=== PATIENT | female | born 1965 | race Caucasian/White ===

== ENCOUNTER 2016-11-09 06:09 | Day surgery (SDC) | payer OTHER ==
[2016-11-07 13:57] VITALS: BMI 31.4
[2016-11-09 06:58] VITALS: BP 113/57; PULSE 68; TEMP 98
[2016-11-09] MEDS ORDERED: ROPIVACAINE HCL 0.5% 30ML VIAL ONE (07:02)
[2016-11-09] MEDS ORDERED: MIDAZOLAM HCL 2 MG/2 ML SINGLE DOSE VIAL ONE ×2 (07:39)
--- NOTE | 2016-11-09 07:47 | HP ---
Admitting History and Physical - Primary Care Physician PCP: Derrek Patterson - Admission Chief Complaint: Left shoulder pain History of Present Illness: 51 year old female with PMHx noted below. C/o chronic left shoulder pain. Here today for elective LEFT shoulder arthroscopy/decompression. 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: Peripheral Neuropathy Cardiovascular: Yes: HTN, Hyperlipdemia Pulmonary: Yes: Asthma Gastrointestinal: Yes: GERD Renal/: Yes: Renal Failure, Hemodialysis Reproductive: Yes: Ectopic (x2) ...LMP: 12/01/14 ...: No Endocrine: Yes: Diabetes Mellitus - Past Surgical History Past Surgical History: Yes: AV Fistula/Graft (LUE), (x3) - Smoking History Smoking history: Current every day smoker Have you smoked in the past 12 months: Yes Aproximately how many cigarettes per day: 6 - Alcohol/Substance Use Hx Alcohol Use: No History of Substance Use: reports: None - Social History ADL: Independent History of Recent Travel: No Home Medications - Allergies Allergies/Adverse Reactions: Allergies Allergy/AdvReac Type Severity Reaction Status Date / Time No Known Drug Allergies Allergy Verified 11/09/16 07:05 - Home Medications Home Medications: Ambulatory Orders Clonidine HCl 0.2 mg PO TID 06/05/14 Hydralazine HCl [Apresoline -] 100 mg PO TID tablet 08/25/15 Lipase/Protease/Amylase [Maximilian Medrano 6,000 Units Capsule] 2 cap PO TIDCM capsule. 08/25/15 Bisacodyl [Dulcolax] 5 mg PO DAILY PRN #20 tablet. 10/27/15 Insulin Sliding Scale [Novolog Vial Sliding Scale -] 1 vial SQ ACHS #100 units 12/31/15 Pantoprazole Sodium [Protonix -] 40 mg PO DAILY #14 tablet.ec 01/31/16 Oxycodone HCl/Acetaminophen [Percocet 5-325 mg Tablet] 1 tab PO Q6H #120 tablet MDD 4 02/29/16 Insulin (Levemir) [Levemir Vial] 30 units SQ HS 11/07/16 Metoclopramide HCl [Reglan] 10 mg PO DAILY PRN 11/07/16 Nifedipine ER [Procardia XL -] 60 mg PO DAILY 07/17/17 Family Disease History - Family Disease History Family Disease History: CA: Father (colon cancer) Review of Systems - Review of Systems Constitutional: reports: No Symptoms Eyes: reports: No Symptoms HENT: reports: No Symptoms Neck: reports: No Symptoms Cardiovascular: reports: No Symptoms Respiratory: reports: Wheezing Gastrointestinal: reports: No Symptoms Genitourinary: reports: No Symptoms Breasts: reports: No Symptoms Reported Musculoskeletal: reports: No Symptoms Integumentary: reports: No Symptoms Neurological: reports: No Symptoms Endocrine: reports: No Symptoms Hematology/Lymphatic: reports: No Symptoms Psychiatric: reports: No Symptoms Physical Examination Vital Signs: Vital Signs Temperature 98.0 F 11/09/16 07:05 Pulse Rate 68 11/09/16 07:05 Respiratory Rate 20 11/09/16 07:05 Blood Pressure 113/57 11/09/16 07:05 O2 Sat by Pulse Oximetry (%) 98 11/09/16 07:01 Constitutional: Yes: Well Nourished, No Distress, Calm Eyes: Yes: WNL, Conjunctiva Clear, EOM Intact HENT: Yes: WNL, Atraumatic, Normocephalic Neck: Yes: WNL, Supple, Trachea Midline Cardiovascular: Yes: WNL, Regular Rate and Rhythm Respiratory: Yes: Wheezes (Expiratory; all mendez) Gastrointestinal: Yes: WNL, Normal Bowel Sounds, Soft Renal/: Yes: WNL Musculoskeletal: Yes: WNL Extremities: Yes: WNL Edema: No Peripheral Pulses WNL: Yes Integumentary: Yes: WNL, Bruising (Note: ecchymosis to lue s/p HD access av fistula) Neurological: Yes: WNL, Alert, Oriented ...Motor Strength: WNL Psychiatric: Yes: WNL, Alert, Oriented Labs: CBC, BMP 11/09/16 06:43 Problem List - Problems (1) Shoulder pain, left Assessment/Plan: PRE-OP for LEFT shoulder arthroscopy with decompression Respiratory called to administer breathing treatment at anesthesia request NPO / IVF Code(s): M25.512 - PAIN IN LEFT SHOULDER (2) Type 1 diabetes mellitus with diabetic nephropathy Code(s): E10.21 - TYPE 1 DIABETES MELLITUS WITH DIABETIC NEPHROPATHY (3) Anemia in chronic kidney disease (CKD) Code(s): N18.9 - CHRONIC KIDNEY DISEASE, UNSPECIFIED D63.1 - ANEMIA IN CHRONIC KIDNEY DISEASE (4) End stage renal disease on dialysis Code(s): N18.6 - END STAGE RENAL DISEASE Z99.2 - DEPENDENCE ON RENAL DIALYSIS
[2016-11-09] MEDS ORDERED: ALBUTEROL SO4 2.5/IPRATROPIUM 0.5 INH SOL 3 ML VIAL.NEB. NEB ONE ×2 (07:59→08:00)
== END 2016-11-09 09:00 | disposition home or self-care (01) ==
LOC: JASU-SURG 06:09
PROVIDERS: ATTEND Orthopaedic Surgery
PROC: 0RJK4ZZ Inspection of Left Shoulder Joint, Percutaneous Endoscopic Approach (ICD-10-PCS; principal; 2016-11-09)
DX: Z53.8 Procedure and treatment not carried out for other reasons (principal)
CPT/HCPCS: 36415; 84132; 94640

== ENCOUNTER 2016-12-14 08:00 | Inpatient (IN) | payer OTHER ==
[2016-12-14 08:08] VITALS: BMI 32.3
--- NOTE | 2016-12-14 09:04 | PDOC ---
History of Present Illness - General History Source: Patient Exam Limitations: No Limitations - History of Present Illness Initial Comments: 12/14/16 09:09 The patient is a 51 year old female, with a significant past medical history of ESRD (M,W,F), GERD, HTN, and DM who presents to the emergency department with elevated for blood sugar. The patient reports being scheduled for an orthopedic right shoulder surgery, and was sent to the ER by after blood work showed elevated blood sugar. The patient reports having dialysis about 2 days ago. She denies any complaints of pain. She denies recent fevers, chills, headache or dizziness. She denies recent nausea, vomit, diarrhea or constipation. She denies recent dysuria, frequency, urgency or hematuria. She denies recent chest pain or shortness of breath. Allergies: NKA Past surgical history: None reported. Social history: Nonsmoker. Denies EtOH use and recreational drug use. Primary Care Physician: Orthopedist: <Bassem Mckeon - Last Filed: 12/14/16 09:09> <Hilary Naqvi - Last Filed: 12/14/16 11:27> <Bety Kumar - Last Filed: 12/14/16 11:51> - General Chief Complaint: Revisit, Lab Variance Stated Complaint: IRREGULAR LAB Time Seen by Provider: 12/14/16 08:27 Past History <Bassem Mckeon - Last Filed: 12/14/16 09:09> <Hilary Naqvi - Last Filed: 12/14/16 11:27> - Past Medical History Anemia: Yes Asthma: Yes Cancer: No Cardiac Disorders: No CVA: No COPD: No CHF: No Dementia: No Diabetes: Yes Dialysis: Yes (m,w,f) GI Disorders: Yes (gerd gastroparesis) Disorders: No HTN: Yes Hypercholesterolemia: Yes Liver Disease: No Suicide Attempt (Hx): No Seizures: No Thyroid Disease: No - Surgical History Orthopedic Surgery: Yes (hand sx) - Immunization History Immunization Up to Date: Yes - Psycho/Social/Smoking Cessation Hx Anxiety: No Suicidal Ideation: No Smoking Status: No Smoking History: Current some day smoker Have you smoked in the past 12 months: Yes Number of Cigarettes Smoked Daily: 6 Cigars Per Day: 0 Information on smoking cessation initiated: No 'Breaking Loose' booklet given: 11/07/16 Hx Alcohol Use: No Drug/Substance Use Hx: No Substance Use Type: None Hx Substance Use Treatment: No <VirgilioelizabethBety - Last Filed: 12/14/16 11:51> - Past Medical History Allergies/Adverse Reactions: Allergies Allergy/AdvReac Type Severity Reaction Status Date / Time No Known Drug Allergies Allergy Verified 12/14/16 08:04 Home Medications: Ambulatory Orders Clonidine HCl 0.2 mg PO TID 06/05/14 Hydralazine HCl [Apresoline -] 100 mg PO TID tablet 08/25/15 Lipase/Protease/Amylase [Maximilian Medrano 6,000 Units Capsule] 2 cap PO TIDCM capsule. 08/25/15 Bisacodyl [Dulcolax] 5 mg PO DAILY PRN #20 tablet. 10/27/15 Insulin Sliding Scale [Novolog Vial Sliding Scale -] 1 vial SQ ACHS #100 units 12/31/15 Pantoprazole Sodium [Protonix -] 40 mg PO DAILY #14 tablet.ec 01/31/16 Oxycodone HCl/Acetaminophen [Percocet 5-325 mg Tablet] 1 tab PO Q6H #120 tablet MDD 4 02/29/16 Insulin (Levemir) [Levemir Vial] 30 units SQ HS 11/07/16 Metoclopramide HCl [Reglan] 10 mg PO DAILY PRN 11/07/16 Nifedipine ER [Procardia XL -] 60 mg PO DAILY 11/07/16 Review of Systems - Review of Systems Able to Perform ROS?: Yes Comments:: 12/14/16 09:09 GENERAL/CONSTITUTIONAL: No fever or chills. No weakness. HEAD, EYES, EARS, NOSE AND THROAT: No change in vision. No ear pain or discharge. No sore throat. CARDIOVASCULAR: No chest pain or shortness of breath. RESPIRATORY: No cough, wheezing, or hemoptysis. GASTROINTESTINAL: No nausea, vomiting, diarrhea or constipation. GENITOURINARY: No dysuria, frequency, or change in urination. MUSCULOSKELETAL: No joint or muscle swelling or pain. No neck or back pain. SKIN: No rash NEUROLOGIC: No headache, vertigo, loss of consciousness, or change in strength/ sensation. ENDOCRINE: No increased thirst. No abnormal weight change. HEMATOLOGIC/LYMPHATIC: No anemia, easy bleeding, or history of blood clots. ALLERGIC/IMMUNOLOGIC: No hives or skin allergy. <Bassem Mckeon - Last Filed: 12/14/16 09:09> *Physical Exam - Vital Signs Last Vital Signs Temp Pulse Resp BP Pulse Ox 98.1 F 72 20 155/81 98 12/14/16 08:04 12/14/16 08:04 12/14/16 08:04 12/14/16 08:04 12/14/16 08:04 - Physical Exam Comments: 12/14/16 09:10 GENERAL: Awake, alert, and fully oriented, drowsy but arousable. HEAD: No signs of trauma EYES: PERRLA, EOMI, sclera anicteric, conjunctiva clear ENT: Auricles normal inspection, hearing grossly normal, nares patent, oropharynx clear without exudates. Moist mucosa NECK: Normal ROM, supple, no lymphadenopathy, JVD, or masses LUNGS: Breath sounds equal, clear to auscultation bilaterally. No wheezes, and no crackles HEART: Regular rate and rhythm, normal S1 and S2, no murmurs, rubs or gallops ABDOMEN: Soft, nontender, normoactive bowel sounds. No guarding, no rebound. No masses EXTREMITIES: LUE fistula good thrill no erythema. Normal range of motion, no edema. No clubbing or cyanosis. No cords, erythema, or tenderness NEUROLOGICAL: Cranial nerves II through XII grossly intact. Normal speech, normal gait SKIN: Warm, Dry, normal turgor, no rashes or lesions noted. <Bassem Mckeon - Last Filed: 12/14/16 09:09> - Vital Signs Last Vital Signs Temp Pulse Resp BP Pulse Ox 98.1 F 72 20 155/81 98 12/14/16 08:04 12/14/16 08:04 12/14/16 08:04 12/14/16 08:04 12/14/16 08:04 <Hilary Naqvi - Last Filed: 12/14/16 11:27> - Vital Signs Last Vital Signs Temp Pulse Resp BP Pulse Ox 98.1 F 72 20 155/81 98 12/14/16 08:04 12/14/16 08:04 12/14/16 08:04 12/14/16 08:04 12/14/16 08:04 <Bety Kumar - Last Filed: 12/14/16 11:51> ED Treatment Course - LABORATORY CBC & Chemistry Diagram: 12/14/16 09:23 12/14/16 09:23 - ADDITIONAL ORDERS Additional order review: Laboratory Results 12/14/16 12/14/16 09:23 09:15 VBG pH 7.29 L POC VBG pCO2 51.4 D POC VBG pO2 42.2 Mixed VBG HCO3 23.7 Sodium 133 L Potassium 7.6 H* Chloride 100 Carbon Dioxide 24 Anion Gap 9 BUN 59 H Creatinine 7.6 H* D Creat Clearance w eGFR 5.63 Random Glucose 332 H* D Calcium 8.6 Total Bilirubin 0.5 AST 26 D ALT 60 D Alkaline Phosphatase 223 H D Total Protein 7.4 Albumin 3.6 12/14/16 09:23 RBC 2.62 L D MCV 97.6 H MCHC 32.5 RDW 14.8 D MPV 8.7 Neutrophils % 84.4 H Lymphocytes % 8.6 D Monocytes % 6.4 Eosinophils % 0.1 Basophils % 0.5 - RADIOLOGY Radiology Studies Ordered: 12/14/16 10:37 Chest X-ray Read and reviewed by Dr. Naylor Radiograph Interpretation: 12/14/16 10:38 Cardiomegaly and mild increased interstitial lung markings which may reflect CHF. <Hilary Naqvi - Last Filed: 12/14/16 11:27> - LABORATORY CBC & Chemistry Diagram: 12/14/16 09:23 12/14/16 09:23 - RADIOLOGY Radiology Studies Ordered: Category Date Time Status CHEST PA & LAT [RAD] Stat Radiology 12/14/16 08:56 Ordered <Bety Kumar - Last Filed: 12/14/16 11:51> Medical Decision Making - Medical Decision Making 12/14/16 10:43 Placed call to patient's sterilization technician, Dr. Barrios. Case discussed, Dr. Barrios requests we page Dr. Arredondo. Dr. Arredondo paged overhead in hospital. Awaiting callback. 12/14/16 10:57 Second overhead page to Dr. Arredondo. Awaiting callback. 12/14/16 11:12 Left message with patient's surgeon, Dr. Ray, with OR team. Awaiting callback. 12/14/16 11:27 Third overhead page to Dr. Arredondo. Awaiting callback. If no callback, will try cell#. <Hilary Naqvi - Last Filed: 12/14/16 11:27> - Medical Decision Making 12/14/16 08:56 51 yo F h/o DM HTN ESRD ( dialysis MWF ) scheduled for shoulder surgery today with dr ray, found to have high potassium and and high sugars. no current complaints. no n/v no f/c no sob no cp last dialysis was 2 days ago., due for dialysis today. on exam pt drowsy but arousable. lungs clear heart regular. abd soft Nt ext wwp. left upper fistula bruit. plan: differerential: hyperkalemia, hemolysis. pt felecia needs dialysis today. will d/w dr ray ( ortho surgeon) and pt sterilization technician 12/14/16 09:29 <Bety Kumar - Last Filed: 12/14/16 11:51> *DC/Admit/Observation/Transfer - Attestations Scribe Attestion: 12/14/16 09:10 Documentation prepared by Bassem Mckeon, acting as biomedical equipment support specialist for Bety Kumar MD. <Bassem Mckeon - Last Filed: 12/14/16 09:09> - Attestations Scribe Attestion: 12/14/16 10:40 Documentation prepared by Hilary Naqvi, acting as biomedical equipment support specialist for Bety Kumar MD. <Hilary Naqvi - Last Filed: 12/14/16 11:27> - Discharge Dispostion Admit: Yes <Bety Kumar - Last Filed: 12/14/16 11:51> Diagnosis at time of Disposition: Hyperkalemia, Hyperglycemia, End-stage renal disease
[2016-12-14 09:34] LABS: BASOPHIL 0.5 % (0-2.0); EOSINOPHIL 0.1 % (0-4.5); MCH 31.7 pg (25.7-33.7); MCHC 32.5 g/dl (32.0-36.0); MEAN CELL VOLUME 97.6 fl (80-96); MEAN PLT VOLUME 8.7 fl (7.5-11.1); NEUTROPHILS 84.4 % (42.8-82.8); PLATELET COUNT 218 K/MM3 (134-434); RDW 14.8 % (11.6-15.6); WHITE BLOOD COUNT 8.3 K/mm3 (4.0-10.0)
[2016-12-14 09:40] LABS: VENOUS BLOOD GAS HCO3 23.7 meq/L (19-25)
[2016-12-14 09:45] LABS: VENOUS PH 7.29 (7.32-7.42)
[2016-12-14 10:00] LABS: ALBUMIN 3.6 g/dl (3.4-5.0); ANION GAP 9 (8-16); BILIRUBIN,TOTAL 0.5 mg/dL (0.2-1.0); CALCIUM 8.6 mg/dL (8.5-10.1); CO2 24 mmol/L (21-32); SGOT/AST 26 U/L (15-37); SGPT/ALT 60 U/L (12-78); TOT PROT 7.4 g/dl (6.4-8.2)
[2016-12-14 10:06] LABS: ALK PHOS 223 U/L (45-117)
--- NOTE | 2016-12-14 10:06 | EKG ---
Test Reason : Blood Pressure : / mmHG Vent. Rate : 073 BPM Atrial Rate : 073 BPM P-R Int : 174 ms QRS Dur : 110 ms QT Int : 412 ms P-R-T Axes : 043 017 063 degrees QTc Int : 453 ms NORMAL SINUS RHYTHM CANNOT RULE OUT ANTERIOR INFARCT , AGE UNDETERMINED ABNORMAL ECG WHEN COMPARED WITH ECG OF 28-DEC-2015 06:38, VENT. RATE HAS DECREASED BY 36 BPM QRS DURATION HAS INCREASED NONSPECIFIC T WAVE ABNORMALITY NO LONGER EVIDENT IN LATERAL LEADS Confirmed by DENISSE GLASGOW MD ([id number]) on 12/14/2016 10:05:28 AM Referred By: Confirmed By:DENISSE GLASGOW MD
[2016-12-14 10:19] LABS: GLUCOSE,RANDOM 332 mg/dL (74-106)
[2016-12-14 10:20] LABS: CREATININE 7.6 mg/dL (0.55-1.02)
[2016-12-14] MEDS ORDERED: INSULIN REGULAR HUMAN 100 UNITS/ML *VIAL IVPUSH ONE (10:20)
[2016-12-14] MEDS ORDERED: CALCIUM GLUCONATE 10% - 1,000 MG/10 ML VIAL IVPB ONE (10:38)
[2016-12-14] MEDS ORDERED: ALBUTEROL SO4 0.083% IH SOL 2.5 MG/3 ML VIAL.NEB. NEB ONE ×2 (10:38→10:45)
[2016-12-14] MEDS ORDERED: INSULIN REGULAR HUMAN 100 UNITS/ML *VIAL ONE (10:45)
[2016-12-14] MEDS ORDERED: CALCIUM GLUCONATE 10% - 1,000 MG/10 ML VIAL ONE (10:45)
--- NOTE | 2016-12-14 12:14 | HP ---
CHIEF COMPLAINT: Elevated blood sugar and potassium PCP: Dr. Patterson HISTORY OF PRESENT ILLNESS: This is a 51 year old female with PMHx of HTN, IDDM, ESRD (HD M,W,F), diabetic gastroparesis who presented to the ED per Dr. Rya for hyperglycemia and hyperkalemia. Today is a dialysis day for the patient. The patient was scheduled for left shoulder elective arthoscopy/decompression this morning and with labs prior to surgery it was noted that the patient had a sugar of 409 and a potassium of 6.8. The patient came to the ED and was found to have a potassium of 7.6 and Cr of 7.6. Patient was lethargic, however had no complaints at the time. Her EKG was normal sinus rhythm with an increase in qrs interval. No peaked t-waves seem. Recent Travel: refusing to answer PAST MEDICAL HISTORY: as above PAST SURGICAL HISTORY: refusing to answer Social History: Smoking: denies Alcohol: denies Drugs: denies Family History: refusing to answer Allergies No Known Drug Allergies Allergy (Verified 12/14/16 08:04) HOME MEDICATIONS: Home Medications Medication Instructions Recorded Ammonium Lactate Cream [Lac-Hydrin] 1 applic TP BID 12/14/16 Baclofen 10 mg PO DAILY 12/14/16 Bisacodyl [Dulcolax -] 5 mg PO DAILY 12/14/16 Calcium Acetate 667 mg PO AC 12/14/16 Clonidine HCl [Catapres -] 0.4 mg PO TID 12/14/16 Dexlansoprazole [Dexilant] 60 mg PO DAILY 12/14/16 Gabapentin 600 mg PO BID 12/14/16 Hydralazine HCl 100 mg PO TID 12/14/16 Magnesium Oxide [Magnesium] 400 mg PO MOWEFR 12/14/16 Melatonin 3 mg PO HS 12/14/16 Metoclopramide HCl [Reglan -] 10 mg PO ASDIR 12/14/16 Nifedipine [Nifedipine ER] 60 mg PO DAILY 12/14/16 Quetiapine Fumarate [Seroquel -] 25 mg PO HS 12/14/16 Ramipril [Altace] 5 mg PO DAILY 12/14/16 Ranitidine [Zantac -] 150 mg PO DAILY 12/14/16 Sennosides [Senna] 2 tab PO HS 12/14/16 Vitamin E 400 unit PO DAILY 12/14/16 REVIEW OF SYSTEMS CONSTITUTIONAL: Absent: fever, chills, diaphoresis, generalized weakness, malaise, loss of appetite, weight change HEENT: Absent: rhinorrhea, nasal congestion, throat pain, throat swelling, difficulty swallowing, mouth swelling, ear pain, eye pain, visual changes CARDIOVASCULAR: Absent: chest pain, syncope, palpitations, irregular heart rate , lightheadedness, peripheral edema RESPIRATORY: Absent: cough, shortness of breath, dyspnea with exertion, orthopnea, wheezing, stridor, hemoptysis GASTROINTESTINAL:Absent: abdominal pain, abdominal distension, nausea, vomiting , diarrhea, constipation, melena, hematochezia GENITOURINARY: Absent: dysuria, frequency, urgency, hesitancy, hematuria, flank pain, genital pain MUSCULOSKELETAL: Absent: myalgia, arthralgia, joint swelling, back pain, neck pain SKIN: Absent: rash, itching, pallor HEMATOLOGIC/IMMUNOLOGIC: Absent: easy bleeding, easy bruising, lymphadenopathy, frequent infections ENDOCRINE:Absent: unexplained weight gain, unexplained weight loss, heat intolerance, cold intolerance NEUROLOGIC: Absent: headache, focal weakness or paresthesias, dizziness, unsteady gait, seizure, mental status changes, bladder or bowel incontinence PSYCHIATRIC: Absent: anxiety, depression, suicidal or homicidal ideation, hallucinations. PHYSICAL EXAMINATION GENERAL: Awake, alert, in no acute distress. HEAD: Normal with no signs of trauma. EYES: Pupils equal, round and reactive to light EARS, NOSE, THROAT: Ears normal, nares patent. Moist mucous membranes. NECK: Normal range of motion LUNGS: Breath sounds equal, clear to auscultation bilaterally. No wheezes, and no crackles. No accessory muscle use. HEART: Regular rate and rhythm, normal S1 and S2 ABDOMEN: Refused MUSCULOSKELETAL: Normal range of motion at all joints. UPPER EXTREMITIES: Refused LOWER EXTREMITIES: Refused NEUROLOGICAL: Refused PSYCHIATRIC: Good eye contact. Appropriate mood and affect. SKIN: Warm, dry, normal turgor, no rashes or lesions noted, normal capillary refill. CBCD WBC 8.3 K/mm3 (4.0-10.0) 12/14/16 09:23 RBC 2.62 M/mm3 (3.60-5.2) L D 12/14/16 09:23 Hgb 8.3 GM/dL (10.7-15.3) L D 12/14/16 09:23 Hct 25.6 % (32.4-45.2) L D 12/14/16 09:23 MCV 97.6 fl (80-96) H 12/14/16 09:23 MCHC 32.5 g/dl (32.0-36.0) 12/14/16 09:23 RDW 14.8 % (11.6-15.6) D 12/14/16 09:23 Plt Count 218 K/MM3 (134-434) 12/14/16 09:23 MPV 8.7 fl (7.5-11.1) 12/14/16 09:23 CMP Sodium 133 mmol/L (136-145) L 12/14/16 09:23 Potassium 7.6 mmol/L (3.5-5.1) H* 12/14/16 09:23 Chloride 100 mmol/L (98-107) 12/14/16 09:23 Carbon Dioxide 24 mmol/L (21-32) 12/14/16 09:23 Anion Gap 9 (8-16) 12/14/16 09:23 BUN 59 mg/dL (7-18) H 12/14/16 09:23 Creatinine 7.6 mg/dL (0.55-1.02) H* D 12/14/16 09:23 Creat Clearance w eGFR 5.63 (>60) 12/14/16 09:23 Random Glucose 332 mg/dL (74-106) H* D 12/14/16 09:23 Calcium 8.6 mg/dL (8.5-10.1) 12/14/16 09:23 Total Bilirubin 0.5 mg/dL (0.2-1.0) 12/14/16 09:23 AST 26 U/L (15-37) D 12/14/16 09:23 ALT 60 U/L (12-78) D 12/14/16 09:23 Alkaline Phosphatase 223 U/L (45-117) H D 12/14/16 09:23 Total Protein 7.4 g/dl (6.4-8.2) 12/14/16 09:23 Albumin 3.6 g/dl (3.4-5.0) 12/14/16 09:23 Assessment: This is a 51 year old female with PMHx of HTN, IDDM, ESRD (HD M,W,F) , diabetic gastroparesis who presented to the ED per Dr. Ray for hyperglycemia and hyperkalemia. Plan: 1) Hyperkalemia, elevated Cr - Received Regular insulin, calcium gluconate, albuterol - Urgent HD, tolerated it well - Monitor K - Appreciate nephrology consult 2) Ortho: - Was for left shoulder arthoscopy today - F/u ortho consult for possible rescheduling of surgery 3) Endocrine: IDDM - Unknown Levemir dose - BGM ACHS - ISS ACHS 4) Cardiology: HTN - Hydralazine 100mg po tid - Clonidine 0.4mg po tid - Nifedipine 60mg po daily 5) F/E/N: - Monitor electrolytes - Renal diet 6) Prophylaxis: - Hold all chemical DVT prophylaxis for possible surgery - OOB ambulating 7) Dispo: - Requires continued inpatient care CODE STATUS: FULL CODE Visit type - Emergency Visit Emergency Visit: Yes ED Registration Date: 12/14/16 Care time: The patient presented to the Emergency Department on the above date and was hospitalized for further evaluation of their emergent condition. - New Patient This patient is new to me today: Yes Date on this admission: 12/14/16 - Critical Care Critical Care patient: No
--- NOTE | 2016-12-14 13:48 | CONSULT ---
Consult Consult Specialty:: Nephrology Reason for Consultation:: ESRD and hyperkalemia - History of Present Illness Chief Complaint: pt presents to he ER for hyperglycemia History of Present Illness: Pt is a 51 year old female with pmhx of ESRD, DM and HTN who presents to the ER with hyperglycemia. She was scheduled for outpt orthopedic surgery today. She had bloodwork done in the ER and was found to be hyperkalemic. She denies chest pain or palpitations. She denies shortness of breath. She is awake and alert. She is agitated as she is NPO. I was called to evaluate her for HD. Today is her dialysis day. 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: Yes: Peripheral Neuropathy Cardio/Vascular: Yes: HTN, Hyperlipdemia Pulmonary: Yes: Asthma Gastrointestinal: Yes: GERD Renal/: Yes: Renal Failure, Hemodialysis ...LMP: 12/01/14 Endocrine: Yes: Diabetes Mellitus - Past Surgical History Past Surgical History: Yes: AV Fistula/Graft (LUE), (x3) - Alcohol/Substance Use Hx Alcohol Use: No History of Substance Use: reports: None - Smoking History Smoking history: Current every day smoker Have you smoked in the past 12 months: Yes Aproximately how many cigarettes per day: 6 - Social History ADL: Independent History of Recent Travel: No Home Medications - Allergies Allergies/Adverse Reactions: Allergies Allergy/AdvReac Type Severity Reaction Status Date / Time No Known Drug Allergies Allergy Verified 12/14/16 08:04 - Home Medications Home Medications: Ambulatory Orders RX: Clonidine HCl 0.2 mg PO TID 06/05/14 RX: Hydralazine HCl [Apresoline -] 100 mg PO TID tablet 08/25/15 RX: Lipase/Protease/Amylase [Maximilian Medrano 6,000 Units Capsule] 2 cap PO TIDCM capsule. 08/25/15 RX: Bisacodyl [Dulcolax] 5 mg PO DAILY PRN #20 tablet. 10/27/15 RX: Insulin Sliding Scale [Novolog Vial Sliding Scale -] 1 vial SQ ACHS #100 units 12/31/15 RX: Pantoprazole Sodium [Protonix -] 40 mg PO DAILY #14 tablet.ec 01/31/16 Oxycodone HCl/Acetaminophen [Percocet 5-325 mg Tablet] 1 tab PO Q6H #120 tablet MDD 4 02/29/16 RX: Insulin (Levemir) [Levemir Vial] 30 units SQ HS 11/07/16 RX: Metoclopramide HCl [Reglan] 10 mg PO DAILY PRN 11/07/16 RX: Nifedipine ER [Procardia XL -] 60 mg PO DAILY 11/07/16 Family Disease History - Family Disease History Family Disease History: CA: Father (colon cancer) Review of Systems - Review of Systems Constitutional: reports: No Symptoms Eyes: reports: No Symptoms HENT: reports: No Symptoms Neck: reports: No Symptoms Cardiovascular: reports: No Symptoms Respiratory: reports: No Symptoms Gastrointestinal: reports: No Symptoms Genitourinary: reports: No Symptoms Musculoskeletal: reports: Other (shoulder pain) Neurological: reports: No Symptoms Endocrine: reports: No Symptoms Hematology/Lymphatic: reports: No Symptoms Physical Exam Vital Signs: Vital Signs Temperature 97.4 F L 12/14/16 12:40 Pulse Rate 69 12/14/16 13:11 Respiratory Rate 18 12/14/16 13:11 Blood Pressure 141/82 12/14/16 13:11 O2 Sat by Pulse Oximetry (%) 97 12/14/16 12:29 Constitutional: Yes: Calm Eyes: Yes: Conjunctiva Clear HENT: Yes: Atraumatic Neck: Yes: Supple Cardiovascular: Yes: S1, S2 Respiratory: Yes: CTA Bilaterally Gastrointestinal: Yes: Soft Renal/: Yes: WNL Musculoskeletal: Yes: Other (shoulder pain) Edema: Yes Edema: LLE: 1+, RLE: 1+ Neurological: Yes: Oriented Psychiatric: Yes: Oriented Labs: Laboratory Tests 12/14/16 12/14/16 12/14/16 09:23 09:23 09:23 Hgb 8.3 L D Sodium 133 L Potassium 7.6 H* Chloride 100 Carbon Dioxide 24 Anion Gap 9 BUN 59 H Creatinine 7.6 H* D Creat Clearance w eGFR 5.63 Random Glucose 332 H* D Acetone, Qual Negative L Imaging - Results Chest X-ray: Report Reviewed Problem List - Problems (1) End stage kidney disease Code(s): N18.6 - END STAGE RENAL DISEASE (2) Hyperglycemia Code(s): R73.9 - HYPERGLYCEMIA, UNSPECIFIED (3) Hyperkalemia Code(s): E87.5 - HYPERKALEMIA (4) Anemia in chronic kidney disease (CKD) Code(s): N18.9 - CHRONIC KIDNEY DISEASE, UNSPECIFIED D63.1 - ANEMIA IN CHRONIC KIDNEY DISEASE (5) HTN (hypertension) Code(s): I10 - ESSENTIAL (PRIMARY) HYPERTENSION Qualifiers: Hypertension type: essential hypertension Qualified Code(s): I10 - Essential (primary) hypertension Assessment/Plan Impression 1. ESRD 2. DM uncontrolled 3. HTN 4. gastroparesis 5. hyperkalemia 6. anemia 7. peripheral neuropathy Plan - arranged for urgent HD - pt is currently on machine - cxr reviewed, will UF volume - pt is insisting on eating, will likely have to reschedule surgery. Call put out to ortho - renal diet - smoking cessation - discussed with ER - discussed with medical team - 1999 heparin, 2 k bath - will hold heparin on HD today for possible surgery
[2016-12-14] MEDS ORDERED: EPOETIN ALFA 3,000 UNIT/1 ML ML IVPUSH ONE (14:30)
[2016-12-14] MEDS ORDERED: PARICALCITOL 5 MCG/ML VIAL IVPUSH ONE (14:30)
[2016-12-14] MEDS ORDERED: PATIENT'S OWN MEDICATION (NON-FORMULARY) (Melatonin [Melatonin] 3 MG) PO SCH (15:30)
[2016-12-14] MEDS ORDERED: PATIENT'S OWN MEDICATION (NON-FORMULARY) (Nifedipine [Nifedipine Er] 60 MG) PO SCH (15:30)
[2016-12-14] MEDS ORDERED: RANITIDINE HCL 150 MG TABLET (FP) PO SCH (15:30)
[2016-12-14] MEDS ORDERED: PATIENT'S OWN MEDICATION (NON-FORMULARY) (Ammonium Lactate Cream 1 APPLIC) TP SCH (15:30)
[2016-12-14] MEDS ORDERED: PATIENT'S OWN MEDICATION (NON-FORMULARY) (Dexlansoprazole [Dexilant] 60 MG) PO SCH (15:30)
[2016-12-14] MEDS ORDERED: CLONIDINE HCL PO SCH (15:30)
[2016-12-14] MEDS ORDERED: GABAPENTIN 300 MG CAPSULE (FP) PO SCH (15:30)
[2016-12-14] MEDS ORDERED: MAGNESIUM OXIDE 400 MG TABLET (FP) PO SCH ×2 (15:30→17:15)
[2016-12-14] MEDS ORDERED: BACLOFEN 10 MG TABLET (FP) PO SCH (15:30)
[2016-12-14] MEDS ORDERED: PATIENT'S OWN MEDICATION (NON-FORMULARY) (Calcium Acetate [Calcium Acetate] 667 MG) PO SCH (15:30)
[2016-12-14] MEDS ORDERED: METOCLOPRAMIDE HCL 10 MG TABLET (FP) PO SCH (15:30)
[2016-12-14] MEDS ORDERED: PATIENT'S OWN MEDICATION (NON-FORMULARY) (Hydralazine Hcl [Hydralazine Hcl] 100 MG) PO SCH (15:30)
[2016-12-14 17:04] LABS: ANION GAP 8 (8-16); CALCIUM 8.2 mg/dL (8.5-10.1); CO2 30 mmol/L (21-32); CREATININE 3.1 mg/dL (0.55-1.02)
[2016-12-14] MEDS ORDERED: BISACODYL 10 MG SUPP.RECT RC PRN (17:06)
[2016-12-14 17:13] LABS: GLUCOSE,RANDOM 324 mg/dL (74-106)
[2016-12-14] MEDS ORDERED: INSULIN (NOVOLOG) ASPART 100 UNITS/ML 10ML VIAL ONE ×2 (17:29→19:11)
[2016-12-14] MEDS: INSULIN SLIDING SCALE (NOVOLOG) 1 VIAL SQ SCH ×2 (17:36→23:32)
[2016-12-14] MEDS: CALCIUM ACETATE 667 MG CAPSULE (FP) PO SCH (17:41)
[2016-12-14] MEDS ORDERED: PT OWN MED DRAWER 7, Y5N ONE (22:25)
[2016-12-14] MEDS: cloNIDine HCL 0.1 MG TABLET PO SCH (22:41)
[2016-12-14] MEDS: GABAPENTIN 300 MG CAPSULE (FP) PO SCH (22:41)
[2016-12-14] MEDS: SENNOSIDES 8.6MG TABLET (FP) PO SCH (22:42)
[2016-12-14] MEDS: hydrALAZINE HCL 50 MG TABLET (FP) PO SCH (22:43)
[2016-12-14] MEDS: MELATONIN 1 MG TABLET PO SCH (22:44)
[2016-12-14] MEDS: QUEtiapine FUMARATE 25 MG TABLET (FP) PO SCH (22:44)
[2016-12-14] MEDS ORDERED: INSULIN (NOVOLOG) ASPART 100 UNITS/ML 10ML VIAL SQ ONE (22:52)
[2016-12-15] MEDS ORDERED: INSULIN DETEMIR 100 UNITS/ML MDV SQ SCH ×4 (00:30→19:13)
[2016-12-15] MEDS: cloNIDine HCL 0.1 MG TABLET PO SCH ×3 (06:42→22:03)
[2016-12-15] MEDS: hydrALAZINE HCL 50 MG TABLET (FP) PO SCH ×3 (06:42→22:02)
[2016-12-15] MEDS: INSULIN SLIDING SCALE (NOVOLOG) 1 VIAL SQ SCH ×4 (06:45→22:05)
[2016-12-15 07:43] LABS: BASOPHIL 0.7 % (0-2.0); EOSINOPHIL 0.5 % (0-4.5); MCHC 32.8 g/dl (32.0-36.0); MEAN CELL VOLUME 97.6 fl (80-96); NEUTROPHILS 80.6 % (42.8-82.8); PLATELET COUNT 215 K/MM3 (134-434); WHITE BLOOD COUNT 10.3 K/mm3 (4.0-10.0)
[2016-12-15] MEDS: CALCIUM ACETATE 667 MG CAPSULE (FP) PO SCH ×4 (08:00→17:39)
[2016-12-15 08:03] LABS: ANION GAP 8 (8-16); CALCIUM 8.1 mg/dL (8.5-10.1); CO2 30 mmol/L (21-32); CREATININE 5.6 mg/dL (0.55-1.02)
[2016-12-15 08:22] LABS: GLUCOSE,RANDOM 311 mg/dL (74-106)
--- NOTE | 2016-12-15 08:43 | CONSULT ---
Consult - text type - Consultation Consultation Note: FULL CONSULT DICTATED IMP: RIGHT ROTATOR CUFF TEAR. PLANNED SURGERY CANCELLED DUE TO HYPERGLYCEMIA AND HYPERKALEMIA PLAN: MEDICAL OPTIMIZATION. WE WILL RESCHEDULE THE PATIENT FOR RC SURGERY AN OUTPATIENT
--- NOTE | 2016-12-15 09:14 | CONS ---
DATE OF CONSULTATION: 12/15/2016 Patient is a 51-year-old female well known to me who was supposed to have a right rotator cuff repair surgery yesterday. Upon preadmission to the surgery, patient was found to have a serum glucose of greater than 400 and a markedly elevated potassium. Patients operative intervention was cancelled, and patient was sent directly to the emergency room where she was eventually admitted to the hospital and now is in the hospital. PHYSICAL EXAMINATION: The shoulder is still bothering with marked weakness, but no evidence of any infection or erythema. No swelling. Otherwise, neurovascularly intact. IMPRESSION: Rotator cuff tear with surgery cancelled secondary to hyperglycemia and hyperkalemia. Patients medical condition will be optimized, discharged. We can schedule her surgery electively as an outpatient. LILIYA PARADA M.D. [id number]
[2016-12-15] MEDS ORDERED: PT OWN MED DRAWER 7, Y5N ONE (09:48)
[2016-12-15] MEDS: RAMIPRIL 5 MG CAPSULE (FP) PO SCH (09:51)
[2016-12-15] MEDS: NIFEdipine E.R 60 MG TABLET (UD) PO SCH (09:52)
[2016-12-15] MEDS: PANTOPRAZOLE 40 MG TABLET (FP) PO SCH (09:52)
[2016-12-15] MEDS: BACLOFEN 10 MG TABLET (FP) PO SCH (09:52)
[2016-12-15] MEDS: GABAPENTIN 300 MG CAPSULE (FP) PO SCH (09:52)
[2016-12-15] MEDS: RANITIDINE HCL 150 MG TABLET (FP) PO SCH (09:52)
[2016-12-15] MEDS: VITAMIN E 400 INTERNATIONAL-UNITS CAPSULE (FP) PO SCH (09:53)
[2016-12-15] MEDS ORDERED: HEPARIN NA (PORCINE) 5,000 UNITS/ML 1ML VIAL IVPUSH ONE (10:22)
--- NOTE | 2016-12-15 12:01 | PN ---
Physical Exam: SUBJECTIVE: Patient seen and examined. She is complaining of fatigue and L hand aches along with feeling tired. She also has trembling, which is chronic OBJECTIVE: Vital Signs Period Temp Pulse Resp BP Sys/Rivera Pulse Ox Last 24 Hr 97.4 F-99.0 F 67-89 18-20 113-174/63-93 95-99 PE Neuro: alert awake, cn 2-12intact Pulm: CTAB CV: s1 s2 rrr no mrg Abd: s nt nd +bs : cloudy yellow, foul smelling Ext: LUE AVF + thrill CBCD WBC 10.3 K/mm3 (4.0-10.0) H 12/15/16 06:00 RBC 2.59 M/mm3 (3.60-5.2) L 12/15/16 06:00 Hgb 8.3 GM/dL (10.7-15.3) L 12/15/16 06:00 Hct 25.3 % (32.4-45.2) L 12/15/16 06:00 MCV 97.6 fl (80-96) H 12/15/16 06:00 MCHC 32.8 g/dl (32.0-36.0) 12/15/16 06:00 RDW 15.0 % (11.6-15.6) 12/15/16 06:00 Plt Count 215 K/MM3 (134-434) 12/15/16 06:00 MPV 9.0 fl (7.5-11.1) 12/15/16 06:00 CMP Sodium 138 mmol/L (136-145) 12/15/16 06:00 Potassium 6.1 mmol/L (3.5-5.1) H* D 12/15/16 06:00 Chloride 100 mmol/L (98-107) 12/15/16 06:00 Carbon Dioxide 30 mmol/L (21-32) 12/15/16 06:00 Anion Gap 8 (8-16) 12/15/16 06:00 BUN 59 mg/dL (7-18) H D 12/15/16 06:00 Creatinine 5.6 mg/dL (0.55-1.02) H D 12/15/16 06:00 Creat Clearance w eGFR 5.63 (>60) 12/14/16 09:23 Calcium 8.1 mg/dL (8.5-10.1) L 12/15/16 06:00 Total Bilirubin 0.5 mg/dL (0.2-1.0) 12/14/16 09:23 AST 26 U/L (15-37) D 12/14/16 09:23 ALT 60 U/L (12-78) D 12/14/16 09:23 Alkaline Phosphatase 223 U/L (45-117) H D 12/14/16 09:23 Total Protein 7.4 g/dl (6.4-8.2) 12/14/16 09:23 Albumin 3.6 g/dl (3.4-5.0) 12/14/16 09:23 12/14/16 12:45 Hepatitis C Antibody 0.1 Active Medications Generic Name Dose Route Start Last Admin Trade Name Freq PRN Reason Stop Dose Admin Baclofen 10 mg 12/15/16 10:00 12/15/16 09:52 Lioresal - PO 10 mg DAILY [facility]AS[facility]Z Administration Bisacodyl 10 mg 12/14/16 17:06 Dulcolax Suppository - RC DAILY PRN CONSTIPATION Calcium Acetate 667 mg 12/14/16 17:30 12/15/16 08:00 Phoslo - PO 667 mg TIDCM [facility]AS[facility]Z Administration Clonidine 0.4 mg 12/14/16 22:00 12/15/16 06:42 Catapres - PO 0.4 mg TID VASQUEZ Administration Hydralazine HCl 100 mg 12/14/16 22:00 12/15/16 06:42 Apresoline - PO 100 mg TID [facility]ASQUEZ Administration Insulin Aspart 1 vial 12/14/16 16:30 12/15/16 06:45 Novolog Vial Sliding Scale - SQ 8 units ACHS [facility]Z Administration Protocol Insulin Detemir 10 units 12/15/16 00:30 12/15/16 00:32 Levemir Vial SQ 10 units HS [facility]Z Administration Insulin Detemir 25 units 12/15/16 07:00 12/15/16 06:45 Levemir Vial SQ 25 units AM [facility]ASQUEZ Administration Magnesium Oxide 400 mg 12/14/16 17:15 12/14/16 17:42 Mag-Ox - PO 400 mg MOWEFR [facility]Z Administration Melatonin 3 mg 12/14/16 22:00 12/14/16 22:44 Melatonin PO 3 mg HS [facility]Z Administration Nifedipine 60 mg 12/15/16 10:00 12/15/16 09:52 Procardia Xl - PO 60 mg DAILY [facility]AS[facility]Z Administration Pantoprazole Sodium 40 mg 12/15/16 10:00 12/15/16 09:52 Protonix - PO 40 mg DAILY [facility]ASQUEZ Administration Quetiapine Fumarate 25 mg 12/14/16 22:00 12/14/16 22:44 Seroquel - PO 25 mg HS VASQUEZ Administration Ramipril 5 mg 12/15/16 10:00 12/15/16 09:51 Altace - PO 5 mg DAILY VASQUEZ Administration Ranitidine HCl 150 mg 12/15/16 10:00 12/15/16 09:52 Zantac - PO 150 mg DAILY VASQUEZ Administration Senna 2 tab 12/14/16 22:00 12/14/16 22:42 Senna - PO 2 tab HS VASQUEZ Administration Vitamin E 400 unit 12/15/16 10:00 12/15/16 09:53 Vitamin E - PO 400 unit DAILY VASQUEZ Administration Assessment: 51 year old female with PMHx of HTN, IDDM, ESRD (HD M,W,F), diabetic gastroparesis admitted with hyperglycemia, hyperkalemia and urgent HD. Plan: 1. Hyperkalemia - Improved with HD however still elevated - For HD again today - Renal following 2. ESRD - MWF schedule - Mg ox MWF - See above 3. Rotator cuff tear, Right - To follow up as outpt for rescheduling per ortho 4. DM II - Levemir 25units qam - Levemir 10units qhs - ISS, BGM ACHS 5. HTN - Hydralazine 100mg tid - Clonidine 0.4mg tid - Nifedipine 60mg daily - Ramipril 5mg daily 6. Peripheral neuropathy - Stop gabapentin for tremors, d/w pt and Dr. Barrios 7. Psych - Continue Seroquel - Continue baclofen Visit type - Emergency Visit Emergency Visit: Yes ED Registration Date: 12/14/16 Care time: The patient presented to the Emergency Department on the above date and was hospitalized for further evaluation of their emergent condition. - New Patient This patient is new to me today: Yes Date on this admission: 12/15/16 - Critical Care Critical Care patient: No
--- NOTE | 2016-12-15 14:23 | PN ---
Progress Note, Physician History of Present Illness: Pt seen and examined at bedside. She has no complaints. - Current Medication List Current Medications: Active Medications Baclofen (Lioresal -) 10 mg PO DAILY [facility] Last Admin: 12/15/16 09:52 Dose: 10 mg Bisacodyl (Dulcolax Suppository -) 10 mg RC DAILY PRN PRN Reason: CONSTIPATION Calcium Acetate (Phoslo -) 667 mg PO TIDCM [facility] Last Admin: 12/15/16 12:31 Dose: Not Given Clonidine (Catapres -) 0.4 mg PO TID [facility] Last Admin: 12/15/16 06:42 Dose: 0.4 mg Hydralazine HCl (Apresoline -) 100 mg PO TID [facility] Last Admin: 12/15/16 06:42 Dose: 100 mg Insulin Aspart (Novolog Vial Sliding Scale -) 1 vial SQ ACHS [facility] PRN Reason: Protocol Last Admin: 12/15/16 12:31 Dose: Not Given Insulin Detemir (Levemir Vial) 10 units SQ HS [facility] Last Admin: 12/15/16 00:32 Dose: 10 units Insulin Detemir (Levemir Vial) 25 units SQ AM [facility] Last Admin: 12/15/16 06:45 Dose: 25 units Magnesium Oxide (Mag-Ox -) 400 mg PO MOWEFR [facility] Last Admin: 12/14/16 17:42 Dose: 400 mg Melatonin (Melatonin) 3 mg PO HS [facility] Last Admin: 12/14/16 22:44 Dose: 3 mg Nifedipine (Procardia Xl -) 60 mg PO DAILY [facility] Last Admin: 12/15/16 09:52 Dose: 60 mg Pantoprazole Sodium (Protonix -) 40 mg PO DAILY [facility] Last Admin: 12/15/16 09:52 Dose: 40 mg Quetiapine Fumarate (Seroquel -) 25 mg PO HS [facility] Last Admin: 12/14/16 22:44 Dose: 25 mg Ramipril (Altace -) 5 mg PO DAILY [facility] Last Admin: 12/15/16 09:51 Dose: 5 mg Ranitidine HCl (Zantac -) 150 mg PO DAILY [facility] Last Admin: 12/15/16 09:52 Dose: 150 mg Senna (Senna -) 2 tab PO HS [facility] Last Admin: 12/14/16 22:42 Dose: 2 tab Vitamin E (Vitamin E -) 400 unit PO DAILY [facility] Last Admin: 12/15/16 09:53 Dose: 400 unit - Objective Vital Signs: Vital Signs Temperature 98.0 F 12/15/16 11:20 Pulse Rate 67 12/15/16 13:55 Respiratory Rate 18 12/15/16 13:55 Blood Pressure 140/64 12/15/16 13:55 O2 Sat by Pulse Oximetry (%) 98 12/14/16 21:00 Constitutional: Yes: Calm Eyes: Yes: Conjunctiva Clear HENT: Yes: Atraumatic Cardiovascular: Yes: S1, S2 Respiratory: Yes: CTA Bilaterally Gastrointestinal: Yes: Soft Genitourinary: Yes: WNL Musculoskeletal: Yes: Other (shoulder pain) Edema: Yes Edema: LLE: Trace, RLE: Trace Neurological: Yes: Oriented Psychiatric: Yes: Oriented Labs: CBC, BMP 12/15/16 06:00 12/15/16 06:00 Problem List - Problems (1) End stage kidney disease Code(s): N18.6 - END STAGE RENAL DISEASE (2) Hyperglycemia Code(s): R73.9 - HYPERGLYCEMIA, UNSPECIFIED (3) Hyperkalemia Code(s): E87.5 - HYPERKALEMIA (4) Anemia in chronic kidney disease (CKD) Code(s): N18.9 - CHRONIC KIDNEY DISEASE, UNSPECIFIED D63.1 - ANEMIA IN CHRONIC KIDNEY DISEASE (5) HTN (hypertension) Code(s): I10 - ESSENTIAL (PRIMARY) HYPERTENSION Qualifiers: Hypertension type: essential hypertension Qualified Code(s): I10 - Essential (primary) hypertension Assessment/Plan Current Medications Generic Name Dose Route Start Last Admin Trade Name Ignacio PRN Reason Stop Dose Admin Baclofen 10 mg 12/15/16 10:00 12/15/16 09:52 Lioresal - PO 10 mg DAILY [facility]ASQUEZ Administration Bisacodyl 10 mg 12/14/16 17:06 Dulcolax Suppository - RC DAILY PRN CONSTIPATION Calcium Acetate 667 mg 12/14/16 17:30 12/15/16 12:31 Phoslo - PO Not Given TIDCM [facility]ASQUEZ Clonidine 0.4 mg 12/14/16 22:00 12/15/16 06:42 Catapres - PO 0.4 mg TID VASQUEZ Administration Hydralazine HCl 100 mg 12/14/16 22:00 12/15/16 06:42 Apresoline - PO 100 mg TID [facility]ASQUEZ Administration Insulin Aspart 1 vial 12/14/16 16:30 12/15/16 12:31 Novolog Vial Sliding Scale - SQ Not Given ACHS [facility] Protocol Insulin Detemir 10 units 12/15/16 00:30 12/15/16 00:32 Levemir Vial SQ 10 units HS [facility]Z Administration Insulin Detemir 25 units 12/15/16 07:00 12/15/16 06:45 Levemir Vial SQ 25 units AM [facility]ASQUEZ Administration Magnesium Oxide 400 mg 12/14/16 17:15 12/14/16 17:42 Mag-Ox - PO 400 mg MOWEFR [facility]ASQUEZ Administration Melatonin 3 mg 12/14/16 22:00 12/14/16 22:44 Melatonin PO 3 mg HS [facility] Administration Nifedipine 60 mg 12/15/16 10:00 12/15/16 09:52 Procardia Xl - PO 60 mg DAILY [facility]ASQUEZ Administration Pantoprazole Sodium 40 mg 12/15/16 10:00 12/15/16 09:52 Protonix - PO 40 mg DAILY [facility]ASQUEZ Administration Quetiapine Fumarate 25 mg 12/14/16 22:00 12/14/16 22:44 Seroquel - PO 25 mg HS [facility]ASQUEZ Administration Ramipril 5 mg 12/15/16 10:00 12/15/16 09:51 Altace - PO 5 mg DAILY [facility]ASQUEZ Administration Ranitidine HCl 150 mg 12/15/16 10:00 12/15/16 09:52 Zantac - PO 150 mg DAILY [facility]ASQUEZ Administration Senna 2 tab 12/14/16 22:00 12/14/16 22:42 Senna - PO 2 tab HS [facility] Administration Vitamin E 400 unit 12/15/16 10:00 12/15/16 09:53 Vitamin E - PO 400 unit DAILY VASQUEZ Administration Impression 1. ESRD 2. DM uncontrolled 3. HTN 4. gastroparesis 5. hyperkalemia 6. anemia 7. peripheral neuropathy Plan - will arrange for HD again today as she is hyperkalemic - nutrition eval for hyperkalemia - surgery will be done as outpt - pt is on a MWF schedule - dialyzing pt again today () secondary to hyperkalemia - renal diet - smoking cessation - discussed with medical team at length - 1999 heparin, 2 k bath
[2016-12-15 15:46] LABS: ANION GAP 8 (8-16); CALCIUM 8.4 mg/dL (8.5-10.1); CO2 32 mmol/L (21-32); CREATININE 2.2 mg/dL (0.55-1.02); GLUCOSE,RANDOM 268 mg/dL (74-106)
[2016-12-15] MEDS ORDERED: INSULIN (NOVOLOG) ASPART 100 UNITS/ML 10ML VIAL SQ ONE (17:26)
[2016-12-15] MEDS ORDERED: INSULIN (NOVOLOG) ASPART 100 UNITS/ML 10ML VIAL ONE ×2 (18:07→21:31)
[2016-12-15] MEDS ORDERED: INSULIN SLIDING SCALE (NOVOLOG) 1 VIAL SQ SCH (19:10)
[2016-12-15] MEDS ORDERED: ACETAMINOPHEN 325 MG TABLET (FP) PO ONE (21:14)
--- NOTE | 2016-12-15 21:49 | CONSULT ---
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 Cardio/Vascular: Yes: HTN, Hyperlipdemia Pulmonary: Yes: Asthma Gastrointestinal: Yes: GERD Renal/: Yes: Renal Failure, Hemodialysis ...LMP: 12/01/14 ...: No Endocrine: Yes: Diabetes Mellitus - Past Surgical History Past Surgical History: Yes: AV Fistula/Graft (LUE), (x3) - Alcohol/Substance Use Hx Alcohol Use: No History of Substance Use: reports: None - Smoking History Smoking history: Current every day smoker Have you smoked in the past 12 months: Yes Aproximately how many cigarettes per day: 6 - Social History ADL: Independent History of Recent Travel: No Home Medications - Allergies Allergies/Adverse Reactions: Allergies Allergy/AdvReac Type Severity Reaction Status Date / Time No Known Drug Allergies Allergy Verified 12/14/16 08:04 - Home Medications Home Medications: Ambulatory Orders Ammonium Lactate Cream [Lac-Hydrin] 1 applic TP BID 12/14/16 Baclofen 10 mg PO HS 12/14/16 Bisacodyl [Dulcolax -] 5 mg PO DAILY 12/14/16 Calcium Acetate 667 mg PO AC 12/14/16 Clonidine HCl [Catapres -] 0.4 mg PO TID 12/14/16 Dexlansoprazole [Dexilant] 60 mg PO DAILY 12/14/16 Hydralazine HCl 100 mg PO TID 12/14/16 Insulin (Levemir) 12/14/16 Magnesium Oxide [Magnesium] 400 mg PO DAILY 12/14/16 Melatonin 3 mg PO HS 12/14/16 Metoclopramide HCl [Reglan -] 10 mg PO TID 12/14/16 Nifedipine [Nifedipine ER] 60 mg PO DAILY 12/14/16 Novolog Flexpen 12/14/16 Quetiapine Fumarate [Seroquel -] 25 mg PO HS 12/14/16 Ramipril [Altace] 5 mg PO DAILY 12/14/16 Ranitidine [Zantac -] 150 mg PO DAILY 12/14/16 Sennosides [Senna] 2 tab PO HS 12/14/16 Vitamin E 400 unit PO DAILY 12/14/16 Family Disease History - Family Disease History Family Disease History: CA: Father (colon cancer) Review of Systems - Review of Systems Constitutional: reports: Lethargy, Weakness Eyes: reports: Blurred Vision HENT: reports: Throat Pain Neck: reports: No Symptoms Respiratory: reports: Exercise Intolerance, SOB on Exertion Gastrointestinal: reports: Bloating Breasts: reports: No Symptoms Reported Musculoskeletal: reports: Muscle Pain, Muscle Weakness Integumentary: reports: No Symptoms Neurological: reports: Weakness Physical Exam Vital Signs: Vital Signs Temperature 97.3 F L 12/15/16 18:00 Pulse Rate 70 12/15/16 18:00 Respiratory Rate 20 12/15/16 18:00 Blood Pressure 129/55 12/15/16 18:00 O2 Sat by Pulse Oximetry (%) 98 12/15/16 09:00 Constitutional: Yes: Anxious Eyes: Yes: EOM Intact HENT: Yes: Normocephalic Neck: Yes: Trachea Midline Cardiovascular: Yes: Regular Rate and Rhythm Respiratory: Yes: CTA Bilaterally Gastrointestinal: Yes: Normal Bowel Sounds ...Rectal Exam: Yes: Deferred Renal/: Yes: WNL Breast(s): Yes: WNL Extremities: Yes: Delayed Capillary Refill Edema: No Neurological: Yes: Alert, Oriented Labs: CBC, BMP 12/15/16 06:00 12/15/16 15:00 Problem List - Problems (1) End stage kidney disease Code(s): N18.6 - END STAGE RENAL DISEASE (2) Hyperglycemia Code(s): R73.9 - HYPERGLYCEMIA, UNSPECIFIED (3) Hyperkalemia Code(s): E87.5 - HYPERKALEMIA (4) Type 1 diabetes mellitus with diabetic nephropathy Code(s): E10.21 - TYPE 1 DIABETES MELLITUS WITH DIABETIC NEPHROPATHY (5) Anemia in chronic kidney disease (CKD) Code(s): N18.9 - CHRONIC KIDNEY DISEASE, UNSPECIFIED D63.1 - ANEMIA IN CHRONIC KIDNEY DISEASE Assessment/Plan Current Active Problems Atypical chest pain (Acute) End stage kidney disease (Acute) Hyperglycemia (Acute) Hyperkalemia (Acute) Type 1 diabetes mellitus with diabetic nephropathy (Acute) UTI (lower urinary tract infection) (Acute) Anemia in chronic kidney disease (CKD) (Chronic) Diabetes (Chronic) End stage renal disease on dialysis (Chronic) HTN (hypertension) (Chronic) Abnormal Lab Results 12/15/16 12/15/16 12/15/16 06:00 06:00 06:00 WBC 10.3 H RBC 2.59 L Hgb 8.3 L Hct 25.3 L MCV 97.6 H Potassium 6.1 H* D BUN 59 H D Creatinine 5.6 H D Random Glucose 311 H* Hemoglobin A1c % 8.4 H D Calcium 8.1 L 12/15/16 15:00 WBC RBC Hgb Hct MCV Potassium BUN 20 H D Creatinine 2.2 H D Random Glucose 268 H Hemoglobin A1c % Calcium 8.4 L plan: Current Medications Generic Name Dose Route Start Last Admin Trade Name Freq PRN Reason Stop Dose Admin Baclofen 10 mg 12/15/16 10:00 12/15/16 09:52 Lioresal - PO 10 mg DAILY [facility] Administration Bisacodyl 10 mg 12/14/16 17:06 Dulcolax Suppository - RC DAILY PRN CONSTIPATION Calcium Acetate 667 mg 12/14/16 17:30 12/15/16 17:39 Phoslo - PO 667 mg TIDCM [facility] Administration Clonidine 0.4 mg 12/14/16 22:00 12/15/16 15:30 Catapres - PO 0.4 mg TID [facility] Administration Hydralazine HCl 100 mg 12/14/16 22:00 12/15/16 15:30 Apresoline - PO 100 mg TID [facility] Administration Insulin Aspart 1 vial 12/15/16 22:00 Novolog Vial Sliding Scale - SQ ACHS [facility] Protocol Insulin Detemir 35 units 12/15/16 19:11 Levemir Vial SQ AM [facility] Insulin Detemir 20 units 12/15/16 19:13 Levemir Vial SQ HS [facility] Magnesium Oxide 400 mg 12/14/16 17:15 12/14/16 17:42 Mag-Ox - PO 400 mg MOWEFR [facility] Administration Melatonin 3 mg 12/14/16 22:00 12/14/16 22:44 Melatonin PO 3 mg HS [facility] Administration Nifedipine 60 mg 12/15/16 10:00 12/15/16 09:52 Procardia Xl - PO 60 mg DAILY [facility] Administration Pantoprazole Sodium 40 mg 12/15/16 10:00 12/15/16 09:52 Protonix - PO 40 mg DAILY [facility] Administration Quetiapine Fumarate 25 mg 12/14/16 22:00 12/14/16 22:44 Seroquel - PO 25 mg HS [facility] Administration Ramipril 5 mg 12/15/16 10:00 12/15/16 09:51 Altace - PO 5 mg DAILY [facility] Administration Ranitidine HCl 150 mg 12/15/16 10:00 12/15/16 09:52 Zantac - PO 150 mg DAILY [facility] Administration Senna 2 tab 12/14/16 22:00 12/14/16 22:42 Senna - PO 2 tab HS [facility] Administration Vitamin E 400 unit 12/15/16 10:00 12/15/16 09:53 Vitamin E - PO 400 unit DAILY [facility] Administration give coverage novolog levemir 35 am and 20 hs diet nutrition consult
[2016-12-15] MEDS: MELATONIN 1 MG TABLET PO SCH (22:04)
[2016-12-15] MEDS: SENNOSIDES 8.6MG TABLET (FP) PO SCH (22:06)
[2016-12-15] MEDS: QUEtiapine FUMARATE 25 MG TABLET (FP) PO SCH (22:06)
[2016-12-15 23:02] LABS: URINE APPEARANCE TURBID; URINE BILIRUBIN NEGATIVE (NEGATIVE); URINE BLOOD 1+ (NEGATIVE); URINE COLOR YELLOW; URINE GLUCOSE (UA) NEGATIVE (NEGATIVE); URINE KETONE NEGATIVE (NEGATIVE); URINE LEUK ESTERASE 2+ (NEGATIVE); URINE NITRITE NEGATIVE (NEGATIVE); URINE PROTEIN 2+ (NEGATIVE); URINE UROBILINOGEN NEGATIVE mg/dL (0.2-1.0)
[2016-12-15 23:10] LABS: URINE BACTERIA MANY /hpf (NONE SEEN); URINE MUCUS RARE; URINE RBC 52 /hpf (0-3); URINE WBC 323 /hpf (3-5)
[2016-12-16 00:11] LABS: HEP B SURFACE AB Non Reactive (.)
[2016-12-16] MEDS: cloNIDine HCL 0.1 MG TABLET PO SCH ×2 (06:21→15:12)
[2016-12-16] MEDS: hydrALAZINE HCL 50 MG TABLET (FP) PO SCH ×2 (06:21→15:12)
[2016-12-16] MEDS: INSULIN SLIDING SCALE (NOVOLOG) 1 VIAL SQ SCH ×2 (06:22→12:08)
[2016-12-16] MEDS ORDERED: INSULIN (NOVOLOG) ASPART 100 UNITS/ML 10ML VIAL ONE (06:57)
[2016-12-16 07:38] LABS: ANION GAP 7 (8-16); CALCIUM 8.3 mg/dL (8.5-10.1); CO2 32 mmol/L (21-32)
[2016-12-16 07:40] LABS: CREATININE 4.6 mg/dL (0.55-1.02)
[2016-12-16] MEDS: CALCIUM ACETATE 667 MG CAPSULE (FP) PO SCH ×3 (08:39→15:10)
[2016-12-16 09:16] LABS: GLUCOSE,RANDOM 350 mg/dL (74-106)
[2016-12-16] MEDS ORDERED: BISACODYL 10 MG SUPP.RECT PR ONE (09:38)
[2016-12-16] MEDS ORDERED: DOCUSATE SODIUM 100 MG CAPSULE (FP) PO SCH (10:00)
[2016-12-16] MEDS ORDERED: POLYETHYLENE GLYCOL 3350 119 GM BTL PO SCH (10:00)
[2016-12-16] MEDS ORDERED: BISACODYL 5 MG TABLET.DR (FP) PO ONE (10:15)
[2016-12-16 11:13] VITALS: TEMP 98.1
--- NOTE | 2016-12-16 14:53 | PN ---
Progress Note (short form) - Note Progress Note: RENAL Pt is currently on hemodialysis complains of not having any BM's says she has been eating a lot of avocados Last Vital Signs Temp Pulse Resp BP Pulse Ox 98.1 F 60 18 178/79 98 12/16/16 10:55 12/16/16 14:30 12/16/16 14:30 12/16/16 14:30 12/16/16 09:00 lungs clear cvs s1s2 rr abd soft ext trace edema neuro a+ox3 Current Medications Generic Name Dose Route Start Last Admin Trade Name Ignacio PRN Reason Stop Dose Admin Baclofen 10 mg 12/15/16 10:00 12/15/16 09:52 Lioresal - PO 10 mg DAILY VASQUEZ Administration Calcium Acetate 667 mg 12/14/16 17:30 12/16/16 12:09 Phoslo - PO Not Given TIDCM VASQUEZ Clonidine 0.4 mg 12/14/16 22:00 12/16/16 06:21 Catapres - PO 0.4 mg TID VASQUEZ Administration Docusate Sodium 100 mg 12/16/16 10:00 12/16/16 09:56 Colace - PO 100 mg DAILY VASQUEZ Administration Hydralazine HCl 100 mg 12/14/16 22:00 12/16/16 06:21 Apresoline - PO 100 mg TID VASQUEZ Administration Insulin Aspart 1 vial 12/15/16 22:00 12/16/16 12:08 Novolog Vial Sliding Scale - SQ Not Given ACHS VASQUEZ Protocol Insulin Detemir 35 units 12/15/16 19:11 12/16/16 06:22 Levemir Vial SQ 35 units AM VASQUEZ Administration Insulin Detemir 20 units 12/15/16 19:13 12/15/16 22:04 Levemir Vial SQ 20 units HS VASQUEZ Administration Magnesium Oxide 400 mg 12/14/16 17:15 12/14/16 17:42 Mag-Ox - PO 400 mg MOWEFR VASQUEZ Administration Melatonin 3 mg 12/14/16 22:00 12/15/16 22:04 Melatonin PO 3 mg HS VASQUEZ Administration Nifedipine 60 mg 12/15/16 10:00 12/15/16 09:52 Procardia Xl - PO 60 mg DAILY VASQUEZ Administration Pantoprazole Sodium 40 mg 12/15/16 10:00 12/15/16 09:52 Protonix - PO 40 mg DAILY VASQUEZ Administration Polyethylene Glycol 17 gm 12/16/16 10:00 12/16/16 09:56 Miralax (For Daily Use) - PO 17 grams DAILY VASQUEZ Administration Quetiapine Fumarate 25 mg 12/14/16 22:00 12/15/16 22:06 Seroquel - PO 25 mg HS VASQUEZ Administration Ramipril 5 mg 12/15/16 10:00 12/15/16 09:51 Altace - PO 5 mg DAILY VASQUEZ Administration Ranitidine HCl 150 mg 12/15/16 10:00 12/15/16 09:52 Zantac - PO 150 mg DAILY VASQUEZ Administration Senna 2 tab 12/14/16 22:00 12/15/16 22:06 Senna - PO 2 tab HS VASQUEZ Administration Vitamin E 400 unit 12/15/16 10:00 12/15/16 09:53 Vitamin E - PO 400 unit DAILY VASQUEZ Administration IMPRESSION esrd htn s/p hyperkalemia- due to food, constipation and varsha inhibitor PLAN agree with current management can be discharged from renal perspective avoid high k foods MV
[2016-12-16] MEDS ORDERED: PT OWN MED DRAWER 7, Y5N ONE (15:03)
[2016-12-16 15:09] VITALS: BP 177/81; PULSE 61
[2016-12-16] MEDS: PANTOPRAZOLE 40 MG TABLET (FP) PO SCH (15:09)
[2016-12-16] MEDS: RAMIPRIL 5 MG CAPSULE (FP) PO SCH (15:09)
[2016-12-16] MEDS: RANITIDINE HCL 150 MG TABLET (FP) PO SCH (15:09)
[2016-12-16] MEDS: VITAMIN E 400 INTERNATIONAL-UNITS CAPSULE (FP) PO SCH (15:11)
[2016-12-16] MEDS: NIFEdipine E.R 60 MG TABLET (UD) PO SCH (15:12)
[2016-12-16] MEDS: BACLOFEN 10 MG TABLET (FP) PO SCH (15:15)
--- NOTE | 2016-12-16 15:51 | DS ---
Physical Exam: SUBJECTIVE: Patient seen and examined. Tolerated HD ready to go home OBJECTIVE: Vital Signs Period Temp Pulse Resp BP Sys/Rivera Pulse Ox Last 24 Hr 97.3 F-99.2 F 60-71 16-22 129-197/48-102 98-98 PE Neuro: alert awake, cn 2-12intact Pulm: CTAB CV: s1 s2 rrr no mrg Abd: s nt nd +bs Ext: LUE AVF + thrill Laboratory Results - last 24 hr 12/14/16 12/15/16 12/15/16 12:45 12:29 17:17 Sodium Potassium Chloride Carbon Dioxide Anion Gap BUN Creatinine POC Glucometer 536 Random Glucose Calcium Urine Color Yellow Urine Appearance Turbid Urine pH 6.0 D Ur Specific [place] 1.015 Urine Protein 2+ H Urine Glucose (UA) Negative Urine Ketones Negative Urine Blood 1+ H Urine Nitrite Negative Urine Bilirubin Negative Urine Urobilinogen Negative Ur Leukocyte Esterase 2+ H Urine RBC 52 Urine WBC 323 Ur Epithelial Cells Rare Urine Bacteria Many Urine Mucus Rare Hep A IgM Ab Confirm Negative Hepatitis A Ab Total Positive H Hep Bs Antigen Negative Hep Bs Antibody Non reactive Hep B Core Total Ab Negative Hepatitis C Antibody 0.1 12/15/16 12/16/16 12/16/16 21:23 05:59 06:15 Sodium 138 Potassium 5.1 D Chloride 99 Carbon Dioxide 32 Anion Gap 7 L BUN 53 H D Creatinine 4.6 H D POC Glucometer 330 357 Random Glucose 350 H* D Calcium 8.3 L Urine Color Urine Appearance Urine pH Ur Specific [place] Urine Protein Urine Glucose (UA) Urine Ketones Urine Blood Urine Nitrite Urine Bilirubin Urine Urobilinogen Ur Leukocyte Esterase Urine RBC Urine WBC Ur Epithelial Cells Urine Bacteria Urine Mucus Hep A IgM Ab Confirm Hepatitis A Ab Total Hep Bs Antigen Hep Bs Antibody Hep B Core Total Ab Hepatitis C Antibody HOSPITAL COURSE: Date of Admission:12/14/16 Date of Discharge: 12/16/16 Minutes to complete discharge: 36 Discharge Summary Reason For Visit: HYPERGLYCEMIA, ESRD, HYPERKALEMIA Current Active Problems Atypical chest pain (Acute) End stage kidney disease (Acute) Hyperglycemia (Acute) Hyperkalemia (Acute) 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 Ray for hyperglycemia and hyperkalemia. The patient was scheduled for left shoulder elective arthoscopy/ decompression and with labs prior to surgery it was noted the patient had a sugar of 409 and a potassium of 6.8. In the ED patient was found to have a potassium of 7.6 and Cr of 7.6. Patient was lethargic, EKG was normal sinus rhythm with an increase in qrs interval. No peaked t-waves seem. Subsequent Hospital Course/Progress Note/Discharge Summary by a/p: Assessment: 51 year old female with PMHx of HTN, IDDM, ESRD (HD M,W,F), diabetic gastroparesis admitted with hyperglycemia, hyperkalemia and urgent HD. Plan: 1. Hyperkalemia - Improved with HD - HD Monday at [facility] 2. ESRD - MWF schedule - Mg ox MWF - See above 3. Rotator cuff tear, Right - To follow up as outpt for rescheduling per ortho 4. DM II - Levemir 35units qam - Levemir 20units qhs - ISS, BGM ACHS 5. HTN - Hydralazine 100mg tid - Clonidine 0.4mg tid - Nifedipine 60mg daily - Ramipril 5mg daily 6. Peripheral neuropathy - Stop gabapentin for tremors, d/w pt and Dr. Barrios 7. Psych - Continue Seroquel - Continue baclofen Dispo: - Home with above plan and meds with renal follow up - Pt aware and agrees to above plan Condition: Stable - Instructions Diet, Activity, Other Instructions: Please return to the ED for any new, persistent, or worsening symptoms. Follow up with your PCP in 1 week Resume home medications as directed Increase levemir to 35units in the morning, levemir 20units at night Keep a low potassium diet Follow up with Dr. Barrios next week Continue regular dialysis schedule at [facility] Reschedule surgery with Dr. Ray and Dr. Barrios to arrange for dialysis before surgery Referrals: Derrek Patterson MD [Staff Physician] - Deric Ray MD [Staff Physician] - Disposition: HOME - Home Medications Comprehensive Discharge Medication List: Ambulatory Orders Ammonium Lactate Cream [Lac-Hydrin 12% Cream -] 1 applic TP BID 12/14/16 Baclofen 10 mg PO HS 12/14/16 Bisacodyl [Bisacodyl -] 5 mg PO DAILY 12/14/16 Calcium Acetate 667 mg PO AC 12/14/16 Clonidine HCl [Catapres -] 0.4 mg PO TID 12/14/16 Dexlansoprazole [Dexilant] 60 mg PO DAILY 12/14/16 Hydralazine HCl 100 mg PO TID 12/14/16 Magnesium Oxide [Magnesium] 400 mg PO DAILY 12/14/16 Melatonin 3 mg PO HS 12/14/16 Metoclopramide HCl [Reglan -] 10 mg PO TID 12/14/16 Nifedipine [Nifedipine ER] 60 mg PO DAILY 12/14/16 Quetiapine Fumarate [Seroquel -] 25 mg PO HS 12/14/16 Ramipril [Altace] 5 mg PO DAILY 12/14/16 Ranitidine [Zantac -] 150 mg PO DAILY 12/14/16 Sennosides [Senna -] 2 tab PO HS 12/14/16 Vitamin E 400 unit PO DAILY 12/14/16 Insulin (Levemir) [Levemir Vial] 20 units SQ HS #1 ml 12/16/16 Insulin (Levemir) [Levemir Vial] 35 units SQ AM #1 ml 12/16/16 This patient is new to me today: No Emergency Visit: Yes ED Registration Date: 12/14/16 Care time: The patient presented to the Emergency Department on the above date and was hospitalized for further evaluation of their emergent condition. Critical Care patient: No - Discharge Referral Referred to [facility] No
== END 2016-12-16 16:01 | disposition home or self-care (01) | DRG 637 ==
LOC: JER 08:00 → JERBED 11:51 → J5S 17:10
PROVIDERS: ADMIT Internal Medicine; ATTEND Nurse Practitioner Acute Care
PROC: 5A1D60Z (ICD-10-PCS; principal; 2016-12-15)
DX: E11.65 Type 2 diabetes mellitus with hyperglycemia (principal); N18.6 End stage renal disease; I12.0 Hypertensive chronic kidney disease with stage 5 chronic kidney disease or end stage renal disease; E11.22 Type 2 diabetes mellitus with diabetic chronic kidney disease; Z99.2 Dependence on renal dialysis; E87.5 Hyperkalemia; F17.210 Nicotine dependence, cigarettes, uncomplicated; D63.1 Anemia in chronic kidney disease; K21.9 Gastro-esophageal reflux disease without esophagitis; E11.43 Type 2 diabetes mellitus with diabetic autonomic (poly)neuropathy; M75.101 Unspecified rotator cuff tear or rupture of right shoulder, not specified as traumatic; K31.84 Gastroparesis; Z79.4 Long term (current) use of insulin
CPT/HCPCS: 36415; 71020-TC; 80048; 80053; 81003; 81015; 82009; 82803; 82947; 83036; 84132; 84703; 85025; 86704; 86706; 86708; 86803; 87086; 87340; 93005; 93010; 99281-25; 99283-25; J0475; J0885; J1644

== ENCOUNTER 2017-03-08 09:12 | Day surgery (SDC) | payer OTHER ==
[2017-03-07 11:06] VITALS: BMI 31.4
[~2017-03-08 09:12] MED LIST: ACETAMINOPHEN 325 MG TABLET (FP) PO PRN
[2017-03-08] MEDS ORDERED: CIPROFLOXACIN 0.3% EYE DROPS 5 ML BOTTLE ONE (09:31)
[2017-03-08] MEDS ORDERED: TROPICAMIDE 1% OPHTH SOLN 15 ML BOTTLE ONE (09:32)
[2017-03-08] MEDS ORDERED: FLURBIPROFEN 0.03% OPHTH SOLN 2.5 ML BOTTLE ONE (09:32)
[2017-03-08] MEDS ORDERED: CYCLOPENTOLATE HCL 1% OPHTH SOLN 2 ML BOTTLE ONE (09:32)
[2017-03-08] MEDS ORDERED: PHENYLEPHRINE 2.5% OPHTH SOLN 15 ML BOTTLE ONE (09:32)
[2017-03-08] MEDS: TROPICAMIDE 1% OPHTH SOLN 15 ML BOTTLE OP SCH ×3 (09:40→09:50)
[2017-03-08] MEDS: CIPROFLOXACIN HCL 0.3% OPHTH 2.5ML BOTTLE OP SCH ×3 (09:40→09:50)
[2017-03-08] MEDS: CYCLOPENTOLATE HCL 1% OPHTH SOLN 2 ML BOTTLE OP SCH ×3 (09:40→09:50)
[2017-03-08] MEDS: PHENYLEPHRINE 2.5% OPHTH SOLN 15 ML BOTTLE OP SCH ×3 (09:40→09:50)
[2017-03-08] MEDS: FLURBIPROFEN 0.03% OPHTH SOLN 2.5 ML BOTTLE OP SCH ×3 (09:40→09:50)
[2017-03-08] MEDS ORDERED: MIDAZOLAM HCL 2 MG/2 ML SINGLE DOSE VIAL ONE (10:49)
[2017-03-08] MEDS ORDERED: TETRACAINE 0.5% OPHTH SOLN 2 ML BOTTLE ONE (11:17)
[2017-03-08] MEDS ORDERED: TETRACAINE 0.5% HCL 0.6ML DROPPER.BOTTLE OD ONE (11:18)
[2017-03-08] MEDS ORDERED: POVIDONE-IODINE 5% OPHTHALMIC PREP 30 ML SOLUTION OD ONE ×2 (11:18)
[2017-03-08] MEDS ORDERED: TETRACAINE 0.5% OPHTH SOLN 2 ML BOTTLE OD ONE (11:18)
[2017-03-08] MEDS ORDERED: CHONDROITIN SU A/HYALUR SOD 1 KIT IO ONE (11:25)
[2017-03-08] MEDS ORDERED: LIDOCAINE HCL 1% PRESERVATIVE FREE - 30ML VIAL IO ONE (11:25)
[2017-03-08] MEDS ORDERED: EPINEPHrine/PF 1 MG/1 ML (1:1,000) AMPULE IO ONE (11:25)
[2017-03-08] MEDS ORDERED: BSS (NA/CA/MG/K) BALANCED SALT SOLUTION OPHTH SOLN 15 ML BOTTLE OD ONE (11:25)
[2017-03-08] MEDS ORDERED: TRYPAN BLUE 0.5 ML DISP.SYRIN IO ONE ×2 (11:27)
[2017-03-08 12:22] VITALS: TEMP 98.4
[2017-03-08 12:54] VITALS: BP 129/94; PULSE 75
--- NOTE | 2017-03-08 16:23 | SPEC ---
DATE OF OPERATION: 03/08/2017 OPERATION: Phacoemulsification of right cataract, with capsule staining with Trypan blue, and posterior chamber intraocular lens implantation. Lens used: [id number], 20.5 diopter power, serial no. [id number]. PREOPERATIVE DIAGNOSIS: Cataract, right eye. POSTOPERATIVE DIAGNOSIS: Cataract, right eye. SURGEON: Cameron Grigsby MD ANESTHESIA: Topical MAC. COMPLICATIONS: None. PROCEDURE: The patient was brought to the operating room and correctly identified, along with the operative site, as well as correct intraocular lens plummer. The patient was then prepped and draped in the usual sterile fashion, including 5% Betadine solution in the conjunctival sac and an eyelid drape. An eyelid speculum was then placed into the operative eye. The eye was inspected and a poor red reflex was noted. A paracentesis port was created and .5 mL of intracameral preservative-free lidocaine 1% was given. Beneath an air bubble, the capsule was then stained with Trypan blue. The Trypan blue was then irrigated from the eye with balanced salt solution (BSS). Viscoelastic was injected to inflate the anterior chamber. A temporal clear corneal wound was created. A continuous circular capsulorrhexis was performed. The nucleus was then hydrodissected and hydrodelineated with BSS and removed with phacoemulsification via [id number] approach. The remaining cortical material was irrigated and aspirated from the eye. Viscoelastic was injected in the anterior chamber to inflate the capsular bag. The intraocular lens was then injected into the bag. The viscoelastic was irrigated and aspirated from the eye. All wounds were tested and found to be watertight. No suture was placed. The intraocular lens was noted to be well centered and covered by the anterior capsular border. Topical vancomycin was given. The eye was patched and shielded. The patient was discharged from the operating room in stable condition. CAMERON GRIGSBY M.D. [id number]
== END 2017-03-08 12:50 | disposition home or self-care (01) ==
LOC: JASU-SURG 09:12
PROVIDERS: ATTEND Ophthalmology
PROC: 08RJ3JZ Replacement of Right Lens with Synthetic Substitute, Percutaneous Approach (ICD-10-PCS; principal; 2017-03-08 11:00)
DX: H26.9 Unspecified cataract (principal); H57.8 Other specified disorders of eye and adnexa
CPT/HCPCS: 36415; 82947; 84132

== ENCOUNTER 2018-03-21 12:07 | Inpatient (IN) | payer OTHER ==
[2018-03-21 12:12] VITALS: BMI 32.9
--- NOTE | 2018-03-21 12:26 | PDOC ---
History of Present Illness <Priscila Taylor - Last Filed: 03/21/18 16:26> <Axel Ken - Last Filed: 03/21/18 16:35> - General Chief Complaint: Chest Pain Stated Complaint: WEAKNESS, CHEST PAIN Time Seen by Provider: 03/21/18 12:25 - History of Present Illness Initial Comments: This patient is a 52 year old female with PMHx of HTN, IDDM, ESRD (HD M,W,F), diabetic gastroparesis who presented to the ED from dialysis for epigastric/ chest pain since Monday. Patient states that on Monday she began experiencing what felt like her gastritis and felt a constant, burning, sensation that felt like its coming up. She states that the chest pain went away and then came back today while at dialysis. She was only able to tolerate about 35 mins. She states that the chest pain is also sharp, left sided, better when sitting up, worse with deep breaths. She states that she was able to receive her full dialysis session on both Monday and Monday. She states that she has been taking Mylanta with minimal relief. She also notes that she has been experiencing persistent nausea and vomiting (white sputum) since Monday. She states the last time she vomited was on Monday. She states that she did not take her medications today because she was afraid they would get flushed while at dialysis. Social Hx: smokes cigarettes PCP/Nurse Chemical Dependency: Derrek Barrios GI: Lantin 03/21/18 13:04 (Priscila Taylor) Past History <Priscila Taylor - Last Filed: 03/21/18 16:26> - Past Medical History Anemia: Yes Asthma: Yes Cancer: No Cardiac Disorders: No CVA: No COPD: Yes (asthma) CHF: No Dementia: No Diabetes: Yes Dialysis: Yes (mon) GI Disorders: Yes (gerd gastroparesis) Disorders: No HTN: Yes Hypercholesterolemia: Yes Liver Disease: No Seizures: No Thyroid Disease: No - Surgical History Orthopedic Surgery: Yes (r hand sx for broken r thumb) - Immunization History Immunization Up to Date: Yes - Suicide/Smoking/Psychosocial Hx Smoking Status: No Smoking History: Never smoked Have you smoked in the past 12 months: Yes Number of Cigarettes Smoked Daily: 6 Cigars Per Day: 0 Information on smoking cessation initiated: Yes 'Breaking Loose' booklet given: 03/08/17 Hx Alcohol Use: No Drug/Substance Use Hx: No Substance Use Type: None Hx Substance Use Treatment: No <Axel Ken - Last Filed: 03/21/18 16:35> - Past Medical History Allergies/Adverse Reactions: Allergies Allergy/AdvReac Type Severity Reaction Status Date / Time No Known Drug Allergies Allergy Verified 03/21/18 12:12 Home Medications: Ambulatory Orders Ammonium Lactate Cream [Lac-Hydrin 12% Cream -] 1 applic TP BID 12/14/16 Baclofen 10 mg PO HS 12/14/16 Bisacodyl [Bisacodyl -] 5 mg PO DAILY 12/14/16 Calcium Acetate 667 mg PO AC 12/14/16 Dexlansoprazole [Dexilant] 60 mg PO DAILY 12/14/16 Hydralazine HCl 100 mg PO TID 12/14/16 Magnesium Oxide [Magnesium] 400 mg PO DAILY 12/14/16 Melatonin 3 mg PO HS 12/14/16 Metoclopramide HCl [Reglan -] 10 mg PO TID 12/14/16 Nifedipine [Nifedipine ER] 60 mg PO DAILY 12/14/16 Quetiapine Fumarate [Seroquel -] 25 mg PO HS 12/14/16 Ramipril [Altace] 5 mg PO DAILY 12/14/16 Ranitidine [Zantac -] 150 mg PO DAILY 12/14/16 Sennosides [Senna -] 2 tab PO HS 12/14/16 Vitamin E 400 unit PO DAILY 12/14/16 cloNIDine HCL [Catapres -] 0.4 mg PO TID 12/14/16 Insulin (Levemir) [Levemir Vial] 20 units SQ HS #1 ml 12/16/16 Insulin (Levemir) [Levemir Vial] 35 units SQ AM #1 ml 12/16/16 Cardiac Specific PMH - Complaint Specific PMHX Pacemaker: No <Axel Ken - Last Filed: 03/21/18 16:35> *Physical Exam <Priscila Taylor - Last Filed: 03/21/18 16:26> <Axel Ken - Last Filed: 03/21/18 16:35> - Vital Signs Last Vital Signs Temp Pulse Resp BP Pulse Ox 97.6 F 87 18 174/63 H 99 03/21/18 12:10 03/21/18 12:10 03/21/18 12:10 03/21/18 12:10 03/21/18 12:10 - Physical Exam Comments: CONSTITUTIONAL: Well-appearing; well-nourished; in no apparent distress HEAD: Normocephalic; atraumatic EYES: PERRL; EOM intact ENMT: External appears normal; normal oropharynx NECK: Supple; nontender; no cervical lymphadenopathy CARD: Normal S1, S2; no murmurs, rubs, or gallops RESP: Normal chest excursion with respiration; breath sounds clear and equal bilaterally; no wheezes, rhonchi, or rales ABD: Soft, non-distended; epigastric tenderness to palpation; no palpable organomegaly, no palpable hernias EXT: Normal ROM in all four extremities; non-tender to palpation; distal pulses intact SKIN: Warm, dry, no rash NEURO: No focal neurological deficiencies. (Priscila Taylor) Heart Score/ECG Review - History History: Slightly suspicious - Electrocardiogram EKG: Normal - Age Age: 45-65 - Risk Factors Risk Factors Heart Score: Yes Hx Hypercholesterolemia, Yes Hx Hypertension, Yes Hx Diabetes, Yes Smoking History Based on the list above the patient has:: >/=3 risk factors or Hx atherosclerotic disease - Troponin Troponin: </= normal limit - Score Heart Score - Total: 3 <Axel Ken - Last Filed: 03/21/18 16:35> - Procedure Monitoring Vital Signs: Procedure Monitoring Vital Signs Temperature 97.6 F 03/21/18 12:10 Pulse Rate 87 03/21/18 12:10 Respiratory Rate 18 03/21/18 12:10 Blood Pressure 174/63 H 03/21/18 12:10 O2 Sat by Pulse Oximetry (%) 99 03/21/18 12:10 ED Treatment Course - LABORATORY CBC & Chemistry Diagram: 03/21/18 13:21 03/21/18 13:21 - Additional Consults Time Called: 14:39 (Paged Nephro's service) Consult/PCP: Dr. Patterson Time Called: 15:15 (Regaed Dr. Patterson's service (not in office, so they paged cell)) <Priscila Taylor - Last Filed: 03/21/18 16:26> - LABORATORY CBC & Chemistry Diagram: 03/21/18 13:21 03/21/18 13:21 <Oni Kenis - Last Filed: 03/21/18 16:35> - ADDITIONAL ORDERS Additional order review: Laboratory Results 03/21/18 03/21/18 03/21/18 13:21 13:21 13:21 PT with INR 10.60 INR 0.90 Sodium 133 L Potassium 3.9 Chloride 94 L Carbon Dioxide 26 Anion Gap 12 BUN 33 H Creatinine 6.6 H Creat Clearance w eGFR 6.60 Random Glucose 211 H Calcium 8.1 L Magnesium 3.5 H Total Bilirubin 0.3 AST 23 ALT 34 Alkaline Phosphatase 148 H Creatine Kinase 118 Troponin I 0.05 Total Protein 7.3 Albumin 3.7 Lipase 130 03/21/18 13:21 RBC 3.82 MCV 97.3 H MCHC 31.8 L RDW 14.8 MPV 9.9 Neutrophils % 82.5 Lymphocytes % 10.1 Monocytes % 6.1 Eosinophils % 0.4 Basophils % 0.9 - RADIOLOGY Radiology Studies Ordered: Category Date Time Status CHEST X-RAY PORTABLE* [RAD] Stat Radiology 03/21/18 12:45 Completed - Medications Given in the ED: ED Medications Discontinued Medications Generic Name Dose Route Start Last Admin Trade Name Ignacio PRN Reason Stop Dose Admin Acetaminophen 1,000 mg 03/21/18 13:27 03/21/18 13:56 Ofirmev Injection - IVPB 03/21/18 13:28 1,000 mg ONCE ONE Administration Al Hydroxide/Mg Hydroxide 30 ml 03/21/18 14:37 03/21/18 14:43 Mylanta Suspension - PO 03/21/18 14:38 30 ml ONCE ONE Administration Famotidine/Sodium Chloride 20 mg in 50 mls @ 100 mls/hr 03/21/18 12:46 14:37 Pepcid 20 Mg Premixed Ivpb - IVPB 03/21/18 13:15 100 mls/hr ONCE ONE Administration Metoclopramide HCl 10 mg 03/21/18 13:27 03/21/18 14:37 Reglan Injection - IVPUSH 03/21/18 13:28 10 mg ONCE ONE Administration Pantoprazole Sodium 40 mg 03/21/18 12:47 03/21/18 13:27 Protonix Iv IVPUSH 03/21/18 12:48 40 mg ONCE ONE Administration Sucralfate 1 gm 03/21/18 12:47 03/21/18 13:24 Carafate - PO 03/21/18 12:48 1 gm ONCE ONE Administration Medical Decision Making <Priscila Taylor - Last Filed: 03/21/18 16:26> <Axel Ken - Last Filed: 03/21/18 16:35> - Medical Decision Making 03/21/18 16:24 Patient is a 52-year-old female with multiple comorbidities, history of end- stage renal disease on hemodialysis, smoking and gastritis who presents with severe subxiphoid epigastric pain, substernal chest burning and pain for the past 4 days associated with multiple episodes of nonbloody nonbilious vomiting and persistent nausea. Patient reports that she's been unable to tolerate anything by mouth over the past 4 days. Epigastric pain is constant but the chest pain is intermittent. Patient was unable to undergo hemodialysis on day of arrival and last hemodialysis session was 2 days prior. In the ER, patient is mildly hypertensive with epigastric discomfort on deep palpation only. CBC/ CMP within normal limit. EKG shows no evidence of acute ischemia, prolonged QTC is noted. Potassium and magnesium are within normal limit. Patient's received H2 blockers, antiemetics and Carafate. Patient is also received several doses of Mylanta with intermittent resolution. I discussed the case with Dr. Sandoval who will evaluate the patient. Dr. Patterson of renal has not responded to initial pages at this time. There is no indication for immediate hemodialysis at this time. Will place on telemetry for serial cardiac enzymes and hemodialysis in the a.m. (Axel Ken) *DC/Admit/Observation/Transfer <Priscila Taylor - Last Filed: 03/21/18 16:26> - Discharge Dispostion Decision to Admit order: Yes <Axel Ken - Last Filed: 03/21/18 16:35> Diagnosis at time of Disposition: Epigastric pain Chest pain Qualifiers: Chest pain type: unspecified Qualified Code(s): R07.9 - Chest pain, unspecified - Discharge Dispostion Condition at time of disposition: Fair Decision to Admit order Date/Time: Decision to Admit Order Category Date Time Status Decision to Admit to Hospital Routine Admission 03/21/18 16:34 Ordered - Referrals Referrals: Katalina Sanchez [Primary Care Provider] - - Patient Instructions - Post Discharge Activity - Attestations Physician Attestion: 03/21/18 16:23 The documentation was prepared by the scribe under my direct supervision. I have reviewed the documentation which correctly represents the findings, medical decision-making and critical action taken by me. (Axel Ken)
[2018-03-21] MEDS ORDERED: FAMOTIDINE 20 MG/50 ML IVPB 20 MG/50 ML MG IVPB ONE ×2 (12:46→13:05)
[2018-03-21] MEDS ORDERED: PANTOPRAZOLE SODIUM 40 MG VIAL IVPUSH ONE (12:47)
[2018-03-21] MEDS ORDERED: SUCRALFATE 1 GM TABLET (FP) PO ONE (12:47)
[2018-03-21] MEDS ORDERED: PANTOPRAZOLE SODIUM 40 MG/100 ML BAG IVPB ONE (13:04)
[2018-03-21] MEDS ORDERED: SUCRALFATE 1 GM TABLET (FP) ONE (13:04)
[2018-03-21] MEDS ORDERED: ACETAMINOPHEN 1000 MG/100 ML VIAL (NON FORMULARY) IVPB ONE (13:27)
[2018-03-21] MEDS ORDERED: METOCLOPRAMIDE HCL INJECTION 10 MG/2 ML VIAL IVPUSH ONE (13:27)
[2018-03-21] MEDS ORDERED: ACETAMINOPHEN INJECTION 100 ML IVPB ONE (13:28)
[2018-03-21] MEDS ORDERED: METOCLOPRAMIDE HCL INJECTION 10 MG/2 ML VIAL ONE (13:28)
[2018-03-21 13:44] LABS: BASO % 0.9 % (0-2.0); EOS % 0.4 % (0-4.5); HEMATOCRIT 37.2 % (32.4-45.2); HEMOGLOBIN 11.8 GM/dL (10.7-15.3); LYMPH % 10.1 % (8-40); MCHC 31.8 g/dl (32.0-36.0); MEAN CELL VOLUME 97.3 fl (80-96); MEAN PLT VOLUME 9.9 fl (7.5-11.1); MONO % 6.1 % (3.8-10.2); NEUT % 82.5 % (42.8-82.8); PLATELET COUNT 295 K/MM3 (134-434); RBC 3.82 M/mm3 (3.60-5.2); RDW 14.8 % (11.6-15.6); WHITE BLOOD COUNT 11.5 K/mm3 (4.0-10.0)
[2018-03-21 13:54] LABS: INR 0.9 (0.83-1.09); PROTHROMBIN TIME (PATIENT) 10.6 SEC (9.7-13.0)
[2018-03-21 14:33] LABS: ALBUMIN 3.7 g/dl (3.4-5.0); ALK PHOS 148 U/L (45-117); ANION GAP 12 MMOL/L (8-16); BILIRUBIN,TOTAL 0.3 mg/dL (0.2-1); BLOOD UREA NITROGEN 33 mg/dL (7-18); CALCIUM 8.1 mg/dL (8.5-10.1); CHLORIDE 94 mmol/L (98-107); CO2 26 mmol/L (21-32); CREATININE 6.6 mg/dL (0.55-1.3); GLUCOSE,RANDOM 211 mg/dL (74-106); MAGNESIUM 3.5 mg/dL (1.8-2.4); POTASSIUM 3.9 mmol/L (3.5-5.1); SGOT/AST 23 U/L (15-37); SGPT/ALT 34 U/L (13-61); SODIUM 133 mmol/L (136-145); TOT PROT 7.3 g/dl (6.4-8.2)
[2018-03-21] MEDS ORDERED: MAG HYDROX/AL HYDROX/SIMETH -MYLANTA- ORAL SUSPENSION PO ONE ×2 (14:37→16:19)
[2018-03-21] MEDS ORDERED: MAG HYDROX/AL HYDROX/SIMETH 30 ML UNIT-DOSE CUP ONE ×3 (14:41→20:31)
[2018-03-21] MEDS ORDERED: HEPARIN NA (PORCINE) 5,000 UNITS/ML 1ML VIAL SQ SCH (18:00)
--- NOTE | 2018-03-21 18:14 | HP ---
CHIEF COMPLAINT: Nausea vomiting x 1 week PCP/Inventory Analyst: Derrek Barrios MD GI: Dr. Magno Sandoval HISTORY OF PRESENT ILLNESS: 52 year old female with a PMH significant for HTN, IDDM, ESRD (on HD), diabetic gastroparesis, and anxiety/depression presented to the ED with nausea and vomiting for the past week with very little PO intake. Patient reports a burning sensation in her epigastric region, nausea, and vomiting started on Monday the day after Thanksgiving. She would throw up white, frothy liquid, no blood. She started having intermittent, left-sided chest pain today, and the pain got so sharp, she was only able to complete approximately 35 minutes. She has had very little food since the onset of her symptoms, but she feels hungry and feels she could tolerate some broth. She used to have episodes of GI upset like this very frequently over the past 20 years, but she has not had any exacerbations for one year. She did not take her medications today. Denies syncope, seizures, SOB or hemoptysis. Upon admission to the ED, VSS. Labs notable for slightly elevated WBC of 11.5, troponin #1 negative, lipase WNL. EKG with prolonged QTc, CXR unremarkable. Patient was treated with a GI cocktail of Mylanta, Reglan, Pepcid, Sucralfate, and Protonix. Patient's GI specialist Dr. Sandoval notified patient has been admitted and he will see her tomorrow. Patient reports she feels about the same as when she was admitted to the ED, still having nausea and dry heaves. Recent Travel: No PAST MEDICAL HISTORY: HTN IDDM ESRD (HD M,W,F) diabetic gastroparesis PAST SURGICAL HISTORY: AV fistula/graft Retinal detachment repair Social History: Smoking: Current 1/2 PPD smoker Alcohol: No Drugs: No Family History: Father - colon cancer Allergies No Known Drug Allergies Allergy (Verified 03/21/18 12:12) HOME MEDICATIONS: Home Medications Medication Instructions Recorded Ammonium Lactate Cream [Lac-Hydrin 1 applic TP BID 12/14/16 12% Cream -] Baclofen 10 mg PO HS 12/14/16 Bisacodyl [Bisacodyl -] 5 mg PO DAILY 12/14/16 Calcium Acetate 667 mg PO AC 12/14/16 Dexlansoprazole [Dexilant] 60 mg PO DAILY 12/14/16 Hydralazine HCl 100 mg PO TID 12/14/16 Magnesium Oxide [Magnesium] 400 mg PO DAILY 12/14/16 Melatonin 3 mg PO HS 12/14/16 Metoclopramide HCl [Reglan -] 10 mg PO TID 12/14/16 Nifedipine [Nifedipine ER] 60 mg PO DAILY 12/14/16 Quetiapine Fumarate [Seroquel -] 25 mg PO HS 12/14/16 Ramipril [Altace] 5 mg PO DAILY 12/14/16 Ranitidine [Zantac -] 150 mg PO DAILY 12/14/16 Sennosides [Senna -] 2 tab PO HS 12/14/16 Vitamin E 400 unit PO DAILY 12/14/16 cloNIDine HCL [Catapres -] 0.4 mg PO TID 12/14/16 Insulin (Levemir) [Levemir Vial] 20 units SQ HS #1 ml 12/16/16 Insulin (Levemir) [Levemir Vial] 35 units SQ AM #1 ml 12/16/16 REVIEW OF SYSTEMS CONSTITUTIONAL: (+) generalized weakness, fever (subjective) Absent: chills, diaphoresis, , malaise, loss of appetite, weight change HEENT: (+) nasal congestion, Absent: rhinorrhea, throat pain, throat swelling, difficulty swallowing, mouth swelling, ear pain, eye pain, visual changes CARDIOVASCULAR: (+) chest pain Absent: syncope, palpitations, irregular heart rate, lightheadedness, peripheral edema RESPIRATORY: Absent: cough, shortness of breath, dyspnea with exertion, orthopnea, wheezing, stridor, hemoptysis GASTROINTESTINAL: (+) abdominal pain, nausea, vomiting Absent: , abdominal distension, diarrhea, constipation, melena, hematochezia GENITOURINARY: Absent: dysuria, frequency, urgency, hesitancy, hematuria, flank pain, genital pain MUSCULOSKELETAL: (+) myalgia Absent: arthralgia, joint swelling, back pain, neck pain SKIN: Absent: rash, itching, pallor HEMATOLOGIC/IMMUNOLOGIC: Absent: easy bleeding, easy bruising, lymphadenopathy, frequent infections ENDOCRINE: Absent: unexplained weight gain, unexplained weight loss, heat intolerance, cold intolerance NEUROLOGIC: Absent: headache, focal weakness or paresthesias, dizziness, unsteady gait, seizure, mental status changes, bladder or bowel incontinence PSYCHIATRIC: (+) anxiety, depression Absent: suicidal or homicidal ideation, hallucinations. PHYSICAL EXAMINATION Vital Signs - 24 hr 03/21/18 12:10 Temperature 97.6 F Pulse Rate 87 Respiratory 18 Rate Blood Pressure 174/63 H O2 Sat by Pulse 99 Oximetry (%) GENERAL: Lying in bed, ill-appearing, disheveled appearance, alert, and fully oriented HEAD: Normal with no signs of trauma. EYES: Pupils equal, round and reactive to light, extraocular movements intact, sclera anicteric, conjunctiva clear. No lid lag. EARS, NOSE, THROAT: Nares patent, oropharynx clear without exudates. Moist mucous membranes. NECK: Normal range of motion, supple without lymphadenopathy, JVD, or masses. LUNGS: Breath sounds equal, clear to auscultation bilaterally. No wheezes, and no crackles. No accessory muscle use. HEART: Regular rate and rhythm, normal S1 and S2 without murmur, rub or gallop. ABDOMEN: Obese, soft, diffusely tender, not distended, normoactive bowel sounds , no guarding, no rebound, no masses. No hepatomegaly or splenomegaly. MUSCULOSKELETAL: Normal range of motion at all joints. No bony deformities or tenderness. No CVA tenderness. UPPER EXTREMITIES: 2+ pulses, warm, well-perfused. No cyanosis. No clubbing. No peripheral edema. LOWER EXTREMITIES: 2+ pulses, warm, well-perfused. No calf tenderness. No peripheral edema. NEUROLOGICAL: No facial droop, tongue midline, normal speech PSYCHIATRIC: Cooperative. Good eye contact. Irritable mood and flat affect. SKIN: Warm, dry, normal turgor, no rashes or lesions noted, normal capillary refill. Laboratory Results - last 24 hr 03/21/18 03/21/18 03/21/18 13:21 13:21 13:21 WBC 11.5 H RBC 3.82 Hgb 11.8 Hct 37.2 D MCV 97.3 H MCH 31.0 MCHC 31.8 L RDW 14.8 Plt Count 295 D MPV 9.9 Absolute Neuts (auto) 9.5 H Neutrophils % 82.5 Lymphocytes % 10.1 Monocytes % 6.1 Eosinophils % 0.4 Basophils % 0.9 Nucleated RBC % 0 PT with INR 10.60 INR 0.90 Sodium 133 L Potassium 3.9 Chloride 94 L Carbon Dioxide 26 Anion Gap 12 BUN 33 H Creatinine 6.6 H Creat Clearance w eGFR 6.60 Random Glucose 211 H Calcium 8.1 L Magnesium 3.5 H Total Bilirubin 0.3 AST 23 ALT 34 Alkaline Phosphatase 148 H Creatine Kinase 118 Troponin I 0.05 Total Protein 7.3 Albumin 3.7 Lipase 03/21/18 13:21 WBC RBC Hgb Hct MCV MCH MCHC RDW Plt Count MPV Absolute Neuts (auto) Neutrophils % Lymphocytes % Monocytes % Eosinophils % Basophils % Nucleated RBC % PT with INR INR Sodium Potassium Chloride Carbon Dioxide Anion Gap BUN Creatinine Creat Clearance w eGFR Random Glucose Calcium Magnesium Total Bilirubin AST ALT Alkaline Phosphatase Creatine Kinase Troponin I Total Protein Albumin Lipase 130 EKG - Prolonged QTc, no ST or T wave changes CXR - No infiltrates or pleural effusions, cardiomegaly. ASSESSMENT/PLAN: 52 year old female with a PMH significant for HTN, IDDM, ESRD (on HD), diabetic gastroparesis, and anxiety/depression presented to the ED with nausea and vomiting for the past week with very little PO intake. Patient was treated with GI cocktail and admitted for further GI work up. Nausea/Vomiting - Patient with a 20 year history of diabetic gastroparesis - Followed by GI specialist Dr. Sandoval, he has been notified by the ED she has been admitted and will see her tomorrow - Continue home GI medications: - Bisacodyl 5 mg PO DAILY - Sennosides [Senna -] 2 tab PO HS - Metoclopramide HCl [Reglan] 10 mg PO TID - Ranitidine [Zantac] 150 mg PO DAILY - Dexlansoprazole [Dexilant] 60 mg PO DAILY - Reglan 10 mg IVP q 6 hrs PRN for nausea - Mylanta 30 mL PO 6 hrs PRN for GI upset - Clear liquid diet, advance as n/v subsides - Monitor electrolytes - Troponin #1 0.5, Troponin #2 pending HTN - Nifedipine [Nifedipine ER] 60 mg PO DAILY - Hydralazine HCl 100 mg PO TID - Ramipril [Altace] 5 mg PO DAILY - CloNIDine HCL [Catapres -] 0.4 mg PO TID - Monitor BP - Sodium restricted diet IDDM - Levemir 35 units SQ AM and 20 units SQ HS - SS with Novolog - Mointor Glucose TID - Diabetic diet ESRD - (HD M,W,F) - Due for dialysis Monday - Consult with Dr. Arredondo ordered to place order for monday - Followed OP by Dr. Derrek Barrios Anxiety/Depression - Quetiapine Fumarate [Seroquel -] 25 mg PO HS Muscle spasm - Baclofen 10 mg PO HS Supplement - Calcium Acetate 667 mg PO AC - Magnesium Oxide [Magnesium] 400 mg PO DAILY - Melatonin 3 mg PO HS - Vitamin E 400 unit PO DAILY Prophylaxis DVT: Heparin SQ GI: Ranitidine [Zantac] 150 mg PO DAILY FEN - PO intake - Replete as indicated - Clear liquid diabetic, Na restricted diet, advance when n/v subsides Disp: Patient requires further inpatient monitoring FULL CODE Visit type - Emergency Visit Emergency Visit: Yes ED Registration Date: 03/21/18 Care time: The patient presented to the Emergency Department on the above date and was hospitalized for further evaluation of their emergent condition. - New Patient This patient is new to me today: Yes Date on this admission: 03/22/18 - Critical Care Critical Care patient: No
[2018-03-21] MEDS ORDERED: HEPARIN NA (PORCINE) 5,000 UNITS/ML 1ML VIAL ONE (18:21)
[2018-03-21] MEDS ORDERED: MAG HYDROX/AL HYDROX/SIMETH 30 ML UNIT-DOSE CUP PO PRN (18:50)
[2018-03-21] MEDS ORDERED: METOCLOPRAMIDE HCL INJECTION 10 MG/2 ML VIAL IVPUSH PRN (18:50)
--- NOTE | 2018-03-21 19:11 | CON.GI ---
Consult Consult Specialty:: GI - History of Present Illness History of Present Illness: 52 y/o F with PMH of ESRD,DM,NEMI of chronic disease was asked to be seen because of epigastric pain, SHe was doing well until 5 days ago when shedeveleoped 12/01 epigastric pain associated with nausea but no vomiting.She deneis dysphagia, melena and rectal bleeding. 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 Cardio/Vascular: Yes: HTN, Hyperlipdemia Pulmonary: Yes: Asthma Gastrointestinal: Yes: GERD Renal/: Yes: Renal Failure, Hemodialysis ...LMP: 12/01/14 Endocrine: Yes: Diabetes Mellitus - Past Surgical History Past Surgical History: Yes: AV Fistula/Graft (LUE), (x3) - Alcohol/Substance Use Hx Alcohol Use: No History of Substance Use: reports: None - Smoking History Smoking history: Never smoked Have you smoked in the past 12 months: Yes Aproximately how many cigarettes per day: 6 - Social History ADL: Independent History of Recent Travel: No Home Medications - Allergies Allergies/Adverse Reactions: Allergies Allergy/AdvReac Type Severity Reaction Status Date / Time No Known Drug Allergies Allergy Verified 03/21/18 12:12 - Home Medications Home Medications: Ambulatory Orders Ammonium Lactate Cream [Lac-Hydrin 12% Cream -] 1 applic TP BID 12/14/16 Baclofen 10 mg PO HS 12/14/16 Bisacodyl [Bisacodyl -] 5 mg PO DAILY 12/14/16 Calcium Acetate 667 mg PO AC 12/14/16 Dexlansoprazole [Dexilant] 60 mg PO DAILY 12/14/16 Hydralazine HCl 100 mg PO TID 12/14/16 Magnesium Oxide [Magnesium] 400 mg PO DAILY 12/14/16 Melatonin 3 mg PO HS 12/14/16 Metoclopramide HCl [Reglan -] 10 mg PO TID 12/14/16 Nifedipine [Nifedipine ER] 60 mg PO DAILY 12/14/16 Quetiapine Fumarate [Seroquel -] 25 mg PO HS 12/14/16 Ramipril [Altace] 5 mg PO DAILY 12/14/16 Ranitidine [Zantac -] 150 mg PO DAILY 12/14/16 Sennosides [Senna -] 2 tab PO HS 12/14/16 Vitamin E 400 unit PO DAILY 12/14/16 cloNIDine HCL [Catapres -] 0.4 mg PO TID 12/14/16 Insulin (Levemir) [Levemir Vial] 20 units SQ HS #1 ml 12/16/16 Insulin (Levemir) [Levemir Vial] 35 units SQ AM #1 ml 12/16/16 Family Disease History - Family Disease History Family Disease History: CA: Father (colon cancer) Physical Exam-GI Vital Signs: Vital Signs Temperature 97.6 F 03/21/18 12:10 Pulse Rate 85 03/21/18 18:43 Respiratory Rate 15 03/21/18 18:43 Blood Pressure 167/66 03/21/18 18:43 O2 Sat by Pulse Oximetry (%) 99 03/21/18 18:43 Constitutional: Yes: No Distress Eyes: Yes: Conjunctiva Clear Neck: Yes: Supple Cardiovascular: Yes: Regular Rate and Rhythm ...Palpate: Yes: Soft, Tenderness, Epigastium. No: Firm/Rigid, Guarding, Hepatomegaly, Mass, Pulsatile Mass, Splenomegaly, Tenderness Labs: CBC, BMP 03/21/18 13:21 03/21/18 13:21 INR, PTT INR 0.90 (0.83-1.09) 03/21/18 13:21 Hepatic Panel Total Bilirubin 0.3 mg/dL (0.2-1) 03/21/18 13:21 AST 23 U/L (15-37) 03/21/18 13:21 ALT 34 U/L (13-61) 03/21/18 13:21 Alkaline Phosphatase 148 U/L (45-117) H 03/21/18 13:21 Albumin 3.7 g/dl (3.4-5.0) 03/21/18 13:21 Home Medications Medication Instructions Recorded Ammonium Lactate Cream [Lac-Hydrin 1 applic TP BID 12/14/16 12% Cream -] Baclofen 10 mg PO HS 12/14/16 Bisacodyl [Bisacodyl -] 5 mg PO DAILY 12/14/16 Calcium Acetate 667 mg PO AC 12/14/16 Dexlansoprazole [Dexilant] 60 mg PO DAILY 12/14/16 Hydralazine HCl 100 mg PO TID 12/14/16 Magnesium Oxide [Magnesium] 400 mg PO DAILY 12/14/16 Melatonin 3 mg PO HS 12/14/16 Metoclopramide HCl [Reglan -] 10 mg PO TID 12/14/16 Nifedipine [Nifedipine ER] 60 mg PO DAILY 12/14/16 Quetiapine Fumarate [Seroquel -] 25 mg PO HS 12/14/16 Ramipril [Altace] 5 mg PO DAILY 12/14/16 Ranitidine [Zantac -] 150 mg PO DAILY 12/14/16 Sennosides [Senna -] 2 tab PO HS 12/14/16 Vitamin E 400 unit PO DAILY 12/14/16 cloNIDine HCL [Catapres -] 0.4 mg PO TID 12/14/16 Insulin (Levemir) [Levemir Vial] 20 units SQ HS #1 ml 12/16/16 Insulin (Levemir) [Levemir Vial] 35 units SQ AM #1 ml 12/16/16 Assessment/Plan epigastric pain r/o peptic ulcer disease, dyspepsia, gastroparesis R>Protonix 40mg bid x 1 week then daily Reglan 5mg 30 min
[2018-03-21] MEDS: CALCIUM ACETATE 667 MG CAPSULE (FP) PO SCH (19:23)
[2018-03-21] MEDS ORDERED: METOCLOPRAMIDE HCL 10 MG TABLET (FP) PO ONE (20:31)
[2018-03-21] MEDS: METOCLOPRAMIDE HCL 10 MG TABLET (FP) PO SCH (20:44)
[2018-03-21] MEDS ORDERED: METOCLOPRAMIDE HCL 10 MG TABLET (FP) PO SCH (22:00)
[2018-03-21] MEDS ORDERED: INSULIN (LEVEMIR) 100 UNITS/ML UNITS SQ ONE (23:39)
[2018-03-21] MEDS: HEPARIN NA (PORCINE) 5,000 UNITS/ML 1ML VIAL SQ SCH (23:52)
[2018-03-21] MEDS: cloNIDine HCL 0.1 MG TABLET PO SCH (23:52)
[2018-03-21] MEDS: hydrALAZINE HCL 50 MG TABLET (FP) PO SCH (23:52)
[2018-03-21] MEDS: SENNOSIDES 8.6MG TABLET (FP) PO SCH (23:53)
[2018-03-21] MEDS: QUEtiapine FUMARATE 25 MG TABLET (FP) PO SCH (23:53)
[2018-03-21] MEDS: INSULIN (LEVEMIR) 100 UNITS/ML UNITS SQ SCH (23:53)
[2018-03-21] MEDS: BACLOFEN 10 MG TABLET (FP) PO SCH (23:53)
[2018-03-21] MEDS: MELATONIN 1 MG TABLET PO SCH (23:53)
[2018-03-21] MEDS: AMMONIUM LACTATE 12% LOTION 225 GM BOTTLE TP SCH (23:54)
[2018-03-22] MEDS: INSULIN (LEVEMIR) 100 UNITS/ML UNITS SQ SCH ×3 (07:00→22:02)
[2018-03-22 07:17] LABS: HEMATOCRIT 35.5 % (32.4-45.2); HEMOGLOBIN 12.2 GM/dL (10.7-15.3); MCHC 34.3 g/dl (32.0-36.0); MEAN CELL VOLUME 96.3 fl (80-96); MEAN PLT VOLUME 9.9 fl (7.5-11.1); PLATELET COUNT 292 K/MM3 (134-434); RBC 3.69 M/mm3 (3.60-5.2); RDW 14.8 % (11.6-15.6); WHITE BLOOD COUNT 9.8 K/mm3 (4.0-10.0)
[2018-03-22] MEDS ORDERED: HEMOQUE TEST 1 EACH EACH ONE ×2 (07:49→08:00)
[2018-03-22 08:06] LABS: ANION GAP 11 MMOL/L (8-16); BLOOD UREA NITROGEN 38 mg/dL (7-18); CALCIUM 8.1 mg/dL (8.5-10.1); CHLORIDE 96 mmol/L (98-107); CO2 27 mmol/L (21-32); GLUCOSE,RANDOM 72 mg/dL (74-106); POTASSIUM 4.3 mmol/L (3.5-5.1); SODIUM 134 mmol/L (136-145)
[2018-03-22 08:12] LABS: CREATININE 7.7 mg/dL (0.55-1.3)
[2018-03-22] MEDS: HEPARIN NA (PORCINE) 5,000 UNITS/ML 1ML VIAL SQ SCH ×3 (08:25→22:01)
[2018-03-22] MEDS: cloNIDine HCL 0.1 MG TABLET PO SCH ×3 (08:25→22:01)
[2018-03-22] MEDS: hydrALAZINE HCL 50 MG TABLET (FP) PO SCH ×3 (08:25→22:00)
[2018-03-22] MEDS: INSULIN SLIDING SCALE (NOVOLOG) 1 VIAL SQ SCH ×3 (08:26→19:01)
[2018-03-22] MEDS: METOCLOPRAMIDE HCL 10 MG TABLET (FP) PO SCH ×3 (08:27→19:01)
[2018-03-22] MEDS: CALCIUM ACETATE 667 MG CAPSULE (FP) PO SCH ×3 (08:27→19:01)
[2018-03-22] MEDS ORDERED: PT OWN MED DRAWER 7, Y5N ONE ×2 (10:23→22:13)
[2018-03-22] MEDS: RAMIPRIL 5 MG CAPSULE (FP) PO SCH (10:25)
[2018-03-22] MEDS: BISACODYL 5 MG TABLET.DR (FP) PO SCH (10:25)
[2018-03-22] MEDS: AMMONIUM LACTATE 12% LOTION 225 GM BOTTLE TP SCH ×2 (10:26→22:02)
[2018-03-22] MEDS: MAGNESIUM OXIDE 400 MG TABLET (FP) PO SCH (10:26)
[2018-03-22] MEDS: RANITIDINE HCL 150 MG TABLET (FP) PO SCH (10:27)
[2018-03-22] MEDS: VITAMIN E 400 INTERNATIONAL-UNITS CAPSULE (FP) PO SCH (10:27)
[2018-03-22] MEDS: NIFEdipine E.R 60 MG TABLET (UD) PO SCH (10:27)
[2018-03-22] MEDS: PANTOPRAZOLE 40 MG TABLET (FP) PO SCH (10:27)
[2018-03-22] MEDS ORDERED: METOCLOPRAMIDE HCL 10 MG TABLET (FP) PO ONE (11:22)
[2018-03-22] MEDS ORDERED: INSULIN (LEVEMIR) 100 UNITS/ML UNITS SQ ONE (11:25)
--- NOTE | 2018-03-22 12:02 | PN ---
Progress Note, Physician Chief Complaint: patient admitted for nausea vomiting she missed her HD yesterday bc of nausea she tolerated liquid idet no more nausea no chest pain no vomitting - Current Medication List Current Medications: Active Medications Al Hydroxide/Mg Hydroxide (Mylanta Oral Suspension -) 30 ml PO Q6H PRN PRN Reason: DYSPEPSIA Last Admin: 03/21/18 20:44 Dose: 30 ml Baclofen (Lioresal -) 10 mg PO [facility] Last Admin: 03/21/18 23:53 Dose: 10 mg Bisacodyl (Dulcolax -) 5 mg PO DAILY [facility] Last Admin: 03/22/18 10:25 Dose: 5 mg Calcium Acetate (Phoslo -) 667 mg PO TIDCM [facility] Last Admin: 03/22/18 08:27 Dose: 667 mg Clonidine (Catapres -) 0.4 mg PO TID [facility] Last Admin: 03/22/18 08:25 Dose: 0.4 mg Heparin Sodium (Porcine) (Heparin -) 5,000 unit SQ TID [facility] Last Admin: 03/22/18 08:25 Dose: 5,000 unit Hydralazine HCl (Apresoline -) 100 mg PO TID [facility] Last Admin: 03/22/18 08:25 Dose: 100 mg Insulin Aspart (Novolog Vial Sliding Scale -) [facility] Protocol Last Admin: 03/22/18 11:31 Dose: Not Given Insulin Detemir (Levemir Vial) 20 units SQ HS [facility] Last Admin: 03/21/18 23:53 Dose: 20 units Insulin Detemir (Levemir Vial) 35 units SQ AM [facility] Last Admin: 03/22/18 07:00 Dose: Not Given Lactic Acid (Lac-Hydrin 12) 1 applic TP BID [facility] Last Admin: 03/22/18 10:26 Dose: 1 applic Magnesium Oxide (Mag-Ox -) 400 mg PO DAILY [facility] Last Admin: 03/22/18 10:26 Dose: 400 mg Melatonin (Melatonin) 3 mg PO [facility] Last Admin: 03/21/18 23:53 Dose: 3 mg Metoclopramide HCl (Reglan -) 5 mg PO TIDAC [facility] Last Admin: 03/22/18 11:23 Dose: 5 mg Nifedipine (Procardia Xl -) 60 mg PO DAILY [facility] Last Admin: 03/22/18 10:27 Dose: 60 mg Pantoprazole Sodium (Protonix -) 40 mg PO DAILY [facility] Last Admin: 03/22/18 10:27 Dose: 40 mg Quetiapine Fumarate (Seroquel -) 25 mg PO [facility] Last Admin: 03/21/18 23:53 Dose: 25 mg Ramipril (Altace -) 5 mg PO DAILY [facility] Last Admin: 03/22/18 10:25 Dose: 5 mg Ranitidine HCl (Zantac -) 150 mg PO DAILY [facility] Last Admin: 03/22/18 10:27 Dose: 150 mg Senna (Senna -) 2 tab PO [facility] Last Admin: 03/21/18 23:53 Dose: 2 tab Vitamin E (Vitamin E -) 400 unit PO DAILY [facility] Last Admin: 03/22/18 10:27 Dose: 400 unit - Objective Vital Signs: Vital Signs Temperature 97.6 F 03/22/18 11:05 Pulse Rate 73 03/22/18 11:05 Respiratory Rate 18 03/22/18 11:05 Blood Pressure 140/69 03/22/18 11:05 O2 Sat by Pulse Oximetry (%) 98 03/22/18 11:05 Constitutional: Yes: Calm Cardiovascular: Yes: Regular Rate and Rhythm, S1, S2 Respiratory: Yes: CTA Bilaterally Gastrointestinal: Yes: Normal Bowel Sounds, Soft Edema: No Neurological: Yes: Alert, Oriented Labs: CBC, BMP 03/22/18 06:15 03/22/18 06:00 INR, PTT INR 0.90 (0.83-1.09) 03/21/18 13:21 Problem List - Problems (1) Epigastric pain Assessment/Plan: ppi seen by GI Code(s): R10.13 - EPIGASTRIC PAIN (2) End stage kidney disease Assessment/Plan: HD per renal missed HD yesterday MWF needs HD today Code(s): N18.6 - END STAGE RENAL DISEASE (3) Gastroparesis Assessment/Plan: reglan AC meals Code(s): K31.84 - GASTROPARESIS (4) Diabetes Assessment/Plan: bgm sliding scale levemir hgb a1c Code(s): E11.9 - TYPE 2 DIABETES MELLITUS WITHOUT COMPLICATIONS Qualifiers: Diabetes mellitus type: type 2 Diabetes mellitus alf insulin use: with long term care administrator use Diabetes mellitus complication status: with skin complications Diabetes mellitus complication detail: with foot ulcer Qualified Code(s): E11.621 - Type 2 diabetes mellitus with foot ulcer (5) HTN (hypertension) Code(s): I10 - ESSENTIAL (PRIMARY) HYPERTENSION Qualifiers: Hypertension type: essential hypertension Qualified Code(s): I10 - Essential (primary) hypertension
[2018-03-22] MEDS ORDERED: SODIUM CHLORIDE 250 ML IV PRN (14:44)
[2018-03-22] MEDS ORDERED: HEPARIN NA (PORCINE) 5,000 UNITS/ML 1ML VIAL IVPUSH ONE (15:00)
--- NOTE | 2018-03-22 17:36 | CONSULT ---
Consult Consult Specialty:: Nephrology Reason for Consultation:: ESRD - History of Present Illness Chief Complaint: nausea and vomiting History of Present Illness: Pt is a 52 year old female with pmhx of HTN. ESRD and DM who presents with nausea and vomiting. She says she had a few episodes of vomiting. I was called to evaluate as she is on HD. She last went to HD on Monday. SHe denies shortness of breath. She denies chest pain although she did have it a few days ago. she denies fevers or chills. 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 Cardio/Vascular: Yes: HTN, Hyperlipdemia Pulmonary: Yes: Asthma Gastrointestinal: Yes: GERD Renal/: Yes: Renal Failure, Hemodialysis ...LMP: 12/01/14 Endocrine: Yes: Diabetes Mellitus - Past Surgical History Past Surgical History: Yes: AV Fistula/Graft (LUE), (x3) - Alcohol/Substance Use Hx Alcohol Use: No History of Substance Use: reports: None - Smoking History Smoking history: Never smoked Have you smoked in the past 12 months: Yes Aproximately how many cigarettes per day: 6 - Social History ADL: Independent History of Recent Travel: No Home Medications - Allergies Allergies/Adverse Reactions: Allergies Allergy/AdvReac Type Severity Reaction Status Date / Time No Known Drug Allergies Allergy Verified 03/21/18 12:12 - Home Medications Home Medications: Ambulatory Orders Ammonium Lactate Cream [Lac-Hydrin 12% Cream -] 1 applic TP BID 12/14/16 Baclofen 10 mg PO HS 12/14/16 Bisacodyl [Bisacodyl -] 5 mg PO DAILY 12/14/16 Calcium Acetate 667 mg PO AC 12/14/16 Dexlansoprazole [Dexilant] 60 mg PO DAILY 12/14/16 Hydralazine HCl 100 mg PO TID 12/14/16 Magnesium Oxide [Magnesium] 400 mg PO DAILY 12/14/16 Melatonin 3 mg PO HS 12/14/16 Metoclopramide HCl [Reglan -] 10 mg PO TID 12/14/16 Nifedipine [Nifedipine ER] 60 mg PO DAILY 12/14/16 Quetiapine Fumarate [Seroquel -] 25 mg PO HS 12/14/16 Ramipril [Altace] 5 mg PO DAILY 12/14/16 Ranitidine [Zantac -] 150 mg PO DAILY 12/14/16 Sennosides [Senna -] 2 tab PO HS 12/14/16 Vitamin E 400 unit PO DAILY 12/14/16 cloNIDine HCL [Catapres -] 0.4 mg PO TID 12/14/16 Insulin (Levemir) [Levemir Vial] 20 units SQ HS #1 ml 12/16/16 Insulin (Levemir) [Levemir Vial] 35 units SQ AM #1 ml 12/16/16 Family Disease History - Family Disease History Family Disease History: CA: Father (colon cancer) Review of Systems - Review of Systems Constitutional: reports: Malaise. denies: Chills, Fever Eyes: reports: No Symptoms HENT: reports: No Symptoms Neck: reports: No Symptoms Cardiovascular: reports: No Symptoms Respiratory: reports: No Symptoms Gastrointestinal: reports: Nausea Genitourinary: reports: No Symptoms Musculoskeletal: reports: No Symptoms Integumentary: reports: No Symptoms Neurological: reports: No Symptoms Endocrine: reports: No Symptoms, Unexplained Weight Gain Psychiatric: reports: No Symptoms Physical Exam Vital Signs: Vital Signs Temperature 98.0 F 03/22/18 15:20 Pulse Rate 77 03/22/18 15:25 Respiratory Rate 18 03/22/18 15:25 Blood Pressure 148/92 03/22/18 15:25 O2 Sat by Pulse Oximetry (%) 98 03/22/18 11:05 Constitutional: Yes: Calm, Poor Hygeine Eyes: Yes: Conjunctiva Clear Neck: Yes: Supple Cardiovascular: Yes: S1, S2 Respiratory: Yes: CTA Bilaterally Gastrointestinal: Yes: Soft Renal/: Yes: WNL Musculoskeletal: Yes: WNL Edema: No Neurological: Yes: Oriented Psychiatric: Yes: Oriented Labs: CBC, BMP 03/22/18 06:15 03/22/18 06:00 Laboratory Tests 03/21/18 03/22/18 03/22/18 13:21 06:00 06:15 WBC 11.5 H 9.8 Hgb 12.2 Plt Count 292 Sodium 134 L Potassium 4.3 Chloride 96 L Carbon Dioxide 27 BUN 38 H Creatinine 7.7 H* Imaging - Results Chest X-ray: Report Reviewed Problem List - Problems (1) Abdominal pain Code(s): R10.9 - UNSPECIFIED ABDOMINAL PAIN (2) End stage kidney disease Code(s): N18.6 - END STAGE RENAL DISEASE (3) GERD (gastroesophageal reflux disease) Code(s): K21.9 - GASTRO-ESOPHAGEAL REFLUX DISEASE WITHOUT ESOPHAGITIS (4) Gastroparesis Code(s): K31.84 - GASTROPARESIS Assessment/Plan Current Medications Generic Name Dose Route Start Last Admin Trade Name Freq PRN Reason Stop Dose Admin Al Hydroxide/Mg Hydroxide 30 ml 03/21/18 18:50 03/21/18 20:44 Mylanta Oral Suspension - PO 30 ml Q6H PRN Administration DYSPEPSIA Baclofen 10 mg 03/21/18 22:00 03/21/18 23:53 Lioresal - PO 10 mg HS [facility] Administration Bisacodyl 5 mg 03/22/18 10:00 03/22/18 10:25 Dulcolax - PO 5 mg DAILY [facility] Administration Calcium Acetate 667 mg 03/21/18 17:45 03/22/18 12:49 Phoslo - PO 667 mg TIDCM [facility] Administration Clonidine 0.4 mg 03/21/18 22:00 03/22/18 08:25 Catapres - PO 0.4 mg TID [facility] Administration Heparin Sodium (Porcine) 5,000 unit 03/21/18 22:00 03/22/18 08:25 Heparin - SQ 5,000 unit TID [facility] Administration Hydralazine HCl 100 mg 03/21/18 22:00 03/22/18 08:25 Apresoline - PO 100 mg TID [facility] Administration Sodium Chloride 250 mls @ 3,000 mls/hr 03/22/18 14:44 Normal Saline - IV 03/23/18 14:44 PRN PRN Hypotension during Dialysis Insulin Aspart 1 vial 03/22/18 07:00 03/22/18 11:31 Novolog Vial Sliding Scale - SQ Not Given [facility] Protocol Insulin Detemir 20 units 03/21/18 22:00 03/21/18 23:53 Levemir Vial SQ 20 units HS [facility] Administration Insulin Detemir 35 units 03/22/18 07:00 03/22/18 07:00 Levemir Vial SQ Not Given AM [facility] Lactic Acid 1 applic 03/21/18 22:00 03/22/18 10:26 Lac-Hydrin 12 TP 1 applic BID [facility] Administration Magnesium Oxide 400 mg 03/22/18 10:00 03/22/18 10:26 Mag-Ox - PO 400 mg DAILY [facility] Administration Melatonin 3 mg 03/21/18 22:00 03/21/18 23:53 Melatonin PO 3 mg HS [facility] Administration Metoclopramide HCl 5 mg 03/21/18 19:15 03/22/18 11:23 Reglan - PO 5 mg TIDAC [facility] Administration Nifedipine 60 mg 03/22/18 10:00 03/22/18 10:27 Procardia Xl - PO 60 mg DAILY [facility] Administration Pantoprazole Sodium 40 mg 03/22/18 10:00 03/22/18 10:27 Protonix - PO 40 mg DAILY [facility] Administration Quetiapine Fumarate 25 mg 03/21/18 22:00 03/21/18 23:53 Seroquel - PO 25 mg HS [facility] Administration Ramipril 5 mg 03/22/18 10:00 03/22/18 10:25 Altace - PO 5 mg DAILY [facility] Administration Ranitidine HCl 150 mg 03/22/18 10:00 03/22/18 10:27 Zantac - PO 150 mg DAILY [facility] Administration Senna 2 tab 03/21/18 22:00 03/21/18 23:53 Senna - PO 2 tab HS [facility] Administration Vitamin E 400 unit 03/22/18 10:00 03/22/18 10:27 Vitamin E - PO 400 unit DAILY [facility] Administration Impression 1. ESRD 2. DM 3. HTN 4. gastroparesis 5. nausea 6. anemia 7. peripheral neuropathy Plan - will arrange for HD tody - will not if volume as she appears dehydrated - pt usually dialyzes for 3 30 but only wants 3 hrs today - monitor bp - will follow Dr Arredondo
[2018-03-22] MEDS: HEPARIN NA (PORCINE) 5,000 UNITS/ML 1ML VIAL IVPUSH SCH ×3 (19:00→19:03)
[2018-03-22] MEDS: SENNOSIDES 8.6MG TABLET (FP) PO SCH (22:03)
[2018-03-22] MEDS: BACLOFEN 10 MG TABLET (FP) PO SCH (22:03)
[2018-03-22] MEDS: QUEtiapine FUMARATE 25 MG TABLET (FP) PO SCH (22:04)
[2018-03-22] MEDS: MELATONIN 1 MG TABLET PO SCH (22:56)
[2018-03-23] MEDS ORDERED: ACETAMINOPHEN 325 MG TABLET (FP) PO ONE (01:15)
[2018-03-23] MEDS ORDERED: ALBUTEROL SO4 2.5/IPRATROPIUM 0.5 INH SOL 3 ML VIAL.NEB. NEB ONE (04:10)
[2018-03-23] MEDS: METOCLOPRAMIDE HCL 10 MG TABLET (FP) PO SCH ×3 (06:51→17:58)
[2018-03-23] MEDS: HEPARIN NA (PORCINE) 5,000 UNITS/ML 1ML VIAL SQ SCH ×3 (06:51→21:59)
[2018-03-23] MEDS: hydrALAZINE HCL 50 MG TABLET (FP) PO SCH ×3 (06:53→21:54)
[2018-03-23] MEDS: cloNIDine HCL 0.1 MG TABLET PO SCH ×3 (06:53→21:54)
[2018-03-23] MEDS: INSULIN (LEVEMIR) 100 UNITS/ML UNITS SQ SCH ×2 (06:54→21:57)
[2018-03-23] MEDS: INSULIN SLIDING SCALE (NOVOLOG) 1 VIAL SQ SCH ×3 (06:55→17:58)
[2018-03-23] MEDS: CALCIUM ACETATE 667 MG CAPSULE (FP) PO SCH ×3 (08:20→17:58)
[2018-03-23 08:26] LABS: BASO % 0.6 % (0-2.0); HEMOGLOBIN 10.9 GM/dL (10.7-15.3); LYMPH % 14.9 % (8-40); MCH 31.7 pg (25.7-33.7); MCHC 32.2 g/dl (32.0-36.0); MEAN CELL VOLUME 98.5 fl (80-96); MEAN PLT VOLUME 9.4 fl (7.5-11.1); MONO % 8.7 % (3.8-10.2); NEUT % 74.8 % (42.8-82.8); PLATELET COUNT 256 K/MM3 (134-434); RBC 3.45 M/mm3 (3.60-5.2); WHITE BLOOD COUNT 9.4 K/mm3 (4.0-10.0)
[2018-03-23 09:05] LABS: ALBUMIN 3.2 g/dl (3.4-5.0); ALK PHOS 183 U/L (45-117); ANION GAP 9 MMOL/L (8-16); BILIRUBIN,TOTAL 0.4 mg/dL (0.2-1); BLOOD UREA NITROGEN 40 mg/dL (7-18); CALCIUM 7.8 mg/dL (8.5-10.1); CHLORIDE 100 mmol/L (98-107); CO2 26 mmol/L (21-32); CREATININE 5.9 mg/dL (0.55-1.3); GLUCOSE,RANDOM 130 mg/dL (74-106); POTASSIUM 4.7 mmol/L (3.5-5.1); SGOT/AST 35 U/L (15-37); SGPT/ALT 39 U/L (13-61); SODIUM 136 mmol/L (136-145); TOT PROT 6.7 g/dl (6.4-8.2)
[2018-03-23] MEDS ORDERED: SODIUM CHLORIDE 250 ML IV PRN (10:00)
[2018-03-23] MEDS ORDERED: PT OWN MED DRAWER 7, Y5N ONE ×2 (10:53→21:51)
[2018-03-23] MEDS: RANITIDINE HCL 150 MG TABLET (FP) PO SCH (11:01)
[2018-03-23] MEDS: BISACODYL 5 MG TABLET.DR (FP) PO SCH (11:01)
[2018-03-23] MEDS: NIFEdipine E.R 60 MG TABLET (UD) PO SCH (11:01)
[2018-03-23] MEDS: RAMIPRIL 5 MG CAPSULE (FP) PO SCH (11:06)
[2018-03-23] MEDS: MAGNESIUM OXIDE 400 MG TABLET (FP) PO SCH (11:06)
[2018-03-23] MEDS: VITAMIN E 400 INTERNATIONAL-UNITS CAPSULE (FP) PO SCH (11:07)
[2018-03-23] MEDS: PANTOPRAZOLE 40 MG TABLET (FP) PO SCH (11:07)
[2018-03-23] MEDS: AMMONIUM LACTATE 12% LOTION 225 GM BOTTLE TP SCH ×2 (11:08→22:01)
--- NOTE | 2018-03-23 13:33 | PN ---
Progress Note, Physician Chief Complaint: AWAKE ALERT EVENTS AND NOTES REVIEWED - Current Medication List Current Medications: Active Medications Acetaminophen (Tylenol -) 650 mg PO Q6H PRN PRN Reason: PAIN LEVEL 1-5 Al Hydroxide/Mg Hydroxide (Mylanta Oral Suspension -) 30 ml PO Q6H PRN PRN Reason: DYSPEPSIA Last Admin: 03/21/18 20:44 Dose: 30 ml Baclofen (Lioresal -) 10 mg PO [facility] Last Admin: 03/22/18 22:03 Dose: 10 mg Bisacodyl (Dulcolax -) 5 mg PO DAILY [facility] Last Admin: 03/23/18 11:01 Dose: 5 mg Calcium Acetate (Phoslo -) 667 mg PO TIDCM [facility] Last Admin: 03/23/18 12:21 Dose: 667 mg Clonidine (Catapres -) 0.4 mg PO TID [facility] Last Admin: 03/23/18 06:53 Dose: 0.4 mg Heparin Sodium (Porcine) (Heparin -) 5,000 unit SQ TID [facility] Last Admin: 03/23/18 06:51 Dose: 5,000 unit Hydralazine HCl (Apresoline -) 100 mg PO TID [facility] Last Admin: 03/23/18 06:53 Dose: 100 mg Sodium Chloride (Normal Saline -) 250 mls @ 3,000 mls/hr IV PRN PRN PRN Reason: Hypotension during Dialysis Stop: 03/23/18 14:44 Insulin Aspart (Novolog Vial Sliding Scale -) [facility] Protocol Last Admin: 03/23/18 12:20 Dose: 4 units Insulin Detemir (Levemir Vial) 20 units SQ HS [facility] Last Admin: 03/22/18 22:02 Dose: 20 units Insulin Detemir (Levemir Vial) 35 units SQ AM [facility] Last Admin: 03/23/18 06:54 Dose: Not Given Lactic Acid (Lac-Hydrin 12) 1 applic TP BID [facility] Last Admin: 03/23/18 11:08 Dose: 1 applic Magnesium Oxide (Mag-Ox -) 400 mg PO DAILY [facility] Last Admin: 03/23/18 11:06 Dose: 400 mg Melatonin (Melatonin) 3 mg PO [facility] Last Admin: 03/22/18 22:56 Dose: 3 mg Metoclopramide HCl (Reglan -) 5 mg PO TIDAC [facility] Last Admin: 03/23/18 11:01 Dose: 5 mg Nifedipine (Procardia Xl -) 60 mg PO DAILY [facility] Last Admin: 03/23/18 11:01 Dose: 60 mg Pantoprazole Sodium (Protonix -) 40 mg PO DAILY [facility] Last Admin: 03/23/18 11:07 Dose: 40 mg Quetiapine Fumarate (Seroquel -) 25 mg PO HS [facility] Last Admin: 03/22/18 22:04 Dose: 25 mg Ramipril (Altace -) 5 mg PO DAILY [facility] Last Admin: 03/23/18 11:06 Dose: 5 mg Ranitidine HCl (Zantac -) 150 mg PO DAILY [facility] Last Admin: 03/23/18 11:01 Dose: 150 mg Senna (Senna -) 2 tab PO [facility] Last Admin: 03/22/18 22:03 Dose: 2 tab Vitamin E (Vitamin E -) 400 unit PO DAILY [facility] Last Admin: 03/23/18 11:07 Dose: 400 unit - Objective Vital Signs: Vital Signs Temperature 98.2 F 03/23/18 06:00 Pulse Rate 79 03/23/18 06:00 Respiratory Rate 18 03/23/18 06:00 Blood Pressure 152/77 03/23/18 06:00 O2 Sat by Pulse Oximetry (%) 98 03/22/18 22:00 Constitutional: Yes: No Distress Eyes: Yes: WNL HENT: Yes: WNL Neck: Yes: WNL Cardiovascular: Yes: WNL Respiratory: Yes: WNL Gastrointestinal: Yes: WNL Genitourinary: Yes: WNL Musculoskeletal: Yes: WNL Extremities: Yes: WNL Peripheral Pulses WNL: Yes Integumentary: Yes: WNL Wound/Incision: Yes: Clean/Dry Neurological: Yes: WNL ...Motor Strength: WNL Psychiatric: Yes: WNL Labs: CBC, BMP 03/23/18 07:10 03/23/18 07:10 INR, PTT INR 0.90 (0.83-1.09) 03/21/18 13:21 Problem List - Problems (1) Epigastric pain Code(s): R10.13 - EPIGASTRIC PAIN (2) Abdominal pain Code(s): R10.9 - UNSPECIFIED ABDOMINAL PAIN (3) End stage kidney disease Code(s): N18.6 - END STAGE RENAL DISEASE (4) GERD (gastroesophageal reflux disease) Code(s): K21.9 - GASTRO-ESOPHAGEAL REFLUX DISEASE WITHOUT ESOPHAGITIS (5) Gastroparesis Code(s): K31.84 - GASTROPARESIS (6) Type 1 diabetes mellitus with diabetic chronic kidney disease Code(s): E10.22 - TYPE 1 DIABETES MELLITUS W DIABETIC CHRONIC KIDNEY DISEASE; N18.9 - CHRONIC KIDNEY DISEASE, UNSPECIFIED (7) Type 1 diabetes mellitus with diabetic nephropathy Code(s): E10.21 - TYPE 1 DIABETES MELLITUS WITH DIABETIC NEPHROPATHY (8) Vomiting Code(s): R11.10 - VOMITING, UNSPECIFIED Qualifiers: (9) Anemia in chronic kidney disease (CKD) Code(s): N18.9 - CHRONIC KIDNEY DISEASE, UNSPECIFIED; D63.1 - ANEMIA IN CHRONIC KIDNEY DISEASE (10) End stage renal disease on dialysis Code(s): N18.6 - END STAGE RENAL DISEASE; Z99.2 - DEPENDENCE ON RENAL DIALYSIS (11) HTN (hypertension) Code(s): I10 - ESSENTIAL (PRIMARY) HYPERTENSION Qualifiers: Hypertension type: essential hypertension Qualified Code(s): I10 - Essential (primary) hypertension Assessment/Plan ESRD ON HD PAIN CONTROL PPI OKSANA WHITMORE TO CHAIR
--- NOTE | 2018-03-23 14:09 | PN ---
Progress Note, Physician History of Present Illness: Pt seen and examined at bedside. She is awake and alert. She is tolerating diet. - Current Medication List Current Medications: Active Medications Acetaminophen (Tylenol -) 650 mg PO Q6H PRN PRN Reason: PAIN LEVEL 1-5 Al Hydroxide/Mg Hydroxide (Mylanta Oral Suspension -) 30 ml PO Q6H PRN PRN Reason: DYSPEPSIA Last Admin: 03/21/18 20:44 Dose: 30 ml Baclofen (Lioresal -) 10 mg PO HS [facility] Last Admin: 03/22/18 22:03 Dose: 10 mg Bisacodyl (Dulcolax -) 5 mg PO DAILY [facility] Last Admin: 03/23/18 11:01 Dose: 5 mg Calcium Acetate (Phoslo -) 667 mg PO TIDCM [facility] Last Admin: 03/23/18 12:21 Dose: 667 mg Clonidine (Catapres -) 0.4 mg PO TID [facility] Last Admin: 03/23/18 06:53 Dose: 0.4 mg Heparin Sodium (Porcine) (Heparin -) 5,000 unit SQ TID [facility] Last Admin: 03/23/18 06:51 Dose: 5,000 unit Hydralazine HCl (Apresoline -) 100 mg PO TID [facility] Last Admin: 03/23/18 06:53 Dose: 100 mg Sodium Chloride (Normal Saline -) 250 mls @ 3,000 mls/hr IV PRN PRN PRN Reason: Hypotension during Dialysis Stop: 03/23/18 14:44 Insulin Aspart (Novolog Vial Sliding Scale -) 1 vial SQ TIDAC [facility]; Protocol Last Admin: 03/23/18 12:20 Dose: 4 units Insulin Detemir (Levemir Vial) 20 units SQ HS [facility] Last Admin: 03/22/18 22:02 Dose: 20 units Insulin Detemir (Levemir Vial) 35 units SQ AM [facility] Last Admin: 03/23/18 06:54 Dose: Not Given Lactic Acid (Lac-Hydrin 12) 1 applic TP BID [facility] Last Admin: 03/23/18 11:08 Dose: 1 applic Magnesium Oxide (Mag-Ox -) 400 mg PO DAILY [facility] Last Admin: 03/23/18 11:06 Dose: 400 mg Melatonin (Melatonin) 3 mg PO [facility] Last Admin: 03/22/18 22:56 Dose: 3 mg Metoclopramide HCl (Reglan -) 5 mg PO TIDAC [facility] Last Admin: 03/23/18 11:01 Dose: 5 mg Nifedipine (Procardia Xl -) 60 mg PO DAILY [facility] Last Admin: 03/23/18 11:01 Dose: 60 mg Pantoprazole Sodium (Protonix -) 40 mg PO DAILY [facility] Last Admin: 03/23/18 11:07 Dose: 40 mg Quetiapine Fumarate (Seroquel -) 25 mg PO HS [facility] Last Admin: 03/22/18 22:04 Dose: 25 mg Ramipril (Altace -) 5 mg PO DAILY [facility] Last Admin: 03/23/18 11:06 Dose: 5 mg Ranitidine HCl (Zantac -) 150 mg PO DAILY [facility] Last Admin: 03/23/18 11:01 Dose: 150 mg Senna (Senna -) 2 tab PO [facility] Last Admin: 03/22/18 22:03 Dose: 2 tab Vitamin E (Vitamin E -) 400 unit PO DAILY [facility] Last Admin: 03/23/18 11:07 Dose: 400 unit - Objective Vital Signs: Vital Signs Temperature 98.2 F 03/23/18 06:00 Pulse Rate 79 03/23/18 06:00 Respiratory Rate 18 03/23/18 06:00 Blood Pressure 152/77 03/23/18 06:00 O2 Sat by Pulse Oximetry (%) 98 03/22/18 22:00 Constitutional: Yes: Calm Eyes: Yes: Conjunctiva Clear HENT: Yes: Atraumatic Cardiovascular: Yes: S1, S2 Respiratory: Yes: CTA Bilaterally Gastrointestinal: Yes: Soft Genitourinary: Yes: WNL Musculoskeletal: Yes: WNL Edema: No Neurological: Yes: Oriented Psychiatric: Yes: Oriented Labs: CBC, BMP 03/23/18 07:10 03/23/18 07:10 INR, PTT INR 0.90 (0.83-1.09) 03/21/18 13:21 Problem List - Problems (1) Abdominal pain Code(s): R10.9 - UNSPECIFIED ABDOMINAL PAIN (2) End stage kidney disease Code(s): N18.6 - END STAGE RENAL DISEASE (3) GERD (gastroesophageal reflux disease) Code(s): K21.9 - GASTRO-ESOPHAGEAL REFLUX DISEASE WITHOUT ESOPHAGITIS (4) Gastroparesis Code(s): K31.84 - GASTROPARESIS Assessment/Plan Current Medications Generic Name Dose Route Start Last Admin Trade Name Ignacio PRN Reason Stop Dose Admin Acetaminophen 650 mg 03/23/18 11:18 Tylenol - PO Q6H PRN PAIN LEVEL 1-5 Al Hydroxide/Mg Hydroxide 30 ml 03/21/18 18:50 03/21/18 20:44 Mylanta Oral Suspension - PO 30 ml Q6H PRN Administration DYSPEPSIA Baclofen 10 mg 03/21/18 22:00 03/22/18 22:03 Lioresal - PO 10 mg HS [facility] Administration Bisacodyl 5 mg 03/22/18 10:00 03/23/18 11:01 Dulcolax - PO 5 mg DAILY [facility] Administration Calcium Acetate 667 mg 03/21/18 17:45 03/23/18 12:21 Phoslo - PO 667 mg TIDCM [facility] Administration Clonidine 0.4 mg 03/21/18 22:00 03/23/18 06:53 Catapres - PO 0.4 mg TID [facility] Administration Heparin Sodium (Porcine) 5,000 unit 03/21/18 22:00 03/23/18 06:51 Heparin - SQ 5,000 unit TID [facility] Administration Hydralazine HCl 100 mg 03/21/18 22:00 03/23/18 06:53 Apresoline - PO 100 mg TID [facility] Administration Sodium Chloride 250 mls @ 3,000 mls/hr 03/22/18 14:44 Normal Saline - IV 03/23/18 14:44 PRN PRN Hypotension during Dialysis Insulin Aspart 1 vial 03/22/18 07:00 03/23/18 12:20 Novolog Vial Sliding Scale - SQ 4 units TIDAC [facility] Administration Protocol Insulin Detemir 20 units 03/21/18 22:00 03/22/18 22:02 Levemir Vial SQ 20 units HS [facility] Administration Insulin Detemir 35 units 03/22/18 07:00 03/23/18 06:54 Levemir Vial SQ Not Given AM [facility] Lactic Acid 1 applic 03/21/18 22:00 03/23/18 11:08 Lac-Hydrin 12 TP 1 applic BID [facility] Administration Magnesium Oxide 400 mg 03/22/18 10:00 03/23/18 11:06 Mag-Ox - PO 400 mg DAILY [facility] Administration Melatonin 3 mg 03/21/18 22:00 03/22/18 22:56 Melatonin PO 3 mg HS [facility] Administration Metoclopramide HCl 5 mg 03/21/18 19:15 03/23/18 11:01 Reglan - PO 5 mg TIDAC [facility] Administration Nifedipine 60 mg 03/22/18 10:00 03/23/18 11:01 Procardia Xl - PO 60 mg DAILY [facility] Administration Pantoprazole Sodium 40 mg 03/22/18 10:00 03/23/18 11:07 Protonix - PO 40 mg DAILY [facility] Administration Quetiapine Fumarate 25 mg 03/21/18 22:00 03/22/18 22:04 Seroquel - PO 25 mg HS [facility] Administration Ramipril 5 mg 03/22/18 10:00 03/23/18 11:06 Altace - PO 5 mg DAILY [facility] Administration Ranitidine HCl 150 mg 03/22/18 10:00 03/23/18 11:01 Zantac - PO 150 mg DAILY [facility] Administration Senna 2 tab 03/21/18 22:00 03/22/18 22:03 Senna - PO 2 tab HS [facility] Administration Vitamin E 400 unit 03/22/18 10:00 03/23/18 11:07 Vitamin E - PO 400 unit DAILY [facility] Administration Impression 1. ESRD 2. DM 3. HTN 4. gastroparesis 5. nausea 6. anemia 7. peripheral neuropathy Plan - will order HD for tomorrow - pt is on a MWF schedule and should be dialyzed on Monday if she is still here - HD time 330 400 abf 2000 heparin - monitor bp - will follow Dr Arredondo
[2018-03-23] MEDS ORDERED: ONDANSETRON *ODT* 4 MG TABLET SL PRN (15:56)
[2018-03-23] MEDS: ALBUTEROL SO4 2.5/IPRATROPIUM 0.5 INH SOL 3 ML VIAL.NEB. NEB PRN (17:04)
[2018-03-23] MEDS: QUEtiapine FUMARATE 25 MG TABLET (FP) PO SCH (21:54)
[2018-03-23] MEDS: SENNOSIDES 8.6MG TABLET (FP) PO SCH (21:55)
[2018-03-23] MEDS: MELATONIN 1 MG TABLET PO SCH (21:55)
[2018-03-23] MEDS: BACLOFEN 10 MG TABLET (FP) PO SCH (21:55)
[2018-03-24] MEDS: ACETAMINOPHEN 325 MG TABLET (FP) PO PRN ×3 (01:26→23:22)
[2018-03-24] MEDS: ALBUTEROL SO4 2.5/IPRATROPIUM 0.5 INH SOL 3 ML VIAL.NEB. NEB PRN ×3 (01:35→21:47)
[2018-03-24 05:22] LABS: HBSAG SCREEN Negative (Negative); HEP B CORE AB, TOT Negative (Negative)
[2018-03-24] MEDS: HEPARIN NA (PORCINE) 5,000 UNITS/ML 1ML VIAL SQ SCH ×3 (06:05→21:21)
[2018-03-24] MEDS: INSULIN (LEVEMIR) 100 UNITS/ML UNITS SQ SCH ×2 (06:06→21:22)
[2018-03-24] MEDS: INSULIN SLIDING SCALE (NOVOLOG) 1 VIAL SQ SCH ×3 (06:08→16:44)
[2018-03-24] MEDS: cloNIDine HCL 0.1 MG TABLET PO SCH ×3 (06:10→21:21)
[2018-03-24] MEDS: hydrALAZINE HCL 50 MG TABLET (FP) PO SCH ×3 (06:10→21:21)
[2018-03-24] MEDS: METOCLOPRAMIDE HCL 10 MG TABLET (FP) PO SCH ×3 (06:11→16:39)
[2018-03-24] MEDS: CALCIUM ACETATE 667 MG CAPSULE (FP) PO SCH ×2 (08:00→13:45)
[2018-03-24 09:18] LABS: HEMATOCRIT 30.7 % (32.4-45.2); HEMOGLOBIN 10.8 GM/dL (10.7-15.3); MCH 33.6 pg (25.7-33.7); MCHC 35.1 g/dl (32.0-36.0); MEAN CELL VOLUME 95.8 fl (80-96); MEAN PLT VOLUME 9.3 fl (7.5-11.1); PLATELET COUNT 278 K/MM3 (134-434); RBC 3.21 M/mm3 (3.60-5.2); WHITE BLOOD COUNT 8.4 K/mm3 (4.0-10.0)
[2018-03-24 09:54] LABS: ALBUMIN 3.3 g/dl (3.4-5.0); ALK PHOS 179 U/L (45-117); ANION GAP 11 MMOL/L (8-16); BILIRUBIN,TOTAL 0.3 mg/dL (0.2-1); BLOOD UREA NITROGEN 59 mg/dL (7-18); CALCIUM 8.4 mg/dL (8.5-10.1); CHLORIDE 103 mmol/L (98-107); CO2 25 mmol/L (21-32); CREATININE 7.2 mg/dL (0.55-1.3); GLUCOSE,RANDOM 64 mg/dL (74-106); POTASSIUM 4.2 mmol/L (3.5-5.1); SGOT/AST 33 U/L (15-37); SGPT/ALT 47 U/L (13-61); SODIUM 139 mmol/L (136-145); TOT PROT 6.8 g/dl (6.4-8.2)
[2018-03-24] MEDS: HEPARIN NA (PORCINE) 5,000 UNITS/ML 1ML VIAL IVPUSH SCH ×3 (10:00→13:49)
[2018-03-24] MEDS: AMMONIUM LACTATE 12% LOTION 225 GM BOTTLE TP SCH ×2 (10:00→21:22)
[2018-03-24] MEDS ORDERED: HEPARIN NA (PORCINE) 5,000 UNITS/ML 1ML VIAL IVPUSH ONE (10:00)
[2018-03-24] MEDS: PANTOPRAZOLE 40 MG TABLET (FP) PO SCH (13:44)
[2018-03-24] MEDS: RAMIPRIL 5 MG CAPSULE (FP) PO SCH (13:45)
[2018-03-24] MEDS: RANITIDINE HCL 150 MG TABLET (FP) PO SCH (13:45)
[2018-03-24] MEDS: BISACODYL 5 MG TABLET.DR (FP) PO SCH (13:45)
[2018-03-24] MEDS: MAGNESIUM OXIDE 400 MG TABLET (FP) PO SCH (13:45)
[2018-03-24] MEDS: NIFEdipine E.R 60 MG TABLET (UD) PO SCH (13:47)
[2018-03-24] MEDS: VITAMIN E 400 INTERNATIONAL-UNITS CAPSULE (FP) PO SCH (13:48)
--- NOTE | 2018-03-24 15:06 | PN ---
Progress Note (short form) - Note Progress Note: covering dr amado seen in dialysis treatment is uneventful Problems 1. ESRD 2. DM 3. HTN 4. gastroparesis 5. nausea 6. anemia 7. peripheral neuropathy Current Medications Acetaminophen (Tylenol -) 650 mg PO Q6H PRN PRN Reason: PAIN LEVEL 1-5 Last Admin: 03/24/18 01:26 Dose: 650 mg Al Hydroxide/Mg Hydroxide (Mylanta Oral Suspension -) 30 ml PO Q6H PRN PRN Reason: DYSPEPSIA Last Admin: 03/21/18 20:44 Dose: 30 ml Albuterol/Ipratropium (Duoneb -) 1 amp NEB Q6H PRN PRN Reason: SHORTNESS OF BREATH Last Admin: 03/24/18 13:45 Dose: 1 amp Baclofen (Lioresal -) 10 mg PO HS [facility] Last Admin: 03/23/18 21:55 Dose: 10 mg Bisacodyl (Dulcolax -) 5 mg PO DAILY [facility] Last Admin: 03/24/18 13:45 Dose: 5 mg Calcium Acetate (Phoslo -) 667 mg PO TIDCM [facility] Last Admin: 03/24/18 13:45 Dose: 667 mg Clonidine (Catapres -) 0.4 mg PO TID [facility] Last Admin: 03/24/18 13:46 Dose: 0.4 mg Heparin Sodium (Porcine) (Heparin -) 5,000 unit SQ TID [facility] Last Admin: 03/24/18 13:44 Dose: 5,000 unit Hydralazine HCl (Apresoline -) 100 mg PO TID [facility] Last Admin: 03/24/18 13:45 Dose: 100 mg Insulin Aspart (Novolog Vial Sliding Scale -) 1 vial SQ TIDAC [facility]; Protocol Last Admin: 03/24/18 06:08 Dose: 6 units Insulin Detemir (Levemir Vial) 20 units SQ HS [facility] Last Admin: 03/23/18 21:57 Dose: 20 units Insulin Detemir (Levemir Vial) 35 units SQ AM [facility] Last Admin: 03/24/18 06:06 Dose: 35 units Lactic Acid (Lac-Hydrin 12) 1 applic TP BID [facility] Last Admin: 03/24/18 10:00 Dose: 1 applic Magnesium Oxide (Mag-Ox -) 400 mg PO DAILY [facility] Last Admin: 03/24/18 13:45 Dose: 400 mg Melatonin (Melatonin) 3 mg PO HS [facility] Last Admin: 03/23/18 21:55 Dose: 3 mg Metoclopramide HCl (Reglan -) 5 mg PO TIDAC [facility] Last Admin: 03/24/18 13:49 Dose: 5 mg Nifedipine (Procardia Xl -) 60 mg PO DAILY [facility] Last Admin: 03/24/18 13:47 Dose: 60 mg Ondansetron HCl (Zofran Odt -) 4 mg SL Q6H PRN PRN Reason: NAUSEA AND/OR VOMITING Pantoprazole Sodium (Protonix -) 40 mg PO DAILY [facility] Last Admin: 03/24/18 13:44 Dose: 40 mg Quetiapine Fumarate (Seroquel -) 25 mg PO HS [facility] Last Admin: 03/23/18 21:54 Dose: 25 mg Ramipril (Altace -) 5 mg PO DAILY [facility] Last Admin: 03/24/18 13:45 Dose: 5 mg Ranitidine HCl (Zantac -) 150 mg PO DAILY [facility] Last Admin: 03/24/18 13:45 Dose: 150 mg Senna (Senna -) 2 tab PO HS [facility] Last Admin: 03/23/18 21:55 Dose: 2 tab Vitamin E (Vitamin E -) 400 unit PO DAILY [facility] Last Admin: 03/24/18 13:48 Dose: 400 unit Last Vital Signs Temp Pulse Resp BP Pulse Ox 98.4 F 80 18 191/93 H 98 03/24/18 08:50 03/24/18 12:40 03/24/18 12:40 03/24/18 12:40 03/23/18 21:00 CBC, BMP 03/24/18 09:00 03/24/18 09:00 Plan - will order HD for tomorrow - pt is on a MWF schedule and should be dialyzed on Monday if she is still here - HD time 330 400 abf 2000 heparin - monitor bp - will follow
[2018-03-24] MEDS: QUEtiapine FUMARATE 25 MG TABLET (FP) PO SCH (21:21)
[2018-03-24] MEDS: SENNOSIDES 8.6MG TABLET (FP) PO SCH (21:21)
[2018-03-24] MEDS: BACLOFEN 10 MG TABLET (FP) PO SCH (21:22)
[2018-03-24] MEDS: MELATONIN 1 MG TABLET PO SCH (23:43)
[2018-03-25] MEDS: ALBUTEROL SO4 2.5/IPRATROPIUM 0.5 INH SOL 3 ML VIAL.NEB. NEB PRN ×2 (03:54→15:58)
[2018-03-25] MEDS: hydrALAZINE HCL 50 MG TABLET (FP) PO SCH ×3 (06:43→22:31)
[2018-03-25] MEDS: METOCLOPRAMIDE HCL 10 MG TABLET (FP) PO SCH ×3 (06:43→17:07)
[2018-03-25] MEDS: HEPARIN NA (PORCINE) 5,000 UNITS/ML 1ML VIAL SQ SCH ×3 (06:44→22:31)
[2018-03-25] MEDS: cloNIDine HCL 0.1 MG TABLET PO SCH ×3 (06:44→22:31)
[2018-03-25] MEDS: INSULIN (LEVEMIR) 100 UNITS/ML UNITS SQ SCH ×2 (06:45→22:33)
[2018-03-25] MEDS: INSULIN SLIDING SCALE (NOVOLOG) 1 VIAL SQ SCH ×3 (06:48→17:08)
--- NOTE | 2018-03-25 08:19 | PN ---
Progress Note, Physician Chief Complaint: IN HD BP ELEVATED AND HYPOGLYCEMIC FIVEN JUICE AND A MEAL WITH GOOD RESPONSE - Current Medication List Current Medications: Active Medications Acetaminophen (Tylenol -) 650 mg PO Q6H PRN PRN Reason: PAIN LEVEL 1-5 Last Admin: 03/24/18 23:22 Dose: 650 mg Al Hydroxide/Mg Hydroxide (Mylanta Oral Suspension -) 30 ml PO Q6H PRN PRN Reason: DYSPEPSIA Last Admin: 03/21/18 20:44 Dose: 30 ml Albuterol/Ipratropium (Duoneb -) 1 amp NEB Q6H PRN PRN Reason: SHORTNESS OF BREATH Last Admin: 03/25/18 03:54 Dose: 1 amp Baclofen (Lioresal -) 10 mg PO [facility] Last Admin: 03/24/18 21:22 Dose: 10 mg Bisacodyl (Dulcolax -) 5 mg PO DAILY [facility] Last Admin: 03/24/18 13:45 Dose: 5 mg Calcium Acetate (Phoslo -) 667 mg PO TIDCM [facility] Last Admin: 03/24/18 13:45 Dose: 667 mg Clonidine (Catapres -) 0.4 mg PO TID [facility] Last Admin: 03/25/18 06:44 Dose: 0.4 mg Heparin Sodium (Porcine) (Heparin -) 5,000 unit SQ TID [facility] Last Admin: 03/25/18 06:44 Dose: 5,000 unit Hydralazine HCl (Apresoline -) 100 mg PO TID [facility] Last Admin: 03/25/18 06:43 Dose: 100 mg Insulin Aspart (Novolog Vial Sliding Scale -) 1 vial SQ TIDAC [facility]; Protocol Last Admin: 03/25/18 06:48 Dose: 4 units Insulin Detemir (Levemir Vial) 20 units SQ HS [facility] Last Admin: 03/24/18 21:22 Dose: 20 units Insulin Detemir (Levemir Vial) 35 units SQ AM [facility] Last Admin: 03/25/18 06:45 Dose: 35 units Lactic Acid (Lac-Hydrin 12) 1 applic TP BID [facility] Last Admin: 03/24/18 21:22 Dose: 1 applic Magnesium Oxide (Mag-Ox -) 400 mg PO DAILY [facility] Last Admin: 03/24/18 13:45 Dose: 400 mg Melatonin (Melatonin) 3 mg PO [facility] Last Admin: 03/24/18 23:43 Dose: 3 mg Metoclopramide HCl (Reglan -) 5 mg PO TIDAC [facility] Last Admin: 03/25/18 06:43 Dose: 5 mg Nifedipine (Procardia Xl -) 60 mg PO DAILY [facility] Last Admin: 03/24/18 13:47 Dose: 60 mg Ondansetron HCl (Zofran Odt -) 4 mg SL Q6H PRN PRN Reason: NAUSEA AND/OR VOMITING Pantoprazole Sodium (Protonix -) 40 mg PO DAILY [facility] Last Admin: 03/24/18 13:44 Dose: 40 mg Quetiapine Fumarate (Seroquel -) 25 mg PO HS [facility] Last Admin: 03/24/18 21:21 Dose: 25 mg Ramipril (Altace -) 5 mg PO DAILY [facility] Last Admin: 03/24/18 13:45 Dose: 5 mg Ranitidine HCl (Zantac -) 150 mg PO DAILY [facility] Last Admin: 03/24/18 13:45 Dose: 150 mg Senna (Senna -) 2 tab PO [facility] Last Admin: 03/24/18 21:21 Dose: 2 tab Vitamin E (Vitamin E -) 400 unit PO DAILY [facility] Last Admin: 03/24/18 13:48 Dose: 400 unit - Objective Vital Signs: Vital Signs Temperature 98.3 F 03/25/18 06:00 Pulse Rate 90 03/25/18 06:00 Respiratory Rate 20 03/25/18 06:00 Blood Pressure 168/76 03/25/18 06:00 O2 Sat by Pulse Oximetry (%) 98 03/24/18 22:00 Constitutional: Yes: Mild Distress Eyes: Yes: WNL HENT: Yes: WNL Neck: Yes: WNL Cardiovascular: Yes: WNL Respiratory: Yes: WNL Gastrointestinal: Yes: WNL Genitourinary: Yes: Other Musculoskeletal: Yes: WNL Extremities: Yes: WNL Edema: No Peripheral Pulses WNL: Yes Integumentary: Yes: WNL Wound/Incision: Yes: Clean/Dry Neurological: Yes: WNL ...Motor Strength: WNL Psychiatric: Yes: WNL Labs: CBC, BMP 03/24/18 09:00 03/24/18 09:00 INR, PTT INR 0.90 (0.83-1.09) 03/21/18 13:21 Problem List - Problems (1) Epigastric pain Code(s): R10.13 - EPIGASTRIC PAIN (2) Abdominal pain Code(s): R10.9 - UNSPECIFIED ABDOMINAL PAIN (3) End stage kidney disease Code(s): N18.6 - END STAGE RENAL DISEASE (4) GERD (gastroesophageal reflux disease) Code(s): K21.9 - GASTRO-ESOPHAGEAL REFLUX DISEASE WITHOUT ESOPHAGITIS (5) Gastroparesis Code(s): K31.84 - GASTROPARESIS (6) Type 1 diabetes mellitus with diabetic chronic kidney disease Code(s): E10.22 - TYPE 1 DIABETES MELLITUS W DIABETIC CHRONIC KIDNEY DISEASE; N18.9 - CHRONIC KIDNEY DISEASE, UNSPECIFIED (7) Type 1 diabetes mellitus with diabetic nephropathy Code(s): E10.21 - TYPE 1 DIABETES MELLITUS WITH DIABETIC NEPHROPATHY (8) Vomiting Code(s): R11.10 - VOMITING, UNSPECIFIED Qualifiers: (9) Anemia in chronic kidney disease (CKD) Code(s): N18.9 - CHRONIC KIDNEY DISEASE, UNSPECIFIED; D63.1 - ANEMIA IN CHRONIC KIDNEY DISEASE (10) End stage renal disease on dialysis Code(s): N18.6 - END STAGE RENAL DISEASE; Z99.2 - DEPENDENCE ON RENAL DIALYSIS (11) HTN (hypertension) Code(s): I10 - ESSENTIAL (PRIMARY) HYPERTENSION Qualifiers: Hypertension type: essential hypertension Qualified Code(s): I10 - Essential (primary) hypertension (12) Hypoglycemia Code(s): E16.2 - HYPOGLYCEMIA, UNSPECIFIED (13) Malignant hypertension Code(s): I10 - ESSENTIAL (PRIMARY) HYPERTENSION Assessment/Plan INCREASE BP MEDS, D/W NURSE MONITOR BGM PAIN CONTROL HD PER RENAL CHECK LABS
--- NOTE | 2018-03-25 08:21 | PN ---
Progress Note (short form) - Note Progress Note: THE NOTE FROM 03/25/18 AT 8:20 AM WAS FOR 03/24/18. I MISDATED THE DRAFT. I WILL WRITE DISCHARGE ORDERS AND DISCHARGE SUMMARY FOR TODAY 03/25/18 Problem List - Problems (1) Epigastric pain Code(s): R10.13 - EPIGASTRIC PAIN (2) Abdominal pain Code(s): R10.9 - UNSPECIFIED ABDOMINAL PAIN (3) End stage kidney disease Code(s): N18.6 - END STAGE RENAL DISEASE (4) GERD (gastroesophageal reflux disease) Code(s): K21.9 - GASTRO-ESOPHAGEAL REFLUX DISEASE WITHOUT ESOPHAGITIS (5) Gastroparesis Code(s): K31.84 - GASTROPARESIS (6) Type 1 diabetes mellitus with diabetic chronic kidney disease Code(s): E10.22 - TYPE 1 DIABETES MELLITUS W DIABETIC CHRONIC KIDNEY DISEASE; N18.9 - CHRONIC KIDNEY DISEASE, UNSPECIFIED (7) Type 1 diabetes mellitus with diabetic nephropathy Code(s): E10.21 - TYPE 1 DIABETES MELLITUS WITH DIABETIC NEPHROPATHY (8) Vomiting Code(s): R11.10 - VOMITING, UNSPECIFIED Qualifiers: (9) Anemia in chronic kidney disease (CKD) Code(s): N18.9 - CHRONIC KIDNEY DISEASE, UNSPECIFIED; D63.1 - ANEMIA IN CHRONIC KIDNEY DISEASE (10) End stage renal disease on dialysis Code(s): N18.6 - END STAGE RENAL DISEASE; Z99.2 - DEPENDENCE ON RENAL DIALYSIS (11) HTN (hypertension) Code(s): I10 - ESSENTIAL (PRIMARY) HYPERTENSION Qualifiers: Hypertension type: essential hypertension Qualified Code(s): I10 - Essential (primary) hypertension (12) Hypoglycemia Code(s): E16.2 - HYPOGLYCEMIA, UNSPECIFIED (13) Malignant hypertension Code(s): I10 - ESSENTIAL (PRIMARY) HYPERTENSION
[2018-03-25] MEDS: CALCIUM ACETATE 667 MG CAPSULE (FP) PO SCH ×4 (08:35→17:07)
[2018-03-25] MEDS: RANITIDINE HCL 150 MG TABLET (FP) PO SCH (10:05)
[2018-03-25] MEDS: PANTOPRAZOLE 40 MG TABLET (FP) PO SCH (10:05)
[2018-03-25] MEDS: RAMIPRIL 5 MG CAPSULE (FP) PO SCH (10:05)
[2018-03-25] MEDS: MAGNESIUM OXIDE 400 MG TABLET (FP) PO SCH (10:05)
[2018-03-25] MEDS: NIFEdipine E.R 60 MG TABLET (UD) PO SCH (10:05)
[2018-03-25] MEDS: BISACODYL 5 MG TABLET.DR (FP) PO SCH (10:05)
[2018-03-25] MEDS: VITAMIN E 400 INTERNATIONAL-UNITS CAPSULE (FP) PO SCH (10:06)
[2018-03-25] MEDS ORDERED: SODIUM CHLORIDE NASAL SPRAY 44 ML BOTTLE NS PRN (12:23)
[2018-03-25] MEDS ORDERED: guaiFENesin/CODEINE 5 ML UNIT-DOSE CUPS PO PRN (12:23)
--- NOTE | 2018-03-25 12:26 | PN ---
Progress Note, Physician Chief Complaint: AWAKE ALERT C/O COUGH - Current Medication List Current Medications: Active Medications Acetaminophen (Tylenol -) 650 mg PO Q6H PRN PRN Reason: PAIN LEVEL 1-5 Last Admin: 03/24/18 23:22 Dose: 650 mg Al Hydroxide/Mg Hydroxide (Mylanta Oral Suspension -) 30 ml PO Q6H PRN PRN Reason: DYSPEPSIA Last Admin: 03/21/18 20:44 Dose: 30 ml Albuterol/Ipratropium (Duoneb -) 1 amp NEB Q6H PRN PRN Reason: SHORTNESS OF BREATH Last Admin: 03/25/18 03:54 Dose: 1 amp Baclofen (Lioresal -) 10 mg PO [facility] Last Admin: 03/24/18 21:22 Dose: 10 mg Bisacodyl (Dulcolax -) 5 mg PO DAILY [facility] Last Admin: 03/25/18 10:05 Dose: 5 mg Calcium Acetate (Phoslo -) 667 mg PO TIDCM [facility] Last Admin: 03/25/18 10:04 Dose: Not Given Clonidine (Catapres -) 0.4 mg PO TID [facility] Last Admin: 03/25/18 06:44 Dose: 0.4 mg Fluticasone Propionate (Flonase -) 2 spray NS DAILY [facility] Heparin Sodium (Porcine) (Heparin -) 5,000 unit SQ TID [facility] Last Admin: 03/25/18 06:44 Dose: 5,000 unit Hydralazine HCl (Apresoline -) 100 mg PO TID [facility] Last Admin: 03/25/18 06:43 Dose: 100 mg Insulin Aspart (Novolog Vial Sliding Scale -) 1 vial SQ TIDAC [facility]; Protocol Last Admin: 03/25/18 06:48 Dose: 4 units Insulin Detemir (Levemir Vial) 20 units SQ HS [facility] Last Admin: 03/24/18 21:22 Dose: 20 units Insulin Detemir (Levemir Vial) 35 units SQ AM [facility] Last Admin: 03/25/18 06:45 Dose: 35 units Lactic Acid (Lac-Hydrin 12) 1 applic TP BID [facility] Last Admin: 03/24/18 21:22 Dose: 1 applic Loratadine (Claritin -) 10 mg PO DAILY [facility] Magnesium Oxide (Mag-Ox -) 400 mg PO DAILY [facility] Last Admin: 03/25/18 10:05 Dose: 400 mg Melatonin (Melatonin) 3 mg PO HS [facility] Last Admin: 03/24/18 23:43 Dose: 3 mg Metoclopramide HCl (Reglan -) 5 mg PO TIDAC [facility] Last Admin: 03/25/18 06:43 Dose: 5 mg Nifedipine (Procardia Xl -) 60 mg PO DAILY [facility] Last Admin: 03/25/18 10:05 Dose: 60 mg Ondansetron HCl (Zofran Odt -) 4 mg SL Q6H PRN PRN Reason: NAUSEA AND/OR VOMITING Pantoprazole Sodium (Protonix -) 40 mg PO DAILY [facility] Last Admin: 03/25/18 10:05 Dose: 40 mg Quetiapine Fumarate (Seroquel -) 25 mg PO HS [facility] Last Admin: 03/24/18 21:21 Dose: 25 mg Ramipril (Altace -) 5 mg PO DAILY [facility] Last Admin: 03/25/18 10:05 Dose: 5 mg Ranitidine HCl (Zantac -) 150 mg PO DAILY [facility] Last Admin: 03/25/18 10:05 Dose: 150 mg Senna (Senna -) 2 tab PO HS [facility] Last Admin: 03/24/18 21:21 Dose: 2 tab Sodium Chloride ([place] Nasal [place] -) 2 spray NS TID PRN PRN Reason: NASAL CONGESTION Vitamin E (Vitamin E -) 400 unit PO DAILY [facility] Last Admin: 03/25/18 10:06 Dose: 400 unit - Objective Vital Signs: Vital Signs Temperature 98.4 F 03/25/18 09:00 Pulse Rate 84 03/25/18 09:00 Respiratory Rate 16 03/25/18 09:00 Blood Pressure 155/80 03/25/18 09:00 O2 Sat by Pulse Oximetry (%) 98 03/25/18 09:00 Constitutional: Yes: Mild Distress Eyes: Yes: WNL HENT: Yes: Nasal Congestion Neck: Yes: WNL Cardiovascular: Yes: WNL Respiratory: Yes: WNL Gastrointestinal: Yes: WNL Genitourinary: Yes: Other Musculoskeletal: Yes: Muscle Weakness Extremities: Yes: WNL Edema: No Peripheral Pulses WNL: Yes Integumentary: Yes: WNL Wound/Incision: Yes: Clean/Dry Neurological: Yes: WNL ...Motor Strength: WNL Psychiatric: Yes: WNL Labs: CBC, BMP 03/24/18 09:00 03/24/18 09:00 INR, PTT INR 0.90 (0.83-1.09) 03/21/18 13:21 Problem List - Problems (1) Epigastric pain Code(s): R10.13 - EPIGASTRIC PAIN (2) Abdominal pain Code(s): R10.9 - UNSPECIFIED ABDOMINAL PAIN (3) End stage kidney disease Code(s): N18.6 - END STAGE RENAL DISEASE (4) GERD (gastroesophageal reflux disease) Code(s): K21.9 - GASTRO-ESOPHAGEAL REFLUX DISEASE WITHOUT ESOPHAGITIS (5) Gastroparesis Code(s): K31.84 - GASTROPARESIS (6) Type 1 diabetes mellitus with diabetic chronic kidney disease Code(s): E10.22 - TYPE 1 DIABETES MELLITUS W DIABETIC CHRONIC KIDNEY DISEASE; N18.9 - CHRONIC KIDNEY DISEASE, UNSPECIFIED (7) Type 1 diabetes mellitus with diabetic nephropathy Code(s): E10.21 - TYPE 1 DIABETES MELLITUS WITH DIABETIC NEPHROPATHY (8) Vomiting Code(s): R11.10 - VOMITING, UNSPECIFIED Qualifiers: (9) Anemia in chronic kidney disease (CKD) Code(s): N18.9 - CHRONIC KIDNEY DISEASE, UNSPECIFIED; D63.1 - ANEMIA IN CHRONIC KIDNEY DISEASE (10) End stage renal disease on dialysis Code(s): N18.6 - END STAGE RENAL DISEASE; Z99.2 - DEPENDENCE ON RENAL DIALYSIS (11) HTN (hypertension) Code(s): I10 - ESSENTIAL (PRIMARY) HYPERTENSION Qualifiers: Hypertension type: essential hypertension Qualified Code(s): I10 - Essential (primary) hypertension (12) Hypoglycemia Code(s): E16.2 - HYPOGLYCEMIA, UNSPECIFIED (13) Malignant hypertension Code(s): I10 - ESSENTIAL (PRIMARY) HYPERTENSION Assessment/Plan CLARITON/NASAL SPRAY ROBITUSSIN AC INCREASE BP MEDS, D/W NURSE MONITOR BGM PAIN CONTROL HD PER RENAL CHECK LABS
[2018-03-25] MEDS: FLUTICASONE PROP 0.05% 16 GM NASAL SPRAY NS SCH (13:25)
[2018-03-25] MEDS: AMMONIUM LACTATE 12% LOTION 225 GM BOTTLE TP SCH ×2 (13:28→22:37)
[2018-03-25] MEDS: ACETAMINOPHEN 325 MG TABLET (FP) PO PRN (17:14)
--- NOTE | 2018-03-25 21:22 | PN ---
Progress Note (short form) - Note Progress Note: covering dr amado Problems 1. ESRD 2. DM 3. HTN 4. gastroparesis 5. nausea 6. anemia 7. peripheral neuropathy Current Medications Acetaminophen (Tylenol -) 650 mg PO Q6H PRN PRN Reason: PAIN LEVEL 1-5 Last Admin: 03/25/18 17:14 Dose: 650 mg Al Hydroxide/Mg Hydroxide (Mylanta Oral Suspension -) 30 ml PO Q6H PRN PRN Reason: DYSPEPSIA Last Admin: 03/21/18 20:44 Dose: 30 ml Albuterol/Ipratropium (Duoneb -) 1 amp NEB Q6H PRN PRN Reason: SHORTNESS OF BREATH Last Admin: 03/25/18 15:58 Dose: 1 amp Baclofen (Lioresal -) 10 mg PO HS [facility] Last Admin: 03/24/18 21:22 Dose: 10 mg Bisacodyl (Dulcolax -) 5 mg PO DAILY [facility] Last Admin: 03/25/18 10:05 Dose: 5 mg Calcium Acetate (Phoslo -) 667 mg PO TIDCM [facility] Last Admin: 03/25/18 17:07 Dose: 667 mg Clonidine (Catapres -) 0.4 mg PO TID [facility] Last Admin: 03/25/18 13:24 Dose: 0.4 mg Fluticasone Propionate (Flonase -) 2 spray NS DAILY [facility] Last Admin: 03/25/18 13:25 Dose: Not Given Guaifenesin/Codeine Phosphate (Robitussin Ac -) 5 ml PO Q8H PRN PRN Reason: COUGH Heparin Sodium (Porcine) (Heparin -) 5,000 unit SQ TID [facility] Last Admin: 03/25/18 13:25 Dose: 5,000 unit Hydralazine HCl (Apresoline -) 100 mg PO TID [facility] Last Admin: 03/25/18 13:27 Dose: 100 mg Insulin Aspart (Novolog Vial Sliding Scale -) 1 vial SQ TIDAC [facility]; Protocol Last Admin: 03/25/18 17:08 Dose: Not Given Insulin Detemir (Levemir Vial) 20 units SQ HS [facility] Last Admin: 03/24/18 21:22 Dose: 20 units Insulin Detemir (Levemir Vial) 35 units SQ AM [facility] Last Admin: 03/25/18 06:45 Dose: 35 units Lactic Acid (Lac-Hydrin 12) 1 applic TP BID [facility] Last Admin: 03/25/18 13:28 Dose: 1 applic Loratadine (Claritin -) 10 mg PO DAILY [facility] Magnesium Oxide (Mag-Ox -) 400 mg PO DAILY [facility] Last Admin: 03/25/18 10:05 Dose: 400 mg Melatonin (Melatonin) 3 mg PO HS [facility] Last Admin: 03/24/18 23:43 Dose: 3 mg Metoclopramide HCl (Reglan -) 5 mg PO TIDAC [facility] Last Admin: 03/25/18 17:07 Dose: 5 mg Nifedipine (Procardia Xl -) 60 mg PO DAILY [facility] Last Admin: 03/25/18 10:05 Dose: 60 mg Ondansetron HCl (Zofran Odt -) 4 mg SL Q6H PRN PRN Reason: NAUSEA AND/OR VOMITING Pantoprazole Sodium (Protonix -) 40 mg PO DAILY [facility] Last Admin: 03/25/18 10:05 Dose: 40 mg Quetiapine Fumarate (Seroquel -) 25 mg PO HS [facility] Last Admin: 03/24/18 21:21 Dose: 25 mg Ramipril (Altace -) 5 mg PO DAILY [facility] Last Admin: 03/25/18 10:05 Dose: 5 mg Ranitidine HCl (Zantac -) 150 mg PO DAILY [facility] Last Admin: 03/25/18 10:05 Dose: 150 mg Senna (Senna -) 2 tab PO HS [facility] Last Admin: 03/24/18 21:21 Dose: 2 tab Sodium Chloride ([place] Nasal [place] -) 2 spray NS Q8H PRN PRN Reason: NASAL CONGESTION Vitamin E (Vitamin E -) 400 unit PO DAILY [facility] Last Admin: 03/25/18 10:06 Dose: 400 unit Last Vital Signs Temp Pulse Resp BP Pulse Ox 98.7 F 95 H 20 151/66 98 03/25/18 16:30 03/25/18 16:30 03/25/18 16:30 03/25/18 16:30 03/25/18 09:00 alert in nad Lungs clear Heart reg Abd soft Ext no edema CBC, BMP 03/24/18 09:00 03/24/18 09:00 Plan- Monday (MW)
[2018-03-25] MEDS ORDERED: SODIUM CHLORIDE 250 ML IV PRN (21:24)
[2018-03-25] MEDS ORDERED: PT OWN MED DRAWER 7, Y5N ONE ×2 (22:14→22:55)
[2018-03-25] MEDS: QUEtiapine FUMARATE 25 MG TABLET (FP) PO SCH (22:31)
[2018-03-25] MEDS: BACLOFEN 10 MG TABLET (FP) PO SCH (22:31)
[2018-03-25] MEDS: SENNOSIDES 8.6MG TABLET (FP) PO SCH (22:31)
[2018-03-25] MEDS: MELATONIN 1 MG TABLET PO SCH (22:32)
[2018-03-26] MEDS: hydrALAZINE HCL 50 MG TABLET (FP) PO SCH ×2 (06:00→15:32)
[2018-03-26] MEDS: HEPARIN NA (PORCINE) 5,000 UNITS/ML 1ML VIAL SQ SCH ×2 (06:00→15:32)
[2018-03-26] MEDS: cloNIDine HCL 0.1 MG TABLET PO SCH ×2 (06:00→15:31)
[2018-03-26] MEDS ORDERED: PT OWN MED DRAWER 7, Y5N ONE ×5 (06:18→10:41)
[2018-03-26] MEDS: METOCLOPRAMIDE HCL 10 MG TABLET (FP) PO SCH ×2 (06:42→12:27)
[2018-03-26] MEDS: ACETAMINOPHEN 325 MG TABLET (FP) PO PRN (06:43)
[2018-03-26] MEDS: INSULIN SLIDING SCALE (NOVOLOG) 1 VIAL SQ SCH ×2 (07:01→12:27)
[2018-03-26] MEDS: INSULIN (LEVEMIR) 100 UNITS/ML UNITS SQ SCH (07:02)
[2018-03-26] MEDS ORDERED: INSULIN (NOVOLOG) ASPART 100 UNITS/ML 10ML VIAL ONE (07:16)
[2018-03-26] MEDS ORDERED: INSULIN (LEVEMIR) 100 UNITS/ML UNITS SQ ONE (07:17)
[2018-03-26] MEDS: ALBUTEROL SO4 2.5/IPRATROPIUM 0.5 INH SOL 3 ML VIAL.NEB. NEB PRN (07:28)
[2018-03-26] MEDS: CALCIUM ACETATE 667 MG CAPSULE (FP) PO SCH ×2 (08:15→12:26)
[2018-03-26] MEDS: BISACODYL 5 MG TABLET.DR (FP) PO SCH (09:14)
[2018-03-26] MEDS: NIFEdipine E.R 60 MG TABLET (UD) PO SCH (09:14)
[2018-03-26] MEDS: PANTOPRAZOLE 40 MG TABLET (FP) PO SCH (09:14)
[2018-03-26] MEDS: RANITIDINE HCL 150 MG TABLET (FP) PO SCH (09:14)
[2018-03-26] MEDS: MAGNESIUM OXIDE 400 MG TABLET (FP) PO SCH (09:14)
[2018-03-26] MEDS: RAMIPRIL 5 MG CAPSULE (FP) PO SCH (09:15)
[2018-03-26] MEDS: AMMONIUM LACTATE 12% LOTION 225 GM BOTTLE TP SCH (09:16)
[2018-03-26] MEDS: VITAMIN E 400 INTERNATIONAL-UNITS CAPSULE (FP) PO SCH (09:16)
[2018-03-26] MEDS: FLUTICASONE PROP 0.05% 16 GM NASAL SPRAY NS SCH (09:19)
[2018-03-26] MEDS ORDERED: LORATADINE 10 MG TABLET PO SCH (10:00)
[2018-03-26 10:59] LABS: HEMATOCRIT 28.2 % (32.4-45.2); HEMOGLOBIN 9.7 GM/dL (10.7-15.3); MCH 32.9 pg (25.7-33.7); MCHC 34.5 g/dl (32.0-36.0); MEAN CELL VOLUME 95.3 fl (80-96); MEAN PLT VOLUME 9.4 fl (7.5-11.1); PLATELET COUNT 249 K/MM3 (134-434); RBC 2.96 M/mm3 (3.60-5.2); RDW 15.1 % (11.6-15.6); WHITE BLOOD COUNT 6.2 K/mm3 (4.0-10.0)
[2018-03-26 11:42] LABS: ALK PHOS 219 U/L (45-117); ANION GAP 9 MMOL/L (8-16); BILIRUBIN,TOTAL 0.3 mg/dL (0.2-1); BLOOD UREA NITROGEN 45 mg/dL (7-18); CALCIUM 8.8 mg/dL (8.5-10.1); CHLORIDE 102 mmol/L (98-107); CO2 27 mmol/L (21-32); CREATININE 4.8 mg/dL (0.55-1.3); GLUCOSE,RANDOM 179 mg/dL (74-106); PHOSPHOROUS 2.9 mg/dL (2.5-4.9); POTASSIUM 3.7 mmol/L (3.5-5.1); SGOT/AST 37 U/L (15-37); SGPT/ALT 60 U/L (13-61); SODIUM 138 mmol/L (136-145); TOT PROT 6.4 g/dl (6.4-8.2)
[2018-03-26] MEDS ORDERED: BISACODYL 5 MG TABLET.DR (FP) PO SCH (12:51)
--- NOTE | 2018-03-26 12:54 | DS ---
Physical Examination Vital Signs: Vital Signs Temperature 97.8 F 03/26/18 10:05 Pulse Rate 77 03/26/18 12:10 Respiratory Rate 18 03/26/18 12:10 Blood Pressure 125/61 03/26/18 12:10 O2 Sat by Pulse Oximetry (%) 98 03/26/18 09:00 Constitutional: Yes: Calm Cardiovascular: Yes: Regular Rate and Rhythm, S1, S2 Respiratory: Yes: CTA Bilaterally Gastrointestinal: Yes: Normal Bowel Sounds, Soft Neurological: Yes: Alert, Oriented Labs: CBC, BMP 03/26/18 10:15 03/26/18 10:15 Discharge Summary Reason For Visit: ATYPICAL CHEST PAIN Current Active Problems Chest pain (Acute) Epigastric pain (Acute) Hypoglycemia (Acute) Malignant hypertension (Acute) Hospital Course: CHIEF COMPLAINT: Nausea vomiting x 1 week PCP/Industrial Engineering Analyst: Derrek Barrios MD GI: Dr. Magno Sandoval HISTORY OF PRESENT ILLNESS: 52 year old female with a PMH significant for HTN, IDDM, ESRD (on HD), diabetic gastroparesis, and anxiety/depression presented to the ED with nausea and vomiting for the past week with very little PO intake. Patient reports a burning sensation in her epigastric region, nausea, and vomiting started on Monday the day after Thanksgiving. She would throw up white, frothy liquid, no blood. She started having intermittent, left-sided chest pain today, and the pain got so sharp, she was only able to complete approximately 35 minutes. She has had very little food since the onset of her symptoms, but she feels hungry and feels she could tolerate some broth. She used to have episodes of GI upset like this very frequently over the past 20 years, but she has not had any exacerbations for one year. She did not take her medications today. Denies syncope, seizures, SOB or hemoptysis. Upon admission to the ED, VSS. Labs notable for slightly elevated WBC of 11.5, troponin #1 negative, lipase WNL. EKG with prolonged QTc, CXR unremarkable. Patient was treated with a GI cocktail of Mylanta, Reglan, Pepcid, Sucralfate, and Protonix. Patient's GI specialist Dr. Sandoval notified patient has been admitted and he will see her tomorrow. Patient reports she feels about the same as when she was admitted to the ED, still having nausea and dry heaves. patient seen in ER started on reglan and protonix now much better ready for DC home Condition: Fair - Instructions Referrals: Katalina Sanchez [Primary Care Provider] - Disposition: HOME - Home Medications Comprehensive Discharge Medication List: Ambulatory Orders Ammonium Lactate Cream [Lac-Hydrin 12% Cream -] 1 applic TP BID 12/14/16 Baclofen 10 mg PO HS 12/14/16 Bisacodyl [Bisacodyl -] 5 mg PO DAILY 12/14/16 Calcium Acetate 667 mg PO AC 12/14/16 Dexlansoprazole [Dexilant] 60 mg PO DAILY 12/14/16 Hydralazine HCl 100 mg PO TID 12/14/16 Magnesium Oxide [Magnesium] 400 mg PO DAILY 12/14/16 Melatonin 3 mg PO HS 12/14/16 Metoclopramide HCl [Reglan -] 10 mg PO TID 12/14/16 Nifedipine [Nifedipine ER] 60 mg PO DAILY 12/14/16 Quetiapine Fumarate [Seroquel -] 25 mg PO HS 12/14/16 Ramipril [Altace] 5 mg PO DAILY 12/14/16 Ranitidine [Zantac -] 150 mg PO DAILY 12/14/16 Sennosides [Senna -] 2 tab PO HS 12/14/16 Vitamin E 400 unit PO DAILY 12/14/16 cloNIDine HCL [Catapres -] 0.4 mg PO TID 12/14/16 Insulin (Levemir) [Levemir Vial] 20 units SQ HS #1 ml 12/16/16 Insulin (Levemir) [Levemir Vial] 35 units SQ AM #1 ml 12/16/16
--- NOTE | 2018-03-26 14:02 | PN ---
Progress Note, Physician History of Present Illness: Pt seen and examined at bedside. She is tolerating HD. - Current Medication List Current Medications: Active Medications Acetaminophen (Tylenol -) 650 mg PO Q6H PRN PRN Reason: PAIN LEVEL 1-5 Last Admin: 03/26/18 06:43 Dose: 650 mg Al Hydroxide/Mg Hydroxide (Mylanta Oral Suspension -) 30 ml PO Q6H PRN PRN Reason: DYSPEPSIA Last Admin: 03/21/18 20:44 Dose: 30 ml Albuterol/Ipratropium (Duoneb -) 1 amp NEB Q6H PRN PRN Reason: SHORTNESS OF BREATH Last Admin: 03/26/18 07:28 Dose: 1 amp Baclofen (Lioresal -) 10 mg PO [facility] Last Admin: 03/25/18 22:31 Dose: 10 mg Bisacodyl (Dulcolax -) 15 mg PO DAILY [facility] Calcium Acetate (Phoslo -) 667 mg PO TIDCM [facility] Last Admin: 03/26/18 12:26 Dose: Not Given Clonidine (Catapres -) 0.4 mg PO TID [facility] Last Admin: 03/26/18 06:00 Dose: 0.4 mg Fluticasone Propionate (Flonase -) 2 spray NS DAILY [facility] Last Admin: 03/26/18 09:19 Dose: Not Given Guaifenesin/Codeine Phosphate (Robitussin Ac -) 5 ml PO Q8H PRN PRN Reason: COUGH Heparin Sodium (Porcine) (Heparin -) 5,000 unit SQ TID [facility] Last Admin: 03/26/18 06:00 Dose: 5,000 unit Hydralazine HCl (Apresoline -) 100 mg PO TID [facility] Last Admin: 03/26/18 06:00 Dose: 100 mg Sodium Chloride (Normal Saline -) 250 mls @ 3,000 mls/hr IV PRN PRN PRN Reason: Hypotension during Dialysis Stop: 03/26/18 21:24 Insulin Aspart (Novolog Vial Sliding Scale -) 1 vial SQ TIDAC [facility]; Protocol Last Admin: 03/26/18 12:27 Dose: Not Given Insulin Detemir (Levemir Vial) 20 units SQ HS [facility] Last Admin: 03/25/18 22:33 Dose: 20 units Insulin Detemir (Levemir Vial) 35 units SQ AM [facility] Last Admin: 03/26/18 07:02 Dose: 35 units Lactic Acid (Lac-Hydrin 12) 1 applic TP BID [facility] Last Admin: 03/26/18 09:16 Dose: 1 applic Loratadine (Claritin -) 10 mg PO DAILY [facility] Last Admin: 03/26/18 09:15 Dose: 10 mg Melatonin (Melatonin) 3 mg PO HS [facility] Last Admin: 03/25/18 22:32 Dose: 3 mg Metoclopramide HCl (Reglan -) 5 mg PO TIDAC [facility] Last Admin: 03/26/18 12:27 Dose: Not Given Nifedipine (Procardia Xl -) 60 mg PO DAILY [facility] Last Admin: 03/26/18 09:14 Dose: 60 mg Ondansetron HCl (Zofran Odt -) 4 mg SL Q6H PRN PRN Reason: NAUSEA AND/OR VOMITING Pantoprazole Sodium (Protonix -) 40 mg PO DAILY [facility] Last Admin: 03/26/18 09:14 Dose: 40 mg Quetiapine Fumarate (Seroquel -) 25 mg PO HS [facility] Last Admin: 03/25/18 22:31 Dose: 25 mg Ramipril (Altace -) 5 mg PO DAILY [facility] Last Admin: 03/26/18 09:15 Dose: 5 mg Ranitidine HCl (Zantac -) 150 mg PO DAILY [facility] Last Admin: 03/26/18 09:14 Dose: 150 mg Senna (Senna -) 2 tab PO HS [facility] Last Admin: 03/25/18 22:31 Dose: 2 tab Sodium Chloride ([place] Nasal [place] -) 2 spray NS Q8H PRN PRN Reason: NASAL CONGESTION Last Admin: 03/26/18 09:16 Dose: 2 spray Vitamin E (Vitamin E -) 400 unit PO DAILY [facility] Last Admin: 03/26/18 09:16 Dose: 400 unit - Objective Vital Signs: Vital Signs Temperature 97.8 F 03/26/18 10:05 Pulse Rate 73 03/26/18 13:10 Respiratory Rate 18 03/26/18 13:10 Blood Pressure 134/67 03/26/18 13:10 O2 Sat by Pulse Oximetry (%) 98 03/26/18 09:00 Constitutional: Yes: Calm Eyes: Yes: Conjunctiva Clear HENT: Yes: Atraumatic Cardiovascular: Yes: S1, S2 Respiratory: Yes: CTA Bilaterally Gastrointestinal: Yes: Soft Genitourinary: Yes: WNL Musculoskeletal: Yes: WNL Edema: No Neurological: Yes: Oriented Psychiatric: Yes: Oriented Labs: CBC, BMP 03/26/18 10:15 03/26/18 10:15 INR, PTT INR 0.90 (0.83-1.09) 03/21/18 13:21 Problem List - Problems (1) Abdominal pain Code(s): R10.9 - UNSPECIFIED ABDOMINAL PAIN (2) End stage kidney disease Code(s): N18.6 - END STAGE RENAL DISEASE (3) GERD (gastroesophageal reflux disease) Code(s): K21.9 - GASTRO-ESOPHAGEAL REFLUX DISEASE WITHOUT ESOPHAGITIS (4) Gastroparesis Code(s): K31.84 - GASTROPARESIS Assessment/Plan Current Medications Generic Name Dose Route Start Last Admin Trade Name Freq PRN Reason Stop Dose Admin Acetaminophen 650 mg 03/23/18 11:18 03/26/18 06:43 Tylenol - PO 650 mg Q6H PRN Administration PAIN LEVEL 1-5 Al Hydroxide/Mg Hydroxide 30 ml 03/21/18 18:50 03/21/18 20:44 Mylanta Oral Suspension - PO 30 ml Q6H PRN Administration DYSPEPSIA Albuterol/Ipratropium 1 amp 03/23/18 15:54 03/26/18 07:28 Duoneb - NEB 1 amp Q6H PRN Administration SHORTNESS OF BREATH Baclofen 10 mg 03/21/18 22:00 03/25/18 22:31 Lioresal - PO 10 mg HS [facility] Administration Bisacodyl 15 mg 03/26/18 12:51 Dulcolax - PO DAILY [facility] Calcium Acetate 667 mg 03/21/18 17:45 03/26/18 12:26 Phoslo - PO Not Given TIDCM [facility] Clonidine 0.4 mg 03/21/18 22:00 03/26/18 06:00 Catapres - PO 0.4 mg TID [facility] Administration Fluticasone Propionate 2 spray 03/25/18 12:30 03/26/18 09:19 Flonase - NS Not Given DAILY [facility] Guaifenesin/Codeine Phosphate 5 ml 03/25/18 12:23 Robitussin Ac - PO Q8H PRN COUGH Heparin Sodium (Porcine) 5,000 unit 03/21/18 22:00 03/26/18 06:00 Heparin - SQ 5,000 unit TID [facility] Administration Hydralazine HCl 100 mg 03/21/18 22:00 03/26/18 06:00 Apresoline - PO 100 mg TID [facility] Administration Sodium Chloride 250 mls @ 3,000 mls/hr 03/25/18 21:24 Normal Saline - IV 03/26/18 21:24 PRN PRN Hypotension during Dialysis Insulin Aspart 1 vial 03/22/18 07:00 03/26/18 12:27 Novolog Vial Sliding Scale - SQ Not Given TIDAC [facility] Protocol Insulin Detemir 20 units 03/21/18 22:00 03/25/18 22:33 Levemir Vial SQ 20 units HS [facility] Administration Insulin Detemir 35 units 03/22/18 07:00 03/26/18 07:02 Levemir Vial SQ 35 units AM [facility] Administration Lactic Acid 1 applic 03/21/18 22:00 03/26/18 09:16 Lac-Hydrin 12 TP 1 applic BID [facility] Administration Loratadine 10 mg 03/26/18 10:00 03/26/18 09:15 Claritin - PO 10 mg DAILY [facility] Administration Melatonin 3 mg 03/21/18 22:00 03/25/18 22:32 Melatonin PO 3 mg HS [facility] Administration Metoclopramide HCl 5 mg 03/21/18 19:15 03/26/18 12:27 Reglan - PO Not Given TIDAC [facility] Nifedipine 60 mg 03/22/18 10:00 03/26/18 09:14 Procardia Xl - PO 60 mg DAILY [facility] Administration Ondansetron HCl 4 mg 03/23/18 15:56 Zofran Odt - SL Q6H PRN NAUSEA AND/OR VOMITING Pantoprazole Sodium 40 mg 03/22/18 10:00 03/26/18 09:14 Protonix - PO 40 mg DAILY [facility] Administration Quetiapine Fumarate 25 mg 03/21/18 22:00 03/25/18 22:31 Seroquel - PO 25 mg HS [facility] Administration Ramipril 5 mg 03/22/18 10:00 03/26/18 09:15 Altace - PO 5 mg DAILY [facility] Administration Ranitidine HCl 150 mg 03/22/18 10:00 03/26/18 09:14 Zantac - PO 150 mg DAILY [facility] Administration Senna 2 tab 03/21/18 22:00 03/25/18 22:31 Senna - PO 2 tab HS [facility] Administration Sodium Chloride 2 spray 03/25/18 12:23 03/26/18 09:16 [place] Nasal [place] - NS 2 spray Q8H PRN Administration NASAL CONGESTION Vitamin E 400 unit 03/22/18 10:00 03/26/18 09:16 Vitamin E - PO 400 unit DAILY [facility] Administration Impression 1. ESRD 2. DM 3. HTN 4. gastroparesis 5. nausea 6. anemia 7. peripheral neuropathy Plan - HD today - pt is back on her MWF schedule - she has HD set up as outpt - HD time 330 400 abf 2000 heparin - monitor bp - will follow Dr Arredondo
[2018-03-26 15:20] VITALS: BP 133/60; PULSE 80; TEMP 98.2
--- NOTE | 2018-06-08 20:33 | EKG ---
Test Reason : Blood Pressure : / mmHG Vent. Rate : 083 BPM Atrial Rate : 083 BPM P-R Int : 138 ms QRS Dur : 084 ms QT Int : 440 ms P-R-T Axes : 034 006 061 degrees QTc Int : 517 ms NORMAL SINUS RHYTHM POSSIBLE ANTERIOR INFARCT (CITED ON OR BEFORE 14-DEC-2016) PROLONGED QT ABNORMAL ECG WHEN COMPARED WITH ECG OF 14-DEC-2016 08:20, T WAVE INVERSION NOW EVIDENT IN LATERAL LEADS QT HAS LENGTHENED Confirmed by PEE BARNETT, DENISSE ([id number] on 06/08/2018 8:33:41 PM Referred By: Confirmed By:DENISSE GLASGOW MD
== END 2018-03-26 15:59 | disposition home or self-care (01) | DRG 73 ==
LOC: JER 12:07 → JERBED 16:34 → J8W 03-22 11:51 → OBSVTOIN 03-23 13:33
PROVIDERS: ADMIT Internal Medicine; ATTEND Family Medicine
PROC: 5A1D70Z Performance of Urinary Filtration, Intermittent, Less than 6 Hours Per Day (ICD-10-PCS; principal; 2018-03-22)
DX: E11.43 Type 2 diabetes mellitus with diabetic autonomic (poly)neuropathy (principal); N18.6 End stage renal disease; I12.0 Hypertensive chronic kidney disease with stage 5 chronic kidney disease or end stage renal disease; E11.22 Type 2 diabetes mellitus with diabetic chronic kidney disease; Z99.2 Dependence on renal dialysis; F41.9 Anxiety disorder, unspecified; F32.9 Major depressive disorder, single episode, unspecified; Z79.4 Long term (current) use of insulin; K31.84 Gastroparesis; M62.838 Other muscle spasm; K21.9 Gastro-esophageal reflux disease without esophagitis; E11.21 Type 2 diabetes mellitus with diabetic nephropathy; D63.1 Anemia in chronic kidney disease; E11.42 Type 2 diabetes mellitus with diabetic polyneuropathy; R07.89 Other chest pain
CPT/HCPCS: 36415; 71045-TC-FY; 80048; 80053; 82550; 82962; 83036; 83690; 83735; 84100; 84484; 85025; 85027; 85610; 86704; 86706; 86708; 86803; 87340; 93005; 93010; 94150; 94640; 99285-25; G0378; J0131; J0475; J0735; J1644

== ENCOUNTER 2018-07-15 23:32 | Inpatient (IN) | payer OTHER ==
[2018-07-15 23:44] VITALS: BMI 33.0
[2018-07-16] MEDS ORDERED: methylPREDNISolone NA SUCC 125 MG/2 ML VIAL IVPUSH ONE (00:15)
[2018-07-16] MEDS ORDERED: ALBUTEROL SO4 2.5/IPRATROPIUM 0.5 INH SOL 3 ML VIAL.NEB. NEB ONE ×2 (00:15→00:48)
[2018-07-16] MEDS ORDERED: NITROGLYCERIN SUBLINGUAL 1/200 0.3 MG BTL SL ONE (00:16)
[2018-07-16] MEDS ORDERED: ASPIRIN 81 MG CHEWABLE TABLETS PO ONE (00:16)
--- NOTE | 2018-07-16 00:21 | PDOC ---
History of Present Illness - General Chief Complaint: Chest Pain Stated Complaint: CHEST PAIN Time Seen by Provider: 07/16/18 00:03 - History of Present Illness Initial Comments: 07/16/18 00:18 52 yo F with h/o IDDM, HTN, HLD, anxiety, depression, ESRD ( MWF), who p/w SOB, and chest pain. Patient endorses acute onset of left sided chest pressure at rest , beginning this evening, while watching television at approximately 1000 PM. States that she was sitting on side of bed, and felt sudden onset left sided chest pressure, non radiating, non-pleuritic, now slightly improved. Also endorses SOB at rest beginning this evening. No home O2 requirements. SOB not improved with home duoneb. Denies h/o similar chest pain intensity. Recovered from recent viral URI type illness. Last dialysis this past Monday07-13-18. Patient denies [place], vision change, palpitations, cough, wheezing, orthopena, PND , leg swelling/pain, N/V, F,C, urinary complaints, hematuria, BPR, abdominal pain, diarrhea, constipation, lightheadedness, weakness, sensory changes. PMHx: as noted above. Denies h/o ACS/NH, stent placement, CABG, PE/DVT ROS: as noted SHx: Denies IVDA. 1/2 ppd 20 + years tobacco use. Allergies: NKDA Nephrology: Dr. Barrios Past History - Past Medical History Allergies/Adverse Reactions: Allergies Allergy/AdvReac Type Severity Reaction Status Date / Time No Known Drug Allergies Allergy Verified 07/15/18 23:44 Home Medications: Ambulatory Orders Ammonium Lactate Cream [Lac-Hydrin 12% Cream -] 1 applic TP BID 12/14/16 Baclofen 10 mg PO HS 12/14/16 Bisacodyl [Bisacodyl -] 5 mg PO DAILY 12/14/16 Calcium Acetate 667 mg PO AC 12/14/16 Dexlansoprazole [Dexilant] 60 mg PO DAILY 12/14/16 Hydralazine HCl 100 mg PO TID 12/14/16 Melatonin 3 mg PO HS 12/14/16 Metoclopramide HCl [Reglan -] 10 mg PO TID 12/14/16 Nifedipine [Nifedipine ER] 60 mg PO DAILY 12/14/16 Quetiapine Fumarate [Seroquel -] 25 mg PO HS 12/14/16 Ramipril [Altace] 5 mg PO DAILY 12/14/16 Ranitidine [Zantac -] 150 mg PO DAILY 12/14/16 Sennosides [Senna -] 2 tab PO HS 12/14/16 Vitamin E 400 unit PO DAILY 12/14/16 cloNIDine HCL [Catapres -] 0.4 mg PO TID 12/14/16 Insulin (Levemir) [Levemir Vial] 20 units SQ HS #1 ml 12/16/16 Insulin (Levemir) [Levemir Vial] 35 units SQ AM #1 ml 12/16/16 Anemia: Yes Asthma: Yes COPD: Yes (asthma) Diabetes: Yes Dialysis: Yes (mon) GI Disorders: Yes (gerd gastroparesis) Disorders: Yes (HEMODIALYSIS) HTN: Yes Hypercholesterolemia: Yes - Surgical History Orthopedic Surgery: Yes (r hand sx for broken r thumb) - Immunization History Immunization Up to Date: Yes - Suicide/Smoking/Psychosocial Hx Smoking Status: No Smoking History: Unknown if ever smoked Have you smoked in the past 12 months: No Number of Cigarettes Smoked Daily: 6 Cigars Per Day: 0 Information on smoking cessation initiated: No 'Breaking Loose' booklet given: 03/08/17 Hx Alcohol Use: No Drug/Substance Use Hx: No Substance Use Type: None Hx Substance Use Treatment: No Review of Systems - Review of Systems Comments:: 07/16/18 00:31 GENERAL/CONSTITUTIONAL: No fever or chills. No weakness. HEAD, EYES, EARS, NOSE AND THROAT: No change in vision. No ear pain or discharge. No sore throat. CARDIOVASCULAR:+ chest pain and shortness of breath RESPIRATORY: + wheezing. No cough, or hemoptysis. GASTROINTESTINAL: No nausea, vomiting, diarrhea or constipation. GENITOURINARY: No dysuria, frequency, or change in urination. MUSCULOSKELETAL: No joint or muscle swelling or pain. No neck or back pain. SKIN: No rash NEUROLOGIC: No headache, vertigo, loss of consciousness, or change in strength/ sensation. ENDOCRINE: No increased thirst. No abnormal weight change HEMATOLOGIC/LYMPHATIC: No anemia, easy bleeding, or history of blood clots. ALLERGIC/IMMUNOLOGIC: No hives or skin allergy. *Physical Exam - Vital Signs Last Vital Signs Temp Pulse Resp BP Pulse Ox 98.2 F 105 H 16 183/91 H 90 L 07/15/18 23:39 07/15/18 23:39 07/15/18 23:39 07/15/18 23:39 07/15/18 23:39 - Physical Exam Comments: 07/16/18 00:31 GENERAL: Awake, alert, and fully oriented, in no acute distress HEAD: No signs of trauma, normocephalic, atraumatic EYES: PERRLA, EOMI, sclera anicteric, conjunctiva clear ENT: Auricles normal inspection, hearing grossly normal, nares patent, oropharynx clear without exudates. Moist mucosa NECK: Normal ROM, supple, no lymphadenopathy, JVD, or masses LUNGS: Slightly diminished BL lung bases. No distress, speaks full sentences. HEART: Irregular rate and nml rhythm, normal S1 and S2, no murmurs, rubs or gallops, peripheral pulses normal and equal bilaterally. ABDOMEN: Soft, nontender, normoactive bowel sounds. No guarding, no rebound. No masses EXTREMITIES : Normal inspection, Normal range of motion, no edema. No clubbing or cyanosis. NEUROLOGICAL: Cranial nerves II through XII grossly intact. Normal speech, normal gait, no focal sensorimotor deficits SKIN: Warm, Dry, normal turgor, no rashes or lesions noted Moderate Sedation - Procedure Monitoring Vital Signs: Procedure Monitoring Vital Signs Temperature 98.2 F 07/15/18 23:39 Pulse Rate 105 H 07/15/18 23:39 Respiratory Rate 16 07/15/18 23:39 Blood Pressure 183/91 H 07/15/18 23:39 O2 Sat by Pulse Oximetry (%) 90 L 07/15/18 23:39 ED Treatment Course - LABORATORY CBC & Chemistry Diagram: 07/16/18 00:45 07/16/18 00:45 Medical Decision Making - Medical Decision Making 07/16/18 00:28 52 yo F with h/o IDDM, HTN, HLD, anxiety, depression, ESRD ( MWF), who p/w acute onset of left sided chest pressure at rest ,and SOB beginning this evening 1000 PM. HR 105, O2 90% O2 mask 10 L, RR 16, BP 183/91, AF A&Ox3. ACS/ NH r/o. Will consider PNA, volume/fluid overload 2/2 ESRD, CHF, asthma/COPD, pleural effusion. Low risk PE based on Weils criteria. Will assess for cardiac dysarrythmias, hypoglycemia, electrolyte abnml, metabolic and toxic derangements , acid-base disturbances, infection. ED Course: Duoneb 3 amp, methylpred, nitroglycerin SL 07/16/18 01:01 EKG: Sinus tachcyardia HR 103, with absent MERCY. + peaked t waves. Normal axis and duration intervals. Nml R wave progression. 07/16/18 01:40 Laboratory Tests 07/16/18 07/16/18 07/16/18 00:45 00:45 00:45 WBC 8.6 Hgb 10.1 L Hct 29.1 L Plt Count 320 D Sodium 133 L Potassium 6.1 H* BUN 62 H Creatinine 8.2 H* Random Glucose 278 H AST 45 H ALT 105 H Alkaline Phosphatase 458 H Troponin I 0.09 H 07/16/18 01:41 Sodium bicarb, calcium gluconate, IV insulin 6 U, D25 07/16/18 02:13 Nitro 0.4 Ml SL for cont'd chest pain Plan to admit for elevated heart score, chest pain at rest, acute on chronic kidney injury, hypoxia, hyperkalemia, volume overload 07/16/18 02:[address] Patterson answering service. Dr. Arredondo bulk station operator Patient endorsed and accepted by Dr. lucero 07/16/18 02:[address] Arredondo admit to tele with dialysis bed, give 80 mg IV lasix, kaexylate. *DC/Admit/Observation/Transfer Diagnosis at time of Disposition: FRANNIE (acute kidney injury), Hyperkalemia, Chest pain at rest - Discharge Dispostion Condition at time of disposition: Stable Decision to Admit order: Yes - Referrals - Patient Instructions - Post Discharge Activity
[2018-07-16] MEDS ORDERED: ASPIRIN 81 MG CHEWABLE TABLETS ONE (00:48)
[2018-07-16] MEDS ORDERED: methylPREDNISolone NA SUCC 125 MG/2 ML VIAL ONE (00:49)
[2018-07-16] MEDS ORDERED: NITROGLYCERIN SUBLINGUAL 1/150 0.4 MG TAB SL ONE ×2 (00:50→02:13)
[2018-07-16] MEDS ORDERED: NITROGLYCERIN SUBLINGUAL 1/150 0.4 MG TAB ONE (00:52)
[2018-07-16 01:23] LABS: ALBUMIN 3.3 g/dl (3.4-5.0); ALK PHOS 458 U/L (45-117); ANION GAP 7 MMOL/L (8-16); BILIRUBIN,TOTAL 0.4 mg/dL (0.2-1); BLOOD UREA NITROGEN 62 mg/dL (7-18); CALCIUM 8.9 mg/dL (8.5-10.1); CHLORIDE 100 mmol/L (98-107); CO2 26 mmol/L (21-32); GLUCOSE,RANDOM 278 mg/dL (74-106); SGOT/AST 45 U/L (15-37); SGPT/ALT 105 U/L (13-61); SODIUM 133 mmol/L (136-145); TOT PROT 7.5 g/dl (6.4-8.2)
[2018-07-16 01:26] LABS: CREATININE 8.2 mg/dL (0.55-1.3); POTASSIUM 6.1 mmol/L (3.5-5.1)
[2018-07-16 01:27] LABS: BASO % 0.9 % (0-2.0); EOS % 2.2 % (0-4.5); HEMATOCRIT 29.1 % (32.4-45.2); HEMOGLOBIN 10.1 GM/dL (10.7-15.3); LYMPH % 14.1 % (8-40); MCH 33.8 pg (25.7-33.7); MCHC 34.6 g/dl (32.0-36.0); MEAN CELL VOLUME 97.5 fl (80-96); MEAN PLT VOLUME 8.9 fl (7.5-11.1); MONO % 7.1 % (3.8-10.2); NEUT % 75.7 % (42.8-82.8); PLATELET COUNT 320 K/MM3 (134-434); RBC 2.98 M/mm3 (3.60-5.2); RDW 14.8 % (11.6-15.6); WHITE BLOOD COUNT 8.6 K/mm3 (4.0-10.0)
[2018-07-16 01:29] LABS: MAGNESIUM 2.9 mg/dL (1.8-2.4)
[2018-07-16] MEDS ORDERED: INSULIN REGULAR HUMAN 100 UNITS/ML *VIAL IVPUSH ONE (01:39)
[2018-07-16] MEDS ORDERED: SODIUM BICARBONATE 4.2% 5 MEQ/10 ML DISP.SYRIN IVPUSH ONE ×3 (01:39→01:53)
[2018-07-16] MEDS ORDERED: CALCIUM GLUCONATE 10% - 1,000 MG/10 ML VIAL IVPUSH ONE ×2 (01:39→09:56)
[2018-07-16 01:41] LABS: INR 0.96 (0.83-1.09); PROTHROMBIN TIME (PATIENT) 11.3 SEC (9.7-13.0)
[2018-07-16] MEDS ORDERED: CALCIUM GLUCONATE 10% - 1,000 MG/10 ML VIAL ONE (01:43)
[2018-07-16] MEDS ORDERED: INSULIN REGULAR HUMAN 100 UNITS/ML *VIAL ONE (01:44)
[2018-07-16] MEDS ORDERED: SODIUM BICARBONATE 8.4% 50 MEQ/50 ML DISP.SYRIN IVPUSH ONE ×2 (01:49→09:56)
[2018-07-16] MEDS ORDERED: DEXTROSE 50%-WATER - 25 GM/50 ML VIAL IVPUSH ONE (01:53)
[2018-07-16] MEDS ORDERED: DEXTROSE 50%-WATER - 25 GM/50 ML VIAL ONE (02:17)
[2018-07-16] MEDS ORDERED: ACETAMINOPHEN 325 MG TABLET (FP) PO ONE (02:26)
[2018-07-16] MEDS ORDERED: ACETAMINOPHEN 325 MG TABLET (FP) ONE (02:29)
[2018-07-16] MEDS ORDERED: SODIUM POLYSTYRENE SULFONATE 15 GM/60 ML BOTTLE PO ONE (02:32)
[2018-07-16] MEDS ORDERED: FUROSEMIDE 40 MG/4 ML INJECTABLE VIAL IVPUSH ONE (02:35)
[2018-07-16] MEDS ORDERED: FUROSEMIDE 40 MG/4 ML INJECTABLE VIAL ONE (02:39)
[2018-07-16] MEDS ORDERED: SODIUM POLYSTYRENE SULFONATE 15 GM/60 ML BOTTLE ONE (02:49)
--- NOTE | 2018-07-16 02:56 | PDOC ---
Attending Attestation - Resident Resident Name: Margarito Minaya - ED Attending Attestation I have performed the following: I have examined & evaluated the patient, The case was reviewed & discussed with the resident, I agree w/resident's findings & plan, Exceptions are as noted - HPI HPI: 07/16/18 02:55 agree with resident HPI - Physicial Exam PE: 07/16/18 02:55 agree with resident exam - Medical Decision Making 07/16/18 02:15 Potassium elevated, pt s/p treatment Dr. Arredondo aware, will dialyze Pt admitted to Dr. Hernandez by Dr. Minaya Case discussed in detail with admitting physician including history, physical exam and ancillary studies. Admitting physician has assumed care for the patient, will follow all pending diagnostics and will complete the evaluation and treatment. Heart Score/ECG Review #1 07/16/18 04:02 Twelve-lead EKG was performed and reviewed by me. Sinus tachycardia, rate 103. Normal axis. Peaked T waves in V2 to V5.
--- NOTE | 2018-07-16 05:27 | HP ---
<Deric Rivera - Last Filed: 07/16/18 07:30> CHIEF COMPLAINT: Shortness of breath PCP: HISTORY OF PRESENT ILLNESS: Pt. is a 52 y.o. F presenting for sudden onset shortness of breath that started last night ~10pm. Pt. states that it "feels like breathing through a straw." Pt. endorses chest tightness that started at the same time. Pt. endorses headache that started at this time. Pt. endorses 2 months of "periods" despite being in menopause since 4 years ago. Pt. recently had endometrial biopsy and is awaiting results. Pt. endorses vaginal discharge without fever or chills but does note that she was on antibiotics recently. Pt. endorses intermittent pains form her peripheral neuropathy. Pt. denies any changes in bowel or urinary habits. ER course was notable for: (1)Lasix 80mg, Tylenol 650mg, Nitrostat x 3, ASA 162mg, Calcium Gluconate 1, 000mg, Na Bicarb 8.4% 50meq, D50W 25gm, Kayexalate 45 gm, Solumedrol 125mg, Albuterol x 3 amps (2)Discussed w/ Dr. Arredondo (3)EKG, Trop, labs Recent Travel: No PAST MEDICAL HISTORY: NIDDM(15+ years), GERD, Gastroparesis, HTN, Neuropathy, Anxiety/Depression PAST SURGICAL HISTORY: x 3, 2 ectopic pregnancies, Myomectomy Social History: Smokin/2 PPD since 15 Alcohol: denies Drugs: denies Family History: Grand father DM, Brother-bone cancer, Grand father-colon cancer ( @ 90) Allergies No Known Drug Allergies Allergy (Verified 07/15/18 23:44) HOME MEDICATIONS: Home Medications Medication Instructions Recorded Ammonium Lactate Cream [Lac-Hydrin 1 applic TP BID 12/14/16 12% Cream -] Baclofen 10 mg PO HS 12/14/16 Bisacodyl [Bisacodyl -] 5 mg PO DAILY 12/14/16 Calcium Acetate 667 mg PO AC 12/14/16 Dexlansoprazole [Dexilant] 60 mg PO DAILY 12/14/16 Hydralazine HCl 100 mg PO TID 12/14/16 Melatonin 3 mg PO HS 12/14/16 Metoclopramide HCl [Reglan -] 10 mg PO TID 12/14/16 Nifedipine [Nifedipine ER] 60 mg PO DAILY 12/14/16 Quetiapine Fumarate [Seroquel -] 25 mg PO HS 12/14/16 Ramipril [Altace] 5 mg PO DAILY 12/14/16 Ranitidine [Zantac -] 150 mg PO DAILY 12/14/16 Sennosides [Senna -] 2 tab PO HS 12/14/16 Vitamin E 400 unit PO DAILY 12/14/16 cloNIDine HCL [Catapres -] 0.4 mg PO TID 12/14/16 Insulin (Levemir) [Levemir Vial] 20 units SQ HS #1 ml 12/16/16 Insulin (Levemir) [Levemir Vial] 35 units SQ AM #1 ml 12/16/16 REVIEW OF SYSTEMS CONSTITUTIONAL: Absent: fever, chills, diaphoresis, generalized weakness, malaise, loss of appetite, weight change HEENT: Absent: rhinorrhea, nasal congestion, throat pain, throat swelling, difficulty swallowing, mouth swelling, ear pain, eye pain, visual changes CARDIOVASCULAR: Absent: chest pain, syncope, palpitations, irregular heart rate, lightheadedness , peripheral edema RESPIRATORY: Absent: cough, shortness of breath, dyspnea with exertion, orthopnea, wheezing, stridor, hemoptysis GASTROINTESTINAL: Absent: abdominal pain, abdominal distension, nausea, vomiting, diarrhea, constipation, melena, hematochezia GENITOURINARY: Absent: dysuria, frequency, urgency, hesitancy, hematuria, flank pain, genital pain MUSCULOSKELETAL: Absent: myalgia, arthralgia, joint swelling, back pain, neck pain SKIN: Absent: rash, itching, pallor HEMATOLOGIC/IMMUNOLOGIC: Absent: easy bleeding, easy bruising, lymphadenopathy, frequent infections ENDOCRINE: Absent: unexplained weight gain, unexplained weight loss, heat intolerance, cold intolerance NEUROLOGIC: Absent: headache, focal weakness or paresthesias, dizziness, unsteady gait, seizure, mental status changes, bladder or bowel incontinence PSYCHIATRIC: Absent: anxiety, depression, suicidal or homicidal ideation, hallucinations. PHYSICAL EXAMINATION Vital Signs - 24 hr 07/15/18 07/16/18 07/16/18 23:39 01:10 02:13 Temperature 98.2 F Pulse Rate 105 H Pulse Rate [ 98 H 118 H Apical] Respiratory 16 22 H 24 H Rate Blood Pressure 183/91 H Blood Pressure 155/66 156/87 [Right Arm] O2 Sat by Pulse 90 L 100 98 Oximetry (%) 07/16/18 03:06 Temperature Pulse Rate Pulse Rate [ 104 H Apical] Respiratory 26 H Rate Blood Pressure Blood Pressure 173/83 H [Right Arm] O2 Sat by Pulse 99 Oximetry (%) GENERAL: Awake, alert, and fully oriented, in no acute distress. HEAD: Normal with no signs of trauma. EYES: Pupils equal, round and reactive to light, extraocular movements intact, sclera anicteric, conjunctiva clear. EARS, NOSE, THROAT: Ears normal, nares patent, oropharynx clear without exudates. Moist mucous membranes. NECK: Normal range of motion, supple LUNGS: diffuse decreased BS and crackles, No accessory muscle use. HEART: Tachycardic regular rate and rhythm, normal S1 and S2 without murmur ABDOMEN: Soft, nontender, not distended, bowel sounds sluggish, no guarding, no rebound, no masses. MUSCULOSKELETAL: Normal range of motion at all joints. No bony deformities or tenderness. No CVA tenderness. UPPER EXTREMITIES: 2+ radial pulses, warm, well-perfused. No cyanosis. No clubbing. No peripheral edema. LUE AVF-thrills and frills present LOWER EXTREMITIES: warm, well-perfused. No calf tenderness. 2+ edema. NEUROLOGICAL: Normal speech. PSYCHIATRIC: Anxious SKIN: Warm, dry, normal turgor, no rashes or lesions noted, normal capillary refill. Laboratory Results - last 24 hr 07/16/18 07/16/18 07/16/18 00:45 00:45 00:45 WBC 8.6 RBC 2.98 L Hgb 10.1 L Hct 29.1 L MCV 97.5 H MCH 33.8 H MCHC 34.6 RDW 14.8 Plt Count 320 D MPV 8.9 Absolute Neuts (auto) 6.5 Neutrophils % 75.7 Lymphocytes % 14.1 Monocytes % 7.1 Eosinophils % 2.2 D Basophils % 0.9 Nucleated RBC % 0 PT with INR INR PTT (Actin FS) 38.4 H Sodium 133 L Potassium 6.1 H* Chloride 100 Carbon Dioxide 26 Anion Gap 7 L BUN 62 H Creatinine 8.2 H* Creat Clearance w eGFR 5.14 Random Glucose 278 H Calcium 8.9 Magnesium Total Bilirubin 0.4 AST 45 H ALT 105 H Alkaline Phosphatase 458 H Troponin I Total Protein 7.5 Albumin 3.3 L 07/16/18 07/16/18 00:45 00:45 WBC RBC Hgb Hct MCV MCH MCHC RDW Plt Count MPV Absolute Neuts (auto) Neutrophils % Lymphocytes % Monocytes % Eosinophils % Basophils % Nucleated RBC % PT with INR 11.30 INR 0.96 PTT (Actin FS) Sodium Potassium Chloride Carbon Dioxide Anion Gap BUN Creatinine Creat Clearance w eGFR Random Glucose Calcium Magnesium 2.9 H Total Bilirubin AST ALT Alkaline Phosphatase Troponin I 0.09 H Total Protein Albumin ASSESSMENT/PLAN: Pt. is a 52 y.o. F w/ NIDDM(15+ years), GERD, Gastroparesis, HTN, Neuropathy, Anxiety/Depression presenting for sudden onset shortness of breath that started last night ~10pm. #Volume overload 2/2 ESRD Consult w/ Dr. Arredondo( Nephrology) HD MWF given Solumedrol #Hyperkalemia 2/2 ESRD HD given Kayexalate in ED given 3 amps Albuterol #Chest Tightness f/u Echo given Nitrostat x 3 given 162mg given Tylenol 650 Trop 0.09, trend #ESRD on HD given Kayexalate in ED given Calcium Gluconate in ED given Na HCO3 in ED given D50W in ED Pt. for HD today #Suspected Yeast infection Given Fluconazole 150mg ( Can give 100% of Abx. dose on HD days according to Uptodate) f/u UA #Hypertensive Emergency Pt. endorses headache f/u Head CT Elevated LFTs, previous admission was normal f/u Abd. US f/u GGT given elevated ALP GI consult appreciated ( Dr. Sandoval) c/w home medications Pt. endorses Nifedipine 60mg, Hydralazine 100mg TID, and Coreg 3.125( Pt. states 4mg?) BID Reconcile medications with Pharmacy, attempted but Pharmacy closed #NIDDM now IDDM- uncontrolled ISS TIDAC BGM TIDAC Last A1c: 5.4%( 03/23/18) f/u Rpt. A1C #FEN encourage PO intake monitor electrolytes and replete as needed, Pt. currently has hyperkalemia, for HD on Monday Na/cholesterol restricted diet #DVT Ppx. Heparin SQ Visit type - Emergency Visit Emergency Visit: Yes ED Registration Date: 07/16/18 Care time: The patient presented to the Emergency Department on the above date and was hospitalized for further evaluation of their emergent condition. - New Patient This patient is new to me today: Yes Date on this admission: 07/16/18 - Critical Care Critical Care patient: No <Jovani Hernandez - Last Filed: 08/13/18 21:55> Seen and examined; agree with above aside from what is supplemented in my own documentation. Repeated all peña parts of exam, supervised all vital parts of patient care.
[2018-07-16] MEDS ORDERED: FLUCONAZOLE 100 MG TABLET (UD) PO ONE ×2 (05:30→05:35)
--- NOTE | 2018-07-16 06:05 | PN ---
Teaching Attending Note Name of Resident: Deric Rivera ATTENDING PHYSICIAN STATEMENT I saw and evaluated the patient. I reviewed the resident's note and discussed the case with the resident. I agree with the resident's findings and plan as documented. SUBJECTIVE: Seen and examined; please refer to resident note for further historical information. SOB sudden onset last night at ~5PM with associated headache, nonspecific whole body pain/headache. She denies zaynab chest pain, persay, but appears quite uncomfortable and does endorse some amount of tightness. She has had similar sx with fluid overload; she is on MWF HD with Dr. Arredondo via LUE AVF. . In the ER she was noted to have elevated K . Mentioned 2 weeks ago blurry vision, saw optho (hx retinal detachment) and it has been improving since. She complains of vaginal discharge consistent with a yeast infection after completing a course of OP abx for a UTI (no sx now, just stereotyped yeast infection). She is hypertensive to 170s-180s. She tells us her clonidine was recently discontinued. ER was concerned peaked T waves. Does have risks for ACS. CXR shows fluid overload. 10 sys ROS done and negative aside from HPI PMH, PSH, Social hx, Family hx reviewed Medication list reviewed; pending reconciliation OBJECTIVE: VS, labs, imaging reviewed NAD, AAO, resting in bed NC AT EOMI PERRLA RRR to mild tachycardia s1/2 no mgr NT ND +BS CN2-12 wnl, no fnd Normal mood, appropriate affect CXR shows fluid overload EKG reviewed ASSESSMENT AND PLAN: 1) Shortness of Breath/Fluid Overload -Likely multifactorial; suspect fluid overload that was potentially driven by hypertensive emergency but we need to r/o any 2) Hyperkalemia -ED concerns noted; EKG personally reviewed. 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 Dialyzing, giving kayexalate. Dr. Arredondo aware. 3) Chest Tightness with Troponemia -Monitor on tele, trend troponins, trend tele. Consider cardiology consultation in AM. Also, given mild tachycardia, we will consider PE on the differential as well. Consider VQ scan if sx not improved after HD 4) ESRD on HD -Nephrology is aware; HD this morning. Fluid removal, K bath, etc. per nephro service 6) Hypertensive Emergency -Elevated troponin would qualify; checking CT head and monitoring. No red flag symptoms, etc. She states she had med changes and no longer takes clonidine but takes "4" of coreg (old clonidine dose .4); will continue home meds as reconciled for now but as soon as they open we will confirm with her pharmacy and continue. -Expected to improve with HD, as well. Nephrology following. Consider CV in AM. 7) Transaminitis -Newly discovered; could be due to overload but will also consider primary GI causes. Trend CMP, check GGT, get RUQ us. Check lipase. Consider GI consultation in the AM. Differential remains broad at this point. Will also consider meds, etc.
[2018-07-16] MEDS ORDERED: FLUCONAZOLE 100 MG TABLET (UD) ONE (06:06)
[2018-07-16] MEDS ORDERED: METOCLOPRAMIDE HCL 10 MG TABLET (FP) PO ONE (06:07)
[2018-07-16] MEDS ORDERED: hydrALAZINE HCL 25 MG TABLET (FP) ONE (06:07)
[2018-07-16] MEDS ORDERED: morphine CARPU-JECT 2 MG/1 ML DISP.SYRIN IVPUSH ONE (06:34)
[2018-07-16] MEDS ORDERED: MORPHINE SULFATE 2 MG/ML VIAL ONE (06:36)
[2018-07-16] MEDS: METOCLOPRAMIDE HCL 10 MG TABLET (FP) PO SCH ×3 (06:40→19:20)
[2018-07-16] MEDS: hydrALAZINE HCL 50 MG TABLET (FP) PO SCH ×3 (06:40→22:26)
[2018-07-16] MEDS ORDERED: SODIUM CHLORIDE 250 ML IV PRN (07:33)
[2018-07-16 07:41] LABS: GAMMA GLUTAMYL TRANSPEPTIDASE 228 U/L (5-85); LIPASE 177 U/L (73-393)
[2018-07-16 08:49] LABS: ANION GAP 13 MMOL/L (8-16); BLOOD UREA NITROGEN 64 mg/dL (7-18); CALCIUM 8.7 mg/dL (8.5-10.1); CHLORIDE 98 mmol/L (98-107); CO2 20 mmol/L (21-32); POTASSIUM 5.8 mmol/L (3.5-5.1); SODIUM 131 mmol/L (136-145)
[2018-07-16 08:58] LABS: GLUCOSE,RANDOM 537 mg/dL (74-106)
[2018-07-16] MEDS ORDERED: ALBUTEROL SO4 0.5 % INH SOLN 2.5 MG/0.5 ML VIAL.NEB. NEB ONE ×2 (09:56→09:57)
[2018-07-16] MEDS ORDERED: HEPARIN NA (PORCINE) 5,000 UNITS/ML 1ML VIAL SQ SCH (10:00)
--- NOTE | 2018-07-16 10:08 | EKG ---
Test Reason : Blood Pressure : / mmHG Vent. Rate : 106 BPM Atrial Rate : 106 BPM P-R Int : 148 ms QRS Dur : 082 ms QT Int : 358 ms P-R-T Axes : 058 000 051 degrees QTc Int : 475 ms SINUS TACHYCARDIA POSSIBLE LEFT ATRIAL ENLARGEMENT ANTERIOR INFARCT , AGE UNDETERMINED ABNORMAL ECG WHEN COMPARED WITH ECG OF 16-JUL-2018 00:21, NO SIGNIFICANT CHANGE WAS FOUND Confirmed by BENNY BRASWELL MD ([id number]) on 07/16/2018 10:08:19 AM Referred By: Confirmed By:BENNY BRASWELL MD
[2018-07-16] MEDS ORDERED: ALBUTEROL SO4 0.083% IH SOL 2.5 MG/3 ML VIAL.NEB. NEB ONE (10:11)
--- NOTE | 2018-07-16 10:11 | EKG ---
Test Reason : Blood Pressure : / mmHG Vent. Rate : 103 BPM Atrial Rate : 103 BPM P-R Int : 146 ms QRS Dur : 082 ms QT Int : 362 ms P-R-T Axes : 063 031 074 degrees QTc Int : 474 ms SINUS TACHYCARDIA POSSIBLE LEFT ATRIAL ENLARGEMENT NONSPECIFIC ST ABNORMALITY ABNORMAL ECG WHEN COMPARED WITH ECG OF 21-MAR-2018 12:15, NO SIGNIFICANT CHANGE WAS FOUND Confirmed by BENNY BRASWELL MD ([id number]) on 07/16/2018 10:10:53 AM Referred By: Confirmed By:BENNY BRASWELL MD
[2018-07-16] MEDS ORDERED: RANITIDINE HCL 150 MG TABLET (FP) ONE (10:12)
[2018-07-16] MEDS ORDERED: PANTOPRAZOLE SODIUM 40 MG VIAL ONE (10:12)
--- NOTE | 2018-07-16 10:21 | PN ---
Teaching Attending Note Name of Resident: Cris Chavez ATTENDING PHYSICIAN STATEMENT I saw and evaluated the patient. I reviewed the resident's note and discussed the case with the resident. I agree with the resident's findings and plan as documented. SUBJECTIVE: Ms Mckeon says she is very short of breath and is having chest pain. No abd pain or nausea but breathing rapidly OBJECTIVE: Last Vital Signs Temp Pulse Resp BP Pulse Ox 36.8 C 104 H 26 H 173/83 H 100 07/15/18 23:39 07/16/18 03:06 07/16/18 03:06 07/16/18 03:06 07/16/18 07:15 Gen: obese, in acute distress Pulm: tachypnea but ctab w/o w/r/r CV: tachycardic but regular w/o m/r/g Abd: +bs, s/nt/nd Ext: no c/c/e CBC, BMP 07/16/18 00:45 07/16/18 08:00 37 minutes in critical care time spent on this patient Problem List - Problems (1) Hyperkalemia Assessment/Plan: -case d/w Dr Arredondo -will need HD -will give albuterol, calcium gluconate, sodium bicarbonate currently -planning for HD soon Code(s): E87.5 - HYPERKALEMIA (2) Tachypnea Assessment/Plan: -concern for fluid overload -emergent HD -check CT scan with PE protocol as well -start on heparin gtt Code(s): R06.82 - TACHYPNEA, NOT ELSEWHERE CLASSIFIED (3) End stage renal disease on dialysis Assessment/Plan: -HD as above Code(s): N18.6 - END STAGE RENAL DISEASE; Z99.2 - DEPENDENCE ON RENAL DIALYSIS (4) Type 1 diabetes mellitus with diabetic nephropathy Assessment/Plan: -received solumedrol for SOB, now with rising glucose -not in DKA -diabetic diet -start on home insulin regimen -FSBS and SSI Code(s): E10.21 - TYPE 1 DIABETES MELLITUS WITH DIABETIC NEPHROPATHY (5) Malignant hypertension Assessment/Plan: -continue hydralazine and procardia -planning for HD Code(s): I10 - ESSENTIAL (PRIMARY) HYPERTENSION (6) Atypical chest pain Assessment/Plan: -slightly elevated troponing, but to be expected in ESRD -chest pain reproducible -will trend and monitor Code(s): R07.89 - OTHER CHEST PAIN (7) Anemia in chronic kidney disease (CKD) Assessment/Plan: -at baseline Code(s): N18.9 - CHRONIC KIDNEY DISEASE, UNSPECIFIED; D63.1 - ANEMIA IN CHRONIC KIDNEY DISEASE Qualifiers: Chronic kidney disease stage: on chronic dialysis Qualified Code(s): N18.6 - End stage renal disease; D63.1 - Anemia in chronic kidney disease; Z99.2 - Dependence on renal dialysis
[2018-07-16] MEDS ORDERED: HEPARIN NA (PORCINE) 5,000 UNITS/ML 1ML VIAL ONE (10:25)
[2018-07-16] MEDS: BISACODYL 5 MG TABLET.DR (FP) PO SCH (10:25)
[2018-07-16] MEDS: PANTOPRAZOLE 40 MG TABLET (FP) PO SCH (10:26)
[2018-07-16] MEDS: NIFEdipine E.R 60 MG TABLET (UD) PO SCH (10:26)
[2018-07-16] MEDS: RANITIDINE HCL 150 MG TABLET (FP) PO SCH (10:26)
[2018-07-16] MEDS: AMMONIUM LACTATE 12% LOTION 225 GM BOTTLE TP SCH ×2 (10:26→22:27)
[2018-07-16] MEDS ORDERED: INSULIN (NOVOLOG) ASPART 100 UNITS/ML 10ML VIAL SQ ONE (10:39)
[2018-07-16 10:45] LABS: BASO % 0.3 % (0-2.0); HEMATOCRIT 29.3 % (32.4-45.2); LYMPH % 4.8 % (8-40); MCH 33.5 pg (25.7-33.7); MCHC 34.2 g/dl (32.0-36.0); MEAN PLT VOLUME 9.2 fl (7.5-11.1); MONO % 0.8 % (3.8-10.2); NEUT % 94.1 % (42.8-82.8); PLATELET COUNT 313 K/MM3 (134-434); RBC 2.99 M/mm3 (3.60-5.2); RDW 14.6 % (11.6-15.6); WHITE BLOOD COUNT 8.4 K/mm3 (4.0-10.0)
[2018-07-16 11:22] LABS: ALBUMIN 3.5 g/dl (3.4-5.0); ALK PHOS 445 U/L (45-117); ANION GAP 12 MMOL/L (8-16); BILIRUBIN,TOTAL 0.4 mg/dL (0.2-1); BLOOD UREA NITROGEN 65 mg/dL (7-18); CALCIUM 8.7 mg/dL (8.5-10.1); CHLORIDE 96 mmol/L (98-107); CO2 23 mmol/L (21-32); MAGNESIUM 2.6 mg/dL (1.8-2.4); PHOSPHOROUS 4.6 mg/dL (2.5-4.9); SGOT/AST 35 U/L (15-37); SGPT/ALT 99 U/L (13-61); SODIUM 131 mmol/L (136-145); TOT PROT 7.9 g/dl (6.4-8.2)
[2018-07-16 11:43] LABS: GLUCOSE,RANDOM 546 mg/dL (74-106)
[2018-07-16 11:45] LABS: ANISOCYTOSIS 0; MACROCYTOSIS 1+; PLATELET ESTIMATE NORMAL
[2018-07-16] MEDS ORDERED: HEPARIN NA (PORCINE) 5,000 UNITS/ML 1ML VIAL IVPUSH PRN ×2 (12:00→12:01)
--- NOTE | 2018-07-16 12:13 | CONSULT ---
Consult Consult Specialty:: Nephrology Reason for Consultation:: ESRD - History of Present Illness Chief Complaint: shortness of breath History of Present Illness: Pt is a 52 year old female with pmhx of ESRD, HTN, DM, anxiety, and depression who presents to the ER with shortness of breath last night. I was called to evaluate her for HD as she is on HD MWF. Her last HD was on Monday. She was found to be hyperkalemic with ECG changes. She denies chest pain or palpitations. Upon further history she says that the shortness of breath began suddenly. She says that she was sitting watching TV when she suddenly developed shortness of breath. She denies lower ext swelling. She denies recent travel. She did recently have an URI. 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 Cardio/Vascular: Yes: HTN, Hyperlipdemia Pulmonary: Yes: Asthma Gastrointestinal: Yes: GERD Renal/: Yes: Renal Failure, Hemodialysis ...LMP: 12/01/14 Endocrine: Yes: Diabetes Mellitus - Past Surgical History Past Surgical History: Yes: AV Fistula/Graft (LUE), (x3) - Alcohol/Substance Use Hx Alcohol Use: No History of Substance Use: reports: None - Smoking History Smoking history: Unknown if ever smoked Have you smoked in the past 12 months: No Aproximately how many cigarettes per day: 6 - Social History ADL: Independent History of Recent Travel: No Home Medications - Allergies Allergies/Adverse Reactions: Allergies Allergy/AdvReac Type Severity Reaction Status Date / Time No Known Drug Allergies Allergy Verified 07/15/18 23:44 - Home Medications Home Medications: Ambulatory Orders Ammonium Lactate Cream [Lac-Hydrin 12% Cream -] 1 applic TP BID 12/14/16 Baclofen 10 mg PO HS 12/14/16 Bisacodyl [Bisacodyl -] 5 mg PO DAILY 12/14/16 Calcium Acetate 667 mg PO AC 12/14/16 Dexlansoprazole [Dexilant] 60 mg PO DAILY 12/14/16 Hydralazine HCl 100 mg PO TID 12/14/16 Melatonin 3 mg PO HS 12/14/16 Metoclopramide HCl [Reglan -] 10 mg PO TID 12/14/16 Nifedipine [Nifedipine ER] 60 mg PO DAILY 12/14/16 Quetiapine Fumarate [Seroquel -] 25 mg PO HS 12/14/16 Ramipril [Altace] 5 mg PO DAILY 12/14/16 Ranitidine [Zantac -] 150 mg PO DAILY 12/14/16 Sennosides [Senna -] 2 tab PO HS 12/14/16 Vitamin E 400 unit PO DAILY 12/14/16 Insulin (Levemir) [Levemir Vial] 20 units SQ HS #1 ml 12/16/16 Insulin (Levemir) [Levemir Vial] 35 units SQ AM #1 ml 12/16/16 Family Disease History - Family Disease History Family Disease History: CA: Father (colon cancer) Review of Systems - Review of Systems Constitutional: reports: Malaise. denies: Chills, Fever Eyes: reports: No Symptoms HENT: reports: No Symptoms Neck: reports: No Symptoms Cardiovascular: reports: Edema, Shortness of Breath Respiratory: reports: Cough, SOB, SOB on Exertion Gastrointestinal: reports: No Symptoms Genitourinary: reports: No Symptoms Musculoskeletal: reports: No Symptoms Neurological: reports: No Symptoms Endocrine: reports: No Symptoms Hematology/Lymphatic: reports: No Symptoms Psychiatric: reports: No Symptoms Physical Exam Vital Signs: Vital Signs Temperature 98.6 F 07/16/18 11:21 Pulse Rate 113 H 07/16/18 11:21 Respiratory Rate 23 H 07/16/18 11:21 Blood Pressure 150/88 07/16/18 11:21 O2 Sat by Pulse Oximetry (%) 98 07/16/18 11:21 Constitutional: Yes: Anxious Eyes: Yes: Conjunctiva Clear HENT: Yes: Atraumatic Neck: Yes: Supple Cardiovascular: Yes: Tachycardia, S1, S2 Respiratory: Yes: On Nasal O2, Tachypnea Gastrointestinal: Yes: Soft, Abdomen, Obese Renal/: Yes: WNL Musculoskeletal: Yes: WNL Edema: Yes Edema: LLE: Trace, RLE: Trace Neurological: Yes: Oriented Psychiatric: Yes: Oriented Labs: CBC, BMP 07/16/18 10:20 07/16/18 10:20 Imaging - Results Chest X-ray: Report Reviewed (mild congestion) Problem List - Problems (1) Shortness of breath Code(s): R06.02 - SHORTNESS OF BREATH (2) Hyperkalemia Code(s): E87.5 - HYPERKALEMIA (3) Tachypnea Code(s): R06.82 - TACHYPNEA, NOT ELSEWHERE CLASSIFIED (4) End stage kidney disease Code(s): N18.6 - END STAGE RENAL DISEASE Assessment/Plan Current Medications Generic Name Dose Route Start Last Admin Trade Name Freq PRN Reason Stop Dose Admin Baclofen 10 mg 07/16/18 22:00 Lioresal - PO HS VASQUEZ Bisacodyl 5 mg 07/16/18 10:00 07/16/18 10:25 Dulcolax - PO 5 mg DAILY VASQUEZ Administration Heparin Sodium (Porcine) 5,000 unit 07/16/18 10:00 07/16/18 10:26 Heparin - SQ 5,000 unit BID VASQUEZ Administration Heparin Sodium (Porcine) 1,000 unit 07/16/18 12:00 Heparin - IVPUSH PRN PRN Heparin Heparin Sodium (Porcine) 5,000 unit 07/16/18 12:01 Heparin - IVPUSH PRN PRN Heparin Hydralazine HCl 100 mg 07/16/18 06:00 07/16/18 06:40 Apresoline - PO 100 mg TID VASQUEZ Administration Sodium Chloride 250 mls @ 3,000 mls/hr 07/16/18 07:33 Normal Saline - IV 07/17/18 07:33 PRN PRN Hypotension during Dialysis Heparin Sodium (Porcine) 25, 500 mls @ 20 mls/hr 07/16/18 12:30 000 unit/ Sodium Chloride IV TITR VASQUEZ Protocol 1,000 UNIT/HR Lactic Acid 1 applic 07/16/18 10:00 07/16/18 10:26 Lac-Hydrin 12 TP Not Given BID VASQUEZ Melatonin 3 mg 07/16/18 22:00 Melatonin PO HS VASQUEZ Metoclopramide HCl 10 mg 07/16/18 07:00 07/16/18 11:19 Reglan - PO 10 mg TIDAC VASQUEZ Administration Nifedipine 60 mg 07/16/18 10:00 07/16/18 10:26 Procardia Xl - PO 60 mg DAILY VASQUEZ Administration Pantoprazole Sodium 40 mg 07/16/18 10:00 07/16/18 10:26 Protonix - PO 40 mg DAILY VASQUEZ Administration Ranitidine HCl 150 mg 07/16/18 10:00 07/16/18 10:26 Zantac - PO 150 mg DAILY VASQUEZ Administration Senna 2 tab 07/16/18 22:00 Senna - PO HS VASQUEZ Impression 1. ESRD 2. DM 3. HTN 4. gastroparesis 5. nausea 6. anemia 7. peripheral neuropathy 8. sudden onset shortness of breath Plan - HD today, pending pt getting to a tele bed - will need to rule out PE with sudden onset shortness of breath while resting - lower ext doppler - will arrange for HD before CT angio as pt is uncomfortable and can not lay flat. she also has elevated potassium with ecg changes - heparin to be started - discussed with pulmonary - discussed with medical team - there is congestion on cxr but it was read as mild - pt has 99 percent pulse ox - HD time 330 400 abf 2000 heparin - monitor bp - will follow Dr Arredondo
[2018-07-16] MEDS ORDERED: HEPARIN - 25,000 UNIT in SODIUM CHLORIDE 495 ML IV SCH (12:30)
[2018-07-16 12:33] LABS: ALLENS TEST POSITIVE
[2018-07-16 12:36] LABS: ARTERIAL BLD GAS O2 SATURATION 97.6 % (95-98); ARTERIAL BLOOD GAS BASE EXCESS -1.6 meq/l (-2-2); ARTERIAL BLOOD GAS PCO2 34.8 mmHg (35-45); ARTERIAL BLOOD GAS PO2 125 mmHg (80-105); ARTERIAL BLOOD GAS pH 7.42 (7.35-7.45)
[2018-07-16] MEDS ORDERED: HEPARIN INFUSION - 25,000 UNITS/500 ML INFUS.BAG IVPB ONE (12:54)
--- NOTE | 2018-07-16 13:17 | ECHO ---
Name: ANA LUISA CONNOLLY Exam:Adult Echocardiogram Study Date: 07/16/2018 10:50 AM Age: 52 yrs Reason For Study: CHF Height: 66 in Weight: 205 lb BSA: 2.0 m2 MMode/2D Measurements & Calculations IVSd: 1.2 cm Ao root diam: 2.7 cm LVIDd: 5.2 cm LA dimension: 4.5 cm LVIDs: 2.7 cm LVPWd: 1.3 cm EDV(Teich): 127.2 ml LVOT diam: 2.0 cm ESV(Teich): 27.5 ml LAV (MOD-bp): 92.5 ml Doppler Measurements & Calculations MV E max kwame: 222.0 cm/sec Ao V2 max: 275.8 cm/sec MV dec time: 0.10 sec Ao max P.4 mmHg LA(V,D): 1.5 cm2 LV V1 max P.7 mmHg MR max kwame: 548.4 cm/sec LV V1 max: 138.7 cm/sec MR max P.4 mmHg TR max kwame: 363.5 cm/sec PA V2 max: 212.7 cm/sec TR max P.8 mmHg PA max P.1 mmHg Med Peak E' Kwame: 13.6 cm/sec PI Vmax: 253.4 cm/sec Med E/e': 16.3 Lat Peak E' Kwame: 14.8 cm/sec Lat E/e': 15.0 Procedure A complete two-dimensional transthoracic echocardiogram was performed (2D, M-mode, Doppler and color flow Doppler). Left Ventricle The left ventricle is normal in size. There is mild concentric left ventricular hypertrophy. Left deborah tricular systolic function is normal. Ejection Fraction = 65-70%. No regional wall motion abnormalities noted. Right Ventricle The right ventricle is normal size. The right ventricular systolic function is normal. Atria The left atrium is moderately dilated. LA volume index is 46 ml/m2. Right atrial size is normal. Mitral Valve The mitral valve is normal in structure and function. There is mild to moderate mitral regurgitation. Tricuspid Valve The tricuspid valve is normal in structure and function. There is mild to moderate tricuspid regurgit ation. Pulmonary artery systolic pressure is at least 61 mmHg assuming RA pressure of 8 mmHg. Aortic Valve The aortic valve is normal in structure and function. No aortic regurgitation is present. Pulmonic Valve The pulmonic valve is not well visualized. Mild pulmonic valvular regurgitation. Great Vessels The aortic root is normal size. Pericardium/Pleura There is no pericardial effusion. Interpretation Summary The left ventricle is normal in size. There is mild concentric left ventricular hypertrophy. Left ventricular systolic function is normal. No regional wall motion abnormalities noted. Ejection Fraction = 65-70%. The right ventricular systolic function is normal. The left atrium is moderately dilated. Right atrial size is normal. There is mild to moderate mitral regurgitation. There is mild to moderate tricuspid regurgitation. Pulmonary artery systolic pressure is at least 61 mmHg assuming RA pressure of 8 mmHg Mild pulmonic valvular regurgitation. There is no pericardial effusion. Previous study is not available for comparison Tobias Salazar MD 07/16/2018 01:16 PM
--- NOTE | 2018-07-16 13:24 | CON.PULM ---
Consult Consult Specialty:: PULMONARY Referred by:: Dr Arredondo Reason for Consultation:: shortness of breath - History of Present Illness Chief Complaint: shortness of breath History of Present Illness: 52yo female with h/o HTN, DM, ESRD on HD, anxiety who presented with sudden onset shortness of breath and chest pain. Chest pain described as squeezing sensation, started while watching TV. No fevers, chills or sweats. Was treated for acute bronchitis last week with antibiotics. Found to be hyperkalemic on bloodwork. Denies missing HD sessions and reports compliance with diet and medications. She is a smoker 1/2 PPD but denies history of asthma or COPD. 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 Cardio/Vascular: Yes: HTN, Hyperlipdemia Pulmonary: Yes: Asthma Gastrointestinal: Yes: GERD Renal/: Yes: Renal Failure, Hemodialysis ...LMP: 12/01/14 Endocrine: Yes: Diabetes Mellitus - Past Surgical History Past Surgical History: Yes: AV Fistula/Graft (LUE), (x3) - Alcohol/Substance Use Hx Alcohol Use: No History of Substance Use: reports: None - Smoking History Smoking history: Unknown if ever smoked Have you smoked in the past 12 months: No Aproximately how many cigarettes per day: 6 - Social History ADL: Independent History of Recent Travel: No Home Medications - Allergies Allergies/Adverse Reactions: Allergies Allergy/AdvReac Type Severity Reaction Status Date / Time No Known Drug Allergies Allergy Verified 07/15/18 23:44 - Home Medications Home Medications: Ambulatory Orders Ammonium Lactate Cream [Lac-Hydrin 12% Cream -] 1 applic TP BID 12/14/16 Baclofen 10 mg PO HS 12/14/16 Bisacodyl [Bisacodyl -] 5 mg PO DAILY 12/14/16 Calcium Acetate 667 mg PO AC 12/14/16 Dexlansoprazole [Dexilant] 60 mg PO DAILY 12/14/16 Hydralazine HCl 100 mg PO TID 12/14/16 Melatonin 3 mg PO HS 12/14/16 Metoclopramide HCl [Reglan -] 10 mg PO TID 12/14/16 Nifedipine [Nifedipine ER] 60 mg PO DAILY 12/14/16 Quetiapine Fumarate [Seroquel -] 25 mg PO HS 12/14/16 Ramipril [Altace] 5 mg PO DAILY 12/14/16 Ranitidine [Zantac -] 150 mg PO DAILY 12/14/16 Sennosides [Senna -] 2 tab PO HS 12/14/16 Vitamin E 400 unit PO DAILY 12/14/16 Insulin (Levemir) [Levemir Vial] 20 units SQ HS #1 ml 12/16/16 Insulin (Levemir) [Levemir Vial] 35 units SQ AM #1 ml 12/16/16 Family Disease History - Family Disease History Family Disease History: CA: Father (colon cancer) Review of Systems - Review of Systems Constitutional: reports: Weakness. denies: Chills, Fever Eyes: denies: Recent Change in Vision HENT: denies: Nasal Congestion, Throat Pain Neck: denies: Stiffness, Tenderness Cardiovascular: reports: Chest Pain, Shortness of Breath. denies: Edema, Palpitations Respiratory: reports: SOB on Exertion. denies: Hemoptysis, Wheezing Gastrointestinal: denies: Abdominal Pain, Nausea, Vomiting Genitourinary: denies: Dysuria, Hematuria Neurological: denies: Dizziness, Headache Endocrine: denies: Unexplained Weight Loss Physical Exam Vital Sings: Vital Signs Temperature 98.6 F 07/16/18 11:21 Pulse Rate 113 H 07/16/18 11:21 Respiratory Rate 23 H 07/16/18 11:21 Blood Pressure 150/88 07/16/18 11:21 O2 Sat by Pulse Oximetry (%) 98 07/16/18 11:21 Constitutional: Yes: Anxious, Mild Distress Eyes: Yes: Conjunctiva Clear, EOM Intact HENT: Yes: Atraumatic, Normocephalic Neck: Yes: Supple, Trachea Midline Cardiovascular: Yes: Regular Rate and Rhythm Respiratory: Yes: Diminished (distant breath sounds). No: Wheezes ...Clubbing: No Gastrointestinal: Yes: Normal Bowel Sounds, Soft. No: Tenderness Edema: Yes (trace) Labs: CBC, BMP 07/16/18 10:20 07/16/18 10:20 ABG Results ABG pH 7.42 (7.35-7.45) 07/16/18 12:20 ABG pCO2 at Pt Temp 34.8 mmHg (35-45) L 07/16/18 12:20 ABG pO2 at Pt Temp 125 mmHg (80-105) H 07/16/18 12:20 ABG HCO3 22.1 mmol/L (22-27) 07/16/18 12:20 ABG O2 Sat (Measured) 97.6 % (95-98) 07/16/18 12:20 ABG O2 Content 12.5 % vol (15-22) L 07/16/18 12:20 ABG Base Excess -1.6 meq/l (-2-2) 07/16/18 12:20 Imaging - Results Chest X-ray: Report Reviewed, Image Reviewed (pulmonary vascular congestion) Problem List - Problems (1) Chest pain at rest Code(s): R07.9 - CHEST PAIN, UNSPECIFIED (2) End stage kidney disease Code(s): N18.6 - END STAGE RENAL DISEASE (3) Diabetes Code(s): E11.9 - TYPE 2 DIABETES MELLITUS WITHOUT COMPLICATIONS Qualifiers: Diabetes mellitus type: type 2 Diabetes mellitus longterm insulin use: with longterm use Diabetes mellitus complication status: with skin complications Diabetes mellitus complication detail: with foot ulcer Qualified Code(s): E11.621 - Type 2 diabetes mellitus with foot ulcer (4) End stage renal disease on dialysis Code(s): N18.6 - END STAGE RENAL DISEASE; Z99.2 - DEPENDENCE ON RENAL DIALYSIS (5) HTN (hypertension) Code(s): I10 - ESSENTIAL (PRIMARY) HYPERTENSION Qualifiers: Hypertension type: essential hypertension Qualified Code(s): I10 - Essential (primary) hypertension Assessment/Plan Chest Pain ESRD on HD Acute Diastolic Heart Failure Volume Overload +Troponins likely Demand Ischemia Pulmonary HTN r/o PE Hyperkalemia HTN DM - HD per renal with ultrafiltration - monitor lytes - agree with empiric anticoagulation - CTA chest when able to lie flat - LE dopplers - O2 to keep Spo2 >90% - smoking cessation discussed - will follow Thank you for this consult Reuben Willams MD
[2018-07-16] MEDS ORDERED: INSULIN SLIDING SCALE (NOVOLOG) 1 VIAL SQ SCH (16:30)
--- NOTE | 2018-07-16 18:15 | PN ---
Physical Exam: SUBJECTIVE: Patient seen and examined; sitting up in bed; clenching chest; has pain with palpation. Denies n/v/murphy/blurry vision, jaw pain, numbness, tingling OBJECTIVE: Vital Signs Period Temp Pulse Resp BP Sys/Rivera Pulse Ox Last 24 Hr 97.8 F-99.4 F 18-118 16-26 118-183/58-91 90-100 GENERAL: The patient is obese and anxious. NECK: Trachea midline, full range of motion, supple. LUNGS: decreased breath sounds HEART:tachy and reg rhythm, S1, S2 without murmur, rub or gallop. ABDOMEN: Soft, nontender, nondistended, normoactive bowel sounds, no guarding, no rebound, no hepatosplenomegaly, no masses. EXTREMITIES: 2+ pulses, warm, well-perfused, no edema. NEUROLOGICAL: Cranial nerves II through XII grossly intact. Normal speech, gait not observed. PSYCH: Normal mood, normal affect. Laboratory Results - last 24 hr 07/16/18 07/16/18 07/16/18 00:45 00:45 00:45 WBC 8.6 RBC 2.98 L Hgb 10.1 L Hct 29.1 L MCV 97.5 H MCH 33.8 H MCHC 34.6 RDW 14.8 Plt Count 320 D MPV 8.9 Absolute Neuts (auto) 6.5 Neutrophils % 75.7 Neutrophils % (Manual) Band Neutrophils % Lymphocytes % 14.1 Lymphocytes % (Manual) Monocytes % 7.1 Monocytes % (Manual) Eosinophils % 2.2 D Eosinophils % (Manual) Basophils % 0.9 Basophils % (Manual) Myelocytes % (Man) Promyelocytes % (Man) Blast Cells % (Manual) Nucleated RBC % 0 Metamyelocytes Hypochromia Platelet Estimate Polychromasia Poikilocytosis Anisocytosis Microcytosis Macrocytosis PT with INR INR PTT (Actin FS) 38.4 H Anticoagulation Therapy Puncture Site ABG pH ABG pCO2 at Pt Temp ABG pO2 at Pt Temp ABG HCO3 ABG O2 Sat (Measured) ABG O2 Content ABG Base Excess Jono Test O2 Delivery Device Oxygen Flow Rate Vent Mode Vent Rate Mechanical Rate Pressure Support Vent Sodium 133 L Potassium 6.1 H* Chloride 100 Carbon Dioxide 26 Anion Gap 7 L BUN 62 H Creatinine 8.2 H* Creat Clearance w eGFR 5.14 POC Glucometer Random Glucose 278 H Hemoglobin A1c % Calcium 8.9 Phosphorus Magnesium Total Bilirubin 0.4 GGT AST 45 H ALT 105 H Alkaline Phosphatase 458 H Creatine Kinase Troponin I Total Protein 7.5 Albumin 3.3 L Lipase Acetone, Qual Influenza A (Rapid) Influenza B (Rapid) 07/16/18 07/16/18 07/16/18 00:45 00:45 06:20 WBC RBC Hgb Hct MCV MCH MCHC RDW Plt Count MPV Absolute Neuts (auto) Neutrophils % Neutrophils % (Manual) Band Neutrophils % Lymphocytes % Lymphocytes % (Manual) Monocytes % Monocytes % (Manual) Eosinophils % Eosinophils % (Manual) Basophils % Basophils % (Manual) Myelocytes % (Man) Promyelocytes % (Man) Blast Cells % (Manual) Nucleated RBC % Metamyelocytes Hypochromia Platelet Estimate Polychromasia Poikilocytosis Anisocytosis Microcytosis Macrocytosis PT with INR 11.30 INR 0.96 PTT (Actin FS) Anticoagulation Therapy Puncture Site ABG pH ABG pCO2 at Pt Temp ABG pO2 at Pt Temp ABG HCO3 ABG O2 Sat (Measured) ABG O2 Content ABG Base Excess Jono Test O2 Delivery Device Oxygen Flow Rate Vent Mode Vent Rate Mechanical Rate Pressure Support Vent Sodium Potassium Chloride Carbon Dioxide Anion Gap BUN Creatinine Creat Clearance w eGFR POC Glucometer Random Glucose Hemoglobin A1c % Calcium Phosphorus Magnesium 2.9 H Total Bilirubin GGT 228 H AST ALT Alkaline Phosphatase Creatine Kinase Troponin I 0.09 H Total Protein Albumin Lipase 177 Acetone, Qual Influenza A (Rapid) Influenza B (Rapid) 07/16/18 07/16/18 07/16/18 06:20 06:45 08:00 WBC RBC Hgb Hct MCV MCH MCHC RDW Plt Count MPV Absolute Neuts (auto) Neutrophils % Neutrophils % (Manual) Band Neutrophils % Lymphocytes % Lymphocytes % (Manual) Monocytes % Monocytes % (Manual) Eosinophils % Eosinophils % (Manual) Basophils % Basophils % (Manual) Myelocytes % (Man) Promyelocytes % (Man) Blast Cells % (Manual) Nucleated RBC % Metamyelocytes Hypochromia Platelet Estimate Polychromasia Poikilocytosis Anisocytosis Microcytosis Macrocytosis PT with INR INR PTT (Actin FS) Anticoagulation Therapy Puncture Site ABG pH ABG pCO2 at Pt Temp ABG pO2 at Pt Temp ABG HCO3 ABG O2 Sat (Measured) ABG O2 Content ABG Base Excess Jono Test O2 Delivery Device Oxygen Flow Rate Vent Mode Vent Rate Mechanical Rate Pressure Support Vent Sodium 131 L Potassium 5.8 H Chloride 98 Carbon Dioxide 20 L Anion Gap 13 BUN 64 H Creatinine 9.0 H* Creat Clearance w eGFR 4.61 POC Glucometer Random Glucose 537 H* Hemoglobin A1c % Calcium 8.7 Phosphorus Magnesium Total Bilirubin GGT AST ALT Alkaline Phosphatase Creatine Kinase Troponin I 0.11 H Total Protein Albumin Lipase Acetone, Qual Influenza A (Rapid) Negative Influenza B (Rapid) Negative 07/16/18 07/16/18 07/16/18 10:20 10:20 10:20 WBC 8.4 RBC 2.99 L Hgb 10.0 L Hct 29.3 L MCV 98.0 H MCH 33.5 MCHC 34.2 RDW 14.6 Plt Count 313 MPV 9.2 Absolute Neuts (auto) 7.9 Neutrophils % 94.1 H D Neutrophils % (Manual) 93.9 H Band Neutrophils % 1.0 Lymphocytes % 4.8 L D Lymphocytes % (Manual) 4.1 L Monocytes % 0.8 L D Monocytes % (Manual) 0 L Eosinophils % 0.0 D Eosinophils % (Manual) 0.0 Basophils % 0.3 Basophils % (Manual) 1.0 Myelocytes % (Man) 0 Promyelocytes % (Man) 0 Blast Cells % (Manual) 0 Nucleated RBC % 0 Metamyelocytes 0 Hypochromia 0 Platelet Estimate Normal Polychromasia 0 Poikilocytosis 0 Anisocytosis 0 Microcytosis 0 Macrocytosis 1+ PT with INR INR PTT (Actin FS) Anticoagulation Therapy Puncture Site ABG pH ABG pCO2 at Pt Temp ABG pO2 at Pt Temp ABG HCO3 ABG O2 Sat (Measured) ABG O2 Content ABG Base Excess Jono Test O2 Delivery Device Oxygen Flow Rate Vent Mode Vent Rate Mechanical Rate Pressure Support Vent Sodium 131 L Potassium 6.0 H Chloride 96 L Carbon Dioxide 23 Anion Gap 12 BUN 65 H Creatinine 9.0 H* Creat Clearance w eGFR 4.61 POC Glucometer Random Glucose 546 H* Hemoglobin A1c % 6.8 H Calcium 8.7 Phosphorus 4.6 Magnesium 2.6 H Total Bilirubin 0.4 GGT AST 35 ALT 99 H Alkaline Phosphatase 445 H Creatine Kinase Troponin I Total Protein 7.9 Albumin 3.5 Lipase Acetone, Qual Influenza A (Rapid) Influenza B (Rapid) 07/16/18 07/16/18 07/16/18 10:20 10:34 11:50 WBC RBC Hgb Hct MCV MCH MCHC RDW Plt Count MPV Absolute Neuts (auto) Neutrophils % Neutrophils % (Manual) Band Neutrophils % Lymphocytes % Lymphocytes % (Manual) Monocytes % Monocytes % (Manual) Eosinophils % Eosinophils % (Manual) Basophils % Basophils % (Manual) Myelocytes % (Man) Promyelocytes % (Man) Blast Cells % (Manual) Nucleated RBC % Metamyelocytes Hypochromia Platelet Estimate Polychromasia Poikilocytosis Anisocytosis Microcytosis Macrocytosis PT with INR INR PTT (Actin FS) Anticoagulation Therapy Puncture Site ABG pH ABG pCO2 at Pt Temp ABG pO2 at Pt Temp ABG HCO3 ABG O2 Sat (Measured) ABG O2 Content ABG Base Excess Jono Test O2 Delivery Device Oxygen Flow Rate Vent Mode Vent Rate Mechanical Rate Pressure Support Vent Sodium Potassium Chloride Carbon Dioxide Anion Gap BUN Creatinine Creat Clearance w eGFR POC Glucometer 538 Random Glucose Hemoglobin A1c % Calcium Phosphorus Magnesium Total Bilirubin GGT AST ALT Alkaline Phosphatase Creatine Kinase 98 Troponin I 0.12 H Total Protein Albumin Lipase Acetone, Qual Negative L Influenza A (Rapid) Influenza B (Rapid) 07/16/18 07/16/18 12:20 16:56 WBC RBC Hgb Hct MCV MCH MCHC RDW Plt Count MPV Absolute Neuts (auto) Neutrophils % Neutrophils % (Manual) Band Neutrophils % Lymphocytes % Lymphocytes % (Manual) Monocytes % Monocytes % (Manual) Eosinophils % Eosinophils % (Manual) Basophils % Basophils % (Manual) Myelocytes % (Man) Promyelocytes % (Man) Blast Cells % (Manual) Nucleated RBC % Metamyelocytes Hypochromia Platelet Estimate Polychromasia Poikilocytosis Anisocytosis Microcytosis Macrocytosis PT with INR INR PTT (Actin FS) Anticoagulation Therapy No Result Required. Puncture Site Right radial ABG pH 7.42 ABG pCO2 at Pt Temp 34.8 L ABG pO2 at Pt Temp 125 H ABG HCO3 22.1 ABG O2 Sat (Measured) 97.6 ABG O2 Content 12.5 L ABG Base Excess -1.6 Jono Test Positive O2 Delivery Device Nasal Oxygen Flow Rate 2 1/2 l Vent Mode No Result Required. Vent Rate No Result Required. Mechanical Rate No Result Required. Pressure Support Vent No Result Required. Sodium Potassium Chloride Carbon Dioxide Anion Gap BUN Creatinine Creat Clearance w eGFR POC Glucometer 207 Random Glucose Hemoglobin A1c % Calcium Phosphorus Magnesium Total Bilirubin GGT AST ALT Alkaline Phosphatase Creatine Kinase Troponin I Total Protein Albumin Lipase Acetone, Qual Influenza A (Rapid) Influenza B (Rapid) Active Medications Generic Name Dose Route Start Last Admin Trade Name Freq PRN Reason Stop Dose Admin Baclofen 10 mg 07/16/18 22:00 Lioresal - PO HS [facility] Bisacodyl 5 mg 07/16/18 10:00 07/16/18 10:25 Dulcolax - PO 5 mg DAILY [facility] Administration Heparin Sodium (Porcine) 1,000 unit 07/16/18 12:00 Heparin - IVPUSH PRN PRN Heparin Heparin Sodium (Porcine) 5,000 unit 07/16/18 12:01 Heparin - IVPUSH PRN PRN Heparin Hydralazine HCl 100 mg 07/16/18 06:00 07/16/18 06:40 Apresoline - PO 100 mg TID [facility] Administration Sodium Chloride 250 mls @ 3,000 mls/hr 07/16/18 07:33 Normal Saline - IV 07/17/18 07:33 PRN PRN Hypotension during Dialysis Heparin Sodium (Porcine) 25, 500 mls @ 20 mls/hr 07/16/18 12:30 07/16/18 12: 59 000 unit/ Sodium Chloride IV 1,000 unit/hr TITR [facility] 20 mls/hr Administration Protocol 1,000 UNIT/HR Insulin Aspart 1 vial 07/16/18 16:30 Novolog Vial Sliding Scale - SQ ACHS [facility] Protocol Insulin Detemir 18 units 07/16/18 22:00 Levemir Vial SQ HS [facility] Lactic Acid 1 applic 07/16/18 10:00 07/16/18 10:26 Lac-Hydrin 12 TP Not Given BID [facility] Melatonin 3 mg 07/16/18 22:00 Melatonin PO HS [facility] Metoclopramide HCl 10 mg 07/16/18 07:00 07/16/18 11:19 Reglan - PO 10 mg TIDAC [facility] Administration Nifedipine 60 mg 07/16/18 10:00 07/16/18 10:26 Procardia Xl - PO 60 mg DAILY [facility] Administration Pantoprazole Sodium 40 mg 07/16/18 10:00 07/16/18 10:26 Protonix - PO 40 mg DAILY [facility] Administration Ranitidine HCl 150 mg 07/16/18 10:00 07/16/18 10:26 Zantac - PO 150 mg DAILY [facility] Administration Senna 2 tab 07/16/18 22:00 Senna - PO HS [facility] ASSESSMENT/PLAN: 52yo female with h/o HTN, DM, ESRD on HD, anxiety who presented with sudden onset shortness of breath and chest pain. Chest pain described as squeezing sensation, started while watching TV. No fevers, chills or sweats. #Chest pain with troponemia -most likely atypical due to reproducible ; -troponins may be secondary to CKD or demand ischemia from tachycardia -ECHO; with pulm HTN; tricuspid regurg -will order CTA to r/o PE; -start hep ggt for now -trend trops #ESRD: on HD-stat HD today -monitor bmp #hyperkalemia; s/p insulin , bicarb, albuterol, kayex; and HD -trend K #HTN: stable -hydralaizine #DM: -insulin ss -levemir wt based; increase prn VTE: hep ggt GI: protonix Disposition: monitor tele Hyperkalemia HTN DM - HD per renal with ultrafiltration - monitor lytes - agree with empiric anticoagulation - CTA chest when able to lie flat - LE dopplers - O2 to keep Spo2 >90% - smoking cessation discussed today, pending pt getting to a tele bed - will need to rule out PE with sudden onset shortness of breath while resting - lower ext doppler - will arrange for HD before CT angio as pt is uncomfortable and can not lay flat. she also has elevated potassium with ecg changes - heparin to be started - discussed with pulmonary - discussed with medical team Visit type - Emergency Visit Emergency Visit: Yes ED Registration Date: 07/16/18 Care time: The patient presented to the Emergency Department on the above date and was hospitalized for further evaluation of their emergent condition. - New Patient This patient is new to me today: Yes Date on this admission: 07/16/18 - Critical Care Critical Care patient: No
[2018-07-16 21:38] LABS: POTASSIUM 4.1 mmol/L (3.5-5.1)
[2018-07-16] MEDS ORDERED: INSULIN (LEVEMIR) 100 UNITS/ML UNITS SQ SCH (22:00)
[2018-07-16] MEDS ORDERED: BACLOFEN 10 MG TABLET (FP) PO SCH (22:00)
[2018-07-16] MEDS ORDERED: SENNOSIDES 8.6MG TABLET (FP) PO SCH (22:00)
[2018-07-16] MEDS ORDERED: MELATONIN 1 MG TABLET PO SCH (22:00)
[2018-07-16] MEDS: INSULIN SLIDING SCALE (NOVOLOG) 1 VIAL SQ SCH (22:28)
[2018-07-17] MEDS ORDERED: ACETAMINOPHEN 1000 MG/100 ML VIAL (NON FORMULARY) IVPB ONE (00:02)
[2018-07-17] MEDS ORDERED: IBUPROFEN 400 MG TABLET (FP) PO ONE (00:30)
[2018-07-17] MEDS ORDERED: ALBUTEROL SO4 0.083% IH SOL 2.5 MG/3 ML VIAL.NEB. NEB ONE (04:34)
[2018-07-17] MEDS: METOCLOPRAMIDE HCL 10 MG TABLET (FP) PO SCH ×2 (06:01→10:49)
[2018-07-17] MEDS: hydrALAZINE HCL 50 MG TABLET (FP) PO SCH (06:01)
[2018-07-17] MEDS: INSULIN SLIDING SCALE (NOVOLOG) 1 VIAL SQ SCH ×2 (06:01→12:26)
[2018-07-17] MEDS ORDERED: ALBUTEROL SO4 0.083% IH SOL 2.5 MG/3 ML VIAL.NEB. NEB PRN (07:33)
[2018-07-17 08:14] LABS: BASO % 0.8 % (0-2.0); HEMATOCRIT 27.2 % (32.4-45.2); HEMOGLOBIN 9.4 GM/dL (10.7-15.3); MCH 33.6 pg (25.7-33.7); MCHC 34.8 g/dl (32.0-36.0); MEAN CELL VOLUME 96.7 fl (80-96); MONO % 7.9 % (3.8-10.2); NEUT % 68.3 % (42.8-82.8); PLATELET COUNT 303 K/MM3 (134-434); RBC 2.81 M/mm3 (3.60-5.2); RDW 14.8 % (11.6-15.6)
[2018-07-17] MEDS: ALBUTEROL SO4 2.5/IPRATROPIUM 0.5 INH SOL 3 ML VIAL.NEB. NEB SCH ×2 (08:30→15:03)
[2018-07-17 08:46] LABS: ANION GAP 10 MMOL/L (8-16); BLOOD UREA NITROGEN 39 mg/dL (7-18); CALCIUM 8.7 mg/dL (8.5-10.1); CHLORIDE 101 mmol/L (98-107); CO2 29 mmol/L (21-32); CREATININE 5.1 mg/dL (0.55-1.3); GLUCOSE,RANDOM 114 mg/dL (74-106); MAGNESIUM 2.4 mg/dL (1.8-2.4); PHOSPHOROUS 5.6 mg/dL (2.5-4.9); POTASSIUM 4.2 mmol/L (3.5-5.1); SODIUM 140 mmol/L (136-145)
[2018-07-17] MEDS ORDERED: methylPREDNISolone NA SUCC 40 MG/1 ML VIAL IVPUSH SCH (10:00)
[2018-07-17] MEDS: PANTOPRAZOLE 40 MG TABLET (FP) PO SCH (10:48)
[2018-07-17] MEDS: NICOTINE 7 MG/24 HOURS TOPICAL PATCH TD SCH ×2 (10:48→10:56)
[2018-07-17] MEDS: AMMONIUM LACTATE 12% LOTION 225 GM BOTTLE TP SCH (10:48)
[2018-07-17] MEDS: BISACODYL 5 MG TABLET.DR (FP) PO SCH (10:48)
[2018-07-17] MEDS: NIFEdipine E.R 60 MG TABLET (UD) PO SCH (10:49)
[2018-07-17] MEDS: RANITIDINE HCL 150 MG TABLET (FP) PO SCH (10:49)
--- NOTE | 2018-07-17 11:39 | PN ---
Progress Note, Physician History of Present Illness: PULMONARY ALERT,FEELING BETTER,LESS DYSPNEIC,-CP. CHEST CTA -PE - Current Medication List Current Medications: Active Medications Albuterol Sulfate (Ventolin 0.083% Nebulizer Soln -) 1 amp NEB Q1H PRN PRN Reason: SHORT OF BREATH/WHEEZING Albuterol/Ipratropium (Duoneb -) 1 amp NEB RTID [facility] Last Admin: 07/17/18 08:30 Dose: 1 amp Baclofen (Lioresal -) 10 mg PO HS [facility] Last Admin: 07/16/18 22:27 Dose: 10 mg Bisacodyl (Dulcolax -) 5 mg PO DAILY [facility] Last Admin: 07/17/18 10:48 Dose: 5 mg Heparin Sodium (Porcine) (Heparin -) 5,000 unit SQ TID [facility] Hydralazine HCl (Apresoline -) 100 mg PO TID [facility] Last Admin: 07/17/18 06:01 Dose: 100 mg Sodium Chloride (Normal Saline -) 250 mls @ 3,000 mls/hr IV PRN PRN PRN Reason: Hypotension during Dialysis Stop: 07/17/18 07:33 Insulin Aspart (Novolog Vial Sliding Scale -) 1 vial SQ [facility]; Protocol Last Admin: 07/17/18 06:01 Dose: Not Given Insulin Detemir (Levemir Vial) 18 units SQ [facility] Last Admin: 07/16/18 22:27 Dose: 18 units Lactic Acid (Lac-Hydrin 12) 1 applic TP BID [facility] Last Admin: 07/17/18 10:48 Dose: 1 applic Melatonin (Melatonin) 3 mg PO [facility] Last Admin: 07/16/18 22:28 Dose: 3 mg Methylprednisolone Sodium Succinate (Solu-Medrol -) 40 mg IVPUSH DAILY [facility] Last Admin: 07/17/18 10:48 Dose: 40 mg Metoclopramide HCl (Reglan -) 10 mg PO TIDAC [facility] Last Admin: 07/17/18 10:49 Dose: 10 mg Nicotine (Nicoderm Patch -) 7 mg TD DAILY [facility] Last Admin: 07/17/18 10:56 Dose: Not Given Nifedipine (Procardia Xl -) 60 mg PO DAILY [facility] Last Admin: 07/17/18 10:49 Dose: 60 mg Pantoprazole Sodium (Protonix -) 40 mg PO DAILY [facility] Last Admin: 07/17/18 10:48 Dose: 40 mg Ranitidine HCl (Zantac -) 150 mg PO DAILY [facility] Last Admin: 07/17/18 10:49 Dose: 150 mg Senna (Senna -) 2 tab PO HS [facility] Last Admin: 07/16/18 22:27 Dose: 2 tab - Objective Vital Signs: Vital Signs Temperature 98.6 F 07/17/18 09:00 Pulse Rate 101 H 07/17/18 09:00 Respiratory Rate 20 07/17/18 09:00 Blood Pressure 160/76 07/17/18 09:00 O2 Sat by Pulse Oximetry (%) 97 07/16/18 21:00 Constitutional: Yes: Well Nourished, Calm Eyes: Yes: WNL HENT: Yes: WNL Neck: Yes: WNL Cardiovascular: Yes: Regular Rate and Rhythm, S1, S2 Respiratory: Yes: CTA Bilaterally Gastrointestinal: Yes: Normal Bowel Sounds, Soft Extremities: Yes: WNL Edema: No Labs: CBC, BMP 07/17/18 06:50 07/17/18 06:50 INR, PTT INR 0.96 (0.83-1.09) 07/16/18 00:45 - ....Imaging Cat Scan: Report Reviewed, Image Reviewed Assessment/Plan Problem List - Problems (1) Chest pain at rest Code(s): R07.9 - CHEST PAIN, UNSPECIFIED (2) End stage kidney disease Code(s): N18.6 - END STAGE RENAL DISEASE (3) Diabetes Code(s): E11.9 - TYPE 2 DIABETES MELLITUS WITHOUT COMPLICATIONS Qualifiers: Diabetes mellitus type: type 2 Diabetes mellitus manager long term care insulin use: with long-term use Diabetes mellitus complication status: with skin complications Diabetes mellitus complication detail: with foot ulcer Qualified Code(s): E11.621 - Type 2 diabetes mellitus with foot ulcer (4) End stage renal disease on dialysis Code(s): N18.6 - END STAGE RENAL DISEASE; Z99.2 - DEPENDENCE ON RENAL DIALYSIS (5) HTN (hypertension) Code(s): I10 - ESSENTIAL (PRIMARY) HYPERTENSION Qualifiers: Hypertension type: essential hypertension Qualified Code(s): I10 - Essential (primary) hypertension Assessment/Plan Dyspnea Chest Pain ESRD on HD Acute Diastolic Heart Failure Volume Overload +Troponins likely Demand Ischemia Pulmonary HTN Hyperkalemia HTN DM - HD per renal with ultrafiltration - monitor lytes - anticoagulation - O2 to keep Spo2 >90% - smoking cessation discussed - duplex lower extremities DR PALUMBO
--- NOTE | 2018-07-17 12:50 | PN ---
Progress Note, Physician History of Present Illness: Pt seen and examined at bedside. She is awake and alert. She says she feels better and is eager to go home. She denies shortness of breath. - Current Medication List Current Medications: Active Medications Albuterol Sulfate (Ventolin 0.083% Nebulizer Soln -) 1 amp NEB Q1H PRN PRN Reason: SHORT OF BREATH/WHEEZING Albuterol/Ipratropium (Duoneb -) 1 amp NEB RTID [facility] Last Admin: 07/17/18 08:30 Dose: 1 amp Baclofen (Lioresal -) 10 mg PO HS [facility] Last Admin: 07/16/18 22:27 Dose: 10 mg Bisacodyl (Dulcolax -) 5 mg PO DAILY [facility] Last Admin: 07/17/18 10:48 Dose: 5 mg Heparin Sodium (Porcine) (Heparin -) 5,000 unit SQ TID [facility] Hydralazine HCl (Apresoline -) 100 mg PO TID [facility] Last Admin: 07/17/18 06:01 Dose: 100 mg Sodium Chloride (Normal Saline -) 250 mls @ 3,000 mls/hr IV PRN PRN PRN Reason: Hypotension during Dialysis Stop: 07/17/18 07:33 Insulin Aspart (Novolog Vial Sliding Scale -) 1 vial SQ [facility]; Protocol Last Admin: 07/17/18 12:26 Dose: 4 units Insulin Detemir (Levemir Vial) 18 units SQ [facility] Last Admin: 07/16/18 22:27 Dose: 18 units Lactic Acid (Lac-Hydrin 12) 1 applic TP BID [facility] Last Admin: 07/17/18 10:48 Dose: 1 applic Melatonin (Melatonin) 3 mg PO [facility] Last Admin: 07/16/18 22:28 Dose: 3 mg Methylprednisolone Sodium Succinate (Solu-Medrol -) 40 mg IVPUSH DAILY [facility] Last Admin: 07/17/18 10:48 Dose: 40 mg Metoclopramide HCl (Reglan -) 10 mg PO TIDAC [facility] Last Admin: 07/17/18 10:49 Dose: 10 mg Nicotine (Nicoderm Patch -) 7 mg TD DAILY [facility] Last Admin: 07/17/18 10:56 Dose: Not Given Nifedipine (Procardia Xl -) 60 mg PO DAILY [facility] Last Admin: 07/17/18 10:49 Dose: 60 mg Pantoprazole Sodium (Protonix -) 40 mg PO DAILY [facility] Last Admin: 07/17/18 10:48 Dose: 40 mg Ranitidine HCl (Zantac -) 150 mg PO DAILY [facility] Last Admin: 07/17/18 10:49 Dose: 150 mg Senna (Senna -) 2 tab PO HS [facility] Last Admin: 07/16/18 22:27 Dose: 2 tab - Objective Vital Signs: Vital Signs Temperature 98.6 F 07/17/18 09:00 Pulse Rate 101 H 07/17/18 09:00 Respiratory Rate 20 07/17/18 09:00 Blood Pressure 160/76 07/17/18 09:00 O2 Sat by Pulse Oximetry (%) 97 07/17/18 09:00 Constitutional: Yes: Calm Eyes: Yes: Conjunctiva Clear HENT: Yes: Atraumatic Neck: Yes: Supple Cardiovascular: Yes: S1, S2 Respiratory: Yes: CTA Bilaterally Gastrointestinal: Yes: Soft Genitourinary: Yes: WNL Musculoskeletal: Yes: WNL Edema: No Neurological: Yes: Oriented Psychiatric: Yes: Oriented Labs: CBC, BMP 07/17/18 06:50 07/17/18 06:50 INR, PTT INR 0.96 (0.83-1.09) 07/16/18 00:45 Problem List - Problems (1) Shortness of breath Code(s): R06.02 - SHORTNESS OF BREATH (2) Hyperkalemia Code(s): E87.5 - HYPERKALEMIA (3) Tachypnea Code(s): R06.82 - TACHYPNEA, NOT ELSEWHERE CLASSIFIED (4) End stage kidney disease Code(s): N18.6 - END STAGE RENAL DISEASE Assessment/Plan Current Medications Generic Name Dose Route Start Last Admin Trade Name Freq PRN Reason Stop Dose Admin Albuterol Sulfate 1 amp 07/17/18 07:33 Ventolin 0.083% Nebulizer Soln - NEB Q1H PRN SHORT OF BREATH/WHEEZING Albuterol/Ipratropium 1 amp 07/17/18 08:00 07/17/18 08:30 Duoneb - NEB 1 amp RTID [facility] Administration Baclofen 10 mg 07/16/18 22:00 07/16/18 22:27 Lioresal - PO 10 mg HS [facility] Administration Bisacodyl 5 mg 07/16/18 10:00 07/17/18 10:48 Dulcolax - PO 5 mg DAILY [facility] Administration Heparin Sodium (Porcine) 5,000 unit 07/17/18 14:00 Heparin - SQ TID [facility] Hydralazine HCl 100 mg 07/16/18 06:00 07/17/18 06:01 Apresoline - PO 100 mg TID [facility] Administration Sodium Chloride 250 mls @ 3,000 mls/hr 07/16/18 07:33 Normal Saline - IV 07/17/18 07:33 PRN PRN Hypotension during Dialysis Insulin Aspart 1 vial 07/16/18 18:37 07/17/18 12:26 Novolog Vial Sliding Scale - SQ 4 units ACHS [facility] Administration Protocol Insulin Detemir 18 units 07/16/18 22:00 07/16/18 22:27 Levemir Vial SQ 18 units HS [facility] Administration Lactic Acid 1 applic 07/16/18 10:00 07/17/18 10:48 Lac-Hydrin 12 TP 1 applic BID [facility] Administration Melatonin 3 mg 07/16/18 22:00 07/16/18 22:28 Melatonin PO 3 mg HS [facility] Administration Methylprednisolone Sodium Succinate 40 mg 07/17/18 10:00 07/17/18 10:48 Solu-Medrol - IVPUSH 40 mg DAILY [facility] Administration Metoclopramide HCl 10 mg 07/16/18 07:00 07/17/18 10:49 Reglan - PO 10 mg TIDAC [facility] Administration Nicotine 7 mg 07/17/18 10:00 07/17/18 10:56 Nicoderm Patch - TD Not Given DAILY [facility] Nifedipine 60 mg 07/16/18 10:00 07/17/18 10:49 Procardia Xl - PO 60 mg DAILY [facility] Administration Pantoprazole Sodium 40 mg 07/16/18 10:00 07/17/18 10:48 Protonix - PO 40 mg DAILY [facility] Administration Ranitidine HCl 150 mg 07/16/18 10:00 07/17/18 10:49 Zantac - PO 150 mg DAILY [facility] Administration Senna 2 tab 07/16/18 22:00 07/16/18 22:27 Senna - PO 2 tab HS [facility] Administration Impression 1. ESRD 2. DM 3. HTN 4. gastroparesis 5. nausea 6. anemia 7. peripheral neuropathy 8. sudden onset shortness of breath Plan - pt tolerated HD - ct neg for PE - she has HD set up as outpt tomorrow - volume status improved - discussed with pt and Dr Patterson, should increase HD time to 3:45 - HD time 330 400 abf 2000 heparin - monitor bp - will follow Dr Arredondo
[2018-07-17] MEDS ORDERED: HEPARIN NA (PORCINE) 5,000 UNITS/ML 1ML VIAL SQ SCH (14:00)
--- NOTE | 2018-07-17 14:51 | DS ---
Physical Exam: SUBJECTIVE: Patient seen and examined; shortness of breath improved; off NC; OBJECTIVE: Vital Signs Period Temp Pulse Resp BP Sys/Rivera Pulse Ox Last 24 Hr 97.8 F-98.6 F 60-104 18-22 118-182/56-87 97-97 PHYSICAL EXAM GENERAL: The patient is awake, alert, and fully oriented, in no acute distress. LUNGS: decreased breath sounds, no wheezes, no crackles, no accessory muscle use. HEART: Regular rate and rhythm, S1, S2 without murmur, rub or gallop. ABDOMEN: Soft, nontender, nondistended, normoactive bowel sounds, no guarding, no rebound, no hepatosplenomegaly, no masses. EXTREMITIES: 2+ pulses, warm, well-perfused, no edema. NEUROLOGICAL: Cranial nerves II through XII grossly intact. Normal speech, gait not observed. PSYCH:anxious SKIN: Warm, dry, normal turgor, no rashes or lesions noted. 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 log copper plate lithographer/ml Cancelled HCV RNA (PCR) IUs/ml Cancelled HCV RNA PCR w/Genot Rflx Cancelled Liver Fibrosis Interp Cancelled 07/16/18 07/16/18 07/17/18 20:30 22:25 05:08 WBC RBC Hgb Hct MCV MCH MCHC RDW Plt Count MPV Absolute Neuts (auto) Neutrophils % Lymphocytes % Monocytes % Eosinophils % Basophils % Nucleated RBC % PTT (Actin FS) Sodium Potassium 4.1 Chloride Carbon Dioxide Anion Gap BUN Creatinine Creat Clearance w eGFR POC Glucometer 349 116 Random Glucose Calcium Phosphorus Magnesium Troponin I 0.12 H Hep C Ab Diagnostic Hepatitis C RNA HCV RNA PCR log copper plate lithographer/ml HCV RNA (PCR) IUs/ml HCV RNA PCR w/Genot Rflx Liver Fibrosis Interp 07/17/18 07/17/18 07/17/18 06:50 06:50 06:50 WBC 8.0 RBC 2.81 L Hgb 9.4 L Hct 27.2 L MCV 96.7 H MCH 33.6 MCHC 34.8 RDW 14.8 Plt Count 303 MPV 9.0 Absolute Neuts (auto) 5.4 Neutrophils % 68.3 D Lymphocytes % 22.0 D Monocytes % 7.9 D Eosinophils % 1.0 D Basophils % 0.8 Nucleated RBC % 0 PTT (Actin FS) 38.9 H Sodium 140 Potassium 4.2 Chloride 101 Carbon Dioxide 29 Anion Gap 10 BUN 39 H Creatinine 5.1 H Creat Clearance w eGFR 8.88 POC Glucometer Random Glucose 114 H Calcium 8.7 Phosphorus 5.6 H Magnesium 2.4 Troponin I 0.13 H Hep C Ab Diagnostic Hepatitis C RNA HCV RNA PCR log copper plate lithographer/ml HCV RNA (PCR) IUs/ml HCV RNA PCR w/Genot Rflx Liver Fibrosis Interp 07/17/18 12:06 WBC RBC Hgb Hct MCV MCH MCHC RDW Plt Count MPV Absolute Neuts (auto) Neutrophils % Lymphocytes % Monocytes % Eosinophils % Basophils % Nucleated RBC % PTT (Actin FS) Sodium Potassium Chloride Carbon Dioxide Anion Gap BUN Creatinine Creat Clearance w eGFR POC Glucometer 231 Random Glucose Calcium Phosphorus Magnesium Troponin I Hep C Ab Diagnostic Hepatitis C RNA HCV RNA PCR log copper plate lithographer/ml HCV RNA (PCR) IUs/ml HCV [facility] HOSPITAL COURSE: Date of Admission:07/16/18 Date of Discharge: 07/17/18 This is a 52 year old female with h/o HTN, DM, ESRD on HD, anxiety who presented with sudden onset shortness of breath and chest pain. Chest pain described as squeezing sensation, started while watching TV. No fevers, chills or sweats. Worl up for ACS and pulmonary embolism were negative. Shortness of breath was attributed to volume overload secondary to ESRD. She received HD and symptoms improved. She was also medically treated for hyperkalemia on arrival. PLan to follow upw [facility] pulmonary for pulmonary function testing due to her current smoking history. Minutes to complete discharge: 35 Discharge Summary Reason For Visit: ACUTE KIDNEY INJURY,END STAGE RENAL FAILURE ON Current Active Problems FRANNIE (acute kidney injury) (Acute) Chest pain at rest (Acute) Hyperkalemia (Acute) Shortness of breath (Acute) Tachypnea (Acute) Condition: Fair - Instructions Diet, Activity, Other Instructions: Ms. Mckeon you have been treated for shortness of breath related to volume overload from your kidney disease. Please follow up with you inductor tester and hemodialysis regularly. We also recommend you visit a primer waterproofing machine operator due to you smoking history, while your shortness of breath can also be related to this. We advise you to quit smoking. When you are ready you can talk to your primary about options. If you experience any worsening of symptoms, please return to the emergency room. Referrals: Dennis Cordero MD [Staff Physician] - Derrek Patterson MD [Staff Physician] - Disposition: HOME - Home Medications Comprehensive Discharge Medication List: Ambulatory Orders Ammonium Lactate Cream [Lac-Hydrin 12% Cream -] 1 applic TP BID 12/14/16 Baclofen 10 mg PO HS 12/14/16 Bisacodyl [Bisacodyl -] 5 mg PO DAILY 12/14/16 Calcium Acetate 667 mg PO AC 12/14/16 Dexlansoprazole [Dexilant] 60 mg PO DAILY 12/14/16 Hydralazine HCl 100 mg PO TID 12/14/16 Melatonin 3 mg PO HS 12/14/16 Metoclopramide HCl [Reglan -] 10 mg PO TID 12/14/16 Nifedipine [Nifedipine ER] 60 mg PO DAILY 12/14/16 Quetiapine Fumarate [Seroquel -] 25 mg PO HS 12/14/16 Ramipril [Altace] 5 mg PO DAILY 12/14/16 Ranitidine [Zantac -] 150 mg PO DAILY 12/14/16 Sennosides [Senna -] 2 tab PO HS 12/14/16 Vitamin E 400 unit PO DAILY 12/14/16 Insulin (Levemir) [Levemir Vial] 20 units SQ HS #1 ml 12/16/16 Insulin (Levemir) [Levemir Vial] 35 units SQ AM #1 ml 12/16/16 This patient is new to me today: No Emergency Visit: Yes ED Registration Date: 07/16/18 Care time: The patient presented to the Emergency Department on the above date and was hospitalized for further evaluation of their emergent condition. Critical Care patient: No - Discharge Referral Referred to [facility] Med [facility].C.: No
[2018-07-17 14:52] VITALS: BP 163/69; PULSE 99; TEMP 98
[2018-07-18 04:12] LABS: HBSAG SCREEN Negative (Negative); HEP B CORE AB, TOT Negative (Negative)
== END 2018-07-17 15:50 | disposition home or self-care (01) | DRG 682 ==
LOC: JER 23:32 → JERBED 07-16 02:11 → OBSVTOIN 07-16 07:18 → J4W 07-16 13:59
PROVIDERS: ADMIT Internal Medicine; ATTEND Internal Medicine
PROC: 5A1D70Z Performance of Urinary Filtration, Intermittent, Less than 6 Hours Per Day (ICD-10-PCS; principal; 2018-07-16)
DX: I12.0 Hypertensive chronic kidney disease with stage 5 chronic kidney disease or end stage renal disease (principal); N18.6 End stage renal disease; I24.8 Other forms of acute ischemic heart disease; I16.1 Hypertensive emergency; Z99.2 Dependence on renal dialysis; E87.5 Hyperkalemia; I27.20 Pulmonary hypertension, unspecified; E11.22 Type 2 diabetes mellitus with diabetic chronic kidney disease; R06.02 Shortness of breath; E87.70 Fluid overload, unspecified; E11.42 Type 2 diabetes mellitus with diabetic polyneuropathy; R07.89 Other chest pain; D63.1 Anemia in chronic kidney disease; K21.9 Gastro-esophageal reflux disease without esophagitis; R74.0 Nonspecific elevation of levels of transaminase and lactic acid dehydrogenase [LDH]; E11.65 Type 2 diabetes mellitus with hyperglycemia
CPT/HCPCS: 36415; 36600; 71045-TC-FY; 71275-TC; 76705-TC; 80048; 80053; 82009; 82550; 82803; 82962; 82977; 83036; 83690; 83735; 84100; 84132; 84484; 85025; 85610; 85730; 86704; 86706; 86708; 86803; 87340; 87804; 93005; 93010; 93306-TC; 94640; 99285-25; G0378; J0475; J1644

== ENCOUNTER 2018-07-17 22:53 | Inpatient (IN) | payer OTHER ==
--- NOTE | 2018-07-17 23:27 | PDOC ---
Attending Attestation - HPI HPI: 07/17/18 23:43 Patient is a 52 year old female with a significant past medical history of NIDDM (15+ years), GERD, Gastroparesis, HTN, Neuropathy, Anxiety/Depression, who presents to the ED with complaints of difficulty breathing that began just prior to ED arrival. As per patient's sister, patient began to experience sudden difficulty breathing this evening while at home, prompting her to call EMS to have her brought to the ED for further evaluation. As per EMS patient was given x2 treatments of nitroglycerin, x4 baby aspirin, and 1 nebulizer treatment on route to the ED. Denies nausea, vomiting. Denies contact with sick individuals, out of state travelling. Denies dysuria, hematuria. Denies constipation, diarrhea. Allergies: None Social history: Current smoker. No illicit drugs. No alcohol. Surgical history: x 3, 2 ectopic pregnancies, Myomectomy PMD: None Nephrology: Dr. Patterson - Physicial Exam PE: 07/17/18 23:43 Admitted yesterday for shortness of breath <Cal Calle - Last Filed: 07/17/18 23:43> - Resident Resident Name: Gagandeep Eden - ED Attending Attestation I have performed the following: I have examined & evaluated the patient, The case was reviewed & discussed with the resident, I agree w/resident's findings & plan - Critical Care Time Total Critical Care Time: 75 Critical Care Statement: The care of this patient involved high complexity decision making to prevent further life threatening deterioration of the patient 's condition and/or to evaluate & treat vital organ system(s) failure or risk of failure. - Medical Decision Making 07/18/18 00:44 52-year-old female with difficulty breathing and anxiety Chest x-ray consistent with pulmonary edema that appears acute when compared to previous EKG 1 day ago Labs consistent with diabetic hyperglycemia without DKA Nitro drip and BiPAP started on arrival due to extreme respiratory distress and accessory muscle use Consultation with nephrology <Madonna Barahona - Last Filed: 07/18/18 00:58>
[2018-07-17 23:32] VITALS: BMI 33.0
[2018-07-17 23:35] LABS: BASO % 0.7 % (0-2.0); HEMATOCRIT 28.9 % (32.4-45.2); HEMOGLOBIN 9.8 GM/dL (10.7-15.3); MCH 33.2 pg (25.7-33.7); MCHC 33.9 g/dl (32.0-36.0); MEAN CELL VOLUME 97.9 fl (80-96); MEAN PLT VOLUME 9.3 fl (7.5-11.1); MONO % 7.5 % (3.8-10.2); NEUT % 83.8 % (42.8-82.8); PLATELET COUNT 321 K/MM3 (134-434); RBC 2.96 M/mm3 (3.60-5.2); RDW 14.9 % (11.6-15.6); WHITE BLOOD COUNT 9.4 K/mm3 (4.0-10.0)
[2018-07-17 23:36] LABS: ARTERIAL BLD GAS O2 SATURATION 95.8 % (95-98); ARTERIAL BLOOD GAS BASE EXCESS 0.6 meq/l (-2-2); ARTERIAL BLOOD GAS PCO2 38.8 mmHg (35-45); ARTERIAL BLOOD GAS PO2 98.1 mmHg (80-105); ARTERIAL BLOOD GAS pH 7.42 (7.35-7.45)
[2018-07-17] MEDS ORDERED: NITROGLYCERIN 50MG/D5W 250ML 50 MG/250 ML ML IVPB SCH (23:45)
[2018-07-17] MEDS ORDERED: FUROSEMIDE 40 MG/4 ML INJECTABLE VIAL IVPUSH ONE (23:59)
[2018-07-18] MEDS ORDERED: INSULIN REGULAR HUMAN 100 UNITS/ML *VIAL SQ ONE (00:03)
[2018-07-18 00:18] LABS: ALBUMIN 3.5 g/dl (3.4-5.0); ALK PHOS 390 U/L (45-117); ANION GAP 14 MMOL/L (8-16); BILIRUBIN,TOTAL 0.4 mg/dL (0.2-1); BLOOD UREA NITROGEN 57 mg/dL (7-18); CALCIUM 8.9 mg/dL (8.5-10.1); CHLORIDE 97 mmol/L (98-107); CO2 24 mmol/L (21-32); CREATININE 6.3 mg/dL (0.55-1.3); MAGNESIUM 2.3 mg/dL (1.8-2.4); N-TERMINAL BNP 40466.7 pg/ml (5-125); POTASSIUM 4.6 mmol/L (3.5-5.1); SGOT/AST 27 U/L (15-37); SGPT/ALT 73 U/L (13-61); SODIUM 135 mmol/L (136-145); TOT PROT 7.8 g/dl (6.4-8.2)
[2018-07-18 00:20] LABS: GLUCOSE,RANDOM 482 mg/dL (74-106)
[2018-07-18] MEDS ORDERED: FUROSEMIDE 40 MG/4 ML INJECTABLE VIAL ONE (00:20)
[2018-07-18] MEDS ORDERED: INSULIN REGULAR HUMAN 100 UNITS/ML *VIAL ONE (00:21)
[2018-07-18] MEDS ORDERED: SODIUM CHLORIDE 250 ML IV PRN ×2 (00:22→10:01)
[2018-07-18] MEDS ORDERED: HEPARIN NA (PORCINE) 5,000 UNITS/ML 1ML VIAL IVPUSH ONE ×2 (00:22→10:01)
[2018-07-18] MEDS ORDERED: hydrALAZINE HCL 50 MG TABLET (FP) PO ONE ×3 (00:28→04:46)
[2018-07-18 00:34] LABS: INR 0.97 (0.83-1.09); PROTHROMBIN TIME (PATIENT) 11.4 SEC (9.7-13.0)
[2018-07-18 00:37] LABS: ACTIVATED PTT 31.2 SECONDS (25.2-36.5)
--- NOTE | 2018-07-18 00:43 | PDOC ---
History of Present Illness - General Chief Complaint: Shortness of Breath Stated Complaint: DIFF. BREATHING Time Seen by Provider: 07/17/18 23:27 History Source: Patient Exam Limitations: Clinical Condition - History of Present Illness Initial Comments: 07/18/18 00:44 Patient is a 52F with history of IDDM, HTN, HLD, anxiety, depression, ESRD (MWF , last done yesterday in hospital) here today with respiratory distress. Patient arrived via EMS in tripod position, extremely tachypneic. Patient was given nitro 1, aspirin x4, and a duoneb in the field. CPAP was failed. Patient was able to speak single word sentences. Patient was discharged today after extensive workup including ACS rule out and negative CTA. Patient reports last taking her medicine today in the hospital, nothing since getting home. Reports chest pain. 07/18/18 00:49 Past History - Past Medical History Allergies/Adverse Reactions: Allergies Allergy/AdvReac Type Severity Reaction Status Date / Time No Known Allergies Allergy Verified 07/17/18 23:20 Home Medications: Ambulatory Orders Ammonium Lactate Cream [Lac-Hydrin 12% Cream -] 1 applic TP BID 12/14/16 Baclofen 10 mg PO HS 12/14/16 Bisacodyl [Bisacodyl -] 5 mg PO DAILY 12/14/16 Calcium Acetate 667 mg PO AC 12/14/16 Dexlansoprazole [Dexilant] 60 mg PO DAILY 12/14/16 Hydralazine HCl 100 mg PO TID 12/14/16 Melatonin 3 mg PO HS 12/14/16 Metoclopramide HCl [Reglan -] 10 mg PO TID 12/14/16 Nifedipine [Nifedipine ER] 60 mg PO DAILY 12/14/16 Quetiapine Fumarate [Seroquel -] 25 mg PO HS 12/14/16 Ramipril [Altace] 5 mg PO DAILY 12/14/16 Ranitidine [Zantac -] 150 mg PO DAILY 12/14/16 Sennosides [Senna -] 2 tab PO HS 12/14/16 Vitamin E 400 unit PO DAILY 12/14/16 Insulin (Levemir) [Levemir Vial] 20 units SQ HS #1 ml 12/16/16 Insulin (Levemir) [Levemir Vial] 35 units SQ AM #1 ml 08/25/17 Anemia: Yes Asthma: Yes COPD: Yes (asthma) Diabetes: Yes Dialysis: Yes ([facility]) GI Disorders: Yes (gerd gastroparesis) Disorders: Yes (HEMODIALYSIS) HTN: Yes Hypercholesterolemia: Yes - Surgical History Orthopedic Surgery: Yes (r hand sx for broken r thumb) - Immunization History Immunization Up to Date: Yes - Suicide/Smoking/Psychosocial Hx Smoking Status: No Smoking History: Never smoked Have you smoked in the past 12 months: No Number of Cigarettes Smoked Daily: 6 Cigars Per Day: 0 Information on smoking cessation initiated: No 'Breaking Loose' booklet given: 07/16/18 Hx Alcohol Use: No Drug/Substance Use Hx: No Substance Use Type: None Hx Substance Use Treatment: No Review of Systems - Review of Systems Able to Perform ROS?: No (2/2 clinical condition) *Physical Exam - Vital Signs Last Vital Signs Temp Pulse Resp BP Pulse Ox 98.8 F 105 H 20 184/88 H 98 07/17/18 22:53 07/18/18 00:34 07/18/18 00:34 07/18/18 00:34 07/18/18 00:34 - Physical Exam Comments: 07/18/18 00:47 GENERAL: Awake, alert, in tripod position, ill-appearing HEAD: No signs of trauma, normocephalic, atraumatic EYES: PERRLA, EOMI, sclera anicteric, conjunctiva clear ENT: Auricles normal inspection, hearing grossly normal, nares patent, oropharynx clear without exudates. Moist mucosa NECK: Normal ROM, supple, no lymphadenopathy, JVD, or masses LUNGS: In distress, coarse breath sounds bilaterally, equal bilaterally HEART: Tachycardic ABDOMEN: Soft, nontender, normoactive bowel sounds. No guarding, no rebound. No masses EXTREMITIES: Normal inspection, Normal range of motion, 2+ edema. No clubbing or cyanosis. NEUROLOGICAL: Cranial nerves II through XII grossly intact. Normal speech, no focal sensorimotor deficits SKIN: Warm, Dry, normal turgor, no rashes or lesions noted. ED Treatment Course - LABORATORY CBC & Chemistry Diagram: 07/17/18 23:21 07/17/18 23:21 - ADDITIONAL ORDERS Additional order review: Laboratory Results 07/17/18 07/17/18 07/17/18 23:30 23:21 23:21 PT with INR INR PTT (Actin FS) Anticoagulation Therapy Puncture Site ABG pH ABG pCO2 at Pt Temp ABG pO2 at Pt Temp ABG HCO3 ABG O2 Sat (Measured) ABG O2 Content ABG Base Excess Jono Test O2 Delivery Device Oxygen Flow Rate Vent Mode Vent Rate Mechanical Rate Pressure Support Vent Sodium Potassium Chloride Carbon Dioxide Anion Gap BUN Creatinine Creat Clearance w eGFR Random Glucose Lactic Acid 3.1 H* Calcium Magnesium Total Bilirubin AST ALT Alkaline Phosphatase Creatine Kinase 118 Troponin I 0.14 H B-Natriuretic Peptide Total Protein Albumin Acetone, Qual Negative L 07/17/18 07/17/18 07/17/18 23:21 23:21 23:21 PT with INR 11.40 INR 0.97 PTT (Actin FS) 31.2 Anticoagulation Therapy No Result Required. Puncture Site No Result Required. ABG pH 7.42 ABG pCO2 at Pt Temp 38.8 ABG pO2 at Pt Temp 98.1 ABG HCO3 24.6 ABG O2 Sat (Measured) 95.8 ABG O2 Content 11.2 L ABG Base Excess 0.6 Jono Test No Result Required. O2 Delivery Device No Result Required. Oxygen Flow Rate No Result Required. Vent Mode No Result Required. Vent Rate No Result Required. Mechanical Rate No Result Required. Pressure Support Vent No Result Required. Sodium 135 L Potassium 4.6 Chloride 97 L Carbon Dioxide 24 Anion Gap 14 BUN 57 H Creatinine 6.3 H Creat Clearance w eGFR 6.96 Random Glucose 482 H* Lactic Acid Calcium 8.9 Magnesium 2.3 Total Bilirubin 0.4 AST 27 ALT 73 H Alkaline Phosphatase 390 H Creatine Kinase Troponin I B-Natriuretic Peptide 61509.7 H Total Protein 7.8 Albumin 3.5 Acetone, Qual 07/17/18 23:21 RBC 2.96 L MCV 97.9 H MCHC 33.9 RDW 14.9 MPV 9.3 Neutrophils % 83.8 H D Lymphocytes % 8.0 D Monocytes % 7.5 Eosinophils % 0.0 D Basophils % 0.7 Medical Decision Making - Medical Decision Making 07/18/18 00:49 Patient is 52F with history of IDDM, HTN, HLD, anxiety, depression, ESRD (MWF, last done yesterday in hospital here today with respiratory distress. Vitals notable for tachycardia, tachypnea, hypertension. Exam notable for coarse breath sounds, B-lines on POCUS, diaphoresis. Intubation considered for respiratory distress, bipap attempted first and patient stabilized. Started on nitro drip, goal BP with systolics in 150s-160s, titrated to 40mcg/min. Patient improving, broad workup initiated. EKG shows sinus tachycardia with rate fo 107. No st elevations. Normal axis. Normal intervals. Diffuse small ST depressions. Suspect demand related. CXR shows pulmonary edema. CBC shows anemia, baseline. CMP shows hyperglycemia, given 10U sq insulin Trop at baseline BNP 40K Lactate 3.1, do not suspect infection at this time. Fluid overload vs cardiac process most likely. Dr Arredondo contacted, will dialyze patient once ICU bed available. Will give home med hydralazine that was missed today in attempt to wean off nitro drip. Given 100mg lasix. Will admit to ICU. 07/18/18 02:[address] Rivera and Dr Russ, accepted to ICU. *DC/Admit/Observation/Transfer Diagnosis at time of Disposition: Acute pulmonary edema - Discharge Dispostion Condition at time of disposition: Guarded Decision to Admit order: Yes - Referrals - Patient Instructions - Post Discharge Activity
[2018-07-18] MEDS ORDERED: hydrALAZINE HCL 25 MG TABLET (FP) ONE ×3 (01:02→06:51)
[2018-07-18] MEDS ORDERED: FAMOTIDINE 20 MG/50 ML IVPB 20 MG/50 ML MG IVPB ONE ×2 (01:16→01:19)
[2018-07-18] MEDS ORDERED: ACETAMINOPHEN 1000 MG/100 ML VIAL (NON FORMULARY) IVPB ONE (01:16)
[2018-07-18] MEDS ORDERED: ACETAMINOPHEN INJECTION 100 ML IVPB ONE (01:19)
--- NOTE | 2018-07-18 02:19 | HP ---
CHIEF COMPLAINT: Shortness of Breath PCP: See Last Note HISTORY OF PRESENT ILLNESS: Pt. is 52 y.o. F presenting with acute onset shortness of breath that started at 9pm last night. Pt. states that she was sitting down watching TV when it started. Pt. believes she had a panic attack and that this caused her to feel short of breath. Pt. denies taking any of her medications after discharge. Pt. states that she feels the same way that she felt during her last hospital admission. Pt. endorses nausea, abdominal pain, constipation since Monday and chest pain(reproducible on palpation). Pt. denies vomiting, headache, blurry vision, blood in the stool, or numbness/tingling in extremities. Pt. endorses chest pain that is similar to the pain yesterday. Recent Travel: No PAST MEDICAL HISTORY: NIDDM (15+ years), GERD, Gastroparesis, HTN, Neuropathy, Anxiety/Depression PAST SURGICAL HISTORY: x 3, 2 ectopic pregnancies, Myomectomy Social History: Smokin/2 PPD since Alcohol: denies Drugs: denies Family History: Grand father DM, Brother-bone cancer, Grand father-colon cancer ( @ 90) Allergies No Known Allergies Allergy (Verified 07/17/18 23:20) HOME MEDICATIONS: Home Medications Medication Instructions Recorded Ammonium Lactate Cream [Lac-Hydrin 1 applic TP BID 12/14/16 12% Cream -] Baclofen 10 mg PO HS 12/14/16 Bisacodyl [Bisacodyl -] 5 mg PO DAILY 12/14/16 Calcium Acetate 667 mg PO AC 12/14/16 Dexlansoprazole [Dexilant] 60 mg PO DAILY 12/14/16 Hydralazine HCl 100 mg PO TID 12/14/16 Melatonin 3 mg PO HS 12/14/16 Metoclopramide HCl [Reglan -] 10 mg PO TID 12/14/16 Nifedipine [Nifedipine ER] 60 mg PO DAILY 12/14/16 Quetiapine Fumarate [Seroquel -] 25 mg PO HS 12/14/16 Ramipril [Altace] 5 mg PO DAILY 12/14/16 Ranitidine [Zantac -] 150 mg PO DAILY 12/14/16 Sennosides [Senna -] 2 tab PO HS 12/14/16 Vitamin E 400 unit PO DAILY 12/14/16 Insulin (Levemir) [Levemir Vial] 20 units SQ HS #1 ml 12/16/16 Insulin (Levemir) [Levemir Vial] 35 units SQ AM #1 ml 12/16/16 REVIEW OF SYSTEMS CONSTITUTIONAL: generalized weakness Absent: fever, chills, diaphoresis, malaise, loss of appetite, weight change HEENT: Absent: rhinorrhea, nasal congestion, throat pain, throat swelling, difficulty swallowing, mouth swelling, ear pain, eye pain, visual changes CARDIOVASCULAR: Absent: chest pain, syncope, palpitations, irregular heart rate, lightheadedness , peripheral edema RESPIRATORY: shortness of breath, dyspnea with exertion, orthopnea Absent: cough, wheezing, stridor, hemoptysis GASTROINTESTINAL: abdominal pain, constipation Absent: abdominal distension, nausea, vomiting, diarrhea, melena, hematochezia GENITOURINARY: Absent: dysuria, frequency, urgency, hesitancy, hematuria, flank pain, genital pain MUSCULOSKELETAL: Absent: myalgia, arthralgia, joint swelling, back pain, neck pain SKIN: Absent: rash, itching, pallor HEMATOLOGIC/IMMUNOLOGIC: Absent: easy bleeding, easy bruising, lymphadenopathy, frequent infections ENDOCRINE: Absent: unexplained weight gain, unexplained weight loss, heat intolerance, cold intolerance NEUROLOGIC: Absent: headache, focal weakness or paresthesias, dizziness, unsteady gait, seizure, mental status changes, bladder or bowel incontinence PSYCHIATRIC: anxiety Absent: , depression, suicidal or homicidal ideation, hallucinations. PHYSICAL EXAMINATION Vital Signs - 24 hr 07/17/18 07/17/18 07/17/18 22:53 23:45 23:47 Temperature 98.8 F Pulse Rate 117 H 107 H Pulse Rate [ Left] Respiratory 32 H Rate Blood Pressure 187/100 H Blood Pressure [Right Arm] O2 Sat by Pulse 99 98 97 Oximetry (%) 07/18/18 07/18/18 00:34 01:46 Temperature Pulse Rate Pulse Rate [ 105 H 104 H Left] Respiratory 20 20 Rate Blood Pressure Blood Pressure 184/88 H 198/103 H [Right Arm] O2 Sat by Pulse 98 98 Oximetry (%) GENERAL: Awake, alert, and fully oriented, in mild distress. HEAD: Normal with no signs of trauma. EYES: Pupils equal, round and reactive to light, extraocular movements intact, sclera anicteric, conjunctiva clear. No lid lag. EARS, NOSE, THROAT: Ears normal, nares patent, oropharynx clear without exudates. Moist mucous membranes. NECK: Normal range of motion, supple without lymphadenopathy, JVD, or masses. LUNGS: Diffuse crackles and wheezing, No accessory muscle use. HEART: Regular rate and rhythm, normal S1 and S2 without murmur, rub or gallop. ABDOMEN: Soft, diffuse tenderness to palpation, not distended, normoactive bowel sounds MUSCULOSKELETAL: Normal range of motion at all joints. No bony deformities or tenderness. No CVA tenderness. UPPER EXTREMITIES: 2+ radial pulses, warm, well-perfused. No cyanosis. No clubbing. No peripheral edema. LOWER EXTREMITIES: 2+ dorsal pedal, pulses, warm, well-perfused. No calf tenderness. No peripheral edema. NEUROLOGICAL: Labored speech. PSYCHIATRIC: Anxiety. Good eye contact. Poor Insight. SKIN: Warm, dry, normal turgor, normal capillary refill. Laboratory Results - last 24 hr 07/17/18 07/17/18 07/17/18 23:21 23:21 23:21 WBC 9.4 RBC 2.96 L Hgb 9.8 L Hct 28.9 L MCV 97.9 H MCH 33.2 MCHC 33.9 RDW 14.9 Plt Count 321 MPV 9.3 Absolute Neuts (auto) 7.8 Neutrophils % 83.8 H D Lymphocytes % 8.0 D Monocytes % 7.5 Eosinophils % 0.0 D Basophils % 0.7 Nucleated RBC % 0 PT with INR 11.40 INR 0.97 PTT (Actin FS) 31.2 Anticoagulation Therapy No Result Required. Puncture Site No Result Required. ABG pH 7.42 ABG pCO2 at Pt Temp 38.8 ABG pO2 at Pt Temp 98.1 ABG HCO3 24.6 ABG O2 Sat (Measured) 95.8 ABG O2 Content 11.2 L ABG Base Excess 0.6 Jono Test No Result Required. O2 Delivery Device No Result Required. Oxygen Flow Rate No Result Required. Vent Mode No Result Required. Vent Rate No Result Required. Mechanical Rate No Result Required. Pressure Support Vent No Result Required. Sodium Potassium Chloride Carbon Dioxide Anion Gap BUN Creatinine Creat Clearance w eGFR Random Glucose Lactic Acid Calcium Magnesium Total Bilirubin AST ALT Alkaline Phosphatase Creatine Kinase Troponin I B-Natriuretic Peptide Total Protein Albumin Acetone, Qual 07/17/18 07/17/18 07/17/18 23:21 23:21 23:21 WBC RBC Hgb Hct MCV MCH MCHC RDW Plt Count MPV Absolute Neuts (auto) Neutrophils % Lymphocytes % Monocytes % Eosinophils % Basophils % Nucleated RBC % PT with INR INR PTT (Actin FS) Anticoagulation Therapy Puncture Site ABG pH ABG pCO2 at Pt Temp ABG pO2 at Pt Temp ABG HCO3 ABG O2 Sat (Measured) ABG O2 Content ABG Base Excess Jono Test O2 Delivery Device Oxygen Flow Rate Vent Mode Vent Rate Mechanical Rate Pressure Support Vent Sodium 135 L Potassium 4.6 Chloride 97 L Carbon Dioxide 24 Anion Gap 14 BUN 57 H Creatinine 6.3 H Creat Clearance w eGFR 6.96 Random Glucose 482 H* Lactic Acid 3.1 H* Calcium 8.9 Magnesium 2.3 Total Bilirubin 0.4 AST 27 ALT 73 H Alkaline Phosphatase 390 H Creatine Kinase 118 Troponin I 0.14 H B-Natriuretic Peptide 44340.7 H Total Protein 7.8 Albumin 3.5 Acetone, Qual 07/17/18 23:30 WBC RBC Hgb Hct MCV MCH MCHC RDW Plt Count MPV Absolute Neuts (auto) Neutrophils % Lymphocytes % Monocytes % Eosinophils % Basophils % Nucleated RBC % PT with INR INR PTT (Actin FS) Anticoagulation Therapy Puncture Site ABG pH ABG pCO2 at Pt Temp ABG pO2 at Pt Temp ABG HCO3 ABG O2 Sat (Measured) ABG O2 Content ABG Base Excess Jono Test O2 Delivery Device Oxygen Flow Rate Vent Mode Vent Rate Mechanical Rate Pressure Support Vent Sodium Potassium Chloride Carbon Dioxide Anion Gap BUN Creatinine Creat Clearance w eGFR Random Glucose Lactic Acid Calcium Magnesium Total Bilirubin AST ALT Alkaline Phosphatase Creatine Kinase Troponin I B-Natriuretic Peptide Total Protein Albumin Acetone, Qual Negative L ASSESSMENT/PLAN: Pt. is a 52 y.o. F w/ NIDDM(15+ years), GERD, Gastroparesis, HTN, Neuropathy, Anxiety/Depression presenting for sudden onset shortness of breath that started last night ~9pm. #Shortness of Breath 2/2 pulmonary edema 2/2 hypertensive emergency Consult w/ Dr. Arredondo (Nephrology) HD MWF BNP: 40,466.7 CXR: pulmonary edema ABG: pH: 7.42, pCO2: 38.8, HCO3: 24.6 c/w home medications, consider nicardipine drip if Pt. still hypertensive despite AM meds early s/p BiPAP #Chest Tightness Echo(07/17/18): mild concentric LVH, EF 65-70%, pulm. artery pressure 61mmHg, mild-mod MR +TR, LA mildly dilated, pulmonic regurg given Nitroglycerin drip in ED, has stopped Trop 0.14, trend (likely elevated d/t decreased clearance given ESRD) EKG: unremarkable unchanged from prior #ESRD on HD HD MWF Nephrology consult c/w home meds #NIDDM now IDDM- uncontrolled ISS TIDAC BGM TIDAC BGM Q1H Last A1c: 6.8%(07/17/18) c/w Reglan #GERD c/w home meds #FEN encourage PO intake monitor electrolytes and replete as needed, for HD on Monday Na/cholesterol restricted diet #DVT Ppx. Heparin SQ Visit type - Emergency Visit Emergency Visit: Yes ED Registration Date: 07/18/18 Care time: The patient presented to the Emergency Department on the above date and was hospitalized for further evaluation of their emergent condition. - New Patient This patient is new to me today: Yes Date on this admission: 07/18/18 - Critical Care Critical Care patient: No
--- NOTE | 2018-07-18 04:09 | PN ---
Teaching Attending Note Name of Resident: Deric Rivera ATTENDING PHYSICIAN STATEMENT I saw and evaluated the patient. I reviewed the resident's note and discussed the case with the resident. I agree with the resident's findings and plan as documented. SUBJECTIVE: Seen and examined; please refer to resident note for further historical information. Briefly, this is a 52 y/o female who I just admitted 24 hours ago. She was treated appropriately as per DCS and she was then sent home. She got AM medications in the hospital then didn't take any else including insulin for the rest of the day. At 9PM she experienced severe anxiety and had difficulty breathing. She was taken in by EMS and found to have SBP ~200 and glucose in 400s. She was SOB was placed on NTG drip and given hydralazine by ER. They called nephrology who recommended lasix. She was weaned off NC; giving AM meds early. She is due for HD. Monitoring on telemetry. Per DCS: "This is a 52 year old female with h/o HTN, DM, ESRD on HD, anxiety who presented with sudden onset shortness of breath and chest pain. Chest pain described as squeezing sensation, started while watching TV. No fevers, chills or sweats. Worl up for ACS and pulmonary embolism were negative. Shortness of breath was attributed to volume overload secondary to ESRD. She received HD and symptoms improved. She was also medically treated for hyperkalemia on arrival. PLan to follow upw ith pulmonary for pulmonary function testing due to her current smoking history.' 10 sys ROS done and negative aside from HPI PMH, PSH, Family hx, Social hx reviewed Medication list reviewed; pending reconciliation Home Medications Medication Instructions Recorded Ammonium Lactate Cream [Lac-Hydrin 1 applic TP BID 12/14/16 12% Cream -] Baclofen 10 mg PO HS 12/14/16 Bisacodyl [Bisacodyl -] 5 mg PO DAILY 12/14/16 Calcium Acetate 667 mg PO AC 12/14/16 Dexlansoprazole [Dexilant] 60 mg PO DAILY 12/14/16 Hydralazine HCl 100 mg PO TID 12/14/16 Melatonin 3 mg PO HS 12/14/16 Metoclopramide HCl [Reglan -] 10 mg PO TID 12/14/16 Nifedipine [Nifedipine ER] 60 mg PO DAILY 12/14/16 Quetiapine Fumarate [Seroquel -] 25 mg PO HS 12/14/16 Ramipril [Altace] 5 mg PO DAILY 12/14/16 Ranitidine [Zantac -] 150 mg PO DAILY 12/14/16 Sennosides [Senna -] 2 tab PO HS 12/14/16 Vitamin E 400 unit PO DAILY 12/14/16 Insulin (Levemir) [Levemir Vial] 20 units SQ HS #1 ml 12/16/16 Insulin (Levemir) [Levemir Vial] 35 units SQ AM #1 ml 12/16/16 OBJECTIVE: VS, labs, imaging reviewed NAD, AAO, resting comfortably in bed NC AT EOMI PERRLA RRR to tachycardic, s1/2, no new mgr Lungs with crackles, w/ sym exp NT ND +BS CN2-12 wnl, no fnd Normal mood, appropriate behavior ASSESSMENT AND PLAN: Patient presents after not taking her medications at home after DC; she is hyperglycemic and in hypertensive emergency with concern for flash pulm edema but completely normal ABG. Did endorse panic attack. 1) Hypertensive Emergency -Giving home meds; ER started a nitro drip which we will wean off. Giving AM dose now; if BP improved can avoid ICU admit (was called by ER). -Monitor for improvement; yesterday's echo noted. Troponin 0.01 up from yesterday with worsening Cr in the setting of ESRD. -Should she decompensate and need bipap again or have uncontrolled BP despite PO tx will likely need to be brought to unit on nicardipine drip and have aggressive BP med adjustments -Monitor tele; PRN hydralazine. Dr. Arredondo to see. 2) Pulmonary Edema -Fluid removal with HD; got lasix in ER -ABG normal; monitor. She is now weaned off BiPap and is saturating well on NC 3) DM with hyperglycemia -Q1h fsg until improved from 400; she didn't take her home insulin after leaving hospital. Place on SSI and continue home dose. 4) ESRD on HD -Nephrology to manage; appreciate expert input. 5) Transaminitis -No new symptoms; followup CMP as OP Full Code
[2018-07-18] MEDS ORDERED: NIFEdipine E.R 60 MG TABLET (UD) PO ONE (04:47)
[2018-07-18] MEDS ORDERED: NIFEdipine E.R. 30 MG TABLET (FP) ONE (05:01)
[2018-07-18] MEDS ORDERED: hydrALAZINE HCL 50 MG TABLET (FP) PO SCH ×2 (06:00→14:00)
[2018-07-18] MEDS ORDERED: HEPARIN NA (PORCINE) 5,000 UNITS/ML 1ML VIAL SQ SCH (06:00)
[2018-07-18 06:13] LABS: HEMOGLOBIN 9.1 GM/dL (10.7-15.3); MCH 32.5 pg (25.7-33.7); MCHC 33.8 g/dl (32.0-36.0); MEAN PLT VOLUME 8.9 fl (7.5-11.1); PLATELET COUNT 283 K/MM3 (134-434); RBC 2.82 M/mm3 (3.60-5.2); RDW 14.7 % (11.6-15.6); WHITE BLOOD COUNT 9.1 K/mm3 (4.0-10.0)
[2018-07-18 06:24] LABS: ANION GAP 10 MMOL/L (8-16); BLOOD UREA NITROGEN 63 mg/dL (7-18); CALCIUM 9.1 mg/dL (8.5-10.1); CHLORIDE 100 mmol/L (98-107); CO2 28 mmol/L (21-32); CREATININE 6.3 mg/dL (0.55-1.3); GLUCOSE,RANDOM 197 mg/dL (74-106); MAGNESIUM 2.5 mg/dL (1.8-2.4); PHOSPHOROUS 6.2 mg/dL (2.5-4.9); POTASSIUM 4.2 mmol/L (3.5-5.1); SODIUM 137 mmol/L (136-145)
[2018-07-18] MEDS ORDERED: INSULIN SLIDING SCALE (NOVOLOG) 1 VIAL SQ SCH ×3 (07:00→11:00)
[2018-07-18] MEDS ORDERED: METOCLOPRAMIDE HCL 10 MG TABLET (FP) PO SCH (07:00)
[2018-07-18] MEDS ORDERED: NICARDIPINE 25 MG in DEXTROSE 5%-WATER - 240 ML IVPB SCH (07:00)
[2018-07-18] MEDS ORDERED: METOCLOPRAMIDE HCL 10 MG TABLET (FP) PO ONE (07:20)
[2018-07-18] MEDS ORDERED: CALCIUM ACETATE 667 MG CAPSULE (FP) PO SCH (08:00)
--- NOTE | 2018-07-18 08:11 | CONSULT ---
Consultation: REQUESTING PROVIDER: Dr. Hernandez CONSULT REQUEST: We have been asked to medically evaluate this patient for hypertensive emergency. HISTORY OF PRESENT ILLNESS: Patient is a 52 year old female with a PMHx of HTN, NIDDMII with neuropathy and gastroparesis, HLD, ESRD on dialysis, GERD, anxiety and depression who presented last night for acute onset of shortness of breath after being discharged from this hospital yesterday for volume overload secondary to ESRD. Patient received dialysis with improved symptoms and discharged. Patient last night returned due to shortness of breath and admitted to not taking any of her medications yesterday. States she was forced to come back to the hospital by her sister for further evaluation. Patient however denied chest pain, acute vision changes, abdominal pain, loss of consciousness. Patient did not provide any further history as she was shouting and threatening to leave AMA. REVIEW OF SYSTEMS: CONSTITUTIONAL: Absent: fever, chills, diaphoresis, generalized weakness, malaise, loss of appetite, weight change HEENT: Absent: rhinorrhea, nasal congestion, throat pain, throat swelling, difficulty swallowing, mouth swelling, ear pain, eye pain, visual changes CARDIOVASCULAR: Absent: chest pain, syncope, palpitations, irregular heart rate, lightheadedness , peripheral edema RESPIRATORY: shortness of breath, dyspnea with exertion, orthopnea Absent: cough, wheezing, stridor, hemoptysis GASTROINTESTINAL: Absent: abdominal pain, abdominal distension, nausea, vomiting, diarrhea, constipation, melena, hematochezia GENITOURINARY: Absent: dysuria, frequency, urgency, hesitancy, hematuria, flank pain, genital pain MUSCULOSKELETAL: Absent: myalgia, arthralgia, joint swelling, back pain, neck pain SKIN: Absent: rash, itching, pallor HEMATOLOGIC/IMMUNOLOGIC: Absent: easy bleeding, easy bruising, lymphadenopathy, frequent infections ENDOCRINE: Absent: unexplained weight gain, unexplained weight loss, heat intolerance, cold intolerance NEUROLOGIC: Absent: headache, focal weakness or paresthesias, dizziness, unsteady gait, seizure, mental status changes, bladder or bowel incontinence PSYCHIATRIC: Absent: anxiety, depression, suicidal or homicidal ideation, hallucinations. PHYSICAL EXAMINATION Vital Signs 07/18/18 07/18/18 06:30 06:49 Temperature Pulse Rate Pulse Rate [ 106 H Left] Respiratory 20 Rate Blood Pressure Blood Pressure 215/95 H [Right Arm] O2 Sat by Pulse 97 100 Oximetry (%) GENERAL: Awake, alert, anxious, and fully oriented HEAD: Normal with no signs of trauma. EYES: Sclera anicteric, conjunctiva clear. EARS, NOSE, THROAT: Unable to assess as patient has Bipap on LUNGS: Crackles throughout lung bases L>R. On Bipap HEART: Regular rate and rhythm, normal S1 and S2 without murmur, rub or gallop. ABDOMEN: Soft, nontender, not distended, normoactive bowel sounds, no guarding, no rebound, no masses. MUSCULOSKELETAL: Normal range of motion at all joints. No bony deformities or tenderness. No CVA tenderness. EXTREMITIES: No peripheral edema. NEUROLOGICAL: Normal speech. No facial droop. PSYCHIATRIC: Anxious, shouting at the staff Laboratory Results 07/18/18 05:25 07/18/18 05:25 07/17/18 07/17/18 07/18/18 23:21 23:21 05:25 Phosphorus 6.2 H Magnesium 2.5 H AST 27 ALT 73 H Alkaline Phosphatase 390 H Troponin I 0.14 H Active Medications Generic Name Dose Route Start Last Admin Trade Name Freq PRN Reason Stop Dose Admin Bisacodyl 5 mg 07/18/18 10:00 Dulcolax - PO DAILY [facility] Calcium Acetate 667 mg 07/18/18 08:00 Phoslo - PO TIDCM VASQUEZ Epoetin Jaya 4,000 unit 07/18/18 00:22 Epogen - IVPUSH 07/18/18 00:23 ONCE ONE Heparin Sodium (Porcine) 1,000 unit 07/18/18 00:22 Heparin - IVPUSH 07/18/18 00:23 ONCE ONE Heparin Sodium (Porcine) 500 unit 07/18/18 00:30 Heparin - IVPUSH 07/18/18 02:31 Q1H VASQUEZ Heparin Sodium (Porcine) 5,000 unit 07/18/18 06:00 07/18/18 07:05 Heparin - SQ 5,000 unit TID VASQUEZ Administration Hydralazine HCl 100 mg 07/18/18 06:00 07/18/18 07:05 Apresoline - PO 100 mg TID VASQUEZ Administration Sodium Chloride 250 mls @ 3,000 mls/hr 07/18/18 00:22 Normal Saline - IV 07/19/18 00:22 PRN PRN Hypotension during Dialysis Nicardipine HCl 25 mg/ 250 mls @ 25 mls/hr 07/18/18 07:00 Dextrose IVPB TITR VASQUEZ Protocol 2.5 MG/HR Insulin Aspart 1 vial 07/18/18 07:00 07/18/18 07:06 Novolog Vial Sliding Scale - SQ Not Given TIDAC [facility] Protocol Lactic Acid 1 applic 07/18/18 10:00 Lac-Hydrin 12 TP BID VASQUEZ Melatonin 3 mg 07/18/18 22:00 Melatonin PO HS VASQUEZ Metoclopramide HCl 10 mg 07/18/18 07:00 07/18/18 07:15 Reglan - PO 10 mg TIDAC [facility] Administration Pantoprazole Sodium 40 mg 07/18/18 10:00 Protonix - PO DAILY [facility] Quetiapine Fumarate 25 mg 07/18/18 22:00 Seroquel - PO HS VASQUEZ Ramipril 5 mg 07/18/18 10:00 Altace - PO DAILY [facility] Ranitidine HCl 150 mg 07/18/18 10:00 Zantac - PO DAILY [facility] Senna 2 tab 07/18/18 22:00 Senna - PO HS [facility] Vitamin E 400 unit 07/18/18 10:00 Vitamin E - PO DAILY [facility] ASSESSMENT/PLAN: Patient is a 52 year old female who presented for acute shortness of breath and was found to have HTN emergency with volume overload, requiring dialysis. Patient admitted for further monitoring and management. Acute Onset of Shortness of Breath HTN Emergency ESRD on HD Volume Overload +Troponins likely Demand Ischemia Pulmonary HTN NIDDMII Gastroparesis Peripheral Neuropathy Anemia of Chronic Disease -Patient scheduled to have dialysis every M,, at 0530. Presents for shortness of breath likely secondary to volume overload, requiring dialysis. Dialysis set ordered, as per renal -Nicardipine drip ordered but patient pulled IV and refused Nicardipine. On my examination, patient's BP was 170's/80's. -Patient currently on Bipap saturating 100% -Keep Spo2 >90% -Patient may be monitored on Telemetry as she is tolerating bipap and saturating at 100%. Will need dialysis to remove excess volume, and will likely improve shortness of breath. Patient also not requiring Nicardipine drip for BP after taking her morning anti-htn medications. If patient desaturates or decompensates, she may be transferred to the ICU Dispo: We will continue to follow the patient. Thank you for this consultative opportunity. Visit type - Emergency Visit Emergency Visit: Yes ED Registration Date: 07/18/18 Care time: The patient presented to the Emergency Department on the above date and was hospitalized for further evaluation of their emergent condition. - New Patient This patient is new to me today: Yes Date on this admission: 07/18/18 - Critical Care Critical Care patient: No
[2018-07-18] MEDS ORDERED: ALBUTEROL SO4 0.083% IH SOL 2.5 MG/3 ML VIAL.NEB. NEB PRN (08:16)
--- NOTE | 2018-07-18 09:35 | EKG ---
Test Reason : Blood Pressure : / mmHG Vent. Rate : 107 BPM Atrial Rate : 107 BPM P-R Int : 140 ms QRS Dur : 086 ms QT Int : 358 ms P-R-T Axes : 055 018 063 degrees QTc Int : 477 ms POOR DATA QUALITY, INTERPRETATION MAY BE ADVERSELY AFFECTED SINUS TACHYCARDIA POSSIBLE LEFT ATRIAL ENLARGEMENT NONSPECIFIC ST ABNORMALITY ABNORMAL ECG WHEN COMPARED WITH ECG OF 16-JUL-2018 04:27, NONSPECIFIC T WAVE ABNORMALITY NOW EVIDENT IN LATERAL LEADS Confirmed by PEE BARNETT, DENISSE ([id number]) on 07/18/2018 9:34:41 AM Referred By: Confirmed By:DENISSE GLASGOW MD
--- NOTE | 2018-07-18 09:54 | CON.CARD ---
Consult Consult Specialty:: Cardiology Referred by:: Hospitalist Medicine Reason for Consultation:: Chest pain, dyspnea - History of Present Illness Chief Complaint: Chest pain, dyspnea History of Present Illness: 52yo female with h/o HTN, DM, ESRD on HD, anxiety who presented with shortness of breath, squeezing chest pain, orthopnea in context of SBP > 200, BGT 400s in context of medication noncompliance. Started on NTG gtt, hydralazine and IV Lasix, placed on NIPPV, now undergoing HD with improvement of sxs. She is a smoker 1/2 PPD but denies history of asthma or COPD, w/u for PE was negative. 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: Peripheral Neuropathy Cardio/Vascular: Yes: HTN, Hyperlipdemia Pulmonary: Yes: Asthma Gastrointestinal: Yes: GERD Renal/: Yes: Renal Failure, Hemodialysis ...LMP: 12/01/14 ...: No Endocrine: Yes: Diabetes Mellitus - Past Surgical History Past Surgical History: Yes: AV Fistula/Graft (LUE), (x3) - Alcohol/Substance Use Hx Alcohol Use: No History of Substance Use: reports: None - Smoking History Smoking history: Never smoked Have you smoked in the past 12 months: No Aproximately how many cigarettes per day: 6 - Social History ADL: Independent History of Recent Travel: No Home Medications - Allergies Allergies/Adverse Reactions: Allergies Allergy/AdvReac Type Severity Reaction Status Date / Time No Known Allergies Allergy Verified 07/17/18 23:20 - Home Medications Home Medications: Ambulatory Orders Ammonium Lactate Cream [Lac-Hydrin 12% Cream -] 1 applic TP BID 12/14/16 Baclofen 10 mg PO HS 12/14/16 Bisacodyl [Bisacodyl -] 5 mg PO DAILY 12/14/16 Calcium Acetate 667 mg PO AC 12/14/16 Dexlansoprazole [Dexilant] 60 mg PO DAILY 12/14/16 Hydralazine HCl 100 mg PO TID 12/14/16 Melatonin 3 mg PO HS 12/14/16 Metoclopramide HCl [Reglan -] 10 mg PO TID 12/14/16 Nifedipine [Nifedipine ER] 60 mg PO DAILY 12/14/16 Quetiapine Fumarate [Seroquel -] 25 mg PO HS 12/14/16 Ramipril [Altace] 5 mg PO DAILY 12/14/16 Ranitidine [Zantac -] 150 mg PO DAILY 12/14/16 Sennosides [Senna -] 2 tab PO HS 12/14/16 Vitamin E 400 unit PO DAILY 12/14/16 Insulin (Levemir) [Levemir Vial] 20 units SQ HS #1 ml 12/16/16 Insulin (Levemir) [Levemir Vial] 35 units SQ AM #1 ml 12/16/16 Family Disease History - Family Disease History Family Disease History: CA: Father (colon cancer) Review of Systems - Review of Systems Cardiovascular: reports: Chest Pain, Shortness of Breath Respiratory: reports: Orthopnea Vital Signs: Vital Signs Temperature 98.0 F 07/18/18 09:35 Pulse Rate 98 H 07/18/18 09:35 Respiratory Rate 28 H 07/18/18 09:35 Blood Pressure 160/75 07/18/18 09:35 O2 Sat by Pulse Oximetry (%) 100 07/18/18 08:55 Constitutional: Yes: No Distress, Calm Neck: Yes: Supple Respiratory: Yes: Regular, Diminished, On BiPap Gastrointestinal: Yes: Soft, Hypoactive Bowel Sounds Cardiovascular: Yes: Regular Rate and Rhythm JVD: No Carotid Bruit: No Heart Sounds: Yes: S1, S2 Murmur: Yes: Systolic Murmur, Grade 1 Edema: Yes Edema: LLE: Trace, RLE: Trace - Other Data Labs, Other Data: CBC, BMP 07/18/18 05:25 07/18/18 05:25 INR, PTT INR 0.97 (0.83-1.09) 07/17/18 23:21 Troponin, BNP 07/17/18 07/17/18 23:21 23:21 Troponin I 0.14 H B-Natriuretic Peptide 69704.7 H Troponin, BNP 07/17/18 07/17/18 23:21 23:21 Troponin I 0.14 H B-Natriuretic Peptide 35494.7 H ST @ 107 nonspec T changes Imaging - Results Chest X-ray: Report Reviewed (CHF) Problem List - Problems (1) Hypertensive heart disease Code(s): I11.9 - HYPERTENSIVE HEART DISEASE WITHOUT HEART FAILURE Qualifiers: Heart failure presence: with heart failure Heart failure type: diastolic Heart failure chronicity: acute on chronic Qualified Code(s): I11.0 - Hypertensive heart disease with heart failure; I50.33 - Acute on chronic diastolic (congestive) heart failure (2) Demand ischemia Code(s): I24.8 - OTHER FORMS OF ACUTE ISCHEMIC HEART DISEASE (3) Acute pulmonary edema Code(s): J81.0 - ACUTE PULMONARY EDEMA (4) Chest pain Code(s): R07.9 - CHEST PAIN, UNSPECIFIED Qualifiers: Chest pain type: precordial pain Qualified Code(s): R07.2 - Precordial pain (5) Anemia in chronic kidney disease (CKD) Code(s): N18.9 - CHRONIC KIDNEY DISEASE, UNSPECIFIED; D63.1 - ANEMIA IN CHRONIC KIDNEY DISEASE Qualifiers: Chronic kidney disease stage: on chronic dialysis Qualified Code(s): N18.6 - End stage renal disease; D63.1 - Anemia in chronic kidney disease; Z99.2 - Dependence on renal dialysis (6) Diabetes Code(s): E11.9 - TYPE 2 DIABETES MELLITUS WITHOUT COMPLICATIONS Qualifiers: Diabetes mellitus type: type 2 Diabetes mellitus intermediate accountant insulin use: with intermediate accountant use Diabetes mellitus complication status: with skin complications Diabetes mellitus complication detail: with foot ulcer Qualified Code(s): E11.621 - Type 2 diabetes mellitus with foot ulcer (7) End stage renal disease on dialysis Code(s): N18.6 - END STAGE RENAL DISEASE; Z99.2 - DEPENDENCE ON RENAL DIALYSIS Assessment/Plan 07/16/2018 Echo: Normal LV size with mild cLVH and normal LV fn LVEF 65-70%, normal RV fxn, mild LAE, mild-mod MR, TR, mild TN RVSP 61 mmHg 1. Dsypnea and chest pain referable to acute on chronic recurrent diastolic heart failure 2. ESRD on HD with hyperkalemia 3. +Troponins likely Demand Ischemia 4. Pulmonary HTN 5. Hypertensive heart disease 6. Type 2 DM 7. Anemia of CKD P: 1. Volume removal via HD, trend trops to document peak, check TSH and lipid panel 2. Start carvedilol 6.25 bid with uptitration as tolerated, change ramipril 5 qd to losartan 50 qd as hyperkalemia resolved, procardia XL 60 qd 3. Addressed importance of medication, diet and HD compliance 4. Outpatient CV evaluation given recurrent DCHF 5. Thank you for consultative opportunity
[2018-07-18] MEDS ORDERED: RAMIPRIL 5 MG CAPSULE (FP) PO SCH (10:00)
[2018-07-18] MEDS ORDERED: PANTOPRAZOLE 40 MG TABLET (FP) PO SCH (10:00)
[2018-07-18] MEDS ORDERED: BISACODYL 5 MG TABLET.DR (FP) PO SCH (10:00)
[2018-07-18] MEDS ORDERED: NIFEdipine E.R 60 MG TABLET (UD) PO SCH (10:00)
[2018-07-18] MEDS ORDERED: AMMONIUM LACTATE 12% LOTION 225 GM BOTTLE TP SCH (10:00)
[2018-07-18] MEDS ORDERED: VITAMIN E 400 INTERNATIONAL-UNITS CAPSULE (FP) PO SCH (10:00)
[2018-07-18] MEDS ORDERED: RANITIDINE HCL 150 MG TABLET (FP) PO SCH (10:00)
[2018-07-18] MEDS ORDERED: EPOETIN ALFA 2,000 UNIT/1 ML VIAL IVPUSH ONE ×3 (10:00→10:30)
[2018-07-18] MEDS: LOSARTAN POTASSIUM 50 MG TABLET (FP) PO SCH (10:44)
[2018-07-18] MEDS: BISACODYL 5 MG TABLET.DR (FP) PO SCH (10:44)
[2018-07-18] MEDS: METOCLOPRAMIDE HCL 10 MG TABLET (FP) PO SCH ×2 (10:44→16:58)
[2018-07-18] MEDS: CARVEDILOL 6.25 MG TABLET (FP) PO SCH ×2 (10:44→21:53)
[2018-07-18] MEDS: HEPARIN NA (PORCINE) 5,000 UNITS/ML 1ML VIAL IVPUSH SCH ×3 (10:50→12:40)
[2018-07-18] MEDS: CALCIUM ACETATE 667 MG CAPSULE (FP) PO SCH ×2 (11:42→16:58)
--- NOTE | 2018-07-18 13:32 | CONSULT ---
Consult Consult Specialty:: Nephrology Reason for Consultation:: ESRD - History of Present Illness Chief Complaint: shortness of breath History of Present Illness: Pt is a 52 year old female with pmhx of ESRD and HTN who presents last night with shortness of breath. She was discharged yesterday. She is very anxious today. She denies chest pain. She is getting HD at the moment. Her blood pressure was also elevated. 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: Peripheral Neuropathy Cardio/Vascular: Yes: HTN, Hyperlipdemia Pulmonary: Yes: Asthma Gastrointestinal: Yes: GERD Renal/: Yes: Renal Failure, Hemodialysis ...LMP: 12/01/14 ...: No Endocrine: Yes: Diabetes Mellitus - Past Surgical History Past Surgical History: Yes: AV Fistula/Graft (LUE), (x3) - Alcohol/Substance Use Hx Alcohol Use: No History of Substance Use: reports: None - Smoking History Smoking history: Never smoked Have you smoked in the past 12 months: No Aproximately how many cigarettes per day: 6 - Social History ADL: Independent History of Recent Travel: No Home Medications - Allergies Allergies/Adverse Reactions: Allergies Allergy/AdvReac Type Severity Reaction Status Date / Time No Known Allergies Allergy Verified 07/17/18 23:20 - Home Medications Home Medications: Ambulatory Orders Ammonium Lactate Cream [Lac-Hydrin 12% Cream -] 1 applic TP BID 12/14/16 Baclofen 10 mg PO HS 12/14/16 Bisacodyl [Bisacodyl -] 5 mg PO DAILY 12/14/16 Calcium Acetate 667 mg PO AC 12/14/16 Dexlansoprazole [Dexilant] 60 mg PO DAILY 12/14/16 Hydralazine HCl 100 mg PO TID 12/14/16 Melatonin 3 mg PO HS 12/14/16 Metoclopramide HCl [Reglan -] 10 mg PO TID 12/14/16 Nifedipine [Nifedipine ER] 60 mg PO DAILY 12/14/16 Quetiapine Fumarate [Seroquel -] 25 mg PO HS 12/14/16 Ramipril [Altace] 5 mg PO DAILY 12/14/16 Ranitidine [Zantac -] 150 mg PO DAILY 12/14/16 Sennosides [Senna -] 2 tab PO HS 12/14/16 Vitamin E 400 unit PO DAILY 12/14/16 Insulin (Levemir) [Levemir Vial] 20 units SQ HS #1 ml 12/16/16 Insulin (Levemir) [Levemir Vial] 35 units SQ AM #1 ml 12/16/16 Family Disease History - Family Disease History Family Disease History: CA: Father (colon cancer) Review of Systems - Review of Systems Constitutional: reports: Malaise Eyes: reports: No Symptoms HENT: reports: No Symptoms Neck: reports: No Symptoms Cardiovascular: reports: Shortness of Breath Respiratory: reports: SOB Gastrointestinal: reports: No Symptoms Genitourinary: reports: No Symptoms Musculoskeletal: reports: No Symptoms Integumentary: reports: No Symptoms Neurological: reports: No Symptoms Endocrine: reports: No Symptoms Hematology/Lymphatic: reports: No Symptoms Psychiatric: reports: No Symptoms Physical Exam Vital Signs: Vital Signs Temperature 98.3 F 07/18/18 09:45 Pulse Rate 95 H 07/18/18 12:20 Respiratory Rate 18 07/18/18 12:20 Blood Pressure 166/78 07/18/18 12:20 O2 Sat by Pulse Oximetry (%) 100 07/18/18 09:53 Constitutional: Yes: Anxious Eyes: Yes: Conjunctiva Clear Cardiovascular: Yes: S1, S2 Respiratory: Yes: On Nasal O2 Gastrointestinal: Yes: Soft Renal/: Yes: WNL Edema: No Neurological: Yes: Oriented Psychiatric: Yes: Agitated Labs: CBC, BMP 07/18/18 05:25 07/18/18 05:25 Imaging - Results Chest X-ray: Report Reviewed Problem List - Problems (1) End stage kidney disease Code(s): N18.6 - END STAGE RENAL DISEASE Assessment/Plan Current Medications Generic Name Dose Route Start Last Admin Trade Name Freq PRN Reason Stop Dose Admin Albuterol Sulfate 1 amp 07/18/18 08:16 Ventolin 0.083% Nebulizer Soln - NEB Q1H PRN SHORT OF BREATH/WHEEZING Albuterol/Ipratropium 1 amp 07/18/18 14:00 Duoneb - NEB RTID VASQUEZ Bisacodyl 20 mg 07/18/18 10:00 07/18/18 10:44 Dulcolax - PO 20 mg DAILY VASQUEZ Administration Calcium Acetate 667 mg 07/18/18 12:00 07/18/18 11:42 Phoslo - PO 667 mg TIDCM VASQUEZ Administration Carvedilol 6.25 mg 07/18/18 10:15 07/18/18 10:44 Coreg - PO 6.25 mg BID VASQUEZ Administration Heparin Sodium (Porcine) 5,000 unit 07/18/18 14:00 Heparin - SQ TID VASQUEZ Sodium Chloride 250 mls @ 3,000 mls/hr 07/18/18 10:01 Normal Saline - IV 07/19/18 00:22 PRN PRN Hypotension during Dialysis Insulin Aspart 1 vial 07/18/18 11:00 07/18/18 12:00 Novolog Vial Sliding Scale - SQ 4 units TIDAC VASQUEZ Administration Protocol Insulin Detemir 15 units 07/18/18 22:00 Levemir Vial SQ HS VASQUEZ Lactic Acid 1 applic 07/18/18 22:00 Lac-Hydrin 12 TP BID [facility] Losartan Potassium 50 mg 07/18/18 10:15 07/18/18 10:44 Cozaar - PO 50 mg DAILY [facility]Z Administration Melatonin 3 mg 07/18/18 22:00 Melatonin PO HS VASQUEZ Metoclopramide HCl 10 mg 07/18/18 11:00 07/18/18 10:44 Reglan - PO 10 mg TIDAC [facility]AS[facility]Z Administration Pantoprazole Sodium 40 mg 07/19/18 10:00 Protonix - PO DAILY [facility] Quetiapine Fumarate 25 mg 07/18/18 22:00 Seroquel - PO HS [facility] Ranitidine HCl 150 mg 07/19/18 10:00 Zantac - PO DAILY [facility] Senna 2 tab 07/18/18 22:00 Senna - PO HS [facility] Vitamin E 400 unit 07/19/18 10:00 Vitamin E - PO DAILY [facility] Impression 1. ESRD 2. DM 3. HTN 4. gastroparesis 5. nausea 6. anemia 7. peripheral neuropathy 8. sudden onset shortness of breath Plan - HD today - bp meds adjsuted - will dialyze again tomorrow - am cxr - recommend that she is not discharged today, spoke to pt and she agrees to stay - psych eval for anxiety - discussed with pt and Dr Patterson, should increase HD time to 3:45 - HD time 330 400 abf 2000 heparin - monitor bp - will follow Dr Arredondo
[2018-07-18] MEDS ORDERED: ALBUTEROL SO4 2.5/IPRATROPIUM 0.5 INH SOL 3 ML VIAL.NEB. NEB SCH (14:00)
--- NOTE | 2018-07-18 14:21 | PN ---
Progress Note (short form) - Note Progress Note: PULMONARY CONSULTATION DICTATED 07/18/18 IMP ACUTE RESPIRATORY FAILURE VOLUME OVERLOAD ESRD ON HD HTN DM ASTHMA NEUROPATHY GASTROPARESIS GERD TOBACCO ABUSE + TROPONIN PLAN O2 HD PER RENAL INHALED BRONCHODILATORS PRN F/U CHEST X-RAY COMPLIANCE WITH MEDS SMOKING CESSATION COUNSELED PFTS OUTPATIENT DAILY WT TREND TROPONIN DR PALUMBO Problem List - Problems (1) Acute pulmonary edema Code(s): J81.0 - ACUTE PULMONARY EDEMA (2) Hypertensive heart disease Code(s): I11.9 - HYPERTENSIVE HEART DISEASE WITHOUT HEART FAILURE Qualifiers: Heart failure presence: with heart failure Heart failure type: diastolic Heart failure chronicity: acute on chronic Qualified Code(s): I11.0 - Hypertensive heart disease with heart failure; I50.33 - Acute on chronic diastolic (congestive) heart failure (3) End stage kidney disease Code(s): N18.6 - END STAGE RENAL DISEASE (4) GERD (gastroesophageal reflux disease) Code(s): K21.9 - GASTRO-ESOPHAGEAL REFLUX DISEASE WITHOUT ESOPHAGITIS (5) Gastroparesis Code(s): K31.84 - GASTROPARESIS (6) Shortness of breath Code(s): R06.02 - SHORTNESS OF BREATH (7) Type 1 diabetes mellitus with diabetic chronic kidney disease Code(s): E10.22 - TYPE 1 DIABETES MELLITUS W DIABETIC CHRONIC KIDNEY DISEASE; N18.9 - CHRONIC KIDNEY DISEASE, UNSPECIFIED (8) Type 1 diabetes mellitus with diabetic nephropathy Code(s): E10.21 - TYPE 1 DIABETES MELLITUS WITH DIABETIC NEPHROPATHY (9) End stage renal disease on dialysis Code(s): N18.6 - END STAGE RENAL DISEASE; Z99.2 - DEPENDENCE ON RENAL DIALYSIS (10) HTN (hypertension) Code(s): I10 - ESSENTIAL (PRIMARY) HYPERTENSION Qualifiers: Hypertension type: essential hypertension Qualified Code(s): I10 - Essential (primary) hypertension (11) Smoking greater than 20 pack years Code(s): F17.210 - NICOTINE DEPENDENCE, CIGARETTES, UNCOMPLICATED
[2018-07-18] MEDS: HEPARIN NA (PORCINE) 5,000 UNITS/ML 1ML VIAL SQ SCH ×2 (14:27→21:54)
--- NOTE | 2018-07-18 14:41 | PN ---
Teaching Attending Note Name of Resident: Cris Chavez ATTENDING PHYSICIAN STATEMENT I saw and evaluated the patient. I reviewed the resident's note and discussed the case with the resident. I agree with the resident's findings and plan as documented with exceptions below. SUBJECTIVE: Patient seen and examined. On Bipap, getting HD. Breathing better. Agrees to comply with medications. OBJECTIVE: Vital Signs Period Temp Pulse Resp BP Sys/Rivera Pulse Ox Last 24 Hr 98.0 F-98.8 F 94-117 18-32 154-215/75-114 93-100 Intake & Output 07/15/18 07/16/18 07/17/18 07/18/18 23:59 23:59 23:59 23:59 Intake Total 120 Balance 120 Weight 205 lb 205 lb General: sitting in bed on bipap, getting HD Neck: neck veins distension, unable to appreciate clear JVD, exam limited Chest: Distant breath sounds, no rales or wheezing, decreased air entry Abdomen: soft, obese, NT Extremities: 1+ pedal edema Home Medications Medication Instructions Recorded Ammonium Lactate Cream [Lac-Hydrin 1 applic TP BID 12/14/16 12% Cream -] Baclofen 10 mg PO HS 12/14/16 Bisacodyl [Bisacodyl -] 5 mg PO DAILY 12/14/16 Calcium Acetate 667 mg PO AC 12/14/16 Dexlansoprazole [Dexilant] 60 mg PO DAILY 12/14/16 Hydralazine HCl 100 mg PO TID 12/14/16 Melatonin 3 mg PO HS 12/14/16 Metoclopramide HCl [Reglan -] 10 mg PO TID 12/14/16 Nifedipine [Nifedipine ER] 60 mg PO DAILY 12/14/16 Quetiapine Fumarate [Seroquel -] 25 mg PO HS 12/14/16 Ramipril [Altace] 5 mg PO DAILY 12/14/16 Ranitidine [Zantac -] 150 mg PO DAILY 12/14/16 Sennosides [Senna -] 2 tab PO HS 12/14/16 Vitamin E 400 unit PO DAILY 12/14/16 Insulin (Levemir) [Levemir Vial] 20 units SQ HS #1 ml 12/16/16 Insulin (Levemir) [Levemir Vial] 35 units SQ AM #1 ml 12/16/16 Active Medications Albuterol Sulfate (Ventolin 0.083% Nebulizer Soln -) 1 amp NEB Q1H PRN PRN Reason: SHORT OF BREATH/WHEEZING Albuterol/Ipratropium (Duoneb -) 1 amp NEB RTID [facility] Last Admin: 07/18/18 14:30 Dose: 1 amp Bisacodyl (Dulcolax -) 20 mg PO DAILY [facility] Last Admin: 07/18/18 10:44 Dose: 20 mg Calcium Acetate (Phoslo -) 667 mg PO TIDCM [facility] Last Admin: 07/18/18 11:42 Dose: 667 mg Carvedilol (Coreg -) 6.25 mg PO BID [facility] Last Admin: 07/18/18 10:44 Dose: 6.25 mg Heparin Sodium (Porcine) (Heparin -) 5,000 unit SQ TID [facility] Hydralazine HCl (Apresoline -) 100 mg PO TID [facility] Sodium Chloride (Normal Saline -) 250 mls @ 3,000 mls/hr IV PRN PRN PRN Reason: Hypotension during Dialysis Stop: 07/19/18 00:22 Insulin Aspart (Novolog Vial Sliding Scale -) 1 vial SQ [facility]; Protocol Insulin Detemir (Levemir Vial) 15 units SQ HS [facility] Lactic Acid (Lac-Hydrin 12) 1 applic TP BID [facility] Losartan Potassium (Cozaar -) 50 mg PO DAILY [facility] Last Admin: 07/18/18 10:44 Dose: 50 mg Melatonin (Melatonin) 3 mg PO HS [facility] Metoclopramide HCl (Reglan -) 10 mg PO TIDAC [facility] Last Admin: 07/18/18 10:44 Dose: 10 mg Nifedipine (Procardia Xl -) 60 mg PO DAILY [facility] Pantoprazole Sodium (Protonix -) 40 mg PO DAILY [facility] Quetiapine Fumarate (Seroquel -) 25 mg PO HS [facility] Ranitidine HCl (Zantac -) 150 mg PO DAILY [facility] Senna (Senna -) 2 tab PO HS [facility] Vitamin E (Vitamin E -) 400 unit PO DAILY [facility] Laboratory Results - last 24 hr 07/17/18 07/17/18 07/17/18 23:21 23:21 23:21 WBC 9.4 RBC 2.96 L Hgb 9.8 L Hct 28.9 L MCV 97.9 H MCH 33.2 MCHC 33.9 RDW 14.9 Plt Count 321 MPV 9.3 Absolute Neuts (auto) 7.8 Neutrophils % 83.8 H D Lymphocytes % 8.0 D Monocytes % 7.5 Eosinophils % 0.0 D Basophils % 0.7 Nucleated RBC % 0 PT with INR 11.40 INR 0.97 PTT (Actin FS) 31.2 Anticoagulation Therapy No Result Required. Puncture Site No Result Required. ABG pH 7.42 ABG pCO2 at Pt Temp 38.8 ABG pO2 at Pt Temp 98.1 ABG HCO3 24.6 ABG O2 Sat (Measured) 95.8 ABG O2 Content 11.2 L ABG Base Excess 0.6 Jono Test No Result Required. O2 Delivery Device No Result Required. Oxygen Flow Rate No Result Required. Vent Mode No Result Required. Vent Rate No Result Required. Mechanical Rate No Result Required. Pressure Support Vent No Result Required. Sodium Potassium Chloride Carbon Dioxide Anion Gap BUN Creatinine Creat Clearance w eGFR POC Glucometer Random Glucose Lactic Acid Calcium Phosphorus Magnesium Total Bilirubin AST ALT Alkaline Phosphatase Creatine Kinase Troponin I B-Natriuretic Peptide Total Protein Albumin Acetone, Qual 07/17/18 07/17/18 07/17/18 23:21 23:21 23:21 WBC RBC Hgb Hct MCV MCH MCHC RDW Plt Count MPV Absolute Neuts (auto) Neutrophils % Lymphocytes % Monocytes % Eosinophils % Basophils % Nucleated RBC % PT with INR INR PTT (Actin FS) Anticoagulation Therapy Puncture Site ABG pH ABG pCO2 at Pt Temp ABG pO2 at Pt Temp ABG HCO3 ABG O2 Sat (Measured) ABG O2 Content ABG Base Excess Jono Test O2 Delivery Device Oxygen Flow Rate Vent Mode Vent Rate Mechanical Rate Pressure Support Vent Sodium 135 L Potassium 4.6 Chloride 97 L Carbon Dioxide 24 Anion Gap 14 BUN 57 H Creatinine 6.3 H Creat Clearance w eGFR 6.96 POC Glucometer Random Glucose 482 H* Lactic Acid 3.1 H* Calcium 8.9 Phosphorus Magnesium 2.3 Total Bilirubin 0.4 AST 27 ALT 73 H Alkaline Phosphatase 390 H Creatine Kinase 118 Troponin I 0.14 H B-Natriuretic Peptide 84390.7 H Total Protein 7.8 Albumin 3.5 Acetone, Qual 07/17/18 07/18/18 07/18/18 23:30 04:57 05:25 WBC 9.1 RBC 2.82 L Hgb 9.1 L Hct 27.0 L MCV 96.0 MCH 32.5 MCHC 33.8 RDW 14.7 Plt Count 283 MPV 8.9 Absolute Neuts (auto) Neutrophils % Lymphocytes % Monocytes % Eosinophils % Basophils % Nucleated RBC % PT with INR INR PTT (Actin FS) Anticoagulation Therapy Puncture Site ABG pH ABG pCO2 at Pt Temp ABG pO2 at Pt Temp ABG HCO3 ABG O2 Sat (Measured) ABG O2 Content ABG Base Excess Jono Test O2 Delivery Device Oxygen Flow Rate Vent Mode Vent Rate Mechanical Rate Pressure Support Vent Sodium Potassium Chloride Carbon Dioxide Anion Gap BUN Creatinine Creat Clearance w eGFR POC Glucometer 226 Random Glucose Lactic Acid Calcium Phosphorus Magnesium Total Bilirubin AST ALT Alkaline Phosphatase Creatine Kinase Troponin I B-Natriuretic Peptide Total Protein Albumin Acetone, Qual Negative L 07/18/18 07/18/18 07/18/18 05:25 07:00 09:12 WBC RBC Hgb Hct MCV MCH MCHC RDW Plt Count MPV Absolute Neuts (auto) Neutrophils % Lymphocytes % Monocytes % Eosinophils % Basophils % Nucleated RBC % PT with INR INR PTT (Actin FS) Anticoagulation Therapy Puncture Site ABG pH ABG pCO2 at Pt Temp ABG pO2 at Pt Temp ABG HCO3 ABG O2 Sat (Measured) ABG O2 Content ABG Base Excess Jono Test O2 Delivery Device Oxygen Flow Rate Vent Mode Vent Rate Mechanical Rate Pressure Support Vent Sodium 137 Potassium 4.2 Chloride 100 Carbon Dioxide 28 Anion Gap 10 BUN 63 H Creatinine 6.3 H Creat Clearance w eGFR 6.96 POC Glucometer 116 Random Glucose 197 H Lactic Acid 1.0 Calcium 9.1 Phosphorus 6.2 H Magnesium 2.5 H Total Bilirubin AST ALT Alkaline Phosphatase Creatine Kinase Troponin I B-Natriuretic Peptide Total Protein Albumin Acetone, Qual 07/18/18 07/18/18 09:12 11:32 WBC RBC Hgb Hct MCV MCH MCHC RDW Plt Count MPV Absolute Neuts (auto) Neutrophils % Lymphocytes % Monocytes % Eosinophils % Basophils % Nucleated RBC % PT with INR INR PTT (Actin FS) Anticoagulation Therapy Puncture Site ABG pH ABG pCO2 at Pt Temp ABG pO2 at Pt Temp ABG HCO3 ABG O2 Sat (Measured) ABG O2 Content ABG Base Excess Jono Test O2 Delivery Device Oxygen Flow Rate Vent Mode Vent Rate Mechanical Rate Pressure Support Vent Sodium Potassium Chloride Carbon Dioxide Anion Gap BUN Creatinine Creat Clearance w eGFR POC Glucometer 216 Random Glucose Lactic Acid Calcium Phosphorus Magnesium Total Bilirubin AST ALT Alkaline Phosphatase Creatine Kinase Troponin I 0.60 H B-Natriuretic Peptide Total Protein Albumin Acetone, Qual ASSESSMENT AND PLAN: 52 yof with PMHx of IDDM, ESRD on HD, HTN, anxiety, admitted yesterday, with HTN when d/en after HD, non compliant with her meds re-admitted with Hypertensive emergency/Flash pulmonary edema -Hypertensive emergency, suspect from medication non compliance -Acute flash pulmonary edema, likely from above -Acute hypoxic respiratory failure -Acute diastolic Heart failure exacerbation -ESRD on HD -IDDM -Anxiety disorder Plan: Emergent HD today. S/p Nitro drip in ED, d/en now. Trial off bipap once off HD. Cardiology/nephrology input noted. Coreg started. Resume nifedipine/hydralazine. ACei changed to ARB. Psychiatry input noted. Buspar bid started. seroquel d/en. Need for compliance stressed with patient. ISS, diabetic diet. Agree with starting levemir at lower dose and titrate up once respiratory status improved. DVTPPX heparin Dispo pending clinical improvement. Plan discussed with patient and nursing in detail, all questions answered.
[2018-07-18] MEDS ORDERED: hydrALAZINE HCL 25 MG TABLET (FP) PO SCH (14:45)
--- NOTE | 2018-07-18 15:02 | CON.PSY ---
Psychiatry Consult Chief Complaint: 52 year old femle with copd, esrd seen for Psych consult. complians of anxiety, insomnia. No previous psych illness. Symptoms: reports: Anxiety - Previous Psychiatric Treatment Outpatient: None Inpatient: None - Previous Substance Abuse Treatment Outpatient: None Inpatient: None - Current Medications Current Medications: Active Medications Albuterol Sulfate (Ventolin 0.083% Nebulizer Soln -) 1 amp NEB Q1H PRN PRN Reason: SHORT OF BREATH/WHEEZING Albuterol/Ipratropium (Duoneb -) 1 amp NEB RTID [facility] Last Admin: 07/18/18 14:30 Dose: 1 amp Bisacodyl (Dulcolax -) 20 mg PO DAILY [facility] Last Admin: 07/18/18 10:44 Dose: 20 mg Buspirone HCl (Buspar -) 10 mg PO BID [facility] Calcium Acetate (Phoslo -) 667 mg PO TIDCM [facility] Last Admin: 07/18/18 11:42 Dose: 667 mg Carvedilol (Coreg -) 6.25 mg PO BID [facility] Last Admin: 07/18/18 10:44 Dose: 6.25 mg Heparin Sodium (Porcine) (Heparin -) 5,000 unit SQ TID [facility] Hydralazine HCl (Apresoline -) 100 mg PO TID [facility] Sodium Chloride (Normal Saline -) 250 mls @ 3,000 mls/hr IV PRN PRN PRN Reason: Hypotension during Dialysis Stop: 07/19/18 00:22 Insulin Aspart (Novolog Vial Sliding Scale -) 1 vial SQ [facility]; Protocol Insulin Detemir (Levemir Vial) 15 units SQ HS [facility] Lactic Acid (Lac-Hydrin 12) 1 applic TP BID [facility] Losartan Potassium (Cozaar -) 50 mg PO DAILY [facility] Last Admin: 07/18/18 10:44 Dose: 50 mg Melatonin (Melatonin) 3 mg PO HS [facility] Metoclopramide HCl (Reglan -) 10 mg PO TIDAC [facility] Last Admin: 07/18/18 10:44 Dose: 10 mg Nifedipine (Procardia Xl -) 60 mg PO DAILY [facility] Pantoprazole Sodium (Protonix -) 40 mg PO DAILY [facility] Ranitidine HCl (Zantac -) 150 mg PO DAILY [facility] Senna (Senna -) 2 tab PO HS [facility] Vitamin E (Vitamin E -) 400 unit PO DAILY [facility] - Allergies Allergies: Allergies Allergy/AdvReac Type Severity Reaction Status Date / Time No Known Allergies Allergy Verified 07/17/18 23:20 - Current Living Status Usual Living Arrangement: With Child - Current Mental Status Evaluation Appearance: Well Groomed Attitude: Cooperative - Affect Affect: Expansive Appropriateness: Appropriate to Content - Mood Mood: Anxious - Speech/Language Expressive: Coherent - Psychomotor Activity Psychomotor Activity: Hyperactive - Thought Process Thought Process: Intact - Thought Content Hallucinations: Absent Delusions: Absent - Self Perception Self Perception: No Impairment - Cognition Attention: Alert Orientation: Time Memory, Immediate Recall: Intact Memory, Short Term: 2/3 Memory, Remote with Promptin/3 - Concentration Serial Sevens Intact: No Simple Calculations Intact: Yes - Abstraction Proverb Interpretation: Intact Judgement: Intact - Insight Insight: Intact - Impulse Control Impulse Control: Good Control - Suicidal Ideation Suicidal Ideation: No - Homicidal Ideation Homicidal Ideation: No Assessment/Plan 1) Buspar 10mg po bid.d/c seroquel
--- NOTE | 2018-07-18 15:43 | CONS ---
DATE OF CONSULTATION: 07/18/2018 PULMONARY CONSULTATION REFERRING PHYSICIAN: Dr. Earl The patient is a 52-year-old female with an extensive past medical history which includes diabetes mellitus, hypertension, neuropathy, gastroparesis, end- stage renal disease on hemodialysis 3 times weekly, GERD, anxiety, depression, hyperlipidemia, asthma, longstanding history of tobacco use, currently still smoking, admitted to [facility] with acute onset of shortness of breath. Patient was hospitalized and discharged on day of admission after being treated for acute pulmonary edema secondary to fluid overload. She received hemodialysis, felt better, and discharged home. Last night, she developed acute onset of shortness of breath as well as chest tightness. Denied any nausea, vomiting, diaphoresis. She was forced by her sister to come back to the emergency room. Patient was discharged and did not take any of her medications since being discharged. She denies any fevers, chills, nausea, or hemoptysis. PAST MEDICAL HISTORY: Again includes diabetes mellitus, peripheral neuropathy, hypertension, GERD, end-stage renal disease on hemodialysis, hypertension, depression, and gastroparesis. REVIEW OF SYSTEMS: Positive dyspnea. Positive orthopnea. Positive chest tightness. No nausea. No vomiting. No fever. No chills. No hemoptysis. No lower extremity edema. CURRENT MEDICATIONS: Include Cozaar, heparin, Seroquel, albuterol, DuoNeb, Coreg, Dulcolax, senna, normal saline, p.r.n. Zantac, NovoLog, Levemir, melatonin, PhosLo, Reglan, Protonix, and vitamin E. PHYSICAL EXAMINATION: General: Patient is a well-developed, well-nourished female currently awake in no acute distress. Vital Signs: She is afebrile, blood pressure is 154/81, respiratory rate is 18 , and O2 saturation is 96% on 2 L. HEENT: Exam is normocephalic, atraumatic. Neck: Supple. Heart: Regular, S1, S2. Chest: Has a few bibasilar crackles. Abdomen: Soft. Bowel sounds positive. Extremities: No cyanosis. Edema. LABORATORIES: WBC is 9.1, hemoglobin 9.1, hematocrit 27, platelet count 51,000 to 83,000. Blood gas pH 7.42, PCO2 of 38, PO2 of 98, a bicarbonate of 24, and a saturation of 95, an unknown quantity of oxygen. Chemistry: BUN 63, creatinine 6.3. Troponin 0.60. Chest x-ray reveals bilateral pulmonary vascular congestion. IMPRESSION: Acute respiratory failure secondary to: 1. Volume overload. 2. End-stage renal disease on hemodialysis. 3. Hypertension. 4. Diabetes. 5. Asthma. 6. Neuropathy. 7. Gastroparesis. 8. Gastroesophageal reflux disease. 9. Tobacco abuse. PLAN: Supplemental O2. Hemodialysis as per Renal. Inhaled bronchodilators p.r.n. Obtain followup chest x-ray. Stress compliance of medication. Smoking cessation counseled. PFTs as outpatient. Daily weights. Trend troponins. LATOYA PALUMBO M.D. [id number] MTDD
[2018-07-18] MEDS: INSULIN SLIDING SCALE (NOVOLOG) 1 VIAL SQ SCH ×2 (16:58→21:54)
--- NOTE | 2018-07-18 17:27 | PN ---
Physical Exam: SUBJECTIVE: Patient seen and examined; on BIPAP: wanting to leave; talked her into staying OBJECTIVE: Vital Signs Period Temp Pulse Resp BP Sys/Rivera Pulse Ox Last 24 Hr 98.0 F-98.8 F 94-117 18-32 154-215/75-114 93-100 GENERAL: The patient is awake, alert, and fully oriented, in no acute distress. LUNGS:decreased breath sounds; chest tightness HEART: Regular rate and rhythm, S1, S2 without murmur, rub or gallop. ABDOMEN: Soft, nontender, nondistended, normoactive bowel sounds, no guarding, no rebound, no hepatosplenomegaly, no masses. EXTREMITIES: 2+ pulses, warm, well-perfused, no edema. NEUROLOGICAL: Cranial nerves II through XII grossly intact. Normal speech, gait not observed. PSYCH: anxious SKIN: Warm, dry, normal turgor, no rashes or lesions noted Laboratory Results - last 24 hr 07/17/18 07/17/18 07/17/18 23:21 23:21 23:21 WBC 9.4 RBC 2.96 L Hgb 9.8 L Hct 28.9 L MCV 97.9 H MCH 33.2 MCHC 33.9 RDW 14.9 Plt Count 321 MPV 9.3 Absolute Neuts (auto) 7.8 Neutrophils % 83.8 H D Lymphocytes % 8.0 D Monocytes % 7.5 Eosinophils % 0.0 D Basophils % 0.7 Nucleated RBC % 0 PT with INR 11.40 INR 0.97 PTT (Actin FS) 31.2 Anticoagulation Therapy No Result Required. Puncture Site No Result Required. ABG pH 7.42 ABG pCO2 at Pt Temp 38.8 ABG pO2 at Pt Temp 98.1 ABG HCO3 24.6 ABG O2 Sat (Measured) 95.8 ABG O2 Content 11.2 L ABG Base Excess 0.6 Jono Test No Result Required. O2 Delivery Device No Result Required. Oxygen Flow Rate No Result Required. Vent Mode No Result Required. Vent Rate No Result Required. Mechanical Rate No Result Required. Pressure Support Vent No Result Required. Sodium Potassium Chloride Carbon Dioxide Anion Gap BUN Creatinine Creat Clearance w eGFR POC Glucometer Random Glucose Lactic Acid Calcium Phosphorus Magnesium Total Bilirubin AST ALT Alkaline Phosphatase Creatine Kinase Troponin I B-Natriuretic Peptide Total Protein Albumin Acetone, Qual 03/07/17/18 07/17/18 23:21 23:21 23:21 WBC RBC Hgb Hct MCV MCH MCHC RDW Plt Count MPV Absolute Neuts (auto) Neutrophils % Lymphocytes % Monocytes % Eosinophils % Basophils % Nucleated RBC % PT with INR INR PTT (Actin FS) Anticoagulation Therapy Puncture Site ABG pH ABG pCO2 at Pt Temp ABG pO2 at Pt Temp ABG HCO3 ABG O2 Sat (Measured) ABG O2 Content ABG Base Excess Jono Test O2 Delivery Device Oxygen Flow Rate Vent Mode Vent Rate Mechanical Rate Pressure Support Vent Sodium 135 L Potassium 4.6 Chloride 97 L Carbon Dioxide 24 Anion Gap 14 BUN 57 H Creatinine 6.3 H Creat Clearance w eGFR 6.96 POC Glucometer Random Glucose 482 H* Lactic Acid 3.1 H* Calcium 8.9 Phosphorus Magnesium 2.3 Total Bilirubin 0.4 AST 27 ALT 73 H Alkaline Phosphatase 390 H Creatine Kinase 118 Troponin I 0.14 H B-Natriuretic Peptide 62717.7 H Total Protein 7.8 Albumin 3.5 Acetone, Qual 07/17/18 07/18/18 07/18/18 23:30 04:57 05:25 WBC 9.1 RBC 2.82 L Hgb 9.1 L Hct 27.0 L MCV 96.0 MCH 32.5 MCHC 33.8 RDW 14.7 Plt Count 283 MPV 8.9 Absolute Neuts (auto) Neutrophils % Lymphocytes % Monocytes % Eosinophils % Basophils % Nucleated RBC % PT with INR INR PTT (Actin FS) Anticoagulation Therapy Puncture Site ABG pH ABG pCO2 at Pt Temp ABG pO2 at Pt Temp ABG HCO3 ABG O2 Sat (Measured) ABG O2 Content ABG Base Excess Jono Test O2 Delivery Device Oxygen Flow Rate Vent Mode Vent Rate Mechanical Rate Pressure Support Vent Sodium Potassium Chloride Carbon Dioxide Anion Gap BUN Creatinine Creat Clearance w eGFR POC Glucometer 226 Random Glucose Lactic Acid Calcium Phosphorus Magnesium Total Bilirubin AST ALT Alkaline Phosphatase Creatine Kinase Troponin I B-Natriuretic Peptide Total Protein Albumin Acetone, Qual Negative L 07/18/18 07/18/18 07/18/18 05:25 07:00 09:12 WBC RBC Hgb Hct MCV MCH MCHC RDW Plt Count MPV Absolute Neuts (auto) Neutrophils % Lymphocytes % Monocytes % Eosinophils % Basophils % Nucleated RBC % PT with INR INR PTT (Actin FS) Anticoagulation Therapy Puncture Site ABG pH ABG pCO2 at Pt Temp ABG pO2 at Pt Temp ABG HCO3 ABG O2 Sat (Measured) ABG O2 Content ABG Base Excess Jono Test O2 Delivery Device Oxygen Flow Rate Vent Mode Vent Rate Mechanical Rate Pressure Support Vent Sodium 137 Potassium 4.2 Chloride 100 Carbon Dioxide 28 Anion Gap 10 BUN 63 H Creatinine 6.3 H Creat Clearance w eGFR 6.96 POC Glucometer 116 Random Glucose 197 H Lactic Acid 1.0 Calcium 9.1 Phosphorus 6.2 H Magnesium 2.5 H Total Bilirubin AST ALT Alkaline Phosphatase Creatine Kinase Troponin I B-Natriuretic Peptide Total Protein Albumin Acetone, Qual 07/18/18 07/18/18 07/18/18 09:12 11:32 16:51 WBC RBC Hgb Hct MCV MCH MCHC RDW Plt Count MPV Absolute Neuts (auto) Neutrophils % Lymphocytes % Monocytes % Eosinophils % Basophils % Nucleated RBC % PT with INR INR PTT (Actin FS) Anticoagulation Therapy Puncture Site ABG pH ABG pCO2 at Pt Temp ABG pO2 at Pt Temp ABG HCO3 ABG O2 Sat (Measured) ABG O2 Content ABG Base Excess Jono Test O2 Delivery Device Oxygen Flow Rate Vent Mode Vent Rate Mechanical Rate Pressure Support Vent Sodium Potassium Chloride Carbon Dioxide Anion Gap BUN Creatinine Creat Clearance w eGFR POC Glucometer 216 231 Random Glucose Lactic Acid Calcium Phosphorus Magnesium Total Bilirubin AST ALT Alkaline Phosphatase Creatine Kinase Troponin I 0.60 H B-Natriuretic Peptide Total Protein Albumin Acetone, Qual Active Medications Generic Name Dose Route Start Last Admin Trade Name Freq PRN Reason Stop Dose Admin Albuterol Sulfate 1 amp 07/18/18 08:16 Ventolin 0.083% Nebulizer Soln - NEB Q1H PRN SHORT OF BREATH/WHEEZING Bisacodyl 20 mg 07/18/18 10:00 07/18/18 10:44 Dulcolax - PO 20 mg DAILY [facility] Administration Buspirone HCl 10 mg 07/18/18 22:00 Buspar - PO BID [facility] Calcium Acetate 667 mg 07/18/18 12:00 07/18/18 16:58 Phoslo - PO 667 mg TIDCM [facility] Administration Carvedilol 6.25 mg 07/18/18 10:15 07/18/18 10:44 Coreg - PO 6.25 mg BID [facility] Administration Heparin Sodium (Porcine) 5,000 unit 07/18/18 14:00 07/18/18 14:27 Heparin - SQ 5,000 unit TID [facility] Administration Hydralazine HCl 100 mg 07/18/18 14:45 07/18/18 15:26 Apresoline - PO 100 mg TID [facility] Administration Sodium Chloride 250 mls @ 3,000 mls/hr 07/18/18 10:01 Normal Saline - IV 07/19/18 00:22 PRN PRN Hypotension during Dialysis Insulin Aspart 1 vial 07/18/18 16:30 07/18/18 16:58 Novolog Vial Sliding Scale - SQ 4 units ACHS [facility] Administration Protocol Insulin Detemir 15 units 07/18/18 22:00 Levemir Vial SQ HS [facility] Lactic Acid 1 applic 07/18/18 22:00 Lac-Hydrin 12 TP BID [facility] Losartan Potassium 50 mg 07/18/18 10:15 07/18/18 10:44 Cozaar - PO 50 mg DAILY [facility] Administration Melatonin 3 mg 07/18/18 22:00 Melatonin PO HS [facility] Metoclopramide HCl 10 mg 07/18/18 11:00 07/18/18 16:58 Reglan - PO 10 mg TIDAC [facility] Administration Nifedipine 60 mg 07/19/18 10:00 Procardia Xl - PO DAILY [facility] Pantoprazole Sodium 40 mg 07/19/18 10:00 Protonix - PO DAILY [facility] Ranitidine HCl 150 mg 07/19/18 10:00 Zantac - PO DAILY [facility] Senna 2 tab 07/18/18 22:00 Senna - PO HS [facility] Vitamin E 400 unit 07/19/18 10:00 Vitamin E - PO DAILY [facility] ASSESSMENT/PLAN: 52yo female with h/o HTN, DM, ESRD on HD, anxiety who present with shortness of breath and chest pain after recent discharge for volume overload. #shortness of breath due to vol overload; dchf; HTN #hypertensive emergency: -was on nifedipine drip; now off meds adjust ed as per cardio -carvedilol 6.25 po bid uptitrate as needed -losartan 50mg po daily -procardia 60mg po daily #Chest pain with troponemia -troponins; trend; with ecg; may be secondary to CKD or demand ischemia from tachycardia -ECHO; with pulm HTN; tricuspid regurg; diastolic chf; LV EF 65-70% -CTA negative #asthma: inhaled broncodilaotrs prn -outpatient pulm function test #ESRD: on HD-stat HD today -monitor bmp #anemia: sec to CKD; -s/p epogen; monitor cbc; iron stores #HTN #DM: -insulin ss -levemir wt based; increase prn #constipation: duculax VTE: hep ggt GI pplx: zantac Visit type - Emergency Visit Emergency Visit: Yes ED Registration Date: 07/18/18 Care time: The patient presented to the Emergency Department on the above date and was hospitalized for further evaluation of their emergent condition. - New Patient This patient is new to me today: Yes Date on this admission: 07/18/18 - Critical Care Critical Care patient: No
[2018-07-18] MEDS: MELATONIN 1 MG TABLET PO SCH (21:52)
[2018-07-18] MEDS: hydrALAZINE HCL 50 MG TABLET (FP) PO SCH (21:53)
[2018-07-18] MEDS: SENNOSIDES 8.6MG TABLET (FP) PO SCH (21:53)
[2018-07-18] MEDS: AMMONIUM LACTATE 12% LOTION 225 GM BOTTLE TP SCH (22:00)
[2018-07-18] MEDS ORDERED: MELATONIN 1 MG TABLET PO SCH (22:00)
[2018-07-18] MEDS ORDERED: QUEtiapine FUMARATE 25 MG TABLET (FP) PO SCH ×2 (22:00)
[2018-07-18] MEDS ORDERED: INSULIN (LEVEMIR) 100 UNITS/ML UNITS SQ SCH ×2 (22:00)
[2018-07-18] MEDS ORDERED: SENNOSIDES 8.6MG TABLET (FP) PO SCH (22:00)
[2018-07-18] MEDS: busPIRone HCL 10 MG TABLET (FP) PO SCH (22:32)
[2018-07-19] MEDS: HEPARIN NA (PORCINE) 5,000 UNITS/ML 1ML VIAL SQ SCH ×3 (06:08→21:47)
[2018-07-19] MEDS: INSULIN SLIDING SCALE (NOVOLOG) 1 VIAL SQ SCH ×4 (06:09→21:47)
[2018-07-19] MEDS: hydrALAZINE HCL 50 MG TABLET (FP) PO SCH ×3 (06:10→21:46)
[2018-07-19] MEDS: METOCLOPRAMIDE HCL 10 MG TABLET (FP) PO SCH ×3 (06:10→17:11)
[2018-07-19] MEDS ORDERED: SODIUM CHLORIDE 250 ML IV PRN (07:41)
[2018-07-19] MEDS ORDERED: HEPARIN NA (PORCINE) 5,000 UNITS/ML 1ML VIAL IVPUSH ONE (07:41)
[2018-07-19 07:50] LABS: ANION GAP 8 MMOL/L (8-16); BLOOD UREA NITROGEN 34 mg/dL (7-18); CALCIUM 9.2 mg/dL (8.5-10.1); CHLORIDE 102 mmol/L (98-107); CHOLESTEROL 177 mg/dL (50-200); CO2 30 mmol/L (21-32); CREATININE 4.6 mg/dL (0.55-1.3); GLUCOSE,RANDOM 221 mg/dL (74-106); HDL CHOLESTEROL 55 mg/dL (40-60); POTASSIUM 4.3 mmol/L (3.5-5.1); SODIUM 139 mmol/L (136-145); TRIGLYCERIDES 135 mg/dL (0-150)
[2018-07-19] MEDS: HEPARIN NA (PORCINE) 5,000 UNITS/ML 1ML VIAL IVPUSH SCH ×3 (09:30→11:05)
[2018-07-19] MEDS ORDERED: RAMIPRIL 5 MG CAPSULE (FP) PO SCH (10:00)
--- NOTE | 2018-07-19 10:23 | PN ---
Progress Note, Physician History of Present Illness: 52yo female with h/o HTN, DM, ESRD on HD, anxiety who presented with shortness of breath, squeezing chest pain, orthopnea in context of SBP > 200, BGT 400s in context of medication noncompliance. Started on NTG gtt, hydralazine and IV Lasix, placed on NIPPV, now undergoing HD with improvement of sxs. She is a smoker 1/2 PPD but denies history of asthma or COPD, w/u for PE was negative. - Current Medication List Current Medications: Active Medications Albuterol Sulfate (Ventolin 0.083% Nebulizer Soln -) 1 amp NEB Q1H PRN PRN Reason: SHORT OF BREATH/WHEEZING Bisacodyl (Dulcolax -) 20 mg PO DAILY [facility] Last Admin: 07/18/18 10:44 Dose: 20 mg Buspirone HCl (Buspar -) 10 mg PO BID [facility] Last Admin: 07/18/18 22:32 Dose: 10 mg Calcium Acetate (Phoslo -) 667 mg PO TIDCM [facility] Last Admin: 07/18/18 16:58 Dose: 667 mg Carvedilol (Coreg -) 6.25 mg PO BID [facility] Last Admin: 07/18/18 21:53 Dose: 6.25 mg Heparin Sodium (Porcine) (Heparin -) 5,000 unit SQ TID [facility] Last Admin: 07/19/18 06:08 Dose: 5,000 unit Hydralazine HCl (Apresoline -) 100 mg PO TID [facility] Last Admin: 07/19/18 06:10 Dose: 100 mg Sodium Chloride (Normal Saline -) 250 mls @ 3,000 mls/hr IV PRN PRN PRN Reason: Hypotension during Dialysis Stop: 07/20/18 07:42 Insulin Aspart (Novolog Vial Sliding Scale -) 1 vial SQ ACHS [facility]; Protocol Last Admin: 07/19/18 06:09 Dose: 4 units Insulin Detemir (Levemir Vial) 15 units SQ HS [facility] Last Admin: 07/18/18 21:54 Dose: Not Given Lactic Acid (Lac-Hydrin 12) 1 applic TP BID [facility] Last Admin: 07/18/18 22:00 Dose: 1 applic Losartan Potassium (Cozaar -) 50 mg PO DAILY [facility] Last Admin: 07/18/18 10:44 Dose: 50 mg Melatonin (Melatonin) 3 mg PO HS [facility] Last Admin: 07/18/18 21:52 Dose: 3 mg Metoclopramide HCl (Reglan -) 10 mg PO TIDAC [facility] Last Admin: 07/19/18 06:10 Dose: 10 mg Nifedipine (Procardia Xl -) 60 mg PO DAILY [facility] Pantoprazole Sodium (Protonix -) 40 mg PO DAILY [facility] Polyethylene Glycol (Miralax (For Daily Use) -) 17 gm PO DAILY [facility] Ranitidine HCl (Zantac -) 150 mg PO DAILY [facility] Senna (Senna -) 2 tab PO HS [facility] Last Admin: 07/18/18 21:53 Dose: 2 tab Vitamin E (Vitamin E -) 400 unit PO DAILY [facility] - Objective Vital Signs: Vital Signs Temperature 98.3 F 07/19/18 08:25 Pulse Rate 96 H 07/19/18 10:00 Respiratory Rate 18 07/19/18 10:00 Blood Pressure 165/92 07/19/18 10:00 O2 Sat by Pulse Oximetry (%) 100 07/19/18 07:28 Constitutional: Yes: No Distress, Calm Neck: Yes: Supple Cardiovascular: Yes: Regular Rate and Rhythm Respiratory: Yes: Regular, Diminished, On Nasal O2 Gastrointestinal: Yes: Normal Bowel Sounds, Soft Edema: No Labs: CBC, BMP 07/18/18 05:25 07/19/18 05:30 INR, PTT INR 0.97 (0.83-1.09) 07/17/18 23:21 - ....Imaging EKG: Report Reviewed (Tele: NSR) Problem List - Problems (1) Hypertensive heart disease Code(s): I11.9 - HYPERTENSIVE HEART DISEASE WITHOUT HEART FAILURE Qualifiers: Heart failure presence: with heart failure Heart failure type: diastolic Heart failure chronicity: acute on chronic Qualified Code(s): I11.0 - Hypertensive heart disease with heart failure; I50.33 - Acute on chronic diastolic (congestive) heart failure (2) Demand ischemia Code(s): I24.8 - OTHER FORMS OF ACUTE ISCHEMIC HEART DISEASE (3) Acute pulmonary edema Code(s): J81.0 - ACUTE PULMONARY EDEMA (4) Chest pain Code(s): R07.9 - CHEST PAIN, UNSPECIFIED Qualifiers: Chest pain type: precordial pain Qualified Code(s): R07.2 - Precordial pain (5) Anemia in chronic kidney disease (CKD) Code(s): N18.9 - CHRONIC KIDNEY DISEASE, UNSPECIFIED; D63.1 - ANEMIA IN CHRONIC KIDNEY DISEASE Qualifiers: Chronic kidney disease stage: on chronic dialysis Qualified Code(s): N18.6 - End stage renal disease; D63.1 - Anemia in chronic kidney disease; Z99.2 - Dependence on renal dialysis (6) Diabetes Code(s): E11.9 - TYPE 2 DIABETES MELLITUS WITHOUT COMPLICATIONS Qualifiers: Diabetes mellitus type: type 2 Diabetes mellitus long-term insulin use: with long-term use Diabetes mellitus complication status: with skin complications Diabetes mellitus complication detail: with foot ulcer Qualified Code(s): E11.621 - Type 2 diabetes mellitus with foot ulcer (7) End stage renal disease on dialysis Code(s): N18.6 - END STAGE RENAL DISEASE; Z99.2 - DEPENDENCE ON RENAL DIALYSIS Assessment/Plan 07/16/2018 Echo: Normal LV size with mild cLVH and normal LV fn LVEF 65-70%, normal RV fxn, mild LAE, mild-mod MR, TR, mild [place] RVSP 61 mmHg 1. Dsypnea and chest pain referable to acute on chronic recurrent diastolic heart failure 2. ESRD on HD with hyperkalemia 3. +Troponins likely Demand Ischemia 4. Pulmonary HTN 5. Hypertensive heart disease 6. Type 2 DM 7. Anemia of CKD P: 1. Volume removal via HD, trops are downtrending 2. Increase carvedilol 12.5 bid with uptitration as tolerated, losartan 50 qd as hyperkalemia resolved, procardia XL 60 qd 3. Addressed importance of medication, diet and HD compliance 4. Outpatient CV evaluation given recurrent DCHF
[2018-07-19] MEDS ORDERED: PT OWN MED DRAWER 7, Y5N ONE ×2 (12:16→20:50)
--- NOTE | 2018-07-19 12:54 | PN ---
Progress Note (short form) - Note Progress Note: PULMONARY s/p HD this AM with improvement in her breathing. No significant cough. Vital Signs Period Temp Pulse Resp BP Sys/Rivera Pulse Ox Last 24 Hr 97.3 F-98.5 F 85-103 16-21 154-174/76-96 95-100 Intake & Output 07/16/18 07/17/18 07/18/18 07/19/18 23:59 23:59 23:59 23:59 Intake Total 720 120 Balance 720 120 Weight 92.986 kg 92.986 kg Gen: NAD, anxious Heart: RRR Lung: decreased breath sounds at the bases Abd: soft, nontender Ext: no edema CBC, BMP 07/18/18 05:25 07/19/18 05:30 Active Medications Albuterol Sulfate (Ventolin 0.083% Nebulizer Soln -) 1 amp NEB Q1H PRN PRN Reason: SHORT OF BREATH/WHEEZING Bisacodyl (Dulcolax -) 20 mg PO DAILY [facility] Last Admin: 07/18/18 10:44 Dose: 20 mg Buspirone HCl (Buspar -) 10 mg PO BID [facility] Last Admin: 07/18/18 22:32 Dose: 10 mg Calcium Acetate (Phoslo -) 667 mg PO TIDCM [facility] Last Admin: 07/18/18 16:58 Dose: 667 mg Carvedilol (Coreg -) 12.5 mg PO BID [facility] Heparin Sodium (Porcine) (Heparin -) 5,000 unit SQ TID [facility] Last Admin: 07/19/18 06:08 Dose: 5,000 unit Hydralazine HCl (Apresoline -) 100 mg PO TID [facility] Last Admin: 07/19/18 06:10 Dose: 100 mg Sodium Chloride (Normal Saline -) 250 mls @ 3,000 mls/hr IV PRN PRN PRN Reason: Hypotension during Dialysis Stop: 07/20/18 07:42 Insulin Aspart (Novolog Vial Sliding Scale -) 1 vial SQ [facility]; Protocol Last Admin: 07/19/18 12:07 Dose: 2 units Insulin Detemir (Levemir Vial) 15 units SQ HS [facility] Last Admin: 07/18/18 21:54 Dose: Not Given Lactic Acid (Lac-Hydrin 12) 1 applic TP BID [facility] Last Admin: 07/18/18 22:00 Dose: 1 applic Losartan Potassium (Cozaar -) 50 mg PO DAILY [facility] Last Admin: 07/18/18 10:44 Dose: 50 mg Melatonin (Melatonin) 3 mg PO HS [facility] Last Admin: 07/18/18 21:52 Dose: 3 mg Metoclopramide HCl (Reglan -) 10 mg PO TIDAC [facility] Last Admin: 07/19/18 06:10 Dose: 10 mg Nifedipine (Procardia Xl -) 60 mg PO DAILY [facility] Pantoprazole Sodium (Protonix -) 40 mg PO DAILY [facility] Polyethylene Glycol (Miralax (For Daily Use) -) 17 gm PO DAILY [facility] Ranitidine HCl (Zantac -) 150 mg PO DAILY [facility] Senna (Senna -) 2 tab PO HS [facility] Last Admin: 07/18/18 21:53 Dose: 2 tab Vitamin E (Vitamin E -) 400 unit PO DAILY [facility] A/P Acute on Chronic Diastolic Heart Failure Volume Overload ESRD on HD +Troponins likely Demand Ischemia Pulmonary HTN HTN DM - HD per renal with ultrafiltration - O2 to keep SpO2 >90% - daily weights - encourage fluid restriction and diet compliance - DVT prophylaxis
[2018-07-19] MEDS: CALCIUM ACETATE 667 MG CAPSULE (FP) PO SCH ×2 (12:59→17:11)
[2018-07-19] MEDS: busPIRone HCL 10 MG TABLET (FP) PO SCH ×2 (13:00→21:49)
[2018-07-19] MEDS: LOSARTAN POTASSIUM 50 MG TABLET (FP) PO SCH (13:01)
[2018-07-19] MEDS: BISACODYL 5 MG TABLET.DR (FP) PO SCH (13:02)
[2018-07-19] MEDS: NIFEdipine E.R 60 MG TABLET (UD) PO SCH (13:03)
[2018-07-19] MEDS: POLYETHYLENE GLYCOL 3350 119 GM BTL PO SCH (13:03)
[2018-07-19] MEDS: RANITIDINE HCL 150 MG TABLET (FP) PO SCH (13:04)
[2018-07-19] MEDS: PANTOPRAZOLE 40 MG TABLET (FP) PO SCH (13:04)
[2018-07-19] MEDS: VITAMIN E 400 INTERNATIONAL-UNITS CAPSULE (FP) PO SCH (13:05)
[2018-07-19] MEDS: CARVEDILOL 6.25 MG TABLET (FP) PO SCH ×2 (13:06→21:47)
[2018-07-19] MEDS: AMMONIUM LACTATE 12% LOTION 225 GM BOTTLE TP SCH ×2 (13:25→21:49)
--- NOTE | 2018-07-19 13:48 | PN ---
Teaching Attending Note Name of Resident: Cris Chavez ATTENDING PHYSICIAN STATEMENT I saw and evaluated the patient. I reviewed the resident's note and discussed the case with the resident. I agree with the resident's findings and plan as documented with exceptions below. SUBJECTIVE: Patient seen and examined. Still with dyspnea. No chest pain, abdominal or urinary symptoms. OBJECTIVE: Vital Signs Period Temp Pulse Resp BP Sys/Rivera Pulse Ox Last 24 Hr 97.3 F-98.5 F 85-103 16-21 154-174/76-96 95-100 Intake & Output 07/16/18 07/17/18 07/18/18 07/19/18 23:59 23:59 23:59 23:59 Intake Total 720 120 Balance 720 120 Weight 205 lb 205 lb General: sitting in bed, mild tachypnea Chest: decreased air entry, bibasilar rales Abdomen:Soft, obese, NT Extremities: pedal edema Home Medications Medication Instructions Recorded Ammonium Lactate Cream [Lac-Hydrin 1 applic TP BID 12/14/16 12% Cream -] Baclofen 10 mg PO HS 12/14/16 Bisacodyl [Bisacodyl -] 5 mg PO DAILY 12/14/16 Calcium Acetate 667 mg PO AC 12/14/16 Dexlansoprazole [Dexilant] 60 mg PO DAILY 12/14/16 Hydralazine HCl 100 mg PO TID 12/14/16 Melatonin 3 mg PO HS 12/14/16 Metoclopramide HCl [Reglan -] 10 mg PO TID 12/14/16 Nifedipine [Nifedipine ER] 60 mg PO DAILY 12/14/16 Quetiapine Fumarate [Seroquel -] 25 mg PO HS 12/14/16 Ramipril [Altace] 5 mg PO DAILY 12/14/16 Ranitidine [Zantac -] 150 mg PO DAILY 12/14/16 Sennosides [Senna -] 2 tab PO HS 12/14/16 Vitamin E 400 unit PO DAILY 12/14/16 Insulin (Levemir) [Levemir Vial] 20 units SQ HS #1 ml 12/16/16 Insulin (Levemir) [Levemir Vial] 35 units SQ AM #1 ml 12/16/16 Active Medications Albuterol Sulfate (Ventolin 0.083% Nebulizer Soln -) 1 amp NEB Q1H PRN PRN Reason: SHORT OF BREATH/WHEEZING Bisacodyl (Dulcolax -) 20 mg PO DAILY [facility] Last Admin: 07/19/18 13:02 Dose: 20 mg Buspirone HCl (Buspar -) 10 mg PO BID [facility] Last Admin: 07/19/18 13:00 Dose: 10 mg Calcium Acetate (Phoslo -) 667 mg PO TIDCM [facility] Last Admin: 07/19/18 12:59 Dose: 667 mg Carvedilol (Coreg -) 12.5 mg PO BID [facility] Last Admin: 07/19/18 13:06 Dose: 12.5 mg Heparin Sodium (Porcine) (Heparin -) 5,000 unit SQ TID [facility] Last Admin: 07/19/18 13:08 Dose: 5,000 unit Hydralazine HCl (Apresoline -) 100 mg PO TID [facility] Last Admin: 07/19/18 13:07 Dose: 100 mg Sodium Chloride (Normal Saline -) 250 mls @ 3,000 mls/hr IV PRN PRN PRN Reason: Hypotension during Dialysis Stop: 07/20/18 07:42 Insulin Aspart (Novolog Vial Sliding Scale -) 1 vial SQ [facility]; Protocol Last Admin: 07/19/18 12:07 Dose: 2 units Insulin Detemir (Levemir Vial) 15 units SQ [facility] Last Admin: 07/18/18 21:54 Dose: Not Given Lactic Acid (Lac-Hydrin 12) 1 applic TP BID [facility] Last Admin: 07/19/18 13:25 Dose: 1 applic Losartan Potassium (Cozaar -) 50 mg PO DAILY [facility] Last Admin: 07/19/18 13:01 Dose: 50 mg Melatonin (Melatonin) 3 mg PO HS [facility] Last Admin: 07/18/18 21:52 Dose: 3 mg Metoclopramide HCl (Reglan -) 10 mg PO TIDAC [facility] Last Admin: 07/19/18 11:05 Dose: 10 mg Nifedipine (Procardia Xl -) 60 mg PO DAILY [facility] Last Admin: 07/19/18 13:03 Dose: 60 mg Pantoprazole Sodium (Protonix -) 40 mg PO DAILY [facility] Last Admin: 07/19/18 13:04 Dose: 40 mg Polyethylene Glycol (Miralax (For Daily Use) -) 17 gm PO DAILY [facility] Last Admin: 07/19/18 13:03 Dose: Not Given Ranitidine HCl (Zantac -) 150 mg PO DAILY [facility] Last Admin: 07/19/18 13:04 Dose: 150 mg Senna (Senna -) 2 tab PO HS [facility] Last Admin: 07/18/18 21:53 Dose: 2 tab Vitamin E (Vitamin E -) 400 unit PO DAILY [facility] Last Admin: 07/19/18 13:05 Dose: 400 unit Laboratory Results - last 24 hr 07/18/18 07/18/18 07/18/18 16:51 20:30 21:20 Sodium Potassium Chloride Carbon Dioxide Anion Gap BUN Creatinine Creat Clearance w eGFR POC Glucometer 231 185 Random Glucose Calcium Troponin I 0.92 H* Triglycerides Cholesterol Total LDL Cholesterol HDL Cholesterol TSH 07/19/18 07/19/18 07/19/18 02:00 05:30 05:55 Sodium 139 Potassium 4.3 Chloride 102 Carbon Dioxide 30 Anion Gap 8 BUN 34 H Creatinine 4.6 H Creat Clearance w eGFR 10.01 POC Glucometer 218 Random Glucose 221 H Calcium 9.2 Troponin I 0.82 H* 0.69 H* Triglycerides 135 Cholesterol 177 Total LDL Cholesterol 97 HDL Cholesterol 55 TSH 2.73 07/19/18 12:05 Sodium Potassium Chloride Carbon Dioxide Anion Gap BUN Creatinine Creat Clearance w eGFR POC Glucometer 171 Random Glucose Calcium Troponin I Triglycerides Cholesterol Total LDL Cholesterol HDL Cholesterol TSH Microbiology 07/18/18 04:20 Blood - Arterial Blood Culture - Preliminary NO GROWTH OBTAINED AFTER 24 HOURS, INCUBATION TO CONTINUE FOR 4 DAYS. 07/17/18 23:21 Blood - Arterial Blood Culture - Preliminary NO GROWTH OBTAINED AFTER 24 HOURS, INCUBATION TO CONTINUE FOR 4 DAYS. ASSESSMENT AND PLAN: 52 yof with PMHx of IDDM, ESRD on HD, HTN, anxiety, admitted yesterday, with HTN when d/en after HD, non compliant with her meds re-admitted with Hypertensive emergency/Flash pulmonary edema -Hypertensive emergency, suspect from medication non compliance -Acute flash pulmonary edema, likely from above -Acute hypoxic respiratory failure -Acute diastolic Heart failure exacerbation -ESRD on HD -IDDM -Anxiety disorder Plan: repeat HD today with plan for fluid removal. S/p Nitro drip in ED, d/en now. Off bipap, doing well. Cardiology/nephrology input noted. Coreg increased. Continue nifedipine/hydralazine. ACei changed to ARB. Psychiatry input noted. Buspar bid started. seroquel d/en. Need for compliance stressed with patient. ISS, diabetic diet. Titrate levemir based on blood sugars and PO intake. DVTPPX heparin Dispo pending clinical improvement. Plan discussed with patient and nursing in detail, all questions answered.
--- NOTE | 2018-07-19 14:25 | PN ---
Physical Exam: SUBJECTIVE: Patient seen and examined; HD today; sob; anxious; trops trended down. OBJECTIVE: Vital Signs Period Temp Pulse Resp BP Sys/Rivera Pulse Ox Last 24 Hr 97.3 F-98.5 F 85-103 16-21 154-174/76-96 95-100 GENERAL: The patient is awake, alert, and fully oriented, getting HD LUNGS: Breath sounds equal, clear to auscultation bilaterally, no wheezes, no crackles, no accessory muscle use. HEART: Regular rate and rhythm, S1, S2 without murmur, rub or gallop. ABDOMEN: Soft, nontender, nondistended, normoactive bowel sounds, no guarding, no rebound, no hepatosplenomegaly, no masses. EXTREMITIES: 2+ pulses, warm, well-perfused, no edema. NEUROLOGICAL: anxious Laboratory Results - last 24 hr 07/18/18 07/18/18 07/18/18 16:51 20:30 21:20 Sodium Potassium Chloride Carbon Dioxide Anion Gap BUN Creatinine Creat Clearance w eGFR POC Glucometer 231 185 Random Glucose Calcium Troponin I 0.92 H* Triglycerides Cholesterol Total LDL Cholesterol HDL Cholesterol TSH 07/19/18 07/19/18 07/19/18 02:00 05:30 05:55 Sodium 139 Potassium 4.3 Chloride 102 Carbon Dioxide 30 Anion Gap 8 BUN 34 H Creatinine 4.6 H Creat Clearance w eGFR 10.01 POC Glucometer 218 Random Glucose 221 H Calcium 9.2 Troponin I 0.82 H* 0.69 H* Triglycerides 135 Cholesterol 177 Total LDL Cholesterol 97 HDL Cholesterol 55 TSH 2.73 07/19/18 12:05 Sodium Potassium Chloride Carbon Dioxide Anion Gap BUN Creatinine Creat Clearance w eGFR POC Glucometer 171 Random Glucose Calcium Troponin I Triglycerides Cholesterol Total LDL Cholesterol HDL Cholesterol TSH Active Medications Generic Name Dose Route Start Last Admin Trade Name Freq PRN Reason Stop Dose Admin Albuterol Sulfate 1 amp 07/18/18 08:16 Ventolin 0.083% Nebulizer Soln - NEB Q1H PRN SHORT OF BREATH/WHEEZING Bisacodyl 20 mg 07/18/18 10:00 07/19/18 13:02 Dulcolax - PO 20 mg DAILY VASQUEZ Administration Buspirone HCl 10 mg 07/18/18 22:00 07/19/18 13:00 Buspar - PO 10 mg BID VAS[facility]Z Administration Calcium Acetate 667 mg 07/18/18 12:00 07/19/18 12:59 Phoslo - PO 667 mg TIDCM VASQUEZ Administration Carvedilol 12.5 mg 07/19/18 12:00 07/19/18 13:06 Coreg - PO 12.5 mg BID [facility]Z Administration Heparin Sodium (Porcine) 5,000 unit 07/18/18 14:00 07/19/18 13:08 Heparin - SQ 5,000 unit TID [facility]AS[facility]Z Administration Hydralazine HCl 100 mg 07/18/18 22:00 07/19/18 13:07 Apresoline - PO 100 mg TID [facility]Z Administration Sodium Chloride 250 mls @ 3,000 mls/hr 07/19/18 07:41 Normal Saline - IV 07/20/18 07:42 PRN PRN Hypotension during Dialysis Insulin Aspart 1 vial 07/18/18 16:30 07/19/18 12:07 Novolog Vial Sliding Scale - SQ 2 units ACHS VASQUEZ Administration Protocol Insulin Detemir 15 units 07/18/18 22:00 07/18/18 21:54 Levemir Vial SQ Not Given HS VASQUEZ Lactic Acid 1 applic 07/18/18 22:00 07/19/18 13:25 Lac-Hydrin 12 TP 1 applic BID [facility]AS[facility]Z Administration Losartan Potassium 50 mg 07/18/18 10:15 07/19/18 13:01 Cozaar - PO 50 mg DAILY [facility] Administration Melatonin 3 mg 07/18/18 22:00 07/18/18 21:52 Melatonin PO 3 mg HS [facility] Administration Metoclopramide HCl 10 mg 07/18/18 11:00 07/19/18 11:05 Reglan - PO 10 mg TIDAC [facility] Administration Nifedipine 60 mg 07/19/18 10:00 07/19/18 13:03 Procardia Xl - PO 60 mg DAILY [facility] Administration Pantoprazole Sodium 40 mg 07/19/18 10:00 07/19/18 13:04 Protonix - PO 40 mg DAILY [facility] Administration Polyethylene Glycol 17 gm 07/19/18 10:00 07/19/18 13:03 Miralax (For Daily Use) - PO Not Given DAILY [facility] Ranitidine HCl 150 mg 07/19/18 10:00 07/19/18 13:04 Zantac - PO 150 mg DAILY [facility] Administration Senna 2 tab 07/18/18 22:00 07/18/18 21:53 Senna - PO 2 tab HS [facility] Administration Vitamin E 400 unit 07/19/18 10:00 07/19/18 13:05 Vitamin E - PO 400 unit DAILY [facility] Administration ASSESSMENT/PLAN: This is a 52 year old female with h/o HTN, DM, ESRD on HD, anxiety who present with shortness of breath and chest pain after recent discharge for volume overload. #shortness of breath due to vol overload; dchf; HTN #hypertensive emergency: -was on nifedipine drip; now off meds adjust ed as per cardio -carvedilol increased to 12 po bid uptitrate as needed -losartan 50mg po daily -procardia 60mg po daily -hydralazine; 100mg tid #Chest pain with troponemia; trending down -troponins; trend; with ecg; may be secondary to CKD or demand ischemia from tachycardia -ECHO; with pulm HTN; tricuspid regurg; diastolic chf; LV EF 65-70% -CTA negative #asthma: inhaled broncodilaotrs prn -outpatient pulm function test #ESRD: on HD- HD today -monitor bmp #anemia: sec to CKD; -s/p epogen; monitor cbc; iron stores #HTN #DM: -insulin ss -levemir HS increased to 20HS; due to high morning glucose levels #constipation: duculax VTE: hep ggt GI pplx: zantac Visit type - Emergency Visit Emergency Visit: Yes ED Registration Date: 07/18/18 Care time: The patient presented to the Emergency Department on the above date and was hospitalized for further evaluation of their emergent condition. - New Patient This patient is new to me today: No - Critical Care Critical Care patient: No
--- NOTE | 2018-07-19 14:27 | PN ---
Progress Note, Physician History of Present Illness: Pt seen and examined at bedside. She is awake and alert. She tolerated HD today. - Current Medication List Current Medications: Active Medications Albuterol Sulfate (Ventolin 0.083% Nebulizer Soln -) 1 amp NEB Q1H PRN PRN Reason: SHORT OF BREATH/WHEEZING Bisacodyl (Dulcolax -) 20 mg PO DAILY [facility] Last Admin: 07/19/18 13:02 Dose: 20 mg Buspirone HCl (Buspar -) 10 mg PO BID [facility] Last Admin: 07/19/18 13:00 Dose: 10 mg Calcium Acetate (Phoslo -) 667 mg PO TIDCM [facility] Last Admin: 07/19/18 12:59 Dose: 667 mg Carvedilol (Coreg -) 12.5 mg PO BID [facility] Last Admin: 07/19/18 13:06 Dose: 12.5 mg Heparin Sodium (Porcine) (Heparin -) 5,000 unit SQ TID [facility] Last Admin: 07/19/18 13:08 Dose: 5,000 unit Hydralazine HCl (Apresoline -) 100 mg PO TID [facility] Last Admin: 07/19/18 13:07 Dose: 100 mg Sodium Chloride (Normal Saline -) 250 mls @ 3,000 mls/hr IV PRN PRN PRN Reason: Hypotension during Dialysis Stop: 07/20/18 07:42 Insulin Aspart (Novolog Vial Sliding Scale -) 1 vial SQ [facility]; Protocol Last Admin: 07/19/18 12:07 Dose: 2 units Insulin Detemir (Levemir Vial) 15 units SQ [facility] Last Admin: 07/18/18 21:54 Dose: Not Given Lactic Acid (Lac-Hydrin 12) 1 applic TP BID [facility] Last Admin: 07/19/18 13:25 Dose: 1 applic Losartan Potassium (Cozaar -) 50 mg PO DAILY [facility] Last Admin: 07/19/18 13:01 Dose: 50 mg Melatonin (Melatonin) 3 mg PO HS [facility] Last Admin: 07/18/18 21:52 Dose: 3 mg Metoclopramide HCl (Reglan -) 10 mg PO TIDAC [facility] Last Admin: 07/19/18 11:05 Dose: 10 mg Nifedipine (Procardia Xl -) 60 mg PO DAILY [facility] Last Admin: 07/19/18 13:03 Dose: 60 mg Pantoprazole Sodium (Protonix -) 40 mg PO DAILY [facility] Last Admin: 07/19/18 13:04 Dose: 40 mg Polyethylene Glycol (Miralax (For Daily Use) -) 17 gm PO DAILY [facility] Last Admin: 07/19/18 13:03 Dose: Not Given Ranitidine HCl (Zantac -) 150 mg PO DAILY [facility] Last Admin: 07/19/18 13:04 Dose: 150 mg Senna (Senna -) 2 tab PO HS [facility] Last Admin: 07/18/18 21:53 Dose: 2 tab Vitamin E (Vitamin E -) 400 unit PO DAILY [facility] Last Admin: 07/19/18 13:05 Dose: 400 unit - Objective Vital Signs: Vital Signs Temperature 97.8 F 07/19/18 10:00 Pulse Rate 93 H 07/19/18 11:50 Respiratory Rate 18 07/19/18 11:50 Blood Pressure 163/90 07/19/18 11:50 O2 Sat by Pulse Oximetry (%) 98 07/19/18 09:00 Constitutional: Yes: Anxious Eyes: Yes: Conjunctiva Clear HENT: Yes: Atraumatic Cardiovascular: Yes: S1, S2 Respiratory: Yes: CTA Bilaterally Gastrointestinal: Yes: Soft Genitourinary: Yes: WNL Musculoskeletal: Yes: WNL Edema: No Neurological: Yes: Oriented Psychiatric: Yes: Oriented Labs: CBC, BMP 07/18/18 05:25 07/19/18 05:30 INR, PTT INR 0.97 (0.83-1.09) 07/17/18 23:21 Problem List - Problems (1) End stage kidney disease Code(s): N18.6 - END STAGE RENAL DISEASE Assessment/Plan Current Medications Generic Name Dose Route Start Last Admin Trade Name Freq PRN Reason Stop Dose Admin Albuterol Sulfate 1 amp 07/18/18 08:16 Ventolin 0.083% Nebulizer Soln - NEB Q1H PRN SHORT OF BREATH/WHEEZING Bisacodyl 20 mg 07/18/18 10:00 07/19/18 13:02 Dulcolax - PO 20 mg DAILY [facility] Administration Buspirone HCl 10 mg 07/18/18 22:00 07/19/18 13:00 Buspar - PO 10 mg BID [facility] Administration Calcium Acetate 667 mg 07/18/18 12:00 07/19/18 12:59 Phoslo - PO 667 mg TIDCM [facility] Administration Carvedilol 12.5 mg 07/19/18 12:00 07/19/18 13:06 Coreg - PO 12.5 mg BID [facility] Administration Heparin Sodium (Porcine) 5,000 unit 07/18/18 14:00 07/19/18 13:08 Heparin - SQ 5,000 unit TID [facility] Administration Hydralazine HCl 100 mg 07/18/18 22:00 07/19/18 13:07 Apresoline - PO 100 mg TID [facility] Administration Sodium Chloride 250 mls @ 3,000 mls/hr 07/19/18 07:41 Normal Saline - IV 07/20/18 07:42 PRN PRN Hypotension during Dialysis Insulin Aspart 1 vial 07/18/18 16:30 07/19/18 12:07 Novolog Vial Sliding Scale - SQ 2 units ACHS [facility]Z Administration Protocol Insulin Detemir 20 units 07/19/18 14:25 Levemir Vial SQ HS [facility]Z Lactic Acid 1 applic 07/18/18 22:00 07/19/18 13:25 Lac-Hydrin 12 TP 1 applic BID [facility] Administration Losartan Potassium 50 mg 07/18/18 10:15 07/19/18 13:01 Cozaar - PO 50 mg DAILY [facility] Administration Melatonin 3 mg 07/18/18 22:00 07/18/18 21:52 Melatonin PO 3 mg HS [facility] Administration Metoclopramide HCl 10 mg 07/18/18 11:00 07/19/18 11:05 Reglan - PO 10 mg TIDAC [facility] Administration Nifedipine 60 mg 07/19/18 10:00 07/19/18 13:03 Procardia Xl - PO 60 mg DAILY [facility] Administration Pantoprazole Sodium 40 mg 07/19/18 10:00 07/19/18 13:04 Protonix - PO 40 mg DAILY [facility] Administration Polyethylene Glycol 17 gm 07/19/18 10:00 07/19/18 13:03 Miralax (For Daily Use) - PO Not Given DAILY [facility]Z Ranitidine HCl 150 mg 07/19/18 10:00 07/19/18 13:04 Zantac - PO 150 mg DAILY [facility] Administration Senna 2 tab 07/18/18 22:00 07/18/18 21:53 Senna - PO 2 tab HS [facility] Administration Vitamin E 400 unit 07/19/18 10:00 07/19/18 13:05 Vitamin E - PO 400 unit DAILY [facility] Administration Impression 1. ESRD 2. DM 3. HTN 4. gastroparesis 5. nausea 6. anemia 7. peripheral neuropathy 8. sudden onset shortness of breath Plan - monitor bp - coreg increased - will arrange for HD again tomorrow - am cxr - cardo input appreciated - HD time 330 400 abf 2000 heparin - monitor bp - will follow Dr Arredondo
[2018-07-19] MEDS: SENNOSIDES 8.6MG TABLET (FP) PO SCH (21:47)
[2018-07-19] MEDS: INSULIN (LEVEMIR) 100 UNITS/ML UNITS SQ SCH (21:48)
[2018-07-19] MEDS: MELATONIN 1 MG TABLET PO SCH (21:50)
[2018-07-20] MEDS: METOCLOPRAMIDE HCL 10 MG TABLET (FP) PO SCH ×3 (06:09→17:35)
[2018-07-20] MEDS: HEPARIN NA (PORCINE) 5,000 UNITS/ML 1ML VIAL SQ SCH ×3 (06:09→22:25)
[2018-07-20] MEDS: hydrALAZINE HCL 50 MG TABLET (FP) PO SCH ×3 (06:09→22:24)
[2018-07-20] MEDS: INSULIN SLIDING SCALE (NOVOLOG) 1 VIAL SQ SCH ×4 (06:10→22:25)
[2018-07-20] MEDS ORDERED: SODIUM CHLORIDE 250 ML IV PRN (06:49)
[2018-07-20] MEDS ORDERED: HEPARIN NA (PORCINE) 5,000 UNITS/ML 1ML VIAL IVPUSH ONE (07:00)
[2018-07-20] MEDS: CALCIUM ACETATE 667 MG CAPSULE (FP) PO SCH ×3 (07:54→17:35)
[2018-07-20] MEDS ORDERED: EPOETIN ALFA 2,000 UNIT/1 ML VIAL IVPUSH ONE (08:00)
[2018-07-20] MEDS: HEPARIN NA (PORCINE) 5,000 UNITS/ML 1ML VIAL IVPUSH SCH ×2 (08:00→09:00)
[2018-07-20 08:32] LABS: HEMATOCRIT 28.4 % (32.4-45.2); HEMOGLOBIN 9.2 GM/dL (10.7-15.3); MCH 31.2 pg (25.7-33.7); MCHC 32.3 g/dl (32.0-36.0); MEAN CELL VOLUME 96.6 fl (80-96); MEAN PLT VOLUME 9.5 fl (7.5-11.1); PLATELET COUNT 266 K/MM3 (134-434); RBC 2.94 M/mm3 (3.60-5.2); RDW 14.4 % (11.6-15.6); WHITE BLOOD COUNT 6.8 K/mm3 (4.0-10.0)
[2018-07-20] MEDS ORDERED: PT OWN MED DRAWER 7, Y5N ONE ×2 (09:00→18:57)
--- NOTE | 2018-07-20 10:01 | PN ---
Progress Note, Physician History of Present Illness: Resting on NIPPV undergoing HD. - Current Medication List Current Medications: Active Medications Albuterol Sulfate (Ventolin 0.083% Nebulizer Soln -) 1 amp NEB Q1H PRN PRN Reason: SHORT OF BREATH/WHEEZING Bisacodyl (Dulcolax -) 20 mg PO DAILY [facility] Last Admin: 07/19/18 13:02 Dose: 20 mg Buspirone HCl (Buspar -) 10 mg PO BID [facility] Last Admin: 07/19/18 21:49 Dose: 10 mg Calcium Acetate (Phoslo -) 667 mg PO TIDCM [facility] Last Admin: 07/20/18 07:54 Dose: 667 mg Carvedilol (Coreg -) 25 mg PO BID [facility] Heparin Sodium (Porcine) (Heparin -) 5,000 unit SQ TID [facility] Last Admin: 07/20/18 06:09 Dose: 5,000 unit Heparin Sodium (Porcine) (Heparin -) 500 unit IVPUSH Q1H [facility] Stop: 07/20/18 10:01 Last Admin: 07/20/18 09:00 Dose: 500 unit Hydralazine HCl (Apresoline -) 100 mg PO TID [facility] Last Admin: 07/20/18 06:09 Dose: 100 mg Sodium Chloride (Normal Saline -) 250 mls @ 3,000 mls/hr IV PRN PRN PRN Reason: Hypotension during Dialysis Stop: 07/20/18 15:00 Insulin Aspart (Novolog Vial Sliding Scale -) 1 vial SQ [facility]; Protocol Last Admin: 07/20/18 06:10 Dose: Not Given Insulin Detemir (Levemir Vial) 20 units SQ HS [facility] Last Admin: 07/19/18 21:48 Dose: 20 units Lactic Acid (Lac-Hydrin 12) 1 applic TP BID [facility] Last Admin: 07/19/18 21:49 Dose: Not Given Losartan Potassium (Cozaar -) 50 mg PO DAILY [facility] Last Admin: 07/19/18 13:01 Dose: 50 mg Melatonin (Melatonin) 3 mg PO HS [facility] Last Admin: 07/19/18 21:50 Dose: 3 mg Metoclopramide HCl (Reglan -) 10 mg PO TIDAC [facility] Last Admin: 07/20/18 06:09 Dose: 10 mg Nifedipine (Procardia Xl -) 60 mg PO DAILY [facility] Last Admin: 07/19/18 13:03 Dose: 60 mg Pantoprazole Sodium (Protonix -) 40 mg PO DAILY [facility] Last Admin: 07/19/18 13:04 Dose: 40 mg Polyethylene Glycol (Miralax (For Daily Use) -) 17 gm PO DAILY [facility] Last Admin: 07/19/18 13:03 Dose: Not Given Ranitidine HCl (Zantac -) 150 mg PO DAILY [facility] Last Admin: 07/19/18 13:04 Dose: 150 mg Senna (Senna -) 2 tab PO HS [facility] Last Admin: 07/19/18 21:47 Dose: 2 tab Vitamin E (Vitamin E -) 400 unit PO DAILY [facility] Last Admin: 07/19/18 13:05 Dose: 400 unit - Objective Vital Signs: Vital Signs Temperature 98.3 F 07/20/18 06:00 Pulse Rate 92 H 07/20/18 08:55 Respiratory Rate 18 07/20/18 08:55 Blood Pressure 170/84 07/20/18 08:55 O2 Sat by Pulse Oximetry (%) 96 07/20/18 07:30 Constitutional: Yes: No Distress, Calm Neck: Yes: Supple Cardiovascular: Yes: Regular Rate and Rhythm Respiratory: Yes: Regular, Diminished, On BiPap Gastrointestinal: Yes: Normal Bowel Sounds, Soft, Abdomen, Obese Edema: No Labs: CBC, BMP 07/20/18 07:00 07/19/18 05:30 INR, PTT INR 0.97 (0.83-1.09) 07/17/18 23:21 - ....Imaging Chest X-ray: Report Reviewed (Improving congestion) EKG: Report Reviewed (Tele: NSR) Problem List - Problems (1) Hypertensive heart disease Code(s): I11.9 - HYPERTENSIVE HEART DISEASE WITHOUT HEART FAILURE Qualifiers: Heart failure presence: with heart failure Heart failure type: diastolic Heart failure chronicity: acute on chronic Qualified Code(s): I11.0 - Hypertensive heart disease with heart failure; I50.33 - Acute on chronic diastolic (congestive) heart failure (2) Demand ischemia Code(s): I24.8 - OTHER FORMS OF ACUTE ISCHEMIC HEART DISEASE (3) Acute pulmonary edema Code(s): J81.0 - ACUTE PULMONARY EDEMA (4) Chest pain Code(s): R07.9 - CHEST PAIN, UNSPECIFIED Qualifiers: Chest pain type: precordial pain Qualified Code(s): R07.2 - Precordial pain (5) Anemia in chronic kidney disease (CKD) Code(s): N18.9 - CHRONIC KIDNEY DISEASE, UNSPECIFIED; D63.1 - ANEMIA IN CHRONIC KIDNEY DISEASE Qualifiers: Chronic kidney disease stage: on chronic dialysis Qualified Code(s): N18.6 - End stage renal disease; D63.1 - Anemia in chronic kidney disease; Z99.2 - Dependence on renal dialysis (6) Diabetes Code(s): E11.9 - TYPE 2 DIABETES MELLITUS WITHOUT COMPLICATIONS Qualifiers: Diabetes mellitus type: type 2 Diabetes mellitus vermin exterminator insulin use: with vermin exterminator use Diabetes mellitus complication status: with skin complications Diabetes mellitus complication detail: with foot ulcer Qualified Code(s): E11.621 - Type 2 diabetes mellitus with foot ulcer (7) End stage renal disease on dialysis Code(s): N18.6 - END STAGE RENAL DISEASE; Z99.2 - DEPENDENCE ON RENAL DIALYSIS Assessment/Plan 07/16/2018 Echo: Normal LV size with mild cLVH and normal LV fn LVEF 65-70%, normal RV fxn, mild LAE, mild-mod MR, TR, mild OK RVSP 61 mmHg 1. Dsypnea and chest pain referable to acute on chronic recurrent diastolic heart failure improving 2. ESRD on HD with resolved hyperkalemia 3. +Troponins referable to Demand Ischemia 4. Pulmonary HTN 5. 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 Anemia of CKD P: 1. Volume removal via HD, trops are downtrending 2. Increase carvedilol 25 bid, losartan 100 qd as hyperkalemia resolved, procardia XL 60 qd on hydralazine 3. Addressed importance of medication, diet and HD compliance 4. Outpatient CV evaluation given recurrent DCHF
[2018-07-20] MEDS ORDERED: LOSARTAN POTASSIUM 50 MG TABLET (FP) PO SCH (10:05)
--- NOTE | 2018-07-20 11:19 | PN ---
Progress Note, Physician History of Present Illness: pulmonary alert,on nasal cannula,less dyspneic. pt currently on hd - Current Medication List Current Medications: Active Medications Albuterol Sulfate (Ventolin 0.083% Nebulizer Soln -) 1 amp NEB Q1H PRN PRN Reason: SHORT OF BREATH/WHEEZING Bisacodyl (Dulcolax -) [address] [facility] Last Admin: 07/19/18 13:02 Dose: 20 mg Buspirone HCl (Buspar -) [address] [facility] Last Admin: 07/19/18 21:49 Dose: 10 mg Calcium Acetate (Phoslo -) [address] [facility] Last Admin: 07/20/18 07:54 Dose: 667 mg Carvedilol (Coreg -) [address] [facility] Heparin Sodium (Porcine) (Heparin -) 5,[address] [facility] Last Admin: 07/20/18 06:09 Dose: 5,000 unit Hydralazine HCl (Apresoline -) [address] [facility] Last Admin: 07/20/18 06:09 Dose: 100 mg Sodium Chloride (Normal Saline -) 250 mls @ 3,000 mls/hr IV PRN PRN PRN Reason: Hypotension during Dialysis Stop: 07/20/18 15:00 Insulin Aspart (Novolog Vial Sliding Scale -) 1 vial SQ [facility]; Protocol Last Admin: 07/20/18 06:10 Dose: Not Given Insulin Detemir (Levemir Vial) [address] [facility] Last Admin: 07/19/18 21:48 Dose: 20 units Lactic Acid (Lac-Hydrin 12) [address] [facility] Last Admin: 07/19/18 21:49 Dose: Not Given Losartan Potassium (Cozaar -) [address] [facility] Melatonin (Melatonin) [address] [facility] Last Admin: 07/19/18 21:50 Dose: 3 mg Metoclopramide HCl (Reglan -) [address] [facility] Last Admin: 07/20/18 06:09 Dose: 10 mg Nifedipine (Procardia Xl -) [address] [facility] Last Admin: 07/19/18 13:03 Dose: 60 mg Pantoprazole Sodium (Protonix -) [address] [facility] Last Admin: 07/19/18 13:04 Dose: 40 mg Polyethylene Glycol (Miralax (For Daily Use) -) [address] [facility] Last Admin: 07/19/18 13:03 Dose: Not Given Ranitidine HCl (Zantac -) [address] [facility] Last Admin: 07/19/18 13:04 Dose: 150 mg Senna (Senna -) [address] [facility] Last Admin: 07/19/18 21:47 Dose: 2 tab Vitamin E (Vitamin E -) [address] [facility] Last Admin: 07/19/18 13:05 Dose: 400 unit - Objective Vital Signs: Vital Signs Temperature 98.0 F 07/20/18 10:00 Pulse Rate 95 H 07/20/18 10:55 Respiratory Rate 18 07/20/18 10:55 Blood Pressure 166/77 07/20/18 10:55 O2 Sat by Pulse Oximetry (%) 96 07/20/18 09:00 Constitutional: Yes: Well Nourished, Calm Eyes: Yes: WNL HENT: Yes: WNL Neck: Yes: WNL Cardiovascular: Yes: Regular Rate and Rhythm, S1, S2 Respiratory: Yes: Diminished Gastrointestinal: Yes: Normal Bowel Sounds, Soft Extremities: Yes: WNL Edema: Yes Labs: - ....Imaging Chest X-ray: Report Reviewed, Image Reviewed (less congestion) Problem List - Problems (1) Acute pulmonary edema Code(s): J81.0 - ACUTE PULMONARY EDEMA (2) Hypertensive heart disease Code(s): I11.9 - HYPERTENSIVE HEART DISEASE WITHOUT HEART FAILURE Qualifiers: Heart failure presence: with heart failure Heart failure type: diastolic Heart failure chronicity: acute on chronic Qualified Code(s): I11.0 - Hypertensive heart disease with heart failure; I50.33 - Acute on chronic diastolic (congestive) heart failure (3) End stage kidney disease Code(s): N18.6 - END STAGE RENAL DISEASE (4) GERD (gastroesophageal reflux disease) Code(s): K21.9 - GASTRO-ESOPHAGEAL REFLUX DISEASE WITHOUT ESOPHAGITIS (5) Gastroparesis Code(s): K31.84 - GASTROPARESIS (6) Shortness of breath Code(s): R06.02 - SHORTNESS OF BREATH (7) Type 1 diabetes mellitus with diabetic chronic kidney disease Code(s): E10.22 - TYPE 1 DIABETES MELLITUS W DIABETIC CHRONIC KIDNEY DISEASE; N18.9 - CHRONIC KIDNEY DISEASE, UNSPECIFIED (8) Type 1 diabetes mellitus with diabetic nephropathy Code(s): E10.21 - TYPE 1 DIABETES MELLITUS WITH DIABETIC NEPHROPATHY (9) End stage renal disease on dialysis Code(s): N18.6 - END STAGE RENAL DISEASE; Z99.2 - DEPENDENCE ON RENAL DIALYSIS (10) HTN (hypertension) Code(s): I10 - ESSENTIAL (PRIMARY) HYPERTENSION Qualifiers: Hypertension type: essential hypertension Qualified Code(s): I10 - Essential (primary) hypertension (11) Smoking greater than 20 pack years Code(s): F17.210 - NICOTINE DEPENDENCE, CIGARETTES, UNCOMPLICATED Assessment/Plan IMP ACUTE RESPIRATORY FAILURE IMPROVED VOLUME OVERLOAD ESRD ON HD HTN DM ASTHMA NEUROPATHY GASTROPARESIS GERD TOBACCO ABUSE + TROPONIN PULMONARY HTN PLAN O2 HD PER RENAL INHALED BRONCHODILATORS PRN F/U CHEST X-RAY COMPLIANCE WITH MEDS SMOKING CESSATION COUNSELED PFTS OUTPATIENT DAILY WT DR [place]UMBO Problem List - Problems (1) Acute pulmonary edema Code(s): J81.0 - ACUTE PULMONARY EDEMA (2) Hypertensive heart disease Code(s): I11.9 - HYPERTENSIVE HEART DISEASE WITHOUT HEART FAILURE Qualifiers: Heart failure presence: with heart failure Heart failure type: diastolic Heart failure chronicity: acute on chronic Qualified Code(s): I11.0 - Hypertensive heart disease with heart failure; I50.33 - Acute on chronic diastolic (congestive) heart failure (3) End stage kidney disease Code(s): N18.6 - END STAGE RENAL DISEASE (4) GERD (gastroesophageal reflux disease) Code(s): K21.9 - GASTRO-ESOPHAGEAL REFLUX DISEASE WITHOUT ESOPHAGITIS (5) Gastroparesis Code(s): K31.84 - GASTROPARESIS (6) Shortness of breath Code(s): R06.02 - SHORTNESS OF BREATH (7) Type 1 diabetes mellitus with diabetic chronic kidney disease Code(s): E10.22 - TYPE 1 DIABETES MELLITUS W DIABETIC CHRONIC KIDNEY DISEASE; N18.9 - CHRONIC KIDNEY DISEASE, UNSPECIFIED (8) Type 1 diabetes mellitus with diabetic nephropathy Code(s): E10.21 - TYPE 1 DIABETES MELLITUS WITH DIABETIC NEPHROPATHY (9) End stage renal disease on dialysis Code(s): N18.6 - END STAGE RENAL DISEASE; Z99.2 - DEPENDENCE ON RENAL DIALYSIS (10) HTN (hypertension) Code(s): I10 - ESSENTIAL (PRIMARY) HYPERTENSION Qualifiers: Hypertension type: essential hypertension Qualified Code(s): I10 - Essential (primary) hypertension (11) Smoking greater than 20 pack years Code(s): F17.210 - NICOTINE DEPENDENCE, CIGARETTES, UNCOMPLICATED
[2018-07-20] MEDS: BISACODYL 5 MG TABLET.DR (FP) PO SCH (12:10)
[2018-07-20] MEDS: RANITIDINE HCL 150 MG TABLET (FP) PO SCH (12:11)
[2018-07-20] MEDS: CARVEDILOL 25 MG TABLET (FP) PO SCH ×2 (12:11→22:24)
[2018-07-20] MEDS: POLYETHYLENE GLYCOL 3350 119 GM BTL PO SCH (12:12)
[2018-07-20] MEDS: PANTOPRAZOLE 40 MG TABLET (FP) PO SCH (12:12)
[2018-07-20] MEDS: busPIRone HCL 10 MG TABLET (FP) PO SCH ×2 (12:13→22:30)
[2018-07-20] MEDS: VITAMIN E 400 INTERNATIONAL-UNITS CAPSULE (FP) PO SCH (12:13)
[2018-07-20] MEDS: AMMONIUM LACTATE 12% LOTION 225 GM BOTTLE TP SCH ×2 (12:14→22:25)
[2018-07-20] MEDS: NIFEdipine E.R 60 MG TABLET (UD) PO SCH (12:14)
--- NOTE | 2018-07-20 15:07 | PN ---
Progress Note, Physician History of Present Illness: Pt seen and examined at bedside. She tolerated HD today. - Current Medication List Current Medications: Active Medications Albuterol Sulfate (Ventolin 0.083% Nebulizer Soln -) 1 amp NEB Q1H PRN PRN Reason: SHORT OF BREATH/WHEEZING Bisacodyl (Dulcolax -) 20 mg PO DAILY [facility] Last Admin: 07/20/18 12:10 Dose: 20 mg Buspirone HCl (Buspar -) 10 mg PO BID [facility] Last Admin: 07/20/18 12:13 Dose: 10 mg Calcium Acetate (Phoslo -) 667 mg PO TIDCM [facility] Last Admin: 07/20/18 12:10 Dose: 667 mg Carvedilol (Coreg -) 25 mg PO BID [facility] Last Admin: 07/20/18 12:11 Dose: 25 mg Heparin Sodium (Porcine) (Heparin -) 5,000 unit SQ TID [facility] Last Admin: 07/20/18 14:09 Dose: 5,000 unit Hydralazine HCl (Apresoline -) 100 mg PO TID [facility] Last Admin: 07/20/18 14:09 Dose: 100 mg Insulin Aspart (Novolog Vial Sliding Scale -) 1 vial SQ [facility]; Protocol Last Admin: 07/20/18 12:17 Dose: 2 units Insulin Detemir (Levemir Vial) 20 units SQ [facility] Last Admin: 07/19/18 21:48 Dose: 20 units Lactic Acid (Lac-Hydrin 12) 1 applic TP BID [facility] Last Admin: 07/20/18 12:14 Dose: 1 applic Losartan Potassium (Cozaar -) 100 mg PO DAILY [facility] Melatonin (Melatonin) 3 mg PO HS [facility] Last Admin: 07/19/18 21:50 Dose: 3 mg Metoclopramide HCl (Reglan -) 10 mg PO TIDAC [facility] Last Admin: 07/20/18 12:10 Dose: 10 mg Nifedipine (Procardia Xl -) 60 mg PO DAILY [facility] Last Admin: 07/20/18 12:14 Dose: 60 mg Pantoprazole Sodium (Protonix -) 40 mg PO DAILY [facility] Last Admin: 07/20/18 12:12 Dose: 40 mg Polyethylene Glycol (Miralax (For Daily Use) -) 17 gm PO DAILY [facility] Last Admin: 07/20/18 12:12 Dose: 17 grams Ranitidine HCl (Zantac -) 150 mg PO DAILY [facility] Last Admin: 07/20/18 12:11 Dose: 150 mg Senna (Senna -) 2 tab PO HS [facility] Last Admin: 07/19/18 21:47 Dose: 2 tab Vitamin E (Vitamin E -) 400 unit PO DAILY [facility] Last Admin: 07/20/18 12:13 Dose: 400 unit - Objective Vital Signs: Vital Signs Temperature 98.0 F 07/20/18 10:00 Pulse Rate 95 H 07/20/18 11:40 Respiratory Rate 18 07/20/18 11:40 Blood Pressure 169/85 07/20/18 11:40 O2 Sat by Pulse Oximetry (%) 96 07/20/18 09:00 Constitutional: Yes: Anxious Eyes: Yes: Conjunctiva Clear Cardiovascular: Yes: S1, S2 Respiratory: Yes: CTA Bilaterally Gastrointestinal: Yes: Soft, Abdomen, Obese Genitourinary: Yes: WNL Musculoskeletal: Yes: WNL Edema: No Neurological: Yes: Oriented Psychiatric: Yes: Oriented Labs: CBC, BMP 07/20/18 07:00 07/19/18 05:30 INR, PTT INR 0.97 (0.83-1.09) 07/17/18 23:21 Problem List - Problems (1) End stage kidney disease Code(s): N18.6 - END STAGE RENAL DISEASE Assessment/Plan Current Medications Generic Name Dose Route Start Last Admin Trade Name Freq PRN Reason Stop Dose Admin Albuterol Sulfate 1 amp 07/18/18 08:16 Ventolin 0.083% Nebulizer Soln - NEB Q1H PRN SHORT OF BREATH/WHEEZING Bisacodyl 20 mg 07/18/18 10:00 07/20/18 12:10 Dulcolax - PO 20 mg DAILY [facility] Administration Buspirone HCl 10 mg 07/18/18 22:00 07/20/18 12:13 Buspar - PO 10 mg BID [facility] Administration Calcium Acetate 667 mg 07/18/18 12:00 07/20/18 12:10 Phoslo - PO 667 mg TIDCM [facility] Administration Carvedilol 25 mg 07/20/18 10:00 07/20/18 12:11 Coreg - PO 25 mg BID [facility] Administration Heparin Sodium (Porcine) 5,000 unit 07/18/18 14:00 07/20/18 14:09 Heparin - SQ 5,000 unit TID [facility] Administration Hydralazine HCl 100 mg 07/18/18 22:00 07/20/18 14:09 Apresoline - PO 100 mg TID [facility] Administration Insulin Aspart 1 vial 07/18/18 16:30 07/20/18 12:17 Novolog Vial Sliding Scale - SQ 2 units ACHS [facility] Administration Protocol Insulin Detemir 20 units 07/19/18 14:25 07/19/18 21:48 Levemir Vial SQ 20 units HS [facility] Administration Lactic Acid 1 applic 07/18/18 22:00 07/20/18 12:14 Lac-Hydrin 12 TP 1 applic BID [facility] Administration Losartan Potassium 100 mg 07/20/18 10:05 Cozaar - PO DAILY [facility] Melatonin 3 mg 07/18/18 22:00 07/19/18 21:50 Melatonin PO 3 mg HS [facility] Administration Metoclopramide HCl 10 mg 07/18/18 11:00 07/20/18 12:10 Reglan - PO 10 mg TIDAC [facility] Administration Nifedipine 60 mg 07/19/18 10:00 07/20/18 12:14 Procardia Xl - PO 60 mg DAILY [facility] Administration Pantoprazole Sodium 40 mg 07/19/18 10:00 07/20/18 12:12 Protonix - PO 40 mg DAILY [facility] Administration Polyethylene Glycol 17 gm 07/19/18 10:00 07/20/18 12:12 Miralax (For Daily Use) - PO 17 grams DAILY [facility] Administration Ranitidine HCl 150 mg 07/19/18 10:00 07/20/18 12:11 Zantac - PO 150 mg DAILY [facility] Administration Senna 2 tab 07/18/18 22:00 07/19/18 21:47 Senna - PO 2 tab HS [facility] Administration Vitamin E 400 unit 07/19/18 10:00 07/20/18 12:13 Vitamin E - PO 400 unit DAILY [facility] Administration Impression 1. ESRD 2. DM 3. HTN 4. gastroparesis 5. nausea 6. anemia 7. peripheral neuropathy 8. sudden onset shortness of breath Plan - pt tolerated HD - cxr reviewed, improved - bp is not optimal - monitor bp as meds adjusted - HD time 330 400 abf 2000 heparin - monitor bp - will follow Dr Arredondo
--- NOTE | 2018-07-20 15:17 | PN ---
Teaching Attending Note Name of Resident: Cris Chavez ATTENDING PHYSICIAN STATEMENT I saw and evaluated the patient. I reviewed the resident's note and discussed the case with the resident. I agree with the resident's findings and plan as documented with exceptions below. SUBJECTIVE: Patient seen and examined. on NIPPV getting HD. Breathing better, no new complaints. OBJECTIVE: Vital Signs Period Temp Pulse Resp BP Sys/Rivera Pulse Ox Last 24 Hr 98.0 F-99.3 F 60-95 18-20 146-194/68-107 96-99 Intake & Output 07/17/18 07/18/18 07/19/18 07/20/18 23:59 23:59 23:59 23:59 Intake Total 720 840 240 Balance 720 840 240 Weight 205 lb 205 lb General: sitting on bipap in bed, more comfortable than yesterday Chest: decreased air entry all over, no rales or wheezing Abdomen:Soft obese NT Extremities: trace pedal edema Home Medications Medication Instructions Recorded Ammonium Lactate Cream [Lac-Hydrin 1 applic TP BID 12/14/16 12% Cream -] Baclofen 10 mg PO HS 12/14/16 Bisacodyl [Bisacodyl -] 5 mg PO DAILY 12/14/16 Calcium Acetate 667 mg PO AC 12/14/16 Dexlansoprazole [Dexilant] 60 mg PO DAILY 12/14/16 Hydralazine HCl 100 mg PO TID 12/14/16 Melatonin 3 mg PO HS 12/14/16 Metoclopramide HCl [Reglan -] 10 mg PO TID 12/14/16 Nifedipine [Nifedipine ER] 60 mg PO DAILY 12/14/16 Quetiapine Fumarate [Seroquel -] 25 mg PO HS 12/14/16 Ramipril [Altace] 5 mg PO DAILY 12/14/16 Ranitidine [Zantac -] 150 mg PO DAILY 12/14/16 Sennosides [Senna -] 2 tab PO HS 12/14/16 Vitamin E 400 unit PO DAILY 12/14/16 Insulin (Levemir) [Levemir Vial] 20 units SQ HS #1 ml 12/16/16 Insulin (Levemir) [Levemir Vial] 35 units SQ AM #1 ml 12/16/16 Active Medications Albuterol Sulfate (Ventolin 0.083% Nebulizer Soln -) 1 amp NEB Q1H PRN PRN Reason: SHORT OF BREATH/WHEEZING Bisacodyl (Dulcolax -) 20 mg PO DAILY [facility] Last Admin: 07/20/18 12:10 Dose: 20 mg Buspirone HCl (Buspar -) 10 mg PO BID [facility] Last Admin: 07/20/18 12:13 Dose: 10 mg Calcium Acetate (Phoslo -) 667 mg PO TIDCM [facility] Last Admin: 07/20/18 12:10 Dose: 667 mg Carvedilol (Coreg -) 25 mg PO BID [facility] Last Admin: 07/20/18 12:11 Dose: 25 mg Heparin Sodium (Porcine) (Heparin -) 5,000 unit SQ TID [facility] Last Admin: 07/20/18 14:09 Dose: 5,000 unit Hydralazine HCl (Apresoline -) 100 mg PO TID [facility] Last Admin: 07/20/18 14:09 Dose: 100 mg Insulin Aspart (Novolog Vial Sliding Scale -) 1 vial SQ [facility]; Protocol Last Admin: 07/20/18 12:17 Dose: 2 units Insulin Detemir (Levemir Vial) 20 units SQ [facility] Last Admin: 07/19/18 21:48 Dose: 20 units Lactic Acid (Lac-Hydrin 12) 1 applic TP BID [facility] Last Admin: 07/20/18 12:14 Dose: 1 applic Losartan Potassium (Cozaar -) 100 mg PO DAILY [facility] Melatonin (Melatonin) 3 mg PO [facility] Last Admin: 07/19/18 21:50 Dose: 3 mg Metoclopramide HCl (Reglan -) 10 mg PO TIDAC [facility] Last Admin: 07/20/18 12:10 Dose: 10 mg Nifedipine (Procardia Xl -) 60 mg PO DAILY [facility] Last Admin: 07/20/18 12:14 Dose: 60 mg Pantoprazole Sodium (Protonix -) 40 mg PO DAILY [facility] Last Admin: 07/20/18 12:12 Dose: 40 mg Polyethylene Glycol (Miralax (For Daily Use) -) 17 gm PO DAILY [facility] Last Admin: 07/20/18 12:12 Dose: 17 grams Ranitidine HCl (Zantac -) 150 mg PO DAILY [facility] Last Admin: 07/20/18 12:11 Dose: 150 mg Senna (Senna -) 2 tab PO [facility] Last Admin: 07/19/18 21:47 Dose: 2 tab Vitamin E (Vitamin E -) 400 unit PO DAILY [facility] Last Admin: 07/20/18 12:13 Dose: 400 unit Laboratory Results - last 24 hr 07/19/18 07/19/18 07/20/18 17:04 21:42 01:14 WBC RBC Hgb Hct MCV MCH MCHC RDW Plt Count MPV POC Glucometer 264 256 138 07/20/18 07/20/18 07/20/18 05:13 07:00 12:09 WBC 6.8 RBC 2.94 L Hgb 9.2 L Hct 28.4 L MCV 96.6 H MCH 31.2 MCHC 32.3 RDW 14.4 Plt Count 266 MPV 9.5 POC Glucometer 83 178 ASSESSMENT AND PLAN: 52 yof with PMHx of IDDM, ESRD on HD, HTN, anxiety, admitted yesterday, with HTN when d/en after HD, non compliant with her meds re-admitted with Hypertensive emergency/Flash pulmonary edema -Hypertensive emergency, suspect from medication non compliance -Acute flash pulmonary edema, likely from above -Acute hypoxic respiratory failure -Acute diastolic Heart failure exacerbation -ESRD on HD -IDDM -Anxiety disorder Plan: Daily HD for now for fluid removal. Still BP high. Increase coreg to 25 mg BID. Continue nifedipine/hydralazine. ACEi changed to ARB. S/p Nitro drip in ED, d/en now. Bipap prn. Cardiology/nephrology input noted. Psychiatry input noted. Buspar bid started. seroquel d/en. Need for compliance stressed with patient. ISS, diabetic diet. Titrate levemir based on blood sugars and PO intake. DVTPPX heparin Dispo pending clinical improvement, improved BP and volume status. Plan discussed with patient and nursing in detail, all questions answered.
--- NOTE | 2018-07-20 19:15 | PN ---
Physical Exam: SUBJECTIVE: Patient seen and examined OBJECTIVE: Vital Signs Period Temp Pulse Resp BP Sys/Rivera Pulse Ox Last 24 Hr 98.0 F-99.3 F 60-95 17-20 146-194/68-107 96-99 GENERAL: The patient is awake, alert, and fully oriented, in no acute distress. HEAD: Normal with no signs of trauma. EYES: PERRL, extraocular movements intact, sclera anicteric, conjunctiva clear. No ptosis. ENT: Ears normal, nares patent, oropharynx clear without exudates, moist mucous membranes. NECK: Trachea midline, full range of motion, supple. LUNGS: Breath sounds equal, clear to auscultation bilaterally, no wheezes, no crackles, no accessory muscle use. HEART: Regular rate and rhythm, S1, S2 without murmur, rub or gallop. ABDOMEN: Soft, nontender, nondistended, normoactive bowel sounds, no guarding, no rebound, no hepatosplenomegaly, no masses. EXTREMITIES: 2+ pulses, warm, well-perfused, no edema. NEUROLOGICAL: Cranial nerves II through XII grossly intact. Normal speech, gait not observed. PSYCH: Normal mood, normal affect. SKIN: Warm, dry, normal turgor, no rashes or lesions noted Laboratory Results - last 24 hr 07/19/18 07/20/18 07/20/18 21:42 01:14 05:13 WBC RBC Hgb Hct MCV MCH MCHC RDW Plt Count MPV POC Glucometer 256 138 83 07/20/18 07/20/18 07/20/18 07:00 12:09 17:29 WBC 6.8 RBC 2.94 L Hgb 9.2 L Hct 28.4 L MCV 96.6 H MCH 31.2 MCHC 32.3 RDW 14.4 Plt Count 266 MPV 9.5 POC Glucometer 178 248 Active Medications Generic Name Dose Route Start Last Admin Trade Name Freq PRN Reason Stop Dose Admin Albuterol Sulfate 1 amp 07/18/18 08:16 Ventolin 0.083% Nebulizer Soln - NEB Q1H PRN SHORT OF BREATH/WHEEZING Bisacodyl 20 mg 07/18/18 10:00 07/20/18 12:10 Dulcolax - PO 20 mg DAILY [facility] Administration Buspirone HCl 10 mg 07/18/18 22:00 07/20/18 12:13 Buspar - PO 10 mg BID [facility] Administration Calcium Acetate 667 mg 07/18/18 12:00 07/20/18 17:35 Phoslo - PO 667 mg TIDCM [facility] Administration Carvedilol 25 mg 07/20/18 10:00 07/20/18 12:11 Coreg - PO 25 mg BID [facility] Administration Heparin Sodium (Porcine) 5,000 unit 07/18/18 14:00 07/20/18 14:09 Heparin - SQ 5,000 unit TID [facility] Administration Hydralazine HCl 100 mg 07/18/18 22:00 07/20/18 14:09 Apresoline - PO 100 mg TID [facility] Administration Insulin Aspart 1 vial 07/18/18 16:30 07/20/18 17:34 Novolog Vial Sliding Scale - SQ 4 units ACHS [facility] Administration Protocol Insulin Detemir 20 units 07/19/18 14:25 07/19/18 21:48 Levemir Vial SQ 20 units HS [facility] Administration Lactic Acid 1 applic 07/18/18 22:00 07/20/18 12:14 Lac-Hydrin 12 TP 1 applic BID [facility] Administration Losartan Potassium 100 mg 07/20/18 10:05 Cozaar - PO DAILY [facility] Melatonin 3 mg 07/18/18 22:00 07/19/18 21:50 Melatonin PO 3 mg HS [facility] Administration Metoclopramide HCl 10 mg 07/18/18 11:00 07/20/18 17:35 Reglan - PO 10 mg TIDAC [facility] Administration Nifedipine 60 mg 07/19/18 10:00 07/20/18 12:14 Procardia Xl - PO 60 mg DAILY [facility] Administration Pantoprazole Sodium 40 mg 07/19/18 10:00 07/20/18 12:12 Protonix - PO 40 mg DAILY [facility] Administration Polyethylene Glycol 17 gm 07/19/18 10:00 07/20/18 12:12 Miralax (For Daily Use) - PO 17 grams DAILY [facility] Administration Ranitidine HCl 150 mg 07/19/18 10:00 07/20/18 12:11 Zantac - PO 150 mg DAILY [facility] Administration Senna 2 tab 07/18/18 22:00 07/19/18 21:47 Senna - PO 2 tab HS [facility] Administration Vitamin E 400 unit 07/19/18 10:00 07/20/18 12:13 Vitamin E - PO 400 unit DAILY [facility] Administration ASSESSMENT/PLAN: This is a 52 year old female with h/o HTN, DM, ESRD on HD, anxiety who present with shortness of breath and chest pain after recent discharge for volume overload. #shortness of breath due to vol overload; dchf; HTN #hypertensive emergency: -was on nifedipine drip; now off meds adjust ed as per cardio -carvedilol increased to 25bid bid uptitrate as needed -losartan 50mg po daily -procardia 60mg po daily -hydralazine; 100mg tid #Chest pain with troponemia; trending down -troponins; trend; with ecg; may be secondary to CKD or demand ischemia from tachycardia -ECHO; with pulm HTN; tricuspid regurg; diastolic chf; LV EF 65-70% -CTA negative #asthma: inhaled broncodilaotrs prn -outpatient pulm function test #ESRD: on HD- HD today -monitor bmp #anemia: sec to CKD; -s/p epogen; monitor cbc; iron stores #psych; dc seroqul; start buspar #HTN #DM: -insulin ss -levemir HS increased to 20HS; due to high morning glucose levels #constipation: duculax VTE: hep ggt GI pplx: zantac Visit type - Emergency Visit Emergency Visit: Yes ED Registration Date: 07/18/18 Care time: The patient presented to the Emergency Department on the above date and was hospitalized for further evaluation of their emergent condition. - New Patient This patient is new to me today: Yes Date on this admission: 07/20/18 - Critical Care Critical Care patient: No
[2018-07-20] MEDS: SENNOSIDES 8.6MG TABLET (FP) PO SCH (22:24)
[2018-07-20] MEDS: MELATONIN 1 MG TABLET PO SCH (22:24)
[2018-07-20] MEDS: INSULIN (LEVEMIR) 100 UNITS/ML UNITS SQ SCH (22:25)
[2018-07-21] MEDS: INSULIN SLIDING SCALE (NOVOLOG) 1 VIAL SQ SCH ×4 (06:16→22:18)
[2018-07-21] MEDS: hydrALAZINE HCL 50 MG TABLET (FP) PO SCH ×3 (06:27→22:15)
[2018-07-21] MEDS: HEPARIN NA (PORCINE) 5,000 UNITS/ML 1ML VIAL SQ SCH ×3 (06:27→22:14)
[2018-07-21] MEDS: METOCLOPRAMIDE HCL 10 MG TABLET (FP) PO SCH ×3 (06:28→16:49)
[2018-07-21] MEDS: CALCIUM ACETATE 667 MG CAPSULE (FP) PO SCH ×3 (08:15→16:49)
[2018-07-21 08:32] LABS: BASO % 1.4 % (0-2.0); EOS % 1.8 % (0-4.5); HEMATOCRIT 30.9 % (32.4-45.2); HEMOGLOBIN 10.3 GM/dL (10.7-15.3); LYMPH % 23.4 % (8-40); MCH 32.3 pg (25.7-33.7); MCHC 33.4 g/dl (32.0-36.0); MEAN CELL VOLUME 96.9 fl (80-96); MEAN PLT VOLUME 9.6 fl (7.5-11.1); MONO % 8.4 % (3.8-10.2); PLATELET COUNT 295 K/MM3 (134-434); RBC 3.19 M/mm3 (3.60-5.2); RDW 14.4 % (11.6-15.6); WHITE BLOOD COUNT 6.5 K/mm3 (4.0-10.0)
[2018-07-21 08:58] LABS: ANION GAP 8 MMOL/L (8-16); BLOOD UREA NITROGEN 30 mg/dL (7-18); CALCIUM 9.2 mg/dL (8.5-10.1); CHLORIDE 101 mmol/L (98-107); CO2 28 mmol/L (21-32); CREATININE 4.3 mg/dL (0.55-1.3); GLUCOSE,RANDOM 87 mg/dL (74-106); SODIUM 137 mmol/L (136-145)
[2018-07-21] MEDS ORDERED: PT OWN MED DRAWER 7, Y5N ONE ×2 (09:34→21:08)
[2018-07-21] MEDS: RANITIDINE HCL 150 MG TABLET (FP) PO SCH (09:37)
[2018-07-21] MEDS: PANTOPRAZOLE 40 MG TABLET (FP) PO SCH (09:37)
[2018-07-21] MEDS: CARVEDILOL 25 MG TABLET (FP) PO SCH ×2 (09:38→22:15)
[2018-07-21] MEDS: BISACODYL 5 MG TABLET.DR (FP) PO SCH (09:39)
[2018-07-21] MEDS: NIFEdipine E.R 60 MG TABLET (UD) PO SCH (09:40)
[2018-07-21] MEDS: busPIRone HCL 10 MG TABLET (FP) PO SCH ×2 (09:41→22:16)
[2018-07-21] MEDS: VITAMIN E 400 INTERNATIONAL-UNITS CAPSULE (FP) PO SCH (09:42)
[2018-07-21] MEDS: AMMONIUM LACTATE 12% LOTION 225 GM BOTTLE TP SCH ×2 (09:45→22:21)
--- NOTE | 2018-07-21 09:51 | PN ---
Physical Exam: SUBJECTIVE: Patient seen and examined, on bipap, breathing improved, no new concerns. OBJECTIVE: Vital Signs Period Temp Pulse Resp BP Sys/Rivera Pulse Ox Last 24 Hr 97.8 F-99.0 F 73-95 17-20 133-195/55-100 96-99 Intake & Output 07/18/18 07/19/18 07/20/18 07/21/18 23:59 23:59 23:59 23:59 Intake Total 720 840 940 Balance 720 840 940 Weight 205 lb GENERAL: The patient is awake, alert, and fully oriented, on NIPPV, looks comfortable HEAD: Normal with no signs of trauma. EYES: PERRL, extraocular movements intact, sclera anicteric, conjunctiva clear. No ptosis. ENT: Ears normal, nares patent, oropharynx clear without exudates, moist mucous membranes. NECK: soft, supple, no JVD LUNGS: Improved air entry today, few basilar rales, no wheezing HEART: Regular rate and rhythm, S1, S2 ABDOMEN: Soft, obese, nontender, nondistended, normoactive bowel sounds, no guarding, no rebound EXTREMITIES: trace pedal edema, improved PSYCH: Normal mood, normal affect. SKIN: Warm, dry, normal turgor, no rashes or lesions noted Laboratory Results - last 24 hr 07/20/18 07/20/18 07/20/18 12:09 17:29 22:20 WBC RBC Hgb Hct MCV MCH MCHC RDW Plt Count MPV Absolute Neuts (auto) Neutrophils % Lymphocytes % Monocytes % Eosinophils % Basophils % Nucleated RBC % Sodium Potassium Chloride Carbon Dioxide Anion Gap BUN Creatinine Creat Clearance w eGFR POC Glucometer 178 248 210 Random Glucose Calcium 07/21/18 07/21/18 07/21/18 01:58 06:15 06:15 WBC 6.5 RBC 3.19 L Hgb 10.3 L Hct 30.9 L MCV 96.9 H MCH 32.3 MCHC 33.4 RDW 14.4 Plt Count 295 MPV 9.6 Absolute Neuts (auto) 4.2 Neutrophils % 65.0 D Lymphocytes % 23.4 D Monocytes % 8.4 Eosinophils % 1.8 D Basophils % 1.4 Nucleated RBC % 0 Sodium 137 Potassium 4.0 Chloride 101 Carbon Dioxide 28 Anion Gap 8 BUN 30 H Creatinine 4.3 H Creat Clearance w eGFR 10.82 POC Glucometer 153 Random Glucose 87 Calcium 9.2 07/21/18 06:15 WBC RBC Hgb Hct MCV MCH MCHC RDW Plt Count MPV Absolute Neuts (auto) Neutrophils % Lymphocytes % Monocytes % Eosinophils % Basophils % Nucleated RBC % Sodium Potassium Chloride Carbon Dioxide Anion Gap BUN Creatinine Creat Clearance w eGFR POC Glucometer 89 Random Glucose Calcium Active Medications Generic Name Dose Route Start Last Admin Trade Name Freq PRN Reason Stop Dose Admin Albuterol Sulfate 1 amp 07/18/18 08:16 Ventolin 0.083% Nebulizer Soln - NEB Q1H PRN SHORT OF BREATH/WHEEZING Bisacodyl 20 mg 07/18/18 10:00 07/21/18 09:39 Dulcolax - PO 20 mg DAILY [facility] Administration Buspirone HCl 10 mg 07/18/18 22:00 07/21/18 09:41 Buspar - PO 10 mg BID [facility] Administration Calcium Acetate 667 mg 07/18/18 12:00 07/21/18 08:15 Phoslo - PO 667 mg TIDCM [facility] Administration Carvedilol 25 mg 07/21/18 09:47 Coreg - PO Q12H [facility] Heparin Sodium (Porcine) 5,000 unit 07/18/18 14:00 07/21/18 06:27 Heparin - SQ 5,000 unit TID [facility] Administration Hydralazine HCl 100 mg 07/18/18 22:00 07/21/18 06:27 Apresoline - PO 100 mg TID [facility] Administration Insulin Aspart 1 vial 07/18/18 16:30 07/21/18 06:16 Novolog Vial Sliding Scale - SQ Not Given [facility] Protocol Insulin Detemir 20 units 07/19/18 14:25 07/20/18 22:25 Levemir Vial SQ 20 units HS [facility] Administration Lactic Acid 1 applic 07/18/18 22:00 07/21/18 09:45 Lac-Hydrin 12 TP 1 applic BID [facility] Administration Losartan Potassium 100 mg 07/22/18 08:00 Cozaar - PO DAILY [facility] Melatonin 3 mg 07/18/18 22:00 07/20/18 22:24 Melatonin PO 3 mg HS [facility] Administration Metoclopramide HCl 10 mg 07/18/18 11:00 07/21/18 06:28 Reglan - PO 10 mg TIDAC [facility] Administration Nifedipine 60 mg 07/19/18 10:00 07/21/18 09:40 Procardia Xl - PO 60 mg DAILY [facility] Administration Pantoprazole Sodium 40 mg 07/19/18 10:00 07/21/18 09:37 Protonix - PO 40 mg DAILY [facility] Administration Polyethylene Glycol 17 gm 07/19/18 10:00 07/20/18 12:12 Miralax (For Daily Use) - PO 17 grams DAILY [facility] Administration Ranitidine HCl 150 mg 07/19/18 10:00 07/21/18 09:37 Zantac - PO 150 mg DAILY [facility] Administration Senna 2 tab 07/18/18 22:00 07/20/18 22:24 Senna - PO 2 tab HS [facility] Administration Vitamin E 400 unit 07/19/18 10:00 07/21/18 09:42 Vitamin E - PO 400 unit DAILY [facility] Administration ASSESSMENT/PLAN: 52 yof with PMHx of IDDM, ESRD on HD, HTN, anxiety, admitted yesterday, with HTN when d/en after HD, non compliant with her meds re-admitted with Hypertensive emergency/Flash pulmonary edema -Hypertensive emergency, suspect from medication non compliance -Acute flash pulmonary edema, likely from above -Acute hypoxic respiratory failure -Acute diastolic Heart failure exacerbation -ESRD on HD -IDDM -Anxiety disorder Plan: Volume status/overalll BP range improved. AM hypertension, change coreg/losartan to be given early. Continue hydralazine. S/p Nitro drip in ED, d/en now. Bipap prn. (per nursing, patient requesting for comfort) Cardiology/nephrology input noted. Psychiatry input noted. Buspar bid started. seroquel d/en. Need for compliance stressed with patient. ISS, diabetic diet. Titrate levemir based on blood sugars and PO intake. DVTPPX heparin Dispo anticipate dc Monday post HD if BP and volume status continue to improve. Plan discussed with patient and nursing in detail, all questions answered. Visit type - Emergency Visit Emergency Visit: Yes ED Registration Date: 07/18/18 Care time: The patient presented to the Emergency Department on the above date and was hospitalized for further evaluation of their emergent condition. - New Patient This patient is new to me today: No - Critical Care Critical Care patient: No - Discharge Referral Referred to [facility] Med [facility] No
--- NOTE | 2018-07-21 10:28 | PN ---
Progress Note (short form) - Note Progress Note: RENAL Pt is awake and alert using BiPap and feels better worried about her panic attack CBC, BMP 07/21/18 06:15 07/21/18 06:15 Current Medications Generic Name Dose Route Start Last Admin Trade Name Freq PRN Reason Stop Dose Admin Albuterol Sulfate 1 amp 07/18/18 08:16 Ventolin 0.083% Nebulizer Soln - NEB Q1H PRN SHORT OF BREATH/WHEEZING Bisacodyl 20 mg 07/18/18 10:00 07/21/18 09:39 Dulcolax - PO 20 mg DAILY [facility] Administration Buspirone HCl 10 mg 07/18/18 22:00 07/21/18 09:41 Buspar - PO 10 mg BID [facility] Administration Calcium Acetate 667 mg 07/18/18 12:00 07/21/18 08:15 Phoslo - PO 667 mg TIDCM [facility] Administration Carvedilol 25 mg 07/21/18 22:00 Coreg - PO BID [facility] Heparin Sodium (Porcine) 5,000 unit 07/18/18 14:00 07/21/18 06:27 Heparin - SQ 5,000 unit TID [facility] Administration Hydralazine HCl 100 mg 07/18/18 22:00 07/21/18 06:27 Apresoline - PO 100 mg TID [facility] Administration Insulin Aspart 1 vial 07/18/18 16:30 07/21/18 06:16 Novolog Vial Sliding Scale - SQ Not Given ACHS [facility] Protocol Insulin Detemir 20 units 07/19/18 14:25 07/20/18 22:25 Levemir Vial SQ 20 units HS [facility] Administration Lactic Acid 1 applic 07/18/18 22:00 07/21/18 09:45 Lac-Hydrin 12 TP 1 applic BID [facility] Administration Losartan Potassium 100 mg 07/22/18 08:00 Cozaar - PO DAILY@0800 [facility] Melatonin 3 mg 07/18/18 22:00 07/20/18 22:24 Melatonin PO 3 mg HS [facility] Administration Metoclopramide HCl 10 mg 07/18/18 11:00 07/21/18 06:28 Reglan - PO 10 mg TIDAC [facility] Administration Nifedipine 60 mg 07/19/18 10:00 07/21/18 09:40 Procardia Xl - PO 60 mg DAILY [facility] Administration Pantoprazole Sodium 40 mg 07/19/18 10:00 07/21/18 09:37 Protonix - PO 40 mg DAILY [facility] Administration Polyethylene Glycol 17 gm 07/19/18 10:00 07/20/18 12:12 Miralax (For Daily Use) - PO 17 grams DAILY [facility] Administration Ranitidine HCl 150 mg 07/19/18 10:00 07/21/18 09:37 Zantac - PO 150 mg DAILY [facility] Administration Senna 2 tab 07/18/18 22:00 07/20/18 22:24 Senna - PO 2 tab HS [facility] Administration Vitamin E 400 unit 07/19/18 10:00 07/21/18 09:42 Vitamin E - PO 400 unit DAILY [facility] Administration Last Vital Signs Temp Pulse Resp BP Pulse Ox 98.1 F 88 20 195/93 H 99 07/21/18 05:47 07/21/18 05:47 07/21/18 05:47 07/21/18 05:47 07/21/18 00:06 lungs clear cvs s1s2 rr abd soft ext no edema neuro a+ox3 Impression 1. ESRD 2. DM 3. HTN 4. gastroparesis 5. nausea 6. anemia 7. peripheral neuropathy 8. sudden onset shortness of breath PLAN increase nifedipine to 90 daily re HD in 2 days perhaps needs a stronger anxiolytic to control BP MV
--- NOTE | 2018-07-21 11:15 | PN ---
Progress Note, Physician History of Present Illness: Dyspnea on exertion improved to baseline. - Current Medication List Current Medications: Active Medications Albuterol Sulfate (Ventolin 0.083% Nebulizer Soln -) 1 amp NEB Q1H PRN PRN Reason: SHORT OF BREATH/WHEEZING Bisacodyl (Dulcolax -) 20 mg PO DAILY [facility] Last Admin: 07/21/18 09:39 Dose: 20 mg Buspirone HCl (Buspar -) 10 mg PO BID [facility] Last Admin: 07/21/18 09:41 Dose: 10 mg Calcium Acetate (Phoslo -) 667 mg PO TIDCM [facility] Last Admin: 07/21/18 11:09 Dose: 667 mg Carvedilol (Coreg -) 25 mg PO BID [facility] Heparin Sodium (Porcine) (Heparin -) 5,000 unit SQ TID [facility] Last Admin: 07/21/18 06:27 Dose: 5,000 unit Hydralazine HCl (Apresoline -) 100 mg PO TID [facility] Last Admin: 07/21/18 06:27 Dose: 100 mg Insulin Aspart (Novolog Vial Sliding Scale -) 1 vial SQ [facility]; Protocol Last Admin: 07/21/18 11:08 Dose: 4 units Insulin Detemir (Levemir Vial) 20 units SQ HS [facility] Last Admin: 07/20/18 22:25 Dose: 20 units Lactic Acid (Lac-Hydrin 12) 1 applic TP BID [facility] Last Admin: 07/21/18 09:45 Dose: 1 applic Losartan Potassium (Cozaar -) 100 mg PO DAILY@0800 [facility] Melatonin (Melatonin) 3 mg PO HS [facility] Last Admin: 07/20/18 22:24 Dose: 3 mg Metoclopramide HCl (Reglan -) 10 mg PO TIDAC [facility] Last Admin: 07/21/18 11:09 Dose: 10 mg Nifedipine (Procardia Xl -) 90 mg PO DAILY [facility] Pantoprazole Sodium (Protonix -) 40 mg PO DAILY [facility] Last Admin: 07/21/18 09:37 Dose: 40 mg Polyethylene Glycol (Miralax (For Daily Use) -) 17 gm PO DAILY [facility] Last Admin: 07/20/18 12:12 Dose: 17 grams Ranitidine HCl (Zantac -) 150 mg PO DAILY [facility] Last Admin: 07/21/18 09:37 Dose: 150 mg Senna (Senna -) 2 tab PO HS [facility] Last Admin: 07/20/18 22:24 Dose: 2 tab Vitamin E (Vitamin E -) 400 unit PO DAILY [facility] Last Admin: 07/21/18 09:42 Dose: 400 unit - Objective Vital Signs: Vital Signs Temperature 98.5 F 07/21/18 10:00 Pulse Rate 87 07/21/18 10:00 Respiratory Rate 20 07/21/18 10:00 Blood Pressure 172/82 H 07/21/18 10:00 O2 Sat by Pulse Oximetry (%) 99 07/21/18 00:06 Constitutional: Yes: No Distress, Calm Neck: Yes: Supple Cardiovascular: Yes: Regular Rate and Rhythm Respiratory: Yes: Regular, Diminished, On Nasal O2 Gastrointestinal: Yes: Normal Bowel Sounds, Soft Edema: No Labs: CBC, BMP 07/21/18 06:15 07/21/18 06:15 INR, PTT INR 0.97 (0.83-1.09) 07/17/18 23:21 - ....Imaging Chest X-ray: Report Reviewed (Decreased congestion) Problem List - Problems (1) Hypertensive heart disease Code(s): I11.9 - HYPERTENSIVE HEART DISEASE WITHOUT HEART FAILURE Qualifiers: Heart failure presence: with heart failure Heart failure type: diastolic Heart failure chronicity: acute on chronic Qualified Code(s): I11.0 - Hypertensive heart disease with heart failure; I50.33 - Acute on chronic diastolic (congestive) heart failure (2) Demand ischemia Code(s): I24.8 - OTHER FORMS OF ACUTE ISCHEMIC HEART DISEASE (3) Acute pulmonary edema Code(s): J81.0 - ACUTE PULMONARY EDEMA (4) Chest pain Code(s): R07.9 - CHEST PAIN, UNSPECIFIED Qualifiers: Chest pain type: precordial pain Qualified Code(s): R07.2 - Precordial pain (5) Anemia in chronic kidney disease (CKD) Code(s): N18.9 - CHRONIC KIDNEY DISEASE, UNSPECIFIED; D63.1 - ANEMIA IN CHRONIC KIDNEY DISEASE Qualifiers: Chronic kidney disease stage: on chronic dialysis Qualified Code(s): N18.6 - End stage renal disease; D63.1 - Anemia in chronic kidney disease; Z99.2 - Dependence on renal dialysis (6) Diabetes Code(s): E11.9 - TYPE 2 DIABETES MELLITUS WITHOUT COMPLICATIONS Qualifiers: Diabetes mellitus type: type 2 Diabetes mellitus shelter insulin use: with ferry terminal agent use Diabetes mellitus complication status: with skin complications Diabetes mellitus complication detail: with foot ulcer Qualified Code(s): E11.621 - Type 2 diabetes mellitus with foot ulcer (7) End stage renal disease on dialysis Code(s): N18.6 - END STAGE RENAL DISEASE; Z99.2 - DEPENDENCE ON RENAL DIALYSIS Assessment/Plan 07/16/2018 Echo: Normal LV size with mild cLVH and normal LV fn LVEF 65-70%, normal RV fxn, mild LAE, mild-mod MR, TR, mild MS RVSP 61 mmHg 1. Dsypnea and chest pain referable to acute on chronic recurrent diastolic heart failure improving 2. ESRD on HD with resolved hyperkalemia 3. +Troponins referable to Demand Ischemia 4. Pulmonary HTN 5. 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 Anemia of CKD P: 1. Volume removal via HD, trops are downtrending 2. Increased carvedilol 25 bid, losartan 100 qd as hyperkalemia resolved, procardia XL 90 qd on hydralazine 3. Addressed importance of medication, diet and HD compliance 4. Outpatient CV evaluation given recurrent DCHF
--- NOTE | 2018-07-21 14:37 | PN ---
Progress Note (short form) - Note Progress Note: In the atrium. Feels overall better. Did use NIPPV overnight. Intake & Output 07/18/18 07/19/18 07/20/18 07/21/18 23:59 23:59 23:59 23:59 Intake Total 720 840 940 Balance 720 840 940 Weight 205 lb Last Vital Signs Temp Pulse Resp BP Pulse Ox 98.7 F 89 20 129/64 97 07/21/18 14:28 07/21/18 14:28 07/21/18 14:28 07/21/18 14:28 07/21/18 09:00 Active Medications Albuterol Sulfate (Ventolin 0.083% Nebulizer Soln -) 1 amp NEB Q1H PRN PRN Reason: SHORT OF BREATH/WHEEZING Bisacodyl (Dulcolax -) 20 mg PO DAILY [facility] Last Admin: 07/21/18 09:39 Dose: 20 mg Buspirone HCl (Buspar -) 10 mg PO BID [facility] Last Admin: 07/21/18 09:41 Dose: 10 mg Calcium Acetate (Phoslo -) 667 mg PO TIDCM [facility] Last Admin: 07/21/18 11:09 Dose: 667 mg Carvedilol (Coreg -) 25 mg PO BID [facility] Heparin Sodium (Porcine) (Heparin -) 5,000 unit SQ TID [facility] Last Admin: 07/21/18 14:02 Dose: 5,000 unit Hydralazine HCl (Apresoline -) 100 mg PO TID [facility] Last Admin: 07/21/18 14:01 Dose: 100 mg Insulin Aspart (Novolog Vial Sliding Scale -) 1 vial SQ [facility]; Protocol Last Admin: 07/21/18 11:08 Dose: 4 units Insulin Detemir (Levemir Vial) 20 units SQ [facility] Last Admin: 07/20/18 22:25 Dose: 20 units Lactic Acid (Lac-Hydrin 12) 1 applic TP BID [facility] Last Admin: 07/21/18 09:45 Dose: 1 applic Losartan Potassium (Cozaar -) 100 mg PO DAILY@0800 [facility] Melatonin (Melatonin) 3 mg PO [facility] Last Admin: 07/20/18 22:24 Dose: 3 mg Metoclopramide HCl (Reglan -) 10 mg PO TIDAC [facility] Last Admin: 07/21/18 11:09 Dose: 10 mg Nifedipine (Procardia Xl -) 90 mg PO DAILY [facility] Pantoprazole Sodium (Protonix -) 40 mg PO DAILY [facility] Last Admin: 07/21/18 09:37 Dose: 40 mg Polyethylene Glycol (Miralax (For Daily Use) -) 17 gm PO DAILY [facility] Last Admin: 07/20/18 12:12 Dose: 17 grams Ranitidine HCl (Zantac -) 150 mg PO DAILY [facility] Last Admin: 07/21/18 09:37 Dose: 150 mg Senna (Senna -) 2 tab PO HS [facility] Last Admin: 07/20/18 22:24 Dose: 2 tab Vitamin E (Vitamin E -) 400 unit PO DAILY [facility] Last Admin: 07/21/18 09:42 Dose: 400 unit Constitutional: Yes: Well Nourished, NAD Eyes: Yes: WNL HENT: Yes: WNL Neck: Yes: WNL Cardiovascular: Yes: Regular Rate and Rhythm, S1, S2 Respiratory: Yes: Clear, Diminished at the bases Gastrointestinal: Yes: Normal Bowel Sounds, Soft Extremities: Yes: WNL Edema: Yes Labs: Laboratory Results - last 24 hr 07/20/18 07/20/18 07/21/18 17:29 22:20 01:58 WBC RBC Hgb Hct MCV MCH MCHC RDW Plt Count MPV Absolute Neuts (auto) Neutrophils % Lymphocytes % Monocytes % Eosinophils % Basophils % Nucleated RBC % Sodium Potassium Chloride Carbon Dioxide Anion Gap BUN Creatinine Creat Clearance w eGFR POC Glucometer 248 210 153 Random Glucose Calcium 07/21/18 07/21/18 07/21/18 06:15 06:15 06:15 WBC 6.5 RBC 3.19 L Hgb 10.3 L Hct 30.9 L MCV 96.9 H MCH 32.3 MCHC 33.4 RDW 14.4 Plt Count 295 MPV 9.6 Absolute Neuts (auto) 4.2 Neutrophils % 65.0 D Lymphocytes % 23.4 D Monocytes % 8.4 Eosinophils % 1.8 D Basophils % 1.4 Nucleated RBC % 0 Sodium 137 Potassium 4.0 Chloride 101 Carbon Dioxide 28 Anion Gap 8 BUN 30 H Creatinine 4.3 H Creat Clearance w eGFR 10.82 POC Glucometer 89 Random Glucose 87 Calcium 9.2 07/21/18 11:03 WBC RBC Hgb Hct MCV MCH MCHC RDW Plt Count MPV Absolute Neuts (auto) Neutrophils % Lymphocytes % Monocytes % Eosinophils % Basophils % Nucleated RBC % Sodium Potassium Chloride Carbon Dioxide Anion Gap BUN Creatinine Creat Clearance w eGFR POC Glucometer 206 Random Glucose Calcium Problem List - Problems (1) Acute pulmonary edema Code(s): J81.0 - ACUTE PULMONARY EDEMA (2) Hypertensive heart disease Code(s): I11.9 - HYPERTENSIVE HEART DISEASE WITHOUT HEART FAILURE Qualifiers: Heart failure presence: with heart failure Heart failure type: diastolic Heart failure chronicity: acute on chronic Qualified Code(s): I11.0 - Hypertensive heart disease with heart failure; I50.33 - Acute on chronic diastolic (congestive) heart failure (3) End stage kidney disease Code(s): N18.6 - END STAGE RENAL DISEASE (4) GERD (gastroesophageal reflux disease) Code(s): K21.9 - GASTRO-ESOPHAGEAL REFLUX DISEASE WITHOUT ESOPHAGITIS (5) Gastroparesis Code(s): K31.84 - GASTROPARESIS (6) Shortness of breath Code(s): R06.02 - SHORTNESS OF BREATH (7) Type 1 diabetes mellitus with diabetic chronic kidney disease Code(s): E10.22 - TYPE 1 DIABETES MELLITUS W DIABETIC CHRONIC KIDNEY DISEASE; N18.9 - CHRONIC KIDNEY DISEASE, UNSPECIFIED (8) Type 1 diabetes mellitus with diabetic nephropathy Code(s): E10.21 - TYPE 1 DIABETES MELLITUS WITH DIABETIC NEPHROPATHY (9) End stage renal disease on dialysis Code(s): N18.6 - END STAGE RENAL DISEASE; Z99.2 - DEPENDENCE ON RENAL DIALYSIS (10) HTN (hypertension) Code(s): I10 - ESSENTIAL (PRIMARY) HYPERTENSION Qualifiers: Hypertension type: essential hypertension Qualified Code(s): I10 - Essential (primary) hypertension (11) Smoking greater than 20 pack years Code(s): F17.210 - NICOTINE DEPENDENCE, CIGARETTES, UNCOMPLICATED Assessment/Plan IMP ACUTE RESPIRATORY FAILURE IMPROVED VOLUME OVERLOAD ESRD ON HD HTN DM ASTHMA NEUROPATHY GASTROPARESIS GERD TOBACCO ABUSE + TROPONIN PULMONARY HTN PLAN O2 HD PER RENAL INHALED BRONCHODILATORS PRN COMPLIANCE WITH MEDS SMOKING CESSATION COUNSELED PFTS OUTPATIENT DAILY WT DR BRANDON
[2018-07-21] MEDS: POLYETHYLENE GLYCOL 3350 119 GM BTL PO SCH (16:05)
[2018-07-21] MEDS: SENNOSIDES 8.6MG TABLET (FP) PO SCH (22:14)
[2018-07-21] MEDS: INSULIN (LEVEMIR) 100 UNITS/ML UNITS SQ SCH (22:17)
[2018-07-21] MEDS: MELATONIN 1 MG TABLET PO SCH (22:21)
[2018-07-22] MEDS ORDERED: ACETAMINOPHEN 325 MG TABLET (FP) PO ONE (04:12)
[2018-07-22] MEDS ORDERED: ACETAMINOPHEN 325 MG TABLET (FP) ONE (04:14)
[2018-07-22] MEDS: HEPARIN NA (PORCINE) 5,000 UNITS/ML 1ML VIAL SQ SCH ×3 (06:48→22:37)
[2018-07-22] MEDS: hydrALAZINE HCL 50 MG TABLET (FP) PO SCH ×3 (06:48→22:36)
[2018-07-22] MEDS: METOCLOPRAMIDE HCL 10 MG TABLET (FP) PO SCH ×3 (06:48→16:45)
[2018-07-22] MEDS: INSULIN SLIDING SCALE (NOVOLOG) 1 VIAL SQ SCH ×4 (06:49→22:54)
[2018-07-22] MEDS: CALCIUM ACETATE 667 MG CAPSULE (FP) PO SCH ×3 (08:19→16:45)
[2018-07-22] MEDS: LOSARTAN POTASSIUM 50 MG TABLET (FP) PO SCH (08:20)
[2018-07-22 08:24] LABS: ANION GAP 10 MMOL/L (8-16); BLOOD UREA NITROGEN 51 mg/dL (7-18); CALCIUM 8.5 mg/dL (8.5-10.1); CHLORIDE 100 mmol/L (98-107); CO2 28 mmol/L (21-32); CREATININE 6.9 mg/dL (0.55-1.3); GLUCOSE,RANDOM 116 mg/dL (74-106); POTASSIUM 4.1 mmol/L (3.5-5.1); SODIUM 138 mmol/L (136-145)
[2018-07-22] MEDS ORDERED: PT OWN MED DRAWER 7, Y5N ONE (09:18)
[2018-07-22] MEDS ORDERED: INSULIN (LEVEMIR) 100 UNITS/ML UNITS SQ ONE (10:10)
--- NOTE | 2018-07-22 10:13 | PN ---
Physical Exam: SUBJECTIVE: Patient seen and examined, denies any headache, dyspnea or chest pain. Eager to go home. OBJECTIVE: Vital Signs Period Temp Pulse Resp BP Sys/Rivera Pulse Ox Last 24 Hr 97.8 F-98.7 F 75-89 18-21 129-160/64-78 96-99 GENERAL: The patient is awake, alert, and fully oriented, in no acute distress. HEAD: Normal with no signs of trauma. EYES: PERRL, extraocular movements intact, sclera anicteric, conjunctiva clear. No ptosis. ENT: Ears normal, nares patent, oropharynx clear without exudates, moist mucous membranes. NECK: Trachea midline, full range of motion, supple. LUNGS: CTAB today, no rales or wheezing, good air entry HEART: Regular rate and rhythm, S1, S2 ABDOMEN: Soft, nontender, nondistended, normoactive bowel sounds, no guarding, no rebound EXTREMITIES: trace pedal edema, improved PSYCH: Normal mood, normal affect. SKIN: Warm, dry, normal turgor, no rashes or lesions noted Laboratory Results - last 24 hr 07/21/18 07/21/18 07/21/18 11:03 16:34 22:13 Sodium Potassium Chloride Carbon Dioxide Anion Gap BUN Creatinine Creat Clearance w eGFR POC Glucometer 206 207 380 Random Glucose Calcium 07/22/18 07/22/18 05:30 06:47 Sodium 138 Potassium 4.1 Chloride 100 Carbon Dioxide 28 Anion Gap 10 BUN 51 H Creatinine 6.9 H Creat Clearance w eGFR 6.27 POC Glucometer 120 Random Glucose 116 H Calcium 8.5 Active Medications Generic Name Dose Route Start Last Admin Trade Name Freq PRN Reason Stop Dose Admin Albuterol Sulfate 1 amp 07/18/18 08:16 Ventolin 0.083% Nebulizer Soln - NEB Q1H PRN SHORT OF BREATH/WHEEZING Bisacodyl 20 mg 07/18/18 10:00 07/21/18 09:39 Dulcolax - PO 20 mg DAILY [facility] Administration Buspirone HCl 10 mg 07/18/18 22:00 07/21/18 22:16 Buspar - PO 10 mg BID [facility] Administration Calcium Acetate 667 mg 07/18/18 12:00 07/22/18 08:19 Phoslo - PO 667 mg TIDCM [facility] Administration Carvedilol 25 mg 07/21/18 22:00 07/21/18 22:15 Coreg - PO 25 mg BID [facility] Administration Heparin Sodium (Porcine) 5,000 unit 07/18/18 14:00 07/22/18 06:48 Heparin - SQ 5,000 unit TID [facility] Administration Hydralazine HCl 100 mg 07/18/18 22:00 07/22/18 06:48 Apresoline - PO 100 mg TID [facility] Administration Insulin Aspart 1 vial 07/18/18 16:30 07/22/18 06:49 Novolog Vial Sliding Scale - SQ Not Given ACHS [facility] Protocol Insulin Detemir 20 units 07/19/18 14:25 07/21/18 22:17 Levemir Vial SQ 20 units HS [facility] Administration Insulin Detemir 10 units 07/23/18 07:00 Levemir Vial SQ AM [facility] Insulin Detemir 10 units 07/22/18 10:10 Levemir Vial SQ 07/22/18 10:11 ONCE ONE Lactic Acid 1 applic 07/18/18 22:00 07/21/18 22:21 Lac-Hydrin 12 TP 1 applic BID [facility] Administration Losartan Potassium 100 mg 07/22/18 08:00 07/22/18 08:20 Cozaar - PO 100 mg DAILY@0800 [facility] Administration Melatonin 3 mg 07/18/18 22:00 07/21/18 22:21 Melatonin PO 3 mg HS [facility] Administration Metoclopramide HCl 10 mg 07/18/18 11:00 07/22/18 06:48 Reglan - PO 10 mg TIDAC [facility] Administration Nifedipine 90 mg 07/21/18 10:29 Procardia Xl - PO DAILY [facility] Pantoprazole Sodium 40 mg 07/19/18 10:00 07/21/18 09:37 Protonix - PO 40 mg DAILY [facility] Administration Polyethylene Glycol 17 gm 07/19/18 10:00 07/21/18 16:05 Miralax (For Daily Use) - PO Not Given DAILY [facility] Ranitidine HCl 150 mg 07/19/18 10:00 07/21/18 09:37 Zantac - PO 150 mg DAILY [facility] Administration Senna 2 tab 07/18/18 22:00 07/21/18 22:14 Senna - PO 2 tab HS [facility] Administration Vitamin E 400 unit 07/19/18 10:00 07/21/18 09:42 Vitamin E - PO 400 unit DAILY [facility] Administration ASSESSMENT/PLAN: 52 yof with PMHx of IDDM, ESRD on HD, HTN, anxiety, admitted yesterday, with HTN when d/en after HD, non compliant with her meds re-admitted with Hypertensive emergency/Flash pulmonary edema -Hypertensive emergency, suspect from medication non compliance -Acute flash pulmonary edema, likely from above -Acute hypoxic respiratory failure -Acute diastolic Heart failure exacerbation -ESRD on HD -IDDM -Anxiety disorder Plan: Volume status/overalll BP continue to improve. Coreg/nifedipine increased. ACEi changed to losartan. Continue hydralazine. S/p Nitro drip in ED, d/en now. Bipap prn. (per nursing, patient requesting for comfort) Cardiology/nephrology input noted. Psychiatry input noted. Buspar bid started. seroquel d/en. Need for compliance stressed with patient. ISS, diabetic diet. resume AM levemir 10 units. Continue 10 units HS. DVTPPX heparin Dispo plan for d/c after HD tomorrow if continues to improve. Plan discussed with patient and nursing in detail, all questions answered. Visit type - Emergency Visit Emergency Visit: Yes ED Registration Date: 07/18/18 Care time: The patient presented to the Emergency Department on the above date and was hospitalized for further evaluation of their emergent condition. - New Patient This patient is new to me today: No - Critical Care Critical Care patient: No - Discharge Referral Referred to [facility] Med P.C.: No
--- NOTE | 2018-07-22 10:29 | PN ---
Progress Note (short form) - Note Progress Note: RENAL Pt is awake and alert using BiPap and feels better wants to go home Last Vital Signs Temp Pulse Resp BP Pulse Ox 98.1 F 80 20 160/72 96 07/22/18 08:25 07/22/18 08:25 07/22/18 08:26 07/22/18 08:25 07/22/18 08:26 lungs clear cvs s1s2 rr abd soft ext no edema neuro a+ox3 CBC, BMP 07/21/18 06:15 07/22/18 05:30 Current Medications Generic Name Dose Route Start Last Admin Trade Name Freq PRN Reason Stop Dose Admin Albuterol Sulfate 1 amp 07/18/18 08:16 Ventolin 0.083% Nebulizer Soln - NEB Q1H PRN SHORT OF BREATH/WHEEZING Bisacodyl 20 mg 07/18/18 10:00 07/21/18 09:39 Dulcolax - PO 20 mg DAILY [facility] Administration Buspirone HCl 10 mg 07/18/18 22:00 07/21/18 22:16 Buspar - PO 10 mg BID [facility] Administration Calcium Acetate 667 mg 07/18/18 12:00 07/22/18 08:19 Phoslo - PO 667 mg TIDCM [facility] Administration Carvedilol 25 mg 07/21/18 22:00 07/21/18 22:15 Coreg - PO 25 mg BID [facility] Administration Heparin Sodium (Porcine) 5,000 unit 07/18/18 14:00 07/22/18 06:48 Heparin - SQ 5,000 unit TID [facility] Administration Hydralazine HCl 100 mg 07/18/18 22:00 07/22/18 06:48 Apresoline - PO 100 mg TID [facility] Administration Insulin Aspart 1 vial 07/18/18 16:30 07/22/18 06:49 Novolog Vial Sliding Scale - SQ Not Given ACHS [facility] Protocol Insulin Detemir 20 units 07/19/18 14:25 07/21/18 22:17 Levemir Vial SQ 20 units HS [facility] Administration Insulin Detemir 10 units 07/23/18 07:00 Levemir Vial SQ AM [facility] Lactic Acid 1 applic 07/18/18 22:00 07/21/18 22:21 Lac-Hydrin 12 TP 1 applic BID [facility] Administration Losartan Potassium 100 mg 07/22/18 08:00 07/22/18 08:20 Cozaar - PO 100 mg DAILY@0800 [facility] Administration Melatonin 3 mg 07/18/18 22:00 07/21/18 22:21 Melatonin PO 3 mg HS [facility] Administration Metoclopramide HCl 10 mg 07/18/18 11:00 07/22/18 06:48 Reglan - PO 10 mg TIDAC [facility] Administration Nifedipine 90 mg 07/21/18 10:29 Procardia Xl - PO DAILY [facility] Pantoprazole Sodium 40 mg 07/19/18 10:00 07/21/18 09:37 Protonix - PO 40 mg DAILY [facility] Administration Polyethylene Glycol 17 gm 07/19/18 10:00 07/21/18 16:05 Miralax (For Daily Use) - PO Not Given DAILY [facility] Ranitidine HCl 150 mg 07/19/18 10:00 07/21/18 09:37 Zantac - PO 150 mg DAILY [facility] Administration Senna 2 tab 07/18/18 22:00 07/21/18 22:14 Senna - PO 2 tab HS [facility] Administration Vitamin E 400 unit 07/19/18 10:00 07/21/18 09:42 Vitamin E - PO 400 unit DAILY [facility] Administration Impression 1. ESRD 2. DM 3. HTN 4. gastroparesis 5. nausea 6. anemia 7. peripheral neuropathy 8. sudden onset shortness of breath PLAN no objection to dc psych to follow will dialyze tomorrow can continue same BP meds MV
[2018-07-22] MEDS ORDERED: SODIUM CHLORIDE 250 ML IV PRN (10:30)
[2018-07-22] MEDS: BISACODYL 5 MG TABLET.DR (FP) PO SCH (11:00)
[2018-07-22] MEDS: NIFEdipine E.R. 30 MG TABLET (FP) PO SCH (11:00)
[2018-07-22] MEDS: POLYETHYLENE GLYCOL 3350 119 GM BTL PO SCH (11:01)
[2018-07-22] MEDS: PANTOPRAZOLE 40 MG TABLET (FP) PO SCH (11:01)
[2018-07-22] MEDS: CARVEDILOL 25 MG TABLET (FP) PO SCH ×2 (11:01→22:37)
[2018-07-22] MEDS: RANITIDINE HCL 150 MG TABLET (FP) PO SCH (11:01)
[2018-07-22] MEDS: AMMONIUM LACTATE 12% LOTION 225 GM BOTTLE TP SCH ×2 (11:02→22:42)
[2018-07-22] MEDS: busPIRone HCL 10 MG TABLET (FP) PO SCH ×2 (11:02→22:37)
[2018-07-22] MEDS: VITAMIN E 400 INTERNATIONAL-UNITS CAPSULE (FP) PO SCH (11:02)
--- NOTE | 2018-07-22 12:46 | PN ---
Progress Note (short form) - Note Progress Note: Feels overall better. Comfortable on RA. Did use NIPPV overnight. Intake & Output 07/19/18 07/20/18 07/21/18 07/22/18 23:59 23:59 23:59 23:59 Intake Total 712 508 7103 120 Balance 516 175 4598 120 Last Vital Signs Temp Pulse Resp BP Pulse Ox 98.1 F 80 20 160/72 96 07/22/18 08:25 07/22/18 08:25 07/22/18 08:26 07/22/18 08:25 07/22/18 08:26 Active Medications Albuterol Sulfate (Ventolin 0.083% Nebulizer Soln -) 1 amp NEB Q1H PRN PRN Reason: SHORT OF BREATH/WHEEZING Bisacodyl (Dulcolax -) 20 mg PO DAILY [facility] Last Admin: 07/22/18 11:00 Dose: 20 mg Buspirone HCl (Buspar -) 10 mg PO BID [facility] Last Admin: 07/22/18 11:02 Dose: 10 mg Calcium Acetate (Phoslo -) 667 mg PO TIDCM [facility] Last Admin: 07/22/18 11:06 Dose: 667 mg Carvedilol (Coreg -) 25 mg PO BID [facility] Last Admin: 07/22/18 11:01 Dose: 25 mg Heparin Sodium (Porcine) (Heparin -) 5,000 unit SQ TID [facility] Last Admin: 07/22/18 06:48 Dose: 5,000 unit Hydralazine HCl (Apresoline -) 100 mg PO TID [facility] Last Admin: 07/22/18 06:48 Dose: 100 mg Sodium Chloride (Normal Saline -) 250 mls @ 3,000 mls/hr IV PRN PRN PRN Reason: Hypotension during Dialysis Stop: 07/23/18 10:30 Insulin Aspart (Novolog Vial Sliding Scale -) 1 vial SQ ACHS [facility]; Protocol Last Admin: 07/22/18 11:18 Dose: Not Given Insulin Detemir (Levemir Vial) 20 units SQ HS [facility] Last Admin: 07/21/18 22:17 Dose: 20 units Insulin Detemir (Levemir Vial) 10 units SQ AM [facility] Lactic Acid (Lac-Hydrin 12) 1 applic TP BID [facility] Last Admin: 03/31/19 11:02 Dose: 1 applic Losartan Potassium (Cozaar -) 100 mg PO DAILY@0800 [facility] Last Admin: 07/22/18 08:20 Dose: 100 mg Melatonin (Melatonin) 3 mg PO HS [facility] Last Admin: 07/21/18 22:21 Dose: 3 mg Metoclopramide HCl (Reglan -) 10 mg PO TIDAC [facility] Last Admin: 07/22/18 11:06 Dose: 10 mg Nifedipine (Procardia Xl -) 90 mg PO DAILY [facility] Last Admin: 07/22/18 11:00 Dose: 90 mg Pantoprazole Sodium (Protonix -) 40 mg PO DAILY [facility] Last Admin: 07/22/18 11:01 Dose: 40 mg Polyethylene Glycol (Miralax (For Daily Use) -) 17 gm PO DAILY [facility] Last Admin: 07/22/18 11:01 Dose: 17 grams Ranitidine HCl (Zantac -) 150 mg PO DAILY [facility] Last Admin: 07/22/18 11:01 Dose: 150 mg Senna (Senna -) 2 tab PO [facility] Last Admin: 07/21/18 22:14 Dose: 2 tab Vitamin E (Vitamin E -) 400 unit PO DAILY [facility] Last Admin: 07/22/18 11:02 Dose: 400 unit Constitutional: Yes: Well Nourished, NAD Eyes: Yes: WNL HENT: Yes: WNL Neck: Yes: WNL Cardiovascular: Yes: Regular Rate and Rhythm, S1, S2 Respiratory: Yes: Clear, Diminished at the bases Gastrointestinal: Yes: Normal Bowel Sounds, Soft Extremities: Yes: WNL Edema: Yes Labs: Laboratory Results - last 24 hr 07/21/18 07/21/18 07/22/18 16:34 22:13 05:30 Sodium 138 Potassium 4.1 Chloride 100 Carbon Dioxide 28 Anion Gap 10 BUN 51 H Creatinine 6.9 H Creat Clearance w eGFR 6.27 POC Glucometer 207 380 Random Glucose 116 H Calcium 8.5 07/22/18 07/22/18 06:47 11:10 Sodium Potassium Chloride Carbon Dioxide Anion Gap BUN Creatinine Creat Clearance w eGFR POC Glucometer 120 165 Random Glucose Calcium Problem List - Problems (1) Acute pulmonary edema Code(s): J81.0 - ACUTE PULMONARY EDEMA (2) Hypertensive heart disease Code(s): I11.9 - HYPERTENSIVE HEART DISEASE WITHOUT HEART FAILURE Qualifiers: Heart failure presence: with heart failure Heart failure type: diastolic Heart failure chronicity: acute on chronic Qualified Code(s): I11.0 - Hypertensive heart disease with heart failure; I50.33 - Acute on chronic diastolic (congestive) heart failure (3) End stage kidney disease Code(s): N18.6 - END STAGE RENAL DISEASE (4) GERD (gastroesophageal reflux disease) Code(s): K21.9 - GASTRO-ESOPHAGEAL REFLUX DISEASE WITHOUT ESOPHAGITIS (5) Gastroparesis Code(s): K31.84 - GASTROPARESIS (6) Shortness of breath Code(s): R06.02 - SHORTNESS OF BREATH (7) Type 1 diabetes mellitus with diabetic chronic kidney disease Code(s): E10.22 - TYPE 1 DIABETES MELLITUS W DIABETIC CHRONIC KIDNEY DISEASE; N18.9 - CHRONIC KIDNEY DISEASE, UNSPECIFIED (8) Type 1 diabetes mellitus with diabetic nephropathy Code(s): E10.21 - TYPE 1 DIABETES MELLITUS WITH DIABETIC NEPHROPATHY (9) End stage renal disease on dialysis Code(s): N18.6 - END STAGE RENAL DISEASE; Z99.2 - DEPENDENCE ON RENAL DIALYSIS (10) HTN (hypertension) Code(s): I10 - ESSENTIAL (PRIMARY) HYPERTENSION Qualifiers: Hypertension type: essential hypertension Qualified Code(s): I10 - Essential (primary) hypertension (11) Smoking greater than 20 pack years Code(s): F17.210 - NICOTINE DEPENDENCE, CIGARETTES, UNCOMPLICATED Assessment/Plan IMP ACUTE RESPIRATORY FAILURE IMPROVED VOLUME OVERLOAD ESRD ON HD HTN DM ASTHMA NEUROPATHY GASTROPARESIS GERD TOBACCO ABUSE + TROPONIN PULMONARY HTN PLAN HD PER RENAL INHALED BRONCHODILATORS PRN COMPLIANCE WITH MEDS SMOKING CESSATION COUNSELED PFTS OUTPATIENT NO PULMONARY CONTRAINDICATION FOR D/C DR BRANDON
[2018-07-22] MEDS: MELATONIN 1 MG TABLET PO SCH (22:37)
[2018-07-22] MEDS: SENNOSIDES 8.6MG TABLET (FP) PO SCH (22:37)
[2018-07-22] MEDS: INSULIN (LEVEMIR) 100 UNITS/ML UNITS SQ SCH (22:54)
[2018-07-23 05:54] VITALS: TEMP 97.9
[2018-07-23] MEDS: hydrALAZINE HCL 50 MG TABLET (FP) PO SCH (06:44)
[2018-07-23] MEDS: METOCLOPRAMIDE HCL 10 MG TABLET (FP) PO SCH ×2 (06:45→11:54)
[2018-07-23] MEDS: INSULIN SLIDING SCALE (NOVOLOG) 1 VIAL SQ SCH ×2 (06:45→12:02)
[2018-07-23] MEDS: HEPARIN NA (PORCINE) 5,000 UNITS/ML 1ML VIAL SQ SCH (06:50)
[2018-07-23] MEDS ORDERED: INSULIN (LEVEMIR) 100 UNITS/ML UNITS SQ SCH (07:00)
[2018-07-23 09:44] LABS: ANION GAP 12 MMOL/L (8-16); BLOOD UREA NITROGEN 69 mg/dL (7-18); CALCIUM 8.6 mg/dL (8.5-10.1); CHLORIDE 98 mmol/L (98-107); CO2 25 mmol/L (21-32); GLUCOSE,RANDOM 170 mg/dL (74-106); MAGNESIUM 2.3 mg/dL (1.8-2.4); SODIUM 135 mmol/L (136-145)
[2018-07-23 10:08] LABS: CREATININE 8.5 mg/dL (0.55-1.3)
--- NOTE | 2018-07-23 10:16 | PN ---
Progress Note, Physician History of Present Illness: Dyspnea on exertion improved to baseline. BP with improved control. - Current Medication List Current Medications: Active Medications Bisacodyl (Dulcolax -) 20 mg PO DAILY [facility] Last Admin: 07/22/18 11:00 Dose: 20 mg Buspirone HCl (Buspar -) 10 mg PO BID [facility] Last Admin: 07/22/18 22:37 Dose: 10 mg Calcium Acetate (Phoslo -) 667 mg PO TIDCM [facility] Last Admin: 07/22/18 16:45 Dose: 667 mg Carvedilol (Coreg -) 25 mg PO BID [facility] Last Admin: 07/22/18 22:37 Dose: 25 mg Heparin Sodium (Porcine) (Heparin -) 5,000 unit SQ TID [facility] Last Admin: 07/23/18 06:50 Dose: 5,000 unit Hydralazine HCl (Apresoline -) 100 mg PO TID [facility] Last Admin: 07/23/18 06:44 Dose: Not Given Sodium Chloride (Normal Saline -) 250 mls @ 3,000 mls/hr IV PRN PRN PRN Reason: Hypotension during Dialysis Stop: 07/23/18 10:30 Insulin Aspart (Novolog Vial Sliding Scale -) 1 vial SQ [facility]; Protocol Last Admin: 07/23/18 06:45 Dose: Not Given Insulin Detemir (Levemir Vial) 20 units SQ HS [facility] Last Admin: 07/22/18 22:54 Dose: 20 units Insulin Detemir (Levemir Vial) 10 units SQ AM [facility] Last Admin: 07/23/18 06:44 Dose: Not Given Lactic Acid (Lac-Hydrin 12) 1 applic TP BID [facility] Last Admin: 07/22/18 22:42 Dose: 1 applic Losartan Potassium (Cozaar -) 100 mg PO DAILY@0800 [facility] Last Admin: 07/22/18 08:20 Dose: 100 mg Melatonin (Melatonin) 3 mg PO HS [facility] Last Admin: 07/22/18 22:37 Dose: 3 mg Metoclopramide HCl (Reglan -) 10 mg PO TIDAC [facility] Last Admin: 07/23/18 06:45 Dose: Not Given Nifedipine (Procardia Xl -) 90 mg PO DAILY [facility] Last Admin: 07/22/18 11:00 Dose: 90 mg Pantoprazole Sodium (Protonix -) 40 mg PO DAILY [facility] Last Admin: 07/22/18 11:01 Dose: 40 mg Polyethylene Glycol (Miralax (For Daily Use) -) 17 gm PO DAILY [facility] Last Admin: 07/22/18 11:01 Dose: 17 grams Ranitidine HCl (Zantac -) 150 mg PO DAILY [facility] Last Admin: 07/22/18 11:01 Dose: 150 mg Senna (Senna -) 2 tab PO HS [facility] Last Admin: 07/22/18 22:37 Dose: 2 tab Vitamin E (Vitamin E -) 400 unit PO DAILY [facility] Last Admin: 07/22/18 11:02 Dose: 400 unit - Objective Vital Signs: Vital Signs Temperature 97.9 F 07/23/18 05:52 Pulse Rate 80 07/23/18 09:00 Respiratory Rate 18 07/23/18 09:00 Blood Pressure 148/66 07/23/18 09:00 O2 Sat by Pulse Oximetry (%) 97 07/23/18 07:37 Constitutional: Yes: No Distress, Calm Neck: Yes: Supple Cardiovascular: Yes: Regular Rate and Rhythm Respiratory: Yes: Regular, Diminished, On Nasal O2 Gastrointestinal: Yes: Normal Bowel Sounds, Soft, Abdomen, Obese Edema: No Labs: CBC, BMP 07/21/18 06:15 07/23/18 07:00 INR, PTT INR 0.97 (0.83-1.09) 07/17/18 23:21 Problem List - Problems (1) Hypertensive heart disease Code(s): I11.9 - HYPERTENSIVE HEART DISEASE WITHOUT HEART FAILURE Qualifiers: Heart failure presence: with heart failure Heart failure type: diastolic Heart failure chronicity: acute on chronic Qualified Code(s): I11.0 - Hypertensive heart disease with heart failure; I50.33 - Acute on chronic diastolic (congestive) heart failure (2) Demand ischemia Code(s): I24.8 - OTHER FORMS OF ACUTE ISCHEMIC HEART DISEASE (3) Acute pulmonary edema Code(s): J81.0 - ACUTE PULMONARY EDEMA (4) Chest pain Code(s): R07.9 - CHEST PAIN, UNSPECIFIED Qualifiers: Chest pain type: precordial pain Qualified Code(s): R07.2 - Precordial pain (5) Anemia in chronic kidney disease (CKD) Code(s): N18.9 - CHRONIC KIDNEY DISEASE, UNSPECIFIED; D63.1 - ANEMIA IN CHRONIC KIDNEY DISEASE Qualifiers: Chronic kidney disease stage: on chronic dialysis Qualified Code(s): N18.6 - End stage renal disease; D63.1 - Anemia in chronic kidney disease; Z99.2 - Dependence on renal dialysis (6) Diabetes Code(s): E11.9 - TYPE 2 DIABETES MELLITUS WITHOUT COMPLICATIONS Qualifiers: Diabetes mellitus type: type 2 Diabetes mellitus chcf insulin use: with chcf use Diabetes mellitus complication status: with skin complications Diabetes mellitus complication detail: with foot ulcer Qualified Code(s): E11.621 - Type 2 diabetes mellitus with foot ulcer (7) End stage renal disease on dialysis Code(s): N18.6 - END STAGE RENAL DISEASE; Z99.2 - DEPENDENCE ON RENAL DIALYSIS Assessment/Plan 07/16/2018 Echo: Normal LV size with mild cLVH and normal LV fn LVEF 65-70%, normal RV fxn, mild LAE, mild-mod MR, TR, mild NE RVSP 61 mmHg 1. Dsypnea and chest pain referable to acute on chronic recurrent diastolic heart failure resolved 2. ESRD on HD with resolved hyperkalemia 3. +Troponins referable to Demand Ischemia 4. Pulmonary HTN 5. 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 Anemia of CKD P: 1. Volume removal via HD, trops are downtrending 2. Continue carvedilol 25 bid, losartan 100 qd as hyperkalemia resolved, procardia XL 90 qd on hydralazine 3. Addressed importance of medication, diet and HD compliance 4. Outpatient CV evaluation in office given recurrent DCHF
--- NOTE | 2018-07-23 10:43 | DS ---
Physical Exam: SUBJECTIVE: Patient seen and examined, getting HD, no complaints. OBJECTIVE: Vital Signs Period Temp Pulse Resp BP Sys/Rivera Pulse Ox Last 24 Hr 96.8 F-98.2 F 62-80 17-19 115-159/49-75 96-97 Intake & Output 07/20/18 07/21/18 07/22/18 07/23/18 23:59 23:59 23:59 23:59 Intake Total 940 1310 1080 360 Balance 940 1310 1080 360 PHYSICAL EXAM GENERAL: The patient is awake, alert, and fully oriented, in no acute distress, getting HD. HEAD: Normal with no signs of trauma. EYES: PERRL, extraocular movements intact, sclera anicteric, conjunctiva clear. No ptosis. ENT: Ears normal, nares patent, oropharynx clear without exudates, moist mucous membranes. NECK: Trachea midline, full range of motion, supple. LUNGS: CTAB today, no rales or wheezing, good air entry HEART: Regular rate and rhythm, S1, S2 ABDOMEN: Soft, nontender, nondistended, normoactive bowel sounds, no guarding, no rebound EXTREMITIES: trace pedal edema, improved PSYCH: Normal mood, normal affect. SKIN: Warm, dry, normal turgor, no rashes or lesions noted LABS Laboratory Results - last 24 hr 07/22/18 07/22/18 07/22/18 11:10 16:44 22:35 Sodium Potassium Chloride Carbon Dioxide Anion Gap BUN Creatinine Creat Clearance w eGFR POC Glucometer 165 215 432 Random Glucose Calcium Phosphorus Magnesium 07/23/18 07/23/18 05:19 07:00 Sodium 135 L Potassium 4.0 Chloride 98 Carbon Dioxide 25 Anion Gap 12 BUN 69 H Creatinine 8.5 H* Creat Clearance w eGFR 4.93 POC Glucometer 179 Random Glucose 170 H Calcium 8.6 Phosphorus 6.0 H Magnesium 2.3 HOSPITAL COURSE: Date of Admission:07/18/18 Date of Discharge: 07/23/18 Minutes to complete discharge: 40 Discharge Summary Reason For Visit: ACUTE PULMONARY EDEMA Current Active Problems Acute pulmonary edema (Acute) Demand ischemia (Acute) Hypertensive heart disease (Acute) Hospital Course: 52 yof with PMHx of IDDM, ESRD on HD, HTN, anxiety, admitted day prior to admission with hypertensive urgency, when was dialyzed and resumed on her medications with improvement, discharged home came back with hypertensive emergency and flash pulmonary edema in the setting of not taking her BP medications, also with hyperglycemia in the setting of not taking her insulin. She was transiently placed on nitro drip in the ED and received hydralazine. She was seen by nephrology and received multiple sessions of hemodialysis with improvement in her volume status. She was taper off Bipap with no concerns. Cardiology was consulted. Her home medications have been changed as below and compliance was stressed on multiple occasions. Her ramipril was dc.ed and she was started on losartan. Her nifedipine was increased to 90 mg daily, was started on coreg that was titrated up to 25 mg BID and continued on her hydralazine. Her BP improved. She had a 2D echo on recent admission, so was not repeated. She was seen by psychiatry Dr. Cortes and her seroquel was discontinued and placed on buspirone. She will be discharged in stable condition with outpatient HD and follow up. Condition: Stable - Instructions Diet, Activity, Other Instructions: You were admitted with high blood pressure and fluid overload. Your received multiple rounds of dialysis and your BP medications have been changed. You were also seen by psychiatrist and your medications have been changed. MEDICATIONS: Stop these medications: Ramipril (5 mg daily) Nifedipine ER (60 mg daily) Seroquel(25 mg at bedtime) Start these medications: Coreg 25 mg twice daily Losartan 100 mg daily Nifedipine ER (90 mg daily) Continue other medications including insulin as before INSTRUCTIONS: It is very important that you take all your BP medications as instructed and regularly follow up with your doctor and maintain a low salt diet. Weigh yourself daily, and notify your doctor right away if weight gain > 3 lbs in 2 days Also please check your blood sugars before meals and at bedtime and maintain a diary. Notify your doctor if < 75 or persistently >200 or any reading >350 noted. FOLLOW UP: With Dr. Patterson in 2 Days for dialysis and further management [employer] Dr. Muniz in [address] Cortes in 2-3 weeks If you notice any new headache, chest pain, trouble breathing, vision changes or any new concerns, please call 911 or come to the ED> Referrals: Verona Cortes MD [Staff Physician] - Chavez Muniz MD [Staff Physician] - 2 Weeks Derrek Patterson MD [Staff Physician] - 1 Week Disposition: HOME - Home Medications Comprehensive Discharge Medication List: Ambulatory Orders Ammonium Lactate Cream [Lac-Hydrin 12% Cream -] 1 applic TP BID 12/14/16 Baclofen 10 mg PO HS 12/14/16 Bisacodyl [Bisacodyl -] 5 mg PO DAILY 12/14/16 Calcium Acetate 667 mg PO AC 12/14/16 Dexlansoprazole [Dexilant] 60 mg PO DAILY 12/14/16 Hydralazine HCl 100 mg PO TID 12/14/16 Melatonin 3 mg PO HS 12/14/16 Metoclopramide HCl [Reglan -] 10 mg PO TID 12/14/16 Ranitidine [Zantac -] 150 mg PO DAILY 12/14/16 Sennosides [Senna -] 2 tab PO HS 12/14/16 Vitamin E 400 unit PO DAILY 12/14/16 Insulin (Levemir) [Levemir Vial] 20 units SQ HS #1 ml 12/16/16 Insulin (Levemir) [Levemir Vial] 35 units SQ AM #1 ml 12/16/16 Buspirone HCl [Buspar -] 10 mg PO BID 30 Days #60 tablet 07/23/18 Carvedilol [Coreg -] 25 mg PO BID 30 Days #60 tablet 07/23/18 Losartan Potassium 100 mg PO DAILY #30 tablet 07/23/18 Nifedipine ER [Procardia XL -] 90 mg PO DAILY #30 tab.er.24 07/23/18 This patient is new to me today: No Emergency Visit: Yes ED Registration Date: 07/18/18 Care time: The patient presented to the Emergency Department on the above date and was hospitalized for further evaluation of their emergent condition. Critical Care patient: No - Discharge Referral Referred to [facility] No
[2018-07-23 11:29] VITALS: BP 156/73; PULSE 72
[2018-07-23] MEDS: RANITIDINE HCL 150 MG TABLET (FP) PO SCH (11:52)
[2018-07-23] MEDS: busPIRone HCL 10 MG TABLET (FP) PO SCH (11:52)
[2018-07-23] MEDS: VITAMIN E 400 INTERNATIONAL-UNITS CAPSULE (FP) PO SCH (11:53)
[2018-07-23] MEDS: CARVEDILOL 25 MG TABLET (FP) PO SCH (11:54)
[2018-07-23] MEDS: LOSARTAN POTASSIUM 50 MG TABLET (FP) PO SCH (11:54)
[2018-07-23] MEDS: PANTOPRAZOLE 40 MG TABLET (FP) PO SCH (11:54)
[2018-07-23] MEDS: NIFEdipine E.R. 30 MG TABLET (FP) PO SCH (11:54)
[2018-07-23] MEDS: BISACODYL 5 MG TABLET.DR (FP) PO SCH (11:55)
[2018-07-23] MEDS: CALCIUM ACETATE 667 MG CAPSULE (FP) PO SCH (11:55)
[2018-07-23] MEDS: POLYETHYLENE GLYCOL 3350 119 GM BTL PO SCH (12:02)
[2018-07-23] MEDS: AMMONIUM LACTATE 12% LOTION 225 GM BOTTLE TP SCH (12:02)
--- NOTE | 2018-07-23 12:14 | PN ---
Progress Note, Physician History of Present Illness: Pt seen and examined at bedside. She is awake and alert. She tolerated HD. - Current Medication List Current Medications: Active Medications Bisacodyl (Dulcolax -) 20 mg PO DAILY [facility] Last Admin: 07/23/18 11:55 Dose: 20 mg Buspirone HCl (Buspar -) 10 mg PO BID [facility] Last Admin: 07/23/18 11:52 Dose: 10 mg Calcium Acetate (Phoslo -) 667 mg PO TIDCM [facility] Last Admin: 07/23/18 11:55 Dose: 667 mg Carvedilol (Coreg -) 25 mg PO BID [facility] Last Admin: 07/23/18 11:54 Dose: 25 mg Heparin Sodium (Porcine) (Heparin -) 5,000 unit SQ TID [facility] Last Admin: 07/23/18 06:50 Dose: 5,000 unit Hydralazine HCl (Apresoline -) 100 mg PO TID [facility] Last Admin: 07/23/18 06:44 Dose: Not Given Insulin Aspart (Novolog Vial Sliding Scale -) 1 vial SQ [facility]; Protocol Last Admin: 07/23/18 12:02 Dose: Not Given Insulin Detemir (Levemir Vial) 20 units SQ HS [facility] Last Admin: 07/22/18 22:54 Dose: 20 units Insulin Detemir (Levemir Vial) 10 units SQ AM [facility] Last Admin: 07/23/18 06:44 Dose: Not Given Lactic Acid (Lac-Hydrin 12) 1 applic TP BID [facility] Last Admin: 07/23/18 12:02 Dose: Not Given Losartan Potassium (Cozaar -) 100 mg PO DAILY@0800 [facility] Last Admin: 07/23/18 11:54 Dose: 100 mg Melatonin (Melatonin) 3 mg PO HS [facility] Last Admin: 07/22/18 22:37 Dose: 3 mg Metoclopramide HCl (Reglan -) 10 mg PO TIDAC [facility] Last Admin: 07/23/18 11:54 Dose: 10 mg Nifedipine (Procardia Xl -) 90 mg PO DAILY [facility] Last Admin: 07/23/18 11:54 Dose: 90 mg Pantoprazole Sodium (Protonix -) 40 mg PO DAILY [facility] Last Admin: 07/23/18 11:54 Dose: 40 mg Polyethylene Glycol (Miralax (For Daily Use) -) 17 gm PO DAILY [facility] Last Admin: 07/23/18 12:02 Dose: Not Given Ranitidine HCl (Zantac -) 150 mg PO DAILY [facility] Last Admin: 07/23/18 11:52 Dose: 150 mg Senna (Senna -) 2 tab PO HS [facility] Last Admin: 07/22/18 22:37 Dose: 2 tab Vitamin E (Vitamin E -) 400 unit PO DAILY [facility] Last Admin: 07/23/18 11:53 Dose: 400 unit - Objective Vital Signs: Vital Signs Temperature 97.9 F 07/23/18 05:52 Pulse Rate 72 07/23/18 11:28 Respiratory Rate 18 07/23/18 11:28 Blood Pressure 156/73 07/23/18 11:28 O2 Sat by Pulse Oximetry (%) 97 07/23/18 07:37 Constitutional: Yes: Calm Eyes: Yes: Conjunctiva Clear HENT: Yes: Atraumatic Neck: Yes: Supple Cardiovascular: Yes: S1, S2 Respiratory: Yes: CTA Bilaterally Gastrointestinal: Yes: Soft, Abdomen, Obese Genitourinary: Yes: WNL Musculoskeletal: Yes: WNL Edema: No Neurological: Yes: Oriented Psychiatric: Yes: Oriented Labs: CBC, BMP 07/21/18 06:15 07/23/18 07:00 INR, PTT INR 0.97 (0.83-1.09) 07/17/18 23:21 Problem List - Problems (1) End stage kidney disease Code(s): N18.6 - END STAGE RENAL DISEASE Assessment/Plan Current Medications Generic Name Dose Route Start Last Admin Trade Name Ignacio PRN Reason Stop Dose Admin Bisacodyl 20 mg 07/18/18 10:00 07/23/18 11:55 Dulcolax - PO 20 mg DAILY [facility] Administration Buspirone HCl 10 mg 07/18/18 22:00 07/23/18 11:52 Buspar - PO 10 mg BID [facility] Administration Calcium Acetate 667 mg 07/18/18 12:00 07/23/18 11:55 Phoslo - PO 667 mg TIDCM [facility] Administration Carvedilol 25 mg 07/21/18 22:00 07/23/18 11:54 Coreg - PO 25 mg BID [facility] Administration Heparin Sodium (Porcine) 5,000 unit 07/18/18 14:00 07/23/18 06:50 Heparin - SQ 5,000 unit TID [facility] Administration Hydralazine HCl 100 mg 07/18/18 22:00 07/23/18 06:44 Apresoline - PO Not Given TID [facility] Insulin Aspart 1 vial 07/18/18 16:30 07/23/18 12:02 Novolog Vial Sliding Scale - SQ Not Given ACHS [facility] Protocol Insulin Detemir 20 units 07/19/18 14:25 07/22/18 22:54 Levemir Vial SQ 20 units HS [facility] Administration Insulin Detemir 10 units 07/23/18 07:00 07/23/18 06:44 Levemir Vial SQ Not Given AM [facility] Lactic Acid 1 applic 07/18/18 22:00 07/23/18 12:02 Lac-Hydrin 12 TP Not Given BID [facility] Losartan Potassium 100 mg 07/22/18 08:00 07/23/18 11:54 Cozaar - PO 100 mg DAILY@0800 [facility] Administration Melatonin 3 mg 07/18/18 22:00 07/22/18 22:37 Melatonin PO 3 mg HS [facility] Administration Metoclopramide HCl 10 mg 07/18/18 11:00 07/23/18 11:54 Reglan - PO 10 mg TIDAC [facility] Administration Nifedipine 90 mg 07/21/18 10:29 07/23/18 11:54 Procardia Xl - PO 90 mg DAILY [facility] Administration Pantoprazole Sodium 40 mg 07/19/18 10:00 07/23/18 11:54 Protonix - PO 40 mg DAILY [facility] Administration Polyethylene Glycol 17 gm 07/19/18 10:00 07/23/18 12:02 Miralax (For Daily Use) - PO Not Given DAILY [facility] Ranitidine HCl 150 mg 07/19/18 10:00 07/23/18 11:52 Zantac - PO 150 mg DAILY [facility] Administration Senna 2 tab 07/18/18 22:00 07/22/18 22:37 Senna - PO 2 tab HS [facility] Administration Vitamin E 400 unit 07/19/18 10:00 07/23/18 11:53 Vitamin E - PO 400 unit DAILY [facility] Administration Impression 1. ESRD 2. DM 3. HTN 4. gastroparesis 5. nausea 6. anemia 7. peripheral neuropathy 8. sudden onset shortness of breath Plan - pt tolerated HD - bp is improving - discussed renal diet and fluid intake - should be on 3:45 for HD, she agrees - HD time 345 400 abf 1999 heparin - monitor bp - will follow Dr Arredondo
--- NOTE | 2018-07-23 12:32 | PN ---
Progress Note (short form) - Note Progress Note: Feels overall better. Comfortable on RA. Intake & Output 07/20/18 07/21/18 07/22/18 07/23/18 23:59 23:59 23:59 23:59 Intake Total 940 1310 1080 360 Balance 940 1310 1080 360 Last Vital Signs Temp Pulse Resp BP Pulse Ox 97.9 F 72 18 156/73 97 07/23/18 05:52 07/23/18 11:28 07/23/18 11:28 07/23/18 11:28 07/23/18 07:37 Active Medications Bisacodyl (Dulcolax -) 20 mg PO DAILY [facility] Last Admin: 07/23/18 11:55 Dose: 20 mg Buspirone HCl (Buspar -) 10 mg PO BID [facility] Last Admin: 07/23/18 11:52 Dose: 10 mg Calcium Acetate (Phoslo -) 667 mg PO TIDCM [facility] Last Admin: 07/23/18 11:55 Dose: 667 mg Carvedilol (Coreg -) 25 mg PO BID [facility] Last Admin: 07/23/18 11:54 Dose: 25 mg Heparin Sodium (Porcine) (Heparin -) 5,000 unit SQ TID [facility] Last Admin: 07/23/18 06:50 Dose: 5,000 unit Hydralazine HCl (Apresoline -) 100 mg PO TID [facility] Last Admin: 07/23/18 06:44 Dose: Not Given Insulin Aspart (Novolog Vial Sliding Scale -) 1 vial SQ [facility]; Protocol Last Admin: 07/23/18 12:02 Dose: Not Given Insulin Detemir (Levemir Vial) 20 units SQ HS [facility] Last Admin: 07/22/18 22:54 Dose: 20 units Insulin Detemir (Levemir Vial) 10 units SQ AM [facility] Last Admin: 07/23/18 06:44 Dose: Not Given Lactic Acid (Lac-Hydrin 12) 1 applic TP BID [facility] Last Admin: 07/23/18 12:02 Dose: Not Given Losartan Potassium (Cozaar -) 100 mg PO DAILY@0800 [facility] Last Admin: 07/23/18 11:54 Dose: 100 mg Melatonin (Melatonin) 3 mg PO [facility] Last Admin: 07/22/18 22:37 Dose: 3 mg Metoclopramide HCl (Reglan -) 10 mg PO TIDAC [facility] Last Admin: 07/23/18 11:54 Dose: 10 mg Nifedipine (Procardia Xl -) 90 mg PO DAILY [facility] Last Admin: 07/23/18 11:54 Dose: 90 mg Pantoprazole Sodium (Protonix -) 40 mg PO DAILY [facility] Last Admin: 07/23/18 11:54 Dose: 40 mg Polyethylene Glycol (Miralax (For Daily Use) -) 17 gm PO DAILY [facility] Last Admin: 07/23/18 12:02 Dose: Not Given Ranitidine HCl (Zantac -) 150 mg PO DAILY [facility] Last Admin: 07/23/18 11:52 Dose: 150 mg Senna (Senna -) 2 tab PO HS [facility] Last Admin: 07/22/18 22:37 Dose: 2 tab Vitamin E (Vitamin E -) 400 unit PO DAILY [facility] Last Admin: 07/23/18 11:53 Dose: 400 unit Constitutional: Yes: Well Nourished, NAD Eyes: Yes: WNL HENT: Yes: WNL Neck: Yes: WNL Cardiovascular: Yes: Regular Rate and Rhythm, S1, S2 Respiratory: Yes: Clear, Diminished at the bases Gastrointestinal: Yes: Normal Bowel Sounds, Soft Extremities: Yes: WNL Edema: Yes Labs: Laboratory Results - last 24 hr 07/22/18 07/22/18 07/23/18 16:44 22:35 05:19 Sodium Potassium Chloride Carbon Dioxide Anion Gap BUN Creatinine Creat Clearance w eGFR POC Glucometer 215 432 179 Random Glucose Calcium Phosphorus Magnesium 07/23/18 07:00 Sodium 135 L Potassium 4.0 Chloride 98 Carbon Dioxide 25 Anion Gap 12 BUN 69 H Creatinine 8.5 H* Creat Clearance w eGFR 4.93 POC Glucometer Random Glucose 170 H Calcium 8.6 Phosphorus 6.0 H Magnesium 2.3 Problem List - Problems (1) Acute pulmonary edema Code(s): J81.0 - ACUTE PULMONARY EDEMA (2) Hypertensive heart disease Code(s): I11.9 - HYPERTENSIVE HEART DISEASE WITHOUT HEART FAILURE Qualifiers: Heart failure presence: with heart failure Heart failure type: diastolic Heart failure chronicity: acute on chronic Qualified Code(s): I11.0 - Hypertensive heart disease with heart failure; I50.33 - Acute on chronic diastolic (congestive) heart failure (3) End stage kidney disease Code(s): N18.6 - END STAGE RENAL DISEASE (4) GERD (gastroesophageal reflux disease) Code(s): K21.9 - GASTRO-ESOPHAGEAL REFLUX DISEASE WITHOUT ESOPHAGITIS (5) Gastroparesis Code(s): K31.84 - GASTROPARESIS (6) Shortness of breath Code(s): R06.02 - SHORTNESS OF BREATH (7) Type 1 diabetes mellitus with diabetic chronic kidney disease Code(s): E10.22 - TYPE 1 DIABETES MELLITUS W DIABETIC CHRONIC KIDNEY DISEASE; N18.9 - CHRONIC KIDNEY DISEASE, UNSPECIFIED (8) Type 1 diabetes mellitus with diabetic nephropathy Code(s): E10.21 - TYPE 1 DIABETES MELLITUS WITH DIABETIC NEPHROPATHY (9) End stage renal disease on dialysis Code(s): N18.6 - END STAGE RENAL DISEASE; Z99.2 - DEPENDENCE ON RENAL DIALYSIS (10) HTN (hypertension) Code(s): I10 - ESSENTIAL (PRIMARY) HYPERTENSION Qualifiers: Hypertension type: essential hypertension Qualified Code(s): I10 - Essential (primary) hypertension (11) Smoking greater than 20 pack years Code(s): F17.210 - NICOTINE DEPENDENCE, CIGARETTES, UNCOMPLICATED Assessment/Plan IMP ACUTE RESPIRATORY FAILURE IMPROVED VOLUME OVERLOAD ESRD ON HD HTN DM ASTHMA NEUROPATHY GASTROPARESIS GERD TOBACCO ABUSE + TROPONIN PULMONARY HTN PLAN HD PER RENAL INHALED BRONCHODILATORS PRN COMPLIANCE WITH MEDS SMOKING CESSATION COUNSELED PFTS OUTPATIENT NO PULMONARY CONTRAINDICATION FOR D/C DR BRANDON
== END 2018-07-23 12:30 | disposition home or self-care (01) | DRG 291 ==
LOC: JER 22:53 → INTOOBSV 07-18 02:05 → JERBED 07-18 02:05 → J4W 07-18 08:37 → OBSVTOIN 07-18 14:34
PROVIDERS: ADMIT Internal Medicine; ATTEND Hospitalist
PROC: 5A1D70Z Performance of Urinary Filtration, Intermittent, Less than 6 Hours Per Day (ICD-10-PCS; principal; 2018-07-18)
DX: I13.2 Hypertensive heart and chronic kidney disease with heart failure and with stage 5 chronic kidney disease, or end stage renal disease (principal); I50.33 Acute on chronic diastolic (congestive) heart failure; N18.6 End stage renal disease; J96.01 Acute respiratory failure with hypoxia; I16.1 Hypertensive emergency; I24.8 Other forms of acute ischemic heart disease; K21.9 Gastro-esophageal reflux disease without esophagitis; F32.9 Major depressive disorder, single episode, unspecified; F41.9 Anxiety disorder, unspecified; E11.22 Type 2 diabetes mellitus with diabetic chronic kidney disease; Z99.2 Dependence on renal dialysis; E11.65 Type 2 diabetes mellitus with hyperglycemia; R74.0 Nonspecific elevation of levels of transaminase and lactic acid dehydrogenase [LDH]; I27.20 Pulmonary hypertension, unspecified; E11.42 Type 2 diabetes mellitus with diabetic polyneuropathy; D63.1 Anemia in chronic kidney disease; E87.5 Hyperkalemia; Z91.14 Patient's other noncompliance with medication regimen; F17.200 Nicotine dependence, unspecified, uncomplicated; E11.43 Type 2 diabetes mellitus with diabetic autonomic (poly)neuropathy; K31.84 Gastroparesis; K59.00 Constipation, unspecified; Z79.4 Long term (current) use of insulin
CPT/HCPCS: 36415; 36600; 71045-TC-FY; 80048; 80053; 80061; 82009; 82550; 82803; 82962; 83605; 83721; 83735; 83880; 84100; 84443; 84484; 85025; 85027; 85610; 85730; 87040; 93005; 93010; 94640; 94660; 99285-25; G0378; J0131; J0885; J1644

== ENCOUNTER 2019-04-02 17:36 | Inpatient (IN) | payer OTHER ==
[2019-04-02] MEDS ORDERED: morphine CARPU-JECT 4 MG/1 ML DISP.SYRIN IVPUSH ONE (18:32)
[2019-04-02] MEDS ORDERED: CLINDAMYCIN 600MG PREMIX IVPB 600 MG/50 ML BAG IVPB ONE ×2 (18:32→18:52)
--- NOTE | 2019-04-02 18:43 | PDOC ---
History of Present Illness - General Chief Complaint: Wound Stated Complaint: L FOOT INFECTION Time Seen by Provider: 04/02/19 18:30 History Source: Patient - History of Present Illness Occurred: reports: other Severity: Yes: severe Lower Extremity Pain Location: left: 5th toe, foot, ankle, leg Past History - Past Medical History Allergies/Adverse Reactions: Allergies Allergy/AdvReac Type Severity Reaction Status Date / Time No Known Allergies Allergy Verified 04/02/19 17:46 Home Medications: Ambulatory Orders Ammonium Lactate Cream [Lac-Hydrin 12% Cream -] 1 applic TP BID 12/14/16 Baclofen 10 mg PO HS 12/14/16 Bisacodyl [Bisacodyl -] 5 mg PO DAILY 12/14/16 Calcium Acetate 667 mg PO AC 12/14/16 Dexlansoprazole [Dexilant] 60 mg PO DAILY 12/14/16 Hydralazine HCl 100 mg PO TID 12/14/16 Melatonin 3 mg PO HS 12/14/16 Metoclopramide HCl [Reglan -] 10 mg PO TID 12/14/16 Ranitidine [Zantac -] 150 mg PO DAILY 12/14/16 Sennosides [Senna -] 2 tab PO HS 12/14/16 Vitamin E 400 unit PO DAILY 12/14/16 Insulin (Levemir) [Levemir Vial] 20 units SQ HS #1 ml 12/16/16 Insulin (Levemir) [Levemir Vial] 35 units SQ AM #1 ml 12/16/16 Buspirone HCl [Buspar -] 10 mg PO BID 30 Days #60 tablet 07/23/18 Carvedilol [Coreg -] 25 mg PO BID 30 Days #60 tablet 07/23/18 Losartan Potassium 100 mg PO DAILY #30 tablet 07/23/18 Nifedipine ER [Procardia XL -] 90 mg PO DAILY #30 tab.er.24 07/23/18 Anemia: Yes Asthma: Yes COPD: No Diabetes: Yes Dialysis: Yes ([facility]) GI Disorders: Yes (GASTRITIS,CONSTIPATION,ACID REFLUX) Disorders: Yes (HEMODIALYSIS) HTN: Yes Hypercholesterolemia: Yes - Surgical History Orthopedic Surgery: Yes (r hand sx for broken r thumb) - Immunization History Immunization Up to Date: Yes - Psycho Social/Smoking Cessation Hx Smoking Status: No Smoking History: Never smoked Have you smoked in the past 12 months: No Number of Cigarettes Smoked Daily: 6 Cigars Per Day: 0 Information on smoking cessation initiated: No 'Breaking Loose' booklet given: 07/16/18 Hx Alcohol Use: No Drug/Substance Use Hx: No Substance Use Type: None Hx Substance Use Treatment: No Review of Systems - Review of Systems Constitutional: No: Chills, Fever Integumentary: Yes: Erythema *Physical Exam - Vital Signs Last Vital Signs Temp Pulse Resp BP Pulse Ox 98.1 F 78 20 160/68 97 04/02/19 17:38 04/02/19 17:38 04/02/19 17:38 04/02/19 17:38 04/02/19 17:38 - Physical Exam General Appearance: Yes: Appropriately Dressed, Severe Distress HEENT: positive: Normal Voice Neck: positive: Supple Respiratory/Chest: negative: Respiratory Distress Extremity: positive: Other (draining ulcer to L 5th toe w/ diffuse erythema/ edema/ttp to L foot extending into ankle/leg, no blisters or crepitus) Integumentary: positive: Dry, Warm Neurologic: positive: Fully Oriented, Alert, Normal Mood/Affect ED Treatment Course - RADIOLOGY Radiology Studies Ordered: Category Date Time Status CHEST PA & LAT [RAD] Stat Radiology 04/02/19 18:34 Ordered FOOT-LEFT [RAD] Stat Radiology 04/02/19 18:35 Ordered Medical Decision Making - Medical Decision Making 04/02/19 18:38 53-year-old female, h/o anxiety, HTN< IDDM< ESRD on HD (M/W/F), last dialyzed yesterday, LE cellulitis, here w/ pain, redness and swelling of LLE. Patient states 2 weeks ago noticed wound to L 5th toe and since then has had progressive symptoms. For unclear reasons did not go to the ER or go see her vascular doctor, Dr. Mcclain. Denies any fever or chills see exam LLE cellulitis No systemic sxs Stable here w/ draining ulcer to L 5th toe w/ diffuse erythema/swelling/ttp extending into foot and ankle -pain control -abx (prior wound cx reviewed) -Labs -XR -c/w vasc and renal -admit 04/02/19 19:00 Signed out to night ROSS pending work-up and admission Discharge - Discharge Information Problems reviewed: Yes Clinical Impression/Diagnosis: Cellulitis of left lower extremity Condition: Fair - Admission Yes - Follow up/Referral Referrals: Chalino Mcclain MD [Primary Care Provider] - - Patient Discharge Instructions - Post Discharge Activity
[2019-04-02] MEDS ORDERED: morphine SULFATE 4 MG/ML VIAL ONE (19:23)
[2019-04-02 19:26] LABS: BASO % 0.8 % (0-2.0); EOS % 0.2 % (0-4.5); HEMATOCRIT 29.2 % (32.4-45.2); HEMOGLOBIN 9.6 GM/dL (10.7-15.3); LYMPH % 11.3 % (8-40); MCH 31.3 pg (25.7-33.7); MCHC 32.9 g/dl (32.0-36.0); MEAN CELL VOLUME 95.2 fl (80-96); MEAN PLT VOLUME 10.1 fl (7.5-11.1); MONO % 9.4 % (3.8-10.2); NEUT % 78.3 % (42.8-82.8); PLATELET COUNT 316 K/MM3 (134-434); RBC 3.07 M/mm3 (3.60-5.2); RDW 14.6 % (11.6-15.6)
--- NOTE | 2019-04-02 19:46 | PDOC ---
*Physical Exam - Vital Signs Last Vital Signs Temp Pulse Resp BP Pulse Ox 98.1 F 78 20 160/68 97 04/02/19 17:38 04/02/19 17:38 04/02/19 17:38 04/02/19 17:38 04/02/19 17:38 - Physical Exam Integumentary: positive: Other (5th toe is draining serosangious drainage, erythema extending to the the foot, foot is warm to touch no streaking) Neurologic: positive: Fully Oriented, Alert ED Treatment Course - LABORATORY CBC & Chemistry Diagram: 04/02/19 19:00 04/02/19 20:24 - ADDITIONAL ORDERS Additional order review: Laboratory Results 04/02/19 19:00 Anti-A Titer Cancelled Blood Type Cancelled Antibody Screen Cancelled 04/02/19 19:00 RBC 3.07 L MCV 95.2 MCHC 32.9 RDW 14.6 MPV 10.1 Neutrophils % 78.3 D Lymphocytes % 11.3 D Monocytes % 9.4 Eosinophils % 0.2 D Basophils % 0.8 Medical Decision Making - Medical Decision Making 04/02/19 22:43 patient signed out to hospitalist team. vancomycin added 04/03/19 00:10 Discharge - Discharge Information Problems reviewed: Yes Clinical Impression/Diagnosis: Cellulitis of left lower extremity Condition: Fair - Admission Yes - Follow up/Referral - Patient Discharge Instructions - Post Discharge Activity
[2019-04-02 19:47] LABS: INR 1.04 (0.83-1.09); PROTHROMBIN TIME (PATIENT) 12.3 SEC (9.7-13.0)
[2019-04-02 22:24] LABS: ALBUMIN 3.1 g/dl (3.4-5.0); BILIRUBIN,TOTAL 0.5 mg/dL (0.2-1); BLOOD UREA NITROGEN 34.8 mg/dL (7-18); CALCIUM 8.6 mg/dL (8.5-10.1); CREATININE 6.6 mg/dL (0.55-1.3); POTASSIUM 4.4 mmol/L (3.5-5.1); TOT PROT 7.5 g/dl (6.4-8.2)
[2019-04-02] MEDS ORDERED: VANCOMYCIN 1 GM in D5W (PRE-DOCKED) 1,000 MG/250 ML IVPB ONE (22:32)
[2019-04-02] MEDS ORDERED: ACETAMINOPHEN 325 MG TABLET (FP) PO ONE (22:33)
--- NOTE | 2019-04-02 22:36 | PN ---
Teaching Attending Note Name of Resident: Gricelda Oviedo ATTENDING PHYSICIAN STATEMENT I saw and evaluated the patient. I reviewed the resident's note and discussed the case with the resident. I agree with the resident's findings and plan as documented. SUBJECTIVE: Patient is a 53 year old woman with PMH of Depression, Anxiety, HTN, IDDM, ESRD on HD (M/W/F), last dialyzed yesterday, GERD, Gastroparesis, Neuropathy, LE cellulitis, here with pain, redness and swelling of LLE. Patient states 2 weeks ago noticed wound to left 5th toe and since then has had progressive symptoms. For unclear reasons did not go to the ER or go see her vascular doctor, Dr. Mcclain. Denies any fever, chills, nausea, vomiting, chest pain, abdominal pain, diarrhea, dysuria or headache. Denies tobacco, alcohol or illicit drug use. No recent travel or sick contacts. Has FH of bone cancer, colon cnacer and DM. OBJECTIVE: Alert Vital Signs Period Temp Pulse Resp BP Sys/Rivera Pulse Ox Last 24 Hr 98.1 F 78 20 160/68 97 HEENT: No Jaundice, eye redness or discharge, PERRLA, EOMI. Normocephalic, atraumatic. External ears are normal and hearing is grossly intact. No nasal discharge. Neck: Supple, nontender. No palpable adenopathy or thyromegaly. No JVD Chest: Good effort. Clear to auscultation and percussion. Heart: Regular. No S3, rub or murmur Abdomen: Not distended, soft, nontender and no HSM. No rebound or guarding. Normal bowel sounds. Ext: Peripheral pulses intact. No leg edema. Left 5th toe ulcer with drainage; surrounded by erythema. Swollen and tenderness extending into foot and ankle. LUE AV fistula. Skin: Warm and dry. No petechiae, rash or ecchymosis. Neuro: Alert. Oriented x3. CN 2-12 grossly intact. Sensation grossly intact in all four extremities and DTR are symmetric. Psych: Appropriate mood and affect. Good insight. Home Medications Medication Instructions Recorded Ammonium Lactate Cream [Lac-Hydrin 1 applic TP BID 12/14/16 12% Cream -] Baclofen 10 mg PO HS 12/14/16 Bisacodyl [Bisacodyl -] 5 mg PO DAILY 12/14/16 Calcium Acetate 667 mg PO AC 12/14/16 Dexlansoprazole [Dexilant] 60 mg PO DAILY 12/14/16 Hydralazine HCl 100 mg PO TID 12/14/16 Melatonin 3 mg PO HS 12/14/16 Metoclopramide HCl [Reglan -] 10 mg PO TID 12/14/16 Ranitidine [Zantac -] 150 mg PO DAILY 12/14/16 Sennosides [Senna -] 2 tab PO HS 12/14/16 Vitamin E 400 unit PO DAILY 12/14/16 Insulin (Levemir) [Levemir Vial] 20 units SQ HS #1 ml 12/16/16 Insulin (Levemir) [Levemir Vial] 35 units SQ AM #1 ml 12/16/16 Buspirone HCl [Buspar -] 10 mg PO BID 30 Days #60 tablet 07/23/18 Carvedilol [Coreg -] 25 mg PO BID 30 Days #60 tablet 07/23/18 Losartan Potassium 100 mg PO DAILY #30 tablet 07/23/18 Nifedipine ER [Procardia XL -] 90 mg PO DAILY #30 tab.er.24 07/23/18 Abnormal Lab Results 04/02/19 04/02/19 04/02/19 19:00 19:00 19:00 WBC 13.0 H RBC 3.07 L Hgb 9.6 L Hct 29.2 L Absolute Neuts (auto) 10.2 H ESR 101 H Sodium Chloride BUN Creatinine Random Glucose Alkaline Phosphatase C-Reactive Protein 18.8 H Albumin 04/02/19 20:24 WBC RBC Hgb Hct Absolute Neuts (auto) ESR Sodium 128 L Chloride 94 L BUN 34.8 H Creatinine 6.6 H Random Glucose 334 H Alkaline Phosphatase 167 H C-Reactive Protein Albumin 3.1 L ASSESSMENT AND PLAN: 1. Diabetic foot infection and cellulitis - Foot xray and CXR didnot reveal any abnormality. Will treat with IV Zosyn and Vancomycin - adjusted for GFR. Will get MRI of left foot, consult ID and Podiatry. EKG shows NSR with no significant ST-T wave changes. Will continue comprehensive care for all of patients comorbid conditions. 2. Hypoalbuminemia - Possibly due to combined effects of malnutrition and inflammation associated with comorbid chronic conditions. Will ensure adequate dietary protein intake and also consult aircraft structural fitter. 3. DM For now, we will hold the home diabetes drugs and implement sliding scale insulin regimen. Provide comprehensive diabetes care with patient teaching and counseling about the importance of adherence to prescribed diabetes regimen, euglycemia, eye care and foot care. 4. ESRD - Will consult nephrology for hemodialysis. Continue to avoid nephrotoxic agents such as NSAIDS, aminoglycosides, contrast dyes and certain Alternative medicine products. 5. Anemia - Likely mainly due to CKD. Will do basic anemia work up including serial stool guaiacs, reticulocyte count and iron studies. Ensure adequate iron stores to optimize response to Procrit. 6. Obesity Counseled on the risks associated with obesity. Will provide patient all the necessary assistance, counseling and positive reinforcement to facilitate weight loss. Consult aircraft structural fitter. 7. Hypertension - Restart suitable outpatient antihypertensive drugs when clinically appropriate. Revise regimen to ensure [id number] excellent BP control and claims counsel patient on the injurious effects of uncontrolled hypertension. Nonpharmacologic measures to control hypertension like weight loss , salt restriction and exercise discussed. Importance of adherence to treatment regimen and attainment of normotension emphasized. 8. DVT prophylaxis - Heparin 5000u sq tid. 9. Advance directives - Full code
[2019-04-02] MEDS ORDERED: VANCOMYCIN 1 GRAM (PRE-DOCKED) 1,000 MG/250 ML BAG IVPB ONE (23:37)
[2019-04-03] MEDS ORDERED: ACETAMINOPHEN 325 MG TABLET (FP) PO PRN (00:02)
--- NOTE | 2019-04-03 00:28 | HP ---
CHIEF COMPLAINT:left 5th toe wound PCP:Dr. Patterson HISTORY OF PRESENT ILLNESS: Patient is a 53 year old female with past medical history of ESRD on HD (MWF), HTN, Type 2 DM (on insulin), GERD, Gastroparesis, Neuropathy, Anxiety/ Depression presented to the ED due to worsening left 5th toe wound that started about 2 weeks ago. Patient reported she has decreased sensation on both feet, and initially reported a blister on her left 5th toe that ruptured after a few days. This was then followed by drainage of blood and pus from the wound. Today , patient reported severe pain, with worsening of the wound now with surrounding erythema and swelling. She called Dr. Mcclain, who advised her to come to the ED for further evaluation. Patient reported subjective fevers and chills, but denies any headache, nausea, vomiting, chest pain, SOB, abdominal pain, diarrhea. ER course was notable for: (1)IV Clindamycin, Vancomycin and Levaquin given (2) (3) Recent Travel:denies PAST MEDICAL HISTORY: ESRD HTN T2DM GERD Gastroparesis Neuropathy Anxiety/Depression PAST SURGICAL HISTORY: x 3 2 ectopic pregnancies Myomectomy Family History: Grand father DM, Brother-bone cancer, Grand father-colon cancer( @ 90) Social History: Smokin/2 ppd >30years Alcohol:denies Drugs: denies Allergies No Known Allergies Allergy (Verified 04/02/19 17:46) HOME MEDICATIONS: Home Medications Medication Instructions Recorded Ammonium Lactate Cream [Lac-Hydrin 1 applic TP BID 12/14/16 12% Cream -] Baclofen 10 mg PO HS 12/14/16 Bisacodyl [Bisacodyl -] 5 mg PO DAILY 12/14/16 Calcium Acetate 667 mg PO AC 12/14/16 Dexlansoprazole [Dexilant] 60 mg PO DAILY 12/14/16 Hydralazine HCl 100 mg PO TID 12/14/16 Melatonin 3 mg PO HS 12/14/16 Metoclopramide HCl [Reglan -] 10 mg PO TID 12/14/16 Ranitidine [Zantac -] 150 mg PO DAILY 12/14/16 Sennosides [Senna -] 2 tab PO HS 12/14/16 Vitamin E 400 unit PO DAILY 12/14/16 Insulin (Levemir) [Levemir Vial] 20 units SQ HS #1 ml 12/16/16 Insulin (Levemir) [Levemir Vial] 35 units SQ AM #1 ml 12/16/16 Buspirone HCl [Buspar -] 10 mg PO BID 30 Days #60 tablet 07/23/18 Carvedilol [Coreg -] 25 mg PO BID 30 Days #60 tablet 07/23/18 Losartan Potassium 100 mg PO DAILY #30 tablet 07/23/18 Nifedipine ER [Procardia XL -] 90 mg PO DAILY #30 tab.er.24 07/23/18 REVIEW OF SYSTEMS CONSTITUTIONAL: Absent: fever, chills, diaphoresis, generalized weakness, malaise, loss of appetite, weight change HEENT: Absent: rhinorrhea, nasal congestion, throat pain, throat swelling, difficulty swallowing, mouth swelling, ear pain, eye pain, visual changes CARDIOVASCULAR: Absent: chest pain, syncope, palpitations, irregular heart rate, lightheadedness , peripheral edema RESPIRATORY: Absent: cough, shortness of breath, dyspnea with exertion, orthopnea, wheezing, stridor, hemoptysis GASTROINTESTINAL: Absent: abdominal pain, abdominal distension, nausea, vomiting, diarrhea, constipation, melena, hematochezia GENITOURINARY: Absent: dysuria, frequency, urgency, hesitancy, hematuria, flank pain, genital pain MUSCULOSKELETAL: Absent: myalgia, arthralgia, joint swelling, back pain, neck pain SKIN: Absent: rash, itching, pallor HEMATOLOGIC/IMMUNOLOGIC: Absent: easy bleeding, easy bruising, lymphadenopathy, frequent infections ENDOCRINE: Absent: unexplained weight gain, unexplained weight loss, heat intolerance, cold intolerance NEUROLOGIC: Absent: headache, focal weakness or paresthesias, dizziness, unsteady gait, seizure, mental status changes, bladder or bowel incontinence PSYCHIATRIC: Absent: anxiety, depression, suicidal or homicidal ideation, hallucinations. PHYSICAL EXAMINATION Vital Signs - 24 hr 04/02/19 04/02/19 17:38 23:07 Temperature 98.1 F 98.9 F Pulse Rate 78 Pulse Rate [ 71 Right Brachial] Respiratory 20 18 Rate Blood Pressure 160/68 Blood Pressure 167/55 L [Right Arm] O2 Sat by Pulse 97 98 Oximetry (%) GENERAL: Awake, alert, and fully oriented, in no acute distress. HEAD: Normal with no signs of trauma. EYES: PERRLA, EOMI, sclera anicteric, conjunctiva clear. EARS, NOSE, THROAT: Moist mucous membranes. NECK: Normal range of motion, supple without lymphadenopathy. LUNGS: Breath sounds equal, clear to auscultation bilaterally. HEART: Regular rate and rhythm, normal S1 and S2 without murmur, rub or gallop. ABDOMEN: Soft, nontender, not distended, normoactive bowel sounds. MUSCULOSKELETAL: Normal range of motion at all joints. LOWER EXTREMITIES: 2+ pulses, warm, well-perfused. No peripheral edema. LLE: + 1cm wound with serosanguinous drainage at the left 5th digit, with surrounding erythema, edema and tenderness NEUROLOGICAL: Cranial nerves II-XII intact. Normal speech. Normal gait. PSYCHIATRIC: Cooperative. Good eye contact. Appropriate mood and affect. Laboratory Results - last 24 hr 04/02/19 04/02/19 04/02/19 19:00 19:00 19:00 WBC 13.0 H RBC 3.07 L Hgb 9.6 L Hct 29.2 L MCV 95.2 MCH 31.3 MCHC 32.9 RDW 14.6 Plt Count 316 MPV 10.1 Absolute Neuts (auto) 10.2 H Neutrophils % 78.3 D Lymphocytes % 11.3 D Monocytes % 9.4 Eosinophils % 0.2 D Basophils % 0.8 Nucleated RBC % 0 ESR 101 H PT with INR INR Sodium Cancelled Potassium Cancelled Chloride Cancelled Carbon Dioxide Cancelled Anion Gap Cancelled BUN Cancelled Creatinine Cancelled Est GFR (CKD-EPI)AfAm Cancelled Est GFR (CKD-EPI)NonAf Cancelled Random Glucose Cancelled Calcium Cancelled Total Bilirubin Cancelled AST Cancelled ALT Cancelled Alkaline Phosphatase Cancelled C-Reactive Protein 18.8 H Total Protein Cancelled Albumin Cancelled Anti-A Titer Blood Type Antibody Screen 04/02/19 04/02/19 04/02/19 19:00 19:00 20:00 WBC RBC Hgb Hct MCV MCH MCHC RDW Plt Count MPV Absolute Neuts (auto) Neutrophils % Lymphocytes % Monocytes % Eosinophils % Basophils % Nucleated RBC % ESR PT with INR 12.30 INR 1.04 Sodium Potassium Chloride Carbon Dioxide Anion Gap BUN Creatinine Est GFR (CKD-EPI)AfAm Est GFR (CKD-EPI)NonAf Random Glucose Calcium Total Bilirubin AST ALT Alkaline Phosphatase C-Reactive Protein Total Protein Albumin Anti-A Titer Cancelled Blood Type Cancelled O POSITIVE Antibody Screen Cancelled Negative 04/02/19 20:24 WBC RBC Hgb Hct MCV MCH MCHC RDW Plt Count MPV Absolute Neuts (auto) Neutrophils % Lymphocytes % Monocytes % Eosinophils % Basophils % Nucleated RBC % ESR PT with INR INR Sodium 128 L Potassium 4.4 Chloride 94 L Carbon Dioxide 24 Anion Gap 10 BUN 34.8 H Creatinine 6.6 H Est GFR (CKD-EPI)AfAm 7.61 Est GFR (CKD-EPI)NonAf 6.56 Random Glucose 334 H Calcium 8.6 Total Bilirubin 0.5 AST 27 ALT 33 Alkaline Phosphatase 167 H C-Reactive Protein Total Protein 7.5 Albumin 3.1 L Anti-A Titer Blood Type Antibody Screen ASSESSMENT/PLAN: Patient is a 53 year old female with past medical history of ESRD on HD (MWF), HTN, Type 2 DM (on insulin),GERD, Gastroparesis, Neuropathy, Anxiety/Depression presented to the ED due to worsening left 5th toe wound that started about 2 weeks ago. #Diabetic foot, Left 5th toe cellulitis -Left foot xray done, and did not show any abnormality as per my read -ESR, CRP elevated, will order MRI to rule out osteomyelitis -Levaquin, Clindamycin and Vancomycin given at the ED -Will continue empiric coverage with IV Vancomycin and Zosyn, renally dosed -Surgery (Dr. Mcclain) consulted. -Podiatry (Dr. Stroud) consulted. -ID (Dr. Downing) consulted. #ESRD on HD -On HD MWF -Nephrology (Dr. Patterson) consulted. #Hypertension -Continue home meds Nifedipine 90mg, Coreg 25mg bid, Losartan 100mg daily #DM -Continue home insulin Levemir regimen BID, 30u HS and 35u AM -Insulin sliding scale implemented -BGM ACHS #FEN -Not on any standing fluids -Routine bmp monitoring -Renal diet #Prophylaxis -Heparin 5000u sq tid #Disposition -full code -admit to med surg Visit type - Emergency Visit Emergency Visit: Yes ED Registration Date: 04/02/19 Care time: The patient presented to the Emergency Department on the above date and was hospitalized for further evaluation of their emergent condition. - New Patient This patient is new to me today: Yes Date on this admission: 04/02/19 - Critical Care Critical Care patient: No ATTENDING PHYSICIAN STATEMENT I saw and evaluated the patient. I reviewed the resident's note and discussed the case with the resident. I agree with the resident's findings and plan as documented. SUBJECTIVE: OBJECTIVE: ASSESSMENT AND PLAN:
[2019-04-03] MEDS ORDERED: PIPERACILLIN/TAZOB 2.25 GM 2.25 GM/50 ML BAG IVPB ONE ×2 (02:16→11:55)
[2019-04-03] MEDS ORDERED: INSULIN (LEVEMIR) 100 UNITS/ML UNITS SQ ONE (02:16)
[2019-04-03] MEDS: PIPERACILLIN/TAZOB 2.25 GM 2.25 GM in DEXTROSE 5%-WATER - 50 ML IVPB SCH ×4 (02:28→18:06)
[2019-04-03] MEDS ORDERED: ACETAMINOPHEN 325 MG TABLET (FP) ONE ×2 (02:45→16:44)
[2019-04-03] MEDS ORDERED: ONDANSETRON 4 MG/2 ML VIAL IVPUSH ONE (03:29)
[2019-04-03] MEDS ORDERED: ONDANSETRON 4 MG/2 ML VIAL ONE (03:29)
[2019-04-03] MEDS ORDERED: HEPARIN NA (PORCINE) 5,000 UNITS/ML 1ML VIAL ONE (06:47)
[2019-04-03] MEDS: HEPARIN NA (PORCINE) 5,000 UNITS/ML 1ML VIAL SQ SCH ×2 (06:48→16:22)
[2019-04-03] MEDS: hydrALAZINE HCL 50 MG TABLET (FP) PO SCH ×3 (07:01→23:58)
[2019-04-03] MEDS ORDERED: METOCLOPRAMIDE HCL 10 MG TABLET (FP) PO ONE ×2 (07:04→17:49)
[2019-04-03] MEDS: METOCLOPRAMIDE HCL 10 MG TABLET (FP) PO SCH ×3 (07:09→18:01)
[2019-04-03 07:35] LABS: BASO % 0.4 % (0-2.0); EOS % 0.3 % (0-4.5); HEMATOCRIT 29.6 % (32.4-45.2); LYMPH % 9.7 % (8-40); MCH 32.2 pg (25.7-33.7); MCHC 33.8 g/dl (32.0-36.0); MEAN CELL VOLUME 95.1 fl (80-96); MEAN PLT VOLUME 9.4 fl (7.5-11.1); MONO % 9.2 % (3.8-10.2); NEUT % 80.4 % (42.8-82.8); PLATELET COUNT 269 K/MM3 (134-434); RBC 3.12 M/mm3 (3.60-5.2); WHITE BLOOD COUNT 11.8 K/mm3 (4.0-10.0)
[2019-04-03] MEDS: INSULIN SLIDING SCALE (NOVOLOG) 1 VIAL SQ SCH ×3 (07:57→18:06)
[2019-04-03] MEDS: CALCIUM ACETATE 667 MG CAPSULE (FP) PO SCH ×3 (08:10→18:38)
[2019-04-03 08:15] LABS: BILIRUBIN,TOTAL 0.5 mg/dL (0.2-1); BLOOD UREA NITROGEN 43.5 mg/dL (7-18); CALCIUM 8.6 mg/dL (8.5-10.1); CREATININE 7.3 mg/dL (0.55-1.3); MAGNESIUM 2.8 mg/dL (1.8-2.4); PHOSPHOROUS 5.5 mg/dL (2.5-4.9); POTASSIUM 4.3 mmol/L (3.5-5.1); TOT PROT 7.2 g/dl (6.4-8.2)
[2019-04-03 08:33] LABS: PH,URINE 7.5 (5.0-8.0); URINE APPEARANCE TURBID; URINE BILIRUBIN NEGATIVE (NEGATIVE); URINE COLOR YELLOW; URINE GLUCOSE (UA) 2+ (NEGATIVE); URINE KETONE NEGATIVE (NEGATIVE); URINE LEUK ESTERASE 3+ (NEGATIVE); URINE NITRITE NEGATIVE (NEGATIVE); URINE PROTEIN 3+ (NEGATIVE); URINE UROBILINOGEN 0.2 mg/dL (0.2-1.0)
--- NOTE | 2019-04-03 10:12 | EKG ---
Test Reason : Blood Pressure : / mmHG Vent. Rate : 072 BPM Atrial Rate : 072 BPM P-R Int : 146 ms QRS Dur : 086 ms QT Int : 424 ms P-R-T Axes : 041 014 051 degrees QTc Int : 464 ms NORMAL SINUS RHYTHM NORMAL ECG WHEN COMPARED WITH ECG OF 17-JUL-2018 23:23, VENT. RATE HAS DECREASED BY 35 BPM Confirmed by DENISSE GLASGOW MD ([id number]) on 04/03/2019 10:12:27 AM Referred By: Confirmed By:DENISSE GLASGOW MD
[2019-04-03] MEDS ORDERED: DEXTROSE 50%-WATER - 25 GM/50 ML VIAL IVPUSH ONE (10:50)
[2019-04-03] MEDS ORDERED: DEXTROSE 50%-WATER 25 GM/50 ML DISP.SYRIN ONE (11:01)
--- NOTE | 2019-04-03 11:03 | PN ---
Physical Exam: SUBJECTIVE: Patient seen and examined at bedside in ER. C/o left lower leg and foot pain. OBJECTIVE: Vital Signs Period Temp Pulse Resp BP Sys/Rivera Pulse Ox Last 24 Hr 98.1 F-98.9 F 71-82 15-20 120-167/55-68 97-98 GENERAL: NAD HEAD: AT/NC EYES: EOMI Sclera Clear ENT: MMM. NECK: Trachea midline, full range of motion, supple. LUNGS: CTA b/l. HEART: RRR S1S2. Radiation from AVF heard. ABDOMEN: Soft NDNT rebound, no hepatosplenomegaly, no masses. EXTREMITIES: LLE pinky toe dark blue some discharge from toe. Sensation decreased in left toe. DP 2+ bilaterally. Surrounding erythema dorsal aspect of left foot. AVF in LUE, patent bruit audible. NEUROLOGICAL: Cranial nerves II through XII grossly intact. PSYCH: Normal mood, normal affect. SKIN: Warm, dry, normal turgor, no rashes or lesions noted Laboratory Results - last 24 hr 04/02/19 04/02/19 04/02/19 19:00 19:00 19:00 WBC 13.0 H RBC 3.07 L Hgb 9.6 L Hct 29.2 L MCV 95.2 MCH 31.3 MCHC 32.9 RDW 14.6 Plt Count 316 MPV 10.1 Absolute Neuts (auto) 10.2 H Neutrophils % 78.3 D Lymphocytes % 11.3 D Monocytes % 9.4 Eosinophils % 0.2 D Basophils % 0.8 Nucleated RBC % 0 ESR 101 H Retic Count PT with INR INR Sodium Cancelled Potassium Cancelled Chloride Cancelled Carbon Dioxide Cancelled Anion Gap Cancelled BUN Cancelled Creatinine Cancelled Est GFR (CKD-EPI)AfAm Cancelled Est GFR (CKD-EPI)NonAf Cancelled POC Glucometer Random Glucose Cancelled Calcium Cancelled Phosphorus Magnesium Iron TIBC Iron Saturation Unsaturated IBC Ferritin Total Bilirubin Cancelled AST Cancelled ALT Cancelled Alkaline Phosphatase Cancelled C-Reactive Protein 18.8 H Total Protein Cancelled Albumin Cancelled TSH Urine Color Urine Appearance Urine pH Ur Specific [place] Urine Protein Urine Glucose (UA) Urine Ketones Urine Blood Urine Nitrite Urine Bilirubin Urine Urobilinogen Ur Leukocyte Esterase Random Vancomycin Anti-A Titer Blood Type Antibody Screen 04/02/19 04/02/19 04/02/19 19:00 19:00 20:00 WBC RBC Hgb Hct MCV MCH MCHC RDW Plt Count MPV Absolute Neuts (auto) Neutrophils % Lymphocytes % Monocytes % Eosinophils % Basophils % Nucleated RBC % ESR Retic Count PT with INR 12.30 INR 1.04 Sodium Potassium Chloride Carbon Dioxide Anion Gap BUN Creatinine Est GFR (CKD-EPI)AfAm Est GFR (CKD-EPI)NonAf POC Glucometer Random Glucose Calcium Phosphorus Magnesium Iron TIBC Iron Saturation Unsaturated IBC Ferritin Total Bilirubin AST ALT Alkaline Phosphatase C-Reactive Protein Total Protein Albumin TSH Urine Color Urine Appearance Urine pH Ur Specific [place] Urine Protein Urine Glucose (UA) Urine Ketones Urine Blood Urine Nitrite Urine Bilirubin Urine Urobilinogen Ur Leukocyte Esterase Random Vancomycin Anti-A Titer Cancelled Blood Type Cancelled O POSITIVE Antibody Screen Cancelled Negative 04/02/19 04/03/19 04/03/19 20:24 01:55 03:33 WBC RBC Hgb Hct MCV MCH MCHC RDW Plt Count MPV Absolute Neuts (auto) Neutrophils % Lymphocytes % Monocytes % Eosinophils % Basophils % Nucleated RBC % ESR Retic Count PT with INR INR Sodium 128 L Potassium 4.4 Chloride 94 L Carbon Dioxide 24 Anion Gap 10 BUN 34.8 H Creatinine 6.6 H Est GFR (CKD-EPI)AfAm 7.61 Est GFR (CKD-EPI)NonAf 6.56 POC Glucometer 412 394 Random Glucose 334 H Calcium 8.6 Phosphorus Magnesium Iron TIBC Iron Saturation Unsaturated IBC Ferritin Total Bilirubin 0.5 AST 27 ALT 33 Alkaline Phosphatase 167 H C-Reactive Protein Total Protein 7.5 Albumin 3.1 L TSH Urine Color Urine Appearance Urine pH Ur Specific [place] Urine Protein Urine Glucose (UA) Urine Ketones Urine Blood Urine Nitrite Urine Bilirubin Urine Urobilinogen Ur Leukocyte Esterase Random Vancomycin Anti-A Titer Blood Type Antibody Screen 04/03/19 04/03/19 04/03/19 06:20 06:20 06:20 WBC 11.8 H RBC 3.12 L Hgb 10.0 L Hct 29.6 L MCV 95.1 MCH 32.2 MCHC 33.8 RDW 14.0 Plt Count 269 MPV 9.4 Absolute Neuts (auto) 9.5 H Neutrophils % 80.4 Lymphocytes % 9.7 Monocytes % 9.2 Eosinophils % 0.3 Basophils % 0.4 Nucleated RBC % 0 ESR Retic Count PT with INR INR Sodium 129 L Potassium 4.3 Chloride 94 L Carbon Dioxide 27 Anion Gap 9 BUN 43.5 H Creatinine 7.3 H Est GFR (CKD-EPI)AfAm 6.73 Est GFR (CKD-EPI)NonAf 5.81 POC Glucometer Random Glucose 332 H Calcium 8.6 Phosphorus 5.5 H Magnesium 2.8 H Iron TIBC Iron Saturation Unsaturated IBC Ferritin Total Bilirubin 0.5 AST 10 L ALT 27 Alkaline Phosphatase 158 H C-Reactive Protein Total Protein 7.2 Albumin 3.0 L TSH 1.88 Urine Color Urine Appearance Urine pH Ur Specific [place] Urine Protein Urine Glucose (UA) Urine Ketones Urine Blood Urine Nitrite Urine Bilirubin Urine Urobilinogen Ur Leukocyte Esterase Random Vancomycin 15.3 L Anti-A Titer Blood Type Antibody Screen 04/03/19 04/03/19 04/03/19 06:20 06:20 07:08 WBC RBC Hgb Hct MCV MCH MCHC RDW Plt Count MPV Absolute Neuts (auto) Neutrophils % Lymphocytes % Monocytes % Eosinophils % Basophils % Nucleated RBC % ESR Retic Count 1.08 D PT with INR INR Sodium Potassium Chloride Carbon Dioxide Anion Gap BUN Creatinine Est GFR (CKD-EPI)AfAm Est GFR (CKD-EPI)NonAf POC Glucometer 267 Random Glucose Calcium Phosphorus Magnesium Iron 45 L TIBC 129 L Iron Saturation 34 Unsaturated IBC 84 L Ferritin 1705.3 H Total Bilirubin AST ALT Alkaline Phosphatase C-Reactive Protein Total Protein Albumin TSH Urine Color Urine Appearance Urine pH Ur Specific [place] Urine Protein Urine Glucose (UA) Urine Ketones Urine Blood Urine Nitrite Urine Bilirubin Urine Urobilinogen Ur Leukocyte Esterase Random Vancomycin Anti-A Titer Blood Type Antibody Screen 04/03/19 04/03/19 07:15 10:58 WBC RBC Hgb Hct MCV MCH MCHC RDW Plt Count MPV Absolute Neuts (auto) Neutrophils % Lymphocytes % Monocytes % Eosinophils % Basophils % Nucleated RBC % ESR Retic Count PT with INR INR Sodium Potassium Chloride Carbon Dioxide Anion Gap BUN Creatinine Est GFR (CKD-EPI)AfAm Est GFR (CKD-EPI)NonAf POC Glucometer 46 Random Glucose Calcium Phosphorus Magnesium Iron TIBC Iron Saturation Unsaturated IBC Ferritin Total Bilirubin AST ALT Alkaline Phosphatase C-Reactive Protein Total Protein Albumin TSH Urine Color Yellow Urine Appearance Turbid Urine pH 7.5 D Ur Specific [place] 1.018 Urine Protein 3+ H Urine Glucose (UA) 2+ H Urine Ketones Negative Urine Blood 2+ H Urine Nitrite Negative Urine Bilirubin Negative Urine Urobilinogen 0.2 Ur Leukocyte Esterase 3+ H Random Vancomycin Anti-A Titer Blood Type Antibody Screen Active Medications Generic Name Dose Route Start Last Admin Trade Name Freq PRN Reason Stop Dose Admin Acetaminophen 650 mg 04/03/19 09:20 Tylenol - PO Q6H PRN PAIN LEVEL 1 - 3 Baclofen 10 mg 04/03/19 22:00 Lioresal - PO HS [facility] Bisacodyl 5 mg 04/03/19 10:00 Dulcolax - PO DAILY [facility] Buspirone HCl 10 mg 04/03/19 10:00 Buspar - PO BID [facility] Calcium Acetate 667 mg 04/03/19 08:00 04/03/19 08:10 Phoslo - PO 667 mg TIDCM [facility] Administration Carvedilol 25 mg 04/03/19 10:00 Coreg - PO BID [facility] Famotidine 20 mg 04/03/19 10:00 Pepcid - PO DAILY [facility] Heparin Sodium (Porcine) 5,000 unit 04/03/19 06:00 04/03/19 06:48 Heparin - SQ 5,000 unit TID [facility] Administration Hydralazine HCl 100 mg 04/03/19 06:00 04/03/19 07:01 Apresoline - PO Not Given TID [facility] Piperacillin Sod/Tazobactam 50 mls @ 100 mls/hr 04/03/19 02:00 04/03/19 02:28 Sod 2.25 gm/ Dextrose IVPB 04/03/19 18:29 100 mls/hr Q8H-IV [facility] Administration Protocol Piperacillin Sod/Tazobactam 50 mls @ 100 mls/hr 04/04/19 02:00 Sod 2.25 gm/ Dextrose IVPB Q8H-IV [facility] Protocol Insulin Aspart 1 vial 04/03/19 07:00 04/03/19 07:57 Novolog Vial Sliding Scale - SQ 6 units ACHS [facility] Administration Protocol Insulin Detemir 30 units 04/03/19 22:00 Levemir Vial SQ HS [facility] Insulin Detemir 35 units 04/03/19 10:00 Levemir Vial SQ DAILY [facility] Losartan Potassium 100 mg 04/03/19 10:00 Cozaar - PO DAILY [facility] Melatonin 3 mg 04/03/19 22:00 Melatonin PO HS [facility] Metoclopramide HCl 10 mg 04/03/19 07:00 04/03/19 07:09 Reglan - PO 10 mg TIDAC [facility] Administration Morphine Sulfate 2 mg 04/03/19 09:20 Morphine Sulfate IVPUSH Q6H PRN PAIN LEVEL 7 - 10 Nifedipine 90 mg 04/03/19 10:00 Procardia Xl - PO DAILY [facility] Oxycodone HCl 5 mg 04/03/19 09:20 Roxicodone - PO Q6H PRN PAIN LEVEL 4 - 6 Pantoprazole Sodium 40 mg 04/03/19 10:00 Protonix - PO DAILY [facility] Senna 2 tab 04/03/19 22:00 Senna - PO HS [facility] ASSESSMENT/PLAN: Patient is a 53 year old female with past medical history of ESRD on HD (MWF), HTN, Type 2 DM (on insulin),GERD, Gastroparesis, Neuropathy, Anxiety/Depression presented to the ED due to worsening left 5th toe wound that started about 2 weeks ago. #Diabetic foot, Left 5th toe cellulites -Left foot xray done--No Osteomyelitis or Subcutaneous Emphysema -ESR, CRP elevated, will order MRI to rule out osteomyelitis -Levaquin, Clindamycin and Vancomycin given at the ED -Will continue empiric coverage with IV Vancomycin and Zosyn, renally dosed -Surgery (Dr. Mcclain) consulted. -Podiatry (Dr. Stroud) consulted. -ID (Dr. Downing) consulted. -Morphine 2mg Q6H PRN 7-10 pain scale. Oxycodone 5 mg Q6H prn pain 4-6. Tylenol 1-3 #ESRD on HD -On HD MWF. Plan to receive HD today 04/03/2019. -Nephrology (Dr. Patterson) consulted. #Hypertension -Continue home meds Nifedipine 90mg, Coreg 25mg bid, Losartan 100mg daily #DM -Continue home insulin Levemir regimen BID, 30u HS and 35u AM -Insulin sliding scale implemented -BGM ACHS #FEN -Not on any standing fluids -Routine bmp monitoring -Renal diet #Prophylaxis -Heparin 5000u sq tid #Disposition -full code -Med surg Visit type - Emergency Visit Emergency Visit: Yes ED Registration Date: 04/02/19 Care time: The patient presented to the Emergency Department on the above date and was hospitalized for further evaluation of their emergent condition. - New Patient This patient is new to me today: Yes Date on this admission: 04/03/19 - Critical Care Critical Care patient: No - Discharge Referral Referred to [facility] No ATTENDING PHYSICIAN STATEMENT I saw and evaluated the patient. I reviewed the resident's note and discussed the case with the resident. I agree with the resident's findings and plan as documented. SUBJECTIVE: OBJECTIVE: ASSESSMENT AND PLAN:
[2019-04-03] MEDS: INSULIN (LEVEMIR) 100 UNITS/ML UNITS SQ SCH (11:10)
[2019-04-03] MEDS: FAMOTIDINE 20 MG TABLET PO SCH (11:30)
[2019-04-03] MEDS: BISACODYL 5 MG TABLET.DR (FP) PO SCH (11:30)
[2019-04-03] MEDS: LOSARTAN POTASSIUM 50 MG TABLET (FP) PO SCH (11:30)
[2019-04-03] MEDS: busPIRone HCL 10 MG TABLET (FP) PO SCH ×2 (11:30→23:59)
[2019-04-03] MEDS: CARVEDILOL 25 MG TABLET (FP) PO SCH (11:30)
[2019-04-03] MEDS: PANTOPRAZOLE 40 MG TABLET (FP) PO SCH (11:30)
[2019-04-03] MEDS: NIFEdipine E.R. 90 MG TABLET (FP) PO SCH (11:30)
--- NOTE | 2019-04-03 11:36 | PN ---
Teaching Attending Note Name of Resident: Kervin Larson ATTENDING PHYSICIAN STATEMENT I saw and evaluated the patient. I reviewed the resident's note and discussed the case with the resident. I agree with the resident's findings and plan as documented. SUBJECTIVE: Patient complains of pain in her left 5th toe, left foot, and lower left leg. OBJECTIVE: Vital Signs Period Temp Pulse Resp BP Sys/Rivera Pulse Ox Last 24 Hr 97.2 F-98.9 F 71-82 15-20 120-167/55-68 97-100 HEART: S1S2, RRR LUNGS: Clear ABDOMEN: Soft, non-tender, non-distended, normal BS EXTREMITIES: Left 5th toe swollen and dusky. Left foot swollen. Ulcer of dorsal surface of left 5th toe with purulent drainage. Erythema of left 5th toe extending to dorsal surface of left foot. No left calf swelling, erythema, or tenderness. Laboratory Results - last 24 hr 04/02/19 04/02/19 04/02/19 19:00 19:00 19:00 WBC 13.0 H RBC 3.07 L Hgb 9.6 L Hct 29.2 L MCV 95.2 MCH 31.3 MCHC 32.9 RDW 14.6 Plt Count 316 MPV 10.1 Absolute Neuts (auto) 10.2 H Neutrophils % 78.3 D Lymphocytes % 11.3 D Monocytes % 9.4 Eosinophils % 0.2 D Basophils % 0.8 Nucleated RBC % 0 ESR 101 H Retic Count PT with INR INR Sodium Cancelled Potassium Cancelled Chloride Cancelled Carbon Dioxide Cancelled Anion Gap Cancelled BUN Cancelled Creatinine Cancelled Est GFR (CKD-EPI)AfAm Cancelled Est GFR (CKD-EPI)NonAf Cancelled POC Glucometer Random Glucose Cancelled Calcium Cancelled Phosphorus Magnesium Iron TIBC Iron Saturation Unsaturated IBC Ferritin Total Bilirubin Cancelled AST Cancelled ALT Cancelled Alkaline Phosphatase Cancelled C-Reactive Protein 18.8 H Total Protein Cancelled Albumin Cancelled TSH Urine Color Urine Appearance Urine pH Ur Specific [place] Urine Protein Urine Glucose (UA) Urine Ketones Urine Blood Urine Nitrite Urine Bilirubin Urine Urobilinogen Ur Leukocyte Esterase Random Vancomycin Anti-A Titer Blood Type Antibody Screen 04/02/19 04/02/19 04/02/19 19:00 19:00 20:00 WBC RBC Hgb Hct MCV MCH MCHC RDW Plt Count MPV Absolute Neuts (auto) Neutrophils % Lymphocytes % Monocytes % Eosinophils % Basophils % Nucleated RBC % ESR Retic Count PT with INR 12.30 INR 1.04 Sodium Potassium Chloride Carbon Dioxide Anion Gap BUN Creatinine Est GFR (CKD-EPI)AfAm Est GFR (CKD-EPI)NonAf POC Glucometer Random Glucose Calcium Phosphorus Magnesium Iron TIBC Iron Saturation Unsaturated IBC Ferritin Total Bilirubin AST ALT Alkaline Phosphatase C-Reactive Protein Total Protein Albumin TSH Urine Color Urine Appearance Urine pH Ur Specific [place] Urine Protein Urine Glucose (UA) Urine Ketones Urine Blood Urine Nitrite Urine Bilirubin Urine Urobilinogen Ur Leukocyte Esterase Random Vancomycin Anti-A Titer Cancelled Blood Type Cancelled O POSITIVE Antibody Screen Cancelled Negative 04/02/19 04/03/19 04/03/19 20:24 01:55 03:33 WBC RBC Hgb Hct MCV MCH MCHC RDW Plt Count MPV Absolute Neuts (auto) Neutrophils % Lymphocytes % Monocytes % Eosinophils % Basophils % Nucleated RBC % ESR Retic Count PT with INR INR Sodium 128 L Potassium 4.4 Chloride 94 L Carbon Dioxide 24 Anion Gap 10 BUN 34.8 H Creatinine 6.6 H Est GFR (CKD-EPI)AfAm 7.61 Est GFR (CKD-EPI)NonAf 6.56 POC Glucometer 412 394 Random Glucose 334 H Calcium 8.6 Phosphorus Magnesium Iron TIBC Iron Saturation Unsaturated IBC Ferritin Total Bilirubin 0.5 AST 27 ALT 33 Alkaline Phosphatase 167 H C-Reactive Protein Total Protein 7.5 Albumin 3.1 L TSH Urine Color Urine Appearance Urine pH Ur Specific [place] Urine Protein Urine Glucose (UA) Urine Ketones Urine Blood Urine Nitrite Urine Bilirubin Urine Urobilinogen Ur Leukocyte Esterase Random Vancomycin Anti-A Titer Blood Type Antibody Screen 04/03/19 04/03/19 04/03/19 06:20 06:20 06:20 WBC 11.8 H RBC 3.12 L Hgb 10.0 L Hct 29.6 L MCV 95.1 MCH 32.2 MCHC 33.8 RDW 14.0 Plt Count 269 MPV 9.4 Absolute Neuts (auto) 9.5 H Neutrophils % 80.4 Lymphocytes % 9.7 Monocytes % 9.2 Eosinophils % 0.3 Basophils % 0.4 Nucleated RBC % 0 ESR Retic Count PT with INR INR Sodium 129 L Potassium 4.3 Chloride 94 L Carbon Dioxide 27 Anion Gap 9 BUN 43.5 H Creatinine 7.3 H Est GFR (CKD-EPI)AfAm 6.73 Est GFR (CKD-EPI)NonAf 5.81 POC Glucometer Random Glucose 332 H Calcium 8.6 Phosphorus 5.5 H Magnesium 2.8 H Iron TIBC Iron Saturation Unsaturated IBC Ferritin Total Bilirubin 0.5 AST 10 L ALT 27 Alkaline Phosphatase 158 H C-Reactive Protein Total Protein 7.2 Albumin 3.0 L TSH 1.88 Urine Color Urine Appearance Urine pH Ur Specific [place] Urine Protein Urine Glucose (UA) Urine Ketones Urine Blood Urine Nitrite Urine Bilirubin Urine Urobilinogen Ur Leukocyte Esterase Random Vancomycin 15.3 L Anti-A Titer Blood Type Antibody Screen 04/03/19 04/03/19 04/03/19 06:20 06:20 07:08 WBC RBC Hgb Hct MCV MCH MCHC RDW Plt Count MPV Absolute Neuts (auto) Neutrophils % Lymphocytes % Monocytes % Eosinophils % Basophils % Nucleated RBC % ESR Retic Count 1.08 D PT with INR INR Sodium Potassium Chloride Carbon Dioxide Anion Gap BUN Creatinine Est GFR (CKD-EPI)AfAm Est GFR (CKD-EPI)NonAf POC Glucometer 267 Random Glucose Calcium Phosphorus Magnesium Iron 45 L TIBC 129 L Iron Saturation 34 Unsaturated IBC 84 L Ferritin 1705.3 H Total Bilirubin AST ALT Alkaline Phosphatase C-Reactive Protein Total Protein Albumin TSH Urine Color Urine Appearance Urine pH Ur Specific [place] Urine Protein Urine Glucose (UA) Urine Ketones Urine Blood Urine Nitrite Urine Bilirubin Urine Urobilinogen Ur Leukocyte Esterase Random Vancomycin Anti-A Titer Blood Type Antibody Screen 04/03/19 04/03/19 04/03/19 07:15 10:58 11:02 WBC RBC Hgb Hct MCV MCH MCHC RDW Plt Count MPV Absolute Neuts (auto) Neutrophils % Lymphocytes % Monocytes % Eosinophils % Basophils % Nucleated RBC % ESR Retic Count PT with INR INR Sodium Potassium Chloride Carbon Dioxide Anion Gap BUN Creatinine Est GFR (CKD-EPI)AfAm Est GFR (CKD-EPI)NonAf POC Glucometer 46 46 Random Glucose Calcium Phosphorus Magnesium Iron TIBC Iron Saturation Unsaturated IBC Ferritin Total Bilirubin AST ALT Alkaline Phosphatase C-Reactive Protein Total Protein Albumin TSH Urine Color Yellow Urine Appearance Turbid Urine pH 7.5 D Ur Specific [place] 1.018 Urine Protein 3+ H Urine Glucose (UA) 2+ H Urine Ketones Negative Urine Blood 2+ H Urine Nitrite Negative Urine Bilirubin Negative Urine Urobilinogen 0.2 Ur Leukocyte Esterase 3+ H Random Vancomycin Anti-A Titer Blood Type Antibody Screen Current Medications Generic Name Dose Route Start Last Admin Trade Name Freq PRN Reason Stop Dose Admin Acetaminophen 650 mg 04/03/19 09:20 Tylenol - PO Q6H PRN PAIN LEVEL 1 - 3 Baclofen 10 mg 04/03/19 22:00 Lioresal - PO HS [facility] Bisacodyl 5 mg 04/03/19 10:00 Dulcolax - PO DAILY [facility] Buspirone HCl 10 mg 04/03/19 10:00 Buspar - PO BID [facility] Calcium Acetate 667 mg 04/03/19 08:00 04/03/19 08:10 Phoslo - PO 667 mg TIDCM [facility] Administration Carvedilol 25 mg 04/03/19 10:00 Coreg - PO BID [facility] Famotidine 20 mg 04/03/19 10:00 Pepcid - PO DAILY [facility] Heparin Sodium (Porcine) 5,000 unit 04/03/19 06:00 04/03/19 06:48 Heparin - SQ 5,000 unit TID [facility] Administration Hydralazine HCl 100 mg 04/03/19 06:00 04/03/19 07:01 Apresoline - PO Not Given TID [facility] Piperacillin Sod/Tazobactam 50 mls @ 100 mls/hr 04/03/19 02:00 04/03/19 02:28 Sod 2.25 gm/ Dextrose IVPB 04/03/19 18:29 100 mls/hr Q8H-IV [facility] Administration Protocol Piperacillin Sod/Tazobactam 50 mls @ 100 mls/hr 04/04/19 02:00 Sod 2.25 gm/ Dextrose IVPB Q8H-IV [facility] Protocol Insulin Aspart 1 vial 04/03/19 07:00 04/03/19 07:57 Novolog Vial Sliding Scale - SQ 6 units ACHS [facility] Administration Protocol Insulin Detemir 30 units 04/03/19 22:00 Levemir Vial SQ HS [facility] Insulin Detemir 35 units 04/03/19 10:00 04/03/19 11:10 Levemir Vial SQ Not Given DAILY [facility] Losartan Potassium 100 mg 04/03/19 10:00 Cozaar - PO DAILY [facility] Melatonin 3 mg 04/03/19 22:00 Melatonin PO HS [facility] Metoclopramide HCl 10 mg 04/03/19 07:00 04/03/19 07:09 Reglan - PO 10 mg TIDAC [facility] Administration Morphine Sulfate 2 mg 04/03/19 09:20 Morphine Sulfate IVPUSH Q6H PRN PAIN LEVEL 7 - 10 Nifedipine 90 mg 04/03/19 10:00 Procardia Xl - PO DAILY [facility] Oxycodone HCl 5 mg 04/03/19 09:20 Roxicodone - PO Q6H PRN PAIN LEVEL 4 - 6 Pantoprazole Sodium 40 mg 04/03/19 10:00 Protonix - PO DAILY [facility] Senna 2 tab 04/03/19 22:00 Senna - PO HS [facility] ASSESSMENT AND PLAN: This is a 53 year old woman with a history of ESRD, HTN, type 2 DM, GERD, gastroparesis, neuropathy, anxiety, depression who presented to the ED with left foot pain. 1. Infected left 5th toe ulcer with cellulitis of left 5th toe and left foot - Levaquin, Clindamycin, Vancomycin given in ED - On Zosyn - Wound culture pending - MRI of left foot to evaluate for osteomyelitis pending 2. ESRD - Nephrology consult for HD - Continue PhosLo 3. HTN - Continue Nifedipine, Coreg, Cozaar, Hydralazine 4. Type 2 DM - Continue Levemir, Novolog sliding scale 5. Diabetic peripheral neuropathy 6. Diabetic gastroparesis - Continue Reglan 7. GERD - Continue Pepcid, Protonix 8. Depression with anxiety - Continue BuSpar
--- NOTE | 2019-04-03 11:42 | CONSULT ---
Consult - text type - Consultation Consultation Note: Podiatry Consultation: 53 year old poorly controlled diabetic female presents to the ED for admission for left fifth toe diabetic infection. Patient endorses a 2+ week history of infection that started as a blister. She notes increased pain/swelling to the foot which prompted admission. She is afebrile. PMHx: ESRD on HD (MWF), HTN, Type 2 DM (on insulin), GERD, Gastroparesis, Neuropathy, Anxiety/Depression Meds: noted ALL: NKMA ABNER: L foot: pedal pulses nonpalpable, TG warm-warm, CFT absent to fifth digit. There is fluctuance, duskiness and ischemic changes to the left fifth digit. There is a diabetic ulcer dorsolater PIPJ with fibrotic base, significant tenderness to palpation, scant purulence, surrounding erythema to the 5th MTPJ, some streaking dorsally, no soft tissue crepitus. L foot XR: no subcutaneous emphysema identified Blood CX: pending Imp: 53 year old diabetic female with left fifth digit diabetic infection 1. IV abx 2. Discussed case with Dr. Mcclain who recommended ordered CTA to evaluate for peripheral vascular disease. May need revascularization. 3. MRI left foot to evaluate for 5th digit osteomyelitis 4. I recommended amputation of the fifth digit and patient is strongly refusing currently 5. Will follow while inpatient. Thank you for the courtesy of this consultation. Nuris Stroud DPM
--- NOTE | 2019-04-03 12:35 | CONSULT ---
Consult Consult Specialty:: Nephrology Reason for Consultation:: ESRD - History of Present Illness Chief Complaint: sent in for foot infection History of Present Illness: Pt is a 53 year old female with pmhx of esrd, htn, dm, gerd, anxiety, and neuropathy who was sent in for left fifth toe infection. She is due for HD today so I was called to evaluate her. She denies shortness of breath. She complains of generalized malaise. She had a blister on her toe that ruptured. She has had worsening erythema. - History Source History Provided By: Patient - Past Medical History PROGRAM/MUSIC DIRECTOR: Yes: Peripheral Neuropathy Cardio/Vascular: Yes: HTN, Hyperlipdemia Pulmonary: Yes: Asthma Gastrointestinal: Yes: GERD Renal/: Yes: Renal Failure, Hemodialysis ...LMP: 12/01/14 Endocrine: Yes: Diabetes Mellitus - Past Surgical History Past Surgical History: Yes: AV Fistula/Graft (LUE), (x3) - Alcohol/Substance Use Hx Alcohol Use: No History of Substance Use: reports: None - Smoking History Smoking history: Never smoked Have you smoked in the past 12 months: No Aproximately how many cigarettes per day: 6 - Social History Usual Living Arrangement: With Child ADL: Independent History of Recent Travel: No Home Medications - Allergies Allergies/Adverse Reactions: Allergies Allergy/AdvReac Type Severity Reaction Status Date / Time No Known Allergies Allergy Verified 04/02/19 17:46 - Home Medications Home Medications: Ambulatory Orders Baclofen 10 mg PO HS 12/14/16 Bisacodyl [Bisacodyl -] 5 mg PO DAILY 12/14/16 Calcium Acetate 667 mg PO AC 12/14/16 Dexlansoprazole [Dexilant] 60 mg PO DAILY 12/14/16 Hydralazine HCl 100 mg PO TID 12/14/16 Melatonin 3 mg PO HS 12/14/16 Metoclopramide HCl [Reglan -] 10 mg PO TID 12/14/16 Vitamin E 400 unit PO DAILY 12/14/16 Buspirone HCl [Buspar -] 10 mg PO BID 30 Days #60 tablet 07/23/18 Losartan Potassium 100 mg PO DAILY #30 tablet 07/23/18 Nifedipine ER [Procardia XL -] 90 mg PO DAILY #30 tab.er.24 07/23/18 Insulin (LOG) Aspart [NovoLOG -] 10 units SQ AM 04/03/19 Insulin (Levemir) [Levemir Vial] 30 units SQ HS 04/03/19 Family Medical History Family History: Denies Review of Systems - Review of Systems Constitutional: reports: Malaise Eyes: reports: No Symptoms HENT: reports: No Symptoms Neck: reports: No Symptoms Cardiovascular: reports: No Symptoms Gastrointestinal: reports: No Symptoms Musculoskeletal: reports: Other (left toe inection) Neurological: reports: No Symptoms Endocrine: reports: No Symptoms Hematology/Lymphatic: reports: No Symptoms Psychiatric: reports: No Symptoms Physical Exam Vital Signs: Vital Signs Temperature 97.2 F L 04/03/19 11:15 Pulse Rate 76 04/03/19 11:14 Respiratory Rate 18 04/03/19 11:14 Blood Pressure 156/63 04/03/19 11:14 O2 Sat by Pulse Oximetry (%) 100 04/03/19 11:14 Constitutional: Yes: Calm Eyes: Yes: Conjunctiva Clear HENT: Yes: Atraumatic Neck: Yes: Supple Cardiovascular: Yes: S1, S2 Respiratory: Yes: CTA Bilaterally Gastrointestinal: Yes: Soft Renal/: Yes: WNL Edema: Yes Edema: LLE: Trace, RLE: Trace Neurological: Yes: Oriented Psychiatric: Yes: Oriented Labs: CBC, BMP 04/03/19 06:20 04/03/19 06:20 Imaging - Results Chest X-ray: Report Reviewed Problem List - Problems (1) Cellulitis of left lower extremity Code(s): L03.116 - CELLULITIS OF LEFT LOWER LIMB (2) End stage renal disease on dialysis Code(s): N18.6 - END STAGE RENAL DISEASE; Z99.2 - DEPENDENCE ON RENAL DIALYSIS Assessment/Plan Current Medications Generic Name Dose Route Start Last Admin Trade Name Freq PRN Reason Stop Dose Admin Acetaminophen 650 mg 04/03/19 09:20 Tylenol - PO Q6H PRN PAIN LEVEL 1 - 3 Baclofen 10 mg 04/03/19 22:00 Lioresal - PO HS [facility]AS[facility]Z Bisacodyl 5 mg 04/03/19 10:00 04/03/19 11:30 Dulcolax - PO 5 mg DAILY [facility] Administration Buspirone HCl 10 mg 04/03/19 10:00 04/03/19 11:30 Buspar - PO 10 mg BID [facility] Administration Calcium Acetate 667 mg 04/03/19 08:00 04/03/19 11:40 Phoslo - PO 667 mg TIDCM [facility] Administration Carvedilol 25 mg 04/03/19 10:00 04/03/19 11:30 Coreg - PO 25 mg BID [facility] Administration Famotidine 20 mg 04/03/19 10:00 04/03/19 11:30 Pepcid - PO 20 mg DAILY [facility] Administration Heparin Sodium (Porcine) 5,000 unit 04/03/19 06:00 04/03/19 06:48 Heparin - SQ 5,000 unit TID [facility] Administration Hydralazine HCl 100 mg 04/03/19 06:00 04/03/19 07:01 Apresoline - PO Not Given TID [facility] Piperacillin Sod/Tazobactam 50 mls @ 100 mls/hr 04/03/19 11:45 04/03/19 12:00 Sod 2.25 gm/ Dextrose IVPB 100 mls/hr Q8H-IV [facility] Administration Protocol Insulin Aspart 1 vial 04/03/19 07:00 04/03/19 12:01 Novolog Vial Sliding Scale - SQ Not Given ACHS [facility] Protocol Insulin Detemir 30 units 04/03/19 22:00 Levemir Vial SQ HS [facility] Insulin Detemir 35 units 04/03/19 10:00 04/03/19 11:10 Levemir Vial SQ Not Given DAILY [facility] Losartan Potassium 100 mg 04/03/19 10:00 04/03/19 11:30 Cozaar - PO 100 mg DAILY [facility] Administration Melatonin 3 mg 04/03/19 22:00 Melatonin PO HS [facility] Metoclopramide HCl 10 mg 04/03/19 07:00 04/03/19 11:30 Reglan - PO 10 mg TIDAC [facility] Administration Morphine Sulfate 2 mg 04/03/19 09:20 Morphine Sulfate IVPUSH Q6H PRN PAIN LEVEL 7 - 10 Nifedipine 90 mg 04/03/19 10:00 04/03/19 11:30 Procardia Xl - PO 90 mg DAILY [facility] Administration Oxycodone HCl 5 mg 04/03/19 09:20 Roxicodone - PO Q6H PRN PAIN LEVEL 4 - 6 Pantoprazole Sodium 40 mg 04/03/19 10:00 04/03/19 11:30 Protonix - PO 40 mg DAILY [facility] Administration Senna 2 tab 04/03/19 22:00 Senna - PO HS VASQUEZ Impression 1. ESRD 2. DM 3. HTN 4. gastroparesis 5. nausea 6. anemia 7. peripheral neuropathy 8. foot infection/cellulitis - HD today - abx per ID - vascular eval - HD time 345 400 abf 2000 heparin bolus 500 maintenance - monitor bp - will follow Dr Arredondo
--- NOTE | 2019-04-03 12:39 | CONSULT ---
- Consultation REQUESTING PROVIDER: CONSULT REQUEST: We have been asked to surgically evaluate this patient for ( specify). PCP:Jose Aviles HISTORY OF PRESENT ILLNESS: 53 y/o F w/ PMHx ESRD on HD (MWF), HTN, Type 2 DM ( on insulin), GERD, Gastroparesis, Neuropathy, Anxiety/Depression now presenting to ED with worsening L 5th toe ulcer. Pt reports ulcer began as a blister 2 weeks ago. States it ruptured on its own after a few days. Has been applying gauze changed daily and notes blood and pus from the wound. States glucose is usually in 200s at home. Pt reports worsening of pain since yesterday making it hard for her to walk. Pt called wound care and was told to come to ED. Has not seen PCP/urgent care or any other medical professional for trtmt for current foot wound. Endorses subjective fevers and chills, denies any headache, nausea, vomiting, chest pain, SOB, abdominal pain, diarrhea. Has h/o tobacco abuse 1/2 ppd x many years. PMHx: as above PSHx: x 3 2 ectopic pregnancies Myomectomy Home Medications Medication Instructions Recorded Baclofen 10 mg PO HS 12/14/16 Bisacodyl [Bisacodyl -] 5 mg PO DAILY 12/14/16 Calcium Acetate 667 mg PO AC 12/14/16 Dexlansoprazole [Dexilant] 60 mg PO DAILY 12/14/16 Hydralazine HCl 100 mg PO TID 12/14/16 Melatonin 3 mg PO HS 12/14/16 Metoclopramide HCl [Reglan -] 10 mg PO TID 12/14/16 Vitamin E 400 unit PO DAILY 12/14/16 Buspirone HCl [Buspar -] 10 mg PO BID 30 Days #60 tablet 07/23/18 Losartan Potassium 100 mg PO DAILY #30 tablet 07/23/18 Nifedipine ER [Procardia XL -] 90 mg PO DAILY #30 tab.er.24 07/23/18 Insulin (LOG) Aspart [NovoLOG -] 10 units SQ AM 04/03/19 Insulin (Levemir) [Levemir Vial] 30 units SQ HS 04/03/19 Allergies Allergy/AdvReac Type Severity Reaction Status Date / Time No Known Allergies Allergy Verified 04/02/19 17:46 REVIEW OF SYSTEMS: CONSTITUTIONAL: + fever, chills CARDIOVASCULAR: Absent: chest pain RESPIRATORY: Absent: cough, shortness of breath GASTROINTESTINAL: Absent: abdominal pain PHYSICAL EXAM: GENERAL: Awake, alert, and fully oriented, in no acute distress. HEAD: Normal with no signs of trauma. LOWER EXTREMITIES: L foot with 2+ pitting edema to ankle. L 5th toe swollen, gangrenous with open ulcer at lateral aspect of toe. + bloody purulent drainage expressed. + erythema extending to forefoot. +ttp. mild erythema tracking along plantar surface Vasc: 2+ dp/pt right foot, l foot 2+ pt, palpable dp (pt doesn't tolerate pulse exam well due to pain), pulses rechecked with doppler, triphasic Vital Signs Temperature 97.2 F L 04/03/19 11:15 Pulse Rate 76 04/03/19 11:14 Respiratory Rate 18 04/03/19 11:14 Blood Pressure 156/63 04/03/19 11:14 O2 Sat by Pulse Oximetry (%) 100 04/03/19 11:14 Lab Results WBC 11.8 K/mm3 (4.0-10.0) H 04/03/19 06:20 RBC 3.12 M/mm3 (3.60-5.2) L 04/03/19 06:20 Hgb 10.0 GM/dL (10.7-15.3) L 04/03/19 06:20 Hct 29.6 % (32.4-45.2) L 04/03/19 06:20 MCV 95.1 fl (80-96) 04/03/19 06:20 MCHC 33.8 g/dl (32.0-36.0) 04/03/19 06:20 RDW 14.0 % (11.6-15.6) 04/03/19 06:20 Plt Count 269 K/MM3 (134-434) 04/03/19 06:20 Sodium 129 mmol/L (136-145) L 04/03/19 06:20 Potassium 4.3 mmol/L (3.5-5.1) 04/03/19 06:20 Chloride 94 mmol/L (98-107) L 04/03/19 06:20 Carbon Dioxide 27 mmol/L (21-32) 04/03/19 06:20 Anion Gap 9 MMOL/L (8-16) 04/03/19 06:20 BUN 43.5 mg/dL (7-18) H 04/03/19 06:20 Creatinine 7.3 mg/dL (0.55-1.3) H 04/03/19 06:20 Random Glucose 332 mg/dL (74-106) H 04/03/19 06:20 Calcium 8.6 mg/dL (8.5-10.1) 04/03/19 06:20 Blood Type O POSITIVE 04/02/19 20:00 Antibody Screen Negative 04/02/19 20:00 INR 1.04 (0.83-1.09) 04/02/19 19:00 A/P: 53 y/o F w/ PMHx ESRD on HD (MWF), HTN, Type 2 DM (on insulin), GERD, Gastroparesis, Neuropathy, Anxiety/Depression now presenting to ED with worsening L 5th toe ulcer. afebrile, +leukocytosis to 13k L 5th toe infection spreading to forefoot Palpable pulses, triphasic signals -OR and wound care per podiatry -No acute vascular intervention at this time -ABX per ID d/w attending Dr Mcclain
[2019-04-03] MEDS ORDERED: HEPARIN NA (PORCINE) 5,000 UNITS/ML 1ML VIAL IVPUSH ONE (13:00)
[2019-04-03] MEDS ORDERED: SODIUM CHLORIDE 250 ML IV PRN (13:01)
--- NOTE | 2019-04-03 13:31 | PN ---
Progress Note (short form) - Note Progress Note: ID consult dictated-- imp/reccd diabetic foot infection esrd/hd continue vancomycin by level continue zosyn vascular surgery eval for PVD podiatry MRI no constance Problem List - Problems (1) Diabetic infection of left foot Code(s): E11.628 - TYPE 2 DIABETES MELLITUS WITH OTHER SKIN COMPLICATIONS; L08.9 - LOCAL INFECTION OF THE SKIN AND SUBCUTANEOUS TISSUE, UNSP (2) End stage renal disease on dialysis Code(s): N18.6 - END STAGE RENAL DISEASE; Z99.2 - DEPENDENCE ON RENAL DIALYSIS
[2019-04-03] MEDS ORDERED: VANCOMYCIN 1 GRAM (PRE-DOCKED) 1,000 MG/250 ML BAG IVPB ONE (14:00)
--- NOTE | 2019-04-03 16:27 | CONS ---
INFECTIOUS DISEASE CONSULTATION DATE OF CONSULTATION: DATE OF DICTATION: 04/03/2019 REQUESTED BY: The hospitalist service. HISTORY OF PRESENT ILLNESS: This is a 53-year-old woman. She reports, two weeks ago, she had a blister on the little toe of her left foot, it progressed, became cellulitic. She has end-stage renal disease. She has been going to dialysis. She denies any fevers and chills. She did not seek care over the last 2 weeks for her foot. She has not put any topicals or taken any antibiotics for the foot, as well. She came to Emergency yesterday with progressive pain and swelling of the leg and was admitted. PAST MEDICAL HISTORY: Notable for hypertension, insulin-dependent diabetes which she says she has had for 20 years, end-stage renal disease on dialysis. She has a history of anxiety and depression. SURGICAL HISTORY: Notable for myomectomy, x3, and two ectopic pregnancies. FAMILY HISTORY: Notable for diabetes in her grandfather, brother with bone cancer, and grandfather with colon cancer. SOCIAL HISTORY: She smokes a 1/2 pack per day. No history of alcohol or substance use. ALLERGIES: She has no known drug allergies. MEDICATIONS: At home include Lac-Hydrin cream, Baclofen, calcium acetate, Dexilant, hydralazine, melatonin, Reglan, Zantac, senna, vitamin E, insulin, BuSpar, Coreg, losartan, and nifedipine. She identifies her primary care doctor as Dr. Patterson, her produce inspector. REVIEW OF SYSTEMS: Notable for no nausea, vomiting, diarrhea or dysuria. She has no chest pain or cough. She did report some subjective fevers and chills at home, prior to admission, and progressive swelling of the leg. PHYSICAL EXAMINATION: General: She is awake and alert. Vital Signs: Temperature is 98.4. She has had no fever since admission. Pulse is 70, blood pressure 132/61, respiratory rate of 18. HEENT: She is normocephalic. Her eyes are anicteric. Neck: Supple. Lungs: Clear to auscultation. Heart: Regular rate and rhythm. Abdomen: Soft. Nontender. Extremities: Notable for an AV fistula with a good thrill. Her left 5th toe notable for pulses that I cannot appreciate. There is fluctuance, ischemia, and duskiness of the left 5th toe. There is an open ulcer that is tender with a little bit of purulent discharge. She has some swelling of the dorsum of the foot and some pain on the plantar surface of the foot. X-ray of the foot; there is no air identified and no definite signs of osteomyelitis. LABORATORIES: Notable admission white count was 13, hemoglobin 9.6, sedimentation rate of 101, CRP is 18.8, alkaline phosphatase of 158, her BUN and creatinine are 43 and 7.3. Random vancomycin level is 15. In summary, this is a 53-year-old with a diabetic foot infection in the setting of end-stage renal disease on dialysis. Cultures have been sent. Would continue vancomycin by levels and Zosyn adjusted for her renal failure. She is to be seen by Vascular, as well as Podiatry. MRI without gadolinium has been ordered, as well, to evaluate her foot. She has elevated inflammatory markers. I suspect she has osteomyelitis of the 5th toe. Further recommendations to follow. Domingo ROSE/[id number]
[2019-04-03] MEDS ORDERED: oxyCODONE HCL 5 MG TABLET ONE (16:41)
[2019-04-03] MEDS: ACETAMINOPHEN 325 MG TABLET (FP) PO PRN (16:45)
[2019-04-03] MEDS: oxyCODONE HCL 5 MG TABLET PO PRN (16:45)
[2019-04-03] MEDS ORDERED: PIPERACILLIN/TAZOB 2.25 GM 2.25 GM in DEXTROSE 5%-WATER - 50 ML IVPB SCH (18:00)
[2019-04-03] MEDS ORDERED: POLYETHYLENE GLYCOL 3350 119 GM BTL PO ONE (20:16)
[2019-04-03] MEDS: DOCUSATE SODIUM 100 MG CAPSULE (FP) PO SCH (23:59)
[2019-04-04] MEDS: HEPARIN NA (PORCINE) 5,000 UNITS/ML 1ML VIAL SQ SCH ×4 (00:01→22:56)
[2019-04-04] MEDS: MORPHINE SULFATE 2 MG/ML VIAL IVPUSH PRN ×4 (00:08→22:53)
[2019-04-04] MEDS: INSULIN (LEVEMIR) 100 UNITS/ML UNITS SQ SCH ×3 (00:15→23:01)
[2019-04-04] MEDS: INSULIN SLIDING SCALE (NOVOLOG) 1 VIAL SQ SCH ×5 (00:16→23:02)
[2019-04-04] MEDS: PIPERACILLIN/TAZOB 2.25 GM 2.25 GM in DEXTROSE 5%-WATER - 50 ML IVPB SCH ×3 (02:55→17:09)
[2019-04-04] MEDS ORDERED: PIPERACILLIN/TAZOBACTAM 2.25 GM VIAL IVPB ONE ×3 (03:27→16:25)
[2019-04-04] MEDS ORDERED: DEXTROSE 5%-WATER - 50 ML IVPB ONE ×3 (03:27→16:25)
[2019-04-04] MEDS: hydrALAZINE HCL 50 MG TABLET (FP) PO SCH ×3 (06:27→22:57)
[2019-04-04] MEDS: METOCLOPRAMIDE HCL 10 MG TABLET (FP) PO SCH ×3 (06:28→16:28)
[2019-04-04] MEDS: FAMOTIDINE 20 MG TABLET PO SCH (09:04)
[2019-04-04] MEDS: CALCIUM ACETATE 667 MG CAPSULE (FP) PO SCH ×3 (09:04→16:31)
[2019-04-04] MEDS: busPIRone HCL 10 MG TABLET (FP) PO SCH ×2 (09:05→23:00)
[2019-04-04] MEDS: NIFEdipine E.R. 90 MG TABLET (FP) PO SCH (09:05)
[2019-04-04] MEDS: CARVEDILOL 25 MG TABLET (FP) PO SCH ×3 (09:05→22:57)
[2019-04-04] MEDS: LOSARTAN POTASSIUM 50 MG TABLET (FP) PO SCH (09:05)
[2019-04-04] MEDS: BISACODYL 5 MG TABLET.DR (FP) PO SCH (09:05)
[2019-04-04] MEDS: PANTOPRAZOLE 40 MG TABLET (FP) PO SCH (09:05)
[2019-04-04 09:47] LABS: HEMATOCRIT 27.1 % (32.4-45.2); HEMOGLOBIN 9.2 GM/dL (10.7-15.3); MCH 31.8 pg (25.7-33.7); MCHC 33.9 g/dl (32.0-36.0); MEAN PLT VOLUME 9.3 fl (7.5-11.1); PLATELET COUNT 273 K/MM3 (134-434); RBC 2.88 M/mm3 (3.60-5.2); WHITE BLOOD COUNT 12.9 K/mm3 (4.0-10.0)
--- NOTE | 2019-04-04 09:48 | PN ---
Physical Exam: SUBJECTIVE: Patient seen and examined at bedside. Endorsing left lower extremity pain. OBJECTIVE: Vital Signs Period Temp Pulse Resp BP Sys/Rivera Pulse Ox Last 24 Hr 97.2 F-100.3 F 67-88 16-22 132-179/59-93 98-100 GENERAL: NAD HEAD: Atraumatic/Normocephalic EYES: EOMI Sclera Clear ENT: MMM NECK: Trachea midline, full range of motion, supple. LUNGS: CTAB HEART: RRR S1S2 ABDOMEN: NDNT EXTREMITIES: Left 5th toe dark blue, decreased sensation. DP 2+. Surrounding erythema by 5th toe. FROM. NEUROLOGICAL: Cranial nerves II through XII grossly intact. Normal speech. Laboratory Results - last 24 hr 04/03/19 04/03/19 04/03/19 10:58 11:02 11:42 POC Glucometer 46 46 168 04/03/19 04/03/19 04/04/19 16:32 18:01 06:25 POC Glucometer 240 339 114 04/04/19 07:25 POC Glucometer 76 Active Medications Generic Name Dose Route Start Last Admin Trade Name Freq PRN Reason Stop Dose Admin Acetaminophen 650 mg 04/03/19 09:20 04/03/19 16:45 Tylenol - PO 650 mg Q6H PRN Administration PAIN LEVEL 1 - 3 Baclofen 10 mg 04/03/19 22:00 04/04/19 00:00 Lioresal - PO 10 mg HS [facility]QUEZ Administration Bisacodyl 5 mg 04/03/19 10:00 04/04/19 09:05 Dulcolax - PO 5 mg DAILY [facility] Administration Buspirone HCl 10 mg 04/03/19 10:00 04/04/19 09:05 Buspar - PO 10 mg BID [facility] Administration Calcium Acetate 667 mg 04/03/19 08:00 04/04/19 09:04 Phoslo - PO 667 mg TIDCM [facility] Administration Carvedilol 25 mg 04/03/19 10:00 04/04/19 09:05 Coreg - PO Not Given BID [facility] Docusate Sodium 300 mg 04/03/19 22:00 04/03/19 23:59 Colace - PO 300 mg HS [facility] Administration Famotidine 20 mg 04/03/19 10:00 04/04/19 09:04 Pepcid - PO 20 mg DAILY [facility] Administration Heparin Sodium (Porcine) 5,000 unit 04/03/19 06:00 04/04/19 06:28 Heparin - SQ 5,000 unit TID [facility] Administration Heparin Sodium (Porcine) 500 unit 04/04/19 12:45 Heparin - IVPUSH 04/04/19 14:46 Q1H [facility] Hydralazine HCl 100 mg 04/03/19 06:00 04/04/19 06:27 Apresoline - PO 100 mg TID [facility] Administration Piperacillin Sod/Tazobactam 50 mls @ 100 mls/hr 04/03/19 11:45 04/04/19 09:05 Sod 2.25 gm/ Dextrose IVPB 100 mls/hr Q8H-IV [facility] Administration Protocol Sodium Chloride 250 mls @ 3,000 mls/hr 04/03/19 13:01 Normal Saline - IV 04/04/19 13:00 PRN PRN Hypotension during Dialysis Insulin Aspart 1 vial 04/03/19 07:00 04/04/19 06:28 Novolog Vial Sliding Scale - SQ Not Given ACHS [facility] Protocol Insulin Detemir 30 units 04/03/19 22:00 04/04/19 00:15 Levemir Vial SQ 30 units HS [facility] Administration Insulin Detemir 35 units 04/03/19 10:00 04/04/19 09:04 Levemir Vial SQ Not Given DAILY [facility] Losartan Potassium 100 mg 04/03/19 10:00 04/04/19 09:05 Cozaar - PO Not Given DAILY [facility] Melatonin 3 mg 04/03/19 22:00 04/04/19 00:00 Melatonin PO 3 mg HS [facility] Administration Metoclopramide HCl 10 mg 04/03/19 07:00 04/04/19 06:28 Reglan - PO 10 mg TIDAC [facility] Administration Morphine Sulfate 2 mg 04/03/19 09:20 04/04/19 09:10 Morphine Sulfate IVPUSH 2 mg Q6H PRN Administration PAIN LEVEL 7 - 10 Nifedipine 90 mg 04/03/19 10:00 04/04/19 09:05 Procardia Xl - PO Not Given DAILY [facility] Oxycodone HCl 5 mg 04/03/19 09:20 04/03/19 16:45 Roxicodone - PO 5 mg Q6H PRN Administration PAIN LEVEL 4 - 6 Pantoprazole Sodium 40 mg 04/03/19 10:00 04/04/19 09:05 Protonix - PO 40 mg DAILY [facility] Administration Senna 2 tab 04/03/19 22:00 04/04/19 00:00 Senna - PO 2 tab HS [facility] Administration ASSESSMENT/PLAN: Patient is a 53 year old female with past medical history of ESRD on HD (MWF), HTN, Type 2 DM (on insulin),GERD, Gastroparesis, Neuropathy, Anxiety/Depression presented to the ED due to worsening left 5th toe wound that started about 2 weeks ago. #Diabetic foot, Left 5th toe cellulites -Left foot xray done---> No Osteomyelitis or Subcutaneous Emphysema -ESR, CRP elevated, MRI ---> osteomyelitis -Levaquin, Clindamycin and Vancomycin given at the ED -C/w Zosyn. D/C Vanco as no MRSA. -Surgery (Dr. Mcclain) consulted. Plan for CTA tomorrow before HD -Podiatry on board--> suggests Toe amputation. Pt reluctant. -ID on board. -Morphine 2mg Q6H PRN 7-10 pain scale. Oxycodone 5 mg Q6H prn pain 4-6. Tylenol 1-3 #ESRD on HD -On HD MWF. HD 04/03/2019. -Nephrology on board. #Hypertension -Continue home meds Nifedipine 90mg, Coreg 25mg bid, Losartan 100mg daily #DM -Continue home insulin Levemir regimen BID, 30u HS and 35u AM -Insulin sliding scale implemented -BGM ACHS -Will add on 5 Units Aspart before Lunch and Dinner. #FEN -Not on any standing fluids -Routine bmp monitoring -Renal diet #Prophylaxis -Heparin 5000u sq tid #Disposition -full code -Med surg Visit type - Emergency Visit Emergency Visit: Yes ED Registration Date: 04/02/19 Care time: The patient presented to the Emergency Department on the above date and was hospitalized for further evaluation of their emergent condition. - New Patient This patient is new to me today: No - Critical Care Critical Care patient: No - Discharge Referral Referred to [facility] No ATTENDING PHYSICIAN STATEMENT I saw and evaluated the patient. I reviewed the resident's note and discussed the case with the resident. I agree with the resident's findings and plan as documented. SUBJECTIVE: OBJECTIVE: ASSESSMENT AND PLAN:
[2019-04-04 10:22] LABS: ALBUMIN 2.6 g/dl (3.4-5.0); BILIRUBIN,TOTAL 0.5 mg/dL (0.2-1); BLOOD UREA NITROGEN 28.5 mg/dL (7-18); CALCIUM 8.7 mg/dL (8.5-10.1); CREATININE 5.4 mg/dL (0.55-1.3); PHOSPHOROUS 4.8 mg/dL (2.5-4.9); POTASSIUM 3.6 mmol/L (3.5-5.1); TOT PROT 6.6 g/dl (6.4-8.2)
--- NOTE | 2019-04-04 10:52 | PN ---
Progress Note (short form) - Note Progress Note: 53 year old poorly controlled diabetic female presents to the ED for admission for left fifth toe diabetic infection. Patient seend by my partner Dr. Stroud yesterday; out of room today during exam. Was refusing amputation as of yesterday even though recc'd given infection and gangrenous changes to the digit. PMHx: ESRD on HD (MWF), HTN, Type 2 DM (on insulin), GERD, Gastroparesis, Neuropathy, Anxiety/Depression Meds: noted ALL: NKMA ABNER: L foot: pedal pulses nonpalpable, TG warm-warm, CFT absent to fifth digit. There is fluctuance, duskiness and ischemic changes to the left fifth digit. There is a diabetic ulcer dorsolater PIPJ with fibrotic base, significant tenderness to palpation, scant purulence, surrounding erythema to the 5th MTPJ, some streaking dorsally, no soft tissue crepitus. L foot XR: no subcutaneous emphysema identified Imp: 53 year old diabetic female with left fifth digit diabetic infection Evaluated labs and reviewed Patient out of room at this time Pending CTA Pending MRI Would still Recc amputation but refusing at this time Will f/u after MR/CTA is completed If continued refusal will need termite inspector abx
[2019-04-04] MEDS ORDERED: INSULIN (NOVOLOG) ASPART 100 UNITS/ML 10ML VIAL SQ SCH ×2 (11:00→13:42)
--- NOTE | 2019-04-04 12:29 | PN ---
Progress Note (short form) - Note Progress Note: Vascular Surgery Pt seen and examined. Left fifth toe discoloration for over 2 weeks. AFter she removed a callus. CTA ordered to look at runoff. Pt does not have any palpable pulses in left foot. CTA cooridinated with YANNA Mcclain DO
[2019-04-04] MEDS ORDERED: HEPARIN NA (PORCINE) 5,000 UNITS/ML 1ML VIAL IVPUSH SCH (12:45)
--- NOTE | 2019-04-04 12:56 | PN ---
Teaching Attending Note Name of Resident: Kervin Larson ATTENDING PHYSICIAN STATEMENT I saw and evaluated the patient. I reviewed the resident's note and discussed the case with the resident. I agree with the resident's findings and plan as documented. 53 F h/o uncontrolled T2DM, ESRD on HD, HTN, DM neuropathy and gastroparesis with L 5th toe osteomyelitis 2/2 diabetic foot infection. Patient seen at bedside today, endorsed she does not want a toe amputation which was recommendation as per podiatry. Awaiting CT-A of lower extremities which will be done tomorrow prior to HD. Currently denies fever and chills, endorses some pain from the L 5th toe. PE VS noted GA comfortable, NAD, speaks in full sentences, AAox3 HEENT NC/AT, EOMI, neck supple CHEST: faint wheezing bilaterally, no crackles CVS: S1, S2+, RRR, no m/r/g Abdomen: Soft, NT, ND, BS+ Extremities: L foot pedal pulses not palpable, fluctuance+, duskiness with mild ischemic changes to L 5th digit, tenderness to palpation, trace purulence, surrounding erythema to 5th digit, no soft tissue crepitus R foot palpable pulse, no visible ulcers, wounds or discoloration. No LE edema, no calf tenderness Last Vital Signs Temp Pulse Resp BP Pulse Ox 98.0 F 79 18 96/49 L 97 04/04/19 09:00 04/04/19 09:00 04/04/19 09:00 04/04/19 09:00 04/04/19 09:00 Microbiology 04/02/19 19:20 Gram Stain - Final Toe - Left Fifth Wound Culture - Preliminary Presumptive Mssa (Pbp2a Neg) Strep Agalactiae Group B Pending Organism 04/02/19 20:00 Blood Culture - Preliminary Blood - Peripheral Venous NO GROWTH OBTAINED AFTER 24 HOURS, INCUBATION TO CONTINUE FOR 4 DAYS. 04/02/19 20:00 Blood Culture - Preliminary Blood - Peripheral Venous NO GROWTH OBTAINED AFTER 24 HOURS, INCUBATION TO CONTINUE FOR 4 DAYS. Laboratory Results - last 24 hr 04/04/19 04/04/19 04/04/19 07:25 09:15 09:15 WBC 12.9 H RBC 2.88 L Hgb 9.2 L Hct 27.1 L MCV 94.0 MCH 31.8 MCHC 33.9 RDW 14.0 Plt Count 273 MPV 9.3 Sodium 133 L Potassium 3.6 Chloride 95 L Carbon Dioxide 29 Anion Gap 9 BUN 28.5 H Creatinine 5.4 H Est GFR (CKD-EPI)AfAm 9.70 Est GFR (CKD-EPI)NonAf 8.37 POC Glucometer 76 Random Glucose 239 H Calcium 8.7 Phosphorus 4.8 Magnesium 2.0 Total Bilirubin 0.5 AST 13 L ALT 26 Alkaline Phosphatase 156 H Total Protein 6.6 Albumin 2.6 L L 5th toe osteomyelitis Spoke with ID, will await CT-A for now, no bone biopsy needed at this time, cultures are adequate Obtained collateral from podiatry service, patient firmly refusing amputation which are current recommendations at this time, they will await CT-A for further management of her osteomyelitis Vascular waiting for CT-A results to assess for revascularization Continue Zosyn, culture noted DC Vancomycin, pain control with Percocet PRN and IV morphine for breakthrough pain Strict glycemic control T2DM Uncontrolled, not taking Novolog at home supposed to be on 10u TID AC Start 5u before lunch and dinner, titrate to keep F/S 140-180mg/dL, watch for hypoglycemia if AM hypoglycemia occurs go down on nighttime Levemir dose ESRD HD given yesterday, electrolytes stable Resume Mon/Mon/Mon schedule, for HD tomorrow will get CT-A of lower extremity prior to HD session HTN Continue home BP meds Anxiety Disorder Continue home psych meds Major depressive disorder Continue home meds GERD Continue Protonix Bowel regimen with Senna, Docusate, supplement with Miralax daily DVT ppx: Heparin 5000u SQ Q8H FEN: no IVF needed, Chem 10 daily, Renal and diabetic low calorie diet
--- NOTE | 2019-04-04 15:45 | PN ---
Progress Note, Physician History of Present Illness: Pt seen and examined at bedside. She denies fevers or chills. She is awake and alert. - Current Medication List Current Medications: Active Medications Acetaminophen (Tylenol -) 650 mg PO Q6H PRN PRN Reason: PAIN LEVEL 1 - 3 Last Admin: 04/03/19 16:45 Dose: 650 mg Baclofen (Lioresal -) 10 mg PO [facility] Last Admin: 04/04/19 00:00 Dose: 10 mg Bisacodyl (Dulcolax -) 5 mg PO DAILY [facility] Last Admin: 04/04/19 09:05 Dose: 5 mg Buspirone HCl (Buspar -) 10 mg PO BID [facility] Last Admin: 04/04/19 09:05 Dose: 10 mg Calcium Acetate (Phoslo -) 667 mg PO TIDCM [facility] Last Admin: 04/04/19 11:26 Dose: 667 mg Carvedilol (Coreg -) 25 mg PO BID [facility] Last Admin: 04/04/19 09:05 Dose: Not Given Docusate Sodium (Colace -) 300 mg PO [facility] Last Admin: 04/03/19 23:59 Dose: 300 mg Famotidine (Pepcid -) 20 mg PO DAILY [facility] Last Admin: 04/04/19 09:04 Dose: 20 mg Heparin Sodium (Porcine) (Heparin -) 5,000 unit SQ TID [facility] Last Admin: 04/04/19 13:48 Dose: 5,000 unit Hydralazine HCl (Apresoline -) 100 mg PO TID [facility] Last Admin: 04/04/19 13:48 Dose: 100 mg Piperacillin Sod/Tazobactam (Sod 2.25 gm/ Dextrose) 50 mls @ 100 mls/hr IVPB Q8H-IV [facility]; Protocol Last Admin: 04/04/19 09:05 Dose: 100 mls/hr Insulin Aspart (Novolog Vial Sliding Scale -) 1 vial SQ ACHS [facility]; Protocol Last Admin: 04/04/19 11:28 Dose: 8 units Insulin Aspart (Novolog Vial) 5 units SQ BIDWM [facility] Insulin Detemir (Levemir Vial) 30 units SQ [facility] Last Admin: 04/04/19 00:15 Dose: 30 units Insulin Detemir (Levemir Vial) 35 units SQ DAILY [facility] Last Admin: 04/04/19 09:04 Dose: Not Given Losartan Potassium (Cozaar -) 100 mg PO DAILY [facility] Last Admin: 04/04/19 09:05 Dose: Not Given Melatonin (Melatonin) 3 mg PO HS [facility] Last Admin: 04/04/19 00:00 Dose: 3 mg Metoclopramide HCl (Reglan -) 10 mg PO TIDAC [facility] Last Admin: 04/04/19 11:26 Dose: 10 mg Morphine Sulfate (Morphine Sulfate) 2 mg IVPUSH Q6H PRN PRN Reason: PAIN LEVEL 7 - 10 Last Admin: 04/04/19 09:10 Dose: 2 mg Nifedipine (Procardia Xl -) 90 mg PO DAILY [facility] Oxycodone HCl (Roxicodone -) 5 mg PO Q6H PRN PRN Reason: PAIN LEVEL 4 - 6 Last Admin: 04/03/19 16:45 Dose: 5 mg Pantoprazole Sodium (Protonix -) 40 mg PO DAILY [facility] Last Admin: 04/04/19 09:05 Dose: 40 mg Senna (Senna -) 2 tab PO HS [facility] Last Admin: 04/04/19 00:00 Dose: 2 tab - Objective Vital Signs: Vital Signs Temperature 99.8 F H 04/04/19 14:29 Pulse Rate 94 H 04/04/19 14:29 Respiratory Rate 18 04/04/19 14:29 Blood Pressure 164/73 04/04/19 14:29 O2 Sat by Pulse Oximetry (%) 97 04/04/19 09:00 Constitutional: Yes: Calm Eyes: Yes: Conjunctiva Clear HENT: Yes: Atraumatic Neck: Yes: Supple Cardiovascular: Yes: S1, S2 Respiratory: Yes: CTA Bilaterally Gastrointestinal: Yes: Soft Edema: No Integumentary: Yes: Erythema Wound/Incision: Yes: Open to air Neurological: Yes: Oriented Psychiatric: Yes: Oriented Labs: CBC, BMP 04/04/19 09:15 04/04/19 09:15 INR, PTT INR 1.04 (0.83-1.09) 04/02/19 19:00 Problem List - Problems (1) Cellulitis of left lower extremity Code(s): L03.116 - CELLULITIS OF LEFT LOWER LIMB (2) End stage renal disease on dialysis Code(s): N18.6 - END STAGE RENAL DISEASE; Z99.2 - DEPENDENCE ON RENAL DIALYSIS Assessment/Plan Current Medications Generic Name Dose Route Start Last Admin Trade Name Ignacio PRN Reason Stop Dose Admin Acetaminophen 650 mg 04/03/19 09:20 04/03/19 16:45 Tylenol - PO 650 mg Q6H PRN Administration PAIN LEVEL 1 - 3 Baclofen 10 mg 04/03/19 22:00 04/04/19 00:00 Lioresal - PO 10 mg HS [facility] Administration Bisacodyl 5 mg 04/03/19 10:00 04/04/19 09:05 Dulcolax - PO 5 mg DAILY [facility] Administration Buspirone HCl 10 mg 04/03/19 10:00 04/04/19 09:05 Buspar - PO 10 mg BID [facility] Administration Calcium Acetate 667 mg 04/03/19 08:00 04/04/19 11:26 Phoslo - PO 667 mg TIDCM [facility] Administration Carvedilol 25 mg 04/03/19 10:00 04/04/19 09:05 Coreg - PO Not Given BID [facility] Docusate Sodium 300 mg 04/03/19 22:00 04/03/19 23:59 Colace - PO 300 mg HS [facility] Administration Famotidine 20 mg 04/03/19 10:00 04/04/19 09:04 Pepcid - PO 20 mg DAILY [facility] Administration Heparin Sodium (Porcine) 5,000 unit 04/03/19 06:00 04/04/19 13:48 Heparin - SQ 5,000 unit TID [facility] Administration Hydralazine HCl 100 mg 04/04/19 13:39 04/04/19 13:48 Apresoline - PO 100 mg TID [facility] Administration Piperacillin Sod/Tazobactam 50 mls @ 100 mls/hr 04/03/19 11:45 04/04/19 09:05 Sod 2.25 gm/ Dextrose IVPB 100 mls/hr Q8H-IV [facility] Administration Protocol Insulin Aspart 1 vial 04/03/19 07:00 04/04/19 11:28 Novolog Vial Sliding Scale - SQ 8 units ACHS [facility] Administration Protocol Insulin Aspart 5 units 04/04/19 17:30 Novolog Vial SQ BIDWM [facility] Insulin Detemir 30 units 04/03/19 22:00 04/04/19 00:15 Levemir Vial SQ 30 units HS [facility] Administration Insulin Detemir 35 units 04/03/19 10:00 04/04/19 09:04 Levemir Vial SQ Not Given DAILY [facility] Losartan Potassium 100 mg 04/03/19 10:00 04/04/19 09:05 Cozaar - PO Not Given DAILY [facility] Melatonin 3 mg 04/03/19 22:00 04/04/19 00:00 Melatonin PO 3 mg HS [facility] Administration Metoclopramide HCl 10 mg 04/03/19 07:00 04/04/19 11:26 Reglan - PO 10 mg TIDAC [facility] Administration Morphine Sulfate 2 mg 04/03/19 09:20 04/04/19 09:10 Morphine Sulfate IVPUSH 2 mg Q6H PRN Administration PAIN LEVEL 7 - 10 Nifedipine 90 mg 04/04/19 13:39 Procardia Xl - PO DAILY [facility] Oxycodone HCl 5 mg 04/03/19 09:20 04/03/19 16:45 Roxicodone - PO 5 mg Q6H PRN Administration PAIN LEVEL 4 - 6 Pantoprazole Sodium 40 mg 04/03/19 10:00 04/04/19 09:05 Protonix - PO 40 mg DAILY [facility] Administration Senna 2 tab 04/03/19 22:00 04/04/19 00:00 Senna - PO 2 tab HS [facility] Administration Impression 1. ESRD 2. DM 3. HTN 4. gastroparesis 5. nausea 6. anemia 7. peripheral neuropathy 8. foot infection/cellulitis Plan - HD tomorrow - ct scan before HD - abx per ID - vascular follow up - HD time 345 400 abf 2000 heparin bolus 500 maintenance - monitor bp - will follow Dr Arredondo
--- NOTE | 2019-04-04 16:25 | PN ---
Progress Note (short form) - Note Progress Note: alert now considering amputation of the toe for cta in am to evaluate blood flow to the foot Vital Signs Period Temp Pulse Resp BP Sys/Rivera Pulse Ox Last 24 Hr 98.0 F-100.3 F 71-94 16-22 96-164/49-93 97-100 cor-rrr lungs clear abd soft,nt ext +purulent drainage from the toe which is darkened CBC, BMP 04/04/19 09:15 04/04/19 09:15 Microbiology 04/02/19 19:20 Toe - Left Fifth Gram Stain - Final 04/02/19 19:20 Toe - Left Fifth Wound Culture - Preliminary Presumptive Mssa (Pbp2a Neg) Strep Agalactiae Group B Pending Organism 04/02/19 20:00 Blood - Peripheral Venous Blood Culture - Preliminary NO GROWTH OBTAINED AFTER 24 HOURS, INCUBATION TO CONTINUE FOR 4 DAYS. 04/02/19 20:00 Blood - Peripheral Venous Blood Culture - Preliminary NO GROWTH OBTAINED AFTER 24 HOURS, INCUBATION TO CONTINUE FOR 4 DAYS. imp/reccd diabetic foot infection- osteomyelitis by MRI with clinical abscess of the toe with purulent drainage noted esrd/hd ?PVD for CTA tomorrow she is thinking about surgery/toe amputation d/c vancomycin no MRSA continue zosyn until cultures are back d/w hospitalist Problem List - Problems (1) Diabetic infection of left foot Code(s): E11.628 - TYPE 2 DIABETES MELLITUS WITH OTHER SKIN COMPLICATIONS; L08.9 - LOCAL INFECTION OF THE SKIN AND SUBCUTANEOUS TISSUE, UNSP (2) End stage renal disease on dialysis Code(s): N18.6 - END STAGE RENAL DISEASE; Z99.2 - DEPENDENCE ON RENAL DIALYSIS
[2019-04-04] MEDS: INSULIN (NOVOLOG) ASPART 100 UNITS/ML 10ML VIAL SQ SCH (16:31)
[2019-04-04] MEDS ORDERED: PT OWN MED DRAWER 7, Y5N ONE (17:37)
[2019-04-04] MEDS: DOCUSATE SODIUM 100 MG CAPSULE (FP) PO SCH (22:56)
[2019-04-04] MEDS: SENNOSIDES 8.6MG TABLET (FP) PO SCH ×2 (22:57)
[2019-04-04] MEDS: BACLOFEN 10 MG TABLET (FP) PO SCH ×2 (23:00)
[2019-04-04] MEDS: MELATONIN 1 MG TABLET PO SCH ×2 (23:03)
[2019-04-04] MEDS: ACETAMINOPHEN 325 MG TABLET (FP) PO PRN (23:36)
[2019-04-05] MEDS ORDERED: PIPERACILLIN/TAZOBACTAM 2.25 GM VIAL IVPB ONE ×3 (01:30→18:27)
[2019-04-05] MEDS ORDERED: DEXTROSE 5%-WATER - 50 ML IVPB ONE ×3 (01:31→18:28)
[2019-04-05] MEDS: PIPERACILLIN/TAZOB 2.25 GM 2.25 GM in DEXTROSE 5%-WATER - 50 ML IVPB SCH ×3 (01:53→18:32)
[2019-04-05] MEDS: oxyCODONE HCL 5 MG TABLET PO PRN ×2 (02:57→14:08)
[2019-04-05] MEDS ORDERED: INSULIN (NOVOLOG) ASPART 100 UNITS/ML 10ML VIAL ONE ×2 (05:51→20:12)
[2019-04-05] MEDS: hydrALAZINE HCL 50 MG TABLET (FP) PO SCH ×3 (05:59→21:09)
[2019-04-05] MEDS: METOCLOPRAMIDE HCL 10 MG TABLET (FP) PO SCH ×3 (05:59→16:48)
[2019-04-05] MEDS: INSULIN SLIDING SCALE (NOVOLOG) 1 VIAL SQ SCH ×4 (06:00→21:07)
[2019-04-05] MEDS: HEPARIN NA (PORCINE) 5,000 UNITS/ML 1ML VIAL SQ SCH ×3 (06:00→21:08)
[2019-04-05] MEDS ORDERED: SODIUM CHLORIDE 250 ML IV PRN (09:07)
[2019-04-05] MEDS: INSULIN (NOVOLOG) ASPART 100 UNITS/ML 10ML VIAL SQ SCH ×2 (09:07→16:50)
[2019-04-05] MEDS: CALCIUM ACETATE 667 MG CAPSULE (FP) PO SCH ×3 (09:09→18:34)
[2019-04-05] MEDS ORDERED: HEPARIN NA (PORCINE) 5,000 UNITS/ML 1ML VIAL IVPUSH ONE (09:15)
[2019-04-05] MEDS: HEPARIN NA (PORCINE) 5,000 UNITS/ML 1ML VIAL IVPUSH SCH ×3 (09:15→11:15)
[2019-04-05 09:45] LABS: HEMATOCRIT 27.8 % (32.4-45.2); HEMOGLOBIN 9.4 GM/dL (10.7-15.3); MCH 31.8 pg (25.7-33.7); MCHC 33.7 g/dl (32.0-36.0); MEAN CELL VOLUME 94.4 fl (80-96); MEAN PLT VOLUME 9.1 fl (7.5-11.1); PLATELET COUNT 317 K/MM3 (134-434); RBC 2.95 M/mm3 (3.60-5.2); WHITE BLOOD COUNT 13.3 K/mm3 (4.0-10.0)
[2019-04-05 10:02] LABS: CALCIUM 9.1 mg/dL (8.5-10.1); POTASSIUM 3.8 mmol/L (3.5-5.1)
[2019-04-05 10:20] LABS: CREATININE 7.4 mg/dL (0.55-1.3)
[2019-04-05] MEDS ORDERED: METOCLOPRAMIDE HCL INJECTION 10 MG/2 ML VIAL IVPUSH ONE (13:13)
[2019-04-05] MEDS: LOSARTAN POTASSIUM 50 MG TABLET (FP) PO SCH (13:18)
[2019-04-05] MEDS: CARVEDILOL 25 MG TABLET (FP) PO SCH ×2 (13:20→21:09)
[2019-04-05] MEDS: PANTOPRAZOLE 40 MG TABLET (FP) PO SCH (13:20)
[2019-04-05] MEDS: FAMOTIDINE 20 MG TABLET PO SCH (13:20)
[2019-04-05] MEDS: BISACODYL 5 MG TABLET.DR (FP) PO SCH (13:20)
[2019-04-05] MEDS: NIFEdipine E.R. 90 MG TABLET (FP) PO SCH (13:21)
[2019-04-05] MEDS: INSULIN (LEVEMIR) 100 UNITS/ML UNITS SQ SCH ×2 (13:21→21:08)
[2019-04-05] MEDS: busPIRone HCL 10 MG TABLET (FP) PO SCH ×2 (13:25→21:52)
[2019-04-05 13:41] LABS: BLOOD UREA NITROGEN 11.8 mg/dL (7-18); CREATININE 2.5 mg/dL (0.55-1.3)
[2019-04-05] MEDS: MORPHINE SULFATE 2 MG/ML VIAL IVPUSH PRN ×2 (14:53→20:34)
--- NOTE | 2019-04-05 17:33 | PN ---
Progress Note, Physician History of Present Illness: Pt seen and examined at bedside. She tolerated HD today. She denies shortness of breath. - Current Medication List Current Medications: Active Medications Acetaminophen (Tylenol -) 650 mg PO Q6H PRN PRN Reason: PAIN LEVEL 1 - 3 Last Admin: 04/04/19 23:36 Dose: 650 mg Baclofen (Lioresal -) 10 mg PO HS [facility] Last Admin: 04/04/19 23:00 Dose: 10 mg Bisacodyl (Dulcolax -) 5 mg PO DAILY [facility] Last Admin: 04/05/19 13:20 Dose: 5 mg Buspirone HCl (Buspar -) 10 mg PO BID [facility] Last Admin: 04/05/19 13:25 Dose: 10 mg Calcium Acetate (Phoslo -) 667 mg PO TIDCM [facility] Last Admin: 04/05/19 13:22 Dose: 667 mg Carvedilol (Coreg -) 25 mg PO BID [facility] Last Admin: 04/05/19 13:20 Dose: 25 mg Docusate Sodium (Colace -) 300 mg PO HS [facility] Last Admin: 04/04/19 22:56 Dose: 300 mg Famotidine (Pepcid -) 20 mg PO DAILY [facility] Last Admin: 04/05/19 13:20 Dose: 20 mg Heparin Sodium (Porcine) (Heparin -) 5,000 unit SQ TID [facility] Last Admin: 04/05/19 15:59 Dose: Not Given Hydralazine HCl (Apresoline -) 100 mg PO TID [facility] Last Admin: 04/05/19 13:19 Dose: 100 mg Piperacillin Sod/Tazobactam (Sod 2.25 gm/ Dextrose) 50 mls @ 100 mls/hr IVPB Q8H-IV [facility]; Protocol Last Admin: 04/05/19 12:58 Dose: 100 mls/hr Insulin Aspart (Novolog Vial Sliding Scale -) 1 vial SQ ACHS [facility]; Protocol Last Admin: 04/05/19 16:48 Dose: 6 units Insulin Aspart (Novolog Vial) 5 units SQ BIDWM [facility] Last Admin: 04/05/19 16:50 Dose: 5 units Insulin Detemir (Levemir Vial) 30 units SQ HS [facility] Last Admin: 04/04/19 23:01 Dose: 30 units Insulin Detemir (Levemir Vial) 35 units SQ DAILY [facility] Last Admin: 04/05/19 13:21 Dose: Not Given Losartan Potassium (Cozaar -) 100 mg PO DAILY [facility] Last Admin: 04/05/19 13:18 Dose: 100 mg Melatonin (Melatonin) 3 mg PO HS [facility] Last Admin: 04/04/19 23:03 Dose: 3 mg Metoclopramide HCl (Reglan -) 10 mg PO TIDAC [facility] Last Admin: 04/05/19 16:48 Dose: 10 mg Morphine Sulfate (Morphine Sulfate) 2 mg IVPUSH Q6H PRN PRN Reason: PAIN LEVEL 7 - 10 Last Admin: 04/05/19 14:53 Dose: 2 mg Nifedipine (Procardia Xl -) 90 mg PO DAILY [facility] Last Admin: 04/05/19 13:21 Dose: 90 mg Oxycodone HCl (Roxicodone -) 5 mg PO Q6H PRN PRN Reason: PAIN LEVEL 4 - 6 Last Admin: 04/05/19 14:08 Dose: 5 mg Pantoprazole Sodium (Protonix -) 40 mg PO DAILY [facility] Last Admin: 04/05/19 13:20 Dose: 40 mg Senna (Senna -) 2 tab PO HS [facility] Last Admin: 04/04/19 22:57 Dose: 2 tab - Objective Vital Signs: Vital Signs Temperature 99.7 F H 04/05/19 15:14 Pulse Rate 88 04/05/19 15:14 Respiratory Rate 18 04/05/19 15:14 Blood Pressure 144/68 04/05/19 15:14 O2 Sat by Pulse Oximetry (%) 99 04/04/19 19:30 Constitutional: Yes: Calm Eyes: Yes: Conjunctiva Clear HENT: Yes: Atraumatic Neck: Yes: Supple Cardiovascular: Yes: S1, S2 Respiratory: Yes: CTA Bilaterally Gastrointestinal: Yes: Soft Genitourinary: Yes: WNL Musculoskeletal: Yes: WNL Edema: No Wound/Incision: Yes: Open to air Labs: CBC, BMP 04/05/19 09:00 04/05/19 12:45 INR, PTT INR 1.04 (0.83-1.09) 04/02/19 19:00 Problem List - Problems (1) Cellulitis of left lower extremity Code(s): L03.116 - CELLULITIS OF LEFT LOWER LIMB (2) End stage renal disease on dialysis Code(s): N18.6 - END STAGE RENAL DISEASE; Z99.2 - DEPENDENCE ON RENAL DIALYSIS Assessment/Plan Current Medications Generic Name Dose Route Start Last Admin Trade Name Ignaico PRN Reason Stop Dose Admin Acetaminophen 650 mg 04/03/19 09:20 04/04/19 23:36 Tylenol - PO 650 mg Q6H PRN Administration PAIN LEVEL 1 - 3 Baclofen 10 mg 04/03/19 22:00 04/04/19 23:00 Lioresal - PO 10 mg HS [facility] Administration Bisacodyl 5 mg 04/03/19 10:00 04/05/19 13:20 Dulcolax - PO 5 mg DAILY [facility] Administration Buspirone HCl 10 mg 04/03/19 10:00 04/05/19 13:25 Buspar - PO 10 mg BID [facility] Administration Calcium Acetate 667 mg 04/03/19 08:00 04/05/19 13:22 Phoslo - PO 667 mg TIDCM [facility] Administration Carvedilol 25 mg 04/03/19 10:00 04/05/19 13:20 Coreg - PO 25 mg BID [facility] Administration Docusate Sodium 300 mg 04/03/19 22:00 04/04/19 22:56 Colace - PO 300 mg HS [facility] Administration Famotidine 20 mg 04/03/19 10:00 04/05/19 13:20 Pepcid - PO 20 mg DAILY [facility] Administration Heparin Sodium (Porcine) 5,000 unit 04/03/19 06:00 04/05/19 15:59 Heparin - SQ Not Given TID [facility] Hydralazine HCl 100 mg 04/04/19 13:39 04/05/19 13:19 Apresoline - PO 100 mg TID [facility] Administration Piperacillin Sod/Tazobactam 50 mls @ 100 mls/hr 04/03/19 11:45 04/05/19 12:58 Sod 2.25 gm/ Dextrose IVPB 100 mls/hr Q8H-IV [facility] Administration Protocol Insulin Aspart 1 vial 04/03/19 07:00 04/05/19 16:48 Novolog Vial Sliding Scale - SQ 6 units ACHS [facility] Administration Protocol Insulin Aspart 5 units 04/04/19 17:30 04/05/19 16:50 Novolog Vial SQ 5 units BIDWM [facility] Administration Insulin Detemir 30 units 04/03/19 22:00 04/04/19 23:01 Levemir Vial SQ 30 units HS [facility] Administration Insulin Detemir 35 units 04/03/19 10:00 04/05/19 13:21 Levemir Vial SQ Not Given DAILY [facility] Losartan Potassium 100 mg 04/03/19 10:00 04/05/19 13:18 Cozaar - PO 100 mg DAILY [facility] Administration Melatonin 3 mg 04/03/19 22:00 04/04/19 23:03 Melatonin PO 3 mg HS [facility] Administration Metoclopramide HCl 10 mg 04/03/19 07:00 04/05/19 16:48 Reglan - PO 10 mg TIDAC [facility] Administration Morphine Sulfate 2 mg 04/03/19 09:20 04/05/19 14:53 Morphine Sulfate IVPUSH 2 mg Q6H PRN Administration PAIN LEVEL 7 - 10 Nifedipine 90 mg 04/04/19 13:39 04/05/19 13:21 Procardia Xl - PO 90 mg DAILY [facility] Administration Oxycodone HCl 5 mg 04/03/19 09:20 04/05/19 14:08 Roxicodone - PO 5 mg Q6H PRN Administration PAIN LEVEL 4 - 6 Pantoprazole Sodium 40 mg 04/03/19 10:00 04/05/19 13:20 Protonix - PO 40 mg DAILY [facility] Administration Senna 2 tab 04/03/19 22:00 04/04/19 22:57 Senna - PO 2 tab HS [facility] Administration Impression 1. ESRD 2. DM 3. HTN 4. gastroparesis 5. nausea 6. anemia 7. peripheral neuropathy 8. foot infection/cellulitis Plan - Pt tolerated HD - follow up ct results - vascular follow up - abx per ID - HD time 345 400 abf 2000 heparin bolus [address] Arredondo
--- NOTE | 2019-04-05 18:05 | PN ---
Progress Note (short form) - Note Progress Note: 53 F h/o uncontrolled T2DM, ESRD on HD, HTN, DM neuropathy and gastroparesis with L 5th toe osteomyelitis 2/2 diabetic foot infection. Patient seen at bedside today, still hesitant about toe amputation wants to await CT-A results first. CT-A completed waiting on interpretation from radiologist. L 5th toe expressing pus and serosanguinous fluid, antibiotics to be continued. Patient denies fever, chills, SOB, cough. Vital Signs (72 hours) 04/02/19 04/03/19 04/03/19 23:07 03:57 06:30 Temperature 98.9 F 98.5 F Pulse Rate Pulse Rate [ 71 82 Right Brachial] Respiratory 18 15 Rate Blood Pressure Blood Pressure 167/55 L 120/66 [Right Arm] O2 Sat by Pulse 98 98 98 Oximetry (%) 04/03/19 04/03/19 04/03/19 10:02 11:14 11:15 Temperature 97.2 F L Pulse Rate Pulse Rate [ 76 Right Brachial] Respiratory 18 Rate Blood Pressure Blood Pressure 156/63 [Right Arm] O2 Sat by Pulse 98 100 Oximetry (%) 04/03/19 04/03/19 04/03/19 12:30 12:35 13:05 Temperature 98.4 F Pulse Rate 70 72 67 Pulse Rate [ Right Brachial] Respiratory 18 18 18 Rate Blood Pressure 132/61 151/78 167/74 Blood Pressure [Right Arm] O2 Sat by Pulse Oximetry (%) 04/03/19 04/03/19 04/03/19 13:35 14:05 14:35 Temperature Pulse Rate 69 71 73 Pulse Rate [ Right Brachial] Respiratory 18 18 18 Rate Blood Pressure 172/68 H 173/71 H 161/77 Blood Pressure [Right Arm] O2 Sat by Pulse Oximetry (%) 04/03/19 04/03/19 04/03/19 15:05 15:35 16:05 Temperature Pulse Rate 75 78 81 Pulse Rate [ Right Brachial] Respiratory 18 18 18 Rate Blood Pressure 160/69 171/77 H 179/64 H Blood Pressure [Right Arm] O2 Sat by Pulse Oximetry (%) 04/03/19 04/03/19 04/03/19 16:19 16:40 20:01 Temperature 99.1 F Pulse Rate 79 Pulse Rate [ 84 80 Right Brachial] Respiratory 18 16 22 H Rate Blood Pressure 174/81 H Blood Pressure 133/59 L 132/93 [Right Arm] O2 Sat by Pulse 100 99 Oximetry (%) 04/03/19 04/04/19 04/04/19 23:33 02:00 06:00 Temperature 100.3 F H 99.3 F 99.9 F H Pulse Rate 88 78 71 Pulse Rate [ Right Brachial] Respiratory 18 18 18 Rate Blood Pressure 149/60 145/74 140/64 Blood Pressure [Right Arm] O2 Sat by Pulse 100 Oximetry (%) 04/04/19 04/04/19 04/04/19 09:00 14:29 17:43 Temperature 98.0 F 99.8 F H 97.8 F Pulse Rate 79 94 H 95 H Pulse Rate [ Right Brachial] Respiratory 18 18 18 Rate Blood Pressure 96/49 L 164/73 156/75 Blood Pressure [Right Arm] O2 Sat by Pulse 97 Oximetry (%) 04/04/19 04/04/19 04/05/19 19:30 23:00 03:04 Temperature 100.1 F H 99 F Pulse Rate 94 H Pulse Rate [ Right Brachial] Respiratory 17 Rate Blood Pressure 155/73 Blood Pressure [Right Arm] O2 Sat by Pulse 99 Oximetry (%) 04/05/19 04/05/19 04/05/19 06:12 08:55 09:00 Temperature 98.8 F 98.4 F Pulse Rate 90 76 72 Pulse Rate [ Right Brachial] Respiratory 18 18 18 Rate Blood Pressure 150/71 178/75 H 178/75 H Blood Pressure [Right Arm] O2 Sat by Pulse Oximetry (%) 04/05/19 04/05/19 04/05/19 09:30 10:00 10:30 Temperature Pulse Rate 71 71 72 Pulse Rate [ Right Brachial] Respiratory 18 18 18 Rate Blood Pressure 161/87 146/71 170/84 Blood Pressure [Right Arm] O2 Sat by Pulse Oximetry (%) 04/05/19 04/05/19 04/05/19 11:00 11:30 12:00 Temperature Pulse Rate 70 80 81 Pulse Rate [ Right Brachial] Respiratory 18 18 18 Rate Blood Pressure 147/81 174/84 H 175/79 H Blood Pressure [Right Arm] O2 Sat by Pulse Oximetry (%) 04/05/19 04/05/19 04/05/19 12:30 12:45 12:58 Temperature Pulse Rate 82 80 82 Pulse Rate [ Right Brachial] Respiratory 18 18 18 Rate Blood Pressure 193/103 H 180/96 H 183/88 H Blood Pressure [Right Arm] O2 Sat by Pulse Oximetry (%) 04/05/19 15:14 Temperature 99.7 F H Pulse Rate 88 Pulse Rate [ Right Brachial] Respiratory 18 Rate Blood Pressure 144/68 Blood Pressure [Right Arm] O2 Sat by Pulse Oximetry (%) PE VS stable. GA comfortable, NAD, speaks in full sentences, AAox3 HEENT NC/AT, EOMI, neck supple CHEST: CTAB, no crackles or wheezing CVS: S1, S2+, RRR, no m/r/g Abdomen: Soft, NT, ND, BS+ Extremities: L foot pedal pulses not palpable, fluctuance+ with pus and serosanguinous discharge, duskiness with mild ischemic changes to L 5th digit, tenderness to palpation, surrounding erythema to 5th digit, no soft tissue crepitus R foot palpable pulse, no visible ulcers, wounds or discoloration. No LE edema, no calf tenderness Laboratory Results - last 24 hr 04/03/19 04/04/19 04/04/19 12:35 22:58 22:59 WBC RBC Hgb Hct MCV MCH MCHC RDW Plt Count MPV Sodium Potassium Chloride Carbon Dioxide Anion Gap BUN Creatinine Est GFR (CKD-EPI)AfAm Est GFR (CKD-EPI)NonAf POC Glucometer 403 350 Random Glucose Calcium Hep Bs Antigen Negative Hep C Ab Diagnostic 0.1 04/05/19 04/05/19 04/05/19 05:55 08:47 09:00 WBC RBC Hgb Hct MCV MCH MCHC RDW Plt Count MPV Sodium 127 L Potassium 3.8 Chloride 92 L Carbon Dioxide 26 Anion Gap 9 BUN 44.0 H Creatinine 7.4 H* Est GFR (CKD-EPI)AfAm 6.63 Est GFR (CKD-EPI)NonAf 5.72 POC Glucometer 102 87 Random Glucose 95 Calcium 9.1 Hep Bs Antigen Hep C Ab Diagnostic 04/05/19 04/05/19 04/05/19 09:00 12:41 12:45 WBC 13.3 H RBC 2.95 L Hgb 9.4 L Hct 27.8 L MCV 94.4 MCH 31.8 MCHC 33.7 RDW 14.0 Plt Count 317 MPV 9.1 Sodium Potassium Chloride Carbon Dioxide Anion Gap BUN 11.8 Creatinine 2.5 H Est GFR (CKD-EPI)AfAm 24.60 Est GFR (CKD-EPI)NonAf 21.23 POC Glucometer 120 Random Glucose Calcium Hep Bs Antigen Hep C Ab Diagnostic 04/05/19 16:44 WBC RBC Hgb Hct MCV MCH MCHC RDW Plt Count MPV Sodium Potassium Chloride Carbon Dioxide Anion Gap BUN Creatinine Est GFR (CKD-EPI)AfAm Est GFR (CKD-EPI)NonAf POC Glucometer 291 Random Glucose Calcium Hep Bs Antigen Hep C Ab Diagnostic Microbiology 04/02/19 19:20 Gram Stain - Final Toe - Left Fifth Wound Culture - Preliminary Staphylococcus Aureus Strep Agalactiae Group B 04/02/19 20:00 Blood Culture - Preliminary Blood - Peripheral Venous NO GROWTH OBTAINED AFTER 48 HOURS, INCUBATION TO CONTINUE FOR 3 DAYS. 04/02/19 20:00 Blood Culture - Preliminary Blood - Peripheral Venous NO GROWTH OBTAINED AFTER 48 HOURS, INCUBATION TO CONTINUE FOR 3 DAYS. A/P: 53 F ESRD on HD, uncontrolled DM 2, HTN, HLD, ?PVD, admitted for L 5th toe osteomyelitis awaiting CT-A results. L 5th toe osteomyelitis Continue current antibiotics, follow cultures, ID consult appreciated. Awaiting CT-A interpretation by radiologist, will evaluate the need for revascularization prior to possible amputation as this will affect healing outcome Vascular waiting for CT-A results Continue Zosyn, culture noted DC Vancomycin, pain control with Percocet PRN and IV morphine for breakthrough pain Strict glycemic control T2DM Improving F/S, Cont. Novolog 5u before lunch and dinner and supplement with sliding scale ESRD HD schedule as per renal, electrolytes stable received HD today, tolerated well, control BP after HD HTN Continue home BP meds Anxiety Disorder Continue home psych meds Major depressive disorder Continue home meds GERD Continue Protonix Bowel regimen with Senna, Docusate, supplement with Miralax daily DVT ppx: Heparin SC Visit type - Emergency Visit Emergency Visit: Yes ED Registration Date: 04/02/19 Care time: The patient presented to the Emergency Department on the above date and was hospitalized for further evaluation of their emergent condition. - New Patient This patient is new to me today: No - Critical Care Critical Care patient: No - Discharge Referral Referred to [facility] Med P.C.: No
[2019-04-05] MEDS ORDERED: PT OWN MED DRAWER 7, Y5N ONE (20:11)
[2019-04-05] MEDS: ACETAMINOPHEN 325 MG TABLET (FP) PO PRN (20:33)
[2019-04-05] MEDS: DOCUSATE SODIUM 100 MG CAPSULE (FP) PO SCH (21:08)
[2019-04-05] MEDS: SENNOSIDES 8.6MG TABLET (FP) PO SCH (21:09)
[2019-04-05] MEDS: BACLOFEN 10 MG TABLET (FP) PO SCH (21:09)
[2019-04-05] MEDS: MELATONIN 1 MG TABLET PO SCH (21:52)
[2019-04-06] MEDS ORDERED: ONDANSETRON 4 MG TABLET PO ONE (00:59)
[2019-04-06] MEDS ORDERED: PIPERACILLIN/TAZOBACTAM 2.25 GM VIAL IVPB ONE ×2 (01:11→08:23)
[2019-04-06] MEDS ORDERED: DEXTROSE 5%-WATER - 50 ML IVPB ONE ×3 (01:11→13:28)
[2019-04-06] MEDS: PIPERACILLIN/TAZOB 2.25 GM 2.25 GM in DEXTROSE 5%-WATER - 50 ML IVPB SCH ×2 (01:16→09:04)
[2019-04-06] MEDS: hydrALAZINE HCL 50 MG TABLET (FP) PO SCH ×3 (05:55→21:57)
[2019-04-06] MEDS: HEPARIN NA (PORCINE) 5,000 UNITS/ML 1ML VIAL SQ SCH ×3 (05:55→21:59)
[2019-04-06] MEDS ORDERED: PT OWN MED DRAWER 7, Y5N ONE ×3 (05:58→21:39)
[2019-04-06] MEDS: METOCLOPRAMIDE HCL 10 MG TABLET (FP) PO SCH ×3 (06:26→17:18)
[2019-04-06] MEDS: INSULIN SLIDING SCALE (NOVOLOG) 1 VIAL SQ SCH ×4 (06:27→21:58)
[2019-04-06] MEDS: CALCIUM ACETATE 667 MG CAPSULE (FP) PO SCH ×3 (09:04→17:18)
[2019-04-06] MEDS: busPIRone HCL 10 MG TABLET (FP) PO SCH ×2 (09:05→21:57)
[2019-04-06] MEDS: CARVEDILOL 25 MG TABLET (FP) PO SCH ×2 (09:05→21:57)
[2019-04-06] MEDS: BISACODYL 5 MG TABLET.DR (FP) PO SCH (09:06)
[2019-04-06] MEDS: LOSARTAN POTASSIUM 50 MG TABLET (FP) PO SCH (09:06)
[2019-04-06] MEDS: FAMOTIDINE 20 MG TABLET PO SCH (09:07)
[2019-04-06] MEDS: PANTOPRAZOLE 40 MG TABLET (FP) PO SCH (09:07)
[2019-04-06] MEDS: NIFEdipine E.R. 90 MG TABLET (FP) PO SCH (09:07)
[2019-04-06] MEDS: INSULIN (NOVOLOG) ASPART 100 UNITS/ML 10ML VIAL SQ SCH ×2 (09:29→17:25)
[2019-04-06] MEDS: INSULIN (LEVEMIR) 100 UNITS/ML UNITS SQ SCH ×2 (09:31→21:58)
--- NOTE | 2019-04-06 11:46 | PN ---
Progress Note (short form) - Note Progress Note: alert now considering amputation of the toe cta results pending fever to 101 last night noted she is asymptomatic no diarrhea, no cough, no abdominal pain Vital Signs Period Temp Pulse Resp BP Sys/Rivera Pulse Ox Last 24 Hr 98.5 F-101.0 F 80-88 18-20 133-193/54-103 97 cor-rrr lungs clear abd soft,nt ext foot with draining abscess minimal erythema or pain CBC, BMP 04/05/19 09:00 04/05/19 12:45 Microbiology 04/02/19 19:20 Toe - Left Fifth Gram Stain - Final 04/02/19 19:20 Toe - Left Fifth Wound Culture - Final Staphylococcus Aureus Strep Agalactiae Group B 04/02/19 20:00 Blood - Peripheral Venous Blood Culture - Preliminary NO GROWTH OBTAINED AFTER 72 HOURS, INCUBATION TO CONTINUE FOR 2 DAYS. 04/02/19 20:00 Blood - Peripheral Venous Blood Culture - Preliminary NO GROWTH OBTAINED AFTER 72 HOURS, INCUBATION TO CONTINUE FOR 2 DAYS. imp/reccd fever reculture diabetic foot infection- osteomyelitis by MRI with clinical abscess of the toe with purulent drainage noted esrd/hd ?PVD awaiting vascular and podiatry f/u will reculture switch to ancef and flagyl Problem List - Problems (1) Diabetic infection of left foot Code(s): E11.628 - TYPE 2 DIABETES MELLITUS WITH OTHER SKIN COMPLICATIONS; L08.9 - LOCAL INFECTION OF THE SKIN AND SUBCUTANEOUS TISSUE, UNSP (2) End stage renal disease on dialysis Code(s): N18.6 - END STAGE RENAL DISEASE; Z99.2 - DEPENDENCE ON RENAL DIALYSIS
[2019-04-06] MEDS ORDERED: ceFAZolin SODIUM 1 GM VIAL ONE (13:28)
[2019-04-06] MEDS: CEFAZOLIN 1 GM in DEXTROSE 5%-WATER - 50 ML IVPB SCH (14:57)
[2019-04-06] MEDS: metroNIDAZOLE 250 MG TABLET PO SCH ×2 (14:58→21:57)
--- NOTE | 2019-04-06 16:19 | PN ---
Progress Note (short form) - Note Progress Note: [facility] CT[facility] reviewed. Runoff looks good. No areas of stenosis found. The CTA is not read officially by radiology as of yet. If CTA is WNL, cleared for podiatry intervention for toe amputation. Talon Mcclain DO
[2019-04-06] MEDS: oxyCODONE HCL 5 MG TABLET PO PRN (17:18)
[2019-04-06] MEDS: ACETAMINOPHEN 325 MG TABLET (FP) PO PRN (17:19)
--- NOTE | 2019-04-06 18:54 | PN ---
Progress Note, Physician History of Present Illness: Pt seen and examined at bedside. She is awake and alert. She denies shortness of breath. - Current Medication List Current Medications: Active Medications Acetaminophen (Tylenol -) 650 mg PO Q6H PRN PRN Reason: PAIN LEVEL 1 - 3 Last Admin: 04/06/19 17:19 Dose: 650 mg Baclofen (Lioresal -) 10 mg PO HS [facility] Last Admin: 04/05/19 21:09 Dose: 10 mg Bisacodyl (Dulcolax -) 5 mg PO DAILY [facility] Last Admin: 04/06/19 09:06 Dose: 5 mg Buspirone HCl (Buspar -) 10 mg PO BID [facility] Last Admin: 04/06/19 09:05 Dose: 10 mg Calcium Acetate (Phoslo -) 667 mg PO TIDCM [facility] Last Admin: 04/06/19 17:18 Dose: 667 mg Carvedilol (Coreg -) 25 mg PO BID [facility] Last Admin: 04/06/19 09:05 Dose: 25 mg Docusate Sodium (Colace -) 300 mg PO HS [facility] Last Admin: 04/05/19 21:08 Dose: 300 mg Famotidine (Pepcid -) 20 mg PO DAILY [facility] Last Admin: 04/06/19 09:07 Dose: 20 mg Heparin Sodium (Porcine) (Heparin -) 5,000 unit SQ TID [facility] Last Admin: 04/06/19 14:58 Dose: 5,000 unit Hydralazine HCl (Apresoline -) 100 mg PO TID [facility] Last Admin: 04/06/19 14:58 Dose: 100 mg Cefazolin Sodium 1 gm/ (Dextrose) 50 mls @ 100 mls/hr IVPB DAILY [facility] Last Admin: 04/06/19 14:57 Dose: 100 mls/hr Insulin Aspart (Novolog Vial Sliding Scale -) 1 vial SQ ACHS [facility]; Protocol Last Admin: 04/06/19 17:25 Dose: Not Given Insulin Aspart (Novolog Vial) 5 units SQ BIDWM [facility] Last Admin: 04/06/19 17:25 Dose: 5 units Insulin Detemir (Levemir Vial) 30 units SQ HS [facility] Last Admin: 04/05/19 21:08 Dose: 30 units Insulin Detemir (Levemir Vial) 35 units SQ DAILY [facility] Last Admin: 04/06/19 09:31 Dose: 35 units Losartan Potassium (Cozaar -) 100 mg PO DAILY [facility] Last Admin: 04/06/19 09:06 Dose: 100 mg Melatonin (Melatonin) 3 mg PO HS [facility] Last Admin: 04/05/19 21:52 Dose: 3 mg Metoclopramide HCl (Reglan -) 10 mg PO TIDAC [facility] Last Admin: 04/06/19 17:18 Dose: 10 mg Metronidazole (Flagyl -) 500 mg PO TID [facility] Last Admin: 04/06/19 14:58 Dose: 500 mg Nifedipine (Procardia Xl -) 90 mg PO DAILY [facility] Last Admin: 04/06/19 09:07 Dose: 90 mg Oxycodone HCl (Roxicodone -) 5 mg PO Q6H PRN PRN Reason: PAIN LEVEL 6-10 Last Admin: 04/06/19 17:18 Dose: 5 mg Pantoprazole Sodium (Protonix -) 40 mg PO DAILY [facility] Last Admin: 04/06/19 09:07 Dose: 40 mg Senna (Senna -) 2 tab PO HS [facility] Last Admin: 04/05/19 21:09 Dose: 2 tab - Objective Vital Signs: Vital Signs Temperature 98.6 F 04/06/19 14:36 Pulse Rate 72 04/06/19 14:36 Respiratory Rate 20 04/06/19 14:36 Blood Pressure 147/63 04/06/19 14:36 O2 Sat by Pulse Oximetry (%) 97 04/06/19 09:00 Constitutional: Yes: Calm Eyes: Yes: Conjunctiva Clear HENT: Yes: Atraumatic Cardiovascular: Yes: S1, S2 Respiratory: Yes: CTA Bilaterally Gastrointestinal: Yes: Normal Bowel Sounds, Soft Genitourinary: Yes: WNL Musculoskeletal: Yes: WNL Edema: No Neurological: Yes: Oriented Psychiatric: Yes: Oriented Labs: CBC, BMP 04/05/19 09:00 04/05/19 12:45 INR, PTT INR 1.04 (0.83-1.09) 04/02/19 19:00 Problem List - Problems (1) Cellulitis of left lower extremity Code(s): L03.116 - CELLULITIS OF LEFT LOWER LIMB (2) End stage renal disease on dialysis Code(s): N18.6 - END STAGE RENAL DISEASE; Z99.2 - DEPENDENCE ON RENAL DIALYSIS Assessment/Plan Current Medications Generic Name Dose Route Start Last Admin Trade Name Ignacio PRN Reason Stop Dose Admin Acetaminophen 650 mg 04/03/19 09:20 04/06/19 17:19 Tylenol - PO 650 mg Q6H PRN Administration PAIN LEVEL 1 - 3 Baclofen 10 mg 04/03/19 22:00 04/05/19 21:09 Lioresal - PO 10 mg HS [facility] Administration Bisacodyl 5 mg 04/03/19 10:00 04/06/19 09:06 Dulcolax - PO 5 mg DAILY [facility] Administration Buspirone HCl 10 mg 04/03/19 10:00 04/06/19 09:05 Buspar - PO 10 mg BID [facility] Administration Calcium Acetate 667 mg 04/03/19 08:00 04/06/19 17:18 Phoslo - PO 667 mg TIDCM [facility] Administration Carvedilol 25 mg 04/03/19 10:00 04/06/19 09:05 Coreg - PO 25 mg BID [facility] Administration Docusate Sodium 300 mg 04/03/19 22:00 04/05/19 21:08 Colace - PO 300 mg HS [facility] Administration Famotidine 20 mg 04/03/19 10:00 04/06/19 09:07 Pepcid - PO 20 mg DAILY [facility] Administration Heparin Sodium (Porcine) 5,000 unit 04/03/19 06:00 04/06/19 14:58 Heparin - SQ 5,000 unit TID [facility] Administration Hydralazine HCl 100 mg 04/04/19 13:39 04/06/19 14:58 Apresoline - PO 100 mg TID [facility] Administration Cefazolin Sodium 1 gm/ 50 mls @ 100 mls/hr 04/06/19 12:00 04/06/19 14:57 Dextrose IVPB 100 mls/hr DAILY [facility] Administration Insulin Aspart 1 vial 04/03/19 07:00 04/06/19 17:25 Novolog Vial Sliding Scale - SQ Not Given [facility] Protocol Insulin Aspart 5 units 04/04/19 17:30 04/06/19 17:25 Novolog Vial SQ 5 units BIDWM [facility] Administration Insulin Detemir 30 units 04/03/19 22:00 04/05/19 21:08 Levemir Vial SQ 30 units HS [facility] Administration Insulin Detemir 35 units 04/03/19 10:00 04/06/19 09:31 Levemir Vial SQ 35 units DAILY [facility] Administration Losartan Potassium 100 mg 04/03/19 10:00 04/06/19 09:06 Cozaar - PO 100 mg DAILY [facility] Administration Melatonin 3 mg 04/03/19 22:00 04/05/19 21:52 Melatonin PO 3 mg HS [facility] Administration Metoclopramide HCl 10 mg 04/03/19 07:00 04/06/19 17:18 Reglan - PO 10 mg TIDAC [facility] Administration Metronidazole 500 mg 04/06/19 14:00 04/06/19 14:58 Flagyl - PO 500 mg TID [facility] Administration Nifedipine 90 mg 04/04/19 13:39 04/06/19 09:07 Procardia Xl - PO 90 mg DAILY [facility] Administration Oxycodone HCl 5 mg 04/06/19 17:02 04/06/19 17:18 Roxicodone - PO 5 mg Q6H PRN Administration PAIN LEVEL 6-10 Pantoprazole Sodium 40 mg 04/03/19 10:00 04/06/19 09:07 Protonix - PO 40 mg DAILY [facility] Administration Senna 2 tab 04/03/19 22:00 04/05/19 21:09 Senna - PO 2 tab HS [facility] Administration Impression 1. ESRD 2. DM 3. HTN 4. gastroparesis 5. nausea 6. anemia 7. peripheral neuropathy 8. foot infection/cellulitis Plan - next HD Monday - vascular follow up - follow cta - abx per ID - HD time 345 400 abf 2000 heparin bolus [address] Arredondo
--- NOTE | 2019-04-06 19:08 | PN ---
Progress Note, Physician History of Present Illness: seen and examined at bedside. States she gets nauseous and vomits from morphine. Pain controlled with oxycodone/tylenol. Febrile at 2230 last night. No cultures sent but sent this AM by ID. Abx changed to ancef and flagyl by ID. CTA wet read by vascular noted. final read pending. Patient doesnt want amputation now and says she wants it to dry and fall off on its own because shes worried amputation will make it spread. I explained that it is actually the opposite. States she will think about it and speak with Dr. Mcclain. Denies fever chills at this time vomiting nausea chest pain or SOB. Denies diarrhea. - Current Medication List Current Medications: Active Medications Acetaminophen (Tylenol -) 650 mg PO Q6H PRN PRN Reason: PAIN LEVEL 1 - 3 Last Admin: 04/06/19 17:19 Dose: 650 mg Baclofen (Lioresal -) 10 mg PO [facility] Last Admin: 04/05/19 21:09 Dose: 10 mg Bisacodyl (Dulcolax -) 5 mg PO DAILY [facility] Last Admin: 04/06/19 09:06 Dose: 5 mg Buspirone HCl (Buspar -) 10 mg PO BID [facility] Last Admin: 04/06/19 09:05 Dose: 10 mg Calcium Acetate (Phoslo -) 667 mg PO TIDCM [facility] Last Admin: 04/06/19 17:18 Dose: 667 mg Carvedilol (Coreg -) 25 mg PO BID [facility] Last Admin: 04/06/19 09:05 Dose: 25 mg Docusate Sodium (Colace -) 300 mg PO [facility] Last Admin: 04/05/19 21:08 Dose: 300 mg Famotidine (Pepcid -) 20 mg PO DAILY [facility] Last Admin: 04/06/19 09:07 Dose: 20 mg Heparin Sodium (Porcine) (Heparin -) 5,000 unit SQ TID [facility] Last Admin: 04/06/19 14:58 Dose: 5,000 unit Hydralazine HCl (Apresoline -) 100 mg PO TID [facility] Last Admin: 04/06/19 14:58 Dose: 100 mg Cefazolin Sodium 1 gm/ (Dextrose) 50 mls @ 100 mls/hr IVPB DAILY [facility] Last Admin: 04/06/19 14:57 Dose: 100 mls/hr Insulin Aspart (Novolog Vial Sliding Scale -) 1 vial SQ [facility]; Protocol Last Admin: 04/06/19 17:25 Dose: Not Given Insulin Aspart (Novolog Vial) 5 units SQ BIDWM [facility] Last Admin: 04/06/19 17:25 Dose: 5 units Insulin Detemir (Levemir Vial) 30 units SQ [facility] Last Admin: 04/05/19 21:08 Dose: 30 units Insulin Detemir (Levemir Vial) 35 units SQ DAILY [facility] Last Admin: 04/06/19 09:31 Dose: 35 units Losartan Potassium (Cozaar -) 100 mg PO DAILY [facility] Last Admin: 04/06/19 09:06 Dose: 100 mg Melatonin (Melatonin) 3 mg PO [facility] Last Admin: 04/05/19 21:52 Dose: 3 mg Metoclopramide HCl (Reglan -) 10 mg PO TIDAC [facility] Last Admin: 04/06/19 17:18 Dose: 10 mg Metronidazole (Flagyl -) 500 mg PO TID [facility] Last Admin: 04/06/19 14:58 Dose: 500 mg Nifedipine (Procardia Xl -) 90 mg PO DAILY [facility] Last Admin: 04/06/19 09:07 Dose: 90 mg Oxycodone HCl (Roxicodone -) 5 mg PO Q6H PRN PRN Reason: PAIN LEVEL 6-10 Last Admin: 04/06/19 17:18 Dose: 5 mg Pantoprazole Sodium (Protonix -) 40 mg PO DAILY [facility] Last Admin: 04/06/19 09:07 Dose: 40 mg Senna (Senna -) 2 tab PO [facility] Last Admin: 04/05/19 21:09 Dose: 2 tab - Objective Vital Signs: Vital Signs Temperature 98.6 F 04/06/19 14:36 Pulse Rate 72 04/06/19 14:36 Respiratory Rate 20 04/06/19 14:36 Blood Pressure 147/63 04/06/19 14:36 O2 Sat by Pulse Oximetry (%) 97 04/06/19 09:00 Constitutional: Yes: Well Nourished, No Distress, Calm Eyes: Yes: EOM Intact Neck: Yes: Supple Cardiovascular: Yes: Regular Rate and Rhythm Respiratory: Yes: Other (right side clear and left side has crackles and wheezing) Gastrointestinal: Yes: Normal Bowel Sounds, Soft, Abdomen, Obese. No: Tenderness, Tenderness, Rebound Extremities: Yes: Other (left foot 5th toe is dressed and patient would not let me see it because it is now dressed) Edema: No Wound/Incision: Yes: Other (left foot 5th toe is dressed and patient would not let me see it because it is now dressed) Labs: CBC, BMP 04/05/19 09:00 04/05/19 12:45 INR, PTT INR 1.04 (0.83-1.09) 04/02/19 19:00 - ....Imaging Chest X-ray: Report Reviewed (from admission) Impression/Plan Impression/Plan: 53 F ESRD on HD, uncontrolled DM2, HTN, HLD, likely PVD, admitted for L 5th toe osteomyelitis awaiting CTA results. Left 5th toe osteomyelitis/sepsis/fever Abx changed to ancef and flagyl by ID f/u cultures repeat CXR if spikes again as patient has crackles and wheezing on left only although she is a smoker to r/o new PNA f/u CTA possible amputation if has good flow and patient agrees CBC in AM DM2 Continue lantus BID as prescribed and sliding scale ESRD HD monday per nephrology HTN Continue current antihypertensives needs better control-will discuss with nephrology Anxiety Disorder Continue home psych meds Major depressive disorder Continue buspar Smoker-active counselled on importqance of quitting and she is not interested Constipation Bowel regimen with Senna, Docusate, supplement with Miralax daily as needed GERD Continue Protonix DVT PPx: Heparin SC GI PPx: PPI Visit type - Emergency Visit Emergency Visit: Yes ED Registration Date: 04/02/19 Care time: The patient presented to the Emergency Department on the above date and was hospitalized for further evaluation of their emergent condition. - New Patient This patient is new to me today: Yes Date on this admission: 04/06/19 - Critical Care Critical Care patient: No
[2019-04-06] MEDS ORDERED: INSULIN (NOVOLOG) ASPART 100 UNITS/ML 10ML VIAL ONE (21:52)
[2019-04-06] MEDS: DOCUSATE SODIUM 100 MG CAPSULE (FP) PO SCH (21:57)
[2019-04-06] MEDS: SENNOSIDES 8.6MG TABLET (FP) PO SCH (21:57)
[2019-04-06] MEDS: BACLOFEN 10 MG TABLET (FP) PO SCH (21:57)
[2019-04-06] MEDS: MELATONIN 1 MG TABLET PO SCH (22:05)
[2019-04-07] MEDS: oxyCODONE HCL 5 MG TABLET PO PRN ×2 (04:12→16:08)
[2019-04-07] MEDS: HEPARIN NA (PORCINE) 5,000 UNITS/ML 1ML VIAL SQ SCH ×3 (05:09→21:26)
[2019-04-07] MEDS: hydrALAZINE HCL 50 MG TABLET (FP) PO SCH ×3 (05:09→21:25)
[2019-04-07] MEDS: metroNIDAZOLE 250 MG TABLET PO SCH ×3 (05:09→21:26)
[2019-04-07] MEDS: METOCLOPRAMIDE HCL 10 MG TABLET (FP) PO SCH ×3 (06:26→17:21)
[2019-04-07] MEDS: INSULIN SLIDING SCALE (NOVOLOG) 1 VIAL SQ SCH ×4 (06:29→21:27)
[2019-04-07 08:27] LABS: BASO % 0.8 % (0-2.0); EOS % 3.1 % (0-4.5); HEMATOCRIT 28.9 % (32.4-45.2); HEMOGLOBIN 9.7 GM/dL (10.7-15.3); LYMPH % 13.9 % (8-40); MCHC 33.6 g/dl (32.0-36.0); MEAN CELL VOLUME 95.3 fl (80-96); MEAN PLT VOLUME 9.2 fl (7.5-11.1); MONO % 10.9 % (3.8-10.2); NEUT % 71.3 % (42.8-82.8); PLATELET COUNT 395 K/MM3 (134-434); RBC 3.04 M/mm3 (3.60-5.2); WHITE BLOOD COUNT 11.1 K/mm3 (4.0-10.0)
[2019-04-07] MEDS: CALCIUM ACETATE 667 MG CAPSULE (FP) PO SCH ×3 (08:34→17:21)
[2019-04-07] MEDS: INSULIN (NOVOLOG) ASPART 100 UNITS/ML 10ML VIAL SQ SCH ×2 (08:34→17:21)
[2019-04-07] MEDS ORDERED: DEXTROSE 5%-WATER - 50 ML IVPB ONE (09:19)
[2019-04-07] MEDS ORDERED: ceFAZolin SODIUM 1 GM VIAL ONE (09:19)
[2019-04-07] MEDS: CEFAZOLIN 1 GM in DEXTROSE 5%-WATER - 50 ML IVPB SCH (11:08)
[2019-04-07] MEDS: CARVEDILOL 25 MG TABLET (FP) PO SCH ×2 (11:09→21:26)
[2019-04-07] MEDS: busPIRone HCL 10 MG TABLET (FP) PO SCH ×2 (11:09→21:25)
[2019-04-07] MEDS: LOSARTAN POTASSIUM 50 MG TABLET (FP) PO SCH (11:09)
[2019-04-07] MEDS: INSULIN (LEVEMIR) 100 UNITS/ML UNITS SQ SCH ×2 (11:10→21:26)
[2019-04-07] MEDS: BISACODYL 5 MG TABLET.DR (FP) PO SCH (11:10)
[2019-04-07] MEDS: PANTOPRAZOLE 40 MG TABLET (FP) PO SCH (11:11)
[2019-04-07] MEDS: FAMOTIDINE 20 MG TABLET PO SCH (11:12)
[2019-04-07] MEDS: NIFEdipine E.R. 90 MG TABLET (FP) PO SCH (11:12)
--- NOTE | 2019-04-07 11:24 | PN ---
Progress Note (short form) - Note Progress Note: 53 year old poorly controlled diabetic female presents to the ED for admission for left fifth toe diabetic infection. Patent s/p angio. Refusing any amputations. PMHx: ESRD on HD (MWF), HTN, Type 2 DM (on insulin), GERD, Gastroparesis, Neuropathy, Anxiety/Depression Meds: noted ALL: NKMA ABNER: L foot: pedal pulses nonpalpable, TG warm-warm, CFT absent to fifth digit. There is fluctuance, duskiness and ischemic changes to the left fifth digit. There is a diabetic ulcer dorsolater PIPJ with fibrotic base, significant tenderness to palpation, scant purulence, surrounding erythema to the 5th MTPJ, some streaking dorsally, no soft tissue crepitus, further soft tissue destruction and wasting of the 5th digit noted. L foot XR: no subcutaneous emphysema identified Imp: 53 year old diabetic female with left fifth digit diabetic infection Evaluated labs and reviewed patient adamantly refusing amputation at this time. Thinks that if it is amputated it will cause spread to the others, discussed this is not the case rather w/o amputation risk further spreading of infection continued refusal Podiatry recc is amputation of the 5th digit and MT head resection For now will be on hold unless anything changes If continued refusal will have to treat with correction IV abx. prognosis of foot w/o amputation poor.
--- NOTE | 2019-04-07 14:32 | PN ---
Progress Note, Physician History of Present Illness: seen and examined at bedside. Pain controlled with oxycodone/tylenol. Afebrile for last 24 hours. Seen by system engineer today and patient does not want amputation. Thinks amputation will make infection spread but both I and podiatrisy explained this is not the case and increased risk if she does not amputate. Will not agree to anything until she speaks with Dr. Mcclain. Denies fever chills at this time vomiting nausea chest pain or SOB. Denies diarrhea. Having bowel movements. - Current Medication List Current Medications: Active Medications Acetaminophen (Tylenol -) 650 mg PO Q6H PRN PRN Reason: PAIN LEVEL 1 - 3 Last Admin: 04/06/19 17:19 Dose: 650 mg Baclofen (Lioresal -) 10 mg PO [facility] Last Admin: 04/06/19 21:57 Dose: 10 mg Bisacodyl (Dulcolax -) [address] [facility] Last Admin: 04/07/19 11:10 Dose: Not Given Buspirone HCl (Buspar -) [address] [facility] Last Admin: 04/07/19 11:09 Dose: 10 mg Calcium Acetate (Phoslo -) [address] [facility] Last Admin: 04/07/19 11:13 Dose: 667 mg Carvedilol (Coreg -) [address] [facility] Last Admin: 04/07/19 11:09 Dose: 25 mg Docusate Sodium (Colace -) [address] [facility] Last Admin: 04/06/19 21:57 Dose: 300 mg Famotidine (Pepcid -) [address] [facility] Last Admin: 04/07/19 11:12 Dose: 20 mg Heparin Sodium (Porcine) (Heparin -) 5,[address] [facility] Last Admin: 04/07/19 14:00 Dose: 5,000 unit Hydralazine HCl (Apresoline -) [address] [facility] Last Admin: 04/07/19 13:59 Dose: 100 mg Cefazolin Sodium 1 gm/ (Dextrose) 50 mls @ 100 mls/hr IVPB DAILY [facility] Last Admin: 04/07/19 11:08 Dose: 100 mls/hr Insulin Aspart (Novolog Vial Sliding Scale -) 1 vial SQ [facility]; Protocol Last Admin: 04/07/19 11:21 Dose: Not Given Insulin Aspart (Novolog Vial) [address] [facility] Last Admin: 04/07/19 08:34 Dose: 5 units Insulin Detemir (Levemir Vial) 30 units SQ [facility] Last Admin: 04/06/19 21:58 Dose: 30 units Insulin Detemir (Levemir Vial) [address] [facility] Last Admin: 04/07/19 11:10 Dose: Not Given Losartan Potassium (Cozaar -) [address] [facility] Last Admin: 04/07/19 11:09 Dose: 100 mg Melatonin (Melatonin) 3 mg PO [facility] Last Admin: 04/06/19 22:05 Dose: 3 mg Metoclopramide HCl (Reglan -) [address] [facility] Last Admin: 04/07/19 11:14 Dose: 10 mg Metronidazole (Flagyl -) [address] [facility] Last Admin: 04/07/19 13:59 Dose: 500 mg Nifedipine (Procardia Xl -) [address] [facility] Last Admin: 04/07/19 11:12 Dose: 90 mg Oxycodone HCl (Roxicodone -) 5 mg PO Q6H PRN PRN Reason: PAIN LEVEL 6-10 Last Admin: 04/07/19 04:12 Dose: 5 mg Pantoprazole Sodium (Protonix -) [address] [facility] Last Admin: 04/07/19 11:11 Dose: 40 mg Senna (Senna -) 2 tab PO [facility] Last Admin: 04/06/19 21:57 Dose: 2 tab - Objective Vital Signs: Vital Signs Temperature 98.2 F 04/07/19 05:08 Pulse Rate 70 04/07/19 05:08 Respiratory Rate 18 04/07/19 05:08 Blood Pressure 144/56 L 04/07/19 05:08 O2 Sat by Pulse Oximetry (%) 98 04/06/19 21:00 PE: Constitutional: Yes: Well Nourished, No Distress, Calm Eyes: Yes: EOM Intact Neck: Yes: Supple Cardiovascular: Yes: Regular Rate and Rhythm Respiratory: Yes: Other ( has crackles and occasional diffuse wheezing bilaterally) Gastrointestinal: Yes: Normal Bowel Sounds, Soft, Abdomen, Obese. No: Tenderness, Tenderness, Rebound Extremities: Yes: Other (left foot 5th toe is dressed and patient would not let me see it because system engineer already dressed it and she is too tired) Edema: No Wound/Incision: Yes: Other (left foot 5th toe is dressed and patient would not let me see it because system engineer already dressed it and she is too tired) Labs: CBC, BMP 04/07/19 07:55 04/05/19 12:45 INR, PTT INR 1.04 (0.83-1.09) 04/02/19 19:00 Impression/Plan Impression/Plan: 53 F ESRD on HD, uncontrolled DM2, HTN, HLD, likely PVD, admitted for L 5th toe osteomyelitis awaiting CTA results. Left 5th toe osteomyelitis/sepsis/fever Abx changed to ancef and flagyl by ID f/u cultures f/u CTA with run off-read still pending possible amputation if has good flow and patient agrees afebrile leukocytosis improved DM2 Continue lantus BID as prescribed and sliding scale ESRD HD monday per nephrology HTN Continue current antihypertensives Anxiety Disorder Continue home psych meds Major depressive disorder Continue buspar Smoker-active counselled on importance of quitting and she is not interested Constipation Bowel regimen with Senna, Docusate, supplement with Miralax daily as needed GERD Continue Protonix DVT PPx: Heparin SC GI PPx: PPI Visit type - Emergency Visit Emergency Visit: Yes ED Registration Date: 04/02/19 Care time: The patient presented to the Emergency Department on the above date and was hospitalized for further evaluation of their emergent condition. - New Patient This patient is new to me today: No - Critical Care Critical Care patient: No
[2019-04-07] MEDS ORDERED: ONDANSETRON 4 MG/2 ML VIAL IVPB PRN (16:00)
[2019-04-07] MEDS ORDERED: SODIUM CHLORIDE 250 ML IV PRN (20:17)
--- NOTE | 2019-04-07 20:17 | PN ---
Progress Note, Physician History of Present Illness: Pt seen and examined at bedside. She is awake and alert. She denies shortness of breath. - Current Medication List Current Medications: Active Medications Acetaminophen (Tylenol -) 650 mg PO Q6H PRN PRN Reason: PAIN LEVEL 1 - 3 Last Admin: 04/06/19 17:19 Dose: 650 mg Baclofen (Lioresal -) 10 mg PO HS [facility] Last Admin: 04/06/19 21:57 Dose: 10 mg Bisacodyl (Dulcolax -) 5 mg PO DAILY [facility] Last Admin: 04/07/19 11:10 Dose: Not Given Buspirone HCl (Buspar -) 10 mg PO BID [facility] Last Admin: 04/07/19 11:09 Dose: 10 mg Calcium Acetate (Phoslo -) 667 mg PO TIDCM [facility] Last Admin: 04/07/19 17:21 Dose: 667 mg Carvedilol (Coreg -) 25 mg PO BID [facility] Last Admin: 04/07/19 11:09 Dose: 25 mg Docusate Sodium (Colace -) 300 mg PO HS [facility] Last Admin: 04/06/19 21:57 Dose: 300 mg Famotidine (Pepcid -) 20 mg PO DAILY [facility] Last Admin: 04/07/19 11:12 Dose: 20 mg Heparin Sodium (Porcine) (Heparin -) 5,000 unit SQ TID [facility] Last Admin: 04/07/19 14:00 Dose: 5,000 unit Hydralazine HCl (Apresoline -) 100 mg PO TID [facility] Last Admin: 04/07/19 13:59 Dose: 100 mg Cefazolin Sodium 1 gm/ (Dextrose) 50 mls @ 100 mls/hr IVPB DAILY [facility] Last Admin: 04/07/19 11:08 Dose: 100 mls/hr Insulin Aspart (Novolog Vial Sliding Scale -) 1 vial SQ ACHS [facility]; Protocol Last Admin: 04/07/19 17:21 Dose: 4 units Insulin Aspart (Novolog Vial) 5 units SQ BIDWM [facility] Last Admin: 04/07/19 17:21 Dose: 5 units Insulin Detemir (Levemir Vial) 30 units SQ HS [facility] Last Admin: 04/06/19 21:58 Dose: 30 units Insulin Detemir (Levemir Vial) 35 units SQ DAILY [facility] Last Admin: 04/07/19 11:10 Dose: Not Given Losartan Potassium (Cozaar -) 100 mg PO DAILY [facility] Last Admin: 04/07/19 11:09 Dose: 100 mg Melatonin (Melatonin) 3 mg PO HS [facility] Last Admin: 04/06/19 22:05 Dose: 3 mg Metoclopramide HCl (Reglan -) 10 mg PO TIDAC [facility] Last Admin: 04/07/19 17:21 Dose: 10 mg Metronidazole (Flagyl -) 500 mg PO TID [facility] Last Admin: 04/07/19 13:59 Dose: 500 mg Nifedipine (Procardia Xl -) 90 mg PO DAILY [facility] Last Admin: 04/07/19 11:12 Dose: 90 mg Ondansetron HCl (Zofran Injection) 4 mg IVPB Q8H PRN PRN Reason: NAUSEA Oxycodone HCl (Roxicodone -) 5 mg PO Q6H PRN PRN Reason: PAIN LEVEL 6-10 Last Admin: 04/07/19 16:08 Dose: 5 mg Pantoprazole Sodium (Protonix -) 40 mg PO DAILY [facility] Last Admin: 04/07/19 11:11 Dose: 40 mg Senna (Senna -) 2 tab PO [facility] Last Admin: 04/06/19 21:57 Dose: 2 tab - Objective Vital Signs: Vital Signs Temperature 97.2 F L 04/07/19 16:15 Pulse Rate 71 04/07/19 16:15 Respiratory Rate 20 04/07/19 16:15 Blood Pressure 147/43 L 04/07/19 16:15 O2 Sat by Pulse Oximetry (%) 96 04/07/19 09:00 Constitutional: Yes: Calm Eyes: Yes: Conjunctiva Clear HENT: Yes: Atraumatic Neck: Yes: Supple Cardiovascular: Yes: S1, S2 Respiratory: Yes: CTA Bilaterally Gastrointestinal: Yes: Soft Genitourinary: Yes: WNL Musculoskeletal: Yes: WNL Edema: LLE: Trace, RLE: Trace Neurological: Yes: Oriented Psychiatric: Yes: Oriented Labs: CBC, BMP 04/07/19 07:55 04/05/19 12:45 INR, PTT INR 1.04 (0.83-1.09) 04/02/19 19:00 Problem List - Problems (1) Cellulitis of left lower extremity Code(s): L03.116 - CELLULITIS OF LEFT LOWER LIMB (2) End stage renal disease on dialysis Code(s): N18.6 - END STAGE RENAL DISEASE; Z99.2 - DEPENDENCE ON RENAL DIALYSIS Assessment/Plan Current Medications Generic Name Dose Route Start Last Admin Trade Name Freq PRN Reason Stop Dose Admin Acetaminophen 650 mg 04/03/19 09:20 04/06/19 17:19 Tylenol - PO 650 mg Q6H PRN Administration PAIN LEVEL 1 - 3 Baclofen 10 mg 04/03/19 22:00 04/06/19 21:57 Lioresal - PO 10 mg HS [facility] Administration Bisacodyl 5 mg 04/03/19 10:00 04/07/19 11:10 Dulcolax - PO Not Given DAILY [facility] Buspirone HCl 10 mg 04/03/19 10:00 04/07/19 11:09 Buspar - PO 10 mg BID [facility] Administration Calcium Acetate 667 mg 04/03/19 08:00 04/07/19 17:21 Phoslo - PO 667 mg TIDCM [facility] Administration Carvedilol 25 mg 04/03/19 10:00 04/07/19 11:09 Coreg - PO 25 mg BID [facility] Administration Docusate Sodium 300 mg 04/03/19 22:00 04/06/19 21:57 Colace - PO 300 mg HS [facility] Administration Famotidine 20 mg 04/03/19 10:00 04/07/19 11:12 Pepcid - PO 20 mg DAILY [facility] Administration Heparin Sodium (Porcine) 5,000 unit 04/03/19 06:00 04/07/19 14:00 Heparin - SQ 5,000 unit TID [facility] Administration Hydralazine HCl 100 mg 04/04/19 13:39 04/07/19 13:59 Apresoline - PO 100 mg TID [facility] Administration Cefazolin Sodium 1 gm/ 50 mls @ 100 mls/hr 04/06/19 12:00 04/07/19 11:08 Dextrose IVPB 100 mls/hr DAILY [facility] Administration Insulin Aspart 1 vial 04/03/19 07:00 04/07/19 17:21 Novolog Vial Sliding Scale - SQ 4 units ACHS [facility] Administration Protocol Insulin Aspart 5 units 04/04/19 17:30 04/07/19 17:21 Novolog Vial SQ 5 units BIDWM [facility] Administration Insulin Detemir 30 units 04/03/19 22:00 04/06/19 21:58 Levemir Vial SQ 30 units HS [facility] Administration Insulin Detemir 35 units 04/03/19 10:00 04/07/19 11:10 Levemir Vial SQ Not Given DAILY [facility] Losartan Potassium 100 mg 04/03/19 10:00 04/07/19 11:09 Cozaar - PO 100 mg DAILY [facility] Administration Melatonin 3 mg 04/03/19 22:00 04/06/19 22:05 Melatonin PO 3 mg HS [facility] Administration Metoclopramide HCl 10 mg 04/03/19 07:00 04/07/19 17:21 Reglan - PO 10 mg TIDAC [facility] Administration Metronidazole 500 mg 04/06/19 14:00 04/07/19 13:59 Flagyl - PO 500 mg TID [facility] Administration Nifedipine 90 mg 04/04/19 13:39 04/07/19 11:12 Procardia Xl - PO 90 mg DAILY [facility] Administration Ondansetron HCl 4 mg 04/07/19 16:00 Zofran Injection IVPB Q8H PRN NAUSEA Oxycodone HCl 5 mg 04/06/19 17:02 04/07/19 16:08 Roxicodone - PO 5 mg Q6H PRN Administration PAIN LEVEL 6-10 Pantoprazole Sodium 40 mg 04/03/19 10:00 04/07/19 11:11 Protonix - PO 40 mg DAILY [facility] Administration Senna 2 tab 04/03/19 22:00 04/06/19 21:57 Senna - PO 2 tab HS [facility] Administration Impression 1. ESRD 2. DM 3. HTN 4. gastroparesis 5. nausea 6. anemia 7. peripheral neuropathy 8. foot infection/cellulitis Plan - HD tomorrow - vascular follow up - follow cta - abx per ID - HD time 345 400 abf 2000 heparin bolus 500 maintenance - cont wound care Dr Arredondo
[2019-04-07] MEDS ORDERED: INSULIN (NOVOLOG) ASPART 100 UNITS/ML 10ML VIAL ONE (21:06)
[2019-04-07] MEDS: DOCUSATE SODIUM 100 MG CAPSULE (FP) PO SCH (21:26)
[2019-04-07] MEDS: SENNOSIDES 8.6MG TABLET (FP) PO SCH (21:27)
[2019-04-07] MEDS: BACLOFEN 10 MG TABLET (FP) PO SCH (21:27)
[2019-04-07] MEDS: MELATONIN 1 MG TABLET PO SCH (21:27)
[2019-04-08] MEDS: ACETAMINOPHEN 325 MG TABLET (FP) PO PRN ×2 (00:55→09:40)
[2019-04-08] MEDS: oxyCODONE HCL 5 MG TABLET PO PRN ×2 (00:58→09:39)
[2019-04-08] MEDS: INSULIN SLIDING SCALE (NOVOLOG) 1 VIAL SQ SCH ×4 (06:08→22:46)
[2019-04-08] MEDS: HEPARIN NA (PORCINE) 5,000 UNITS/ML 1ML VIAL SQ SCH ×3 (06:08→22:46)
[2019-04-08] MEDS: hydrALAZINE HCL 50 MG TABLET (FP) PO SCH ×3 (06:08→22:45)
[2019-04-08] MEDS: metroNIDAZOLE 250 MG TABLET PO SCH ×3 (06:08→22:45)
[2019-04-08] MEDS: METOCLOPRAMIDE HCL 10 MG TABLET (FP) PO SCH ×3 (06:09→17:33)
[2019-04-08] MEDS: CALCIUM ACETATE 667 MG CAPSULE (FP) PO SCH ×3 (09:13→17:33)
[2019-04-08] MEDS: INSULIN (LEVEMIR) 100 UNITS/ML UNITS SQ SCH ×2 (09:20→22:47)
[2019-04-08] MEDS: INSULIN (NOVOLOG) ASPART 100 UNITS/ML 10ML VIAL SQ SCH ×2 (09:20→17:39)
[2019-04-08] MEDS ORDERED: EPOETIN ALFA 2,000 UNIT/1 ML VIAL IVPUSH ONE (11:00)
[2019-04-08] MEDS ORDERED: HEPARIN NA (PORCINE) 5,000 UNITS/ML 1ML VIAL IVPUSH ONE (11:00)
[2019-04-08 11:07] LABS: HEMOGLOBIN 8.6 GM/dL (10.7-15.3); MCH 31.8 pg (25.7-33.7); MCHC 33.3 g/dl (32.0-36.0); MEAN CELL VOLUME 95.6 fl (80-96); MEAN PLT VOLUME 9.1 fl (7.5-11.1); PLATELET COUNT 382 K/MM3 (134-434); RBC 2.72 M/mm3 (3.60-5.2); WHITE BLOOD COUNT 8.6 K/mm3 (4.0-10.0)
[2019-04-08] MEDS ORDERED: ceFAZolin SODIUM 1 GM VIAL ONE (12:14)
[2019-04-08] MEDS ORDERED: DEXTROSE 5%-WATER - 50 ML IVPB ONE (12:14)
[2019-04-08 12:40] LABS: ALBUMIN 2.7 g/dl (3.4-5.0); BILIRUBIN,TOTAL 0.2 mg/dL (0.2-1); CALCIUM 8.6 mg/dL (8.5-10.1); PHOSPHOROUS 7.2 mg/dL (2.5-4.9); POTASSIUM 3.9 mmol/L (3.5-5.1); TOT PROT 6.9 g/dl (6.4-8.2)
[2019-04-08 12:45] LABS: CREATININE 9.6 mg/dL (0.55-1.3)
[2019-04-08] MEDS: HEPARIN NA (PORCINE) 5,000 UNITS/ML 1ML VIAL IVPUSH SCH ×2 (12:48→12:49)
[2019-04-08] MEDS: CEFAZOLIN 1 GM in DEXTROSE 5%-WATER - 50 ML IVPB SCH (12:49)
--- NOTE | 2019-04-08 13:13 | PN ---
Progress Note (short form) - Note Progress Note: Podiatry Brief Note: 53 year old diabetic female with left 5th digit ischemic changes with diabetic foot infection. I have advised amputation of the left fifth digit, assuming she has normal CTA. Discussed case with Dr. Mcclain. Patient is refusing surgery until she speaks with Dr. Mcclain. Assuming she is amenable to surgery, we can plan for tomorrow. Will be on standby if the patient continues to refuse. Nuris Stroud DPM
[2019-04-08] MEDS: PANTOPRAZOLE 40 MG TABLET (FP) PO SCH (14:22)
[2019-04-08] MEDS: BISACODYL 5 MG TABLET.DR (FP) PO SCH (14:22)
[2019-04-08] MEDS: FAMOTIDINE 20 MG TABLET PO SCH (14:23)
[2019-04-08] MEDS: NIFEdipine E.R. 90 MG TABLET (FP) PO SCH (14:24)
[2019-04-08] MEDS ORDERED: PT OWN MED DRAWER 7, Y5N ONE ×2 (14:29→20:23)
[2019-04-08] MEDS: busPIRone HCL 10 MG TABLET (FP) PO SCH ×2 (14:30→22:47)
[2019-04-08] MEDS: CARVEDILOL 25 MG TABLET (FP) PO SCH ×2 (14:44→22:45)
[2019-04-08] MEDS: LOSARTAN POTASSIUM 50 MG TABLET (FP) PO SCH (14:46)
[2019-04-08] MEDS ORDERED: LORazepam 0.5 MG TABLET PO ONE (15:23)
--- NOTE | 2019-04-08 16:20 | PN ---
Progress Note, Physician History of Present Illness: Pt seen and examined at bedside. She is tolerating HD. She denies shortness of breath. - Current Medication List Current Medications: Active Medications Acetaminophen (Tylenol -) 650 mg PO Q6H PRN PRN Reason: PAIN LEVEL 1 - 3 Last Admin: 04/08/19 09:40 Dose: 650 mg Baclofen (Lioresal -) 10 mg PO [facility] Last Admin: 04/07/19 21:27 Dose: 10 mg Bisacodyl (Dulcolax -) 5 mg PO DAILY [facility] Last Admin: 04/08/19 14:22 Dose: 5 mg Buspirone HCl (Buspar -) 10 mg PO BID [facility] Last Admin: 04/08/19 14:30 Dose: 10 mg Calcium Acetate (Phoslo -) 667 mg PO TIDCM [facility] Last Admin: 04/08/19 14:20 Dose: 667 mg Carvedilol (Coreg -) 25 mg PO BID [facility] Last Admin: 04/08/19 14:44 Dose: 25 mg Docusate Sodium (Colace -) 300 mg PO [facility] Last Admin: 04/07/19 21:26 Dose: 300 mg Famotidine (Pepcid -) 20 mg PO DAILY [facility] Last Admin: 04/08/19 14:23 Dose: 20 mg Heparin Sodium (Porcine) (Heparin -) 5,000 unit SQ TID [facility] Last Admin: 04/08/19 15:07 Dose: Not Given Hydralazine HCl (Apresoline -) 100 mg PO TID [facility] Last Admin: 04/08/19 14:21 Dose: 100 mg Cefazolin Sodium 1 gm/ (Dextrose) 50 mls @ 100 mls/hr IVPB DAILY [facility] Last Admin: 04/08/19 12:49 Dose: 100 mls/hr Sodium Chloride (Normal Saline -) 250 mls @ 3,000 mls/hr IV PRN PRN PRN Reason: Hypotension during Dialysis Stop: 04/08/19 20:17 Insulin Aspart (Novolog Vial Sliding Scale -) 1 vial SQ [facility]; Protocol Last Admin: 04/08/19 12:21 Dose: Not Given Insulin Aspart (Novolog Vial) 5 units SQ BIDWM [facility] Last Admin: 04/08/19 09:20 Dose: 5 units Insulin Detemir (Levemir Vial) 30 units SQ [facility] Last Admin: 04/07/19 21:26 Dose: 30 units Insulin Detemir (Levemir Vial) 35 units SQ DAILY [facility] Last Admin: 04/08/19 09:20 Dose: 35 units Losartan Potassium (Cozaar -) 100 mg PO DAILY [facility] Last Admin: 04/08/19 14:46 Dose: 100 mg Melatonin (Melatonin) 3 mg PO HS [facility] Last Admin: 04/07/19 21:27 Dose: 3 mg Metoclopramide HCl (Reglan -) 10 mg PO TIDAC [facility] Last Admin: 04/08/19 14:23 Dose: 10 mg Metronidazole (Flagyl -) 500 mg PO TID [facility] Last Admin: 04/08/19 14:20 Dose: 500 mg Nifedipine (Procardia Xl -) 90 mg PO DAILY [facility] Last Admin: 04/08/19 14:24 Dose: 90 mg Ondansetron HCl (Zofran Injection) 4 mg IVPB Q8H PRN PRN Reason: NAUSEA Oxycodone HCl (Roxicodone -) 5 mg PO Q6H PRN PRN Reason: PAIN LEVEL 6-10 Last Admin: 04/08/19 00:58 Dose: 5 mg Pantoprazole Sodium (Protonix -) 40 mg PO DAILY [facility] Last Admin: 04/08/19 14:22 Dose: 40 mg Senna (Senna -) 2 tab PO [facility] Last Admin: 04/07/19 21:27 Dose: 2 tab - Objective Vital Signs: Vital Signs Temperature 97.5 F L 04/08/19 14:30 Pulse Rate 74 04/08/19 14:30 Respiratory Rate 18 04/08/19 14:30 Blood Pressure 175/67 H 04/08/19 14:30 O2 Sat by Pulse Oximetry (%) 97 04/08/19 08:37 Constitutional: Yes: Calm Eyes: Yes: Conjunctiva Clear HENT: Yes: Atraumatic Neck: Yes: Supple Cardiovascular: Yes: S1, S2 Respiratory: Yes: CTA Bilaterally Gastrointestinal: Yes: Soft Genitourinary: Yes: WNL Extremities: Yes: WNL Edema: No Neurological: Yes: Oriented Labs: CBC, BMP 04/08/19 10:00 04/08/19 10:00 INR, PTT INR 1.04 (0.83-1.09) 04/02/19 19:00 Problem List - Problems (1) Cellulitis of left lower extremity Code(s): L03.116 - CELLULITIS OF LEFT LOWER LIMB (2) End stage renal disease on dialysis Code(s): N18.6 - END STAGE RENAL DISEASE; Z99.2 - DEPENDENCE ON RENAL DIALYSIS Assessment/Plan Current Medications Generic Name Dose Route Start Last Admin Trade Name Freq PRN Reason Stop Dose Admin Acetaminophen 650 mg 04/03/19 09:20 04/08/19 09:40 Tylenol - PO 650 mg Q6H PRN Administration PAIN LEVEL 1 - 3 Baclofen 10 mg 04/03/19 22:00 04/07/19 21:27 Lioresal - PO 10 mg HS [facility] Administration Bisacodyl 5 mg 04/03/19 10:00 04/08/19 14:22 Dulcolax - PO 5 mg DAILY [facility] Administration Buspirone HCl 10 mg 04/03/19 10:00 04/08/19 14:30 Buspar - PO 10 mg BID [facility] Administration Calcium Acetate 667 mg 04/03/19 08:00 04/08/19 14:20 Phoslo - PO 667 mg TIDCM [facility] Administration Carvedilol 25 mg 04/03/19 10:00 04/08/19 14:44 Coreg - PO 25 mg BID [facility] Administration Docusate Sodium 300 mg 04/03/19 22:00 04/07/19 21:26 Colace - PO 300 mg HS [facility] Administration Famotidine 20 mg 04/03/19 10:00 04/08/19 14:23 Pepcid - PO 20 mg DAILY [facility] Administration Heparin Sodium (Porcine) 5,000 unit 04/03/19 06:00 04/08/19 15:07 Heparin - SQ Not Given TID [facility] Hydralazine HCl 100 mg 04/04/19 13:39 04/08/19 14:21 Apresoline - PO 100 mg TID [facility] Administration Cefazolin Sodium 1 gm/ 50 mls @ 100 mls/hr 04/06/19 12:00 04/08/19 12:49 Dextrose IVPB 100 mls/hr DAILY [facility] Administration Sodium Chloride 250 mls @ 3,000 mls/hr 04/07/19 20:17 Normal Saline - IV 04/08/19 20:17 PRN PRN Hypotension during Dialysis Insulin Aspart 1 vial 04/03/19 07:00 04/08/19 12:21 Novolog Vial Sliding Scale - SQ Not Given ACHS [facility] Protocol Insulin Aspart 5 units 04/04/19 17:30 04/08/19 09:20 Novolog Vial SQ 5 units BIDWM [facility] Administration Insulin Detemir 30 units 04/03/19 22:00 04/07/19 21:26 Levemir Vial SQ 30 units HS [facility] Administration Insulin Detemir 35 units 04/03/19 10:00 04/08/19 09:20 Levemir Vial SQ 35 units DAILY [facility] Administration Losartan Potassium 100 mg 04/03/19 10:00 04/08/19 14:46 Cozaar - PO 100 mg DAILY [facility] Administration Melatonin 3 mg 04/03/19 22:00 04/07/19 21:27 Melatonin PO 3 mg HS [facility] Administration Metoclopramide HCl 10 mg 04/03/19 07:00 04/08/19 14:23 Reglan - PO 10 mg TIDAC [facility] Administration Metronidazole 500 mg 04/06/19 14:00 04/08/19 14:20 Flagyl - PO 500 mg TID [facility] Administration Nifedipine 90 mg 04/04/19 13:39 04/08/19 14:24 Procardia Xl - PO 90 mg DAILY [facility] Administration Ondansetron HCl 4 mg 04/07/19 16:00 Zofran Injection IVPB Q8H PRN NAUSEA Oxycodone HCl 5 mg 04/06/19 17:02 04/08/19 00:58 Roxicodone - PO 5 mg Q6H PRN Administration PAIN LEVEL 6-10 Pantoprazole Sodium 40 mg 04/03/19 10:00 04/08/19 14:22 Protonix - PO 40 mg DAILY [facility] Administration Senna 2 tab 04/03/19 22:00 04/07/19 21:27 Senna - PO 2 tab HS [facility] Administration Impression 1. ESRD 2. DM 3. HTN 4. gastroparesis 5. nausea 6. anemia 7. peripheral neuropathy 8. foot infection/cellulitis Plan - HD today - vascular follow up for cta - abx per ID - HD time 345 400 abf 2000 heparin bolus 500 maintenance - cont wound care Dr Arredondo
--- NOTE | 2019-04-08 17:25 | PN ---
Progress Note (short form) - Note Progress Note: Vascular Surgery Pt seen and examined today. DRessing changed. Pt has gangrene of left fifth toe. Pt has a palpable DP pulse. Pt has triphasic DP and PT signals in foot. Pt has DP and PT runoff on CTA. Spoke to pt and brother at length. Best course of action is to do amputation of fifth toe, before the infection spreads to the rest of the foot. Brother understands. Pt understands. Will think about it. Talon Mcclain DO
[2019-04-08] MEDS: MELATONIN 1 MG TABLET PO SCH (22:45)
[2019-04-08] MEDS: DOCUSATE SODIUM 100 MG CAPSULE (FP) PO SCH (22:45)
[2019-04-08] MEDS: BACLOFEN 10 MG TABLET (FP) PO SCH (22:45)
[2019-04-08] MEDS: SENNOSIDES 8.6MG TABLET (FP) PO SCH (22:46)
[2019-04-09] MEDS: ACETAMINOPHEN 325 MG TABLET (FP) PO PRN ×3 (02:31→23:01)
[2019-04-09] MEDS: metroNIDAZOLE 250 MG TABLET PO SCH ×3 (06:35→21:44)
[2019-04-09] MEDS: hydrALAZINE HCL 50 MG TABLET (FP) PO SCH ×3 (06:35→21:44)
[2019-04-09] MEDS: HEPARIN NA (PORCINE) 5,000 UNITS/ML 1ML VIAL SQ SCH ×2 (06:35→21:45)
[2019-04-09] MEDS: INSULIN SLIDING SCALE (NOVOLOG) 1 VIAL SQ SCH ×4 (06:36→21:45)
[2019-04-09] MEDS: METOCLOPRAMIDE HCL 10 MG TABLET (FP) PO SCH ×3 (06:36→16:02)
--- NOTE | 2019-04-09 07:15 | PN ---
Progress Note, Physician History of Present Illness: Seen and examined; no new complaints. Stable symptoms without any new issues. she has onging pain and was tearful, refusing toe amputation until she spoke with Dr. henley in Vascular. Brother came and nurse messaged me threatening to call an overhead condition if he was not promptly updated. No new issues or complaints noted. She is stable. 10 sys ROS done and negative aside from HPI - Current Medication List Current Medications: Active Medications Acetaminophen (Tylenol -) 650 mg PO Q6H PRN PRN Reason: PAIN LEVEL 1 - 3 Last Admin: 04/09/19 02:31 Dose: 650 mg Baclofen (Lioresal -) 10 mg PO HS [facility] Last Admin: 04/08/19 22:45 Dose: 10 mg Bisacodyl (Dulcolax -) 5 mg PO DAILY [facility] Last Admin: 04/08/19 14:22 Dose: 5 mg Buspirone HCl (Buspar -) 10 mg PO BID [facility] Last Admin: 04/08/19 22:47 Dose: 10 mg Calcium Acetate (Phoslo -) 667 mg PO TIDCM [facility] Last Admin: 04/08/19 17:33 Dose: 667 mg Carvedilol (Coreg -) 25 mg PO BID [facility] Last Admin: 04/08/19 22:45 Dose: 25 mg Docusate Sodium (Colace -) 300 mg PO HS [facility] Last Admin: 04/08/19 22:45 Dose: 300 mg Famotidine (Pepcid -) 20 mg PO DAILY [facility] Last Admin: 04/08/19 14:23 Dose: 20 mg Heparin Sodium (Porcine) (Heparin -) 5,000 unit SQ TID [facility] Last Admin: 04/09/19 06:35 Dose: Not Given Hydralazine HCl (Apresoline -) 100 mg PO TID [facility] Last Admin: 04/09/19 06:35 Dose: Not Given Cefazolin Sodium 1 gm/ (Dextrose) 50 mls @ 100 mls/hr IVPB DAILY [facility] Last Admin: 04/08/19 12:49 Dose: 100 mls/hr Insulin Aspart (Novolog Vial Sliding Scale -) 1 vial SQ ACHS [facility]; Protocol Last Admin: 04/09/19 06:36 Dose: Not Given Insulin Aspart (Novolog Vial) 5 units SQ BIDWM [facility] Last Admin: 04/08/19 17:39 Dose: 5 units Insulin Detemir (Levemir Vial) 30 units SQ HS [facility] Last Admin: 04/08/19 22:47 Dose: 30 units Insulin Detemir (Levemir Vial) 35 units SQ DAILY [facility] Last Admin: 04/08/19 09:20 Dose: 35 units Losartan Potassium (Cozaar -) 100 mg PO DAILY [facility] Last Admin: 04/08/19 14:46 Dose: 100 mg Melatonin (Melatonin) 3 mg PO HS [facility] Last Admin: 04/08/19 22:45 Dose: 3 mg Metoclopramide HCl (Reglan -) 10 mg PO TIDAC [facility] Last Admin: 04/09/19 06:36 Dose: Not Given Metronidazole (Flagyl -) 500 mg PO TID [facility] Last Admin: 04/09/19 06:35 Dose: Not Given Nifedipine (Procardia Xl -) 90 mg PO DAILY [facility] Last Admin: 04/08/19 14:24 Dose: 90 mg Ondansetron HCl (Zofran Injection) 4 mg IVPB Q8H PRN PRN Reason: NAUSEA Oxycodone HCl (Roxicodone -) 5 mg PO Q6H PRN PRN Reason: PAIN LEVEL 6-10 Last Admin: 04/08/19 00:58 Dose: 5 mg Pantoprazole Sodium (Protonix -) 40 mg PO DAILY [facility] Last Admin: 04/08/19 14:22 Dose: 40 mg Senna (Senna -) 2 tab PO [facility] Last Admin: 04/08/19 22:46 Dose: 2 tab - Objective Vital Signs: Vital Signs Temperature 98.5 F 04/09/19 06:04 Pulse Rate 72 04/09/19 06:04 Respiratory Rate 20 04/09/19 06:04 Blood Pressure 143/65 04/09/19 06:04 O2 Sat by Pulse Oximetry (%) 97 04/08/19 21:00 Constitutional: Yes: Well Nourished, No Distress, Anxious, Mild Distress Eyes: Yes: WNL, Conjunctiva Clear, EOM Intact HENT: Yes: WNL, Atraumatic, Normocephalic Neck: Yes: WNL, Supple, Trachea Midline Cardiovascular: Yes: WNL, Regular Rate and Rhythm Respiratory: Yes: WNL, Regular, CTA Bilaterally Gastrointestinal: Yes: WNL, Normal Bowel Sounds, Soft, Abdomen, Obese ...Rectal Exam: Yes: Deferred Genitourinary: No: CVA Tenderness - Left, CVA Tenderness - Right, Musculoskeletal: Yes: WNL, Joint Swelling Extremities: Yes: Deformity, Delayed Capillary Refill, Other (L 5th digit with persisting changes) Peripheral Pulses: Left Radial: 2+, Right Radial: 2+, Left Doralis Pedis: 1+, Right Dorsalis Pedis: 1+ Integumentary: Yes: WNL Neurological: Yes: WNL, Alert, Oriented, Cran Nerves II-XII Intact ...Motor Strength: WNL Psychiatric: Yes: WNL, Alert, Oriented Labs: CBC, BMP 04/08/19 10:00 04/08/19 10:00 INR, PTT INR 1.04 (0.83-1.09) 04/02/19 19:00 Impression/Plan Impression/Plan: Presents with 5th digit (left sided) infection with purulent drainage -DM foot ulcer (5th toe likely needs amputation; patient is considering procedure and is demamndiong to speak with vascular and her brotheer. We have already updated them twice. Anxiety is playing a role in this. Johny Medina following. She is concerned about losing the whole foot and I assured her that following her specioalist's instructions would be the most vital in preventing her from doing do. -PAD (FU CTA to fully elucidate procedural approach) -ESRD on HD -IDDM w/ gastroparesis and diabetic neuropathy -Acute aniety/likely adjustment disorder with chronic underlying psychaitric issues -Hx HTN, uncontrolled, improved -Chronic anemia (XF per guidelines, no further issues Visit type - Emergency Visit Emergency Visit: Yes ED Registration Date: 04/02/19 Care time: The patient presented to the Emergency Department on the above date and was hospitalized for further evaluation of their emergent condition. - New Patient This patient is new to me today: Yes Date on this admission: 04/09/19 - Critical Care Critical Care patient: No
[2019-04-09] MEDS: INSULIN (NOVOLOG) ASPART 100 UNITS/ML 10ML VIAL SQ SCH ×2 (08:00→16:39)
[2019-04-09] MEDS: CALCIUM ACETATE 667 MG CAPSULE (FP) PO SCH ×3 (08:01→16:40)
[2019-04-09] MEDS ORDERED: DEXTROSE 5%-WATER - 50 ML IVPB ONE (08:33)
[2019-04-09] MEDS ORDERED: ceFAZolin SODIUM 1 GM VIAL ONE (08:33)
[2019-04-09 11:09] LABS: EOS % 2.4 % (0-4.5); HEMATOCRIT 29.2 % (32.4-45.2); HEMOGLOBIN 9.9 GM/dL (10.7-15.3); LYMPH % 18.8 % (8-40); MCH 32.1 pg (25.7-33.7); MCHC 33.8 g/dl (32.0-36.0); MEAN PLT VOLUME 8.9 fl (7.5-11.1); MONO % 9.8 % (3.8-10.2); PLATELET COUNT 452 K/MM3 (134-434); RBC 3.07 M/mm3 (3.60-5.2); RDW 14.2 % (11.6-15.6); WHITE BLOOD COUNT 10.6 K/mm3 (4.0-10.0)
[2019-04-09] MEDS: CARVEDILOL 25 MG TABLET (FP) PO SCH ×2 (11:25→21:44)
[2019-04-09] MEDS: INSULIN (LEVEMIR) 100 UNITS/ML UNITS SQ SCH ×2 (11:25→21:46)
[2019-04-09] MEDS: busPIRone HCL 10 MG TABLET (FP) PO SCH ×2 (11:25→21:44)
[2019-04-09] MEDS: CEFAZOLIN 1 GM in DEXTROSE 5%-WATER - 50 ML IVPB SCH (11:25)
[2019-04-09 11:42] LABS: CALCIUM 8.9 mg/dL (8.5-10.1); POTASSIUM 4.2 mmol/L (3.5-5.1)
[2019-04-09 12:22] VITALS: BMI 30.4
[2019-04-09] MEDS ORDERED: MIDAZOLAM HCL 2 MG/2 ML SINGLE DOSE VIAL ONE ×2 (13:46→14:09)
[2019-04-09] MEDS ORDERED: PROPOFOL 20 ML ONE (13:46)
[2019-04-09] MEDS ORDERED: SUCCINYLCHOLINE CHLORIDE 200 MG/10 ML SYRINGE ONE (13:46)
[2019-04-09] MEDS ORDERED: LIDOCAINE HCL 1%, 10 MG/ML (20ML VIAL) INF ONE (13:58)
--- NOTE | 2019-04-09 14:03 | PN ---
Progress Note (short form) - Note Progress Note: Hospitalist Medicine Did not want to be disturbed this AM. Resting in bed. Procedure at noon (L 5th digit amputation; gangrene with cellulitis; osteomyelitis left fifth digit) Vitals 04/09/19 08:47 Temperature 97.7 F Respiratory 20 Rate Blood Pressure 176/78 H Blood Pressure 121 Mean Physical Exam refused Laboratory Tests 04/09/19 04/09/19 04/09/19 10:05 10:05 11:27 WBC 10.6 H Hgb 9.9 L Hct 29.2 L Plt Count 452 H Sodium 140 Potassium 4.2 Chloride 98 Carbon Dioxide 30 BUN 40.0 H Creatinine 6.0 H POC Glucometer 94 Microbiology 04/02/19 20:00 Blood - Peripheral Venous Blood Culture - Final NO GROWTH AFTER 5 DAYS INCUBATION 04/02/19 20:00 Blood - Peripheral Venous Blood Culture - Final NO GROWTH AFTER 5 DAYS INCUBATION 04/02/19 19:20 Toe - Left Fifth Gram Stain - Final 04/02/19 19:20 Toe - Left Fifth Wound Culture - Final Staphylococcus Aureus Strep Agalactiae Group B 04/06/19 14:39 Blood - Peripheral Venous Blood Culture - Preliminary NO GROWTH OBTAINED AFTER 72 HOURS, INCUBATION TO CONTINUE FOR 2 DAYS. 04/06/19 14:35 Blood - Peripheral Venous Blood Culture - Preliminary NO GROWTH OBTAINED AFTER 72 HOURS, INCUBATION TO CONTINUE FOR 2 DAYS. Imaging 04/02/19 CXR: no active pulm dz . cardiomegaly, lungs well aerated 04/02/19: L foot XR: no subcutnaeous emphysema, no definite signs of osteomyelitis 04/02/19: MRI LE w/o contrast: cellulitis of the foot. no soft tissue abscess. osteo of 5th toe involving the phalanges w suspicion of osteo of head of fifth metatarsal 04/05/19: CTA w/ runoff: infrapopliteal dz. multifocal high grade stenoses vs short segmental occlusions in the right TP trunk, APPLIED PS[employer]CHOLOGY CHAIR and peroneal artery w reconstitution of flow in plantar artery. predominant flow to the R foot via the JOSEFINA with patent dp artery. occluded L peroneal artery. multifocal dz in L [employer] CH[employer] with multifocal high grade stenoses. patent L josefina with focal high grade stenosis in range of 70-90% of the distal JOSEFINA with patent proximal dp artery which occludes at the level of the midfoot. focal mid R SFA moderate stenosis in the range of 50-70%. nonobstructing right renal stones. prominent CBD 7mm; nonspecific. bilateral adrenal gland hyperplasia. 1.6cm right and 2.5cm left adnexal cyst. Assessment/Plan 53 year old woman with a history of ESRD, HTN, type 2 DM, GERD, gastroparesis, neuropathy, anxiety, depression who presented to the ED with left foot pain. Found to have osteomyelitis of the L fifth toe. s/p amputation- PO day 0. #L 5th toe osteomyelitis, s/p amputation- PO Day 0 -toe gram stain, cx: staph aureus, strep B - on cefazolin (04/06), flagyl (04/06 ) -f/u blood cx (-) thus far -c/w wound care -on roxicodone 5mg PO q6h PRN, tylenol PRN for pain -cont bowel regimen; senna, colace, dulcolax -ID on board: Dr. Downing -Podiatry: Dr. Stroud -Vascular: Dr. Mcclain #ESRD on HD -for HD tomorrow (04/10) -c/w phoslo -Nephro: Dr. Arredondo #IDDM w/ gastroparesis, diabetic neuropathy -c/w levemir 30u sq HS, 35u in AM -ISS, BGM ACHS -maintain controlled BGM < 180 to aid wound healing -c/w reglan #Anxiety -can give small dose of ativan PO when needed -c/w buspar -on melatonin #HTN -c/w coreg, hydralazine, procardia, losartan #PPX DVT: on hep 5k sq tid GI: on protonix #F/E/N no IVF at this time continue to follow lytes renal diet #Dispo monitoring on med-surg on IV abx for HD tomorrow <Hermelnida Radford - Last Filed: 04/09/19 17:05> - Note Progress Note: Seen and examined; please refer to resident note for further historical information. I agree with the aforementioned assessment and plan and historical information aside from as supplemented by myself. Independently verified all peña exam findings and diagnostics. I discussed the case at length with the resident and agree with the plan as outlined. Sleepy; seen postop. Limited ROS secondarily. 10 sys ROS done and negative aside from HPI VS, labs, imaging reviewed NAD AAO resting in bed NC AT EOMI PERRLA HR wnl, s1/2+ NT ND +BS CN2-12 wnl, no fnd Dressing cdi A/P: POD #0 Left foot 5th digit amputation -DM ulcer with underlying OM/cellulitis and gangrene (s/p / amputation 5th digit) - ESRD on HD - HTN (resume meds when appropriate postop) - Type 2 DM; Continue Levemir, Novolog with SSI. Suboptimal coverage and this contributed to her presenting illness. Continue to monitor fsg. - Diabetic peripheral neuropathy. Can uptitrate meds as needed given persisting neuropathic symptoms. - Diabetic gastroparesis - GERD (determiine why on H2 jarret and PPI prior to DC?) - Depression with anxiety - Anemia secondary to chronic illness/CKD Full Code <Jovani Hernandez - Last Filed: 04/13/19 04:31>
--- NOTE | 2019-04-09 15:04 | OP ---
Operative Note - Note: Operative Date: 04/09/19 Pre-Operative Diagnosis: gangrene with cellulitis; osteomyelitis left fifth digit Operation: left fifth digit amputation Findings: see operative note Post-Operative Diagnosis: Same as Pre-op Surgeon: Jose Maria Stroud Glass Setter: Karishma Goetz MD Anesthesia: Local, MAC Specimens Removed: left fifth digit bone and soft tissue Estimated Blood Loss (mls): 25 Operative Report Dictated: Yes
[2019-04-09] MEDS ORDERED: ONDANSETRON 4 MG/2 ML VIAL IVPB PRN (15:09)
[2019-04-09] MEDS: NIFEdipine E.R. 90 MG TABLET (FP) PO SCH ×2 (16:01→16:25)
[2019-04-09] MEDS: LOSARTAN POTASSIUM 50 MG TABLET (FP) PO SCH ×2 (16:01→16:25)
[2019-04-09] MEDS: PANTOPRAZOLE 40 MG TABLET (FP) PO SCH ×2 (16:01→16:26)
[2019-04-09] MEDS ORDERED: SODIUM CHLORIDE 250 ML IV PRN (16:03)
--- NOTE | 2019-04-09 16:03 | PN ---
Progress Note, Physician History of Present Illness: Pt seen and examined at bedside. She denies shortness of breath. She is s/p left fifth digit amputation. - Current Medication List Current Medications: Active Medications Acetaminophen (Tylenol -) 650 mg PO Q6H PRN PRN Reason: PAIN LEVEL 1 - 3 Baclofen (Lioresal -) 10 mg PO HS [facility] Bisacodyl (Dulcolax -) 5 mg PO DAILY [facility] Buspirone HCl (Buspar -) 10 mg PO BID [facility] Calcium Acetate (Phoslo -) 667 mg PO TIDCM [facility] Carvedilol (Coreg -) 25 mg PO BID [facility] Docusate Sodium (Colace -) 300 mg PO HS [facility] Famotidine (Pepcid -) 20 mg PO DAILY [facility] Heparin Sodium (Porcine) (Heparin -) 5,000 unit SQ TID [facility] Hydralazine HCl (Apresoline -) 100 mg PO TID [facility] Cefazolin Sodium 1 gm/ (Dextrose) 50 mls @ 100 mls/hr IVPB DAILY [facility] Insulin Aspart (Novolog Vial) 5 units SQ BIDWM [facility] Insulin Aspart (Novolog Vial Sliding Scale -) 1 vial SQ ACHS [facility]; Protocol Insulin Detemir (Levemir Vial) 30 units SQ HS [facility] Insulin Detemir (Levemir Vial) 35 units SQ 0700 [facility] Losartan Potassium (Cozaar -) 100 mg PO DAILY [facility] Melatonin (Melatonin) 3 mg PO HS [facility] Metoclopramide HCl (Reglan -) 10 mg PO TIDAC [facility] Metronidazole (Flagyl -) 500 mg PO TID [facility] Nifedipine (Procardia Xl -) 90 mg PO DAILY [facility] Ondansetron HCl (Zofran Injection) 4 mg IVPB Q8H PRN PRN Reason: NAUSEA Oxycodone HCl (Roxicodone -) 5 mg PO Q6H PRN PRN Reason: PAIN LEVEL 6-10 Pantoprazole Sodium (Protonix -) 40 mg PO DAILY [facility] Senna (Senna -) 2 tab PO HS [facility] - Objective Vital Signs: Vital Signs Temperature 97.8 F 04/09/19 15:45 Pulse Rate 77 04/09/19 15:45 Respiratory Rate 18 04/09/19 15:45 Blood Pressure 161/70 04/09/19 15:45 O2 Sat by Pulse Oximetry (%) 96 04/09/19 15:45 Constitutional: Yes: Calm Eyes: Yes: Conjunctiva Clear HENT: Yes: Atraumatic Cardiovascular: Yes: S1, S2 Respiratory: Yes: CTA Bilaterally Gastrointestinal: Yes: Soft Genitourinary: Yes: WNL Edema: No Wound/Incision: Yes: Dressing Dry and Intact Labs: CBC, BMP 04/09/19 10:05 04/09/19 10:05 INR, PTT INR 1.04 (0.83-1.09) 04/02/19 19:00 Problem List - Problems (1) Cellulitis of left lower extremity Code(s): L03.116 - CELLULITIS OF LEFT LOWER LIMB (2) End stage renal disease on dialysis Code(s): N18.6 - END STAGE RENAL DISEASE; Z99.2 - DEPENDENCE ON RENAL DIALYSIS Assessment/Plan Current Medications Generic Name Dose Route Start Last Admin Trade Name Freq PRN Reason Stop Dose Admin Acetaminophen 650 mg 04/09/19 15:09 Tylenol - PO Q6H PRN PAIN LEVEL 1 - 3 Baclofen 10 mg 04/09/19 22:00 Lioresal - PO HS [facility] Bisacodyl 5 mg 04/10/19 10:00 Dulcolax - PO DAILY [facility] Buspirone HCl 10 mg 04/09/19 22:00 Buspar - PO BID [facility] Calcium Acetate 667 mg 04/09/19 17:30 Phoslo - PO TIDCM [facility] Carvedilol 25 mg 04/09/19 22:00 Coreg - PO BID [facility] Docusate Sodium 300 mg 04/09/19 22:00 Colace - PO HS [facility] Famotidine 20 mg 04/10/19 10:00 Pepcid - PO DAILY [facility] Heparin Sodium (Porcine) 5,000 unit 04/09/19 22:00 Heparin - SQ TID [facility] Hydralazine HCl 100 mg 04/09/19 22:00 Apresoline - PO TID [facility] Cefazolin Sodium 1 gm/ 50 mls @ 100 mls/hr 04/10/19 10:00 Dextrose IVPB DAILY [facility] Insulin Aspart 5 units 04/09/19 17:30 Novolog Vial SQ BIDWM [facility] Insulin Aspart 1 vial 04/09/19 16:30 Novolog Vial Sliding Scale - SQ ACHS [facility] Protocol Insulin Detemir 30 units 04/09/19 22:00 Levemir Vial SQ HS [facility] Insulin Detemir 35 units 04/10/19 07:00 Levemir Vial SQ 0700 [facility] Losartan Potassium 100 mg 04/09/19 16:00 Cozaar - PO DAILY [facility] Melatonin 3 mg 04/09/19 22:00 Melatonin PO HS [facility] Metoclopramide HCl 10 mg 04/09/19 16:30 Reglan - PO TIDAC [facility] Metronidazole 500 mg 04/09/19 22:00 Flagyl - PO TID [facility] Nifedipine 90 mg 04/09/19 16:00 Procardia Xl - PO DAILY [facility] Ondansetron HCl 4 mg 04/09/19 15:09 Zofran Injection IVPB Q8H PRN NAUSEA Oxycodone HCl 5 mg 04/09/19 15:09 Roxicodone - PO Q6H PRN PAIN LEVEL 6-10 Pantoprazole Sodium 40 mg 04/09/19 16:00 Protonix - PO DAILY [facility] Senna 2 tab 04/09/19 22:00 Senna - PO HS [facility] Impression 1. ESRD 2. DM 3. HTN 4. gastroparesis 5. nausea 6. anemia 7. peripheral neuropathy 8. foot infection/cellulitis 9. left foot fifth digit amputation Plan - HD tomorrow - wound care - abx per ID - HD time 345 400 abf 2000 heparin bolus 500 maintenance - cont wound care Dr Arredondo
[2019-04-09] MEDS: BISACODYL 5 MG TABLET.DR (FP) PO SCH (16:25)
[2019-04-09] MEDS: FAMOTIDINE 20 MG TABLET PO SCH (16:25)
[2019-04-09] MEDS: oxyCODONE HCL 5 MG TABLET PO PRN ×2 (17:46→23:01)
[2019-04-09] MEDS ORDERED: PT OWN MED DRAWER 7, Y5N ONE (20:08)
[2019-04-09] MEDS: MELATONIN 1 MG TABLET PO SCH (21:43)
[2019-04-09] MEDS: DOCUSATE SODIUM 100 MG CAPSULE (FP) PO SCH (21:44)
[2019-04-09] MEDS: BACLOFEN 10 MG TABLET (FP) PO SCH (21:45)
[2019-04-09] MEDS: SENNOSIDES 8.6MG TABLET (FP) PO SCH (21:50)
[2019-04-10] MEDS: hydrALAZINE HCL 50 MG TABLET (FP) PO SCH ×3 (06:43→22:53)
[2019-04-10] MEDS: METOCLOPRAMIDE HCL 10 MG TABLET (FP) PO SCH ×3 (06:43→16:20)
[2019-04-10] MEDS: metroNIDAZOLE 250 MG TABLET PO SCH ×3 (06:43→22:52)
[2019-04-10] MEDS: INSULIN (LEVEMIR) 100 UNITS/ML UNITS SQ SCH ×2 (06:43→23:01)
[2019-04-10] MEDS: HEPARIN NA (PORCINE) 5,000 UNITS/ML 1ML VIAL SQ SCH ×3 (06:43→22:53)
[2019-04-10] MEDS: INSULIN SLIDING SCALE (NOVOLOG) 1 VIAL SQ SCH ×4 (06:44→23:06)
[2019-04-10] MEDS ORDERED: EPOETIN ALFA 3,000 UNIT/1 ML ML IVPUSH ONE (08:00)
[2019-04-10] MEDS ORDERED: HEPARIN NA (PORCINE) 5,000 UNITS/ML 1ML VIAL IVPUSH ONE (08:00)
[2019-04-10] MEDS: INSULIN (NOVOLOG) ASPART 100 UNITS/ML 10ML VIAL SQ SCH ×2 (08:53→16:56)
[2019-04-10] MEDS: CALCIUM ACETATE 667 MG CAPSULE (FP) PO SCH ×3 (08:53→16:57)
[2019-04-10] MEDS ORDERED: ceFAZolin SODIUM 1 GM VIAL ONE (08:58)
[2019-04-10] MEDS ORDERED: DEXTROSE 5%-WATER - 50 ML IVPB ONE (08:58)
[2019-04-10 09:18] LABS: BASO % 0.9 % (0-2.0); EOS % 3.1 % (0-4.5); HEMATOCRIT 25.5 % (32.4-45.2); HEMOGLOBIN 8.5 GM/dL (10.7-15.3); LYMPH % 14.3 % (8-40); MCH 32.4 pg (25.7-33.7); MCHC 33.3 g/dl (32.0-36.0); MEAN CELL VOLUME 97.3 fl (80-96); MEAN PLT VOLUME 9.1 fl (7.5-11.1); MONO % 10.2 % (3.8-10.2); NEUT % 71.5 % (42.8-82.8); PLATELET COUNT 370 K/MM3 (134-434); RBC 2.62 M/mm3 (3.60-5.2); RDW 14.3 % (11.6-15.6); WHITE BLOOD COUNT 10.4 K/mm3 (4.0-10.0)
[2019-04-10 09:45] LABS: CALCIUM 8.6 mg/dL (8.5-10.1); CREATININE 7.1 mg/dL (0.55-1.3); MAGNESIUM 2.6 mg/dL (1.8-2.4); PHOSPHOROUS 7.1 mg/dL (2.5-4.9); POTASSIUM 4.1 mmol/L (3.5-5.1)
[2019-04-10] MEDS: HEPARIN NA (PORCINE) 5,000 UNITS/ML 1ML VIAL IVPUSH SCH (10:18)
[2019-04-10] MEDS: CEFAZOLIN 1 GM in DEXTROSE 5%-WATER - 50 ML IVPB SCH (10:39)
--- NOTE | 2019-04-10 12:32 | PN ---
Teaching Attending Note Name of Resident: Hermelinda Radford ATTENDING PHYSICIAN STATEMENT I saw and evaluated the patient. I reviewed the resident's note and discussed the case with the resident. I agree with the resident's findings and plan as documented. SUBJECTIVE: Patient seen at HD. Sleeping but easily aroused. She has no complaints. OBJECTIVE: Vital Signs Period Temp Pulse Resp BP Sys/Rivera Pulse Ox Last 24 Hr 97.5 F-98.9 F 70-90 12-22 118-188/59-80 95-97 HEART: S1S2, RRR LUNGS: Clear ABDOMEN: Soft, non-tender, non-distended, normal BS EXTREMITIES: No edema, left foot wrapped Laboratory Results - last 24 hr 04/09/19 04/09/19 04/10/19 16:37 21:42 00:45 WBC RBC Hgb Hct MCV MCH MCHC RDW Plt Count MPV Absolute Neuts (auto) Neutrophils % Lymphocytes % Monocytes % Eosinophils % Basophils % Nucleated RBC % Sodium Potassium Chloride Carbon Dioxide Anion Gap BUN Creatinine Est GFR (CKD-EPI)AfAm Est GFR (CKD-EPI)NonAf POC Glucometer 186 384 216 Random Glucose Calcium Phosphorus Magnesium 04/10/19 04/10/19 04/10/19 06:41 08:45 08:45 WBC 10.4 H RBC 2.62 L Hgb 8.5 L Hct 25.5 L MCV 97.3 H MCH 32.4 MCHC 33.3 RDW 14.3 Plt Count 370 MPV 9.1 Absolute Neuts (auto) 7.4 Neutrophils % 71.5 Lymphocytes % 14.3 D Monocytes % 10.2 Eosinophils % 3.1 Basophils % 0.9 Nucleated RBC % 0 Sodium 139 Potassium 4.1 Chloride 101 Carbon Dioxide 28 Anion Gap 10 BUN 50.0 H Creatinine 7.1 H Est GFR (CKD-EPI)AfAm 6.96 Est GFR (CKD-EPI)NonAf 6.01 POC Glucometer 114 Random Glucose 193 H Calcium 8.6 Phosphorus 7.1 H Magnesium 2.6 H Current Medications Generic Name Dose Route Start Last Admin Trade Name Freq PRN Reason Stop Dose Admin Acetaminophen 650 mg 04/09/19 15:09 04/09/19 23:01 Tylenol - PO 650 mg Q6H PRN Administration PAIN LEVEL 1 - 3 Baclofen 10 mg 04/09/19 22:00 04/09/19 21:45 Lioresal - PO 10 mg HS [facility] Administration Bisacodyl 5 mg 04/10/19 10:00 Dulcolax - PO DAILY [facility] Buspirone HCl 10 mg 04/09/19 22:00 04/09/19 21:44 Buspar - PO 10 mg BID [facility] Administration Calcium Acetate 667 mg 04/09/19 17:30 04/10/19 08:53 Phoslo - PO Not Given TIDCM [facility] Carvedilol 25 mg 04/09/19 22:00 04/09/19 21:44 Coreg - PO 25 mg BID [facility] Administration Docusate Sodium 300 mg 04/09/19 22:00 04/09/19 21:44 Colace - PO 300 mg HS [facility] Administration Famotidine 20 mg 04/10/19 10:00 Pepcid - PO DAILY [facility] Heparin Sodium (Porcine) 5,000 unit 04/09/19 22:00 04/10/19 06:43 Heparin - SQ 5,000 unit TID [facility] Administration Hydralazine HCl 100 mg 04/09/19 22:00 04/10/19 06:43 Apresoline - PO 100 mg TID [facility] Administration Cefazolin Sodium 1 gm/ 50 mls @ 100 mls/hr 04/10/19 10:00 04/10/19 10:39 Dextrose IVPB 100 mls/hr DAILY [facility] Administration Sodium Chloride 250 mls @ 3,000 mls/hr 04/09/19 16:03 Normal Saline - IV 04/10/19 16:03 PRN PRN Hypotension during Dialysis Insulin Aspart 5 units 04/09/19 17:30 04/10/19 08:53 Novolog Vial SQ Not Given BIDWM [facility] Insulin Aspart 1 vial 04/09/19 16:30 04/10/19 11:48 Novolog Vial Sliding Scale - SQ Not Given ACHS [facility] Protocol Insulin Detemir 30 units 04/09/19 22:00 04/09/19 21:46 Levemir Vial SQ 30 units HS [facility] Administration Insulin Detemir 35 units 04/10/19 07:00 04/10/19 06:43 Levemir Vial SQ 35 unit 0700 [facility] Administration Losartan Potassium 100 mg 04/09/19 16:00 04/09/19 16:01 Cozaar - PO 100 mg DAILY [facility] Administration Melatonin 3 mg 04/09/19 22:00 04/09/19 21:43 Melatonin PO 3 mg HS [facility] Administration Metoclopramide HCl 10 mg 04/09/19 16:30 04/10/19 06:43 Reglan - PO 10 mg TIDAC [facility] Administration Metronidazole 500 mg 04/09/19 22:00 04/10/19 06:43 Flagyl - PO 500 mg TID [facility] Administration Nifedipine 90 mg 04/09/19 16:00 04/09/19 16:01 Procardia Xl - PO 90 mg DAILY [facility] Administration Ondansetron HCl 4 mg 04/09/19 15:09 04/10/19 00:49 Zofran Injection IVPB 4 mg Q8H PRN Administration NAUSEA Oxycodone HCl 5 mg 04/09/19 15:09 04/09/19 23:01 Roxicodone - PO 5 mg Q6H PRN Administration PAIN LEVEL 6-10 Pantoprazole Sodium 40 mg 04/09/19 16:00 04/09/19 16:01 Protonix - PO 40 mg DAILY [facility] Administration Senna 2 tab 04/09/19 22:00 04/09/19 21:50 Senna - PO 2 tab HS [facility] Administration ASSESSMENT AND PLAN: This is a 53 year old woman with a history of ESRD, HTN, type 2 DM, GERD, gastroparesis, neuropathy, anxiety, depression who presented to the ED with left foot pain. 1. Infected left 5th toe ulcer with osteomyelitis, cellulitis, and gangrene of left 5th toe - s/p left 5th toe amputation 04/09 - Wound culture (04/02) growing MSSA, group B Strep - Bone culture pending - Pain control - Wound care - Continue Ancef, Flagyl 2. ESRD - Continue HD - Continue PhosLo 3. HTN - Continue Procardia XL, Coreg, Cozaar, Hydralazine 4. Type 2 DM - Continue Levemir, Novolog 5. Diabetic peripheral neuropathy 6. Diabetic gastroparesis - Continue Reglan 7. GERD - Continue Pepcid, Protonix 8. Depression with anxiety - Continue BuSpar 9. Anemia secondary to chronic illness/CKD - Procrit with HD
--- NOTE | 2019-04-10 12:41 | PN ---
Progress Note (short form) - Note Progress Note: Podiatry F/U: Seen/evaluated at bedside NAD. Pain controlled, denies F/V/N/C/SOB/CP. AFebrile. S/p left fifth digit amputation POD#1. ABNER: L foot: pedal pulses 1/4, TG wnl, CFT brisk to remaining toes. Sutures well coapted, packing in place. No purulent drainage, no fluctuance, no active bleeding, no streaking cellulitis, no signs of active infection. Mild tenderness to palpation. No ischemic changes. OR Cx: pending Imp: 53 year old diabetic female s/p left fifth digit amputation 1. IV abx per ID 2. Packing removed at bedside in HD; dry sterile dressing applied to the left foot 3. Partial WB L heel with surgical shoe 4. F/u cultures 5. Will follow Nuris Stroud DPM
--- NOTE | 2019-04-10 13:20 | PN ---
Progress Note, Physician History of Present Illness: Pt seen and examined at bedside. She is tolerating HD. She denies shortness of breath. - Current Medication List Current Medications: Active Medications Acetaminophen (Tylenol -) 650 mg PO Q6H PRN PRN Reason: PAIN LEVEL 1 - 3 Last Admin: 04/09/19 23:01 Dose: 650 mg Baclofen (Lioresal -) 10 mg PO HS [facility] Last Admin: 04/09/19 21:45 Dose: 10 mg Bisacodyl (Dulcolax -) 5 mg PO DAILY [facility] Buspirone HCl (Buspar -) 10 mg PO BID [facility] Last Admin: 04/09/19 21:44 Dose: 10 mg Calcium Acetate (Phoslo -) 667 mg PO TIDCM [facility] Last Admin: 04/10/19 08:53 Dose: Not Given Carvedilol (Coreg -) 25 mg PO BID [facility] Last Admin: 04/09/19 21:44 Dose: 25 mg Docusate Sodium (Colace -) 300 mg PO [facility] Last Admin: 04/09/19 21:44 Dose: 300 mg Famotidine (Pepcid -) 20 mg PO DAILY [facility] Heparin Sodium (Porcine) (Heparin -) 5,000 unit SQ TID [facility] Last Admin: 04/10/19 06:43 Dose: 5,000 unit Hydralazine HCl (Apresoline -) 100 mg PO TID [facility] Last Admin: 04/10/19 06:43 Dose: 100 mg Cefazolin Sodium 1 gm/ (Dextrose) 50 mls @ 100 mls/hr IVPB DAILY [facility] Last Admin: 04/10/19 10:39 Dose: 100 mls/hr Sodium Chloride (Normal Saline -) 250 mls @ 3,000 mls/hr IV PRN PRN PRN Reason: Hypotension during Dialysis Stop: 04/10/19 16:03 Insulin Aspart (Novolog Vial) 5 units SQ BIDWM [facility] Last Admin: 04/10/19 08:53 Dose: Not Given Insulin Aspart (Novolog Vial Sliding Scale -) 1 vial SQ ACHS [facility]; Protocol Last Admin: 04/10/19 11:48 Dose: Not Given Insulin Detemir (Levemir Vial) 30 units SQ HS [facility] Last Admin: 04/09/19 21:46 Dose: 30 units Insulin Detemir (Levemir Vial) 35 units SQ 0700 [facility] Last Admin: 04/10/19 06:43 Dose: 35 unit Losartan Potassium (Cozaar -) 100 mg PO DAILY [facility] Last Admin: 04/09/19 16:01 Dose: 100 mg Melatonin (Melatonin) 3 mg PO HS [facility] Last Admin: 04/09/19 21:43 Dose: 3 mg Metoclopramide HCl (Reglan -) 10 mg PO TIDAC [facility] Last Admin: 04/10/19 06:43 Dose: 10 mg Metronidazole (Flagyl -) 500 mg PO TID [facility] Last Admin: 04/10/19 06:43 Dose: 500 mg Nifedipine (Procardia Xl -) 90 mg PO DAILY [facility] Last Admin: 04/09/19 16:01 Dose: 90 mg Ondansetron HCl (Zofran Injection) 4 mg IVPB Q8H PRN PRN Reason: NAUSEA Last Admin: 04/10/19 00:49 Dose: 4 mg Oxycodone HCl (Roxicodone -) 5 mg PO Q6H PRN PRN Reason: PAIN LEVEL 6-10 Last Admin: 04/09/19 23:01 Dose: 5 mg Pantoprazole Sodium (Protonix -) 40 mg PO DAILY [facility] Last Admin: 04/09/19 16:01 Dose: 40 mg Senna (Senna -) 2 tab PO HS [facility] Last Admin: 04/09/19 21:50 Dose: 2 tab - Objective Vital Signs: Vital Signs Temperature 97.6 F 04/10/19 08:40 Pulse Rate 74 04/10/19 12:30 Respiratory Rate 18 04/10/19 12:30 Blood Pressure 142/67 04/10/19 12:30 O2 Sat by Pulse Oximetry (%) 95 04/10/19 08:10 Constitutional: Yes: Calm Eyes: Yes: Conjunctiva Clear HENT: Yes: Atraumatic Neck: Yes: Supple Cardiovascular: Yes: S1, S2 Respiratory: Yes: CTA Bilaterally Gastrointestinal: Yes: Soft Genitourinary: Yes: WNL Musculoskeletal: Yes: WNL Edema: No Wound/Incision: Yes: Dressing Dry and Intact Neurological: Yes: Oriented Psychiatric: Yes: Oriented Labs: CBC, BMP 04/10/19 08:45 04/10/19 08:45 INR, PTT INR 1.04 (0.83-1.09) 04/02/19 19:00 Problem List - Problems (1) Cellulitis of left lower extremity Code(s): L03.116 - CELLULITIS OF LEFT LOWER LIMB (2) End stage renal disease on dialysis Code(s): N18.6 - END STAGE RENAL DISEASE; Z99.2 - DEPENDENCE ON RENAL DIALYSIS Assessment/Plan Current Medications Generic Name Dose Route Start Last Admin Trade Name Freq PRN Reason Stop Dose Admin Acetaminophen 650 mg 04/09/19 15:09 04/09/19 23:01 Tylenol - PO 650 mg Q6H PRN Administration PAIN LEVEL 1 - 3 Baclofen 10 mg 04/09/19 22:00 04/09/19 21:45 Lioresal - PO 10 mg HS [facility] Administration Bisacodyl 5 mg 04/10/19 10:00 Dulcolax - PO DAILY [facility] Buspirone HCl 10 mg 04/09/19 22:00 04/09/19 21:44 Buspar - PO 10 mg BID [facility] Administration Calcium Acetate 667 mg 04/09/19 17:30 04/10/19 08:53 Phoslo - PO Not Given TIDCM [facility] Carvedilol 25 mg 04/09/19 22:00 04/09/19 21:44 Coreg - PO 25 mg BID [facility] Administration Docusate Sodium 300 mg 04/09/19 22:00 04/09/19 21:44 Colace - PO 300 mg HS [facility] Administration Famotidine 20 mg 04/10/19 10:00 Pepcid - PO DAILY [facility] Heparin Sodium (Porcine) 5,000 unit 04/09/19 22:00 04/10/19 06:43 Heparin - SQ 5,000 unit TID [facility] Administration Hydralazine HCl 100 mg 04/09/19 22:00 04/10/19 06:43 Apresoline - PO 100 mg TID [facility] Administration Cefazolin Sodium 1 gm/ 50 mls @ 100 mls/hr 04/10/19 10:00 04/10/19 10:39 Dextrose IVPB 100 mls/hr DAILY [facility] Administration Sodium Chloride 250 mls @ 3,000 mls/hr 04/09/19 16:03 Normal Saline - IV 04/10/19 16:03 PRN PRN Hypotension during Dialysis Insulin Aspart 5 units 04/09/19 17:30 04/10/19 08:53 Novolog Vial SQ Not Given BIDWM [facility] Insulin Aspart 1 vial 04/09/19 16:30 04/10/19 11:48 Novolog Vial Sliding Scale - SQ Not Given ACHS [facility] Protocol Insulin Detemir 30 units 04/09/19 22:00 04/09/19 21:46 Levemir Vial SQ 30 units HS [facility] Administration Insulin Detemir 35 units 04/10/19 07:00 04/10/19 06:43 Levemir Vial SQ 35 unit 0700 [facility] Administration Losartan Potassium 100 mg 04/09/19 16:00 04/09/19 16:01 Cozaar - PO 100 mg DAILY [facility] Administration Melatonin 3 mg 04/09/19 22:00 04/09/19 21:43 Melatonin PO 3 mg HS [facility] Administration Metoclopramide HCl 10 mg 04/09/19 16:30 04/10/19 06:43 Reglan - PO 10 mg TIDAC [facility] Administration Metronidazole 500 mg 04/09/19 22:00 04/10/19 06:43 Flagyl - PO 500 mg TID [facility] Administration Nifedipine 90 mg 04/09/19 16:00 04/09/19 16:01 Procardia Xl - PO 90 mg DAILY [facility] Administration Ondansetron HCl 4 mg 04/09/19 15:09 04/10/19 00:49 Zofran Injection IVPB 4 mg Q8H PRN Administration NAUSEA Oxycodone HCl 5 mg 04/09/19 15:09 04/09/19 23:01 Roxicodone - PO 5 mg Q6H PRN Administration PAIN LEVEL 6-10 Pantoprazole Sodium 40 mg 04/09/19 16:00 04/09/19 16:01 Protonix - PO 40 mg DAILY [facility] Administration Senna 2 tab 04/09/19 22:00 04/09/19 21:50 Senna - PO 2 tab HS [facility] Administration Impression 1. ESRD 2. DM 3. HTN 4. gastroparesis 5. nausea 6. anemia 7. peripheral neuropathy 8. foot infection/cellulitis 9. left foot fifth digit amputation Plan - HD today - cont wound care - podiatry follow up - abx per ID - HD time 345 400 abf 2000 heparin bolus [address] Arredondo
[2019-04-10] MEDS: oxyCODONE HCL 5 MG TABLET PO PRN ×2 (13:35→22:52)
[2019-04-10] MEDS: CARVEDILOL 25 MG TABLET (FP) PO SCH ×2 (13:36→22:53)
[2019-04-10] MEDS: PANTOPRAZOLE 40 MG TABLET (FP) PO SCH (13:37)
[2019-04-10] MEDS: busPIRone HCL 10 MG TABLET (FP) PO SCH ×2 (13:37→22:53)
[2019-04-10] MEDS: BISACODYL 5 MG TABLET.DR (FP) PO SCH (13:38)
[2019-04-10] MEDS: LOSARTAN POTASSIUM 50 MG TABLET (FP) PO SCH (13:38)
--- NOTE | 2019-04-10 13:38 | PN ---
Progress Note (short form) - Note Progress Note: Hospitalist Medicine In good spirits. Resting. Went for HD today Vitals 04/10/19 12:30 Pulse Rate 74 Respiratory 18 Rate Blood Pressure 142/67 Physical Exam general: resting in bed, in NAD. HEENT: NCAT, PERRLA cardio: S1, S2 RRR. no r/m/g pulm: CTA b/l abdomen: obese, nontender, nondistended LE: 1+ pulses LLE. w/ packing, no drainage. no erythema Laboratory Tests 04/10/19 04/10/19 08:45 08:45 WBC 10.4 H Hgb 8.5 L Hct 25.5 L Plt Count 370 Sodium 139 Potassium 4.1 Chloride 101 Carbon Dioxide 28 BUN 50.0 H Creatinine 7.1 H Random Glucose 193 H Phosphorus 7.1 H Magnesium 2.6 H Microbiology 04/02/19 20:00 Blood - Peripheral Venous Blood Culture - Final NO GROWTH AFTER 5 DAYS INCUBATION 04/02/19 20:00 Blood - Peripheral Venous Blood Culture - Final NO GROWTH AFTER 5 DAYS INCUBATION 04/02/19 19:20 Toe - Left Fifth Gram Stain - Final 04/02/19 19:20 Toe - Left Fifth Wound Culture - Final Staphylococcus Aureus Strep Agalactiae Group B 04/06/19 14:39 Blood - Peripheral Venous Blood Culture - Preliminary NO GROWTH OBTAINED AFTER 72 HOURS, INCUBATION TO CONTINUE FOR 2 DAYS. 04/06/19 14:35 Blood - Peripheral Venous Blood Culture - Preliminary NO GROWTH OBTAINED AFTER 72 HOURS, INCUBATION TO CONTINUE FOR 2 DAYS. Imaging 04/02/19 CXR: no active pulm dz . cardiomegaly, lungs well aerated 04/02/19: L foot XR: no subcutnaeous emphysema, no definite signs of osteomyelitis 04/02/19: MRI LE w/o contrast: cellulitis of the foot. no soft tissue abscess. osteo of 5th toe involving the phalanges w suspicion of osteo of head of fifth metatarsal 04/05/19: CTA w/ runoff: infrapopliteal dz. multifocal high grade stenoses vs short segmental occlusions in the right TP trunk, [employer] and peroneal artery w reconstitution of flow in plantar artery. predominant flow to the R foot via the JOSEFINA with patent dp artery. occluded L peroneal artery. multifocal dz in L [employer] with multifocal high grade stenoses. patent L josefina with focal high grade stenosis in range of 70-90% of the distal JOSEFINA with patent proximal dp artery which occludes at the level of the midfoot. focal mid R SFA moderate stenosis in the range of 50-70%. nonobstructing right renal stones. prominent CBD 7mm; nonspecific. bilateral adrenal gland hyperplasia. 1.6cm right and 2.5cm left adnexal cyst. Assessment/Plan 53 year old woman with a history of ESRD, HTN, type 2 DM, GERD, gastroparesis, neuropathy, anxiety, depression who presented to the ED with left foot pain. Found to have osteomyelitis of the L fifth toe. s/p amputation. #L 5th toe osteomyelitis, s/p amputation- PO Day 1 -toe gram stain, cx: staph aureus, strep B - on cefazolin (04/06), flagyl (04/06 ) -f/u blood cx (-) thus far -c/w wound care -on roxicodone 5mg PO q6h PRN, tylenol PRN for pain -cont bowel regimen; senna, colace, dulcolax -per podiatry, partial weight bearing L heel, surgical shoe -ID on board: Dr. Downing -Podiatry: Dr. Stroud -Vascular: Dr. Mcclain #ESRD on HD -completed HD tday (04/10) -c/w phoslo -Nephro: Dr. Arredondo #IDDM w/ gastroparesis, diabetic neuropathy -c/w levemir 30u sq HS, 35u in AM -ISS, BGM ACHS -maintain controlled BGM < 180 to aid wound healing -c/w reglan #Anxiety -can give small dose of ativan PO PRN -c/w buspar -on melatonin #HTN -c/w coreg, hydralazine, procardia, losartan #PPX DVT: on hep 5k sq tid GI: on protonix #F/E/N no IVF at this time continue to follow lytes renal diet #Dispo monitoring on med-surg on IV abx
[2019-04-10] MEDS: FAMOTIDINE 20 MG TABLET PO SCH (13:39)
[2019-04-10] MEDS: NIFEdipine E.R. 90 MG TABLET (FP) PO SCH (13:39)
[2019-04-10] MEDS: ACETAMINOPHEN 325 MG TABLET (FP) PO PRN (13:47)
[2019-04-10] MEDS ORDERED: PT OWN MED DRAWER 7, Y5N ONE (22:08)
[2019-04-10] MEDS: DOCUSATE SODIUM 100 MG CAPSULE (FP) PO SCH (22:51)
[2019-04-10] MEDS: BACLOFEN 10 MG TABLET (FP) PO SCH (22:52)
[2019-04-10] MEDS: SENNOSIDES 8.6MG TABLET (FP) PO SCH (22:52)
[2019-04-10] MEDS: MELATONIN 1 MG TABLET PO SCH (22:52)
--- NOTE | 2019-04-11 00:31 | OP ---
DATE OF OPERATION: 04/09/2019 PREOPERATIVE DIAGNOSIS: Left fifth toe gangrene, cellulitis and osteomyelitis. POSTOPERATIVE DIAGNOSIS: Left fifth toe gangrene, cellulitis and osteomyelitis. PROCEDURE: Left fifth toe amputation. SURGEON: Jose Maria Stroud DPM REPLENISHMENT ANALYST: None. ANESTHESIA: IV sedation with local. HEMOSTASIS: Surgical dissection. PATHOLOGY: Left fifth toe, left fifth metatarsal head. COMPLICATIONS: None. DESCRIPTION OF PROCEDURE: Patient was brought to the operating room and placed on the operating table in a supine position. Following induction of IV sedation, local anesthesia was achieved using 10 mL of 2% lidocaine plain. The left foot was scrubbed, prepped, and draped in the usual sterile fashion Attention was directed to the left 5th toe, where a gangrenous 5th toe with streaking cellulitis was visualized and appreciated. I began by performing a 4-cm linear longitudinal incision over the 4th metatarsal. The incision was carried distally and circumferentially about the 5th toe at the level of the 5th metatarsophalangeal joint. Incision was deepened using sharp and blunt dissection taking care to retract vital neural and vascular structures. All bleeders were cauterized and ligated as needed. Next, the 5th digit, which was noted to be wet and gangrenous, was disarticulated at the level of the metatarsophalangeal joint. The 5th toe was removed and sent to pathology for analysis. There was underlying vascular tissue, which was removed. However, the remaining tissue was bleeding well. Next, I performed a linear capsulotomy dorsally over the 5th metatarsal head. All deep capsular and periosteal structures were reflected from the 5th metatarsal head. The 5th metatarsal head was resected using the sagittal saw. A portion of the bone was sectioned for bone culture and proximal bone pathology. A wound culture was also obtained. The surgical site was copiously irrigated with sterile saline. The surgical site was loosely packed with 1/4-inch iodoform packing. The remaining incision was coapted and maintained using 3-0 nylon in a simple interrupted suture fashion. Following conclusion of the procedure, the surgical site was covered with Xeroform, and a sterile compressive dressing was applied to the left foot, consisting of sterile gauze, Kevin, Kerlix, and Isauro wrap. Patient tolerated the procedure and anesthesia well without complications. She was transferred from the operating room to the recovery unit with vital signs stable and neural vasculature intact to the left foot. NAHID LAGUERRE/[id number]
[2019-04-11] MEDS: INSULIN SLIDING SCALE (NOVOLOG) 1 VIAL SQ SCH ×4 (06:20→22:06)
[2019-04-11] MEDS: INSULIN (LEVEMIR) 100 UNITS/ML UNITS SQ SCH ×2 (06:27→21:54)
[2019-04-11] MEDS: HEPARIN NA (PORCINE) 5,000 UNITS/ML 1ML VIAL SQ SCH ×3 (06:28→21:52)
[2019-04-11] MEDS: hydrALAZINE HCL 50 MG TABLET (FP) PO SCH ×3 (06:28→21:52)
[2019-04-11] MEDS: metroNIDAZOLE 250 MG TABLET PO SCH ×3 (06:28→21:53)
[2019-04-11] MEDS: METOCLOPRAMIDE HCL 10 MG TABLET (FP) PO SCH ×3 (06:28→16:45)
--- NOTE | 2019-04-11 07:33 | PN ---
Progress Note (short form) - Note Progress Note: Dr Robert Bennett Seen at bedside in NAD Afebrile VSS Dressing CDI Wound well coapted NO signs of purulence Edema and erythema decreased Clinically stable Impression Satisfactory healing s/p 5th toe amputation Plan: IVABX Picc line d/c planning dressing change performed F/u at [facility] on outpt basis
[2019-04-11 07:51] LABS: BASO % 0.9 % (0-2.0); EOS % 2.5 % (0-4.5); HEMATOCRIT 24.9 % (32.4-45.2); HEMOGLOBIN 8.4 GM/dL (10.7-15.3); MCH 32.2 pg (25.7-33.7); MCHC 33.6 g/dl (32.0-36.0); MEAN PLT VOLUME 8.6 fl (7.5-11.1); MONO % 16.4 % (3.8-10.2); NEUT % 63.2 % (42.8-82.8); PLATELET COUNT 399 K/MM3 (134-434); RBC 2.59 M/mm3 (3.60-5.2); RDW 14.1 % (11.6-15.6); WHITE BLOOD COUNT 8.1 K/mm3 (4.0-10.0)
[2019-04-11 08:22] LABS: BLOOD UREA NITROGEN 34.3 mg/dL (7-18); CALCIUM 8.5 mg/dL (8.5-10.1); CREATININE 5.1 mg/dL (0.55-1.3); POTASSIUM 3.8 mmol/L (3.5-5.1)
[2019-04-11] MEDS ORDERED: PT OWN MED DRAWER 7, Y5N ONE ×2 (09:19→11:51)
[2019-04-11] MEDS ORDERED: ceFAZolin SODIUM 1 GM VIAL ONE (09:20)
[2019-04-11] MEDS ORDERED: DEXTROSE 5%-WATER - 50 ML IVPB ONE (09:20)
[2019-04-11] MEDS: LOSARTAN POTASSIUM 50 MG TABLET (FP) PO SCH (09:26)
[2019-04-11] MEDS: CEFAZOLIN 1 GM in DEXTROSE 5%-WATER - 50 ML IVPB SCH (09:27)
[2019-04-11] MEDS: FAMOTIDINE 20 MG TABLET PO SCH (09:27)
[2019-04-11] MEDS: NIFEdipine E.R. 90 MG TABLET (FP) PO SCH (09:28)
[2019-04-11] MEDS: CALCIUM ACETATE 667 MG CAPSULE (FP) PO SCH ×3 (09:29→16:45)
[2019-04-11] MEDS: PANTOPRAZOLE 40 MG TABLET (FP) PO SCH (09:29)
[2019-04-11] MEDS: BISACODYL 5 MG TABLET.DR (FP) PO SCH (09:30)
[2019-04-11] MEDS: CARVEDILOL 25 MG TABLET (FP) PO SCH ×2 (09:30→21:52)
[2019-04-11] MEDS: INSULIN (NOVOLOG) ASPART 100 UNITS/ML 10ML VIAL SQ SCH (09:31)
[2019-04-11] MEDS: ACETAMINOPHEN 325 MG TABLET (FP) PO PRN ×3 (09:51→20:24)
--- NOTE | 2019-04-11 10:53 | PN ---
Progress Note (short form) - Note Progress Note: s/p fifth toe amputation 04/09 Vital Signs Period Temp Pulse Resp BP Sys/Rivera Pulse Ox Last 24 Hr 98 F-98.3 F 68-95 18-18 118-155/67-89 99-99 cor-rrr lungs decreased bs at bases abd soft,nt ext sutures intact, no drainage, no erythema of the foot CBC, BMP 04/11/19 07:10 04/11/19 07:10 Microbiology 04/09/19 17:00 Bone Gram Stain - Final 04/09/19 17:00 Bone Tissue Culture - Preliminary NO AEROBIC GROWTH, 24 HRS 04/09/19 17:00 Toe - Left Fifth Gram Stain - Final 04/09/19 17:00 Toe - Left Fifth Wound Culture - Preliminary NO GROWTH OBTAINED AFTER 24 HOURS INCUBATION, REINCUBATED. 04/06/19 14:35 Blood - Peripheral Venous Blood Culture - Preliminary NO GROWTH OBTAINED AFTER 96 HOURS, INCUBATION TO CONTINUE FOR 1 DAYS. 04/06/19 14:39 Blood - Peripheral Venous Blood Culture - Preliminary NO GROWTH OBTAINED AFTER 96 HOURS, INCUBATION TO CONTINUE FOR 1 DAYS. 04/02/19 20:00 Blood - Peripheral Venous Blood Culture - Final NO GROWTH AFTER 5 DAYS INCUBATION 04/02/19 20:00 Blood - Peripheral Venous Blood Culture - Final NO GROWTH AFTER 5 DAYS INCUBATION 04/02/19 19:20 Toe - Left Fifth Gram Stain - Final 04/02/19 19:20 Toe - Left Fifth Wound Culture - Final Staphylococcus Aureus Strep Agalactiae Group B imp/reccd diabetic foot infection- osteomyelitis by MRI with clinical abscess of the toe with purulent drainage noted esrd/hd continue ancef and po flagyl f/u operative cultures and pathology hoping to avoid PICC line and treat at HD once final cultures are back esr/crp in am Problem List - Problems (1) Diabetic infection of left foot Code(s): E11.628 - TYPE 2 DIABETES MELLITUS WITH OTHER SKIN COMPLICATIONS; L08.9 - LOCAL INFECTION OF THE SKIN AND SUBCUTANEOUS TISSUE, UNSP (2) End stage renal disease on dialysis Code(s): N18.6 - END STAGE RENAL DISEASE; Z99.2 - DEPENDENCE ON RENAL DIALYSIS
[2019-04-11] MEDS ORDERED: DEXTROSE 50%-WATER - 25 GM/50 ML VIAL IVPUSH ONE ×3 (11:40→14:45)
--- NOTE | 2019-04-11 11:42 | PN ---
Progress Note (short form) - Note Progress Note: Hospitalist Medicine Without complaint, eating breakfast this AM. Pending op cultures, path in order to determine IV abx on d/c Vitals 04/11/19 10:09 Temperature 98 F Pulse Rate 82 Respiratory 18 Rate Blood Pressure 155/89 Physical Exam refused this AM Laboratory Tests 04/11/19 04/11/19 04/11/19 05:56 07:10 07:10 WBC 8.1 Hgb 8.4 L Hct 24.9 L Plt Count 399 Sodium 139 Potassium 3.8 Chloride 101 Carbon Dioxide 29 BUN 34.3 H Creatinine 5.1 H POC Glucometer 121 Random Glucose 153 H Calcium 8.5 Microbiology 04/09/19 17:00 Toe - Left Fifth Gram Stain - Final 04/09/19 17:00 Bone Gram Stain - Final 04/02/19 20:00 Blood - Peripheral Venous Blood Culture - Final NO GROWTH AFTER 5 DAYS INCUBATION 04/02/19 20:00 Blood - Peripheral Venous Blood Culture - Final NO GROWTH AFTER 5 DAYS INCUBATION 04/02/19 19:20 Toe - Left Fifth Gram Stain - Final 04/02/19 19:20 Toe - Left Fifth Wound Culture - Final Staphylococcus Aureus Strep Agalactiae Group B 04/09/19 17:00 Toe - Left Fifth Wound Culture - Preliminary NO GROWTH OBTAINED AFTER 24 HOURS INCUBATION, REINCUBATED. 04/09/19 17:00 Bone Tissue Culture - Preliminary NO AEROBIC GROWTH, 24 HRS 04/06/19 14:39 Blood - Peripheral Venous Blood Culture - Preliminary NO GROWTH OBTAINED AFTER 96 HOURS, INCUBATION TO CONTINUE FOR 1 DAYS. 04/06/19 14:35 Blood - Peripheral Venous Blood Culture - Preliminary NO GROWTH OBTAINED AFTER 96 HOURS, INCUBATION TO CONTINUE FOR 1 DAYS. Imaging 04/02/19 CXR: no active pulm dz . cardiomegaly, lungs well aerated 04/02/19: L foot XR: no subcutnaeous emphysema, no definite signs of osteomyelitis 04/02/19: MRI LE w/o contrast: cellulitis of the foot. no soft tissue abscess. osteo of 5th toe involving the phalanges w suspicion of osteo of head of fifth metatarsal 04/05/19: CTA w/ runoff: infrapopliteal dz. multifocal high grade stenoses vs short segmental occlusions in the right TP trunk, [employer] and peroneal artery w reconstitution of flow in plantar artery. predominant flow to the R foot via the JOSEFINA with patent dp artery. occluded L peroneal artery. multifocal dz in L [employer] with multifocal high grade stenoses. patent L josefina with focal high grade stenosis in range of 70-90% of the distal JOSEFINA with patent proximal dp artery which occludes at the level of the midfoot. focal mid R SFA moderate stenosis in the range of 50-70%. nonobstructing right renal stones. prominent CBD 7mm; nonspecific. bilateral adrenal gland hyperplasia. 1.6cm right and 2.5cm left adnexal cyst. Assessment/Plan 53 year old woman with a history of ESRD, HTN, type 2 DM, GERD, gastroparesis, neuropathy, anxiety, depression who presented to the ED with left foot pain. Found to have osteomyelitis of the L fifth toe. s/p amputation. #L 5th toe osteomyelitis, s/p amputation -toe gram stain, cx: staph aureus, strep B - on cefazolin (04/06), PO flagyl -cx (-) thus far , awaiting path -c/w wound care -on roxicodone 5mg PO q6h PRN, tylenol PRN for pain -cont bowel regimen; senna, colace, dulcolax -may receive IV abx during dialysis, pending above -per podiatry, partial weight bearing L heel, surgical shoe -ID on board: Dr. Downing -Podiatry: Dr. Stroud -Vascular: Dr. Mcclain #ESRD on HD -c/w phoslo -Nephro: Dr. Arredondo #IDDM w/ gastroparesis, diabetic neuropathy -c/w levemir 30u sq HS, 35u in AM -ISS, BGM ACHS -maintain controlled BGM < 180 to aid wound healing -c/w reglan #Anxiety -can give small dose of ativan PO PRN -c/w buspar -on melatonin #HTN -c/w coreg, hydralazine, procardia, losartan #PPX DVT: on hep 5k sq tid GI: on protonix #F/E/N no IVF at this time continue to follow lytes renal diet #Dispo monitoring on med-surg on IV abx ; pending op cx, path to determine IV abx course and whether PICC is needed vs. abx during dialysis <Malina,Hermelinda - Last Filed: 04/11/19 16:30> - Note Progress Note: Seen and examined; please refer to resident note for further historical information. I agree with the aforementioned assessment and plan and historical information aside from as supplemented by myself. Independently verified all peña exam findings and diagnostics. I discussed the case at length with the resident and agree with the plan as outlined. No further new complaints but states she has ongoing neuropathy that has not improved postop. No CP, SOB 10 sys ROS done and negative aside from HPI VS, labs, imaging reviewed NAD AAO resting in bed NC AT EOMI PERRLA HR wnl, s1/2+ NT ND +BS CN2-12 wnl, no fnd Normal mood, appropriate behavior. Not psychotic appearing but did endorse legs changing color with gangrene? Patient presents with DM ulcer with underlying OM/cellulitis and gangrene of the L-fifth digit with underlying PAD. HD per nephro, lytes stable. Doing well postop; some neuropathy. Can uptitrate if not improved. -DM ulcer with underlying OM/cellulitis and gangrene (s/p 04/09 amputation 5th digit) - ESRD on HD - HTN - Type 2 DM; Continue Levemir, Novolog with SSI. Suboptimal coverage and this contributed to her presenting illness. Continue to monitor fsg. - Diabetic peripheral neuropathy. Can uptitrate meds as needed given persisting neuropathic symptoms. - Diabetic gastroparesis - GERD (determiine why on H2 jarret and PPI prior to DC?) - Depression with anxiety - Anemia secondary to chronic illness/CK <Jovani Hernandez - Last Filed: 04/13/19 04:29>
[2019-04-11] MEDS: busPIRone HCL 10 MG TABLET (FP) PO SCH ×2 (12:32→23:04)
[2019-04-11] MEDS ORDERED: DEXTROSE 50%-WATER 25 GM/50 ML DISP.SYRIN ONE (14:53)
--- NOTE | 2019-04-11 20:33 | PN ---
Progress Note, Physician History of Present Illness: Pt seen and examined at bedside. She is awake and alert. She denies shortness of breath. - Current Medication List Current Medications: Active Medications Acetaminophen (Tylenol -) 650 mg PO Q6H PRN PRN Reason: PAIN LEVEL 1 - 3 Last Admin: 04/11/19 20:24 Dose: 650 mg Baclofen (Lioresal -) [address] [facility] Last Admin: 04/10/19 22:52 Dose: 10 mg Bisacodyl (Dulcolax -) 5 mg PO DAILY [facility] Last Admin: 04/11/19 09:30 Dose: 5 mg Buspirone HCl (Buspar -) 10 mg PO BID [facility] Last Admin: 04/11/19 12:32 Dose: 10 mg Calcium Acetate (Phoslo -) 667 mg PO TIDCM [facility] Last Admin: 04/11/19 16:45 Dose: 667 mg Carvedilol (Coreg -) 25 mg PO BID [facility] Last Admin: 04/11/19 09:30 Dose: 25 mg Docusate Sodium (Colace -) [address] [facility] Last Admin: 04/10/19 22:51 Dose: 300 mg Famotidine (Pepcid -) 20 mg PO DAILY [facility] Last Admin: 04/11/19 09:27 Dose: 20 mg Heparin Sodium (Porcine) (Heparin -) 5,000 unit SQ TID [facility] Last Admin: 04/11/19 15:07 Dose: 5,000 unit Hydralazine HCl (Apresoline -) 100 mg PO TID [facility] Last Admin: 04/11/19 15:05 Dose: 100 mg Cefazolin Sodium 1 gm/ (Dextrose) 50 mls @ 100 mls/hr IVPB DAILY [facility] Last Admin: 04/11/19 09:27 Dose: 100 mls/hr Insulin Aspart (Novolog Vial Sliding Scale -) 1 vial SQ [facility]; Protocol Last Admin: 04/11/19 16:45 Dose: Not Given Insulin Detemir (Levemir Vial) [address] [facility] Last Admin: 04/10/19 23:01 Dose: 30 units Insulin Detemir (Levemir Vial) 35 units SQ 0700 [facility] Last Admin: 04/11/19 06:27 Dose: 35 unit Losartan Potassium (Cozaar -) 100 mg PO DAILY [facility] Last Admin: 04/11/19 09:26 Dose: 100 mg Melatonin (Melatonin) 3 mg PO HS [facility] Last Admin: 04/10/19 22:52 Dose: 3 mg Metoclopramide HCl (Reglan -) 10 mg PO TIDAC [facility] Last Admin: 04/11/19 16:45 Dose: 10 mg Metronidazole (Flagyl -) 500 mg PO TID [facility] Last Admin: 04/11/19 15:05 Dose: 500 mg Nifedipine (Procardia Xl -) 90 mg PO DAILY [facility] Last Admin: 04/11/19 09:28 Dose: 90 mg Ondansetron HCl (Zofran Injection) 4 mg IVPB Q8H PRN PRN Reason: NAUSEA Last Admin: 04/10/19 00:49 Dose: 4 mg Oxycodone HCl (Roxicodone -) 5 mg PO Q6H PRN PRN Reason: PAIN LEVEL 6-10 Last Admin: 04/10/19 22:52 Dose: 5 mg Pantoprazole Sodium (Protonix -) 40 mg PO DAILY [facility] Last Admin: 04/11/19 09:29 Dose: 40 mg Senna (Senna -) [address] [facility] Last Admin: 04/10/19 22:52 Dose: 2 tab - Objective Vital Signs: Vital Signs Temperature 97.7 F 04/11/19 14:17 Pulse Rate 75 04/11/19 14:17 Respiratory Rate 18 04/11/19 14:17 Blood Pressure 150/77 04/11/19 14:17 O2 Sat by Pulse Oximetry (%) 99 04/11/19 07:49 Constitutional: Yes: Calm Eyes: Yes: Conjunctiva Clear HENT: Yes: Atraumatic Neck: Yes: Supple Cardiovascular: Yes: S1, S2 Respiratory: Yes: CTA Bilaterally Gastrointestinal: Yes: Normal Bowel Sounds, Soft Genitourinary: Yes: WNL Musculoskeletal: Yes: WNL Edema: Yes Edema: LLE: Trace, RLE: Trace Wound/Incision: Yes: Other Psychiatric: Yes: Oriented Labs: CBC, BMP 04/11/19 07:10 04/11/19 07:10 INR, PTT INR 1.04 (0.83-1.09) 04/02/19 19:00 Problem List - Problems (1) Cellulitis of left lower extremity Code(s): L03.116 - CELLULITIS OF LEFT LOWER LIMB (2) End stage renal disease on dialysis Code(s): N18.6 - END STAGE RENAL DISEASE; Z99.2 - DEPENDENCE ON RENAL DIALYSIS Assessment/Plan Current Medications Generic Name Dose Route Start Last Admin Trade Name Frereshma PRN Reason Stop Dose Admin Acetaminophen 650 mg 04/09/19 15:09 04/11/19 20:24 Tylenol - PO 650 mg Q6H PRN Administration PAIN LEVEL 1 - 3 Baclofen 10 mg 04/09/19 22:00 04/10/19 22:52 Lioresal - PO 10 mg HS [facility] Administration Bisacodyl 5 mg 04/10/19 10:00 04/11/19 09:30 Dulcolax - PO 5 mg DAILY [facility] Administration Buspirone HCl 10 mg 04/09/19 22:00 04/11/19 12:32 Buspar - PO 10 mg BID [facility] Administration Calcium Acetate 667 mg 04/09/19 17:30 04/11/19 16:45 Phoslo - PO 667 mg TIDCM [facility] Administration Carvedilol 25 mg 04/09/19 22:00 04/11/19 09:30 Coreg - PO 25 mg BID [facility] Administration Docusate Sodium 300 mg 04/09/19 22:00 04/10/19 22:51 Colace - PO 300 mg HS [facility] Administration Famotidine 20 mg 04/10/19 10:00 04/11/19 09:27 Pepcid - PO 20 mg DAILY [facility] Administration Heparin Sodium (Porcine) 5,000 unit 04/09/19 22:00 04/11/19 15:07 Heparin - SQ 5,000 unit TID [facility] Administration Hydralazine HCl 100 mg 04/09/19 22:00 04/11/19 15:05 Apresoline - PO 100 mg TID [facility] Administration Cefazolin Sodium 1 gm/ 50 mls @ 100 mls/hr 04/10/19 10:00 04/11/19 09:27 Dextrose IVPB 100 mls/hr DAILY [facility] Administration Insulin Aspart 1 vial 04/09/19 16:30 04/11/19 16:45 Novolog Vial Sliding Scale - SQ Not Given ACHS [facility] Protocol Insulin Detemir 30 units 04/09/19 22:00 04/10/19 23:01 Levemir Vial SQ 30 units HS [facility] Administration Insulin Detemir 35 units 04/10/19 07:00 04/11/19 06:27 Levemir Vial SQ 35 unit 0700 [facility] Administration Losartan Potassium 100 mg 04/09/19 16:00 04/11/19 09:26 Cozaar - PO 100 mg DAILY [facility] Administration Melatonin 3 mg 04/09/19 22:00 04/10/19 22:52 Melatonin PO 3 mg HS [facility] Administration Metoclopramide HCl 10 mg 04/09/19 16:30 04/11/19 16:45 Reglan - PO 10 mg TIDAC [facility] Administration Metronidazole 500 mg 04/09/19 22:00 04/11/19 15:05 Flagyl - PO 500 mg TID [facility] Administration Nifedipine 90 mg 04/09/19 16:00 04/11/19 09:28 Procardia Xl - PO 90 mg DAILY [facility] Administration Ondansetron HCl 4 mg 04/09/19 15:09 04/10/19 00:49 Zofran Injection IVPB 4 mg Q8H PRN Administration NAUSEA Oxycodone HCl 5 mg 04/09/19 15:09 04/10/19 22:52 Roxicodone - PO 5 mg Q6H PRN Administration PAIN LEVEL 6-10 Pantoprazole Sodium 40 mg 04/09/19 16:00 04/11/19 09:29 Protonix - PO 40 mg DAILY [facility] Administration Senna 2 tab 04/09/19 22:00 04/10/19 22:52 Senna - PO 2 tab HS [facility] Administration Impression 1. ESRD 2. DM 3. HTN 4. gastroparesis 5. nausea 6. anemia 7. peripheral neuropathy 8. foot infection/cellulitis 9. left foot fifth digit amputation Plan - next HD tomorrow - podiatry follow up - wound care - abx per ID - HD time 345 400 abf 2000 heparin bolus [address] Arredondo
[2019-04-11] MEDS ORDERED: INSULIN (NOVOLOG) ASPART 100 UNITS/ML 10ML VIAL ONE (21:26)
[2019-04-11] MEDS: SENNOSIDES 8.6MG TABLET (FP) PO SCH (21:51)
[2019-04-11] MEDS: DOCUSATE SODIUM 100 MG CAPSULE (FP) PO SCH (21:51)
[2019-04-11] MEDS: MELATONIN 1 MG TABLET PO SCH (21:52)
[2019-04-11] MEDS: BACLOFEN 10 MG TABLET (FP) PO SCH (21:54)
[2019-04-12] MEDS ORDERED: LORazepam 0.5 MG TABLET PO ONE (03:53)
[2019-04-12] MEDS: METOCLOPRAMIDE HCL 10 MG TABLET (FP) PO SCH ×3 (06:08→16:49)
[2019-04-12] MEDS: HEPARIN NA (PORCINE) 5,000 UNITS/ML 1ML VIAL SQ SCH ×3 (06:08→22:22)
[2019-04-12] MEDS: hydrALAZINE HCL 50 MG TABLET (FP) PO SCH ×3 (06:08→22:22)
[2019-04-12] MEDS: metroNIDAZOLE 250 MG TABLET PO SCH ×3 (06:08→22:22)
[2019-04-12] MEDS: INSULIN (LEVEMIR) 100 UNITS/ML UNITS SQ SCH ×2 (06:09→22:21)
[2019-04-12] MEDS: INSULIN SLIDING SCALE (NOVOLOG) 1 VIAL SQ SCH ×4 (06:10→22:21)
[2019-04-12] MEDS ORDERED: ceFAZolin SODIUM 1 GM VIAL ONE (08:51)
[2019-04-12] MEDS ORDERED: DEXTROSE 5%-WATER - 50 ML IVPB ONE (08:51)
[2019-04-12] MEDS: CALCIUM ACETATE 667 MG CAPSULE (FP) PO SCH ×3 (09:10→16:49)
[2019-04-12] MEDS: BISACODYL 5 MG TABLET.DR (FP) PO SCH (09:11)
[2019-04-12] MEDS: LOSARTAN POTASSIUM 50 MG TABLET (FP) PO SCH (09:11)
[2019-04-12] MEDS: busPIRone HCL 10 MG TABLET (FP) PO SCH ×2 (09:11→22:22)
[2019-04-12] MEDS: CARVEDILOL 25 MG TABLET (FP) PO SCH ×2 (09:11→22:22)
[2019-04-12] MEDS: CEFAZOLIN 1 GM in DEXTROSE 5%-WATER - 50 ML IVPB SCH (09:11)
[2019-04-12] MEDS: FAMOTIDINE 20 MG TABLET PO SCH (09:12)
[2019-04-12] MEDS: PANTOPRAZOLE 40 MG TABLET (FP) PO SCH (09:12)
[2019-04-12] MEDS: NIFEdipine E.R. 90 MG TABLET (FP) PO SCH (09:12)
[2019-04-12] MEDS ORDERED: HEPARIN NA (PORCINE) 5,000 UNITS/ML 1ML VIAL IVPUSH ONE (10:30)
[2019-04-12] MEDS ORDERED: SODIUM CHLORIDE 250 ML IV PRN ×2 (10:30→16:13)
--- NOTE | 2019-04-12 10:50 | PN ---
Progress Note (short form) - Note Progress Note: s/p fifth toe amputation 04/09 reports bleeding after walking yesterday Vital Signs Period Temp Pulse Resp BP Sys/Rivera Pulse Ox Last 24 Hr 97.6 F-98.3 F 73-81 18-20 144-160/66-79 98-99 cor-rrr lungs clear abd soft, nt ext- ulcer is clean, dried blood on dressing _sutures Microbiology 04/06/19 14:35 Blood - Peripheral Venous Blood Culture - Final NO GROWTH AFTER 5 DAYS INCUBATION 04/06/19 14:39 Blood - Peripheral Venous Blood Culture - Final NO GROWTH AFTER 5 DAYS INCUBATION 04/09/19 17:00 Bone Gram Stain - Final 04/09/19 17:00 Bone Tissue Culture - Preliminary NO AEROBIC GROWTH, 24 HRS 04/09/19 17:00 Toe - Left Fifth Gram Stain - Final 04/09/19 17:00 Toe - Left Fifth Wound Culture - Preliminary NO GROWTH OBTAINED AFTER 24 HOURS INCUBATION, REINCUBATED. 04/02/19 20:00 Blood - Peripheral Venous Blood Culture - Final NO GROWTH AFTER 5 DAYS INCUBATION 04/02/19 20:00 Blood - Peripheral Venous Blood Culture - Final NO GROWTH AFTER 5 DAYS INCUBATION 04/02/19 19:20 Toe - Left Fifth Gram Stain - Final 04/02/19 19:20 Toe - Left Fifth Wound Culture - Final Staphylococcus Aureus Strep Agalactiae Group B imp/reccd pod #3 for toe amputation diabetic foot infection- osteomyelitis by MRI with clinical abscess of the toe with purulent drainage noted-s/p amputation of the toe- cultures and pathology pending spoke to pathology will not be back until Monday can continue cefazolin plan to switch to cefazolin with HD when results are back esrd/hd f/u esr/crp with HD Problem List - Problems (1) Diabetic infection of left foot Code(s): E11.628 - TYPE 2 DIABETES MELLITUS WITH OTHER SKIN COMPLICATIONS; L08.9 - LOCAL INFECTION OF THE SKIN AND SUBCUTANEOUS TISSUE, UNSP (2) End stage renal disease on dialysis Code(s): N18.6 - END STAGE RENAL DISEASE; Z99.2 - DEPENDENCE ON RENAL DIALYSIS
[2019-04-12 10:59] LABS: HEMATOCRIT 24.7 % (32.4-45.2); HEMOGLOBIN 8.1 GM/dL (10.7-15.3); MCH 31.5 pg (25.7-33.7); MCHC 32.9 g/dl (32.0-36.0); MEAN CELL VOLUME 95.8 fl (80-96); MEAN PLT VOLUME 8.5 fl (7.5-11.1); PLATELET COUNT 428 K/MM3 (134-434); RBC 2.58 M/mm3 (3.60-5.2); RDW 14.6 % (11.6-15.6); WHITE BLOOD COUNT 7.5 K/mm3 (4.0-10.0)
[2019-04-12 11:36] LABS: BLOOD UREA NITROGEN 44.7 mg/dL (7-18); CALCIUM 8.6 mg/dL (8.5-10.1); POTASSIUM 3.8 mmol/L (3.5-5.1)
[2019-04-12 11:49] LABS: ERYTHROCYTE SEDIMENTATION RATE 105 mm/hr (0-30)
[2019-04-12] MEDS ORDERED: EPOETIN ALFA 2,000 UNIT/1 ML VIAL IVPUSH ONE (12:00)
[2019-04-12] MEDS: HEPARIN NA (PORCINE) 5,000 UNITS/ML 1ML VIAL IVPUSH SCH ×2 (14:20→14:21)
--- NOTE | 2019-04-12 14:28 | CON.PSY ---
Psychiatry Consult Chief Complaint: I am very anxious and fearful that the Gangrene is going to spread all over my body.. I am scared. I dont vhave any psych isswues. Symptoms: reports: Anxiety, Panic Attacks - Previous Psychiatric Treatment Outpatient: None Inpatient: None - Previous Substance Abuse Treatment Outpatient: None Inpatient: None - Current Medications Current Medications: Active Medications Acetaminophen (Tylenol -) 650 mg PO Q6H PRN PRN Reason: PAIN LEVEL 1 - 3 Last Admin: 04/11/19 20:24 Dose: 650 mg Baclofen (Lioresal -) 10 mg PO HS [facility] Last Admin: 04/11/19 21:54 Dose: 10 mg Bisacodyl (Dulcolax -) 5 mg PO DAILY [facility] Last Admin: 04/12/19 09:11 Dose: 5 mg Buspirone HCl (Buspar -) 10 mg PO BID [facility] Last Admin: 04/12/19 09:11 Dose: 10 mg Calcium Acetate (Phoslo -) 667 mg PO TIDCM [facility] Last Admin: 04/12/19 12:13 Dose: Not Given Carvedilol (Coreg -) 25 mg PO BID [facility] Last Admin: 04/12/19 09:11 Dose: 25 mg Docusate Sodium (Colace -) 300 mg PO HS [facility] Last Admin: 04/11/19 21:51 Dose: 300 mg Famotidine (Pepcid -) 20 mg PO DAILY [facility] Last Admin: 04/12/19 09:12 Dose: 20 mg Heparin Sodium (Porcine) (Heparin -) 5,000 unit SQ TID [facility] Last Admin: 04/12/19 06:08 Dose: 5,000 unit Hydralazine HCl (Apresoline -) 100 mg PO TID [facility] Last Admin: 04/12/19 06:08 Dose: 100 mg Insulin Aspart (Novolog Vial Sliding Scale -) 1 vial SQ [facility]; Protocol Last Admin: 04/12/19 11:43 Dose: Not Given Insulin Detemir (Levemir Vial) 30 units SQ [facility] Last Admin: 04/11/19 21:54 Dose: 30 units Insulin Detemir (Levemir Vial) 35 units SQ 0700 [facility] Last Admin: 04/12/19 06:09 Dose: 35 unit Losartan Potassium (Cozaar -) 100 mg PO DAILY [facility] Last Admin: 04/12/19 09:11 Dose: 100 mg Melatonin (Melatonin) 3 mg PO HS [facility] Last Admin: 04/11/19 21:52 Dose: 3 mg Metoclopramide HCl (Reglan -) 10 mg PO TIDAC [facility] Last Admin: 04/12/19 11:43 Dose: Not Given Metronidazole (Flagyl -) 500 mg PO TID [facility] Last Admin: 04/12/19 06:08 Dose: 500 mg Nifedipine (Procardia Xl -) 90 mg PO DAILY [facility] Last Admin: 04/12/19 09:12 Dose: 90 mg Ondansetron HCl (Zofran Injection) 4 mg IVPB Q8H PRN PRN Reason: NAUSEA Last Admin: 04/10/19 00:49 Dose: 4 mg Oxycodone HCl (Roxicodone -) 5 mg PO Q6H PRN PRN Reason: PAIN LEVEL 6-10 Last Admin: 04/10/19 22:52 Dose: 5 mg Pantoprazole Sodium (Protonix -) 40 mg PO DAILY [facility] Last Admin: 04/12/19 09:12 Dose: 40 mg Senna (Senna -) 2 tab PO [facility] Last Admin: 04/11/19 21:51 Dose: 2 tab - Allergies Allergies: Allergies Allergy/AdvReac Type Severity Reaction Status Date / Time No Known Allergies Allergy Verified 04/02/19 17:46 - Current Living Status Usual Living Arrangement: Alone - Current Mental Status Evaluation Appearance: Disheveled Attitude: Guarded - Affect Affect: Constrictive Appropriateness: Appropriate to Content - Mood Mood: Anxious - Speech/Language Expressive: Coherent - Psychomotor Activity Psychomotor Activity: Hyperactive - Thought Process Thought Process: Intact - Thought Content Hallucinations: Absent Delusions: Absent - Self Perception Self Perception: No Impairment - Cognition Attention: Alert Orientation: Time Memory, Immediate Recall: Intact Memory, Short Term: 2/3 Memory, Remote with Promptin/3 - Concentration Serial Sevens Intact: No Simple Calculations Intact: Yes - Abstraction Proverb Interpretation: Intact Judgement: Intact - Insight Insight: Intact - Impulse Control Impulse Control: Minimally Impaired - Suicidal Ideation Suicidal Ideation: No - Homicidal Ideation Homicidal Ideation: No Assessment/Plan 1) Ativan 1mg po bid for anxiety.
--- NOTE | 2019-04-12 16:13 | PN ---
Progress Note, Physician History of Present Illness: Pt seen and examined at bedside. She is awake and alert. She tolerated HD today. - Current Medication List Current Medications: Active Medications Acetaminophen (Tylenol -) 650 mg PO Q6H PRN PRN Reason: PAIN LEVEL 1 - 3 Last Admin: 04/11/19 20:24 Dose: 650 mg Baclofen (Lioresal -) 10 mg PO [facility] Last Admin: 04/11/19 21:54 Dose: 10 mg Bisacodyl (Dulcolax -) 5 mg PO DAILY [facility] Last Admin: 04/12/19 09:11 Dose: 5 mg Buspirone HCl (Buspar -) 10 mg PO BID [facility] Last Admin: 04/12/19 09:11 Dose: 10 mg Calcium Acetate (Phoslo -) 667 mg PO TIDCM [facility] Last Admin: 04/12/19 12:13 Dose: Not Given Carvedilol (Coreg -) 25 mg PO BID [facility] Last Admin: 04/12/19 09:11 Dose: 25 mg Docusate Sodium (Colace -) 300 mg PO HS [facility] Last Admin: 04/11/19 21:51 Dose: 300 mg Famotidine (Pepcid -) 20 mg PO DAILY [facility] Last Admin: 04/12/19 09:12 Dose: 20 mg Heparin Sodium (Porcine) (Heparin -) 5,000 unit SQ TID [facility] Last Admin: 04/12/19 15:22 Dose: 5,000 unit Hydralazine HCl (Apresoline -) 100 mg PO TID [facility] Last Admin: 04/12/19 15:22 Dose: 100 mg Insulin Aspart (Novolog Vial Sliding Scale -) 1 vial SQ [facility]; Protocol Last Admin: 04/12/19 11:43 Dose: Not Given Insulin Detemir (Levemir Vial) 30 units SQ [facility] Last Admin: 04/11/19 21:54 Dose: 30 units Insulin Detemir (Levemir Vial) 35 units SQ 0700 [facility] Last Admin: 04/12/19 06:09 Dose: 35 unit Lorazepam (Ativan -) 1 mg PO BID [facility] Losartan Potassium (Cozaar -) 100 mg PO DAILY [facility] Last Admin: 04/12/19 09:11 Dose: 100 mg Melatonin (Melatonin) 3 mg PO [facility] Last Admin: 04/11/19 21:52 Dose: 3 mg Metoclopramide HCl (Reglan -) 10 mg PO TIDAC [facility] Last Admin: 04/12/19 11:43 Dose: Not Given Metronidazole (Flagyl -) 500 mg PO TID [facility] Last Admin: 04/12/19 15:22 Dose: 500 mg Nifedipine (Procardia Xl -) 90 mg PO DAILY [facility] Last Admin: 04/12/19 09:12 Dose: 90 mg Ondansetron HCl (Zofran Injection) 4 mg IVPB Q8H PRN PRN Reason: NAUSEA Last Admin: 04/10/19 00:49 Dose: 4 mg Pantoprazole Sodium (Protonix -) 40 mg PO DAILY [facility] Last Admin: 04/12/19 09:12 Dose: 40 mg Senna (Senna -) 2 tab PO HS [facility] Last Admin: 04/11/19 21:51 Dose: 2 tab - Objective Vital Signs: Vital Signs Temperature 98.4 F 04/12/19 10:20 Pulse Rate 69 04/12/19 14:52 Respiratory Rate 18 04/12/19 14:52 Blood Pressure 143/70 04/12/19 14:52 O2 Sat by Pulse Oximetry (%) 98 04/12/19 08:35 Constitutional: Yes: Calm Eyes: Yes: Conjunctiva Clear HENT: Yes: Atraumatic Cardiovascular: Yes: S1, S2 Respiratory: Yes: CTA Bilaterally Gastrointestinal: Yes: Normal Bowel Sounds, Soft Genitourinary: Yes: WNL Musculoskeletal: Yes: WNL Edema: No Wound/Incision: Yes: Dressing Dry and Intact Neurological: Yes: Oriented Psychiatric: Yes: Oriented Labs: CBC, BMP 04/12/19 10:30 04/12/19 10:30 INR, PTT INR 1.04 (0.83-1.09) 04/02/19 19:00 Problem List - Problems (1) Cellulitis of left lower extremity Code(s): L03.116 - CELLULITIS OF LEFT LOWER LIMB (2) End stage renal disease on dialysis Code(s): N18.6 - END STAGE RENAL DISEASE; Z99.2 - DEPENDENCE ON RENAL DIALYSIS Assessment/Plan Current Medications Generic Name Dose Route Start Last Admin Trade Name Freq PRN Reason Stop Dose Admin Acetaminophen 650 mg 04/09/19 15:09 04/11/19 20:24 Tylenol - PO 650 mg Q6H PRN Administration PAIN LEVEL 1 - 3 Baclofen 10 mg 12/17/19 22:00 04/11/19 21:54 Lioresal - PO 10 mg HS [facility] Administration Bisacodyl 5 mg 04/10/19 10:00 04/12/19 09:11 Dulcolax - PO 5 mg DAILY [facility] Administration Buspirone HCl 10 mg 04/09/19 22:00 04/12/19 09:11 Buspar - PO 10 mg BID [facility] Administration Calcium Acetate 667 mg 04/09/19 17:30 04/12/19 12:13 Phoslo - PO Not Given TIDCM [facility] Carvedilol 25 mg 04/09/19 22:00 04/12/19 09:11 Coreg - PO 25 mg BID [facility] Administration Docusate Sodium 300 mg 04/09/19 22:00 04/11/19 21:51 Colace - PO 300 mg HS [facility] Administration Famotidine 20 mg 04/10/19 10:00 04/12/19 09:12 Pepcid - PO 20 mg DAILY [facility] Administration Heparin Sodium (Porcine) 5,000 unit 04/09/19 22:00 04/12/19 15:22 Heparin - SQ 5,000 unit TID [facility] Administration Hydralazine HCl 100 mg 04/09/19 22:00 04/12/19 15:22 Apresoline - PO 100 mg TID [facility] Administration Insulin Aspart 1 vial 04/09/19 16:30 04/12/19 11:43 Novolog Vial Sliding Scale - SQ Not Given ACHS [facility] Protocol Insulin Detemir 30 units 04/09/19 22:00 04/11/19 21:54 Levemir Vial SQ 30 units HS [facility] Administration Insulin Detemir 35 units 04/10/19 07:00 04/12/19 06:09 Levemir Vial SQ 35 unit 0700 [facility] Administration Lorazepam 1 mg 04/12/19 22:00 Ativan - PO BID [facility] Losartan Potassium 100 mg 04/09/19 16:00 04/12/19 09:11 Cozaar - PO 100 mg DAILY [facility] Administration Melatonin 3 mg 04/09/19 22:00 04/11/19 21:52 Melatonin PO 3 mg HS [facility] Administration Metoclopramide HCl 10 mg 04/09/19 16:30 04/12/19 11:43 Reglan - PO Not Given TIDAC [facility] Metronidazole 500 mg 04/09/19 22:00 04/12/19 15:22 Flagyl - PO 500 mg TID [facility] Administration Nifedipine 90 mg 04/09/19 16:00 04/12/19 09:12 Procardia Xl - PO 90 mg DAILY [facility] Administration Ondansetron HCl 4 mg 04/09/19 15:09 04/10/19 00:49 Zofran Injection IVPB 4 mg Q8H PRN Administration NAUSEA Pantoprazole Sodium 40 mg 04/09/19 16:00 04/12/19 09:12 Protonix - PO 40 mg DAILY [facility] Administration Senna 2 tab 04/09/19 22:00 04/11/19 21:51 Senna - PO 2 tab HS [facility] Administration Impression 1. ESRD 2. DM 3. HTN 4. gastroparesis 5. nausea 6. anemia 7. peripheral neuropathy 8. foot infection/cellulitis 9. left foot fifth digit amputation Plan - HD today - next HD Monday (holiday schedule) - cont wound care - abx per ID - HD time 345 400 abf 2000 heparin bolus [address] Arredondo
[2019-04-12] MEDS: ACETAMINOPHEN 325 MG TABLET (FP) PO PRN (17:38)
--- NOTE | 2019-04-12 17:52 | PATH ---
Surgical Pathology Report Patient Name: ANA LUISA CONNOLLY Med. Rec. #: [id number] /Age/Gender: 1965 (Age: 53) / F Account: [id number] Location: [facility] MED/SURG Taken: 04/09/2019 Received: 04/10/2019 Reported: 04/12/2019 Physicians: Jose Maria Stroud DPM Specimen(s) Received A: LEFT 5TH TOE B: PROXIMAL BONE,LEFT 5TH TOE Clinical History Gangrene, osteomyelitis left fifth toe Final Diagnosis A. LEFT FIFTH TOE, AMPUTATION: PORTION OF TOE SHOWING GANGRENOUS NECROSIS WITH ABSCESS FORMATION INVOLVING SKIN AND SUBCUTANEOUS SOFT TISSUE MARGIN. BONE WITH ACUTE OSTEOMYELITIS. ACUTE AND CHRONIC OSTEOMYELITIS PRESENT AT THE BONE MARGIN. B. PROXIMAL BONE, LEFT FIFTH TOE, EXCISION: PORTION OF BONE WITH FOCAL ACUTE AND CHRONIC OSTEOMYELITIS. ADJACENT FIBROUS TISSUE WITH FOCAL ACUTE INFLAMMATION. Electronically Signed Wong Alonzo M.D. Gross Description A. Received in formalin labeled "left fifth toe," is a 4.8 x 3.0 x 1.6 cm toe amputation. The entire epidermal surface displays a black green, ulcerated lesion involving the skin and soft tissue margin. The lesion extends to and involves the underlying bone. [employer] sections are submitted in 3 cassettes as follows: 1-lesion with underlying bone, following decalcification; 2-bone margin, following decalcification; 3-skin and soft tissue margin. B. Received in formalin labeled "proximal bone left fifth toe," is a 1.2 x 1.1 x 1.1 cm masterson-yellow portion of bone. A medical field representative full-thickness section is submitted in one cassette, following decalcification. 04/11/201904/11/2019
--- NOTE | 2019-04-12 18:35 | PN ---
Progress Note (short form) - Note Progress Note: Hospitalist Medicine C/o discomfort in L foot and bleeding. Also worried that her "legs are changing colors from gangrene." Emotional support given Vitals 04/12/19 14:52 Pulse Rate 69 Respiratory 18 Rate Blood Pressure 143/70 Physical Exam general: resting in bed, anxious HEENT: NCAT, PERRLA cardio: +tachy rate. no r/m/g pulm: CTA b/l abdomen: obese, nontender, nondistended LE: 1+ pulses LLE. dressing w/ blood. sutures intact Laboratory Tests 04/12/19 04/12/19 10:30 10:30 WBC 7.5 Hgb 8.1 L Hct 24.7 L Plt Count 428 Sodium 135 L Potassium 3.8 Chloride 99 Carbon Dioxide 27 BUN 44.7 H Creatinine 7.0 H Random Glucose 70 L Calcium 8.6 C-Reactive Protein 2.9 H Microbiology 04/09/19 17:00 Toe - Left Fifth Gram Stain - Final 04/09/19 17:00 Bone Gram Stain - Final 04/09/19 17:00 Bone Anaerobic Culture - Final NO GROWTH OF AEROBIC ORGANISMS AFTER 48 HOURS INCUBATION NO ANAEROBES WERE ISOLATED 04/06/19 14:39 Blood - Peripheral Venous Blood Culture - Final NO GROWTH AFTER 5 DAYS INCUBATION 04/06/19 14:35 Blood - Peripheral Venous Blood Culture - Final NO GROWTH AFTER 5 DAYS INCUBATION 04/02/19 20:00 Blood - Peripheral Venous Blood Culture - Final NO GROWTH AFTER 5 DAYS INCUBATION 04/02/19 20:00 Blood - Peripheral Venous Blood Culture - Final NO GROWTH AFTER 5 DAYS INCUBATION 04/02/19 19:20 Toe - Left Fifth Gram Stain - Final 04/02/19 19:20 Toe - Left Fifth Wound Culture - Final Staphylococcus Aureus Strep Agalactiae Group B 04/09/19 17:00 Toe - Left Fifth Wound Culture - Preliminary Imaging 04/02/19 CXR: no active pulm dz . cardiomegaly, lungs well aerated 04/02/19: L foot XR: no subcutnaeous emphysema, no definite signs of osteomyelitis 04/02/19: MRI LE w/o contrast: cellulitis of the foot. no soft tissue abscess. osteo of 5th toe involving the phalanges w suspicion of osteo of head of fifth metatarsal 04/05/19: CTA w/ runoff: infrapopliteal dz. multifocal high grade stenoses vs short segmental occlusions in the right TP trunk, TAPE WEAVER and peroneal artery w reconstitution of flow in plantar artery. predominant flow to the R foot via the JOSEFINA with patent dp artery. occluded L peroneal artery. multifocal dz in L TAPE WEAVER with multifocal high grade stenoses. patent L josefina with focal high grade stenosis in range of 70-90% of the distal JOSEFINA with patent proximal dp artery which occludes at the level of the midfoot. focal mid R SFA moderate stenosis in the range of 50-70%. nonobstructing right renal stones. prominent CBD 7mm; nonspecific. bilateral adrenal gland hyperplasia. 1.6cm right and 2.5cm left adnexal cyst. Assessment/Plan 53 year old woman with a history of ESRD, HTN, type 2 DM, GERD, gastroparesis, neuropathy, anxiety, depression who presented to the ED with left foot pain. Found to have osteomyelitis of the L fifth toe. s/p amputation. #L 5th toe osteomyelitis, s/p amputation -toe gram stain, cx: staph aureus, strep B -currently on flagyl (04/06) -will switch to cefazolin w/ HD when path results return per ID -cx (-) thus far , awaiting path . -c/w wound care -on roxicodone 5mg PO q6h PRN, tylenol PRN for pain -cont bowel regimen; senna, colace, dulcolax -per podiatry, partial weight bearing L heel, surgical shoe -ID on board: Dr. Downing -Podiatry: Dr. Stroud -Vascular: Dr. Mcclain #ESRD on HD -next HD is 04/14 -follow ESR, CRP w/ dialysis -c/w phoslo -Nephro: Dr. Arredondo #IDDM w/ gastroparesis, diabetic neuropathy -c/w levemir 30u sq HS, 35u in AM -ISS, BGM ACHS -maintain controlled BGM < 180 to aid wound healing -c/w reglan #Anxiety -seen by psych, started on ativan 1mg PO BID -c/w buspar -on melatonin #HTN -c/w coreg, hydralazine, procardia, losartan #PPX DVT: on hep 5k sq tid GI: on protonix #F/E/N no IVF at this time continue to follow lytes renal diet #Dispo monitoring on med-surg pending path <MalinaHermelinda - Last Filed: 04/12/19 18:26> - Note Progress Note: Seen and examined; please refer to resident note for further historical information. I agree with the aforementioned assessment and plan and historical information aside from as supplemented by myself. Independently verified all peña exam findings and diagnostics. I discussed the case at length with the resident and agree with the plan as outlined. Potential hallucinations; FU with psych. 10 sys ROS done and negative aside from HPI VS, labs, imaging reviewed NAD AAO resting in bed NC AT EOMI PERRLA HR wnl, s1/2+ NT ND +BS CN2-12 wnl, no fnd Normal mood, appropriate behavior. Not psychotic appearing but did endorse legs changing color with gangrene? Patient presents with DM ulcer with underlying OM/cellulitis and gangrene of the L-fifth digit with underlying PAD. HD per nephro, lytes stable. Doing well postop but now with potential psych concern (hallucination vs. acute exacerbation on preexisting depression/anxiety). She doesn't appear psychotic and denies SI and HI. Psych consulted; abx continued per Id. Continuing wound care and DC planning. -DM ulcer with underlying OM/cellulitis and gangrene (s/p 04/09 amputation 5th digit) - ESRD on HD - HTN - Continue Procardia XL, Coreg, Cozaar, Hydralazine - Type 2 DM; Continue Levemir, Novolog with SSI. Suboptimal coverage and this contributed to her presenting illness. Continue to monitor fsg. - Diabetic peripheral neuropathy. Can uptitrate meds as needed given persisting neuropathic symptoms. - Diabetic gastroparesis - GERD (determiine why on H2 jarret and PPI prior to DC?) - Depression with anxiety - Continue BuSpar - Anemia secondary to chronic illness/CKD - Procrit with HD <Jovani Hernandez - Last Filed: 04/13/19 04:27>
[2019-04-12] MEDS ORDERED: PT OWN MED DRAWER 7, Y5N ONE (20:49)
[2019-04-12] MEDS: LORazepam 1 MG TABLET PO SCH (22:22)
[2019-04-12] MEDS: BACLOFEN 10 MG TABLET (FP) PO SCH (22:22)
[2019-04-12] MEDS: DOCUSATE SODIUM 100 MG CAPSULE (FP) PO SCH (22:22)
[2019-04-12] MEDS: SENNOSIDES 8.6MG TABLET (FP) PO SCH (22:22)
[2019-04-12] MEDS: MELATONIN 1 MG TABLET PO SCH (23:31)
[2019-04-13] MEDS: INSULIN SLIDING SCALE (NOVOLOG) 1 VIAL SQ SCH ×4 (06:40→21:36)
[2019-04-13] MEDS: hydrALAZINE HCL 50 MG TABLET (FP) PO SCH ×3 (06:40→21:34)
[2019-04-13] MEDS: metroNIDAZOLE 250 MG TABLET PO SCH ×3 (06:40→21:33)
[2019-04-13] MEDS: METOCLOPRAMIDE HCL 10 MG TABLET (FP) PO SCH ×4 (06:40→18:06)
[2019-04-13] MEDS: INSULIN (LEVEMIR) 100 UNITS/ML UNITS SQ SCH ×2 (06:40→21:35)
[2019-04-13] MEDS: HEPARIN NA (PORCINE) 5,000 UNITS/ML 1ML VIAL SQ SCH ×3 (06:40→21:34)
[2019-04-13 09:09] LABS: BASO % 1.1 % (0-2.0); EOS % 2.1 % (0-4.5); HEMATOCRIT 26.7 % (32.4-45.2); HEMOGLOBIN 8.8 GM/dL (10.7-15.3); LYMPH % 19.9 % (8-40); MEAN PLT VOLUME 8.5 fl (7.5-11.1); MONO % 15.7 % (3.8-10.2); NEUT % 61.2 % (42.8-82.8); PLATELET COUNT 434 K/MM3 (134-434); RBC 2.76 M/mm3 (3.60-5.2); RDW 14.7 % (11.6-15.6); WHITE BLOOD COUNT 7.7 K/mm3 (4.0-10.0)
[2019-04-13] MEDS: FAMOTIDINE 20 MG TABLET PO SCH (09:19)
[2019-04-13] MEDS: ACETAMINOPHEN 325 MG TABLET (FP) PO PRN ×2 (09:19→19:11)
[2019-04-13 09:20] LABS: BLOOD UREA NITROGEN 35.6 mg/dL (7-18); CALCIUM 8.9 mg/dL (8.5-10.1); MAGNESIUM 2.5 mg/dL (1.8-2.4); POTASSIUM 4.2 mmol/L (3.5-5.1)
[2019-04-13] MEDS: CARVEDILOL 25 MG TABLET (FP) PO SCH ×2 (09:20→21:34)
[2019-04-13] MEDS: CALCIUM ACETATE 667 MG CAPSULE (FP) PO SCH ×4 (09:20→19:07)
[2019-04-13] MEDS: LOSARTAN POTASSIUM 50 MG TABLET (FP) PO SCH (09:20)
[2019-04-13] MEDS: LORazepam 1 MG TABLET PO SCH ×2 (09:21→21:34)
[2019-04-13] MEDS: NIFEdipine E.R. 90 MG TABLET (FP) PO SCH (09:21)
[2019-04-13] MEDS: PANTOPRAZOLE 40 MG TABLET (FP) PO SCH (09:21)
[2019-04-13] MEDS: BISACODYL 5 MG TABLET.DR (FP) PO SCH (09:22)
[2019-04-13] MEDS ORDERED: PT OWN MED DRAWER 7, Y5N ONE (09:44)
[2019-04-13] MEDS: busPIRone HCL 10 MG TABLET (FP) PO SCH ×2 (09:46→21:34)
[2019-04-13 12:04] LABS: ANISOCYTOSIS 1+; MACROCYTOSIS 0; PLATELET ESTIMATE NORMAL
--- NOTE | 2019-04-13 12:15 | PN ---
Progress Note, Physician Chief Complaint: feeling slightly sob, othrwise no pain, doing well, except feels sob off and on , - Current Medication List Current Medications: Active Medications Acetaminophen (Tylenol -) 650 mg PO Q6H PRN PRN Reason: PAIN LEVEL 1 - 3 Last Admin: 04/13/19 09:19 Dose: 650 mg Albuterol/Ipratropium (Duoneb -) 1 amp NEB Q6H PRN PRN Reason: SHORTNESS OF BREATH Baclofen (Lioresal -) 10 mg PO HS [facility] Last Admin: 04/12/19 22:22 Dose: 10 mg Bisacodyl (Dulcolax -) 5 mg PO DAILY [facility] Last Admin: 04/13/19 09:22 Dose: 5 mg Buspirone HCl (Buspar -) 10 mg PO BID [facility] Last Admin: 04/13/19 09:46 Dose: 10 mg Calcium Acetate (Phoslo -) 667 mg PO TIDCM [facility] Last Admin: 04/13/19 09:20 Dose: 667 mg Carvedilol (Coreg -) 25 mg PO BID [facility] Last Admin: 04/13/19 09:20 Dose: 25 mg Docusate Sodium (Colace -) 300 mg PO [facility] Last Admin: 04/12/19 22:22 Dose: 300 mg Epoetin Jaya (Epogen -) 8,000 unit IVPUSH ONCE ONE Stop: 04/14/19 16:14 Famotidine (Pepcid -) 20 mg PO DAILY [facility] Last Admin: 04/13/19 09:19 Dose: 20 mg Heparin Sodium (Porcine) (Heparin -) 5,000 unit SQ TID [facility] Last Admin: 04/13/19 06:40 Dose: 5,000 unit Heparin Sodium (Porcine) (Heparin -) 2,000 unit IVPUSH ONCE ONE Stop: 04/14/19 16:14 Heparin Sodium (Porcine) (Heparin -) 500 unit IVPUSH Q1H [facility] Stop: 04/14/19 18:16 Hydralazine HCl (Apresoline -) 100 mg PO TID [facility] Last Admin: 04/13/19 06:40 Dose: 100 mg Sodium Chloride (Normal Saline -) 250 mls @ 3,000 mls/hr IV PRN PRN PRN Reason: Hypotension during Dialysis Stop: 04/13/19 16:13 Insulin Aspart (Novolog Vial Sliding Scale -) 1 vial SQ [facility]; Protocol Last Admin: 04/13/19 06:40 Dose: Not Given Insulin Detemir (Levemir Vial) 30 units SQ HS [facility] Last Admin: 04/12/19 22:21 Dose: 30 units Insulin Detemir (Levemir Vial) 35 units SQ 0700 [facility] Last Admin: 04/13/19 06:40 Dose: Not Given Lorazepam (Ativan -) 1 mg PO BID [facility] Last Admin: 04/13/19 09:21 Dose: 1 mg Losartan Potassium (Cozaar -) 100 mg PO DAILY [facility] Last Admin: 04/13/19 09:20 Dose: 100 mg Melatonin (Melatonin) 3 mg PO HS [facility] Last Admin: 04/12/19 23:31 Dose: 3 mg Metoclopramide HCl (Reglan -) 10 mg PO TIDAC [facility] Last Admin: 04/13/19 06:40 Dose: 10 mg Metronidazole (Flagyl -) 500 mg PO TID [facility] Last Admin: 04/13/19 06:40 Dose: 500 mg Nifedipine (Procardia Xl -) 90 mg PO DAILY [facility] Last Admin: 04/13/19 09:21 Dose: 90 mg Ondansetron HCl (Zofran Injection) 4 mg IVPB Q8H PRN PRN Reason: NAUSEA Last Admin: 04/10/19 00:49 Dose: 4 mg Pantoprazole Sodium (Protonix -) 40 mg PO DAILY [facility] Last Admin: 04/13/19 09:21 Dose: 40 mg Senna (Senna -) 2 tab PO [facility] Last Admin: 04/12/19 22:22 Dose: 2 tab - Objective Vital Signs: Vital Signs Temperature 98.6 F 04/13/19 06:32 Pulse Rate 76 04/13/19 06:32 Respiratory Rate 20 04/13/19 07:46 Blood Pressure 158/74 04/13/19 06:32 O2 Sat by Pulse Oximetry (%) 98 04/13/19 07:46 Constitutional: Yes: Well Nourished, Calm Eyes: Yes: EOM Intact HENT: Yes: Normocephalic Neck: Yes: Supple, Trachea Midline Cardiovascular: Yes: Regular Rate and Rhythm Respiratory: Yes: Regular, CTA Bilaterally Gastrointestinal: Yes: Normal Bowel Sounds Extremities: Yes: Amputation (L little toe, with sutures, clean wound, and no dc , no swelling,), Other Edema: No ...Motor Strength: WNL Labs: CBC, BMP 04/13/19 06:55 04/13/19 06:55 INR, PTT INR 1.04 (0.83-1.09) 04/02/19 19:00 Impression/Plan Impression/Plan: Assessment/Plan 53 year old woman with a history of ESRD, HTN, type 2 DM, GERD, gastroparesis, neuropathy, anxiety, depression who presented to the ED with left foot pain. Found to have osteomyelitis of the L fifth toe. s/p amputation. #L 5th toe osteomyelitis, s/p amputation on 04/09/19. -toe gram stain, cx: staph aureus, strep B -currently on flagyl (04/06) prelim report of wound is negative, -will switch to cefazolin w/ HD as per ID on roxicodone 5mg PO q6h PRN, tylenol PRN for pain -per podiatry, partial weight bearing L heel, surgical shoe #ESRD on HD -next HD is 04/14 -follow ESR, CRP w/ dialysis #IDDM w/ gastroparesis, diabetic neuropathy controlled. -c/w levemir 30u sq HS, 35u in AM -ISS, BGM ACHS -c/w reglan #Anxiety -seen by psych, started on ativan 1mg PO BID -c/w buspar -on melatonin #HTN -c/w coreg, hydralazine, procardia, losartan #PPX DVT: on hep 5k sq tid GI: on protonix Visit type - Emergency Visit Emergency Visit: No - New Patient This patient is new to me today: Yes Date on this admission: 04/13/19 - Critical Care Critical Care patient: No - Discharge Referral Referred to [facility] Med [facility] No
[2019-04-13] MEDS: ALBUTEROL SO4 2.5/IPRATROPIUM 0.5 INH SOL 3 ML VIAL.NEB. NEB PRN ×2 (12:27→22:00)
--- NOTE | 2019-04-13 18:27 | PN ---
Progress Note (short form) - Note Progress Note: 1. ESRD 2. DM 3. HTN 4. gastroparesis 5. nausea 6. anemia 7. peripheral neuropathy 8. foot infection/cellulitis 9. left foot fifth digit amputation Current Medications Acetaminophen (Tylenol -) 650 mg PO Q6H PRN PRN Reason: PAIN LEVEL 1 - 3 Last Admin: 04/13/19 09:19 Dose: 650 mg Albuterol/Ipratropium (Duoneb -) 1 amp NEB Q6H PRN PRN Reason: SHORTNESS OF BREATH Last Admin: 04/13/19 12:27 Dose: 1 amp Baclofen (Lioresal -) 10 mg PO HS [facility] Last Admin: 04/12/19 22:22 Dose: 10 mg Bisacodyl (Dulcolax -) 5 mg PO DAILY [facility] Last Admin: 04/13/19 09:22 Dose: 5 mg Buspirone HCl (Buspar -) 10 mg PO BID [facility] Last Admin: 04/13/19 09:46 Dose: 10 mg Calcium Acetate (Phoslo -) 667 mg PO TIDCM [facility] Last Admin: 04/13/19 13:58 Dose: Not Given Carvedilol (Coreg -) 25 mg PO BID [facility] Last Admin: 04/13/19 09:20 Dose: 25 mg Docusate Sodium (Colace -) 300 mg PO HS [facility] Last Admin: 04/12/19 22:22 Dose: 300 mg Epoetin Jaya (Epogen -) 8,000 unit IVPUSH ONCE ONE Stop: 04/14/19 16:14 Famotidine (Pepcid -) 20 mg PO DAILY [facility] Last Admin: 04/13/19 09:19 Dose: 20 mg Heparin Sodium (Porcine) (Heparin -) 5,000 unit SQ TID [facility] Last Admin: 04/13/19 13:58 Dose: Not Given Heparin Sodium (Porcine) (Heparin -) 2,000 unit IVPUSH ONCE ONE Stop: 04/14/19 16:14 Heparin Sodium (Porcine) (Heparin -) 500 unit IVPUSH Q1H [facility] Stop: 04/14/19 18:16 Hydralazine HCl (Apresoline -) 100 mg PO TID [facility] Last Admin: 04/13/19 15:34 Dose: 100 mg Sodium Chloride (Normal Saline -) 250 mls @ 3,000 mls/hr IV PRN PRN PRN Reason: Hypotension during Dialysis Stop: 04/13/19 16:13 Insulin Aspart (Novolog Vial Sliding Scale -) 1 vial SQ [facility]; Protocol Last Admin: 04/13/19 18:05 Dose: Not Given Insulin Detemir (Levemir Vial) 30 units SQ HS [facility] Last Admin: 04/12/19 22:21 Dose: 30 units Insulin Detemir (Levemir Vial) 35 units SQ 0700 [facility] Last Admin: 04/13/19 06:40 Dose: Not Given Lorazepam (Ativan -) 1 mg PO BID [facility] Last Admin: 04/13/19 09:21 Dose: 1 mg Losartan Potassium (Cozaar -) 100 mg PO DAILY [facility] Last Admin: 04/13/19 09:20 Dose: 100 mg Melatonin (Melatonin) 3 mg PO HS [facility] Last Admin: 04/12/19 23:31 Dose: 3 mg Metoclopramide HCl (Reglan -) 10 mg PO TIDAC [facility] Last Admin: 04/13/19 18:06 Dose: Not Given Metronidazole (Flagyl -) 500 mg PO TID [facility] Last Admin: 04/13/19 15:34 Dose: 500 mg Nifedipine (Procardia Xl -) 90 mg PO DAILY [facility] Last Admin: 04/13/19 09:21 Dose: 90 mg Ondansetron HCl (Zofran Injection) 4 mg IVPB Q8H PRN PRN Reason: NAUSEA Last Admin: 04/10/19 00:49 Dose: 4 mg Pantoprazole Sodium (Protonix -) 40 mg PO DAILY [facility] Last Admin: 04/13/19 09:21 Dose: 40 mg Senna (Senna -) 2 tab PO [facility] Last Admin: 04/12/19 22:22 Dose: 2 tab Last Vital Signs Temp Pulse Resp BP Pulse Ox 98.6 F 76 20 158/74 98 04/13/19 06:32 04/13/19 06:32 04/13/19 07:46 04/13/19 06:32 04/13/19 07:46 lungs clear heart reg abd soft nontender ext no edema CBC, BMP 04/13/19 06:55 04/13/19 06:55 esrd for hd on monday
[2019-04-13] MEDS: BACLOFEN 10 MG TABLET (FP) PO SCH (21:34)
[2019-04-13] MEDS: SENNOSIDES 8.6MG TABLET (FP) PO SCH (21:34)
[2019-04-13] MEDS: DOCUSATE SODIUM 100 MG CAPSULE (FP) PO SCH (21:35)
[2019-04-13] MEDS: MELATONIN 1 MG TABLET PO SCH (22:45)
[2019-04-14] MEDS ORDERED: LORazepam 0.5 MG TABLET PO ONE (04:20)
[2019-04-14] MEDS: ACETAMINOPHEN 325 MG TABLET (FP) PO PRN ×2 (04:31→15:01)
[2019-04-14] MEDS: metroNIDAZOLE 250 MG TABLET PO SCH ×3 (05:10→22:04)
[2019-04-14] MEDS: hydrALAZINE HCL 50 MG TABLET (FP) PO SCH ×3 (05:15→22:04)
[2019-04-14] MEDS: HEPARIN NA (PORCINE) 5,000 UNITS/ML 1ML VIAL SQ SCH ×3 (05:15→22:05)
[2019-04-14] MEDS: METOCLOPRAMIDE HCL 10 MG TABLET (FP) PO SCH ×3 (06:29→17:30)
[2019-04-14] MEDS: INSULIN SLIDING SCALE (NOVOLOG) 1 VIAL SQ SCH ×4 (06:30→22:21)
[2019-04-14] MEDS: INSULIN (LEVEMIR) 100 UNITS/ML UNITS SQ SCH ×2 (06:30→22:21)
[2019-04-14] MEDS ORDERED: HEPARIN NA (PORCINE) 5,000 UNITS/ML 1ML VIAL IVPUSH ONE (07:15)
[2019-04-14] MEDS: HEPARIN NA (PORCINE) 5,000 UNITS/ML 1ML VIAL IVPUSH SCH ×3 (07:35→09:35)
[2019-04-14] MEDS ORDERED: EPOETIN ALFA 2,000 UNIT/1 ML VIAL IVPUSH ONE ×2 (07:45→16:13)
--- NOTE | 2019-04-14 10:54 | PN ---
Progress Note (short form) - Note Progress Note: Complaining of shortness of breath mostly at nighttime when she lies down also she is complaining of wheezing. She is still active smoker she denies any nausea vomiting or chest pressure. Patient wanted take shower so badly. 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 HEENT NAD Supple neck Lungs bilateral expiratory wheeze no bronchial breathing Heart S1-S2 positive loud S4 Abdomen soft nontender extremities negative cyanosis clubbing edema and left foot is in the dressing and wound is oozing Neurologically she is alert and awake and oriented nonfocal. CBC, BMP 04/13/19 06:55 04/13/19 06:55 Assessment and plan 53 year old woman with a history of ESRD, HTN, type 2 DM, GERD, gastroparesis, neuropathy, anxiety, depression who presented to the ED with left foot pain. Found to have osteomyelitis of the L fifth toe. s/p amputation. Shortness of breath. Rule out cause due to COPD or congestive heart failure. She is already on albuterol inhaler as needed. Will order an echocardiogram to look for cardiac function. Also start patient on Spiriva HandiHaler 2 puffs daily. #L 5th toe osteomyelitis, s/p amputation on 04/09/19. -toe gram stain, cx: staph aureus, strep B -currently on flagyl (04/06) prelim report of wound is negative, -will switch to cefazolin w/ HD as per ID on roxicodone 5mg PO q6h PRN, tylenol PRN for pain -per podiatry, partial weight bearing L heel, surgical shoe #ESRD on HD -next HD is 04/14 -follow ESR, CRP w/ dialysis #IDDM w/ gastroparesis, diabetic neuropathy controlled. -c/w levemir 30u sq HS, 35u in AM -ISS, BGM ACHS -c/w reglan #Anxiety -seen by psych, started on ativan 1mg PO BID -c/w buspar -on melatonin #HTN -c/w coreg, hydralazine, procardia, losartan #PPX DVT: on hep 5k sq tid GI: on protonix Visit type - Emergency Visit Emergency Visit: Yes ED Registration Date: 04/02/19 Care time: The patient presented to the Emergency Department on the above date and was hospitalized for further evaluation of their emergent condition. - New Patient This patient is new to me today: Yes Date on this admission: 04/14/19 - Critical Care Critical Care patient: No - Discharge Referral Referred to [facility] Med P.C.: No
[2019-04-14] MEDS ORDERED: PT OWN MED DRAWER 7, Y5N ONE ×2 (11:34→21:50)
[2019-04-14] MEDS: LORazepam 1 MG TABLET PO SCH ×2 (11:51→22:03)
[2019-04-14] MEDS: NIFEdipine E.R. 90 MG TABLET (FP) PO SCH (11:52)
[2019-04-14] MEDS: CARVEDILOL 25 MG TABLET (FP) PO SCH ×2 (11:53→22:04)
[2019-04-14] MEDS: CALCIUM ACETATE 667 MG CAPSULE (FP) PO SCH ×3 (11:53→17:29)
[2019-04-14] MEDS: PANTOPRAZOLE 40 MG TABLET (FP) PO SCH (11:53)
[2019-04-14] MEDS: FAMOTIDINE 20 MG TABLET PO SCH (11:54)
[2019-04-14] MEDS: BISACODYL 5 MG TABLET.DR (FP) PO SCH (11:54)
[2019-04-14] MEDS: LOSARTAN POTASSIUM 50 MG TABLET (FP) PO SCH (11:54)
[2019-04-14] MEDS: busPIRone HCL 10 MG TABLET (FP) PO SCH ×2 (11:55→22:04)
[2019-04-14] MEDS: TIOTROPIUM BROMIDE 2.5 MCG (SPIRIVA) RESPIMAT INHALER IH SCH (11:56)
--- NOTE | 2019-04-14 18:45 | PN ---
Progress Note (short form) - Note Progress Note: 1. ESRD 2. DM 3. HTN 4. gastroparesis 5. nausea 6. anemia 7. peripheral neuropathy 8. foot infection/cellulitis 9. left foot fifth digit amputation Current Medications Acetaminophen (Tylenol -) 650 mg PO Q6H PRN PRN Reason: PAIN LEVEL 1 - 3 Last Admin: 04/14/19 15:01 Dose: 650 mg Albuterol/Ipratropium (Duoneb -) 1 amp NEB Q6H PRN PRN Reason: SHORTNESS OF BREATH Last Admin: 04/13/19 22:00 Dose: 1 amp Baclofen (Lioresal -) 10 mg PO [facility] Last Admin: 04/13/19 21:34 Dose: 10 mg Bisacodyl (Dulcolax -) 5 mg PO DAILY [facility] Last Admin: 04/14/19 11:54 Dose: 5 mg Buspirone HCl (Buspar -) 10 mg PO BID [facility] Last Admin: 04/14/19 11:55 Dose: 10 mg Calcium Acetate (Phoslo -) 667 mg PO TIDCM [facility] Last Admin: 04/14/19 17:29 Dose: 667 mg Carvedilol (Coreg -) 25 mg PO BID [facility] Last Admin: 04/14/19 11:53 Dose: 25 mg Docusate Sodium (Colace -) 300 mg PO [facility] Last Admin: 04/13/19 21:35 Dose: 300 mg Famotidine (Pepcid -) 20 mg PO DAILY [facility] Last Admin: 04/14/19 11:54 Dose: 20 mg Heparin Sodium (Porcine) (Heparin -) 5,000 unit SQ TID [facility] Last Admin: 04/14/19 14:46 Dose: 5,000 unit Hydralazine HCl (Apresoline -) 100 mg PO TID [facility] Last Admin: 04/14/19 14:45 Dose: 100 mg Sodium Chloride (Normal Saline -) 250 mls @ 3,000 mls/hr IV PRN PRN PRN Reason: Hypotension during Dialysis Stop: 04/15/19 18:40 Insulin Aspart (Novolog Vial Sliding Scale -) 1 vial SQ [facility]; Protocol Last Admin: 04/14/19 17:30 Dose: 2 units Insulin Detemir (Levemir Vial) 30 units SQ [facility] Last Admin: 04/13/19 21:35 Dose: 30 units Insulin Detemir (Levemir Vial) 35 units SQ 0700 [facility] Last Admin: 04/14/19 06:30 Dose: Not Given Lorazepam (Ativan -) 1 mg PO BID [facility] Last Admin: 04/14/19 11:51 Dose: 1 mg Losartan Potassium (Cozaar -) 100 mg PO DAILY [facility] Last Admin: 04/14/19 11:54 Dose: 100 mg Melatonin (Melatonin) 3 mg PO HS [facility] Last Admin: 04/13/19 22:45 Dose: 3 mg Metoclopramide HCl (Reglan -) 10 mg PO TIDAC [facility] Last Admin: 04/14/19 17:30 Dose: 10 mg Metronidazole (Flagyl -) 500 mg PO TID [facility] Last Admin: 04/14/19 14:45 Dose: 500 mg Nifedipine (Procardia Xl -) 90 mg PO DAILY [facility] Last Admin: 04/14/19 11:52 Dose: 90 mg Ondansetron HCl (Zofran Injection) 4 mg IVPB Q8H PRN PRN Reason: NAUSEA Last Admin: 04/10/19 00:49 Dose: 4 mg Pantoprazole Sodium (Protonix -) 40 mg PO DAILY [facility] Last Admin: 04/14/19 11:53 Dose: 40 mg Senna (Senna -) 2 tab PO HS [facility] Last Admin: 04/13/19 21:34 Dose: 2 tab Tiotropium [place] (Spiriva Respimat) 2 puff IH DAILY [facility] Last Admin: 04/14/19 11:56 Dose: 2 puff Last Vital Signs Temp Pulse Resp BP Pulse Ox 98.0 F 77 20 169/76 99 04/14/19 02:08 04/14/19 13:24 04/14/19 13:24 04/14/19 13:24 04/14/19 08:20 lungs clear heart reg abd soft nontender ext no edema CBC, BMP 04/13/19 06:55 04/13/19 06:55 esrd for hd on tomorrow
[2019-04-14] MEDS: SENNOSIDES 8.6MG TABLET (FP) PO SCH (22:04)
[2019-04-14] MEDS: BACLOFEN 10 MG TABLET (FP) PO SCH (22:04)
[2019-04-14] MEDS: MELATONIN 1 MG TABLET PO SCH (22:04)
[2019-04-14] MEDS: DOCUSATE SODIUM 100 MG CAPSULE (FP) PO SCH (22:04)
[2019-04-15] MEDS: metroNIDAZOLE 250 MG TABLET PO SCH ×3 (06:45→22:23)
[2019-04-15] MEDS: METOCLOPRAMIDE HCL 10 MG TABLET (FP) PO SCH ×3 (06:46→17:18)
[2019-04-15] MEDS: HEPARIN NA (PORCINE) 5,000 UNITS/ML 1ML VIAL SQ SCH ×3 (06:46→22:24)
[2019-04-15] MEDS: ACETAMINOPHEN 325 MG TABLET (FP) PO PRN ×2 (06:46→20:06)
[2019-04-15] MEDS: hydrALAZINE HCL 50 MG TABLET (FP) PO SCH ×3 (06:46→22:23)
[2019-04-15] MEDS: INSULIN SLIDING SCALE (NOVOLOG) 1 VIAL SQ SCH ×4 (06:53→22:36)
[2019-04-15] MEDS: INSULIN (LEVEMIR) 100 UNITS/ML UNITS SQ SCH ×2 (07:01→22:35)
[2019-04-15 07:47] LABS: HEMATOCRIT 25.4 % (32.4-45.2); HEMOGLOBIN 8.4 GM/dL (10.7-15.3); MCH 32.2 pg (25.7-33.7); MEAN CELL VOLUME 97.5 fl (80-96); MEAN PLT VOLUME 8.5 fl (7.5-11.1); PLATELET COUNT 380 K/MM3 (134-434); RDW 15.5 % (11.6-15.6); WHITE BLOOD COUNT 6.6 K/mm3 (4.0-10.0)
[2019-04-15] MEDS: LORazepam 1 MG TABLET PO SCH ×2 (09:10→22:26)
[2019-04-15] MEDS: CARVEDILOL 25 MG TABLET (FP) PO SCH ×2 (09:10→22:24)
[2019-04-15] MEDS: BISACODYL 5 MG TABLET.DR (FP) PO SCH (09:10)
[2019-04-15] MEDS: NIFEdipine E.R. 90 MG TABLET (FP) PO SCH (09:10)
[2019-04-15] MEDS: PANTOPRAZOLE 40 MG TABLET (FP) PO SCH (09:10)
[2019-04-15] MEDS: CALCIUM ACETATE 667 MG CAPSULE (FP) PO SCH ×3 (09:10→17:19)
[2019-04-15] MEDS: busPIRone HCL 10 MG TABLET (FP) PO SCH ×2 (09:11→22:26)
[2019-04-15] MEDS: LOSARTAN POTASSIUM 50 MG TABLET (FP) PO SCH (09:11)
[2019-04-15] MEDS: FAMOTIDINE 20 MG TABLET PO SCH (09:12)
[2019-04-15] MEDS: TIOTROPIUM BROMIDE 2.5 MCG (SPIRIVA) RESPIMAT INHALER IH SCH (09:12)
[2019-04-15 09:16] LABS: ALBUMIN 2.8 g/dl (3.4-5.0); BILIRUBIN,TOTAL 0.3 mg/dL (0.2-1); BLOOD UREA NITROGEN 40.8 mg/dL (7-18); CALCIUM 9.1 mg/dL (8.5-10.1); CREATININE 5.2 mg/dL (0.55-1.3); POTASSIUM 4.3 mmol/L (3.5-5.1); TOT PROT 7.1 g/dl (6.4-8.2)
--- NOTE | 2019-04-15 12:48 | PN ---
Teaching Attending Note Name of Resident: Hermelinda Radford ATTENDING PHYSICIAN STATEMENT I saw and evaluated the patient. I reviewed the resident's note and discussed the case with the resident. I agree with the resident's findings and plan as documented. Seen and examined; please see resident note for further discussion. Independently verified all peña historical and PE info as well as diagnostics. 10 sys ROS done and negative aside from HPI Echo 06/2018: mild to mod MR/TR, normal lvef ASSESSMENT AND PLAN: Patient presents for 5th digit OM and is s/p amputation and is on IV abx per ID. Problems include: -SOB over the weekend (echo was ordered by Dr. Brown; reveals: - -DM ulcer with underlying OM/cellulitis and gangrene (s/p 04/09 amputation 5th digit) - ESRD on HD - HTN - Continue Procardia XL, Coreg, Cozaar, Hydralazine - Type 2 DM; Continue Levemir, Novolog with SSI. Suboptimal coverage and this contributed to her presenting illness. Continue to monitor fsg. - Diabetic peripheral neuropathy. Can uptitrate meds as needed given persisting neuropathic symptoms. - Diabetic gastroparesis - GERD (determiine why on H2 jarret and PPI prior to DC?) - Depression with anxiety - Continue BuSpar - Anemia secondary to chronic illness/CKD - Procrit with HD -Mild to mod MR/TR Full Code
--- NOTE | 2019-04-15 15:08 | PN ---
Progress Note, Physician History of Present Illness: Pt seen and examined at bedside. SHe is awake and alert. SHe denies shortness of breath. - Current Medication List Current Medications: Active Medications Acetaminophen (Tylenol -) 650 mg PO Q6H PRN PRN Reason: PAIN LEVEL 1 - 3 Last Admin: 04/15/19 06:46 Dose: 650 mg Albuterol/Ipratropium (Duoneb -) 1 amp NEB Q6H PRN PRN Reason: SHORTNESS OF BREATH Last Admin: 04/13/19 22:00 Dose: 1 amp Baclofen (Lioresal -) [address] [facility] Last Admin: 04/14/19 22:04 Dose: 10 mg Bisacodyl (Dulcolax -) 5 mg PO DAILY [facility] Last Admin: 04/15/19 09:10 Dose: 5 mg Buspirone HCl (Buspar -) 10 mg PO BID [facility] Last Admin: 04/15/19 09:11 Dose: 10 mg Calcium Acetate (Phoslo -) 667 mg PO TIDCM [facility] Last Admin: 04/15/19 11:40 Dose: 667 mg Carvedilol (Coreg -) 25 mg PO BID [facility] Last Admin: 04/15/19 09:10 Dose: 25 mg Docusate Sodium (Colace -) [address] [facility] Last Admin: 04/14/19 22:04 Dose: 300 mg Famotidine (Pepcid -) 20 mg PO DAILY [facility] Last Admin: 04/15/19 09:12 Dose: 20 mg Heparin Sodium (Porcine) (Heparin -) 5,000 unit SQ TID [facility] Last Admin: 04/15/19 14:05 Dose: 5,000 unit Hydralazine HCl (Apresoline -) 100 mg PO TID [facility] Last Admin: 04/15/19 14:05 Dose: 100 mg Sodium Chloride (Normal Saline -) 250 mls @ 3,000 mls/hr IV PRN PRN PRN Reason: Hypotension during Dialysis Stop: 04/15/19 18:40 Insulin Aspart (Novolog Vial Sliding Scale -) 1 vial SQ [facility]; Protocol Last Admin: 04/15/19 11:40 Dose: Not Given Insulin Detemir (Levemir Vial) [address] [facility] Last Admin: 04/14/19 22:21 Dose: 30 units Insulin Detemir (Levemir Vial) 35 units SQ 0700 [facility] Last Admin: 04/15/19 07:01 Dose: 35 unit Lorazepam (Ativan -) 1 mg PO BID [facility] Last Admin: 04/15/19 09:10 Dose: 1 mg Losartan Potassium (Cozaar -) 100 mg PO DAILY [facility] Last Admin: 04/15/19 09:11 Dose: 100 mg Melatonin (Melatonin) 3 mg PO HS [facility] Last Admin: 04/14/19 22:04 Dose: 3 mg Metoclopramide HCl (Reglan -) 10 mg PO TIDAC [facility] Last Admin: 04/15/19 11:40 Dose: 10 mg Metronidazole (Flagyl -) 500 mg PO TID [facility] Last Admin: 04/15/19 14:05 Dose: 500 mg Nifedipine (Procardia Xl -) 90 mg PO DAILY [facility] Last Admin: 04/15/19 09:10 Dose: 90 mg Ondansetron HCl (Zofran Injection) 4 mg IVPB Q8H PRN PRN Reason: NAUSEA Last Admin: 04/10/19 00:49 Dose: 4 mg Pantoprazole Sodium (Protonix -) 40 mg PO DAILY [facility] Last Admin: 04/15/19 09:10 Dose: 40 mg Senna (Senna -) 2 tab PO HS [facility] Last Admin: 04/14/19 22:04 Dose: 2 tab Tiotropium [place] (Spiriva Respimat) 2 puff IH DAILY [facility] Last Admin: 04/15/19 09:12 Dose: 2 puff - Objective Vital Signs: Vital Signs Temperature 98.5 F 04/15/19 14:22 Pulse Rate 71 04/15/19 14:22 Respiratory Rate 20 04/15/19 14:22 Blood Pressure 152/72 04/15/19 14:22 O2 Sat by Pulse Oximetry (%) 98 04/15/19 09:00 Constitutional: Yes: Calm Eyes: Yes: Conjunctiva Clear HENT: Yes: Atraumatic Neck: Yes: Supple Cardiovascular: Yes: S1, S2 Respiratory: Yes: CTA Bilaterally Gastrointestinal: Yes: Normal Bowel Sounds, Soft Genitourinary: Yes: WNL Musculoskeletal: Yes: WNL Edema: No Wound/Incision: Yes: Dressing Dry and Intact Neurological: Yes: Oriented Labs: CBC, BMP 04/15/19 07:15 04/15/19 07:15 INR, PTT INR 1.04 (0.83-1.09) 04/02/19 19:00 Problem List - Problems (1) Cellulitis of left lower extremity Code(s): L03.116 - CELLULITIS OF LEFT LOWER LIMB (2) End stage renal disease on dialysis Code(s): N18.6 - END STAGE RENAL DISEASE; Z99.2 - DEPENDENCE ON RENAL DIALYSIS Assessment/Plan Current Medications Generic Name Dose Route Start Last Admin Trade Name Freq PRN Reason Stop Dose Admin Acetaminophen 650 mg 04/09/19 15:09 04/15/19 06:46 Tylenol - PO 650 mg Q6H PRN Administration PAIN LEVEL 1 - 3 Albuterol/Ipratropium 1 amp 04/13/19 11:51 04/13/19 22:00 Duoneb - NEB 1 amp Q6H PRN Administration SHORTNESS OF BREATH Baclofen 10 mg 04/09/19 22:00 04/14/19 22:04 Lioresal - PO 10 mg HS [facility] Administration Bisacodyl 5 mg 04/10/19 10:00 04/15/19 09:10 Dulcolax - PO 5 mg DAILY [facility] Administration Buspirone HCl 10 mg 04/09/19 22:00 04/15/19 09:11 Buspar - PO 10 mg BID [facility] Administration Calcium Acetate 667 mg 04/09/19 17:30 04/15/19 11:40 Phoslo - PO 667 mg TIDCM [facility] Administration Carvedilol 25 mg 04/09/19 22:00 04/15/19 09:10 Coreg - PO 25 mg BID [facility] Administration Docusate Sodium 300 mg 04/09/19 22:00 04/14/19 22:04 Colace - PO 300 mg HS [facility] Administration Famotidine 20 mg 04/10/19 10:00 04/15/19 09:12 Pepcid - PO 20 mg DAILY [facility] Administration Heparin Sodium (Porcine) 5,000 unit 04/09/19 22:00 04/15/19 14:05 Heparin - SQ 5,000 unit TID [facility] Administration Hydralazine HCl 100 mg 04/09/19 22:00 04/15/19 14:05 Apresoline - PO 100 mg TID [facility] Administration Sodium Chloride 250 mls @ 3,000 mls/hr 04/14/19 18:40 Normal Saline - IV 04/15/19 18:40 PRN PRN Hypotension during Dialysis Insulin Aspart 1 vial 04/09/19 16:30 04/15/19 11:40 Novolog Vial Sliding Scale - SQ Not Given ACHS [facility] Protocol Insulin Detemir 30 units 04/09/19 22:00 04/14/19 22:21 Levemir Vial SQ 30 units HS [facility] Administration Insulin Detemir 35 units 04/10/19 07:00 04/15/19 07:01 Levemir Vial SQ 35 unit 0700 [facility] Administration Lorazepam 1 mg 04/12/19 22:00 04/15/19 09:10 Ativan - PO 1 mg BID [facility] Administration Losartan Potassium 100 mg 04/09/19 16:00 04/15/19 09:11 Cozaar - PO 100 mg DAILY [facility] Administration Melatonin 3 mg 04/09/19 22:00 04/14/19 22:04 Melatonin PO 3 mg HS [facility] Administration Metoclopramide HCl 10 mg 04/09/19 16:30 04/15/19 11:40 Reglan - PO 10 mg TIDAC [facility] Administration Metronidazole 500 mg 04/09/19 22:00 04/15/19 14:05 Flagyl - PO 500 mg TID [facility] Administration Nifedipine 90 mg 04/09/19 16:00 04/15/19 09:10 Procardia Xl - PO 90 mg DAILY [facility] Administration Ondansetron HCl 4 mg 04/09/19 15:09 04/10/19 00:49 Zofran Injection IVPB 4 mg Q8H PRN Administration NAUSEA Pantoprazole Sodium 40 mg 04/09/19 16:00 04/15/19 09:10 Protonix - PO 40 mg DAILY [facility] Administration Senna 2 tab 04/09/19 22:00 04/14/19 22:04 Senna - PO 2 tab HS [facility] Administration Tiotropium [place] 2 puff 04/14/19 11:00 04/15/19 09:12 Spiriva Respimat IH 2 puff DAILY [facility] Administration Impression 1. ESRD 2. DM 3. HTN 4. gastroparesis 5. nausea 6. anemia 7. peripheral neuropathy 8. foot infection/cellulitis 9. left foot fifth digit amputation Plan - HD tomorrow - orders written - cont wound care - abx per ID per ID - HD time 345 400 abf 2000 heparin bolus [address] Arredondo
--- NOTE | 2019-04-15 15:27 | PN ---
Progress Note (short form) - Note Progress Note: Hospitalist Medicine Without complaint today. Sitting in bed Vitals 04/15/19 14:22 Temperature 98.5 F Pulse Rate 71 Respiratory 20 Rate Blood Pressure 152/72 Physical Exam general: resting in bed HEENT: NCAT, PERRLA cardio: S1, S2 RRR. no r/m/g pulm: CTA b/l abdomen: obese, nontender, nondistended LE: 1+ pulses LLE. dressing c/d/i Laboratory Tests 04/15/19 04/15/19 07:15 07:15 WBC 6.6 Hct 25.4 L MCV 97.5 H Plt Count 380 Sodium 137 Potassium 4.3 Chloride 99 Carbon Dioxide 27 BUN 40.8 H Creatinine 5.2 H Random Glucose 194 H Alkaline Phosphatase 253 H C-Reactive Protein 1.6 H Albumin 2.8 L Microbiology 04/09/19 17:00 Toe - Left Fifth Gram Stain - Final 04/09/19 17:00 Bone Gram Stain - Final 04/09/19 17:00 Bone Anaerobic Culture - Final NO GROWTH OF AEROBIC ORGANISMS AFTER 48 HOURS INCUBATION NO ANAEROBES WERE ISOLATED 04/06/19 14:39 Blood - Peripheral Venous Blood Culture - Final NO GROWTH AFTER 5 DAYS INCUBATION 04/06/19 14:35 Blood - Peripheral Venous Blood Culture - Final NO GROWTH AFTER 5 DAYS INCUBATION 04/02/19 20:00 Blood - Peripheral Venous Blood Culture - Final NO GROWTH AFTER 5 DAYS INCUBATION 04/02/19 20:00 Blood - Peripheral Venous Blood Culture - Final NO GROWTH AFTER 5 DAYS INCUBATION 04/02/19 19:20 Toe - Left Fifth Gram Stain - Final 04/02/19 19:20 Toe - Left Fifth Wound Culture - Final Staphylococcus Aureus Strep Agalactiae Group B 04/09/19 17:00 Toe - Left Fifth Wound Culture - Preliminary Beta Hemolytic Strep Staphylococcus Coagulase Neg Imaging 04/02/19 CXR: no active pulm dz . cardiomegaly, lungs well aerated 04/02/19: L foot XR: no subcutnaeous emphysema, no definite signs of osteomyelitis 04/02/19: MRI LE w/o contrast: cellulitis of the foot. no soft tissue abscess. osteo of 5th toe involving the phalanges w suspicion of osteo of head of fifth metatarsal 04/05/19: CTA w/ runoff: infrapopliteal dz. multifocal high grade stenoses vs short segmental occlusions in the right TP trunk, EVALUATION ASSISTANT and peroneal artery w reconstitution of flow in plantar artery. predominant flow to the R foot via the JOSEFINA with patent dp artery. occluded L peroneal artery. multifocal dz in L EVALUATION ASSISTANT with multifocal high grade stenoses. patent L josefina with focal high grade stenosis in range of 70-90% of the distal JOSEFINA with patent proximal dp artery which occludes at the level of the midfoot. focal mid R SFA moderate stenosis in the range of 50-70%. nonobstructing right renal stones. prominent CBD 7mm; nonspecific. bilateral adrenal gland hyperplasia. 1.6cm right and 2.5cm left adnexal cyst. Assessment/Plan 53 year old woman with a history of ESRD, HTN, type 2 DM, GERD, gastroparesis, neuropathy, anxiety, depression who presented to the ED with left foot pain. Found to have osteomyelitis of the L fifth toe. s/p amputation. #L 5th toe osteomyelitis, s/p amputation -toe gram stain, cx: staph aureus, strep B -currently on flagyl (04/06) -will switch to cefazolin w/ HD when path results return per ID -cx (+) b hemolytic strep, staph coag (-) -c/w wound care -on roxicodone 5mg PO q6h PRN, tylenol PRN for pain -cont bowel regimen; senna, colace, dulcolax -per podiatry, partial weight bearing L heel, surgical shoe -ID on board: Dr. Downing -Podiatry: Dr. Stroud -Vascular: Dr. Mcclain #SOB possible 2/2 overload -for dialysis tomorrow -no longer symptomatic today -however f/u ECHO #ESRD on HD -next HD is tomorrow (04/16) -follow ESR, CRP w/ dialysis -c/w phoslo -Nephro: Dr. Arredondo #IDDM w/ gastroparesis, diabetic neuropathy -c/w levemir 30u sq HS, 35u in AM -ISS, BGM ACHS -maintain controlled BGM < 180 to aid wound healing -c/w reglan #Anxiety -seen by psych, started on ativan 1mg PO BID -c/w buspar -on melatonin #HTN -c/w coreg, hydralazine, procardia, losartan #PPX DVT: on hep 5k sq tid GI: on protonix #F/E/N no IVF at this time continue to follow lytes renal diet #Dispo monitoring on med-surg pending path, ID recs <Terrie Radfordavna - Last Filed: 04/15/19 17:16> - Note Progress Note: Seen and examined; please refer to resident note for further historical information. I agree with the aforementioned assessment and plan and historical information aside from as supplemented by myself. Independently verified all peña exam findings and diagnostics. I discussed the case at length with the resident and agree with the plan as outlined. Sleepy; seen postop. Limited ROS secondarily. 10 sys ROS done and negative aside from HPI VS, labs, imaging reviewed NAD AAO resting in bed NC AT EOMI PERRLA HR wnl, s1/2+ NT ND +BS CN2-12 wnl, no fnd <Jovani Hernandez - Last Filed: 04/16/19 15:18>
--- NOTE | 2019-04-15 16:54 | ECHO ---
Name: DELMY CONNOLLYYA Exam:Adult Echocardiogram Study Date: 04/15/2019 10:05 AM Age: 53 yrs Height: 66 in Weight: 189 lb BSA: 2.0 m2 MMode/2D Measurements & Calculations IVSd: 1.1 cm Ao root diam: 2.8 cm LVIDd: 4.7 cm LA dimension: 4.7 cm LVIDs: 3.2 cm LVPWd: 1.1 cm LVPWs: 1.4 cm EDV(Teich): 102.2 ml ESV(Teich): 40.8 ml LVOT diam: 1.9 cm LAV (MOD-bp): 93.2 ml RV S Kwame: 13.3 cm/sec Doppler Measurements & Calculations MV E max kwame: 151.0 cm/sec Ao V2 max: 215.5 cm/sec MV A max kwame: 134.0 cm/sec Ao max P.6 mmHg MV E/A: 1.1 Ao V2 mean: 131.3 cm/sec MV dec time: 0.19 sec Ao mean P.9 mmHg Ao V2 VTI: 47.6 cm LA(V,D): 1.4 cm2 LV V1 max P.8 mmHg MR max kwame: 466.1 cm/sec LV V1 max: 109.6 cm/sec MR max P.9 mmHg TR max kwame: 263.1 cm/sec PA V2 max: 124.1 cm/sec TR max P.9 mmHg PA max P.2 mmHg Med Peak E' Kwame: 7.8 cm/sec Med E/e': 19.3 Lat Peak E' Kwame: 10.2 cm/sec Lat E/e': 14.8 Procedure A complete two-dimensional transthoracic echocardiogram was performed (2D, M-mode, Doppler and color flow Doppler). Left Ventricle The left ventricle is normal in size. Left ventricular systolic function is normal. Ejection Fraction = 60- 65%. No regional wall motion abnormalities noted. Right Ventricle The right ventricle is normal size. The right ventricular systolic function is normal. RV systolic TD I is 13 cm/s. Atria The left atrium is moderately dilated. Right atrial size is normal. Mitral Valve The mitral valve is normal in structure and function. There is mild mitral regurgitation. Tricuspid Valve The tricuspid valve is normal in structure and function. There is mild tricuspid regurgitation. Pulmo nary artery systolic pressure is at least 37 mmHg if RA pressure is assumed 3 mmHg. Aortic Valve The aortic valve is normal in structure and function. No aortic regurgitation is present. Pulmonic Valve The pulmonic valve is not well visualized. Great Vessels The aortic root is normal size. Pericardium/Pleura There is no pericardial effusion. Interpretation Summary The left ventricle is normal in size. Left ventricular systolic function is normal. No regional wall motion abnormalities noted. Ejection Fraction = 60-65%. The right ventricular systolic function is normal. The left atrium is moderately dilated. Right atrial size is normal. There is mild mitral regurgitation. There is mild tricuspid regurgitation. Pulmonary artery systolic pressure is at least 37 mmHg if RA pressure is assumed 3 mmHg There is no pericardial effusion. Tobias Salazar MD 04/15/2019 04:54 PM
--- NOTE | 2019-04-15 16:59 | PN ---
Progress Note, Physician History of Present Illness: AWAKE, ALERT IN BED NO COMPLAINTS AFEBRILE WBC WNL SURGICAL PATH REVEALS INFECTED BONE AT RESECTION MARGIN - Current Medication List Current Medications: Active Medications Acetaminophen (Tylenol -) 650 mg PO Q6H PRN PRN Reason: PAIN LEVEL 1 - 3 Last Admin: 04/15/19 06:46 Dose: 650 mg Albuterol/Ipratropium (Duoneb -) 1 amp NEB Q6H PRN PRN Reason: SHORTNESS OF BREATH Last Admin: 04/13/19 22:00 Dose: 1 amp Baclofen (Lioresal -) 10 mg PO [facility] Last Admin: 04/14/19 22:04 Dose: 10 mg Bisacodyl (Dulcolax -) 5 mg PO DAILY [facility] Last Admin: 04/15/19 09:10 Dose: 5 mg Buspirone HCl (Buspar -) 10 mg PO BID [facility] Last Admin: 04/15/19 09:11 Dose: 10 mg Calcium Acetate (Phoslo -) 667 mg PO TIDCM [facility] Last Admin: 04/15/19 11:40 Dose: 667 mg Carvedilol (Coreg -) 25 mg PO BID [facility] Last Admin: 04/15/19 09:10 Dose: 25 mg Docusate Sodium (Colace -) 300 mg PO [facility] Last Admin: 04/14/19 22:04 Dose: 300 mg Famotidine (Pepcid -) 20 mg PO DAILY [facility] Last Admin: 04/15/19 09:12 Dose: 20 mg Heparin Sodium (Porcine) (Heparin -) 5,000 unit SQ TID [facility] Last Admin: 04/15/19 14:05 Dose: 5,000 unit Hydralazine HCl (Apresoline -) 100 mg PO TID [facility] Last Admin: 04/15/19 14:05 Dose: 100 mg Sodium Chloride (Normal Saline -) 250 mls @ 3,000 mls/hr IV PRN PRN PRN Reason: Hypotension during Dialysis Stop: 04/15/19 18:40 Insulin Aspart (Novolog Vial Sliding Scale -) 1 vial SQ [facility]; Protocol Last Admin: 04/15/19 11:40 Dose: Not Given Insulin Detemir (Levemir Vial) 30 units SQ [facility] Last Admin: 04/14/19 22:21 Dose: 30 units Insulin Detemir (Levemir Vial) 35 units SQ 0700 [facility] Last Admin: 04/15/19 07:01 Dose: 35 unit Lorazepam (Ativan -) 1 mg PO BID [facility] Last Admin: 04/15/19 09:10 Dose: 1 mg Losartan Potassium (Cozaar -) 100 mg PO DAILY [facility] Last Admin: 04/15/19 09:11 Dose: 100 mg Melatonin (Melatonin) 3 mg PO HS [facility] Last Admin: 04/14/19 22:04 Dose: 3 mg Metoclopramide HCl (Reglan -) 10 mg PO TIDAC [facility] Last Admin: 04/15/19 11:40 Dose: 10 mg Metronidazole (Flagyl -) 500 mg PO TID [facility] Last Admin: 04/15/19 14:05 Dose: 500 mg Nifedipine (Procardia Xl -) 90 mg PO DAILY [facility] Last Admin: 04/15/19 09:10 Dose: 90 mg Ondansetron HCl (Zofran Injection) 4 mg IVPB Q8H PRN PRN Reason: NAUSEA Last Admin: 04/10/19 00:49 Dose: 4 mg Pantoprazole Sodium (Protonix -) 40 mg PO DAILY [facility] Last Admin: 04/15/19 09:10 Dose: 40 mg Senna (Senna -) 2 tab PO HS [facility] Last Admin: 04/14/19 22:04 Dose: 2 tab Tiotropium [place] (Spiriva Respimat) 2 puff IH DAILY [facility] Last Admin: 04/15/19 09:12 Dose: 2 puff - Objective Vital Signs: Vital Signs Temperature 98.5 F 04/15/19 14:22 Pulse Rate 71 04/15/19 14:22 Respiratory Rate 20 04/15/19 14:22 Blood Pressure 152/72 04/15/19 14:22 O2 Sat by Pulse Oximetry (%) 98 04/15/19 09:00 Constitutional: Yes: No Distress Eyes: Yes: Conjunctiva Clear Cardiovascular: Yes: Regular Rate and Rhythm, S1, S2 Respiratory: Yes: CTA Bilaterally Gastrointestinal: Yes: Normal Bowel Sounds, Soft. No: Tenderness Extremities: Yes: Other (AMPUTATION SITE L 5TH TOE WITH SUTURES INTACT. NO DRAINAGE) Labs: CBC, BMP 04/15/19 07:15 04/15/19 07:15 INR, PTT INR 1.04 (0.83-1.09) 04/02/19 19:00 Assessment/Plan S/P AMPUTATION L 5TH TOE OSTEOMYELITIS L 5TH TOE CONTINUE CEFAZOLIN DOSED AT EACH HD FOR ADDITIONAL 5WEEKS ( CEFAZOLIN 2GM MON, 2GM WED, 3GM FRI)
--- NOTE | 2019-04-15 18:18 | PN ---
Progress Note (short form) - Note Progress Note: Discussed case with nurse . Continue local wound care F/U at wound care center at [facility] PT to call with any questions concerns prior to wound care center appointment Home nursing dressing changes wet to dry ABX as per infectious disease
[2019-04-15] MEDS: DOCUSATE SODIUM 100 MG CAPSULE (FP) PO SCH (22:23)
[2019-04-15] MEDS: SENNOSIDES 8.6MG TABLET (FP) PO SCH (22:23)
[2019-04-15] MEDS: BACLOFEN 10 MG TABLET (FP) PO SCH (22:24)
[2019-04-15] MEDS: MELATONIN 1 MG TABLET PO SCH (22:24)
[2019-04-16] MEDS: ACETAMINOPHEN 325 MG TABLET (FP) PO PRN (01:39)
[2019-04-16] MEDS: ALBUTEROL SO4 2.5/IPRATROPIUM 0.5 INH SOL 3 ML VIAL.NEB. NEB PRN (02:12)
[2019-04-16] MEDS ORDERED: traZODone HCL 50 MG TABLET (FP) PO ONE (02:48)
[2019-04-16] MEDS: hydrALAZINE HCL 50 MG TABLET (FP) PO SCH (05:53)
[2019-04-16] MEDS: metroNIDAZOLE 250 MG TABLET PO SCH (05:53)
[2019-04-16] MEDS: HEPARIN NA (PORCINE) 5,000 UNITS/ML 1ML VIAL SQ SCH (05:53)
[2019-04-16] MEDS: INSULIN (LEVEMIR) 100 UNITS/ML UNITS SQ SCH (07:07)
[2019-04-16] MEDS: INSULIN SLIDING SCALE (NOVOLOG) 1 VIAL SQ SCH (07:08)
[2019-04-16] MEDS: METOCLOPRAMIDE HCL 10 MG TABLET (FP) PO SCH ×2 (07:10→13:23)
[2019-04-16 07:31] LABS: BASO % 0.9 % (0-2.0); EOS % 3.9 % (0-4.5); HEMATOCRIT 25.1 % (32.4-45.2); HEMOGLOBIN 8.4 GM/dL (10.7-15.3); LYMPH % 19.3 % (8-40); MCH 32.7 pg (25.7-33.7); MCHC 33.6 g/dl (32.0-36.0); MEAN CELL VOLUME 97.5 fl (80-96); MEAN PLT VOLUME 8.5 fl (7.5-11.1); MONO % 9.5 % (3.8-10.2); NEUT % 66.4 % (42.8-82.8); PLATELET COUNT 392 K/MM3 (134-434); RBC 2.58 M/mm3 (3.60-5.2); RDW 15.5 % (11.6-15.6)
[2019-04-16 07:50] LABS: BLOOD UREA NITROGEN 58.1 mg/dL (7-18); CALCIUM 8.8 mg/dL (8.5-10.1); CREATININE 6.8 mg/dL (0.55-1.3); MAGNESIUM 2.6 mg/dL (1.8-2.4); PHOSPHOROUS 5.8 mg/dL (2.5-4.9); POTASSIUM 4.6 mmol/L (3.5-5.1)
[2019-04-16] MEDS ORDERED: CEFAZOLIN 2 GM/D5W 2 GM/50 ML ML IVPB ONE (08:45)
[2019-04-16] MEDS ORDERED: SODIUM CHLORIDE 250 ML IV PRN (08:45)
[2019-04-16] MEDS ORDERED: EPOETIN ALFA 10,000 UNIT/1 ML VIAL IVPUSH ONE (10:15)
[2019-04-16] MEDS: BISACODYL 5 MG TABLET.DR (FP) PO SCH (13:21)
[2019-04-16] MEDS: CALCIUM ACETATE 667 MG CAPSULE (FP) PO SCH ×2 (13:21)
[2019-04-16] MEDS: LORazepam 1 MG TABLET PO SCH (13:21)
[2019-04-16] MEDS: busPIRone HCL 10 MG TABLET (FP) PO SCH (13:22)
[2019-04-16] MEDS: CARVEDILOL 25 MG TABLET (FP) PO SCH (13:22)
[2019-04-16] MEDS: LOSARTAN POTASSIUM 50 MG TABLET (FP) PO SCH (13:22)
[2019-04-16] MEDS: FAMOTIDINE 20 MG TABLET PO SCH (13:23)
[2019-04-16] MEDS: NIFEdipine E.R. 90 MG TABLET (FP) PO SCH (13:23)
[2019-04-16] MEDS: PANTOPRAZOLE 40 MG TABLET (FP) PO SCH (13:23)
[2019-04-16 14:38] VITALS: BP 146/59; PULSE 78; TEMP 99
--- NOTE | 2019-04-16 15:40 | PN ---
Progress Note, Physician History of Present Illness: Pt seen and examined at bedside. She is awake and alert. She tolerated HD today. - Current Medication List Current Medications: Active Medications Acetaminophen (Tylenol -) 650 mg PO Q6H PRN PRN Reason: PAIN LEVEL 1 - 3 Last Admin: 04/16/19 01:39 Dose: 650 mg Albuterol/Ipratropium (Duoneb -) 1 amp NEB Q6H PRN PRN Reason: SHORTNESS OF BREATH Last Admin: 04/16/19 02:12 Dose: 1 amp Baclofen (Lioresal -) 10 mg PO HS [facility] Last Admin: 04/15/19 22:24 Dose: 10 mg Bisacodyl (Dulcolax -) 5 mg PO DAILY [facility] Last Admin: 04/16/19 13:21 Dose: 5 mg Buspirone HCl (Buspar -) 10 mg PO BID [facility] Last Admin: 04/16/19 13:22 Dose: 10 mg Calcium Acetate (Phoslo -) 667 mg PO TIDCM [facility] Last Admin: 04/16/19 13:21 Dose: 667 mg Carvedilol (Coreg -) 25 mg PO BID [facility] Last Admin: 04/16/19 13:22 Dose: 25 mg Docusate Sodium (Colace -) 300 mg PO HS [facility] Last Admin: 04/15/19 22:23 Dose: 300 mg Famotidine (Pepcid -) 20 mg PO DAILY [facility] Last Admin: 04/16/19 13:23 Dose: 20 mg Hydralazine HCl (Apresoline -) 100 mg PO TID [facility] Last Admin: 04/16/19 05:53 Dose: Not Given Sodium Chloride (Normal Saline -) 250 mls @ 3,000 mls/hr IV PRN PRN PRN Reason: Hypotension during Dialysis Insulin Aspart (Novolog Vial Sliding Scale -) 1 vial SQ [facility]; Protocol Last Admin: 04/16/19 07:08 Dose: Not Given Insulin Detemir (Levemir Vial) 30 units SQ HS [facility] Last Admin: 04/15/19 22:35 Dose: 30 units Insulin Detemir (Levemir Vial) 35 units SQ 0700 [facility] Last Admin: 04/16/19 07:07 Dose: Not Given Lorazepam (Ativan -) 1 mg PO BID [facility] Last Admin: 04/16/19 13:21 Dose: 1 mg Losartan Potassium (Cozaar -) 100 mg PO DAILY [facility] Last Admin: 04/16/19 13:22 Dose: 100 mg Melatonin (Melatonin) 3 mg PO HS [facility] Last Admin: 04/15/19 22:24 Dose: 3 mg Metoclopramide HCl (Reglan -) 10 mg PO TIDAC [facility] Last Admin: 04/16/19 13:23 Dose: 10 mg Metronidazole (Flagyl -) 500 mg PO TID [facility] Last Admin: 04/16/19 05:53 Dose: 500 mg Nifedipine (Procardia Xl -) 90 mg PO DAILY [facility] Last Admin: 04/16/19 13:23 Dose: 90 mg Pantoprazole Sodium (Protonix -) 40 mg PO DAILY [facility] Last Admin: 04/16/19 13:23 Dose: 40 mg Senna (Senna -) 2 tab PO HS [facility] Last Admin: 04/15/19 22:23 Dose: 2 tab - Objective Vital Signs: Vital Signs Temperature 99.0 F 04/16/19 14:37 Pulse Rate 78 04/16/19 14:37 Respiratory Rate 20 04/16/19 14:37 Blood Pressure 146/59 L 04/16/19 14:37 O2 Sat by Pulse Oximetry (%) 98 04/15/19 21:00 Constitutional: Yes: Calm Eyes: Yes: Conjunctiva Clear HENT: Yes: Atraumatic Neck: Yes: Supple Cardiovascular: Yes: S1, S2 Respiratory: Yes: CTA Bilaterally Gastrointestinal: Yes: Soft Genitourinary: Yes: WNL Musculoskeletal: Yes: WNL Edema: No Wound/Incision: Yes: Dressing Dry and Intact Psychiatric: Yes: Oriented Labs: CBC, BMP 04/16/19 06:55 04/16/19 06:55 INR, PTT INR 1.04 (0.83-1.09) 04/02/19 19:00 Problem List - Problems (1) Cellulitis of left lower extremity Code(s): L03.116 - CELLULITIS OF LEFT LOWER LIMB (2) End stage renal disease on dialysis Code(s): N18.6 - END STAGE RENAL DISEASE; Z99.2 - DEPENDENCE ON RENAL DIALYSIS Assessment/Plan Current Medications Generic Name Dose Route Start Last Admin Trade Name Freq PRN Reason Stop Dose Admin Acetaminophen 650 mg 04/09/19 15:09 04/16/19 01:39 Tylenol - PO 650 mg Q6H PRN Administration PAIN LEVEL 1 - 3 Albuterol/Ipratropium 1 amp 04/13/19 11:51 04/16/19 02:12 Duoneb - NEB 1 amp Q6H PRN Administration SHORTNESS OF BREATH Baclofen 10 mg 04/09/19 22:00 04/15/19 22:24 Lioresal - PO 10 mg HS [facility] Administration Bisacodyl 5 mg 04/10/19 10:00 04/16/19 13:21 Dulcolax - PO 5 mg DAILY [facility] Administration Buspirone HCl 10 mg 04/09/19 22:00 04/16/19 13:22 Buspar - PO 10 mg BID [facility] Administration Calcium Acetate 667 mg 04/09/19 17:30 04/16/19 13:21 Phoslo - PO 667 mg TIDCM [facility] Administration Carvedilol 25 mg 04/09/19 22:00 04/16/19 13:22 Coreg - PO 25 mg BID [facility] Administration Docusate Sodium 300 mg 04/09/19 22:00 04/15/19 22:23 Colace - PO 300 mg HS [facility] Administration Famotidine 20 mg 04/10/19 10:00 04/16/19 13:23 Pepcid - PO 20 mg DAILY [facility] Administration Hydralazine HCl 100 mg 04/09/19 22:00 04/16/19 05:53 Apresoline - PO Not Given TID [facility] Sodium Chloride 250 mls @ 3,000 mls/hr 04/16/19 08:45 Normal Saline - IV PRN PRN Hypotension during Dialysis Insulin Aspart 1 vial 04/09/19 16:30 04/16/19 07:08 Novolog Vial Sliding Scale - SQ Not Given ACHS [facility] Protocol Insulin Detemir 30 units 04/09/19 22:00 04/15/19 22:35 Levemir Vial SQ 30 units HS [facility] Administration Insulin Detemir 35 units 04/10/19 07:00 04/16/19 07:07 Levemir Vial SQ Not Given 0700 [facility] Lorazepam 1 mg 04/12/19 22:00 04/16/19 13:21 Ativan - PO 1 mg BID [facility] Administration Losartan Potassium 100 mg 04/09/19 16:00 04/16/19 13:22 Cozaar - PO 100 mg DAILY [facility] Administration Melatonin 3 mg 04/09/19 22:00 04/15/19 22:24 Melatonin PO 3 mg HS [facility] Administration Metoclopramide HCl 10 mg 04/09/19 16:30 04/16/19 13:23 Reglan - PO 10 mg TIDAC [facility] Administration Metronidazole 500 mg 04/09/19 22:00 04/16/19 05:53 Flagyl - PO 500 mg TID [facility] Administration Nifedipine 90 mg 04/09/19 16:00 04/16/19 13:23 Procardia Xl - PO 90 mg DAILY [facility] Administration Pantoprazole Sodium 40 mg 04/09/19 16:00 04/16/19 13:23 Protonix - PO 40 mg DAILY [facility] Administration Senna 2 tab 04/09/19 22:00 04/15/19 22:23 Senna - PO 2 tab HS [facility] Administration Impression 1. ESRD 2. DM 3. HTN 4. gastroparesis 5. nausea 6. anemia 7. peripheral neuropathy 8. foot infection/cellulitis 9. left foot fifth digit amputation Plan - pt tolerated HD - cefazoline 2 2 3 gm for 5 more weeks per ID - HD today - cont wound care - HD time 345 400 abf 2000 heparin bolus [address] Arredondo
--- NOTE | 2019-04-16 18:10 | DS ---
Physical Exam: SUBJECTIVE: Patient seen and examined at bedside. Ambulating by bedside. Ready to go home. All questions answered. OBJECTIVE: Vital Signs Period Temp Pulse Resp BP Sys/Rivera Pulse Ox Last 24 Hr 98 F-99.0 F 67-81 18-20 114-187/48-98 98 Physical Exam general: ambulating in room HEENT: NCAT, PERRLA cardio: S1, S2 RRR. no r/m/g pulm: CTA b/l abdomen: obese, nontender, nondistended LE: 1+ pulses LLE. dressing c/d/i LABS Laboratory Results - last 24 hr 04/16/19 04/16/19 04/16/19 06:49 06:55 06:55 WBC 8.0 RBC 2.58 L Hgb 8.4 L Hct 25.1 L MCV 97.5 H MCH 32.7 MCHC 33.6 RDW 15.5 Plt Count 392 MPV 8.5 Absolute Neuts (auto) 5.3 Neutrophils % 66.4 Lymphocytes % 19.3 Monocytes % 9.5 Eosinophils % 3.9 D Basophils % 0.9 Nucleated RBC % 0 Sodium 135 L Potassium 4.6 Chloride 100 Carbon Dioxide 26 Anion Gap 9 BUN 58.1 H Creatinine 6.8 H Est GFR (CKD-EPI)AfAm 7.34 Est GFR (CKD-EPI)NonAf 6.33 POC Glucometer 94 Random Glucose 96 Calcium 8.8 Phosphorus 5.8 H Magnesium 2.6 H 04/02/19 04/03/19 04/04/19 19:00 06:20 09:15 WBC 13.0 H 11.8 H 12.9 H Hgb 9.6 L 10.0 L 9.2 L Hct 29.2 L 29.6 L 27.1 L MCV Plt Count 316 269 273 04/05/19 04/07/19 04/08/19 09:00 07:55 10:00 WBC 13.3 H 11.1 H Hgb 9.4 L 9.7 L 8.6 L Hct 27.8 L 28.9 L 26.0 L MCV Plt Count 317 395 D 382 04/02/19 04/02/19 04/03/19 19:00 20:24 06:20 Sodium Est GFR (CKD-EPI)AfAm POC Glucometer Random Glucose 332 H Calcium 8.6 Iron Unsaturated IBC Ferritin Total Bilirubin 0.5 AST 10 L ALT 27 Alkaline Phosphatase 167 H 158 H C-Reactive Protein 18.8 H Total Protein 7.5 7.2 Albumin 3.1 L 3.0 L TSH 1.88 04/03/19 04/05/19 04/05/19 06:20 09:00 12:45 Sodium BUN 44.0 H 11.8 Creatinine 7.4 H* 2.5 H Est GFR (CKD-EPI)AfAm 6.63 24.60 Est GFR (CKD-EPI)NonAf 5.72 21.23 POC Glucometer Random Glucose Calcium Iron 45 L TIBC 129 L Iron Saturation 34 Unsaturated IBC 84 L Ferritin 1705.3 H Total Bilirubin TSH 04/08/19 04/09/19 04/09/19 10:00 10:05 16:37 Sodium BUN 67.0 H 40.0 H Creatinine 9.6 H* 6.0 H Est GFR (CKD-EPI)AfAm Est GFR (CKD-EPI)NonAf POC Glucometer 186 Random Glucose Total Bilirubin AST 12 L ALT 14 Alkaline Phosphatase 185 H C-Reactive Protein Total Protein 6.9 Albumin 2.7 L TSH 04/10/19 04/10/19 04/12/19 08:45 16:17 10:30 Sodium BUN 50.0 H 44.7 H Creatinine 7.1 H 7.0 H Est GFR (CKD-EPI)AfAm 7.09 POC Glucometer 209 Random Glucose 193 H Calcium 04/13/19 04/15/19 04/16/19 06:55 07:15 06:55 Sodium 135 L BUN 35.6 H 40.8 H 58.1 H Creatinine 5.0 H 5.2 H Est GFR (CKD-EPI)AfAm Microbiology 04/09/19 17:00 Toe - Left Fifth Gram Stain - Final 04/09/19 17:00 Toe - Left Fifth Wound Culture - Final Staphylococcus Epidermidis 04/09/19 17:00 Bone Gram Stain - Final 04/09/19 17:00 Bone Anaerobic Culture - Final NO GROWTH OF AEROBIC ORGANISMS AFTER 48 HOURS INCUBATION NO ANAEROBES WERE ISOLATED 04/06/19 14:39 Blood - Peripheral Venous Blood Culture - Final NO GROWTH AFTER 5 DAYS INCUBATION 04/06/19 14:35 Blood - Peripheral Venous Blood Culture - Final NO GROWTH AFTER 5 DAYS INCUBATION 04/02/19 20:00 Blood - Peripheral Venous Blood Culture - Final NO GROWTH AFTER 5 DAYS INCUBATION 04/02/19 20:00 Blood - Peripheral Venous Blood Culture - Final NO GROWTH AFTER 5 DAYS INCUBATION 04/02/19 19:20 Toe - Left Fifth Gram Stain - Final 04/02/19 19:20 Toe - Left Fifth Wound Culture - Final Staphylococcus Aureus Strep Agalactiae Group B Imaging 04/02/19 CXR: no active pulm dz . cardiomegaly, lungs well aerated 04/02/19: L foot XR: no subcutnaeous emphysema, no definite signs of osteomyelitis 04/02/19: MRI LE w/o contrast: cellulitis of the foot. no soft tissue abscess. osteo of 5th toe involving the phalanges w suspicion of osteo of head of fifth metatarsal 04/05/19: CTA w/ runoff: infrapopliteal dz. multifocal high grade stenoses vs short segmental occlusions in the right TP trunk, [employer] and peroneal artery w reconstitution of flow in plantar artery. predominant flow to the R foot via the JOSEFINA with patent dp artery. occluded L peroneal artery. multifocal dz in L [employer]INE [employer] with multifocal high grade stenoses. patent L josefina with focal high grade stenosis in range of 70-90% of the distal JOSEFINA with patent proximal dp artery which occludes at the level of the midfoot. focal mid R SFA moderate stenosis in the range of 50-70%. nonobstructing right renal stones. prominent CBD 7mm; nonspecific. bilateral adrenal gland hyperplasia. 1.6cm right and 2.5cm left adnexal cyst. HOSPITAL COURSE: Date of Admission:04/02/19 Date of Discharge: 04/16/19 53 year old woman with a history of ESRD, HTN, type 2 DM, GERD, gastroparesis, neuropathy, anxiety, depression who presented to the ED with left foot pain. Found to have osteomyelitis of the L fifth toe. s/p amputation. #L 5th toe osteomyelitis, s/p amputation -toe gram stain, cx: staph aureus, strep B -was on flagyl previously, to c/w cefazolin after HD M, W, F with 2g, 2g and 3g respectively x 5 weeks -health technical writer d/w [facility] and pt at length -cx (+) b hemolytic strep, staph coag (-) -surgical path reveals infected bone at resection margin. -c/w wound care -on roxicodone 5mg PO q6h PRN, tylenol PRN for pain -cont bowel regimen; senna, colace, dulcolax -per podiatry, partial weight bearing L heel, surgical shoe #SOB possible 2/2 overload -for dialysis tomorrow -no longer symptomatic today #ESRD on HD -follow ESR, CRP w/ dialysis -c/w phoslo -Nephro: Dr. Arredondo #IDDM w/ gastroparesis, diabetic neuropathy -c/w levemir 30u sq HS, 35u in AM -ISS, BGM ACHS -maintain controlled BGM < 180 to aid wound healing -c/w reglan #Anxiety -seen by psych, started on ativan 1mg PO BID -d/w psych today- not to d/c home on ativan. pt needs psych f/u to establish care. discussed at length w/ pt, agreeable to plan. -c/w buspar -on melatonin #HTN -c/w coreg, hydralazine, procardia, losartan Minutes to complete discharge: 45 <Hermelinda Radford - Last Filed: 04/16/19 18:10> Physical Exam: Seen and examined; please see resident note for further historical information. I personally verified all peña historical information and exam findings. Personally interpreted all imaging and diagnostics and reviewed appropriate consults. I reviewed all labs and vital signs as per resident note and EMR as documented. I agree with the above assessment and plan unless supplemented by myself in the following. 10 item review of systems completed and is negative aside from as discussed in the subjective data in my own/the resident documentation. Seen by podiatry who asked directed 3 times weekly dressing changes and hyperbaric therapy. Follow-up in 1 week with podiatry. Exam with good pedal pulses and continued neuropathic findings with decreased sensation noted to the pedal surface of the left foot. Postsurgical amputation site noted. Agree with rest of discharge planning as documented. <Jovani Hernandez - Last Filed: 05/05/19 18:58> Discharge Summary Problems reviewed: Yes Reason For Visit: CELLULITIS OF LEFT LOWER EXTREMITY - Home Medications Comprehensive Discharge Medication List: Ambulatory Orders Baclofen 10 mg PO HS 12/14/16 Bisacodyl [Bisacodyl -] 5 mg PO DAILY 12/14/16 Calcium Acetate 667 mg PO AC 12/14/16 Dexlansoprazole [Dexilant] 60 mg PO DAILY 12/14/16 Hydralazine HCl 100 mg PO TID 12/14/16 Melatonin 3 mg PO HS 12/14/16 Metoclopramide HCl [Reglan -] 10 mg PO TID 12/14/16 Vitamin E 400 unit PO DAILY 12/14/16 Buspirone HCl [Buspar -] 10 mg PO BID 30 Days #60 tablet 07/23/18 Losartan Potassium 100 mg PO DAILY #30 tablet 07/23/18 Nifedipine ER [Procardia XL -] 90 mg PO DAILY #30 tab.er.24 07/23/18 Insulin (Levemir) [Levemir Vial] 30 units SQ HS 04/03/19 Acetaminophen [Tylenol .Regular Strength -] 650 mg PO Q6H PRN #20 tablet Carvedilol [Coreg -] 25 mg PO BID tablet 04/16/19 Insulin (Levemir) [Levemir Vial] 30 units SQ HS units 04/16/19 Insulin (Levemir) [Levemir Vial] 35 units SQ 0700 units 04/16/19 <Hermelinda Radford - Last Filed: 04/16/19 18:10> - Home Medications Comprehensive Discharge Medication List: Ambulatory Orders Baclofen 10 mg PO HS 12/14/16 Bisacodyl [Bisacodyl -] 5 mg PO DAILY 12/14/16 Calcium Acetate 667 mg PO AC 12/14/16 Dexlansoprazole [Dexilant] 60 mg PO DAILY 12/14/16 Hydralazine HCl 100 mg PO TID 12/14/16 Melatonin 3 mg PO HS 12/14/16 Metoclopramide HCl [Reglan -] 10 mg PO TID 12/14/16 Vitamin E 400 unit PO DAILY 12/14/16 Buspirone HCl [Buspar -] 10 mg PO BID 30 Days #60 tablet 07/23/18 Losartan Potassium 100 mg PO DAILY #30 tablet 07/23/18 Nifedipine ER [Procardia XL -] 90 mg PO DAILY #30 tab.er.24 07/23/18 Insulin (Levemir) [Levemir Vial] 30 units SQ HS 04/03/19 Acetaminophen [Tylenol .Regular Strength -] 650 mg PO Q6H PRN #20 tablet Carvedilol [Coreg -] 25 mg PO BID tablet 04/16/19 Insulin (Levemir) [Levemir Vial] 30 units SQ HS units 04/16/19 Insulin (Levemir) [Levemir Vial] 35 units SQ 0700 units 04/16/19 Cefazolin 2 G/100 ml-0.9% NaCl 2 gm IV ASDIR 04/30/19 <Jovani Hernandez - Last Filed: 05/05/19 18:58> Condition: Fair - Instructions Diet, Activity, Other Instructions: You were in the hospital because you had a bone infection of your left fifth toe. You underwent an amputation. You were treated with IV antibiotics. You will continue with IV antibiotics after your dialysis sessions at [facility]. This has already been set up. You are to continue with: cefazolin 2gm on Monday, 2gm Monday, 3g Monday ( after dialysis). This is an IV antibiotic. You are not being sent home on oral antibiotics This has been discussed with [facility] Hem[facility]ialysis: [phone] You will need to have your ESR, CRP checked at these sessions, and weekly CBC, BMP testing. These are specific instructions for the dialysis center. Medications 1. You may take tylenol 650mg every six hours as needed for pain. 2. Continue with your bowel regimen 3. Continue your other home medications. [facility] nursing dressing changes wet to dry. Continue to use your boot ; partial weight bearing L heel, surgical shoe Follow-up visits Please follow with your: -primary care physician -Dr. Patterson - 1 week to discuss your visit -infectious disease doctor, Dr. Pavon - 1 week to monitor your progress on antibiotics -a psychiatrist, Dr. Cortes, who saw you in the hospital - 1 week; he will determine whether you will continue ativan for your anxiety, as we discussed together upon your discharge. -a rn tele/ foot doctor, Dr. Stroud - 1 week Referrals: Alfonso Pavon MD [Staff Physician] - 1 Week Jose Maria Stroud MD [Staff Physician] - 1 Week Verona Cortes MD [Staff Physician] - 1 Month Derrek Patterson MD [Staff Physician] - 1 Week Disposition: HOME This patient is new to me today: No Emergency Visit: No Critical Care patient: No - Discharge Referral Referred to [facility] No <Hermelinda Radford - Last Filed: 04/16/19 18:10> ATTENDING PHYSICIAN STATEMENT I saw and evaluated the patient. I reviewed the resident's note and discussed the case with the resident. I agree with the resident's findings and plan as documented. SUBJECTIVE: OBJECTIVE: ASSESSMENT AND PLAN: <Jovani Hernandez - Last Filed: 05/05/19 18:58>
== END 2019-04-16 17:12 | disposition home or self-care (01) | DRG 255 ==
LOC: JER 17:36 → JERBED 18:43 → J7W 04-03 20:24
PROVIDERS: ADMIT Internal Medicine; ATTEND Internal Medicine
PROC: 5A1D70Z Performance of Urinary Filtration, Intermittent, Less than 6 Hours Per Day (ICD-10-PCS; 2019-04-04)
PROC: 0QBP0ZZ Excision of Left Metatarsal, Open Approach (ICD-10-PCS; 2019-04-09)
PROC: 0Y6Y0Z0 Detachment at Left 5th Toe, Complete, Open Approach (ICD-10-PCS; principal; 2019-04-09 10:30)
DX: E11.52 Type 2 diabetes mellitus with diabetic peripheral angiopathy with gangrene (principal); N18.6 End stage renal disease; I12.0 Hypertensive chronic kidney disease with stage 5 chronic kidney disease or end stage renal disease; L03.116 Cellulitis of left lower limb; M86.8X7 Other osteomyelitis, ankle and foot; I96 Gangrene, not elsewhere classified; E13.69 Other specified diabetes mellitus with other specified complication; E11.22 Type 2 diabetes mellitus with diabetic chronic kidney disease; E11.42 Type 2 diabetes mellitus with diabetic polyneuropathy; E11.65 Type 2 diabetes mellitus with hyperglycemia; E11.40 Type 2 diabetes mellitus with diabetic neuropathy, unspecified; E11.43 Type 2 diabetes mellitus with diabetic autonomic (poly)neuropathy; F32.9 Major depressive disorder, single episode, unspecified; K21.9 Gastro-esophageal reflux disease without esophagitis; E88.09 Other disorders of plasma-protein metabolism, not elsewhere classified; D63.1 Anemia in chronic kidney disease; Z99.2 Dependence on renal dialysis; E66.9 Obesity, unspecified; Z79.4 Long term (current) use of insulin; L97.529 Non-pressure chronic ulcer of other part of left foot with unspecified severity; K31.84 Gastroparesis; F17.210 Nicotine dependence, cigarettes, uncomplicated; K59.00 Constipation, unspecified; F43.22 Adjustment disorder with anxiety; I34.0 Nonrheumatic mitral (valve) insufficiency
CPT/HCPCS: 36415; 71046-TC-FY; 73630-TC-LT; 73718-TC-LT; 75635-TC; 80048; 80053; 81003; 82565; 82728; 82962; 83540; 83550; 83735; 84100; 84443; 84520; 85025; 85027; 85044; 85610; 85651; 86140; 86803; 86850; 86900; 86901; 87040; 87070; 87075; 87077; 87186; 87205; 87340; 88305-TC; 88311-TC; 93005; 93010; 93306-TC; 94640; 94760; 97116-GP; 97161-GP; 99285-25; G0480; J0475; J0885; J1644

== ENCOUNTER 2019-05-16 09:44 | Inpatient (IN) | payer OTHER ==
[2019-05-16 10:17] VITALS: BMI 30.7
--- NOTE | 2019-05-16 10:33 | PDOC ---
History of Present Illness - General Chief Complaint: Vaginal Sxs Stated Complaint: VAGINAL BURNING Time Seen by Provider: 05/16/19 10:31 History Source: Patient Exam Limitations: No Limitations - History of Present Illness Initial Comments: 05/16/19 10:32 Tayler Mckeon is a 53F with PMH poorly controlled IDDM c/b ESRD with MWF HD and left foot 5th toe amputation for gangrene presenting with vaginal burning for 4 days. Patient reports that she began having vaginal burning 4 days ago that has progressed to labial swelling and tenderness. Denies vaginal bleeding but has some clear/white discharge. Saw her PMD Dr. Barrios 2 days ago and prescribed fluconazole 150mg 2x an clotrimazole cream, patient has taken both and has not had any improvements, said her pain is worse now. Has had yeast infections in the past, this feels similar but worse than priors. Denies abdominal pain, diarrhea, rectal pain, fever/chills, nausea/vomiting. Does say she was dizzy this morning after being in the shower and feeling the burning from the water on her labia, denies syncope or fall. Last sexual intercourse 7 days ago prior to symptom onset, one male partner for last 10 years, used oil-based lubrication that she has used in the past, asymptomatic immediately after. No urinary symptoms, makes little urine, gets MWF HD and missed yesterday due to vaginal burning. Denies chest pain, SOB, abdominal pain. 2 weeks 2/p amputation of left 5th digit for gangrene, no other foot symptoms. Past History - Past Medical History Allergies/Adverse Reactions: Allergies Allergy/AdvReac Type Severity Reaction Status Date / Time No Known Allergies Allergy Verified 05/16/19 14:07 Home Medications: Ambulatory Orders Baclofen 10 mg PO HS 12/14/16 Bisacodyl [Bisacodyl -] 5 mg PO DAILY 12/14/16 Calcium Acetate 667 mg PO AC 12/14/16 Dexlansoprazole [Dexilant] 60 mg PO DAILY 12/14/16 Hydralazine HCl 100 mg PO TID 12/14/16 Melatonin 3 mg PO HS 12/14/16 Metoclopramide HCl [Reglan -] 10 mg PO TID 12/14/16 Buspirone HCl [Buspar -] 10 mg PO BID 30 Days #60 tablet 07/23/18 Losartan Potassium 100 mg PO DAILY #30 tablet 07/23/18 Nifedipine ER [Procardia XL -] 90 mg PO DAILY #30 tab.er.24 07/23/18 Acetaminophen [Tylenol .Regular Strength -] 650 mg PO Q6H PRN #20 tablet Carvedilol [Coreg -] 25 mg PO BID tablet 04/16/19 Insulin (Levemir) [Levemir Vial] 30 units SQ HS units 04/16/19 Insulin (Levemir) [Levemir Vial] 35 units SQ 0700 units 04/16/19 Fluconazole 150 mg PO ONCE #3 tablet 05/16/19 Nystatin/Triamcin [Nystatin-Triamcinolone Cream] 30 gm VG BID #1 cream..g. 05/16 metroNIDAZOLE [Flagyl -] 500 mg PO BID #14 tablet 05/16/19 Anemia: Yes Asthma: Yes Cancer: No Cardiac Disorders: No CVA: No COPD: No CHF: No Dementia: No Diabetes: Yes Dialysis: Yes (M,W,F) GI Disorders: Yes (GASTRITIS,CONSTIPATION,ACID REFLUX) Disorders: Yes (HEMODIALYSIS) HTN: Yes Hypercholesterolemia: Yes Liver Disease: No Seizures: No Thyroid Disease: No - Surgical History Abdominal Surgery: Yes Appendectomy: No Cardiac Surgery: No Cholecystectomy: No Lung Surgery: No Neurologic Surgery: No Orthopedic Surgery: Yes (r hand sx for broken r thumb) - Immunization History Immunization Up to Date: Yes - Psycho Social/Smoking Cessation Hx Smoking Status: No Smoking History: Current every day smoker Have you smoked in the past 12 months: Yes Number of Cigarettes Smoked Daily: 10 Cigars Per Day: 0 Information on smoking cessation initiated: No 'Breaking Loose' booklet given: 07/16/18 Hx Alcohol Use: No Drug/Substance Use Hx: No Substance Use Type: None Hx Substance Use Treatment: No Review of Systems - Review of Systems Able to Perform ROS?: Yes Constitutional: No: Chills, Fever, Weakness HEENTM: No: Symptoms Reported Respiratory: No: Cough, Shortness of Breath Cardiac (ROS): No: Chest Pain, Irregular Heart Rate, Syncope ABD/GI: No: Constipated, Diarrhea, Nausea, Vomiting : Yes: Burning, Discharge. No: Hematuria Musculoskeletal: Yes: Symptoms Reported Integumentary: Yes: Erythema, Rash, Other (pruritis/burning to labia) Neurological: Yes: Symptoms reported Endocrine: Yes: Symptoms Reported Hematologic/Lymphatic: Yes: Symptoms Reported All Other Systems: Reviewed and Negative *Physical Exam - Vital Signs Last Vital Signs Temp Pulse Resp BP Pulse Ox 98.1 F 71 16 128/59 L 100 05/16/19 10:12 05/16/19 10:12 05/16/19 10:12 05/16/19 10:12 05/16/19 10:12 - Physical Exam General Appearance: Yes: Nourished, Appropriately Dressed, Moderate Distress, Other (cannot sit still in chair) HEENT: positive: EOMI, CLAIRE, Normal ENT Inspection, Normal Voice, Pharynx Normal. negative: Scleral Icterus (R), Scleral Icterus (L), Muffled/Hoarse voice, Pharyngeal Erythema, Tonsillar Exudate, Tonsillar Erythema Neck: positive: Trachea midline, Normal Thyroid, Supple. negative: Tender, Lymphadenopathy (R), Lymphadenopathy (L), Tender lateral, Tender midline Respiratory/Chest: positive: Lungs Clear, Normal Breath Sounds. negative: Chest Tender, Respiratory Distress, Decreased Breath Sounds, Crackles, Rales, Rhonchi, Stridor, Wheezing Cardiovascular: positive: Regular Rhythm, Regular Rate. negative: Murmur Female Pelvic Exam: negative: normal external exam (labia erythematous and swollen with erythema extension from the clitoral mcclure to perineum, tender to light touch, speculum exam reveals large amout of clotrimazole cream with serous yellow and white discharge without bleeding, os closed, vaginal vault erythematous, no CMT or adnexal tenderness.) Gastrointestinal/Abdominal: positive: Normal Bowel Sounds, Flat, Soft, Guarding. negative: Tender, Pulsatile Mass, Rebound Musculoskeletal: positive: Normal Inspection. negative: CVA Tenderness Extremity: positive: Normal Capillary Refill, Normal Inspection, Normal Range of Motion. negative: Tender Integumentary: positive: Normal Color, Dry, Warm, Erythema, Rash, Swelling, Other Neurologic: positive: Fully Oriented, Alert, Normal Mood/Affect, Normal Response , Motor Strength 5/5. negative: Numbness, Sensory Deficit ED Treatment Course - LABORATORY CBC & Chemistry Diagram: 05/16/19 12:15 05/16/19 12:15 Medical Decision Making - Medical Decision Making 05/16/19 12:19 Patient is a 53F with PMH IDDM, ESRD and prior yeast infections presenting with labial erythema and burning consistent with yeast infection. Has been treated outpatient with fluconazole already, here for symptoms without improvement. exam consistent with vulvovaginal candidiasis vs. labial cellulitis given lack of response to fluconazole. No systemic symptoms. Has missed dialysis for one day due to symptoms, possibility exists of skipping tomorrow as well due to symptoms. - CMP/CBC for eval of lytes given ESRD with no HD - 150mg PO fluconazole for treatment of presumed noemy infection - sending GC swab for eval of GC as cause of labial infection - UA/UC if possible given low urine output for eval UTI 05/16/19 13:47 Labs notable for: - Cr 10, consistent with ESRD - K 6.1 slightly hemolyzed ECG ordered for hyperkalemia, shows NSR at HR 69 normal QRS 94 with peaked T waves Giving 1000mg calcium gluconate for cardiac protection and calling renal for evaluation Auto Bumper Straightener is Dr. Patterson 05/16/19 14:[address] Arredondo, who will admit patient for dialysis today. Would like Med-Surg bed for dialysis and [facility] admission. Patient agrees to be admitted. Triamcinolone/Nystatin cream, 150mg Diflucan, and 500mg BID Flagyl sent to patient's pharmacy already for treatment should she be discharged home. Has gotten 150mg Diflucan in ED today. 05/16/19 15:03 Labs notable for K 6.1, ECG ordered. ECG shows NSR with HR 69, QRS 94, QTc 450 with peaked T waves, no ischemic changes. Given 1g calcium gluconate for cardiac protection. Renal consulted, Dr. Arredondo evaluated patient and she agrees to be admitted for dialysis today, would like Med-Surg admission for dialysis. Spoke to Dr. Duque for admission, accepts under his service. Patient sent to dialysis. Discharge - Discharge Information Problems reviewed: Yes Clinical Impression/Diagnosis: Vulvovaginitis, End stage renal disease on dialysis, Hyperkalemia Condition: Stable Disposition: HOME - Admission Yes - Additional Discharge Information - Follow up/Referral - Patient Discharge Instructions - Post Discharge Activity
[2019-05-16] MEDS ORDERED: FLUCONAZOLE 150 MG TABLET PO ONE ×2 (11:24→11:35)
--- NOTE | 2019-05-16 11:50 | PDOC ---
Documentation entered by Rosemary Bernard SCRIBE, acting as scribe for Reyes Guerrero MD. Reyes Guerrero MD: This documentation has been prepared by the Joana henao Brenda, SCRIBE, under my direction and personally reviewed by me in its entirety. I confirm that the documentation accurately reflects all work, treatment, procedures, and medical decision making performed by me. Attending Attestation - Resident Resident Name: RomaMark - ED Attending Attestation I have performed the following: I have examined & evaluated the patient, The case was reviewed & discussed with the resident, I agree w/resident's findings & plan, Exceptions are as noted - HPI HPI: 05/16/19 10:59 The patient is a 53 year old female with a significant PMH of anxiety, HTN, poorly controled IDDM s/p toe amputation, ESRD on HD (M/W/F) who presents to the ED for evaluation of swelling and burning of her vagina. Patient reports pain during urination, as well as redness and swelling to the labia. She states that she gets recurrent yeast infections, and this feels similar. Notes seeing her PCP on Monday (05/14/2019) who prescribed a dose of diflucan and clotrimazole cream, which she has been applying. Patient notes missing her dialysis yesterday due to pain/burning and difficulty sitting. The patient denies chest pain, shortness of breath, headache and dizziness. Denies fever, chills, nausea, vomiting, diarrhea and constipation. Allergies: NKA Past surgical history: Social history:Current everyday smoker (1 pack per 3 days) PCP: Denis - Physicial Exam PE: 05/16/19 11:20 GENERAL: Awake, alert, and fully oriented, in no acute distress. HEAD: No signs of trauma EYES: PERRLA, EOMI, sclera anicteric, conjunctiva clear ENT: Auricles normal inspection, hearing grossly normal, nares patent, oropharynx clear without exudates. Moist mucosa NECK: Nontender, no stepoffs, Normal ROM, supple, no lymphadenopathy, JVD, or masses LUNGS: Breath sounds equal, clear to auscultation bilaterally. No wheezes, and no crackles HEART: Regular rate and rhythm, normal S1 and S2, no murmurs, rubs or gallops ABDOMEN: Soft, nontender, normoactive bowel sounds. No guarding, no rebound. No masses EXTREMITIES: Normal range of motion, no edema. No clubbing or cyanosis. No cords, erythema, or tenderness NEUROLOGICAL: Cranial nerves II through XII intact. 5/5 strength and sensation in all extremities, Normal speech, normal gait, normal cerebellar function SKIN: Warm, Dry, normal turgor, no rashes or lesions noted. : + copious white discharge, with erythema and tenderness throughout vaginal canal - Medical Decision Making 05/16/19 11:53 53 F with likely noemy vulvovaginitis. Will check labs due to missed HD yesterday. - Labs - Diflucan 150mg PO - Topical steroids + antifungal cream 05/16/19 14:15 Labs notable for K 6, with mild hemolysis Dr. Arredondo in ED to evaluate pt, will dialyze her today.
[2019-05-16 12:41] LABS: EOS % 3.1 % (0-4.5); LYMPH % 11.6 % (8-40); MCHC 33.2 g/dl (32.0-36.0); MEAN CELL VOLUME 99.4 fl (80-96); MEAN PLT VOLUME 9.2 fl (7.5-11.1); MONO % 8.3 % (3.8-10.2); PLATELET COUNT 234 K/MM3 (134-434); RBC 3.62 M/mm3 (3.60-5.2); RDW 14.7 % (11.6-15.6); WHITE BLOOD COUNT 10.2 K/mm3 (4.0-10.0)
[2019-05-16 13:20] LABS: ALBUMIN 3.6 g/dl (3.4-5.0); BILIRUBIN,TOTAL 0.3 mg/dL (0.2-1); CALCIUM 8.9 mg/dL (8.5-10.1); TOT PROT 8.4 g/dl (6.4-8.2)
[2019-05-16 13:23] LABS: CREATININE 10.7 mg/dL (0.55-1.3); POTASSIUM 6.2 mmol/L (3.5-5.1)
[2019-05-16] MEDS ORDERED: CALCIUM GLUCONATE 10% - 1,000 MG/10 ML VIAL IVPUSH ONE (13:45)
[2019-05-16] MEDS ORDERED: CALCIUM GLUCONATE 10% - 1,000 MG/10 ML VIAL ONE (13:57)
[2019-05-16] MEDS ORDERED: SODIUM CHLORIDE 250 ML IV PRN (15:16)
[2019-05-16] MEDS ORDERED: HEPARIN NA (PORCINE) 5,000 UNITS/ML 1ML VIAL IVPUSH ONE (15:16)
--- NOTE | 2019-05-16 15:21 | CONSULT ---
Consult Consult Specialty:: Nephrology Reason for Consultation:: ESRD - History of Present Illness Chief Complaint: vaginal burning History of Present Illness: Pt is a 53 year old female with pmhx of esrd, dm, htn, and gastroparesis who presents to the ER with vaginal burning and itching. SHe missed her HD yesterday. She was found to be hyperkalemic and I was called to evaluate her. She was going to sign out AMA but she has reconsidered. She agrees to stay for HD today. She denies shortness of breath or palpitations. She denies fevers or chills. 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 Cardio/Vascular: Yes: HTN, Hyperlipdemia Pulmonary: Yes: Asthma Gastrointestinal: Yes: GERD Renal/: Yes: Renal Failure, Hemodialysis ...LMP: 12/01/14 Endocrine: Yes: Diabetes Mellitus - Past Surgical History Past Surgical History: Yes: AV Fistula/Graft (LUE), (x3) - Alcohol/Substance Use Hx Alcohol Use: No History of Substance Use: reports: None - Smoking History Smoking history: Current every day smoker Have you smoked in the past 12 months: Yes Aproximately how many cigarettes per day: 10 - Social History Usual Living Arrangement: Alone ADL: Independent History of Recent Travel: No Home Medications - Allergies Allergies/Adverse Reactions: Allergies Allergy/AdvReac Type Severity Reaction Status Date / Time No Known Allergies Allergy Verified 05/16/19 14:07 - Home Medications Home Medications: Ambulatory Orders Baclofen 10 mg PO HS 12/14/16 Bisacodyl [Bisacodyl -] 5 mg PO DAILY 12/14/16 Calcium Acetate 667 mg PO AC 12/14/16 Dexlansoprazole [Dexilant] 60 mg PO DAILY 12/14/16 Hydralazine HCl 100 mg PO TID 12/14/16 Melatonin 3 mg PO HS 12/14/16 Metoclopramide HCl [Reglan -] 10 mg PO TID 12/14/16 Buspirone HCl [Buspar -] 10 mg PO BID 30 Days #60 tablet 07/23/18 Losartan Potassium 100 mg PO DAILY #30 tablet 07/23/18 Nifedipine ER [Procardia XL -] 90 mg PO DAILY #30 tab.er.24 07/23/18 Acetaminophen [Tylenol .Regular Strength -] 650 mg PO Q6H PRN #20 tablet Carvedilol [Coreg -] 25 mg PO BID tablet 04/16/19 Insulin (Levemir) [Levemir Vial] 30 units SQ HS units 04/16/19 Insulin (Levemir) [Levemir Vial] 35 units SQ 0700 units 04/16/19 Fluconazole 150 mg PO ONCE #3 tablet 05/16/19 Nystatin/Triamcin [Nystatin-Triamcinolone Cream] 30 gm VG BID #1 cream..g. 05/16 Family Medical History Family History: Denies Review of Systems - Review of Systems Constitutional: reports: Malaise Eyes: reports: No Symptoms HENT: reports: No Symptoms Neck: reports: No Symptoms Cardiovascular: reports: No Symptoms Respiratory: reports: No Symptoms Gastrointestinal: reports: No Symptoms Genitourinary: reports: Burning Musculoskeletal: reports: No Symptoms Integumentary: reports: No Symptoms Neurological: reports: No Symptoms Endocrine: reports: No Symptoms Hematology/Lymphatic: reports: No Symptoms Psychiatric: reports: No Symptoms Physical Exam Vital Signs: Vital Signs Temperature 98.1 F 05/16/19 10:12 Pulse Rate 71 05/16/19 10:12 Respiratory Rate 16 05/16/19 10:12 Blood Pressure 128/59 L 05/16/19 10:12 O2 Sat by Pulse Oximetry (%) 100 05/16/19 10:12 Constitutional: Yes: Calm Eyes: Yes: Conjunctiva Clear HENT: Yes: Atraumatic Neck: Yes: Supple Cardiovascular: Yes: S1, S2 Respiratory: Yes: CTA Bilaterally Gastrointestinal: Yes: Soft Renal/: Yes: WNL Musculoskeletal: Yes: WNL Edema: Yes Edema: LLE: 1+, RLE: 1+ Neurological: Yes: Oriented Psychiatric: Yes: Oriented Labs: CBC, BMP 05/16/19 12:15 05/16/19 12:15 Laboratory Tests 05/16/19 05/16/19 12:15 12:15 WBC 10.2 H Hgb 12.0 Sodium 136 Potassium 6.2 H* BUN 63.0 H Creatinine 10.7 H* Assessment/Plan Current Medications Generic Name Dose Route Start Last Admin Trade Name Freq PRN Reason Stop Dose Admin Heparin Sodium (Porcine) 2,000 unit 05/16/19 15:16 Heparin - IVPUSH 05/16/19 15:17 ONCE ONE Heparin Sodium (Porcine) 500 unit 05/16/19 15:30 Heparin - IVPUSH 05/16/19 17:31 Q1H VASQUEZ Sodium Chloride 250 mls @ 3,000 mls/hr 05/16/19 15:16 Normal Saline - IV 05/17/19 15:16 PRN PRN Hypotension during Dialysis Impression 1. ESRD 2. DM 3. HTN 4. gastroparesis 5. vaginal infection 6. anemia 7. peripheral neuropathy 8. s/p left foot fifth digit amputation 9. hyperkalemia Plan - HD today - pt received diflucan in er - she has HD set up as outpt - will treat potassium with HD - HD time 345 400 abf 2000 heparin bolus [address] Arredondo
[2019-05-16] MEDS: HEPARIN NA (PORCINE) 5,000 UNITS/ML 1ML VIAL IVPUSH SCH ×2 (15:30→16:30)
[2019-05-16 15:35] VITALS: TEMP 98.4
--- NOTE | 2019-05-16 18:03 | HP ---
CHIEF COMPLAINT: vaginal itching and burning PCP: Dr. Arredondo 53 F h/o ESRD on HD (MWF), HTN, Type 2 DM (on insulin), GERD, L 5th toe amputation, Gastroparesis, Neuropathy, Anxiety/Depression/?Bipolar disorder, presents to ER with chief ocmplaint of vaginal itching and burning x4 days. Patient was treated for candidal vulvovaginitis w/ Diflucan but she complains burning, erythema and itching got worse. Not a/w fever/chills/SOB/CP. Endorses similar yeast infection in the past but this was worse. Patient found to have ARF in ED, w/ hyperkalemia and some peaked T waves on EKG, received 1g ca gluconate and sent for HD as per renal recommendations. Patient however comfortable during exam, in her normal clothes, asking for turkey sandwich, speaking in full sentences. Recent Travel: denies PAST MEDICAL HISTORY: as above PAST SURGICAL HISTORY: L 5th toe amputation Social History: Smoking:+ Alcohol:denies Drugs: denies Allergies No Known Allergies Allergy (Verified 05/16/19 14:07) HOME MEDICATIONS: Home Medications Medication Instructions Recorded Baclofen 10 mg PO HS 12/14/16 Bisacodyl [Bisacodyl -] 5 mg PO DAILY 12/14/16 Calcium Acetate 667 mg PO AC 12/14/16 Dexlansoprazole [Dexilant] 60 mg PO DAILY 12/14/16 Hydralazine HCl 100 mg PO TID 12/14/16 Melatonin 3 mg PO HS 12/14/16 Metoclopramide HCl [Reglan -] 10 mg PO TID 12/14/16 Buspirone HCl [Buspar -] 10 mg PO BID 30 Days #60 tablet 07/23/18 Losartan Potassium 100 mg PO DAILY #30 tablet 07/23/18 Nifedipine ER [Procardia XL -] 90 mg PO DAILY #30 tab.er.24 07/23/18 Acetaminophen [Tylenol .Regular 650 mg PO Q6H PRN #20 tablet 04/16/19 Strength -] Carvedilol [Coreg -] 25 mg PO BID tablet 04/16/19 Insulin (Levemir) [Levemir Vial] 30 units SQ HS units 04/16/19 Insulin (Levemir) [Levemir Vial] 35 units SQ 0700 units 04/16/19 Fluconazole 150 mg PO ONCE #3 tablet 05/16/19 Nystatin/Triamcin 30 gm VG BID #1 cream..g. 05/16/19 [Nystatin-Triamcinolone Cream] metroNIDAZOLE [Flagyl -] 500 mg PO BID #14 tablet 05/16/19 PHYSICAL EXAMINATION Vital Signs - 24 hr 05/16/19 05/16/19 05/16/19 10:12 10:45 15:00 Temperature 98.1 F 98.6 F Pulse Rate 71 Pulse Rate [ 92 H Right Radial] Respiratory 16 18 Rate Blood Pressure 128/59 L Blood Pressure 148/64 [Right Arm] O2 Sat by Pulse 100 99 99 Oximetry (%) 05/16/19 05/16/19 05/16/19 15:15 15:20 15:50 Temperature 98.4 F Pulse Rate 82 80 66 Pulse Rate [ Right Radial] Respiratory 18 18 18 Rate Blood Pressure 170/90 177/96 H 178/95 H Blood Pressure [Right Arm] O2 Sat by Pulse Oximetry (%) 05/16/19 05/16/19 05/16/19 16:20 16:50 17:20 Temperature Pulse Rate 71 77 80 Pulse Rate [ Right Radial] Respiratory 18 18 18 Rate Blood Pressure 195/104 H 171/85 H 162/83 Blood Pressure [Right Arm] O2 Sat by Pulse Oximetry (%) 05/16/19 17:50 Temperature Pulse Rate 73 Pulse Rate [ Right Radial] Respiratory 18 Rate Blood Pressure 156/83 Blood Pressure [Right Arm] O2 Sat by Pulse Oximetry (%) PE GA comfortable, AAox3 speaking in full sentences, NAD HEENT NC/AT, EOMI, no oral thrush, No JVD, neck supple Chest CTAB, no crackles or wheezing CVS S1, S2+, RRR Abd Soft, NT, ND, no guarding Ext No LE edema, no calf tenderness (as per resident) swollen/erythematous labia majora w/ cottage cheese like discharge Laboratory Results - last 24 hr 05/16/19 05/16/19 12:15 12:15 WBC 10.2 H RBC 3.62 Hgb 12.0 Hct 36.0 D MCV 99.4 H MCH 33.0 MCHC 33.2 RDW 14.7 Plt Count 234 D MPV 9.2 Absolute Neuts (auto) 7.7 Neutrophils % 76.0 Lymphocytes % 11.6 D Monocytes % 8.3 Eosinophils % 3.1 Basophils % 1.0 Nucleated RBC % 0 Sodium 136 Potassium 6.2 H* Chloride 102 Carbon Dioxide 23 Anion Gap 11 BUN 63.0 H Creatinine 10.7 H* Est GFR (CKD-EPI)AfAm 4.24 Est GFR (CKD-EPI)NonAf 3.66 Random Glucose 173 H Calcium 8.9 Total Bilirubin 0.3 AST 28 ALT 9 L Alkaline Phosphatase 213 H Total Protein 8.4 H Albumin 3.6 ASSESSMENT/PLAN: 53 F h/o uncontrolled DM 2, w/ ESRD on HD (MWF), GERD, L 5th toe gangrene s/p amputation, DM gastroparesis, neuropathy, mood disorder, presents w/ complaints of vulvovaginitis, and found to be in worsening renal failure w/ hyperkalemia requiring urgent HD. ESRD on HD missed HD yesterday now with hyperkalemia, aggressive treatment for hyperK, early HD, give 1g calcium gluconate reinforced compliance w/ HD schedule, known to [facility] w/ similar presentations Renal consult: Dr Arredondo (patient known to his service) Uncontrolled T2Dm ISS, basal coverage as needed for glucose control Renal/DM diet, reinforce diet/exercise/weight loss Carin vulvovaginitis treatment likely failed d/t uncontrolled diabetes, will resume treatment with PO Diflucan, start Flagyl PO, consult Software Development Analyst service, send STD workup GERD restart PPI DM gastroparesis not in acute exacerbation, reinforced small frequent meals Reglan PRN Anxiety/depression/?Bipolar disorder Mood stable, denies SI/HI DVT ppx: Heparin SC Admit to med-surg [place] in AM Visit type - Emergency Visit Emergency Visit: Yes ED Registration Date: 05/16/19 Care time: The patient presented to the Emergency Department on the above date and was hospitalized for further evaluation of their emergent condition. - New Patient This patient is new to me today: Yes Date on this admission: 05/16/19 - Critical Care Critical Care patient: No
[2019-05-16] MEDS ORDERED: ACETAMINOPHEN 325 MG TABLET (FP) PO PRN (18:26)
[2019-05-16 18:42] VITALS: BP 160/98; PULSE 80
[2019-05-16 19:59] LABS: BLOOD UREA NITROGEN 19.8 mg/dL (7-18); CALCIUM 8.3 mg/dL (8.5-10.1); CREATININE 4.2 mg/dL (0.55-1.3); POTASSIUM 3.7 mmol/L (3.5-5.1)
[2019-05-16] MEDS ORDERED: INSULIN SLIDING SCALE (NOVOLOG) 1 VIAL SQ SCH (22:00)
[2019-05-16] MEDS ORDERED: CARVEDILOL 25 MG TABLET (FP) PO SCH (22:00)
[2019-05-16] MEDS ORDERED: MELATONIN 1 MG TABLET PO SCH (22:00)
[2019-05-16] MEDS ORDERED: HEPARIN NA (PORCINE) 5,000 UNITS/ML 1ML VIAL SQ SCH (22:00)
[2019-05-16] MEDS ORDERED: INSULIN (LEVEMIR) 100 UNITS/ML UNITS SQ SCH (22:00)
[2019-05-16] MEDS ORDERED: busPIRone HCL 10 MG TABLET (FP) PO SCH (22:00)
[2019-05-16] MEDS ORDERED: hydrALAZINE HCL 50 MG TABLET (FP) PO SCH (22:00)
[2019-05-17] MEDS ORDERED: NIFEdipine E.R. 90 MG TABLET PO SCH (10:00)
[2019-05-17] MEDS ORDERED: PANTOPRAZOLE 40 MG TABLET PO SCH (10:00)
--- NOTE | 2019-05-17 14:08 | EKG ---
Test Reason : Blood Pressure : / mmHG Vent. Rate : 069 BPM Atrial Rate : 069 BPM P-R Int : 150 ms QRS Dur : 094 ms QT Int : 420 ms P-R-T Axes : 036 039 025 degrees QTc Int : 450 ms NORMAL SINUS RHYTHM WITH SINUS ARRHYTHMIA NORMAL ECG WHEN COMPARED WITH ECG OF 02-APR-2019 21:44, NO SIGNIFICANT CHANGE WAS FOUND Confirmed by MEET PEDROZA MD ([id number]) on 05/17/2019 2:07:53 PM Referred By: Confirmed By:MEET PEDROZA MD
== END 2019-05-16 19:35 | disposition left against medical advice (07) | DRG 640 ==
LOC: JER 09:44 → SUPCPDRO 09:44 → JERBED 14:18 → J5S 18:41
PROC: 5A1D70Z Performance of Urinary Filtration, Intermittent, Less than 6 Hours Per Day (ICD-10-PCS; principal; 2019-05-16)
DX: E87.5 Hyperkalemia (principal); N18.6 End stage renal disease; N17.9 Acute kidney failure, unspecified; I12.0 Hypertensive chronic kidney disease with stage 5 chronic kidney disease or end stage renal disease; E11.65 Type 2 diabetes mellitus with hyperglycemia; E11.43 Type 2 diabetes mellitus with diabetic autonomic (poly)neuropathy; K31.84 Gastroparesis; K21.9 Gastro-esophageal reflux disease without esophagitis; N76.0 Acute vaginitis; F41.8 Other specified anxiety disorders; E11.40 Type 2 diabetes mellitus with diabetic neuropathy, unspecified; E11.22 Type 2 diabetes mellitus with diabetic chronic kidney disease; Z99.2 Dependence on renal dialysis; F17.210 Nicotine dependence, cigarettes, uncomplicated
CPT/HCPCS: 11042; 15275; 36415; 80048; 80053; 82962; 85025; 86803; 87340; 87491; 87591; 93005; 93010; 93990-TC; 99284-25; G0277; J1644; Q4196

== ENCOUNTER 2019-07-17 18:55 | Emergency (ER) | payer OTHER ==
[2019-07-17 19:17] VITALS: BMI 30.7
--- NOTE | 2019-07-17 19:26 | PDOC ---
History of Present Illness - General Chief Complaint: Nausea/Vomiting Stated Complaint: CHEST PAIN Time Seen by Provider: 07/17/19 19:26 - History of Present Illness Initial Comments: 53F 07/17/19 19:26 Past History - Past Medical History Allergies/Adverse Reactions: Allergies Allergy/AdvReac Type Severity Reaction Status Date / Time No Known Allergies Allergy Verified 07/17/19 19:09 Home Medications: Ambulatory Orders Baclofen 10 mg PO HS 12/14/16 Bisacodyl [Bisacodyl -] 5 mg PO DAILY 12/14/16 Calcium Acetate 667 mg PO AC 12/14/16 Dexlansoprazole [Dexilant] 60 mg PO DAILY 12/14/16 Hydralazine HCl 100 mg PO TID 12/14/16 Melatonin 3 mg PO HS 12/14/16 Metoclopramide HCl [Reglan -] 10 mg PO TID 12/14/16 Buspirone HCl [Buspar -] 10 mg PO BID 30 Days #60 tablet 07/23/18 Losartan Potassium 100 mg PO DAILY #30 tablet 07/23/18 Nifedipine ER [Procardia XL -] 90 mg PO DAILY #30 tab.er.24 07/23/18 Acetaminophen [Tylenol .Regular Strength -] 650 mg PO Q6H PRN #20 tablet 04/16/19 Carvedilol [Coreg -] 25 mg PO BID tablet 04/16/19 Insulin (Levemir) [Levemir Vial] 30 units SQ HS units 04/16/19 Insulin (Levemir) [Levemir Vial] 35 units SQ 0700 units 04/16/19 Fluconazole 150 mg PO ONCE #3 tablet 05/16/19 Nystatin/Triamcin [Nystatin-Triamcinolone Cream] 30 gm VG BID #1 cream..g. 05/16/19 Ammonium Lactate Cream [Lac-Hydrin 12% Cream -] 1 applic TP DAILY #1 tube 06/24/19 Anemia: Yes Asthma: Yes Cancer: No Cardiac Disorders: No CVA: No COPD: No CHF: No Dementia: No Diabetes: Yes Dialysis: Yes (M,W,F) GI Disorders: Yes (GASTRITIS,CONSTIPATION,ACID REFLUX) Disorders: Yes (HEMODIALYSIS) HTN: Yes Hypercholesterolemia: Yes Liver Disease: No Seizures: No Thyroid Disease: No - Surgical History Abdominal Surgery: Yes Appendectomy: No Cardiac Surgery: No Cholecystectomy: No Lung Surgery: No Neurologic Surgery: No Orthopedic Surgery: Yes (r hand sx for broken r thumb) - Immunization History Immunization Up to Date: Yes - Psycho Social/Smoking Cessation Hx Smoking Status: No Smoking History: Never smoked Have you smoked in the past 12 months: Yes Number of Cigarettes Smoked Daily: 10 Cigars Per Day: 0 'Breaking Loose' booklet given: 07/16/18 Hx Alcohol Use: No Drug/Substance Use Hx: No Substance Use Type: None Hx Substance Use Treatment: No *Physical Exam - Vital Signs Last Vital Signs Temp Pulse Resp BP Pulse Ox 97.8 F 85 18 192/85 H 99 07/17/19 19:04 07/17/19 19:04 07/17/19 19:04 07/17/19 19:04 07/17/19 19:04 Discharge - Follow up/Referral Referrals: Derrek Patterson MD [Primary Care Provider] - - Patient Discharge Instructions - Post Discharge Activity
--- NOTE | 2019-07-17 19:34 | PDOC ---
History of Present Illness - General Chief Complaint: Nausea/Vomiting Stated Complaint: CHEST PAIN Time Seen by Provider: 07/17/19 19:26 - History of Present Illness Initial Comments: 07/17/19 19:48 53 y/o F hx of HTN, HLD, DM, Gastritis, HD (MWF) HLD, Asthma presents to the ED with 2 days of epigastric pain. She reports pain radiates to center of chest and left shoulder. She reports taking Gaviscon and 1500mg of tylenol about 4-5 hrs ago which has not relieved her pain. She has had 3-4 episodes of NBNB emesis. She denies any fevers, chills, diarrhea, bloody stool, sick contacts, dysuria, hematuria, flank pain. Past History - Past Medical History Allergies/Adverse Reactions: Allergies Allergy/AdvReac Type Severity Reaction Status Date / Time No Known Allergies Allergy Verified 07/17/19 19:09 Home Medications: Ambulatory Orders Baclofen 10 mg PO HS 12/14/16 Bisacodyl [Bisacodyl -] 5 mg PO DAILY 12/14/16 Calcium Acetate 667 mg PO AC 12/14/16 Dexlansoprazole [Dexilant] 60 mg PO DAILY 12/14/16 Hydralazine HCl 100 mg PO TID 12/14/16 Melatonin 3 mg PO HS 12/14/16 Metoclopramide HCl [Reglan -] 10 mg PO TID 12/14/16 Buspirone HCl [Buspar -] 10 mg PO BID 30 Days #60 tablet 07/23/18 Losartan Potassium 100 mg PO DAILY #30 tablet 07/23/18 Nifedipine ER [Procardia XL -] 90 mg PO DAILY #30 tab.er.24 07/23/18 Acetaminophen [Tylenol .Regular Strength -] 650 mg PO Q6H PRN #20 tablet 04/16/19 Carvedilol [Coreg -] 25 mg PO BID tablet 04/16/19 Insulin (Levemir) [Levemir Vial] 30 units SQ HS units 04/16/19 Insulin (Levemir) [Levemir Vial] 35 units SQ 0700 units 04/16/19 Fluconazole 150 mg PO ONCE #3 tablet 05/16/19 Nystatin/Triamcin [Nystatin-Triamcinolone Cream] 30 gm VG BID #1 cream..g. 05/16/19 Ammonium Lactate Cream [Lac-Hydrin 12% Cream -] 1 applic TP DAILY #1 tube 06/24/19 Anemia: Yes Asthma: Yes Cancer: No Cardiac Disorders: No CVA: No COPD: No CHF: No Dementia: No Diabetes: Yes Dialysis: Yes (M,W,F) GI Disorders: Yes (GASTRITIS,CONSTIPATION,ACID REFLUX) Disorders: Yes (HEMODIALYSIS) HTN: Yes Hypercholesterolemia: Yes Liver Disease: No Seizures: No Thyroid Disease: No - Surgical History Abdominal Surgery: Yes Appendectomy: No Cardiac Surgery: No Cholecystectomy: No Lung Surgery: No Neurologic Surgery: No Orthopedic Surgery: Yes (r hand sx for broken r thumb) - Immunization History Immunization Up to Date: Yes - Psycho Social/Smoking Cessation Hx Smoking Status: No Smoking History: Never smoked Have you smoked in the past 12 months: Yes Number of Cigarettes Smoked Daily: 10 Cigars Per Day: 0 'Breaking Loose' booklet given: 07/16/18 Hx Alcohol Use: No Drug/Substance Use Hx: No Substance Use Type: None Hx Substance Use Treatment: No Review of Systems - Review of Systems Comments:: 07/17/19 20:07 GENERAL/CONSTITUTIONAL: No fever or chills. No weakness. HEAD, EYES, EARS, NOSE AND THROAT: No change in vision. No ear pain or discharge. No sore throat. CARDIOVASCULAR: + chest pain no shortness of breath RESPIRATORY: No cough, wheezing, or hemoptysis. GASTROINTESTINAL: no diarrhea GENITOURINARY: No dysuria, frequency, or change in urination. MUSCULOSKELETAL: No joint or muscle swelling or pain. No neck or back pain. SKIN: No rash NEUROLOGIC: No headache, vertigo, loss of consciousness, or change in strength/sensation. ENDOCRINE: No increased thirst. No abnormal weight change HEMATOLOGIC/LYMPHATIC: No anemia, easy bleeding, or history of blood clots. ALLERGIC/IMMUNOLOGIC: No hives or skin allergy. *Physical Exam - Vital Signs Last Vital Signs Temp Pulse Resp BP Pulse Ox 97.8 F 85 18 192/85 H 99 07/17/19 19:04 07/17/19 19:04 07/17/19 19:04 07/17/19 19:04 07/17/19 19:04 - Physical Exam 07/17/19 20:06 GENERAL: Awake, alert, and fully oriented uncomfortable. HEAD: No signs of trauma, normocephalic, atraumatic EYES: PERRLA, EOMI, sclera anicteric, conjunctiva clear ENT: Auricles normal inspection, hearing grossly normal, nares patent, oropharynx clear without exudates. Moist mucosa NECK: Normal ROM, supple, no lymphadenopathy, JVD, or masses LUNGS: No distress, speaks full sentences, clear to auscultation bilaterally HEART: Regular rate and rhythm, normal S1 and S2, no murmurs, rubs or gallops, peripheral pulses normal and equal bilaterally. ABDOMEN: Soft, epigastric tenderness. no flank tendernsess normoactive bowel sounds. No guarding, no rebound. No masses EXTREMITIES : Normal inspection, Normal range of motion, no edema. No clubbing or cyanosis NEUROLOGICAL: Cranial nerves II through XII grossly intact. Normal speech, normal gait, no focal sensorimotor deficits 07/17/19 20:08 07/17/19 21:02 07/17/19 22:08 ED Treatment Course - LABORATORY CBC & Chemistry Diagram: 07/17/19 21:14 07/17/19 21:14 Medical Decision Making - Medical Decision Making 07/17/19 21:03 53 y/o F hx of HTN, HLD, DM, Gastritis, HD (MWF) HLD, Asthma presents to the ED with 2 days of epigastric pain ddx: gastritis/ulcer, pancreatitis, acs, cholelithiasis, cholecystitis, gastroenteritis, heart score : 3 without troponin level workup cbc, cmp, pt/inr, ptt, ekg, lipase, troponin meds: fluids, pepcid, reglan. ekg;left atrial enlargement, NSR, no St elevations 07/17/19 22:09 Pt signed out to Dr. Chong Discharge - Follow up/Referral Referrals: Derrek Patterson MD [Primary Care Provider] - - Patient Discharge Instructions - Post Discharge Activity
[2019-07-17] MEDS ORDERED: METOCLOPRAMIDE HCL INJECTION 10 MG/2 ML VIAL IVPB ONE (19:45)
[2019-07-17] MEDS ORDERED: FAMOTIDINE 20 MG/50 ML IVPB 20 MG/50 ML MG IVPB ONE ×2 (19:45→20:43)
[2019-07-17] MEDS ORDERED: SODIUM CHLORIDE 0.9% 500 ML INFUS.BAG IV ONE (19:45)
[2019-07-17] MEDS ORDERED: SODIUM CHLORIDE 0.9% 1000 ML INFUS.BAG IV ONE (20:01)
--- NOTE | 2019-07-17 20:23 | PDOC ---
Documentation entered by Alfonso Pimentel SCRIBE, acting as scribe for Benita Cramer DO. Benita Cramer DO: This documentation has been prepared by the Margarito henao Daniel, SCRIBE, under my direction and personally reviewed by me in its entirety. I confirm that the documentation accurately reflects all work, treatment, procedures, and medical decision making performed by me. Attending Attestation - Resident Resident Name: CodeyGus - ED Attending Attestation I have performed the following: I have examined & evaluated the patient, The case was reviewed & discussed with the resident, I agree w/resident's findings & plan, Exceptions are as noted - HPI HPI: 07/17/19 19:59 The patient is a 53 year old female with a past medical history of HTN, HLD, diabetes, gastritis, HD (MWF, last round today), and asthma here today for evaluation of epigastric pain. The patient reports that she has had 2 days of epigastric pain that radiates to her left shoulder and is described as a burning pain similar to her gastritis pain. She states that she has taken tylenol and gaviscon without relief. She also notes 3-4 episodes of vomiting. Patient denies headache, lightheadedness. Denies fever, chills. Denies chest pain, shortness of breath. Denies diarrhea. Allergies: NKA PCP: Derrek Patterson - Physicial Exam PE: 07/17/19 20:11 Constitutional: +acutely in pain, uncomfortable appearing. Awake, alert, oriented. Head: Normocephalic. Atraumatic Eyes: PERRL. EOMI. Conjunctivae are not pale. ENT: Mucous membranes are moist and intact. Posterior pharynx without exudates or erythema. Uvula midline. Neck: Supple. Full ROM. No lymphadenopathy. Cardiovascular: Regular rate. Regular rhythm. S1, S2 regular. Distal pulses are 2+ and symmetric. Pulmonary/Chest: No evidence of respiratory distress. Clear to auscultation bilaterally No wheezing, rales or rhonchi. Abdominal: +epigastric tenderness. Soft and non-distended. No rebound, guarding or rigidity. No organomegaly. No palpable masses. Good bowel sounds. Back: No CVA tenderness. Musculoskeletal: +left upper extremity AV fistula with bruit and thrill. No edema. No cyanosis. No clubbing. Full range of motion in all extremities. No calf tenderness. Radial/pedal pulses are intact and 2+ bilaterally Skin: Skin is warm and dry. No petechiae. No purpura. Neurological: Alert and oriented to person, place, and time. Cranial nerves II-XII are grossly intact. Normal speech. Strength is grossly symmetric. No sensory deficits. Psychiatric: Good eye contact. Normal interaction, affect and behavior. - Medical Decision Making 07/17/19 20:20 I, Dr. Benita Cramer, DO, attest that this document has been prepared under my direction and personally reviewed by me in its entirety. I further attest, that it accurately reflects all work, treatment, procedures and medical decision-making performed by me. a/p: 53yo female with epigastric abd pain assoc with n/v today -pt states sharp pain to the L chest also -pt states multiple episodes of n/v since HD today -ate rice, beans, steak last night, drank coffee and cake this am and a granola bar this afternoon with vomiting after each meal -hx of gastritis -pt states she tried meds at home earlier without relief -will send labs, ekg, cxr, meds iv -will monitor and reassess 07/17/19 22:47 cxr clear no elevated wbc 07/18/19 01:53 labs reviewed and stable pt signed out pending re-eval after medication Heart Score/ECG Review - ECG Intrepretation Comment:: 07/17/19 20:55 sinus at 72, nl axis, nl interval, q waves v1-2, no acute st/t wave findings Discharge - Discharge Information Problems reviewed: Yes Clinical Impression/Diagnosis: GERD (gastroesophageal reflux disease), Atypical chest pain, Epigastric pain - Follow up/Referral Referrals: Derrek Patterson MD [Primary Care Provider] - - Patient Discharge Instructions - Post Discharge Activity
[2019-07-17] MEDS ORDERED: METOCLOPRAMIDE HCL INJECTION 10 MG/2 ML VIAL ONE (20:43)
[2019-07-17 21:58] LABS: EOS % 0.4 % (0-4.5); HEMATOCRIT 44.4 % (32.4-45.2); HEMOGLOBIN 14.9 GM/dL (10.7-15.3); LYMPH % 23.5 % (8-40); MCH 32.2 pg (25.7-33.7); MCHC 33.7 g/dl (32.0-36.0); MEAN CELL VOLUME 95.5 fl (80-96); MEAN PLT VOLUME 9.6 fl (7.5-11.1); MONO % 9.2 % (3.8-10.2); NEUT % 65.9 % (42.8-82.8); PLATELET COUNT 326 K/MM3 (134-434); RBC 4.64 M/mm3 (3.60-5.2); RDW 15.2 % (11.6-15.6); WHITE BLOOD COUNT 6.3 K/mm3 (4.0-10.0)
[2019-07-17 22:09] LABS: INR 0.96 (0.83-1.09); PROTHROMBIN TIME (PATIENT) 11.3 SEC (9.7-13.0)
[2019-07-17 22:12] LABS: ACTIVATED PTT 38.5 SECONDS (25.2-36.5)
[2019-07-17 23:43] LABS: ALBUMIN 3.5 g/dl (3.4-5.0); BILIRUBIN,TOTAL 0.4 mg/dL (0.2-1); CALCIUM 8.9 mg/dL (8.5-10.1); CREATININE 5.2 mg/dL (0.55-1.3); POTASSIUM 4.5 mmol/L (3.5-5.1); TOT PROT 7.9 g/dl (6.4-8.2)
[2019-07-18] MEDS ORDERED: SUCRALFATE 1 GM TABLET (FP) PO ONE (00:05)
[2019-07-18] MEDS ORDERED: MAG HYDROX/AL HYDROX/SIMETH 30 ML UNIT-DOSE CUP PO ONE (00:05)
[2019-07-18] MEDS ORDERED: ONDANSETRON 4 MG/2 ML VIAL IVPUSH ONE ×3 (00:05→01:14)
[2019-07-18] MEDS ORDERED: ACETAMINOPHEN 1000 MG/100 ML VIAL (NON FORMULARY) IVPB ONE (00:06)
[2019-07-18] MEDS ORDERED: SUCRALFATE 1 GM TABLET (FP) ONE (00:31)
[2019-07-18] MEDS ORDERED: ACETAMINOPHEN INJECTION 100 ML IVPB ONE (00:32)
[2019-07-18] MEDS ORDERED: MAG HYDROX/AL HYDROX/SIMETH 30 ML UNIT-DOSE CUP ONE (00:32)
[2019-07-18] MEDS ORDERED: ONDANSETRON 4 MG/2 ML VIAL ONE (01:07)
[2019-07-18 01:26] VITALS: BP 168/78; PULSE 68; TEMP 97
--- NOTE | 2019-07-18 02:18 | PDOC ---
*Physical Exam - Vital Signs Last Vital Signs Temp Pulse Resp BP Pulse Ox 97 F L 68 18 168/78 100 07/18/19 01:25 07/18/19 01:25 07/18/19 01:25 07/18/19 01:25 07/18/19 01:25 ED Treatment Course - LABORATORY CBC & Chemistry Diagram: 07/17/19 21:14 07/17/19 23:00 - ADDITIONAL ORDERS Additional order review: Laboratory Results 07/17/19 07/17/19 07/17/19 23:00 21:14 21:14 PT with INR 11.30 INR 0.96 PTT (Actin FS) 38.5 H Sodium 132 L Cancelled Potassium 4.5 Cancelled Chloride 95 L Cancelled Carbon Dioxide 27 Cancelled Anion Gap 10 Cancelled BUN 28.0 H Cancelled Creatinine 5.2 H Cancelled Est GFR (CKD-EPI)AfAm 10.15 Cancelled Est GFR (CKD-EPI)NonAf 8.76 Cancelled Random Glucose 206 H Cancelled Calcium 8.9 Cancelled Total Bilirubin 0.4 Cancelled AST 13 L Cancelled ALT 18 Cancelled Alkaline Phosphatase 118 H Cancelled Creatine Kinase 59 Cancelled Troponin I 0.05 Cancelled Total Protein 7.9 Cancelled Albumin 3.5 Cancelled Lipase 74 Cancelled 07/17/19 21:14 RBC 4.64 MCV 95.5 MCHC 33.7 RDW 15.2 MPV 9.6 Neutrophils % 65.9 Lymphocytes % 23.5 D Monocytes % 9.2 Eosinophils % 0.4 D Basophils % 1.0 - Medications Given in the ED: ED Medications Discontinued Medications Generic Name Dose Route Start Last Admin Trade Name Ignacio PRN Reason Stop Dose Admin Acetaminophen 1,000 mg 07/18/19 00:06 07/18/19 01:10 Ofirmev Injection - IVPB 07/18/19 00:07 1,000 mg ONCE ONE Administration Al Hydroxide/Mg Hydroxide 30 ml 07/18/19 00:05 07/18/19 01:10 Mylanta Oral Suspension - PO 07/18/19 00:06 30 ml ONCE ONE Administration Famotidine/Sodium Chloride 20 mg in 50 mls @ 100 mls/hr 07/17/19 19:45 07/17/19 21:39 Pepcid 20 Mg Premixed Ivpb - IVPB 07/17/19 20:14 100 mls/hr ONCE ONE Administration Metoclopramide HCl 10 mg 07/17/19 19:45 07/17/19 21:38 Reglan Injection - IVPB 07/17/19 19:46 10 mg ONCE ONE Administration Ondansetron HCl 4 mg 07/18/19 00:05 07/18/19 01:10 Zofran Injection IVPUSH 07/18/19 00:06 4 mg ONCE ONE Administration Ondansetron HCl 4 mg 07/18/19 00:49 07/18/19 01:45 Zofran Injection IVPUSH 07/18/19 00:50 Not Given ONCE ONE Ondansetron HCl 4 mg 07/18/19 01:14 07/18/19 01:00 Zofran Injection IVPUSH 07/18/19 01:15 4 mg ONCE ONE Administration Sodium Chloride 1,000 ml 07/17/19 19:45 07/17/19 21:40 Normal Saline - IV 07/17/19 19:46 Not Given ONCE ONE Sodium Chloride 250 ml 07/17/19 20:01 07/17/19 21:39 Normal Saline - IV 07/17/19 20:02 250 ml ONCE ONE Administration Sucralfate 1 gm 07/18/19 00:05 07/18/19 01:10 Carafate - PO 07/18/19 00:06 1 gm ONCE ONE Administration Medical Decision Making - Medical Decision Making Patient signed out by Dr. Dana Srivastava 53 y/o F hx of HTN, HLD, DM, Gastritis, HD (MWF) HLD, Asthma presents to the ED with 2 days of epigastric pain. Received pepcid, reglan, ofirmev, fluids CBC WBC 6.3 K/mm3 (4.0-10.0) 07/17/19 21:14 RBC 4.64 M/mm3 (3.60-5.2) 07/17/19 21:14 Hgb 14.9 GM/dL (10.7-15.3) 07/17/19 21:14 Hct 44.4 % (32.4-45.2) D 07/17/19 21:14 MCV 95.5 fl (80-96) 07/17/19 21:14 MCH 32.2 pg (25.7-33.7) 07/17/19 21:14 MCHC 33.7 g/dl (32.0-36.0) 07/17/19 21:14 RDW 15.2 % (11.6-15.6) 07/17/19 21:14 Plt Count 326 K/MM3 (134-434) D 07/17/19 21:14 MPV 9.6 fl (7.5-11.1) 07/17/19 21:14 Absolute Neuts (auto) 4.2 K/mm3 (1.5-8.0) 07/17/19 21:14 Neutrophils % 65.9 % (42.8-82.8) 07/17/19 21:14 Lymphocytes % 23.5 % (8-40) D 07/17/19 21:14 Monocytes % 9.2 % (3.8-10.2) 07/17/19 21:14 Eosinophils % 0.4 % (0-4.5) D 07/17/19 21:14 Basophils % 1.0 % (0-2.0) 07/17/19 21:14 Nucleated RBC % 0 % (0-0) 07/17/19 21:14 No leukocytosis or anemia CMP Sodium 132 mmol/L (136-145) L 07/17/19 23:00 Potassium 4.5 mmol/L (3.5-5.1) 07/17/19 23:00 Chloride 95 mmol/L (98-107) L 07/17/19 23:00 Carbon Dioxide 27 mmol/L (21-32) 07/17/19 23:00 Anion Gap 10 MMOL/L (8-16) 07/17/19 23:00 BUN 28.0 mg/dL (7-18) H 07/17/19 23:00 Creatinine 5.2 mg/dL (0.55-1.3) H 07/17/19 23:00 Est GFR (CKD-EPI)AfAm 10.15 07/17/19 23:00 Est GFR (CKD-EPI)NonAf 8.76 07/17/19 23:00 Random Glucose 206 mg/dL (74-106) H 07/17/19 23:00 Calcium 8.9 mg/dL (8.5-10.1) 07/17/19 23:00 Total Bilirubin 0.4 mg/dL (0.2-1) 07/17/19 23:00 AST 13 U/L (15-37) L 07/17/19 23:00 ALT 18 U/L (13-61) 07/17/19 23:00 Alkaline Phosphatase 118 U/L (45-117) H 07/17/19 23:00 Creatine Kinase 59 U/L (26-192) 07/17/19 23:00 Troponin I 0.05 ng/ml (0.00-0.05) 07/17/19 23:00 Total Protein 7.9 g/dl (6.4-8.2) 07/17/19 23:00 Albumin 3.5 g/dl (3.4-5.0) 07/17/19 23:00 Lipase 74 U/L (73-393) 07/17/19 23:00 Electrolytes unremarkable Cr elevated, as expected for this ESRD patient No transaminitis Normal Lipase Given Zofran, carafate, mylanta Patient still complaining of symptoms, however, is observed sleeping in vertical area with no acute distress Patient tolerated po intake with ice water Likely experiencing significant reflux Zofran odt prescribed To follow up her GI specialist, Dr. Sandoval; may benefit from fundoplication procedure Last endoscopy was about one year ago Return precautions Stable for discharge 07/18/19 02:16 Nurse Neha cannot find the patient Patient left with IV still in place Nurse Neha called the patient who did not answer The patient called the department but hung up without speaking with a provider Per the patient's sister, the patient went home [facility] department notified 07/18/19 03:00 Discharge - Discharge Information Problems reviewed: Yes Clinical Impression/Diagnosis: Atypical chest pain, Epigastric pain GERD (gastroesophageal reflux disease) Qualifiers: Esophagitis presence: esophagitis presence not specified Qualified Code(s): K21.9 - Gastro-esophageal reflux disease without esophagitis Condition: Stable Disposition: ELOPED - Additional Discharge Information Prescriptions: Ondansetron [Zofran Odt -] 4 mg SL TID #21 od.tablet - Follow up/Referral Referrals: Derrek Patterson MD [Primary Care Provider] - - Patient Discharge Instructions Patient Printed Discharge Instructions: DI for Gastroesophageal Reflux Disease (GERD) Additional Instructions: You came into the emergency department for abdominal pain, nausea, and vomiting. Our workup did not indicate acute pathology. Prescription for anti-nausea medicine sent to your pharmacy. Take as instructed. Follow-up with your GI doctor or primary care provider within 72 hours to disc uss this ED visit and to further evaluate your symptoms. Your workup is not complete until you do so. Call and make an appointment at the number provided. Immediate medical attention is required if you develop: worsening pain, high fevers, persistent nausea, vomiting, or any new or concerning symptoms. If you think you are having an emergency, call for emergency medical services or present to the emergency department right away. - Post Discharge Activity
--- NOTE | 2019-07-18 09:58 | EKG ---
Test Reason : Blood Pressure : / mmHG Vent. Rate : 072 BPM Atrial Rate : 072 BPM P-R Int : 154 ms QRS Dur : 082 ms QT Int : 426 ms P-R-T Axes : 060 020 065 degrees QTc Int : 466 ms NORMAL SINUS RHYTHM POSSIBLE LEFT ATRIAL ENLARGEMENT BORDERLINE ECG WHEN COMPARED WITH ECG OF 16-MAY-2019 13:43, NONSPECIFIC T WAVE ABNORMALITY NOW EVIDENT IN LATERAL LEADS Confirmed by AVA BARNETT, JOSE ([id number]) on 07/18/2019 9:58:07 AM Referred By: Confirmed By:JOSE ESCALANTE MD
--- NOTE | 2019-07-19 10:55 | EKG ---
Test Reason : Blood Pressure : / mmHG Vent. Rate : 075 BPM Atrial Rate : 075 BPM P-R Int : 138 ms QRS Dur : 080 ms QT Int : 416 ms P-R-T Axes : 054 040 070 degrees QTc Int : 464 ms NORMAL SINUS RHYTHM CANNOT RULE OUT SEPTAL INFARCT , AGE UNDETERMINED Confirmed by MEET PEDROZA MD ([id number]) on 07/19/2019 10:54:50 AM Referred By: Confirmed By:MEET PEDROZA MD
== END 2019-07-18 02:30 | disposition left against medical advice (07) ==
LOC: JER 18:55
DX: K21.9 Gastro-esophageal reflux disease without esophagitis (principal); R07.9 Chest pain, unspecified
CPT/HCPCS: 36415; 71046-TC-FY; 80053; 82550; 83690; 84484; 85025; 85610; 85730; 93005; 93010; 99285-25; J0131; J7030

== ENCOUNTER 2020-04-06 10:15 | Emergency (ER) | payer OTHER ==
[2020-04-06 10:21] VITALS: BP 133/64; PULSE 70; TEMP 98.1; BMI 29.8
[2020-04-06 11:54] LABS: BASO % 1.4 % (0-2.0); EOS % 3.4 % (0-4.5); HEMATOCRIT 26.6 % (32.4-45.2); HEMOGLOBIN 8.8 GM/dL (10.7-15.3); LYMPH % 24.9 % (8-40); MEAN CELL VOLUME 97.2 fl (80-96); MEAN PLT VOLUME 8.9 fl (7.5-11.1); MONO % 9.8 % (3.8-10.2); NEUT % 60.5 % (42.8-82.8); PLATELET COUNT 259 K/MM3 (134-434); RBC 2.74 M/mm3 (3.60-5.2); RDW 14.9 % (11.6-15.6)
[2020-04-06 12:11] LABS: POTASSIUM 5.3 mmol/L (3.5-5.1)
[2020-04-06 12:13] LABS: CALCIUM 8.9 mg/dL (8.5-10.1)
[2020-04-06 12:14] LABS: ALBUMIN 3.7 g/dl (3.4-5.0); BLOOD UREA NITROGEN 11.6 mg/dL (7-18)
[2020-04-06 12:17] LABS: CREATININE 3.6 mg/dL (0.55-1.3)
[2020-04-06 12:19] LABS: BILIRUBIN,TOTAL 0.5 mg/dL (0.2-1); TOT PROT 7.7 g/dl (6.4-8.2)
[2020-04-06 12:21] LABS: INR 0.96 (0.83-1.09); PROTHROMBIN TIME (PATIENT) 11.6 SEC (9.7-13.0)
[2020-04-06 13:36] LABS: POTASSIUM 4.7 mmol/L (3.5-5.1)
[2020-04-06 13:38] LABS: CALCIUM 8.9 mg/dL (8.5-10.1)
[2020-04-06 13:39] LABS: ALBUMIN 3.6 g/dl (3.4-5.0); BLOOD UREA NITROGEN 10.9 mg/dL (7-18)
[2020-04-06 13:42] LABS: CREATININE 3.7 mg/dL (0.55-1.3)
[2020-04-06 13:44] LABS: BILIRUBIN,TOTAL 0.4 mg/dL (0.2-1); TOT PROT 7.6 g/dl (6.4-8.2)
== END 2020-04-06 15:53 | disposition home or self-care (01) ==
LOC: JER 10:15
PROC: 0H9FXZZ Drainage of Right Hand Skin, External Approach (ICD-10-PCS; principal; 2020-04-06)
DX: L02.511 Cutaneous abscess of right hand (principal)
CPT/HCPCS: 36415; 76882-TC-RT-FY; 80053; 85025; 85610; 86850; 86900; 86901; 99284-25

== ENCOUNTER 2020-08-03 11:44 | Inpatient (IN) | payer OTHER ==
[2020-08-03] MEDS ORDERED: METOCLOPRAMIDE HCL INJECTION 10 MG/2 ML VIAL IVPB ONE (12:42)
[2020-08-03] MEDS ORDERED: SODIUM CHLORIDE 0.9% 500 ML INFUS.BAG IV ONE (12:42)
[2020-08-03] MEDS ORDERED: MAG HYDROX/AL HYDROX/SIMETH 30 ML UNIT-DOSE CUP PO ONE ×2 (12:43→12:48)
[2020-08-03] MEDS ORDERED: FAMOTIDINE 20 MG/50 ML IVPB 20 MG/50 ML MG IVPB ONE ×4 (12:46→19:20)
[2020-08-03] MEDS ORDERED: METOCLOPRAMIDE HCL INJECTION 10 MG/2 ML VIAL ONE (13:20)
[2020-08-03] MEDS ORDERED: MAG HYDROX/AL HYDROX/SIMETH 30 ML UNIT-DOSE CUP ONE (13:20)
[2020-08-03 14:00] LABS: BASO % 0.3 % (0-2.0); EOS % 1.4 % (0-4.5); HEMATOCRIT 37.3 % (32.4-45.2); HEMOGLOBIN 12.7 GM/dL (10.7-15.3); LYMPH % 23.7 % (8-40); MCH 32.5 pg (25.7-33.7); MEAN CELL VOLUME 95.4 fl (80-96); MEAN PLT VOLUME 8.9 fl (7.5-11.1); MONO % 9.7 % (3.8-10.2); NEUT % 64.9 % (42.8-82.8); PLATELET COUNT 250 K/MM3 (134-434); RBC 3.91 M/mm3 (3.60-5.2); RDW 15.1 % (11.6-15.6); WHITE BLOOD COUNT 5.7 K/mm3 (4.0-10.0)
[2020-08-03 14:22] LABS: CALCIUM 9.7 mg/dL (8.5-10.1)
[2020-08-03 14:27] LABS: BILIRUBIN,TOTAL 0.6 mg/dL (0.2-1); TOT PROT 7.8 g/dl (6.4-8.2)
[2020-08-03] MEDS ORDERED: ASPIRIN 81 MG CHEWABLE TABLETS PO ONE (15:17)
[2020-08-03] MEDS ORDERED: ASPIRIN 81 MG CHEWABLE TABLETS ONE (15:19)
[2020-08-03] MEDS ORDERED: MAGNESIUM SULF 50% (8.12 MEQ/2 ML-1 GM VIAL) IVPB ONE (16:15)
[2020-08-03] MEDS ORDERED: ATORVASTATIN CA 40 MG TABLET (FP) ONE (17:14)
[2020-08-03] MEDS ORDERED: PANTOPRAZOLE 40 MG TABLET ONE (17:14)
[2020-08-03] MEDS ORDERED: MAGNESIUM 1GM/D5W - 1 GM/100 ML IVPB IVPB ONE (17:14)
[2020-08-03] MEDS: PANTOPRAZOLE 40 MG TABLET PO SCH (17:15)
[2020-08-03] MEDS: ATORVASTATIN CA 40 MG TABLET (FP) PO SCH (17:15)
[2020-08-03 19:30] LABS: EPI CELLS >36 /uL (0-25.1); HYALINE CASTS 2 /uL (0-3.1); PH,URINE >= 9.0 (5.0-8.0); URINE APPEARANCE CLEAR; URINE BACTERIA 225 /uL (0-1359); URINE BILIRUBIN NEGATIVE (NEGATIVE); URINE COLOR YELLOW; URINE GLUCOSE (UA) 1+ (NEGATIVE); URINE KETONE NEGATIVE (NEGATIVE); URINE LEUK ESTERASE 1+ (NEGATIVE); URINE NITRITE NEGATIVE (NEGATIVE); URINE PROTEIN 3+ (NEGATIVE); URINE RBC 9 /uL (0-23.9); URINE UROBILINOGEN 0.2 mg/dL (0.2-1.0); URINE WBC 139 /uL (0-25.8)
[2020-08-03 20:04] LABS: URINE AMPHETAMINES NEGATIVE ng/ml (CUTOFF=500)
[2020-08-03 20:05] LABS: METHADONE, UR NEGATIVE ng/ml (CUTOFF=300); OPIATES, URI NEGATIVE ng/ml (CUTOFF=300); PHENCYCLIDINE,URINE NEGATIVE ng/ml (CUTOFF=25); URINE BARBITURATES NEGATIVE ng/ml (CUTOFF=200); URINE BENZODIAZEPINES NEGATIVE ng/ml (CUTOFF=200)
[2020-08-03] MEDS ORDERED: LOSARTAN POTASSIUM 50 MG TABLET ONE (20:06)
[2020-08-03] MEDS: LOSARTAN POTASSIUM 50 MG TABLET PO SCH (20:10)
[2020-08-03 20:11] LABS: COCAINE, UR NEGATIVE ng/ml (CUTOFF=300)
[2020-08-03] MEDS ORDERED: MAG HYDROX/AL HYDROX/SIMETH -MYLANTA- ORAL SUSPENSION PO SCH (22:00)
[2020-08-04] MEDS: hydrALAZINE HCL 50 MG TABLET (FP) PO SCH ×4 (00:57→21:22)
[2020-08-04] MEDS: HEPARIN NA (PORCINE) 5,000 UNITS/ML 1ML VIAL SQ SCH ×4 (01:01→21:23)
[2020-08-04] MEDS ORDERED: MAG HYDROX/AL HYDROX/SIMETH 30 ML UNIT-DOSE CUP PO PRN (01:37)
[2020-08-04] MEDS: INSULIN SLIDING SCALE (NOVOLOG) 1 VIAL SQ SCH ×4 (06:16→21:27)
[2020-08-04] MEDS: INSULIN (LEVEMIR) 100 UNITS/ML UNITS SQ SCH (06:34)
[2020-08-04] MEDS ORDERED: INSULIN SLIDING SCALE (NOVOLOG) 1 VIAL SQ SCH (07:00)
[2020-08-04] MEDS ORDERED: LORazepam 2 MG/ML SDV VIAL ONE (07:08)
[2020-08-04] MEDS ORDERED: LORazepam 2 MG/ML SDV VIAL IVPUSH ONE (07:15)
[2020-08-04 07:32] LABS: BASO % 1.3 % (0-2.0); EOS % 0.8 % (0-4.5); HEMATOCRIT 35.5 % (32.4-45.2); HEMOGLOBIN 11.7 GM/dL (10.7-15.3); MCH 32.7 pg (25.7-33.7); MCHC 32.9 g/dl (32.0-36.0); MEAN CELL VOLUME 99.2 fl (80-96); MONO % 8.9 % (3.8-10.2); PLATELET COUNT 241 K/MM3 (134-434); RBC 3.58 M/mm3 (3.60-5.2); RDW 15.3 % (11.6-15.6); WHITE BLOOD COUNT 5.8 K/mm3 (4.0-10.0)
[2020-08-04 07:40] LABS: CHLORIDE 93 mmol/L (98-107); SODIUM 131 mmol/L (136-145)
[2020-08-04 07:50] LABS: CALCIUM 9.3 mg/dL (8.5-10.1)
[2020-08-04 07:51] LABS: SGOT/AST 13 U/L (15-37)
[2020-08-04 07:53] LABS: BLOOD UREA NITROGEN 24.5 mg/dL (7-18); TOT PROT 7.1 g/dl (6.4-8.2)
[2020-08-04 07:54] LABS: ALBUMIN 3.4 g/dl (3.4-5.0); ANION GAP 8 MMOL/L (8-16); CO2 30 mmol/L (21-32)
[2020-08-04 07:56] LABS: CHOLESTEROL 197 mg/dL (50-200); MAGNESIUM 3.4 mg/dL (1.8-2.4)
[2020-08-04 07:57] LABS: LDL CHOLESTEROL (ONLY SJRH) 117 mg/dL (5-100); PHOSPHOROUS 4.8 mg/dL (2.5-4.9)
[2020-08-04 07:58] LABS: BILIRUBIN,TOTAL 0.4 mg/dL (0.2-1); HDL CHOLESTEROL 39 mg/dL (40-60)
[2020-08-04 07:59] LABS: TRIGLYCERIDES 182 mg/dL (0-150)
[2020-08-04 08:00] LABS: SGPT/ALT 13 U/L (13-61)
[2020-08-04] MEDS ORDERED: NIFEdipine E.R. 90 MG TABLET PO ONE (08:16)
[2020-08-04] MEDS ORDERED: CARVEDILOL 25 MG TABLET (FP) PO ONE (08:16)
[2020-08-04] MEDS ORDERED: LOSARTAN POTASSIUM 50 MG TABLET PO ONE (08:17)
[2020-08-04 08:26] LABS: ALK PHOS 183 U/L (45-117)
[2020-08-04] MEDS ORDERED: LIDOCAINE 5% TOPICAL PATCH TP ONE (09:09)
[2020-08-04] MEDS: PANTOPRAZOLE 40 MG TABLET PO SCH (09:12)
[2020-08-04] MEDS: ATORVASTATIN CA 40 MG TABLET (FP) PO SCH (09:12)
[2020-08-04] MEDS: DULoxetine HCL 30 MG CAPSULE.DR PO SCH (09:12)
[2020-08-04 09:53] LABS: GLUCOSE,RANDOM 613 mg/dL (74-106)
[2020-08-04] MEDS ORDERED: ASPIRIN COATED 81 MG TABLET.EC PO SCH (10:00)
[2020-08-04] MEDS ORDERED: SODIUM CHLORIDE 250 ML IV PRN (18:31)
[2020-08-04] MEDS: ACETAMINOPHEN 325 MG TABLET (FP) PO PRN (21:04)
[2020-08-04] MEDS: CARVEDILOL 25 MG TABLET (FP) PO SCH (21:56)
[2020-08-04] MEDS ORDERED: LIDOCAINE PATCH REMOVAL MC ONE (22:00)
[2020-08-04] MEDS: DOCUSATE SODIUM 100 MG CAPSULE (FP) PO PRN (23:42)
[2020-08-05] MEDS: HEPARIN NA (PORCINE) 5,000 UNITS/ML 1ML VIAL SQ SCH ×3 (05:30→21:51)
[2020-08-05] MEDS: hydrALAZINE HCL 50 MG TABLET (FP) PO SCH ×3 (06:00→21:51)
[2020-08-05] MEDS: INSULIN SLIDING SCALE (NOVOLOG) 1 VIAL SQ SCH ×4 (06:15→21:55)
[2020-08-05] MEDS: INSULIN (LEVEMIR) 100 UNITS/ML UNITS SQ SCH (06:15)
[2020-08-05] MEDS ORDERED: ASPIRIN 325 MG TABLET ONE (07:32)
[2020-08-05] MEDS ORDERED: MORPHINE SULFATE 2 MG/ML VIAL ONE (07:32)
[2020-08-05] MEDS ORDERED: ASPIRIN 81 MG CHEWABLE TABLETS PO SCH (07:32)
[2020-08-05] MEDS: MORPHINE SULFATE 2 MG/ML VIAL IVPUSH ONE ×2 (07:44→09:03)
[2020-08-05] MEDS ORDERED: ASPIRIN 325 MG TABLET PO SCH (07:45)
[2020-08-05] MEDS ORDERED: CARVEDILOL 25 MG TABLET (FP) PO ONE (07:46)
[2020-08-05] MEDS: METOPROLOL TARTRATE 5 MG/5 ML VIAL IVPUSH ONE ×2 (07:51→09:02)
[2020-08-05] MEDS ORDERED: ASPIRIN 325 MG TABLET PO ONE (07:54)
[2020-08-05 08:22] LABS: BASO % 1.1 % (0-2.0); EOS % 3.5 % (0-4.5); HEMATOCRIT 33.7 % (32.4-45.2); HEMOGLOBIN 11.2 GM/dL (10.7-15.3); LYMPH % 23.9 % (8-40); MCH 32.3 pg (25.7-33.7); MCHC 33.2 g/dl (32.0-36.0); MEAN CELL VOLUME 97.1 fl (80-96); MEAN PLT VOLUME 9.9 fl (7.5-11.1); MONO % 7.5 % (3.8-10.2); PLATELET COUNT 232 K/MM3 (134-434); RBC 3.47 M/mm3 (3.60-5.2); RDW 15.4 % (11.6-15.6); WHITE BLOOD COUNT 5.8 K/mm3 (4.0-10.0)
[2020-08-05 08:48] LABS: CHLORIDE 98 mmol/L (98-107); SODIUM 133 mmol/L (136-145)
[2020-08-05 08:50] LABS: CALCIUM 8.9 mg/dL (8.5-10.1); MAGNESIUM 3.7 mg/dL (1.8-2.4)
[2020-08-05 08:52] LABS: GLUCOSE,RANDOM 304 mg/dL (74-106); PHOSPHOROUS 5.3 mg/dL (2.5-4.9)
[2020-08-05 08:53] LABS: ALBUMIN 3.4 g/dl (3.4-5.0); ANION GAP 9 MMOL/L (8-16); CO2 26 mmol/L (21-32); SGPT/ALT 14 U/L (13-61)
[2020-08-05 08:54] LABS: SGOT/AST 13 U/L (15-37)
[2020-08-05 08:55] LABS: BILIRUBIN,TOTAL 0.4 mg/dL (0.2-1); TOT PROT 6.9 g/dl (6.4-8.2)
[2020-08-05 08:59] LABS: ALK PHOS 152 U/L (45-117)
[2020-08-05 09:23] LABS: CREATININE 7.7 mg/dL (0.55-1.3)
[2020-08-05] MEDS: NIFEdipine E.R. 90 MG TABLET PO SCH (10:44)
[2020-08-05] MEDS: ATORVASTATIN CA 40 MG TABLET (FP) PO SCH (10:45)
[2020-08-05] MEDS: DOCUSATE SODIUM 100 MG CAPSULE (FP) PO PRN (10:45)
[2020-08-05] MEDS: DULoxetine HCL 30 MG CAPSULE.DR PO SCH (10:45)
[2020-08-05] MEDS: PANTOPRAZOLE 40 MG TABLET PO SCH (10:45)
[2020-08-05] MEDS: LOSARTAN POTASSIUM 50 MG TABLET PO SCH (10:45)
[2020-08-05] MEDS ORDERED: BISACODYL 5 MG TABLET.DR (FP) PO ONE (20:35)
[2020-08-05] MEDS: CARVEDILOL 25 MG TABLET (FP) PO SCH (21:51)
[2020-08-06] MEDS: ACETAMINOPHEN 325 MG TABLET (FP) PO PRN ×2 (02:39→23:54)
[2020-08-06] MEDS: INSULIN SLIDING SCALE (NOVOLOG) 1 VIAL SQ SCH ×4 (06:46→21:44)
[2020-08-06] MEDS: INSULIN (LEVEMIR) 100 UNITS/ML UNITS SQ SCH (06:47)
[2020-08-06] MEDS: HEPARIN NA (PORCINE) 5,000 UNITS/ML 1ML VIAL SQ SCH ×3 (06:47→21:41)
[2020-08-06] MEDS: hydrALAZINE HCL 50 MG TABLET (FP) PO SCH ×3 (06:48→21:40)
[2020-08-06 07:43] LABS: EOS % 3.2 % (0-4.5); HEMATOCRIT 34.2 % (32.4-45.2); HEMOGLOBIN 11.2 GM/dL (10.7-15.3); MCH 32.1 pg (25.7-33.7); MCHC 32.7 g/dl (32.0-36.0); MEAN CELL VOLUME 97.9 fl (80-96); MEAN PLT VOLUME 10.3 fl (7.5-11.1); MONO % 8.4 % (3.8-10.2); NEUT % 70.4 % (42.8-82.8); PLATELET COUNT 231 K/MM3 (134-434); RBC 3.49 M/mm3 (3.60-5.2); RDW 15.2 % (11.6-15.6)
[2020-08-06 07:58] LABS: CHLORIDE 96 mmol/L (98-107); SODIUM 132 mmol/L (136-145)
[2020-08-06 08:11] LABS: CALCIUM 9.1 mg/dL (8.5-10.1)
[2020-08-06 08:12] LABS: ALBUMIN 3.5 g/dl (3.4-5.0); ANION GAP 9 MMOL/L (8-16); BLOOD UREA NITROGEN 60.7 mg/dL (7-18); CO2 28 mmol/L (21-32); GLUCOSE,RANDOM 300 mg/dL (74-106); MAGNESIUM 3.9 mg/dL (1.8-2.4)
[2020-08-06 08:15] LABS: SGOT/AST 50 U/L (15-37)
[2020-08-06 08:17] LABS: BILIRUBIN,TOTAL 0.5 mg/dL (0.2-1); SGPT/ALT 39 U/L (13-61); TOT PROT 7.3 g/dl (6.4-8.2)
[2020-08-06 08:18] LABS: ALK PHOS 190 U/L (45-117)
[2020-08-06 08:23] LABS: CREATININE 8.1 mg/dL (0.55-1.3)
[2020-08-06] MEDS: PANTOPRAZOLE 40 MG TABLET PO SCH (09:56)
[2020-08-06] MEDS: ATORVASTATIN CA 40 MG TABLET (FP) PO SCH (09:56)
[2020-08-06] MEDS: ASPIRIN COATED 81 MG TABLET.EC PO SCH (09:56)
[2020-08-06] MEDS: DULoxetine HCL 30 MG CAPSULE.DR PO SCH (09:56)
[2020-08-06] MEDS ORDERED: busPIRone HCL 10 MG TABLET (FP) PO SCH (10:15)
[2020-08-06] MEDS ORDERED: SODIUM CHLORIDE 250 ML IV PRN (10:43)
[2020-08-06] MEDS: busPIRone HCL 10 MG TABLET (FP) PO SCH ×2 (10:51→21:40)
[2020-08-06] MEDS ORDERED: ACETAMINOPHEN 1000 MG/100 ML VIAL (NON FORMULARY) IVPB ONE (11:58)
[2020-08-06] MEDS ORDERED: MECLIZINE HCL 12.5 MG TABLET PO PRN (12:13)
[2020-08-06] MEDS ORDERED: BISACODYL 5 MG TABLET.DR (FP) PO ONE (12:31)
[2020-08-06] MEDS: CARVEDILOL 25 MG TABLET (FP) PO SCH ×2 (14:50→21:41)
[2020-08-06] MEDS: NIFEdipine E.R. 90 MG TABLET PO SCH (14:51)
[2020-08-06] MEDS: LOSARTAN POTASSIUM 50 MG TABLET PO SCH (14:51)
[2020-08-06 16:21] VITALS: BMI 29.3
[2020-08-07] MEDS: hydrALAZINE HCL 50 MG TABLET (FP) PO SCH ×2 (06:32→14:53)
[2020-08-07] MEDS: HEPARIN NA (PORCINE) 5,000 UNITS/ML 1ML VIAL SQ SCH ×2 (06:32→14:53)
[2020-08-07] MEDS: INSULIN (LEVEMIR) 100 UNITS/ML UNITS SQ SCH (06:42)
[2020-08-07] MEDS: INSULIN SLIDING SCALE (NOVOLOG) 1 VIAL SQ SCH ×2 (06:43→12:26)
[2020-08-07 07:07] LABS: BASO % 1.1 % (0-2.0); EOS % 2.9 % (0-4.5); HEMATOCRIT 33.4 % (32.4-45.2); HEMOGLOBIN 11.2 GM/dL (10.7-15.3); LYMPH % 18.1 % (8-40); MCH 32.5 pg (25.7-33.7); MCHC 33.6 g/dl (32.0-36.0); MEAN CELL VOLUME 96.7 fl (80-96); MEAN PLT VOLUME 9.8 fl (7.5-11.1); MONO % 8.4 % (3.8-10.2); NEUT % 69.5 % (42.8-82.8); PLATELET COUNT 220 K/MM3 (134-434); RBC 3.46 M/mm3 (3.60-5.2); RDW 14.9 % (11.6-15.6); WHITE BLOOD COUNT 5.3 K/mm3 (4.0-10.0)
[2020-08-07 07:41] LABS: ALBUMIN 3.5 g/dl (3.4-5.0); BLOOD UREA NITROGEN 44.9 mg/dL (7-18); MAGNESIUM 2.8 mg/dL (1.8-2.4)
[2020-08-07 07:44] LABS: CREATININE 6.6 mg/dL (0.55-1.3)
[2020-08-07 07:45] LABS: BILIRUBIN,TOTAL 0.6 mg/dL (0.2-1)
[2020-08-07] MEDS: ACETAMINOPHEN 325 MG TABLET (FP) PO PRN (07:55)
[2020-08-07] MEDS: LOSARTAN POTASSIUM 50 MG TABLET PO SCH (09:56)
[2020-08-07] MEDS: NIFEdipine E.R. 90 MG TABLET PO SCH (09:56)
[2020-08-07] MEDS: PANTOPRAZOLE 40 MG TABLET PO SCH (09:56)
[2020-08-07] MEDS: ATORVASTATIN CA 40 MG TABLET (FP) PO SCH (09:56)
[2020-08-07] MEDS: busPIRone HCL 10 MG TABLET (FP) PO SCH (09:56)
[2020-08-07] MEDS: ASPIRIN COATED 81 MG TABLET.EC PO SCH (09:56)
[2020-08-07] MEDS: CARVEDILOL 25 MG TABLET (FP) PO SCH (09:56)
[2020-08-07] MEDS: DULoxetine HCL 30 MG CAPSULE.DR PO SCH (09:56)
[2020-08-07] MEDS ORDERED: INSULIN (NOVOLOG) ASPART 100 UNITS/ML 10ML VIAL ONE (12:26)
[2020-08-07] MEDS ORDERED: oxyCODONE HCL 5 MG TABLET PO ONE (12:30)
[2020-08-07] MEDS ORDERED: ACETAMINOPHEN 325 MG TABLET (FP) PO ONE (12:30)
[2020-08-07 14:02] VITALS: BP 131/58; PULSE 68; TEMP 97.8
== END 2020-08-07 16:24 | disposition home or self-care (01) | DRG 291 ==
LOC: JER 11:44 → JERBED 15:19 → OBSVTOIN 16:06 → J4W 08-04 00:29
PROVIDERS: ATTEND Nurse Practitioner Family
PROC: 5A1D70Z Performance of Urinary Filtration, Intermittent, Less than 6 Hours Per Day (ICD-10-PCS; principal; 2020-08-04)
DX: I13.2 Hypertensive heart and chronic kidney disease with heart failure and with stage 5 chronic kidney disease, or end stage renal disease (principal); N18.6 End stage renal disease; I24.8 Other forms of acute ischemic heart disease; I16.0 Hypertensive urgency; E11.22 Type 2 diabetes mellitus with diabetic chronic kidney disease; Z99.2 Dependence on renal dialysis; E78.5 Hyperlipidemia, unspecified; Z79.4 Long term (current) use of insulin; K21.9 Gastro-esophageal reflux disease without esophagitis; Z89.422 Acquired absence of other left toe(s); E11.40 Type 2 diabetes mellitus with diabetic neuropathy, unspecified; I25.10 Atherosclerotic heart disease of native coronary artery without angina pectoris; E11.65 Type 2 diabetes mellitus with hyperglycemia; F39 Unspecified mood [affective] disorder; E11.43 Type 2 diabetes mellitus with diabetic autonomic (poly)neuropathy; K31.84 Gastroparesis; D63.1 Anemia in chronic kidney disease; F41.8 Other specified anxiety disorders
CPT/HCPCS: 36415; 71045-TC-FY; 76705-TC; 80053; 80061; 80307; 81003; 82550; 82962; 83036; 83690; 83721; 83735; 84100; 84484; 85025; 86803; 87340; 93005; 93010; 93306-TC; 93970-TC; 97116-GP; 97161-GP; 99285-25; C9803; G0378; J1644; U0003; U0005

== ENCOUNTER 2020-08-29 14:32 | Inpatient (IN) | payer OTHER ==
[2020-08-29] MEDS ORDERED: ACETAMINOPHEN 1000 MG/100 ML VIAL (NON FORMULARY) IVPB ONE ×2 (15:14→20:04)
[2020-08-29] MEDS ORDERED: LACTATED RINGERS SOLUTION 1000 ML INFUS.BAG IV ONE (15:14)
[2020-08-29] MEDS ORDERED: METOCLOPRAMIDE HCL INJECTION 10 MG/2 ML VIAL IVPB ONE ×2 (15:14→20:05)
[2020-08-29] MEDS ORDERED: FAMOTIDINE 20 MG/50 ML IVPB 20 MG/50 ML MG IVPB ONE ×2 (15:14→15:44)
[2020-08-29] MEDS ORDERED: METOCLOPRAMIDE HCL INJECTION 10 MG/2 ML VIAL ONE ×2 (15:43→20:20)
[2020-08-29] MEDS ORDERED: ACETAMINOPHEN INJECTION 100 ML IVPB ONE ×2 (15:44→20:20)
[2020-08-29 15:52] LABS: BASO % 2.2 % (0-2.0); EOS % 0.8 % (0-4.5); HEMATOCRIT 34.7 % (32.4-45.2); HEMOGLOBIN 11.8 GM/dL (10.7-15.3); LYMPH % 17.2 % (8-40); MCH 31.6 pg (25.7-33.7); MEAN CELL VOLUME 93.2 fl (80-96); MONO % 6.4 % (3.8-10.2); NEUT % 73.4 % (42.8-82.8); PLATELET COUNT 241 K/MM3 (134-434); RBC 3.73 M/mm3 (3.60-5.2); RDW 14.2 % (11.6-15.6); WHITE BLOOD COUNT 5.2 K/mm3 (4.0-10.0)
[2020-08-29 15:59] LABS: INR 1.03 (0.83-1.09); PROTHROMBIN TIME (PATIENT) 12.6 SEC (9.7-13.0)
[2020-08-29 16:01] LABS: ACTIVATED PTT 33.1 SECONDS (25.2-36.5)
[2020-08-29 16:12] LABS: CALCIUM 9.8 mg/dL (8.5-10.1)
[2020-08-29 16:13] LABS: ALBUMIN 4.3 g/dl (3.4-5.0); BLOOD UREA NITROGEN 28.7 mg/dL (7-18)
[2020-08-29 16:16] LABS: CREATININE 5.7 mg/dL (0.55-1.3)
[2020-08-29 16:17] LABS: BILIRUBIN,TOTAL 0.6 mg/dL (0.2-1); TOT PROT 8.7 g/dl (6.4-8.2)
[2020-08-29] MEDS ORDERED: MAG HYDROX/AL HYDROX/SIMETH 30 ML UNIT-DOSE CUP PO ONE (17:36)
[2020-08-29] MEDS ORDERED: hydrALAZINE HCL 25 MG TABLET (FP) ONE (17:38)
[2020-08-29] MEDS ORDERED: LIDOCAINE VISCOUS 2% ORAL/TOP 20 ML UNIT-DOSE CUP MM ONE (17:38)
[2020-08-29] MEDS ORDERED: LOSARTAN POTASSIUM 50 MG TABLET ONE (17:39)
[2020-08-29] MEDS ORDERED: NIFEdipine E.R. 30 MG TABLET ONE (17:39)
[2020-08-29] MEDS ORDERED: MAG HYDROX/AL HYDROX/SIMETH 30 ML UNIT-DOSE CUP ONE (17:47)
[2020-08-29] MEDS ORDERED: hydrALAZINE HCL 50 MG TABLET (FP) PO ONE (18:29)
[2020-08-29] MEDS ORDERED: LOSARTAN POTASSIUM 50 MG TABLET PO ONE (18:30)
[2020-08-29] MEDS ORDERED: NIFEdipine E.R. 90 MG TABLET PO ONE (18:32)
[2020-08-29] MEDS ORDERED: dilTIAZem HCL 50 MG/10 ML - 10 ML VIAL IVPUSH ONE (20:06)
[2020-08-29] MEDS ORDERED: morphine CARPU-JECT 4 MG/1 ML DISP.SYRIN IVPUSH ONE (20:13)
[2020-08-29] MEDS ORDERED: MORPHINE SULFATE 2 MG/ML VIAL ONE ×2 (20:20→22:22)
[2020-08-29] MEDS: DILTIAZEM INJECTION 125 MG in SODIUM CHLORIDE 100 ML IVPB SCH (20:58)
[2020-08-29] MEDS ORDERED: MORPHINE SULFATE 2 MG/ML VIAL IM PRN (21:55)
[2020-08-29] MEDS ORDERED: METOCLOPRAMIDE HCL INJECTION 10 MG/2 ML VIAL IVPUSH PRN (21:55)
[2020-08-29] MEDS ORDERED: HEPARIN NA (PORCINE) 5,000 UNITS/ML 1ML VIAL ONE (22:22)
[2020-08-29] MEDS ORDERED: PANTOPRAZOLE SODIUM 40 MG VIAL ONE (22:23)
[2020-08-29] MEDS: HEPARIN NA (PORCINE) 5,000 UNITS/ML 1ML VIAL SQ SCH (22:38)
[2020-08-29] MEDS: INSULIN SLIDING SCALE (NOVOLOG) 1 VIAL SQ SCH (22:41)
[2020-08-29] MEDS: PANTOPRAZOLE SODIUM 40 MG VIAL IVPUSH SCH (22:41)
[2020-08-30] MEDS: HEPARIN NA (PORCINE) 5,000 UNITS/ML 1ML VIAL SQ SCH ×3 (06:06→21:23)
[2020-08-30] MEDS: INSULIN SLIDING SCALE (NOVOLOG) 1 VIAL SQ SCH ×4 (06:07→21:26)
[2020-08-30 07:35] LABS: BASO % 1.3 % (0-2.0); EOS % 1.8 % (0-4.5); HEMATOCRIT 29.5 % (32.4-45.2); HEMOGLOBIN 10.2 GM/dL (10.7-15.3); LYMPH % 29.5 % (8-40); MCHC 34.5 g/dl (32.0-36.0); MEAN CELL VOLUME 92.9 fl (80-96); MEAN PLT VOLUME 10.3 fl (7.5-11.1); MONO % 9.8 % (3.8-10.2); NEUT % 57.6 % (42.8-82.8); PLATELET COUNT 226 K/MM3 (134-434); RBC 3.18 M/mm3 (3.60-5.2); RDW 14.2 % (11.6-15.6); WHITE BLOOD COUNT 6.3 K/mm3 (4.0-10.0)
[2020-08-30 07:42] LABS: CALCIUM 9.4 mg/dL (8.5-10.1)
[2020-08-30 07:43] LABS: BLOOD UREA NITROGEN 36.3 mg/dL (7-18); MAGNESIUM 2.9 mg/dL (1.8-2.4)
[2020-08-30 07:45] LABS: CREATININE 6.6 mg/dL (0.55-1.3)
[2020-08-30 07:46] LABS: BILIRUBIN,TOTAL 0.5 mg/dL (0.2-1); PHOSPHOROUS 5.1 mg/dL (2.5-4.9)
[2020-08-30 07:47] LABS: TOT PROT 7.1 g/dl (6.4-8.2)
[2020-08-30 07:50] LABS: ALBUMIN 3.4 g/dl (3.4-5.0)
[2020-08-30] MEDS: PANTOPRAZOLE SODIUM 40 MG VIAL IVPUSH SCH (09:30)
[2020-08-30] MEDS: NICOTINE 14 MG/24 HOURS TOPICAL PATCH TD SCH (09:31)
[2020-08-30] MEDS: METOCLOPRAMIDE HCL INJECTION 10 MG/2 ML VIAL IVPUSH SCH ×2 (09:31→21:23)
[2020-08-30 12:30] VITALS: BMI 28.0
[2020-08-30] MEDS ORDERED: SODIUM CHLORIDE 250 ML IV PRN (12:41)
[2020-08-30] MEDS ORDERED: PATIENT'S OWN MEDICATION (NON-FORMULARY) (Isosorbide Mononitrate [Isosorbide Mononitrate E PO SCH (14:15)
[2020-08-30] MEDS: busPIRone HCL 10 MG TABLET (FP) PO SCH ×2 (14:22→21:23)
[2020-08-30] MEDS: DULoxetine HCL 30 MG CAPSULE.DR PO SCH (14:22)
[2020-08-30] MEDS ORDERED: cloNIDine-TTS 0.1 MG/24 HRS PATCH.TDWK TD SCH (14:30)
[2020-08-30] MEDS ORDERED: ACETAMINOPHEN 325 MG TABLET (FP) PO ONE (18:24)
[2020-08-30] MEDS ORDERED: NIFEdipine E.R. 90 MG TABLET PO ONE (18:30)
[2020-08-30] MEDS: DILTIAZEM INJECTION 125 MG in SODIUM CHLORIDE 100 ML IVPB SCH (20:15)
[2020-08-30] MEDS: hydrALAZINE HCL 50 MG TABLET (FP) PO SCH (21:22)
[2020-08-30] MEDS: PANTOPRAZOLE 40 MG TABLET PO SCH (21:23)
[2020-08-30] MEDS ORDERED: FAMOTIDINE 20 MG TABLET PO SCH (22:00)
[2020-08-31] MEDS: hydrALAZINE HCL 50 MG TABLET (FP) PO SCH ×3 (05:43→21:59)
[2020-08-31] MEDS: INSULIN SLIDING SCALE (NOVOLOG) 1 VIAL SQ SCH ×4 (06:33→21:59)
[2020-08-31] MEDS: HEPARIN NA (PORCINE) 5,000 UNITS/ML 1ML VIAL SQ SCH ×3 (06:33→21:59)
[2020-08-31 08:03] LABS: BASO % 1.1 % (0-2.0); EOS % 3.2 % (0-4.5); HEMATOCRIT 28.2 % (32.4-45.2); HEMOGLOBIN 9.8 GM/dL (10.7-15.3); LYMPH % 37.5 % (8-40); MCH 32.5 pg (25.7-33.7); MCHC 34.7 g/dl (32.0-36.0); MEAN CELL VOLUME 93.5 fl (80-96); MEAN PLT VOLUME 10.2 fl (7.5-11.1); MONO % 6.5 % (3.8-10.2); NEUT % 51.7 % (42.8-82.8); PLATELET COUNT 217 K/MM3 (134-434); RBC 3.02 M/mm3 (3.60-5.2); RDW 14.1 % (11.6-15.6); WHITE BLOOD COUNT 4.9 K/mm3 (4.0-10.0)
[2020-08-31 08:22] LABS: CHLORIDE 96 mmol/L (98-107); SODIUM 134 mmol/L (136-145)
[2020-08-31 08:28] LABS: ALBUMIN 3.5 g/dl (3.4-5.0); ANION GAP 8 MMOL/L (8-16); BLOOD UREA NITROGEN 49.4 mg/dL (7-18); CALCIUM 8.8 mg/dL (8.5-10.1); CO2 29 mmol/L (21-32); MAGNESIUM 3.3 mg/dL (1.8-2.4)
[2020-08-31 08:29] LABS: GLUCOSE,RANDOM 309 mg/dL (74-106)
[2020-08-31 08:31] LABS: BILIRUBIN,TOTAL 0.4 mg/dL (0.2-1); SGPT/ALT 27 U/L (13-61); TOT PROT 6.9 g/dl (6.4-8.2)
[2020-08-31 08:32] LABS: SGOT/AST 12 U/L (15-37)
[2020-08-31 08:33] LABS: ALK PHOS 209 U/L (45-117)
[2020-08-31 08:34] LABS: CREATININE 8.5 mg/dL (0.55-1.3)
[2020-08-31] MEDS ORDERED: EPOETIN ALFA-EPBX 3,000 UNIT/ML VIAL IVPUSH ONE (09:00)
[2020-08-31] MEDS ORDERED: PT OWN MED DRAWER 7, Y5N ONE (11:07)
[2020-08-31] MEDS: PANTOPRAZOLE 40 MG TABLET PO SCH ×2 (11:08→21:59)
[2020-08-31] MEDS: busPIRone HCL 10 MG TABLET (FP) PO SCH ×2 (11:08→21:59)
[2020-08-31] MEDS: DULoxetine HCL 30 MG CAPSULE.DR PO SCH (11:09)
[2020-08-31] MEDS: ISOSORBIDE MONONITRATE 30 MG TAB.SR.24H (FP) PO SCH (11:09)
[2020-08-31] MEDS: NIFEdipine E.R. 90 MG TABLET PO SCH (11:09)
[2020-08-31] MEDS: LOSARTAN POTASSIUM 50 MG TABLET PO SCH (11:10)
[2020-08-31] MEDS: SUCRALFATE 1 GM/10 ML UNIT DOSE CUPS PO SCH ×3 (11:11→21:59)
[2020-08-31] MEDS: NICOTINE 14 MG/24 HOURS TOPICAL PATCH TD SCH ×2 (11:11→11:59)
[2020-08-31] MEDS: METOCLOPRAMIDE HCL 10 MG TABLET (FP) PO SCH ×2 (11:27→16:24)
[2020-08-31] MEDS ORDERED: LACTULOSE 20 GM/30 ML UDC (FOR ORAL USE ONLY) PO SCH (14:30)
[2020-08-31] MEDS: BISACODYL 5 MG TABLET.DR (FP) PO SCH (15:16)
[2020-08-31] MEDS: POLYETHYLENE GLYCOL 3350 119 GM BTL PO SCH (22:20)
[2020-09-01] MEDS: hydrALAZINE HCL 50 MG TABLET (FP) PO SCH ×2 (06:09→13:40)
[2020-09-01] MEDS: HEPARIN NA (PORCINE) 5,000 UNITS/ML 1ML VIAL SQ SCH ×2 (06:09→13:40)
[2020-09-01] MEDS: METOCLOPRAMIDE HCL 10 MG TABLET (FP) PO SCH ×2 (06:09→11:30)
[2020-09-01] MEDS: SUCRALFATE 1 GM/10 ML UNIT DOSE CUPS PO SCH ×2 (06:09→11:31)
[2020-09-01] MEDS: INSULIN SLIDING SCALE (NOVOLOG) 1 VIAL SQ SCH ×3 (06:12→16:55)
[2020-09-01 08:05] LABS: BASO % 1.7 % (0-2.0); EOS % 3.2 % (0-4.5); HEMATOCRIT 27.9 % (32.4-45.2); HEMOGLOBIN 9.5 GM/dL (10.7-15.3); MCH 31.7 pg (25.7-33.7); MCHC 34.1 g/dl (32.0-36.0); MEAN PLT VOLUME 9.8 fl (7.5-11.1); MONO % 9.9 % (3.8-10.2); NEUT % 48.2 % (42.8-82.8); PLATELET COUNT 216 K/MM3 (134-434); RDW 14.4 % (11.6-15.6); WHITE BLOOD COUNT 4.8 K/mm3 (4.0-10.0)
[2020-09-01 08:27] LABS: CALCIUM 9.4 mg/dL (8.5-10.1)
[2020-09-01 08:28] LABS: ALBUMIN 3.6 g/dl (3.4-5.0); BLOOD UREA NITROGEN 29.5 mg/dL (7-18); MAGNESIUM 3.4 mg/dL (1.8-2.4)
[2020-09-01 08:31] LABS: CREATININE 5.5 mg/dL (0.55-1.3); PHOSPHOROUS 5.2 mg/dL (2.5-4.9)
[2020-09-01 08:32] LABS: BILIRUBIN,TOTAL 0.5 mg/dL (0.2-1); TOT PROT 7.3 g/dl (6.4-8.2)
[2020-09-01] MEDS: busPIRone HCL 10 MG TABLET (FP) PO SCH (09:14)
[2020-09-01] MEDS: LOSARTAN POTASSIUM 50 MG TABLET PO SCH (09:14)
[2020-09-01] MEDS: DULoxetine HCL 30 MG CAPSULE.DR PO SCH (09:15)
[2020-09-01] MEDS: BISACODYL 5 MG TABLET.DR (FP) PO SCH (09:15)
[2020-09-01] MEDS: ISOSORBIDE MONONITRATE 30 MG TAB.SR.24H (FP) PO SCH (09:15)
[2020-09-01] MEDS: NIFEdipine E.R. 90 MG TABLET PO SCH (09:16)
[2020-09-01] MEDS: POLYETHYLENE GLYCOL 3350 119 GM BTL PO SCH (09:16)
[2020-09-01] MEDS: PANTOPRAZOLE 40 MG TABLET PO SCH (09:17)
[2020-09-01] MEDS ORDERED: BISACODYL 5 MG TABLET.DR (FP) PO ONE (09:43)
[2020-09-01] MEDS ORDERED: POLYETHYLENE GLYCOL 3350 119 GM BTL PO SCH ×2 (09:46→10:00)
[2020-09-01] MEDS ORDERED: DOCUSATE SODIUM 100 MG CAPSULE (FP) PO SCH (10:00)
[2020-09-01] MEDS: NICOTINE 14 MG/24 HOURS TOPICAL PATCH TD SCH (10:12)
[2020-09-01] MEDS ORDERED: PT OWN MED DRAWER 7, Y5N ONE (11:28)
[2020-09-01] MEDS ORDERED: GLYCERIN 1 RECTAL SUPPOSITORY, ADULT RC ONE (12:15)
[2020-09-01] MEDS ORDERED: SODIUM CHLORIDE 250 ML IV PRN (14:22)
[2020-09-01 15:20] VITALS: PULSE 83; TEMP 98
[2020-09-01 15:31] VITALS: BP 151/88
[2020-09-01 17:07] LABS: HEP B CORE AB, TOT Negative (Negative)
[2020-09-02] MEDS ORDERED: BISACODYL 5 MG TABLET.DR (FP) PO SCH (10:00)
[2020-09-02] MEDS ORDERED: EPOETIN ALFA-EPBX 4,000 UNIT/ML VIAL SQ ONE (14:22)
[2020-09-06] MEDS ORDERED: cloNIDine-TTS 0.1 MG/24 HRS PATCH.TDWK TD SCH (10:00)
== END 2020-09-01 16:55 | disposition home health service (06) | DRG 73 ==
LOC: JER 14:32 → JERBED 18:30 → J4W 08-30 01:39
PROVIDERS: ADMIT Internal Medicine; ATTEND Internal Medicine
PROC: 5A1D70Z Performance of Urinary Filtration, Intermittent, Less than 6 Hours Per Day (ICD-10-PCS; principal; 2020-08-31)
DX: E11.43 Type 2 diabetes mellitus with diabetic autonomic (poly)neuropathy (principal); N18.6 End stage renal disease; I50.32 Chronic diastolic (congestive) heart failure; I24.8 Other forms of acute ischemic heart disease; I13.2 Hypertensive heart and chronic kidney disease with heart failure and with stage 5 chronic kidney disease, or end stage renal disease; K31.84 Gastroparesis; E11.40 Type 2 diabetes mellitus with diabetic neuropathy, unspecified; I16.0 Hypertensive urgency; K21.9 Gastro-esophageal reflux disease without esophagitis; R11.2 Nausea with vomiting, unspecified; K59.00 Constipation, unspecified; Z99.2 Dependence on renal dialysis; F17.210 Nicotine dependence, cigarettes, uncomplicated
CPT/HCPCS: 36415; 71045-TC-FY; 74176-TC; 80053; 82962; 83690; 83735; 84100; 84484; 85025; 85610; 85730; 86704; 86706; 86707; 86708; 86709; 86803; 86850; 86900; 86901; 87340; 93005; 93010; 99285-25; C9803; J0131; J1644; Q5106; U0003; U0005

== ENCOUNTER 2020-09-06 14:37 | Emergency (ER) | payer OTHER ==
[2020-09-06 14:49] VITALS: BMI 28.2
[2020-09-06] MEDS ORDERED: METOCLOPRAMIDE HCL INJECTION 10 MG/2 ML VIAL IVPUSH ONE (15:18)
[2020-09-06] MEDS ORDERED: FAMOTIDINE 20 MG/50 ML IVPB 20 MG/50 ML MG IVPB ONE ×4 (15:19→18:33)
[2020-09-06] MEDS ORDERED: ACETAMINOPHEN 1000 MG/100 ML BAG IVPB ONE (15:23)
[2020-09-06] MEDS ORDERED: MAG HYDROX/AL HYDROX/SIMETH 30 ML UNIT-DOSE CUP PO ONE (15:51)
[2020-09-06] MEDS ORDERED: LIDOCAINE VISCOUS 2% ORAL/TOP 15 ML UNIT-DOSE CUP MM ONE (15:51)
[2020-09-06] MEDS ORDERED: LIDOCAINE VISCOUS 2% ORAL/TOP 15 ML UNIT-DOSE CUP ONE (15:55)
[2020-09-06] MEDS ORDERED: METOCLOPRAMIDE HCL INJECTION 10 MG/2 ML VIAL ONE (15:55)
[2020-09-06] MEDS ORDERED: MAG HYDROX/AL HYDROX/SIMETH 30 ML UNIT-DOSE CUP ONE (15:55)
[2020-09-06] MEDS ORDERED: ACETAMINOPHEN INJECTION 100 ML IVPB ONE (15:55)
[2020-09-06 16:00] LABS: BASO % 0.9 % (0-2.0); EOS % 1.8 % (0-4.5); HEMOGLOBIN 9.7 GM/dL (10.7-15.3); LYMPH % 21.2 % (8-40); MCH 31.4 pg (25.7-33.7); MCHC 33.5 g/dl (32.0-36.0); MEAN CELL VOLUME 93.6 fl (80-96); MEAN PLT VOLUME 9.3 fl (7.5-11.1); MONO % 11.9 % (3.8-10.2); NEUT % 64.2 % (42.8-82.8); PLATELET COUNT 235 K/MM3 (134-434); RDW 14.8 % (11.6-15.6); WHITE BLOOD COUNT 6.1 K/mm3 (4.0-10.0)
[2020-09-06 16:36] LABS: CALCIUM 9.3 mg/dL (8.5-10.1)
[2020-09-06 16:37] LABS: ALBUMIN 3.5 g/dl (3.4-5.0); BLOOD UREA NITROGEN 31.8 mg/dL (7-18)
[2020-09-06 16:39] LABS: CREATININE 7.1 mg/dL (0.55-1.3)
[2020-09-06 16:41] LABS: BILIRUBIN,TOTAL 0.5 mg/dL (0.2-1); TOT PROT 7.3 g/dl (6.4-8.2)
[2020-09-06] MEDS ORDERED: ISOSORBIDE MONONITRATE 30 MG TAB.SR.24H (FP) PO STA (17:52)
[2020-09-06] MEDS ORDERED: LOSARTAN POTASSIUM 50 MG TABLET PO ONE (17:52)
[2020-09-06] MEDS ORDERED: NIFEdipine E.R. 90 MG TABLET PO STA (17:52)
[2020-09-06] MEDS ORDERED: CARVEDILOL 25 MG TABLET (FP) PO STA (17:52)
[2020-09-06] MEDS ORDERED: hydrALAZINE HCL 50 MG TABLET (FP) PO STA (17:52)
[2020-09-06] MEDS ORDERED: CARVEDILOL 12.5 MG TABLET (FP) ONE (18:03)
[2020-09-06] MEDS ORDERED: NIFEdipine E.R. 30 MG TABLET ONE (18:03)
[2020-09-06] MEDS ORDERED: hydrALAZINE HCL 25 MG TABLET (FP) ONE (18:03)
[2020-09-06] MEDS ORDERED: ISOSORBIDE MONONITRATE 60 MG TAB.SR.24H (FP) PO ONE (18:03)
[2020-09-06] MEDS ORDERED: LOSARTAN POTASSIUM 50 MG TABLET ONE (18:04)
[2020-09-06 19:01] VITALS: BP 136/105; PULSE 70; TEMP 97.8
== END 2020-09-06 19:28 | disposition home or self-care (01) ==
LOC: JER 14:37
PROC: 3E033NZ Introduction of Analgesics, Hypnotics, Sedatives into Peripheral Vein, Percutaneous Approach (ICD-10-PCS; principal; 2020-09-06)
PROC: 3E033GC Introduction of Other Therapeutic Substance into Peripheral Vein, Percutaneous Approach (ICD-10-PCS; 2020-09-06)
DX: K31.84 Gastroparesis (principal); I10 Essential (primary) hypertension
CPT/HCPCS: 36415; 71045-TC-FY; 76705-TC; 80053; 82550; 83690; 83735; 84484; 85025; 93005; 93010; 96365; 96375; 99285-25; C9803; J0131; U0003; U0005

== ENCOUNTER 2020-09-09 17:59 | Emergency (ER) | payer OTHER ==
[2020-09-09 18:15] VITALS: TEMP 98.3; BMI 29.0
[2020-09-09] MEDS ORDERED: ACETAMINOPHEN 1000 MG/100 ML VIAL (NON FORMULARY) IVPB ONE (18:57)
[2020-09-09] MEDS ORDERED: FAMOTIDINE 20 MG/50 ML IVPB 20 MG/50 ML MG IVPB ONE ×2 (18:57→19:39)
[2020-09-09] MEDS ORDERED: LACTATED RINGERS SOLUTION 1000 ML INFUS.BAG IV ONE (18:57)
[2020-09-09] MEDS ORDERED: METOCLOPRAMIDE HCL INJECTION 10 MG/2 ML VIAL IVPB ONE (18:57)
[2020-09-09] MEDS ORDERED: MAG HYDROX/AL HYDROX/SIMETH 30 ML UNIT-DOSE CUP PO ONE ×2 (18:58→21:57)
[2020-09-09] MEDS ORDERED: LIDOCAINE VISCOUS 2% ORAL/TOP 20 ML UNIT-DOSE CUP MM ONE (18:58)
[2020-09-09] MEDS ORDERED: LIDOCAINE VISCOUS 2% ORAL/TOP 20 ML UNIT-DOSE CUP ONE (19:38)
[2020-09-09] MEDS ORDERED: METOCLOPRAMIDE HCL INJECTION 10 MG/2 ML VIAL ONE (19:38)
[2020-09-09] MEDS ORDERED: ACETAMINOPHEN INJECTION 100 ML IVPB ONE (19:39)
[2020-09-09] MEDS ORDERED: MAG HYDROX/AL HYDROX/SIMETH 30 ML UNIT-DOSE CUP ONE ×2 (19:39→22:00)
[2020-09-09 21:25] LABS: BASO % 1.3 % (0-2.0); EOS % 1.8 % (0-4.5); HEMATOCRIT 30.2 % (32.4-45.2); HEMOGLOBIN 10.2 GM/dL (10.7-15.3); LYMPH % 19.1 % (8-40); MCH 31.5 pg (25.7-33.7); MCHC 33.9 g/dl (32.0-36.0); MEAN CELL VOLUME 93.2 fl (80-96); MEAN PLT VOLUME 9.6 fl (7.5-11.1); MONO % 9.1 % (3.8-10.2); NEUT % 68.7 % (42.8-82.8); PLATELET COUNT 261 K/MM3 (134-434); RBC 3.24 M/mm3 (3.60-5.2); RDW 15.2 % (11.6-15.6); WHITE BLOOD COUNT 4.7 K/mm3 (4.0-10.0)
[2020-09-09 21:52] VITALS: BP 152/70; PULSE 84
[2020-09-09 22:01] LABS: CALCIUM 9.2 mg/dL (8.5-10.1)
[2020-09-09 22:02] LABS: ALBUMIN 3.8 g/dl (3.4-5.0); BLOOD UREA NITROGEN 19.6 mg/dL (7-18)
[2020-09-09 22:05] LABS: CREATININE 4.2 mg/dL (0.55-1.3)
[2020-09-09 22:06] LABS: BILIRUBIN,TOTAL 0.7 mg/dL (0.2-1)
== END 2020-09-09 22:14 | disposition left against medical advice (07) ==
LOC: JER 17:59
PROC: 3E0333Z Introduction of Anti-inflammatory into Peripheral Vein, Percutaneous Approach (ICD-10-PCS; principal; 2020-09-09)
PROC: 3E033GC Introduction of Other Therapeutic Substance into Peripheral Vein, Percutaneous Approach (ICD-10-PCS; 2020-09-09)
PROC: 3E033GC Introduction of Other Therapeutic Substance into Peripheral Vein, Percutaneous Approach (ICD-10-PCS; 2020-09-09)
DX: R10.13 Epigastric pain (principal); R11.2 Nausea with vomiting, unspecified
CPT/HCPCS: 36415; 71045-TC-FY; 80053; 83690; 84484; 85025; 93005; 93010; 96374; 96375; 99285-25; C9803; J0131; U0003; U0005

== ENCOUNTER 2020-09-14 05:08 | Day surgery (SDC) | payer OTHER ==
[2020-09-11 15:05] VITALS: BMI 29.0
[2020-09-14 14:00] VITALS: TEMP 97.7
[2020-09-14 15:00] VITALS: BP 168/62; PULSE 64
== END 2020-09-14 14:50 | disposition home or self-care (01) ==
LOC: JASU-ENDO 05:08
PROVIDERS: ATTEND Internal Medicine Gastroenterology
PROC: 0DB78ZX Excision of Stomach, Pylorus, Via Natural or Artificial Opening Endoscopic, Diagnostic (ICD-10-PCS; principal; 2020-09-14 12:30)
DX: K29.60 Other gastritis without bleeding (principal); R10.13 Epigastric pain
CPT/HCPCS: 36415; 82962; 84132; 88305-TC; 88342-TC

== ENCOUNTER 2020-10-23 13:20 | Inpatient (IN) | payer OTHER ==
[2020-10-23] MEDS ORDERED: SODIUM CHLORIDE 0.9% 500 ML INFUS.BAG IV ONE (13:46)
[2020-10-23] MEDS ORDERED: ACETAMINOPHEN 1000 MG/100 ML VIAL (NON FORMULARY) IVPB ONE ×3 (14:02→22:04)
[2020-10-23 14:22] LABS: BASO % 0.6 % (0-2.0); HEMATOCRIT 37.1 % (32.4-45.2); HEMOGLOBIN 11.9 GM/dL (10.7-15.3); MCH 30.1 pg (25.7-33.7); MCHC 32.1 g/dl (32.0-36.0); MEAN CELL VOLUME 93.8 fl (80-96); MEAN PLT VOLUME 9.8 fl (7.5-11.1); MONO % 4.8 % (3.8-10.2); NEUT % 86.6 % (42.8-82.8); PLATELET COUNT 262 10^3/uL (134-434); RBC 3.95 M/mm3 (3.60-5.2); RDW 16.3 % (11.6-15.6); WHITE BLOOD COUNT 11.8 K/mm3 (4.0-10.0)
[2020-10-23] MEDS ORDERED: ACETAMINOPHEN INJECTION 100 ML IVPB ONE ×2 (14:23→19:55)
[2020-10-23 14:24] LABS: VENOUS BASE EXCESS 3.4 mmol/L (-2-2); VENOUS O2 SATURATION 70.1 % (70-80); VENOUS PH 7.426 (7.310-7.410)
[2020-10-23] MEDS: ALBUTEROL SO4 2.5/IPRATROPIUM 0.5 INH SOL 3 ML VIAL.NEB. NEB SCH ×3 (14:27→17:03)
[2020-10-23 14:28] LABS: INR 1.03 (0.83-1.09); PROTHROMBIN TIME (PATIENT) 12.5 SEC (9.7-13.0)
[2020-10-23 14:31] LABS: ACTIVATED PTT 28.1 SECONDS (25.2-36.5)
[2020-10-23] MEDS ORDERED: VANCOMYCIN 1 GM in D5W (PRE-DOCKED) 1,000 MG/250 ML IVPB ONE (14:32)
[2020-10-23] MEDS ORDERED: MIDAZOLAM HCL 2 MG/2 ML SINGLE DOSE VIAL IVPUSH ONE ×2 (14:33→15:16)
[2020-10-23] MEDS ORDERED: ALBUTEROL SO4 2.5/IPRATROPIUM 0.5 INH SOL 3 ML VIAL.NEB. NEB ONE ×2 (14:45→16:55)
[2020-10-23] MEDS ORDERED: MIDAZOLAM HCL 2 MG/2 ML SINGLE DOSE VIAL ONE ×2 (14:45→15:17)
[2020-10-23 14:46] LABS: CHLORIDE 89 mmol/L (98-107); SODIUM 129 mmol/L (136-145)
[2020-10-23 14:48] LABS: CALCIUM 10.7 mg/dL (8.5-10.1)
[2020-10-23 14:49] LABS: ALBUMIN 4.5 g/dl (3.4-5.0); ANION GAP 13 MMOL/L (8-16); BLOOD UREA NITROGEN 44.9 mg/dL (7-18); CO2 26 mmol/L (21-32)
[2020-10-23 14:52] LABS: SGOT/AST 11 U/L (15-37); SGPT/ALT 17 U/L (13-61)
[2020-10-23 14:53] LABS: BILIRUBIN,TOTAL 0.6 mg/dL (0.2-1)
[2020-10-23 14:54] LABS: TOT PROT 8.7 g/dl (6.4-8.2)
[2020-10-23 14:55] LABS: ALK PHOS 199 U/L (45-117)
[2020-10-23] MEDS ORDERED: HALOPERIDOL LACTATE 5 MG/ML IM ONE ×2 (14:57→19:42)
[2020-10-23 14:58] LABS: CREATININE 7.4 mg/dL (0.55-1.3); GLUCOSE,RANDOM 682 mg/dL (74-106)
[2020-10-23] MEDS ORDERED: HALOPERIDOL LACTATE 5 MG/ML ONE ×2 (14:59→19:55)
[2020-10-23] MEDS: MIDAZOLAM HCL 2 MG/2 ML SINGLE DOSE VIAL IVPUSH PRN (15:10)
[2020-10-23] MEDS ORDERED: KETAMINE HCL 200 MG/20 ML VIAL IVPUSH ONE ×3 (15:29→16:52)
[2020-10-23] MEDS ORDERED: KETAMINE HCL 200 MG/20 ML VIAL ONE (15:30)
[2020-10-23] MEDS ORDERED: PIPERACILLIN/TAZOB 4.5 GM 4.5 GM in DEXTROSE 5%-WATER 100 ML IVPB ONE (16:15)
[2020-10-23] MEDS ORDERED: ONDANSETRON 4 MG/2 ML VIAL IVPB ONE (16:54)
[2020-10-23] MEDS ORDERED: PIPERACILLIN/TAZOB 4.5 GM 4.5 GM/100 ML BAG IVPB ONE (17:10)
[2020-10-23] MEDS ORDERED: ONDANSETRON 4 MG/2 ML VIAL ONE (17:10)
[2020-10-23] MEDS ORDERED: VANCOMYCIN 1 GRAM (PRE-DOCKED) 1,000 MG/250 ML BAG IVPB ONE (17:10)
[2020-10-23 19:05] LABS: URINE AMPHETAMINES NEGATIVE (NEGATIVE); URINE BENZODIAZEPINES NEGATIVE (NEGATIVE)
[2020-10-23 19:06] LABS: OPIATES, URI NEGATIVE (NEGATIVE); PHENCYCLIDINE,URINE NEGATIVE (NEGATIVE)
[2020-10-23] MEDS ORDERED: LORazepam 2 MG/ML SDV VIAL IVPUSH ONE (19:26)
[2020-10-23] MEDS ORDERED: LORazepam 2 MG/ML SDV VIAL ONE (19:27)
[2020-10-23 19:28] LABS: COCAINE, UR NEGATIVE (NEGATIVE); METHADONE, UR NEGATIVE (NEGATIVE); URINE BARBITURATES NEGATIVE (NEGATIVE)
[2020-10-23] MEDS ORDERED: INSULIN REGULAR HUMAN 100 UNITS/ML *VIAL IVPUSH ONE (19:44)
[2020-10-23 20:21] LABS: EPI CELLS >36 /uL (0-25.1); HYALINE CASTS 12 /uL (0-3.1); PH,URINE 6.5 (5.0-8.0); URINE APPEARANCE CLOUDY; URINE BACTERIA >9,000 /uL (0-1359); URINE BILIRUBIN NEGATIVE (NEGATIVE); URINE COLOR YELLOW; URINE GLUCOSE (UA) 3+ (NEGATIVE); URINE KETONE NEGATIVE (NEGATIVE); URINE LEUK ESTERASE 1+ (NEGATIVE); URINE NITRITE NEGATIVE (NEGATIVE); URINE PROTEIN 4+ (NEGATIVE); URINE RBC 22 /uL (0-23.9); URINE UROBILINOGEN 0.2 mg/dL (0.2-1.0); URINE WBC 647 /uL (0-25.8)
[2020-10-23 20:37] LABS: ARTERIAL BLD GAS O2 SATURATION 97.5 mmHg (95-98); ARTERIAL BLOOD GAS BASE EXCESS -2.4 mmol/L (-2-2); ARTERIAL BLOOD GAS PO2 102.4 mmHg (80-100); ARTERIAL BLOOD GAS pH 7.366 (7.350-7.450)
[2020-10-23] MEDS ORDERED: ACETAMINOPHEN 325 MG TABLET (FP) PO PRN (21:50)
[2020-10-23] MEDS ORDERED: INSULIN DRIP - PLEASE ORDER UNDER SETS NR ONE (21:56)
[2020-10-23] MEDS ORDERED: LABETALOL HCL 5 MG/1 ML (100MG/20 ML VIAL) IVPUSH ONE (21:59)
[2020-10-23] MEDS ORDERED: PIPERACILLIN/TAZOB 3.375 GM 3.375 GM in DEXTROSE 5%-WATER - 50 ML IVPB ONE (21:59)
[2020-10-23] MEDS ORDERED: PANTOPRAZOLE SODIUM 40 MG VIAL IVPUSH SCH (22:00)
[2020-10-23] MEDS ORDERED: SODIUM CHLORIDE 1,000 ML IV SCH ×2 (22:00→22:28)
[2020-10-23] MEDS ORDERED: HEPARIN NA (PORCINE) 5,000 UNITS/ML 1ML VIAL SQ SCH (22:00)
[2020-10-23] MEDS ORDERED: INSULIN REGULAR HUMAN 100 UNITS/ML *VIAL* (FOR IVP) IVPUSH ONE (22:22)
[2020-10-23] MEDS ORDERED: INSULIN REGULAR 100 UNITS in SODIUM CHLORIDE 99 ML IVPB SCH ×2 (22:30→22:57)
[2020-10-23] MEDS ORDERED: PANTOPRAZOLE SODIUM 40 MG/100 ML BAG IVPB ONE (22:36)
[2020-10-23] MEDS ORDERED: HEPARIN NA (PORCINE) 5,000 UNITS/ML 1ML VIAL ONE (22:37)
[2020-10-23 23:18] LABS: BASO % 0.5 % (0-2.0); HEMATOCRIT 32.2 % (32.4-45.2); HEMOGLOBIN 10.8 GM/dL (10.7-15.3); LYMPH % 7.5 % (8-40); MCH 31.1 pg (25.7-33.7); MCHC 33.6 g/dl (32.0-36.0); MEAN CELL VOLUME 92.6 fl (80-96); MEAN PLT VOLUME 9.6 fl (7.5-11.1); MONO % 6.8 % (3.8-10.2); NEUT % 85.2 % (42.8-82.8); PLATELET COUNT 205 10^3/uL (134-434); RBC 3.48 M/mm3 (3.60-5.2); RDW 16.4 % (11.6-15.6); WHITE BLOOD COUNT 10.1 K/mm3 (4.0-10.0)
[2020-10-23 23:20] LABS: INR 1.08 (0.83-1.09)
[2020-10-23 23:22] LABS: ACTIVATED PTT 28.1 SECONDS (25.2-36.5)
[2020-10-23 23:24] LABS: CHLORIDE 92 mmol/L (98-107); SODIUM 128 mmol/L (136-145)
[2020-10-23 23:26] LABS: CALCIUM 9.5 mg/dL (8.5-10.1)
[2020-10-23 23:27] LABS: ANION GAP 13 MMOL/L (8-16); BLOOD UREA NITROGEN 50.5 mg/dL (7-18); CO2 23 mmol/L (21-32); MAGNESIUM 2.5 mg/dL (1.8-2.4)
[2020-10-23 23:29] LABS: SGPT/ALT 17 U/L (13-61)
[2020-10-23 23:30] LABS: SGOT/AST 19 U/L (15-37)
[2020-10-23 23:31] LABS: BILIRUBIN,TOTAL 0.5 mg/dL (0.2-1); PHOSPHOROUS 4.7 mg/dL (2.5-4.9); TOT PROT 7.6 g/dl (6.4-8.2)
[2020-10-24] MEDS ORDERED: PIPERACILLIN/TAZOB 2.25 GM 2.25 GM in DEXTROSE 5%-WATER - 50 ML IVPB SCH
[2020-10-24] MEDS ORDERED: PIPERACILLIN/TAZOB 3.375 GM 3.375 GM in DEXTROSE 5%-WATER - 50 ML IVPB ONE (00:02)
[2020-10-24 00:03] LABS: ALK PHOS 165 U/L (45-117); CREATININE 7.7 mg/dL (0.55-1.3); GLUCOSE,RANDOM 588 mg/dL (74-106)
[2020-10-24] MEDS ORDERED: HALOPERIDOL LACTATE 5 MG/ML IM ONE (00:14)
[2020-10-24] MEDS ORDERED: PIPERACILLIN/TAZOBACTAM 2.25 GM VIAL IVPB ONE (00:25)
[2020-10-24] MEDS ORDERED: DEXTROSE 5%-WATER - 50 ML IVPB ONE (00:25)
[2020-10-24 01:02] LABS: ARTERIAL BLD GAS O2 SATURATION 97.7 mmHg (95-98); ARTERIAL BLOOD GAS BASE EXCESS -4.4 mmol/L (-2-2); ARTERIAL BLOOD GAS PO2 102.9 mmHg (80-100); ARTERIAL BLOOD GAS pH 7.381 (7.350-7.450)
[2020-10-24 01:04] LABS: ALLENS TEST POSITIVE; PT'S TEMP 102.6
[2020-10-24 01:05] LABS: CHLORIDE 94 mmol/L (98-107); SODIUM 128 mmol/L (136-145)
[2020-10-24 01:07] LABS: CALCIUM 9.3 mg/dL (8.5-10.1)
[2020-10-24 01:08] LABS: ANION GAP 14 MMOL/L (8-16); BLOOD UREA NITROGEN 56.2 mg/dL (7-18); CO2 19 mmol/L (21-32)
[2020-10-24 01:11] LABS: SGOT/AST 17 U/L (15-37); SGPT/ALT 18 U/L (13-61)
[2020-10-24 01:13] LABS: BILIRUBIN,TOTAL 0.5 mg/dL (0.2-1); TOT PROT 7.7 g/dl (6.4-8.2)
[2020-10-24 01:14] LABS: ALK PHOS 167 U/L (45-117)
[2020-10-24 01:19] LABS: GLUCOSE,RANDOM 452 mg/dL (74-106)
[2020-10-24] MEDS: PROPOFOL 1,000,000 MCG/100 ML VIAL IVPB SCH ×5 (02:00→20:57)
[2020-10-24] MEDS ORDERED: ROCURONIUM BROMIDE 100 MG/10 ML VIAL IV ONE (02:02)
[2020-10-24] MEDS ORDERED: ETOMIDATE 20 MG/10 ML AMPUL IVPUSH ONE (02:02)
[2020-10-24] MEDS ORDERED: PROPOFOL 200 MG/20 ML VIAL IVPUSH ONE (02:03)
[2020-10-24] MEDS: FENTANYL IVPB 500 MCG/100 ML BAG IVPB SCH ×3 (02:40→19:18)
[2020-10-24] MEDS: MUPIROCIN 2% TOPICAL OINTMENT FOR DECOLONIZATION NS SCH ×3 (03:13→21:03)
[2020-10-24] MEDS: CHLORHEXIDINE GLUCONATE 4% CLEANSER FOR DECOLONIZATION TP SCH ×2 (03:13→21:03)
[2020-10-24] MEDS: PANTOPRAZOLE SODIUM 40 MG VIAL IVPUSH SCH ×3 (03:44→21:03)
[2020-10-24 03:49] LABS: ARTERIAL BLD GAS O2 SATURATION 98.2 mmHg (95-98); ARTERIAL BLOOD GAS BASE EXCESS -4.6 mmol/L (-2-2); ARTERIAL BLOOD GAS PO2 124.9 mmHg (80-100); ARTERIAL BLOOD GAS pH 7.311 (7.350-7.450)
[2020-10-24 03:51] LABS: ALLENS TEST POSITIVE; VENT MODE A/C; VENT RATE 14
[2020-10-24] MEDS: NICARDIPINE 25 MG in DEXTROSE 5%-WATER - 240 ML IVPB SCH (03:54)
[2020-10-24 08:08] LABS: CHLORIDE 95 mmol/L (98-107); SODIUM 130 mmol/L (136-145)
[2020-10-24 08:10] LABS: CALCIUM 9.7 mg/dL (8.5-10.1)
[2020-10-24 08:11] LABS: ANION GAP 14 MMOL/L (8-16); BLOOD UREA NITROGEN 59.1 mg/dL (7-18); CO2 21 mmol/L (21-32); GLUCOSE,RANDOM 313 mg/dL (74-106)
[2020-10-24 08:14] LABS: SGOT/AST 28 U/L (15-37); SGPT/ALT 28 U/L (13-61)
[2020-10-24 08:15] LABS: BILIRUBIN,TOTAL 0.6 mg/dL (0.2-1)
[2020-10-24 08:17] LABS: ALK PHOS 169 U/L (45-117)
[2020-10-24 08:33] LABS: CREATININE 8.4 mg/dL (0.55-1.3)
[2020-10-24] MEDS ORDERED: SODIUM CHLORIDE 250 ML IV PRN (08:49)
[2020-10-24] MEDS ORDERED: HEPARIN NA (PORCINE) 5,000 UNITS/ML 1ML VIAL IVPUSH ONE (09:45)
[2020-10-24] MEDS ORDERED: VANCOMYCIN 1 GM in D5W (PRE-DOCKED) 1,000 MG/250 ML IVPB SCH (10:00)
[2020-10-24] MEDS ORDERED: VANCOMYCIN 1 GRAM (PRE-DOCKED) 1,000 MG/250 ML BAG IVPB ONE (10:00)
[2020-10-24] MEDS ORDERED: PIPERACILLIN/TAZOB 3.375 GM 3.375 GM in DEXTROSE 5%-WATER - 50 ML IVPB SCH (10:00)
[2020-10-24 10:36] LABS: HIV INTERPRETATION NEGATIVE (NEGATIVE)
[2020-10-24] MEDS ORDERED: CEFEPIME 1 GM in DEXTROSE 5%-WATER 1 GM/100 ML BAG IVPB SCH (15:00)
[2020-10-24] MEDS ORDERED: DEXTROSE 5%-WATER 100 ML IVPB ONE (15:32)
[2020-10-24] MEDS ORDERED: CEFEPIME HCL 1 GM VIAL (RESTRICTED TO ID) ONE (15:32)
[2020-10-24] MEDS ORDERED: PT OWN MED DRAWER 7, Y5N ONE (15:33)
[2020-10-24 17:01] LABS: CSF APPEARANCE CLEAR
[2020-10-24 17:03] LABS: CSF COLOR COLORLESS; CSF WBC 93
[2020-10-24 17:04] LABS: BF GLUCOSE (CSF ONLY) 156 mg/dL (40-70)
[2020-10-24] MEDS ORDERED: AMPICILLIN SODIUM 250 MG VIAL IVPUSH SCH (17:45)
[2020-10-24] MEDS: AMPICILLIN - 2 GM in SODIUM CHLORIDE 100 ML IVPB SCH (17:59)
[2020-10-24] MEDS ORDERED: ACYCLOVIR 1000 MG (50MG/ML) VIAL IVPB SCH (18:00)
[2020-10-24] MEDS: DEXTROSE 5% IVPB SCH (19:17)
[2020-10-24] MEDS: ACYCLOVIR IVPB SCH (19:17)
[2020-10-24] MEDS: WATER IVPB SCH (19:17)
[2020-10-24] MEDS ORDERED: INSULIN SLIDING SCALE (NOVOLOG) 1 VIAL SQ SCH (19:45)
[2020-10-24] MEDS: PIPERACILLIN/TAZOB 2.25 GM 2.25 GM in DEXTROSE 5%-WATER - 50 ML IVPB SCH (20:49)
[2020-10-24] MEDS: INSULIN SLIDING SCALE (NOVOLOG) 1 VIAL SQ SCH (20:56)
[2020-10-24 22:00] LABS: METHADONE, UR NEGATIVE (NEGATIVE); OPIATES, URI NEGATIVE (NEGATIVE); URINE AMPHETAMINES NEGATIVE (NEGATIVE); URINE BARBITURATES NEGATIVE (NEGATIVE)
[2020-10-24 22:01] LABS: PHENCYCLIDINE,URINE NEGATIVE (NEGATIVE)
[2020-10-24 22:02] LABS: COCAINE, UR NEGATIVE (NEGATIVE); URINE BENZODIAZEPINES POSITIVE (NEGATIVE)
[2020-10-25] MEDS: INSULIN SLIDING SCALE (NOVOLOG) 1 VIAL SQ SCH ×6 (00:04→21:50)
[2020-10-25] MEDS: NICARDIPINE 25 MG in DEXTROSE 5%-WATER - 240 ML IVPB SCH (01:36)
[2020-10-25] MEDS ORDERED: DEXTROSE 5%-WATER 100 ML IVPB ONE ×2 (03:52→16:58)
[2020-10-25] MEDS: FENTANYL IVPB 500 MCG/100 ML BAG IVPB SCH (04:55)
[2020-10-25] MEDS: PROPOFOL 1,000,000 MCG/100 ML VIAL IVPB SCH (04:55)
[2020-10-25] MEDS: CEFTRIAXONE 2 GM in DEXTROSE 5%-WATER 2 GM/100 ML BAG IVPB SCH ×2 (05:13→17:02)
[2020-10-25] MEDS: AMPICILLIN - 2 GM in SODIUM CHLORIDE 100 ML IVPB SCH ×2 (06:43→17:03)
[2020-10-25 07:16] LABS: CHLORIDE 96 mmol/L (98-107); SODIUM 134 mmol/L (136-145)
[2020-10-25 07:21] LABS: CALCIUM 8.8 mg/dL (8.5-10.1)
[2020-10-25 07:22] LABS: ANION GAP 9 MMOL/L (8-16); CO2 29 mmol/L (21-32); GLUCOSE,RANDOM 133 mg/dL (74-106); MAGNESIUM 2.1 mg/dL (1.8-2.4)
[2020-10-25 07:24] LABS: BILIRUBIN,DIRECT 0.2 mg/dL (0.0-0.2); SGOT/AST 19 U/L (15-37); SGPT/ALT 18 U/L (13-61)
[2020-10-25 07:25] LABS: BILIRUBIN,TOTAL 0.5 mg/dL (0.2-1); PHOSPHOROUS 4.6 mg/dL (2.5-4.9); TOT PROT 6.2 g/dl (6.4-8.2)
[2020-10-25 08:35] LABS: BASO % 0.9 % (0-2.0); EOS % 1.3 % (0-4.5); HEMATOCRIT 33.6 % (32.4-45.2); LYMPH % 15.6 % (8-40); MCH 30.5 pg (25.7-33.7); MCHC 32.7 g/dl (32.0-36.0); MEAN CELL VOLUME 93.2 fl (80-96); MEAN PLT VOLUME 9.2 fl (7.5-11.1); MONO % 8.9 % (3.8-10.2); NEUT % 73.3 % (42.8-82.8); PLATELET COUNT 190 10^3/uL (134-434); RBC 3.61 M/mm3 (3.60-5.2); RDW 16.5 % (11.6-15.6)
[2020-10-25 08:45] LABS: ALBUMIN 2.9 g/dl (3.4-5.0); ALK PHOS 112 U/L (45-117); BLOOD UREA NITROGEN 23.1 mg/dL (7-18)
[2020-10-25] MEDS ORDERED: PT OWN MED DRAWER 7, Y5N ONE ×2 (09:41→16:57)
[2020-10-25] MEDS: PANTOPRAZOLE SODIUM 40 MG VIAL IVPUSH SCH ×2 (10:06→21:41)
[2020-10-25] MEDS: MUPIROCIN 2% TOPICAL OINTMENT FOR DECOLONIZATION NS SCH ×2 (10:07→21:41)
[2020-10-25] MEDS ORDERED: SODIUM CHLORIDE 250 ML IV PRN (10:10)
[2020-10-25 14:50] VITALS: BMI 28.8
[2020-10-25] MEDS: WATER IVPB SCH (17:03)
[2020-10-25] MEDS: DEXTROSE 5% IVPB SCH (17:03)
[2020-10-25] MEDS: ACYCLOVIR IVPB SCH (17:03)
[2020-10-25] MEDS ORDERED: DEXTROSE 50%-WATER 25 GM/50 ML DISP.SYRIN ONE (17:16)
[2020-10-25] MEDS ORDERED: DEXTROSE 50%-WATER - 25 GM/50 ML VIAL IVPUSH ONE (17:17)
[2020-10-25] MEDS: LIPASE/PROTEASE/AMYLASE 36,000 UNIT CAPSULE PO SCH (21:09)
[2020-10-25] MEDS: CHLORHEXIDINE GLUCONATE 4% CLEANSER FOR DECOLONIZATION TP SCH (21:41)
[2020-10-26] MEDS: INSULIN SLIDING SCALE (NOVOLOG) 1 VIAL SQ SCH ×6 (00:45→20:45)
[2020-10-26] MEDS ORDERED: DEXTROSE 5%-WATER 100 ML IVPB ONE ×2 (04:01→16:06)
[2020-10-26] MEDS: CEFTRIAXONE 2 GM in DEXTROSE 5%-WATER 2 GM/100 ML BAG IVPB SCH ×2 (05:52→16:14)
[2020-10-26] MEDS: AMPICILLIN - 2 GM in SODIUM CHLORIDE 100 ML IVPB SCH ×2 (06:55→18:09)
[2020-10-26 06:59] LABS: CALCIUM 8.1 mg/dL (8.5-10.1)
[2020-10-26 07:00] LABS: BLOOD UREA NITROGEN 34.7 mg/dL (7-18); MAGNESIUM 2.4 mg/dL (1.8-2.4)
[2020-10-26 07:03] LABS: CREATININE 6.2 mg/dL (0.55-1.3); PHOSPHOROUS 6.4 mg/dL (2.5-4.9)
[2020-10-26 08:08] LABS: HEMATOCRIT 36.9 % (32.4-45.2); HEMOGLOBIN 12.1 GM/dL (10.7-15.3); MCH 30.5 pg (25.7-33.7); MCHC 32.7 g/dl (32.0-36.0); MEAN CELL VOLUME 93.1 fl (80-96); MEAN PLT VOLUME 9.6 fl (7.5-11.1); PLATELET COUNT 187 10^3/uL (134-434); RBC 3.97 M/mm3 (3.60-5.2); WHITE BLOOD COUNT 5.3 K/mm3 (4.0-10.0)
[2020-10-26] MEDS: NICARDIPINE 25 MG in DEXTROSE 5%-WATER - 240 ML IVPB SCH (10:00)
[2020-10-26] MEDS: LIPASE/PROTEASE/AMYLASE 36,000 UNIT CAPSULE PO SCH ×3 (10:17→16:47)
[2020-10-26] MEDS: MUPIROCIN 2% TOPICAL OINTMENT FOR DECOLONIZATION NS SCH ×2 (11:20→21:26)
[2020-10-26] MEDS: PANTOPRAZOLE SODIUM 40 MG VIAL IVPUSH SCH ×2 (11:20→21:11)
[2020-10-26] MEDS: FENTANYL IVPB 500 MCG/100 ML BAG IVPB SCH ×2 (11:30→11:32)
[2020-10-26] MEDS: PROPOFOL 1,000,000 MCG/100 ML VIAL IVPB SCH ×2 (13:46→21:05)
[2020-10-26] MEDS: NYSTATIN 500,000 UNITS/5 ML SUSPENSION PO SCH (17:58)
[2020-10-26] MEDS: WATER IVPB SCH (18:55)
[2020-10-26] MEDS: ACYCLOVIR IVPB SCH (18:55)
[2020-10-26] MEDS ORDERED: VANCOMYCIN 500 MG in DEXTROSE 5%-WATER 100 ML IVPB ONE (18:55)
[2020-10-26] MEDS: DEXTROSE 5% IVPB SCH (18:55)
[2020-10-26] MEDS ORDERED: PT OWN MED DRAWER 7, Y5N ONE (21:04)
[2020-10-26] MEDS: HEPARIN NA (PORCINE) 5,000 UNITS/ML 1ML VIAL SQ SCH (21:11)
[2020-10-26] MEDS: CHLORHEXIDINE GLUCONATE 4% CLEANSER FOR DECOLONIZATION TP SCH (21:26)
[2020-10-27] MEDS: NYSTATIN 500,000 UNITS/5 ML SUSPENSION PO SCH ×4 (00:07→17:53)
[2020-10-27] MEDS: INSULIN SLIDING SCALE (NOVOLOG) 1 VIAL SQ SCH ×6 (00:17→21:35)
[2020-10-27] MEDS ORDERED: DEXTROSE 5%-WATER 100 ML IVPB ONE ×4 (03:58→21:18)
[2020-10-27] MEDS: CEFTRIAXONE 2 GM in DEXTROSE 5%-WATER 2 GM/100 ML BAG IVPB SCH ×2 (04:02→16:23)
[2020-10-27] MEDS: FENTANYL IVPB 500 MCG/100 ML BAG IVPB SCH (04:23)
[2020-10-27] MEDS: PROPOFOL 1,000,000 MCG/100 ML VIAL IVPB SCH (04:23)
[2020-10-27] MEDS: NICARDIPINE 25 MG in DEXTROSE 5%-WATER - 240 ML IVPB SCH ×2 (05:05→21:30)
[2020-10-27] MEDS: AMPICILLIN - 2 GM in SODIUM CHLORIDE 100 ML IVPB SCH ×2 (05:07→17:53)
[2020-10-27] MEDS: MUPIROCIN 2% TOPICAL OINTMENT FOR DECOLONIZATION NS SCH ×2 (09:49→21:37)
[2020-10-27] MEDS: LIPASE/PROTEASE/AMYLASE 36,000 UNIT CAPSULE PO SCH ×3 (09:49→17:53)
[2020-10-27] MEDS: PANTOPRAZOLE SODIUM 40 MG VIAL IVPUSH SCH ×2 (10:30→21:34)
[2020-10-27] MEDS ORDERED: LABETALOL HCL 5 MG/1 ML (100MG/20 ML VIAL) IVPUSH ONE ×2 (12:18→13:30)
[2020-10-27 12:27] LABS: HEMATOCRIT 34.5 % (32.4-45.2); HEMOGLOBIN 11.3 GM/dL (10.7-15.3); MCH 30.5 pg (25.7-33.7); MCHC 32.7 g/dl (32.0-36.0); MEAN CELL VOLUME 93.3 fl (80-96); MEAN PLT VOLUME 9.2 fl (7.5-11.1); PLATELET COUNT 202 10^3/uL (134-434); RDW 17.4 % (11.6-15.6); WHITE BLOOD COUNT 8.3 K/mm3 (4.0-10.0)
[2020-10-27 12:54] LABS: CALCIUM 8.9 mg/dL (8.5-10.1)
[2020-10-27 12:55] LABS: BLOOD UREA NITROGEN 20.4 mg/dL (7-18); MAGNESIUM 2.5 mg/dL (1.8-2.4)
[2020-10-27 12:58] LABS: CREATININE 4.6 mg/dL (0.55-1.3); PHOSPHOROUS 6.8 mg/dL (2.5-4.9)
[2020-10-27 12:59] LABS: BILIRUBIN,TOTAL 0.4 mg/dL (0.2-1)
[2020-10-27] MEDS ORDERED: cloNIDine-TTS 0.1 MG/24 HRS PATCH.TDWK TD SCH ×2 (13:30→13:39)
[2020-10-27] MEDS ORDERED: NICARDIPINE 25 MG in DEXTROSE 5%-WATER - 240 ML IVPB SCH (13:30)
[2020-10-27] MEDS ORDERED: DOXYCYCLINE HYCLATE 100 MG VIAL ONE ×2 (14:38→21:17)
[2020-10-27] MEDS ORDERED: PT OWN MED DRAWER 7, Y5N ONE ×2 (14:38→16:42)
[2020-10-27] MEDS: DOXYCYCLINE INJECTION 100 MG in DEXTROSE 5%-WATER 100 ML IVPB SCH ×2 (14:43→21:34)
[2020-10-27] MEDS: HEPARIN NA (PORCINE) 5,000 UNITS/ML 1ML VIAL SQ SCH ×2 (14:45→21:34)
[2020-10-27] MEDS ORDERED: hydrALAZINE HCL 20 MG/ML VIAL IVPUSH ONE (16:26)
[2020-10-27] MEDS ORDERED: ONDANSETRON 4 MG/2 ML VIAL IVPUSH ONE (16:55)
[2020-10-27] MEDS: ACYCLOVIR IVPB SCH (17:08)
[2020-10-27] MEDS: DEXTROSE 5% IVPB SCH (17:08)
[2020-10-27] MEDS: WATER IVPB SCH (17:08)
[2020-10-27] MEDS: CHLORHEXIDINE GLUCONATE 4% CLEANSER FOR DECOLONIZATION TP SCH (21:35)
[2020-10-28] MEDS: NYSTATIN 500,000 UNITS/5 ML SUSPENSION PO SCH ×4 (00:12→18:15)
[2020-10-28] MEDS ORDERED: DEXTROSE 5%-WATER 100 ML IVPB ONE ×4 (04:29→21:12)
[2020-10-28] MEDS: PROPOFOL 1,000,000 MCG/100 ML VIAL IVPB SCH (04:30)
[2020-10-28] MEDS: FENTANYL IVPB 500 MCG/100 ML BAG IVPB SCH (04:30)
[2020-10-28] MEDS: CEFTRIAXONE 2 GM in DEXTROSE 5%-WATER 2 GM/100 ML BAG IVPB SCH ×2 (04:31→18:18)
[2020-10-28] MEDS: HEPARIN NA (PORCINE) 5,000 UNITS/ML 1ML VIAL SQ SCH ×3 (06:04→21:15)
[2020-10-28] MEDS: INSULIN SLIDING SCALE (NOVOLOG) 1 VIAL SQ SCH ×4 (06:06→21:18)
[2020-10-28 06:47] LABS: BASO % 0.6 % (0-2.0); EOS % 1.1 % (0-4.5); HEMATOCRIT 32.3 % (32.4-45.2); HEMOGLOBIN 10.6 GM/dL (10.7-15.3); LYMPH % 10.1 % (8-40); MCH 30.4 pg (25.7-33.7); MCHC 32.8 g/dl (32.0-36.0); MEAN CELL VOLUME 92.7 fl (80-96); MEAN PLT VOLUME 9.2 fl (7.5-11.1); MONO % 10.4 % (3.8-10.2); NEUT % 77.8 % (42.8-82.8); PLATELET COUNT 190 10^3/uL (134-434); RBC 3.48 M/mm3 (3.60-5.2); RDW 16.4 % (11.6-15.6); WHITE BLOOD COUNT 8.8 K/mm3 (4.0-10.0)
[2020-10-28 06:57] LABS: ALBUMIN 3.3 g/dl (3.4-5.0); BLOOD UREA NITROGEN 27.4 mg/dL (7-18); CALCIUM 9.2 mg/dL (8.5-10.1); MAGNESIUM 2.7 mg/dL (1.8-2.4)
[2020-10-28 06:58] LABS: TOT PROT 7.2 g/dl (6.4-8.2)
[2020-10-28 07:00] LABS: CREATININE 5.7 mg/dL (0.55-1.3)
[2020-10-28 07:01] LABS: BILIRUBIN,TOTAL 0.8 mg/dL (0.2-1); PHOSPHOROUS 6.2 mg/dL (2.5-4.9)
[2020-10-28] MEDS: LIPASE/PROTEASE/AMYLASE 36,000 UNIT CAPSULE PO SCH ×3 (08:52→18:15)
[2020-10-28] MEDS ORDERED: DOXYCYCLINE HYCLATE 100 MG VIAL ONE ×2 (09:32→21:12)
[2020-10-28] MEDS: MUPIROCIN 2% TOPICAL OINTMENT FOR DECOLONIZATION NS SCH (09:42)
[2020-10-28] MEDS: DOXYCYCLINE INJECTION 100 MG in DEXTROSE 5%-WATER 100 ML IVPB SCH ×2 (09:49→21:15)
[2020-10-28] MEDS ORDERED: PT OWN MED DRAWER 7, Y5N ONE ×3 (09:55→18:36)
[2020-10-28] MEDS: PANTOPRAZOLE SODIUM 40 MG VIAL IVPUSH SCH ×2 (10:03→21:15)
[2020-10-28] MEDS ORDERED: niCARdipine HCL 25 MG/10 ML AMPUL IVPB ONE (11:46)
[2020-10-28] MEDS: NICARDIPINE 25 MG in DEXTROSE 5%-WATER - 240 ML IVPB SCH ×4 (12:00→21:14)
[2020-10-28 16:12] LABS: MYCOPLASMA PNEUMONIAE,IG G AB <100 U/mL (0-99); MYCOPLASMA PNEUMONIAE,IGM AB <770 U/mL (0-769)
[2020-10-28] MEDS: DEXTROSE 5% IVPB SCH (18:15)
[2020-10-28] MEDS: WATER IVPB SCH (18:15)
[2020-10-28] MEDS: ACYCLOVIR IVPB SCH (18:15)
[2020-10-28] MEDS: CHLORHEXIDINE GLUCONATE 4% CLEANSER FOR DECOLONIZATION TP SCH (21:15)
[2020-10-29] MEDS: NYSTATIN 500,000 UNITS/5 ML SUSPENSION PO SCH ×4 (01:30→17:28)
[2020-10-29] MEDS: CEFTRIAXONE 2 GM in DEXTROSE 5%-WATER 2 GM/100 ML BAG IVPB SCH ×2 (06:05→17:33)
[2020-10-29 07:09] LABS: BASO % 0.7 % (0-2.0); EOS % 1.4 % (0-4.5); HEMOGLOBIN 8.6 GM/dL (10.7-15.3); LYMPH % 12.6 % (8-40); MCH 31.3 pg (25.7-33.7); MCHC 33.1 g/dl (32.0-36.0); MEAN CELL VOLUME 94.8 fl (80-96); MEAN PLT VOLUME 9.2 fl (7.5-11.1); MONO % 6.3 % (3.8-10.2); RBC 2.74 M/mm3 (3.60-5.2); RDW 16.4 % (11.6-15.6); WHITE BLOOD COUNT 3.8 K/mm3 (4.0-10.0)
[2020-10-29 07:15] LABS: PLATELET COUNT 29 10^3/uL (134-434)
[2020-10-29 07:24] LABS: ALBUMIN 3.3 g/dl (3.4-5.0); CALCIUM 9.6 mg/dL (8.5-10.1)
[2020-10-29] MEDS: INSULIN SLIDING SCALE (NOVOLOG) 1 VIAL SQ SCH ×4 (07:24→22:16)
[2020-10-29 07:25] LABS: BLOOD UREA NITROGEN 10.6 mg/dL (7-18); MAGNESIUM 2.2 mg/dL (1.8-2.4)
[2020-10-29 07:28] LABS: CREATININE 3.8 mg/dL (0.55-1.3); PHOSPHOROUS 4.5 mg/dL (2.5-4.9)
[2020-10-29 07:29] LABS: BILIRUBIN,TOTAL 0.6 mg/dL (0.2-1); TOT PROT 7.7 g/dl (6.4-8.2)
[2020-10-29] MEDS: PROPOFOL 1,000,000 MCG/100 ML VIAL IVPB SCH (07:44)
[2020-10-29] MEDS: LIPASE/PROTEASE/AMYLASE 36,000 UNIT CAPSULE PO SCH ×3 (08:57→17:28)
[2020-10-29] MEDS ORDERED: DOXYCYCLINE HYCLATE 100 MG VIAL ONE (09:26)
[2020-10-29] MEDS ORDERED: DEXTROSE 5%-WATER 100 ML IVPB ONE ×2 (09:27→17:32)
[2020-10-29] MEDS ORDERED: PT OWN MED DRAWER 7, Y5N ONE ×3 (09:27→17:32)
[2020-10-29] MEDS: PANTOPRAZOLE SODIUM 40 MG VIAL IVPUSH SCH ×2 (09:48→21:59)
[2020-10-29] MEDS: KCL 10 MEQ IVPB 10 MEQ/100 ML INFUS.BAG IVPB SCH ×2 (09:49→11:00)
[2020-10-29] MEDS: DOXYCYCLINE INJECTION 100 MG in DEXTROSE 5%-WATER 100 ML IVPB SCH (09:49)
[2020-10-29 10:30] LABS: BASO % 0.7 % (0-2.0); EOS % 1.3 % (0-4.5); HEMATOCRIT 34.2 % (32.4-45.2); HEMOGLOBIN 11.4 GM/dL (10.7-15.3); LYMPH % 8.9 % (8-40); MCH 30.8 pg (25.7-33.7); MCHC 33.4 g/dl (32.0-36.0); MEAN CELL VOLUME 92.1 fl (80-96); MONO % 7.8 % (3.8-10.2); NEUT % 81.3 % (42.8-82.8); PLATELET COUNT 219 10^3/uL (134-434); RBC 3.71 M/mm3 (3.60-5.2); WHITE BLOOD COUNT 7.9 K/mm3 (4.0-10.0)
[2020-10-29 10:39] LABS: INR 1.04 (0.83-1.09); PROTHROMBIN TIME (PATIENT) 12.6 SEC (9.7-13.0)
[2020-10-29 10:42] LABS: ACTIVATED PTT 28.1 SECONDS (25.2-36.5)
[2020-10-29] MEDS: VANCOMYCIN 250 MG/5 ML ORAL SOLUTION PO SCH ×2 (11:32→17:28)
[2020-10-29] MEDS: CARVEDILOL 25 MG TABLET (FP) PO SCH ×2 (13:49→21:58)
[2020-10-29] MEDS: ISOSORBIDE MONONITRATE 30 MG TAB.SR.24H (FP) PO SCH (13:49)
[2020-10-29] MEDS: LOSARTAN POTASSIUM 50 MG TABLET PO SCH (13:49)
[2020-10-29 15:08] LABS: WEST NILE VIRUS AB SERUM,IGM Negative (Negative)
[2020-10-29] MEDS: DEXTROSE 5% IVPB SCH (17:28)
[2020-10-29] MEDS: ACYCLOVIR IVPB SCH (17:28)
[2020-10-29] MEDS: WATER IVPB SCH (17:28)
[2020-10-29] MEDS: CHLORHEXIDINE GLUCONATE 4% CLEANSER FOR DECOLONIZATION TP SCH (21:58)
[2020-10-30] MEDS: NYSTATIN 500,000 UNITS/5 ML SUSPENSION PO SCH ×4 (00:11→17:24)
[2020-10-30] MEDS: VANCOMYCIN 250 MG/5 ML ORAL SOLUTION PO SCH ×4 (00:11→17:24)
[2020-10-30] MEDS ORDERED: DEXTROSE 5%-WATER 100 ML IVPB ONE ×2 (06:10→16:01)
[2020-10-30] MEDS: CEFTRIAXONE 2 GM in DEXTROSE 5%-WATER 2 GM/100 ML BAG IVPB SCH ×2 (06:19→16:05)
[2020-10-30] MEDS: INSULIN SLIDING SCALE (NOVOLOG) 1 VIAL SQ SCH ×4 (06:26→22:14)
[2020-10-30] MEDS: LIPASE/PROTEASE/AMYLASE 36,000 UNIT CAPSULE PO SCH ×3 (08:45→17:24)
[2020-10-30] MEDS: CARVEDILOL 25 MG TABLET (FP) PO SCH ×2 (10:00→22:14)
[2020-10-30] MEDS: LOSARTAN POTASSIUM 50 MG TABLET PO SCH (10:00)
[2020-10-30] MEDS: ISOSORBIDE MONONITRATE 30 MG TAB.SR.24H (FP) PO SCH (10:00)
[2020-10-30] MEDS: MIDAZOLAM HCL 2 MG/2 ML SINGLE DOSE VIAL IVPUSH PRN (10:01)
[2020-10-30] MEDS: PANTOPRAZOLE SODIUM 40 MG VIAL IVPUSH SCH ×2 (10:01→22:15)
[2020-10-30] MEDS ORDERED: PT OWN MED DRAWER 7, Y5N ONE ×5 (10:50→18:59)
[2020-10-30] MEDS ORDERED: SODIUM CHLORIDE 250 ML IV PRN ×2 (13:20→13:21)
[2020-10-30] MEDS ORDERED: EPOETIN ALFA-EPBX 4,000 UNIT/ML VIAL SQ ONE (13:30)
[2020-10-30] MEDS: WATER IVPB SCH (17:23)
[2020-10-30] MEDS: DEXTROSE 5% IVPB SCH (17:23)
[2020-10-30] MEDS: ACYCLOVIR IVPB SCH (17:23)
[2020-10-30] MEDS ORDERED: MIDAZOLAM HCL 2 MG/2 ML SINGLE DOSE VIAL IVPUSH PRN (21:08)
[2020-10-30] MEDS ORDERED: CHLORHEXIDINE GLUCONATE 4% CLEANSER FOR DECOLONIZATION TP SCH (22:00)
[2020-10-31] MEDS: VANCOMYCIN 250 MG/5 ML ORAL SOLUTION PO SCH ×4 (00:27→17:22)
[2020-10-31] MEDS: NYSTATIN 500,000 UNITS/5 ML SUSPENSION PO SCH ×4 (00:27→17:21)
[2020-10-31] MEDS ORDERED: ACETAMINOPHEN 1000 MG/100 ML VIAL (NON FORMULARY) IVPB ONE (02:08)
[2020-10-31] MEDS ORDERED: LIDOCAINE HCL 2% JELLY (5 ML/TUBE) TP PRN (02:13)
[2020-10-31] MEDS ORDERED: DEXTROSE 5%-WATER 100 ML IVPB ONE ×2 (06:12→17:13)
[2020-10-31] MEDS: CEFTRIAXONE 2 GM in DEXTROSE 5%-WATER 2 GM/100 ML BAG IVPB SCH ×2 (06:16→17:21)
[2020-10-31] MEDS: INSULIN SLIDING SCALE (NOVOLOG) 1 VIAL SQ SCH ×4 (06:17→21:31)
[2020-10-31 09:29] LABS: BASO % 0.9 % (0-2.0); EOS % 2.4 % (0-4.5); HEMATOCRIT 34.6 % (32.4-45.2); HEMOGLOBIN 11.3 GM/dL (10.7-15.3); LYMPH % 23.5 % (8-40); MCH 30.6 pg (25.7-33.7); MCHC 32.8 g/dl (32.0-36.0); MEAN CELL VOLUME 93.5 fl (80-96); MEAN PLT VOLUME 8.9 fl (7.5-11.1); MONO % 14.1 % (3.8-10.2); NEUT % 59.1 % (42.8-82.8); PLATELET COUNT 262 10^3/uL (134-434); RDW 16.4 % (11.6-15.6); WHITE BLOOD COUNT 5.6 K/mm3 (4.0-10.0)
[2020-10-31 10:01] LABS: ALBUMIN 2.8 g/dl (3.4-5.0); BLOOD UREA NITROGEN 8.8 mg/dL (7-18)
[2020-10-31 10:02] LABS: MAGNESIUM 2.1 mg/dL (1.8-2.4)
[2020-10-31 10:03] LABS: CREATININE 4.3 mg/dL (0.55-1.3)
[2020-10-31 10:05] LABS: BILIRUBIN,TOTAL 0.4 mg/dL (0.2-1); CALCIUM 9.5 mg/dL (8.5-10.1); TOT PROT 6.4 g/dl (6.4-8.2)
[2020-10-31] MEDS ORDERED: PT OWN MED DRAWER 7, Y5N ONE ×3 (10:38→17:13)
[2020-10-31] MEDS: CARVEDILOL 25 MG TABLET (FP) PO SCH ×2 (10:40→21:30)
[2020-10-31] MEDS: ISOSORBIDE MONONITRATE 30 MG TAB.SR.24H (FP) PO SCH (10:40)
[2020-10-31] MEDS: LIPASE/PROTEASE/AMYLASE 36,000 UNIT CAPSULE PO SCH ×3 (10:40→17:21)
[2020-10-31] MEDS: LOSARTAN POTASSIUM 50 MG TABLET PO SCH (10:40)
[2020-10-31] MEDS: PANTOPRAZOLE SODIUM 40 MG VIAL IVPUSH SCH ×2 (10:41→21:31)
[2020-10-31 17:10] LABS: MUMPS AB IGG CSF < 5.0 AU/mL (<=10.9); TOXOPLASMA IGG,CSF < 3.0 IU/mL (.)
[2020-10-31] MEDS: DEXTROSE 5% IVPB SCH (17:21)
[2020-10-31] MEDS: ACYCLOVIR IVPB SCH (17:21)
[2020-10-31] MEDS: WATER IVPB SCH (17:21)
[2020-10-31] MEDS ORDERED: POTASSIUM CHLORIDE TABS 20 MEQ TABLET.ER (FP) PO ONE (17:45)
[2020-11-01] MEDS: NYSTATIN 500,000 UNITS/5 ML SUSPENSION PO SCH ×5 (00:06→23:05)
[2020-11-01] MEDS: VANCOMYCIN 250 MG/5 ML ORAL SOLUTION PO SCH ×5 (00:06→23:05)
[2020-11-01] MEDS ORDERED: DEXTROSE 5%-WATER 100 ML IVPB ONE ×2 (04:08→15:32)
[2020-11-01] MEDS: CEFTRIAXONE 2 GM in DEXTROSE 5%-WATER 2 GM/100 ML BAG IVPB SCH ×2 (04:09→16:09)
[2020-11-01] MEDS: hydrALAZINE HCL 20 MG/ML VIAL IVPUSH PRN ×2 (05:52→06:50)
[2020-11-01] MEDS: INSULIN SLIDING SCALE (NOVOLOG) 1 VIAL SQ SCH ×4 (06:11→22:19)
[2020-11-01 08:50] LABS: BASO % 1.1 % (0-2.0); EOS % 2.8 % (0-4.5); HEMATOCRIT 33.6 % (32.4-45.2); MCH 30.7 pg (25.7-33.7); MCHC 32.9 g/dl (32.0-36.0); MEAN CELL VOLUME 93.4 fl (80-96); MEAN PLT VOLUME 8.4 fl (7.5-11.1); NEUT % 51.1 % (42.8-82.8); PLATELET COUNT 291 10^3/uL (134-434); RBC 3.59 M/mm3 (3.60-5.2); RDW 16.9 % (11.6-15.6); WHITE BLOOD COUNT 6.1 K/mm3 (4.0-10.0)
[2020-11-01 09:08] LABS: BLOOD UREA NITROGEN 13.8 mg/dL (7-18); CALCIUM 9.4 mg/dL (8.5-10.1)
[2020-11-01 09:09] LABS: MAGNESIUM 2.2 mg/dL (1.8-2.4)
[2020-11-01 09:12] LABS: CREATININE 5.9 mg/dL (0.55-1.3)
[2020-11-01 09:13] LABS: BILIRUBIN,TOTAL 0.4 mg/dL (0.2-1); TOT PROT 6.8 g/dl (6.4-8.2)
[2020-11-01] MEDS: LIPASE/PROTEASE/AMYLASE 36,000 UNIT CAPSULE PO SCH ×4 (09:17→18:10)
[2020-11-01] MEDS ORDERED: PT OWN MED DRAWER 7, Y5N ONE ×3 (09:28→15:36)
[2020-11-01] MEDS: CARVEDILOL 25 MG TABLET (FP) PO SCH ×2 (09:35→22:19)
[2020-11-01] MEDS: ISOSORBIDE MONONITRATE 30 MG TAB.SR.24H (FP) PO SCH (09:35)
[2020-11-01] MEDS: PANTOPRAZOLE SODIUM 40 MG VIAL IVPUSH SCH ×2 (09:35→22:19)
[2020-11-01] MEDS: LOSARTAN POTASSIUM 50 MG TABLET PO SCH (09:35)
[2020-11-01] MEDS ORDERED: SODIUM CHLORIDE 250 ML IV PRN ×2 (13:08)
[2020-11-01] MEDS: ACYCLOVIR IVPB SCH (18:12)
[2020-11-01] MEDS: DEXTROSE 5% IVPB SCH (18:12)
[2020-11-01] MEDS: WATER IVPB SCH (18:12)
[2020-11-01] MEDS: hydrALAZINE HCL 10 MG TABLET PO SCH (22:19)
[2020-11-02] MEDS ORDERED: DEXTROSE 5%-WATER 100 ML IVPB ONE ×2 (04:43→17:10)
[2020-11-02] MEDS: CEFTRIAXONE 2 GM in DEXTROSE 5%-WATER 2 GM/100 ML BAG IVPB SCH ×2 (04:49→17:19)
[2020-11-02] MEDS: NYSTATIN 500,000 UNITS/5 ML SUSPENSION PO SCH ×4 (05:47→23:27)
[2020-11-02] MEDS: VANCOMYCIN 250 MG/5 ML ORAL SOLUTION PO SCH ×4 (05:47→23:27)
[2020-11-02] MEDS: INSULIN SLIDING SCALE (NOVOLOG) 1 VIAL SQ SCH ×4 (06:00→21:36)
[2020-11-02] MEDS: hydrALAZINE HCL 10 MG TABLET PO SCH ×3 (06:40→21:35)
[2020-11-02] MEDS: LIPASE/PROTEASE/AMYLASE 36,000 UNIT CAPSULE PO SCH ×3 (08:30→17:19)
[2020-11-02] MEDS ORDERED: PT OWN MED DRAWER 7, Y5N ONE ×3 (08:39→17:10)
[2020-11-02 10:11] LABS: BASO % 1.1 % (0-2.0); EOS % 3.3 % (0-4.5); HEMOGLOBIN 11.1 GM/dL (10.7-15.3); LYMPH % 25.6 % (8-40); MCH 30.7 pg (25.7-33.7); MCHC 32.7 g/dl (32.0-36.0); MEAN CELL VOLUME 93.8 fl (80-96); MEAN PLT VOLUME 8.5 fl (7.5-11.1); MONO % 11.9 % (3.8-10.2); NEUT % 58.1 % (42.8-82.8); PLATELET COUNT 272 10^3/uL (134-434); RBC 3.63 M/mm3 (3.60-5.2); RDW 17.1 % (11.6-15.6); WHITE BLOOD COUNT 6.1 K/mm3 (4.0-10.0)
[2020-11-02 10:28] LABS: ALBUMIN 2.9 g/dl (3.4-5.0); BLOOD UREA NITROGEN 15.2 mg/dL (7-18); CALCIUM 9.5 mg/dL (8.5-10.1); MAGNESIUM 2.1 mg/dL (1.8-2.4)
[2020-11-02 10:31] LABS: CREATININE 5.9 mg/dL (0.55-1.3); PHOSPHOROUS 4.5 mg/dL (2.5-4.9)
[2020-11-02 10:33] LABS: BILIRUBIN,TOTAL 0.5 mg/dL (0.2-1); TOT PROT 6.9 g/dl (6.4-8.2)
[2020-11-02] MEDS: ZINC OXIDE/PANTHENOL/VITAMIN E 56 GM TUBE TP SCH ×2 (12:43→21:35)
[2020-11-02] MEDS: PANTOPRAZOLE SODIUM 40 MG VIAL IVPUSH SCH ×2 (12:43→21:36)
[2020-11-02] MEDS: CARVEDILOL 25 MG TABLET (FP) PO SCH ×2 (12:44→21:35)
[2020-11-02] MEDS: LOSARTAN POTASSIUM 50 MG TABLET PO SCH (12:44)
[2020-11-02] MEDS: ISOSORBIDE MONONITRATE 30 MG TAB.SR.24H (FP) PO SCH (16:09)
[2020-11-02] MEDS: WATER IVPB SCH (17:19)
[2020-11-02] MEDS: DEXTROSE 5% IVPB SCH (17:19)
[2020-11-02] MEDS: ACYCLOVIR IVPB SCH (17:19)
[2020-11-02 19:07] LABS: HERPES SIMPLEX TYPE 1 IGM 0.13 IV (<=0.89)
[2020-11-02] MEDS: HEPARIN NA (PORCINE) 5,000 UNITS/ML 1ML VIAL SQ SCH (21:35)
[2020-11-02] MEDS: TETRAHYDROZOLINE HCL EYE DROPS OU SCH (21:36)
[2020-11-03] MEDS ORDERED: DEXTROSE 5%-WATER 100 ML IVPB ONE ×2 (04:40→16:59)
[2020-11-03] MEDS: CEFTRIAXONE 2 GM in DEXTROSE 5%-WATER 2 GM/100 ML BAG IVPB SCH ×2 (05:02→17:03)
[2020-11-03] MEDS ORDERED: hydrALAZINE HCL 20 MG/ML VIAL IVPUSH ONE (05:57)
[2020-11-03] MEDS: NYSTATIN 500,000 UNITS/5 ML SUSPENSION PO SCH ×3 (06:19→18:04)
[2020-11-03] MEDS: VANCOMYCIN 250 MG/5 ML ORAL SOLUTION PO SCH ×3 (06:19→18:05)
[2020-11-03] MEDS: INSULIN SLIDING SCALE (NOVOLOG) 1 VIAL SQ SCH ×4 (06:25→22:11)
[2020-11-03] MEDS ORDERED: PT OWN MED DRAWER 7, Y5N ONE ×3 (08:22→17:00)
[2020-11-03] MEDS: LIPASE/PROTEASE/AMYLASE 36,000 UNIT CAPSULE PO SCH ×3 (08:30→18:05)
[2020-11-03] MEDS: CARVEDILOL 25 MG TABLET (FP) PO SCH ×2 (09:04→21:03)
[2020-11-03] MEDS: hydrALAZINE HCL 10 MG TABLET PO SCH ×2 (09:05→21:03)
[2020-11-03] MEDS: ISOSORBIDE MONONITRATE 30 MG TAB.SR.24H (FP) PO SCH (09:05)
[2020-11-03] MEDS: PANTOPRAZOLE SODIUM 40 MG VIAL IVPUSH SCH (09:06)
[2020-11-03] MEDS: LOSARTAN POTASSIUM 50 MG TABLET PO SCH (09:06)
[2020-11-03] MEDS: HEPARIN NA (PORCINE) 5,000 UNITS/ML 1ML VIAL SQ SCH ×2 (09:18→21:03)
[2020-11-03] MEDS: TETRAHYDROZOLINE HCL EYE DROPS OU SCH ×2 (09:18→22:58)
[2020-11-03 09:29] LABS: BASO % 1.3 % (0-2.0); EOS % 3.4 % (0-4.5); HEMATOCRIT 34.7 % (32.4-45.2); HEMOGLOBIN 11.3 GM/dL (10.7-15.3); LYMPH % 28.4 % (8-40); MCH 30.6 pg (25.7-33.7); MCHC 32.5 g/dl (32.0-36.0); MEAN CELL VOLUME 94.2 fl (80-96); MEAN PLT VOLUME 8.4 fl (7.5-11.1); MONO % 13.1 % (3.8-10.2); NEUT % 53.8 % (42.8-82.8); PLATELET COUNT 305 10^3/uL (134-434); RBC 3.69 M/mm3 (3.60-5.2); RDW 17.1 % (11.6-15.6); WHITE BLOOD COUNT 5.7 K/mm3 (4.0-10.0)
[2020-11-03 10:17] LABS: CALCIUM 9.8 mg/dL (8.5-10.1)
[2020-11-03 10:18] LABS: BLOOD UREA NITROGEN 11.2 mg/dL (7-18); MAGNESIUM 2.2 mg/dL (1.8-2.4)
[2020-11-03 10:21] LABS: CREATININE 5.6 mg/dL (0.55-1.3)
[2020-11-03 10:22] LABS: BILIRUBIN,TOTAL 0.4 mg/dL (0.2-1)
[2020-11-03] MEDS: ZINC OXIDE/PANTHENOL/VITAMIN E 56 GM TUBE TP SCH (11:50)
[2020-11-03] MEDS ORDERED: cloNIDine-TTS 0.1 MG/24 HRS PATCH.TDWK TD SCH (13:39)
[2020-11-03 16:08] LABS: ALPHA-1-GLOBULIN,CSF 3.9 % (1.1-6.6); BETA GLOBULIN,CSF 12.3 % (7.3-17.9); GAMMA GLOBULIN,CSF 12.6 % (3.0-13.0); M-SPIKE CSF Not Observed % (Not Observed); PRE-ALBUMIN CSF 1.6 % (2.2-7.1)
[2020-11-03] MEDS ORDERED: SODIUM CHLORIDE 250 ML IV PRN (16:14)
[2020-11-03] MEDS: WATER IVPB SCH (18:32)
[2020-11-03] MEDS: ACYCLOVIR IVPB SCH (18:32)
[2020-11-03] MEDS: DEXTROSE 5% IVPB SCH (18:32)
[2020-11-03] MEDS: PANTOPRAZOLE 40 MG TABLET PO SCH (21:03)
[2020-11-04] MEDS: VANCOMYCIN 250 MG/5 ML ORAL SOLUTION PO SCH ×5 (00:57→23:09)
[2020-11-04] MEDS: NYSTATIN 500,000 UNITS/5 ML SUSPENSION PO SCH ×2 (00:58→05:56)
[2020-11-04] MEDS: ZINC OXIDE/PANTHENOL/VITAMIN E 56 GM TUBE TP SCH ×3 (00:59→22:19)
[2020-11-04] MEDS ORDERED: DEXTROSE 5%-WATER 100 ML IVPB ONE ×2 (03:12→16:56)
[2020-11-04] MEDS: CEFTRIAXONE 2 GM in DEXTROSE 5%-WATER 2 GM/100 ML BAG IVPB SCH ×2 (04:55→17:01)
[2020-11-04] MEDS: INSULIN SLIDING SCALE (NOVOLOG) 1 VIAL SQ SCH ×4 (06:01→22:19)
[2020-11-04] MEDS: LIPASE/PROTEASE/AMYLASE 36,000 UNIT CAPSULE PO SCH ×3 (08:41→18:09)
[2020-11-04] MEDS: CARVEDILOL 25 MG TABLET (FP) PO SCH ×2 (09:48→22:18)
[2020-11-04] MEDS: LOSARTAN POTASSIUM 50 MG TABLET PO SCH (09:48)
[2020-11-04] MEDS: hydrALAZINE HCL 10 MG TABLET PO SCH ×2 (09:48→22:19)
[2020-11-04] MEDS: PANTOPRAZOLE 40 MG TABLET PO SCH ×2 (09:48→22:19)
[2020-11-04] MEDS: ISOSORBIDE MONONITRATE 30 MG TAB.SR.24H (FP) PO SCH (09:48)
[2020-11-04] MEDS: TETRAHYDROZOLINE HCL EYE DROPS OU SCH ×2 (09:50→22:20)
[2020-11-04] MEDS: HEPARIN NA (PORCINE) 5,000 UNITS/ML 1ML VIAL SQ SCH ×2 (09:55→22:19)
[2020-11-04 11:49] LABS: BASO % 1.1 % (0-2.0); EOS % 3.7 % (0-4.5); HEMATOCRIT 33.5 % (32.4-45.2); HEMOGLOBIN 10.9 GM/dL (10.7-15.3); LYMPH % 26.2 % (8-40); MCH 31.1 pg (25.7-33.7); MCHC 32.6 g/dl (32.0-36.0); MEAN CELL VOLUME 95.1 fl (80-96); MEAN PLT VOLUME 8.3 fl (7.5-11.1); MONO % 10.2 % (3.8-10.2); NEUT % 58.8 % (42.8-82.8); PLATELET COUNT 305 10^3/uL (134-434); RBC 3.52 M/mm3 (3.60-5.2); RDW 17.9 % (11.6-15.6); WHITE BLOOD COUNT 5.1 K/mm3 (4.0-10.0)
[2020-11-04 12:13] LABS: BLOOD UREA NITROGEN 18.1 mg/dL (7-18); CALCIUM 9.6 mg/dL (8.5-10.1)
[2020-11-04 12:14] LABS: MAGNESIUM 2.3 mg/dL (1.8-2.4)
[2020-11-04 12:16] LABS: CREATININE 7.3 mg/dL (0.55-1.3)
[2020-11-04 12:18] LABS: BILIRUBIN,TOTAL 0.4 mg/dL (0.2-1); TOT PROT 6.8 g/dl (6.4-8.2)
[2020-11-04] MEDS ORDERED: PT OWN MED DRAWER 7, Y5N ONE ×2 (12:52→22:22)
[2020-11-04] MEDS: CLOTRIMAZOLE 10 MG TROCHE PO SCH ×3 (13:52→22:22)
[2020-11-04] MEDS: ACYCLOVIR IVPB SCH (18:29)
[2020-11-04] MEDS: WATER IVPB SCH (18:29)
[2020-11-04] MEDS: DEXTROSE 5% IVPB SCH (18:29)
[2020-11-05] MEDS ORDERED: DEXTROSE 5%-WATER 100 ML IVPB ONE ×2 (05:14→17:40)
[2020-11-05] MEDS: CEFTRIAXONE 2 GM in DEXTROSE 5%-WATER 2 GM/100 ML BAG IVPB SCH ×2 (05:19→17:59)
[2020-11-05] MEDS: CLOTRIMAZOLE 10 MG TROCHE PO SCH ×5 (05:23→21:49)
[2020-11-05] MEDS: VANCOMYCIN 250 MG/5 ML ORAL SOLUTION PO SCH ×4 (06:13→23:14)
[2020-11-05] MEDS: INSULIN SLIDING SCALE (NOVOLOG) 1 VIAL SQ SCH ×4 (06:14→21:49)
[2020-11-05 08:54] LABS: BASO % 1.5 % (0-2.0); EOS % 2.8 % (0-4.5); HEMATOCRIT 34.3 % (32.4-45.2); HEMOGLOBIN 11.2 GM/dL (10.7-15.3); LYMPH % 26.2 % (8-40); MCH 30.9 pg (25.7-33.7); MCHC 32.6 g/dl (32.0-36.0); MEAN CELL VOLUME 94.8 fl (80-96); MONO % 9.8 % (3.8-10.2); NEUT % 59.7 % (42.8-82.8); PLATELET COUNT 321 10^3/uL (134-434); RBC 3.62 M/mm3 (3.60-5.2); RDW 18.1 % (11.6-15.6)
[2020-11-05 09:21] LABS: CALCIUM 9.4 mg/dL (8.5-10.1)
[2020-11-05 09:22] LABS: BLOOD UREA NITROGEN 10.2 mg/dL (7-18)
[2020-11-05 09:25] LABS: CREATININE 4.8 mg/dL (0.55-1.3)
[2020-11-05 09:26] LABS: BILIRUBIN,TOTAL 0.3 mg/dL (0.2-1)
[2020-11-05 09:27] LABS: TOT PROT 7.1 g/dl (6.4-8.2)
[2020-11-05] MEDS ORDERED: PT OWN MED DRAWER 7, Y5N ONE ×6 (09:50→18:34)
[2020-11-05] MEDS: PANTOPRAZOLE 40 MG TABLET PO SCH ×2 (10:12→21:48)
[2020-11-05] MEDS: LOSARTAN POTASSIUM 50 MG TABLET PO SCH (10:12)
[2020-11-05] MEDS: LIPASE/PROTEASE/AMYLASE 36,000 UNIT CAPSULE PO SCH ×3 (10:12→17:59)
[2020-11-05] MEDS: ISOSORBIDE MONONITRATE 30 MG TAB.SR.24H (FP) PO SCH (10:12)
[2020-11-05] MEDS: hydrALAZINE HCL 10 MG TABLET PO SCH ×2 (10:12→21:48)
[2020-11-05] MEDS: CARVEDILOL 25 MG TABLET (FP) PO SCH ×2 (10:12→21:48)
[2020-11-05] MEDS: TETRAHYDROZOLINE HCL EYE DROPS OU SCH ×2 (10:13→21:50)
[2020-11-05] MEDS: HEPARIN NA (PORCINE) 5,000 UNITS/ML 1ML VIAL SQ SCH ×2 (10:14→21:48)
[2020-11-05] MEDS: ZINC OXIDE/PANTHENOL/VITAMIN E 56 GM TUBE TP SCH ×2 (10:14→21:49)
[2020-11-05] MEDS ORDERED: SODIUM CHLORIDE 250 ML IV PRN (10:54)
[2020-11-05] MEDS ORDERED: EPOETIN ALFA-EPBX 4,000 UNIT/ML VIAL SQ ONE (10:54)
[2020-11-05] MEDS: ACETAMINOPHEN 325 MG TABLET (FP) PO PRN (15:29)
[2020-11-05] MEDS: WATER IVPB SCH (18:57)
[2020-11-05] MEDS: ACYCLOVIR IVPB SCH (18:57)
[2020-11-05] MEDS: DEXTROSE 5% IVPB SCH (18:57)
[2020-11-06] MEDS ORDERED: DEXTROSE 5%-WATER 100 ML IVPB ONE ×2 (03:40→17:01)
[2020-11-06] MEDS: CEFTRIAXONE 2 GM in DEXTROSE 5%-WATER 2 GM/100 ML BAG IVPB SCH ×2 (04:30→17:15)
[2020-11-06] MEDS: VANCOMYCIN 250 MG/5 ML ORAL SOLUTION PO SCH ×3 (06:19→18:05)
[2020-11-06] MEDS: CLOTRIMAZOLE 10 MG TROCHE PO SCH ×5 (06:19→21:25)
[2020-11-06] MEDS: INSULIN SLIDING SCALE (NOVOLOG) 1 VIAL SQ SCH ×4 (06:19→21:36)
[2020-11-06] MEDS ORDERED: PT OWN MED DRAWER 7, Y5N ONE ×5 (09:21→21:28)
[2020-11-06] MEDS: HEPARIN NA (PORCINE) 5,000 UNITS/ML 1ML VIAL SQ SCH ×2 (09:26→21:25)
[2020-11-06] MEDS: CARVEDILOL 25 MG TABLET (FP) PO SCH ×2 (09:28→21:25)
[2020-11-06] MEDS: hydrALAZINE HCL 10 MG TABLET PO SCH ×2 (09:28→21:25)
[2020-11-06] MEDS: LIPASE/PROTEASE/AMYLASE 36,000 UNIT CAPSULE PO SCH ×3 (09:28→17:15)
[2020-11-06] MEDS: LOSARTAN POTASSIUM 50 MG TABLET PO SCH (09:28)
[2020-11-06] MEDS: ISOSORBIDE MONONITRATE 30 MG TAB.SR.24H (FP) PO SCH (09:28)
[2020-11-06] MEDS: TETRAHYDROZOLINE HCL EYE DROPS OU SCH ×2 (09:29→21:29)
[2020-11-06] MEDS: PANTOPRAZOLE 40 MG TABLET PO SCH ×2 (09:29→21:25)
[2020-11-06] MEDS: ZINC OXIDE/PANTHENOL/VITAMIN E 56 GM TUBE TP SCH ×2 (09:31→21:29)
[2020-11-06 09:32] LABS: BASO % 1.1 % (0-2.0); EOS % 3.3 % (0-4.5); HEMATOCRIT 34.9 % (32.4-45.2); HEMOGLOBIN 11.3 GM/dL (10.7-15.3); LYMPH % 29.4 % (8-40); MCHC 32.5 g/dl (32.0-36.0); MEAN CELL VOLUME 95.4 fl (80-96); MEAN PLT VOLUME 8.2 fl (7.5-11.1); MONO % 10.4 % (3.8-10.2); NEUT % 55.8 % (42.8-82.8); PLATELET COUNT 308 10^3/uL (134-434); RBC 3.66 M/mm3 (3.60-5.2); WHITE BLOOD COUNT 5.8 K/mm3 (4.0-10.0)
[2020-11-06 09:50] LABS: CALCIUM 9.6 mg/dL (8.5-10.1)
[2020-11-06 09:51] LABS: BLOOD UREA NITROGEN 15.7 mg/dL (7-18); MAGNESIUM 2.3 mg/dL (1.8-2.4)
[2020-11-06 09:52] LABS: CREATININE 6.4 mg/dL (0.55-1.3)
[2020-11-06 09:55] LABS: BILIRUBIN,TOTAL 0.7 mg/dL (0.2-1)
[2020-11-06] MEDS: DEXTROSE 5% IVPB SCH (18:06)
[2020-11-06] MEDS: WATER IVPB SCH (18:06)
[2020-11-06] MEDS: ACYCLOVIR IVPB SCH (18:06)
[2020-11-06] MEDS: busPIRone HCL 10 MG TABLET (FP) PO SCH (21:25)
[2020-11-07] MEDS ORDERED: PT OWN MED DRAWER 7, Y5N ONE ×3 (06:07→17:44)
[2020-11-07] MEDS: VANCOMYCIN 250 MG/5 ML ORAL SOLUTION PO SCH ×5 (06:11→23:34)
[2020-11-07] MEDS: CLOTRIMAZOLE 10 MG TROCHE PO SCH ×5 (06:11→21:16)
[2020-11-07] MEDS: INSULIN SLIDING SCALE (NOVOLOG) 1 VIAL SQ SCH ×4 (06:13→21:24)
[2020-11-07] MEDS: LOSARTAN POTASSIUM 50 MG TABLET PO SCH ×2 (08:42→09:03)
[2020-11-07] MEDS: hydrALAZINE HCL 10 MG TABLET PO SCH ×2 (08:42→09:03)
[2020-11-07] MEDS: PANTOPRAZOLE 40 MG TABLET PO SCH ×3 (08:42→21:14)
[2020-11-07] MEDS: CARVEDILOL 25 MG TABLET (FP) PO SCH ×3 (08:42→21:15)
[2020-11-07] MEDS: busPIRone HCL 10 MG TABLET (FP) PO SCH ×3 (08:43→21:14)
[2020-11-07] MEDS: HEPARIN NA (PORCINE) 5,000 UNITS/ML 1ML VIAL SQ SCH ×3 (08:43→21:15)
[2020-11-07] MEDS: ISOSORBIDE MONONITRATE 30 MG TAB.SR.24H (FP) PO SCH ×2 (08:43→09:03)
[2020-11-07] MEDS: TETRAHYDROZOLINE HCL EYE DROPS OU SCH ×3 (08:44→21:16)
[2020-11-07] MEDS: ZINC OXIDE/PANTHENOL/VITAMIN E 56 GM TUBE TP SCH ×3 (08:46→21:15)
[2020-11-07] MEDS: LIPASE/PROTEASE/AMYLASE 36,000 UNIT CAPSULE PO SCH ×3 (09:00→17:36)
[2020-11-07] MEDS: DULoxetine HCL 30 MG CAPSULE.DR PO SCH (09:00)
[2020-11-07 09:37] LABS: BASO % 1.1 % (0-2.0); EOS % 2.7 % (0-4.5); HEMATOCRIT 33.5 % (32.4-45.2); HEMOGLOBIN 10.7 GM/dL (10.7-15.3); LYMPH % 29.3 % (8-40); MCH 30.8 pg (25.7-33.7); MEAN PLT VOLUME 8.4 fl (7.5-11.1); MONO % 9.3 % (3.8-10.2); NEUT % 57.6 % (42.8-82.8); PLATELET COUNT 311 10^3/uL (134-434); RBC 3.48 M/mm3 (3.60-5.2); RDW 18.3 % (11.6-15.6); WHITE BLOOD COUNT 5.6 K/mm3 (4.0-10.0)
[2020-11-07 09:57] LABS: CHLORIDE 103 mmol/L (98-107); SODIUM 144 mmol/L (136-145)
[2020-11-07 09:59] LABS: CALCIUM 9.2 mg/dL (8.5-10.1)
[2020-11-07 10:00] LABS: ANION GAP 8 MMOL/L (8-16); BLOOD UREA NITROGEN 12.8 mg/dL (7-18); CO2 34 mmol/L (21-32); MAGNESIUM 2.1 mg/dL (1.8-2.4)
[2020-11-07 10:03] LABS: ALBUMIN 2.9 g/dl (3.4-5.0); CREATININE 4.6 mg/dL (0.55-1.3); SGOT/AST 10 U/L (15-37); SGPT/ALT 10 U/L (13-61)
[2020-11-07 10:04] LABS: BILIRUBIN,TOTAL 0.3 mg/dL (0.2-1)
[2020-11-07 10:05] LABS: ALK PHOS 98 U/L (45-117)
[2020-11-07 10:07] LABS: GLUCOSE,RANDOM 46 mg/dL (74-106)
[2020-11-07] MEDS ORDERED: hydrALAZINE HCL 25 MG TABLET (FP) PO ONE (12:25)
[2020-11-07] MEDS ORDERED: hydrALAZINE HCL 10 MG TABLET PO SCH ×2 (12:27→12:30)
[2020-11-07] MEDS: hydrALAZINE HCL 25 MG TABLET (FP) PO SCH ×2 (13:11→21:14)
[2020-11-08] MEDS: hydrALAZINE HCL 25 MG TABLET (FP) PO SCH ×3 (05:57→21:10)
[2020-11-08] MEDS: CLOTRIMAZOLE 10 MG TROCHE PO SCH ×5 (05:58→23:36)
[2020-11-08] MEDS: VANCOMYCIN 250 MG/5 ML ORAL SOLUTION PO SCH ×4 (05:58→23:33)
[2020-11-08] MEDS: INSULIN SLIDING SCALE (NOVOLOG) 1 VIAL SQ SCH ×4 (06:04→21:40)
[2020-11-08 08:40] LABS: BASO % 2.3 % (0-2.0); EOS % 3.8 % (0-4.5); HEMOGLOBIN 10.4 GM/dL (10.7-15.3); LYMPH % 34.9 % (8-40); MCH 31.4 pg (25.7-33.7); MCHC 32.5 g/dl (32.0-36.0); MEAN CELL VOLUME 96.4 fl (80-96); MEAN PLT VOLUME 8.6 fl (7.5-11.1); MONO % 8.6 % (3.8-10.2); NEUT % 50.4 % (42.8-82.8); PLATELET COUNT 286 10^3/uL (134-434); RBC 3.31 M/mm3 (3.60-5.2); RDW 18.4 % (11.6-15.6); WHITE BLOOD COUNT 4.7 K/mm3 (4.0-10.0)
[2020-11-08 09:03] LABS: BLOOD UREA NITROGEN 20.2 mg/dL (7-18)
[2020-11-08 09:04] LABS: CALCIUM 9.5 mg/dL (8.5-10.1); MAGNESIUM 2.2 mg/dL (1.8-2.4)
[2020-11-08 09:06] LABS: CREATININE 6.1 mg/dL (0.55-1.3)
[2020-11-08 09:07] LABS: BILIRUBIN,TOTAL 0.5 mg/dL (0.2-1)
[2020-11-08 09:08] LABS: TOT PROT 7.1 g/dl (6.4-8.2)
[2020-11-08] MEDS ORDERED: PT OWN MED DRAWER 7, Y5N ONE ×4 (09:21→23:35)
[2020-11-08] MEDS: LOSARTAN POTASSIUM 50 MG TABLET PO SCH (09:44)
[2020-11-08] MEDS: LIPASE/PROTEASE/AMYLASE 36,000 UNIT CAPSULE PO SCH ×3 (09:44→16:31)
[2020-11-08] MEDS: CARVEDILOL 25 MG TABLET (FP) PO SCH ×2 (09:45→21:10)
[2020-11-08] MEDS: PANTOPRAZOLE 40 MG TABLET PO SCH ×2 (09:46→21:10)
[2020-11-08] MEDS: busPIRone HCL 10 MG TABLET (FP) PO SCH ×2 (09:46→21:10)
[2020-11-08] MEDS: ISOSORBIDE MONONITRATE 30 MG TAB.SR.24H (FP) PO SCH (09:46)
[2020-11-08] MEDS: ZINC OXIDE/PANTHENOL/VITAMIN E 56 GM TUBE TP SCH ×2 (09:46→21:11)
[2020-11-08] MEDS: DULoxetine HCL 30 MG CAPSULE.DR PO SCH (09:52)
[2020-11-08] MEDS: TETRAHYDROZOLINE HCL EYE DROPS OU SCH ×2 (09:53→23:33)
[2020-11-08] MEDS: HEPARIN NA (PORCINE) 5,000 UNITS/ML 1ML VIAL SQ SCH ×2 (09:53→21:11)
[2020-11-08] MEDS ORDERED: hydrALAZINE HCL 20 MG/ML VIAL IVPB ONE (17:15)
[2020-11-08] MEDS ORDERED: MELATONIN 5 MG TABLETS PO PRN (20:52)
[2020-11-08] MEDS: ACETAMINOPHEN 325 MG TABLET (FP) PO PRN (23:58)
[2020-11-09] MEDS ORDERED: ONDANSETRON 4 MG/2 ML VIAL IVPUSH ONE (00:17)
[2020-11-09] MEDS: VANCOMYCIN 250 MG/5 ML ORAL SOLUTION PO SCH ×3 (06:01→17:49)
[2020-11-09] MEDS: hydrALAZINE HCL 25 MG TABLET (FP) PO SCH ×2 (06:02→16:40)
[2020-11-09] MEDS: CLOTRIMAZOLE 10 MG TROCHE PO SCH ×4 (06:02→17:49)
[2020-11-09] MEDS: INSULIN SLIDING SCALE (NOVOLOG) 1 VIAL SQ SCH ×3 (06:08→17:44)
[2020-11-09] MEDS ORDERED: PT OWN MED DRAWER 7, Y5N ONE (10:05)
[2020-11-09] MEDS: LIPASE/PROTEASE/AMYLASE 36,000 UNIT CAPSULE PO SCH ×3 (10:08→16:40)
[2020-11-09] MEDS: PANTOPRAZOLE 40 MG TABLET PO SCH (10:09)
[2020-11-09] MEDS: CARVEDILOL 25 MG TABLET (FP) PO SCH (10:09)
[2020-11-09] MEDS: DULoxetine HCL 30 MG CAPSULE.DR PO SCH (10:09)
[2020-11-09] MEDS: LOSARTAN POTASSIUM 50 MG TABLET PO SCH (10:09)
[2020-11-09] MEDS: busPIRone HCL 10 MG TABLET (FP) PO SCH (10:09)
[2020-11-09] MEDS: ISOSORBIDE MONONITRATE 30 MG TAB.SR.24H (FP) PO SCH (10:09)
[2020-11-09] MEDS: HEPARIN NA (PORCINE) 5,000 UNITS/ML 1ML VIAL SQ SCH (10:11)
[2020-11-09] MEDS: ZINC OXIDE/PANTHENOL/VITAMIN E 56 GM TUBE TP SCH (10:11)
[2020-11-09] MEDS: TETRAHYDROZOLINE HCL EYE DROPS OU SCH (10:11)
[2020-11-09 11:28] LABS: BASO % 0.6 % (0-2.0); EOS % 3.5 % (0-4.5); HEMOGLOBIN 11.2 GM/dL (10.7-15.3); LYMPH % 35.8 % (8-40); MCH 30.2 pg (25.7-33.7); MCHC 31.1 g/dl (32.0-36.0); MEAN CELL VOLUME 97.3 fl (80-96); MEAN PLT VOLUME 9.7 fl (7.5-11.1); MONO % 6.4 % (3.8-10.2); NEUT % 53.7 % (42.8-82.8); PLATELET COUNT 230 10^3/uL (134-434); RBC 3.71 M/mm3 (3.60-5.2); RDW 18.5 % (11.6-15.6); WHITE BLOOD COUNT 5.2 K/mm3 (4.0-10.0)
[2020-11-09 11:30] LABS: CHLORIDE 99 mmol/L (98-107); SODIUM 137 mmol/L (136-145)
[2020-11-09 11:36] LABS: CALCIUM 9.9 mg/dL (8.5-10.1)
[2020-11-09 11:37] LABS: ALBUMIN 3.4 g/dl (3.4-5.0); ANION GAP 11 MMOL/L (8-16); BLOOD UREA NITROGEN 35.4 mg/dL (7-18); CO2 26 mmol/L (21-32); GLUCOSE,RANDOM 114 mg/dL (74-106); MAGNESIUM 2.5 mg/dL (1.8-2.4)
[2020-11-09 11:40] LABS: SGOT/AST 18 U/L (15-37)
[2020-11-09 11:41] LABS: ALK PHOS 100 U/L (45-117); BILIRUBIN,TOTAL 0.4 mg/dL (0.2-1); TOT PROT 7.7 g/dl (6.4-8.2)
[2020-11-09 11:42] LABS: SGPT/ALT 15 U/L (13-61)
[2020-11-09 11:49] LABS: CREATININE 7.6 mg/dL (0.55-1.3)
[2020-11-09 18:09] VITALS: BP 182/72; PULSE 64; TEMP 98.5
== END 2020-11-09 19:02 | disposition home health service (06) | DRG 871 ==
LOC: JER 13:20 → JERBED 22:12 → JICU 23:54 → J5S 10-30 20:50
PROVIDERS: ADMIT Internal Medicine Pulmonary Disease; ATTEND Nurse Practitioner Acute Care
PROC: 0CHY7BZ Insertion of Airway into Mouth and Throat, Via Natural or Artificial Opening (ICD-10-PCS; principal; 2020-10-24)
PROC: 5A1945Z Respiratory Ventilation, 24-96 Consecutive Hours (ICD-10-PCS; 2020-10-24)
PROC: 009U3ZZ Drainage of Spinal Canal, Percutaneous Approach (ICD-10-PCS; 2020-10-24)
PROC: 5A1D70Z Performance of Urinary Filtration, Intermittent, Less than 6 Hours Per Day (ICD-10-PCS; 2020-11-04)
PROC: 5A1D70Z Performance of Urinary Filtration, Intermittent, Less than 6 Hours Per Day (ICD-10-PCS; 2020-11-06)
PROC: 5A1D70Z Performance of Urinary Filtration, Intermittent, Less than 6 Hours Per Day (ICD-10-PCS; 2020-11-09)
DX: A41.89 Other specified sepsis (principal); E11.00 Type 2 diabetes mellitus with hyperosmolarity without nonketotic hyperglycemic-hyperosmolar coma (NKHHC); N18.6 End stage renal disease; G93.41 Metabolic encephalopathy; A39.81 Meningococcal encephalitis; I13.2 Hypertensive heart and chronic kidney disease with heart failure and with stage 5 chronic kidney disease, or end stage renal disease; I50.32 Chronic diastolic (congestive) heart failure; A04.72 Enterocolitis due to Clostridium difficile, not specified as recurrent; N39.0 Urinary tract infection, site not specified; I24.8 Other forms of acute ischemic heart disease; R00.0 Tachycardia, unspecified; K21.9 Gastro-esophageal reflux disease without esophagitis; R50.9 Fever, unspecified; E78.5 Hyperlipidemia, unspecified; F41.8 Other specified anxiety disorders; F39 Unspecified mood [affective] disorder; R19.5 Other fecal abnormalities; E11.22 Type 2 diabetes mellitus with diabetic chronic kidney disease; K59.09 Other constipation; Z99.2 Dependence on renal dialysis; E11.43 Type 2 diabetes mellitus with diabetic autonomic (poly)neuropathy; K31.84 Gastroparesis; E27.8 Other specified disorders of adrenal gland; N20.0 Calculus of kidney; R25.9 Unspecified abnormal involuntary movements; E11.42 Type 2 diabetes mellitus with diabetic polyneuropathy; E11.65 Type 2 diabetes mellitus with hyperglycemia; I80.8 Phlebitis and thrombophlebitis of other sites; Z89.422 Acquired absence of other left toe(s)
CPT/HCPCS: 20550; 31500; 36415; 36600; 70450-TC; 70470-TC; 71045-TC-FY; 71275-TC; 74018-TC-FY; 74177-TC; 74230-TC-FY; 76604-TC; 76942; 80048; 80053; 80076; 80307; 81003; 82010; 82140; 82272; 82550; 82693; 82728; 82803; 82945; 82962; 83036; 83605; 83735; 83880; 84100; 84157; 84166; 84436; 84439; 84443; 84484; 84540; 85025; 85027; 85384; 85610; 85651; 85730; 86022; 86140; 86592; 86617; 86618; 86694; 86735; 86738; 86765; 86777; 86780; 86787; 86788; 86789; 86790; 86803; 86850; 86900; 86901; 87040; 87070; 87086; 87102; 87116; 87186; 87205; 87206; 87210; 87252; 87324; 87340; 87389; 87449; 87529; 87899; 92611-GN; 93005; 93010; 93970-TC; 94002; 95816; 97116-GP; 97162-GP; 99291; 99292; C9803; G0463-25; G0480; J0131; J1644; Q5106; Q9967; U0003; U0005

== ENCOUNTER 2021-01-08 19:20 | Inpatient (IN) | payer OTHER ==
[2021-01-08] MEDS ORDERED: METOCLOPRAMIDE HCL INJECTION 10 MG/2 ML VIAL IVPUSH ONE (20:28)
[2021-01-08] MEDS ORDERED: ACETAMINOPHEN 1000 MG/100 ML VIAL (NON FORMULARY) IVPB ONE (20:28)
[2021-01-08] MEDS ORDERED: FAMOTIDINE 20 MG/50 ML IVPB 20 MG/50 ML MG IVPB ONE ×2 (20:28→21:14)
[2021-01-08] MEDS ORDERED: ALBUTEROL SO4 HFA INHALER IH ONE ×2 (20:55→20:57)
[2021-01-08] MEDS ORDERED: METOCLOPRAMIDE HCL INJECTION 10 MG/2 ML VIAL ONE (21:14)
[2021-01-08] MEDS ORDERED: ACETAMINOPHEN INJECTION 100 ML IVPB ONE (21:14)
[2021-01-08 21:23] LABS: BASO % 0.8 % (0-2.0); EOS % 0.3 % (0-4.5); HEMOGLOBIN 7.9 GM/dL (10.7-15.3); LYMPH % 12.6 % (8-40); MCHC 34.4 g/dl (32.0-36.0); MEAN CELL VOLUME 93.1 fl (80-96); MEAN PLT VOLUME 8.6 fl (7.5-11.1); MONO % 5.7 % (3.8-10.2); NEUT % 80.6 % (42.8-82.8); PLATELET COUNT 171 10^3/uL (134-434); RBC 2.47 M/mm3 (3.60-5.2); RDW 16.3 % (11.6-15.6); WHITE BLOOD COUNT 5.3 K/mm3 (4.0-10.0)
[2021-01-08] MEDS ORDERED: MAG HYDROX/AL HYDROX/SIMETH -MYLANTA- ORAL SUSPENSION PO ONE (21:32)
[2021-01-08] MEDS ORDERED: MAG HYDROX/AL HYDROX/SIMETH 30 ML UNIT-DOSE CUP ONE (21:39)
[2021-01-08 21:41] LABS: ALBUMIN 3.9 g/dl (3.4-5.0); CALCIUM 10.6 mg/dL (8.5-10.1)
[2021-01-08 21:42] LABS: BLOOD UREA NITROGEN 40.6 mg/dL (7-18)
[2021-01-08 21:45] LABS: CREATININE 5.6 mg/dL (0.55-1.3)
[2021-01-08 21:46] LABS: BILIRUBIN,TOTAL 0.5 mg/dL (0.2-1); TOT PROT 8.4 g/dl (6.4-8.2)
[2021-01-08] MEDS ORDERED: diazePAM 5 MG TABLET PO ONE (23:58)
[2021-01-09] MEDS ORDERED: diazePAM 5 MG TABLET ONE (00:11)
[2021-01-09] MEDS ORDERED: MIDAZOLAM HCL 5 MG/1 ML Single Dose Vial IM ONE (01:02)
[2021-01-09] MEDS ORDERED: MIDAZOLAM HCL 2 MG/2 ML SINGLE DOSE VIAL ONE (01:13)
[2021-01-09] MEDS ORDERED: ALPRAZolam 0.25 MG TABLET PO PRN (03:30)
[2021-01-09] MEDS ORDERED: PROCHLORPERAZINE INJECTION 10 MG/2 ML VIAL IVPB PRN (03:42)
[2021-01-09] MEDS ORDERED: MAG HYDROX/AL HYDROX/SIMETH 30 ML UNIT-DOSE CUP PO PRN (03:43)
[2021-01-09] MEDS: ACETAMINOPHEN 1000 MG/100 ML VIAL (NON FORMULARY) IVPB SCH ×4 (04:44→23:10)
[2021-01-09] MEDS ORDERED: LABETALOL HCL 5 MG/1 ML (100MG/20 ML VIAL) IVPUSH PRN (06:51)
[2021-01-09] MEDS ORDERED: LACTATED RINGERS SOLUTION 1,000 ML/1,000 ML INFUS.BAG IV SCH (07:00)
[2021-01-09 07:17] LABS: EOS % 0.7 % (0-4.5); HEMATOCRIT 23.1 % (32.4-45.2); HEMOGLOBIN 7.9 GM/dL (10.7-15.3); LYMPH % 19.4 % (8-40); MCH 31.8 pg (25.7-33.7); MEAN CELL VOLUME 93.6 fl (80-96); MEAN PLT VOLUME 8.9 fl (7.5-11.1); NEUT % 69.9 % (42.8-82.8); PLATELET COUNT 165 10^3/uL (134-434); RBC 2.47 M/mm3 (3.60-5.2); RDW 16.3 % (11.6-15.6); WHITE BLOOD COUNT 5.6 K/mm3 (4.0-10.0)
[2021-01-09 07:34] LABS: CALCIUM 9.9 mg/dL (8.5-10.1)
[2021-01-09 07:35] LABS: ALBUMIN 3.7 g/dl (3.4-5.0); BLOOD UREA NITROGEN 46.5 mg/dL (7-18); MAGNESIUM 3.1 mg/dL (1.8-2.4)
[2021-01-09 07:38] LABS: CREATININE 6.2 mg/dL (0.55-1.3); PHOSPHOROUS 4.8 mg/dL (2.5-4.9)
[2021-01-09 07:39] LABS: BILIRUBIN,TOTAL 0.5 mg/dL (0.2-1); TOT PROT 7.8 g/dl (6.4-8.2)
[2021-01-09] MEDS ORDERED: PANTOPRAZOLE SODIUM 40 MG VIAL IVPUSH SCH (10:00)
[2021-01-09] MEDS ORDERED: LORazepam 1 MG TABLET PO ONE ×2 (11:01→20:09)
[2021-01-09] MEDS: HEPARIN NA (PORCINE) 5,000 UNITS/ML 1ML VIAL SQ SCH ×3 (11:04→21:01)
[2021-01-09] MEDS ORDERED: SODIUM CHLORIDE 250 ML IV PRN (11:08)
[2021-01-09] MEDS: DULoxetine HCL 30 MG CAPSULE.DR PO SCH (11:10)
[2021-01-09] MEDS: CARVEDILOL 25 MG TABLET (FP) PO SCH ×2 (11:10→21:01)
[2021-01-09] MEDS: ISOSORBIDE MONONITRATE 30 MG TAB.SR.24H (FP) PO SCH (11:10)
[2021-01-09] MEDS: PANTOPRAZOLE 40 MG TABLET PO SCH ×2 (11:10→21:01)
[2021-01-09] MEDS: hydrALAZINE HCL 50 MG TABLET (FP) PO SCH ×2 (11:11→21:01)
[2021-01-09] MEDS: LOSARTAN POTASSIUM 50 MG TABLET PO SCH (11:12)
[2021-01-09 11:30] VITALS: BMI 27.0
[2021-01-09] MEDS: INSULIN SLIDING SCALE (NOVOLOG) 1 VIAL SQ SCH ×3 (11:39→21:00)
[2021-01-09] MEDS ORDERED: INSULIN (NOVOLOG) ASPART 100 UNITS/ML 10ML VIAL ONE (11:39)
[2021-01-09] MEDS ORDERED: cloNIDine-TTS 0.2 MG/24 HOURS PATCH.TDWK TD SCH (13:30)
[2021-01-09] MEDS ORDERED: ALBUTEROL SO4 0.5 % INH SOLN 2.5 MG/0.5 ML VIAL.NEB. NEB PRN (17:22)
[2021-01-09] MEDS: LIPASE/PROTEASE/AMYLASE 36,000 UNIT CAPSULE PO SCH (17:45)
[2021-01-10] MEDS: ACETAMINOPHEN 1000 MG/100 ML VIAL (NON FORMULARY) IVPB SCH ×2 (03:51→09:38)
[2021-01-10] MEDS: hydrALAZINE HCL 50 MG TABLET (FP) PO SCH ×2 (05:58→13:29)
[2021-01-10] MEDS: HEPARIN NA (PORCINE) 5,000 UNITS/ML 1ML VIAL SQ SCH ×2 (06:02→15:00)
[2021-01-10] MEDS: INSULIN SLIDING SCALE (NOVOLOG) 1 VIAL SQ SCH ×3 (06:15→12:30)
[2021-01-10] MEDS ORDERED: PT OWN MED DRAWER 7, Y5N ONE (09:28)
[2021-01-10] MEDS: LIPASE/PROTEASE/AMYLASE 36,000 UNIT CAPSULE PO SCH (09:38)
[2021-01-10] MEDS: PANTOPRAZOLE 40 MG TABLET PO SCH (09:38)
[2021-01-10] MEDS: LOSARTAN POTASSIUM 50 MG TABLET PO SCH (09:38)
[2021-01-10] MEDS: CARVEDILOL 25 MG TABLET (FP) PO SCH (09:38)
[2021-01-10] MEDS: DULoxetine HCL 30 MG CAPSULE.DR PO SCH (09:39)
[2021-01-10] MEDS: ISOSORBIDE MONONITRATE 30 MG TAB.SR.24H (FP) PO SCH (09:39)
[2021-01-10] MEDS ORDERED: ONDANSETRON 4 MG/2 ML VIAL ONE (13:32)
[2021-01-10] MEDS ORDERED: SODIUM CHLORIDE 250 ML IV PRN (14:28)
[2021-01-10] MEDS ORDERED: ONDANSETRON 4 MG/2 ML VIAL IVPB ONE (14:30)
[2021-01-10 15:03] LABS: BASO % 1.4 % (0-2.0); EOS % 0.8 % (0-4.5); HEMATOCRIT 25.6 % (32.4-45.2); HEMOGLOBIN 8.9 GM/dL (10.7-15.3); LYMPH % 15.1 % (8-40); MCH 32.6 pg (25.7-33.7); MCHC 34.9 g/dl (32.0-36.0); MEAN CELL VOLUME 93.6 fl (80-96); MEAN PLT VOLUME 9.9 fl (7.5-11.1); MONO % 6.3 % (3.8-10.2); NEUT % 76.4 % (42.8-82.8); PLATELET COUNT 159 10^3/uL (134-434); RBC 2.73 M/mm3 (3.60-5.2); RDW 16.5 % (11.6-15.6); WHITE BLOOD COUNT 5.2 K/mm3 (4.0-10.0)
[2021-01-10 15:22] LABS: ALBUMIN 3.6 g/dl (3.4-5.0); BLOOD UREA NITROGEN 32.5 mg/dL (7-18); CALCIUM 9.6 mg/dL (8.5-10.1)
[2021-01-10 15:27] VITALS: BP 197/90; PULSE 65; TEMP 98.4
[2021-01-10 15:27] LABS: BILIRUBIN,TOTAL 0.7 mg/dL (0.2-1); TOT PROT 7.6 g/dl (6.4-8.2)
[2021-01-11] MEDS ORDERED: HEPARIN NA (PORCINE) 5,000 UNITS/ML 1ML VIAL IVPUSH ONE (14:28)
[2021-01-11] MEDS ORDERED: EPOETIN ALFA-EPBX 10,000 UNIT/ML VIAL SQ ONE (14:28)
== END 2021-01-10 17:46 | disposition home or self-care (01) | DRG 73 ==
LOC: JER 19:20 → JERBED 01-09 03:24 → J6S 01-09 10:25
PROVIDERS: ADMIT Internal Medicine; ATTEND Internal Medicine
PROC: 5A1D70Z Performance of Urinary Filtration, Intermittent, Less than 6 Hours Per Day (ICD-10-PCS; principal; 2021-01-09)
DX: E11.43 Type 2 diabetes mellitus with diabetic autonomic (poly)neuropathy (principal); N18.6 End stage renal disease; I13.2 Hypertensive heart and chronic kidney disease with heart failure and with stage 5 chronic kidney disease, or end stage renal disease; I50.32 Chronic diastolic (congestive) heart failure; I24.8 Other forms of acute ischemic heart disease; K31.84 Gastroparesis; E11.22 Type 2 diabetes mellitus with diabetic chronic kidney disease; K21.9 Gastro-esophageal reflux disease without esophagitis; E78.5 Hyperlipidemia, unspecified; F41.8 Other specified anxiety disorders; K59.09 Other constipation; E11.42 Type 2 diabetes mellitus with diabetic polyneuropathy; I16.0 Hypertensive urgency; D63.1 Anemia in chronic kidney disease; H90.5 Unspecified sensorineural hearing loss; Z99.2 Dependence on renal dialysis; Z89.422 Acquired absence of other left toe(s)
CPT/HCPCS: 36415; 36430; 36511; 71046-TC-FY; 74176-TC; 80048; 80053; 82272; 82962; 83605; 83690; 83735; 84100; 84484; 85025; 86803; 86850; 86900; 86901; 86922; 87340; 93005; 93010; 99285-25; C9803; J0131; P9038; P9058; U0003; U0005

== ENCOUNTER 2021-02-05 04:35 | Day surgery (SDC) | payer OTHER ==
[2021-02-01 12:58] VITALS: BMI 24.8
[2021-02-05] MEDS ORDERED: KETAMINE HCL 200 MG/20 ML VIAL ONE (07:12)
[2021-02-05] MEDS ORDERED: DEXTROSE 5%-LACTATED RINGERS 1,000 ML IV SCH (08:30)
[2021-02-05 09:02] LABS: BASO % 1.3 % (0-2.0); EOS % 2.1 % (0-4.5); HEMATOCRIT 23.8 % (32.4-45.2); HEMOGLOBIN 8.2 GM/dL (10.7-15.3); LYMPH % 27.3 % (8-40); MCH 32.6 pg (25.7-33.7); MCHC 34.3 g/dl (32.0-36.0); MEAN CELL VOLUME 94.9 fl (80-96); MEAN PLT VOLUME 9.2 fl (7.5-11.1); MONO % 14.2 % (3.8-10.2); NEUT % 55.1 % (42.8-82.8); PLATELET COUNT 200 10^3/uL (134-434); RBC 2.51 M/mm3 (3.60-5.2); RDW 16.8 % (11.6-15.6); WHITE BLOOD COUNT 4.1 K/mm3 (4.0-10.0)
[2021-02-05 09:31] LABS: CALCIUM 9.3 mg/dL (8.5-10.1)
[2021-02-05 09:32] LABS: BLOOD UREA NITROGEN 45.3 mg/dL (7-18)
[2021-02-05 09:35] LABS: CREATININE 6.5 mg/dL (0.55-1.3)
[2021-02-05 11:19] VITALS: TEMP 96.9
[2021-02-05 12:07] VITALS: BP 160/67; PULSE 64
== END 2021-02-05 12:30 | disposition home or self-care (01) ==
LOC: JASU-ENDO 04:35
PROVIDERS: ATTEND Internal Medicine Gastroenterology
PROC: 0DB98ZX Excision of Duodenum, Via Natural or Artificial Opening Endoscopic, Diagnostic (ICD-10-PCS; 2021-02-05)
PROC: 0DB68ZX Excision of Stomach, Via Natural or Artificial Opening Endoscopic, Diagnostic (ICD-10-PCS; 2021-02-05)
PROC: 0DB48ZX Excision of Esophagogastric Junction, Via Natural or Artificial Opening Endoscopic, Diagnostic (ICD-10-PCS; 2021-02-05)
PROC: 0DJD8ZZ Inspection of Lower Intestinal Tract, Via Natural or Artificial Opening Endoscopic (ICD-10-PCS; principal; 2021-02-05 10:38)
DX: Z12.11 Encounter for screening for malignant neoplasm of colon (principal); Z86.010 Personal history of colon polyps; D50.9 Iron deficiency anemia, unspecified; K22.10 Ulcer of esophagus without bleeding; K44.9 Diaphragmatic hernia without obstruction or gangrene; K29.50 Unspecified chronic gastritis without bleeding; E11.9 Type 2 diabetes mellitus without complications
CPT/HCPCS: 43239; G0105; 36415; 80048; 82962; 85025; 88305-TC; 88342-TC

== ENCOUNTER 2021-02-19 20:25 | Inpatient (IN) | payer OTHER ==
[2021-02-19] MEDS ORDERED: ALBUTEROL SO4 2.5/IPRATROPIUM 0.5 INH SOL 3 ML VIAL.NEB. NEB ONE ×2 (20:53→21:07)
[2021-02-19] MEDS ORDERED: DEXAMETHASONE SOD PHOSPHATE 10 MG/1 ML VIAL IVPUSH ONE (20:53)
[2021-02-19] MEDS ORDERED: DEXAMETHASONE SOD PHOSPHATE 10 MG/1 ML VIAL ONE (21:07)
[2021-02-19 22:17] LABS: VENOUS BASE EXCESS 6.8 mmol/L (-2-2); VENOUS O2 SATURATION 61.9 % (70-80); VENOUS PCO2 44.1 mmHg (38-52); VENOUS PH 7.468 (7.310-7.410)
[2021-02-19 22:32] LABS: BASO % 1.3 % (0-2.0); EOS % 0.3 % (0-4.5); HEMATOCRIT 24.1 % (32.4-45.2); HEMOGLOBIN 8.3 GM/dL (10.7-15.3); LYMPH % 12.8 % (8-40); MCH 32.3 pg (25.7-33.7); MCHC 34.4 g/dl (32.0-36.0); MEAN PLT VOLUME 8.3 fl (7.5-11.1); MONO % 7.6 % (3.8-10.2); PLATELET COUNT 173 10^3/uL (134-434); RBC 2.57 M/mm3 (3.60-5.2); RDW 16.2 % (11.6-15.6); WHITE BLOOD COUNT 4.9 K/mm3 (4.0-10.0)
[2021-02-19 22:44] LABS: BLOOD UREA NITROGEN 37.8 mg/dL (7-18); CALCIUM 9.6 mg/dL (8.5-10.1)
[2021-02-19 22:48] LABS: CREATININE 6.6 mg/dL (0.55-1.3)
[2021-02-19 22:49] LABS: BILIRUBIN,TOTAL 0.6 mg/dL (0.2-1); TOT PROT 8.3 g/dl (6.4-8.2)
[2021-02-19] MEDS ORDERED: hydrALAZINE HCL 20 MG/ML VIAL IVPUSH ONE (23:20)
[2021-02-19] MEDS ORDERED: hydrALAZINE HCL 20 MG/ML VIAL ONE (23:29)
[2021-02-19 23:31] LABS: ERYTHROCYTE SEDIMENTATION RATE 112 mm/hr (0-30)
[2021-02-19] MEDS ORDERED: VANCOMYCIN 1,000 MG in DEXTROSE 5%-WATER - 250 ML IVPB ONE (23:50)
[2021-02-19] MEDS ORDERED: CEFTRIAXONE 1 GM in DEXTROSE 5%-WATER - 100 ML IVPB ONE (23:50)
[2021-02-20] MEDS ORDERED: CEFTRIAXONE 1 GM/50 ML BAG ONE (00:56)
[2021-02-20] MEDS ORDERED: VANCOMYCIN 1 GRAM (PRE-DOCKED) 1,000 MG/250 ML BAG IVPB ONE (00:56)
[2021-02-20] MEDS ORDERED: FUROSEMIDE 40 MG/4 ML INJECTABLE VIAL IVPUSH ONE ×2 (02:26)
[2021-02-20] MEDS: ALBUTEROL SO4 2.5/IPRATROPIUM 0.5 INH SOL 3 ML VIAL.NEB. NEB SCH ×5 (02:46→20:10)
[2021-02-20] MEDS: methylPREDNISolone NA SUCC 40 MG/1 ML VIAL IVPUSH SCH ×2 (03:10→10:45)
[2021-02-20] MEDS: HEPARIN NA (PORCINE) 5,000 UNITS/ML 1ML VIAL SQ SCH ×4 (03:10→22:36)
[2021-02-20] MEDS: INSULIN SLIDING SCALE (NOVOLOG) 1 VIAL SQ SCH ×4 (07:02→22:36)
[2021-02-20] MEDS: LIPASE/PROTEASE/AMYLASE 36,000 UNIT CAPSULE PO SCH ×3 (08:00→18:10)
[2021-02-20 08:13] VITALS: BMI 25.9
[2021-02-20] MEDS ORDERED: SODIUM CHLORIDE 250 ML IV PRN ×2 (09:54→09:55)
[2021-02-20] MEDS ORDERED: PATIENT'S OWN MEDICATION (NON-FORMULARY) (Losartan Potassium [Cozaar] 100 MG Tablet) PO SCH (10:00)
[2021-02-20] MEDS ORDERED: LOSARTAN POTASSIUM 100 MG TABLET PO SCH (10:00)
[2021-02-20] MEDS ORDERED: methylPREDNISolone NA SUCC 40 MG/1 ML VIAL IVPUSH SCH (10:00)
[2021-02-20] MEDS ORDERED: VANCOMYCIN 1 GM in D5W (PRE-DOCKED) 1,000 MG/250 ML IVPB SCH (10:00)
[2021-02-20] MEDS ORDERED: ISOSORBIDE MONONITRATE 30 MG TAB.SR.24H (FP) PO SCH (10:00)
[2021-02-20] MEDS ORDERED: PIPERACILLIN/TAZOB 2.25 GM 2.25 GM in DEXTROSE 5%-WATER - 50 ML IVPB SCH (10:00)
[2021-02-20] MEDS ORDERED: PATIENT'S OWN MEDICATION (NON-FORMULARY) (Nifedipine [Nifedipine Er] 60 MG Tab.Er.24) PO SCH (10:00)
[2021-02-20 10:18] LABS: BASO % 0.4 % (0-2.0); HEMATOCRIT 23.7 % (32.4-45.2); HEMOGLOBIN 8.2 GM/dL (10.7-15.3); LYMPH % 19.6 % (8-40); MCH 32.5 pg (25.7-33.7); MCHC 34.7 g/dl (32.0-36.0); MEAN CELL VOLUME 93.6 fl (80-96); MEAN PLT VOLUME 8.5 fl (7.5-11.1); MONO % 3.6 % (3.8-10.2); NEUT % 76.4 % (42.8-82.8); PLATELET COUNT 169 10^3/uL (134-434); RBC 2.53 M/mm3 (3.60-5.2); RDW 16.2 % (11.6-15.6); WHITE BLOOD COUNT 3.8 K/mm3 (4.0-10.0)
[2021-02-20 10:34] LABS: ALBUMIN 3.6 g/dl (3.4-5.0); BLOOD UREA NITROGEN 46.6 mg/dL (7-18); CALCIUM 9.2 mg/dL (8.5-10.1)
[2021-02-20 10:38] LABS: CREATININE 7.3 mg/dL (0.55-1.3); PHOSPHOROUS 3.7 mg/dL (2.5-4.9); TOT PROT 7.9 g/dl (6.4-8.2)
[2021-02-20 10:39] LABS: BILIRUBIN,TOTAL 0.5 mg/dL (0.2-1)
[2021-02-20] MEDS ORDERED: EPOETIN ALFA-EPBX 10,000 UNIT/ML VIAL IVPUSH ONE (11:30)
[2021-02-20] MEDS ORDERED: PIPERACILLIN/TAZOBACTAM 2.25 GM VIAL IVPB ONE (16:24)
[2021-02-20] MEDS ORDERED: DEXTROSE 5%-WATER - 50 ML IVPB ONE (16:24)
[2021-02-20] MEDS: hydrALAZINE HCL 50 MG TABLET (FP) PO SCH ×2 (17:05→22:36)
[2021-02-20] MEDS: PIPERACILLIN/TAZOB 2.25 GM 2.25 GM in DEXTROSE 5%-WATER - 50 ML IVPB SCH (17:06)
[2021-02-20] MEDS: NIFEdipine E.R 60 MG TABLET PO SCH (17:06)
[2021-02-20] MEDS: PANTOPRAZOLE 40 MG TABLET PO SCH (17:08)
[2021-02-20] MEDS: ISOSORBIDE MONONITRATE 30 MG TAB.SR.24H (FP) PO SCH (17:09)
[2021-02-20] MEDS: INSULIN (LEVEMIR) 100 UNITS/ML UNITS SQ SCH (22:35)
[2021-02-20] MEDS: MELATONIN 5 MG TABLETS PO PRN (22:48)
[2021-02-21] MEDS ORDERED: ACETAMINOPHEN 325 MG TABLET (FP) PO PRN (00:06)
[2021-02-21] MEDS: ALBUTEROL SO4 2.5/IPRATROPIUM 0.5 INH SOL 3 ML VIAL.NEB. NEB SCH ×4 (00:32→20:10)
[2021-02-21] MEDS ORDERED: PIPERACILLIN/TAZOBACTAM 2.25 GM VIAL IVPB ONE ×2 (00:40→09:28)
[2021-02-21] MEDS ORDERED: DEXTROSE 5%-WATER - 50 ML IVPB ONE ×2 (00:41→09:28)
[2021-02-21] MEDS: PIPERACILLIN/TAZOB 2.25 GM 2.25 GM in DEXTROSE 5%-WATER - 50 ML IVPB SCH (01:36)
[2021-02-21] MEDS ORDERED: VANCOMYCIN 1 GM in D5W (PRE-DOCKED) 1,000 MG/250 ML IVPB SCH (02:00)
[2021-02-21] MEDS: hydrALAZINE HCL 50 MG TABLET (FP) PO SCH ×3 (06:12→21:08)
[2021-02-21] MEDS: HEPARIN NA (PORCINE) 5,000 UNITS/ML 1ML VIAL SQ SCH ×3 (06:12→21:08)
[2021-02-21] MEDS: INSULIN SLIDING SCALE (NOVOLOG) 1 VIAL SQ SCH ×4 (06:13→21:09)
[2021-02-21] MEDS: methylPREDNISolone NA SUCC 40 MG/1 ML VIAL IVPUSH SCH ×2 (10:24→21:13)
[2021-02-21] MEDS: ISOSORBIDE MONONITRATE 30 MG TAB.SR.24H (FP) PO SCH (10:24)
[2021-02-21] MEDS: NIFEdipine E.R 60 MG TABLET PO SCH (10:24)
[2021-02-21] MEDS: PANTOPRAZOLE 40 MG TABLET PO SCH (10:24)
[2021-02-21] MEDS: LOSARTAN POTASSIUM 50 MG TABLET PO SCH (10:25)
[2021-02-21] MEDS: LIPASE/PROTEASE/AMYLASE 36,000 UNIT CAPSULE PO SCH ×3 (10:25→17:01)
[2021-02-21] MEDS ORDERED: INSULIN (NOVOLOG) ASPART 100 UNITS/ML 10ML VIAL ONE ×2 (11:00→20:39)
[2021-02-21] MEDS ORDERED: cloNIDine-TTS 0.2 MG/24 HOURS PATCH.TDWK TD SCH (11:00)
[2021-02-21] MEDS: BACITRACIN 15 GM TUBE TOPICAL OINTMENT TP SCH ×2 (11:07→21:09)
[2021-02-21] MEDS: DULoxetine HCL 30 MG CAPSULE.DR PO SCH (11:07)
[2021-02-21] MEDS: DOXYCYCLINE HYCLATE 100 MG CAPSULE PO SCH ×2 (11:07→17:10)
[2021-02-21] MEDS ORDERED: traZODone HCL 50 MG TABLET (FP) PO PRN (12:27)
[2021-02-21] MEDS ORDERED: SODIUM CHLORIDE 250 ML IV PRN (13:03)
[2021-02-21] MEDS ORDERED: ALBUTEROL SO4 HFA INHALER IH ONE (14:28)
[2021-02-21] MEDS: busPIRone HCL 10 MG TABLET (FP) PO SCH (21:09)
[2021-02-21] MEDS: MELATONIN 5 MG TABLETS PO PRN (21:09)
[2021-02-21] MEDS: INSULIN (LEVEMIR) 100 UNITS/ML UNITS SQ SCH (21:10)
[2021-02-22] MEDS: ALBUTEROL SO4 2.5/IPRATROPIUM 0.5 INH SOL 3 ML VIAL.NEB. NEB SCH ×6 (04:00→20:10)
[2021-02-22] MEDS: INSULIN SLIDING SCALE (NOVOLOG) 1 VIAL SQ SCH ×4 (06:34→22:22)
[2021-02-22] MEDS: hydrALAZINE HCL 50 MG TABLET (FP) PO SCH ×3 (06:34→22:21)
[2021-02-22] MEDS: HEPARIN NA (PORCINE) 5,000 UNITS/ML 1ML VIAL SQ SCH ×3 (06:35→22:21)
[2021-02-22] MEDS ORDERED: PT OWN MED DRAWER 7, Y5N ONE (08:04)
[2021-02-22] MEDS: LIPASE/PROTEASE/AMYLASE 36,000 UNIT CAPSULE PO SCH ×3 (08:32→18:11)
[2021-02-22] MEDS ORDERED: EPOETIN ALFA-EPBX 10,000 UNIT/ML VIAL IVPUSH ONE (09:15)
[2021-02-22 10:28] LABS: HEMATOCRIT 24.3 % (32.4-45.2); HEMOGLOBIN 8.3 GM/dL (10.7-15.3); MCH 32.7 pg (25.7-33.7); MEAN CELL VOLUME 96.1 fl (80-96); MEAN PLT VOLUME 8.9 fl (7.5-11.1); PLATELET COUNT 230 10^3/uL (134-434); RBC 2.53 M/mm3 (3.60-5.2); RDW 16.4 % (11.6-15.6); WHITE BLOOD COUNT 5.7 K/mm3 (4.0-10.0)
[2021-02-22 10:45] LABS: CALCIUM 9.3 mg/dL (8.5-10.1)
[2021-02-22 10:46] LABS: BLOOD UREA NITROGEN 57.5 mg/dL (7-18)
[2021-02-22 10:49] LABS: CREATININE 6.1 mg/dL (0.55-1.3); PHOSPHOROUS 3.3 mg/dL (2.5-4.9)
[2021-02-22] MEDS: LOSARTAN POTASSIUM 50 MG TABLET PO SCH (11:44)
[2021-02-22] MEDS: NIFEdipine E.R 60 MG TABLET PO SCH (11:44)
[2021-02-22] MEDS: ISOSORBIDE MONONITRATE 30 MG TAB.SR.24H (FP) PO SCH (11:44)
[2021-02-22] MEDS: predniSONE 20 MG TABLET (UD) PO SCH (14:09)
[2021-02-22] MEDS: DULoxetine HCL 30 MG CAPSULE.DR PO SCH (14:09)
[2021-02-22] MEDS: DOXYCYCLINE HYCLATE 100 MG CAPSULE PO SCH ×2 (14:09→18:18)
[2021-02-22] MEDS: PANTOPRAZOLE 40 MG TABLET PO SCH (14:09)
[2021-02-22] MEDS: busPIRone HCL 10 MG TABLET (FP) PO SCH ×2 (14:10→22:32)
[2021-02-22] MEDS: BACITRACIN 15 GM TUBE TOPICAL OINTMENT TP SCH ×2 (18:05→22:21)
[2021-02-22] MEDS ORDERED: DOCUSATE SODIUM 100 MG CAPSULE (FP) PO ONE ×2 (19:58)
[2021-02-22] MEDS: POLYETHYLENE GLYCOL (HEALTHYLAX) 3350 17 GM PACKET PO SCH (20:34)
[2021-02-22] MEDS: INSULIN (LEVEMIR) 100 UNITS/ML UNITS SQ SCH (22:23)
[2021-02-22] MEDS ORDERED: FAMOTIDINE 20 MG TABLET PO ONE (23:48)
[2021-02-23] MEDS ORDERED: Insulin (LOG) Aspart 100 UNITS/ML VIAL SQ ONE (00:48)
[2021-02-23] MEDS ORDERED: hydrALAZINE HCL 50 MG TABLET (FP) PO ONE (00:53)
[2021-02-23] MEDS: ALBUTEROL SO4 2.5/IPRATROPIUM 0.5 INH SOL 3 ML VIAL.NEB. NEB SCH ×5 (04:00→15:40)
[2021-02-23] MEDS ORDERED: INSULIN (NOVOLOG) ASPART 100 UNITS/ML 10ML VIAL ONE ×4 (06:35→06:58)
[2021-02-23] MEDS: hydrALAZINE HCL 50 MG TABLET (FP) PO SCH ×2 (06:41→14:14)
[2021-02-23] MEDS: HEPARIN NA (PORCINE) 5,000 UNITS/ML 1ML VIAL SQ SCH ×2 (06:42→14:23)
[2021-02-23] MEDS: INSULIN SLIDING SCALE (NOVOLOG) 1 VIAL SQ SCH ×3 (06:42→17:36)
[2021-02-23] MEDS ORDERED: INSULIN (LEVEMIR) 100 UNITS/ML UNITS SQ ONE (06:59)
[2021-02-23 09:11] LABS: HEMATOCRIT 26.5 % (32.4-45.2); MCH 32.3 pg (25.7-33.7); MCHC 33.8 g/dl (32.0-36.0); MEAN CELL VOLUME 95.4 fl (80-96); MEAN PLT VOLUME 8.7 fl (7.5-11.1); PLATELET COUNT 259 10^3/uL (134-434); RBC 2.77 M/mm3 (3.60-5.2); RDW 16.6 % (11.6-15.6); WHITE BLOOD COUNT 7.4 K/mm3 (4.0-10.0)
[2021-02-23 09:16] LABS: CALCIUM 9.6 mg/dL (8.5-10.1)
[2021-02-23 09:17] LABS: BLOOD UREA NITROGEN 39.8 mg/dL (7-18)
[2021-02-23 09:20] LABS: PHOSPHOROUS 2.7 mg/dL (2.5-4.9)
[2021-02-23 09:22] LABS: CREATININE 4.5 mg/dL (0.55-1.3); MAGNESIUM 2.8 mg/dL (1.8-2.4)
[2021-02-23] MEDS ORDERED: BISACODYL 5 MG TABLET.DR (FP) PO ONE (09:45)
[2021-02-23] MEDS ORDERED: PT OWN MED DRAWER 7, Y5N ONE (09:47)
[2021-02-23] MEDS: DOXYCYCLINE HYCLATE 100 MG CAPSULE PO SCH ×2 (09:56→17:44)
[2021-02-23] MEDS: LIPASE/PROTEASE/AMYLASE 36,000 UNIT CAPSULE PO SCH ×3 (09:57→17:39)
[2021-02-23] MEDS: POLYETHYLENE GLYCOL (HEALTHYLAX) 3350 17 GM PACKET PO SCH (09:57)
[2021-02-23] MEDS: predniSONE 20 MG TABLET (UD) PO SCH (09:57)
[2021-02-23] MEDS: busPIRone HCL 10 MG TABLET (FP) PO SCH (09:57)
[2021-02-23] MEDS: PANTOPRAZOLE 40 MG TABLET PO SCH (09:57)
[2021-02-23] MEDS: ISOSORBIDE MONONITRATE 30 MG TAB.SR.24H (FP) PO SCH (09:57)
[2021-02-23] MEDS: BACITRACIN 15 GM TUBE TOPICAL OINTMENT TP SCH (09:57)
[2021-02-23] MEDS: DULoxetine HCL 30 MG CAPSULE.DR PO SCH (09:57)
[2021-02-23] MEDS: NIFEdipine E.R 60 MG TABLET PO SCH (09:57)
[2021-02-23] MEDS ORDERED: EPOETIN ALFA-EPBX 4,000 UNIT/ML VIAL SQ ONE (10:33)
[2021-02-23] MEDS ORDERED: SODIUM CHLORIDE 250 ML IV PRN (10:33)
[2021-02-23] MEDS ORDERED: NIFEdipine E.R 60 MG TABLET PO SCH (10:44)
[2021-02-23] MEDS ORDERED: NIFEdipine E.R. 30 MG TABLET PO ONE (10:45)
[2021-02-23] MEDS ORDERED: cloNIDine-TTS 0.3 MG /24 HRS PATCH.TDWK TD SCH (10:45)
[2021-02-23] MEDS: LOSARTAN POTASSIUM 50 MG TABLET PO SCH (14:15)
[2021-02-23 15:57] VITALS: BP 145/75; PULSE 95; TEMP 98.3
[2021-02-24] MEDS ORDERED: NIFEdipine E.R. 90 MG TABLET PO SCH (10:00)
== END 2021-02-23 18:20 | disposition home or self-care (01) | DRG 190 ==
LOC: JER 20:25 → JERBED 02-20 00:03 → J8W 02-20 05:08
PROVIDERS: ATTEND Internal Medicine
PROC: 5A1D70Z Performance of Urinary Filtration, Intermittent, Less than 6 Hours Per Day (ICD-10-PCS; principal; 2021-02-20)
PROC: 5A1D70Z Performance of Urinary Filtration, Intermittent, Less than 6 Hours Per Day (ICD-10-PCS; 2021-02-22)
DX: J44.1 Chronic obstructive pulmonary disease with (acute) exacerbation (principal); N18.6 End stage renal disease; J96.01 Acute respiratory failure with hypoxia; I13.2 Hypertensive heart and chronic kidney disease with heart failure and with stage 5 chronic kidney disease, or end stage renal disease; I50.32 Chronic diastolic (congestive) heart failure; I16.9 Hypertensive crisis, unspecified; L97.508 Non-pressure chronic ulcer of other part of unspecified foot with other specified severity; J45.909 Unspecified asthma, uncomplicated; E11.621 Type 2 diabetes mellitus with foot ulcer; K21.9 Gastro-esophageal reflux disease without esophagitis; F41.8 Other specified anxiety disorders; E11.40 Type 2 diabetes mellitus with diabetic neuropathy, unspecified; E11.43 Type 2 diabetes mellitus with diabetic autonomic (poly)neuropathy; E11.22 Type 2 diabetes mellitus with diabetic chronic kidney disease; S90.415A Abrasion, left lesser toe(s), initial encounter; E87.70 Fluid overload, unspecified; I16.0 Hypertensive urgency; K59.00 Constipation, unspecified; D64.9 Anemia, unspecified; G47.00 Insomnia, unspecified; R41.82 Altered mental status, unspecified; Z89.422 Acquired absence of other left toe(s); Z99.2 Dependence on renal dialysis
CPT/HCPCS: 36415; 70450-TC; 71045-TC-FY; 73630-TC-LT; 80048; 80053; 80061; 82550; 82803; 82962; 83036; 83735; 84100; 84443; 84484; 85025; 85027; 85651; 86140; 86803; 87040; 87070; 87075; 87205; 87340; 87804; 93005; 93010; 94640; 94761; 99285-25; C9803; J1100; J1644; Q5106; U0003; U0005

== ENCOUNTER 2021-03-05 18:30 | Inpatient (IN) | payer OTHER ==
[2021-03-05 19:12] VITALS: BMI 28.3
[2021-03-05] MEDS ORDERED: DEXAMETHASONE SOD PHOSPHATE 10 MG/1 ML VIAL IVPUSH ONE (19:24)
[2021-03-05] MEDS ORDERED: DEXAMETHASONE SOD PHOSPHATE 10 MG/1 ML VIAL ONE (19:40)
[2021-03-05] MEDS ORDERED: ALBUTEROL SO4 2.5/IPRATROPIUM 0.5 INH SOL 3 ML VIAL.NEB. NEB ONE (19:40)
[2021-03-05] MEDS ORDERED: NITROGLYCERIN SUBLINGUAL 1/150 0.4 MG TAB SL ONE ×3 (19:46→20:05)
[2021-03-05] MEDS: ALBUTEROL SO4 2.5/IPRATROPIUM 0.5 INH SOL 3 ML VIAL.NEB. NEB SCH (19:58)
[2021-03-05] MEDS ORDERED: hydrALAZINE HCL 50 MG TABLET (FP) PO ONE (20:16)
[2021-03-05] MEDS ORDERED: CARVEDILOL 25 MG TABLET (FP) PO ONE (20:17)
[2021-03-05 20:18] LABS: BASO % 1.6 % (0-2.0); EOS % 1.5 % (0-4.5); HEMATOCRIT 25.8 % (32.4-45.2); HEMOGLOBIN 8.8 GM/dL (10.7-15.3); MCH 32.7 pg (25.7-33.7); MCHC 34.2 g/dl (32.0-36.0); MEAN CELL VOLUME 95.7 fl (80-96); MEAN PLT VOLUME 8.7 fl (7.5-11.1); MONO % 5.8 % (3.8-10.2); NEUT % 80.1 % (42.8-82.8); PLATELET COUNT 231 10^3/uL (134-434); RDW 17.7 % (11.6-15.6); WHITE BLOOD COUNT 7.5 K/mm3 (4.0-10.0)
[2021-03-05 20:21] LABS: VENOUS BASE EXCESS -4.4 mmol/L (-2-2); VENOUS O2 SATURATION 98.7 % (70-80); VENOUS PCO2 33.8 mmHg (38-52); VENOUS PH 7.389 (7.310-7.410)
[2021-03-05] MEDS ORDERED: CARVEDILOL 12.5 MG TABLET (FP) ONE (20:35)
[2021-03-05 20:42] LABS: ALBUMIN 3.6 g/dl (3.4-5.0); BLOOD UREA NITROGEN 61.9 mg/dL (7-18); CALCIUM 9.4 mg/dL (8.5-10.1)
[2021-03-05 20:43] LABS: MAGNESIUM 2.9 mg/dL (1.8-2.4)
[2021-03-05] MEDS ORDERED: NITROGLYCERIN 25MG/D5W 250ML 25 MG/250 ML ML IVPB SCH (20:45)
[2021-03-05 20:46] LABS: CREATININE 6.9 mg/dL (0.55-1.3); PHOSPHOROUS 5.1 mg/dL (2.5-4.9)
[2021-03-05 20:47] LABS: BILIRUBIN,TOTAL 0.9 mg/dL (0.2-1); TOT PROT 8.3 g/dl (6.4-8.2)
[2021-03-05] MEDS ORDERED: NITROGLYCERIN 25MG/D5W 250ML 25 MG/250 ML ML IVPB ONE (21:00)
[2021-03-05] MEDS: NITROGLYCERIN 25MG/D5W 250ML 25 MG/250 ML ML IVPB SCH (21:40)
[2021-03-05] MEDS ORDERED: DALBAVANCIN HCL 1,125 MG in DEXTROSE 5%-WATER - 500 ML IVPB ONE (21:49)
[2021-03-05] MEDS ORDERED: VANCOMYCIN 1 GM in D5W (PRE-DOCKED) 1,000 MG/250 ML IVPB ONE (22:53)
[2021-03-05] MEDS ORDERED: PIPERACILLIN/TAZOB 3.375 GM 3.375 GM in DEXTROSE 5%-WATER - 50 ML IVPB ONE (22:53)
[2021-03-05] MEDS ORDERED: AZITHROMYCIN IVPB 500 MG in DEXTROSE 5%-WATER - 250 ML IVPB ONE (22:54)
[2021-03-05] MEDS ORDERED: VANCOMYCIN 1 GRAM (PRE-DOCKED) 1,000 MG/250 ML BAG IVPB ONE (23:03)
[2021-03-05] MEDS ORDERED: AZITHROMYCIN IVPB 500 MG/250 ML BAG IVPB ONE (23:03)
[2021-03-06] MEDS ORDERED: ACETAMINOPHEN 1000 MG/100 ML VIAL IVPB ONE (01:21)
[2021-03-06] MEDS ORDERED: ACETAMINOPHEN INJECTION 100 ML IVPB ONE (01:25)
[2021-03-06 03:42] LABS: ANION GAP 9 MMOL/L (8-16); BLOOD UREA NITROGEN 67.5 mg/dL (7-18); CALCIUM 9.2 mg/dL (8.5-10.1); CHLORIDE 101 mmol/L (98-107); CO2 22 mmol/L (21-32); CREATININE 7.2 mg/dL (0.55-1.3); GLUCOSE,RANDOM 286 mg/dL (74-106); SODIUM 132 mmol/L (136-145)
[2021-03-06] MEDS: NITROGLYCERIN 25MG/D5W 250ML 25 MG/250 ML ML IVPB SCH (05:00)
[2021-03-06] MEDS ORDERED: EPOETIN ALFA-EPBX 4,000 UNIT/ML VIAL SQ ONE (05:39)
[2021-03-06] MEDS ORDERED: EPOETIN ALFA-EPBX 2,000 UNIT, EPOETIN ALFA-EPBX 3,000 UNIT SQ ONE (08:00)
[2021-03-06] MEDS ORDERED: EPOETIN ALFA-EPBX 2,000 UNIT, EPOETIN ALFA-EPBX 3,000 UNIT IVPUSH ONE (08:00)
[2021-03-06] MEDS ORDERED: SODIUM CHLORIDE 250 ML IV PRN (08:00)
[2021-03-06] MEDS: HEPARIN NA (PORCINE) 5,000 UNITS/ML 1ML VIAL SQ SCH ×3 (08:01→22:23)
[2021-03-06 08:08] LABS: BASO % 0.5 % (0-2.0); HEMOGLOBIN 8.2 GM/dL (10.7-15.3); LYMPH % 10.9 % (8-40); MCH 32.7 pg (25.7-33.7); MCHC 33.1 g/dl (32.0-36.0); MEAN PLT VOLUME 9.6 fl (7.5-11.1); MONO % 2.3 % (3.8-10.2); NEUT % 86.3 % (42.8-82.8); PLATELET COUNT 206 10^3/uL (134-434); RBC 2.52 M/mm3 (3.60-5.2); RDW 17.7 % (11.6-15.6); WHITE BLOOD COUNT 3.8 K/mm3 (4.0-10.0)
[2021-03-06 08:16] LABS: ANION GAP 12 MMOL/L (8-16); CREATININE 7.5 mg/dL (0.55-1.3)
[2021-03-06 08:23] LABS: BLOOD UREA NITROGEN 73.2 mg/dL (7-18); CALCIUM 9.1 mg/dL (8.5-10.1); CHLORIDE 103 mmol/L (98-107); CO2 21 mmol/L (21-32); GLUCOSE,RANDOM 311 mg/dL (74-106); SODIUM 135 mmol/L (136-145)
[2021-03-06] MEDS: ALBUTEROL SO4 2.5/IPRATROPIUM 0.5 INH SOL 3 ML VIAL.NEB. NEB SCH ×3 (08:33→20:10)
[2021-03-06] MEDS ORDERED: LOSARTAN POTASSIUM 100 MG TABLET PO SCH (12:45)
[2021-03-06] MEDS ORDERED: cloNIDine-TTS 0.2 MG/24 HOURS PATCH.TDWK TD SCH (12:45)
[2021-03-06] MEDS: NIFEdipine E.R 60 MG TABLET PO SCH (13:44)
[2021-03-06] MEDS: methylPREDNISolone NA SUCC 125 MG/2 ML VIAL IVPUSH SCH ×2 (13:44→22:24)
[2021-03-06] MEDS: DULoxetine HCL 30 MG CAPSULE.DR PO SCH (13:44)
[2021-03-06] MEDS: hydrALAZINE HCL 50 MG TABLET (FP) PO SCH ×2 (13:44→22:22)
[2021-03-06] MEDS: SODIUM ZIRCONIUM CYCLOSILICATE (LOKELMA) 5 GM PACKET PO SCH (13:44)
[2021-03-06] MEDS: LIPASE/PROTEASE/AMYLASE 36,000 UNIT CAPSULE PO SCH (13:59)
[2021-03-06] MEDS ORDERED: INSULIN SLIDING SCALE (NOVOLOG) 1 VIAL SQ SCH (14:00)
[2021-03-06] MEDS ORDERED: VANCOMYCIN/WATER FOR INJ (PEG) 750 MG/150 ML BAG IVPB ONE (14:00)
[2021-03-06] MEDS: LOSARTAN POTASSIUM 50 MG TABLET PO SCH (14:34)
[2021-03-06] MEDS: INSULIN SLIDING SCALE (NOVOLOG) 1 VIAL SQ SCH (18:44)
[2021-03-06] MEDS ORDERED: INSULIN (LEVEMIR) 100 UNITS/ML UNITS SQ SCH (22:00)
[2021-03-06] MEDS: busPIRone HCL 10 MG TABLET (FP) PO SCH (22:22)
[2021-03-07] MEDS ORDERED: AZITHROMYCIN IVPB 500 MG/250 ML BAG IVPB SCH
[2021-03-07] MEDS: LIPASE/PROTEASE/AMYLASE 36,000 UNIT CAPSULE PO SCH ×4 (00:15→21:50)
[2021-03-07] MEDS ORDERED: PT OWN MED DRAWER 7, Y5N ONE ×4 (03:59→21:47)
[2021-03-07] MEDS: hydrALAZINE HCL 50 MG TABLET (FP) PO SCH ×3 (06:43→21:43)
[2021-03-07] MEDS: HEPARIN NA (PORCINE) 5,000 UNITS/ML 1ML VIAL SQ SCH ×3 (06:45→21:41)
[2021-03-07] MEDS: INSULIN SLIDING SCALE (NOVOLOG) 1 VIAL SQ SCH ×3 (07:16→17:26)
[2021-03-07] MEDS: ALBUTEROL SO4 2.5/IPRATROPIUM 0.5 INH SOL 3 ML VIAL.NEB. NEB SCH ×3 (07:43→19:54)
[2021-03-07] MEDS ORDERED: INSULIN (LEVEMIR) 100 UNITS/ML UNITS SQ ONE (08:16)
[2021-03-07] MEDS: cloNIDine-TTS 0.2 MG/24 HOURS PATCH.TDWK TD SCH (10:21)
[2021-03-07] MEDS: DULoxetine HCL 30 MG CAPSULE.DR PO SCH (10:22)
[2021-03-07] MEDS: LOSARTAN POTASSIUM 50 MG TABLET PO SCH (10:22)
[2021-03-07] MEDS: AZITHROMYCIN 250 MG TABLET PO SCH (10:22)
[2021-03-07] MEDS: ISOSORBIDE MONONITRATE 30 MG TAB.SR.24H (FP) PO SCH (10:22)
[2021-03-07] MEDS: busPIRone HCL 10 MG TABLET (FP) PO SCH ×2 (10:23→21:43)
[2021-03-07] MEDS: methylPREDNISolone NA SUCC 125 MG/2 ML VIAL IVPUSH SCH ×2 (10:23→21:36)
[2021-03-07] MEDS: SODIUM ZIRCONIUM CYCLOSILICATE (LOKELMA) 5 GM PACKET PO SCH (10:23)
[2021-03-07] MEDS: PANTOPRAZOLE 40 MG TABLET PO SCH (10:23)
[2021-03-07] MEDS: NIFEdipine E.R 60 MG TABLET PO SCH (10:23)
[2021-03-07 11:30] LABS: HEMATOCRIT 25.3 % (32.4-45.2); HEMOGLOBIN 8.4 GM/dL (10.7-15.3); MCH 33.1 pg (25.7-33.7); MCHC 33.2 g/dl (32.0-36.0); MEAN CELL VOLUME 99.6 fl (80-96); MEAN PLT VOLUME 9.2 fl (7.5-11.1); PLATELET COUNT 217 10^3/uL (134-434); RBC 2.54 M/mm3 (3.60-5.2); RDW 18.1 % (11.6-15.6); WHITE BLOOD COUNT 6.9 K/mm3 (4.0-10.0)
[2021-03-07 11:47] LABS: CALCIUM 9.1 mg/dL (8.5-10.1)
[2021-03-07 11:48] LABS: BLOOD UREA NITROGEN 64.1 mg/dL (7-18); MAGNESIUM 2.5 mg/dL (1.8-2.4)
[2021-03-07 11:51] LABS: CREATININE 5.6 mg/dL (0.55-1.3); PHOSPHOROUS 4.8 mg/dL (2.5-4.9)
[2021-03-07] MEDS: INSULIN (LEVEMIR) 100 UNITS/ML UNITS SQ SCH (17:19)
[2021-03-07] MEDS: Insulin (LOG) Aspart 100 UNITS/ML VIAL SQ SCH (17:26)
[2021-03-07] MEDS: MELATONIN 5 MG TABLETS PO PRN (21:43)
[2021-03-08] MEDS ORDERED: SENNOSIDES 8.6MG TABLET (FP) PO ONE (01:30)
[2021-03-08] MEDS ORDERED: POLYETHYLENE GLYCOL (HEALTHYLAX) 3350 17 GM PACKET PO ONE (02:34)
[2021-03-08] MEDS ORDERED: MAG HYDROX/AL HYDROX/SIMETH 30 ML UNIT-DOSE CUP PO ONE ×2 (03:06→05:11)
[2021-03-08] MEDS ORDERED: ACETAMINOPHEN 1000 MG/100 ML VIAL IVPB ONE (03:42)
[2021-03-08] MEDS ORDERED: METOCLOPRAMIDE HCL INJECTION 10 MG/2 ML VIAL IVPUSH ONE (06:06)
[2021-03-08] MEDS: INSULIN (LEVEMIR) 100 UNITS/ML UNITS SQ SCH ×2 (06:30→16:39)
[2021-03-08] MEDS: HEPARIN NA (PORCINE) 5,000 UNITS/ML 1ML VIAL SQ SCH ×3 (06:34→21:13)
[2021-03-08] MEDS: LIPASE/PROTEASE/AMYLASE 36,000 UNIT CAPSULE PO SCH ×3 (06:35→21:13)
[2021-03-08] MEDS: hydrALAZINE HCL 50 MG TABLET (FP) PO SCH ×4 (06:35→21:13)
[2021-03-08] MEDS: INSULIN SLIDING SCALE (NOVOLOG) 1 VIAL SQ SCH ×3 (06:35→17:10)
[2021-03-08] MEDS: Insulin (LOG) Aspart 100 UNITS/ML VIAL SQ SCH ×3 (06:46→17:09)
[2021-03-08] MEDS ORDERED: SODIUM CHLORIDE 250 ML IV PRN (06:52)
[2021-03-08] MEDS ORDERED: methylPREDNISolone NA SUCC 40 MG/1 ML VIAL IVPUSH SCH (07:59)
[2021-03-08] MEDS: ALBUTEROL SO4 2.5/IPRATROPIUM 0.5 INH SOL 3 ML VIAL.NEB. NEB SCH ×3 (08:20→20:21)
[2021-03-08] MEDS ORDERED: FAMOTIDINE 20 MG TABLET PO ONE (08:30)
[2021-03-08] MEDS ORDERED: BENZOCAINE/MENTH/CETYLPYRD CL 1 EACH LOZENGE MM PRN (08:36)
[2021-03-08] MEDS ORDERED: BENZOIN 118 ML SPRAY.PUMP TP ONE (09:08)
[2021-03-08] MEDS ORDERED: LIDOCAINE 5% TOPICAL PATCH TP ONE (09:15)
[2021-03-08] MEDS ORDERED: FAMOTIDINE 20 MG/50 ML IVPB 20 MG/50 ML MG IVPB ONE (09:15)
[2021-03-08] MEDS ORDERED: POVIDONE-IODINE 10% SOLN 118 ML BOTTLE TP ONE (09:30)
[2021-03-08] MEDS: SODIUM ZIRCONIUM CYCLOSILICATE (LOKELMA) 5 GM PACKET PO SCH (09:53)
[2021-03-08] MEDS: NIFEdipine E.R 60 MG TABLET PO SCH (09:53)
[2021-03-08] MEDS: AZITHROMYCIN 250 MG TABLET PO SCH (09:53)
[2021-03-08] MEDS: busPIRone HCL 10 MG TABLET (FP) PO SCH (09:53)
[2021-03-08] MEDS: DULoxetine HCL 30 MG CAPSULE.DR PO SCH (09:53)
[2021-03-08] MEDS: ISOSORBIDE MONONITRATE 30 MG TAB.SR.24H (FP) PO SCH (09:53)
[2021-03-08] MEDS ORDERED: PROCHLORPERAZINE INJECTION 10 MG/2 ML VIAL IVPB ONE (10:00)
[2021-03-08] MEDS ORDERED: EPOETIN ALFA-EPBX 4,000 UNIT/ML VIAL IVPUSH ONE (10:00)
[2021-03-08] MEDS ORDERED: TETRACAINE/BENZOCAINE/BUTAMBEN 20 GM SPR TP ONE (10:15)
[2021-03-08] MEDS: PANTOPRAZOLE 40 MG TABLET PO SCH (10:30)
[2021-03-08] MEDS: LOSARTAN POTASSIUM 50 MG TABLET PO SCH (10:31)
[2021-03-08] MEDS ORDERED: PT OWN MED DRAWER 7, Y5N ONE ×3 (11:41→21:06)
[2021-03-08 12:40] LABS: HEMATOCRIT 23.7 % (32.4-45.2); HEMOGLOBIN 8.1 GM/dL (10.7-15.3); MCH 33.4 pg (25.7-33.7); MEAN CELL VOLUME 98.3 fl (80-96); MEAN PLT VOLUME 9.5 fl (7.5-11.1); PLATELET COUNT 236 10^3/uL (134-434); RBC 2.41 M/mm3 (3.60-5.2); RDW 18.5 % (11.6-15.6); WHITE BLOOD COUNT 6.1 K/mm3 (4.0-10.0)
[2021-03-08 12:54] LABS: CALCIUM 9.4 mg/dL (8.5-10.1)
[2021-03-08 12:55] LABS: BLOOD UREA NITROGEN 85.4 mg/dL (7-18); MAGNESIUM 2.7 mg/dL (1.8-2.4)
[2021-03-08 12:58] LABS: CREATININE 7.1 mg/dL (0.55-1.3); PHOSPHOROUS 5.1 mg/dL (2.5-4.9)
[2021-03-08] MEDS: methylPREDNISolone NA SUCC 40 MG/1 ML VIAL IVPUSH SCH ×2 (15:30→17:14)
[2021-03-08] MEDS: POLYETHYLENE GLYCOL (HEALTHYLAX) 3350 17 GM PACKET PO SCH (16:21)
[2021-03-08] MEDS: DOCUSATE SODIUM 100 MG CAPSULE (FP) PO SCH (16:21)
[2021-03-08] MEDS ORDERED: PROCHLORPERAZINE INJECTION 10 MG/2 ML VIAL IVPB PRN (16:27)
[2021-03-08] MEDS ORDERED: LIDOCAINE PATCH REMOVAL MC ONE (22:00)
[2021-03-09] MEDS: methylPREDNISolone NA SUCC 40 MG/1 ML VIAL IVPUSH SCH ×3 (01:09→17:34)
[2021-03-09] MEDS ORDERED: PT OWN MED DRAWER 7, Y5N ONE ×5 (02:16→21:05)
[2021-03-09] MEDS: cloNIDine-TTS 0.2 MG/24 HOURS PATCH.TDWK TD SCH (02:17)
[2021-03-09] MEDS: LIPASE/PROTEASE/AMYLASE 36,000 UNIT CAPSULE PO SCH ×3 (06:03→21:06)
[2021-03-09] MEDS: HEPARIN NA (PORCINE) 5,000 UNITS/ML 1ML VIAL SQ SCH ×3 (06:03→21:08)
[2021-03-09] MEDS: hydrALAZINE HCL 50 MG TABLET (FP) PO SCH ×3 (06:03→21:06)
[2021-03-09] MEDS: Insulin (LOG) Aspart 100 UNITS/ML VIAL SQ SCH ×3 (06:20→16:56)
[2021-03-09] MEDS: INSULIN (LEVEMIR) 100 UNITS/ML UNITS SQ SCH ×2 (06:20→17:34)
[2021-03-09] MEDS: INSULIN SLIDING SCALE (NOVOLOG) 1 VIAL SQ SCH ×4 (06:20→22:20)
[2021-03-09] MEDS: ALBUTEROL SO4 2.5/IPRATROPIUM 0.5 INH SOL 3 ML VIAL.NEB. NEB SCH ×4 (08:15→20:29)
[2021-03-09 09:13] LABS: HEMATOCRIT 26.2 % (32.4-45.2); HEMOGLOBIN 8.7 GM/dL (10.7-15.3); MCH 33.1 pg (25.7-33.7); MCHC 33.1 g/dl (32.0-36.0); MEAN CELL VOLUME 99.7 fl (80-96); MEAN PLT VOLUME 9.5 fl (7.5-11.1); PLATELET COUNT 241 10^3/uL (134-434); RBC 2.63 M/mm3 (3.60-5.2); RDW 19.1 % (11.6-15.6)
[2021-03-09] MEDS: LOSARTAN POTASSIUM 50 MG TABLET PO SCH (09:19)
[2021-03-09] MEDS: POLYETHYLENE GLYCOL (HEALTHYLAX) 3350 17 GM PACKET PO SCH (09:19)
[2021-03-09] MEDS: PANTOPRAZOLE 40 MG TABLET PO SCH (09:20)
[2021-03-09] MEDS: CARVEDILOL 25 MG TABLET (FP) PO SCH ×2 (09:20→21:06)
[2021-03-09] MEDS: DOCUSATE SODIUM 100 MG CAPSULE (FP) PO SCH (09:20)
[2021-03-09] MEDS: DULoxetine HCL 30 MG CAPSULE.DR PO SCH (09:20)
[2021-03-09] MEDS: ISOSORBIDE MONONITRATE 30 MG TAB.SR.24H (FP) PO SCH (09:20)
[2021-03-09] MEDS: SODIUM ZIRCONIUM CYCLOSILICATE (LOKELMA) 5 GM PACKET PO SCH (09:21)
[2021-03-09] MEDS: NIFEdipine E.R 60 MG TABLET PO SCH (09:21)
[2021-03-09] MEDS: AZITHROMYCIN 250 MG TABLET PO SCH (09:21)
[2021-03-09 09:36] LABS: CALCIUM 9.2 mg/dL (8.5-10.1); MAGNESIUM 2.6 mg/dL (1.8-2.4)
[2021-03-09 09:39] LABS: CREATININE 4.8 mg/dL (0.55-1.3); PHOSPHOROUS 4.6 mg/dL (2.5-4.9)
[2021-03-09 09:41] LABS: BLOOD UREA NITROGEN 47.6 mg/dL (7-18)
[2021-03-09] MEDS ORDERED: predniSONE 20 MG TABLET (UD) PO SCH (10:00)
[2021-03-09] MEDS ORDERED: NIFEdipine E.R 60 MG TABLET PO SCH (11:08)
[2021-03-09] MEDS ORDERED: SODIUM CHLORIDE 250 ML IV PRN (11:13)
[2021-03-09] MEDS ORDERED: NIFEdipine E.R. 30 MG TABLET PO ONE (11:30)
[2021-03-09] MEDS: MELATONIN 5 MG TABLETS PO PRN (21:12)
[2021-03-10] MEDS: methylPREDNISolone NA SUCC 40 MG/1 ML VIAL IVPUSH SCH (01:17)
[2021-03-10] MEDS: HEPARIN NA (PORCINE) 5,000 UNITS/ML 1ML VIAL SQ SCH ×3 (05:31→21:21)
[2021-03-10] MEDS: hydrALAZINE HCL 50 MG TABLET (FP) PO SCH ×3 (05:31→21:20)
[2021-03-10] MEDS: LIPASE/PROTEASE/AMYLASE 36,000 UNIT CAPSULE PO SCH ×3 (05:32→21:20)
[2021-03-10] MEDS: INSULIN (LEVEMIR) 100 UNITS/ML UNITS SQ SCH ×2 (06:22→16:35)
[2021-03-10] MEDS: INSULIN SLIDING SCALE (NOVOLOG) 1 VIAL SQ SCH ×4 (06:23→21:21)
[2021-03-10] MEDS: Insulin (LOG) Aspart 100 UNITS/ML VIAL SQ SCH ×3 (06:25→16:36)
[2021-03-10] MEDS: DULoxetine HCL 30 MG CAPSULE.DR PO SCH (09:05)
[2021-03-10] MEDS: LOSARTAN POTASSIUM 50 MG TABLET PO SCH (09:05)
[2021-03-10] MEDS: NIFEdipine E.R. 90 MG TABLET PO SCH (09:05)
[2021-03-10] MEDS: DOCUSATE SODIUM 100 MG CAPSULE (FP) PO SCH (09:05)
[2021-03-10] MEDS: CARVEDILOL 25 MG TABLET (FP) PO SCH ×2 (09:05→21:20)
[2021-03-10] MEDS: ISOSORBIDE MONONITRATE 30 MG TAB.SR.24H (FP) PO SCH (09:05)
[2021-03-10] MEDS: POLYETHYLENE GLYCOL (HEALTHYLAX) 3350 17 GM PACKET PO SCH (09:05)
[2021-03-10] MEDS: PANTOPRAZOLE 40 MG TABLET PO SCH (09:05)
[2021-03-10] MEDS: predniSONE 20 MG TABLET (UD) PO SCH (09:05)
[2021-03-10] MEDS: ALBUTEROL SO4 2.5/IPRATROPIUM 0.5 INH SOL 3 ML VIAL.NEB. NEB SCH ×3 (09:32→20:31)
[2021-03-10] MEDS ORDERED: cloNIDine-TTS 0.3 MG /24 HRS PATCH.TDWK TD SCH (10:00)
[2021-03-10] MEDS: SODIUM ZIRCONIUM CYCLOSILICATE (LOKELMA) 5 GM PACKET PO SCH (10:30)
[2021-03-10 10:48] LABS: HEMATOCRIT 24.4 % (32.4-45.2); HEMOGLOBIN 8.1 GM/dL (10.7-15.3); MCH 33.1 pg (25.7-33.7); MCHC 33.4 g/dl (32.0-36.0); MEAN CELL VOLUME 99.2 fl (80-96); MEAN PLT VOLUME 9.4 fl (7.5-11.1); PLATELET COUNT 224 10^3/uL (134-434); RBC 2.46 M/mm3 (3.60-5.2); RDW 19.1 % (11.6-15.6); WHITE BLOOD COUNT 4.6 K/mm3 (4.0-10.0)
[2021-03-10 11:19] LABS: MAGNESIUM 2.6 mg/dL (1.8-2.4)
[2021-03-10 11:22] LABS: BLOOD UREA NITROGEN 79.2 mg/dL (7-18); CREATININE 6.6 mg/dL (0.55-1.3); PHOSPHOROUS 4.7 mg/dL (2.5-4.9)
[2021-03-10] MEDS ORDERED: PT OWN MED DRAWER 7, Y5N ONE (14:29)
[2021-03-10] MEDS ORDERED: INSULIN (NOVOLOG) ASPART 100 UNITS/ML 10ML VIAL ONE (21:19)
[2021-03-10] MEDS: MELATONIN 5 MG TABLETS PO PRN (21:20)
[2021-03-11] MEDS: LIPASE/PROTEASE/AMYLASE 36,000 UNIT CAPSULE PO SCH ×2 (05:27→13:23)
[2021-03-11] MEDS: hydrALAZINE HCL 50 MG TABLET (FP) PO SCH ×2 (05:27→13:13)
[2021-03-11] MEDS: HEPARIN NA (PORCINE) 5,000 UNITS/ML 1ML VIAL SQ SCH ×2 (05:28→13:13)
[2021-03-11] MEDS: INSULIN SLIDING SCALE (NOVOLOG) 1 VIAL SQ SCH ×2 (06:28→11:20)
[2021-03-11] MEDS: INSULIN (LEVEMIR) 100 UNITS/ML UNITS SQ SCH (06:28)
[2021-03-11] MEDS: Insulin (LOG) Aspart 100 UNITS/ML VIAL SQ SCH ×2 (06:30→11:19)
[2021-03-11 08:43] VITALS: TEMP 98.3
[2021-03-11] MEDS: ALBUTEROL SO4 2.5/IPRATROPIUM 0.5 INH SOL 3 ML VIAL.NEB. NEB SCH ×2 (08:46→13:36)
[2021-03-11] MEDS ORDERED: PT OWN MED DRAWER 7, Y5N ONE ×2 (09:12→13:21)
[2021-03-11] MEDS: ISOSORBIDE MONONITRATE 30 MG TAB.SR.24H (FP) PO SCH (10:04)
[2021-03-11] MEDS: PANTOPRAZOLE 40 MG TABLET PO SCH (10:04)
[2021-03-11] MEDS: NIFEdipine E.R. 90 MG TABLET PO SCH (10:04)
[2021-03-11] MEDS: DOCUSATE SODIUM 100 MG CAPSULE (FP) PO SCH (10:04)
[2021-03-11] MEDS: predniSONE 20 MG TABLET (UD) PO SCH (10:04)
[2021-03-11] MEDS: SODIUM ZIRCONIUM CYCLOSILICATE (LOKELMA) 5 GM PACKET PO SCH (10:04)
[2021-03-11] MEDS: LOSARTAN POTASSIUM 50 MG TABLET PO SCH (10:05)
[2021-03-11] MEDS: CARVEDILOL 25 MG TABLET (FP) PO SCH (10:05)
[2021-03-11] MEDS: DULoxetine HCL 30 MG CAPSULE.DR PO SCH (10:05)
[2021-03-11] MEDS: POLYETHYLENE GLYCOL (HEALTHYLAX) 3350 17 GM PACKET PO SCH (10:20)
[2021-03-11 11:38] LABS: HEMATOCRIT 24.7 % (32.4-45.2); HEMOGLOBIN 8.2 GM/dL (10.7-15.3); MCH 33.2 pg (25.7-33.7); MEAN CELL VOLUME 100.7 fl (80-96); PLATELET COUNT 206 10^3/uL (134-434); RBC 2.45 M/mm3 (3.60-5.2); RDW 19.6 % (11.6-15.6); WHITE BLOOD COUNT 4.4 K/mm3 (4.0-10.0)
[2021-03-11 12:08] LABS: CALCIUM 8.9 mg/dL (8.5-10.1)
[2021-03-11 12:09] LABS: BLOOD UREA NITROGEN 58.2 mg/dL (7-18); MAGNESIUM 2.5 mg/dL (1.8-2.4)
[2021-03-11 12:12] LABS: BILIRUBIN,TOTAL 0.4 mg/dL (0.2-1); PHOSPHOROUS 4.9 mg/dL (2.5-4.9)
[2021-03-11] MEDS ORDERED: ISOSORBIDE MONONITRATE 60 MG TAB.SR.24H (FP) PO SCH (12:41)
[2021-03-11 14:56] VITALS: BP 176/84; PULSE 89
== END 2021-03-11 15:32 | disposition home or self-care (01) | DRG 190 ==
LOC: JER 18:30 → JERBED 19:47 → J4W 03-06 04:07
PROVIDERS: ADMIT Internal Medicine; ATTEND Internal Medicine
PROC: 5A1D70Z Performance of Urinary Filtration, Intermittent, Less than 6 Hours Per Day (ICD-10-PCS; principal; 2021-03-10)
DX: J44.1 Chronic obstructive pulmonary disease with (acute) exacerbation (principal); J96.01 Acute respiratory failure with hypoxia; N18.6 End stage renal disease; I13.2 Hypertensive heart and chronic kidney disease with heart failure and with stage 5 chronic kidney disease, or end stage renal disease; I50.32 Chronic diastolic (congestive) heart failure; I16.9 Hypertensive crisis, unspecified; E11.65 Type 2 diabetes mellitus with hyperglycemia; E11.621 Type 2 diabetes mellitus with foot ulcer; E11.22 Type 2 diabetes mellitus with diabetic chronic kidney disease; L08.9 Local infection of the skin and subcutaneous tissue, unspecified; E87.5 Hyperkalemia; I16.0 Hypertensive urgency; F17.210 Nicotine dependence, cigarettes, uncomplicated; K21.9 Gastro-esophageal reflux disease without esophagitis; F41.8 Other specified anxiety disorders; E87.70 Fluid overload, unspecified; Z99.2 Dependence on renal dialysis
CPT/HCPCS: 36415; 71045-TC-FY; 71250-TC; 80048; 80053; 82550; 82803; 82962; 83605; 83735; 84100; 84484; 85025; 85027; 87040; 87804; 93005; 93010; 93922; 93926-TC; 94640; 94660; 94761; 97597; 99285-25; C9803; J0131; J0875; J1100; J1644; Q5106; U0003; U0005

== ENCOUNTER 2021-06-14 17:07 | Observation (INO) | payer OTHER ==
[2021-06-14] MEDS ORDERED: MAG HYDROX/AL HYDROX/SIMETH 30 ML UNIT-DOSE CUP PO ONE (19:12)
[2021-06-14] MEDS ORDERED: METOCLOPRAMIDE HCL INJECTION 10 MG/2 ML VIAL IVPB ONE (19:12)
[2021-06-14] MEDS ORDERED: ONDANSETRON 4 MG/2 ML VIAL IVPUSH ONE (19:12)
[2021-06-14] MEDS ORDERED: FAMOTIDINE 20 MG/50 ML IVPB 20 MG/50 ML MG IVPB ONE ×2 (19:12→19:28)
[2021-06-14] MEDS ORDERED: CALCIUM GLUCONATE 10% - 1,000 MG/10 ML VIAL IVPUSH ONE ×2 (19:21→21:31)
[2021-06-14] MEDS ORDERED: INSULIN REGULAR HUMAN 100 UNITS/ML *VIAL IVPUSH ONE (19:21)
[2021-06-14] MEDS ORDERED: DEXTROSE 50%-WATER - 25 GM/50 ML VIAL IVPUSH ONE (19:22)
[2021-06-14] MEDS ORDERED: METOCLOPRAMIDE HCL INJECTION 10 MG/2 ML VIAL ONE (19:28)
[2021-06-14] MEDS ORDERED: CALCIUM GLUCONATE 10% - 1,000 MG/10 ML VIAL ONE ×2 (19:28→22:28)
[2021-06-14] MEDS ORDERED: MAG HYDROX/AL HYDROX/SIMETH 30 ML UNIT-DOSE CUP ONE (20:00)
[2021-06-14] MEDS ORDERED: NIFEdipine E.R. 90 MG TABLET PO ONE (20:10)
[2021-06-14] MEDS ORDERED: LOSARTAN POTASSIUM 50 MG TABLET PO ONE (20:10)
[2021-06-14] MEDS ORDERED: ACETAMINOPHEN 1000 MG/100 ML BAG IVPB ONE (20:11)
[2021-06-14 20:19] LABS: EOS % 0.4 % (0-4.5); HEMOGLOBIN 11.3 GM/dL (10.7-15.3); LYMPH % 17.9 % (8-40); MCH 31.6 pg (25.7-33.7); MCHC 34.2 g/dl (32.0-36.0); MEAN CELL VOLUME 92.3 fl (80-96); MEAN PLT VOLUME 8.6 fl (7.5-11.1); MONO % 6.4 % (3.8-10.2); NEUT % 74.3 % (42.8-82.8); PLATELET COUNT 211 10^3/uL (134-434); RBC 3.58 M/mm3 (3.60-5.2); RDW 16.1 % (11.6-15.6); WHITE BLOOD COUNT 4.2 K/mm3 (4.0-10.0)
[2021-06-14 20:25] LABS: INR 1.03 (0.83-1.09); PROTHROMBIN TIME (PATIENT) 11.9 SEC (9.7-13.0)
[2021-06-14 20:34] LABS: CHLORIDE 96 mmol/L (98-107); SODIUM 130 mmol/L (136-145)
[2021-06-14 20:36] LABS: BLOOD UREA NITROGEN 43.1 mg/dL (7-18); CALCIUM 9.9 mg/dL (8.5-10.1); CO2 29 mmol/L (21-32); GLUCOSE,RANDOM 188 mg/dL (74-106)
[2021-06-14 20:37] LABS: ALBUMIN 3.9 g/dl (3.4-5.0); MAGNESIUM 2.5 mg/dL (1.8-2.4)
[2021-06-14 20:39] LABS: SGOT/AST 70 U/L (15-37)
[2021-06-14 20:40] LABS: PHOSPHOROUS 5.1 mg/dL (2.5-4.9)
[2021-06-14 20:41] LABS: BILIRUBIN,TOTAL 0.4 mg/dL (0.2-1); TOT PROT 8.4 g/dl (6.4-8.2)
[2021-06-14 20:42] LABS: ALK PHOS 296 U/L (45-117)
[2021-06-14 20:46] LABS: ANION GAP 5 MMOL/L (8-16); SGPT/ALT 29 U/L (13-61)
[2021-06-14] MEDS ORDERED: ASPIRIN 81 MG CHEWABLE TABLETS PO ONE (21:04)
[2021-06-14] MEDS ORDERED: ASPIRIN 81 MG CHEWABLE TABLETS ONE (21:12)
[2021-06-14] MEDS ORDERED: LOSARTAN POTASSIUM 50 MG TABLET ONE (21:13)
[2021-06-14] MEDS ORDERED: NIFEdipine E.R. 30 MG TABLET ONE (21:13)
[2021-06-14] MEDS ORDERED: ACETAMINOPHEN INJECTION 100 ML IVPB ONE ×2 (21:13→22:59)
[2021-06-14 22:50] LABS: ALBUMIN 3.7 g/dl (3.4-5.0); BLOOD UREA NITROGEN 41.2 mg/dL (7-18); CALCIUM 9.6 mg/dL (8.5-10.1)
[2021-06-14 22:53] LABS: CREATININE 5.3 mg/dL (0.55-1.3)
[2021-06-14 22:55] LABS: BILIRUBIN,TOTAL 0.4 mg/dL (0.2-1); TOT PROT 7.7 g/dl (6.4-8.2)
[2021-06-15] MEDS ORDERED: ONDANSETRON 4 MG/2 ML VIAL IVPUSH PRN (01:27)
[2021-06-15] MEDS ORDERED: ALBUTEROL SO4 2.5/IPRATROPIUM 0.5 INH SOL 3 ML VIAL.NEB. NEB PRN (02:00)
[2021-06-15] MEDS ORDERED: ONDANSETRON 4 MG/2 ML VIAL ONE (02:15)
[2021-06-15] MEDS ORDERED: hydrALAZINE HCL 25 MG TABLET (FP) PO ONE (04:32)
[2021-06-15] MEDS ORDERED: HEPARIN NA (PORCINE) 5,000 UNITS/ML 1ML VIAL ONE ×2 (06:06→15:26)
[2021-06-15] MEDS ORDERED: hydrALAZINE HCL 25 MG TABLET (FP) ONE (06:06)
[2021-06-15] MEDS: BISACODYL 5 MG TABLET.DR (FP) PO SCH ×3 (06:11→23:21)
[2021-06-15] MEDS: HEPARIN NA (PORCINE) 5,000 UNITS/ML 1ML VIAL SQ SCH ×3 (06:11→23:21)
[2021-06-15] MEDS: INSULIN SLIDING SCALE (NOVOLOG) 1 VIAL SQ SCH ×4 (07:01→23:22)
[2021-06-15 09:06] LABS: BASO % 1.4 % (0-2.0); EOS % 1.1 % (0-4.5); HEMATOCRIT 32.1 % (32.4-45.2); HEMOGLOBIN 11.2 GM/dL (10.7-15.3); MCH 32.6 pg (25.7-33.7); MCHC 34.9 g/dl (32.0-36.0); MEAN CELL VOLUME 93.3 fl (80-96); MEAN PLT VOLUME 8.4 fl (7.5-11.1); MONO % 9.8 % (3.8-10.2); NEUT % 55.7 % (42.8-82.8); PLATELET COUNT 221 10^3/uL (134-434); RBC 3.44 M/mm3 (3.60-5.2); RDW 15.7 % (11.6-15.6); WHITE BLOOD COUNT 4.3 K/mm3 (4.0-10.0)
[2021-06-15 09:28] LABS: CALCIUM 9.5 mg/dL (8.5-10.1)
[2021-06-15 09:29] LABS: ALBUMIN 3.8 g/dl (3.4-5.0); BLOOD UREA NITROGEN 51.7 mg/dL (7-18); MAGNESIUM 2.8 mg/dL (1.8-2.4)
[2021-06-15 09:32] LABS: CREATININE 6.1 mg/dL (0.55-1.3)
[2021-06-15 09:33] LABS: BILIRUBIN,TOTAL 0.5 mg/dL (0.2-1); TOT PROT 7.7 g/dl (6.4-8.2)
[2021-06-15] MEDS ORDERED: PANTOPRAZOLE 40 MG TABLET ONE (09:36)
[2021-06-15] MEDS ORDERED: ISOSORBIDE MONONITRATE 60 MG TAB.SR.24H (FP) PO ONE (09:36)
[2021-06-15] MEDS: CARVEDILOL 25 MG TABLET (FP) PO SCH ×2 (09:50→22:38)
[2021-06-15] MEDS: NIFEdipine E.R 60 MG TABLET PO SCH (09:50)
[2021-06-15] MEDS: PANTOPRAZOLE 40 MG TABLET PO SCH (09:50)
[2021-06-15] MEDS: ISOSORBIDE MONONITRATE 60 MG TAB.SR.24H (FP) PO SCH (09:50)
[2021-06-15] MEDS ORDERED: cloNIDine-TTS 0.3 MG /24 HRS PATCH.TDWK TD SCH (10:00)
[2021-06-15] MEDS ORDERED: SODIUM CHLORIDE 250 ML IV PRN (17:29)
[2021-06-15] MEDS ORDERED: MECLIZINE HCL 12.5 MG TABLET PO PRN (23:48)
[2021-06-16 05:02] VITALS: BMI 27.1
[2021-06-16] MEDS ORDERED: hydrALAZINE HCL 50 MG TABLET (FP) PO ONE (05:54)
[2021-06-16] MEDS: BISACODYL 5 MG TABLET.DR (FP) PO SCH ×2 (06:30→13:45)
[2021-06-16] MEDS: INSULIN SLIDING SCALE (NOVOLOG) 1 VIAL SQ SCH ×2 (06:30→11:58)
[2021-06-16] MEDS: HEPARIN NA (PORCINE) 5,000 UNITS/ML 1ML VIAL SQ SCH ×2 (06:30→13:45)
[2021-06-16 08:06] LABS: EOS % 2.7 % (0-4.5); HEMATOCRIT 28.1 % (32.4-45.2); HEMOGLOBIN 9.2 GM/dL (10.7-15.3); LYMPH % 27.1 % (8-40); MCHC 32.5 g/dl (32.0-36.0); MEAN CELL VOLUME 95.2 fl (80-96); MEAN PLT VOLUME 8.9 fl (7.5-11.1); MONO % 12.2 % (3.8-10.2); PLATELET COUNT 191 10^3/uL (134-434); RBC 2.95 M/mm3 (3.60-5.2); WHITE BLOOD COUNT 4.9 K/mm3 (4.0-10.0)
[2021-06-16 08:14] LABS: INR 1.02 (0.83-1.09); PROTHROMBIN TIME (PATIENT) 11.7 SEC (9.7-13.0)
[2021-06-16 08:17] LABS: ACTIVATED PTT 32.5 SECONDS (25.2-36.5)
[2021-06-16 08:21] LABS: CHLORIDE 101 mmol/L (98-107); SODIUM 137 mmol/L (136-145)
[2021-06-16 08:24] LABS: ALBUMIN 3.5 g/dl (3.4-5.0); ANION GAP 12 MMOL/L (8-16); CO2 24 mmol/L (21-32); GLUCOSE,RANDOM 165 mg/dL (74-106)
[2021-06-16 08:25] LABS: MAGNESIUM 2.9 mg/dL (1.8-2.4)
[2021-06-16 08:27] LABS: SGOT/AST 26 U/L (15-37); SGPT/ALT 27 U/L (13-61)
[2021-06-16 08:28] LABS: BILIRUBIN,TOTAL 0.3 mg/dL (0.2-1); TOT PROT 7.1 g/dl (6.4-8.2)
[2021-06-16 08:30] LABS: ALK PHOS 278 U/L (45-117)
[2021-06-16 08:35] LABS: BLOOD UREA NITROGEN 83.3 mg/dL (7-18); CREATININE 7.6 mg/dL (0.55-1.3)
[2021-06-16] MEDS: ISOSORBIDE MONONITRATE 60 MG TAB.SR.24H (FP) PO SCH (11:49)
[2021-06-16] MEDS: PANTOPRAZOLE 40 MG TABLET PO SCH (11:49)
[2021-06-16] MEDS: NIFEdipine E.R 60 MG TABLET PO SCH (11:49)
[2021-06-16] MEDS: CARVEDILOL 25 MG TABLET (FP) PO SCH (11:49)
[2021-06-16] MEDS ORDERED: ACETAMINOPHEN 1000 MG/100 ML BAG IVPB ONE (12:03)
[2021-06-16 14:25] VITALS: BP 185/78
[2021-06-16 15:21] VITALS: PULSE 60; TEMP 98.8
== END 2021-06-16 16:10 | disposition home or self-care (01) ==
LOC: JER 17:07 → UNDOADMOB 06-15 00:08 → JERBED 06-15 00:08 → INTOOBSV 06-15 00:08 → JERBED 06-15 01:27 → J4S 06-15 20:45
PROVIDERS: ADMIT Hospitalist; ATTEND Internal Medicine
PROC: 3E033NZ Introduction of Analgesics, Hypnotics, Sedatives into Peripheral Vein, Percutaneous Approach (ICD-10-PCS; principal; 2021-06-15)
PROC: 3E033GC Introduction of Other Therapeutic Substance into Peripheral Vein, Percutaneous Approach (ICD-10-PCS; 2021-06-15)
PROC: 3E023GC Introduction of Other Therapeutic Substance into Muscle, Percutaneous Approach (ICD-10-PCS; 2021-06-15)
PROC: 3E013VG Introduction of Insulin into Subcutaneous Tissue, Percutaneous Approach (ICD-10-PCS; 2021-06-15)
DX: I13.11 Hypertensive heart and chronic kidney disease without heart failure, with stage 5 chronic kidney disease, or end stage renal disease (principal); E11.40 Type 2 diabetes mellitus with diabetic neuropathy, unspecified; E11.22 Type 2 diabetes mellitus with diabetic chronic kidney disease; K21.9 Gastro-esophageal reflux disease without esophagitis; Z91.15 Patient's noncompliance with renal dialysis; J44.9 Chronic obstructive pulmonary disease, unspecified; R10.13 Epigastric pain; N18.6 End stage renal disease; Z99.2 Dependence on renal dialysis; Z88.8 Allergy status to other drugs, medicaments and biological substances
CPT/HCPCS: 36415; 71046-TC-FY; 80053; 82962; 83690; 83735; 84100; 84484; 85025; 85610; 85730; 86803; 87340; 93005; 93010; 96365; 96372; 96375; 96376; 99285-25; C9803; G0378; J1644; U0003; U0005

== ENCOUNTER 2021-08-27 12:08 | Inpatient (IN) | payer OTHER ==
[2021-08-27 12:26] VITALS: BMI 27.1
[2021-08-27] MEDS ORDERED: ACETAMINOPHEN 500 MG TABLET (FP) PO ONE (12:34)
[2021-08-27] MEDS ORDERED: ASPIRIN 81 MG CHEWABLE TABLETS PO ONE (12:34)
[2021-08-27] MEDS ORDERED: ACETAMINOPHEN 325 MG TABLET (FP) ONE (12:53)
[2021-08-27] MEDS ORDERED: ASPIRIN 81 MG CHEWABLE TABLETS ONE (12:53)
[2021-08-27 13:21] LABS: BASO % 1.4 % (0-2.0); EOS % 3.7 % (0-4.5); HEMATOCRIT 25.3 % (32.4-45.2); HEMOGLOBIN 8.6 GM/dL (10.7-15.3); MCH 32.4 pg (25.7-33.7); MEAN CELL VOLUME 95.5 fl (80-96); MEAN PLT VOLUME 9.8 fl (7.5-11.1); MONO % 8.6 % (3.8-10.2); NEUT % 65.3 % (42.8-82.8); PLATELET COUNT 165 10^3/uL (134-434); RBC 2.65 M/mm3 (3.60-5.2); RDW 15.2 % (11.6-15.6); WHITE BLOOD COUNT 3.7 K/mm3 (4.0-10.0)
[2021-08-27 13:28] LABS: INR 1.13 (0.83-1.09)
[2021-08-27 13:30] LABS: ACTIVATED PTT 33.9 SECONDS (25.2-36.5)
[2021-08-27 13:38] LABS: MAGNESIUM 2.5 mg/dL (1.8-2.4)
[2021-08-27 13:42] LABS: PHOSPHOROUS 4.5 mg/dL (2.5-4.9)
[2021-08-27] MEDS ORDERED: NITROGLYCERIN 2% OINTMENT - 1GM PACKET TD ONE ×3 (13:45→13:50)
[2021-08-27 13:51] LABS: CHLORIDE 100 mmol/L (98-107); SODIUM 134 mmol/L (136-145)
[2021-08-27 13:53] LABS: CALCIUM 8.9 mg/dL (8.5-10.1); GLUCOSE,RANDOM 222 mg/dL (74-106)
[2021-08-27 13:54] LABS: ALBUMIN 3.5 g/dl (3.4-5.0); BLOOD UREA NITROGEN 38.3 mg/dL (7-18); CO2 29 mmol/L (21-32)
[2021-08-27 13:57] LABS: CREATININE 5.6 mg/dL (0.55-1.3); SGOT/AST 78 U/L (15-37)
[2021-08-27 13:58] LABS: BILIRUBIN,TOTAL 0.7 mg/dL (0.2-1)
[2021-08-27 13:59] LABS: TOT PROT 7.6 g/dl (6.4-8.2)
[2021-08-27 14:00] LABS: ALK PHOS 394 U/L (45-117)
[2021-08-27 14:02] LABS: N-TERMINAL BNP 30376.9 pg/ml (5-125)
[2021-08-27 14:04] LABS: ANION GAP 6 MMOL/L (8-16); SGPT/ALT 55 U/L (13-61)
[2021-08-27 15:19] LABS: ALBUMIN 3.5 g/dl (3.4-5.0); CALCIUM 9.1 mg/dL (8.5-10.1)
[2021-08-27 15:20] LABS: BLOOD UREA NITROGEN 37.3 mg/dL (7-18)
[2021-08-27 15:22] LABS: CREATININE 5.5 mg/dL (0.55-1.3)
[2021-08-27 15:24] LABS: BILIRUBIN,TOTAL 0.6 mg/dL (0.2-1)
[2021-08-27] MEDS ORDERED: SODIUM CHLORIDE 250 ML IV PRN (18:22)
[2021-08-27] MEDS ORDERED: EPOETIN ALFA-EPBX 4,000 UNIT/ML VIAL SQ ONE (18:30)
[2021-08-27] MEDS ORDERED: AZITHROMYCIN IVPB 500 MG in DEXTROSE 5%-WATER - 250 ML IVPB SCH (21:15)
[2021-08-27] MEDS: INSULIN SLIDING SCALE (NOVOLOG) 1 VIAL SQ SCH (21:46)
[2021-08-27] MEDS ORDERED: cefTRIAXone SODIUM 1 GM VIAL ONE (21:47)
[2021-08-27] MEDS ORDERED: DEXTROSE 5%-WATER - 50 ML IVPB ONE (21:47)
[2021-08-27] MEDS: CEFTRIAXONE 1 GM in DEXTROSE 5%-WATER - 50 ML IVPB SCH (21:58)
[2021-08-28] MEDS: INSULIN SLIDING SCALE (NOVOLOG) 1 VIAL SQ SCH ×3 (06:02→12:05)
[2021-08-28 07:23] LABS: ALBUMIN 3.4 g/dl (3.4-5.0); BLOOD UREA NITROGEN 25.1 mg/dL (7-18); CALCIUM 8.9 mg/dL (8.5-10.1); MAGNESIUM 2.3 mg/dL (1.8-2.4)
[2021-08-28 07:25] LABS: CREATININE 4.3 mg/dL (0.55-1.3)
[2021-08-28 07:26] LABS: PHOSPHOROUS 4.4 mg/dL (2.5-4.9)
[2021-08-28 07:27] LABS: BILIRUBIN,TOTAL 0.8 mg/dL (0.2-1)
[2021-08-28 07:28] VITALS: BP 182/85; PULSE 71; TEMP 98.6
[2021-08-28 07:49] LABS: BASO % 1.7 % (0-2.0); EOS % 3.3 % (0-4.5); HEMATOCRIT 25.3 % (32.4-45.2); HEMOGLOBIN 8.4 GM/dL (10.7-15.3); LYMPH % 19.6 % (8-40); MCH 32.1 pg (25.7-33.7); MCHC 33.1 g/dl (32.0-36.0); MEAN CELL VOLUME 96.9 fl (80-96); MEAN PLT VOLUME 9.7 fl (7.5-11.1); MONO % 7.9 % (3.8-10.2); NEUT % 67.5 % (42.8-82.8); PLATELET COUNT 150 10^3/uL (134-434); RBC 2.61 M/mm3 (3.60-5.2)
[2021-08-28] MEDS ORDERED: cefTRIAXone SODIUM 1 GM VIAL ONE (09:31)
[2021-08-28] MEDS ORDERED: DEXTROSE 5%-WATER - 50 ML IVPB ONE (09:32)
[2021-08-28] MEDS ORDERED: NIFEdipine E.R. 90 MG TABLET PO SCH (10:00)
[2021-08-28] MEDS ORDERED: LOSARTAN POTASSIUM 50 MG TABLET PO SCH (10:00)
[2021-08-28] MEDS: CEFTRIAXONE 1 GM in DEXTROSE 5%-WATER - 50 ML IVPB SCH (10:04)
[2021-08-28] MEDS ORDERED: CARVEDILOL 25 MG TABLET (FP) PO SCH (12:30)
[2021-08-28] MEDS ORDERED: cloNIDine-TTS 0.3 MG /24 HRS PATCH.TDWK TD SCH (12:30)
[2021-08-28] MEDS ORDERED: ALBUTEROL SO4 HFA INHALER IH PRN (12:44)
[2021-08-28] MEDS ORDERED: ALBUTEROL SO4 0.042% IH SOL 1.25 MG/3 ML VIAL.NEB NEB PRN (12:46)
[2021-08-28] MEDS ORDERED: ALBUTEROL SO4 0.083% IH SOL 2.5 MG/3 ML VIAL.NEB. NEB ONE (12:54)
[2021-08-28] MEDS ORDERED: hydrALAZINE HCL 50 MG TABLET (FP) PO SCH (14:00)
== END 2021-08-28 14:00 | disposition left against medical advice (07) | DRG 444 ==
LOC: JER 12:08 → JERBED 14:08 → J4W 17:37
PROVIDERS: ADMIT Internal Medicine; ATTEND Internal Medicine
DX: K81.0 Acute cholecystitis (principal); N18.6 End stage renal disease; I50.33 Acute on chronic diastolic (congestive) heart failure; I13.2 Hypertensive heart and chronic kidney disease with heart failure and with stage 5 chronic kidney disease, or end stage renal disease; I50.32 Chronic diastolic (congestive) heart failure; E11.40 Type 2 diabetes mellitus with diabetic neuropathy, unspecified; J44.9 Chronic obstructive pulmonary disease, unspecified; E11.22 Type 2 diabetes mellitus with diabetic chronic kidney disease; Z99.2 Dependence on renal dialysis; F32.A Depression, unspecified; F41.9 Anxiety disorder, unspecified; K21.9 Gastro-esophageal reflux disease without esophagitis; Z79.4 Long term (current) use of insulin; D64.9 Anemia, unspecified; R16.0 Hepatomegaly, not elsewhere classified; Z53.29 Procedure and treatment not carried out because of patient's decision for other reasons
CPT/HCPCS: 36415; 71045-TC-FY; 76705-TC; 80053; 82962; 83735; 83880; 84100; 84484; 85025; 85610; 85730; 86803; 87340; 93005; 93010; 94640; 94660; 99285-25; C9803-CS; Q5106; U0003; U0005

== ENCOUNTER 2021-10-07 11:04 | Observation (INO) | payer OTHER ==
[2021-10-07 11:34] VITALS: BMI 18.7
[2021-10-07] MEDS ORDERED: ONDANSETRON 4 MG/2 ML VIAL IVPB ONE ×2 (13:21→13:30)
[2021-10-07] MEDS ORDERED: ACETAMINOPHEN 1000 MG/100 ML BAG IVPB ONE (13:21)
[2021-10-07] MEDS ORDERED: FAMOTIDINE 20 MG/50 ML IVPB 20 MG/50 ML MG IVPB ONE ×2 (13:21→14:38)
[2021-10-07] MEDS ORDERED: ACETAMINOPHEN INJECTION 100 ML IVPB ONE (14:37)
[2021-10-07] MEDS ORDERED: ONDANSETRON 4 MG/2 ML VIAL ONE (14:38)
[2021-10-07 14:41] LABS: BASO % 3.2 % (0-2.0); EOS % 3.8 % (0-4.5); HEMATOCRIT 29.1 % (32.4-45.2); HEMOGLOBIN 9.9 GM/dL (10.7-15.3); LYMPH % 16.8 % (8-40); MCH 31.6 pg (25.7-33.7); MCHC 33.9 g/dl (32.0-36.0); MEAN CELL VOLUME 93.1 fl (80-96); MEAN PLT VOLUME 9.1 fl (7.5-11.1); MONO % 8.7 % (3.8-10.2); NEUT % 67.5 % (42.8-82.8); PLATELET COUNT 240 10^3/uL (134-434); RBC 3.12 M/mm3 (3.60-5.2); RDW 15.7 % (11.6-15.6); WHITE BLOOD COUNT 4.9 K/mm3 (4.0-10.0)
[2021-10-07 15:08] LABS: CHLORIDE 96 mmol/L (98-107); SODIUM 135 mmol/L (136-145)
[2021-10-07 15:10] LABS: CALCIUM 9.6 mg/dL (8.5-10.1)
[2021-10-07 15:11] LABS: ALBUMIN 3.5 g/dl (3.4-5.0); BLOOD UREA NITROGEN 26.5 mg/dL (7-18); GLUCOSE,RANDOM 148 mg/dL (74-106); LIPASE 69 U/L (73-393); MAGNESIUM 2.7 mg/dL (1.8-2.4)
[2021-10-07 15:13] LABS: ANION GAP 12 MMOL/L (8-16); CO2 28 mmol/L (21-32)
[2021-10-07 15:14] LABS: CREATININE 4.7 mg/dL (0.55-1.3); SGOT/AST 33 U/L (15-37)
[2021-10-07 15:15] LABS: BILIRUBIN,TOTAL 0.6 mg/dL (0.2-1)
[2021-10-07 15:16] LABS: ALK PHOS 468 U/L (45-117)
[2021-10-07 15:17] LABS: SGPT/ALT 37 U/L (13-61)
[2021-10-07 15:19] LABS: N-TERMINAL BNP 34469.5 pg/ml (5-125)
[2021-10-07] MEDS ORDERED: hydrALAZINE HCL 50 MG TABLET (FP) PO ONE (15:45)
[2021-10-07] MEDS ORDERED: FUROSEMIDE 40 MG TABLET (FP) PO ONE (15:45)
[2021-10-07] MEDS ORDERED: hydrALAZINE HCL 50 MG TABLET (FP) ONE (15:50)
[2021-10-07] MEDS ORDERED: FUROSEMIDE 40 MG TABLET (FP) ONE (15:50)
[2021-10-07] MEDS ORDERED: NIFEdipine 10 MG CAPSULE (FP) PO ONE (17:47)
[2021-10-07] MEDS ORDERED: LABETALOL HCL 100 MG TABLET (FP) PO ONE (17:47)
[2021-10-07] MEDS ORDERED: NIFEdipine E.R. 90 MG TABLET PO ONE (19:00)
[2021-10-07] MEDS ORDERED: LABETALOL HCL 100 MG TABLET (FP) ONE (19:39)
[2021-10-07] MEDS ORDERED: NIFEdipine E.R. 30 MG TABLET ONE (19:39)
[2021-10-07] MEDS ORDERED: NIFEdipine E.R 60 MG TABLET ONE (19:40)
[2021-10-07] MEDS ORDERED: ONDANSETRON 4 MG TABLET PO ONE (20:33)
[2021-10-07] MEDS ORDERED: SUCRALFATE 1 GM TABLET (FP) PO ONE (20:36)
[2021-10-07] MEDS ORDERED: ONDANSETRON *ODT* 4 MG TABLET ONE (21:11)
[2021-10-07] MEDS ORDERED: SUCRALFATE 1 GM TABLET (FP) ONE (21:11)
[2021-10-08] MEDS ORDERED: TRIMETHOBENZAMIDE HCL 200MG/2ML INJ IM PRN (01:07)
[2021-10-08] MEDS ORDERED: hydrALAZINE HCL 20 MG/ML VIAL IVPUSH ONE ×2 (04:46→06:16)
[2021-10-08] MEDS: HEPARIN NA (PORCINE) 5,000 UNITS/ML 1ML VIAL SQ SCH ×2 (05:45→14:30)
[2021-10-08] MEDS ORDERED: HEPARIN NA (PORCINE) 5,000 UNITS/ML 1ML VIAL ONE (05:50)
[2021-10-08] MEDS ORDERED: ALBUTEROL SO4 2.5/IPRATROPIUM 0.5 INH SOL 3 ML VIAL.NEB. NEB PRN (06:13)
[2021-10-08] MEDS ORDERED: PATIENT'S OWN MEDICATION (NON-FORMULARY) (Hydralazine Hcl [Hydralazine Hcl] 100 MG Tablet) PO SCH (06:15)
[2021-10-08 06:51] LABS: EOS % 5.2 % (0-4.5); HEMATOCRIT 30.3 % (32.4-45.2); HEMOGLOBIN 10.1 GM/dL (10.7-15.3); LYMPH % 18.3 % (8-40); MCH 31.4 pg (25.7-33.7); MCHC 33.3 g/dl (32.0-36.0); MEAN CELL VOLUME 94.4 fl (80-96); MEAN PLT VOLUME 9.2 fl (7.5-11.1); MONO % 11.3 % (3.8-10.2); NEUT % 63.2 % (42.8-82.8); PLATELET COUNT 220 10^3/uL (134-434); RBC 3.21 M/mm3 (3.60-5.2); RDW 15.6 % (11.6-15.6); WHITE BLOOD COUNT 4.7 K/mm3 (4.0-10.0)
[2021-10-08 07:06] LABS: ALBUMIN 3.2 g/dl (3.4-5.0); CALCIUM 8.9 mg/dL (8.5-10.1)
[2021-10-08 07:07] LABS: BLOOD UREA NITROGEN 36.5 mg/dL (7-18)
[2021-10-08 07:09] LABS: MAGNESIUM 3.1 mg/dL (1.8-2.4)
[2021-10-08 07:10] LABS: PHOSPHOROUS 4.5 mg/dL (2.5-4.9)
[2021-10-08 07:11] LABS: BILIRUBIN,TOTAL 0.4 mg/dL (0.2-1)
[2021-10-08 07:12] LABS: CREATININE 5.8 mg/dL (0.55-1.3)
[2021-10-08 07:13] LABS: TOT PROT 7.2 g/dl (6.4-8.2)
[2021-10-08] MEDS ORDERED: hydrALAZINE HCL 20 MG/ML VIAL ONE (07:29)
[2021-10-08] MEDS: INSULIN SLIDING SCALE (NOVOLOG) 1 VIAL SQ SCH ×3 (08:15→17:30)
[2021-10-08] MEDS ORDERED: hydrALAZINE HCL 50 MG TABLET (FP) ONE (08:17)
[2021-10-08] MEDS: hydrALAZINE HCL 50 MG TABLET (FP) PO SCH ×2 (08:20→14:40)
[2021-10-08 08:21] LABS: RETICULOCYTES 1.25 % (0.5-1.5)
[2021-10-08] MEDS ORDERED: ISOSORBIDE MONONITRATE 60 MG TAB.SR.24H (FP) PO ONE (09:24)
[2021-10-08] MEDS ORDERED: POLYETHYLENE GLYCOL (HEALTHYLAX) 3350 17 GM PACKET ONE (09:24)
[2021-10-08] MEDS ORDERED: NIFEdipine E.R. 30 MG TABLET ONE (09:24)
[2021-10-08] MEDS ORDERED: PANTOPRAZOLE SODIUM 40 MG VIAL ONE (09:25)
[2021-10-08] MEDS ORDERED: NICOTINE 14 MG/24 HOURS TOPICAL PATCH TD ONE (09:44)
[2021-10-08] MEDS ORDERED: POLYETHYLENE GLYCOL (HEALTHYLAX) 3350 17 GM PACKET PO SCH (10:00)
[2021-10-08] MEDS ORDERED: BUDESONIDE/FORMETEROL FUMARATE 160/4.5 mcg INHALER IH SCH (10:00)
[2021-10-08] MEDS ORDERED: NICOTINE 14 MG/24 HOURS TOPICAL PATCH TD SCH (10:00)
[2021-10-08] MEDS ORDERED: ISOSORBIDE MONONITRATE 60 MG TAB.SR.24H (FP) PO SCH (10:00)
[2021-10-08] MEDS ORDERED: NIFEdipine E.R. 30 MG TABLET PO SCH (10:00)
[2021-10-08] MEDS ORDERED: PANTOPRAZOLE SODIUM 40 MG VIAL IVPUSH SCH (10:00)
[2021-10-08] MEDS ORDERED: DEXTROSE 50%-WATER - 25 GM/50 ML VIAL IVPUSH PRN (11:00)
[2021-10-08] MEDS ORDERED: DEXTROSE 50%-WATER 25 GM/50 ML DISP.SYRIN ONE (11:47)
[2021-10-08] MEDS ORDERED: SODIUM CHLORIDE 250 ML IV PRN (14:45)
[2021-10-08] MEDS ORDERED: EPOETIN ALFA-EPBX 3,000 UNIT/ML VIAL IVPUSH ONE (15:30)
[2021-10-08 17:54] VITALS: PULSE 72
[2021-10-08 18:55] VITALS: TEMP 99.2
[2021-10-08 19:22] VITALS: BP 163/66
[2021-10-14] MEDS ORDERED: cloNIDine-TTS 0.2 MG/24 HOURS PATCH.TDWK TD ONE (17:47)
== END 2021-10-08 21:27 | disposition home or self-care (01) ==
LOC: JER 11:04 → UNDOADMOB 18:58 → JERBED 18:58 → INTOOBSV 18:58 → JERBED 10-08 13:16
PROVIDERS: ADMIT Internal Medicine; ATTEND Internal Medicine
PROC: 3E033NZ Introduction of Analgesics, Hypnotics, Sedatives into Peripheral Vein, Percutaneous Approach (ICD-10-PCS; principal; 2021-10-08)
PROC: 3E0337Z Introduction of Electrolytic and Water Balance Substance into Peripheral Vein, Percutaneous Approach (ICD-10-PCS; 2021-10-08)
PROC: 3E033GC Introduction of Other Therapeutic Substance into Peripheral Vein, Percutaneous Approach (ICD-10-PCS; 2021-10-08)
DX: I13.2 Hypertensive heart and chronic kidney disease with heart failure and with stage 5 chronic kidney disease, or end stage renal disease (principal); I50.30 Unspecified diastolic (congestive) heart failure; Z79.4 Long term (current) use of insulin; F41.8 Other specified anxiety disorders; K21.9 Gastro-esophageal reflux disease without esophagitis; E11.22 Type 2 diabetes mellitus with diabetic chronic kidney disease; K31.84 Gastroparesis; Z99.2 Dependence on renal dialysis; Z88.8 Allergy status to other drugs, medicaments and biological substances; Z91.09 Other allergy status, other than to drugs and biological substances; Z89.422 Acquired absence of other left toe(s); R63.4 Abnormal weight loss; F17.210 Nicotine dependence, cigarettes, uncomplicated
CPT/HCPCS: 0241U-QW; 36415; 71045-TC-FY; 74176-TC; 78226-TC; 80053; 80061; 82272; 82728; 82962; 83540; 83550; 83605; 83690; 83735; 83880; 84100; 84443; 84484; 85025; 85045; 86803; 86850; 86900; 86901; 87340; 93005; 93010; 96361; 96365; 96375; 96376; 99285-25; A9537; G0378; J1644; Q5106

== ENCOUNTER 2021-12-29 14:35 | Inpatient (IN) | payer OTHER ==
[2021-12-29 14:43] VITALS: BMI 25.8
[2021-12-29 16:23] LABS: VENOUS BASE EXCESS 2.9 mmol/L (-2-2); VENOUS O2 SATURATION 75.4 % (70-80); VENOUS PCO2 40.2 mmHg (38-52); VENOUS PH 7.447 (7.310-7.410)
[2021-12-29 16:28] LABS: BASO % 1.7 % (0-2.0); EOS % 2.9 % (0-4.5); HEMATOCRIT 34.1 % (32.4-45.2); HEMOGLOBIN 11.4 GM/dL (10.7-15.3); LYMPH % 22.9 % (8-40); MCH 32.1 pg (25.7-33.7); MCHC 33.3 g/dl (32.0-36.0); MEAN CELL VOLUME 96.3 fl (80-96); MEAN PLT VOLUME 9.5 fl (7.5-11.1); MONO % 12.9 % (3.8-10.2); NEUT % 59.6 % (42.8-82.8); PLATELET COUNT 146 10^3/uL (134-434); RBC 3.54 M/mm3 (3.60-5.2); WHITE BLOOD COUNT 3.4 K/mm3 (4.0-10.0)
[2021-12-29 16:39] LABS: CHLORIDE 98 mmol/L (98-107); SODIUM 136 mmol/L (136-145)
[2021-12-29 16:41] LABS: ALBUMIN 3.4 g/dl (3.4-5.0); ANION GAP 9 MMOL/L (8-16); BLOOD UREA NITROGEN 20.9 mg/dL (7-18); CALCIUM 8.8 mg/dL (8.5-10.1); CO2 28 mmol/L (21-32); GLUCOSE,RANDOM 150 mg/dL (74-106); MAGNESIUM 2.3 mg/dL (1.8-2.4)
[2021-12-29 16:44] LABS: CREATININE 3.6 mg/dL (0.55-1.3); SGOT/AST 47 U/L (15-37); SGPT/ALT 37 U/L (13-61)
[2021-12-29 16:46] LABS: BILIRUBIN,TOTAL 0.7 mg/dL (0.2-1); TOT PROT 7.7 g/dl (6.4-8.2)
[2021-12-29 16:47] LABS: ALK PHOS 576 U/L (45-117)
[2021-12-29] MEDS ORDERED: MAGNESIUM SULF 50% (8.12 MEQ/2 ML-1 GM VIAL) IVPB ONE (17:55)
[2021-12-29 18:05] LABS: CALCIUM 9.1 mg/dL (8.5-10.1)
[2021-12-29 18:09] LABS: CREATININE 3.8 mg/dL (0.55-1.3)
[2021-12-29] MEDS ORDERED: POTASSIUM CHLORIDE TABS 10 MEQ TABLET.ER (FP) PO ONE (18:37)
[2021-12-29] MEDS ORDERED: POTASSIUM CHLORIDE TABS 10 MEQ TABLET.ER (FP) ONE (19:23)
[2021-12-29] MEDS ORDERED: MAGNESIUM SULFATE IN WATER 2 GM/50 ML IVPB IVPB ONE (19:23)
[2021-12-29] MEDS ORDERED: LABETALOL HCL 100 MG TABLET (FP) PO SCH (22:45)
[2021-12-30] MEDS ORDERED: LABETALOL HCL 100 MG TABLET (FP) ONE ×2 (00:42→21:56)
[2021-12-30] MEDS ORDERED: HEPARIN NA (PORCINE) 5,000 UNITS/ML 1ML VIAL ONE ×3 (07:31→21:57)
[2021-12-30 07:33] LABS: BASO % 1.3 % (0-2.0); EOS % 2.2 % (0-4.5); HEMATOCRIT 35.1 % (32.4-45.2); HEMOGLOBIN 11.8 GM/dL (10.7-15.3); LYMPH % 15.6 % (8-40); MCH 32.5 pg (25.7-33.7); MCHC 33.7 g/dl (32.0-36.0); MEAN CELL VOLUME 96.6 fl (80-96); MONO % 10.9 % (3.8-10.2); PLATELET COUNT 136 10^3/uL (134-434); RBC 3.63 M/mm3 (3.60-5.2); RDW 16.8 % (11.6-15.6); WHITE BLOOD COUNT 4.3 K/mm3 (4.0-10.0)
[2021-12-30] MEDS: HEPARIN NA (PORCINE) 5,000 UNITS/ML 1ML VIAL SQ SCH ×3 (07:37→22:05)
[2021-12-30] MEDS: NIFEdipine E.R 60 MG TABLET PO SCH (07:37)
[2021-12-30] MEDS ORDERED: LABETALOL HCL 100 MG TABLET (FP) PO SCH (07:45)
[2021-12-30 07:55] LABS: ALBUMIN 3.6 g/dl (3.4-5.0); CALCIUM 9.2 mg/dL (8.5-10.1)
[2021-12-30 07:56] LABS: BLOOD UREA NITROGEN 30.7 mg/dL (7-18); MAGNESIUM 2.8 mg/dL (1.8-2.4)
[2021-12-30 07:58] LABS: CREATININE 4.8 mg/dL (0.55-1.3)
[2021-12-30 07:59] LABS: PHOSPHOROUS 4.1 mg/dL (2.5-4.9)
[2021-12-30 08:00] LABS: BILIRUBIN,TOTAL 0.7 mg/dL (0.2-1); TOT PROT 7.8 g/dl (6.4-8.2)
[2021-12-30] MEDS: INSULIN SLIDING SCALE (NOVOLOG) 1 VIAL SQ SCH ×4 (08:43→22:18)
[2021-12-30] MEDS ORDERED: NICOTINE POLACRILEX 2 MG GUM BUC PRN (09:02)
[2021-12-30] MEDS ORDERED: ALBUTEROL SO4 HFA INHALER IH PRN (09:02)
[2021-12-30] MEDS ORDERED: NICOTINE 14 MG/24 HOURS TOPICAL PATCH TD ONE (09:08)
[2021-12-30] MEDS ORDERED: ISOSORBIDE MONONITRATE 30 MG TAB.SR.24H (FP) PO ONE (09:08)
[2021-12-30] MEDS: NICOTINE 14 MG/24 HOURS TOPICAL PATCH TD SCH (09:16)
[2021-12-30] MEDS: ISOSORBIDE MONONITRATE 30 MG TAB.SR.24H (FP) PO SCH (09:16)
[2021-12-30] MEDS: KETOCONAZOLE 2% TOPICAL CREAM 15 GM TUBE TP SCH (09:52)
[2021-12-30] MEDS ORDERED: NIFEdipine E.R 60 MG TABLET PO SCH (10:00)
[2021-12-30] MEDS ORDERED: SODIUM CHLORIDE 250 ML IV PRN ×2 (11:26→11:27)
[2021-12-30] MEDS ORDERED: ALBUTEROL SO4 2.5/IPRATROPIUM 0.5 INH SOL 3 ML VIAL.NEB. NEB PRN (17:43)
[2021-12-30] MEDS ORDERED: busPIRone HCL 5 MG TABLET ONE (21:56)
[2021-12-30] MEDS ORDERED: MIRTAZAPINE 15 MG TABLET (FP) ONE (21:57)
[2021-12-30] MEDS ORDERED: hydrALAZINE HCL 50 MG TABLET (FP) ONE (21:57)
[2021-12-30] MEDS: busPIRone HCL 10 MG TABLET (FP) PO SCH (22:05)
[2021-12-30] MEDS: LABETALOL HCL 100 MG TABLET (FP) PO SCH (22:05)
[2021-12-30] MEDS: hydrALAZINE HCL 50 MG TABLET (FP) PO SCH (22:05)
[2021-12-30] MEDS: MIRTAZAPINE 15 MG TABLET (FP) PO SCH (22:05)
[2021-12-30] MEDS: BUDESONIDE/FORMETEROL FUMARATE 160/4.5 mcg INHALER IH SCH (22:06)
[2021-12-31] MEDS ORDERED: hydrALAZINE HCL 50 MG TABLET (FP) ONE ×2 (06:45→15:00)
[2021-12-31] MEDS ORDERED: HEPARIN NA (PORCINE) 5,000 UNITS/ML 1ML VIAL ONE ×2 (06:46→15:00)
[2021-12-31] MEDS: HEPARIN NA (PORCINE) 5,000 UNITS/ML 1ML VIAL SQ SCH ×3 (06:50→22:12)
[2021-12-31] MEDS: hydrALAZINE HCL 50 MG TABLET (FP) PO SCH ×3 (06:50→22:13)
[2021-12-31 06:52] LABS: HEMATOCRIT 35.3 % (32.4-45.2); HEMOGLOBIN 11.6 GM/dL (10.7-15.3); MCH 31.6 pg (25.7-33.7); MCHC 32.7 g/dl (32.0-36.0); MEAN CELL VOLUME 96.6 fl (80-96); MEAN PLT VOLUME 9.6 fl (7.5-11.1); PLATELET COUNT 136 10^3/uL (134-434); RBC 3.66 M/mm3 (3.60-5.2)
[2021-12-31 07:09] LABS: ALBUMIN 3.4 g/dl (3.4-5.0); CALCIUM 8.6 mg/dL (8.5-10.1); MAGNESIUM 2.5 mg/dL (1.8-2.4)
[2021-12-31 07:13] LABS: CREATININE 6.3 mg/dL (0.55-1.3); PHOSPHOROUS 5.5 mg/dL (2.5-4.9)
[2021-12-31 07:14] LABS: BILIRUBIN,TOTAL 0.8 mg/dL (0.2-1); TOT PROT 7.5 g/dl (6.4-8.2)
[2021-12-31] MEDS: INSULIN SLIDING SCALE (NOVOLOG) 1 VIAL SQ SCH ×4 (08:50→23:31)
[2021-12-31] MEDS: BUDESONIDE/FORMETEROL FUMARATE 160/4.5 mcg INHALER IH SCH (09:15)
[2021-12-31] MEDS: NICOTINE 14 MG/24 HOURS TOPICAL PATCH TD SCH (09:20)
[2021-12-31] MEDS ORDERED: FAMOTIDINE 10 MG TABLET ONE (09:31)
[2021-12-31] MEDS ORDERED: LOSARTAN POTASSIUM 50 MG TABLET ONE (09:51)
[2021-12-31] MEDS ORDERED: ISOSORBIDE MONONITRATE 30 MG TAB.SR.24H (FP) PO ONE (09:51)
[2021-12-31] MEDS ORDERED: LABETALOL HCL 100 MG TABLET (FP) ONE (09:51)
[2021-12-31] MEDS ORDERED: NIFEdipine E.R 60 MG TABLET ONE (09:52)
[2021-12-31] MEDS: KETOCONAZOLE 2% TOPICAL CREAM 15 GM TUBE TP SCH (09:53)
[2021-12-31] MEDS: FAMOTIDINE 10 MG TABLET PO SCH (09:54)
[2021-12-31] MEDS: LIPASE/PROTEASE/AMYLASE 36,000 UNIT CAPSULE PO SCH ×3 (09:54→18:00)
[2021-12-31] MEDS: busPIRone HCL 10 MG TABLET (FP) PO SCH ×2 (09:54→22:12)
[2021-12-31] MEDS ORDERED: ONDANSETRON 4 MG TABLET PO SCH (10:00)
[2021-12-31] MEDS ORDERED: PATIENT'S OWN MEDICATION (NON-FORMULARY) (Famotidine [Pepcid] 40 MG Tablet) PO SCH (10:00)
[2021-12-31] MEDS: NIFEdipine E.R 60 MG TABLET PO SCH (12:43)
[2021-12-31] MEDS: LOSARTAN POTASSIUM 50 MG TABLET PO SCH (14:10)
[2021-12-31] MEDS: LABETALOL HCL 100 MG TABLET (FP) PO SCH ×2 (14:10→22:13)
[2021-12-31] MEDS: ISOSORBIDE MONONITRATE 30 MG TAB.SR.24H (FP) PO SCH (15:10)
[2021-12-31] MEDS: POLYETHYLENE GLYCOL (HEALTHYLAX) 3350 17 GM PACKET PO SCH (16:30)
[2021-12-31] MEDS: DOCUSATE SODIUM 100 MG CAPSULE (FP) PO SCH (16:30)
[2021-12-31] MEDS: MIRTAZAPINE 15 MG TABLET (FP) PO SCH (22:14)
[2021-12-31] MEDS: SENNOSIDES 8.6MG TABLET (FP) PO SCH (22:14)
[2022-01-01] MEDS: hydrALAZINE HCL 50 MG TABLET (FP) PO SCH ×3 (06:12→22:07)
[2022-01-01] MEDS: HEPARIN NA (PORCINE) 5,000 UNITS/ML 1ML VIAL SQ SCH ×3 (06:13→22:05)
[2022-01-01] MEDS: BUDESONIDE/FORMETEROL FUMARATE 160/4.5 mcg INHALER IH SCH ×3 (06:13→22:16)
[2022-01-01] MEDS: INSULIN SLIDING SCALE (NOVOLOG) 1 VIAL SQ SCH ×4 (06:14→22:07)
[2022-01-01 08:23] LABS: HEMATOCRIT 35.8 % (32.4-45.2); HEMOGLOBIN 11.6 GM/dL (10.7-15.3); MCH 31.4 pg (25.7-33.7); MCHC 32.5 g/dl (32.0-36.0); MEAN CELL VOLUME 96.6 fl (80-96); MEAN PLT VOLUME 9.8 fl (7.5-11.1); PLATELET COUNT 143 10^3/uL (134-434); RBC 3.71 M/mm3 (3.60-5.2); RDW 16.4 % (11.6-15.6); WHITE BLOOD COUNT 4.2 K/mm3 (4.0-10.0)
[2022-01-01 08:45] LABS: ALBUMIN 3.5 g/dl (3.4-5.0); MAGNESIUM 2.1 mg/dL (1.8-2.4)
[2022-01-01 08:46] LABS: BLOOD UREA NITROGEN 44.8 mg/dL (7-18)
[2022-01-01 08:48] LABS: CREATININE 5.2 mg/dL (0.55-1.3)
[2022-01-01 08:50] LABS: PHOSPHOROUS 4.9 mg/dL (2.5-4.9)
[2022-01-01] MEDS: LIPASE/PROTEASE/AMYLASE 36,000 UNIT CAPSULE PO SCH ×3 (08:50→17:21)
[2022-01-01] MEDS: LOSARTAN POTASSIUM 50 MG TABLET PO SCH ×2 (08:50→09:04)
[2022-01-01] MEDS: LABETALOL HCL 100 MG TABLET (FP) PO SCH ×2 (08:51→09:05)
[2022-01-01] MEDS: ISOSORBIDE MONONITRATE 30 MG TAB.SR.24H (FP) PO SCH ×2 (08:51→09:04)
[2022-01-01] MEDS: DOCUSATE SODIUM 100 MG CAPSULE (FP) PO SCH ×2 (08:52→09:04)
[2022-01-01] MEDS: POLYETHYLENE GLYCOL (HEALTHYLAX) 3350 17 GM PACKET PO SCH ×2 (08:52→09:04)
[2022-01-01] MEDS: FAMOTIDINE 10 MG TABLET PO SCH ×2 (08:52→09:03)
[2022-01-01] MEDS: NIFEdipine E.R 60 MG TABLET PO SCH ×2 (08:52→09:05)
[2022-01-01] MEDS: busPIRone HCL 10 MG TABLET (FP) PO SCH ×3 (08:52→22:06)
[2022-01-01] MEDS: NICOTINE 14 MG/24 HOURS TOPICAL PATCH TD SCH (09:05)
[2022-01-01] MEDS: KETOCONAZOLE 2% TOPICAL CREAM 15 GM TUBE TP SCH (09:49)
[2022-01-01] MEDS ORDERED: NIFEdipine E.R. 30 MG TABLET PO ONE (13:30)
[2022-01-01] MEDS: CARVEDILOL 25 MG TABLET (FP) PO SCH ×2 (14:50→22:06)
[2022-01-01] MEDS: SENNOSIDES 8.6MG TABLET (FP) PO SCH (22:06)
[2022-01-01] MEDS: MIRTAZAPINE 15 MG TABLET (FP) PO SCH (22:16)
[2022-01-02] MEDS: HEPARIN NA (PORCINE) 5,000 UNITS/ML 1ML VIAL SQ SCH ×3 (05:50→21:38)
[2022-01-02] MEDS: hydrALAZINE HCL 50 MG TABLET (FP) PO SCH ×3 (05:50→21:38)
[2022-01-02] MEDS: INSULIN SLIDING SCALE (NOVOLOG) 1 VIAL SQ SCH ×4 (06:58→21:43)
[2022-01-02 07:29] LABS: BASO % 1.5 % (0-2.0); EOS % 3.4 % (0-4.5); HEMATOCRIT 35.9 % (32.4-45.2); HEMOGLOBIN 11.6 GM/dL (10.7-15.3); LYMPH % 20.1 % (8-40); MCH 31.4 pg (25.7-33.7); MCHC 32.4 g/dl (32.0-36.0); MEAN CELL VOLUME 96.9 fl (80-96); MEAN PLT VOLUME 10.1 fl (7.5-11.1); MONO % 11.3 % (3.8-10.2); NEUT % 63.7 % (42.8-82.8); PLATELET COUNT 129 10^3/uL (134-434); RDW 15.9 % (11.6-15.6); WHITE BLOOD COUNT 3.6 K/mm3 (4.0-10.0)
[2022-01-02 07:40] LABS: CALCIUM 9.1 mg/dL (8.5-10.1)
[2022-01-02 07:41] LABS: ALBUMIN 3.4 g/dl (3.4-5.0); MAGNESIUM 2.4 mg/dL (1.8-2.4)
[2022-01-02 07:44] LABS: PHOSPHOROUS 5.6 mg/dL (2.5-4.9)
[2022-01-02 07:45] LABS: BILIRUBIN,TOTAL 0.9 mg/dL (0.2-1); TOT PROT 7.5 g/dl (6.4-8.2)
[2022-01-02] MEDS: LIPASE/PROTEASE/AMYLASE 36,000 UNIT CAPSULE PO SCH ×3 (07:48→16:56)
[2022-01-02] MEDS: LOSARTAN POTASSIUM 50 MG TABLET PO SCH (09:04)
[2022-01-02] MEDS: busPIRone HCL 10 MG TABLET (FP) PO SCH ×2 (09:05→21:38)
[2022-01-02] MEDS: FAMOTIDINE 10 MG TABLET PO SCH (09:05)
[2022-01-02] MEDS: CARVEDILOL 25 MG TABLET (FP) PO SCH ×2 (09:05→21:38)
[2022-01-02] MEDS: ISOSORBIDE MONONITRATE 30 MG TAB.SR.24H (FP) PO SCH (09:05)
[2022-01-02] MEDS: DOCUSATE SODIUM 100 MG CAPSULE (FP) PO SCH (09:05)
[2022-01-02] MEDS: POLYETHYLENE GLYCOL (HEALTHYLAX) 3350 17 GM PACKET PO SCH (09:05)
[2022-01-02] MEDS: KETOCONAZOLE 2% TOPICAL CREAM 15 GM TUBE TP SCH (09:06)
[2022-01-02] MEDS: BUDESONIDE/FORMETEROL FUMARATE 160/4.5 mcg INHALER IH SCH ×2 (09:06→21:43)
[2022-01-02] MEDS: NIFEdipine E.R. 90 MG TABLET PO SCH (09:09)
[2022-01-02] MEDS: NICOTINE 14 MG/24 HOURS TOPICAL PATCH TD SCH (09:22)
[2022-01-02] MEDS ORDERED: SODIUM CHLORIDE 250 ML IV PRN (12:15)
[2022-01-02] MEDS: SENNOSIDES 8.6MG TABLET (FP) PO SCH (21:39)
[2022-01-02] MEDS: MIRTAZAPINE 15 MG TABLET (FP) PO SCH (21:39)
[2022-01-02] MEDS ORDERED: LABETALOL HCL 200 MG TABLET (FP) PO SCH (22:00)
[2022-01-03] MEDS: hydrALAZINE HCL 50 MG TABLET (FP) PO SCH ×3 (06:42→21:22)
[2022-01-03] MEDS: HEPARIN NA (PORCINE) 5,000 UNITS/ML 1ML VIAL SQ SCH ×3 (06:42→21:25)
[2022-01-03] MEDS: INSULIN SLIDING SCALE (NOVOLOG) 1 VIAL SQ SCH ×4 (06:42→21:24)
[2022-01-03 07:24] LABS: BASO % 1.5 % (0-2.0); EOS % 3.5 % (0-4.5); HEMATOCRIT 33.8 % (32.4-45.2); HEMOGLOBIN 11.4 GM/dL (10.7-15.3); LYMPH % 19.5 % (8-40); MCH 32.3 pg (25.7-33.7); MCHC 33.7 g/dl (32.0-36.0); MEAN PLT VOLUME 10.3 fl (7.5-11.1); MONO % 11.2 % (3.8-10.2); NEUT % 64.3 % (42.8-82.8); PLATELET COUNT 128 10^3/uL (134-434); RBC 3.52 M/mm3 (3.60-5.2); RDW 16.3 % (11.6-15.6); WHITE BLOOD COUNT 4.2 K/mm3 (4.0-10.0)
[2022-01-03 07:34] LABS: CHLORIDE 98 mmol/L (98-107); SODIUM 140 mmol/L (136-145)
[2022-01-03 07:36] LABS: CALCIUM 8.6 mg/dL (8.5-10.1)
[2022-01-03 07:37] LABS: ALBUMIN 3.4 g/dl (3.4-5.0); ANION GAP 13 MMOL/L (8-16); CO2 28 mmol/L (21-32); GLUCOSE,RANDOM 266 mg/dL (74-106); MAGNESIUM 2.3 mg/dL (1.8-2.4)
[2022-01-03 07:40] LABS: SGOT/AST 39 U/L (15-37); SGPT/ALT 47 U/L (13-61)
[2022-01-03 07:41] LABS: BILIRUBIN,TOTAL 0.9 mg/dL (0.2-1); TOT PROT 7.6 g/dl (6.4-8.2)
[2022-01-03 07:43] LABS: ALK PHOS 556 U/L (45-117)
[2022-01-03 07:44] LABS: BLOOD UREA NITROGEN 99.6 mg/dL (7-18); CREATININE 8.3 mg/dL (0.55-1.3)
[2022-01-03] MEDS: LIPASE/PROTEASE/AMYLASE 36,000 UNIT CAPSULE PO SCH ×3 (08:54→17:13)
[2022-01-03] MEDS: FAMOTIDINE 10 MG TABLET PO SCH (09:39)
[2022-01-03] MEDS: NICOTINE 14 MG/24 HOURS TOPICAL PATCH TD SCH (09:39)
[2022-01-03] MEDS: CARVEDILOL 25 MG TABLET (FP) PO SCH ×2 (09:39→21:22)
[2022-01-03] MEDS: NIFEdipine E.R. 90 MG TABLET PO SCH (09:39)
[2022-01-03] MEDS: ISOSORBIDE MONONITRATE 30 MG TAB.SR.24H (FP) PO SCH (09:39)
[2022-01-03] MEDS: LOSARTAN POTASSIUM 50 MG TABLET PO SCH (09:39)
[2022-01-03] MEDS: busPIRone HCL 10 MG TABLET (FP) PO SCH ×2 (09:39→21:22)
[2022-01-03] MEDS: DOCUSATE SODIUM 100 MG CAPSULE (FP) PO SCH (09:40)
[2022-01-03] MEDS: POLYETHYLENE GLYCOL (HEALTHYLAX) 3350 17 GM PACKET PO SCH (09:40)
[2022-01-03] MEDS: KETOCONAZOLE 2% TOPICAL CREAM 15 GM TUBE TP SCH (09:40)
[2022-01-03] MEDS: BUDESONIDE/FORMETEROL FUMARATE 160/4.5 mcg INHALER IH SCH ×2 (09:40→21:24)
[2022-01-03] MEDS ORDERED: ISOSORBIDE MONONITRATE 30 MG TAB.SR.24H (FP) PO ONE (16:16)
[2022-01-03] MEDS: MIRTAZAPINE 15 MG TABLET (FP) PO SCH (21:22)
[2022-01-03] MEDS: SENNOSIDES 8.6MG TABLET (FP) PO SCH (21:22)
[2022-01-03] MEDS: cloNIDine HCL 0.1 MG TABLET PO SCH (21:23)
[2022-01-04] MEDS: hydrALAZINE HCL 50 MG TABLET (FP) PO SCH ×3 (06:07→21:56)
[2022-01-04] MEDS: HEPARIN NA (PORCINE) 5,000 UNITS/ML 1ML VIAL SQ SCH ×3 (06:08→21:55)
[2022-01-04] MEDS: INSULIN SLIDING SCALE (NOVOLOG) 1 VIAL SQ SCH ×4 (06:08→21:56)
[2022-01-04 07:13] LABS: HEMOGLOBIN 11.3 GM/dL (10.7-15.3); MCH 32.2 pg (25.7-33.7); MCHC 33.3 g/dl (32.0-36.0); MEAN CELL VOLUME 96.7 fl (80-96); MEAN PLT VOLUME 10.2 fl (7.5-11.1); PLATELET COUNT 131 10^3/uL (134-434); RBC 3.52 M/mm3 (3.60-5.2); RDW 16.4 % (11.6-15.6); WHITE BLOOD COUNT 3.6 K/mm3 (4.0-10.0)
[2022-01-04 07:45] LABS: BILIRUBIN,TOTAL 1.1 mg/dL (0.2-1); TOT PROT 7.9 g/dl (6.4-8.2)
[2022-01-04 07:46] LABS: CALCIUM 9.4 mg/dL (8.5-10.1)
[2022-01-04 07:47] LABS: ALBUMIN 3.7 g/dl (3.4-5.0); CREATININE 5.8 mg/dL (0.55-1.3); MAGNESIUM 2.5 mg/dL (1.8-2.4); PHOSPHOROUS 5.4 mg/dL (2.5-4.9)
[2022-01-04 07:48] LABS: BLOOD UREA NITROGEN 66.1 mg/dL (7-18)
[2022-01-04] MEDS: NICOTINE 14 MG/24 HOURS TOPICAL PATCH TD SCH (09:43)
[2022-01-04] MEDS: POLYETHYLENE GLYCOL (HEALTHYLAX) 3350 17 GM PACKET PO SCH (09:43)
[2022-01-04] MEDS: cloNIDine HCL 0.1 MG TABLET PO SCH ×2 (09:44→21:56)
[2022-01-04] MEDS: ISOSORBIDE MONONITRATE 60 MG TAB.SR.24H (FP) PO SCH (09:44)
[2022-01-04] MEDS: FAMOTIDINE 10 MG TABLET PO SCH (09:44)
[2022-01-04] MEDS: NIFEdipine E.R. 90 MG TABLET PO SCH (09:44)
[2022-01-04] MEDS: busPIRone HCL 10 MG TABLET (FP) PO SCH ×2 (09:44→21:56)
[2022-01-04] MEDS: LOSARTAN POTASSIUM 50 MG TABLET PO SCH (09:44)
[2022-01-04] MEDS: DOCUSATE SODIUM 100 MG CAPSULE (FP) PO SCH (09:44)
[2022-01-04] MEDS: LIPASE/PROTEASE/AMYLASE 36,000 UNIT CAPSULE PO SCH ×3 (09:45→17:33)
[2022-01-04] MEDS: BUDESONIDE/FORMETEROL FUMARATE 160/4.5 mcg INHALER IH SCH ×2 (09:45→22:01)
[2022-01-04] MEDS: KETOCONAZOLE 2% TOPICAL CREAM 15 GM TUBE TP SCH (09:45)
[2022-01-04] MEDS ORDERED: cloNIDine-TTS 0.2 MG/24 HOURS PATCH.TDWK TD SCH (10:00)
[2022-01-04] MEDS ORDERED: SODIUM CHLORIDE 250 ML IV PRN (12:24)
[2022-01-04] MEDS: SENNOSIDES 8.6MG TABLET (FP) PO SCH (21:56)
[2022-01-04] MEDS: MIRTAZAPINE 15 MG TABLET (FP) PO SCH (21:56)
[2022-01-05] MEDS: hydrALAZINE HCL 50 MG TABLET (FP) PO SCH ×2 (06:41→14:32)
[2022-01-05] MEDS: HEPARIN NA (PORCINE) 5,000 UNITS/ML 1ML VIAL SQ SCH ×2 (06:41→14:32)
[2022-01-05 07:40] LABS: HEMATOCRIT 33.5 % (32.4-45.2); HEMOGLOBIN 10.9 GM/dL (10.7-15.3); MCH 31.3 pg (25.7-33.7); MCHC 32.6 g/dl (32.0-36.0); MEAN CELL VOLUME 95.8 fl (80-96); MEAN PLT VOLUME 10.5 fl (7.5-11.1); PLATELET COUNT 143 10^3/uL (134-434); RBC 3.49 M/mm3 (3.60-5.2); RDW 15.7 % (11.6-15.6); WHITE BLOOD COUNT 4.5 K/mm3 (4.0-10.0)
[2022-01-05 08:07] LABS: CALCIUM 9.1 mg/dL (8.5-10.1)
[2022-01-05 08:08] LABS: ALBUMIN 3.5 g/dl (3.4-5.0); BLOOD UREA NITROGEN 87.1 mg/dL (7-18); MAGNESIUM 2.4 mg/dL (1.8-2.4)
[2022-01-05 08:11] LABS: CREATININE 7.2 mg/dL (0.55-1.3); PHOSPHOROUS 6.5 mg/dL (2.5-4.9)
[2022-01-05 08:12] LABS: BILIRUBIN,TOTAL 0.9 mg/dL (0.2-1)
[2022-01-05 08:13] LABS: TOT PROT 7.7 g/dl (6.4-8.2)
[2022-01-05] MEDS: LIPASE/PROTEASE/AMYLASE 36,000 UNIT CAPSULE PO SCH ×2 (08:57→14:32)
[2022-01-05] MEDS: FAMOTIDINE 10 MG TABLET PO SCH (09:00)
[2022-01-05] MEDS: INSULIN SLIDING SCALE (NOVOLOG) 1 VIAL SQ SCH ×2 (09:00→11:36)
[2022-01-05] MEDS ORDERED: LABETALOL HCL 100 MG TABLET (FP) PO SCH (10:00)
[2022-01-05] MEDS: ISOSORBIDE MONONITRATE 60 MG TAB.SR.24H (FP) PO SCH (12:10)
[2022-01-05] MEDS: DOCUSATE SODIUM 100 MG CAPSULE (FP) PO SCH (12:10)
[2022-01-05] MEDS: LOSARTAN POTASSIUM 50 MG TABLET PO SCH (12:10)
[2022-01-05] MEDS: NIFEdipine E.R. 90 MG TABLET PO SCH (12:11)
[2022-01-05] MEDS: busPIRone HCL 10 MG TABLET (FP) PO SCH (12:11)
[2022-01-05] MEDS: POLYETHYLENE GLYCOL (HEALTHYLAX) 3350 17 GM PACKET PO SCH (14:31)
[2022-01-05] MEDS: NICOTINE 14 MG/24 HOURS TOPICAL PATCH TD SCH (14:31)
[2022-01-05] MEDS: BUDESONIDE/FORMETEROL FUMARATE 160/4.5 mcg INHALER IH SCH (14:31)
[2022-01-05] MEDS: KETOCONAZOLE 2% TOPICAL CREAM 15 GM TUBE TP SCH (14:31)
[2022-01-05 16:06] VITALS: BP 182/86; PULSE 71; RESP 20; TEMP 98.6
== END 2022-01-05 17:43 | disposition home or self-care (01) | DRG 304 ==
LOC: JER 14:35 → JERBED 18:25 → J4W 12-31 17:32 → OBSVTOIN 01-04 13:29 → J4W 01-04 22:46
PROVIDERS: ADMIT Internal Medicine; ATTEND Internal Medicine
PROC: 5A1D70Z Performance of Urinary Filtration, Intermittent, Less than 6 Hours Per Day (ICD-10-PCS; principal; 2022-01-05)
DX: I16.0 Hypertensive urgency (principal); N18.6 End stage renal disease; I50.32 Chronic diastolic (congestive) heart failure; I24.8 Other forms of acute ischemic heart disease; I13.2 Hypertensive heart and chronic kidney disease with heart failure and with stage 5 chronic kidney disease, or end stage renal disease; E11.22 Type 2 diabetes mellitus with diabetic chronic kidney disease; Z99.2 Dependence on renal dialysis; F41.8 Other specified anxiety disorders; D69.6 Thrombocytopenia, unspecified; I25.10 Atherosclerotic heart disease of native coronary artery without angina pectoris; E78.5 Hyperlipidemia, unspecified; E87.6 Hypokalemia; B35.1 Tinea unguium; K21.9 Gastro-esophageal reflux disease without esophagitis; K25.9 Gastric ulcer, unspecified as acute or chronic, without hemorrhage or perforation; E11.40 Type 2 diabetes mellitus with diabetic neuropathy, unspecified; E11.43 Type 2 diabetes mellitus with diabetic autonomic (poly)neuropathy; K63.5 Polyp of colon; K31.84 Gastroparesis; M72.2 Plantar fascial fibromatosis; S90.122A Contusion of left lesser toe(s) without damage to nail, initial encounter; Z89.422 Acquired absence of other left toe(s); W19.XXXA Unspecified fall, initial encounter; Y92.098 Other place in other non-institutional residence as the place of occurrence of the external cause; M77.52 Other enthesopathy of left foot and ankle
CPT/HCPCS: 36415; 71046-TC-FY; 73630-TC-LT; 76775-TC; 80048; 80053; 82803; 82962; 83735; 83880; 84100; 84484; 85025; 85027; 86803; 87340; 93005; 93010; 93306-TC; 99285-25; C9803-CS; G0378; J1644; U0003; U0005

== ENCOUNTER 2022-06-02 21:20 | Observation (INO) | payer OTHER ==
[2022-06-02 21:59] VITALS: BMI 25.3
[2022-06-02] MEDS ORDERED: FAMOTIDINE 20 MG/50 ML IVPB 20 MG/50 ML MG IVPB ONE ×2 (22:02→22:08)
[2022-06-02] MEDS ORDERED: MAG HYDROX/AL HYDROX/SIMETH 30 ML UNIT-DOSE CUP PO ONE (22:02)
[2022-06-02] MEDS ORDERED: ONDANSETRON 4 MG/2 ML VIAL IVPUSH ONE (22:02)
[2022-06-02] MEDS ORDERED: ONDANSETRON 4 MG/2 ML VIAL ONE (22:08)
[2022-06-02] MEDS ORDERED: MAG HYDROX/AL HYDROX/SIMETH 30 ML UNIT-DOSE CUP ONE (22:08)
[2022-06-02] MEDS ORDERED: morphine CARPU-JECT 4 MG/1 ML DISP.SYRIN IVPUSH ONE (23:44)
[2022-06-02] MEDS ORDERED: morphine SULFATE 4 MG/ML VIAL ONE (23:44)
[2022-06-02 23:57] LABS: EOS % 1.7 % (0-4.5); HEMATOCRIT 34.4 % (32.4-45.2); HEMOGLOBIN 11.4 GM/dL (10.7-15.3); LYMPH % 17.7 % (8-40); MCH 32.1 pg (25.7-33.7); MCHC 33.1 g/dl (32.0-36.0); MEAN CELL VOLUME 96.9 fl (80-96); MEAN PLT VOLUME 9.6 fl (7.5-11.1); MONO % 10.3 % (3.8-10.2); NEUT % 69.3 % (42.8-82.8); PLATELET COUNT 175 10^3/uL (134-434); RBC 3.55 M/mm3 (3.60-5.2); RDW 14.1 % (11.6-15.6); WHITE BLOOD COUNT 6.4 K/mm3 (4.0-10.0)
[2022-06-03 00:04] LABS: INR 1.08 (0.83-1.09); PROTHROMBIN TIME (PATIENT) 12.5 SEC (9.7-13.0)
[2022-06-03 00:07] LABS: ACTIVATED PTT 34.5 SECONDS (25.2-36.5)
[2022-06-03 00:21] LABS: CHLORIDE 98 mmol/L (98-107); SODIUM 132 mmol/L (136-145)
[2022-06-03 00:23] LABS: CALCIUM 10.4 mg/dL (8.5-10.1)
[2022-06-03] MEDS ORDERED: LACTATED RINGERS SOLUTION 1000 ML INFUS.BAG IV ONE (00:23)
[2022-06-03 00:24] LABS: ANION GAP 7 MMOL/L (8-16); BLOOD UREA NITROGEN 40.3 mg/dL (7-18); CO2 27 mmol/L (21-32); GLUCOSE,RANDOM 144 mg/dL (74-106); LIPASE 106 U/L (73-393)
[2022-06-03 00:27] LABS: CREATININE 4.9 mg/dL (0.55-1.3); SGOT/AST 32 U/L (15-37); SGPT/ALT 31 U/L (13-61)
[2022-06-03 00:28] LABS: BILIRUBIN,TOTAL 0.7 mg/dL (0.2-1); TOT PROT 8.8 g/dl (6.4-8.2)
[2022-06-03 00:30] LABS: ALK PHOS 525 U/L (45-117)
[2022-06-03] MEDS ORDERED: LORazepam 2 MG/ML SDV VIAL IVPUSH ONE (01:05)
[2022-06-03] MEDS ORDERED: ALBUTEROL SO4 HFA INHALER IH PRN (05:32)
[2022-06-03] MEDS ORDERED: ALBUTEROL SO4 2.5/IPRATROPIUM 0.5 INH SOL 3 ML VIAL.NEB. NEB PRN (05:32)
[2022-06-03 07:15] LABS: CHLORIDE 101 mmol/L (98-107); SODIUM 133 mmol/L (136-145)
[2022-06-03 07:20] LABS: ALBUMIN 3.7 g/dl (3.4-5.0); CALCIUM 9.9 mg/dL (8.5-10.1); CO2 26 mmol/L (21-32); GLUCOSE,RANDOM 175 mg/dL (74-106); MAGNESIUM 2.6 mg/dL (1.8-2.4)
[2022-06-03 07:21] LABS: BLOOD UREA NITROGEN 44.3 mg/dL (7-18)
[2022-06-03 07:23] LABS: CREATININE 5.2 mg/dL (0.55-1.3); PHOSPHOROUS 3.8 mg/dL (2.5-4.9); SGOT/AST 24 U/L (15-37); SGPT/ALT 26 U/L (13-61)
[2022-06-03 07:24] LABS: BILIRUBIN,TOTAL 0.6 mg/dL (0.2-1)
[2022-06-03 07:26] LABS: ALK PHOS 453 U/L (45-117); ANION GAP 6 MMOL/L (8-16)
[2022-06-03] MEDS ORDERED: hydrALAZINE HCL 50 MG TABLET (FP) ONE (07:26)
[2022-06-03] MEDS: INSULIN (NOVOLOG) ASPART 100 UNITS/ML 10ML VIAL SQ SCH ×4 (07:29→22:08)
[2022-06-03] MEDS: hydrALAZINE HCL 50 MG TABLET (FP) PO SCH ×4 (07:29→22:41)
[2022-06-03] MEDS: HEPARIN NA (PORCINE) 5,000 UNITS/ML 1ML VIAL SQ SCH ×3 (07:29→22:41)
[2022-06-03] MEDS ORDERED: HEPARIN NA (PORCINE) 5,000 UNITS/ML 1ML VIAL ONE ×2 (07:30→13:32)
[2022-06-03 07:34] LABS: BASO % 1.9 % (0-2.0); EOS % 1.1 % (0-4.5); HEMATOCRIT 33.2 % (32.4-45.2); LYMPH % 15.7 % (8-40); MCH 32.2 pg (25.7-33.7); MEAN CELL VOLUME 97.4 fl (80-96); MEAN PLT VOLUME 9.3 fl (7.5-11.1); MONO % 9.5 % (3.8-10.2); NEUT % 71.8 % (42.8-82.8); PLATELET COUNT 145 10^3/uL (134-434); RBC 3.41 M/mm3 (3.60-5.2); RDW 14.4 % (11.6-15.6); WHITE BLOOD COUNT 5.5 K/mm3 (4.0-10.0)
[2022-06-03] MEDS ORDERED: cloNIDine-TTS 0.2 MG/24 HOURS PATCH.TDWK TD SCH (10:00)
[2022-06-03] MEDS ORDERED: SODIUM CHLORIDE 250 ML IV PRN (10:50)
[2022-06-03] MEDS ORDERED: LABETALOL HCL 100 MG TABLET (FP) ONE (10:59)
[2022-06-03] MEDS ORDERED: NIFEdipine E.R 60 MG TABLET PO ONE (10:59)
[2022-06-03] MEDS: NIFEdipine E.R 60 MG TABLET PO SCH ×2 (11:00→22:41)
[2022-06-03] MEDS: LABETALOL HCL 100 MG TABLET (FP) PO SCH ×2 (11:00→22:41)
[2022-06-03] MEDS: busPIRone HCL 10 MG TABLET (FP) PO SCH ×2 (11:00→22:40)
[2022-06-03] MEDS: SEVELAMER CARBONATE 2.4 GM POWDER PACKET PO SCH (11:01)
[2022-06-03] MEDS: ISOSORBIDE MONONITRATE 60 MG TAB.SR.24H (FP) PO SCH (11:12)
[2022-06-03] MEDS: NICOTINE 14 MG/24 HOURS TOPICAL PATCH TD SCH (11:12)
[2022-06-03] MEDS: BUDESONIDE/FORMETEROL FUMARATE 160/4.5 mcg INHALER IH SCH (11:12)
[2022-06-03] MEDS ORDERED: hydrALAZINE HCL 25 MG TABLET (FP) ONE (13:32)
[2022-06-03] MEDS ORDERED: cloNIDine HCL 0.1 MG TABLET ONE (13:32)
[2022-06-03] MEDS ORDERED: DULoxetine HCL 30 MG CAPSULE.DR PO ONE (13:32)
[2022-06-03] MEDS: cloNIDine HCL 0.1 MG TABLET PO SCH ×2 (13:34→22:40)
[2022-06-03] MEDS: DULoxetine HCL 30 MG CAPSULE.DR PO SCH (13:34)
[2022-06-03] MEDS: SODIUM ZIRCONIUM CYCLOSILICATE (LOKELMA) 10 GM PACKET PO SCH (13:34)
[2022-06-03] MEDS: PANTOPRAZOLE 40 MG TABLET PO SCH (22:41)
[2022-06-04] MEDS: BUDESONIDE/FORMETEROL FUMARATE 160/4.5 mcg INHALER IH SCH ×3 (00:45→21:18)
[2022-06-04 05:40] VITALS: RESP 20
[2022-06-04] MEDS: HEPARIN NA (PORCINE) 5,000 UNITS/ML 1ML VIAL SQ SCH ×3 (05:43→21:10)
[2022-06-04] MEDS: hydrALAZINE HCL 50 MG TABLET (FP) PO SCH ×3 (05:44→21:09)
[2022-06-04] MEDS: INSULIN (NOVOLOG) ASPART 100 UNITS/ML 10ML VIAL SQ SCH ×4 (06:08→21:15)
[2022-06-04 08:13] LABS: INR 1.18 (0.83-1.09); PROTHROMBIN TIME (PATIENT) 13.7 SEC (9.7-13.0)
[2022-06-04] MEDS ORDERED: METOCLOPRAMIDE HCL INJECTION 10 MG/2 ML VIAL IVPUSH PRN (08:23)
[2022-06-04] MEDS: SEVELAMER CARBONATE 2.4 GM POWDER PACKET PO SCH ×3 (08:30→17:35)
[2022-06-04 08:33] LABS: ALBUMIN 3.4 g/dl (3.4-5.0); BLOOD UREA NITROGEN 30.7 mg/dL (7-18); CALCIUM 9.3 mg/dL (8.5-10.1)
[2022-06-04 08:35] LABS: BILIRUBIN,DIRECT 0.2 mg/dL (0.0-0.2)
[2022-06-04 08:36] LABS: CREATININE 4.3 mg/dL (0.55-1.3)
[2022-06-04 08:38] LABS: BILIRUBIN,TOTAL 0.6 mg/dL (0.2-1); TOT PROT 7.4 g/dl (6.4-8.2)
[2022-06-04] MEDS ORDERED: BISACODYL 5 MG TABLET.DR (FP) PO PRN (09:00)
[2022-06-04] MEDS: SODIUM ZIRCONIUM CYCLOSILICATE (LOKELMA) 10 GM PACKET PO SCH (10:06)
[2022-06-04] MEDS: NICOTINE 14 MG/24 HOURS TOPICAL PATCH TD SCH (10:06)
[2022-06-04] MEDS: busPIRone HCL 10 MG TABLET (FP) PO SCH ×2 (10:06→21:10)
[2022-06-04] MEDS: ISOSORBIDE MONONITRATE 60 MG TAB.SR.24H (FP) PO SCH (10:06)
[2022-06-04] MEDS: POLYETHYLENE GLYCOL (HEALTHYLAX) 3350 17 GM PACKET PO SCH ×2 (10:06→21:10)
[2022-06-04] MEDS: cloNIDine HCL 0.1 MG TABLET PO SCH ×2 (10:06→21:09)
[2022-06-04] MEDS: DULoxetine HCL 30 MG CAPSULE.DR PO SCH (10:06)
[2022-06-04] MEDS: LABETALOL HCL 100 MG TABLET (FP) PO SCH ×2 (10:07→21:10)
[2022-06-04] MEDS: NIFEdipine E.R 60 MG TABLET PO SCH ×2 (10:07→21:09)
[2022-06-04] MEDS: PANTOPRAZOLE 40 MG TABLET PO SCH ×2 (10:07→21:10)
[2022-06-05 01:37] VITALS: BP 148/76; PULSE 59; TEMP 98.6
[2022-06-05] MEDS ORDERED: BISACODYL 5 MG TABLET.DR (FP) PO SCH (10:00)
[2022-06-07 23:06] LABS: ALPHA 2 MACROGLOBULINS,QN 118 mg/dL (110-276); ALT(SGPT)P5P 22 IU/L (0-40); APOLIPOPROTEIN A-1. 133 mg/dL (116-209); CHOLESTEROL TOTAL 168 mg/dL (100-199); FIBROSIS SCORE 0.15 (0.00-0.21); GLUCOSE SERUM 195 mg/dL (70-99); HEIGHT 64 in (.); WEIGHT- 147 LBS (.)
== END 2022-06-05 05:10 | disposition left against medical advice (07) ==
LOC: JER 21:20 → JERBED 06-03 01:46 → J4W 06-03 17:56
PROVIDERS: ADMIT Internal Medicine; ATTEND Internal Medicine
PROC: 3E023GC Introduction of Other Therapeutic Substance into Muscle, Percutaneous Approach (ICD-10-PCS; principal; 2022-06-03)
PROC: 3E013VG Introduction of Insulin into Subcutaneous Tissue, Percutaneous Approach (ICD-10-PCS; 2022-06-03)
PROC: 3E0337Z Introduction of Electrolytic and Water Balance Substance into Peripheral Vein, Percutaneous Approach (ICD-10-PCS; 2022-06-03)
PROC: 3E033NZ Introduction of Analgesics, Hypnotics, Sedatives into Peripheral Vein, Percutaneous Approach (ICD-10-PCS; 2022-06-03)
PROC: 3E033GC Introduction of Other Therapeutic Substance into Peripheral Vein, Percutaneous Approach (ICD-10-PCS; 2022-06-03)
DX: E11.22 Type 2 diabetes mellitus with diabetic chronic kidney disease (principal); I12.0 Hypertensive chronic kidney disease with stage 5 chronic kidney disease or end stage renal disease; N18.6 End stage renal disease; Z99.2 Dependence on renal dialysis; J45.909 Unspecified asthma, uncomplicated; Z79.4 Long term (current) use of insulin; Z88.8 Allergy status to other drugs, medicaments and biological substances
CPT/HCPCS: 0241U-QW; 36415; 71045-TC-FY; 74176-TC; 80053; 80076; 82105; 82172; 82247; 82465; 82784; 82947; 82962; 82977; 83010; 83036; 83516; 83615; 83690; 83735; 83883; 84080; 84100; 84155; 84165; 84450; 84460; 84478; 84484; 85025; 85610; 85730; 86038; 86140; 86301; 86334; 86803; 87340; 93005; 93010; 96361; 96365; 96372; 96375; 99285-25; G0378; J1644

== ENCOUNTER 2022-08-15 10:24 | Observation (INO) | payer OTHER ==
[2022-08-15 10:42] VITALS: BMI 24.0
[2022-08-15] MEDS ORDERED: FAMOTIDINE 20 MG/50 ML IVPB 20 MG in PREMIX 50 IVPB ONE (11:36)
[2022-08-15] MEDS ORDERED: MAG HYDROX/AL HYDROX/SIMETH -MYLANTA- ORAL SUSPENSION PO ONE (11:36)
[2022-08-15] MEDS ORDERED: ONDANSETRON 4 MG/2 ML VIAL IVPB ONE (11:56)
[2022-08-15] MEDS ORDERED: ONDANSETRON 4 MG/2 ML VIAL ONE ×2 (12:20→12:58)
[2022-08-15] MEDS ORDERED: FAMOTIDINE 20 MG/50 ML IVPB 20 MG/50 ML MG IVPB ONE (12:20)
[2022-08-15 12:27] LABS: BASO % 2.1 % (0-2.0); EOS % 2.6 % (0-4.5); HEMOGLOBIN 10.2 GM/dL (10.7-15.3); LYMPH % 11.6 % (8-40); MCH 32.4 pg (25.7-33.7); MEAN CELL VOLUME 92.6 fl (80-96); MEAN PLT VOLUME 9.2 fl (7.5-11.1); MONO % 11.6 % (3.8-10.2); NEUT % 72.1 % (42.8-82.8); PLATELET COUNT 413 10^3/uL (134-434); RBC 3.14 M/mm3 (3.60-5.2); RDW 16.7 % (11.6-15.6); WHITE BLOOD COUNT 7.1 K/mm3 (4.0-10.0)
[2022-08-15 12:46] LABS: CALCIUM 9.1 mg/dL (8.5-10.1)
[2022-08-15 12:47] LABS: ALBUMIN 3.4 g/dl (3.4-5.0); BLOOD UREA NITROGEN 72.9 mg/dL (7-18); MAGNESIUM 2.4 mg/dL (1.8-2.4)
[2022-08-15 12:50] LABS: CREATININE 6.6 mg/dL (0.55-1.3)
[2022-08-15 12:51] LABS: BILIRUBIN,TOTAL 0.6 mg/dL (0.2-1)
[2022-08-15 12:52] LABS: TOT PROT 8.5 g/dl (6.4-8.2)
[2022-08-15] MEDS ORDERED: morphine CARPU-JECT 4 MG/1 ML DISP.SYRIN IVPUSH ONE (13:47)
[2022-08-15] MEDS ORDERED: MECLIZINE HCL 25 MG TABLET (FP) PO ONE (13:47)
[2022-08-15] MEDS ORDERED: morphine SULFATE 4 MG/ML VIAL ONE (13:57)
[2022-08-15] MEDS ORDERED: SODIUM CHLORIDE 250 ML IV PRN (15:40)
[2022-08-15] MEDS ORDERED: EPOETIN ALFA-EPBX 2,000 UNIT/ML VIAL SQ ONE (16:10)
[2022-08-15] MEDS ORDERED: ALBUTEROL SO4 2.5/IPRATROPIUM 0.5 INH SOL 3 ML VIAL.NEB. NEB PRN (16:59)
[2022-08-15] MEDS ORDERED: ALBUTEROL SO4 HFA INHALER IH PRN (16:59)
[2022-08-15] MEDS ORDERED: ACETAMINOPHEN 500 MG TABLET (FP) PO PRN (20:31)
[2022-08-15] MEDS: NIFEdipine E.R 60 MG TABLET PO SCH (21:13)
[2022-08-15] MEDS: hydrALAZINE HCL 50 MG TABLET (FP) PO SCH (21:13)
[2022-08-15] MEDS: LABETALOL HCL 100 MG TABLET (FP) PO SCH (21:13)
[2022-08-15] MEDS: METOCLOPRAMIDE HCL INJECTION 10 MG/2 ML VIAL IVPUSH SCH ×2 (21:14→22:02)
[2022-08-15] MEDS: HEPARIN NA (PORCINE) 5,000 UNITS/ML 1ML VIAL SQ SCH (21:14)
[2022-08-15] MEDS: LACTULOSE 20 GM/30 ML UDC (FOR ORAL USE ONLY) PO SCH (21:14)
[2022-08-15] MEDS: INSULIN (LEVEMIR) 100 UNITS/ML UNITS SQ SCH (21:16)
[2022-08-15] MEDS: INSULIN SLIDING SCALE (NOVOLOG) 1 VIAL SQ SCH (21:20)
[2022-08-15] MEDS: BUDESONIDE/FORMETEROL FUMARATE 160/4.5 mcg INHALER IH SCH (22:02)
[2022-08-15] MEDS: busPIRone HCL 10 MG TABLET (FP) PO SCH (23:28)
[2022-08-16] MEDS: hydrALAZINE HCL 50 MG TABLET (FP) PO SCH ×3 (05:43→21:34)
[2022-08-16] MEDS: LACTULOSE 20 GM/30 ML UDC (FOR ORAL USE ONLY) PO SCH ×3 (05:43→21:35)
[2022-08-16] MEDS: HEPARIN NA (PORCINE) 5,000 UNITS/ML 1ML VIAL SQ SCH ×3 (05:44→21:34)
[2022-08-16] MEDS: INSULIN (LEVEMIR) 100 UNITS/ML UNITS SQ SCH ×2 (06:11→21:35)
[2022-08-16] MEDS: INSULIN SLIDING SCALE (NOVOLOG) 1 VIAL SQ SCH ×4 (06:11→22:03)
[2022-08-16] MEDS ORDERED: FAMOTIDINE 20 MG TABLET PO SCH (10:00)
[2022-08-16] MEDS ORDERED: FUROSEMIDE 40 MG TABLET (FP) PO SCH (10:00)
[2022-08-16] MEDS ORDERED: PANTOPRAZOLE 40 MG TABLET PO SCH (10:00)
[2022-08-16] MEDS: SEVELAMER CARBONATE 2.4 GM POWDER PACKET PO SCH ×5 (10:39→17:18)
[2022-08-16] MEDS: NIFEdipine E.R 60 MG TABLET PO SCH ×2 (10:40→21:34)
[2022-08-16] MEDS: SENNOSIDES 8.6MG TABLET (FP) PO SCH (10:40)
[2022-08-16] MEDS: LABETALOL HCL 100 MG TABLET (FP) PO SCH ×2 (10:40→21:33)
[2022-08-16] MEDS: DOCUSATE SODIUM 100 MG CAPSULE (FP) PO SCH (10:41)
[2022-08-16] MEDS: FAMOTIDINE 20 MG TABLET PO SCH (10:41)
[2022-08-16] MEDS: ISOSORBIDE MONONITRATE 60 MG TAB.SR.24H (FP) PO SCH (10:41)
[2022-08-16] MEDS: DULoxetine HCL 30 MG CAPSULE.DR PO SCH (10:41)
[2022-08-16] MEDS: POLYETHYLENE GLYCOL (HEALTHYLAX) 3350 17 GM PACKET PO SCH (10:41)
[2022-08-16] MEDS: busPIRone HCL 10 MG TABLET (FP) PO SCH ×2 (10:42→21:35)
[2022-08-16] MEDS: BUDESONIDE/FORMETEROL FUMARATE 160/4.5 mcg INHALER IH SCH ×2 (10:43→21:36)
[2022-08-16] MEDS: NICOTINE 14 MG/24 HOURS TOPICAL PATCH TD SCH (10:44)
[2022-08-16] MEDS: METOCLOPRAMIDE HCL INJECTION 10 MG/2 ML VIAL IVPUSH SCH ×2 (10:45→21:35)
[2022-08-16] MEDS: cloNIDine HCL 0.1 MG TABLET PO SCH ×2 (11:10→21:34)
[2022-08-16 11:32] LABS: BASO % 1.2 % (0-2.0); EOS % 1.3 % (0-4.5); HEMATOCRIT 29.2 % (32.4-45.2); HEMOGLOBIN 10.2 GM/dL (10.7-15.3); LYMPH % 9.3 % (8-40); MCH 32.5 pg (25.7-33.7); MCHC 34.8 g/dl (32.0-36.0); MEAN CELL VOLUME 93.5 fl (80-96); MEAN PLT VOLUME 8.3 fl (7.5-11.1); MONO % 11.3 % (3.8-10.2); NEUT % 76.9 % (42.8-82.8); PLATELET COUNT 336 10^3/uL (134-434); RBC 3.12 M/mm3 (3.60-5.2); RDW 16.5 % (11.6-15.6)
[2022-08-16 12:29] LABS: ALBUMIN 3.4 g/dl (3.4-5.0)
[2022-08-16 12:30] LABS: CALCIUM 9.1 mg/dL (8.5-10.1); MAGNESIUM 2.3 mg/dL (1.8-2.4)
[2022-08-16 12:32] LABS: CREATININE 4.6 mg/dL (0.55-1.3)
[2022-08-16 12:33] LABS: TOT PROT 8.4 g/dl (6.4-8.2)
[2022-08-16 12:34] LABS: BILIRUBIN,TOTAL 0.5 mg/dL (0.2-1)
[2022-08-16 12:44] LABS: BLOOD UREA NITROGEN 33.9 mg/dL (7-18)
[2022-08-16] MEDS ORDERED: SODIUM CHLORIDE 250 ML IV PRN (17:34)
[2022-08-17] MEDS: HEPARIN NA (PORCINE) 5,000 UNITS/ML 1ML VIAL SQ SCH ×2 (05:07→13:30)
[2022-08-17] MEDS: LACTULOSE 20 GM/30 ML UDC (FOR ORAL USE ONLY) PO SCH ×2 (05:07→13:31)
[2022-08-17] MEDS: hydrALAZINE HCL 50 MG TABLET (FP) PO SCH ×2 (05:07→13:30)
[2022-08-17] MEDS ORDERED: INSULIN (LEVEMIR) 100 UNITS/ML UNITS SQ ONE (06:13)
[2022-08-17] MEDS ORDERED: INSULIN (NOVOLOG) ASPART 100 UNITS/ML 10ML VIAL ONE ×2 (06:13→16:54)
[2022-08-17] MEDS: INSULIN SLIDING SCALE (NOVOLOG) 1 VIAL SQ SCH ×3 (06:17→17:04)
[2022-08-17] MEDS: INSULIN (LEVEMIR) 100 UNITS/ML UNITS SQ SCH (07:37)
[2022-08-17] MEDS ORDERED: EPOETIN ALFA-EPBX 3,000 UNIT/ML VIAL IVPUSH ONE (08:30)
[2022-08-17] MEDS: SEVELAMER CARBONATE 2.4 GM POWDER PACKET PO SCH ×2 (08:53→12:11)
[2022-08-17] MEDS: NICOTINE 14 MG/24 HOURS TOPICAL PATCH TD SCH (09:53)
[2022-08-17] MEDS: METOCLOPRAMIDE HCL INJECTION 10 MG/2 ML VIAL IVPUSH SCH (09:53)
[2022-08-17] MEDS: busPIRone HCL 10 MG TABLET (FP) PO SCH (09:53)
[2022-08-17] MEDS: FAMOTIDINE 20 MG TABLET PO SCH (09:54)
[2022-08-17] MEDS: BUDESONIDE/FORMETEROL FUMARATE 160/4.5 mcg INHALER IH SCH (09:54)
[2022-08-17] MEDS: DULoxetine HCL 30 MG CAPSULE.DR PO SCH (09:54)
[2022-08-17] MEDS: cloNIDine HCL 0.1 MG TABLET PO SCH (09:54)
[2022-08-17] MEDS: DOCUSATE SODIUM 100 MG CAPSULE (FP) PO SCH (09:54)
[2022-08-17] MEDS: LABETALOL HCL 100 MG TABLET (FP) PO SCH (09:54)
[2022-08-17] MEDS: NIFEdipine E.R 60 MG TABLET PO SCH (09:54)
[2022-08-17] MEDS: POLYETHYLENE GLYCOL (HEALTHYLAX) 3350 17 GM PACKET PO SCH (09:54)
[2022-08-17] MEDS: ISOSORBIDE MONONITRATE 60 MG TAB.SR.24H (FP) PO SCH (09:54)
[2022-08-17] MEDS: SENNOSIDES 8.6MG TABLET (FP) PO SCH (09:54)
[2022-08-17 10:12] LABS: HEMATOCRIT 25.9 % (32.4-45.2); MCH 32.7 pg (25.7-33.7); MCHC 34.7 g/dl (32.0-36.0); MEAN CELL VOLUME 94.2 fl (80-96); MEAN PLT VOLUME 9.1 fl (7.5-11.1); PLATELET COUNT 283 10^3/uL (134-434); RBC 2.75 M/mm3 (3.60-5.2); RDW 16.8 % (11.6-15.6); WHITE BLOOD COUNT 6.4 K/mm3 (4.0-10.0)
[2022-08-17 10:39] LABS: BLOOD UREA NITROGEN 47.1 mg/dL (7-18); CALCIUM 8.9 mg/dL (8.5-10.1)
[2022-08-17 10:40] LABS: ALBUMIN 3.2 g/dl (3.4-5.0); MAGNESIUM 2.5 mg/dL (1.8-2.4)
[2022-08-17 10:43] LABS: CREATININE 5.4 mg/dL (0.55-1.3); PHOSPHOROUS 4.7 mg/dL (2.5-4.9)
[2022-08-17 10:44] LABS: TOT PROT 7.9 g/dl (6.4-8.2)
[2022-08-17 10:49] LABS: BILIRUBIN,TOTAL 0.5 mg/dL (0.2-1)
[2022-08-17 11:33] VITALS: RESP 18
[2022-08-17 14:36] VITALS: BP 158/80; PULSE 77; TEMP 98.2
[2022-08-17] MEDS ORDERED: BISACODYL 5 MG TABLET.DR (FP) PO ONE (16:31)
[2022-08-22] MEDS ORDERED: cloNIDine-TTS 0.2 MG/24 HOURS PATCH.TDWK TD SCH (10:00)
== END 2022-08-17 18:25 | disposition home or self-care (01) ==
LOC: JER 10:24 → JERBED 13:56 → J6S 19:42
PROVIDERS: ADMIT Internal Medicine; ATTEND Internal Medicine
PROC: 3E023GC Introduction of Other Therapeutic Substance into Muscle, Percutaneous Approach (ICD-10-PCS; principal; 2022-08-15)
PROC: 3E033GC Introduction of Other Therapeutic Substance into Peripheral Vein, Percutaneous Approach (ICD-10-PCS; 2022-08-15)
PROC: 3E033GC Introduction of Other Therapeutic Substance into Peripheral Vein, Percutaneous Approach (ICD-10-PCS; 2022-08-15)
DX: I25.119 Atherosclerotic heart disease of native coronary artery with unspecified angina pectoris (principal); I11.0 Hypertensive heart disease with heart failure; E87.5 Hyperkalemia; I13.2 Hypertensive heart and chronic kidney disease with heart failure and with stage 5 chronic kidney disease, or end stage renal disease; R10.13 Epigastric pain; R07.89 Other chest pain; R77.8 Other specified abnormalities of plasma proteins; E11.22 Type 2 diabetes mellitus with diabetic chronic kidney disease; R11.10 Vomiting, unspecified; Z99.2 Dependence on renal dialysis; J45.909 Unspecified asthma, uncomplicated; Z91.041 Radiographic dye allergy status; D64.9 Anemia, unspecified; E11.42 Type 2 diabetes mellitus with diabetic polyneuropathy; K31.84 Gastroparesis; Z88.8 Allergy status to other drugs, medicaments and biological substances; Z89.422 Acquired absence of other left toe(s); Z91.158 Patient's noncompliance with renal dialysis for other reason; R11.2 Nausea with vomiting, unspecified
CPT/HCPCS: 0241U-QW; 36415; 71046-TC-FY; 80053; 82962; 83690; 83735; 84100; 84484; 85025; 85027; 86803; 87340; 93005; 93010; 93975; 96365; 96372; 96375; 99285-25; G0378; J1644; Q5106

== ENCOUNTER 2022-09-12 15:33 | Inpatient (IN) | payer OTHER ==
[2022-09-12 15:56] VITALS: BMI 24.9
[2022-09-12] MEDS ORDERED: ACETAMINOPHEN 1000 MG/100 ML BAG IVPB ONE (16:33)
[2022-09-12] MEDS ORDERED: FAMOTIDINE 20 MG/50 ML IVPB 20 MG/50 ML MG IVPB ONE (16:33)
[2022-09-12] MEDS ORDERED: ACETAMINOPHEN INJECTION 100 ML IVPB ONE (16:48)
[2022-09-12] MEDS ORDERED: FAMOTIDINE 10 MG/ML VIAL IVPB ONE (16:48)
[2022-09-12 17:28] LABS: BASO % 2.2 % (0-2.0); EOS % 2.6 % (0-4.5); HEMATOCRIT 33.1 % (32.4-45.2); LYMPH % 18.8 % (8-40); MCH 32.1 pg (25.7-33.7); MCHC 33.3 g/dl (32.0-36.0); MEAN CELL VOLUME 96.3 fl (80-96); MEAN PLT VOLUME 8.2 fl (7.5-11.1); MONO % 10.5 % (3.8-10.2); NEUT % 65.9 % (42.8-82.8); PLATELET COUNT 199 10^3/uL (134-434); RBC 3.44 M/mm3 (3.60-5.2); RDW 16.2 % (11.6-15.6)
[2022-09-12 19:26] LABS: INR 1.18 (0.83-1.09); PROTHROMBIN TIME (PATIENT) 13.7 SEC (9.7-13.0)
[2022-09-12 19:28] LABS: ACTIVATED PTT 33.1 SECONDS (25.2-36.5)
[2022-09-12 19:55] LABS: POTASSIUM 4.3 mmol/L (3.5-5.1)
[2022-09-12 19:57] LABS: ALBUMIN 3.4 g/dl (3.4-5.0); BLOOD UREA NITROGEN 29.1 mg/dL (7-18); CALCIUM 9.1 mg/dL (8.5-10.1); MAGNESIUM 2.3 mg/dL (1.8-2.4)
[2022-09-12 20:01] LABS: CREATININE 3.6 mg/dL (0.55-1.3)
[2022-09-12 20:02] LABS: BILIRUBIN,TOTAL 0.6 mg/dL (0.2-1); TOT PROT 7.8 g/dl (6.4-8.2)
[2022-09-12] MEDS ORDERED: ALBUTEROL SO4 HFA INHALER IH PRN (23:45)
[2022-09-12] MEDS ORDERED: ALBUTEROL SO4 2.5/IPRATROPIUM 0.5 INH SOL 3 ML VIAL.NEB. NEB PRN (23:45)
[2022-09-13] MEDS ORDERED: FUROSEMIDE 40 MG TABLET (FP) PO SCH (06:00)
[2022-09-13] MEDS: LACTULOSE 20 GM/30 ML UDC (FOR ORAL USE ONLY) PO SCH ×3 (06:12→21:10)
[2022-09-13] MEDS ORDERED: INSULIN (NOVOLOG) ASPART 100 UNITS/ML 10ML VIAL ONE ×3 (06:13→21:02)
[2022-09-13] MEDS: INSULIN SLIDING SCALE (NOVOLOG) 1 VIAL SQ SCH ×5 (06:14→22:00)
[2022-09-13] MEDS: busPIRone HCL 10 MG TABLET (FP) PO SCH ×3 (06:24→21:10)
[2022-09-13] MEDS ORDERED: POLYETHYLENE GLYCOL (HEALTHYLAX) 3350 17 GM PACKET PO SCH (10:00)
[2022-09-13] MEDS ORDERED: busPIRone HCL 10 MG TABLET (FP) PO SCH (10:00)
[2022-09-13] MEDS: SEVELAMER CARBONATE 2.4 GM POWDER PACKET PO SCH ×3 (10:06→16:55)
[2022-09-13] MEDS ORDERED: PHYTONADIONE 10 MG/1 ML AMP IVPB ONE (10:08)
[2022-09-13] MEDS: FAMOTIDINE 20 MG TABLET PO SCH (10:13)
[2022-09-13] MEDS: cloNIDine HCL 0.1 MG TABLET PO SCH ×2 (10:14→21:09)
[2022-09-13] MEDS: PANTOPRAZOLE 40 MG TABLET PO SCH (10:14)
[2022-09-13] MEDS: DULoxetine HCL 30 MG CAPSULE.DR PO SCH (10:14)
[2022-09-13] MEDS: DOCUSATE SODIUM 100 MG CAPSULE (FP) PO SCH (10:14)
[2022-09-13] MEDS: LABETALOL HCL 100 MG TABLET (FP) PO SCH ×2 (10:14→21:09)
[2022-09-13] MEDS: NIFEdipine E.R. 90 MG TABLET PO SCH ×2 (10:14→21:09)
[2022-09-13 10:49] LABS: BASO % 1.8 % (0-2.0); EOS % 2.4 % (0-4.5); HEMATOCRIT 33.1 % (32.4-45.2); HEMOGLOBIN 11.3 GM/dL (10.7-15.3); LYMPH % 14.5 % (8-40); MCH 32.9 pg (25.7-33.7); MEAN CELL VOLUME 96.6 fl (80-96); MEAN PLT VOLUME 9.2 fl (7.5-11.1); MONO % 9.6 % (3.8-10.2); NEUT % 71.7 % (42.8-82.8); PLATELET COUNT 218 10^3/uL (134-434); RBC 3.43 M/mm3 (3.60-5.2); RDW 15.9 % (11.6-15.6); WHITE BLOOD COUNT 5.4 K/mm3 (4.0-10.0)
[2022-09-13] MEDS: BUDESONIDE/FORMETEROL FUMARATE 160/4.5 mcg INHALER IH SCH ×2 (10:59→21:20)
[2022-09-13 11:07] LABS: POTASSIUM 4.9 mmol/L (3.5-5.1)
[2022-09-13 11:10] LABS: CALCIUM 9.5 mg/dL (8.5-10.1)
[2022-09-13 11:11] LABS: ALBUMIN 3.6 g/dl (3.4-5.0); BLOOD UREA NITROGEN 39.3 mg/dL (7-18); MAGNESIUM 2.5 mg/dL (1.8-2.4)
[2022-09-13 11:15] LABS: BILIRUBIN,TOTAL 0.7 mg/dL (0.2-1); CREATININE 4.8 mg/dL (0.55-1.3); TOT PROT 8.2 g/dl (6.4-8.2)
[2022-09-13] MEDS: POLYETHYLENE GLYCOL (HEALTHYLAX) 3350 17 GM PACKET PO SCH ×2 (15:03→21:10)
[2022-09-13 16:05] LABS: BF WBC & OTHER NUCLEATED CELLS 422 /mm3
[2022-09-13 18:19] LABS: BODY FLUID MACROPHAGES 79 %; BODY FLUID MESOTHELIAL 16 %
[2022-09-13] MEDS: hydrALAZINE HCL 50 MG TABLET (FP) PO SCH (21:09)
[2022-09-13] MEDS: HEPARIN NA (PORCINE) 5,000 UNITS/ML 1ML VIAL SQ SCH (21:10)
[2022-09-13] MEDS ORDERED: SENNOSIDES 8.6MG TABLET (FP) PO SCH (22:00)
[2022-09-14] MEDS: hydrALAZINE HCL 50 MG TABLET (FP) PO SCH ×3 (05:06→21:14)
[2022-09-14] MEDS: POLYETHYLENE GLYCOL (HEALTHYLAX) 3350 17 GM PACKET PO SCH ×3 (05:06→21:15)
[2022-09-14] MEDS: LACTULOSE 20 GM/30 ML UDC (FOR ORAL USE ONLY) PO SCH ×3 (05:06→21:14)
[2022-09-14] MEDS: INSULIN SLIDING SCALE (NOVOLOG) 1 VIAL SQ SCH ×4 (06:01→21:15)
[2022-09-14 08:37] LABS: BASO % 1.8 % (0-2.0); EOS % 2.6 % (0-4.5); HEMATOCRIT 33.6 % (32.4-45.2); HEMOGLOBIN 11.2 GM/dL (10.7-15.3); LYMPH % 16.3 % (8-40); MCH 32.5 pg (25.7-33.7); MCHC 33.3 g/dl (32.0-36.0); MEAN CELL VOLUME 97.4 fl (80-96); MEAN PLT VOLUME 8.8 fl (7.5-11.1); NEUT % 67.3 % (42.8-82.8); PLATELET COUNT 196 10^3/uL (134-434); RBC 3.45 M/mm3 (3.60-5.2); RDW 16.4 % (11.6-15.6); WHITE BLOOD COUNT 5.6 K/mm3 (4.0-10.0)
[2022-09-14 08:40] LABS: INR 1.21 (0.83-1.09)
[2022-09-14 09:03] LABS: POTASSIUM 5.6 mmol/L (3.5-5.1)
[2022-09-14 09:08] LABS: CALCIUM 9.4 mg/dL (8.5-10.1)
[2022-09-14 09:09] LABS: ALBUMIN 3.4 g/dl (3.4-5.0); BLOOD UREA NITROGEN 58.4 mg/dL (7-18); MAGNESIUM 2.5 mg/dL (1.8-2.4)
[2022-09-14 09:12] LABS: CREATININE 5.9 mg/dL (0.55-1.3)
[2022-09-14 09:13] LABS: BILIRUBIN,TOTAL 0.6 mg/dL (0.2-1); TOT PROT 7.8 g/dl (6.4-8.2)
[2022-09-14] MEDS ORDERED: SODIUM ZIRCONIUM CYCLOSILICATE (LOKELMA) 5 GM PACKET PO ONE (09:22)
[2022-09-14] MEDS: ISOSORBIDE MONONITRATE 60 MG TAB.SR.24H (FP) PO SCH (10:42)
[2022-09-14] MEDS: DOCUSATE SODIUM 100 MG CAPSULE (FP) PO SCH (10:42)
[2022-09-14] MEDS: cloNIDine HCL 0.1 MG TABLET PO SCH ×2 (10:42→21:14)
[2022-09-14] MEDS: busPIRone HCL 10 MG TABLET (FP) PO SCH ×2 (10:42→21:17)
[2022-09-14] MEDS: DULoxetine HCL 30 MG CAPSULE.DR PO SCH (10:42)
[2022-09-14] MEDS: SEVELAMER CARBONATE 2.4 GM POWDER PACKET PO SCH ×3 (10:42→17:01)
[2022-09-14] MEDS: PANTOPRAZOLE 40 MG TABLET PO SCH (10:43)
[2022-09-14] MEDS: NIFEdipine E.R. 90 MG TABLET PO SCH ×2 (10:43→21:14)
[2022-09-14] MEDS: LABETALOL HCL 100 MG TABLET (FP) PO SCH ×2 (10:43→21:14)
[2022-09-14] MEDS: FAMOTIDINE 20 MG TABLET PO SCH (10:43)
[2022-09-14] MEDS: BUDESONIDE/FORMETEROL FUMARATE 160/4.5 mcg INHALER IH SCH ×2 (10:57→21:16)
[2022-09-14] MEDS ORDERED: EPOETIN ALFA-EPBX 4,000 UNIT/ML VIAL SQ ONE ×2 (11:30→14:00)
[2022-09-14] MEDS ORDERED: SODIUM CHLORIDE 250 ML IV PRN (11:30)
[2022-09-14] MEDS ORDERED: BISACODYL 5 MG TABLET.DR (FP) PO ONE ×2 (11:34→17:02)
[2022-09-14] MEDS ORDERED: INSULIN (NOVOLOG) ASPART 100 UNITS/ML 10ML VIAL ONE ×2 (11:38→16:58)
[2022-09-14] MEDS: HEPARIN NA (PORCINE) 5,000 UNITS/ML 1ML VIAL SQ SCH ×2 (11:50→21:15)
[2022-09-14 17:03] VITALS: RESP 18
[2022-09-14] MEDS: ACETAMINOPHEN 1000 MG/100 ML BAG IVPB ONE ×2 (21:13→22:47)
[2022-09-14] MEDS ORDERED: ACETAMINOPHEN 325 MG TABLET (FP) PO ONE (22:50)
[2022-09-15] MEDS: POLYETHYLENE GLYCOL (HEALTHYLAX) 3350 17 GM PACKET PO SCH ×2 (05:07→15:43)
[2022-09-15] MEDS: hydrALAZINE HCL 50 MG TABLET (FP) PO SCH ×2 (05:07→15:42)
[2022-09-15] MEDS: LACTULOSE 20 GM/30 ML UDC (FOR ORAL USE ONLY) PO SCH ×2 (05:07→15:42)
[2022-09-15] MEDS: INSULIN SLIDING SCALE (NOVOLOG) 1 VIAL SQ SCH ×2 (06:04→12:15)
[2022-09-15] MEDS: SEVELAMER CARBONATE 2.4 GM POWDER PACKET PO SCH ×2 (07:56→12:17)
[2022-09-15 08:22] LABS: EOS % 2.4 % (0-4.5); HEMATOCRIT 33.1 % (32.4-45.2); HEMOGLOBIN 11.2 GM/dL (10.7-15.3); LYMPH % 21.3 % (8-40); MCH 32.6 pg (25.7-33.7); MCHC 33.7 g/dl (32.0-36.0); MEAN CELL VOLUME 96.7 fl (80-96); MEAN PLT VOLUME 8.8 fl (7.5-11.1); MONO % 12.1 % (3.8-10.2); NEUT % 62.2 % (42.8-82.8); PLATELET COUNT 195 10^3/uL (134-434); RBC 3.42 M/mm3 (3.60-5.2); RDW 15.7 % (11.6-15.6); WHITE BLOOD COUNT 5.3 K/mm3 (4.0-10.0)
[2022-09-15 08:42] LABS: POTASSIUM 4.9 mmol/L (3.5-5.1)
[2022-09-15 09:18] LABS: CALCIUM 8.9 mg/dL (8.5-10.1); MAGNESIUM 2.2 mg/dL (1.8-2.4)
[2022-09-15 09:19] LABS: BLOOD UREA NITROGEN 37.7 mg/dL (7-18)
[2022-09-15 09:22] LABS: CREATININE 4.4 mg/dL (0.55-1.3)
[2022-09-15 09:23] LABS: BILIRUBIN,TOTAL 0.5 mg/dL (0.2-1); TOT PROT 7.1 g/dl (6.4-8.2)
[2022-09-15] MEDS ORDERED: traMADol HCL 50 MG TABLET PO ONE (10:05)
[2022-09-15] MEDS: busPIRone HCL 10 MG TABLET (FP) PO SCH (10:34)
[2022-09-15] MEDS: HEPARIN NA (PORCINE) 5,000 UNITS/ML 1ML VIAL SQ SCH (10:34)
[2022-09-15] MEDS: DULoxetine HCL 30 MG CAPSULE.DR PO SCH (10:34)
[2022-09-15] MEDS: ISOSORBIDE MONONITRATE 60 MG TAB.SR.24H (FP) PO SCH (10:34)
[2022-09-15] MEDS: cloNIDine HCL 0.1 MG TABLET PO SCH (10:34)
[2022-09-15] MEDS: LABETALOL HCL 100 MG TABLET (FP) PO SCH (10:34)
[2022-09-15] MEDS: NIFEdipine E.R. 90 MG TABLET PO SCH (10:34)
[2022-09-15] MEDS: PANTOPRAZOLE 40 MG TABLET PO SCH (10:34)
[2022-09-15] MEDS: BUDESONIDE/FORMETEROL FUMARATE 160/4.5 mcg INHALER IH SCH (10:35)
[2022-09-15] MEDS ORDERED: INSULIN (NOVOLOG) ASPART 100 UNITS/ML 10ML VIAL ONE (12:12)
[2022-09-15 12:36] LABS: HEPATITIS B SURFACE AG MATERN NON-REACTIVE (NONREACTIVE)
[2022-09-15 16:09] VITALS: BP 139/65; PULSE 60; TEMP 97.3
== END 2022-09-15 16:13 | disposition home health service (06) | DRG 947 ==
LOC: JER 15:33 → JERBED 19:58 → J8W 23:46
PROVIDERS: ADMIT Internal Medicine; ATTEND Nurse Practitioner Family
PROC: 0W9G3ZX Drainage of Peritoneal Cavity, Percutaneous Approach, Diagnostic (ICD-10-PCS; principal; 2022-09-13)
PROC: 5A1D70Z Performance of Urinary Filtration, Intermittent, Less than 6 Hours Per Day (ICD-10-PCS; 2022-09-14)
DX: R18.8 Other ascites (principal); N18.6 End stage renal disease; I13.2 Hypertensive heart and chronic kidney disease with heart failure and with stage 5 chronic kidney disease, or end stage renal disease; I50.32 Chronic diastolic (congestive) heart failure; D64.9 Anemia, unspecified; E11.43 Type 2 diabetes mellitus with diabetic autonomic (poly)neuropathy; E11.22 Type 2 diabetes mellitus with diabetic chronic kidney disease; E11.42 Type 2 diabetes mellitus with diabetic polyneuropathy; K21.9 Gastro-esophageal reflux disease without esophagitis; Z99.2 Dependence on renal dialysis
CPT/HCPCS: 0241U-QW; 36415; 71045-TC-FY; 71250-TC; 73630-TC-RT-FY; 74176-TC; 76705-TC; 76942-TC; 80053; 82042; 82105; 82150; 82465; 82945; 82962; 82977; 83036; 83605; 83615; 83690; 83735; 83986; 84100; 84157; 84478; 85025; 85610; 85730; 86140; 86480; 86704; 86803; 86850; 86900; 86901; 87070; 87075; 87102; 87116; 87205; 87206; 87210; 87340; 87517; 88108; 88305-TC; 93005; 93010; 93306-TC; 93975; 94761; 99285-25; J1644; Q5106

== ENCOUNTER 2022-10-06 10:12 | Inpatient (IN) | payer OTHER ==
[2022-10-06 11:30] LABS: VENOUS BASE EXCESS 1.8 mmol/L (-2-2); VENOUS O2 SATURATION 91.6 % (70-80); VENOUS PCO2 38.3 mmHg (38-52); VENOUS PH 7.447 (7.310-7.410)
[2022-10-06 11:33] LABS: BASO % 1.5 % (0-2.0); EOS % 1.5 % (0-4.5); HEMATOCRIT 34.9 % (32.4-45.2); HEMOGLOBIN 11.5 GM/dL (10.7-15.3); LYMPH % 17.4 % (8-40); MCH 32.4 pg (25.7-33.7); MCHC 32.9 g/dl (32.0-36.0); MEAN CELL VOLUME 98.6 fl (80-96); MEAN PLT VOLUME 9.4 fl (7.5-11.1); MONO % 11.9 % (3.8-10.2); NEUT % 67.7 % (42.8-82.8); PLATELET COUNT 189 10^3/uL (134-434); RBC 3.54 M/mm3 (3.60-5.2); RDW 14.5 % (11.6-15.6); WHITE BLOOD COUNT 5.7 K/mm3 (4.0-10.0)
[2022-10-06 11:45] LABS: INR 1.18 (0.83-1.09); PROTHROMBIN TIME (PATIENT) 13.7 SEC (9.7-13.0)
[2022-10-06 11:47] LABS: ACTIVATED PTT 34.1 SECONDS (25.2-36.5)
[2022-10-06 11:49] LABS: POTASSIUM 5.4 mmol/L (3.5-5.1)
[2022-10-06 11:51] LABS: ALBUMIN 3.5 g/dl (3.4-5.0); BLOOD UREA NITROGEN 33.2 mg/dL (7-18); CALCIUM 9.6 mg/dL (8.5-10.1); MAGNESIUM 2.4 mg/dL (1.8-2.4)
[2022-10-06 11:54] LABS: CREATININE 4.3 mg/dL (0.55-1.3); PHOSPHOROUS 4.2 mg/dL (2.5-4.9)
[2022-10-06 11:56] LABS: BILIRUBIN,TOTAL 0.7 mg/dL (0.2-1)
[2022-10-06] MEDS ORDERED: ACETAMINOPHEN 1000 MG/100 ML BAG IVPB ONE (12:33)
[2022-10-06] MEDS ORDERED: ACETAMINOPHEN INJECTION 100 ML IVPB ONE (12:34)
[2022-10-06] MEDS ORDERED: ALBUTEROL SO4 2.5/IPRATROPIUM 0.5 INH SOL 3 ML VIAL.NEB. NEB PRN (16:38)
[2022-10-06] MEDS ORDERED: MECLIZINE HCL 25 MG TABLET (FP) PO PRN (16:38)
[2022-10-06 17:51] LABS: BF WBC & OTHER NUCLEATED CELLS 972 /mm3
[2022-10-06] MEDS ORDERED: SODIUM CHLORIDE 250 ML IV PRN (18:27)
[2022-10-06 20:27] LABS: BODY FLUID MACROPHAGES 32 %; BODY FLUID MESOTHELIAL 4 %; BODY FLUID MONOCYTE 5 %
[2022-10-06] MEDS ORDERED: INSULIN (NOVOLOG) ASPART 100 UNITS/ML 10ML VIAL ONE (22:15)
[2022-10-06] MEDS: ACETAMINOPHEN 325 MG TABLET (FP) PO PRN (22:34)
[2022-10-06] MEDS: LABETALOL HCL 100 MG TABLET (FP) PO SCH (22:35)
[2022-10-06] MEDS: HEPARIN NA (PORCINE) 5,000 UNITS/ML 1ML VIAL SQ SCH (22:35)
[2022-10-06] MEDS: cloNIDine HCL 0.1 MG TABLET PO SCH (22:35)
[2022-10-06] MEDS: busPIRone HCL 10 MG TABLET (FP) PO SCH (22:42)
[2022-10-06] MEDS: INSULIN SLIDING SCALE (NOVOLOG) 1 VIAL SQ SCH (22:45)
[2022-10-07] MEDS ORDERED: INSULIN (NOVOLOG) ASPART 100 UNITS/ML 10ML VIAL ONE (06:18)
[2022-10-07] MEDS: ACETAMINOPHEN 325 MG TABLET (FP) PO PRN ×2 (06:41→20:41)
[2022-10-07] MEDS: HEPARIN NA (PORCINE) 5,000 UNITS/ML 1ML VIAL SQ SCH ×3 (06:42→22:26)
[2022-10-07] MEDS: INSULIN SLIDING SCALE (NOVOLOG) 1 VIAL SQ SCH ×4 (06:43→22:56)
[2022-10-07 10:44] LABS: POTASSIUM 5.2 mmol/L (3.5-5.1)
[2022-10-07 10:48] LABS: ALBUMIN 3.1 g/dl (3.4-5.0); CALCIUM 8.9 mg/dL (8.5-10.1); MAGNESIUM 2.3 mg/dL (1.8-2.4)
[2022-10-07 10:49] LABS: BLOOD UREA NITROGEN 48.2 mg/dL (7-18)
[2022-10-07 10:52] LABS: CREATININE 5.3 mg/dL (0.55-1.3); PHOSPHOROUS 5.5 mg/dL (2.5-4.9)
[2022-10-07 10:53] LABS: BILIRUBIN,TOTAL 0.6 mg/dL (0.2-1); TOT PROT 7.1 g/dl (6.4-8.2)
[2022-10-07 11:36] LABS: BASO % 1.2 % (0-2.0); EOS % 3.2 % (0-4.5); HEMATOCRIT 32.7 % (32.4-45.2); LYMPH % 21.8 % (8-40); MCH 32.1 pg (25.7-33.7); MCHC 33.5 g/dl (32.0-36.0); MEAN CELL VOLUME 95.8 fl (80-96); MEAN PLT VOLUME 9.5 fl (7.5-11.1); MONO % 13.4 % (3.8-10.2); NEUT % 60.4 % (42.8-82.8); PLATELET COUNT 177 10^3/uL (134-434); RBC 3.42 M/mm3 (3.60-5.2); RDW 14.5 % (11.6-15.6); WHITE BLOOD COUNT 5.1 K/mm3 (4.0-10.0)
[2022-10-07] MEDS: DOCUSATE SODIUM 100 MG CAPSULE (FP) PO SCH (13:48)
[2022-10-07] MEDS: busPIRone HCL 10 MG TABLET (FP) PO SCH ×2 (13:49→22:27)
[2022-10-07] MEDS: LABETALOL HCL 100 MG TABLET (FP) PO SCH ×2 (13:49→22:26)
[2022-10-07] MEDS: cloNIDine HCL 0.1 MG TABLET PO SCH ×2 (13:49→22:28)
[2022-10-07] MEDS: ISOSORBIDE MONONITRATE 60 MG TAB.SR.24H (FP) PO SCH (13:49)
[2022-10-07] MEDS: NIFEdipine E.R. 90 MG TABLET PO SCH (13:49)
[2022-10-07] MEDS: SEVELAMER CARBONATE 2.4 GM POWDER PACKET PO SCH (19:12)
[2022-10-07] MEDS: hydrALAZINE HCL 50 MG TABLET (FP) PO SCH (22:29)
[2022-10-08] MEDS: HEPARIN NA (PORCINE) 5,000 UNITS/ML 1ML VIAL SQ SCH ×4 (06:57→21:24)
[2022-10-08] MEDS: hydrALAZINE HCL 50 MG TABLET (FP) PO SCH ×4 (06:57→21:23)
[2022-10-08] MEDS: INSULIN SLIDING SCALE (NOVOLOG) 1 VIAL SQ SCH ×4 (08:24→21:37)
[2022-10-08] MEDS: cloNIDine HCL 0.1 MG TABLET PO SCH ×2 (09:13→21:20)
[2022-10-08] MEDS: NIFEdipine E.R. 90 MG TABLET PO SCH (09:13)
[2022-10-08] MEDS: ISOSORBIDE MONONITRATE 60 MG TAB.SR.24H (FP) PO SCH (09:13)
[2022-10-08] MEDS: busPIRone HCL 10 MG TABLET (FP) PO SCH ×2 (09:13→21:23)
[2022-10-08] MEDS: LABETALOL HCL 100 MG TABLET (FP) PO SCH ×2 (09:13→21:24)
[2022-10-08] MEDS: DOCUSATE SODIUM 100 MG CAPSULE (FP) PO SCH (09:13)
[2022-10-08] MEDS: SEVELAMER CARBONATE 2.4 GM POWDER PACKET PO SCH ×3 (09:18→17:48)
[2022-10-08 09:41] LABS: POTASSIUM 4.3 mmol/L (3.5-5.1)
[2022-10-08 09:46] LABS: CALCIUM 9.2 mg/dL (8.5-10.1); MAGNESIUM 2.1 mg/dL (1.8-2.4)
[2022-10-08 09:47] LABS: BLOOD UREA NITROGEN 37.1 mg/dL (7-18)
[2022-10-08 09:49] LABS: PHOSPHOROUS 4.7 mg/dL (2.5-4.9)
[2022-10-08 09:50] LABS: TOT PROT 7.1 g/dl (6.4-8.2)
[2022-10-08 09:53] LABS: CREATININE 4.2 mg/dL (0.55-1.3)
[2022-10-08 09:55] LABS: BILIRUBIN,TOTAL 0.5 mg/dL (0.2-1)
[2022-10-08 10:04] LABS: HEMATOCRIT 33.2 % (32.4-45.2); MCH 31.9 pg (25.7-33.7); MEAN CELL VOLUME 96.6 fl (80-96); MEAN PLT VOLUME 9.5 fl (7.5-11.1); PLATELET COUNT 183 10^3/uL (134-434); RBC 3.44 M/mm3 (3.60-5.2); RDW 14.8 % (11.6-15.6); WHITE BLOOD COUNT 4.9 K/mm3 (4.0-10.0)
[2022-10-08] MEDS ORDERED: INSULIN (NOVOLOG) ASPART 100 UNITS/ML 10ML VIAL ONE (11:37)
[2022-10-08] MEDS: LACTULOSE 20 GM/30 ML UDC (FOR ORAL USE ONLY) PO PRN ×2 (15:48→22:50)
[2022-10-09] MEDS: HEPARIN NA (PORCINE) 5,000 UNITS/ML 1ML VIAL SQ SCH ×3 (05:56→22:54)
[2022-10-09] MEDS: hydrALAZINE HCL 50 MG TABLET (FP) PO SCH ×3 (05:56→22:52)
[2022-10-09] MEDS: INSULIN SLIDING SCALE (NOVOLOG) 1 VIAL SQ SCH ×4 (06:00→22:55)
[2022-10-09] MEDS: SEVELAMER CARBONATE 2.4 GM POWDER PACKET PO SCH ×3 (08:41→17:15)
[2022-10-09] MEDS: DOCUSATE SODIUM 100 MG CAPSULE (FP) PO SCH (10:28)
[2022-10-09] MEDS: busPIRone HCL 10 MG TABLET (FP) PO SCH ×2 (10:28→22:55)
[2022-10-09] MEDS: ISOSORBIDE MONONITRATE 60 MG TAB.SR.24H (FP) PO SCH (10:29)
[2022-10-09] MEDS: NIFEdipine E.R. 90 MG TABLET PO SCH (10:29)
[2022-10-09] MEDS: LACTULOSE 20 GM/30 ML UDC (FOR ORAL USE ONLY) PO PRN (10:29)
[2022-10-09] MEDS: cloNIDine HCL 0.1 MG TABLET PO SCH ×2 (10:29→22:52)
[2022-10-09] MEDS: LABETALOL HCL 100 MG TABLET (FP) PO SCH ×2 (10:29→22:54)
[2022-10-09] MEDS ORDERED: BISACODYL 5 MG TABLET.DR (FP) PO ONE (16:58)
[2022-10-09] MEDS ORDERED: INSULIN (NOVOLOG) ASPART 100 UNITS/ML 10ML VIAL ONE (19:05)
[2022-10-10] MEDS: ACETAMINOPHEN 325 MG TABLET (FP) PO PRN (04:31)
[2022-10-10] MEDS: HEPARIN NA (PORCINE) 5,000 UNITS/ML 1ML VIAL SQ SCH ×3 (06:03→21:50)
[2022-10-10] MEDS: hydrALAZINE HCL 50 MG TABLET (FP) PO SCH ×3 (06:06→21:51)
[2022-10-10] MEDS: INSULIN SLIDING SCALE (NOVOLOG) 1 VIAL SQ SCH ×4 (06:09→21:51)
[2022-10-10] MEDS: SEVELAMER CARBONATE 2.4 GM POWDER PACKET PO SCH ×3 (08:05→16:38)
[2022-10-10] MEDS: LABETALOL HCL 100 MG TABLET (FP) PO SCH ×2 (09:28→21:51)
[2022-10-10] MEDS: ISOSORBIDE MONONITRATE 60 MG TAB.SR.24H (FP) PO SCH (09:28)
[2022-10-10] MEDS: busPIRone HCL 10 MG TABLET (FP) PO SCH ×2 (09:28→21:51)
[2022-10-10] MEDS: cloNIDine HCL 0.1 MG TABLET PO SCH ×2 (09:28→21:51)
[2022-10-10] MEDS: DOCUSATE SODIUM 100 MG CAPSULE (FP) PO SCH (09:28)
[2022-10-10] MEDS: NIFEdipine E.R. 90 MG TABLET PO SCH (09:28)
[2022-10-10 11:23] LABS: BASO % 1.4 % (0-2.0); EOS % 2.9 % (0-4.5); HEMATOCRIT 32.2 % (32.4-45.2); HEMOGLOBIN 10.6 GM/dL (10.7-15.3); LYMPH % 17.8 % (8-40); MCH 32.2 pg (25.7-33.7); MCHC 32.9 g/dl (32.0-36.0); MEAN CELL VOLUME 97.7 fl (80-96); MEAN PLT VOLUME 9.4 fl (7.5-11.1); MONO % 10.4 % (3.8-10.2); NEUT % 67.5 % (42.8-82.8); PLATELET COUNT 202 10^3/uL (134-434); RDW 14.3 % (11.6-15.6); WHITE BLOOD COUNT 6.1 K/mm3 (4.0-10.0)
[2022-10-10 11:52] LABS: POTASSIUM 5.1 mmol/L (3.5-5.1)
[2022-10-10 11:54] LABS: ALBUMIN 3.2 g/dl (3.4-5.0); CALCIUM 9.3 mg/dL (8.5-10.1); MAGNESIUM 2.4 mg/dL (1.8-2.4)
[2022-10-10 11:57] LABS: CREATININE 6.9 mg/dL (0.55-1.3); PHOSPHOROUS 4.7 mg/dL (2.5-4.9)
[2022-10-10 11:59] LABS: BILIRUBIN,TOTAL 0.6 mg/dL (0.2-1); TOT PROT 7.5 g/dl (6.4-8.2)
[2022-10-10 12:08] LABS: BLOOD UREA NITROGEN 79.7 mg/dL (7-18)
[2022-10-10] MEDS ORDERED: INSULIN (NOVOLOG) ASPART 100 UNITS/ML 10ML VIAL ONE ×2 (16:28→21:34)
[2022-10-11] MEDS: hydrALAZINE HCL 50 MG TABLET (FP) PO SCH ×3 (06:36→22:53)
[2022-10-11] MEDS: INSULIN SLIDING SCALE (NOVOLOG) 1 VIAL SQ SCH ×4 (06:36→22:54)
[2022-10-11] MEDS: HEPARIN NA (PORCINE) 5,000 UNITS/ML 1ML VIAL SQ SCH ×3 (06:36→22:54)
[2022-10-11] MEDS: SEVELAMER CARBONATE 2.4 GM POWDER PACKET PO SCH ×3 (08:38→18:11)
[2022-10-11 09:07] LABS: ALBUMIN 3.1 g/dl (3.4-5.0); BLOOD UREA NITROGEN 57.2 mg/dL (7-18); CALCIUM 9.3 mg/dL (8.5-10.1); MAGNESIUM 2.9 mg/dL (1.8-2.4)
[2022-10-11 09:10] LABS: PHOSPHOROUS 4.4 mg/dL (2.5-4.9)
[2022-10-11 09:11] LABS: CREATININE 5.3 mg/dL (0.55-1.3)
[2022-10-11 09:12] LABS: BILIRUBIN,TOTAL 0.6 mg/dL (0.2-1); TOT PROT 7.1 g/dl (6.4-8.2)
[2022-10-11] MEDS: busPIRone HCL 10 MG TABLET (FP) PO SCH ×2 (10:21→22:53)
[2022-10-11] MEDS: DOCUSATE SODIUM 100 MG CAPSULE (FP) PO SCH (10:21)
[2022-10-11] MEDS: cloNIDine HCL 0.1 MG TABLET PO SCH ×2 (10:21→22:53)
[2022-10-11] MEDS: ACETAMINOPHEN 325 MG TABLET (FP) PO PRN (10:21)
[2022-10-11] MEDS: NIFEdipine E.R. 90 MG TABLET PO SCH (10:22)
[2022-10-11] MEDS: ISOSORBIDE MONONITRATE 60 MG TAB.SR.24H (FP) PO SCH (10:22)
[2022-10-11] MEDS: LABETALOL HCL 100 MG TABLET (FP) PO SCH ×2 (10:22→22:54)
[2022-10-11] MEDS ORDERED: SODIUM CHLORIDE 250 ML IV PRN (13:09)
[2022-10-11] MEDS ORDERED: CEFTRIAXONE 1 GM in DEXTROSE 5%-WATER - 50 ML IVPB SCH (14:00)
[2022-10-11] MEDS ORDERED: INSULIN (NOVOLOG) ASPART 100 UNITS/ML 10ML VIAL ONE ×2 (16:31→17:47)
[2022-10-11] MEDS: POLYETHYLENE GLYCOL (HEALTHYLAX) 3350 17 GM PACKET PO SCH ×2 (16:37→22:53)
[2022-10-11] MEDS: CEFTRIAXONE 2 GM in DEXTROSE 5%-WATER 100 ML IVPB SCH (18:46)
[2022-10-12] MEDS: ACETAMINOPHEN 325 MG TABLET (FP) PO PRN ×3 (00:48→21:37)
[2022-10-12] MEDS: HEPARIN NA (PORCINE) 5,000 UNITS/ML 1ML VIAL SQ SCH ×3 (06:05→21:37)
[2022-10-12] MEDS: POLYETHYLENE GLYCOL (HEALTHYLAX) 3350 17 GM PACKET PO SCH ×2 (06:06→21:38)
[2022-10-12] MEDS: INSULIN SLIDING SCALE (NOVOLOG) 1 VIAL SQ SCH ×4 (07:13→21:52)
[2022-10-12] MEDS: hydrALAZINE HCL 50 MG TABLET (FP) PO SCH ×4 (07:43→21:36)
[2022-10-12] MEDS ORDERED: SODIUM CHLORIDE 250 ML IV PRN (08:17)
[2022-10-12] MEDS: SEVELAMER CARBONATE 2.4 GM POWDER PACKET PO SCH ×3 (08:30→18:32)
[2022-10-12] MEDS ORDERED: EPOETIN ALFA-EPBX 4,000 UNIT/ML VIAL IVPUSH ONE (08:45)
[2022-10-12 09:21] LABS: HEMATOCRIT 33.1 % (32.4-45.2); HEMOGLOBIN 10.9 GM/dL (10.7-15.3); MCHC 32.8 g/dl (32.0-36.0); MEAN CELL VOLUME 97.7 fl (80-96); MEAN PLT VOLUME 9.7 fl (7.5-11.1); PLATELET COUNT 184 10^3/uL (134-434); RBC 3.39 M/mm3 (3.60-5.2); WHITE BLOOD COUNT 4.9 K/mm3 (4.0-10.0)
[2022-10-12 09:29] LABS: POTASSIUM 5.3 mmol/L (3.5-5.1)
[2022-10-12 09:40] LABS: ALBUMIN 3.4 g/dl (3.4-5.0); CREATININE 6.3 mg/dL (0.55-1.3)
[2022-10-12 09:41] LABS: CALCIUM 9.7 mg/dL (8.5-10.1)
[2022-10-12 09:42] LABS: BILIRUBIN,TOTAL 0.5 mg/dL (0.2-1); BLOOD UREA NITROGEN 74.4 mg/dL (7-18); TOT PROT 7.6 g/dl (6.4-8.2)
[2022-10-12] MEDS: cloNIDine HCL 0.1 MG TABLET PO SCH ×2 (12:45→21:37)
[2022-10-12] MEDS: ISOSORBIDE MONONITRATE 60 MG TAB.SR.24H (FP) PO SCH (12:45)
[2022-10-12] MEDS: busPIRone HCL 10 MG TABLET (FP) PO SCH ×2 (12:45→21:51)
[2022-10-12] MEDS ORDERED: LIDOCAINE 5% TOPICAL PATCH TP SCH (12:45)
[2022-10-12] MEDS: CEFTRIAXONE 2 GM in DEXTROSE 5%-WATER 100 ML IVPB SCH ×2 (12:46→19:03)
[2022-10-12] MEDS: LABETALOL HCL 100 MG TABLET (FP) PO SCH ×2 (12:46→21:37)
[2022-10-12] MEDS: NIFEdipine E.R. 90 MG TABLET PO SCH (12:46)
[2022-10-12] MEDS ORDERED: LIDOCAINE HCL 1%, 10 MG/ML (50 mL VIAL) SQ ONE (14:31)
[2022-10-12] MEDS: ALBUMIN HUMAN 25% 100 ML VIAL IV SCH ×2 (15:22→16:56)
[2022-10-12] MEDS ORDERED: INSULIN (NOVOLOG) ASPART 100 UNITS/ML 10ML VIAL ONE ×2 (16:35→21:50)
[2022-10-12] MEDS ORDERED: LIDOCAINE PATCH REMOVAL MC SCH (22:00)
[2022-10-13] MEDS: hydrALAZINE HCL 50 MG TABLET (FP) PO SCH ×3 (05:25→21:18)
[2022-10-13] MEDS: HEPARIN NA (PORCINE) 5,000 UNITS/ML 1ML VIAL SQ SCH ×3 (05:25→21:18)
[2022-10-13] MEDS: INSULIN SLIDING SCALE (NOVOLOG) 1 VIAL SQ SCH ×4 (06:08→21:20)
[2022-10-13] MEDS: SEVELAMER CARBONATE 2.4 GM POWDER PACKET PO SCH ×4 (09:04→16:59)
[2022-10-13] MEDS: CEFTRIAXONE 2 GM in DEXTROSE 5%-WATER 100 ML IVPB SCH (09:18)
[2022-10-13] MEDS: FUROSEMIDE 40 MG TABLET (FP) PO SCH (09:19)
[2022-10-13] MEDS: cloNIDine HCL 0.1 MG TABLET PO SCH ×2 (09:19→21:18)
[2022-10-13] MEDS: NIFEdipine E.R. 90 MG TABLET PO SCH (09:20)
[2022-10-13] MEDS: POLYETHYLENE GLYCOL (HEALTHYLAX) 3350 17 GM PACKET PO SCH ×2 (09:22→21:19)
[2022-10-13] MEDS: ISOSORBIDE MONONITRATE 60 MG TAB.SR.24H (FP) PO SCH (10:29)
[2022-10-13] MEDS: LABETALOL HCL 100 MG TABLET (FP) PO SCH ×2 (10:31→21:18)
[2022-10-13] MEDS: busPIRone HCL 10 MG TABLET (FP) PO SCH ×2 (10:36→21:20)
[2022-10-13 11:55] LABS: POTASSIUM 5.3 mmol/L (3.5-5.1)
[2022-10-13] MEDS ORDERED: INSULIN (NOVOLOG) ASPART 100 UNITS/ML 10ML VIAL ONE (11:56)
[2022-10-13 11:58] LABS: ALBUMIN 3.5 g/dl (3.4-5.0); BLOOD UREA NITROGEN 56.5 mg/dL (7-18)
[2022-10-13 12:01] LABS: CREATININE 5.1 mg/dL (0.55-1.3)
[2022-10-13 12:02] LABS: TOT PROT 7.7 g/dl (6.4-8.2)
[2022-10-13 12:03] LABS: BILIRUBIN,TOTAL 0.6 mg/dL (0.2-1)
[2022-10-13] MEDS: LIDOCAINE 5% TOPICAL PATCH TP SCH (12:09)
[2022-10-13 14:10] LABS: CARCINOEMBRYONIC ANTIGEN 2.2 ng/mL (0.0-4.7)
[2022-10-13 16:43] LABS: BF WBC & OTHER NUCLEATED CELLS 622 /mm3
[2022-10-13 17:26] LABS: BODY FLUID MACROPHAGES 50 %; BODY FLUID MESOTHELIAL 33 %; BODY FLUID MONOCYTE 10 %
[2022-10-13] MEDS: ALBUMIN HUMAN 25% 12.5 GM/50 ML VIAL IV SCH ×4 (17:47→19:03)
[2022-10-13] MEDS: LIDOCAINE PATCH REMOVAL MC SCH (21:20)
[2022-10-14] MEDS ORDERED: INSULIN (NOVOLOG) ASPART 100 UNITS/ML 10ML VIAL ONE ×3 (05:02→21:28)
[2022-10-14] MEDS: HEPARIN NA (PORCINE) 5,000 UNITS/ML 1ML VIAL SQ SCH ×3 (05:18→21:25)
[2022-10-14] MEDS: hydrALAZINE HCL 50 MG TABLET (FP) PO SCH ×3 (05:18→21:25)
[2022-10-14] MEDS: INSULIN SLIDING SCALE (NOVOLOG) 1 VIAL SQ SCH ×4 (06:08→21:29)
[2022-10-14] MEDS ORDERED: SODIUM CHLORIDE 250 ML IV PRN ×2 (07:36→23:08)
[2022-10-14 07:55] LABS: HEMATOCRIT 32.2 % (32.4-45.2); HEMOGLOBIN 10.7 GM/dL (10.7-15.3); MCH 32.1 pg (25.7-33.7); MCHC 33.3 g/dl (32.0-36.0); MEAN CELL VOLUME 96.3 fl (80-96); MEAN PLT VOLUME 9.3 fl (7.5-11.1); PLATELET COUNT 167 10^3/uL (134-434); RBC 3.34 M/mm3 (3.60-5.2); RDW 14.3 % (11.6-15.6); WHITE BLOOD COUNT 5.4 K/mm3 (4.0-10.0)
[2022-10-14] MEDS: SEVELAMER CARBONATE 2.4 GM POWDER PACKET PO SCH ×3 (08:00→17:34)
[2022-10-14 08:09] LABS: CHLORIDE 98 mmol/L (98-107); SODIUM 136 mmol/L (136-145)
[2022-10-14 08:17] LABS: CO2 28 mmol/L (21-32); GLUCOSE,RANDOM 274 mg/dL (74-106)
[2022-10-14 08:20] LABS: ANION GAP 10 MMOL/L (8-16); CREATININE 6.2 mg/dL (0.55-1.3); POTASSIUM 6.4 mmol/L (3.5-5.1)
[2022-10-14] MEDS ORDERED: EPOETIN ALFA-EPBX 4,000 UNIT/ML VIAL SQ ONE (09:00)
[2022-10-14] MEDS: busPIRone HCL 10 MG TABLET (FP) PO SCH ×2 (10:39→21:25)
[2022-10-14] MEDS: LIDOCAINE 5% TOPICAL PATCH TP SCH ×2 (10:39→14:17)
[2022-10-14] MEDS: cloNIDine HCL 0.1 MG TABLET PO SCH ×3 (10:40→21:25)
[2022-10-14] MEDS: ISOSORBIDE MONONITRATE 60 MG TAB.SR.24H (FP) PO SCH ×2 (10:40→14:17)
[2022-10-14] MEDS: POLYETHYLENE GLYCOL (HEALTHYLAX) 3350 17 GM PACKET PO SCH ×3 (10:40→21:26)
[2022-10-14] MEDS: CEFTRIAXONE 2 GM in DEXTROSE 5%-WATER 100 ML IVPB SCH ×2 (10:40→14:18)
[2022-10-14] MEDS: LABETALOL HCL 100 MG TABLET (FP) PO SCH ×2 (10:40→14:16)
[2022-10-14] MEDS: FUROSEMIDE 40 MG TABLET (FP) PO SCH ×2 (10:40→14:16)
[2022-10-14] MEDS: NIFEdipine E.R. 90 MG TABLET PO SCH ×2 (10:40→14:16)
[2022-10-14] MEDS ORDERED: MINERAL OIL ENEMA 133 ML ENEMA RC ONE ×2 (14:46→14:47)
[2022-10-14 15:07] LABS: BODY FLUID ALBUMIN 3.1 g/dL (Not Estab.)
[2022-10-14] MEDS: LABETALOL HCL 200 MG TABLET (FP) PO SCH (21:25)
[2022-10-14] MEDS: LIDOCAINE PATCH REMOVAL MC SCH (21:26)
[2022-10-15] MEDS ORDERED: INSULIN (NOVOLOG) ASPART 100 UNITS/ML 10ML VIAL ONE ×5 (05:22→21:32)
[2022-10-15] MEDS: hydrALAZINE HCL 50 MG TABLET (FP) PO SCH ×4 (05:52→21:56)
[2022-10-15] MEDS: HEPARIN NA (PORCINE) 5,000 UNITS/ML 1ML VIAL SQ SCH ×3 (05:52→21:56)
[2022-10-15] MEDS: INSULIN SLIDING SCALE (NOVOLOG) 1 VIAL SQ SCH ×4 (06:04→22:05)
[2022-10-15] MEDS: SEVELAMER CARBONATE 2.4 GM POWDER PACKET PO SCH ×4 (08:21→17:11)
[2022-10-15 10:11] LABS: POTASSIUM 4.7 mmol/L (3.5-5.1)
[2022-10-15 10:15] LABS: ALBUMIN 3.7 g/dl (3.4-5.0); MAGNESIUM 2.3 mg/dL (1.8-2.4)
[2022-10-15 10:18] LABS: CREATININE 4.9 mg/dL (0.55-1.3); PHOSPHOROUS 5.1 mg/dL (2.5-4.9)
[2022-10-15 10:20] LABS: BILIRUBIN,TOTAL 0.5 mg/dL (0.2-1); TOT PROT 7.9 g/dl (6.4-8.2)
[2022-10-15 10:26] LABS: BLOOD UREA NITROGEN 56.3 mg/dL (7-18)
[2022-10-15] MEDS: ISOSORBIDE MONONITRATE 60 MG TAB.SR.24H (FP) PO SCH (13:08)
[2022-10-15] MEDS: FUROSEMIDE 40 MG TABLET (FP) PO SCH (13:08)
[2022-10-15] MEDS: LABETALOL HCL 200 MG TABLET (FP) PO SCH ×2 (13:08→21:53)
[2022-10-15] MEDS: busPIRone HCL 10 MG TABLET (FP) PO SCH ×2 (13:08→21:56)
[2022-10-15] MEDS: LIDOCAINE 5% TOPICAL PATCH TP SCH (13:09)
[2022-10-15] MEDS: POLYETHYLENE GLYCOL (HEALTHYLAX) 3350 17 GM PACKET PO SCH ×2 (13:09→23:45)
[2022-10-15] MEDS: CEFTRIAXONE 2 GM in DEXTROSE 5%-WATER 100 ML IVPB SCH (13:12)
[2022-10-15] MEDS: cloNIDine HCL 0.1 MG TABLET PO SCH ×2 (13:13→21:53)
[2022-10-15] MEDS ORDERED: PEG 3350/NA SULF BICARB CL/KCL 4000 ML SOLN.RECON PO ONE (14:30)
[2022-10-15] MEDS: LIDOCAINE PATCH REMOVAL MC SCH (22:11)
[2022-10-16] MEDS: hydrALAZINE HCL 50 MG TABLET (FP) PO SCH ×3 (05:58→21:23)
[2022-10-16] MEDS: HEPARIN NA (PORCINE) 5,000 UNITS/ML 1ML VIAL SQ SCH ×3 (05:58→21:23)
[2022-10-16] MEDS: INSULIN SLIDING SCALE (NOVOLOG) 1 VIAL SQ SCH ×4 (06:03→21:38)
[2022-10-16] MEDS: SEVELAMER CARBONATE 2.4 GM POWDER PACKET PO SCH ×3 (08:07→18:23)
[2022-10-16] MEDS: POLYETHYLENE GLYCOL (HEALTHYLAX) 3350 17 GM PACKET PO SCH ×2 (09:46→21:23)
[2022-10-16] MEDS: FUROSEMIDE 40 MG TABLET (FP) PO SCH (09:47)
[2022-10-16] MEDS: LABETALOL HCL 200 MG TABLET (FP) PO SCH ×2 (09:47→21:23)
[2022-10-16] MEDS: busPIRone HCL 10 MG TABLET (FP) PO SCH ×2 (09:47→21:23)
[2022-10-16] MEDS: cloNIDine HCL 0.1 MG TABLET PO SCH ×2 (09:47→21:23)
[2022-10-16] MEDS: ISOSORBIDE MONONITRATE 60 MG TAB.SR.24H (FP) PO SCH (09:47)
[2022-10-16] MEDS: LIDOCAINE 5% TOPICAL PATCH TP SCH (09:47)
[2022-10-16] MEDS: CEFTRIAXONE 2 GM in DEXTROSE 5%-WATER 100 ML IVPB SCH (09:48)
[2022-10-16 09:54] LABS: CALCIUM 9.7 mg/dL (8.5-10.1)
[2022-10-16 09:55] LABS: ALBUMIN 3.3 g/dl (3.4-5.0)
[2022-10-16 09:58] LABS: CREATININE 4.4 mg/dL (0.55-1.3)
[2022-10-16 09:59] LABS: BILIRUBIN,TOTAL 1.1 mg/dL (0.2-1); TOT PROT 7.1 g/dl (6.4-8.2)
[2022-10-16] MEDS ORDERED: INSULIN (NOVOLOG) ASPART 100 UNITS/ML 10ML VIAL ONE ×4 (11:19→21:18)
[2022-10-16] MEDS ORDERED: SODIUM CHLORIDE 250 ML IV PRN (14:30)
[2022-10-16] MEDS: LIDOCAINE PATCH REMOVAL MC SCH (21:23)
[2022-10-17] MEDS: ALBUTEROL SO4 HFA INHALER IH PRN (00:15)
[2022-10-17] MEDS: hydrALAZINE HCL 50 MG TABLET (FP) PO SCH ×3 (05:15→22:39)
[2022-10-17] MEDS: HEPARIN NA (PORCINE) 5,000 UNITS/ML 1ML VIAL SQ SCH ×3 (05:15→22:40)
[2022-10-17] MEDS: INSULIN SLIDING SCALE (NOVOLOG) 1 VIAL SQ SCH ×4 (06:07→22:57)
[2022-10-17] MEDS: ACETAMINOPHEN 325 MG TABLET (FP) PO PRN ×2 (07:56→22:51)
[2022-10-17] MEDS: SEVELAMER CARBONATE 2.4 GM POWDER PACKET PO SCH ×3 (08:02→16:46)
[2022-10-17] MEDS: FUROSEMIDE 40 MG TABLET (FP) PO SCH (11:31)
[2022-10-17] MEDS: ISOSORBIDE MONONITRATE 60 MG TAB.SR.24H (FP) PO SCH (11:31)
[2022-10-17] MEDS: LABETALOL HCL 200 MG TABLET (FP) PO SCH ×2 (11:31→22:40)
[2022-10-17] MEDS: cloNIDine HCL 0.1 MG TABLET PO SCH ×2 (11:31→22:39)
[2022-10-17] MEDS: LIDOCAINE 5% TOPICAL PATCH TP SCH (11:32)
[2022-10-17] MEDS: busPIRone HCL 10 MG TABLET (FP) PO SCH ×2 (11:32→22:39)
[2022-10-17] MEDS: POLYETHYLENE GLYCOL (HEALTHYLAX) 3350 17 GM PACKET PO SCH ×2 (11:33→22:39)
[2022-10-17] MEDS ORDERED: INSULIN (NOVOLOG) ASPART 100 UNITS/ML 10ML VIAL ONE (17:11)
[2022-10-17] MEDS: LIDOCAINE PATCH REMOVAL MC SCH (22:56)
[2022-10-18] MEDS: HEPARIN NA (PORCINE) 5,000 UNITS/ML 1ML VIAL SQ SCH ×3 (05:37→22:54)
[2022-10-18] MEDS: hydrALAZINE HCL 50 MG TABLET (FP) PO SCH ×3 (05:37→22:54)
[2022-10-18] MEDS: INSULIN SLIDING SCALE (NOVOLOG) 1 VIAL SQ SCH ×4 (06:01→23:15)
[2022-10-18] MEDS: SEVELAMER CARBONATE 2.4 GM POWDER PACKET PO SCH ×3 (08:27→20:00)
[2022-10-18] MEDS ORDERED: TRIMETHOBENZAMIDE HCL 200MG/2ML INJ IM ONE (08:35)
[2022-10-18 10:13] LABS: POTASSIUM 5.5 mmol/L (3.5-5.1)
[2022-10-18 10:19] LABS: CALCIUM 8.9 mg/dL (8.5-10.1)
[2022-10-18 10:20] LABS: BLOOD UREA NITROGEN 48.1 mg/dL (7-18)
[2022-10-18 10:23] LABS: CREATININE 4.5 mg/dL (0.55-1.3)
[2022-10-18] MEDS: cloNIDine HCL 0.1 MG TABLET PO SCH ×2 (11:36→22:55)
[2022-10-18] MEDS: LIDOCAINE 5% TOPICAL PATCH TP SCH (11:36)
[2022-10-18] MEDS: LABETALOL HCL 200 MG TABLET (FP) PO SCH ×2 (11:37→22:54)
[2022-10-18] MEDS: busPIRone HCL 10 MG TABLET (FP) PO SCH ×2 (11:38→23:38)
[2022-10-18] MEDS: ISOSORBIDE MONONITRATE 60 MG TAB.SR.24H (FP) PO SCH (11:38)
[2022-10-18] MEDS ORDERED: INSULIN (NOVOLOG) ASPART 100 UNITS/ML 10ML VIAL ONE ×2 (11:47→16:56)
[2022-10-18] MEDS: FUROSEMIDE 40 MG TABLET (FP) PO SCH (11:54)
[2022-10-18] MEDS: POLYETHYLENE GLYCOL (HEALTHYLAX) 3350 17 GM PACKET PO SCH ×3 (11:54→22:55)
[2022-10-18] MEDS ORDERED: TRIMETHOBENZAMIDE HCL 200MG/2ML INJ IM PRN (17:16)
[2022-10-19] MEDS: LIDOCAINE PATCH REMOVAL MC SCH ×3 (00:08→22:29)
[2022-10-19] MEDS: ACETAMINOPHEN 325 MG TABLET (FP) PO PRN (00:49)
[2022-10-19] MEDS: hydrALAZINE HCL 50 MG TABLET (FP) PO SCH ×4 (06:25→22:18)
[2022-10-19] MEDS: HEPARIN NA (PORCINE) 5,000 UNITS/ML 1ML VIAL SQ SCH ×4 (06:25→22:20)
[2022-10-19] MEDS: INSULIN SLIDING SCALE (NOVOLOG) 1 VIAL SQ SCH ×5 (06:31→22:18)
[2022-10-19] MEDS ORDERED: EPOETIN ALFA-EPBX 4,000 UNIT/ML VIAL SQ ONE (07:22)
[2022-10-19] MEDS ORDERED: SODIUM CHLORIDE 250 ML IV PRN (07:22)
[2022-10-19] MEDS: SEVELAMER CARBONATE 2.4 GM POWDER PACKET PO SCH ×3 (08:36→17:29)
[2022-10-19] MEDS: busPIRone HCL 10 MG TABLET (FP) PO SCH ×2 (09:34→22:18)
[2022-10-19] MEDS: cloNIDine HCL 0.1 MG TABLET PO SCH ×2 (09:35→22:18)
[2022-10-19] MEDS: DULoxetine HCL 30 MG CAPSULE.DR PO SCH (09:36)
[2022-10-19] MEDS: ISOSORBIDE MONONITRATE 60 MG TAB.SR.24H (FP) PO SCH (09:36)
[2022-10-19] MEDS: POLYETHYLENE GLYCOL (HEALTHYLAX) 3350 17 GM PACKET PO SCH ×2 (09:36→22:20)
[2022-10-19] MEDS: FUROSEMIDE 40 MG TABLET (FP) PO SCH (09:36)
[2022-10-19] MEDS: LABETALOL HCL 200 MG TABLET (FP) PO SCH ×2 (09:36→22:18)
[2022-10-19] MEDS: PANTOPRAZOLE 40 MG TABLET PO SCH (09:37)
[2022-10-19 09:59] LABS: HEMATOCRIT 27.8 % (32.4-45.2); HEMOGLOBIN 9.4 GM/dL (10.7-15.3); MCHC 33.8 g/dl (32.0-36.0); MEAN CELL VOLUME 94.9 fl (80-96); MEAN PLT VOLUME 9.3 fl (7.5-11.1); PLATELET COUNT 169 10^3/uL (134-434); RBC 2.93 M/mm3 (3.60-5.2); RDW 14.4 % (11.6-15.6); WHITE BLOOD COUNT 4.9 K/mm3 (4.0-10.0)
[2022-10-19 10:29] LABS: POTASSIUM 5.5 mmol/L (3.5-5.1)
[2022-10-19 10:33] LABS: BLOOD UREA NITROGEN 67.5 mg/dL (7-18)
[2022-10-19 10:36] LABS: CREATININE 5.7 mg/dL (0.55-1.3)
[2022-10-19] MEDS: LIDOCAINE 5% TOPICAL PATCH TP SCH (11:55)
[2022-10-20] MEDS: ALBUTEROL SO4 HFA INHALER IH PRN (06:38)
[2022-10-20] MEDS: HEPARIN NA (PORCINE) 5,000 UNITS/ML 1ML VIAL SQ SCH ×2 (06:39→14:29)
[2022-10-20] MEDS: INSULIN SLIDING SCALE (NOVOLOG) 1 VIAL SQ SCH ×4 (06:46→21:52)
[2022-10-20] MEDS: hydrALAZINE HCL 50 MG TABLET (FP) PO SCH ×3 (06:59→21:47)
[2022-10-20] MEDS: SEVELAMER CARBONATE 2.4 GM POWDER PACKET PO SCH ×4 (08:00→19:29)
[2022-10-20] MEDS ORDERED: SODIUM CHLORIDE 250 ML IV PRN ×2 (08:53→19:24)
[2022-10-20 10:00] LABS: POTASSIUM 4.5 mmol/L (3.5-5.1)
[2022-10-20 10:02] LABS: ALBUMIN 2.8 g/dl (3.4-5.0)
[2022-10-20 10:06] LABS: CREATININE 3.6 mg/dL (0.55-1.3)
[2022-10-20 10:08] LABS: BILIRUBIN,TOTAL 0.6 mg/dL (0.2-1); TOT PROT 6.1 g/dl (6.4-8.2)
[2022-10-20 10:11] LABS: BLOOD UREA NITROGEN 36.4 mg/dL (7-18)
[2022-10-20] MEDS: LIDOCAINE 5% TOPICAL PATCH TP SCH (14:27)
[2022-10-20] MEDS: FUROSEMIDE 40 MG TABLET (FP) PO SCH (14:27)
[2022-10-20] MEDS: POLYETHYLENE GLYCOL (HEALTHYLAX) 3350 17 GM PACKET PO SCH ×3 (14:27→21:48)
[2022-10-20] MEDS: PANTOPRAZOLE 40 MG TABLET PO SCH (14:28)
[2022-10-20] MEDS: cloNIDine HCL 0.1 MG TABLET PO SCH ×2 (14:28→21:47)
[2022-10-20] MEDS: ISOSORBIDE MONONITRATE 60 MG TAB.SR.24H (FP) PO SCH (14:28)
[2022-10-20] MEDS: LABETALOL HCL 200 MG TABLET (FP) PO SCH ×2 (14:28→21:47)
[2022-10-20] MEDS: busPIRone HCL 10 MG TABLET (FP) PO SCH ×2 (14:29→21:48)
[2022-10-20] MEDS: DULoxetine HCL 30 MG CAPSULE.DR PO SCH (14:29)
[2022-10-20] MEDS ORDERED: INSULIN (NOVOLOG) ASPART 100 UNITS/ML 10ML VIAL ONE (18:05)
[2022-10-20] MEDS: LIDOCAINE PATCH REMOVAL MC SCH (21:53)
[2022-10-21] MEDS: hydrALAZINE HCL 50 MG TABLET (FP) PO SCH ×3 (06:24→21:27)
[2022-10-21] MEDS: INSULIN SLIDING SCALE (NOVOLOG) 1 VIAL SQ SCH ×4 (06:24→21:28)
[2022-10-21] MEDS: SEVELAMER CARBONATE 2.4 GM POWDER PACKET PO SCH ×3 (08:47→16:59)
[2022-10-21 08:52] LABS: HEMATOCRIT 28.4 % (32.4-45.2); HEMOGLOBIN 9.4 GM/dL (10.7-15.3); MCH 31.8 pg (25.7-33.7); MEAN CELL VOLUME 96.2 fl (80-96); MEAN PLT VOLUME 9.8 fl (7.5-11.1); PLATELET COUNT 155 10^3/uL (134-434); RBC 2.95 M/mm3 (3.60-5.2); RDW 14.8 % (11.6-15.6); WHITE BLOOD COUNT 4.5 K/mm3 (4.0-10.0)
[2022-10-21 09:15] LABS: POTASSIUM 4.9 mmol/L (3.5-5.1)
[2022-10-21 09:18] LABS: ALBUMIN 3.1 g/dl (3.4-5.0)
[2022-10-21 09:20] LABS: CREATININE 3.7 mg/dL (0.55-1.3)
[2022-10-21 09:22] LABS: BILIRUBIN,TOTAL 0.6 mg/dL (0.2-1)
[2022-10-21] MEDS: LIDOCAINE 5% TOPICAL PATCH TP SCH (12:47)
[2022-10-21] MEDS: busPIRone HCL 10 MG TABLET (FP) PO SCH ×2 (12:48→22:41)
[2022-10-21] MEDS: cloNIDine HCL 0.1 MG TABLET PO SCH ×2 (12:48→21:27)
[2022-10-21] MEDS: PANTOPRAZOLE 40 MG TABLET PO SCH (12:48)
[2022-10-21] MEDS: FUROSEMIDE 40 MG TABLET (FP) PO SCH (12:48)
[2022-10-21] MEDS: DULoxetine HCL 30 MG CAPSULE.DR PO SCH (12:48)
[2022-10-21] MEDS: LABETALOL HCL 200 MG TABLET (FP) PO SCH ×2 (12:49→21:28)
[2022-10-21] MEDS: ISOSORBIDE MONONITRATE 30 MG TAB.SR.24H (FP) PO SCH (12:49)
[2022-10-21] MEDS: POLYETHYLENE GLYCOL (HEALTHYLAX) 3350 17 GM PACKET PO SCH ×2 (12:56→21:27)
[2022-10-21] MEDS: diphenhydrAMINE HCL 25 MG CAPSULE (FP) PO PRN (16:12)
[2022-10-21] MEDS ORDERED: INSULIN (NOVOLOG) ASPART 100 UNITS/ML 10ML VIAL ONE (21:22)
[2022-10-21] MEDS: HEPARIN NA (PORCINE) 5,000 UNITS/ML 1ML VIAL SQ SCH (21:28)
[2022-10-22] MEDS: ACETAMINOPHEN 325 MG TABLET (FP) PO PRN (00:46)
[2022-10-22] MEDS: diphenhydrAMINE HCL 25 MG CAPSULE (FP) PO PRN ×2 (00:47→13:29)
[2022-10-22] MEDS: LIDOCAINE PATCH REMOVAL MC SCH (00:52)
[2022-10-22] MEDS ORDERED: INSULIN (NOVOLOG) ASPART 100 UNITS/ML 10ML VIAL ONE (06:41)
[2022-10-22] MEDS: hydrALAZINE HCL 50 MG TABLET (FP) PO SCH ×3 (06:43→21:39)
[2022-10-22] MEDS: INSULIN SLIDING SCALE (NOVOLOG) 1 VIAL SQ SCH ×4 (06:43→21:59)
[2022-10-22] MEDS: HEPARIN NA (PORCINE) 5,000 UNITS/ML 1ML VIAL SQ SCH ×3 (06:43→21:43)
[2022-10-22] MEDS: SEVELAMER CARBONATE 2.4 GM POWDER PACKET PO SCH ×3 (08:37→19:18)
[2022-10-22 10:05] LABS: HEMATOCRIT 29.7 % (32.4-45.2); HEMOGLOBIN 9.8 GM/dL (10.7-15.3); MCH 31.8 pg (25.7-33.7); MEAN CELL VOLUME 96.3 fl (80-96); MEAN PLT VOLUME 9.4 fl (7.5-11.1); PLATELET COUNT 153 10^3/uL (134-434); RBC 3.08 M/mm3 (3.60-5.2); RDW 14.7 % (11.6-15.6); WHITE BLOOD COUNT 5.1 K/mm3 (4.0-10.0)
[2022-10-22] MEDS: PANTOPRAZOLE 40 MG TABLET PO SCH (10:12)
[2022-10-22] MEDS: cloNIDine HCL 0.1 MG TABLET PO SCH ×2 (10:12→21:43)
[2022-10-22] MEDS: DULoxetine HCL 30 MG CAPSULE.DR PO SCH (10:12)
[2022-10-22] MEDS: LABETALOL HCL 200 MG TABLET (FP) PO SCH ×2 (10:13→21:43)
[2022-10-22] MEDS: FUROSEMIDE 40 MG TABLET (FP) PO SCH (10:13)
[2022-10-22] MEDS: ISOSORBIDE MONONITRATE 30 MG TAB.SR.24H (FP) PO SCH (10:13)
[2022-10-22] MEDS: busPIRone HCL 10 MG TABLET (FP) PO SCH ×2 (10:13→22:40)
[2022-10-22] MEDS: POLYETHYLENE GLYCOL (HEALTHYLAX) 3350 17 GM PACKET PO SCH ×2 (10:14→21:43)
[2022-10-22] MEDS: LIDOCAINE 5% TOPICAL PATCH TP SCH ×2 (10:14→13:20)
[2022-10-22 10:19] LABS: POTASSIUM 4.2 mmol/L (3.5-5.1)
[2022-10-22 10:21] LABS: CALCIUM 9.7 mg/dL (8.5-10.1)
[2022-10-22 10:23] LABS: ALBUMIN 3.3 g/dl (3.4-5.0); BLOOD UREA NITROGEN 41.4 mg/dL (7-18); MAGNESIUM 2.3 mg/dL (1.8-2.4)
[2022-10-22 10:25] LABS: CREATININE 3.9 mg/dL (0.55-1.3)
[2022-10-22 10:26] LABS: BILIRUBIN,TOTAL 0.7 mg/dL (0.2-1); TOT PROT 7.3 g/dl (6.4-8.2)
[2022-10-22] MEDS ORDERED: DOCUSATE SODIUM 100 MG CAPSULE (FP) PO ONE (14:00)
[2022-10-22] MEDS: SENNOSIDES/DOCUSATE COMBO (SENNA PLUS) TABLET (UD) PO SCH (21:44)
[2022-10-23] MEDS: diphenhydrAMINE HCL 25 MG CAPSULE (FP) PO PRN ×4 (00:31→22:06)
[2022-10-23] MEDS: LIDOCAINE PATCH REMOVAL MC SCH (00:31)
[2022-10-23] MEDS: hydrALAZINE HCL 50 MG TABLET (FP) PO SCH ×3 (06:14→21:58)
[2022-10-23] MEDS: HEPARIN NA (PORCINE) 5,000 UNITS/ML 1ML VIAL SQ SCH ×3 (06:16→22:01)
[2022-10-23] MEDS: INSULIN SLIDING SCALE (NOVOLOG) 1 VIAL SQ SCH ×4 (06:21→22:00)
[2022-10-23] MEDS: SEVELAMER CARBONATE 2.4 GM POWDER PACKET PO SCH ×4 (08:33→16:51)
[2022-10-23] MEDS: DULoxetine HCL 30 MG CAPSULE.DR PO SCH (09:44)
[2022-10-23] MEDS: FUROSEMIDE 40 MG TABLET (FP) PO SCH (09:44)
[2022-10-23] MEDS: LABETALOL HCL 200 MG TABLET (FP) PO SCH ×2 (09:44→21:58)
[2022-10-23] MEDS: PANTOPRAZOLE 40 MG TABLET PO SCH (09:44)
[2022-10-23] MEDS: ISOSORBIDE MONONITRATE 30 MG TAB.SR.24H (FP) PO SCH (09:44)
[2022-10-23] MEDS: cloNIDine HCL 0.1 MG TABLET PO SCH ×2 (09:44→22:01)
[2022-10-23] MEDS: LIDOCAINE 5% TOPICAL PATCH TP SCH (09:45)
[2022-10-23] MEDS: busPIRone HCL 10 MG TABLET (FP) PO SCH ×2 (10:14→21:59)
[2022-10-23] MEDS: POLYETHYLENE GLYCOL (HEALTHYLAX) 3350 17 GM PACKET PO SCH ×3 (10:17→22:15)
[2022-10-23] MEDS ORDERED: SODIUM CHLORIDE 250 ML IV PRN (10:48)
[2022-10-23] MEDS ORDERED: BISACODYL 5 MG TABLET.DR (FP) PO ONE ×2 (12:00→15:58)
[2022-10-23] MEDS ORDERED: INSULIN (NOVOLOG) ASPART 100 UNITS/ML 10ML VIAL ONE (18:43)
[2022-10-23] MEDS: SENNOSIDES/DOCUSATE COMBO (SENNA PLUS) TABLET (UD) PO SCH (21:58)
[2022-10-23] MEDS: ACETAMINOPHEN 325 MG TABLET (FP) PO PRN (21:58)
[2022-10-24] MEDS: INSULIN SLIDING SCALE (NOVOLOG) 1 VIAL SQ SCH ×4 (06:00→21:56)
[2022-10-24] MEDS: HEPARIN NA (PORCINE) 5,000 UNITS/ML 1ML VIAL SQ SCH ×3 (06:00→21:26)
[2022-10-24] MEDS: hydrALAZINE HCL 50 MG TABLET (FP) PO SCH ×3 (07:00→21:25)
[2022-10-24] MEDS ORDERED: INSULIN (NOVOLOG) ASPART 100 UNITS/ML 10ML VIAL ONE ×3 (08:01→18:29)
[2022-10-24] MEDS: FUROSEMIDE 40 MG TABLET (FP) PO SCH (10:35)
[2022-10-24] MEDS: DULoxetine HCL 30 MG CAPSULE.DR PO SCH (10:35)
[2022-10-24] MEDS: cloNIDine HCL 0.1 MG TABLET PO SCH ×2 (10:35→21:26)
[2022-10-24] MEDS: ISOSORBIDE MONONITRATE 30 MG TAB.SR.24H (FP) PO SCH (10:35)
[2022-10-24] MEDS: LABETALOL HCL 200 MG TABLET (FP) PO SCH ×2 (10:35→21:26)
[2022-10-24] MEDS: PANTOPRAZOLE 40 MG TABLET PO SCH (10:35)
[2022-10-24] MEDS: LIDOCAINE 5% TOPICAL PATCH TP SCH (10:36)
[2022-10-24] MEDS: busPIRone HCL 10 MG TABLET (FP) PO SCH ×2 (10:37→21:32)
[2022-10-24] MEDS: POLYETHYLENE GLYCOL (HEALTHYLAX) 3350 17 GM PACKET PO SCH ×2 (10:37→21:32)
[2022-10-24] MEDS: SEVELAMER CARBONATE 2.4 GM POWDER PACKET PO SCH ×2 (10:37→12:00)
[2022-10-24] MEDS: diphenhydrAMINE HCL 25 MG CAPSULE (FP) PO PRN ×2 (10:44→18:12)
[2022-10-24] MEDS ORDERED: BISACODYL 5 MG TABLET.DR (FP) PO ONE ×2 (12:00→21:15)
[2022-10-24] MEDS ORDERED: hydrOXYzine HCL 10 MG/5 ML LIQUID BULK BOTTLE PO PRN (13:37)
[2022-10-24 13:57] LABS: BASO % 1.1 % (0-2.0); EOS % 3.6 % (0-4.5); HEMATOCRIT 27.5 % (32.4-45.2); HEMOGLOBIN 9.1 GM/dL (10.7-15.3); LYMPH % 21.3 % (8-40); MCHC 33.1 g/dl (32.0-36.0); MEAN CELL VOLUME 96.8 fl (80-96); MEAN PLT VOLUME 10.6 fl (7.5-11.1); MONO % 10.8 % (3.8-10.2); NEUT % 63.2 % (42.8-82.8); PLATELET COUNT 151 10^3/uL (134-434); RBC 2.84 M/mm3 (3.60-5.2); RDW 13.9 % (11.6-15.6); WHITE BLOOD COUNT 4.7 K/mm3 (4.0-10.0)
[2022-10-24 14:15] LABS: CHLORIDE 97 mmol/L (98-107); SODIUM 135 mmol/L (136-145)
[2022-10-24 14:16] LABS: CO2 25 mmol/L (21-32); GLUCOSE,RANDOM 175 mg/dL (74-106)
[2022-10-24 14:20] LABS: CREATININE 6.8 mg/dL (0.55-1.3)
[2022-10-24 14:39] LABS: ANION GAP 13 MMOL/L (8-16); BLOOD UREA NITROGEN 90.2 mg/dL (7-18); POTASSIUM 6.1 mmol/L (3.5-5.1)
[2022-10-24] MEDS: CALAMINE 8% TOPICAL LOTION 177 ML BOTTLE TP PRN (17:04)
[2022-10-24] MEDS: SENNOSIDES/DOCUSATE COMBO (SENNA PLUS) TABLET (UD) PO SCH (21:26)
[2022-10-25] MEDS: HEPARIN NA (PORCINE) 5,000 UNITS/ML 1ML VIAL SQ SCH ×2 (06:03→14:32)
[2022-10-25] MEDS: hydrALAZINE HCL 50 MG TABLET (FP) PO SCH ×3 (06:03→21:55)
[2022-10-25] MEDS: INSULIN SLIDING SCALE (NOVOLOG) 1 VIAL SQ SCH ×4 (06:08→21:55)
[2022-10-25] MEDS: SEVELAMER CARBONATE 2.4 GM POWDER PACKET PO SCH ×4 (08:04→18:00)
[2022-10-25 09:12] LABS: HEMATOCRIT 25.3 % (32.4-45.2); HEMOGLOBIN 8.3 GM/dL (10.7-15.3); MCHC 32.9 g/dl (32.0-36.0); MEAN CELL VOLUME 97.2 fl (80-96); MEAN PLT VOLUME 10.1 fl (7.5-11.1); PLATELET COUNT 132 10^3/uL (134-434); RDW 14.1 % (11.6-15.6); WHITE BLOOD COUNT 4.5 K/mm3 (4.0-10.0)
[2022-10-25 10:04] LABS: CALCIUM 9.2 mg/dL (8.5-10.1)
[2022-10-25 10:05] LABS: MAGNESIUM 2.3 mg/dL (1.8-2.4)
[2022-10-25 10:06] LABS: CREATININE 4.7 mg/dL (0.55-1.3); TOT PROT 6.8 g/dl (6.4-8.2)
[2022-10-25 10:10] LABS: BLOOD UREA NITROGEN 50.8 mg/dL (7-18)
[2022-10-25] MEDS: PANTOPRAZOLE 40 MG TABLET PO SCH (10:34)
[2022-10-25] MEDS: LABETALOL HCL 200 MG TABLET (FP) PO SCH ×2 (10:34→21:55)
[2022-10-25] MEDS: DULoxetine HCL 30 MG CAPSULE.DR PO SCH (10:34)
[2022-10-25] MEDS: FUROSEMIDE 40 MG TABLET (FP) PO SCH (10:35)
[2022-10-25] MEDS: busPIRone HCL 10 MG TABLET (FP) PO SCH ×2 (10:35→21:55)
[2022-10-25] MEDS: ISOSORBIDE MONONITRATE 30 MG TAB.SR.24H (FP) PO SCH (10:35)
[2022-10-25] MEDS: cloNIDine HCL 0.1 MG TABLET PO SCH ×2 (10:35→21:55)
[2022-10-25] MEDS: POLYETHYLENE GLYCOL (HEALTHYLAX) 3350 17 GM PACKET PO SCH ×2 (10:36→21:55)
[2022-10-25] MEDS: LIDOCAINE 5% TOPICAL PATCH TP SCH (10:40)
[2022-10-25] MEDS: diphenhydrAMINE HCL 25 MG CAPSULE (FP) PO PRN (15:39)
[2022-10-25] MEDS ORDERED: INSULIN (NOVOLOG) ASPART 100 UNITS/ML 10ML VIAL ONE ×2 (17:15→21:26)
[2022-10-25] MEDS: SENNOSIDES/DOCUSATE COMBO (SENNA PLUS) TABLET (UD) PO SCH (21:56)
[2022-10-25] MEDS: LIDOCAINE PATCH REMOVAL MC SCH (22:02)
[2022-10-25] MEDS: ACETAMINOPHEN 325 MG TABLET (FP) PO PRN (23:16)
[2022-10-26] MEDS: INSULIN SLIDING SCALE (NOVOLOG) 1 VIAL SQ SCH ×4 (07:03→22:46)
[2022-10-26] MEDS: hydrALAZINE HCL 50 MG TABLET (FP) PO SCH ×3 (07:16→22:39)
[2022-10-26] MEDS: SEVELAMER CARBONATE 2.4 GM POWDER PACKET PO SCH ×3 (07:39→17:16)
[2022-10-26] MEDS ORDERED: SODIUM CHLORIDE 250 ML IV PRN (08:35)
[2022-10-26] MEDS ORDERED: EPOETIN ALFA-EPBX 10,000 UNIT/ML VIAL IVPUSH ONE (09:00)
[2022-10-26 09:13] LABS: HEMATOCRIT 28.8 % (32.4-45.2); HEMOGLOBIN 9.4 GM/dL (10.7-15.3); MCH 31.9 pg (25.7-33.7); MCHC 32.7 g/dl (32.0-36.0); MEAN CELL VOLUME 97.7 fl (80-96); MEAN PLT VOLUME 10.6 fl (7.5-11.1); PLATELET COUNT 149 10^3/uL (134-434); RBC 2.94 M/mm3 (3.60-5.2); WHITE BLOOD COUNT 4.8 K/mm3 (4.0-10.0)
[2022-10-26 09:46] LABS: POTASSIUM 5.3 mmol/L (3.5-5.1)
[2022-10-26 09:49] LABS: CALCIUM 9.1 mg/dL (8.5-10.1)
[2022-10-26 09:50] LABS: ALBUMIN 3.3 g/dl (3.4-5.0); BLOOD UREA NITROGEN 67.3 mg/dL (7-18)
[2022-10-26 09:53] LABS: CREATININE 5.8 mg/dL (0.55-1.3)
[2022-10-26 09:54] LABS: BILIRUBIN,TOTAL 0.7 mg/dL (0.2-1)
[2022-10-26] MEDS: POLYETHYLENE GLYCOL (HEALTHYLAX) 3350 17 GM PACKET PO SCH ×2 (12:15→22:39)
[2022-10-26] MEDS: ISOSORBIDE MONONITRATE 30 MG TAB.SR.24H (FP) PO SCH (12:15)
[2022-10-26] MEDS: cloNIDine HCL 0.1 MG TABLET PO SCH ×2 (12:15→22:39)
[2022-10-26] MEDS: PANTOPRAZOLE 40 MG TABLET PO SCH (12:16)
[2022-10-26] MEDS: LABETALOL HCL 200 MG TABLET (FP) PO SCH ×2 (12:16→22:39)
[2022-10-26] MEDS: DULoxetine HCL 30 MG CAPSULE.DR PO SCH (12:16)
[2022-10-26] MEDS: busPIRone HCL 10 MG TABLET (FP) PO SCH ×2 (12:16→22:39)
[2022-10-26] MEDS: FUROSEMIDE 40 MG TABLET (FP) PO SCH (12:16)
[2022-10-26] MEDS: LIDOCAINE 5% TOPICAL PATCH TP SCH (12:17)
[2022-10-26] MEDS ORDERED: INSULIN (NOVOLOG) ASPART 100 UNITS/ML 10ML VIAL ONE (12:19)
[2022-10-26] MEDS: CALAMINE 8% TOPICAL LOTION 177 ML BOTTLE TP PRN (22:38)
[2022-10-26] MEDS: SENNOSIDES/DOCUSATE COMBO (SENNA PLUS) TABLET (UD) PO SCH (22:39)
[2022-10-26] MEDS: diphenhydrAMINE HCL 25 MG CAPSULE (FP) PO PRN (22:39)
[2022-10-26] MEDS: LIDOCAINE PATCH REMOVAL MC SCH (22:42)
[2022-10-26] MEDS ORDERED: BISACODYL 5 MG TABLET.DR (FP) PO PRN (23:09)
[2022-10-26 23:19] VITALS: BMI 29.3
[2022-10-27] MEDS: hydrALAZINE HCL 50 MG TABLET (FP) PO SCH (06:00)
[2022-10-27] MEDS: INSULIN SLIDING SCALE (NOVOLOG) 1 VIAL SQ SCH ×2 (06:02→11:32)
[2022-10-27] MEDS: SEVELAMER CARBONATE 2.4 GM POWDER PACKET PO SCH ×2 (08:39→13:27)
[2022-10-27 10:42] VITALS: PULSE 75
[2022-10-27] MEDS ORDERED: INSULIN (NOVOLOG) ASPART 100 UNITS/ML 10ML VIAL ONE (10:56)
[2022-10-27] MEDS: LIDOCAINE 5% TOPICAL PATCH TP SCH (10:58)
[2022-10-27] MEDS: busPIRone HCL 10 MG TABLET (FP) PO SCH (10:58)
[2022-10-27] MEDS: LABETALOL HCL 200 MG TABLET (FP) PO SCH (10:58)
[2022-10-27] MEDS: PANTOPRAZOLE 40 MG TABLET PO SCH (10:58)
[2022-10-27] MEDS: ISOSORBIDE MONONITRATE 30 MG TAB.SR.24H (FP) PO SCH (10:59)
[2022-10-27] MEDS: cloNIDine HCL 0.1 MG TABLET PO SCH (10:59)
[2022-10-27] MEDS: FUROSEMIDE 40 MG TABLET (FP) PO SCH (10:59)
[2022-10-27] MEDS: DULoxetine HCL 30 MG CAPSULE.DR PO SCH (11:00)
[2022-10-27] MEDS: POLYETHYLENE GLYCOL (HEALTHYLAX) 3350 17 GM PACKET PO SCH (11:00)
[2022-10-27 12:17] VITALS: BP 165/74; RESP 19; TEMP 97.9
== END 2022-10-27 16:12 | disposition home or self-care (01) | DRG 291 ==
LOC: JER 10:12 → JERBED 12:27 → J6S 15:29
PROVIDERS: ADMIT Internal Medicine; ATTEND Internal Medicine
PROC: 5A1D70Z Performance of Urinary Filtration, Intermittent, Less than 6 Hours Per Day (ICD-10-PCS; 2022-10-07)
PROC: 0W9G3ZZ Drainage of Peritoneal Cavity, Percutaneous Approach (ICD-10-PCS; 2022-10-13)
PROC: 5A1D70Z Performance of Urinary Filtration, Intermittent, Less than 6 Hours Per Day (ICD-10-PCS; 2022-10-15)
PROC: 5A1D70Z Performance of Urinary Filtration, Intermittent, Less than 6 Hours Per Day (ICD-10-PCS; 2022-10-17)
PROC: 5A1D70Z Performance of Urinary Filtration, Intermittent, Less than 6 Hours Per Day (ICD-10-PCS; 2022-10-19)
PROC: 0W9G3ZZ Drainage of Peritoneal Cavity, Percutaneous Approach (ICD-10-PCS; principal; 2022-10-20)
PROC: 5A1D70Z Performance of Urinary Filtration, Intermittent, Less than 6 Hours Per Day (ICD-10-PCS; 2022-10-20)
PROC: 5A1D70Z Performance of Urinary Filtration, Intermittent, Less than 6 Hours Per Day (ICD-10-PCS; 2022-10-21)
PROC: 5A1D70Z Performance of Urinary Filtration, Intermittent, Less than 6 Hours Per Day (ICD-10-PCS; 2022-10-24)
PROC: 5A1D70Z Performance of Urinary Filtration, Intermittent, Less than 6 Hours Per Day (ICD-10-PCS; 2022-10-26)
DX: I13.2 Hypertensive heart and chronic kidney disease with heart failure and with stage 5 chronic kidney disease, or end stage renal disease (principal); I50.33 Acute on chronic diastolic (congestive) heart failure; J96.01 Acute respiratory failure with hypoxia; N18.6 End stage renal disease; K65.2 Spontaneous bacterial peritonitis; E11.22 Type 2 diabetes mellitus with diabetic chronic kidney disease; E11.51 Type 2 diabetes mellitus with diabetic peripheral angiopathy without gangrene; E11.43 Type 2 diabetes mellitus with diabetic autonomic (poly)neuropathy; K31.84 Gastroparesis; I27.20 Pulmonary hypertension, unspecified; E78.5 Hyperlipidemia, unspecified; I27.81 Cor pulmonale (chronic); E11.42 Type 2 diabetes mellitus with diabetic polyneuropathy; J45.909 Unspecified asthma, uncomplicated; D64.9 Anemia, unspecified; K21.9 Gastro-esophageal reflux disease without esophagitis; K57.90 Diverticulosis of intestine, part unspecified, without perforation or abscess without bleeding; E04.2 Nontoxic multinodular goiter; K59.00 Constipation, unspecified; R59.0 Localized enlarged lymph nodes; J44.9 Chronic obstructive pulmonary disease, unspecified; R16.2 Hepatomegaly with splenomegaly, not elsewhere classified; F32.A Depression, unspecified; R19.09 Other intra-abdominal and pelvic swelling, mass and lump; I16.0 Hypertensive urgency; E11.65 Type 2 diabetes mellitus with hyperglycemia; Z89.422 Acquired absence of other left toe(s); Z99.2 Dependence on renal dialysis; Z87.11 Personal history of peptic ulcer disease
CPT/HCPCS: 36415; 71045-TC-FY; 71250-TC; 74018-TC-FY; 74176-TC; 76700-TC; 76830-TC; 76942-TC; 80048; 80053; 82042; 82105; 82140; 82150; 82378; 82465; 82803; 82945; 82962; 82977; 83615; 83735; 83986; 84100; 84157; 84439; 84443; 84478; 84484; 85025; 85027; 85610; 85730; 86140; 86301; 86304; 86803; 86850; 86900; 86901; 87070; 87075; 87102; 87116; 87205; 87206; 87210; 87340; 88108; 88305-TC; 93005; 93010; 93970-TC; 94640; 94761; 97116-GP; 97162-GP; 99285-25; J1644; P9047; Q5106

== ENCOUNTER 2022-12-28 14:49 | Observation (INO) | payer OTHER ==
[2022-12-28] MEDS ORDERED: BISACODYL 5 MG TABLET.DR (FP) PO ONE (17:42)
[2022-12-28] MEDS ORDERED: LACTULOSE 20 GM/30 ML UDC (FOR ORAL USE ONLY) PO ONE (17:42)
[2022-12-28] MEDS ORDERED: POLYETHYLENE GLYCOL (HEALTHYLAX) 3350 17 GM PACKET PO ONE (17:45)
[2022-12-28] MEDS ORDERED: BISACODYL 10 MG SUPP.RECT PR ONE (17:48)
[2022-12-28] MEDS ORDERED: BISACODYL 10 MG SUPP.RECT ONE (17:49)
[2022-12-28] MEDS ORDERED: POLYETHYLENE GLYCOL (HEALTHYLAX) 3350 17 GM PACKET ONE (17:49)
[2022-12-28] MEDS ORDERED: LACTULOSE 20 GM/30 ML UDC (FOR ORAL USE ONLY) ONE (17:49)
[2022-12-28 18:09] LABS: BASO % 1.4 % (0-2.0); HEMATOCRIT 28.2 % (32.4-45.2); HEMOGLOBIN 9.4 GM/dL (10.7-15.3); LYMPH % 22.1 % (8-40); MCH 30.6 pg (25.7-33.7); MCHC 33.4 g/dl (32.0-36.0); MEAN CELL VOLUME 91.6 fl (80-96); MEAN PLT VOLUME 9.5 fl (7.5-11.1); NEUT % 60.5 % (42.8-82.8); PLATELET COUNT 176 10^3/uL (134-434); RBC 3.08 M/mm3 (3.60-5.2); RDW 14.2 % (11.6-15.6); WHITE BLOOD COUNT 4.4 K/mm3 (4.0-10.0)
[2022-12-28 18:28] LABS: POTASSIUM 4.2 mmol/L (3.5-5.1)
[2022-12-28 18:30] LABS: ALBUMIN 3.8 g/dl (3.4-5.0); CALCIUM 9.2 mg/dL (8.5-10.1)
[2022-12-28 18:31] LABS: BLOOD UREA NITROGEN 24.2 mg/dL (7-18); MAGNESIUM 2.5 mg/dL (1.8-2.4)
[2022-12-28 18:34] LABS: CREATININE 3.2 mg/dL (0.55-1.3); PHOSPHOROUS 3.2 mg/dL (2.5-4.9)
[2022-12-28 18:35] LABS: BILIRUBIN,TOTAL 0.4 mg/dL (0.2-1); TOT PROT 8.5 g/dl (6.4-8.2)
[2022-12-28 18:38] LABS: N-TERMINAL BNP 22995.5 pg/ml (5-125)
[2022-12-28 18:42] LABS: INR 1.06 (0.83-1.09); PROTHROMBIN TIME (PATIENT) 12.3 SEC (9.7-13.0)
[2022-12-28 18:45] LABS: ACTIVATED PTT 33.1 SECONDS (25.2-36.5)
[2022-12-28] MEDS ORDERED: LORazepam 2 MG TABLET PO ONE (19:55)
[2022-12-28] MEDS ORDERED: VANCOMYCIN 1,000 MG in DEXTROSE 5%-WATER - 250 ML IVPB ONE (20:03)
[2022-12-28] MEDS ORDERED: CEFTRIAXONE 1,000 MG in DEXTROSE 5%-WATER - 50 ML IVPB ONE (20:03)
[2022-12-28] MEDS ORDERED: CEFTRIAXONE 1 GM/50 ML BAG ONE (20:33)
[2022-12-28] MEDS ORDERED: ACETAMINOPHEN 1000 MG/100 ML BAG IVPB ONE (21:04)
[2022-12-28] MEDS ORDERED: VANCOMYCIN 1 GRAM (PRE-DOCKED) 1,000 MG/250 ML BAG IVPB ONE (21:23)
[2022-12-28] MEDS ORDERED: ACETAMINOPHEN INJECTION 100 ML IVPB ONE (23:20)
[2022-12-28] MEDS ORDERED: BISACODYL 10 MG SUPP.RECT PR PRN (23:56)
[2022-12-28] MEDS ORDERED: BISACODYL 5 MG TABLET.DR (FP) PO PRN (23:56)
[2022-12-29] MEDS ORDERED: ALBUTEROL SO4 HFA INHALER IH PRN
[2022-12-29] MEDS ORDERED: ONDANSETRON *ODT* 4 MG TABLET SL PRN
[2022-12-29] MEDS ORDERED: ALBUTEROL SO4 2.5/IPRATROPIUM 0.5 INH SOL 3 ML VIAL.NEB. NEB PRN
[2022-12-29] MEDS ORDERED: PIPERACILLIN/TAZOB 2.25 GM 2.25 GM/50 ML BAG IVPB ONE ×3 (02:17→18:32)
[2022-12-29] MEDS: PIPERACILLIN/TAZOB 2.25 GM 2.25 GM in DEXTROSE 5%-WATER - 50 ML IVPB SCH ×3 (02:25→18:31)
[2022-12-29] MEDS ORDERED: LORazepam 1 MG TABLET ONE (03:11)
[2022-12-29] MEDS: LORazepam 0.5 MG TABLET PO ONE ×2 (03:21→04:41)
[2022-12-29] MEDS ORDERED: LORazepam 0.5 MG TABLET ONE (04:39)
[2022-12-29] MEDS ORDERED: LACTULOSE 20 GM/30 ML UDC (FOR ORAL USE ONLY) ONE (06:45)
[2022-12-29] MEDS ORDERED: hydrALAZINE HCL 50 MG TABLET (FP) ONE (06:45)
[2022-12-29] MEDS ORDERED: POLYETHYLENE GLYCOL (HEALTHYLAX) 3350 17 GM PACKET ONE (06:45)
[2022-12-29] MEDS ORDERED: HEPARIN NA (PORCINE) 5,000 UNITS/ML 1ML VIAL ONE (06:46)
[2022-12-29] MEDS: POLYETHYLENE GLYCOL (HEALTHYLAX) 3350 17 GM PACKET PO SCH ×3 (07:00→22:18)
[2022-12-29] MEDS: HEPARIN NA (PORCINE) 5,000 UNITS/ML 1ML VIAL SQ SCH ×3 (07:00→22:17)
[2022-12-29] MEDS: LACTULOSE 20 GM/30 ML UDC (FOR ORAL USE ONLY) PO SCH ×3 (07:00→22:18)
[2022-12-29] MEDS: hydrALAZINE HCL 50 MG TABLET (FP) PO SCH ×3 (07:00→22:17)
[2022-12-29 07:10] LABS: BASO % 1.2 % (0-2.0); EOS % 2.1 % (0-4.5); HEMATOCRIT 28.1 % (32.4-45.2); HEMOGLOBIN 9.5 GM/dL (10.7-15.3); LYMPH % 18.8 % (8-40); MCH 31.5 pg (25.7-33.7); MCHC 33.8 g/dl (32.0-36.0); MONO % 12.4 % (3.8-10.2); NEUT % 65.5 % (42.8-82.8); PLATELET COUNT 181 10^3/uL (134-434); RBC 3.02 M/mm3 (3.60-5.2); RDW 14.4 % (11.6-15.6); WHITE BLOOD COUNT 5.5 K/mm3 (4.0-10.0)
[2022-12-29 07:30] LABS: CALCIUM 9.4 mg/dL (8.5-10.1)
[2022-12-29 07:31] LABS: ALBUMIN 3.6 g/dl (3.4-5.0); BLOOD UREA NITROGEN 35.2 mg/dL (7-18); MAGNESIUM 2.7 mg/dL (1.8-2.4)
[2022-12-29 07:34] LABS: CREATININE 4.3 mg/dL (0.55-1.3); PHOSPHOROUS 4.8 mg/dL (2.5-4.9)
[2022-12-29 07:35] LABS: BILIRUBIN,TOTAL 0.5 mg/dL (0.2-1); TOT PROT 8.5 g/dl (6.4-8.2)
[2022-12-29] MEDS: INSULIN SLIDING SCALE (NOVOLOG) 1 VIAL SQ SCH ×4 (07:53→22:17)
[2022-12-29] MEDS: SEVELAMER CARBONATE 2.4 GM POWDER PACKET PO SCH ×3 (09:29→17:48)
[2022-12-29] MEDS: DULoxetine HCL 30 MG CAPSULE.DR PO SCH (09:49)
[2022-12-29] MEDS: cloNIDine HCL 0.1 MG TABLET PO SCH ×2 (09:49→22:17)
[2022-12-29] MEDS: ISOSORBIDE MONONITRATE 60 MG TAB.SR.24H (FP) PO SCH (09:49)
[2022-12-29] MEDS: busPIRone HCL 10 MG TABLET (FP) PO SCH ×2 (09:49→22:17)
[2022-12-29] MEDS: PANTOPRAZOLE 40 MG TABLET PO SCH (09:49)
[2022-12-29] MEDS: LABETALOL HCL 100 MG TABLET (FP) PO SCH ×2 (09:49→22:17)
[2022-12-29] MEDS ORDERED: PATIENT'S OWN MEDICATION (NON-FORMULARY) (Famotidine [Pepcid] 40 MG Tablet) PO SCH (10:00)
[2022-12-29] MEDS ORDERED: SODIUM CHLORIDE 250 ML IV PRN ×2 (11:16→20:36)
[2022-12-29] MEDS ORDERED: EPOETIN ALFA-EPBX 4,000 UNIT/ML VIAL SQ ONE (20:36)
[2022-12-29] MEDS ORDERED: INSULIN (NOVOLOG) ASPART 100 UNITS/ML 10ML VIAL ONE (22:16)
[2022-12-29] MEDS: BUDESONIDE/FORMETEROL FUMARATE 160/4.5 mcg INHALER IH SCH (22:18)
[2022-12-29 23:11] VITALS: RESP 18
[2022-12-29 23:55] VITALS: BMI 26.6
[2022-12-30] MEDS: PIPERACILLIN/TAZOB 2.25 GM 2.25 GM in DEXTROSE 5%-WATER - 50 ML IVPB SCH ×3 (01:26→18:22)
[2022-12-30] MEDS ORDERED: INSULIN (NOVOLOG) ASPART 100 UNITS/ML 10ML VIAL ONE ×2 (06:12→21:04)
[2022-12-30] MEDS: HEPARIN NA (PORCINE) 5,000 UNITS/ML 1ML VIAL SQ SCH ×3 (06:37→21:16)
[2022-12-30] MEDS: LACTULOSE 20 GM/30 ML UDC (FOR ORAL USE ONLY) PO SCH ×2 (06:37→14:46)
[2022-12-30] MEDS: POLYETHYLENE GLYCOL (HEALTHYLAX) 3350 17 GM PACKET PO SCH ×4 (06:37→21:18)
[2022-12-30] MEDS: hydrALAZINE HCL 50 MG TABLET (FP) PO SCH ×3 (06:37→21:17)
[2022-12-30] MEDS: INSULIN SLIDING SCALE (NOVOLOG) 1 VIAL SQ SCH ×4 (07:17→21:21)
[2022-12-30] MEDS: SEVELAMER CARBONATE 2.4 GM POWDER PACKET PO SCH ×3 (08:30→17:14)
[2022-12-30 10:14] LABS: BASO % 1.2 % (0-2.0); HEMATOCRIT 27.5 % (32.4-45.2); HEMOGLOBIN 9.3 GM/dL (10.7-15.3); LYMPH % 14.2 % (8-40); MCH 30.9 pg (25.7-33.7); MCHC 33.7 g/dl (32.0-36.0); MEAN CELL VOLUME 91.7 fl (80-96); MEAN PLT VOLUME 9.3 fl (7.5-11.1); MONO % 10.3 % (3.8-10.2); NEUT % 72.3 % (42.8-82.8); PLATELET COUNT 162 10^3/uL (134-434); RDW 14.7 % (11.6-15.6)
[2022-12-30 10:43] LABS: POTASSIUM 4.4 mmol/L (3.5-5.1)
[2022-12-30 10:48] LABS: BLOOD UREA NITROGEN 39.1 mg/dL (7-18); CALCIUM 9.3 mg/dL (8.5-10.1)
[2022-12-30 10:49] LABS: ALBUMIN 3.6 g/dl (3.4-5.0)
[2022-12-30 10:50] LABS: CREATININE 4.6 mg/dL (0.55-1.3)
[2022-12-30 10:52] LABS: BILIRUBIN,TOTAL 1.3 mg/dL (0.2-1); TOT PROT 8.1 g/dl (6.4-8.2)
[2022-12-30] MEDS: BUDESONIDE/FORMETEROL FUMARATE 160/4.5 mcg INHALER IH SCH ×2 (10:56→22:35)
[2022-12-30] MEDS: PANTOPRAZOLE 40 MG TABLET PO SCH (10:57)
[2022-12-30] MEDS: ISOSORBIDE MONONITRATE 60 MG TAB.SR.24H (FP) PO SCH (10:57)
[2022-12-30] MEDS: BISACODYL 10 MG SUPP.RECT PR SCH (10:57)
[2022-12-30] MEDS: LABETALOL HCL 100 MG TABLET (FP) PO SCH ×2 (10:57→21:17)
[2022-12-30] MEDS: DULoxetine HCL 30 MG CAPSULE.DR PO SCH (10:57)
[2022-12-30] MEDS: cloNIDine HCL 0.1 MG TABLET PO SCH ×2 (10:57→21:17)
[2022-12-30] MEDS: busPIRone HCL 10 MG TABLET (FP) PO SCH ×2 (10:57→21:17)
[2022-12-30] MEDS ORDERED: INSULIN (LEVEMIR) 100 UNITS/ML UNITS SQ SCH (22:00)
[2022-12-31] MEDS: PIPERACILLIN/TAZOB 2.25 GM 2.25 GM in DEXTROSE 5%-WATER - 50 ML IVPB SCH ×2 (01:27→09:16)
[2022-12-31] MEDS: POLYETHYLENE GLYCOL (HEALTHYLAX) 3350 17 GM PACKET PO SCH (06:32)
[2022-12-31] MEDS: hydrALAZINE HCL 50 MG TABLET (FP) PO SCH ×2 (06:32→14:39)
[2022-12-31] MEDS: HEPARIN NA (PORCINE) 5,000 UNITS/ML 1ML VIAL SQ SCH (06:32)
[2022-12-31] MEDS: INSULIN SLIDING SCALE (NOVOLOG) 1 VIAL SQ SCH ×2 (06:34→11:46)
[2022-12-31] MEDS: SEVELAMER CARBONATE 2.4 GM POWDER PACKET PO SCH ×2 (09:00→12:17)
[2022-12-31] MEDS: cloNIDine HCL 0.1 MG TABLET PO SCH (09:15)
[2022-12-31] MEDS: ISOSORBIDE MONONITRATE 60 MG TAB.SR.24H (FP) PO SCH (09:15)
[2022-12-31] MEDS: DULoxetine HCL 30 MG CAPSULE.DR PO SCH (09:15)
[2022-12-31] MEDS: PANTOPRAZOLE 40 MG TABLET PO SCH (09:16)
[2022-12-31] MEDS: busPIRone HCL 10 MG TABLET (FP) PO SCH (09:16)
[2022-12-31] MEDS: LABETALOL HCL 100 MG TABLET (FP) PO SCH (09:16)
[2022-12-31] MEDS: BISACODYL 10 MG SUPP.RECT PR SCH (09:16)
[2022-12-31 09:59] LABS: BASO % 1.3 % (0-2.0); EOS % 3.3 % (0-4.5); HEMATOCRIT 27.5 % (32.4-45.2); HEMOGLOBIN 9.3 GM/dL (10.7-15.3); LYMPH % 21.6 % (8-40); MCH 31.6 pg (25.7-33.7); MCHC 33.7 g/dl (32.0-36.0); MEAN CELL VOLUME 93.5 fl (80-96); MEAN PLT VOLUME 10.1 fl (7.5-11.1); MONO % 11.7 % (3.8-10.2); NEUT % 62.1 % (42.8-82.8); PLATELET COUNT 173 10^3/uL (134-434); RBC 2.94 M/mm3 (3.60-5.2); RDW 14.4 % (11.6-15.6)
[2022-12-31 10:25] LABS: POTASSIUM 4.3 mmol/L (3.5-5.1)
[2022-12-31 10:31] LABS: CALCIUM 9.8 mg/dL (8.5-10.1)
[2022-12-31 10:32] LABS: ALBUMIN 3.5 g/dl (3.4-5.0)
[2022-12-31 10:34] LABS: CREATININE 3.9 mg/dL (0.55-1.3)
[2022-12-31 10:36] LABS: BILIRUBIN,TOTAL 0.8 mg/dL (0.2-1)
[2022-12-31] MEDS ORDERED: INSULIN (NOVOLOG) ASPART 100 UNITS/ML 10ML VIAL ONE (11:39)
[2022-12-31] MEDS: BUDESONIDE/FORMETEROL FUMARATE 160/4.5 mcg INHALER IH SCH (13:38)
[2022-12-31 14:26] VITALS: BP 164/76; PULSE 62; TEMP 98.2
== END 2022-12-31 14:30 | disposition home or self-care (01) ==
LOC: JER 14:49 → JERBED 20:04 → J6S 12-29 20:34
PROVIDERS: ADMIT Internal Medicine; ATTEND Internal Medicine
PROC: 3E033NZ Introduction of Analgesics, Hypnotics, Sedatives into Peripheral Vein, Percutaneous Approach (ICD-10-PCS; principal; 2022-12-28)
PROC: 3E03329 Introduction of Other Anti-infective into Peripheral Vein, Percutaneous Approach (ICD-10-PCS; 2022-12-28)
PROC: 3E023GC Introduction of Other Therapeutic Substance into Muscle, Percutaneous Approach (ICD-10-PCS; 2022-12-28)
PROC: 3E013VG Introduction of Insulin into Subcutaneous Tissue, Percutaneous Approach (ICD-10-PCS; 2022-12-28)
PROC: 3E03329 Introduction of Other Anti-infective into Peripheral Vein, Percutaneous Approach (ICD-10-PCS; 2022-12-28)
DX: K59.00 Constipation, unspecified (principal); R14.0 Abdominal distension (gaseous); N18.6 End stage renal disease; I13.2 Hypertensive heart and chronic kidney disease with heart failure and with stage 5 chronic kidney disease, or end stage renal disease; Z99.2 Dependence on renal dialysis; I50.30 Unspecified diastolic (congestive) heart failure; E11.65 Type 2 diabetes mellitus with hyperglycemia; K31.84 Gastroparesis; I27.20 Pulmonary hypertension, unspecified; R60.1 Generalized edema; D64.9 Anemia, unspecified; J96.91 Respiratory failure, unspecified with hypoxia; L08.9 Local infection of the skin and subcutaneous tissue, unspecified; J44.9 Chronic obstructive pulmonary disease, unspecified; R10.84 Generalized abdominal pain; R77.8 Other specified abnormalities of plasma proteins; Z88.8 Allergy status to other drugs, medicaments and biological substances; K92.9 Disease of digestive system, unspecified; F17.200 Nicotine dependence, unspecified, uncomplicated
CPT/HCPCS: 36415; 71045-TC-FY; 73630-TC-LT; 74176-TC; 76700-TC; 80053; 82140; 82962; 83036; 83735; 83880; 84100; 84484; 85025; 85610; 85730; 86803; 86850; 86900; 86901; 87070; 87186; 87205; 87340; 93005; 93010; 96365; 96366; 96368; 96372; 96375; 99285-25; G0378; G0480; J1644; Q5106

== ENCOUNTER 2023-03-08 11:13 | Emergency (ER) | payer OTHER ==
[2023-03-08] MEDS ORDERED: MAG HYDROX/AL HYDROX/SIMETH 30 ML UNIT-DOSE CUP PO ONE (11:43)
[2023-03-08] MEDS ORDERED: ONDANSETRON 4 MG/2 ML VIAL IVPB ONE ×2 (11:43→11:48)
[2023-03-08] MEDS ORDERED: TRIMETHOBENZAMIDE HCL 200MG/2ML INJ IM ONE (11:45)
[2023-03-08] MEDS ORDERED: FAMOTIDINE 20 MG/50 ML IVPB 20 MG/50 ML MG IVPB ONE ×2 (11:53→12:02)
[2023-03-08] MEDS ORDERED: ONDANSETRON 4 MG/2 ML VIAL ONE (12:02)
[2023-03-08] MEDS ORDERED: MAG HYDROX/AL HYDROX/SIMETH 30 ML UNIT-DOSE CUP ONE (12:02)
[2023-03-08] MEDS ORDERED: ACETAMINOPHEN 1000 MG/100 ML BAG IVPB ONE (12:24)
[2023-03-08] MEDS ORDERED: ACETAMINOPHEN INJECTION 100 ML IVPB ONE (12:24)
[2023-03-08 12:39] LABS: BASO % 1.5 % (0-2.0); EOS % 1.4 % (0-4.5); HEMOGLOBIN 9.7 GM/dL (10.7-15.3); LYMPH % 13.9 % (8-40); MCH 30.8 pg (25.7-33.7); MCHC 31.4 g/dl (32.0-36.0); MEAN CELL VOLUME 98.1 fl (80-96); MEAN PLT VOLUME 9.7 fl (7.5-11.1); MONO % 8.9 % (3.8-10.2); NEUT % 74.3 % (42.8-82.8); PLATELET COUNT 183 10^3/uL (134-434); RBC 3.16 M/mm3 (3.60-5.2); RDW 16.5 % (11.6-15.6); WHITE BLOOD COUNT 6.6 K/mm3 (4.0-10.0)
[2023-03-08 12:52] LABS: CHLORIDE 98 mmol/L (98-107); SODIUM 131 mmol/L (136-145)
[2023-03-08 12:54] LABS: CALCIUM 9.7 mg/dL (8.5-10.1)
[2023-03-08 12:55] LABS: ALBUMIN 3.8 g/dl (3.4-5.0); BLOOD UREA NITROGEN 56.5 mg/dL (7-18); CO2 28 mmol/L (21-32); GLUCOSE,RANDOM 182 mg/dL (74-106); MAGNESIUM 3.1 mg/dL (1.8-2.4)
[2023-03-08 12:58] LABS: CREATININE 6.6 mg/dL (0.55-1.3); PHOSPHOROUS 3.9 mg/dL (2.5-4.9); SGOT/AST 56 U/L (15-37); SGPT/ALT 34 U/L (13-61)
[2023-03-08 13:00] LABS: BILIRUBIN,TOTAL 0.6 mg/dL (0.2-1); TOT PROT 8.7 g/dl (6.4-8.2)
[2023-03-08 13:01] LABS: ALK PHOS 319 U/L (45-117)
[2023-03-08 13:05] LABS: ANION GAP 5 mmol/L (4-13); POTASSIUM 9.1 mmol/L (3.5-5.1)
[2023-03-08] MEDS ORDERED: morphine CARPU-JECT 2 MG/1 ML DISP.SYRIN IVPUSH ONE (13:13)
[2023-03-08] MEDS ORDERED: ASPIRIN 81 MG CHEWABLE TABLETS PO ONE (13:18)
[2023-03-08 13:19] VITALS: BMI 25.8
[2023-03-08] MEDS ORDERED: ATORVASTATIN CA 80 MG TABLET (FP) PO ONE (13:21)
[2023-03-08] MEDS ORDERED: NITROGLYCERIN SUBLINGUAL 1/150 0.4 MG TAB SL ONE (13:21)
[2023-03-08] MEDS ORDERED: METOCLOPRAMIDE HCL INJECTION 10 MG/2 ML VIAL IVPB ONE (13:25)
[2023-03-08] MEDS ORDERED: ATORVASTATIN CA 80 MG TABLET (FP) ONE ×2 (13:35→13:36)
[2023-03-08] MEDS ORDERED: METOCLOPRAMIDE HCL INJECTION 10 MG/2 ML VIAL ONE (13:35)
[2023-03-08] MEDS ORDERED: ASPIRIN 325 MG TABLET ONE (13:35)
[2023-03-08] MEDS ORDERED: NITROGLYCERIN SUBLINGUAL 1/150 0.4 MG TAB ONE (13:35)
[2023-03-08] MEDS ORDERED: HEPARIN NA (PORCINE) 5,000 UNITS/ML 1ML VIAL IVPUSH ONE (13:41)
[2023-03-08] MEDS ORDERED: HEPARIN NA (PORCINE) 5,000 UNITS/ML 1ML VIAL IVPUSH PRN ×2 (13:41)
[2023-03-08] MEDS ORDERED: HEPARIN - 25,000 UNIT in SODIUM CHLORIDE 495 ML IV SCH (13:45)
[2023-03-08] MEDS ORDERED: HEPARIN NA (PORCINE) 5,000 UNITS/ML 1ML VIAL ONE (13:55)
[2023-03-08] MEDS ORDERED: NITROGLYCERIN 25MG/D5W 250ML 25 MG/250 ML ML IVPB SCH (14:00)
[2023-03-08 14:10] VITALS: TEMP 98.3
[2023-03-08 14:25] LABS: POTASSIUM 4.6 mmol/L (3.5-5.1)
[2023-03-08 14:27] LABS: ALBUMIN 3.8 g/dl (3.4-5.0); BLOOD UREA NITROGEN 57.5 mg/dL (7-18); CALCIUM 9.9 mg/dL (8.5-10.1)
[2023-03-08 14:30] LABS: CREATININE 6.6 mg/dL (0.55-1.3)
[2023-03-08 14:32] LABS: BILIRUBIN,TOTAL 0.6 mg/dL (0.2-1)
[2023-03-08] MEDS ORDERED: NITROGLYCERIN 25MG/D5W 250ML 25 MG/250 ML ML IVPB ONE (15:20)
[2023-03-08 15:57] VITALS: BP 151/89; PULSE 79; RESP 18
== END 2023-03-08 16:25 | disposition short-term general hospital (02) ==
LOC: JER 11:13
PROC: 3E033GC Introduction of Other Therapeutic Substance into Peripheral Vein, Percutaneous Approach (ICD-10-PCS; principal; 2023-03-08)
PROC: 3E033NZ Introduction of Analgesics, Hypnotics, Sedatives into Peripheral Vein, Percutaneous Approach (ICD-10-PCS; 2023-03-08)
PROC: 3E033GC Introduction of Other Therapeutic Substance into Peripheral Vein, Percutaneous Approach (ICD-10-PCS; 2023-03-08)
PROC: 3E033GC Introduction of Other Therapeutic Substance into Peripheral Vein, Percutaneous Approach (ICD-10-PCS; 2023-03-08)
PROC: 3E033GC Introduction of Other Therapeutic Substance into Peripheral Vein, Percutaneous Approach (ICD-10-PCS; 2023-03-08)
PROC: 3E033GC Introduction of Other Therapeutic Substance into Peripheral Vein, Percutaneous Approach (ICD-10-PCS; 2023-03-08)
DX: R10.13 Epigastric pain (principal); R11.2 Nausea with vomiting, unspecified; I21.4 Non-ST elevation (NSTEMI) myocardial infarction; R00.0 Tachycardia, unspecified; Z20.822 Contact with and (suspected) exposure to COVID-19
CPT/HCPCS: 0241U-QW; 36415; 71045-TC-FY; 80053; 83735; 84100; 84484; 85025; 93005; 93010; 99285-25; J1644

== ENCOUNTER 2023-03-20 18:06 | Inpatient (IN) | payer OTHER ==
[2023-03-20] MEDS ORDERED: ONDANSETRON 4 MG/2 ML VIAL IVPUSH ONE (18:58)
[2023-03-20] MEDS ORDERED: ACETAMINOPHEN 1000 MG/100 ML BAG IVPB ONE (18:58)
[2023-03-20] MEDS ORDERED: FAMOTIDINE 20 MG/50 ML IVPB 20 MG/50 ML MG IVPB ONE (18:58)
[2023-03-20] MEDS ORDERED: MAG HYDROX/AL HYDROX/SIMETH 30 ML UNIT-DOSE CUP PO ONE (19:16)
[2023-03-20] MEDS ORDERED: ONDANSETRON 4 MG/2 ML VIAL ONE (19:37)
[2023-03-20] MEDS ORDERED: ACETAMINOPHEN INJECTION 100 ML IVPB ONE (19:37)
[2023-03-20] MEDS ORDERED: MAG HYDROX/AL HYDROX/SIMETH 30 ML UNIT-DOSE CUP ONE (19:37)
[2023-03-20] MEDS ORDERED: FAMOTIDINE 10 MG/ML VIAL IVPB ONE (19:38)
[2023-03-20 19:39] LABS: BASO % 1.3 % (0-2.0); EOS % 0.6 % (0-4.5); HEMATOCRIT 26.9 % (32.4-45.2); HEMOGLOBIN 9.2 GM/dL (10.7-15.3); LYMPH % 9.6 % (8-40); MCH 31.4 pg (25.7-33.7); MCHC 34.2 g/dl (32.0-36.0); MEAN PLT VOLUME 8.3 fl (7.5-11.1); MONO % 9.2 % (3.8-10.2); NEUT % 79.3 % (42.8-82.8); PLATELET COUNT 264 10^3/uL (134-434); RBC 2.92 M/mm3 (3.60-5.2); RDW 14.7 % (11.6-15.6); WHITE BLOOD COUNT 8.9 K/mm3 (4.0-10.0)
[2023-03-20 20:13] LABS: POTASSIUM 3.7 mmol/L (3.5-5.1)
[2023-03-20 20:17] LABS: ALBUMIN 3.7 g/dl (3.4-5.0); CALCIUM 10.2 mg/dL (8.5-10.1); MAGNESIUM 2.7 mg/dL (1.8-2.4)
[2023-03-20 20:20] LABS: PHOSPHOROUS 3.1 mg/dL (2.5-4.9)
[2023-03-20 20:21] LABS: BILIRUBIN,TOTAL 0.8 mg/dL (0.2-1); TOT PROT 8.7 g/dl (6.4-8.2)
[2023-03-20] MEDS ORDERED: VANCOMYCIN 1,000 MG in DEXTROSE 5%-WATER - 250 ML IVPB ONE (20:41)
[2023-03-20] MEDS ORDERED: CEFEPIME HCL 1 GM VIAL (RESTRICTED TO ID) IVPB ONE (20:42)
[2023-03-20 20:47] LABS: BLOOD UREA NITROGEN 17.4 mg/dL (7-18)
[2023-03-20] MEDS ORDERED: VANCOMYCIN 1 GRAM (PRE-DOCKED) 1,000 MG/250 ML BAG IVPB ONE (20:47)
[2023-03-20] MEDS ORDERED: CEFEPIME 1 GM/100 ML BAG IVPB ONE (20:48)
[2023-03-20] MEDS ORDERED: morphine CARPU-JECT 4 MG/1 ML DISP.SYRIN IVPUSH ONE (21:34)
[2023-03-20] MEDS ORDERED: morphine SULFATE 4 MG/ML VIAL ONE (21:44)
[2023-03-20] MEDS ORDERED: LABETALOL HCL 100 MG TABLET (FP) PO ONE (22:46)
[2023-03-20] MEDS ORDERED: LABETALOL HCL 100 MG TABLET (FP) ONE (22:52)
[2023-03-21] MEDS: HEPARIN NA (PORCINE) 5,000 UNITS/ML 1ML VIAL SQ SCH ×3 (05:07→21:54)
[2023-03-21] MEDS ORDERED: ALBUTEROL SO4 HFA INHALER IH PRN (06:00)
[2023-03-21] MEDS ORDERED: METOCLOPRAMIDE HCL INJECTION 10 MG/2 ML VIAL IVPUSH PRN (06:04)
[2023-03-21] MEDS ORDERED: LACTULOSE 20 GM/30 ML UDC (FOR ORAL USE ONLY) ONE (06:17)
[2023-03-21] MEDS: LACTULOSE 20 GM/30 ML UDC (FOR ORAL USE ONLY) PO SCH ×3 (06:20→21:52)
[2023-03-21 07:44] LABS: HEMATOCRIT 27.1 % (32.4-45.2); MCH 31.4 pg (25.7-33.7); MCHC 33.2 g/dl (32.0-36.0); MEAN CELL VOLUME 94.7 fl (80-96); MEAN PLT VOLUME 8.5 fl (7.5-11.1); PLATELET COUNT 240 10^3/uL (134-434); RBC 2.86 M/mm3 (3.60-5.2); RDW 15.1 % (11.6-15.6); WHITE BLOOD COUNT 8.3 K/mm3 (4.0-10.0)
[2023-03-21 08:02] LABS: POTASSIUM 4.2 mmol/L (3.5-5.1)
[2023-03-21 08:08] LABS: CALCIUM 9.4 mg/dL (8.5-10.1)
[2023-03-21 08:09] LABS: BLOOD UREA NITROGEN 22.2 mg/dL (7-18)
[2023-03-21 08:10] LABS: ALBUMIN 3.4 g/dl (3.4-5.0)
[2023-03-21 08:11] LABS: CREATININE 4.8 mg/dL (0.55-1.3)
[2023-03-21 08:12] LABS: BILIRUBIN,DIRECT 0.2 mg/dL (0.0-0.2); PHOSPHOROUS 5.1 mg/dL (2.5-4.9)
[2023-03-21 08:14] LABS: BILIRUBIN,TOTAL 0.6 mg/dL (0.2-1)
[2023-03-21 08:15] LABS: TOT PROT 7.8 g/dl (6.4-8.2)
[2023-03-21] MEDS: ACETAMINOPHEN 1000 MG/100 ML BAG IVPB ONE ×2 (08:47→11:18)
[2023-03-21] MEDS ORDERED: ACETAMINOPHEN INJECTION 100 ML IVPB ONE (08:48)
[2023-03-21] MEDS ORDERED: PIPERACILLIN/TAZOB 2.25 GM 2.25 GM in DEXTROSE 5%-WATER - 50 ML IVPB SCH (09:00)
[2023-03-21] MEDS ORDERED: NIFEdipine E.R 60 MG TABLET PO SCH (10:00)
[2023-03-21] MEDS ORDERED: POLYETHYLENE GLYCOL (HEALTHYLAX) 3350 17 GM PACKET PO SCH (10:00)
[2023-03-21] MEDS ORDERED: PANTOPRAZOLE SODIUM 40 MG VIAL IVPUSH SCH (10:00)
[2023-03-21] MEDS: ISOSORBIDE MONONITRATE 60 MG TAB.SR.24H (FP) PO SCH (11:53)
[2023-03-21] MEDS: CLOPIDOGREL BISULFATE 75 MG TABLET (FP) PO SCH (11:53)
[2023-03-21] MEDS: cloNIDine HCL 0.1 MG TABLET PO SCH ×2 (11:53→21:52)
[2023-03-21] MEDS: ASPIRIN COATED 81 MG TABLET.EC PO SCH (11:53)
[2023-03-21] MEDS: DULoxetine HCL 30 MG CAPSULE.DR PO SCH (11:54)
[2023-03-21] MEDS: LABETALOL HCL 100 MG TABLET (FP) PO SCH ×2 (11:54→21:52)
[2023-03-21] MEDS: BISACODYL 5 MG TABLET.DR (FP) PO SCH (11:54)
[2023-03-21] MEDS: busPIRone HCL 10 MG TABLET (FP) PO SCH ×2 (11:54→21:52)
[2023-03-21] MEDS: NIFEdipine E.R 60 MG TABLET PO SCH ×2 (11:54→21:52)
[2023-03-21] MEDS ORDERED: MAG HYDROX/AL HYDROX/SIMETH 30 ML UNIT-DOSE CUP PO SCH (14:00)
[2023-03-21] MEDS: BUDESONIDE/FORMETEROL FUMARATE 160/4.5 mcg INHALER IH SCH ×2 (14:29→22:03)
[2023-03-21] MEDS ORDERED: VANCOMYCIN/WATER FOR INJ (PEG) 1,000 MG/200 ML BAG IVPB ONE (14:30)
[2023-03-21] MEDS: PIPERACILLIN/TAZOB 2.25 GM 2.25 GM in DEXTROSE 5%-WATER - 50 ML IVPB SCH (18:29)
[2023-03-21] MEDS: SENNOSIDES 8.6MG TABLET (FP) PO SCH (21:52)
[2023-03-21] MEDS: ATORVASTATIN CA 40 MG TABLET (FP) PO SCH (21:54)
[2023-03-21] MEDS: POLYETHYLENE GLYCOL (HEALTHYLAX) 3350 17 GM PACKET PO SCH (21:54)
[2023-03-22] MEDS: PIPERACILLIN/TAZOB 2.25 GM 2.25 GM in DEXTROSE 5%-WATER - 50 ML IVPB SCH ×3 (02:28→18:37)
[2023-03-22] MEDS: LACTULOSE 20 GM/30 ML UDC (FOR ORAL USE ONLY) PO SCH ×3 (06:41→21:05)
[2023-03-22] MEDS: INSULIN SLIDING SCALE (NOVOLOG) 1 VIAL SQ SCH ×4 (06:42→21:02)
[2023-03-22] MEDS: HEPARIN NA (PORCINE) 5,000 UNITS/ML 1ML VIAL SQ SCH ×3 (06:42→21:03)
[2023-03-22 09:42] LABS: HEMATOCRIT 24.3 % (32.4-45.2); HEMOGLOBIN 7.9 GM/dL (10.7-15.3); MCH 31.3 pg (25.7-33.7); MCHC 32.7 g/dl (32.0-36.0); MEAN CELL VOLUME 95.7 fl (80-96); MEAN PLT VOLUME 9.1 fl (7.5-11.1); PLATELET COUNT 240 10^3/uL (134-434); RBC 2.54 M/mm3 (3.60-5.2); WHITE BLOOD COUNT 9.7 K/mm3 (4.0-10.0)
[2023-03-22] MEDS ORDERED: EPOETIN ALFA-EPBX 10,000 UNIT/ML VIAL IVPUSH ONE (10:00)
[2023-03-22] MEDS ORDERED: SODIUM CHLORIDE 250 ML IV PRN (10:00)
[2023-03-22 12:16] LABS: ANISOCYTOSIS 2+; MACROCYTOSIS 0
[2023-03-22 12:36] LABS: POTASSIUM 4.5 mmol/L (3.5-5.1)
[2023-03-22 12:38] LABS: CALCIUM 8.9 mg/dL (8.5-10.1)
[2023-03-22 12:39] LABS: ALBUMIN 3.3 g/dl (3.4-5.0); BLOOD UREA NITROGEN 37.2 mg/dL (7-18)
[2023-03-22 12:41] LABS: CREATININE 6.8 mg/dL (0.55-1.3)
[2023-03-22 12:43] LABS: BILIRUBIN,TOTAL 0.5 mg/dL (0.2-1); TOT PROT 7.5 g/dl (6.4-8.2)
[2023-03-22] MEDS: NIFEdipine E.R 60 MG TABLET PO SCH ×2 (13:22→21:01)
[2023-03-22] MEDS: BISACODYL 5 MG TABLET.DR (FP) PO SCH (13:22)
[2023-03-22] MEDS: POLYETHYLENE GLYCOL (HEALTHYLAX) 3350 17 GM PACKET PO SCH ×2 (13:22→21:00)
[2023-03-22] MEDS: PANTOPRAZOLE 40 MG TABLET PO SCH (13:22)
[2023-03-22] MEDS: busPIRone HCL 10 MG TABLET (FP) PO SCH ×2 (13:22→21:01)
[2023-03-22] MEDS: DULoxetine HCL 30 MG CAPSULE.DR PO SCH (13:22)
[2023-03-22] MEDS: CLOPIDOGREL BISULFATE 75 MG TABLET (FP) PO SCH (13:23)
[2023-03-22] MEDS: cloNIDine HCL 0.1 MG TABLET PO SCH ×2 (13:23→21:00)
[2023-03-22] MEDS: BUDESONIDE/FORMETEROL FUMARATE 160/4.5 mcg INHALER IH SCH ×2 (13:23→21:02)
[2023-03-22] MEDS: ISOSORBIDE MONONITRATE 60 MG TAB.SR.24H (FP) PO SCH (13:23)
[2023-03-22] MEDS: LABETALOL HCL 100 MG TABLET (FP) PO SCH ×2 (13:23→21:02)
[2023-03-22] MEDS: ASPIRIN COATED 81 MG TABLET.EC PO SCH (13:23)
[2023-03-22] MEDS ORDERED: TRIMETHOBENZAMIDE HCL 200MG/2ML INJ IM PRN (19:11)
[2023-03-22 19:52] LABS: INR 1.28 (0.83-1.09); PROTHROMBIN TIME (PATIENT) 14.8 SEC (9.7-13.0)
[2023-03-22] MEDS: SENNOSIDES 8.6MG TABLET (FP) PO SCH (21:01)
[2023-03-22] MEDS: ATORVASTATIN CA 40 MG TABLET (FP) PO SCH (21:01)
[2023-03-23] MEDS: PIPERACILLIN/TAZOB 2.25 GM 2.25 GM in DEXTROSE 5%-WATER - 50 ML IVPB SCH ×3 (01:08→18:37)
[2023-03-23] MEDS: HEPARIN NA (PORCINE) 5,000 UNITS/ML 1ML VIAL SQ SCH ×3 (05:54→21:41)
[2023-03-23] MEDS: LACTULOSE 20 GM/30 ML UDC (FOR ORAL USE ONLY) PO SCH ×3 (05:54→21:42)
[2023-03-23] MEDS: INSULIN SLIDING SCALE (NOVOLOG) 1 VIAL SQ SCH ×4 (06:13→21:39)
[2023-03-23 09:22] LABS: BASO % 1.2 % (0-2.0); EOS % 2.5 % (0-4.5); HEMATOCRIT 24.8 % (32.4-45.2); HEMOGLOBIN 8.4 GM/dL (10.7-15.3); LYMPH % 22.5 % (8-40); MCH 31.7 pg (25.7-33.7); MEAN CELL VOLUME 93.3 fl (80-96); MEAN PLT VOLUME 8.8 fl (7.5-11.1); MONO % 14.9 % (3.8-10.2); NEUT % 58.9 % (42.8-82.8); PLATELET COUNT 226 10^3/uL (134-434); RBC 2.65 M/mm3 (3.60-5.2); WHITE BLOOD COUNT 6.4 K/mm3 (4.0-10.0)
[2023-03-23 09:49] LABS: POTASSIUM 3.9 mmol/L (3.5-5.1)
[2023-03-23] MEDS: cloNIDine HCL 0.1 MG TABLET PO SCH ×2 (09:58→21:39)
[2023-03-23] MEDS: ISOSORBIDE MONONITRATE 60 MG TAB.SR.24H (FP) PO SCH (09:58)
[2023-03-23] MEDS: POLYETHYLENE GLYCOL (HEALTHYLAX) 3350 17 GM PACKET PO SCH ×2 (09:58→21:41)
[2023-03-23] MEDS: NIFEdipine E.R 60 MG TABLET PO SCH ×2 (09:59→21:38)
[2023-03-23] MEDS: PANTOPRAZOLE 40 MG TABLET PO SCH (09:59)
[2023-03-23] MEDS: busPIRone HCL 10 MG TABLET (FP) PO SCH ×2 (09:59→21:38)
[2023-03-23] MEDS: CLOPIDOGREL BISULFATE 75 MG TABLET (FP) PO SCH (09:59)
[2023-03-23] MEDS: BUDESONIDE/FORMETEROL FUMARATE 160/4.5 mcg INHALER IH SCH ×2 (09:59→21:40)
[2023-03-23] MEDS: BISACODYL 5 MG TABLET.DR (FP) PO SCH (09:59)
[2023-03-23] MEDS: ASPIRIN COATED 81 MG TABLET.EC PO SCH (09:59)
[2023-03-23] MEDS: LABETALOL HCL 100 MG TABLET (FP) PO SCH ×2 (09:59→21:38)
[2023-03-23] MEDS: DULoxetine HCL 30 MG CAPSULE.DR PO SCH (09:59)
[2023-03-23 10:08] LABS: CALCIUM 9.6 mg/dL (8.5-10.1)
[2023-03-23 10:09] LABS: ALBUMIN 3.2 g/dl (3.4-5.0); BLOOD UREA NITROGEN 27.5 mg/dL (7-18)
[2023-03-23 10:11] LABS: CREATININE 4.4 mg/dL (0.55-1.3)
[2023-03-23 10:12] LABS: PHOSPHOROUS 3.1 mg/dL (2.5-4.9)
[2023-03-23 10:13] LABS: BILIRUBIN,TOTAL 0.5 mg/dL (0.2-1); TOT PROT 7.8 g/dl (6.4-8.2)
[2023-03-23] MEDS ORDERED: ALBUTEROL SO4 2.5/IPRATROPIUM 0.5 INH SOL 3 ML VIAL.NEB. NEB PRN (12:51)
[2023-03-23 13:35] VITALS: BMI 25.2
[2023-03-23] MEDS ORDERED: ACETAMINOPHEN 325 MG TABLET (FP) PO ONE (18:57)
[2023-03-23] MEDS: SENNOSIDES 8.6MG TABLET (FP) PO SCH (21:38)
[2023-03-23] MEDS: ATORVASTATIN CA 40 MG TABLET (FP) PO SCH (21:39)
[2023-03-24] MEDS: PIPERACILLIN/TAZOB 2.25 GM 2.25 GM in DEXTROSE 5%-WATER - 50 ML IVPB SCH ×2 (01:12→13:10)
[2023-03-24] MEDS: LACTULOSE 20 GM/30 ML UDC (FOR ORAL USE ONLY) PO SCH ×2 (05:51→14:15)
[2023-03-24] MEDS: HEPARIN NA (PORCINE) 5,000 UNITS/ML 1ML VIAL SQ SCH ×2 (05:51→14:16)
[2023-03-24] MEDS: INSULIN SLIDING SCALE (NOVOLOG) 1 VIAL SQ SCH ×3 (06:11→17:50)
[2023-03-24] MEDS ORDERED: SODIUM CHLORIDE 250 ML IV PRN (07:53)
[2023-03-24] MEDS ORDERED: EPOETIN ALFA-EPBX 10,000 UNIT/ML VIAL SQ ONE (08:30)
[2023-03-24 09:16] VITALS: RESP 18
[2023-03-24] MEDS ORDERED: VITAMIN B COMP W-C 1 EA TABLET (NEPHRO-VITE) PO SCH (10:00)
[2023-03-24 10:17] LABS: BASO % 1.8 % (0-2.0); EOS % 3.2 % (0-4.5); HEMATOCRIT 24.2 % (32.4-45.2); HEMOGLOBIN 8.1 GM/dL (10.7-15.3); LYMPH % 21.9 % (8-40); MCH 31.7 pg (25.7-33.7); MCHC 33.4 g/dl (32.0-36.0); MEAN PLT VOLUME 9.1 fl (7.5-11.1); NEUT % 59.1 % (42.8-82.8); PLATELET COUNT 225 10^3/uL (134-434); RBC 2.54 M/mm3 (3.60-5.2); RDW 14.5 % (11.6-15.6); WHITE BLOOD COUNT 6.4 K/mm3 (4.0-10.0)
[2023-03-24 10:22] LABS: POTASSIUM 4.1 mmol/L (3.5-5.1)
[2023-03-24 10:24] LABS: CALCIUM 9.2 mg/dL (8.5-10.1)
[2023-03-24 10:25] LABS: ALBUMIN 2.9 g/dl (3.4-5.0); BLOOD UREA NITROGEN 43.3 mg/dL (7-18)
[2023-03-24 10:28] LABS: CREATININE 6.2 mg/dL (0.55-1.3)
[2023-03-24 10:29] LABS: BILIRUBIN,TOTAL 0.7 mg/dL (0.2-1); TOT PROT 7.5 g/dl (6.4-8.2)
[2023-03-24] MEDS: cloNIDine HCL 0.1 MG TABLET PO SCH (13:05)
[2023-03-24] MEDS: POLYETHYLENE GLYCOL (HEALTHYLAX) 3350 17 GM PACKET PO SCH (13:05)
[2023-03-24] MEDS: LABETALOL HCL 100 MG TABLET (FP) PO SCH (13:06)
[2023-03-24] MEDS: NIFEdipine E.R 60 MG TABLET PO SCH (13:06)
[2023-03-24] MEDS: BISACODYL 5 MG TABLET.DR (FP) PO SCH (13:06)
[2023-03-24] MEDS: ASPIRIN COATED 81 MG TABLET.EC PO SCH (13:06)
[2023-03-24] MEDS: busPIRone HCL 10 MG TABLET (FP) PO SCH (13:07)
[2023-03-24] MEDS: CLOPIDOGREL BISULFATE 75 MG TABLET (FP) PO SCH (13:07)
[2023-03-24] MEDS: PANTOPRAZOLE 40 MG TABLET PO SCH (13:07)
[2023-03-24] MEDS: ISOSORBIDE MONONITRATE 60 MG TAB.SR.24H (FP) PO SCH (13:07)
[2023-03-24] MEDS: DULoxetine HCL 30 MG CAPSULE.DR PO SCH (13:07)
[2023-03-24] MEDS: BUDESONIDE/FORMETEROL FUMARATE 160/4.5 mcg INHALER IH SCH (13:08)
[2023-03-24] MEDS ORDERED: ACETAMINOPHEN 1000 MG/100 ML BAG IVPB PRN (13:36)
[2023-03-24] MEDS ORDERED: LIDOCAINE 4% PATCH TP SCH (13:45)
[2023-03-24] MEDS ORDERED: ACETAMINOPHEN 325 MG TABLET (FP) PO ONE (15:32)
[2023-03-24 18:12] VITALS: BP 137/65; PULSE 74; TEMP 98.6
[2023-03-24] MEDS ORDERED: LIDOCAINE PATCH REMOVAL MC SCH (22:00)
[2023-03-25] MEDS ORDERED: AMOX TR/POT CLAV 500MG/125MG TABLETS (FP) PO SCH (08:00)
== END 2023-03-24 18:31 | disposition home or self-care (01) | DRG 193 ==
LOC: JER 18:06 → JERBED 03-21 00:47 → J5S 03-21 10:26
PROVIDERS: ADMIT Internal Medicine; ATTEND Internal Medicine
PROC: 5A1D70Z Performance of Urinary Filtration, Intermittent, Less than 6 Hours Per Day (ICD-10-PCS; principal; 2023-03-21)
DX: J18.9 Pneumonia, unspecified organism (principal); N18.6 End stage renal disease; I13.2 Hypertensive heart and chronic kidney disease with heart failure and with stage 5 chronic kidney disease, or end stage renal disease; I50.32 Chronic diastolic (congestive) heart failure; Y95 Nosocomial condition; E11.22 Type 2 diabetes mellitus with diabetic chronic kidney disease; Z99.2 Dependence on renal dialysis; J44.9 Chronic obstructive pulmonary disease, unspecified; Z99.81 Dependence on supplemental oxygen; E11.43 Type 2 diabetes mellitus with diabetic autonomic (poly)neuropathy; K31.84 Gastroparesis; K59.09 Other constipation; I16.0 Hypertensive urgency; I25.10 Atherosclerotic heart disease of native coronary artery without angina pectoris; I27.20 Pulmonary hypertension, unspecified; K83.8 Other specified diseases of biliary tract; I25.2 Old myocardial infarction; D63.8 Anemia in other chronic diseases classified elsewhere; N83.201 Unspecified ovarian cyst, right side; R94.31 Abnormal electrocardiogram [ECG] [EKG]
CPT/HCPCS: 36415; 71045-TC-FY; 71250-TC; 74176-TC; 76700-TC; 76830-TC; 80048; 80053; 80076; 82728; 82962; 83540; 83550; 83605; 83690; 83735; 84100; 84439; 84443; 84484; 85025; 85027; 85610; 86304; 86705; 86803; 87040; 87070; 87077; 87205; 87340; 87517; 93005; 93010; 94640; 99285-25; G0480; J1644; Q5106

== ENCOUNTER 2023-03-27 12:07 | Observation (INO) | payer OTHER ==
[2023-03-27] MEDS ORDERED: ONDANSETRON 4 MG/2 ML VIAL IVPUSH ONE (13:07)
[2023-03-27] MEDS ORDERED: MAG HYDROX/AL HYDROX/SIMETH 30 ML UNIT-DOSE CUP PO ONE (13:07)
[2023-03-27] MEDS ORDERED: FAMOTIDINE 20 MG/50 ML IVPB 20 MG/50 ML MG IVPB ONE ×2 (13:07→15:26)
[2023-03-27 15:22] LABS: BASO % 1.4 % (0-2.0); EOS % 1.1 % (0-4.5); HEMATOCRIT 27.9 % (32.4-45.2); HEMOGLOBIN 9.3 GM/dL (10.7-15.3); LYMPH % 9.2 % (8-40); MCH 31.5 pg (25.7-33.7); MCHC 33.3 g/dl (32.0-36.0); MEAN CELL VOLUME 94.5 fl (80-96); MEAN PLT VOLUME 8.5 fl (7.5-11.1); MONO % 6.1 % (3.8-10.2); NEUT % 82.2 % (42.8-82.8); PLATELET COUNT 296 10^3/uL (134-434); RBC 2.95 M/mm3 (3.60-5.2); RDW 14.8 % (11.6-15.6); WHITE BLOOD COUNT 10.5 K/mm3 (4.0-10.0)
[2023-03-27] MEDS ORDERED: ONDANSETRON 4 MG/2 ML VIAL ONE (15:25)
[2023-03-27] MEDS ORDERED: MAG HYDROX/AL HYDROX/SIMETH 30 ML UNIT-DOSE CUP ONE (15:25)
[2023-03-27] MEDS ORDERED: morphine CARPU-JECT 2 MG/1 ML DISP.SYRIN IVPUSH ONE (15:29)
[2023-03-27 15:45] LABS: CHLORIDE 99 mmol/L (98-107); POTASSIUM 4.9 mmol/L (3.5-5.1); SODIUM 133 mmol/L (136-145)
[2023-03-27 15:47] LABS: CALCIUM 10.2 mg/dL (8.5-10.1)
[2023-03-27 15:48] LABS: ANION GAP 11 mmol/L (4-13); BLOOD UREA NITROGEN 68.2 mg/dL (7-18); CO2 23 mmol/L (21-32); GLUCOSE,RANDOM 200 mg/dL (74-106)
[2023-03-27 15:51] LABS: SGOT/AST 18 U/L (15-37); SGPT/ALT 26 U/L (13-61)
[2023-03-27 15:53] LABS: BILIRUBIN,TOTAL 0.7 mg/dL (0.2-1); TOT PROT 8.5 g/dl (6.4-8.2)
[2023-03-27 15:56] LABS: ALBUMIN 3.5 g/dl (3.4-5.0); ALK PHOS 474 U/L (45-117); CREATININE 8.1 mg/dL (0.55-1.3)
[2023-03-27 17:05] LABS: LIPASE 101 U/L (73-393)
[2023-03-27] MEDS ORDERED: SODIUM CHLORIDE 250 ML IV PRN ×2 (19:48→19:49)
[2023-03-27] MEDS ORDERED: METOCLOPRAMIDE HCL INJECTION 10 MG/2 ML VIAL IVPUSH PRN (22:14)
[2023-03-27] MEDS ORDERED: METOCLOPRAMIDE HCL INJECTION 10 MG/2 ML VIAL IVPUSH ONE (22:14)
[2023-03-27] MEDS ORDERED: PIPERACILLIN/TAZOB 2.25 GM 2.25 GM in DEXTROSE 5%-WATER - 50 ML IVPB SCH (22:15)
[2023-03-27] MEDS ORDERED: ACETAMINOPHEN 1000 MG/100 ML BAG IVPB PRN (22:16)
[2023-03-27] MEDS ORDERED: ALBUTEROL SO4 HFA INHALER IH PRN (22:57)
[2023-03-28] MEDS ORDERED: cloNIDine HCL 0.1 MG TABLET PO ONE (02:56)
[2023-03-28] MEDS ORDERED: LABETALOL HCL 100 MG TABLET (FP) PO ONE ×2 (02:57→03:15)
[2023-03-28] MEDS ORDERED: NIFEdipine E.R 60 MG TABLET PO ONE (02:57)
[2023-03-28 03:41] VITALS: BMI 26.1
[2023-03-28] MEDS: HEPARIN NA (PORCINE) 5,000 UNITS/ML 1ML VIAL SQ SCH ×3 (06:17→22:01)
[2023-03-28] MEDS: LACTULOSE 20 GM/30 ML UDC (FOR ORAL USE ONLY) PO SCH ×3 (06:19→21:59)
[2023-03-28] MEDS ORDERED: INSULIN SLIDING SCALE (NOVOLOG) 1 VIAL SQ SCH (07:00)
[2023-03-28] MEDS: PIPERACILLIN/TAZOB 2.25 GM 2.25 GM in DEXTROSE 5%-WATER - 50 ML IVPB SCH ×2 (07:46→13:57)
[2023-03-28] MEDS ORDERED: METOCLOPRAMIDE HCL INJECTION 10 MG/2 ML VIAL IVPUSH PRN ×2 (08:27→22:10)
[2023-03-28 09:47] LABS: HEMOGLOBIN 8.2 GM/dL (10.7-15.3); MCH 32.1 pg (25.7-33.7); MEAN CELL VOLUME 94.5 fl (80-96); MEAN PLT VOLUME 8.8 fl (7.5-11.1); PLATELET COUNT 252 10^3/uL (134-434); RBC 2.54 M/mm3 (3.60-5.2); RDW 15.1 % (11.6-15.6); WHITE BLOOD COUNT 7.1 K/mm3 (4.0-10.0)
[2023-03-28] MEDS ORDERED: PATIENT'S OWN MEDICATION (NON-FORMULARY) (Dexlansoprazole [Dexilant] 60 MG Cap.Dr.Bp) PO SCH (10:00)
[2023-03-28 10:08] LABS: POTASSIUM 4.6 mmol/L (3.5-5.1)
[2023-03-28 10:10] LABS: CALCIUM 9.1 mg/dL (8.5-10.1); MAGNESIUM 2.6 mg/dL (1.8-2.4)
[2023-03-28 10:15] LABS: BILIRUBIN,TOTAL 0.6 mg/dL (0.2-1); TOT PROT 7.2 g/dl (6.4-8.2)
[2023-03-28 10:17] LABS: BLOOD UREA NITROGEN 39.1 mg/dL (7-18)
[2023-03-28] MEDS: POLYETHYLENE GLYCOL (HEALTHYLAX) 3350 17 GM PACKET PO SCH (13:58)
[2023-03-28] MEDS: ASPIRIN COATED 81 MG TABLET.EC PO SCH (13:58)
[2023-03-28] MEDS ORDERED: SODIUM CHLORIDE 250 ML IV PRN (13:58)
[2023-03-28] MEDS: busPIRone HCL 10 MG TABLET (FP) PO SCH ×2 (13:58→22:00)
[2023-03-28] MEDS: ISOSORBIDE MONONITRATE 60 MG TAB.SR.24H (FP) PO SCH (13:58)
[2023-03-28] MEDS: cloNIDine HCL 0.1 MG TABLET PO SCH ×2 (13:58→22:00)
[2023-03-28] MEDS: DULoxetine HCL 30 MG CAPSULE.DR PO SCH (13:58)
[2023-03-28] MEDS: BISACODYL 5 MG TABLET.DR (FP) PO SCH (13:58)
[2023-03-28] MEDS: PANTOPRAZOLE SODIUM 40 MG VIAL IVPUSH SCH (13:59)
[2023-03-28] MEDS: LABETALOL HCL 100 MG TABLET (FP) PO SCH ×2 (13:59→22:01)
[2023-03-28] MEDS: CLOPIDOGREL BISULFATE 75 MG TABLET (FP) PO SCH (13:59)
[2023-03-28] MEDS: BUDESONIDE/FORMETEROL FUMARATE 160/4.5 mcg INHALER IH SCH ×2 (13:59→22:26)
[2023-03-28] MEDS: NIFEdipine E.R 60 MG TABLET PO SCH ×2 (13:59→22:01)
[2023-03-28] MEDS: INSULIN SLIDING SCALE (NOVOLOG) 1 VIAL SQ SCH ×5 (16:37→22:04)
[2023-03-28] MEDS: SENNOSIDES 8.6MG TABLET (FP) PO SCH (22:00)
[2023-03-28] MEDS: ATORVASTATIN CA 40 MG TABLET (FP) PO SCH (22:00)
[2023-03-29] MEDS: HEPARIN NA (PORCINE) 5,000 UNITS/ML 1ML VIAL SQ SCH ×3 (06:17→21:37)
[2023-03-29] MEDS: LACTULOSE 20 GM/30 ML UDC (FOR ORAL USE ONLY) PO SCH ×4 (06:17→21:39)
[2023-03-29] MEDS: INSULIN SLIDING SCALE (NOVOLOG) 1 VIAL SQ SCH ×4 (06:21→21:44)
[2023-03-29] MEDS: DULoxetine HCL 30 MG CAPSULE.DR PO SCH ×2 (08:30→11:46)
[2023-03-29] MEDS: NIFEdipine E.R 60 MG TABLET PO SCH ×4 (08:30→21:38)
[2023-03-29] MEDS: BISACODYL 5 MG TABLET.DR (FP) PO SCH ×2 (08:30→11:47)
[2023-03-29] MEDS: ISOSORBIDE MONONITRATE 60 MG TAB.SR.24H (FP) PO SCH ×2 (08:30→11:48)
[2023-03-29] MEDS: busPIRone HCL 10 MG TABLET (FP) PO SCH ×3 (08:31→21:38)
[2023-03-29] MEDS: CLOPIDOGREL BISULFATE 75 MG TABLET (FP) PO SCH ×2 (08:31→11:49)
[2023-03-29] MEDS: BUDESONIDE/FORMETEROL FUMARATE 160/4.5 mcg INHALER IH SCH (09:01)
[2023-03-29] MEDS: PANTOPRAZOLE SODIUM 40 MG VIAL IVPUSH SCH (09:01)
[2023-03-29] MEDS ORDERED: EPOETIN ALFA-EPBX 4,000 UNIT/ML VIAL IVPUSH ONE (09:15)
[2023-03-29 09:30] LABS: BASO % 1.3 % (0-2.0); EOS % 1.8 % (0-4.5); HEMATOCRIT 25.9 % (32.4-45.2); HEMOGLOBIN 8.6 GM/dL (10.7-15.3); LYMPH % 20.7 % (8-40); MCH 31.5 pg (25.7-33.7); MCHC 33.1 g/dl (32.0-36.0); MEAN CELL VOLUME 95.2 fl (80-96); MEAN PLT VOLUME 8.6 fl (7.5-11.1); MONO % 13.2 % (3.8-10.2); PLATELET COUNT 282 10^3/uL (134-434); RBC 2.72 M/mm3 (3.60-5.2); RDW 15.5 % (11.6-15.6)
[2023-03-29 09:48] LABS: POTASSIUM 3.9 mmol/L (3.5-5.1)
[2023-03-29 09:52] LABS: ALBUMIN 3.2 g/dl (3.4-5.0); CALCIUM 9.1 mg/dL (8.5-10.1)
[2023-03-29 09:53] LABS: BLOOD UREA NITROGEN 32.3 mg/dL (7-18); MAGNESIUM 2.4 mg/dL (1.8-2.4)
[2023-03-29 09:56] LABS: CREATININE 5.1 mg/dL (0.55-1.3); PHOSPHOROUS 4.3 mg/dL (2.5-4.9)
[2023-03-29 09:57] LABS: BILIRUBIN,TOTAL 0.6 mg/dL (0.2-1); TOT PROT 7.9 g/dl (6.4-8.2)
[2023-03-29] MEDS: cloNIDine HCL 0.1 MG TABLET PO SCH ×2 (11:46→21:38)
[2023-03-29] MEDS: ASPIRIN COATED 81 MG TABLET.EC PO SCH (11:48)
[2023-03-29] MEDS: LABETALOL HCL 100 MG TABLET (FP) PO SCH ×2 (11:49→21:38)
[2023-03-29] MEDS: POLYETHYLENE GLYCOL (HEALTHYLAX) 3350 17 GM PACKET PO SCH (11:50)
[2023-03-29] MEDS ORDERED: ACETAMINOPHEN 325 MG TABLET (FP) PO PRN (13:28)
[2023-03-29] MEDS ORDERED: MAG HYDROX/AL HYDROX/SIMETH 30 ML UNIT-DOSE CUP PO ONE (17:18)
[2023-03-29] MEDS ORDERED: MAG HYDROX/AL HYDROX/SIMETH 30 ML UNIT-DOSE CUP PO PRN (20:15)
[2023-03-29] MEDS: ATORVASTATIN CA 40 MG TABLET (FP) PO SCH (21:38)
[2023-03-29] MEDS: SENNOSIDES 8.6MG TABLET (FP) PO SCH (21:38)
[2023-03-30] MEDS: BUDESONIDE/FORMETEROL FUMARATE 160/4.5 mcg INHALER IH SCH ×2 (00:12→10:12)
[2023-03-30] MEDS: INSULIN SLIDING SCALE (NOVOLOG) 1 VIAL SQ SCH ×2 (06:34→11:40)
[2023-03-30] MEDS: HEPARIN NA (PORCINE) 5,000 UNITS/ML 1ML VIAL SQ SCH ×2 (06:34→13:15)
[2023-03-30] MEDS: LACTULOSE 20 GM/30 ML UDC (FOR ORAL USE ONLY) PO SCH ×2 (06:35→13:15)
[2023-03-30] MEDS ORDERED: INSULIN SLIDING SCALE (NOVOLOG) 1 VIAL SQ ONE ×2 (06:40→11:39)
[2023-03-30] MEDS: PANTOPRAZOLE SODIUM 40 MG VIAL IVPUSH SCH (09:57)
[2023-03-30] MEDS: busPIRone HCL 10 MG TABLET (FP) PO SCH (09:57)
[2023-03-30] MEDS: NIFEdipine E.R 60 MG TABLET PO SCH (09:57)
[2023-03-30] MEDS: DULoxetine HCL 30 MG CAPSULE.DR PO SCH (09:58)
[2023-03-30] MEDS: LABETALOL HCL 100 MG TABLET (FP) PO SCH (09:58)
[2023-03-30] MEDS: cloNIDine HCL 0.1 MG TABLET PO SCH (09:58)
[2023-03-30] MEDS: ASPIRIN COATED 81 MG TABLET.EC PO SCH (10:00)
[2023-03-30] MEDS: BISACODYL 5 MG TABLET.DR (FP) PO SCH (10:04)
[2023-03-30] MEDS: POLYETHYLENE GLYCOL (HEALTHYLAX) 3350 17 GM PACKET PO SCH (10:04)
[2023-03-30] MEDS: CLOPIDOGREL BISULFATE 75 MG TABLET (FP) PO SCH (10:08)
[2023-03-30] MEDS: ISOSORBIDE MONONITRATE 60 MG TAB.SR.24H (FP) PO SCH (10:13)
[2023-03-30 13:57] VITALS: BP 152/64; PULSE 64; RESP 18; TEMP 98.5
== END 2023-03-30 15:50 | disposition home or self-care (01) ==
LOC: JER 12:07 → JERBED 18:28 → J6S 21:33
PROVIDERS: ADMIT Internal Medicine; ATTEND Internal Medicine
PROC: 3E033NZ Introduction of Analgesics, Hypnotics, Sedatives into Peripheral Vein, Percutaneous Approach (ICD-10-PCS; principal; 2023-03-27)
PROC: 3E033GC Introduction of Other Therapeutic Substance into Peripheral Vein, Percutaneous Approach (ICD-10-PCS; 2023-03-27)
PROC: 3E013VG Introduction of Insulin into Subcutaneous Tissue, Percutaneous Approach (ICD-10-PCS; 2023-03-27)
DX: J44.9 Chronic obstructive pulmonary disease, unspecified (principal); I21.4 Non-ST elevation (NSTEMI) myocardial infarction; N18.6 End stage renal disease; Z99.2 Dependence on renal dialysis; E11.43 Type 2 diabetes mellitus with diabetic autonomic (poly)neuropathy; I50.9 Heart failure, unspecified; K59.09 Other constipation; Z79.4 Long term (current) use of insulin; I16.0 Hypertensive urgency; K31.84 Gastroparesis; R18.8 Other ascites
CPT/HCPCS: 36415; 71045-TC-FY; 80053; 82962; 83690; 83735; 84100; 84484; 85025; 85027; 87040; 93005; 93010; 96365; 96372; 96375; 96376; 99285-25; G0378; J1644; Q5106

== ENCOUNTER 2023-05-06 12:15 | Inpatient (IN) | payer OTHER ==
[2023-05-06 13:56] LABS: BASO % 1.4 % (0-2.0); EOS % 1.8 % (0-4.5); HEMATOCRIT 30.5 % (32.4-45.2); HEMOGLOBIN 9.9 GM/dL (10.7-15.3); LYMPH % 16.8 % (8-40); MCH 31.2 pg (25.7-33.7); MCHC 32.6 g/dl (32.0-36.0); MEAN CELL VOLUME 95.5 fl (80-96); MEAN PLT VOLUME 9.4 fl (7.5-11.1); MONO % 8.3 % (3.8-10.2); NEUT % 71.7 % (42.8-82.8); PLATELET COUNT 193 10^3/uL (134-434); RBC 3.19 M/mm3 (3.60-5.2); RDW 15.8 % (11.6-15.6); WHITE BLOOD COUNT 4.3 K/mm3 (4.0-10.0)
[2023-05-06 14:04] LABS: INR 1.14 (0.83-1.09); PROTHROMBIN TIME (PATIENT) 13.2 SEC (9.7-13.0)
[2023-05-06 14:07] LABS: ACTIVATED PTT 31.2 SECONDS (25.2-36.5)
[2023-05-06 14:17] LABS: CHLORIDE 97 mmol/L (98-107); POTASSIUM 5.3 mmol/L (3.5-5.1); SODIUM 134 mmol/L (136-145)
[2023-05-06 14:25] LABS: ANION GAP 9 mmol/L (4-13); BLOOD UREA NITROGEN 21.1 mg/dL (7-18); CO2 27 mmol/L (21-32)
[2023-05-06 14:26] LABS: ALBUMIN 3.3 g/dl (3.4-5.0); CALCIUM 9.4 mg/dL (8.5-10.1)
[2023-05-06 14:27] LABS: MAGNESIUM 2.5 mg/dL (1.8-2.4)
[2023-05-06 14:29] LABS: CREATININE 3.6 mg/dL (0.55-1.3)
[2023-05-06 14:30] LABS: PHOSPHOROUS 4.2 mg/dL (2.5-4.9); SGOT/AST 53 U/L (15-37); SGPT/ALT 43 U/L (13-61)
[2023-05-06 14:31] LABS: BILIRUBIN,TOTAL 0.5 mg/dL (0.2-1); TOT PROT 8.2 g/dl (6.4-8.2)
[2023-05-06 14:32] LABS: ALK PHOS 445 U/L (45-117); GLUCOSE,RANDOM 408 mg/dL (74-106)
[2023-05-06] MEDS ORDERED: SODIUM CHLORIDE 250 ML IV PRN (16:31)
[2023-05-06] MEDS ORDERED: ALBUTEROL SO4 HFA INHALER IH PRN (23:43)
[2023-05-06] MEDS ORDERED: ACETAMINOPHEN 325 MG TABLET (FP) ONE (23:56)
[2023-05-07] MEDS: LABETALOL HCL 100 MG TABLET (FP) PO SCH ×3 (00:03→22:32)
[2023-05-07] MEDS: NIFEdipine E.R 60 MG TABLET PO SCH ×3 (00:03→22:32)
[2023-05-07] MEDS ORDERED: INSULIN (NOVOLOG) ASPART 100 UNITS/ML 10ML VIAL ONE (01:20)
[2023-05-07] MEDS ORDERED: INSULIN (NOVOLOG) ASPART 100 UNITS/ML 10ML VIAL SQ ONE (01:33)
[2023-05-07 04:42] VITALS: BMI 27.0
[2023-05-07] MEDS: INSULIN ASPART SLIDING SCALE (NOVOLOG) 1 VIAL SQ SCH ×4 (06:37→22:44)
[2023-05-07] MEDS: LACTULOSE 20 GM/30 ML UDC (FOR ORAL USE ONLY) PO SCH ×3 (06:40→22:31)
[2023-05-07] MEDS: HEPARIN NA (PORCINE) 5,000 UNITS/ML 1ML VIAL SQ SCH ×3 (06:41→22:36)
[2023-05-07 07:23] LABS: BASO % 1.3 % (0-2.0); EOS % 2.3 % (0-4.5); HEMATOCRIT 30.4 % (32.4-45.2); HEMOGLOBIN 9.9 GM/dL (10.7-15.3); LYMPH % 23.5 % (8-40); MCH 31.7 pg (25.7-33.7); MCHC 32.7 g/dl (32.0-36.0); MEAN CELL VOLUME 96.7 fl (80-96); MEAN PLT VOLUME 9.7 fl (7.5-11.1); MONO % 9.8 % (3.8-10.2); NEUT % 63.1 % (42.8-82.8); PLATELET COUNT 203 10^3/uL (134-434); RBC 3.14 M/mm3 (3.60-5.2); RDW 15.7 % (11.6-15.6); WHITE BLOOD COUNT 6.7 K/mm3 (4.0-10.0)
[2023-05-07 07:41] LABS: POTASSIUM 4.1 mmol/L (3.5-5.1)
[2023-05-07 07:43] LABS: CALCIUM 9.7 mg/dL (8.5-10.1)
[2023-05-07 07:44] LABS: ALBUMIN 3.6 g/dl (3.4-5.0); BLOOD UREA NITROGEN 34.2 mg/dL (7-18); MAGNESIUM 2.3 mg/dL (1.8-2.4)
[2023-05-07 07:47] LABS: CREATININE 4.2 mg/dL (0.55-1.3); PHOSPHOROUS 4.2 mg/dL (2.5-4.9)
[2023-05-07 07:49] LABS: BILIRUBIN,TOTAL 0.6 mg/dL (0.2-1); TOT PROT 8.4 g/dl (6.4-8.2)
[2023-05-07] MEDS: BUDESONIDE/FORMETEROL FUMARATE 160/4.5 mcg INHALER IH SCH ×2 (09:44→22:32)
[2023-05-07] MEDS: PANTOPRAZOLE 40 MG TABLET PO SCH (09:45)
[2023-05-07] MEDS: DULoxetine HCL 30 MG CAPSULE.DR PO SCH (09:45)
[2023-05-07] MEDS: BISACODYL 5 MG TABLET.DR (FP) PO SCH (09:45)
[2023-05-07] MEDS: CLOPIDOGREL BISULFATE 75 MG TABLET (FP) PO SCH (09:45)
[2023-05-07] MEDS: busPIRone HCL 10 MG TABLET (FP) PO SCH ×2 (09:45→22:31)
[2023-05-07] MEDS: FAMOTIDINE 10 MG TABLET PO SCH (09:45)
[2023-05-07] MEDS: POLYETHYLENE GLYCOL (HEALTHYLAX) 3350 17 GM PACKET PO SCH (09:45)
[2023-05-07] MEDS: ASPIRIN COATED 81 MG TABLET.EC PO SCH (09:45)
[2023-05-07] MEDS: ISOSORBIDE MONONITRATE 60 MG TAB.SR.24H (FP) PO SCH (09:45)
[2023-05-07] MEDS ORDERED: cloNIDine HCL 0.1 MG TABLET PO SCH (10:00)
[2023-05-07] MEDS ORDERED: ACETAMINOPHEN 325 MG TABLET (FP) PO PRN (12:42)
[2023-05-07] MEDS: ACETAMINOPHEN 325 MG TABLET (FP) PO PRN (14:01)
[2023-05-07] MEDS ORDERED: SODIUM CHLORIDE 250 ML IV PRN (19:52)
[2023-05-07] MEDS: cloNIDine HCL 0.1 MG TABLET PO SCH (22:31)
[2023-05-07] MEDS: ATORVASTATIN CA 40 MG TABLET (FP) PO SCH (22:31)
[2023-05-07] MEDS: SENNOSIDES 8.6MG TABLET (FP) PO SCH (22:32)
[2023-05-08] MEDS: ACETAMINOPHEN 325 MG TABLET (FP) PO PRN (01:30)
[2023-05-08] MEDS: LACTULOSE 20 GM/30 ML UDC (FOR ORAL USE ONLY) PO SCH ×3 (06:22→22:38)
[2023-05-08] MEDS: cloNIDine HCL 0.1 MG TABLET PO SCH ×3 (06:23→22:39)
[2023-05-08] MEDS: HEPARIN NA (PORCINE) 5,000 UNITS/ML 1ML VIAL SQ SCH ×3 (06:23→22:39)
[2023-05-08] MEDS: INSULIN ASPART SLIDING SCALE (NOVOLOG) 1 VIAL SQ SCH ×4 (06:23→22:39)
[2023-05-08 07:24] LABS: HEMATOCRIT 27.6 % (32.4-45.2); HEMOGLOBIN 9.1 GM/dL (10.7-15.3); MCH 31.5 pg (25.7-33.7); MEAN CELL VOLUME 95.4 fl (80-96); MEAN PLT VOLUME 9.9 fl (7.5-11.1); PLATELET COUNT 162 10^3/uL (134-434); RDW 15.6 % (11.6-15.6); WHITE BLOOD COUNT 4.3 K/mm3 (4.0-10.0)
[2023-05-08 07:26] LABS: CHLORIDE 95 mmol/L (98-107); POTASSIUM 5.1 mmol/L (3.5-5.1); SODIUM 134 mmol/L (136-145)
[2023-05-08 07:44] LABS: SGPT/ALT 38 U/L (13-61)
[2023-05-08 07:45] LABS: BILIRUBIN,TOTAL 0.5 mg/dL (0.2-1); CALCIUM 9.2 mg/dL (8.5-10.1); TOT PROT 7.7 g/dl (6.4-8.2)
[2023-05-08 07:47] LABS: ALBUMIN 3.3 g/dl (3.4-5.0); ALK PHOS 456 U/L (45-117); ANION GAP 12 mmol/L (4-13); CO2 27 mmol/L (21-32); CREATININE 6.1 mg/dL (0.55-1.3); MAGNESIUM 2.3 mg/dL (1.8-2.4); PHOSPHOROUS 5.8 mg/dL (2.5-4.9); SGOT/AST 23 U/L (15-37)
[2023-05-08 07:49] LABS: BLOOD UREA NITROGEN 61.7 mg/dL (7-18); GLUCOSE,RANDOM 487 mg/dL (74-106)
[2023-05-08] MEDS: BISACODYL 5 MG TABLET.DR (FP) PO SCH (09:19)
[2023-05-08] MEDS: FAMOTIDINE 10 MG TABLET PO SCH (09:19)
[2023-05-08] MEDS: PANTOPRAZOLE 40 MG TABLET PO SCH (09:19)
[2023-05-08] MEDS: DULoxetine HCL 30 MG CAPSULE.DR PO SCH (09:19)
[2023-05-08] MEDS: POLYETHYLENE GLYCOL (HEALTHYLAX) 3350 17 GM PACKET PO SCH (09:20)
[2023-05-08] MEDS: busPIRone HCL 10 MG TABLET (FP) PO SCH ×2 (09:20→22:39)
[2023-05-08] MEDS: ASPIRIN COATED 81 MG TABLET.EC PO SCH (09:20)
[2023-05-08] MEDS: CLOPIDOGREL BISULFATE 75 MG TABLET (FP) PO SCH (09:20)
[2023-05-08] MEDS: BUDESONIDE/FORMETEROL FUMARATE 160/4.5 mcg INHALER IH SCH ×2 (12:34→22:40)
[2023-05-08] MEDS: ISOSORBIDE MONONITRATE 60 MG TAB.SR.24H (FP) PO SCH (18:50)
[2023-05-08] MEDS: NIFEdipine E.R 60 MG TABLET PO SCH ×2 (18:52→22:39)
[2023-05-08] MEDS: LABETALOL HCL 100 MG TABLET (FP) PO SCH (18:59)
[2023-05-08] MEDS: ATORVASTATIN CA 40 MG TABLET (FP) PO SCH (22:39)
[2023-05-08] MEDS: SENNOSIDES 8.6MG TABLET (FP) PO SCH (22:39)
[2023-05-09] MEDS: HEPARIN NA (PORCINE) 5,000 UNITS/ML 1ML VIAL SQ SCH ×3 (06:23→21:57)
[2023-05-09] MEDS: LACTULOSE 20 GM/30 ML UDC (FOR ORAL USE ONLY) PO SCH ×3 (06:23→21:57)
[2023-05-09] MEDS: INSULIN ASPART SLIDING SCALE (NOVOLOG) 1 VIAL SQ SCH ×3 (06:25→18:02)
[2023-05-09] MEDS: cloNIDine HCL 0.1 MG TABLET PO SCH ×2 (06:25→21:58)
[2023-05-09] MEDS: ASPIRIN COATED 81 MG TABLET.EC PO SCH (09:42)
[2023-05-09] MEDS: busPIRone HCL 10 MG TABLET (FP) PO SCH ×2 (09:42→21:58)
[2023-05-09] MEDS: FAMOTIDINE 10 MG TABLET PO SCH (09:42)
[2023-05-09] MEDS: CLOPIDOGREL BISULFATE 75 MG TABLET (FP) PO SCH (09:42)
[2023-05-09] MEDS: DULoxetine HCL 30 MG CAPSULE.DR PO SCH (09:42)
[2023-05-09] MEDS: PANTOPRAZOLE 40 MG TABLET PO SCH (09:42)
[2023-05-09] MEDS: NIFEdipine E.R 60 MG TABLET PO SCH ×2 (09:43→21:58)
[2023-05-09] MEDS: POLYETHYLENE GLYCOL (HEALTHYLAX) 3350 17 GM PACKET PO SCH (09:43)
[2023-05-09] MEDS: ISOSORBIDE MONONITRATE 60 MG TAB.SR.24H (FP) PO SCH (09:43)
[2023-05-09] MEDS: BUDESONIDE/FORMETEROL FUMARATE 160/4.5 mcg INHALER IH SCH ×2 (09:43→22:00)
[2023-05-09] MEDS: BISACODYL 5 MG TABLET.DR (FP) PO SCH (09:43)
[2023-05-09] MEDS ORDERED: INSULIN (NOVOLOG MIX 70/30) 100 UNITS/ML MDV SQ ONE (11:35)
[2023-05-09] MEDS ORDERED: NIFEdipine E.R. 30 MG TABLET PO ONE (13:28)
[2023-05-09] MEDS: ATORVASTATIN CA 40 MG TABLET (FP) PO SCH (21:58)
[2023-05-09] MEDS: LABETALOL HCL 100 MG TABLET (FP) PO SCH (21:58)
[2023-05-09] MEDS: SENNOSIDES 8.6MG TABLET (FP) PO SCH (21:58)
[2023-05-09] MEDS ORDERED: NIFEdipine E.R. 90 MG TABLET PO SCH (22:00)
[2023-05-09] MEDS ORDERED: LABETALOL HCL 100 MG TABLET (FP) PO SCH ×2 (22:00)
[2023-05-09] MEDS: INSULIN (LEVEMIR) 100 UNITS/ML UNITS SQ SCH (22:00)
[2023-05-10] MEDS: HEPARIN NA (PORCINE) 5,000 UNITS/ML 1ML VIAL SQ SCH ×3 (06:29→21:40)
[2023-05-10] MEDS: LACTULOSE 20 GM/30 ML UDC (FOR ORAL USE ONLY) PO SCH ×3 (06:29→21:41)
[2023-05-10] MEDS: INSULIN ASPART SLIDING SCALE (NOVOLOG) 1 VIAL SQ SCH ×3 (06:32→17:15)
[2023-05-10] MEDS: INSULIN (LEVEMIR) 100 UNITS/ML UNITS SQ SCH ×2 (06:33→21:41)
[2023-05-10] MEDS ORDERED: SODIUM CHLORIDE 250 ML IV PRN (09:11)
[2023-05-10] MEDS ORDERED: EPOETIN ALFA-EPBX 10,000 UNIT/ML VIAL SQ ONE (09:15)
[2023-05-10 10:31] LABS: HEMATOCRIT 26.3 % (32.4-45.2); HEMOGLOBIN 8.6 GM/dL (10.7-15.3); MCH 31.5 pg (25.7-33.7); MCHC 32.8 g/dl (32.0-36.0); MEAN PLT VOLUME 10.1 fl (7.5-11.1); PLATELET COUNT 151 10^3/uL (134-434); RBC 2.74 M/mm3 (3.60-5.2); RDW 15.6 % (11.6-15.6); WHITE BLOOD COUNT 5.8 K/mm3 (4.0-10.0)
[2023-05-10 10:33] LABS: POTASSIUM 4.7 mmol/L (3.5-5.1)
[2023-05-10 10:38] LABS: ALBUMIN 3.1 g/dl (3.4-5.0); BLOOD UREA NITROGEN 54.2 mg/dL (7-18); CALCIUM 8.8 mg/dL (8.5-10.1); MAGNESIUM 2.5 mg/dL (1.8-2.4)
[2023-05-10 10:41] LABS: CREATININE 5.7 mg/dL (0.55-1.3); PHOSPHOROUS 5.9 mg/dL (2.5-4.9)
[2023-05-10 10:42] LABS: BILIRUBIN,TOTAL 0.6 mg/dL (0.2-1); TOT PROT 7.2 g/dl (6.4-8.2)
[2023-05-10] MEDS: ASPIRIN COATED 81 MG TABLET.EC PO SCH (12:50)
[2023-05-10] MEDS: BISACODYL 5 MG TABLET.DR (FP) PO SCH (12:50)
[2023-05-10] MEDS: LABETALOL HCL 100 MG TABLET (FP) PO SCH ×2 (12:50→21:39)
[2023-05-10] MEDS: NIFEdipine E.R 60 MG TABLET PO SCH ×2 (12:50→21:39)
[2023-05-10] MEDS: DULoxetine HCL 30 MG CAPSULE.DR PO SCH (12:50)
[2023-05-10] MEDS: POLYETHYLENE GLYCOL (HEALTHYLAX) 3350 17 GM PACKET PO SCH (12:51)
[2023-05-10] MEDS: busPIRone HCL 10 MG TABLET (FP) PO SCH ×2 (12:51→21:39)
[2023-05-10] MEDS: PANTOPRAZOLE 40 MG TABLET PO SCH (12:51)
[2023-05-10] MEDS: ISOSORBIDE MONONITRATE 60 MG TAB.SR.24H (FP) PO SCH (12:51)
[2023-05-10] MEDS: FAMOTIDINE 10 MG TABLET PO SCH (12:51)
[2023-05-10] MEDS: CLOPIDOGREL BISULFATE 75 MG TABLET (FP) PO SCH (12:51)
[2023-05-10] MEDS: cloNIDine HCL 0.1 MG TABLET PO SCH ×2 (12:51→21:40)
[2023-05-10] MEDS: BUDESONIDE/FORMETEROL FUMARATE 160/4.5 mcg INHALER IH SCH ×2 (12:52→21:43)
[2023-05-10] MEDS ORDERED: DOXYCYCLINE HYCLATE 100 MG CAPSULE PO ONE (17:18)
[2023-05-10] MEDS ORDERED: INSULIN (NOVOLOG) ASPART 100 UNITS/ML 10ML VIAL ONE (20:39)
[2023-05-10] MEDS: SENNOSIDES 8.6MG TABLET (FP) PO SCH (21:39)
[2023-05-10] MEDS: ATORVASTATIN CA 40 MG TABLET (FP) PO SCH (21:40)
[2023-05-11 03:45] VITALS: RESP 20
[2023-05-11] MEDS: LACTULOSE 20 GM/30 ML UDC (FOR ORAL USE ONLY) PO SCH (06:12)
[2023-05-11] MEDS: HEPARIN NA (PORCINE) 5,000 UNITS/ML 1ML VIAL SQ SCH (06:12)
[2023-05-11] MEDS: INSULIN (LEVEMIR) 100 UNITS/ML UNITS SQ SCH (06:13)
[2023-05-11] MEDS: INSULIN ASPART SLIDING SCALE (NOVOLOG) 1 VIAL SQ SCH (06:13)
[2023-05-11] MEDS ORDERED: DOXYCYCLINE HYCLATE 100 MG CAPSULE PO ONE (08:30)
[2023-05-11] MEDS: cloNIDine HCL 0.1 MG TABLET PO SCH (09:57)
[2023-05-11] MEDS: CLOPIDOGREL BISULFATE 75 MG TABLET (FP) PO SCH (09:57)
[2023-05-11] MEDS: DULoxetine HCL 30 MG CAPSULE.DR PO SCH (09:57)
[2023-05-11] MEDS: POLYETHYLENE GLYCOL (HEALTHYLAX) 3350 17 GM PACKET PO SCH (09:57)
[2023-05-11] MEDS: LABETALOL HCL 100 MG TABLET (FP) PO SCH (09:57)
[2023-05-11] MEDS: ASPIRIN COATED 81 MG TABLET.EC PO SCH (09:57)
[2023-05-11] MEDS: FAMOTIDINE 10 MG TABLET PO SCH (09:57)
[2023-05-11] MEDS: busPIRone HCL 10 MG TABLET (FP) PO SCH (09:58)
[2023-05-11] MEDS: PANTOPRAZOLE 40 MG TABLET PO SCH (09:58)
[2023-05-11] MEDS: NIFEdipine E.R 60 MG TABLET PO SCH (09:58)
[2023-05-11] MEDS: BUDESONIDE/FORMETEROL FUMARATE 160/4.5 mcg INHALER IH SCH (09:58)
[2023-05-11] MEDS: BISACODYL 5 MG TABLET.DR (FP) PO SCH (09:58)
[2023-05-11] MEDS: ISOSORBIDE MONONITRATE 60 MG TAB.SR.24H (FP) PO SCH (09:58)
[2023-05-11 11:34] VITALS: BP 177/72; PULSE 63; TEMP 97.6
== END 2023-05-11 11:44 | disposition home or self-care (01) | DRG 291 ==
LOC: JER 12:15 → JERBED 16:09 → J4W 05-07 04:22
PROVIDERS: ADMIT Internal Medicine; ATTEND Internal Medicine
PROC: 5A1D70Z Performance of Urinary Filtration, Intermittent, Less than 6 Hours Per Day (ICD-10-PCS; principal; 2023-05-08)
PROC: 5A1D70Z Performance of Urinary Filtration, Intermittent, Less than 6 Hours Per Day (ICD-10-PCS; 2023-05-08)
PROC: 5A1D70Z Performance of Urinary Filtration, Intermittent, Less than 6 Hours Per Day (ICD-10-PCS; 2023-05-10)
DX: I13.2 Hypertensive heart and chronic kidney disease with heart failure and with stage 5 chronic kidney disease, or end stage renal disease (principal); N18.6 End stage renal disease; J81.1 Chronic pulmonary edema; R18.8 Other ascites; I25.10 Atherosclerotic heart disease of native coronary artery without angina pectoris; I50.32 Chronic diastolic (congestive) heart failure; K21.9 Gastro-esophageal reflux disease without esophagitis; E78.00 Pure hypercholesterolemia, unspecified; E11.40 Type 2 diabetes mellitus with diabetic neuropathy, unspecified; E87.70 Fluid overload, unspecified; E11.43 Type 2 diabetes mellitus with diabetic autonomic (poly)neuropathy; F41.0 Panic disorder [episodic paroxysmal anxiety]; K31.84 Gastroparesis; K59.00 Constipation, unspecified; K57.90 Diverticulosis of intestine, part unspecified, without perforation or abscess without bleeding; F32.A Depression, unspecified; E11.65 Type 2 diabetes mellitus with hyperglycemia; E04.2 Nontoxic multinodular goiter; E11.22 Type 2 diabetes mellitus with diabetic chronic kidney disease; J44.9 Chronic obstructive pulmonary disease, unspecified; I27.20 Pulmonary hypertension, unspecified; E87.5 Hyperkalemia; Z95.5 Presence of coronary angioplasty implant and graft; Z89.422 Acquired absence of other left toe(s); Z99.2 Dependence on renal dialysis
CPT/HCPCS: 0241U-QW; 36415; 70450-TC; 71045-TC-FY; 76700-TC; 80053; 82962; 83735; 83880; 84100; 84484; 85025; 85027; 85610; 85730; 86704; 86803; 87340; 87517; 93005; 93010; 97116-GP; 97161-GP; 99285-25; J1644; Q5106

== ENCOUNTER 2023-06-21 15:01 | Inpatient (IN) | payer OTHER ==
[2023-06-21 17:17] LABS: BASO % 1.1 % (0-2.0); EOS % 0.1 % (0-4.5); HEMOGLOBIN 11.1 GM/dL (10.7-15.3); MCH 31.3 pg (25.7-33.7); MCHC 33.5 g/dl (32.0-36.0); MEAN CELL VOLUME 93.6 fl (80-96); MEAN PLT VOLUME 9.4 fl (7.5-11.1); MONO % 13.6 % (3.8-10.2); NEUT % 70.2 % (42.8-82.8); PLATELET COUNT 149 10^3/uL (134-434); RBC 3.53 M/mm3 (3.60-5.2); RDW 14.4 % (11.6-15.6); WHITE BLOOD COUNT 4.1 K/mm3 (4.0-10.0)
[2023-06-21 17:19] LABS: INR 1.21 (0.83-1.09)
[2023-06-21 17:21] LABS: ACTIVATED PTT 32.4 SECONDS (25.2-36.5)
[2023-06-21 17:28] LABS: VENOUS BASE EXCESS -0.2 mmol/L (-2-2); VENOUS O2 SATURATION 44.9 % (70-80); VENOUS PCO2 49.3 mmHg (38-52); VENOUS PH 7.342 (7.310-7.410)
[2023-06-21 17:48] LABS: CALCIUM 9.6 mg/dL (8.5-10.1)
[2023-06-21] MEDS ORDERED: LABETALOL HCL 200 MG TABLET (FP) ONE (17:48)
[2023-06-21] MEDS ORDERED: ACETAMINOPHEN INJECTION 100 ML IVPB ONE (17:48)
[2023-06-21 17:49] LABS: ALBUMIN 3.7 g/dl (3.4-5.0); BLOOD UREA NITROGEN 26.5 mg/dL (7-18); MAGNESIUM 2.5 mg/dL (1.8-2.4)
[2023-06-21 17:52] LABS: PHOSPHOROUS 4.5 mg/dL (2.5-4.9)
[2023-06-21 17:53] LABS: BILIRUBIN,TOTAL 0.7 mg/dL (0.2-1)
[2023-06-21 17:54] LABS: TOT PROT 8.4 g/dl (6.4-8.2)
[2023-06-21] MEDS: ACETAMINOPHEN 1000 MG/100 ML BAG IVPB ONE (18:04)
[2023-06-21] MEDS: LABETALOL HCL 200 MG TABLET (FP) PO ONE (18:04)
[2023-06-21] MEDS: ASPIRIN 81 MG CHEWABLE TABLETS PO ONE (18:05)
[2023-06-21] MEDS ORDERED: ASPIRIN 81 MG CHEWABLE TABLETS ONE (18:08)
[2023-06-21] MEDS: morphine CARPU-JECT 2 MG/1 ML DISP.SYRIN IVPUSH ONE (18:26)
[2023-06-21] MEDS ORDERED: morphine SULFATE 4 MG/ML VIAL ONE (18:49)
[2023-06-21] MEDS: morphine CARPU-JECT 4 MG/1 ML DISP.SYRIN IVPUSH ONE (18:58)
[2023-06-21] MEDS ORDERED: LIDOCAINE HCL 1%, 10 MG/ML (20ML VIAL) ONE (19:12)
[2023-06-21 19:24] LABS: N-TERMINAL BNP 133896.6 pg/ml (5-125)
[2023-06-21 20:25] LABS: POTASSIUM 5.7 mmol/L (3.5-5.1)
[2023-06-21 20:28] LABS: BLOOD UREA NITROGEN 27.2 mg/dL (7-18); CALCIUM 9.6 mg/dL (8.5-10.1)
[2023-06-21 20:32] LABS: CREATININE 6.3 mg/dL (0.55-1.3)
[2023-06-21 20:57] LABS: BF WBC & OTHER NUCLEATED CELLS 783 /mm3; BODY FLUID MESOTHELIAL 22 %; BODY FLUID MONOCYTE 10 %
[2023-06-21] MEDS: PIPERACILLIN/TAZOB 2.25 GM 2.25 GM in DEXTROSE 5%-WATER - 50 ML IVPB ONE (22:00)
[2023-06-21] MEDS ORDERED: PIPERACILLIN/TAZOB 2.25 GM 2.25 GM/50 ML BAG IVPB ONE (22:52)
[2023-06-21] MEDS ORDERED: VANCOMYCIN 1 GRAM (PRE-DOCKED) 1,000 MG/250 ML BAG IVPB ONE (22:52)
[2023-06-22] MEDS ORDERED: LABETALOL HCL 200 MG TABLET (FP) ONE (01:59)
[2023-06-22] MEDS ORDERED: NIFEdipine E.R 60 MG TABLET PO ONE (01:59)
[2023-06-22] MEDS ORDERED: busPIRone HCL 5 MG TABLET ONE (01:59)
[2023-06-22] MEDS ORDERED: DULoxetine HCL 30 MG CAPSULE.DR PO ONE (01:59)
[2023-06-22] MEDS ORDERED: FUROSEMIDE 40 MG/4 ML INJECTABLE VIAL ONE (02:00)
[2023-06-22] MEDS: VANCOMYCIN 1,000 MG in DEXTROSE 5%-WATER - 250 ML IVPB ONE (02:13)
[2023-06-22] MEDS: NIFEdipine E.R 60 MG TABLET PO SCH ×2 (02:13→10:12)
[2023-06-22] MEDS: LABETALOL HCL 100 MG TABLET (FP) PO SCH ×2 (02:13→10:11)
[2023-06-22] MEDS: FUROSEMIDE 40 MG/4 ML INJECTABLE VIAL IVPUSH ONE (02:13)
[2023-06-22] MEDS: busPIRone HCL 10 MG TABLET (FP) PO SCH ×2 (02:13→10:10)
[2023-06-22] MEDS: DULoxetine HCL 30 MG CAPSULE.DR PO SCH ×2 (02:13→10:11)
[2023-06-22] MEDS: ONDANSETRON 4 MG/2 ML VIAL IVPUSH ONE (03:22)
[2023-06-22] MEDS: LABETALOL HCL 5 MG/1 ML (100MG/20 ML VIAL) IVPUSH ONE ×2 (04:41→06:44)
[2023-06-22] MEDS ORDERED: INSULIN (LEVEMIR) 100 UNITS/ML UNITS SQ SCH ×2 (07:00→22:00)
[2023-06-22] MEDS: INSULIN ASPART SLIDING SCALE (NOVOLOG) 1 VIAL SQ SCH ×2 (07:05→11:34)
[2023-06-22] MEDS: cloNIDine HCL 0.1 MG TABLET PO ONE (07:06)
[2023-06-22] MEDS: PANTOPRAZOLE 40 MG TABLET PO SCH (07:06)
[2023-06-22] MEDS ORDERED: SODIUM CHLORIDE 250 ML IV PRN (07:09)
[2023-06-22] MEDS ORDERED: BUDESONIDE/FORMETEROL FUMARATE 160/4.5 mcg INHALER IH SCH (10:00)
[2023-06-22] MEDS ORDERED: cloNIDine HCL 0.1 MG TABLET PO SCH (10:00)
[2023-06-22] MEDS ORDERED: ISOSORBIDE MONONITRATE 60 MG TAB.SR.24H (FP) PO SCH (10:00)
[2023-06-22] MEDS ORDERED: PATIENT'S OWN MEDICATION (NON-FORMULARY) (Famotidine 40 MG Tablet) PO SCH (10:00)
[2023-06-22] MEDS ORDERED: FAMOTIDINE 10 MG TABLET PO SCH (10:00)
[2023-06-22] MEDS ORDERED: ASPIRIN COATED 81 MG TABLET.EC PO SCH (10:00)
[2023-06-22] MEDS ORDERED: CLOPIDOGREL BISULFATE 75 MG TABLET (FP) PO SCH (10:00)
[2023-06-22] MEDS ORDERED: HEPARIN NA (PORCINE) 5,000 UNITS/ML 1ML VIAL SQ SCH (10:00)
[2023-06-22] MEDS ORDERED: LOSARTAN POTASSIUM 50 MG TABLET PO SCH (10:00)
[2023-06-22] MEDS: ASPIRIN COATED 81 MG TABLET.EC PO SCH (10:11)
[2023-06-22] MEDS: ISOSORBIDE MONONITRATE 60 MG TAB.SR.24H (FP) PO ONE (10:11)
[2023-06-22] MEDS: cloNIDine HCL 0.1 MG TABLET PO SCH (10:11)
[2023-06-22] MEDS: FAMOTIDINE 10 MG TABLET PO SCH (10:12)
[2023-06-22] MEDS: CLOPIDOGREL BISULFATE 75 MG TABLET (FP) PO SCH (10:12)
[2023-06-22] MEDS: HEPARIN NA (PORCINE) 5,000 UNITS/ML 1ML VIAL SQ SCH (10:12)
[2023-06-22] MEDS: LOSARTAN POTASSIUM 50 MG TABLET PO SCH (10:12)
[2023-06-22] MEDS: BUDESONIDE/FORMETEROL FUMARATE 160/4.5 mcg INHALER IH SCH (10:13)
[2023-06-22 11:04] LABS: ALLENS TEST POSITIVE; ARTERIAL BLD GAS O2 SATURATION 92.7 % (95-98); ARTERIAL BLOOD GAS BASE EXCESS -0.8 mmol/L (-2-2); ARTERIAL BLOOD GAS PO2 67.9 mmHg (80-100); ARTERIAL BLOOD GAS pH 7.353 (7.350-7.450)
[2023-06-22 14:22] LABS: BASO % 0.8 % (0-2.0); EOS % 0.2 % (0-4.5); HEMATOCRIT 31.2 % (32.4-45.2); HEMOGLOBIN 10.6 GM/dL (10.7-15.3); LYMPH % 17.2 % (8-40); MCH 31.9 pg (25.7-33.7); MCHC 34.1 g/dl (32.0-36.0); MEAN CELL VOLUME 93.4 fl (80-96); MEAN PLT VOLUME 9.8 fl (7.5-11.1); MONO % 15.4 % (3.8-10.2); NEUT % 66.4 % (42.8-82.8); PLATELET COUNT 132 10^3/uL (134-434); RBC 3.33 M/mm3 (3.60-5.2); RDW 14.7 % (11.6-15.6); WHITE BLOOD COUNT 5.6 K/mm3 (4.0-10.0)
[2023-06-22 14:46] LABS: POTASSIUM 4.8 mmol/L (3.5-5.1)
[2023-06-22 14:49] LABS: ALBUMIN 3.4 g/dl (3.4-5.0); BLOOD UREA NITROGEN 35.9 mg/dL (7-18); MAGNESIUM 2.3 mg/dL (1.8-2.4)
[2023-06-22 14:52] LABS: CREATININE 7.1 mg/dL (0.55-1.3)
[2023-06-22 14:53] LABS: BILIRUBIN,TOTAL 0.6 mg/dL (0.2-1); TOT PROT 7.9 g/dl (6.4-8.2)
[2023-06-22] MEDS: LABETALOL HCL 200 MG TABLET (FP) PO SCH (23:51)
[2023-06-23] MEDS: ACETAMINOPHEN 325 MG TABLET (FP) PO ONE (04:12)
[2023-06-23] MEDS ORDERED: INSULIN (NOVOLOG) ASPART 100 UNITS/ML 10ML VIAL ONE ×2 (06:13→12:13)
[2023-06-23] MEDS: PANTOPRAZOLE 40 MG TABLET PO SCH (06:25)
[2023-06-23 06:44] LABS: HEMATOCRIT 28.5 % (32.4-45.2); HEMOGLOBIN 9.6 GM/dL (10.7-15.3); MCH 31.5 pg (25.7-33.7); MCHC 33.7 g/dl (32.0-36.0); MEAN CELL VOLUME 93.4 fl (80-96); MEAN PLT VOLUME 9.7 fl (7.5-11.1); PLATELET COUNT 121 10^3/uL (134-434); RBC 3.06 M/mm3 (3.60-5.2); RDW 14.3 % (11.6-15.6); WHITE BLOOD COUNT 4.1 K/mm3 (4.0-10.0)
[2023-06-23 07:00] LABS: POTASSIUM 3.8 mmol/L (3.5-5.1)
[2023-06-23 07:06] LABS: BLOOD UREA NITROGEN 21.4 mg/dL (7-18); CALCIUM 8.2 mg/dL (8.5-10.1)
[2023-06-23 07:07] LABS: ALBUMIN 3.2 g/dl (3.4-5.0)
[2023-06-23 07:10] LABS: CREATININE 4.4 mg/dL (0.55-1.3)
[2023-06-23 07:11] LABS: BILIRUBIN,TOTAL 0.6 mg/dL (0.2-1); TOT PROT 7.4 g/dl (6.4-8.2)
[2023-06-23 08:53] LABS: ANISOCYTOSIS 0; MACROCYTOSIS 1+
[2023-06-23] MEDS: ISOSORBIDE MONONITRATE 60 MG TAB.SR.24H (FP) PO SCH (10:08)
[2023-06-23] MEDS: BISACODYL 5 MG TABLET.DR (FP) PO ONE (21:49)
[2023-06-23] MEDS: ALBUTEROL SO4 2.5/IPRATROPIUM 0.5 INH SOL 3 ML VIAL.NEB. NEB PRN (22:03)
[2023-06-24] MEDS ORDERED: SODIUM CHLORIDE 250 ML IV PRN (08:06)
[2023-06-24 08:09] LABS: POTASSIUM 3.9 mmol/L (3.5-5.1)
[2023-06-24 08:11] LABS: CALCIUM 8.8 mg/dL (8.5-10.1)
[2023-06-24 08:12] LABS: ALBUMIN 3.1 g/dl (3.4-5.0); BLOOD UREA NITROGEN 39.1 mg/dL (7-18)
[2023-06-24 08:16] LABS: BILIRUBIN,TOTAL 0.6 mg/dL (0.2-1); TOT PROT 7.4 g/dl (6.4-8.2)
[2023-06-24 09:14] LABS: BASO % 0.9 % (0-2.0); EOS % 1.2 % (0-4.5); HEMATOCRIT 29.9 % (32.4-45.2); HEMOGLOBIN 9.9 GM/dL (10.7-15.3); MCH 31.2 pg (25.7-33.7); MCHC 33.3 g/dl (32.0-36.0); MEAN CELL VOLUME 93.7 fl (80-96); MEAN PLT VOLUME 10.8 fl (7.5-11.1); MONO % 14.8 % (3.8-10.2); NEUT % 62.1 % (42.8-82.8); PLATELET COUNT 129 10^3/uL (134-434); RBC 3.19 M/mm3 (3.60-5.2); WHITE BLOOD COUNT 3.9 K/mm3 (4.0-10.0)
[2023-06-24] MEDS: EPOETIN ALFA-EPBX 4,000 UNIT/ML VIAL IVPUSH ONE (09:42)
[2023-06-24] MEDS: VITAMIN B COMP W-C 1 EA TABLET (NEPHRO-VITE) PO SCH (14:18)
[2023-06-24] MEDS: methylPREDNISolone NA SUCC 40 MG/1 ML VIAL IVPUSH SCH (14:18)
[2023-06-24] MEDS: ACETAMINOPHEN 325 MG TABLET (FP) PO ONE (19:24)
[2023-06-25 08:40] LABS: BASO % 0.4 % (0-2.0); HEMATOCRIT 32.1 % (32.4-45.2); HEMOGLOBIN 10.5 GM/dL (10.7-15.3); LYMPH % 19.4 % (8-40); MCH 30.7 pg (25.7-33.7); MCHC 32.8 g/dl (32.0-36.0); MEAN CELL VOLUME 93.5 fl (80-96); MEAN PLT VOLUME 10.4 fl (7.5-11.1); MONO % 3.5 % (3.8-10.2); NEUT % 76.7 % (42.8-82.8); PLATELET COUNT 167 10^3/uL (134-434); RBC 3.44 M/mm3 (3.60-5.2); RDW 14.2 % (11.6-15.6); WHITE BLOOD COUNT 2.4 K/mm3 (4.0-10.0)
[2023-06-25 09:05] LABS: CHLORIDE 93 mmol/L (98-107); POTASSIUM 3.8 mmol/L (3.5-5.1); SODIUM 133 mmol/L (136-145)
[2023-06-25 09:09] LABS: CALCIUM 8.9 mg/dL (8.5-10.1)
[2023-06-25 09:10] LABS: ALBUMIN 3.3 g/dl (3.4-5.0); ANION GAP 10 mmol/L (4-13); BLOOD UREA NITROGEN 29.4 mg/dL (7-18); CO2 31 mmol/L (21-32)
[2023-06-25 09:13] LABS: CREATININE 4.5 mg/dL (0.55-1.3); SGOT/AST 20 U/L (15-37); SGPT/ALT 22 U/L (13-61)
[2023-06-25 09:14] LABS: TOT PROT 8.3 g/dl (6.4-8.2)
[2023-06-25 09:15] LABS: BILIRUBIN,TOTAL 0.6 mg/dL (0.2-1)
[2023-06-25 09:16] LABS: ALK PHOS 349 U/L (45-117); GLUCOSE,RANDOM 459 mg/dL (74-106)
[2023-06-25] MEDS: INSULIN ASPART SLIDING SCALE (NOVOLOG) 1 VIAL SQ SCH (10:13)
[2023-06-25] MEDS: INSULIN (LEVEMIR) 100 UNITS/ML UNITS SQ ONE (10:13)
[2023-06-25] MEDS: methylPREDNISolone NA SUCC 40 MG/1 ML VIAL IVPUSH SCH (22:02)
[2023-06-26 09:12] LABS: BASO % 0.3 % (0-2.0); HEMATOCRIT 29.8 % (32.4-45.2); HEMOGLOBIN 10.3 GM/dL (10.7-15.3); LYMPH % 21.8 % (8-40); MCH 31.8 pg (25.7-33.7); MCHC 34.5 g/dl (32.0-36.0); MEAN PLT VOLUME 9.9 fl (7.5-11.1); MONO % 7.3 % (3.8-10.2); NEUT % 70.6 % (42.8-82.8); PLATELET COUNT 189 10^3/uL (134-434); RBC 3.24 M/mm3 (3.60-5.2); RDW 14.8 % (11.6-15.6); WHITE BLOOD COUNT 5.3 K/mm3 (4.0-10.0)
[2023-06-26 09:21] LABS: POTASSIUM 4.4 mmol/L (3.5-5.1)
[2023-06-26 09:25] LABS: CALCIUM 9.6 mg/dL (8.5-10.1)
[2023-06-26 09:26] LABS: ALBUMIN 3.1 g/dl (3.4-5.0); BLOOD UREA NITROGEN 49.9 mg/dL (7-18); CREATININE 5.7 mg/dL (0.55-1.3)
[2023-06-26 09:28] LABS: BILIRUBIN,TOTAL 0.6 mg/dL (0.2-1); TOT PROT 7.4 g/dl (6.4-8.2)
[2023-06-26] MEDS ORDERED: SODIUM CHLORIDE 250 ML IV PRN ×2 (10:12→21:04)
[2023-06-26] MEDS: EPOETIN ALFA-EPBX 4,000 UNIT/ML VIAL IVPUSH ONE (11:51)
[2023-06-26] MEDS: ALBUTEROL SO4 2.5/IPRATROPIUM 0.5 INH SOL 3 ML VIAL.NEB. NEB SCH (15:40)
[2023-06-26] MEDS: DULoxetine HCL 30 MG CAPSULE.DR PO SCH (21:22)
[2023-06-26] MEDS: HEPARIN NA (PORCINE) 5,000 UNITS/ML 1ML VIAL SQ SCH (21:23)
[2023-06-26] MEDS: LABETALOL HCL 200 MG TABLET (FP) PO SCH (21:23)
[2023-06-26] MEDS: cloNIDine HCL 0.1 MG TABLET PO SCH (21:23)
[2023-06-26] MEDS: busPIRone HCL 10 MG TABLET (FP) PO SCH (21:23)
[2023-06-26] MEDS: NIFEdipine E.R 60 MG TABLET PO SCH (21:23)
[2023-06-26] MEDS: BUDESONIDE/FORMETEROL FUMARATE 160/4.5 mcg INHALER IH SCH (21:30)
[2023-06-26] MEDS: INSULIN (LEVEMIR) 100 UNITS/ML UNITS SQ SCH (21:34)
[2023-06-26] MEDS: INSULIN ASPART SLIDING SCALE (NOVOLOG) 1 VIAL SQ SCH (21:34)
[2023-06-27] MEDS: PANTOPRAZOLE 40 MG TABLET PO SCH (06:19)
[2023-06-27] MEDS: ISOSORBIDE MONONITRATE 60 MG TAB.SR.24H (FP) PO SCH (09:49)
[2023-06-27] MEDS: ASPIRIN COATED 81 MG TABLET.EC PO SCH (09:49)
[2023-06-27] MEDS: LOSARTAN POTASSIUM 50 MG TABLET PO SCH (09:50)
[2023-06-27] MEDS: FAMOTIDINE 10 MG TABLET PO SCH (09:50)
[2023-06-27] MEDS: CLOPIDOGREL BISULFATE 75 MG TABLET (FP) PO SCH (09:50)
[2023-06-27] MEDS: VITAMIN B COMP W-C 1 EA TABLET (NEPHRO-VITE) PO SCH (09:51)
[2023-06-27] MEDS ORDERED: BISACODYL 10 MG SUPP.RECT PR PRN (18:34)
[2023-06-27] MEDS: BISACODYL 5 MG TABLET.DR (FP) PO ONE (19:00)
[2023-06-27] MEDS ORDERED: INSULIN (LEVEMIR) 100 UNITS/ML UNITS SQ SCH (22:00)
[2023-06-27] MEDS: ATORVASTATIN CA 40 MG TABLET (FP) PO SCH (22:01)
[2023-06-27] MEDS: INSULIN (LEVEMIR) 100 UNITS/ML UNITS SQ SCH (22:25)
[2023-06-28] MEDS: INSULIN (LEVEMIR) 100 UNITS/ML UNITS SQ SCH (06:12)
[2023-06-28 08:37] LABS: BASO % 0.3 % (0-2.0); EOS % 0.1 % (0-4.5); HEMATOCRIT 28.7 % (32.4-45.2); HEMOGLOBIN 9.9 GM/dL (10.7-15.3); LYMPH % 13.6 % (8-40); MCH 32.1 pg (25.7-33.7); MCHC 34.5 g/dl (32.0-36.0); MEAN CELL VOLUME 93.2 fl (80-96); MEAN PLT VOLUME 9.3 fl (7.5-11.1); MONO % 4.7 % (3.8-10.2); NEUT % 81.3 % (42.8-82.8); PLATELET COUNT 218 10^3/uL (134-434); RBC 3.08 M/mm3 (3.60-5.2); RDW 14.9 % (11.6-15.6); WHITE BLOOD COUNT 6.5 K/mm3 (4.0-10.0)
[2023-06-28] MEDS ORDERED: SODIUM CHLORIDE 250 ML IV PRN (09:17)
[2023-06-28 09:49] LABS: POTASSIUM 4.6 mmol/L (3.5-5.1)
[2023-06-28 09:53] LABS: ALBUMIN 3.3 g/dl (3.4-5.0); CALCIUM 9.5 mg/dL (8.5-10.1); MAGNESIUM 2.1 mg/dL (1.8-2.4)
[2023-06-28 09:56] LABS: CREATININE 5.3 mg/dL (0.55-1.3)
[2023-06-28 09:57] LABS: PHOSPHOROUS 2.9 mg/dL (2.5-4.9)
[2023-06-28 09:58] LABS: BILIRUBIN,TOTAL 0.7 mg/dL (0.2-1); TOT PROT 7.5 g/dl (6.4-8.2)
[2023-06-28] MEDS: EPOETIN ALFA-EPBX 4,000 UNIT/ML VIAL IVPUSH ONE (10:47)
[2023-06-28] MEDS ORDERED: BISACODYL 10 MG SUPP.RECT PR PRN (15:05)
[2023-06-28] MEDS: BISACODYL 5 MG TABLET.DR (FP) PO ONE (15:36)
[2023-06-28] MEDS: BISACODYL 10 MG SUPP.RECT PR ONE (15:36)
[2023-06-28] MEDS: LACTULOSE 20 GM/30 ML UDC (FOR ORAL USE ONLY) PO PRN (18:30)
[2023-06-28] MEDS: MAGNESIUM CITRATE 300 ML BOTTLE PO ONE (18:40)
[2023-06-28 23:53] VITALS: BMI 27.4
[2023-06-29 09:24] LABS: BASO % 0.5 % (0-2.0); EOS % 0.1 % (0-4.5); HEMOGLOBIN 10.4 GM/dL (10.7-15.3); LYMPH % 19.5 % (8-40); MCH 31.5 pg (25.7-33.7); MCHC 33.5 g/dl (32.0-36.0); MEAN CELL VOLUME 94.1 fl (80-96); MEAN PLT VOLUME 9.1 fl (7.5-11.1); MONO % 9.6 % (3.8-10.2); NEUT % 70.3 % (42.8-82.8); PLATELET COUNT 254 10^3/uL (134-434); RDW 14.7 % (11.6-15.6); WHITE BLOOD COUNT 9.2 K/mm3 (4.0-10.0)
[2023-06-29 10:00] LABS: ALBUMIN 3.4 g/dl (3.4-5.0); BLOOD UREA NITROGEN 47.4 mg/dL (7-18); CALCIUM 9.3 mg/dL (8.5-10.1)
[2023-06-29 10:01] LABS: MAGNESIUM 2.1 mg/dL (1.8-2.4)
[2023-06-29 10:02] LABS: BILIRUBIN,TOTAL 0.7 mg/dL (0.2-1); PHOSPHOROUS 2.2 mg/dL (2.5-4.9); TOT PROT 8.1 g/dl (6.4-8.2)
[2023-06-29 10:03] LABS: CREATININE 3.9 mg/dL (0.55-1.3)
[2023-06-29 15:06] VITALS: BP 140/58; PULSE 71; RESP 18; TEMP 98
[2023-06-30] MEDS ORDERED: methylPREDNISolone NA SUCC 40 MG/1 ML VIAL IVPUSH SCH (10:00)
== END 2023-06-29 17:46 | disposition home or self-care (01) | DRG 190 ==
LOC: JER 15:01 → JERBED 19:43 → J8W 06-22 02:40 → J4W 06-22 06:31 → J6S 06-26 17:42
PROVIDERS: ADMIT Internal Medicine; ATTEND Internal Medicine
PROC: 0W9G3ZZ Drainage of Peritoneal Cavity, Percutaneous Approach (ICD-10-PCS; principal; 2023-06-21)
PROC: 5A1D70Z Performance of Urinary Filtration, Intermittent, Less than 6 Hours Per Day (ICD-10-PCS; 2023-06-22)
PROC: 5A1D70Z Performance of Urinary Filtration, Intermittent, Less than 6 Hours Per Day (ICD-10-PCS; 2023-06-24)
PROC: 5A1D70Z Performance of Urinary Filtration, Intermittent, Less than 6 Hours Per Day (ICD-10-PCS; 2023-06-26)
PROC: 5A1D70Z Performance of Urinary Filtration, Intermittent, Less than 6 Hours Per Day (ICD-10-PCS; 2023-06-28)
DX: J44.1 Chronic obstructive pulmonary disease with (acute) exacerbation (principal); N18.6 End stage renal disease; I24.89 Other forms of acute ischemic heart disease; J96.11 Chronic respiratory failure with hypoxia; R18.8 Other ascites; I13.2 Hypertensive heart and chronic kidney disease with heart failure and with stage 5 chronic kidney disease, or end stage renal disease; I50.32 Chronic diastolic (congestive) heart failure; E11.43 Type 2 diabetes mellitus with diabetic autonomic (poly)neuropathy; E11.22 Type 2 diabetes mellitus with diabetic chronic kidney disease; Z99.2 Dependence on renal dialysis; K31.84 Gastroparesis; K59.00 Constipation, unspecified; E78.00 Pure hypercholesterolemia, unspecified; E11.65 Type 2 diabetes mellitus with hyperglycemia; E11.40 Type 2 diabetes mellitus with diabetic neuropathy, unspecified; K21.9 Gastro-esophageal reflux disease without esophagitis; I25.10 Atherosclerotic heart disease of native coronary artery without angina pectoris; I27.20 Pulmonary hypertension, unspecified; K57.90 Diverticulosis of intestine, part unspecified, without perforation or abscess without bleeding; D63.1 Anemia in chronic kidney disease; K44.9 Diaphragmatic hernia without obstruction or gangrene; E04.1 Nontoxic single thyroid nodule; I25.2 Old myocardial infarction; I73.9 Peripheral vascular disease, unspecified; I16.0 Hypertensive urgency; F41.8 Other specified anxiety disorders; Z95.5 Presence of coronary angioplasty implant and graft; Z89.422 Acquired absence of other left toe(s); E66.9 Obesity, unspecified; Z68.27 Body mass index [BMI] 27.0-27.9, adult; Z91.148 Patient's other noncompliance with medication regimen for other reason
CPT/HCPCS: 0241U-QW; 36415; 36600; 71045-TC-FY; 74176-TC; 76705-TC; 80048; 80053; 82140; 82803; 82962; 83605; 83735; 83880; 84100; 84484; 85025; 85610; 85730; 86704; 86803; 86850; 86900; 86901; 87040; 87070; 87075; 87205; 87340; 87517; 93005; 93010; 94640; 99285-25; J0131; J1644; Q5106

== ENCOUNTER 2023-07-03 16:06 | Observation (INO) | payer OTHER ==
[2023-07-03 16:17] VITALS: BMI 29.5
[2023-07-03 17:43] LABS: BASO % 0.7 % (0-2.0); EOS % 0.6 % (0-4.5); HEMATOCRIT 22.3 % (32.4-45.2); HEMOGLOBIN 7.5 GM/dL (10.7-15.3); LYMPH % 13.6 % (8-40); MCH 31.4 pg (25.7-33.7); MCHC 33.5 g/dl (32.0-36.0); MEAN CELL VOLUME 93.7 fl (80-96); MEAN PLT VOLUME 8.8 fl (7.5-11.1); MONO % 12.4 % (3.8-10.2); NEUT % 72.7 % (42.8-82.8); PLATELET COUNT 227 10^3/uL (134-434); RBC 2.38 M/mm3 (3.60-5.2); RDW 16.3 % (11.6-15.6); WHITE BLOOD COUNT 6.4 K/mm3 (4.0-10.0)
[2023-07-03 18:03] LABS: INR 1.06 (0.83-1.09); PROTHROMBIN TIME (PATIENT) 12.3 SEC (9.7-13.0)
[2023-07-03 18:05] LABS: ACTIVATED PTT 24.2 SECONDS (25.2-36.5)
[2023-07-03 18:17] LABS: POTASSIUM 4.5 mmol/L (3.5-5.1)
[2023-07-03 18:19] LABS: ALBUMIN 3.4 g/dl (3.4-5.0); CALCIUM 8.8 mg/dL (8.5-10.1); MAGNESIUM 2.1 mg/dL (1.8-2.4)
[2023-07-03 18:22] LABS: CREATININE 3.7 mg/dL (0.55-1.3)
[2023-07-03 18:24] LABS: BILIRUBIN,TOTAL 0.6 mg/dL (0.2-1); TOT PROT 7.7 g/dl (6.4-8.2)
[2023-07-03 18:47] LABS: N-TERMINAL BNP 92552.8 pg/ml (5-125)
[2023-07-04] MEDS: LIDOCAINE 4% PATCH TP ONE (03:40)
[2023-07-04] MEDS: ACETAMINOPHEN 1000 MG/100 ML BAG IVPB PRN (03:41)
[2023-07-04] MEDS: IRON SUCROSE INJECTION 200 MG in SODIUM CHLORIDE 100 ML IVPB ONE (05:41)
[2023-07-04] MEDS ORDERED: HEPARIN NA (PORCINE) 5,000 UNITS/ML 1ML VIAL SQ SCH (06:00)
[2023-07-04] MEDS: INSULIN ASPART SLIDING SCALE (NOVOLOG) 1 VIAL SQ SCH (07:15)
[2023-07-04 08:50] LABS: BASO % 0.7 % (0-2.0); EOS % 0.6 % (0-4.5); HEMATOCRIT 23.9 % (32.4-45.2); HEMOGLOBIN 7.8 GM/dL (10.7-15.3); LYMPH % 11.8 % (8-40); MCH 31.5 pg (25.7-33.7); MCHC 32.6 g/dl (32.0-36.0); MEAN CELL VOLUME 96.5 fl (80-96); MEAN PLT VOLUME 9.1 fl (7.5-11.1); MONO % 8.5 % (3.8-10.2); NEUT % 78.4 % (42.8-82.8); PLATELET COUNT 206 10^3/uL (134-434); RBC 2.48 M/mm3 (3.60-5.2); RDW 16.5 % (11.6-15.6); WHITE BLOOD COUNT 6.3 K/mm3 (4.0-10.0)
[2023-07-04 09:14] LABS: CHLORIDE 100 mmol/L (98-107); POTASSIUM 4.9 mmol/L (3.5-5.1); SODIUM 134 mmol/L (136-145)
[2023-07-04 09:19] LABS: MAGNESIUM 2.2 mg/dL (1.8-2.4)
[2023-07-04 09:20] LABS: CREATININE 4.5 mg/dL (0.55-1.3); IRON SERUM 217 ug/dL (50-175); SGOT/AST 15 U/L (15-37); SGPT/ALT 27 U/L (13-61)
[2023-07-04 09:21] LABS: ALBUMIN 3.3 g/dl (3.4-5.0); ANION GAP 7 mmol/L (4-13); BLOOD UREA NITROGEN 41.4 mg/dL (7-18); CO2 26 mmol/L (21-32); TOTAL IRON BINDING CAPACITY 300 ug/dL (250-450)
[2023-07-04 09:24] LABS: PHOSPHOROUS 4.7 mg/dL (2.5-4.9)
[2023-07-04 09:25] LABS: TOT PROT 7.4 g/dl (6.4-8.2)
[2023-07-04 09:26] LABS: BILIRUBIN,TOTAL 0.6 mg/dL (0.2-1)
[2023-07-04 09:27] LABS: ALK PHOS 322 U/L (45-117)
[2023-07-04 09:31] LABS: GLUCOSE,RANDOM 407 mg/dL (74-106)
[2023-07-04] MEDS: busPIRone HCL 10 MG TABLET (FP) PO SCH (10:25)
[2023-07-04] MEDS: LABETALOL HCL 200 MG TABLET (FP) PO SCH (10:25)
[2023-07-04] MEDS: DULoxetine HCL 30 MG CAPSULE.DR PO SCH (10:26)
[2023-07-04] MEDS: FAMOTIDINE 10 MG TABLET PO SCH (10:26)
[2023-07-04] MEDS: NIFEdipine E.R 60 MG TABLET PO SCH (10:26)
[2023-07-04] MEDS: LOSARTAN POTASSIUM 50 MG TABLET PO SCH (10:26)
[2023-07-04] MEDS: ISOSORBIDE MONONITRATE 60 MG TAB.SR.24H (FP) PO SCH (10:26)
[2023-07-04] MEDS: PANTOPRAZOLE 40 MG TABLET PO SCH (10:26)
[2023-07-04] MEDS: BUDESONIDE/FORMOTEROL FUMARATE 80-4.5 MCG (10.3 GM INHALER) IH SCH (10:54)
[2023-07-04] MEDS ORDERED: INSULIN ASPART SLIDING SCALE (NOVOLOG) 1 VIAL SQ ONE (11:51)
[2023-07-04] MEDS ORDERED: EPOETIN ALFA-EPBX 10,000 UNIT/ML VIAL IVPUSH ONE (19:16)
[2023-07-04] MEDS: ATORVASTATIN CA 40 MG TABLET (FP) PO SCH (21:15)
[2023-07-04] MEDS: LIDOCAINE PATCH REMOVAL MC SCH (21:25)
[2023-07-05 01:26] VITALS: RESP 18
[2023-07-05] MEDS: INSULIN (LEVEMIR) 100 UNITS/ML UNITS SQ SCH (08:41)
[2023-07-05 10:22] LABS: BASO % 0.7 % (0-2.0); HEMATOCRIT 22.8 % (32.4-45.2); HEMOGLOBIN 7.5 GM/dL (10.7-15.3); LYMPH % 10.9 % (8-40); MCH 31.2 pg (25.7-33.7); MEAN CELL VOLUME 94.6 fl (80-96); MEAN PLT VOLUME 9.7 fl (7.5-11.1); MONO % 9.7 % (3.8-10.2); NEUT % 77.7 % (42.8-82.8); PLATELET COUNT 201 10^3/uL (134-434); RBC 2.41 M/mm3 (3.60-5.2); RDW 16.3 % (11.6-15.6)
[2023-07-05] MEDS ORDERED: SODIUM CHLORIDE 250 ML IV PRN (10:31)
[2023-07-05 10:45] LABS: POTASSIUM 5.8 mmol/L (3.5-5.1)
[2023-07-05 10:52] LABS: CALCIUM 9.1 mg/dL (8.5-10.1)
[2023-07-05 10:53] LABS: ALBUMIN 3.2 g/dl (3.4-5.0); BLOOD UREA NITROGEN 58.3 mg/dL (7-18)
[2023-07-05 10:55] LABS: CREATININE 5.4 mg/dL (0.55-1.3)
[2023-07-05 10:57] LABS: BILIRUBIN,TOTAL 0.7 mg/dL (0.2-1); TOT PROT 7.1 g/dl (6.4-8.2)
[2023-07-05] MEDS: EPOETIN ALFA-EPBX 10,000 UNIT/ML VIAL IVPUSH ONE (12:30)
[2023-07-05] MEDS: INSULIN (NOVOLOG) ASPART 100 UNITS/ML 10ML VIAL SQ SCH (14:16)
[2023-07-05] MEDS: LIDOCAINE 4% PATCH TP SCH (17:46)
[2023-07-05] MEDS ORDERED: ACETAMINOPHEN 500 MG TABLET (FP) PO PRN (19:45)
[2023-07-05] MEDS: ACETAMINOPHEN 325 MG TABLET (FP) PO PRN (19:53)
[2023-07-05] MEDS: LIDOCAINE PATCH REMOVAL MC SCH (21:29)
[2023-07-06] MEDS ORDERED: DEXTROSE 50%-WATER 25 GM/50 ML DISP.SYRIN ONE (08:52)
[2023-07-06] MEDS ORDERED: DEXTROSE 5%-WATER 500 ML PVC-FREE INFUS.BAG IV ONE (09:02)
[2023-07-06 10:04] VITALS: TEMP 97.8
[2023-07-06] MEDS ORDERED: DEXAMETHASONE SOD PHOSPHATE 10 MG/1 ML VIAL ONE (10:19)
[2023-07-06] MEDS: DEXTROSE 50%-WATER 25 GM/50 ML DISP.SYRIN IVPUSH ONE ×3 (10:25→18:18)
[2023-07-06] MEDS ORDERED: DEXTROSE 50%-WATER - 25 GM/50 ML VIAL IVPUSH PRN (10:56)
[2023-07-06 11:51] LABS: HEMATOCRIT 25.7 % (32.4-45.2); HEMOGLOBIN 8.4 GM/dL (10.7-15.3); LYMPH % 10.1 % (8-40); MCH 31.5 pg (25.7-33.7); MCHC 32.8 g/dl (32.0-36.0); MEAN PLT VOLUME 9.4 fl (7.5-11.1); NEUT % 73.9 % (42.8-82.8); PLATELET COUNT 184 10^3/uL (134-434); RBC 2.68 M/mm3 (3.60-5.2); RDW 16.7 % (11.6-15.6); WHITE BLOOD COUNT 7.8 K/mm3 (4.0-10.0)
[2023-07-06 12:18] LABS: POTASSIUM 4.6 mmol/L (3.5-5.1)
[2023-07-06 12:22] LABS: ALBUMIN 3.4 g/dl (3.4-5.0); CALCIUM 9.3 mg/dL (8.5-10.1)
[2023-07-06 12:23] LABS: BLOOD UREA NITROGEN 37.2 mg/dL (7-18)
[2023-07-06 12:26] LABS: CREATININE 3.9 mg/dL (0.55-1.3)
[2023-07-06 12:28] LABS: BILIRUBIN,TOTAL 0.7 mg/dL (0.2-1); TOT PROT 7.4 g/dl (6.4-8.2)
[2023-07-06] MEDS: MAG HYDROX/AL HYDROX/SIMETH 30 ML UNIT-DOSE CUP PO ONE (14:37)
[2023-07-06] MEDS: ONDANSETRON 4 MG/2 ML VIAL IVPUSH ONE (16:02)
[2023-07-06] MEDS: MAG HYDROX/AL HYDROX/SIMETH 30 ML UNIT-DOSE CUP PO PRN (17:11)
[2023-07-06] MEDS: DEXTROSE 50%-WATER - 25 GM/50 ML VIAL IVPUSH ONE (18:17)
[2023-07-06] MEDS: FAMOTIDINE 10 MG TABLET PO ONE (22:10)
[2023-07-07] MEDS: PANTOPRAZOLE 20 MG TABLET PO ONE (02:17)
[2023-07-07] MEDS: MELATONIN 5 MG TABLETS PO ONE (02:17)
[2023-07-07] MEDS ORDERED: SODIUM CHLORIDE 250 ML IV PRN (11:00)
[2023-07-07] MEDS: EPOETIN ALFA-EPBX 4,000 UNIT/ML VIAL IVPUSH ONE (11:06)
[2023-07-07 13:01] VITALS: PULSE 72
[2023-07-07 13:04] VITALS: BP 154/64
[2023-07-07] MEDS ORDERED: CALCIUM CARBONATE SUSPENSION - 1250 MG/5 ML ML PO SCH (13:15)
[2023-07-07] MEDS: CALCIUM CARBONATE SUSPENSION - 1250 MG/5 ML ML PO SCH (13:38)
[2023-07-07] MEDS: BISMUTH SUBSALICYLATE 262 MG/15 ML BTL PO ONE (13:38)
== END 2023-07-07 15:23 | disposition home or self-care (01) ==
LOC: JER 16:06 → JERBED 07-04 02:16 → INTOOBSV 07-04 02:16 → J6S 07-04 06:50
PROVIDERS: ADMIT Internal Medicine; ATTEND Internal Medicine
PROC: 3E033GC Introduction of Other Therapeutic Substance into Peripheral Vein, Percutaneous Approach (ICD-10-PCS; principal; 2023-07-04)
PROC: 3E013VG Introduction of Insulin into Subcutaneous Tissue, Percutaneous Approach (ICD-10-PCS; 2023-07-04)
PROC: 3E033NZ Introduction of Analgesics, Hypnotics, Sedatives into Peripheral Vein, Percutaneous Approach (ICD-10-PCS; 2023-07-04)
PROC: 3E0337Z Introduction of Electrolytic and Water Balance Substance into Peripheral Vein, Percutaneous Approach (ICD-10-PCS; 2023-07-04)
DX: R06.00 Dyspnea, unspecified (principal); W18.09XA Striking against other object with subsequent fall, initial encounter; Y93.89 Activity, other specified; E11.22 Type 2 diabetes mellitus with diabetic chronic kidney disease; E11.649 Type 2 diabetes mellitus with hypoglycemia without coma; I12.0 Hypertensive chronic kidney disease with stage 5 chronic kidney disease or end stage renal disease; N18.6 End stage renal disease; Z99.2 Dependence on renal dialysis; I25.2 Old myocardial infarction; Y92.009 Unspecified place in unspecified non-institutional (private) residence as the place of occurrence of the external cause; E11.43 Type 2 diabetes mellitus with diabetic autonomic (poly)neuropathy; I25.10 Atherosclerotic heart disease of native coronary artery without angina pectoris; F41.8 Other specified anxiety disorders; K29.70 Gastritis, unspecified, without bleeding; K21.9 Gastro-esophageal reflux disease without esophagitis; J44.9 Chronic obstructive pulmonary disease, unspecified; Z88.8 Allergy status to other drugs, medicaments and biological substances; D64.9 Anemia, unspecified; Z91.041 Radiographic dye allergy status; K31.84 Gastroparesis
CPT/HCPCS: 0241U-QW; 36415; 71275-TC; 72170-TC-FY; 73521-TC-FY; 73552-TC-LT-FY; 73590-TC-LT-FY; 73610-TC-LT-FY; 73630-TC-LT; 73700-TC-RT; 80053; 82728; 82962; 83540; 83550; 83735; 83880; 84100; 84466; 84484; 85025; 85379; 85610; 85730; 86850; 86900; 86901; 93005; 93010; 93971-TC; 96365; 96372; 96375; 96376; 97116-GP; 97162-GP; 99285-25; G0378; J0131; J1100; J1756; Q5106; Q9967

== ENCOUNTER 2023-07-28 15:15 | Inpatient (IN) | payer OTHER ==
[2023-07-28 18:16] LABS: BASO % 3.3 % (0-2.0); HEMATOCRIT 27.6 % (32.4-45.2); HEMOGLOBIN 9.4 GM/dL (10.7-15.3); LYMPH % 15.2 % (8-40); MCH 32.6 pg (25.7-33.7); MCHC 33.9 g/dl (32.0-36.0); MEAN CELL VOLUME 96.2 fl (80-96); MEAN PLT VOLUME 8.5 fl (7.5-11.1); MONO % 14.8 % (3.8-10.2); NEUT % 64.7 % (42.8-82.8); PLATELET COUNT 338 10^3/uL (134-434); RBC 2.87 M/mm3 (3.60-5.2); RDW 17.6 % (11.6-15.6); WHITE BLOOD COUNT 4.6 K/mm3 (4.0-10.0)
[2023-07-28 18:23] LABS: INR 1.17 (0.83-1.09); PROTHROMBIN TIME (PATIENT) 13.5 SEC (9.7-13.0)
[2023-07-28 18:26] LABS: ACTIVATED PTT 30.6 SECONDS (25.2-36.5)
[2023-07-28 18:35] LABS: POTASSIUM 3.9 mmol/L (3.5-5.1)
[2023-07-28 18:37] LABS: ALBUMIN 3.2 g/dl (3.4-5.0); BLOOD UREA NITROGEN 13.2 mg/dL (7-18); CALCIUM 9.2 mg/dL (8.5-10.1)
[2023-07-28 18:40] LABS: CREATININE 3.2 mg/dL (0.55-1.3)
[2023-07-28 18:42] LABS: BILIRUBIN,TOTAL 0.6 mg/dL (0.2-1); TOT PROT 7.6 g/dl (6.4-8.2)
[2023-07-28] MEDS ORDERED: VANCOMYCIN 1 GRAM (PRE-DOCKED) 1,000 MG/250 ML BAG IVPB ONE (19:26)
[2023-07-28] MEDS ORDERED: PIPERACILLIN/TAZOB 4.5 GM 4.5 GM/100 ML BAG IVPB ONE (19:26)
[2023-07-28] MEDS ORDERED: HYDROmorphone HCl 2 MG/ML VIAL ONE (20:01)
[2023-07-28] MEDS: HYDROmorphone HCl 2 MG/ML VIAL IVPUSH ONE (20:05)
[2023-07-28] MEDS: PIPERACILLIN/TAZOBACTAM 4.5 GM VIAL IVPB ONE (21:44)
[2023-07-28] MEDS: VANCOMYCIN 1,000 MG in DEXTROSE 5%-WATER - 250 ML IVPB ONE (22:40)
[2023-07-28] MEDS ORDERED: SODIUM BICARBONATE 8.4% 50 MEQ/50 ML DISP.SYRIN ONE (22:41)
[2023-07-28] MEDS ORDERED: VANCOMYCIN 1,000 MG in DEXTROSE 5%-WATER - 250 ML IVPB SCH (23:00)
[2023-07-29] MEDS: LABETALOL HCL 200 MG TABLET (FP) PO SCH (01:20)
[2023-07-29] MEDS: ACETAMINOPHEN 500 MG TABLET (FP) PO PRN (01:20)
[2023-07-29] MEDS ORDERED: PIPERACILLIN/TAZOB 2.25 GM 2.25 GM in DEXTROSE 5%-WATER - 50 ML IVPB SCH (05:00)
[2023-07-29] MEDS: HEPARIN NA (PORCINE) 5,000 UNITS/ML 1ML VIAL SQ SCH (06:14)
[2023-07-29] MEDS: INSULIN ASPART SLIDING SCALE (NOVOLOG) 1 VIAL SQ SCH (06:16)
[2023-07-29 09:14] LABS: RETICULOCYTES 1.58 % (0.5-1.5)
[2023-07-29] MEDS: ASPIRIN COATED 81 MG TABLET.EC PO SCH (09:40)
[2023-07-29] MEDS: cloNIDine HCL 0.1 MG TABLET PO SCH (09:40)
[2023-07-29] MEDS: CLOPIDOGREL BISULFATE 75 MG TABLET (FP) PO SCH (09:40)
[2023-07-29] MEDS: busPIRone HCL 10 MG TABLET (FP) PO SCH (09:41)
[2023-07-29] MEDS: DULoxetine HCL 30 MG CAPSULE.DR PO SCH (09:41)
[2023-07-29] MEDS: PANTOPRAZOLE 40 MG TABLET PO SCH (09:41)
[2023-07-29] MEDS: LOSARTAN POTASSIUM 50 MG TABLET PO SCH (09:41)
[2023-07-29] MEDS: ISOSORBIDE MONONITRATE 60 MG TAB.SR.24H (FP) PO SCH (09:41)
[2023-07-29] MEDS: NIFEdipine E.R 60 MG TABLET PO SCH (09:41)
[2023-07-29] MEDS: LIDOCAINE 4% PATCH TP SCH (09:42)
[2023-07-29] MEDS ORDERED: FAMOTIDINE 20 MG TABLET PO SCH (10:00)
[2023-07-29] MEDS: BUDESONIDE/FORMETEROL FUMARATE 80/4.5 mcg INHALER IH SCH (10:06)
[2023-07-29] MEDS: ACETAMINOPHEN 1000 MG/100 ML BAG IVPB ONE (12:07)
[2023-07-29] MEDS ORDERED: SODIUM CHLORIDE 250 ML IV PRN (14:50)
[2023-07-29] MEDS: PIPERACILLIN/TAZOB 2.25 GM 2.25 GM in DEXTROSE 5%-WATER - 50 ML IVPB SCH (18:36)
[2023-07-29 21:02] VITALS: BMI 31.0
[2023-07-29] MEDS: ATORVASTATIN CA 40 MG TABLET (FP) PO SCH (21:20)
[2023-07-29] MEDS: LIDOCAINE PATCH REMOVAL MC SCH (21:21)
[2023-07-29] MEDS ORDERED: VANCOMYCIN/WATER FOR INJ (PEG) 1,000 MG/200 ML BAG IVPB SCH (23:00)
[2023-07-30] MEDS: PIPERACILLIN/TAZOB 2.25 GM 2.25 GM in DEXTROSE 5%-WATER - 50 ML IVPB SCH ×3 (01:31→09:23)
[2023-07-30 09:04] LABS: BASO % 1.1 % (0-2.0); EOS % 2.2 % (0-4.5); HEMATOCRIT 27.6 % (32.4-45.2); HEMOGLOBIN 8.8 GM/dL (10.7-15.3); LYMPH % 14.9 % (8-40); MCH 31.4 pg (25.7-33.7); MCHC 31.9 g/dl (32.0-36.0); MEAN CELL VOLUME 98.4 fl (80-96); MEAN PLT VOLUME 8.6 fl (7.5-11.1); NEUT % 69.8 % (42.8-82.8); PLATELET COUNT 312 10^3/uL (134-434); RDW 18.1 % (11.6-15.6); WHITE BLOOD COUNT 4.9 K/mm3 (4.0-10.0)
[2023-07-30 09:17] LABS: POTASSIUM 4.7 mmol/L (3.5-5.1)
[2023-07-30 09:29] LABS: CALCIUM 9.6 mg/dL (8.5-10.1)
[2023-07-30 09:30] LABS: ALBUMIN 3.1 g/dl (3.4-5.0); BLOOD UREA NITROGEN 19.9 mg/dL (7-18)
[2023-07-30 09:33] LABS: CREATININE 4.3 mg/dL (0.55-1.3)
[2023-07-30 09:35] LABS: BILIRUBIN,TOTAL 0.6 mg/dL (0.2-1); TOT PROT 7.3 g/dl (6.4-8.2)
[2023-07-30] MEDS ORDERED: INSULIN ASPART SLIDING SCALE (NOVOLOG) 1 VIAL SQ ONE (10:11)
[2023-07-30] MEDS: BISACODYL 5 MG TABLET.DR (FP) PO ONE (16:00)
[2023-07-30] MEDS ORDERED: VANCOMYCIN/WATER FOR INJ (PEG) 1,000 MG/200 ML BAG IVPB SCH (23:00)
[2023-07-31 09:17] LABS: BASO % 1.2 % (0-2.0); EOS % 2.4 % (0-4.5); HEMOGLOBIN 9.5 GM/dL (10.7-15.3); LYMPH % 12.9 % (8-40); MCH 31.9 pg (25.7-33.7); MCHC 32.9 g/dl (32.0-36.0); MEAN CELL VOLUME 96.8 fl (80-96); MEAN PLT VOLUME 8.7 fl (7.5-11.1); MONO % 11.1 % (3.8-10.2); NEUT % 72.4 % (42.8-82.8); PLATELET COUNT 295 10^3/uL (134-434); RBC 2.99 M/mm3 (3.60-5.2); RDW 18.1 % (11.6-15.6); WHITE BLOOD COUNT 5.1 K/mm3 (4.0-10.0)
[2023-07-31 09:18] LABS: POTASSIUM 5.2 mmol/L (3.5-5.1)
[2023-07-31 09:20] LABS: ALBUMIN 3.1 g/dl (3.4-5.0); CALCIUM 9.2 mg/dL (8.5-10.1)
[2023-07-31 09:21] LABS: BLOOD UREA NITROGEN 33.9 mg/dL (7-18)
[2023-07-31 09:24] LABS: CREATININE 5.4 mg/dL (0.55-1.3)
[2023-07-31 09:25] LABS: BILIRUBIN,TOTAL 0.7 mg/dL (0.2-1); TOT PROT 7.7 g/dl (6.4-8.2)
[2023-07-31] MEDS ORDERED: SODIUM CHLORIDE 250 ML IV PRN (10:10)
[2023-07-31 13:29] LABS: BF WBC & OTHER NUCLEATED CELLS 627 /mm3
[2023-07-31 14:18] LABS: BODY FLUID MACROPHAGES 83 %; BODY FLUID MESOTHELIAL 7 %
[2023-07-31] MEDS: EPOETIN ALFA-EPBX 3,000 UNIT/ML VIAL IVPUSH ONE (14:39)
[2023-08-01 10:13] LABS: HEMOGLOBIN 9.4 GM/dL (10.7-15.3); MCH 31.6 pg (25.7-33.7); MCHC 32.3 g/dl (32.0-36.0); MEAN CELL VOLUME 97.9 fl (80-96); MEAN PLT VOLUME 8.8 fl (7.5-11.1); PLATELET COUNT 290 10^3/uL (134-434); RBC 2.96 M/mm3 (3.60-5.2); RDW 17.5 % (11.6-15.6); WHITE BLOOD COUNT 5.2 K/mm3 (4.0-10.0)
[2023-08-01 10:28] LABS: POTASSIUM 4.2 mmol/L (3.5-5.1)
[2023-08-01 10:36] LABS: CALCIUM 9.4 mg/dL (8.5-10.1)
[2023-08-01 10:39] LABS: CREATININE 4.4 mg/dL (0.55-1.3)
[2023-08-01 10:40] LABS: BILIRUBIN,TOTAL 0.7 mg/dL (0.2-1); TOT PROT 7.1 g/dl (6.4-8.2)
[2023-08-01] MEDS: BISACODYL 5 MG TABLET.DR (FP) PO ONE (15:26)
[2023-08-01 16:08] LABS: BODY FLUID ALBUMIN 2.8 g/dL (Not Estab.)
[2023-08-01 20:39] LABS: HEMATOCRIT 26.9 % (32.4-45.2); HEMOGLOBIN 8.8 GM/dL (10.7-15.3); MCH 31.8 pg (25.7-33.7); MCHC 32.7 g/dl (32.0-36.0); MEAN CELL VOLUME 97.5 fl (80-96); MEAN PLT VOLUME 8.8 fl (7.5-11.1); PLATELET COUNT 260 10^3/uL (134-434); RBC 2.76 M/mm3 (3.60-5.2); RDW 17.6 % (11.6-15.6); WHITE BLOOD COUNT 4.2 K/mm3 (4.0-10.0)
[2023-08-02] MEDS ORDERED: SODIUM CHLORIDE 250 ML IV PRN (08:43)
[2023-08-02 10:12] LABS: HEMATOCRIT 27.2 % (32.4-45.2); HEMOGLOBIN 8.9 GM/dL (10.7-15.3); MCH 31.6 pg (25.7-33.7); MCHC 32.6 g/dl (32.0-36.0); MEAN CELL VOLUME 96.9 fl (80-96); MEAN PLT VOLUME 8.5 fl (7.5-11.1); PLATELET COUNT 265 10^3/uL (134-434); RDW 17.1 % (11.6-15.6); WHITE BLOOD COUNT 4.7 K/mm3 (4.0-10.0)
[2023-08-02 10:34] LABS: POTASSIUM 4.8 mmol/L (3.5-5.1)
[2023-08-02 10:52] LABS: CALCIUM 9.2 mg/dL (8.5-10.1)
[2023-08-02 10:53] LABS: ALBUMIN 2.8 g/dl (3.4-5.0); BLOOD UREA NITROGEN 38.9 mg/dL (7-18)
[2023-08-02 10:56] LABS: CREATININE 5.5 mg/dL (0.55-1.3)
[2023-08-02 10:57] LABS: BILIRUBIN,TOTAL 0.7 mg/dL (0.2-1)
[2023-08-02] MEDS: EPOETIN ALFA-EPBX 4,000 UNIT/ML VIAL SQ ONE (10:58)
[2023-08-03 05:02] VITALS: RESP 18; TEMP 97.8
[2023-08-03 08:23] LABS: POTASSIUM 4.5 mmol/L (3.5-5.1)
[2023-08-03 08:24] LABS: CALCIUM 9.1 mg/dL (8.5-10.1)
[2023-08-03 08:25] LABS: ALBUMIN 2.8 g/dl (3.4-5.0); BLOOD UREA NITROGEN 24.6 mg/dL (7-18)
[2023-08-03 08:28] LABS: CREATININE 3.8 mg/dL (0.55-1.3)
[2023-08-03 08:30] LABS: BILIRUBIN,TOTAL 0.6 mg/dL (0.2-1); TOT PROT 6.8 g/dl (6.4-8.2)
[2023-08-03 08:36] LABS: HEMATOCRIT 27.7 % (32.4-45.2); HEMOGLOBIN 9.2 GM/dL (10.7-15.3); MCH 31.7 pg (25.7-33.7); MCHC 33.1 g/dl (32.0-36.0); MEAN CELL VOLUME 95.8 fl (80-96); MEAN PLT VOLUME 8.5 fl (7.5-11.1); PLATELET COUNT 252 10^3/uL (134-434); RBC 2.89 M/mm3 (3.60-5.2); RDW 16.4 % (11.6-15.6); WHITE BLOOD COUNT 4.4 K/mm3 (4.0-10.0)
[2023-08-03 09:07] VITALS: BP 144/79; PULSE 63
[2023-08-03] MEDS ORDERED: PIPERACILLIN/TAZOB 2.25 GM 2.25 GM in DEXTROSE 5%-WATER - 50 ML IVPB SCH (10:00)
== END 2023-08-03 12:20 | disposition home or self-care (01) | DRG 602 ==
LOC: JER 15:15 → JERBED 18:39 → J6S 22:11
PROVIDERS: ADMIT Internal Medicine; ATTEND Internal Medicine
PROC: 0W9G3ZZ Drainage of Peritoneal Cavity, Percutaneous Approach (ICD-10-PCS; principal; 2023-07-31)
PROC: 5A1D70Z Performance of Urinary Filtration, Intermittent, Less than 6 Hours Per Day (ICD-10-PCS; 2023-07-31)
PROC: 5A1D70Z Performance of Urinary Filtration, Intermittent, Less than 6 Hours Per Day (ICD-10-PCS; 2023-07-31)
PROC: 5A1D70Z Performance of Urinary Filtration, Intermittent, Less than 6 Hours Per Day (ICD-10-PCS; 2023-07-31)
DX: L03.116 Cellulitis of left lower limb (principal); N18.6 End stage renal disease; R18.8 Other ascites; L02.31 Cutaneous abscess of buttock; I13.2 Hypertensive heart and chronic kidney disease with heart failure and with stage 5 chronic kidney disease, or end stage renal disease; I50.32 Chronic diastolic (congestive) heart failure; L97.528 Non-pressure chronic ulcer of other part of left foot with other specified severity; I24.89 Other forms of acute ischemic heart disease; I89.0 Lymphedema, not elsewhere classified; E11.22 Type 2 diabetes mellitus with diabetic chronic kidney disease; Z99.2 Dependence on renal dialysis; E11.621 Type 2 diabetes mellitus with foot ulcer; E78.00 Pure hypercholesterolemia, unspecified; K59.00 Constipation, unspecified; I25.10 Atherosclerotic heart disease of native coronary artery without angina pectoris; E11.51 Type 2 diabetes mellitus with diabetic peripheral angiopathy without gangrene; E04.1 Nontoxic single thyroid nodule; D64.9 Anemia, unspecified; I25.2 Old myocardial infarction; K21.9 Gastro-esophageal reflux disease without esophagitis; F41.8 Other specified anxiety disorders; E11.40 Type 2 diabetes mellitus with diabetic neuropathy, unspecified; E11.43 Type 2 diabetes mellitus with diabetic autonomic (poly)neuropathy; E11.319 Type 2 diabetes mellitus with unspecified diabetic retinopathy without macular edema; K31.84 Gastroparesis; Z89.422 Acquired absence of other left toe(s)
CPT/HCPCS: 36415; 73610-TC-LT-FY; 73630-TC-LT; 75635-TC; 76882-TC-RT-FY; 76942-TC; 80053; 82042; 82150; 82465; 82550; 82553; 82728; 82945; 82962; 83540; 83550; 83615; 83986; 84157; 84466; 84478; 85025; 85027; 85045; 85610; 85730; 86140; 86850; 86900; 86901; 87040; 87070; 87075; 87102; 87116; 87205; 87206; 87210; 87340; 88108; 88305-TC; 93005; 93010; 93970-TC; 99285-25; J0131; J1644; Q5106; Q9967

== ENCOUNTER 2023-08-25 11:23 | Inpatient (IN) | payer OTHER ==
[2023-08-25 13:23] LABS: INR 1.11 (0.83-1.09); PROTHROMBIN TIME (PATIENT) 12.5 SEC (9.7-13.0)
[2023-08-25 13:25] LABS: ACTIVATED PTT 32.2 SECONDS (25.2-36.5)
[2023-08-25 13:44] LABS: CHLORIDE 96 mmol/L (98-107); POTASSIUM 5.8 mmol/L (3.5-5.1); SODIUM 133 mmol/L (136-145)
[2023-08-25 13:46] LABS: ALBUMIN 3.3 g/dl (3.4-5.0); ANION GAP 8 mmol/L (4-13); BLOOD UREA NITROGEN 41.2 mg/dL (7-18); CALCIUM 9.7 mg/dL (8.5-10.1); CO2 30 mmol/L (21-32); GLUCOSE,RANDOM 201 mg/dL (74-106)
[2023-08-25 13:49] LABS: CREATININE 5.1 mg/dL (0.55-1.3); SGPT/ALT 39 U/L (13-61)
[2023-08-25 13:50] LABS: BASO % 1.1 % (0-2.0); EOS % 1.7 % (0-4.5); HEMATOCRIT 30.5 % (32.4-45.2); HEMOGLOBIN 10.1 GM/dL (10.7-15.3); LYMPH % 12.6 % (8-40); MCH 31.4 pg (25.7-33.7); MCHC 33.1 g/dl (32.0-36.0); MEAN CELL VOLUME 94.7 fl (80-96); MEAN PLT VOLUME 9.2 fl (7.5-11.1); MONO % 13.2 % (3.8-10.2); NEUT % 71.4 % (42.8-82.8); PLATELET COUNT 231 10^3/uL (134-434); RBC 3.22 M/mm3 (3.60-5.2); RDW 15.8 % (11.6-15.6)
[2023-08-25 13:50] LABS: SGOT/AST 52 U/L (15-37)
[2023-08-25 13:51] LABS: BILIRUBIN,TOTAL 0.6 mg/dL (0.2-1)
[2023-08-25 13:52] LABS: ALK PHOS 581 U/L (45-117)
[2023-08-25 14:11] LABS: N-TERMINAL BNP > 35000.0 pg/ml (5-125)
[2023-08-25] MEDS: CEFTRIAXONE 2 GM-D5W BAG 2 GM/50 ML BAG IVPB ONE (16:25)
[2023-08-25 17:39] LABS: BF WBC & OTHER NUCLEATED CELLS 897 /mm3; BODY FLUID MACROPHAGES 14 %; BODY FLUID MESOTHELIAL 34 %; BODY FLUID MONOCYTE 17 %
[2023-08-25] MEDS ORDERED: ASPIRIN COATED 81 MG TABLET.EC ONE (19:25)
[2023-08-25] MEDS ORDERED: SODIUM ZIRCONIUM CYCLOSILICATE (LOKELMA) 10 GM PACKET ONE (19:25)
[2023-08-25] MEDS: SODIUM ZIRCONIUM CYCLOSILICATE (LOKELMA) 5 GM PACKET PO ONE (19:30)
[2023-08-25] MEDS: ASPIRIN COATED 81 MG TABLET.EC PO SCH (19:30)
[2023-08-25 20:14] VITALS: BMI 31.4
[2023-08-25] MEDS: INSULIN ASPART SLIDING SCALE (NOVOLOG) 1 VIAL SQ SCH (21:12)
[2023-08-25] MEDS: busPIRone HCL 10 MG TABLET (FP) PO SCH (21:13)
[2023-08-25] MEDS: HEPARIN NA (PORCINE) 5,000 UNITS/ML 1ML VIAL SQ SCH (21:13)
[2023-08-25] MEDS: ATORVASTATIN CA 40 MG TABLET (FP) PO SCH (21:13)
[2023-08-25] MEDS: LABETALOL HCL 200 MG TABLET (FP) PO SCH (21:13)
[2023-08-25] MEDS: DULoxetine HCL 30 MG CAPSULE.DR PO SCH (21:13)
[2023-08-25] MEDS: NIFEdipine E.R 60 MG TABLET PO SCH (21:13)
[2023-08-26 07:10] LABS: BASO % 1.4 % (0-2.0); EOS % 2.6 % (0-4.5); HEMATOCRIT 29.8 % (32.4-45.2); HEMOGLOBIN 9.9 GM/dL (10.7-15.3); MCH 31.4 pg (25.7-33.7); MCHC 33.2 g/dl (32.0-36.0); MEAN CELL VOLUME 94.5 fl (80-96); MEAN PLT VOLUME 8.9 fl (7.5-11.1); MONO % 10.6 % (3.8-10.2); NEUT % 72.4 % (42.8-82.8); PLATELET COUNT 225 10^3/uL (134-434); RBC 3.15 M/mm3 (3.60-5.2); RDW 15.7 % (11.6-15.6); WHITE BLOOD COUNT 5.7 K/mm3 (4.0-10.0)
[2023-08-26 07:27] LABS: POTASSIUM 5.2 mmol/L (3.5-5.1)
[2023-08-26 07:31] LABS: BLOOD UREA NITROGEN 48.3 mg/dL (7-18); MAGNESIUM 2.3 mg/dL (1.8-2.4)
[2023-08-26 07:34] LABS: PHOSPHOROUS 5.8 mg/dL (2.5-4.9)
[2023-08-26 07:35] LABS: BILIRUBIN,TOTAL 0.7 mg/dL (0.2-1); TOT PROT 7.3 g/dl (6.4-8.2)
[2023-08-26] MEDS: ACETAMINOPHEN 325 MG TABLET (FP) PO ONE (08:02)
[2023-08-26] MEDS ORDERED: SODIUM CHLORIDE 250 ML IV PRN (09:03)
[2023-08-26] MEDS: EPOETIN ALFA-EPBX 3,000 UNIT/ML VIAL IVPUSH ONE (10:37)
[2023-08-26] MEDS: SODIUM ZIRCONIUM CYCLOSILICATE (LOKELMA) 5 GM PACKET PO SCH (14:19)
[2023-08-26] MEDS: CLOPIDOGREL BISULFATE 75 MG TABLET (FP) PO SCH (14:20)
[2023-08-26] MEDS: SEVELAMER CARBONATE 800 MG TAB (FP) PO SCH (14:21)
[2023-08-26] MEDS: LOSARTAN POTASSIUM 50 MG TABLET PO SCH (14:21)
[2023-08-26] MEDS: ISOSORBIDE MONONITRATE 60 MG TAB.SR.24H (FP) PO SCH (14:21)
[2023-08-26] MEDS: PANTOPRAZOLE 40 MG TABLET PO SCH (14:21)
[2023-08-26] MEDS ORDERED: CEFTRIAXONE 2 GM in DEXTROSE 5%-WATER - 50 ML IVPB SCH (14:26)
[2023-08-26] MEDS: CEFTRIAXONE 2,000 MG in DEXTROSE 5%-WATER - 50 ML IVPB SCH (14:35)
[2023-08-26] MEDS: CEFTRIAXONE 2 GM in DEXTROSE 5%-WATER - 50 ML IVPB SCH (14:35)
[2023-08-26] MEDS: VANCOMYCIN/WATER FOR INJ (PEG) 1,000 MG/200 ML BAG IVPB ONE (21:50)
[2023-08-27] MEDS: ACETAMINOPHEN 325 MG TABLET (FP) PO PRN ×2 (05:08→19:35)
[2023-08-27 07:53] LABS: BASO % 1.8 % (0-2.0); EOS % 3.2 % (0-4.5); HEMATOCRIT 30.5 % (32.4-45.2); LYMPH % 18.3 % (8-40); MCH 31.5 pg (25.7-33.7); MCHC 32.9 g/dl (32.0-36.0); MEAN CELL VOLUME 95.7 fl (80-96); MEAN PLT VOLUME 8.6 fl (7.5-11.1); MONO % 10.8 % (3.8-10.2); NEUT % 65.9 % (42.8-82.8); PLATELET COUNT 207 10^3/uL (134-434); RBC 3.19 M/mm3 (3.60-5.2); RDW 16.1 % (11.6-15.6); WHITE BLOOD COUNT 4.5 K/mm3 (4.0-10.0)
[2023-08-27 08:04] LABS: POTASSIUM 4.9 mmol/L (3.5-5.1)
[2023-08-27 08:07] LABS: BLOOD UREA NITROGEN 27.8 mg/dL (7-18); CALCIUM 9.2 mg/dL (8.5-10.1)
[2023-08-27 08:10] LABS: CREATININE 4.3 mg/dL (0.55-1.3)
[2023-08-27 08:12] LABS: BILIRUBIN,TOTAL 0.6 mg/dL (0.2-1); TOT PROT 7.2 g/dl (6.4-8.2)
[2023-08-27] MEDS: PANTOPRAZOLE SODIUM 40 MG VIAL IVPUSH ONE (08:15)
[2023-08-27] MEDS: MAG HYDROX/AL HYDROX/SIMETH 30 ML UNIT-DOSE CUP PO PRN ×2 (09:50→19:35)
[2023-08-27] MEDS ORDERED: SODIUM CHLORIDE 250 ML IV PRN ×2 (11:04→18:24)
[2023-08-27] MEDS: ONDANSETRON 4 MG/2 ML VIAL IVPUSH PRN (11:26)
[2023-08-27] MEDS: METOCLOPRAMIDE HCL INJECTION 10 MG/2 ML VIAL IVPUSH ONE (14:55)
[2023-08-27] MEDS: busPIRone HCL 10 MG TABLET (FP) PO SCH (21:12)
[2023-08-27] MEDS: DULoxetine HCL 30 MG CAPSULE.DR PO SCH (21:12)
[2023-08-27] MEDS: NIFEdipine E.R 60 MG TABLET PO SCH (21:13)
[2023-08-27] MEDS: HEPARIN NA (PORCINE) 5,000 UNITS/ML 1ML VIAL SQ SCH (21:13)
[2023-08-27] MEDS: LABETALOL HCL 200 MG TABLET (FP) PO SCH (21:13)
[2023-08-27] MEDS: ATORVASTATIN CA 40 MG TABLET (FP) PO SCH (21:13)
[2023-08-27] MEDS: INSULIN ASPART SLIDING SCALE (NOVOLOG) 1 VIAL SQ SCH (21:59)
[2023-08-27] MEDS: SIMETHICONE 80 MG TAB.CHEW (FP) PO PRN (23:03)
[2023-08-28] MEDS: ONDANSETRON 4 MG/2 ML VIAL IVPUSH PRN (00:04)
[2023-08-28] MEDS ORDERED: CEFTRIAXONE 2 GM in DEXTROSE 5%-WATER - 50 ML IVPB SCH (10:00)
[2023-08-28 10:09] LABS: POTASSIUM 5.7 mmol/L (3.5-5.1)
[2023-08-28 10:11] LABS: ALBUMIN 2.9 g/dl (3.4-5.0); BLOOD UREA NITROGEN 38.9 mg/dL (7-18); CALCIUM 9.5 mg/dL (8.5-10.1)
[2023-08-28 10:14] LABS: CREATININE 5.1 mg/dL (0.55-1.3)
[2023-08-28 10:16] LABS: BILIRUBIN,TOTAL 0.7 mg/dL (0.2-1); TOT PROT 6.9 g/dl (6.4-8.2)
[2023-08-28] MEDS ORDERED: SODIUM CHLORIDE 250 ML IV PRN (10:56)
[2023-08-28] MEDS ORDERED: EPOETIN ALFA-EPBX 3,000 UNIT/ML VIAL IVPUSH ONE (11:04)
[2023-08-28] MEDS: EPOETIN ALFA-EPBX 3,000 UNIT/ML VIAL IVPUSH ONE (11:57)
[2023-08-28] MEDS: SEVELAMER CARBONATE 800 MG TAB (FP) PO SCH (13:58)
[2023-08-28] MEDS: ASPIRIN COATED 81 MG TABLET.EC PO SCH (13:58)
[2023-08-28] MEDS: ISOSORBIDE MONONITRATE 60 MG TAB.SR.24H (FP) PO SCH (13:59)
[2023-08-28] MEDS: PANTOPRAZOLE 40 MG TABLET PO SCH (13:59)
[2023-08-28] MEDS: LOSARTAN POTASSIUM 50 MG TABLET PO SCH (14:00)
[2023-08-28] MEDS: CLOPIDOGREL BISULFATE 75 MG TABLET (FP) PO SCH (14:19)
[2023-08-28] MEDS: AMMONIUM LACTATE 12% LOTION 225 GM BOTTLE TP PRN (14:24)
[2023-08-29] MEDS: POLYETHYLENE GLYCOL (HEALTHYLAX) 3350 17 GM PACKET PO SCH (04:26)
[2023-08-29] MEDS: SENNOSIDES 8.8 MG/5 ML SYRUP PO SCH (04:26)
[2023-08-29] MEDS: SODIUM ZIRCONIUM CYCLOSILICATE (LOKELMA) 5 GM PACKET PO SCH (07:21)
[2023-08-29 09:19] LABS: HEMATOCRIT 31.3 % (32.4-45.2); HEMOGLOBIN 10.1 GM/dL (10.7-15.3); MCH 30.8 pg (25.7-33.7); MCHC 32.3 g/dl (32.0-36.0); MEAN CELL VOLUME 95.4 fl (80-96); MEAN PLT VOLUME 8.9 fl (7.5-11.1); PLATELET COUNT 228 10^3/uL (134-434); RBC 3.28 M/mm3 (3.60-5.2); RDW 15.8 % (11.6-15.6); WHITE BLOOD COUNT 4.6 K/mm3 (4.0-10.0)
[2023-08-29 09:51] LABS: POTASSIUM 4.6 mmol/L (3.5-5.1)
[2023-08-29 09:56] LABS: BLOOD UREA NITROGEN 23.1 mg/dL (7-18); CALCIUM 9.1 mg/dL (8.5-10.1)
[2023-08-29 10:00] LABS: CREATININE 3.8 mg/dL (0.55-1.3)
[2023-08-29] MEDS: ONDANSETRON 4 MG/2 ML VIAL IVPUSH ONE (11:57)
[2023-08-29 16:10] LABS: BODY FLUID ALBUMIN 3.1 g/dL (Not Estab.)
[2023-08-29 18:28] VITALS: RESP 18
[2023-08-30] MEDS ORDERED: SODIUM CHLORIDE 250 ML IV PRN (06:51)
[2023-08-30 09:28] VITALS: TEMP 97.9
[2023-08-30] MEDS: EPOETIN ALFA-EPBX 4,000 UNIT/ML VIAL IVPUSH ONE (11:23)
[2023-08-30 11:54] VITALS: BP 168/87; PULSE 65
== END 2023-08-30 13:48 | disposition home or self-care (01) | DRG 947 ==
LOC: JER 11:23 → JERBED 16:58 → J4W 19:57 → J5S 08-27 18:22
PROC: 0W9G3ZZ Drainage of Peritoneal Cavity, Percutaneous Approach (ICD-10-PCS; principal; 2023-08-25)
PROC: 5A1D70Z Performance of Urinary Filtration, Intermittent, Less than 6 Hours Per Day (ICD-10-PCS; 2023-08-26)
PROC: 5A1D70Z Performance of Urinary Filtration, Intermittent, Less than 6 Hours Per Day (ICD-10-PCS; 2023-08-28)
PROC: 5A1D70Z Performance of Urinary Filtration, Intermittent, Less than 6 Hours Per Day (ICD-10-PCS; 2023-08-29)
PROC: 5A1D70Z Performance of Urinary Filtration, Intermittent, Less than 6 Hours Per Day (ICD-10-PCS; 2023-08-30)
DX: R18.8 Other ascites (principal); N18.6 End stage renal disease; I13.2 Hypertensive heart and chronic kidney disease with heart failure and with stage 5 chronic kidney disease, or end stage renal disease; I50.32 Chronic diastolic (congestive) heart failure; E87.5 Hyperkalemia; I25.10 Atherosclerotic heart disease of native coronary artery without angina pectoris; J44.9 Chronic obstructive pulmonary disease, unspecified; I27.20 Pulmonary hypertension, unspecified; R59.9 Enlarged lymph nodes, unspecified; F41.8 Other specified anxiety disorders; E11.65 Type 2 diabetes mellitus with hyperglycemia; E11.42 Type 2 diabetes mellitus with diabetic polyneuropathy; E11.22 Type 2 diabetes mellitus with diabetic chronic kidney disease; E11.40 Type 2 diabetes mellitus with diabetic neuropathy, unspecified; K21.9 Gastro-esophageal reflux disease without esophagitis; E11.43 Type 2 diabetes mellitus with diabetic autonomic (poly)neuropathy; I27.22 Pulmonary hypertension due to left heart disease; R29.6 Repeated falls; I25.2 Old myocardial infarction; K31.84 Gastroparesis; L85.3 Xerosis cutis; F39 Unspecified mood [affective] disorder; Z99.2 Dependence on renal dialysis; Z95.5 Presence of coronary angioplasty implant and graft; Z89.429 Acquired absence of other toe(s), unspecified side
CPT/HCPCS: 36415; 76856-TC; 76942-TC; 80048; 80053; 82042; 82140; 82150; 82465; 82728; 82945; 82962; 82977; 83540; 83550; 83615; 83735; 83880; 83986; 84080; 84100; 84157; 84466; 84478; 84484; 85025; 85027; 85045; 85610; 85730; 86803; 86850; 86900; 86901; 87070; 87075; 87102; 87116; 87205; 87206; 87210; 87340; 88108; 88305-TC; 93005; 93010; 93971-TC; 99285-25; J1644; Q5106

== ENCOUNTER 2023-10-19 19:36 | Inpatient (IN) | payer OTHER ==
[2023-10-19] MEDS ORDERED: ACETAMINOPHEN INJECTION 100 ML IVPB ONE (21:19)
[2023-10-19] MEDS: ACETAMINOPHEN 1000 MG/100 ML BAG IVPB ONE (21:32)
[2023-10-19 21:40] LABS: BASO % 1.5 % (0-2.0); EOS % 1.9 % (0-4.5); HEMOGLOBIN 10.9 GM/dL (10.7-15.3); LYMPH % 17.2 % (8-40); MCH 31.9 pg (25.7-33.7); MCHC 33.9 g/dl (32.0-36.0); MONO % 11.8 % (3.8-10.2); NEUT % 67.6 % (42.8-82.8); PLATELET COUNT 180 10^3/uL (134-434); RBC 3.41 M/mm3 (3.60-5.2); RDW 15.7 % (11.6-15.6); WHITE BLOOD COUNT 5.8 K/mm3 (4.0-10.0)
[2023-10-19 23:49] LABS: POTASSIUM 4.8 mmol/L (3.5-5.1)
[2023-10-19 23:51] LABS: CALCIUM 9.6 mg/dL (8.5-10.1)
[2023-10-19 23:52] LABS: ALBUMIN 3.5 g/dl (3.4-5.0); BLOOD UREA NITROGEN 28.2 mg/dL (7-18)
[2023-10-19 23:55] LABS: CREATININE 4.5 mg/dL (0.55-1.3); PHOSPHOROUS 3.7 mg/dL (2.5-4.9)
[2023-10-19 23:56] LABS: BILIRUBIN,TOTAL 0.7 mg/dL (0.2-1); TOT PROT 8.3 g/dl (6.4-8.2)
[2023-10-20] MEDS ORDERED: morphine SULFATE 4 MG/ML VIAL ONE (03:17)
[2023-10-20] MEDS ORDERED: LABETALOL HCL 200 MG TABLET (FP) ONE (03:18)
[2023-10-20] MEDS: morphine CARPU-JECT 4 MG/1 ML DISP.SYRIN IVPUSH ONE (03:30)
[2023-10-20] MEDS: LABETALOL HCL 200 MG TABLET (FP) PO ONE (03:30)
[2023-10-20] MEDS ORDERED: AMMONIUM LACTATE 12% LOTION 225 GM BOTTLE TP PRN (03:44)
[2023-10-20] MEDS: NIFEdipine E.R 60 MG TABLET PO ONE (04:47)
[2023-10-20] MEDS: cloNIDine HCL 0.1 MG TABLET PO ONE (04:47)
[2023-10-20 06:09] VITALS: BMI 31.7
[2023-10-20] MEDS: INSULIN ASPART SLIDING SCALE (NOVOLOG) 1 VIAL SQ SCH (06:36)
[2023-10-20] MEDS: HEPARIN NA (PORCINE) 5,000 UNITS/ML 1ML VIAL SQ SCH (06:43)
[2023-10-20 09:57] LABS: INR 1.14 (0.83-1.09); PROTHROMBIN TIME (PATIENT) 12.8 SEC (9.7-13.0)
[2023-10-20] MEDS: cloNIDine HCL 0.1 MG TABLET PO SCH (09:57)
[2023-10-20] MEDS: LOSARTAN POTASSIUM 50 MG TABLET PO SCH (09:57)
[2023-10-20 09:58] LABS: HEMATOCRIT 31.3 % (32.4-45.2); HEMOGLOBIN 10.5 GM/dL (10.7-15.3); MCHC 33.7 g/dl (32.0-36.0); MEAN PLT VOLUME 8.9 fl (7.5-11.1); PLATELET COUNT 169 10^3/uL (134-434); RDW 15.4 % (11.6-15.6); WHITE BLOOD COUNT 4.6 K/mm3 (4.0-10.0)
[2023-10-20] MEDS: busPIRone HCL 10 MG TABLET (FP) PO SCH (09:58)
[2023-10-20] MEDS: ISOSORBIDE MONONITRATE 60 MG TAB.SR.24H (FP) PO SCH (09:58)
[2023-10-20] MEDS: PANTOPRAZOLE 40 MG TABLET PO SCH (09:59)
[2023-10-20] MEDS: BUDESONIDE/FORMOTEROL FUMARATE 80-4.5 MCG (10.3 GM INHALER) IH SCH (09:59)
[2023-10-20] MEDS: LABETALOL HCL 200 MG TABLET (FP) PO SCH (09:59)
[2023-10-20] MEDS: DULoxetine HCL 30 MG CAPSULE.DR PO SCH (09:59)
[2023-10-20] MEDS ORDERED: NIFEdipine E.R 60 MG TABLET PO SCH (10:00)
[2023-10-20 10:13] LABS: POTASSIUM 4.9 mmol/L (3.5-5.1)
[2023-10-20 10:25] LABS: ALBUMIN 3.4 g/dl (3.4-5.0); BLOOD UREA NITROGEN 34.4 mg/dL (7-18); CALCIUM 9.5 mg/dL (8.5-10.1); MAGNESIUM 2.4 mg/dL (1.8-2.4)
[2023-10-20 10:27] LABS: PHOSPHOROUS 4.6 mg/dL (2.5-4.9)
[2023-10-20 10:29] LABS: BILIRUBIN,TOTAL 0.7 mg/dL (0.2-1); TOT PROT 7.6 g/dl (6.4-8.2)
[2023-10-20] MEDS ORDERED: SODIUM CHLORIDE 250 ML IV PRN (13:42)
[2023-10-20] MEDS: FAMOTIDINE 10 MG TABLET PO SCH (14:38)
[2023-10-20] MEDS: ASPIRIN COATED 81 MG TABLET.EC PO SCH (14:39)
[2023-10-20] MEDS: CLOPIDOGREL BISULFATE 75 MG TABLET (FP) PO SCH (14:39)
[2023-10-20] MEDS: PATIENT'S OWN MEDICATION (NON-FORMULARY) (Famotidine 40 MG Tablet) PO SCH (15:02)
[2023-10-20] MEDS: POLYETHYLENE GLYCOL (HEALTHYLAX) 3350 17 GM PACKET PO PRN (17:32)
[2023-10-20] MEDS: ACETAMINOPHEN 325 MG TABLET (FP) PO PRN (19:08)
[2023-10-20] MEDS: ATORVASTATIN CA 40 MG TABLET (FP) PO SCH (22:44)
[2023-10-20] MEDS: NIFEdipine E.R 60 MG TABLET PO SCH (22:45)
[2023-10-21 07:21] VITALS: RESP 18
[2023-10-21 10:16] LABS: BASO % 1.5 % (0-2.0); EOS % 2.6 % (0-4.5); HEMATOCRIT 31.2 % (32.4-45.2); HEMOGLOBIN 10.4 GM/dL (10.7-15.3); LYMPH % 14.2 % (8-40); MCH 31.6 pg (25.7-33.7); MCHC 33.4 g/dl (32.0-36.0); MEAN CELL VOLUME 94.8 fl (80-96); MEAN PLT VOLUME 9.5 fl (7.5-11.1); MONO % 9.1 % (3.8-10.2); NEUT % 72.6 % (42.8-82.8); PLATELET COUNT 166 10^3/uL (134-434); RBC 3.29 M/mm3 (3.60-5.2); RDW 15.6 % (11.6-15.6); WHITE BLOOD COUNT 4.9 K/mm3 (4.0-10.0)
[2023-10-21 10:38] LABS: POTASSIUM 5.2 mmol/L (3.5-5.1)
[2023-10-21 10:48] LABS: CALCIUM 8.7 mg/dL (8.5-10.1)
[2023-10-21 10:49] LABS: ALBUMIN 2.9 g/dl (3.4-5.0); BLOOD UREA NITROGEN 47.4 mg/dL (7-18); MAGNESIUM 2.4 mg/dL (1.8-2.4)
[2023-10-21 10:52] LABS: CREATININE 5.9 mg/dL (0.55-1.3)
[2023-10-21 10:53] LABS: PHOSPHOROUS 5.4 mg/dL (2.5-4.9)
[2023-10-21 10:54] LABS: BILIRUBIN,TOTAL 0.7 mg/dL (0.2-1); TOT PROT 6.8 g/dl (6.4-8.2)
[2023-10-21 15:44] VITALS: TEMP 97.8
[2023-10-21 17:05] VITALS: BP 141/77; PULSE 66
== END 2023-10-21 18:21 | disposition home or self-care (01) | DRG 291 ==
LOC: JER 19:36 → JERBED 10-20 00:18 → J8W 10-20 04:04
PROVIDERS: ADMIT Internal Medicine; ATTEND Internal Medicine
PROC: 0W9G3ZZ Drainage of Peritoneal Cavity, Percutaneous Approach (ICD-10-PCS; principal; 2023-10-20)
PROC: 5A1D70Z Performance of Urinary Filtration, Intermittent, Less than 6 Hours Per Day (ICD-10-PCS; 2023-10-21)
DX: I13.2 Hypertensive heart and chronic kidney disease with heart failure and with stage 5 chronic kidney disease, or end stage renal disease (principal); N18.6 End stage renal disease; F33.9 Major depressive disorder, recurrent, unspecified; I16.1 Hypertensive emergency; J96.11 Chronic respiratory failure with hypoxia; R18.8 Other ascites; I24.89 Other forms of acute ischemic heart disease; I50.32 Chronic diastolic (congestive) heart failure; F25.9 Schizoaffective disorder, unspecified; J44.9 Chronic obstructive pulmonary disease, unspecified; Z99.2 Dependence on renal dialysis; E11.22 Type 2 diabetes mellitus with diabetic chronic kidney disease; E11.43 Type 2 diabetes mellitus with diabetic autonomic (poly)neuropathy; E11.42 Type 2 diabetes mellitus with diabetic polyneuropathy; D64.9 Anemia, unspecified; E78.5 Hyperlipidemia, unspecified; I25.10 Atherosclerotic heart disease of native coronary artery without angina pectoris; F17.210 Nicotine dependence, cigarettes, uncomplicated; E87.70 Fluid overload, unspecified; K59.00 Constipation, unspecified; K21.9 Gastro-esophageal reflux disease without esophagitis
CPT/HCPCS: 0241U-QW; 36415; 70450-TC; 71045-TC-FY; 72125-TC; 73070-TC-LT-FY; 73562-TC-LT-FY; 73610-TC-RT-FY; 73630-TC-RT-FY; 76942-TC; 80053; 82962; 83735; 83880; 84100; 84484; 85025; 85027; 85610; 87340; 93005; 93010; 99285-25; J0131; J1644

== ENCOUNTER → 2023-11-06 | Day surgery (SDC) | payer OTHER | END | disposition home or self-care (01) | LOC: JRADIR 11:14 | PROVIDERS: ATTEND Internal Medicine Hematology & Oncology | PROC: 07DJ3ZX Extraction of Left Inguinal Lymphatic, Percutaneous Approach, Diagnostic (ICD-10-PCS; principal; 2023-11-06) | DX: R59.0 Localized enlarged lymph nodes (principal); N18.6 End stage renal disease; Z99.2 Dependence on renal dialysis | CPT/HCPCS: 38505; 76942-TC; 76998-TC; 88305-TC; 88342-TC ==

== ENCOUNTER 2023-11-17 13:28 | Inpatient (IN) | payer OTHER ==
[2023-11-17 13:38] VITALS: BMI 33.5
[2023-11-17] MEDS ORDERED: ACETAMINOPHEN 325 MG TABLET (FP) ONE (14:42)
[2023-11-17] MEDS: ACETAMINOPHEN 325 MG TABLET (FP) PO ONE (15:00)
[2023-11-17 15:02] LABS: BASO % 1.2 % (0-2.0); EOS % 1.5 % (0-4.5); HEMATOCRIT 32.6 % (32.4-45.2); HEMOGLOBIN 11.4 GM/dL (10.7-15.3); LYMPH % 12.6 % (8-40); MCH 32.3 pg (25.7-33.7); MCHC 34.9 g/dl (32.0-36.0); MEAN CELL VOLUME 92.7 fl (80-96); MEAN PLT VOLUME 9.8 fl (7.5-11.1); MONO % 13.6 % (3.8-10.2); NEUT % 71.1 % (42.8-82.8); PLATELET COUNT 274 10^3/uL (134-434); RBC 3.51 M/mm3 (3.60-5.2); RDW 15.2 % (11.6-15.6); WHITE BLOOD COUNT 4.9 K/mm3 (4.0-10.0)
[2023-11-17] MEDS ORDERED: DULoxetine HCL 30 MG CAPSULE.DR PO ONE (15:03)
[2023-11-17] MEDS: DULoxetine HCL 30 MG CAPSULE.DR PO ONE (15:14)
[2023-11-17 15:20] LABS: POTASSIUM 5.1 mmol/L (3.5-5.1)
[2023-11-17 15:22] LABS: CALCIUM 9.1 mg/dL (8.5-10.1)
[2023-11-17 15:23] LABS: ALBUMIN 3.3 g/dl (3.4-5.0); BLOOD UREA NITROGEN 44.8 mg/dL (7-18)
[2023-11-17 15:26] LABS: CREATININE 5.1 mg/dL (0.55-1.3)
[2023-11-17 15:27] LABS: BILIRUBIN,TOTAL 0.8 mg/dL (0.2-1)
[2023-11-17 15:28] LABS: TOT PROT 7.9 g/dl (6.4-8.2)
[2023-11-17] MEDS ORDERED: SODIUM CHLORIDE 250 ML IV PRN (16:54)
[2023-11-17] MEDS ORDERED: AMMONIUM LACTATE 12% LOTION 225 GM BOTTLE TP PRN (21:11)
[2023-11-17] MEDS ORDERED: LIDOCAINE REMOVAL MC SCH (22:00)
[2023-11-17] MEDS: ACETAMINOPHEN 1000 MG/100 ML BAG IVPB ONE (22:41)
[2023-11-17] MEDS: LIDOCAINE PATCH REMOVAL MC SCH (22:52)
[2023-11-17] MEDS: INSULIN ASPART SLIDING SCALE (NOVOLOG) 1 VIAL SQ SCH (22:57)
[2023-11-17] MEDS: LIDOCAINE 4% PATCH TP SCH (23:01)
[2023-11-17] MEDS: FAMOTIDINE 10 MG TABLET PO SCH (23:01)
[2023-11-17] MEDS: ISOSORBIDE MONONITRATE 60 MG TAB.SR.24H (FP) PO SCH (23:02)
[2023-11-17] MEDS: ASPIRIN COATED 81 MG TABLET.EC PO SCH (23:02)
[2023-11-17] MEDS: busPIRone HCL 10 MG TABLET (FP) PO SCH (23:02)
[2023-11-17] MEDS: PANTOPRAZOLE 40 MG TABLET PO SCH (23:02)
[2023-11-17] MEDS: CLOPIDOGREL BISULFATE 75 MG TABLET (FP) PO SCH (23:02)
[2023-11-17] MEDS: LABETALOL HCL 200 MG TABLET (FP) PO SCH (23:03)
[2023-11-17] MEDS: cloNIDine HCL 0.1 MG TABLET PO SCH (23:03)
[2023-11-17] MEDS: DULoxetine HCL 30 MG CAPSULE.DR PO SCH (23:03)
[2023-11-17] MEDS: ATORVASTATIN CA 40 MG TABLET (FP) PO SCH (23:03)
[2023-11-17] MEDS: BUDESONIDE/FORMETEROL FUMARATE 80/4.5 mcg INHALER IH SCH (23:47)
[2023-11-18] MEDS: HEPARIN NA (PORCINE) 5,000 UNITS/ML 1ML VIAL SQ SCH (06:01)
[2023-11-18 09:15] LABS: POTASSIUM 4.1 mmol/L (3.5-5.1)
[2023-11-18 09:20] LABS: CALCIUM 8.7 mg/dL (8.5-10.1)
[2023-11-18 09:21] LABS: BLOOD UREA NITROGEN 33.1 mg/dL (7-18); MAGNESIUM 2.2 mg/dL (1.8-2.4)
[2023-11-18 09:23] LABS: CREATININE 4.3 mg/dL (0.55-1.3); HEMATOCRIT 28.7 % (32.4-45.2); HEMOGLOBIN 10.1 GM/dL (10.7-15.3); MCH 32.4 pg (25.7-33.7); MCHC 35.1 g/dl (32.0-36.0); MEAN CELL VOLUME 92.2 fl (80-96); MEAN PLT VOLUME 8.9 fl (7.5-11.1); PHOSPHOROUS 4.4 mg/dL (2.5-4.9); PLATELET COUNT 185 10^3/uL (134-434); RBC 3.12 M/mm3 (3.60-5.2); WHITE BLOOD COUNT 3.9 K/mm3 (4.0-10.0)
[2023-11-18] MEDS: NICOTINE 7 MG/24 HOURS TOPICAL PATCH TD SCH (10:10)
[2023-11-18] MEDS: ACETAMINOPHEN 1000 MG/100 ML BAG IVPB PRN (10:18)
[2023-11-18] MEDS: POLYETHYLENE GLYCOL (HEALTHYLAX) 3350 17 GM PACKET PO PRN (10:30)
[2023-11-18] MEDS ORDERED: SODIUM CHLORIDE 250 ML IV PRN (13:00)
[2023-11-18] MEDS: EPOETIN ALFA-EPBX 3,000 UNIT/ML VIAL IVPUSH ONE (14:05)
[2023-11-18] MEDS: ALBUTEROL SO4 2.5/IPRATROPIUM 0.5 INH SOL 3 ML VIAL.NEB. NEB PRN (17:17)
[2023-11-18] MEDS: NIFEdipine E.R 60 MG TABLET PO SCH (21:20)
[2023-11-19 10:09] LABS: INR 1.11 (0.83-1.09); PROTHROMBIN TIME (PATIENT) 12.7 SEC (9.7-13.0)
[2023-11-19 10:16] LABS: HEMOGLOBIN 11.1 GM/dL (10.7-15.3); MCH 32.1 pg (25.7-33.7); MCHC 34.6 g/dl (32.0-36.0); MEAN CELL VOLUME 92.8 fl (80-96); PLATELET COUNT 184 10^3/uL (134-434); RBC 3.44 M/mm3 (3.60-5.2); RDW 14.7 % (11.6-15.6); WHITE BLOOD COUNT 4.6 K/mm3 (4.0-10.0)
[2023-11-19 10:25] LABS: POTASSIUM 4.6 mmol/L (3.5-5.1)
[2023-11-19 10:33] LABS: ALBUMIN 3.4 g/dl (3.4-5.0); BLOOD UREA NITROGEN 30.6 mg/dL (7-18); CALCIUM 9.8 mg/dL (8.5-10.1)
[2023-11-19 10:34] LABS: MAGNESIUM 2.1 mg/dL (1.8-2.4); TOT PROT 7.9 g/dl (6.4-8.2)
[2023-11-19 10:35] LABS: BILIRUBIN,TOTAL 0.7 mg/dL (0.2-1); CREATININE 4.1 mg/dL (0.55-1.3); PHOSPHOROUS 4.3 mg/dL (2.5-4.9)
[2023-11-19] MEDS ORDERED: EPOETIN ALFA-EPBX 4,000 UNIT/ML VIAL SQ ONE (11:44)
[2023-11-19] MEDS: ALBUTEROL SO4 2.5/IPRATROPIUM 0.5 INH SOL 3 ML VIAL.NEB. NEB SCH (11:47)
[2023-11-19] MEDS ORDERED: BISACODYL 10 MG SUPP.RECT PR PRN (11:58)
[2023-11-19] MEDS ORDERED: BISACODYL 10 MG SUPP.RECT PR ONE (12:15)
[2023-11-19] MEDS: BISACODYL 5 MG TABLET.DR (FP) PO SCH (15:01)
[2023-11-19] MEDS: ACETAMINOPHEN 325 MG TABLET (FP) PO PRN (17:20)
[2023-11-20] MEDS ORDERED: SODIUM CHLORIDE 250 ML IV PRN (11:44)
[2023-11-20] MEDS: BISACODYL 5 MG TABLET.DR (FP) PO SCH ×2 (14:05→15:55)
[2023-11-20] MEDS: INSULIN ASPART SLIDING SCALE (NOVOLOG) 1 VIAL SQ SCH (17:40)
[2023-11-21 07:21] VITALS: RESP 18
[2023-11-21 09:27] LABS: HEMATOCRIT 30.4 % (32.4-45.2); HEMOGLOBIN 10.3 GM/dL (10.7-15.3); MCH 31.8 pg (25.7-33.7); MCHC 33.8 g/dl (32.0-36.0); MEAN CELL VOLUME 94.1 fl (80-96); MEAN PLT VOLUME 8.9 fl (7.5-11.1); PLATELET COUNT 181 10^3/uL (134-434); RBC 3.23 M/mm3 (3.60-5.2); RDW 15.1 % (11.6-15.6); WHITE BLOOD COUNT 5.7 K/mm3 (4.0-10.0)
[2023-11-21 09:45] LABS: POTASSIUM 4.6 mmol/L (3.5-5.1)
[2023-11-21 10:18] LABS: BLOOD UREA NITROGEN 35.4 mg/dL (7-18); CALCIUM 9.2 mg/dL (8.5-10.1)
[2023-11-21 10:19] LABS: MAGNESIUM 2.1 mg/dL (1.8-2.4)
[2023-11-21 10:21] LABS: CREATININE 4.1 mg/dL (0.55-1.3)
[2023-11-21] MEDS ORDERED: SODIUM CHLORIDE 250 ML IV PRN (12:53)
[2023-11-22] MEDS: MAG HYDROX/AL HYDROX/SIMETH 30 ML UNIT-DOSE CUP PO ONE (06:36)
[2023-11-22 09:37] LABS: HEMATOCRIT 30.4 % (32.4-45.2); HEMOGLOBIN 10.1 GM/dL (10.7-15.3); MCH 31.4 pg (25.7-33.7); MCHC 33.2 g/dl (32.0-36.0); MEAN CELL VOLUME 94.6 fl (80-96); PLATELET COUNT 171 10^3/uL (134-434); RBC 3.21 M/mm3 (3.60-5.2); RDW 14.5 % (11.6-15.6); WHITE BLOOD COUNT 6.6 K/mm3 (4.0-10.0)
[2023-11-22 09:52] LABS: POTASSIUM 5.5 mmol/L (3.5-5.1)
[2023-11-22 09:53] LABS: CALCIUM 9.4 mg/dL (8.5-10.1)
[2023-11-22 09:54] LABS: BLOOD UREA NITROGEN 46.4 mg/dL (7-18); MAGNESIUM 2.2 mg/dL (1.8-2.4)
[2023-11-22 09:57] LABS: CREATININE 5.2 mg/dL (0.55-1.3); PHOSPHOROUS 4.8 mg/dL (2.5-4.9)
[2023-11-22] MEDS: EPOETIN ALFA-EPBX 3,000 UNIT/ML VIAL IVPUSH ONE (10:38)
[2023-11-22 15:10] VITALS: BP 158/67; PULSE 69; TEMP 99.5
== END 2023-11-22 16:04 | disposition home or self-care (01) | DRG 947 ==
LOC: JER 13:28 → JERBED 15:50 → J5S 17:38
PROVIDERS: ADMIT Internal Medicine
PROC: 5A1D70Z Performance of Urinary Filtration, Intermittent, Less than 6 Hours Per Day (ICD-10-PCS; 2023-11-17)
PROC: 5A1D70Z Performance of Urinary Filtration, Intermittent, Less than 6 Hours Per Day (ICD-10-PCS; 2023-11-18)
PROC: 5A1D70Z Performance of Urinary Filtration, Intermittent, Less than 6 Hours Per Day (ICD-10-PCS; 2023-11-20)
PROC: 0W9G3ZZ Drainage of Peritoneal Cavity, Percutaneous Approach (ICD-10-PCS; principal; 2023-11-21)
PROC: 5A1D70Z Performance of Urinary Filtration, Intermittent, Less than 6 Hours Per Day (ICD-10-PCS; 2023-11-22)
DX: R18.8 Other ascites (principal); N18.6 End stage renal disease; I13.2 Hypertensive heart and chronic kidney disease with heart failure and with stage 5 chronic kidney disease, or end stage renal disease; I50.32 Chronic diastolic (congestive) heart failure; J96.11 Chronic respiratory failure with hypoxia; E11.22 Type 2 diabetes mellitus with diabetic chronic kidney disease; I25.10 Atherosclerotic heart disease of native coronary artery without angina pectoris; J44.9 Chronic obstructive pulmonary disease, unspecified; K21.9 Gastro-esophageal reflux disease without esophagitis; E78.00 Pure hypercholesterolemia, unspecified; I89.0 Lymphedema, not elsewhere classified; E11.40 Type 2 diabetes mellitus with diabetic neuropathy, unspecified; E11.43 Type 2 diabetes mellitus with diabetic autonomic (poly)neuropathy; K31.84 Gastroparesis; F41.8 Other specified anxiety disorders; E04.2 Nontoxic multinodular goiter; K44.9 Diaphragmatic hernia without obstruction or gangrene; E78.5 Hyperlipidemia, unspecified; E87.70 Fluid overload, unspecified; M62.838 Other muscle spasm; K57.90 Diverticulosis of intestine, part unspecified, without perforation or abscess without bleeding; Z95.5 Presence of coronary angioplasty implant and graft; Z89.422 Acquired absence of other left toe(s); Z99.2 Dependence on renal dialysis
CPT/HCPCS: 36415; 71045-TC-FY; 76942-TC; 76998-TC; 80048; 80053; 82962; 83605; 83735; 84100; 84484; 85025; 85027; 85610; 86803; 86850; 86900; 86901; 87340; 93005; 93010; 94640; 97116-GP; 97162-GP; 99285-25; J0131; J1644; Q5106

== ENCOUNTER 2024-01-07 22:27 | Observation (INO) | payer OTHER ==
[2024-01-07 22:41] VITALS: BMI 22.3
[2024-01-07] MEDS ORDERED: FAMOTIDINE 20 MG/50 ML IVPB 20 MG/50 ML MG IVPB ONE (23:12)
[2024-01-07] MEDS ORDERED: ACETAMINOPHEN INJECTION 100 ML ONE (23:12)
[2024-01-07] MEDS ORDERED: ONDANSETRON 4 MG/2 ML VIAL ONE (23:12)
[2024-01-07 23:48] LABS: HEMATOCRIT 32.4 % (32.4-45.2); HEMOGLOBIN 11.1 GM/dL (10.7-15.3); MCH 31.2 pg (25.7-33.7); MCHC 34.2 g/dl (32.0-36.0); MEAN CELL VOLUME 91.1 fl (80-96); MEAN PLT VOLUME 9.7 fl (7.5-11.1); PLATELET COUNT 261 10^3/uL (134-434); RBC 3.56 M/mm3 (3.60-5.2); RDW 15.2 % (11.6-15.6); WHITE BLOOD COUNT 6.5 K/mm3 (4.0-10.0)
[2024-01-07 23:57] LABS: INR 1.11 (0.83-1.09); PROTHROMBIN TIME (PATIENT) 12.5 SEC (9.7-13.0)
[2024-01-08] LABS: ACTIVATED PTT 33.8 SECONDS (25.2-36.5)
[2024-01-08 00:01] LABS: CALCIUM 10.7 mg/dL (8.5-10.1)
[2024-01-08 00:02] LABS: ALBUMIN 3.7 g/dl (3.4-5.0); BLOOD UREA NITROGEN 45.3 mg/dL (7-18); MAGNESIUM 2.5 mg/dL (1.8-2.4)
[2024-01-08] MEDS: FAMOTIDINE 20 MG/50 ML IVPB 20 MG/50 ML MG IVPB ONE (00:03)
[2024-01-08] MEDS: ONDANSETRON 4 MG/2 ML VIAL IVPUSH ONE ×2 (00:03→04:48)
[2024-01-08] MEDS: ACETAMINOPHEN 1000 MG/100 ML BAG IVPB ONE ×2 (00:03→14:51)
[2024-01-08 00:05] LABS: CREATININE 4.8 mg/dL (0.55-1.3); PHOSPHOROUS 5.4 mg/dL (2.5-4.9)
[2024-01-08 00:06] LABS: BILIRUBIN,TOTAL 0.9 mg/dL (0.2-1)
[2024-01-08 00:07] LABS: TOT PROT 8.8 g/dl (6.4-8.2)
[2024-01-08] MEDS ORDERED: morphine SULFATE 4 MG/ML VIAL ONE ×2 (00:39→05:03)
[2024-01-08] MEDS: morphine CARPU-JECT 4 MG/1 ML DISP.SYRIN IVPUSH ONE (01:23)
[2024-01-08] MEDS: morphine CARPU-JECT 4 MG/1 ML DISP.SYRIN IM ONE (01:24)
[2024-01-08 01:37] LABS: POTASSIUM 5.1 mmol/L (3.5-5.1)
[2024-01-08 01:40] LABS: CALCIUM 10.9 mg/dL (8.5-10.1)
[2024-01-08 01:41] LABS: ALBUMIN 3.9 g/dl (3.4-5.0); BLOOD UREA NITROGEN 45.8 mg/dL (7-18)
[2024-01-08 01:45] LABS: BILIRUBIN,TOTAL 1.2 mg/dL (0.2-1)
[2024-01-08 01:46] LABS: TOT PROT 9.2 g/dl (6.4-8.2)
[2024-01-08] MEDS ORDERED: LIDOCAINE HCL 2% (20ML MULTI-DOSE VIAL) ONE (02:31)
[2024-01-08] MEDS ORDERED: ONDANSETRON 4 MG/2 ML VIAL ONE (04:29)
[2024-01-08] MEDS ORDERED: ONDANSETRON 4 MG/2 ML VIAL IVPUSH PRN (04:54)
[2024-01-08] MEDS: morphine SULFATE 4 MG/ML VIAL IM ONE (05:11)
[2024-01-08] MEDS: morphine CARPU-JECT 8 MG/1 ML DISP.SYRIN IVPUSH ONE (05:22)
[2024-01-08] MEDS ORDERED: POLYETHYLENE GLYCOL (HEALTHYLAX) 3350 17 GM PACKET PO PRN (07:58)
[2024-01-08] MEDS: ONDANSETRON 4 MG/2 ML VIAL IVPUSH PRN (09:46)
[2024-01-08] MEDS ORDERED: SODIUM CHLORIDE 250 ML IV PRN (10:48)
[2024-01-08] MEDS: PANTOPRAZOLE 40 MG TABLET PO SCH (12:48)
[2024-01-08] MEDS: INSULIN ASPART SLIDING SCALE (NOVOLOG) 1 VIAL SQ SCH (18:08)
[2024-01-08] MEDS: LIDOCAINE 4% PATCH TP SCH (18:09)
[2024-01-08] MEDS: busPIRone HCL 10 MG TABLET (FP) PO SCH (18:09)
[2024-01-08] MEDS: LOSARTAN POTASSIUM 50 MG TABLET PO SCH (18:10)
[2024-01-08] MEDS: DULoxetine HCL 30 MG CAPSULE.DR PO SCH (18:10)
[2024-01-08] MEDS: LABETALOL HCL 200 MG TABLET (FP) PO SCH (18:10)
[2024-01-08] MEDS: BUDESONIDE/FORMETEROL FUMARATE 80/4.5 mcg INHALER IH SCH (18:11)
[2024-01-08] MEDS: NIFEdipine E.R 60 MG TABLET PO SCH (18:11)
[2024-01-08] MEDS: morphine CARPU-JECT 2 MG/1 ML DISP.SYRIN IVPUSH ONE (18:12)
[2024-01-08] MEDS: HEPARIN NA (PORCINE) 5,000 UNITS/ML 1ML VIAL SQ SCH (18:12)
[2024-01-08] MEDS: ATORVASTATIN CA 40 MG TABLET (FP) PO SCH (21:53)
[2024-01-08] MEDS: LIDOCAINE PATCH REMOVAL MC SCH (21:54)
[2024-01-08] MEDS ORDERED: LIDOCAINE REMOVAL MC SCH (22:00)
[2024-01-09] MEDS: CLOPIDOGREL BISULFATE 75 MG TABLET (FP) PO SCH (09:34)
[2024-01-09] MEDS: ASPIRIN COATED 81 MG TABLET.EC PO SCH (09:34)
[2024-01-09 10:13] LABS: HEMATOCRIT 31.9 % (32.4-45.2); HEMOGLOBIN 10.5 GM/dL (10.7-15.3); MCH 30.9 pg (25.7-33.7); MEAN CELL VOLUME 93.6 fl (80-96); MEAN PLT VOLUME 9.5 fl (7.5-11.1); PLATELET COUNT 208 10^3/uL (134-434); RBC 3.41 M/mm3 (3.60-5.2); RDW 15.2 % (11.6-15.6); WHITE BLOOD COUNT 4.8 K/mm3 (4.0-10.0)
[2024-01-09 10:28] LABS: POTASSIUM 5.1 mmol/L (3.5-5.1)
[2024-01-09 10:37] LABS: ALBUMIN 3.5 g/dl (3.4-5.0); BLOOD UREA NITROGEN 35.9 mg/dL (7-18); CALCIUM 9.9 mg/dL (8.5-10.1)
[2024-01-09 10:38] LABS: MAGNESIUM 2.6 mg/dL (1.8-2.4)
[2024-01-09 10:40] LABS: CREATININE 4.6 mg/dL (0.55-1.3); PHOSPHOROUS 5.1 mg/dL (2.5-4.9)
[2024-01-09 10:41] LABS: BILIRUBIN,TOTAL 0.7 mg/dL (0.2-1)
[2024-01-09 14:02] LABS: BODY FLUID MONOCYTE 35 %
[2024-01-09 14:03] LABS: BODY FLUID MESOTHELIAL 35 %
[2024-01-09 14:04] LABS: BF WBC & OTHER NUCLEATED CELLS 342 /mm3
[2024-01-09 14:30] VITALS: BP 160/66; PULSE 82; RESP 16; TEMP 97.3
[2024-01-10 14:10] LABS: BODY FLUID ALBUMIN 3.1 g/dL (Not Estab.)
== END 2024-01-09 18:44 | disposition home or self-care (01) ==
LOC: JER 22:27 → JERBED 01-08 03:49 → UNDOADMOB 01-08 03:49 → INTOOBSV 01-08 03:49 → JERBED 01-08 07:48 → J5S 01-08 10:58
PROVIDERS: ADMIT Internal Medicine; ATTEND Internal Medicine
PROC: 3E033NZ Introduction of Analgesics, Hypnotics, Sedatives into Peripheral Vein, Percutaneous Approach (ICD-10-PCS; principal; 2024-01-08)
PROC: 3E033GC Introduction of Other Therapeutic Substance into Peripheral Vein, Percutaneous Approach (ICD-10-PCS; 2024-01-08)
PROC: 3E023GC Introduction of Other Therapeutic Substance into Muscle, Percutaneous Approach (ICD-10-PCS; 2024-01-08)
PROC: 3E013VG Introduction of Insulin into Subcutaneous Tissue, Percutaneous Approach (ICD-10-PCS; 2024-01-08)
PROC: 3E033NZ Introduction of Analgesics, Hypnotics, Sedatives into Peripheral Vein, Percutaneous Approach (ICD-10-PCS; 2024-01-08)
PROC: 3E0337Z Introduction of Electrolytic and Water Balance Substance into Peripheral Vein, Percutaneous Approach (ICD-10-PCS; 2024-01-08)
DX: R18.8 Other ascites (principal); I12.0 Hypertensive chronic kidney disease with stage 5 chronic kidney disease or end stage renal disease; N18.6 End stage renal disease; Z99.2 Dependence on renal dialysis; E11.22 Type 2 diabetes mellitus with diabetic chronic kidney disease; Z95.5 Presence of coronary angioplasty implant and graft; J44.9 Chronic obstructive pulmonary disease, unspecified; I11.9 Hypertensive heart disease without heart failure; Z99.81 Dependence on supplemental oxygen; K59.00 Constipation, unspecified; F32.A Depression, unspecified; K44.9 Diaphragmatic hernia without obstruction or gangrene; K21.9 Gastro-esophageal reflux disease without esophagitis; K29.70 Gastritis, unspecified, without bleeding; E04.1 Nontoxic single thyroid nodule; F17.210 Nicotine dependence, cigarettes, uncomplicated
CPT/HCPCS: 36415; 74176-TC; 76942-TC; 80053; 82042; 82150; 82465; 82945; 82962; 83615; 83735; 83986; 84100; 84157; 84478; 84484; 85027; 85610; 85730; 87070; 87075; 87102; 87116; 87205; 87206; 87210; 88108; 88305-TC; 93005; 93010; 96365; 96372; 96375; 96376; 99285-25; G0378; G0463; J0131; J1644

== ENCOUNTER → 2024-01-30 | Day surgery (SDC) | payer OTHER | END | disposition home or self-care (01) | LOC: JRADIR 12:09 | PROVIDERS: ATTEND Internal Medicine Nephrology | PROC: 0W9G3ZZ Drainage of Peritoneal Cavity, Percutaneous Approach (ICD-10-PCS; principal; 2024-01-30) | DX: R18.8 Other ascites (principal); R10.84 Generalized abdominal pain | CPT/HCPCS: 49083; 76942-TC ==

== ENCOUNTER 2024-02-25 18:18 | Inpatient (IN) | payer OTHER ==
[2024-02-25] MEDS ORDERED: ACETAMINOPHEN INJECTION 100 ML ONE (19:33)
[2024-02-25] MEDS ORDERED: FAMOTIDINE 20 MG/50 ML IVPB 20 MG/50 ML MG IVPB ONE (19:33)
[2024-02-25] MEDS ORDERED: MAG HYDROX/AL HYDROX/SIMETH 30 ML UNIT-DOSE CUP ONE (19:33)
[2024-02-25] MEDS ORDERED: ONDANSETRON 4 MG/2 ML VIAL ONE (19:33)
[2024-02-25] MEDS: MAG HYDROX/AL HYDROX/SIMETH 30 ML UNIT-DOSE CUP PO ONE (19:58)
[2024-02-25] MEDS: ACETAMINOPHEN 1000 MG/100 ML BAG IVPB ONE (19:58)
[2024-02-25] MEDS: ONDANSETRON 4 MG/2 ML VIAL IVPB ONE (19:59)
[2024-02-25 20:01] LABS: BASO % 1.8 % (0-2.0); EOS % 0.4 % (0-4.5); HEMATOCRIT 34.5 % (32.4-45.2); HEMOGLOBIN 11.6 GM/dL (10.7-15.3); LYMPH % 9.3 % (8-40); MCH 30.9 pg (25.7-33.7); MCHC 33.5 g/dl (32.0-36.0); MEAN CELL VOLUME 92.2 fl (80-96); MEAN PLT VOLUME 9.3 fl (7.5-11.1); NEUT % 81.5 % (42.8-82.8); PLATELET COUNT 208 10^3/uL (134-434); RBC 3.74 M/mm3 (3.60-5.2); RDW 15.2 % (11.6-15.6); WHITE BLOOD COUNT 6.9 K/mm3 (4.0-10.0)
[2024-02-25 20:08] LABS: INR 1.08 (0.83-1.09); PROTHROMBIN TIME (PATIENT) 12.2 SEC (9.7-13.0)
[2024-02-25 20:10] LABS: ACTIVATED PTT 37.2 SECONDS (25.2-36.5)
[2024-02-25] MEDS: FAMOTIDINE 20 MG/50 ML IVPB 20 MG/50 ML MG IVPB ONE (20:18)
[2024-02-25] MEDS: morphine SULFATE 4 MG/ML VIAL IVPUSH ONE (20:40)
[2024-02-25 21:01] LABS: POTASSIUM 4.7 mmol/L (3.5-5.1)
[2024-02-25 21:03] LABS: ALBUMIN 3.8 g/dl (3.4-5.0); CALCIUM 10.3 mg/dL (8.5-10.1)
[2024-02-25 21:04] LABS: BLOOD UREA NITROGEN 50.4 mg/dL (7-18); MAGNESIUM 2.8 mg/dL (1.8-2.4)
[2024-02-25 21:07] LABS: CREATININE 6.2 mg/dL (0.55-1.3); PHOSPHOROUS 5.9 mg/dL (2.5-4.9)
[2024-02-25 21:08] LABS: BILIRUBIN,TOTAL 0.7 mg/dL (0.2-1); TOT PROT 8.5 g/dl (6.4-8.2)
[2024-02-25] MEDS ORDERED: HALOPERIDOL LACTATE 5 MG/ML ONE ×2 (22:25→23:34)
[2024-02-25] MEDS: HALOPERIDOL LACTATE 5 MG/ML IM ONE (23:31)
[2024-02-26] MEDS: HALOPERIDOL LACTATE 5 MG/ML IM ONE (00:35)
[2024-02-26] MEDS ORDERED: morphine SULFATE 4 MG/ML VIAL ONE (01:38)
[2024-02-26] MEDS: morphine CARPU-JECT 4 MG/1 ML DISP.SYRIN IVPUSH ONE (01:58)
[2024-02-26] MEDS ORDERED: AMMONIUM LACTATE 12% LOTION 225 GM BOTTLE TP PRN (03:41)
[2024-02-26] MEDS ORDERED: morphine SULFATE 4 MG/ML VIAL IVPUSH PRN (04:00)
[2024-02-26 06:03] LABS: HEMATOCRIT 32.5 % (32.4-45.2); HEMOGLOBIN 10.9 GM/dL (10.7-15.3); MCHC 33.5 g/dl (32.0-36.0); MEAN CELL VOLUME 92.5 fl (80-96); MEAN PLT VOLUME 9.3 fl (7.5-11.1); PLATELET COUNT 196 10^3/uL (134-434); RBC 3.52 M/mm3 (3.60-5.2); RDW 15.1 % (11.6-15.6); WHITE BLOOD COUNT 5.9 K/mm3 (4.0-10.0)
[2024-02-26 06:19] LABS: POTASSIUM 4.9 mmol/L (3.5-5.1)
[2024-02-26 06:21] LABS: ALBUMIN 3.4 g/dl (3.4-5.0); CALCIUM 9.7 mg/dL (8.5-10.1)
[2024-02-26 06:22] LABS: BLOOD UREA NITROGEN 55.2 mg/dL (7-18); MAGNESIUM 2.8 mg/dL (1.8-2.4)
[2024-02-26 06:25] LABS: CREATININE 6.7 mg/dL (0.55-1.3); PHOSPHOROUS 6.9 mg/dL (2.5-4.9)
[2024-02-26 06:26] LABS: BILIRUBIN,TOTAL 0.7 mg/dL (0.2-1)
[2024-02-26] MEDS: HEPARIN NA (PORCINE) 5,000 UNITS/ML 1ML VIAL SQ SCH (06:41)
[2024-02-26] MEDS: POLYETHYLENE GLYCOL (HEALTHYLAX) 3350 17 GM PACKET PO SCH (06:41)
[2024-02-26] MEDS: MINERAL OIL ENEMA 133 ML ENEMA RC ONE (06:55)
[2024-02-26] MEDS ORDERED: SODIUM CHLORIDE 250 ML IV PRN (10:35)
[2024-02-26] MEDS: INSULIN ASPART SLIDING SCALE (NOVOLOG) 1 VIAL SQ SCH (11:33)
[2024-02-26] MEDS: LIDOCAINE 4% PATCH TP SCH (11:35)
[2024-02-26] MEDS: busPIRone HCL 10 MG TABLET (FP) PO SCH (11:36)
[2024-02-26] MEDS: LOSARTAN POTASSIUM 50 MG TABLET PO SCH (11:40)
[2024-02-26] MEDS: ISOSORBIDE MONONITRATE 60 MG TAB.SR.24H (FP) PO SCH (11:40)
[2024-02-26] MEDS: NIFEdipine E.R 60 MG TABLET PO SCH (11:40)
[2024-02-26] MEDS: PANTOPRAZOLE 40 MG TABLET PO SCH (11:40)
[2024-02-26] MEDS: DULoxetine HCL 30 MG CAPSULE.DR PO SCH (11:40)
[2024-02-26] MEDS: cloNIDine HCL 0.1 MG TABLET PO SCH (11:40)
[2024-02-26] MEDS: CLOPIDOGREL BISULFATE 75 MG TABLET (FP) PO SCH (11:40)
[2024-02-26] MEDS: ASPIRIN COATED 81 MG TABLET.EC PO SCH (11:40)
[2024-02-26] MEDS: LABETALOL HCL 200 MG TABLET (FP) PO SCH (11:40)
[2024-02-26] MEDS: ATORVASTATIN CA 40 MG TABLET (FP) PO SCH (21:28)
[2024-02-26] MEDS: BISACODYL 10 MG SUPP.RECT PR SCH (21:28)
[2024-02-26] MEDS: LIDOCAINE PATCH REMOVAL MC SCH (21:33)
[2024-02-27] MEDS ORDERED: EPOETIN ALFA-EPBX 3,000 UNIT/ML VIAL SQ ONE (09:15)
[2024-02-27 10:05] LABS: HEMATOCRIT 32.3 % (32.4-45.2); HEMOGLOBIN 10.7 GM/dL (10.7-15.3); MCH 30.8 pg (25.7-33.7); MCHC 33.2 g/dl (32.0-36.0); MEAN CELL VOLUME 92.9 fl (80-96); MEAN PLT VOLUME 9.4 fl (7.5-11.1); PLATELET COUNT 204 10^3/uL (134-434); RBC 3.48 M/mm3 (3.60-5.2); RDW 15.1 % (11.6-15.6); WHITE BLOOD COUNT 5.3 K/mm3 (4.0-10.0)
[2024-02-27 10:13] LABS: INR 1.15 (0.83-1.09); PROTHROMBIN TIME (PATIENT) 12.9 SEC (9.7-13.0)
[2024-02-27] MEDS ORDERED: SODIUM CHLORIDE 250 ML IV PRN (10:34)
[2024-02-27 10:39] LABS: POTASSIUM 4.1 mmol/L (3.5-5.1)
[2024-02-27 11:06] LABS: CALCIUM 9.3 mg/dL (8.5-10.1)
[2024-02-27 11:07] LABS: BLOOD UREA NITROGEN 31.4 mg/dL (7-18); MAGNESIUM 2.6 mg/dL (1.8-2.4)
[2024-02-27 11:10] LABS: PHOSPHOROUS 5.7 mg/dL (2.5-4.9)
[2024-02-27] MEDS: FAMOTIDINE 10 MG TABLET PO SCH (15:16)
[2024-02-27] MEDS: ONDANSETRON 4 MG/2 ML VIAL IVPUSH ONE (15:16)
[2024-02-27 15:20] LABS: BF WBC & OTHER NUCLEATED CELLS 334 /mm3
[2024-02-27 15:36] LABS: BODY FLUID MACROPHAGES 63 %; BODY FLUID MESOTHELIAL 2 %
[2024-02-27] MEDS: ALBUMIN HUMAN 25% 12.5 GM/50 ML VIAL IV SCH (16:08)
[2024-02-27] MEDS: BUDESONIDE/FORMOTEROL FUMARATE 80-4.5 MCG (10.3 GM INHALER) IH SCH (22:30)
[2024-02-27] MEDS: HEPARIN NA (PORCINE) 5,000 UNITS/ML 1ML VIAL SQ SCH (22:30)
[2024-02-28 09:07] VITALS: RESP 18
[2024-02-28 09:36] LABS: BASO % 1.2 % (0-2.0); EOS % 1.4 % (0-4.5); HEMATOCRIT 30.2 % (32.4-45.2); HEMOGLOBIN 10.2 GM/dL (10.7-15.3); MCH 31.1 pg (25.7-33.7); MCHC 33.9 g/dl (32.0-36.0); MEAN CELL VOLUME 91.9 fl (80-96); MEAN PLT VOLUME 9.3 fl (7.5-11.1); MONO % 12.4 % (3.8-10.2); PLATELET COUNT 177 10^3/uL (134-434); RBC 3.28 M/mm3 (3.60-5.2); RDW 15.4 % (11.6-15.6)
[2024-02-28 09:55] LABS: POTASSIUM 4.7 mmol/L (3.5-5.1)
[2024-02-28 10:12] LABS: ALBUMIN 3.1 g/dl (3.4-5.0); MAGNESIUM 2.6 mg/dL (1.8-2.4)
[2024-02-28 10:13] LABS: BLOOD UREA NITROGEN 45.1 mg/dL (7-18)
[2024-02-28 10:15] LABS: BILIRUBIN,TOTAL 0.7 mg/dL (0.2-1); CREATININE 6.1 mg/dL (0.55-1.3)
[2024-02-28 10:16] LABS: TOT PROT 6.8 g/dl (6.4-8.2)
[2024-02-28] MEDS: EPOETIN ALFA-EPBX 3,000 UNIT/ML VIAL SQ ONE (11:53)
[2024-02-28 12:35] VITALS: PULSE 65
[2024-02-28 12:43] VITALS: BP 133/56; TEMP 98
[2024-02-28 13:47] VITALS: BMI 29.1
[2024-02-28 15:12] LABS: BODY FLUID ALBUMIN 2.9 g/dL (Not Estab.)
== END 2024-02-28 16:23 | disposition home or self-care (01) | DRG 947 ==
LOC: JER 18:18 → JERBED 23:24 → J6S 02-26 07:30
PROVIDERS: ADMIT Internal Medicine; ATTEND Internal Medicine
PROC: 0W9G3ZZ Drainage of Peritoneal Cavity, Percutaneous Approach (ICD-10-PCS; principal; 2024-02-27)
PROC: 5A1D70Z Performance of Urinary Filtration, Intermittent, Less than 6 Hours Per Day (ICD-10-PCS; 2024-02-28)
DX: R18.8 Other ascites (principal); N18.6 End stage renal disease; E87.1 Hypo-osmolality and hyponatremia; I13.2 Hypertensive heart and chronic kidney disease with heart failure and with stage 5 chronic kidney disease, or end stage renal disease; I50.32 Chronic diastolic (congestive) heart failure; E11.43 Type 2 diabetes mellitus with diabetic autonomic (poly)neuropathy; K31.84 Gastroparesis; Z99.2 Dependence on renal dialysis; K59.00 Constipation, unspecified; I25.10 Atherosclerotic heart disease of native coronary artery without angina pectoris; Z95.5 Presence of coronary angioplasty implant and graft; E78.5 Hyperlipidemia, unspecified; J44.9 Chronic obstructive pulmonary disease, unspecified; E11.42 Type 2 diabetes mellitus with diabetic polyneuropathy
CPT/HCPCS: 36415; 74176-TC; 76942-TC; 80048; 80053; 82042; 82150; 82465; 82945; 82962; 83615; 83735; 83986; 84100; 84157; 84478; 84484; 85025; 85027; 85610; 85730; 86704; 86705; 86803; 87070; 87075; 87102; 87116; 87205; 87206; 87210; 87340; 87517; 88108; 88305-TC; 93005; 93010; 99285-25; J0131; J1644; P9047; Q5106

== ENCOUNTER → 2024-03-19 | Day surgery (SDC) | payer OTHER | END | disposition home or self-care (01) | LOC: JRADUS-SUR 10:45 → JRADIR 10:45 | PROVIDERS: ATTEND Internal Medicine Nephrology | PROC: 0W9G3ZZ Drainage of Peritoneal Cavity, Percutaneous Approach (ICD-10-PCS; principal; 2024-03-19) | DX: R18.8 Other ascites (principal); N18.6 End stage renal disease | CPT/HCPCS: 49083; 76942-TC ==

== ENCOUNTER 2024-03-20 12:42 | Observation (INO) | payer OTHER ==
[2024-03-20 13:07] VITALS: BMI 25.0
[2024-03-20 13:51] LABS: BASO % 0.9 % (0-2.0); EOS % 1.4 % (0-4.5); HEMATOCRIT 36.1 % (32.4-45.2); HEMOGLOBIN 11.9 GM/dL (10.7-15.3); LYMPH % 12.6 % (8-40); MCH 30.3 pg (25.7-33.7); MEAN CELL VOLUME 91.8 fl (80-96); MEAN PLT VOLUME 9.3 fl (7.5-11.1); MONO % 12.1 % (3.8-10.2); PLATELET COUNT 218 10^3/uL (134-434); RBC 3.93 M/mm3 (3.60-5.2); RDW 15.5 % (11.6-15.6); WHITE BLOOD COUNT 6.3 K/mm3 (4.0-10.0)
[2024-03-20] MEDS ORDERED: ONDANSETRON 4 MG/2 ML VIAL ONE (13:51)
[2024-03-20] MEDS: ONDANSETRON 4 MG/2 ML VIAL IVPB ONE (13:54)
[2024-03-20 14:01] LABS: CHLORIDE 94 mmol/L (98-107); SODIUM 130 mmol/L (136-145)
[2024-03-20 14:03] LABS: CALCIUM 10.9 mg/dL (8.5-10.1)
[2024-03-20 14:04] LABS: ALBUMIN 3.4 g/dl (3.4-5.0); BLOOD UREA NITROGEN 50.5 mg/dL (7-18); CO2 26 mmol/L (21-32); GLUCOSE,RANDOM 107 mg/dL (74-106); MAGNESIUM 2.5 mg/dL (1.8-2.4)
[2024-03-20 14:07] LABS: INR 1.07 (0.83-1.09); PHOSPHOROUS 6.3 mg/dL (2.5-4.9); PROTHROMBIN TIME (PATIENT) 12.1 SEC (9.7-13.0); SGOT/AST 35 U/L (15-37); SGPT/ALT 38 U/L (13-61)
[2024-03-20 14:08] LABS: BILIRUBIN,TOTAL 0.8 mg/dL (0.2-1); TOT PROT 7.7 g/dl (6.4-8.2)
[2024-03-20 14:10] LABS: ACTIVATED PTT 34.9 SECONDS (25.2-36.5); ALK PHOS 468 U/L (45-117)
[2024-03-20 14:18] LABS: ANION GAP 10 mmol/L (4-13); CREATININE 6.1 mg/dL (0.55-1.3); POTASSIUM 6.2 mmol/L (3.5-5.1)
[2024-03-20] MEDS ORDERED: SODIUM CHLORIDE 250 ML IV PRN (15:10)
[2024-03-20] MEDS ORDERED: SODIUM ZIRCONIUM CYCLOSILICATE (LOKELMA) 10 GM PACKET ONE (15:13)
[2024-03-20] MEDS ORDERED: INSULIN REGULAR HUMAN 100 UNITS/ML *VIAL ONE ×2 (15:14→15:16)
[2024-03-20] MEDS ORDERED: CALCIUM GLUC IN NACL, ISO-OSM 1 GM/50 ML BAG IVPB ONE (15:16)
[2024-03-20] MEDS: CALCIUM GLUC IN NACL, ISO-OSM 1 GM/50 ML BAG IVPB ONE (15:33)
[2024-03-20] MEDS: SODIUM ZIRCONIUM CYCLOSILICATE (LOKELMA) 5 GM PACKET PO ONE (15:33)
[2024-03-20] MEDS: INSULIN REGULAR HUMAN 100 UNITS/ML *VIAL IVPUSH ONE (15:44)
[2024-03-20] MEDS: DEXTROSE 50%-WATER - 25 GM/50 ML VIAL IVPUSH ONE ×2 (15:45→15:48)
[2024-03-20] MEDS ORDERED: ISOSORBIDE MONONITRATE 60 MG TAB.SR.24H (FP) PO ONE (16:31)
[2024-03-20] MEDS ORDERED: ALBUTEROL SO4 2.5/IPRATROPIUM 0.5 INH SOL 3 ML VIAL.NEB. NEB PRN (16:43)
[2024-03-20] MEDS: LABETALOL HCL 200 MG TABLET (FP) PO SCH (21:50)
[2024-03-20] MEDS: ISOSORBIDE MONONITRATE 60 MG TAB.SR.24H (FP) PO ONE (21:50)
[2024-03-20] MEDS: DULoxetine HCL 30 MG CAPSULE.DR PO SCH (21:50)
[2024-03-20] MEDS: NIFEdipine E.R 60 MG TABLET PO SCH (21:50)
[2024-03-20] MEDS: cloNIDine-TTS 0.3 MG /24 HRS PATCH.TDWK TD SCH (22:00)
[2024-03-21 02:10] LABS: POTASSIUM 4.2 mmol/L (3.5-5.1)
[2024-03-21 02:12] LABS: CALCIUM 9.5 mg/dL (8.5-10.1)
[2024-03-21 02:16] LABS: CREATININE 3.7 mg/dL (0.55-1.3)
[2024-03-21 02:35] LABS: BLOOD UREA NITROGEN 19.2 mg/dL (7-18)
[2024-03-21] MEDS: SEVELAMER CARBONATE 800 MG TAB (FP) PO SCH (07:29)
[2024-03-21] MEDS: LABETALOL HCL 200 MG TABLET (FP) PO ONE ×2 (07:29)
[2024-03-21] MEDS: CLOPIDOGREL BISULFATE 75 MG TABLET (FP) PO SCH (07:29)
[2024-03-21] MEDS: NIFEdipine E.R 60 MG TABLET PO SCH (07:30)
[2024-03-21] MEDS: ONDANSETRON 4 MG/2 ML VIAL IVPUSH PRN (09:11)
[2024-03-21] MEDS: ASPIRIN COATED 81 MG TABLET.EC PO SCH (10:00)
[2024-03-21] MEDS: ISOSORBIDE MONONITRATE 60 MG TAB.SR.24H (FP) PO SCH (10:00)
[2024-03-21] MEDS: PANTOPRAZOLE 40 MG TABLET PO SCH (10:00)
[2024-03-21] MEDS: LOSARTAN POTASSIUM 50 MG TABLET PO SCH (10:00)
[2024-03-21] MEDS: ACETAMINOPHEN 1000 MG/100 ML BAG IVPB ONE (20:53)
[2024-03-22 07:31] LABS: BASO % 1.4 % (0-2.0); EOS % 2.3 % (0-4.5); HEMATOCRIT 31.3 % (32.4-45.2); HEMOGLOBIN 10.7 GM/dL (10.7-15.3); LYMPH % 14.8 % (8-40); MCH 31.7 pg (25.7-33.7); MCHC 34.3 g/dl (32.0-36.0); MEAN CELL VOLUME 92.4 fl (80-96); MONO % 14.2 % (3.8-10.2); NEUT % 67.3 % (42.8-82.8); PLATELET COUNT 186 10^3/uL (134-434); RBC 3.39 M/mm3 (3.60-5.2); RDW 15.3 % (11.6-15.6)
[2024-03-22 07:46] LABS: ALBUMIN 3.2 g/dl (3.4-5.0)
[2024-03-22 07:47] LABS: BLOOD UREA NITROGEN 34.2 mg/dL (7-18); CALCIUM 9.3 mg/dL (8.5-10.1)
[2024-03-22 07:48] LABS: BILIRUBIN,TOTAL 0.7 mg/dL (0.2-1); TOT PROT 7.4 g/dl (6.4-8.2)
[2024-03-22 07:51] LABS: CREATININE 5.8 mg/dL (0.55-1.3)
[2024-03-22] MEDS: BISACODYL 5 MG TABLET.DR (FP) PO PRN (10:25)
[2024-03-22] MEDS: CEFTRIAXONE 1 G/50 ML PREMIX 50 ML IVPB SCH (10:26)
[2024-03-22] MEDS ORDERED: SODIUM CHLORIDE 250 ML IV PRN (12:48)
[2024-03-22] MEDS: LACTULOSE 20 GM/30 ML UDC (FOR ORAL USE ONLY) PO SCH (18:31)
[2024-03-22] MEDS: ACETAMINOPHEN 1000 MG/100 ML BAG IVPB PRN (18:32)
[2024-03-23 08:02] LABS: EOS % 3.3 % (0-4.5); HEMATOCRIT 35.5 % (32.4-45.2); HEMOGLOBIN 11.5 GM/dL (10.7-15.3); LYMPH % 12.8 % (8-40); MCH 30.5 pg (25.7-33.7); MCHC 32.3 g/dl (32.0-36.0); MEAN CELL VOLUME 94.4 fl (80-96); MEAN PLT VOLUME 8.9 fl (7.5-11.1); MONO % 11.1 % (3.8-10.2); NEUT % 71.8 % (42.8-82.8); PLATELET COUNT 193 10^3/uL (134-434); RBC 3.76 M/mm3 (3.60-5.2); RDW 15.7 % (11.6-15.6); WHITE BLOOD COUNT 6.4 K/mm3 (4.0-10.0)
[2024-03-23 08:15] LABS: POTASSIUM 4.3 mmol/L (3.5-5.1)
[2024-03-23 08:34] LABS: CALCIUM 9.6 mg/dL (8.5-10.1)
[2024-03-23 08:35] LABS: ALBUMIN 3.2 g/dl (3.4-5.0); BLOOD UREA NITROGEN 16.2 mg/dL (7-18)
[2024-03-23 08:37] LABS: CREATININE 3.9 mg/dL (0.55-1.3)
[2024-03-23 08:39] LABS: BILIRUBIN,TOTAL 0.6 mg/dL (0.2-1)
[2024-03-23 08:41] LABS: TOT PROT 7.3 g/dl (6.4-8.2)
[2024-03-23] MEDS: ACETAMINOPHEN 1000 MG/100 ML BAG IVPB PRN (11:00)
[2024-03-24] MEDS: HEPARIN NA (PORCINE) 5,000 UNITS/ML 1ML VIAL SQ SCH (14:29)
[2024-03-24 22:25] VITALS: RESP 18
[2024-03-25] MEDS ORDERED: SODIUM CHLORIDE 250 ML IV PRN (13:00)
[2024-03-25 13:58] VITALS: BP 173/75; PULSE 63; TEMP 96.8
== END 2024-03-25 16:55 | disposition home or self-care (01) ==
LOC: JER 12:42 → JERBED 15:07 → J4S 20:14
PROVIDERS: ADMIT Internal Medicine; ATTEND Internal Medicine
PROC: 3E033NZ Introduction of Analgesics, Hypnotics, Sedatives into Peripheral Vein, Percutaneous Approach (ICD-10-PCS; principal; 2024-03-20)
PROC: 3E033GC Introduction of Other Therapeutic Substance into Peripheral Vein, Percutaneous Approach (ICD-10-PCS; 2024-03-20)
PROC: 3E023GC Introduction of Other Therapeutic Substance into Muscle, Percutaneous Approach (ICD-10-PCS; 2024-03-20)
PROC: 3E033GC Introduction of Other Therapeutic Substance into Peripheral Vein, Percutaneous Approach (ICD-10-PCS; 2024-03-20)
DX: I16.0 Hypertensive urgency (principal); I12.0 Hypertensive chronic kidney disease with stage 5 chronic kidney disease or end stage renal disease; I11.9 Hypertensive heart disease without heart failure; E87.5 Hyperkalemia; E11.9 Type 2 diabetes mellitus without complications; J44.9 Chronic obstructive pulmonary disease, unspecified; N18.6 End stage renal disease; Z99.2 Dependence on renal dialysis; K74.60 Unspecified cirrhosis of liver; Z95.5 Presence of coronary angioplasty implant and graft; R29.6 Repeated falls; F25.9 Schizoaffective disorder, unspecified; E78.5 Hyperlipidemia, unspecified; I25.2 Old myocardial infarction; Z88.8 Allergy status to other drugs, medicaments and biological substances; F17.210 Nicotine dependence, cigarettes, uncomplicated
CPT/HCPCS: 0241U-QW; 36415; 70450-TC; 74176-TC; 74177-TC; 80048; 80053; 82962; 83690; 83735; 84100; 84484; 85025; 85610; 85730; 93005; 93010; 96365; 96372; 96375; 96376; 99285-25; G0378; J0131; J1644; Q9967

== ENCOUNTER 2024-04-20 16:03 | Emergency (ER) | payer OTHER ==
[2024-04-20 17:25] LABS: BASO % 1.3 % (0-2.0); EOS % 2.1 % (0-4.5); HEMOGLOBIN 10.2 GM/dL (10.7-15.3); LYMPH % 14.2 % (8-40); MCH 29.7 pg (25.7-33.7); MEAN CELL VOLUME 92.9 fl (80-96); MEAN PLT VOLUME 9.3 fl (7.5-11.1); MONO % 13.7 % (3.8-10.2); NEUT % 68.7 % (42.8-82.8); PLATELET COUNT 180 10^3/uL (134-434); RBC 3.44 M/mm3 (3.60-5.2); RDW 15.8 % (11.6-15.6); WHITE BLOOD COUNT 6.3 K/mm3 (4.0-10.0)
[2024-04-20 17:29] VITALS: RESP 18; BMI 25.0
[2024-04-20 17:35] LABS: VENOUS PCO2 42.1 mmHg (38-52); VENOUS PH 7.392 (7.310-7.410)
[2024-04-20 17:46] LABS: ALBUMIN 3.2 g/dl (3.4-5.0); CALCIUM 9.1 mg/dL (8.5-10.1)
[2024-04-20 17:47] LABS: BLOOD UREA NITROGEN 51.2 mg/dL (7-18); MAGNESIUM 2.4 mg/dL (1.8-2.4)
[2024-04-20 17:50] LABS: CREATININE 4.8 mg/dL (0.55-1.3); PHOSPHOROUS 4.1 mg/dL (2.5-4.9)
[2024-04-20 17:51] LABS: BILIRUBIN,TOTAL 0.8 mg/dL (0.2-1); TOT PROT 7.7 g/dl (6.4-8.2)
[2024-04-20 18:08] LABS: N-TERMINAL BNP 96381.4 pg/ml (5-125)
[2024-04-20] MEDS ORDERED: ALBUTEROL SO4 2.5/IPRATROPIUM 0.5 INH SOL 3 ML VIAL.NEB. NEB ONE (19:27)
[2024-04-20] MEDS ORDERED: CALCIUM GLUC IN NACL, ISO-OSM 1 GM/50 ML BAG IVPB ONE (19:27)
[2024-04-20] MEDS ORDERED: methylPREDNISolone NA SUCC 125 MG/2 ML VIAL ONE (19:27)
[2024-04-20] MEDS ORDERED: SODIUM ZIRCONIUM CYCLOSILICATE (LOKELMA) 5 GM PACKET ONE (19:27)
[2024-04-20] MEDS ORDERED: INSULIN REGULAR HUMAN 100 UNITS/ML *VIAL ONE ×2 (19:28→19:36)
[2024-04-20] MEDS ORDERED: PIPERACILLIN/TAZOB 3.375 GM 3.375 GM/50 ML BAG IVPB ONE (19:28)
[2024-04-20] MEDS: CALCIUM GLUCONATE 10% - 1,000 MG/10 ML VIAL IVPB ONE (19:50)
[2024-04-20] MEDS: methylPREDNISolone NA SUCC 125 MG/2 ML VIAL IVPB ONE (19:50)
[2024-04-20] MEDS: INSULIN REGULAR HUMAN 100 UNITS/ML *VIAL IVPUSH ONE (19:50)
[2024-04-20] MEDS: ALBUTEROL SO4 2.5/IPRATROPIUM 0.5 INH SOL 3 ML VIAL.NEB. NEB ONE (19:50)
[2024-04-20] MEDS: SODIUM ZIRCONIUM CYCLOSILICATE (LOKELMA) 5 GM PACKET PO SCH (19:51)
[2024-04-20] MEDS: PIPERACILLIN/TAZOB 3.375 GM 3.375 GM in DEXTROSE 5%-WATER - 50 ML IVPB ONE (19:51)
[2024-04-20] MEDS ORDERED: morphine SULFATE 4 MG/ML VIAL ONE (20:21)
[2024-04-20] MEDS: morphine CARPU-JECT 4 MG/1 ML DISP.SYRIN IVPUSH ONE (20:26)
[2024-04-20 21:06] VITALS: BP 126/76; PULSE 74; TEMP 98.6
== END 2024-04-20 21:07 | disposition short-term general hospital (02) ==
LOC: JER 16:03
PROC: 3E03329 Introduction of Other Anti-infective into Peripheral Vein, Percutaneous Approach (ICD-10-PCS; principal; 2024-04-20)
PROC: 3E033NZ Introduction of Analgesics, Hypnotics, Sedatives into Peripheral Vein, Percutaneous Approach (ICD-10-PCS; 2024-04-20)
PROC: 3E033GC Introduction of Other Therapeutic Substance into Peripheral Vein, Percutaneous Approach (ICD-10-PCS; 2024-04-20)
PROC: 3E033GC Introduction of Other Therapeutic Substance into Peripheral Vein, Percutaneous Approach (ICD-10-PCS; 2024-04-20)
PROC: 3E033GC Introduction of Other Therapeutic Substance into Peripheral Vein, Percutaneous Approach (ICD-10-PCS; 2024-04-20)
PROC: 3E0F7GC Introduction of Other Therapeutic Substance into Respiratory Tract, Via Natural or Artificial Opening (ICD-10-PCS; 2024-04-20)
DX: J40 Bronchitis, not specified as acute or chronic (principal); R18.8 Other ascites; E87.5 Hyperkalemia; I12.0 Hypertensive chronic kidney disease with stage 5 chronic kidney disease or end stage renal disease; E11.22 Type 2 diabetes mellitus with diabetic chronic kidney disease; N18.6 End stage renal disease; Z20.822 Contact with and (suspected) exposure to COVID-19
CPT/HCPCS: 0241U-QW; 36415; 71045-TC-FY; 80053; 82803; 82962; 83735; 83880; 84100; 84484; 85025; 93005; 93010; 99291

== ENCOUNTER → 2024-04-22 | Day surgery (SDC) | payer OTHER ==
[2024-04-22 13:09] LABS: INR 1.1 (0.83-1.09); PROTHROMBIN TIME (PATIENT) 12.6 SEC (9.7-13.0)
== END | disposition home or self-care (01) ==
LOC: JRADIR 12:13
PROVIDERS: ATTEND Internal Medicine Nephrology
PROC: 0W9G3ZZ Drainage of Peritoneal Cavity, Percutaneous Approach (ICD-10-PCS; principal; 2024-04-22)
DX: R18.8 Other ascites (principal)
CPT/HCPCS: 36415; 49083; 76942-TC; 85610

== ENCOUNTER → 2024-05-03 | Day surgery (SDC) | payer OTHER ==
[2024-05-03 11:51] LABS: INR 1.05 (0.83-1.09); PROTHROMBIN TIME (PATIENT) 11.8 SEC (9.7-13.0)
[2024-05-03 11:53] LABS: HEMATOCRIT 34.1 % (32.4-45.2); HEMOGLOBIN 11.3 GM/dL (10.7-15.3); MCH 30.7 pg (25.7-33.7); MCHC 33.2 g/dl (32.0-36.0); MEAN CELL VOLUME 92.7 fl (80-96); MEAN PLT VOLUME 10.5 fl (7.5-11.1); PLATELET COUNT 189 10^3/uL (134-434); RBC 3.68 M/mm3 (3.60-5.2); RDW 16.4 % (11.6-15.6); WHITE BLOOD COUNT 5.3 K/mm3 (4.0-10.0)
[2024-05-03 11:54] LABS: EOS % 1.1 % (0-4.5); MONO % 8.9 % (3.8-10.2)
== END | disposition home or self-care (01) ==
LOC: JRADIR 05:36
PROVIDERS: ATTEND Internal Medicine Nephrology
PROC: 0W9G3ZZ Drainage of Peritoneal Cavity, Percutaneous Approach (ICD-10-PCS; principal; 2024-05-03)
DX: R18.8 Other ascites (principal)
CPT/HCPCS: 36415; 49083; 76942-TC; 85025; 85610

== ENCOUNTER 2024-05-06 16:37 | Inpatient (IN) | payer OTHER ==
[2024-05-06 16:53] VITALS: BMI 32.5
[2024-05-06 18:32] LABS: BASO % 1.5 % (0-2.0); EOS % 2.3 % (0-4.5); HEMATOCRIT 31.9 % (32.4-45.2); HEMOGLOBIN 10.7 GM/dL (10.7-15.3); LYMPH % 15.4 % (8-40); MCH 30.5 pg (25.7-33.7); MCHC 33.4 g/dl (32.0-36.0); MEAN CELL VOLUME 91.2 fl (80-96); MEAN PLT VOLUME 9.6 fl (7.5-11.1); MONO % 12.2 % (3.8-10.2); NEUT % 68.6 % (42.8-82.8); PLATELET COUNT 213 10^3/uL (134-434); RDW 16.3 % (11.6-15.6); WHITE BLOOD COUNT 4.2 K/mm3 (4.0-10.0)
[2024-05-06 18:39] LABS: INR 1.07 (0.83-1.09); PROTHROMBIN TIME (PATIENT) 12.3 SEC (9.7-13.0)
[2024-05-06 18:42] LABS: ACTIVATED PTT 33.4 SECONDS (25.2-36.5)
[2024-05-06 18:57] LABS: CHLORIDE 99 mmol/L (98-107); SODIUM 135 mmol/L (136-145)
[2024-05-06 18:59] LABS: CALCIUM 8.9 mg/dL (8.5-10.1)
[2024-05-06 19:01] LABS: ALBUMIN 2.8 g/dl (3.4-5.0); BLOOD UREA NITROGEN 24.2 mg/dL (7-18); CO2 28 mmol/L (21-32); GLUCOSE,RANDOM 237 mg/dL (74-106)
[2024-05-06 19:03] LABS: CREATININE 3.5 mg/dL (0.55-1.3); SGOT/AST 54 U/L (15-37); SGPT/ALT 51 U/L (13-61)
[2024-05-06 19:04] LABS: BILIRUBIN,TOTAL 0.9 mg/dL (0.2-1); TOT PROT 7.3 g/dl (6.4-8.2)
[2024-05-06 19:07] LABS: ALK PHOS 705 U/L (45-117); ANION GAP 8 mmol/L (4-13); POTASSIUM 6.1 mmol/L (3.5-5.1)
[2024-05-06 19:55] LABS: HIV INTERPRETATION NEGATIVE (NEGATIVE)
[2024-05-06 20:17] LABS: BF WBC & OTHER NUCLEATED CELLS 452 /mm3
[2024-05-06 21:19] LABS: BODY FLUID MESOTHELIAL 14 %; BODY FLUID MONOCYTE 50 %
[2024-05-06 21:27] LABS: CALCIUM 8.8 mg/dL (8.5-10.1); POTASSIUM 5.4 mmol/L (3.5-5.1)
[2024-05-06 21:28] LABS: BLOOD UREA NITROGEN 26.5 mg/dL (7-18)
[2024-05-06 21:31] LABS: CREATININE 3.8 mg/dL (0.55-1.3)
[2024-05-06] MEDS: INSULIN ASPART SLIDING SCALE (NOVOLOG) 1 VIAL SQ SCH (23:50)
[2024-05-06] MEDS: LABETALOL HCL 200 MG TABLET (FP) PO SCH (23:50)
[2024-05-06] MEDS: ALBUMIN HUMAN 25% 100 ML VIAL IV ONE (23:50)
[2024-05-07] MEDS: ACETAMINOPHEN 1000 MG/100 ML BAG IVPB PRN (04:45)
[2024-05-07] MEDS ORDERED: MORPHINE SULFATE 2 MG/ML SYRINGE ONE (05:51)
[2024-05-07] MEDS: MORPHINE SULFATE 2 MG/ML SYRINGE IVPUSH ONE (05:58)
[2024-05-07] MEDS ORDERED: HEPARIN NA (PORCINE) 5,000 UNITS/ML 1ML VIAL ONE ×2 (06:14→14:51)
[2024-05-07] MEDS: HEPARIN NA (PORCINE) 5,000 UNITS/ML 1ML VIAL SQ SCH (06:31)
[2024-05-07 07:07] LABS: HEMATOCRIT 31.1 % (32.4-45.2); HEMOGLOBIN 10.2 GM/dL (10.7-15.3); MCH 30.5 pg (25.7-33.7); MCHC 32.8 g/dl (32.0-36.0); MEAN CELL VOLUME 92.9 fl (80-96); MEAN PLT VOLUME 9.4 fl (7.5-11.1); PLATELET COUNT 186 10^3/uL (134-434); RBC 3.35 M/mm3 (3.60-5.2); RDW 16.3 % (11.6-15.6); WHITE BLOOD COUNT 4.7 K/mm3 (4.0-10.0)
[2024-05-07 08:09] LABS: POTASSIUM 5.5 mmol/L (3.5-5.1)
[2024-05-07 08:12] LABS: ALBUMIN 2.9 g/dl (3.4-5.0); BLOOD UREA NITROGEN 33.9 mg/dL (7-18); CALCIUM 8.8 mg/dL (8.5-10.1); MAGNESIUM 2.3 mg/dL (1.8-2.4)
[2024-05-07 08:15] LABS: CREATININE 4.5 mg/dL (0.55-1.3); PHOSPHOROUS 4.7 mg/dL (2.5-4.9)
[2024-05-07 08:17] LABS: BILIRUBIN,TOTAL 0.9 mg/dL (0.2-1)
[2024-05-07] MEDS: ASPIRIN COATED 81 MG TABLET.EC PO SCH (09:00)
[2024-05-07] MEDS: FAMOTIDINE 20 MG TABLET PO SCH (09:00)
[2024-05-07] MEDS ORDERED: CIPROFLOXACIN 500 MG TABLET (RESTRICTED TO ID) PO SCH (10:00)
[2024-05-07] MEDS ORDERED: FAMOTIDINE 20 MG TABLET ONE (10:57)
[2024-05-07] MEDS: DULoxetine HCL 30 MG CAPSULE.DR PO SCH (11:05)
[2024-05-07] MEDS: CLOPIDOGREL BISULFATE 75 MG TABLET (FP) PO SCH (11:07)
[2024-05-07] MEDS: NIFEdipine E.R 60 MG TABLET PO SCH (11:07)
[2024-05-07] MEDS: BISACODYL 5 MG TABLET.DR (FP) PO ONE (16:10)
[2024-05-07] MEDS ORDERED: SODIUM CHLORIDE 250 ML IV PRN (20:08)
[2024-05-07] MEDS: CEFAZOLIN 1 GM/D5W 1 GM/50 ML BAG IVPB SCH (21:30)
[2024-05-08] MEDS: ALBUMIN HUMAN 25% 12.5 GM/50 ML VIAL IV SCH (10:01)
[2024-05-08] MEDS: CEFTRIAXONE 2 GM-D5W BAG 2 GM/50 ML BAG IVPB SCH (16:22)
[2024-05-08] MEDS ORDERED: INSULIN ASPART SLIDING SCALE (NOVOLOG) 1 VIAL SQ ONE (16:50)
[2024-05-08 17:11] LABS: BODY FLUID ALBUMIN 2.5 g/dL (Not Estab.)
[2024-05-09] MEDS ORDERED: SODIUM CHLORIDE 250 ML IV PRN (09:47)
[2024-05-09 13:02] LABS: HEMATOCRIT 34.2 % (32.4-45.2); HEMOGLOBIN 11.2 GM/dL (10.7-15.3); MCH 30.5 pg (25.7-33.7); MCHC 32.6 g/dl (32.0-36.0); MEAN CELL VOLUME 93.4 fl (80-96); MEAN PLT VOLUME 9.9 fl (7.5-11.1); PLATELET COUNT 161 10^3/uL (134-434); RBC 3.66 M/mm3 (3.60-5.2); RDW 16.6 % (11.6-15.6); WHITE BLOOD COUNT 3.9 K/mm3 (4.0-10.0)
[2024-05-09 13:33] LABS: BLOOD UREA NITROGEN 35.1 mg/dL (7-18)
[2024-05-09 13:36] LABS: CREATININE 4.4 mg/dL (0.55-1.3)
[2024-05-09 14:04] VITALS: BP 143/65; PULSE 64; RESP 18; TEMP 97.8
== END 2024-05-09 15:30 | disposition left against medical advice (07) | DRG 947 ==
LOC: JER 16:37 → JERBED 21:27 → OBSVTOIN 21:27 → J4S 05-07 20:29
PROVIDERS: ADMIT Internal Medicine; ATTEND Internal Medicine
PROC: 0W9G3ZZ Drainage of Peritoneal Cavity, Percutaneous Approach (ICD-10-PCS; principal; 2024-05-06)
PROC: 5A1D70Z Performance of Urinary Filtration, Intermittent, Less than 6 Hours Per Day (ICD-10-PCS; 2024-05-08)
DX: R18.8 Other ascites (principal); N18.6 End stage renal disease; I13.2 Hypertensive heart and chronic kidney disease with heart failure and with stage 5 chronic kidney disease, or end stage renal disease; I50.30 Unspecified diastolic (congestive) heart failure; E11.22 Type 2 diabetes mellitus with diabetic chronic kidney disease; E11.43 Type 2 diabetes mellitus with diabetic autonomic (poly)neuropathy; I25.10 Atherosclerotic heart disease of native coronary artery without angina pectoris; E78.5 Hyperlipidemia, unspecified; E87.5 Hyperkalemia; E87.70 Fluid overload, unspecified; Z99.2 Dependence on renal dialysis; E11.65 Type 2 diabetes mellitus with hyperglycemia
CPT/HCPCS: 0241U-QW; 36415; 49083; 71045-TC-FY; 71250-TC; 80048; 80053; 82042; 82150; 82945; 82962; 83036; 83615; 83735; 83880; 83986; 84100; 84157; 84484; 85025; 85027; 85610; 85730; 86803; 86850; 86900; 86901; 87070; 87075; 87205; 87340; 87389; 93005; 93010; 93975; 99285-25; J0131; J1644

== ENCOUNTER → 2024-05-21 | Day surgery (SDC) | payer OTHER | END | disposition home or self-care (01) | LOC: JRADIR 05:00 | PROVIDERS: ATTEND Internal Medicine Nephrology | PROC: 0W9G3ZZ Drainage of Peritoneal Cavity, Percutaneous Approach (ICD-10-PCS; principal; 2024-05-21) | DX: R18.8 Other ascites (principal) | CPT/HCPCS: 76942-TC ==

== ENCOUNTER → 2024-06-06 | Day surgery (SDC) | payer OTHER | END | disposition home or self-care (01) | LOC: JRADIR 10:42 | PROVIDERS: ATTEND Internal Medicine Nephrology | PROC: 0W9G3ZZ Drainage of Peritoneal Cavity, Percutaneous Approach (ICD-10-PCS; principal; 2024-06-06) | DX: R18.8 Other ascites (principal) | CPT/HCPCS: 49083; 76942-TC ==

== ENCOUNTER → 2024-07-02 | Day surgery (SDC) | payer OTHER ==
[2024-07-02 11:27] LABS: INR 1.12 (0.83-1.09); PROTHROMBIN TIME (PATIENT) 12.2 SEC (9.7-13.0)
[2024-07-02 11:28] LABS: BASO % 1.3 % (0-2.0); EOS % 2.1 % (0-4.5); HEMATOCRIT 33.9 % (32.4-45.2); HEMOGLOBIN 11.3 GM/dL (10.7-15.3); LYMPH % 15.3 % (8-40); MCH 30.6 pg (25.7-33.7); MCHC 33.3 g/dl (32.0-36.0); MEAN CELL VOLUME 91.8 fl (80-96); MEAN PLT VOLUME 9.1 fl (7.5-11.1); MONO % 10.8 % (3.8-10.2); NEUT % 70.5 % (42.8-82.8); PLATELET COUNT 209 10^3/uL (134-434); RBC 3.69 M/mm3 (3.60-5.2); RDW 16.2 % (11.6-15.6); WHITE BLOOD COUNT 4.6 K/mm3 (4.0-10.0)
== END | disposition home or self-care (01) ==
LOC: JRADIR 10:46
PROVIDERS: ATTEND Internal Medicine Nephrology
PROC: 0W9G3ZZ Drainage of Peritoneal Cavity, Percutaneous Approach (ICD-10-PCS; principal; 2024-07-02)
DX: R18.8 Other ascites (principal)
CPT/HCPCS: 36415; 49083; 76942-TC; 85025; 85610

== ENCOUNTER → 2024-07-25 | Day surgery (SDC) | payer OTHER | END | disposition home or self-care (01) | LOC: JRADIR 10:46 | PROVIDERS: ATTEND Internal Medicine Nephrology | PROC: 0W9G3ZZ Drainage of Peritoneal Cavity, Percutaneous Approach (ICD-10-PCS; principal; 2024-07-25) | DX: R18.8 Other ascites (principal) | CPT/HCPCS: 49082; 76942-TC ==

== ENCOUNTER 2024-07-26 14:55 | Inpatient (IN) | payer OTHER ==
[2024-07-26] MEDS ORDERED: ACETAMINOPHEN 325 MG TABLET (FP) ONE (16:47)
[2024-07-26] MEDS: ACETAMINOPHEN 325 MG TABLET (FP) PO ONE (16:54)
[2024-07-26 17:05] LABS: POTASSIUM 5.6 mmol/L (3.5-5.1)
[2024-07-26 17:08] LABS: ALBUMIN 2.8 g/dl (3.4-5.0); BLOOD UREA NITROGEN 62.9 mg/dL (7-18); MAGNESIUM 2.4 mg/dL (1.8-2.4)
[2024-07-26 17:11] LABS: CREATININE 5.6 mg/dL (0.55-1.3)
[2024-07-26 17:12] LABS: PHOSPHOROUS 5.2 mg/dL (2.5-4.9)
[2024-07-26 17:13] LABS: TOT PROT 7.5 g/dl (6.4-8.2)
[2024-07-26 17:56] LABS: ABSOLUTE IMMATURE GRANULOCYTES 0.03 x10^3/uL (0.0-0.031); BASOPHILS # 0.06 x10^3/uL (0.01-0.08); EOSINOPHIL % 2.3 % (0.7-5.8); EOSINOPHILS # 0.16 x10^3/uL (0.04-0.36); HEMATOCRIT 28.4 % (34.1-44.9); HEMOGLOBIN 9.3 g/dL (11.2-15.7); MCHC 32.7 g/dl (32.2-35.5); MEAN CELL VOLUME 90.2 fl (79.4-94.8); MEAN PLT VOLUME 10.7 fl (9.4-12.3); MONOCYTE # 0.83 x10^3/uL (0.24-0.86); MONOCYTE % 11.7 % (4.7-12.5); PLATELET COUNT 211 x10^3/uL (182-369); RDW 15.3 % (12.3-16.6)
[2024-07-26 18:03] LABS: INR 1.13 (0.83-1.09); PROTHROMBIN TIME (PATIENT) 12.3 SEC (9.7-13.0)
[2024-07-26 18:05] LABS: ACTIVATED PTT 31.7 SECONDS (25.2-36.5)
[2024-07-26 18:19] LABS: POTASSIUM 4.7 mmol/L (3.5-5.1)
[2024-07-26 18:21] LABS: ALBUMIN 2.7 g/dl (3.4-5.0); CALCIUM 8.7 mg/dL (8.5-10.1)
[2024-07-26 18:22] LABS: BLOOD UREA NITROGEN 65.3 mg/dL (7-18); MAGNESIUM 2.3 mg/dL (1.8-2.4)
[2024-07-26 18:24] LABS: CREATININE 5.7 mg/dL (0.55-1.3); PHOSPHOROUS 5.1 mg/dL (2.5-4.9)
[2024-07-26 18:26] LABS: BILIRUBIN,TOTAL 0.9 mg/dL (0.2-1); TOT PROT 6.9 g/dl (6.4-8.2)
[2024-07-26] MEDS ORDERED: diphenhydrAMINE HCL 25 MG CAPSULE (FP) PO ONE (18:47)
[2024-07-26] MEDS: diphenhydrAMINE HCL 25 MG CAPSULE (FP) PO ONE (18:56)
[2024-07-26] MEDS: HEPARIN NA (PORCINE) 5,000 UNITS/ML 1ML VIAL SQ SCH (22:35)
[2024-07-26] MEDS: INSULIN ASPART SLIDING SCALE (NOVOLOG) 1 VIAL SQ SCH (22:35)
[2024-07-26] MEDS: ACETAMINOPHEN 1000 MG/100 ML BAG IVPB PRN (23:57)
[2024-07-27] MEDS: diphenhydrAMINE HCL 25 MG CAPSULE (FP) PO ONE (00:32)
[2024-07-27] MEDS ORDERED: NICOTINE POLACRILEX 4 MG GUM BUC PRN (00:59)
[2024-07-27] MEDS ORDERED: NICOTINE POLACRILEX 2 MG GUM BUC PRN (01:01)
[2024-07-27] MEDS: hydrOXYzine PAMOATE 25 MG CAPSULE (FP) PO ONE (02:57)
[2024-07-27] MEDS: hydrALAZINE HCL 50 MG TABLET (FP) PO SCH (05:57)
[2024-07-27] MEDS: PANTOPRAZOLE 40 MG TABLET PO SCH (06:00)
[2024-07-27] MEDS: SEVELAMER CARBONATE 800 MG TAB (FP) PO SCH (08:14)
[2024-07-27] MEDS: ALBUTEROL SO4 2.5/IPRATROPIUM 0.5 INH SOL 3 ML VIAL.NEB. NEB SCH (08:19)
[2024-07-27 08:57] LABS: ABSOLUTE IMMATURE GRANULOCYTES 0.01 x10^3/uL (0.0-0.031); BASOPHILS # 0.06 x10^3/uL (0.01-0.08); EOSINOPHIL % 3.4 % (0.7-5.8); HEMATOCRIT 30.8 % (34.1-44.9); HEMOGLOBIN 9.9 g/dL (11.2-15.7); MCHC 32.1 g/dl (32.2-35.5); MEAN CELL VOLUME 91.1 fl (79.4-94.8); MEAN PLT VOLUME 11.2 fl (9.4-12.3); MONOCYTE # 0.65 x10^3/uL (0.24-0.86); PLATELET COUNT 222 x10^3/uL (182-369); RDW 15.5 % (12.3-16.6)
[2024-07-27 09:15] LABS: POTASSIUM 5.1 mmol/L (3.5-5.1)
[2024-07-27 09:19] LABS: BLOOD UREA NITROGEN 75.4 mg/dL (7-18); CALCIUM 9.4 mg/dL (8.5-10.1)
[2024-07-27 09:21] LABS: MAGNESIUM 2.3 mg/dL (1.8-2.4)
[2024-07-27 09:23] LABS: CREATININE 6.6 mg/dL (0.55-1.3); PHOSPHOROUS 6.2 mg/dL (2.5-4.9)
[2024-07-27 09:24] LABS: BILIRUBIN,TOTAL 1.1 mg/dL (0.2-1); TOT PROT 7.8 g/dl (6.4-8.2)
[2024-07-27] MEDS: ASPIRIN COATED 81 MG TABLET.EC PO SCH (10:39)
[2024-07-27] MEDS: LOSARTAN POTASSIUM 50 MG TABLET PO SCH (10:39)
[2024-07-27] MEDS: DULoxetine HCL 30 MG CAPSULE.DR PO SCH (10:39)
[2024-07-27] MEDS: LABETALOL HCL 200 MG TABLET (FP) PO SCH (10:39)
[2024-07-27] MEDS: ISOSORBIDE MONONITRATE 60 MG TAB.SR.24H (FP) PO SCH (10:40)
[2024-07-27] MEDS: diphenhydrAMINE HCL 25 MG CAPSULE (FP) PO PRN (11:55)
[2024-07-27 12:46] VITALS: BMI 35.5
[2024-07-27] MEDS ORDERED: SODIUM CHLORIDE 250 ML IV PRN (13:48)
[2024-07-27] MEDS: EPOETIN ALFA-EPBX 3,000 UNIT/ML VIAL IVPUSH ONE ×2 (14:39→14:42)
[2024-07-28 09:31] LABS: ABSOLUTE IMMATURE GRANULOCYTES 0.01 x10^3/uL (0.0-0.031); BASOPHILS # 0.06 x10^3/uL (0.01-0.08); EOSINOPHIL % 3.3 % (0.7-5.8); EOSINOPHILS # 0.18 x10^3/uL (0.04-0.36); HEMATOCRIT 28.9 % (34.1-44.9); HEMOGLOBIN 9.3 g/dL (11.2-15.7); MCHC 32.2 g/dl (32.2-35.5); MEAN CELL VOLUME 92.3 fl (79.4-94.8); MEAN PLT VOLUME 11.2 fl (9.4-12.3); MONOCYTE # 0.74 x10^3/uL (0.24-0.86); MONOCYTE % 13.7 % (4.7-12.5); PLATELET COUNT 197 x10^3/uL (182-369); RDW 15.6 % (12.3-16.6)
[2024-07-28 09:50] LABS: POTASSIUM 4.4 mmol/L (3.5-5.1)
[2024-07-28 10:04] LABS: ALBUMIN 2.8 g/dl (3.4-5.0); BLOOD UREA NITROGEN 60.7 mg/dL (7-18); CALCIUM 9.1 mg/dL (8.5-10.1); MAGNESIUM 2.2 mg/dL (1.8-2.4)
[2024-07-28 10:07] LABS: CREATININE 5.4 mg/dL (0.55-1.3)
[2024-07-28 10:08] LABS: PHOSPHOROUS 5.3 mg/dL (2.5-4.9)
[2024-07-28 10:09] LABS: BILIRUBIN,TOTAL 1.1 mg/dL (0.2-1); TOT PROT 7.2 g/dl (6.4-8.2)
[2024-07-28] MEDS: FUROSEMIDE 40 MG/4 ML INJECTABLE VIAL IVPB SCH (10:13)
[2024-07-28] MEDS ORDERED: predniSONE 20 MG TABLET (UD) PO SCH (10:30)
[2024-07-28] MEDS: BUDESONIDE 0.5 MG/2 ML INH SUSP VIAL NEB SCH (11:16)
[2024-07-28] MEDS: predniSONE 40 MG, predniSONE 10 MG PO SCH (11:33)
[2024-07-28] MEDS: INSULIN ASPART SLIDING SCALE (NOVOLOG) 1 VIAL SQ SCH (11:56)
[2024-07-28] MEDS: FUROSEMIDE 40 MG/4 ML INJECTABLE VIAL IVPUSH ONE (18:37)
[2024-07-28] MEDS: INSULIN GLARGINE (LANTUS) 100 UNITS/ML UNITS SQ SCH (22:47)
[2024-07-29] MEDS: METOCLOPRAMIDE HCL INJECTION 10 MG/2 ML VIAL IVPUSH ONE (08:31)
[2024-07-29 09:10] LABS: ABSOLUTE IMMATURE GRANULOCYTES 0.02 x10^3/uL (0.0-0.031); BASOPHILS # 0.04 x10^3/uL (0.01-0.08); EOSINOPHIL % 0.4 % (0.7-5.8); EOSINOPHILS # 0.02 x10^3/uL (0.04-0.36); HEMATOCRIT 30.2 % (34.1-44.9); HEMOGLOBIN 9.6 g/dL (11.2-15.7); MCHC 31.8 g/dl (32.2-35.5); MEAN CELL VOLUME 93.2 fl (79.4-94.8); MONOCYTE # 0.61 x10^3/uL (0.24-0.86); MONOCYTE % 10.8 % (4.7-12.5); PLATELET COUNT 223 x10^3/uL (182-369); RDW 15.6 % (12.3-16.6)
[2024-07-29 09:29] LABS: POTASSIUM 4.7 mmol/L (3.5-5.1)
[2024-07-29 09:35] LABS: BLOOD UREA NITROGEN 70.4 mg/dL (7-18); MAGNESIUM 2.3 mg/dL (1.8-2.4)
[2024-07-29 09:39] LABS: CREATININE 6.2 mg/dL (0.55-1.3); PHOSPHOROUS 6.2 mg/dL (2.5-4.9)
[2024-07-29 09:42] LABS: TOT PROT 7.6 g/dl (6.4-8.2)
[2024-07-29] MEDS: EPOETIN ALFA-EPBX 3,000 UNIT/ML VIAL IVPUSH ONE (11:04)
[2024-07-29] MEDS ORDERED: SODIUM CHLORIDE 250 ML IV PRN (12:00)
[2024-07-29] MEDS: TRIMETHOBENZAMIDE HCL 200MG/2ML INJ IM ONE (18:52)
[2024-07-30] MEDS: METOCLOPRAMIDE HCL INJECTION 10 MG/2 ML VIAL IVPUSH ONE (01:36)
[2024-07-30] MEDS ORDERED: hydrALAZINE HCL 20 MG/ML VIAL IVPUSH ONE (05:05)
[2024-07-30 10:07] LABS: HEMATOCRIT 30.5 % (34.1-44.9); HEMOGLOBIN 9.7 g/dL (11.2-15.7); MCHC 31.8 g/dl (32.2-35.5); MEAN CELL VOLUME 94.1 fl (79.4-94.8); MEAN PLT VOLUME 11.1 fl (9.4-12.3); PLATELET COUNT 207 x10^3/uL (182-369); RDW 15.8 % (12.3-16.6)
[2024-07-30 10:33] LABS: BLOOD UREA NITROGEN 46.7 mg/dL (7-18)
[2024-07-30 10:36] LABS: CREATININE 4.8 mg/dL (0.55-1.3)
[2024-07-30 10:39] VITALS: RESP 18
[2024-07-30 15:05] VITALS: BP 164/79; PULSE 73; TEMP 97.5
== END 2024-07-30 15:49 | disposition home or self-care (01) | DRG 640 ==
LOC: JER 14:55 → JERBED 19:51 → J5S 20:47 → OBSVTOIN 07-28 07:57
PROVIDERS: ADMIT Hospitalist
PROC: 5A1D70Z Performance of Urinary Filtration, Intermittent, Less than 6 Hours Per Day (ICD-10-PCS; principal; 2024-07-29)
DX: E87.70 Fluid overload, unspecified (principal); N18.6 End stage renal disease; I50.32 Chronic diastolic (congestive) heart failure; I13.2 Hypertensive heart and chronic kidney disease with heart failure and with stage 5 chronic kidney disease, or end stage renal disease; J96.11 Chronic respiratory failure with hypoxia; R18.8 Other ascites; Z99.2 Dependence on renal dialysis
CPT/HCPCS: 0241U-QW; 36415; 70450-TC; 71045-TC-FY; 80048; 80053; 82140; 82962; 83735; 83880; 84100; 84484; 85025; 85027; 85610; 85730; 93005; 93010; 93970-TC; 94640; 97116-GP; 97162-GP; 99285-25; G0378; J0131; J1644; Q5106

== ENCOUNTER → 2024-09-05 | Day surgery (SDC) | payer OTHER ==
[2024-09-05 13:21] LABS: ABSOLUTE IMMATURE GRANULOCYTES 0.02 x10^3/uL (0.0-0.031); BASOPHILS # 0.06 x10^3/uL (0.01-0.08); EOSINOPHIL % 1.6 % (0.7-5.8); EOSINOPHILS # 0.08 x10^3/uL (0.04-0.36); HEMATOCRIT 32.2 % (34.1-44.9); HEMOGLOBIN 10.3 g/dL (11.2-15.7); MEAN CELL VOLUME 94.7 fl (79.4-94.8); MEAN PLT VOLUME 11.7 fl (9.4-12.3); MONOCYTE # 0.61 x10^3/uL (0.24-0.86); MONOCYTE % 12.1 % (4.7-12.5); PLATELET COUNT 207 x10^3/uL (182-369); RDW 15.8 % (12.3-16.6)
[2024-09-05 13:22] LABS: INR 1.18 (0.83-1.09); PROTHROMBIN TIME (PATIENT) 12.9 SEC (9.7-13.0)
== END | disposition home or self-care (01) ==
LOC: JRADIR 12:31
PROVIDERS: ATTEND Internal Medicine Nephrology
PROC: 0W9G3ZZ Drainage of Peritoneal Cavity, Percutaneous Approach (ICD-10-PCS; principal; 2024-09-05)
DX: R18.8 Other ascites (principal)
CPT/HCPCS: 36415; 49083; 76942-TC; 85025; 85610